=== PATIENT | female | born 1950 | race African-American/Black ===

== ENCOUNTER 2021-10-19 10:04 | Outpatient (CLI) | payer BC, SELFPAY | END 2021-10-19 10:05 | disposition home or self-care (01) | LOC: AMB 11-04 08:54 | PROVIDERS: Visit Provider Family Medicine | DX: S09.90XA Unspecified injury of head, initial encounter (principal); H53.8 Other visual disturbances; W06.XXXA Fall from bed, initial encounter; Y92.092 Bedroom in other non-institutional residence as the place of occurrence of the external cause | CPT/HCPCS: A0425; A0427 ==

== ENCOUNTER 2021-10-19 10:32 | Emergency (ER) | payer BC, SELFPAY ==
--- NOTE | 2021-10-19 | CRLHL7_ITS ---
For Patients: As a result of the Century Cures Act, medical imaging exams and procedure reports are released immediately into your electronic medical record. You may view this report before your referring provider. If you have questions, please contact your health care provider. INDICATION: FALL, HIT HEAD COMPARISON: none TECHNIQUE: A CT volumetric acquisition was performed of the brain without IV contrast. Please note that all CT scans at this facility use dose modulation, iterative reconstruction, and/or weight-based dosing when appropriate to reduce radiation dose to as low as reasonably achievable. FINDINGS: Scalp hematoma noted along the right posterior parietal skull. No underlying fracture. No intracranial hemorrhage. No hydrocephalus or midline shift. Mild patchy areas of decreased attenuation in the white matter, chronic. Vascular calcifications. Sinuses clear. Secretions in the posterior oropharynx. IMPRESSION: Right posterior scalp hematoma. No fracture or intracranial hemorrhage. Please note that all CT scans at this facility use dose modulation, iterative reconstruction, and/or weight-based dosing when appropriate to reduce radiation dose to as low as reasonably achievable. Dictated by Edward Sherwood MD @ 10/19/2021 11:17:13 AM (Electronically Signed)
--- NOTE | 2021-10-19 | CRLHL7_ITS ---
For Patients: As a result of the Century Cures Act, medical imaging exams and procedure reports are released immediately into your electronic medical record. You may view this report before your referring provider. If you have questions, please contact your health care provider. INDICATION: FALL, HIT Head TECHNIQUE: CT cervical spine without contrast. COMPARISON: None FINDINGS: There is no cervical vertebral body fracture. Multilevel degenerative disc disease and facet degeneration. Straightening of the normal lordosis. Normal C1-2 relationship. No cervical adenopathy or apical pneumothorax. IMPRESSION: No cervical spine fracture. Please note that all CT scans at this facility use dose modulation, iterative reconstruction, and/or weight-based dosing when appropriate to reduce radiation dose to as low as reasonably achievable. Dictated by Edward Sherwood MD @ 10/19/2021 11:25:33 AM (Electronically Signed)
[2021-10-19 10:50] VITALS: BP 182/108; PULSE 96; RESP 18; TEMP 36; O2SAT 96; BMI 36.9
[2021-10-19 10:55] VITALS: BP 142/96; PULSE 96; RESP 18; O2SAT 96
[2021-10-19 11:00] VITALS: BP 153/102; PULSE 92; RESP 18; O2SAT 96
[2021-10-19 11:15] VITALS: BP 156/105; PULSE 93; RESP 18; O2SAT 96
[2021-10-19 11:30] VITALS: BP 156/100; PULSE 86; RESP 18; O2SAT 96
[2021-10-19] MEDS: OxyCODONE/APAP 5-325 TABLET 2 TAB PO (11:52)
--- NOTE | 2021-10-19 11:56 | ED_ITS ---
HPI - Fall General Date Seen: 10/19/21 Chief Complaint: Fall/Minor Trauma Stated Complaint: Fall Time Seen by Provider: 10/19/21 10:46 Source: patient Mode of arrival: EMS Limitations: no limitations History of Present Illness HPI Narrative: Patient is a 71-year-old female from [place] fell or slipped out of her bed last night. At approximately 11:00 p.m.. Hitting right side of her head against a table. There is no loss of consciousness, and she did not want to be seen last night despite staff asking her to be seen. No loss of consciousness, but today there were worried about her pupils being unequal, and she has a little bit more tired than normal. She is brought in by EMS for an assessment. She denies that she is more tired than normal and actually just wants oxycodone here. For her pain in fact she told me she did get the oxycodone she was going to leave. She denies any numbness tingling weakness, there is no neck injury, complaint: fall Onset (ago): hour(s) Fall from: standing Fall witnessed: no Place fall occurred: [facility] Loss of consciousness: No Prolonged down time: no Symptoms prior to fall: none Context: tripped/slipped Location of injury: head Quality: stabbing Associated symptoms (after fall): denies Related Data Home Medications Medication Instructions Recorded Confirmed acetaminophen 500 mg tablet 500 mg PO Q8H 10/19/21 10/19/21 amlodipine 5 mg tablet 5 mg PO DAILY 10/19/21 10/19/21 aspirin 81 mg tablet,delayed 81 mg PO DAILY 10/19/21 10/19/21 release dorzolamide 22.3 mg-timolol 6.8 ophthalmic (eye) 10/19/21 mg/mL eye drops duloxetine 60 mg capsule,delayed mg PO 10/19/21 release famotidine 20 mg tablet mg 10/19/21 fluticasone propionate 50 intranasal 10/19/21 mcg/actuation nasal spray,suspension gabapentin 600 mg tablet mg 10/19/21 hydrochlorothiazide 25 mg tablet mg 10/19/21 insulin aspart U-100 100 unit/mL subcut 10/19/21 (3 mL) subcutaneous pen insulin glargine 100 unit/mL (3 unit subcut 08/02/22 mL) subcutaneous pen (Lantus Solostar U-100 Insulin) latanoprost 0.005 % eye drops drp ophthalmic (eye) 10/19/21 lorazepam 0.5 mg tablet mg 10/19/21 nicotine (polacrilex) 2 mg gum mg 10/19/21 oxybutynin chloride 5 mg mg PO 10/19/21 tablet,extended release 24 hr oxycodone 5 mg tablet mg 10/19/21 pantoprazole 40 mg tablet,delayed mg PO 10/19/21 release risperidone 2 mg tablet mg 10/19/21 Allergies Allergy/AdvReac Type Severity Reaction Status Date / Time aspirin Allergy Verified 10/19/21 10:44 bee venom protein (honey bee) Allergy Verified 10/19/21 10:44 ketorolac [From Toradol] Allergy Verified 10/19/21 10:44 losartan Allergy Verified 10/19/21 10:44 NSAIDS (Non-Steroidal Allergy Verified 10/19/21 10:44 Anti-Inflamma Penicillins Allergy Verified 10/19/21 10:44 tramadol Allergy Verified 10/19/21 10:44 varenicline Allergy Verified 10/19/21 10:44 Review of Systems Status of ROS: Reports: 10 or more systems reviewed and unremarkable except as noted in History and below [facility] Social History Smoking Status: Never smoker Do you use any of these nicotine containing products: None Second hand tobacco smoke exposure: No How often do you have a drink containing alcohol: never How often do you have six or more drinks on one occasion: Never AUDIT-C Alcohol total score: 0 Non-prescribed substance use: denies use service: No Exam Narrative: Exam Narrative: Patient is in no apparent distress lying in the room in stable 1. She is able to open her eyes and she clearly has had previous eye surgery/glaucoma surgery. Her left pupil is slightly bigger than her right, but both are reactive to light. Her TMs are normal, oropharynx is normal there is no midfacial tenderness. Her neck is supple full range of motion is listed in flexion extension with no tenderness she is however tender over her right septal region with hematoma noted. Within her Afro. Chest is clear heart sounds are normal she moves all extremities independently and well her thoracic and lumbar spine palpate normally but sitting her up causes her back pain which she has tells me is chronic. Abdomen is soft there is no guarding no past with no megaly she moves all extremities independently and well. Const: Vital Signs, click to edit/add: Vital Signs - 24 hr 10/19/21 10:50 10/19/21 11:00 10/19/21 11:15 Temperature 96.8 F L Pulse Rate [Left P ulse Oximeter] 96 92 93 Respiratory Rate 18 18 18 Blood Pressure [Le ft Upper Arm] 182/108 H 153/102 H 156/105 H Pulse Oximetry 96 96 96 Oxygen Delivery Me thod Room Air Room Air Room Air 10/19/21 11:30 10/19/21 10:55 Temperature Pulse Rate [Left P ulse Oximeter] 86 96 Respiratory Rate 18 18 Blood Pressure [Le ft Upper Arm] 156/100 H 142/96 H Pulse Oximetry 96 96 Oxygen Delivery Me thod Room Air Room Air Documenting provider has reviewed patient's vital signs: yes Course Vital Signs Vital signs: Initial Vital Signs Temperature 96.8 F L 10/19/21 10:50 Temperature Source Temporal Artery Scan 10/19/21 10:50 Pulse Rate 96 10/19/21 10:50 Pulse Rhythm 10/19/21 10:50 Pulse Strength 3+ Normal 10/19/21 10:50 Respiratory Rate 18 10/19/21 10:50 Blood Pressure 182/108 H 10/19/21 10:50 Blood Pressure Mean 132 10/19/21 10:50 Pulse Oximetry 96 10/19/21 10:50 Oxygen Delivery Method 10/19/21 10:50 Vital Signs Temperature 96.8 F L 10/19/21 10:50 Pulse Rate 96 10/19/21 10:50 Respiratory Rate 18 10/19/21 10:50 Blood Pressure 182/108 H 10/19/21 10:50 Pulse Oximetry 96 10/19/21 10:50 Oxygen Delivery Method 10/19/21 10:50 Temperature 96.8 F L 10/19/21 10:50 Pulse Rate 86 10/19/21 11:30 Respiratory Rate 18 10/19/21 11:30 Blood Pressure 156/100 H 10/19/21 11:30 Pulse Oximetry 96 10/19/21 11:30 Oxygen Delivery Method 10/19/21 11:30 MDM - Fall MDM Narrative Medical decision making narrative: Patient is seen for a head injury, injury now is at least 12 hours old. She is doing otherwise well. Her head CT look normal. I did consider other possibilit ies Life-threatening differential diagnosis is considered include: Subarachnoid hemorrhage, subdural hemorrhage, epidural hemorrhage. Other differential diagnosis considered include concussion, closed head injury, or neck fracture. These seem all stable at this present time we can discharge her back to her living facility, Medical Records Attestation: I reviewed the patient's medical records. Lab Data Attestation: I reviewed the patient's lab results. Imaging Data CT scan - head: My impression: No acute Radiologist's impression: Patient: EMILEE GALVEZ Facility:?[facility] Patient ID:?[id number] Site Patient ID:?[id number]. Site :?[id number] Study:?CT Spine Cervical W/O-10/19/2021 10:48:45 AM Ordering Physician:Gayla Thompson Final Report: INDICATION: FALL, HIT Head TECHNIQUE: CT cervical spine without contrast. COMPARISON: None FINDINGS: There is no cervical vertebral body fracture. Multilevel degenerative disc disease and facet degeneration. Straightening of the normal lordosis. Normal C1- 2 relationship. No cervical adenopathy or apical pneumothorax. IMPRESSION: No cervical spine fracture. Please note that all CT scans at this facility use dose modulation, iterative reconstruction, and/or weight-based dosing when appropriate to reduce radiation dose to as low as reasonably achievable. Dictated by Edward Sherwood MD @ 10/19/2021 11:25:33 AM (Electronic Signature) Patient: EMILEE GALVEZ Facility:?[facility] Patient ID:?[id number] Site Patient ID:?[id number]. Site :?[id number] Study:?CT Head W/O-10/19/2021 10:49:42 AM Ordering Physician:?Sonny Thompson Final Report: INDICATION: FALL, HIT HEAD COMPARISON: none TECHNIQUE: A CT volumetric acquisition was performed of the brain without IV contrast. Please note that all CT scans at this facility use dose modulation, iterative reconstruction, and/or weight-based dosing when appropriate to reduce radiation dose to as low as reasonably achievable. FINDINGS: Scalp hematoma noted along the right posterior parietal skull. No underlying fracture. No intracranial hemorrhage. No hydrocephalus or midline shift. Mild patchy areas of decreased attenuation in the white matter, chronic. Vascular calcifications. Sinuses clear. Secretions in the posterior oropharynx. IMPRESSION: Right posterior scalp hematoma. No fracture or intracranial hemorrhage. Please note that all CT scans at this facility use dose modulation, iterative reconstruction, and/or weight-based dosing when appropriate to reduce radiation dose to as low as reasonably achievable. Dictated by Edward Sherwood MD @ 10/19/2021 11:17:13 AM (Electronic Signature) Discharge Plan Discharge Clinical Impression: Hematoma Chronic back pain Qualifiers: Back pain location: low back pain Back pain laterality: unspecified Sciatica presence: unspecified whether sciatica present Qualified Code(s): M54.50 - Low back pain, unspecified Head injury Qualifiers: Encounter type: initial encounter Qualified Code(s): S09.90XA - Unspecified injury of head, initial encounter Patient Disposition: Home w/ Parent or Adult Condition: Stable Additional Instructions: Home rest discussed with patient CT scan was normal. Continue with normal activities, be careful, ice to head, Tylenol for discomfort, follow up as needed. Prescriptions: No Action acetaminophen 500 mg tablet 500 mg PO Q8H amlodipine 5 mg tablet 5 mg PO DAILY aspirin 81 mg tablet,delayed release (DR/EC) 81 mg PO DAILY latanoprost 0.005 % drops OPHTHALMIC (EYE) gabapentin 600 mg tablet nicotine (polacrilex) 2 mg gum risperidone 2 mg tablet famotidine 20 mg tablet lorazepam 0.5 mg tablet pantoprazole 40 mg tablet,delayed release (DR/EC) PO oxybutynin chloride 5 mg tablet extended release 24 hr PO dorzolamide-timolol 22.3-6.8 mg/mL drops OPHTHALMIC (EYE) hydrochlorothiazide 25 mg tablet fluticasone propionate 50 mcg/actuation spray,suspension INTRANASAL oxycodone 5 mg tablet insulin aspart U-100 100 unit/mL (3 mL) insulin pen SUBCUT duloxetine 60 mg capsule,delayed release(DR/EC) PO insulin glargine [Lantus Solostar U-100 Insulin] 100 unit/mL (3 mL) insulin pen SUBCUT Stand Alone Forms: [facility] Info Instructions
== END 2021-10-19 12:03 | disposition home or self-care (01) ==
LOC: ED 12:02
PROVIDERS: Emergency Provider Family Medicine
DX: S00.93XA Contusion of unspecified part of head, initial encounter (principal); M54.50 Low back pain, unspecified; W18.00XA Striking against unspecified object with subsequent fall, initial encounter
CPT/HCPCS: 70450; 72125; 99284; 99291; A9270; G0390

== ENCOUNTER 2021-12-09 19:14 | Outpatient (CLI) | payer BC, SELFPAY | END 2021-12-09 19:15 | disposition home or self-care (01) | LOC: AMB 01-07 10:26 | PROVIDERS: Visit Provider Family Medicine | DX: G89.29 Other chronic pain (principal); M54.9 Dorsalgia, unspecified | CPT/HCPCS: A0425; A0429 ==

== ENCOUNTER 2021-12-09 19:31 | Emergency (ER) | payer BC, SELFPAY ==
[2021-12-09 19:47] VITALS: BP 118/66; PULSE 94; RESP 20; O2SAT 99
[2021-12-09 20:47] VITALS: RESP 18; O2SAT 99
--- NOTE | 2021-12-09 21:06 | ED.BACK ---
HPI - Back Pain/Injury General Date Seen: 12/09/21 Chief Complaint: Unspecified Complaint, Adult Stated Complaint: Pain Time Seen by Provider: 12/09/21 19:56 Source: patient Mode of arrival: EMS Limitations: no limitations History of Present Illness HPI Narrative: Patient is the resident [facility] suffers from chronic pain, she has been out of her oxycodone now for 2 days, she presents here for help in regards to her pain. Her her doctor never called her prescription in. In checking the [facility] website she got 30 tablets of oxycodone last on 11/05/2021. She denies any nausea vomiting, there has been no abdominal pain, chest pain, fevers chills, no history of falls or injury, MD elicited complaint: back pain Pertinent past history: prior back pain Related Data Home Medications Medication Instructions Recorded Confirmed acetaminophen 500 mg tablet 500 mg PO Q8H 10/19/21 10/19/21 amlodipine 5 mg tablet 5 mg PO DAILY 10/19/21 10/19/21 aspirin 81 mg tablet,delayed 81 mg PO DAILY 10/19/21 10/19/21 release dorzolamide 22.3 mg-timolol 6.8 ophthalmic (eye) 10/19/21 mg/mL eye drops duloxetine 60 mg capsule,delayed mg PO 10/19/21 release famotidine 20 mg tablet mg 10/19/21 fluticasone propionate 50 intranasal 10/19/21 mcg/actuation nasal spray,suspension gabapentin 600 mg tablet mg 10/19/21 hydrochlorothiazide 25 mg tablet mg 10/19/21 insulin aspart U-100 100 unit/mL subcut 10/19/21 (3 mL) subcutaneous pen insulin glargine 100 unit/mL (3 unit subcut 10/19/21 mL) subcutaneous pen (Lantus Solostar U-100 Insulin) latanoprost 0.005 % eye drops drp ophthalmic (eye) 10/19/21 lorazepam 0.5 mg tablet mg 10/19/21 nicotine (polacrilex) 2 mg gum mg 10/19/21 oxybutynin chloride 5 mg mg PO 10/19/21 tablet,extended release 24 hr oxycodone 5 mg tablet mg 10/19/21 pantoprazole 40 mg tablet,delayed mg PO 10/19/21 release risperidone 2 mg tablet mg 10/19/21 Allergies Allergy/AdvReac Type Severity Reaction Status Date / Time aspirin Allergy Verified 12/09/21 19:50 bee venom protein (honey bee) Allergy Verified 12/09/21 19:50 ketorolac [From Toradol] Allergy Verified 12/09/21 19:50 losartan Allergy Verified 12/09/21 19:50 NSAIDS (Non-Steroidal Allergy Verified 12/09/21 19:50 Anti-Inflamma Penicillins Allergy Verified 12/09/21 19:50 tramadol Allergy Verified 12/09/21 19:50 varenicline Allergy Verified 12/09/21 19:50 Review of Systems Status of ROS: Reports: 6 or more systems reviewed and unremarkable except as noted in History and below [facility] Social History Smoking Status: Never smoker Do you use any of these nicotine containing products: None Second hand tobacco smoke exposure: No How often do you have a drink containing alcohol: never How often do you have six or more drinks on one occasion: Never AUDIT-C Alcohol total score: 0 Non-prescribed substance use: denies use service: No Exam Narrative: Exam Narrative: I find her laying in room 2 on her side, nontoxic, no apparent distress. her leg extensions normal, her back is nontender to palpation, she has a large abdomen but it is nontender. She moves lower legs normally, dorsiflexion plantar flexion of feet are normal, she has normal muscle bulk bilaterally in her sensation is normal. Had a long discussion with her that I could not prescribe her narcotic medication, but I would give her Tylenol, I do note in the chart that she is allergic to NSAIDs. She was grateful in took the Tylenol. Const: Vital Signs, click to edit/add: Vital Signs - 24 hr 12/09/21 19:47 12/09/21 21:08 12/09/21 20:47 Temperature 97.6 F Pulse Rate [Left] 94 Respiratory Rate 20 Respiratory Rate [ Back] 18 Blood Pressure [Le ft Upper Arm] 118/66 Pulse Oximetry 99 Oxygen Delivery Me thod Room Air 12/09/21 21:16 Temperature 97.6 F Pulse Rate [Left] 89 Respiratory Rate 20 Respiratory Rate [ Back] Blood Pressure [Le ft Upper Arm] 120/74 Pulse Oximetry 99 Oxygen Delivery Me thod Room Air Course Vital Signs Vital signs: Initial Vital Signs Pulse Rate 94 12/09/21 19:47 Pulse Rhythm 12/09/21 19:47 Respiratory Rate 20 12/09/21 19:47 Blood Pressure 118/66 12/09/21 19:47 Blood Pressure Mean 83 12/09/21 19:47 Blood Pressure Position Sitting 12/09/21 19:47 Pulse Oximetry 99 12/09/21 19:47 Oxygen Delivery Method 12/09/21 19:47 Vital Signs Pulse Rate 94 12/09/21 19:47 Respiratory Rate 20 12/09/21 19:47 Blood Pressure 118/66 12/09/21 19:47 Pulse Oximetry 99 12/09/21 19:47 Oxygen Delivery Method 12/09/21 19:47 Temperature 97.6 F 12/09/21 21:16 Pulse Rate 89 12/09/21 21:16 Respiratory Rate 12/09/21 21:16 Blood Pressure 120/74 12/09/21 21:16 Pulse Oximetry 99 12/09/21 21:16 Oxygen Delivery Method 12/09/21 21:16 MDM - Back Pain/Injury MDM Narrative Medical decision making narrative: Life-threatening differential diagnosis considered include: Cauda equina an epidural abscess, other differential diagnosis considered includes sprain, contusion, nerve root entrapment, radiculopathy, muscle spasm, urolithiasis, lumbar fracture, pyelonephritis, appendicitis, biliary colic, as well as other etiologies. The patient denies saddle anesthesia bowel or bladder incontinence or lower extremity weakness, recent weight loss, or history of malignancy. Medical Records Attestation: I reviewed the patient's medical records. Discharge Plan Discharge Clinical Impression: Chronic back pain Patient Disposition: Home w/ Parent or Adult Condition: Stable Instructions: Chronic Back Pain (DC) Additional Instructions: Home rest I recommend to contact her doctor tomorrow for your ongoing prescriptions, we cannot help you with those in the emergency room. Prescriptions: No Action acetaminophen 500 mg tablet 500 mg PO Q8H amlodipine 5 mg tablet 5 mg PO DAILY aspirin 81 mg tablet,delayed release (DR/EC) 81 mg PO DAILY latanoprost 0.005 % drops OPHTHALMIC (EYE) gabapentin 600 mg tablet nicotine (polacrilex) 2 mg gum risperidone 2 mg tablet famotidine 20 mg tablet lorazepam 0.5 mg tablet pantoprazole 40 mg tablet,delayed release (DR/EC) PO oxybutynin chloride 5 mg tablet extended release 24 hr PO dorzolamide-timolol 22.3-6.8 mg/mL drops OPHTHALMIC (EYE) hydrochlorothiazide 25 mg tablet fluticasone propionate 50 mcg/actuation spray,suspension INTRANASAL oxycodone 5 mg tablet insulin aspart U-100 100 unit/mL (3 mL) insulin pen SUBCUT duloxetine 60 mg capsule,delayed release(DR/EC) PO insulin glargine [Lantus Solostar U-100 Insulin] 100 unit/mL (3 mL) insulin pen SUBCUT Follow Up/Referrals: Provider,Not a Local [Primary Care Provider] - Stand Alone Forms: [facility] Info Instructions
[2021-12-09 21:08] VITALS: TEMP 36.4
[2021-12-09] MEDS: ACETAMINOPHEN 325 MG TABLET 650 MG PO (21:08)
[2021-12-09 21:16] VITALS: BP 120/74; PULSE 89; RESP 20; TEMP 36.4; O2SAT 99
--- OUTSIDE RECORDS SUMMARY | 2021-12-09 21:23 | XMS_ITS | Encounter Summary ---
:1950 Author Organization [facility] Address [address] [place] [address] Care Team Providers Name Role Phone Sebastian Griffiths MD Primary Care Provider Reason for Visit Reason Onset Date Comments Diabetic supplies 08/05/2021 Encounter Details Date Type Department Care Team Description 08/05/2021 Telephone [facility] Sebastian Griffiths MD Diabetic supplies [address] [facility] [address] [place] [id number] [place] [address] [phone] (Wo rk) Social History Tobacco Use Types Packs/Day Years Used Date Current Some Day Smoker Cigarettes 0.25 40 Quit : 04/20/2020 Smokeless Tobacco: Never Used Alcohol Use Standard Drinks/Week Comments Not Currently 0 (1 standard drink = 0.6 oz pure alcoho l) Alcohol Habits Answer Date Recorded How often do you have a drink containing alcohol? Never 06/23/2020 How many drinks containing alcohol do you have on a typical Not asked day when you are drinking? How often do you have six or more drinks on one occasion? Ne paul 06/23/2020 Comment: Not asked Social Isolation Answer Date Recorded In a typical week, how many times do you More than three ivette es a week 05/18/2020 talk on the phone with family, friends, or neighbors? How often do you get together with friends Twice a week 05/18/2020 or relatives? How often do you attend restoration or Never 2020 mandaen services? Do you belong to any clubs or No 05/18/2020 organizations such as restoration groups, unions, fraternal or athletic groups, or school groups? How often do you attend meetings of the Never 05/18/2020 clubs or organizations you belong to? Are you now , , , 05/18/2020 , never or living with a partner? Stress Answer Date Recorded Do you feel stress - tense, restless, nervous, or anxious, R ather much 05/18/2020 or unable to sleep at night because your mind is troubled all the time - these days? Financial Resource Strain Answer Date Recorded How hard is it for you to pay for the very basics like Not h johnathan at all 06/23/2020 food, housing, medical care, and heating? Intimate Partner Violence Answer Date Recorded Within the last year, have you been afraid of your partner o r No 05/18/2020 ex-partner? Within the last year, have you been humiliated or emotionall y No 05/18/2020 abused in other ways by your partner or ex-partner? Within the last year, have you been kicked, hit, slapped, or No 05/18/2020 otherwise physically hurt by your partner or ex-partner? Within the last year, have you been raped or forced to have any No 05/18/2020 kind of sexual activity by your partner or ex-partner? Food Insecurity Answer Date Recorded Within the past 12 months, you worried that your food would Never true 06/23/2020 run out before you got money to buy more. Within the past 12 months, the food you bought just didn't N ever true 06/23/2020 last and you didn't have money to get more. Transportation Needs Answer Date Recorded In the past 12 months, has lack of transportation kept you f rom No 06/23/2020 medical appointments or from getting medications? In the past 12 months, has lack of transportation kept you f rom No 06/23/2020 meetings, work, or getting things needed for daily living? Education Answer Date Recorded What is the highest level of school you have High school gra maura 05/18/2020 completed or the highest degree you have received? Sex Assigned at Date Recorded Not on file COVID-19 Exposure Response Date Recorded In the last month, have you been in contact with No / Unsure 07/14/2021 11:27 AM CDT someone who was confirmed or suspected to have Coronavirus / COVID-19? documented as of this encounter Miscellaneous Notes Telephone Encounter - Tae Livingston RN - 08/05/2021 8:14 AM CDT Received a fax from [facility] pharmacy requesting a switch to [employer] or [employer] preferred products for a $0 copay. RX's pended for provider review. documented in this encounter Plan of Treatment Upcoming Encounters Date Type Specialty Care Team Description 01/18/2022 Telemedicine Family Medicine Sebastian Griffiths MD [address] [place], [place] [address] (Wo rk) documented as of this encounter Visit Diagnoses Diagnosis Type II diabetes mellitus with periphera l circulatory disorder (HCC) Type II or unspecified type diabetes giuseppe litus with peripheral circulatory disorders, not stated as uncontrolled Uncontrolled type 2 diabetes mellitus wi th hyperglycemia (HCC) documented in this encounter Care Teams Stock Fitter Relationship Specialty Start Date End Date Sebastian Griffiths MD PCP - General 10/24/[address] [place] [id number] documented as of this encounter
--- OUTSIDE RECORDS SUMMARY | 2021-12-09 21:23 | XMS_ITS | Encounter Summary ---
:[address] [facility] Address [address] [place] [address] Care Team Providers Name Role Phone Sebastian Griffiths MD Primary Care Provider Reason for Visit Reason Comments Med Refill Encounter Details Date Type Department Care Team Description 07/14/2021 Refill SE Family Med Sebastian Griffiths MD Chronic pain syndrome [address] [facility] [address] [place] [address] [place] [address] [phone] (Wo rk) Social History Tobacco Use Types [...] or relatives? How often do you attend evangelical or Never 2020 sikhism services? Do you belong to any clubs or No 05/18/2020 organizations such as evangelical groups, unions, fraternal or athletic groups, or [...] this encounter Miscellaneous Notes Telephone Encounter - Guillermina Moran MA - 07/14/2021 1:52 PM CDT Requested Prescriptions Pending Prescriptions Disp Refills ??? oxyCODONE (ROXICODONE) 5 MG immediate release tablet [Pharmacy Med Name: oxyCODONE HCl 5 MG Tablet] 180 tablet 0 Sig: TAKE 2 TABLETS BY MOUTH EVERY 6 HOURS NEEDED FOR MODERATE PAIN NOT TO EXCEED 6 TABS PER DAY E-Prescribing Status oxyCODONE (ROXICODONE) 5 MG immediate release tablet Sig: Take 2 tablets (10 mg total) by mouth every 6 (six) hours if needed for moderate pain May take every 6 hours but still only 6 tabs total per day. Sent to pharmacy as: oxyCODONE HCl 5 MG Oral Tablet (ROXICODONE) Class: Normal Earliest Fill Date: 07/09/2021 Route: Oral E-Prescribing Status: Receipt confirmed by pharmacy (07/06/2021 10:46 AM CDT) documented in this encounter Plan of Treatment Upcoming Encounters Date Type Specialty Care Team Description 01/18/2022 Telemedicine Family Medicine Sebastian Griffiths MD [address] [place] [phone] (Wo rk) documented as of this encounter Visit Diagnoses Diagnosis Chronic pain syndrome documented in this encounter Care Teams Rattling Machine Tender Relationship Specialty Start Date End Date Sebastian Griffiths MD PCP - General 10/24/[address] [place] [phone] documented as of this encounter
--- OUTSIDE RECORDS SUMMARY | 2021-12-09 21:23 | XMS_ITS | Encounter Summary ---
:[address] [facility] Address [address] [place] [address] Care Team Providers Name Role Phone Sebastian Griffiths MD Primary Care Provider Encounter Details Date Type Department Care Team Description 10/18/2021 Orders Only SE Family Med Sebastian Griffiths MD [address] [facility] [address] [place] [address] [place], [place] [phone] (Wo rk) Social History Tobacco Use Types [...] or relatives? How often do you attend jainism or Never 2020 orthodoxy services? Do you belong to any clubs or No 05/18/2020 organizations such as jainism groups, unions, fraternal or athletic groups, or [...] of school you have High school gra duate 05/18/2020 completed or the highest degree you have received? 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
--- OUTSIDE RECORDS SUMMARY | 2021-12-09 21:23 | XMS_ITS | Encounter Summary ---
:1950 Author Organization [facility] Address [address] [place] [address] Care Team Providers Name Role Phone Sebastian Griffiths MD Primary Care Provider Reason for Visit Reason Onset Date Comments Med Refill 08/26/2021 Encounter Details Date Type Department Care Team Description 08/26/2021 Refill SE Family Med Sebastian Griffiths MD Dry eyes, bilateral [address] [facility] [address] [place] [address] [place] [address] [phone] (Wo rk) Social History Tobacco Use Types [...] or relatives? How often do you attend cheondoism or Never 2020 mosque services? Do you belong to any clubs or No 05/18/2020 organizations such as cheondoism groups, unions, fraternal or athletic groups, or [...] on file documented as of this encounter Miscellaneous Notes Telephone Encounter - Amanda Parkinson RN - 08/26/2021 3:20 PM CDT Last seen 07/06/21. Has follow up scheduled 10/19/21. Telephone Encounter - Marquita Misha - 08/26/2021 2:38 PM CDT Pt called and has very dry eyes and is wanting her PCP to send a script to the pharmacy for it. [facility] [place] documented in this encounter Plan of Treatment Upcoming Encounters Date Type Specialty Care Team Description 01/18/2022 Telemedicine Family Medicine Sebastian Griffiths MD [address] [place] [phone] (Wo rk) documented as of this encounter Visit Diagnoses Diagnosis Dry eyes, bilateral documented in this encounter Care Teams Brick Offbearer Relationship Specialty Start Date End Date Sebastian Griffiths MD PCP - General 10/24/[address] [place] [phone] documented as of this encounter
--- OUTSIDE RECORDS SUMMARY | 2021-12-09 21:23 | XMS_ITS | Encounter Summary ---
:1950 Author Organization [facility] Address [address] [place] [address] Care Team Providers Name Role Phone Sebastian Griffiths MD Primary Care Provider Reason for Visit Reason Onset Date Comments refill 12/09/2021 Encounter Details Date Type Department Care Team Description 12/09/2021 Telephone [facility] Sebastian Griffiths MD refill [address] [facility] [address] [place] [address] [place] [address] [phone] (Wo rk) Social History Tobacco Use Types [...] or relatives? How often do you attend nondenominational or Never 2020 orthodoxy services? Do you belong to any clubs or No 05/18/2020 organizations such as nondenominational groups, unions, fraternal or athletic groups, or [...] Telephone Encounter - Amanda Parkinson RN - 12/09/2021 4:50 PM CDT Duplicate request. Telephone Encounter - Tia Mery Liang - 12/09/2021 9:38 AM CDT Pt is needing refill. Please advise. oxyCODONE (ROXICODONE) 5 MG immediate release tablet documented in this encounter Plan of Treatment Upcoming Encounters Date Type Specialty Care Team Description 01/18/2022 Telemedicine Family Medicine Sebastian Griffiths MD [address] [place], [place] [phone] (Wo rk) documented as of this encounter Visit Diagnoses Not on filedocumented in this encounter Care Teams Sole Stapler Welt Relationship Specialty Start Date End Date Sebastian Griffiths MD PCP - General 10/24/[address] [place] [phone] documented as of this encounter
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
--- OUTSIDE RECORDS SUMMARY | 2021-12-09 21:23 | XMS_ITS | Encounter Summary ---
:[address] [facility] Address [address] [place] [address] Care Team Providers Name Role Phone Sebastian Griffiths MD Primary Care Provider Reason for Visit Reason Onset Date Comments fax 11/01/2021 Encounter Details Date Type Department Care Team Description 11/01/2021 Telephone [facility] Sebastian Griffiths MD fax [address] [facility] [address] [place] [address] [place] [address] [phone] (Wo rk) Social History Tobacco Use Types [...] or relatives? How often do you attend alevism or Never 2020 jehovah's witness services? Do you belong to any clubs or No 05/18/2020 organizations such as alevism groups, unions, fraternal or athletic groups, or [...] Telephone Encounter - Tae Livingston RN - 11/16/2021 9:50 AM CDT Apt for 11/16/2021 was cancelled due to provider being out of the office. Form initiated and placed in provider's office in basket to review to have ready for next appointment when rescheduled. Telephone Encounter - Suraj Chacon - 11/11/2021 8:52 AM CDT Michael Staples called trying to check the status of this form. Please call. Michael Staples back at [phone] option number 3 This needs to be done so the patient can be seen on 11/16/2021. Please advise Telephone Encounter - iTa Jasmine - 11/01/2021 12:51 PM CDT Michael Staples called stating pts insurance company faxed a form for Dr. Griffiths to fill out and fax back for approval for ride for appt on 11/16. Please advise. documented in this encounter Plan of Treatment Upcoming Encounters Date Type Specialty Care Team Description 01/18/2022 Telemedicine Family Medicine Sebastian Griffiths MD [address] [place], [place] [phone] (Wo rk) documented as of this encounter Visit Diagnoses Not on filedocumented in this encounter Care Teams Field Services Manager Relationship Specialty Start Date End Date Sebastian Griffiths MD PCP - General 10/24/17 [address] [place] [address] documented as of this encounter
--- OUTSIDE RECORDS SUMMARY | 2021-12-09 21:23 | XMS_ITS | Encounter Summary ---
:1950 Author Organization [facility] Address [address] [place] [address] Care Team Providers Name Role Phone Sebastian Griffiths MD Primary Care Provider Reason for Visit Reason Onset Date Comments Med Refill 09/23/2021 Encounter Details Date Type Department Care Team Description 09/23/2021 Refill [facility] Sebastian Griffiths MD Insomnia, unspecified [address] [facility] [address] [place] [address] [place] [address] [phone] (Wo rk) Social History Tobacco Use Types [...] or relatives? How often do you attend scientology or Never 2020 church services? Do you belong to any clubs or No 05/18/2020 organizations such as scientology groups, unions, fraternal or athletic groups, or [...] this encounter Miscellaneous Notes Telephone Encounter - Catherine Frank LPN - 09/23/2021 1:27 PM CDT Last visit in provider department: 07/06/2021 Last visit requested medication was discussed:07/06/21 Last Rx: 04/13/21 #30 with 5 refills Requested Prescriptions Pending Prescriptions Disp Refills ??? zolpidem (AMBIEN) 5 MG tablet 30 tablet 5 Sig: TAKE ONE TABLET BY MOUTH EVERY DAY AT BEDTIME Labs: Vitals: BP Readings from Last 2 Encounters: 07/14/21 127/67 06/01/21 126/74 Upcoming appointment with provider: 10/19/2021 documented in this encounter Plan of Treatment Upcoming Encounters Date Type Specialty Care Team Description 01/18/2022 Telemedicine Family Medicine Sebastian Griffiths MD [address] [place], [place] [phone] (Wo rk) documented as of this encounter Visit Diagnoses Diagnosis Insomnia, unspecified type documented in this encounter Care Teams College Administrator Relationship Specialty Start Date End Date Sebastian Griffiths MD PCP - General 10/24/[address] [place] [id number] documented as of this encounter
--- OUTSIDE RECORDS SUMMARY | 2021-12-09 21:23 | XMS_ITS | Encounter Summary ---
:1950 Author Organization [facility] Address [address] [place] [address] Care Team Providers Name Role Phone Sebastian Griffiths MD Primary Care Provider Reason for Visit Reason Comments Med Refill Encounter Details Date Type Department Care Team Description 12/07/2021 Refill SE Family Med Sebastian Griffiths MD Allergic rhinitis, [address] [facility] [address] unspecified seasonality, [place] [address] [place] [address] unspecified trigger [phone] (Wo rk) Social History Tobacco Use Types [...] or relatives? How often do you attend yazdanism or Never 2020 moravian services? Do you belong to any clubs or No 05/18/2020 organizations such as yazdanism groups, unions, fraternal or athletic groups, or [...] Telephone Encounter - Catherine Frank LPN - 12/08/2021 10:22 AM CDT Last visit in provider department: 07/06/21 Last visit requested medication was discussed:07/06/21 Last Rx: Cetirizine HCl 10 MG capsule 12/03/20 #30 with 2 refills Aspirin Low Dose 81 MG EC tablet 07/06/21 Historical Requested Prescriptions Pending Prescriptions Disp Refills ??? Aspirin Low Dose 81 MG EC tablet [Pharmacy Med Name: Aspirin Low Dose 81 MG Tablet delayed release] 28 tablet 12 Sig: TAKE 1 TABLET BY MOUTH DAILY ??? Cetirizine HCl 10 MG capsule 30 capsule 2 Sig: Take 10 mg by mouth 1 (one) time each day if needed (aLLERGIES) Labs: Component Latest Ref Rng & Units 06/01/2021 Fasting? No Sodium 135 - 145 mEq/L 139 Potassium 3.5 - 5.1 mEq/L 3.9 Chloride 98 - 107 mEq/L 99 CO2 22 - 29 mmol/L 31 (H) BUN 5 - 25 mg/dL 10 Creatinine 0.4 - 1.2 mg/dL 0.9 Glucose 70 - 100 mg/dL 151 (H) Calcium, Total,S 8.4 - 10.2 mg/dL 10.1 Vitals: BP Readings from Last 2 Encounters: 07/14/21 127/67 06/01/21 126/74 Upcoming appointment with provider: 01/18/2022 documented in this encounter Plan of Treatment Upcoming Encounters Date Type Specialty Care Team Description 01/18/2022 Telemedicine Family Medicine Sebastian Griffiths MD [address] [place] [phone] (Wo rk) documented as of this encounter Visit Diagnoses Diagnosis Allergic rhinitis, unspecified seasonali ty, unspecified trigger documented in this encounter Care Teams Solvent Station Attendant Relationship Specialty Start Date End Date Sebastian Griffiths MD PCP - General 10/24/[address] [place] [phone] documented as of this encounter
--- OUTSIDE RECORDS SUMMARY | 2021-12-09 21:23 | XMS_ITS | Encounter Summary ---
:[address] [facility] Address [address] [place] [address] Care Team Providers Name Role Phone Sebastian Griffiths MD Primary Care Provider Reason for Visit Reason Onset Date Comments Med Refill 11/05/2021 Encounter Details Date Type Department Care Team Description 11/05/2021 Refill SE Family Med Sebastian Griffiths MD Chronic pain syndrome [address] [facility] [address] [place] [address] [place] [address] [phone] (Wo rk) Social History Tobacco Use Types [...] or relatives? How often do you attend adventist or Never 2020 shinto services? Do you belong to any clubs or No 05/18/2020 organizations such as adventist groups, unions, fraternal or athletic groups, or [...] of school you have High school [employer] 05/18/2020 completed or the highest degree you have received? Sex Assigned at Date Recorded Not on file documented as of this encounter Miscellaneous Notes Telephone Encounter - Tamie Shore MA - 11/05/2021 7:14 AM CDT Last visit in provider department: 07/06/2021 Last visit requested medication was discussed: 07/06/2021 Last Rx: oxyCODONE (ROXICODONE) 5 MG immediate release tablet #180 with no refills 09/30/2021 Requested Prescriptions Pending Prescriptions Disp Refills ??? oxyCODONE (ROXICODONE) 5 MG immediate release tablet 180 tablet 0 Sig: Take 2 tablets (10 mg total) by mouth every 8 (eight) hours CSA was last signed on 01/25/2021 Labs: No RUDS found No pending lab found. Vitals: BP Readings from Last 2 Encounters: 07/14/21 127/67 06/01/21 126/74 Upcoming appointment with provider: 11/16/2021 documented in this encounter Plan of Treatment Upcoming Encounters Date Type Specialty Care Team Description 01/18/2022 Telemedicine Family Medicine Sebastian Griffiths MD [address] [place] [phone] (Wo rk) documented as of this encounter Visit Diagnoses Diagnosis Chronic pain syndrome documented in this encounter Care Teams Ice Cream Freezer Assistant Relationship Specialty Start Date End Date Sebastian Griffiths MD PCP - General 10/24/[address] [place] [address] [phone] documented as of this encounter
--- OUTSIDE RECORDS SUMMARY | 2021-12-09 21:23 | XMS_ITS | Encounter Summary ---
:1950 Author Organization [facility] Address [address] [place] [address] Care Team Providers Name Role Phone Sebastian Griffiths MD Primary Care Provider Reason for Visit Reason Comments Med Refill Encounter Details Date Type Department Care Team Description 12/09/2021 Refill SE Family Med Sebastian Girffiths MD Chronic pain syndrome [address] [facility] [address] [place] [address] [place] [address] [phone] (Wo rk) Social History Tobacco Use Types [...] or relatives? How often do you attend mandaen or Never 2020 christian services? Do you belong to any clubs or No 05/18/2020 organizations such as mandaen groups, unions, fraternal or athletic groups, or [...] Telephone Encounter - Tamie Shore MA - 12/09/2021 2:35 PM CDT Last visit in provider department: 07/06/2021 Last visit requested medication was discussed: 07/06/2021 Last Rx: oxyCODONE (ROXICODONE) 5 MG immediate release tablet #180 with no refills 11/05/2021 Requested Prescriptions Pending Prescriptions Disp Refills ??? oxyCODONE (ROXICODONE) 5 MG immediate release tablet [Pharmacy Med Name: oxyCODONE HCl 5 MG Tablet] 180 tablet 0 Sig: TAKE 2 TABLETS BY MOUTH EVERY 8 HOURS CSA was last signed on 01/25/2021 Labs: No RUDS found. No pending lab found. Vitals: BP Readings from Last 2 Encounters: 07/14/21 127/67 06/01/21 126/74 Upcoming appointment with provider: 12/09/2021 documented in this encounter Plan of Treatment Upcoming Encounters Date Type Specialty Care Team Description 01/18/2022 Telemedicine Family Medicine Sebastian Griffiths MD [address] [place] [phone] (Wo rk) documented as of this encounter Visit Diagnoses Diagnosis Chronic pain syndrome documented in this encounter Care Teams Adult Probation Officer Relationship Specialty Start Date End Date Sebastian Griffiths MD PCP - General 10/24/[address] [place] [address] [phone] documented as of this encounter
--- OUTSIDE RECORDS SUMMARY | 2021-12-09 21:23 | XMS_ITS | Encounter Summary ---
:1950 Author Organization [facility] Address [address] [place] [address] Care Team Providers Name Role Phone Sebastian Griffiths MD Primary Care Provider Reason for Visit Reason Onset Date Comments Med Refill 09/05/2021 Encounter Details Date Type Department Care Team Description 09/05/2021 Refill SE Family Med Sebastian Griffiths MD Allergic conjunctivitis, unspecified lat erality; [address] Uncontrolled type 2 diabetes mellitus wi th hyperglycemia (HCC) [place] [address] [place] [address] [phone] (Wo rk) Social History Tobacco Use Types [...] or relatives? How often do you attend mormonism or Never 2020 gnosticism services? Do you belong to any clubs or No 05/18/2020 organizations such as mormonism groups, unions, fraternal or athletic groups, or [...] this encounter Miscellaneous Notes Telephone Encounter - Mandi Kwon MA - 09/05/2021 10:28 AM CDT Duplicate request Renewal sent 08/25/2021 #300 +[address] Griffiths to requesting pharmacy Insulin Pen Needle (NovoFine Autocover Pen Needle) 30G X 8 MM misc Sig: USE THREE TIMES DAILY WITH INSULIN Sent to pharmacy as: NovoFine Autocover Pen Needle 30G X 8 MM (Insulin Pen Needle) Class: Normal Notes to Pharmacy: Patient on insulin: Yes ??A1C: HGBA1C (% A1C) ??06/01/2021 ??8.2 (H) ??Last FTF: ??07/06/2021. ??Brand: Novofine E-Prescribing Status: Receipt confirmed by pharmacy (08/25/2021 ??4:55 PM CDT) Pharmacy [facility] - [address] documented in this encounter Plan of Treatment Upcoming Encounters Date Type Specialty Care Team Description 01/18/2022 Telemedicine Family Medicine Sebastian Griffiths MD [address] [place], [place] [phone] (Wo rk) documented as of this encounter Visit Diagnoses Diagnosis Allergic conjunctivitis, unspecified lat erality Uncontrolled type 2 diabetes mellitus wi th hyperglycemia (HCC) documented in this encounter Care Teams Windows Application Packager Relationship Specialty Start Date End Date Sebastian Griffiths MD PCP - General 10/24/17 [address] [place], [place] [phone] documented as of this encounter
--- OUTSIDE RECORDS SUMMARY | 2021-12-09 21:23 | XMS_ITS | Encounter Summary ---
:1950 Author Organization [facility] Address [address] [place] [address] Care Team Providers Name Role Phone Sebastian Griffiths MD Primary Care Provider Encounter Details Date Type Department Care Team Description 07/14/2021 Travel Social History Tobacco Use Types Packs/Day Years [...] or relatives? How often do you attend protestant or Never 2020 yazdanism services? Do you belong to any clubs or No 05/18/2020 organizations such as protestant groups, unions, fraternal or athletic groups, or [...] / COVID-19? documented as of this encounter Plan of Treatment Upcoming Encounters Date Type Specialty Care Team Description 01/18/2022 Telemedicine Family Medicine Sebastian Griffiths MD [address] [place] [phone] (Wo rk) documented as of this encounter Visit Diagnoses Not on filedocumented in this encounter Care Teams Insert Cutter Relationship Specialty Start Date End Date Sebastian Griffiths MD PCP - General 10/24/[address] [place] [phone] documented as of this encounter
--- OUTSIDE RECORDS SUMMARY | 2021-12-09 21:23 | XMS_ITS | Encounter Summary ---
:1950 Author Organization [facility] Address [address] [place] [address] Care Team Providers Name Role Phone Sebastian Griffiths MD Primary Care Provider Reason for Visit Reason Onset Date Comments Med Refill 11/16/2021 Encounter Details Date Type Department Care Team Description 11/16/2021 Refill SE Family Med Sebastian Griffiths MD Vitamin D deficiency [address] [facility] [address] [facility] (Primary Dx) [place] [address] [place] [address] [phone] (Wo rk) Social History Tobacco Use Types [...] or relatives? How often do you attend jehovah's witness or Never 2020 yazdanism services? Do you belong to any clubs or No 05/18/2020 organizations such as jehovah's witness groups, unions, fraternal or athletic groups, or [...] Telephone Encounter - Catherine Frank LPN - 11/16/2021 10:38 AM CDT Last visit in provider department: 07/06/21 Last visit requested medication was discussed:07/06/21 Last Rx: 03/16/21 Historical Provider Requested Prescriptions Pending Prescriptions Disp Refills ??? cholecalciferol (VITAMIN D-3) 25 MCG (1000 UT) tablet 90 tablet 3 Sig: Take 1 tablet (1,000 Units total) by mouth 1 (one) time each day Labs:data??25-Hydroxyvitamin D2 and D3 Order: [id number] Component Ref Range & Units 11/19/20 0729 25-Hydroxy D2 ng/mL <4.0 25-Hydroxy D3 ng/mL 11 25-Hydroxy D Total ng/mL 11??Low?? Comment: Interpretation: 10-19 ng/mL (mild to moderate deficiency) ----REFERENCE VALUE---- 25-HYDROXY D TOTAL (D2+D3) Optimum levels in the healthy population are 20-50, patients with bone disease may benefit from higher levels within this range. ----ADDITIONAL INFORMATION---- This test was developed and its performance characteristics determined by [facility] in a manner consistent with CLIA requirements. This test has not been cleared or approved by the U.S. Food and Drug Administration. Resulting Agency [facility] Specimen Collected: 11/19/20 07:29 Last Resulted: 11/24/20 14:33 Received From: [facility] Vitals: BP Readings from Last 2 Encounters: 07/14/21 127/67 06/01/21 126/74 Upcoming appointment with provider: Visit date not found documented in this encounter Plan of Treatment Upcoming Encounters Date Type Specialty Care Team Description 01/18/2022 Telemedicine Family Medicine Sebastian Griffiths MD [address] [place] [phone] (Wo rk) documented as of this encounter Visit Diagnoses Diagnosis Vitamin D deficiency - Primary documented in this encounter Care Teams Electrician Apprentice Relationship Specialty Start Date End Date Sebastian Griffiths MD PCP - General 10/24/[address] [place] [phone] documented as of this encounter
--- OUTSIDE RECORDS SUMMARY | 2021-12-09 21:23 | XMS_ITS | Encounter Summary ---
:1950 Author Organization [facility] Address [address] [place] [address] Care Team Providers Name Role Phone Sebastian Griffiths MD Primary Care Provider Reason for Visit Reason Comments Med Refill Encounter Details Date Type Department Care Team Description 09/14/2021 Refill SE Family Med Sebastian Griffiths MD Allergic rhinitis, [address] [facility] [address] unspecified seasonality, [place] [address] [place] [address] unspecified trigger [phone] (Wo rk) Social History Tobacco Use Types [...] do you attend yazdanism or Never 2020 caodaism services? Do you belong to any clubs [...] Telephone Encounter - Guillermina Moran MA - 09/15/2021 8:56 AM CDT Last visit in provider department: 07/06/2021 Last visit requested medication was discussed: 12/03/2020 Iwona Rivera, DNP, WATER FILTER CLEANER Last Rx: 12/22/2020 # 16 g, 6 refill Requested Prescriptions Pending Prescriptions Disp Refills ??? fluticasone (FLONASE) 50 MCG/ACT nasal spray [Pharmacy Med Name: Fluticasone Propionate 50 MCG/ACT Suspension] 16 g 12 Sig: INHALE 2 SPRAYS IN EACH NOSTRIL DAILY Upcoming appointment with provider: 10/19/2021 documented in this encounter Plan of Treatment Upcoming Encounters Date Type Specialty Care Team Description 01/18/2022 Telemedicine Family Medicine Sebastian Griffiths MD [address] [place], [place] [phone] (Wo rk) documented as of this encounter Visit Diagnoses Diagnosis Allergic rhinitis, unspecified seasonali ty, unspecified trigger documented in this encounter Care Teams Traffic Technician Relationship Specialty Start Date End Date Sebastian Griffiths MD PCP - General 10/24/17 [address] [place] [address] documented as of this encounter
--- OUTSIDE RECORDS SUMMARY | 2021-12-09 21:23 | XMS_ITS | Encounter Summary ---
:1950 Author Organization [facility] Address [address] [place] [address] Care Team Providers Name Role Phone Rocío Griffiths MD Primary Care Provider Reason for Visit Auth/Cert Specialty Diagnoses / Procedures Referred By Contact Refer red To Contact Diagnoses Gastroesophageal reflux disease, unspecified whether esophagitis present Uncontrolled type 2 diabetes mellitus with hyperglycemia (HCC) Gastroesophageal reflux disease, unspecified whether esophagitis present [K21.9] Uncontrolled type 2 diabetes mellitus with hyper glycemia (HCC) [E11.65] Procedures ESOPHAGOGASTRODUODENOSCOPY Referral ID Status Reason Start Date Expiration Date Visits Requ ested Visits Authorized [id number] 1 1 Encounter Details Date Type Department Care Team Description 07/14/2021 Surgery [facility] Endosco py Jaye Hall, ESOPHAGOGASTRODUODENOSCOPY [address] [place] [address] [place] [address] [place] [address] Surgery Details Date/Time Status Location OR Service Patient Class Case Class Case Trauma Type Case? 07/14/21 10:50 Posted [facility] GI GI 2 General Outpatient AM Panel 1 Procedure LRB Anes Op Region Wound Class Commen ts ESOPHAGOGASTRODUODENOSCOPY N/A Moderate Class II/ Clean Sedation Contaminated Surgeon Surgeon Role Service Panel Jaye Hall MD Primary General 1 documented in this encounter Social History Tobacco Use Types Packs/Day Years [...] or relatives? How often do you attend gnosticism or Never 2020 rastafari services? Do you belong to any clubs or No 05/18/2020 organizations such as gnosticism groups, unions, fraternal or athletic groups, or [...] / COVID-19? documented as of this encounter Last Filed Vital Signs Vital Sign Reading Time Taken Comments Blood Pressure 156/90 07/14/2021 11:25 AM CDT Pulse 89 07/14/2021 11:25 AM CDT Temperature 36.2 ??C (97.2 ??F) 07/14/2021 11:25 AM CDT Respiratory Rate 16 07/14/2021 11:25 AM CDT Oxygen Saturation 96% 07/14/2021 11:25 AM CDT Inhaled Oxygen Concentration - - Weight - - Height - - Body Mass Index - - documented in this encounter Discharge Instructions Discharge InstructionsKimber Johnson RN - 07/14/2021 12:15 PM CDT Endoscopy-Gastroscopy Care After Please read the instructions outlined below and refer to this sheet in the next few weeks. These discharge instructions provide you with general information on caring for yourself after you leave the hospital. Your doctor may also give you specific instructions. While your treatment has been planned according to the most current medical practices available, unavoidable complications occasionally occur. If you have any problems or questions after discharge, call your doctor in the General Surgery Dept at [phone] between 8am-5pm Mon-Fri. If calling after hours or on the weekend,call [facility] ER Dept at [phone] You had ___3__ biopsies done during your procedure today Follow-up If a polyp or biopsy (tissue specimen) has been obtained, it is being sent to pathology for analysis. It will take approximately 5-7 days for the report to return to the healthcare provider. You will be notified by phone or letter of those results by your primary care pediatrician. It is important for you to follow up on all of your test results. If biopsies were done and you do not hear back from your primarycare doctor in 2 weeks please call them for the results. Activity ??? You may resume your regular activity but move at a slower pace for the next 24 hours. ??? Take frequent rest periods for the next 24 hours. ??? Walking will help get rid of the air and reduce the bloated feeling in your abdomen. ??? No driving or operating motorized equipment or vehicles for12 hours (because of the anesthesia (medicine) used during the test). ??? You may shower. ??? Do not sign any important legal documents or make financial decisions for 24 hours (because of the anesthesia used during the test). Nutrition ??? Drink plenty of fluids-Start with cool liquids until anesthetizing throat spray has worn off. ??? You may resume your normal diet once anesthetizing spray has worn off. ??? Begin with a light meal and progress to your normal diet. ??? Avoid alcoholic beverages on day of procedure. Medications You may resume your normal medications unless your caregiver tells you otherwise. What you can expect today ??? You may experience abdominal discomfort such as a feeling of fullness or gas pains; burping, belching, hiccups are not uncommon. ??? You may experience a sore throat for 2 to 3 days. This is normal. Gargling with salt water may help this. SEEK IMMEDIATE MEDICAL CARE IF: ??? You develop pain in the chest area not relieved by walking or rest. ??? You have SEVERE abdominal pain and distention (swelling), not relieved by walking or rest. ??? You have trouble swallowing. ??? You develop fever or chills within 24-48 hours. ??? You have rectal bleeding or vomiting of blood. IF QUESTIONS PLEASE CALL [phone] M-F 7, IF AFTER THESE HOURS PLEASE CALL [phone] documented in this encounter Medications at Time of Discharge Medication Sig Dispensed Refills Start Date End Date acetaminophen (TYLENOL) 500 Take 2 tablets 168 tablet 11 06/18 MG tabletIndications: (1,000 mg total) Chronic pain syndrome by mouth every 8 (eight) hours albuterol HFA (Ventolin HFA) INHALE 1 PUFF BY 18 g 5 0 06/01/2021 108 (90 Base) MCG/ACT MOUTH NEEDED inhalerIndications: Chronic obstructive pulmonary disease, unspecified COPD type ([facility]) amLODIPine (NORVASC) 5 MG TAKE 1 TABLET BY 28 tablet 12 10/2021 tabletIndications: MOUTH DAILY Hypertension, essential, benign aspirin (Aspirin Low Dose) CHEW ONE TABLET BY 100 tablet 4 1 81 MG chewable MOUTH DAILY tabletIndications: Controlled type 2 diabetes mellitus without complication, without long-term current use of insulin ([facility]) Blood Glucose Monitoring USE DIRECTED TO 1 kit 0 Suppl (Accu-Chek Guide) TEST BLOOD SUGARS w/Device kitIndications: FOUR TIMES DAILY Type II diabetes mellitus with peripheral circulatory disorder ([facility]) Continuous Blood Gluc Sensor 1 application 3 1 each (FreeStyle Kristie 14 Day (three) times a Sensor) miscIndications: day Uncontrolled type 2 diabetes mellitus with hyperglycemia ([facility]) docusate sodium (COLACE) 100 Take 100 mg by 0 MG capsule mouth 2 (two) times a day if needed dorzolamide-timolol (COSOPT) Administer 1 drop 10 mL 11 06/14/2018 22.3-6.8 MG/ML ophthalmic into both eyes 2 solutionIndications: Primary (two) times a day open angle glaucoma (POAG) of both eyes, severe stage DULoxetine (CYMBALTA) 60 MG TAKE 2 CAPSULES BY 56 capsule 12 05/25/2021 DR capsuleIndications: Major MOUTH DAILY depressive disorder, recurrent episode, moderate ([facility]) EPINEPHrine (EpiPen 2-Jack) Inject 0.3 mL (0.3 0.3 mL 2 0 12/01/2020 0.3 MG/0.3ML injection mg total) into the syringeIndications: Bee thigh if needed sting allergy for anaphylaxis. Call 911 after use. gabapentin (NEURONTIN) 600 TAKE 1 TABLET BY 84 tablet 12 11/2021 MG tabletIndications: MOUTH 3 TIMES Degenerative disc disease, DAILY lumbar, Uncontrolled type 2 diabetes mellitus with hyperglycemia (HCC) hydroCHLOROthiazide TAKE 1 TABLET BY 28 tablet 12 05/25/2021 (HYDRODIURIL) 25 MG MOUTH DAILY tabletIndications: Hypertension, essential, benign hydrOXYzine (ATARAX) 25 MG TAKE ONE TABLET BY 90 tablet 11 0 06/11/2021 tabletIndications: Anxiety, MOUTH EVERY 8 Pruritic condition HOURS NEEDED FOR ITCHING ketorolac (ACULAR) 0.5 % Administer 1 drop 0 0 07/2018 ophthalmic solution into affected eye(s) 4 times daily latanoprost (Xalatan) 0.005 Administer 1 drop 7.5 mL 3 1 % ophthalmic into both eyes solutionIndications: every night Allergic conjunctivitis, unspecified laterality Lubricating Plus Eye Drops 0 0.5 % solution Misc. Devices (RECONSTITUBE) glucometer strips 0 10/29/2015 [facility] See Instructions, testing strips-please fill brand covered by insurance., 100 each, 5 Refill(s) Misc. Devices (RECONSTITUBE) flex pen needles 0 0 10/08/2015 [facility] See Instructions, flex pen needles, 100 each, 5 Refill(s) Misc. Devices (RECONSTITUBE) lancet See 0 016 [facility] Instructions, lancets, 100 each, 5 Refill(s) Misc. Devices (RECONSTITUBE) glucometer See 0 [facility] Instructions, glucose monitor, 1 each, 0 Refill(s) naloxone (NARCAN) 0.4 MG/ML Inject 1 mL (0.4 1 mL 0 injectionIndications: S/P mg total) into the arthroscopy of right shoulder, thigh, shoulder or buttocks if needed for opioid reversal oxybutynin XL (Ditropan XL) Take 1 tablet (5 30 tablet 11 5 MG 24 hr mg total) by mouth tabletIndications: Urinary, 1 (one) time each incontinence, stress female day in the evening Do not crush, chew, or split. pantoprazole (PROTONIX) 40 TAKE 1 TABLET BY 28 tablet 12 10/2021 MG EC tabletIndications: MOUTH EVERY Gastroesophageal reflux MORNING BEFORE disease without esophagitis BREAKFAST prednisoLONE acetate (PRED Administer 1 drop 0 FORTE) 1 % ophthalmic into affected suspension eye(s) 4 times daily risperiDONE (RisperDAL) 2 MG TAKE 1 TABLET BY 56 tablet 12 0 05/25/2021 tabletIndications: Major MOUTH TWICE DAILY depressive disorder, recurrent episode, moderate (HCC) Safety Lancets Use to test blood 100 each 11 01/25/2021 miscIndications: sugars 3 times a Uncontrolled type 2 diabetes day mellitus with hyperglycemia ([facility]) senna (SENOKOT) 8.6 MG Take 2 tablets by 0 tablet mouth every night SEREVENT DISKUS 50 MCG/DOSE Inhale 1 puff 2 0 06/2019 diskus inhaler (two) times a day Sharps Container (GUARDIAN SHARPS 0 1 Sharps Thumb Sewer) misc SITagliptin (Januvia) 100 MG TAKE 1 TABLET BY 28 tablet 12 0 05/25/2021 tabletIndications: MOUTH DAILY Controlled type 2 diabetes mellitus without complication, without long-term current use of insulin ([facility]) sodium chloride (OCEAN) 0.65 Administer 2 0 % nasal spray sprays into each nostril 3 (three) times a day if needed for congestion Sofosbuvir-Velpatasvir Take 1 tablet by 0 (Epclusa) 400-100 MG tablet mouth 1 (one) time each day timolol (TIMOPTIC) 0.5 % Administer 1 drop 0 ophthalmic solution into affected eye(s) 2 times daily Aspirin Low Dose 81 MG EC 1 tablet (81 mg 0 07/06 tablet total) 1 (one) 2 time each day in the morning carboxymethylcellulose Administer 1 drop 30 mL 1 2021 (REFRESH PLUS) 0.5 % into both eyes 3 2 ophthalmic (three) times a solutionIndications: Dry day if needed for eyes, bilateral dry eyes Cetirizine HCl 10 MG Take 10 mg by 30 capsule 2 12/03/2020 0 capsuleIndications: Allergic mouth 1 (one) time 2 rhinitis, unspecified each day if needed seasonality, unspecified (aLLERGIES) trigger cholecalciferol (VITAMIN Take 1,000 Units 0 03/16 D-3) 25 MCG (1000 UT) tablet by mouth 1 (one) 2 time each day fluticasone (FLONASE) 50 USE 2 SPRAYS IN 16 g 6 2020 MCG/ACT nasal EACH NOSTRIL EVERY 2 sprayIndications: Allergic MORNING FOR DRY rhinitis, unspecified NOSE seasonality, unspecified trigger glucose blood test Use to test blood 300 each 3 01/25/2021 stripIndications: Type II sugar three times 2 diabetes mellitus with daily peripheral circulatory disorder (HCC), Uncontrolled type 2 diabetes mellitus with hyperglycemia (HCC) insulin glargine (LANTUS) Inject 40 units SQ 15 mL 3 100 UNIT/ML once in the 2 injectionIndications: Type evening. This is II diabetes mellitus with an increase from peripheral circulatory 35 units a day disorder (HCC), Uncontrolled prior to type 2 diabetes mellitus 03/02/2021. with hyperglycemia (HCC) insulin lispro (HumaLOG) 100 Inject 0-7 units 15 mL 2 0 06/14/2021 UNIT/ML subcutaneous twice 2 injectionIndications: a day before lunch Uncontrolled type 2 diabetes and dinner per mellitus with hyperglycemia sliding scale (HCC) LORazepam (ATIVAN) 0.5 MG TAKE 1 TABLET BY 90 tablet 0 06/18 tabletIndications: MOUTH MOUTH EVERY 2 Generalized anxiety disorder 8 HOURS nicotine (NICODERM CQ) 21 Place 1 patch on 30 patch 3 09/2021 MG/24HRIndications: the skin 1 (one) 2 Encounter for smoking time each day at cessation counseling the same time NovoFine Autocover Pen Use up to three 100 each 5 01/30/20 21 Needle 30G X 8 MM times daily with 2 miscIndications: insulin Uncontrolled type 2 diabetes mellitus with hyperglycemia (HCC) oxyCODONE (ROXICODONE) 5 MG Take 2 tablets (10 180 tablet 0 07/09/2021 immediate release mg total) by mouth 2 tabletIndications: Chronic every 6 (six) pain syndrome hours if needed for moderate pain May take every 6 hours but still only 6 tabs total per day. polyethylene glycol Take 17 g by mouth 578 g 2 04/23/19 22 (GLYCOLAX) 17 GM/SCOOP 1 (one) time each 2 powderIndications: Chronic day constipation zolpidem (AMBIEN) 5 MG TAKE ONE TABLET BY 30 tablet 5 04/13 tabletIndications: Insomnia, MOUTH EVERY DAY AT 2 unspecified type BEDTIME documented as of this encounter H&P Notes Jaye Hall MD - 07/14/2021 11:39 AM CDT H&P reviewed. The patient was evaluated and no changes in presentation from the date of prior H&P. Patient examined: Vitals stable, no changes in examination on cardiovascular system and respiratory status. Plan: Okay to proceed with the procedure under conscious sedation. documented in this encounter Procedure Notes Jaye Hall MD - 07/14/2021 10:50 AM CDT Endoscopic Gastroduodenoscopy Procedure Note Procedure: Procedures: * ESOPHAGOGASTRODUODENOSCOPY --diagnostic with biopsies using a cold biopsy forceps from the duodenum, antrum and distal esophagus. Pre-operative Diagnosis: *Gastroesophageal reflux disease, unspecified whether esophagitis present [K21.9] Uncontrolled type 2 diabetes mellitus with hyperglycemia (HCC) [E11.65], Post-op Diagnosis * Gastroesophageal reflux disease, unspecified whether esophagitis present [K21.9] * Uncontrolled type 2 diabetes mellitus with hyperglycemia (HCC) [E11.65] Post-operative Diagnosis: Normal exam Indications: Gastroesophageal reflux Procedure Details Informed consent was obtained for the procedure, including conscious sedation. Risks of pancreatitis, infection, perforation, hemorrhage, adverse drug reaction and aspiration were discussed. The patient was placed in the left lateral decubitus position. Based on the pre-procedure assessment, includingreview of the patient's medical history, medications, allergies, and review of systems, she had beendeemed to be an appropriate candidate for conscious sedation; she was therefore sedated with the medications listed below. She was monitored continuously with ECG tracing, pulse oximetry, blood pressure monitoring, and direct observation. The gastroscope was inserted into the mouth and advanced under direct vision to GE junction at 39 cm. The scope was then advanced into the stomach and the duodenum. A careful inspection was made as thegastroscope was withdrawn, including a retroflexed view of the proximal stomach; findings and interventions are described below. Appropriate photodocumentation was obtained. Findings: -normal esophagus, stomach, and duodenum Specimens: Order Name Source Comment Collection Info Order Time PATHOLOGY Small Intestine, Duodenum Collected By: Jaye Hall MD 07/14/2021 12:17 PM Collection Date 07/14/2021 Complications: None; patient tolerated the procedure well. Condition: stable Impression: -Normal upper endoscopy, with no endoscopic evidence of neoplasia or mucosal abnormality. Recommendations: -Await pathology., -Follow up with primary care physician documented in this encounter Miscellaneous Notes Result Encounter Note - Jaye Hall MD - 07/14/2021 1:13 PM CDT Related patient pathology from the endoscopy is benign confirm reactive gastropathy. Esophageal biopsies consistent with reflux. Recommend follow-up with primary physician for management and further recommendations documented in this encounter Plan of Treatment Upcoming Encounters Date Type Specialty Care Team Description 01/18/2022 Telemedicine Family Medicine Rocío Griffiths MD [address] [place] [address] [phone] (Wo rk) documented as of this encounter Procedures Procedure Name Priority Date/Time Associated Diagnosis Comme nts PATHOLOGY Routine 07/14/2021 Results for 12:12 PM CDT this procedure are in the results section. ESOPHAGOGASTRODUODENOSCOPY 07/14/2021 Gastroesophage al 11:50 AM CDT reflux disease, unspecified whether esophagitis pres ent Uncontrolled type 2 diabetes mellitus with hyperglycemia (HCC) POCT PRECISION GLUCOSE Routine 07/14/2021 Resul ts for 11:47 AM CDT this procedure are in the results section. documented in this encounter Results Pathology (07/14/2021 12:12 PM CDT) Specimen (Source) Anatomical Collection Method Collection Time Re ceived Time Location / / Volume Laterality Tissue (Small 07/14/2021 12:12 Intestine, PM CDT Duodenum) Tissue (Stomach) 07/14/2021 12:12 PM CDT Tissue 07/14/2021 12:12 (Esophagus) PM CDT Narrative [facility] - 06/19 7:11 PM CDT ? [facility] ? [address] ?[place] [address] ? Patient: ?EMILEE GALVEZ ?Procedure: ? 07/14/2021 12:12 /Age/Sex: ??1950, 71 Y, F ?Received: ?07/14/2021 13:36 ? Accession #: ?? [id number] Billing: ?[id number] ? Patient Location: OUT-PATIENT ? SERVICES Ordered by: ?? JAYE HALL MD. ?Attending: ? VIDHAN EMELINA, MD. ?S URGICAL PATHOLOGY FINAL REPORT COPY TO: ROCÍO GRIFFITHS MD; JAYE Springer MD. SPECIMEN: (A) DUODENUM BIOPSY (B) STOMACH ANTRUM, BIOPSY (C) ESOPHAGEAL BIOPSY, DISTAL CLINICAL INFORMATION: Gastroesophageal reflux disease, unspeci fied whether esophagitis is present. Uncontrolled type 2 diabetes mellitus wi th hyperglycemia. GROSS DESCRIPTION: 1) Designated for cassette A, received i n formalin labeled small intestine, duodenum are 2 cleary irregular soft tissue s measuring 0.4 x 0.3 x 0.2 and 0.4 x 0.4 x 0.2 cm. ??The specimens are completely s ubmitted into cassette A1. 2) Designated for cassette B, received i n formalin labeled stomach, antrum is a cleary irregular soft tissue measuring 0.5 x 0. 3 x 0.3 cm. ??The specimen is completely submitted into cassette B1. 3) Designated for cassette C, received i n formalin labeled distal esophagus are multiple pale cleary irregular soft tissues measuring from 0.1-0.3 cm in greatest dimension. ??The specimens are completel y submitted into cassette C1. HAYLEY Beyer ([facility]) CM Patient's identification labels match on requisition form and bottle(s). MICROSCOPIC DESCRIPTION: A-C. ??Microscopic examination is perfor med. DIAGNOSIS: A. ??Duodenum, biopsy: -Duodenal mucosa within normal limits. -No increased intraepithelial lymphocyte s or significant villous architectural changes identified. -No dysplasia or malignancy identified. -See comment. B. ??Stomach, antrum, biopsy: -Gastric mucosa with reactive gastropath y. -No Helicobacter organisms identified on routinely stained sections. -No intestinal metaplasia, dysplasia, or malignancy identified. -See comment. C. ??Esophagus, distal, biopsy: -Squamous esophageal mucosa with mild re flux changes. -No intestinal metaplasia, dysplasia, or malignancy identified. -See comment. COMMENT : Clinical and endoscopic correlation is r ecommended. <Sign Out Signature> SHAUN QUISPE MD (Electronically Signed) Reported: ??07/15/2021 ??19:11 ? Page 1 of 1 Jaye Hall MD LAB PATHOLOGY ORDERABLES Performing Organization Address City/[facility]/ZIP Code Phon e Number [facility] [address] [place] [address] (ABNORMAL) POCT Precision glucose (07/14/2021 11:47 AM CDT) athologist Signature Glucose Blood, 103 (H) 70 - 100 07/14/2021 [facility] mg/dL 11:47 AM CDT [facility] Comment: Meter ID: [id number] Capillary whole blood specimens should n ot be used in patients receiving intensive medical intervention /therapy because of the potential for pre-analytical collect ion error and specifically in patients with decreased peripheral bl ood flow, as it may not truly reflect the patient? s true physiological state. Examples include, but are not limited to , severe hypotension, shock, hyperosmolar-hyperglycemia (with or without ketosis), and severe dehydration. Specimen Anatomical Collection Method Collection Time Receive d Time (Source) Location / / Volume Laterality 07/14/2021 11:47 07/14/2021 AM CDT 11:48 AM CDT Jaye Hall MD LAB POINT OF CARE TEST DOCKE D DEVICE UNSOLICITED RESULTS Performing Organization Address [facility] Phon e Number [facility] [address] [place] [id number] documented in this encounter Visit Diagnoses Diagnosis Gastroesophageal reflux disease, unspeci fied whether esophagitis present Uncontrolled type 2 diabetes mellitus wi th hyperglycemia (HCC) documented in this encounter Administered Medications Inactive Administered Medications - up to 3 most recent administrations Medication Order MAR Action Action Date Dose Rate Site atropine injection 0.4 mg 0.4 mg, Intravenous, Once as needed, Bra dycardia, Starting on Mon07/14/21 at 1132, For 10 days, Preprocedure benzocaine (HURRICAINE) 20 % mouth spray 1 Given 07/14 12:04 PM CDT 2 sprays spray 1 spray, Mouth/Throat, mail caller, On Mon07/14/21 at 1230, For 1 dose, Preprocedure, As needed for Gastroscopy. fentaNYL (SUBLIMAZE) injection Given 07/14/2021 12:09 PM CDT 50 mcg As needed, Starting on Mon07/14/21 at 1209, Intraprocedure Glucagon HCl (rDNA) injection 1 mg 1 mg, Intravenous, As needed, low blood sugar, Decrease parastalsis, Starting on Mon07/14/21 at 1132, For 1 dose, Preproc edure, As needed to decrease parastalsis. lactated Ringer's infusion New Bag 07/14/2021 11:48 AM CDT 100 mL/hr 100 mL/hr 100 mL/hr, Intravenous, Continuous, Starting on Mon07/14/21 at 1230, For 5 days, Preprocedure lidocaine 1% (XYLOCAINE) 1 % injection 1 0 mg 10 mg (1 mL), Subcutaneous, Once as need ed, For IV start, Starting on Mon07/14/21 at 1132, For 5 days, Preprocedure midazolam (VERSED) injection Given 07/14/2021 12:12 PM CDT 1 mg As needed, Starting on Mon07/14/21 at 1203, Intraprocedure Given 07/14/2021 12:06 PM CDT 1 mg Given 07/14/2021 12:03 PM CDT 1 mg ondansetron (ZOFRAN) injection 4 mg 4 mg, Intravenous, Once as needed, nause a, Starting on Mon07/14/21 at 1132, For 1 dose, Preprocedure sodium chloride 0.9 % flush 2 mL 2 mL, Intravenous, Every 8 hours PRN, [facility], Starting on Mon07/14/21 at 1132, For 5 days, Preprocedure documented in this encounter Active and Recently Administered Medications Times are shown in CDT. Scheduled Medication Order 07/12/2021 07/13/2021 07/14/2021 benzocaine (HURRICAINE) 20 % mouth spray 1 spray (COMPLETED) 1204 (Given - Provider: Kimber Johnson, MARLENE)1230 (Due) 1 spray, Mouth/Throat, mail caller, On Mon at 1230, For 1 dose, Preprocedure, As needed for Gastroscopy. Continuous Medication Order 07/12/2021 07/13/2021 07/14/2021 lactated Ringer's infusion 1148 (New Bag - Provider: Yael Douglas, RN)1301 (Stopped - Provider: Rocío Mckee RN) 100 mL/hr, Intravenous, Continuous, Star ting on Mon07/14/21 at 1230, For 5 days, Preprocedure PRN Medication Order 07/12/2021 07/13/2021 07/14/2021 atropine injection 0.4 mg 0.4 mg, Intravenous, Once as needed, Bra dycardia, Starting on Mon07/14/21 at 1132, For 10 days, Preprocedure fentaNYL (SUBLIMAZE) injection (CANCELED) 1209 (Given - Provider: Kimber Johnson, MARLENE) As needed, Starting on Mon07/14/21 at 1209, Intraprocedure Glucagon HCl (rDNA) injection 1 mg 1 mg, Intravenous, As needed, low blood sugar, Decrease parastalsis, Starting on Mon07/14/21 at 1132, For 1 dose, Preprocedure, As needed to decrease parastalsis. lidocaine 1% (XYLOCAINE) 1 % injection 10 mg(Linked Group 1) 10 mg (1 mL), Subcutaneous, Once as need ed, For IV start, Starting on Mon07/14/21 at 1132, For 5 days, Preprocedure midazolam (VERSED) injection (CANCELED) 1203 (Given - Provider: Kimber Johnson RN)1206 (Given - Provider: Kimber Johnson, MARLENE)1212 (Given - Provider: Kimber Johnson, MARLENE) As needed, Starting on Mon07/14/21 at 1203, Intraprocedure ondansetron (ZOFRAN) injection 4 mg 4 mg, Intravenous, Once as needed, nause a, Starting on Mon07/14/21 at 1132, For 1 dose, Preprocedure sodium chloride 0.9 % flush 2 mL(Linked Group 1) 2 mL, Intravenous, Every 8 hours PRN, li me care, Starting on Mon07/14/21 at 1132, For 5 days, Preprocedure Linked Groups Order Group 1: Insert peripheral IV (CANCELED) Once, On Mon07/14/21 at 1133, For 1 occu rrence
Preprocedure And Maintain IV access (CANCELED) Until discontinued, Starting on 07/14 at 1133, Until Specified
Preprocedure And Saline lock IV (CANCELED) Once, On Mon07/14/21 at 1133, For 1 occu rrence
Preprocedure And sodium chloride 0.9 % flush 2 mLJump to med 2 mL, Intravenous, Every 8 hours PRN, [facility] care, Starting on Mon07/14/21 at 1132, For 5 days, Preprocedure And lidocaine 1% (XYLOCAINE) 1 % injection 10 mgJump to med 10 mg (1 mL), Subcutaneous, Once as need ed, For IV start, Starting on Mon07/14/21 at 1132, For 5 days, Preprocedure documented in this encounter Care Teams Weigher Production Relationship Specialty Start Date End Date Rocío Griffiths MD PCP - General 10/24/[address] [place] [id number] documented as of this encounter
--- OUTSIDE RECORDS SUMMARY | 2021-12-09 21:23 | XMS_ITS | Encounter Summary ---
:1950 Author Organization [facility] Address [address] [place] [address] Care Team Providers Name Role Phone Sebastian Griffiths MD Primary Care Provider Reason for Visit Reason Comments Med Refill Encounter Details Date Type Department Care Team Description 10/21/2021 Refill SE Family Med Sebastian Griffiths MD Generalized anxiety [address] [facility] [address] [place] [address] [place] [address] [phone] (Wo rk) Social History Tobacco Use Types [...] or relatives? How often do you attend worship or Never 2020 scientology services? Do you belong to any clubs or No 05/18/2020 organizations such as worship groups, unions, fraternal or athletic groups, or [...] Telephone Encounter - Catherine Frank LPN - 10/21/2021 3:42 PM CDT Last visit in provider department: 07/06/21 Last visit requested medication was discussed:07/06/21 Last Rx: Ativan 09/14/21 #90 Can not find last fill date for Incontinence supply they are not on pts med list Requested Prescriptions Pending Prescriptions Disp Refills ??? Incontinence Supply Disposable (FQ Protective Underwear) misc [Pharmacy Med Name: FQ Protective Underwear Miscellaneous] 56 each 12 Sig: USE DIRECTED ??? LORazepam (ATIVAN) 0.5 MG tablet 90 tablet 0 Sig: TAKE 1 TABLET BY MOUTH MOUTH EVERY 8 HOURS Labs: Vitals: BP Readings from Last 2 Encounters: 07/14/21 127/67 06/01/21 126/74 07/06/21 PHQ9- 6 GAD7- 9 Upcoming appointment with provider: 11/16/2021 Please put a sig on Incontinence Underwear cant use Use as directed documented in this encounter Plan of Treatment Upcoming Encounters Date Type Specialty Care Team Description 01/18/2022 Telemedicine Family Medicine Sebastian Griffiths MD [address] [place], [place] [phone] (Wo rk) documented as of this encounter Visit Diagnoses Diagnosis Generalized anxiety disorder documented in this encounter Care Teams Jackhammer Operator Relationship Specialty Start Date End Date Sebastian Griffiths MD PCP - General 10/24/17 [address] [place], [place] [phone] documented as of this encounter
--- OUTSIDE RECORDS SUMMARY | 2021-12-09 21:23 | XMS_ITS | Encounter Summary ---
:1950 Author Organization [facility] Address [address] [place] [address] Care Team Providers Name Role Phone Sebastian Griffiths MD Primary Care Provider Reason for Visit Reason Comments Med Refill Encounter Details Date Type Department Care Team Description 10/31/2021 Refill SE Family Med Sebastian Griffiths MD Type II diabetes mellitus with periphera l circulatory disorder (HCC); [address] Uncontrolled type 2 diabetes mellitus wi th hyperglycemia (HCC) [place] [address] [place] [address] [phone] (Wo rk) Social History Tobacco Use Types [...] or relatives? How often do you attend zoroastrian or Never 2020 church services? Do you belong to any clubs or No 05/18/2020 organizations such as zoroastrian groups, unions, fraternal or athletic groups, or [...] Telephone Encounter - Catherine Frank LPN - 11/01/2021 11:57 AM CDT Last visit in provider department: 07/06/21 Last visit requested medication was discussed:07/06/21 Last Rx: 03/02/21 #15ml with 3 refills Requested Prescriptions Pending Prescriptions Disp Refills ??? insulin glargine (Lantus SoloStar) 100 UNIT/ML injection [Pharmacy Med Name: Lantus SoloStar 100UNIT/ML Solution pen-injector] 15 mL 11 Sig: INJECT 40 UNITS SUBCUTANEOUSLY EVERY EVENING Labs: Component Latest Ref Rng & Units 06/01/2021 GFR >60 GFR >60 Component Latest Ref Rng & Units 06/01/2021 Hemoglobin A1C 4.0 - 5.6 % A1C 8.2 (H) Component Latest Ref Rng & Units 06/01/2021 Cholesterol 0 - 199 mg/dL 154 Triglycerides 0 - 149 mg/dL 216 (H) HDL 40 - 250 mg/dL 42 LDL Calculated 0 - 99 mg/dL 69 Component Latest Ref Rng & Units 06/01/2021 [...] 127/67 06/01/21 126/74 Upcoming appointment with provider: 11/16/21 documented in this encounter Plan of Treatment Upcoming Encounters Date Type Specialty Care Team Description 01/18/2022 Telemedicine Family Medicine Sebastian Griffiths MD [address] [place] [phone] (Wo rk) documented as of this encounter Visit Diagnoses Diagnosis Type II diabetes mellitus with periphera l circulatory disorder (HCC) Type II or unspecified type diabetes giuseppe litus with peripheral circulatory disorders, not stated as uncontrolled Uncontrolled type 2 diabetes mellitus wi th hyperglycemia (HCC) documented in this encounter Care Teams Property Insurance Agent Relationship Specialty Start Date End Date Sebastian Griffiths MD PCP - General 10/24/[address] [place] [id number] documented as of this encounter
--- OUTSIDE RECORDS SUMMARY | 2021-12-09 21:23 | XMS_ITS | Encounter Summary ---
:1950 Author Organization Address [address] [place] [address] Care Team Providers Name Role Phone Sebastian Griffiths MD Primary Care Provider Reason for Visit Reason Onset Date Comments Scooter Repair 12/09/2021 Encounter Details Date Type Department Care Team Description 12/09/2021 Telephone NW Family Medicine Sebastian Griffiths MD Scooter Repair [address] [facility] [address] [place] [address] [place] [address] (Wo rk) Social History Tobacco Use Types [...] or relatives? How often do you attend yarsani or Never 2020 congregational services? Do you belong to any clubs or No 05/18/2020 organizations such as yarsani groups, unions, fraternal or athletic groups, or [...] this encounter Miscellaneous Notes Telephone Encounter - IVELISSE Cottrell - 12/09/2021 12:58 PM CDT [facility] calls today and needs Need charts from the last year stating that the patient stillneeds the scooter with a diagnosis and providers written signature. They state they have faxed over multiple requests for this information. Patient last seen on 07/06/21 Fax number [phone] documented in this encounter Plan of Treatment Upcoming Encounters Date Type Specialty Care Team Description 01/18/2022 Telemedicine Family Medicine Sebastian Griffiths MD [address] [place], [place] [phone] (Wo rk) documented as of this encounter Visit Diagnoses Not on filedocumented in this encounter Care Teams Program Facilitator Relationship Specialty Start Date End Date Sebastian Griffiths MD PCP - General 10/24/17 [address] [place], [place] [phone] documented as of this encounter
--- OUTSIDE RECORDS SUMMARY | 2021-12-09 21:23 | XMS_ITS | Encounter Summary ---
:1950 Author Organization [facility] Address [address] [place] [address] Care Team Providers Name Role Phone Sebastian Griffiths MD Primary Care Provider Reason for Visit Reason Comments Med Refill Encounter Details Date Type Department Care Team Description 08/23/2021 Refill SE Family Med Sebastian Griffiths MD Uncontrolled type 2 [address] [facility] [address] [place] [address] [place] [address] hyperglycemia (HCC) [phone] (Wo rk) Social History Tobacco Use Types [...] or relatives? How often do you attend congregation or Never 2020 jain services? Do you belong to any clubs or No 05/18/2020 organizations such as congregation groups, unions, fraternal or athletic groups, or [...] this encounter Miscellaneous Notes Telephone Encounter - Candice Werner LPN - 08/25/2021 10:38 AM CDT Last visit in provider department: 07/06/2021 Last visit requested medication was discussed: 07/06/2021 Last Rx: #100, 5 refills 01/29/2021 Requested Prescriptions Pending Prescriptions Disp Refills ??? Insulin Pen Needle (NovoFine Autocover Pen Needle) 30G X 8 MM misc [Pharmacy Med Name: NovoFine Autocover Pen Needle 30G X 8 MM Miscellaneous] 100 each 12 Sig: USE THREE TIMES DAILY WITH INSULIN Labs: ALBUMIN Date Value Ref Range Status 10/21/2019 4.4 3.5 - 5.0 g/dL Final CREATININE Date Value Ref Range Status 06/01/2021 0.9 0.4 - 1.2 mg/dL Final CHOL Date Value Ref Range Status 06/01/2021 154 0 - 199 mg/dL Final Comment: Recommended by National Cholesterol Education Program (ATP III) -------- Cholesterol Ranges -------- <200 Desirable 200-239 Borderline high >=240 High LDLCALC Date Value Ref Range Status 06/01/2021 69 0 - 99 mg/dL Final Comment: -------- LDL Ranges -------- <100 Optimal 100-129 Near optimal/above optimal 130-159 Borderline high 160-189 High >=190 Very high HDL Date Value Ref Range Status 06/01/2021 42 40 - 250 mg/dL Final Comment: -------- HDL Ranges -------- <40 Low 40-59 Normal >=60 Optimal TRIG Date Value Ref Range Status 06/01/2021 216 (H) 0 - 149 mg/dL Final Comment: -------- TRIG Ranges -------- <150 Normal 150-199 Borderline high 200-499 High >=500 Very high HGBA1C Date Value Ref Range Status 06/01/2021 8.2 (H) 4.0 - 5.6 % A1C Final Comment: Reference Range 4.0-5.6% is for non- adults >=18 yrs <5.6% Non-Diabetic 5.7-6.4% Increased risk of Diabetes >=6.5% Indicative of Diabetes <7.0% ADA goal for glycemic control Methodology may not detect all hemoglobin variants which can affect A1c results. Method certified by National Glycohemoglobin Standardization Program. Vitals: BP Readings from Last 2 Encounters: 07/14/21 127/67 06/01/21 126/74 Upcoming appointment with provider: 10/19/2021 documented in this encounter Plan of Treatment Upcoming Encounters Date Type Specialty Care Team Description 01/18/2022 Telemedicine Family Medicine Sebastian Griffiths MD [address] [place], [place] [address] (Wo rk) documented as of this encounter Visit Diagnoses Diagnosis Uncontrolled type 2 diabetes mellitus wi th hyperglycemia (HCC) documented in this encounter Care Teams Telephone Station Installer Relationship Specialty Start Date End Date Sebastian Griffiths MD PCP - General 10/24/17 [address] [place], [place] [phone] documented as of this encounter
--- OUTSIDE RECORDS SUMMARY | 2021-12-09 21:23 | XMS_ITS | Encounter Summary ---
:1950 Author Organization [facility] Address [address] [place] [address] Care Team Providers Name Role Phone Sebastian Griffiths MD Primary Care Provider Encounter Details Date Type Department Care Team Description 07/16/2021 Orders Only SE Family Med Sebastian Griffiths MD [address] [facility] [address] [place] [address] [place], [place] [address] (Wo rk) Social History Tobacco Use Types [...] or relatives? How often do you attend tenriism or Never 2020 church services? Do you belong to any clubs or No 05/18/2020 organizations such as tenriism groups, unions, fraternal or athletic groups, or [...] 01/18/2022 Telemedicine Family Medicine Sebastian Griffiths MD [address] [place], [place] [phone] (Wo rk) documented as of this encounter Visit Diagnoses Not on filedocumented in this encounter Care Teams Benefit Specialist Relationship Specialty Start Date End Date Sebastian Griffiths MD PCP - General 10/24/17 [address] [place] [address] documented as of this encounter
--- OUTSIDE RECORDS SUMMARY | 2021-12-09 21:23 | XMS_ITS | Encounter Summary ---
:1950 Author Organization [facility] Address [address] [place] [address] Care Team Providers Name Role Phone Sebastian Griffiths MD Primary Care Provider Reason for Visit Reason Comments Med Refill Encounter Details Date Type Department Care Team Description 08/23/2021 [address]ill [place] Sebastian Griffiths MD Chronic pain syndrome [address] [place] [id number] [place] [phone] (Wo rk) Social History Tobacco Use Types [...] or relatives? How often do you attend christian or Never 2020 jain services? Do you belong to any clubs or No 05/18/2020 organizations such as christian groups, unions, fraternal or athletic groups, or [...] this encounter Miscellaneous Notes Telephone Encounter - Marcy Mckeon LPN - 08/25/2021 11:09 AM CDT Pt is living at [facility] in [place]. They called to request this medication proactively. Pt is not out of medication. Rx date changed to 09/08/[address] on file. Please advise Telephone Encounter - Candice Werner LPN - 08/25/2021 10:52 AM CDT Last visit in provider department: 07/06/2021 Last visit requested medication was discussed: 07/06/2021 Last Rx: #180, 0 refills 08/09/2021 - early request Requested Prescriptions Pending Prescriptions Disp Refills ??? oxyCODONE (ROXICODONE) 5 MG immediate release tablet [Pharmacy Med Name: oxyCODONE HCl 5 MG Tablet] 180 tablet 12 Sig: TAKE 2 TABLETS BY MOUTH EVERY 6 HOURS NEEDED *MAX OF 6 TABS PER DAY* Opioid Agreement - Electronic signature on 01/25/2021 3:34 PM - 1 of 2 e- signatures recorded Labs: Results > one year old. Latest Reference Range & Units 08/24/16 15:25 Methadone Not Detected NOT DETECTED Propoxyphene Not Detected NOT DETECTED Amphetamines Not Detected NOT DETECTED Barbiturates Not Detected NOT DETECTED Benzodiazepines Not Detected DETECTED ! [1] Methamphetamine Not Detected NOT DETECTED Opiates Not Detected NOT DETECTED Oxycodone Not Detected NOT DETECTED Phencyclidine, Mec Not Detected NOT DETECTED Tetrahydrocannabinol Not Detected NOT DETECTED Vitals: BP Readings from Last 2 Encounters: 07/14/21 127/67 06/01/21 126/74 Upcoming appointment with provider: 10/19/2021 documented in this encounter Plan of Treatment Upcoming Encounters Date Type Specialty Care Team Description 01/18/2022 Telemedicine Family Medicine Sebastian Griffiths MD [address] [place] [phone] (Wo rk) documented as of this encounter Visit Diagnoses Diagnosis Chronic pain syndrome documented in this encounter Care Teams Court Usher Relationship Specialty Start Date End Date Sebastian Griffiths MD PCP - General 10/24/17 [address] [place] [address] documented as of this encounter
--- OUTSIDE RECORDS SUMMARY | 2021-12-09 21:23 | XMS_ITS | Encounter Summary ---
:1950 Author Organization [facility] Address [address] [place] [address] Care Team Providers Name Role Phone Sebastian Griffiths MD Primary Care Provider Reason for Visit Reason Comments Med Refill Encounter Details Date Type Department Care Team Description 12/03/2021 Refill SE Family Med Sebastian Griffiths MD Generalized anxiety [address] [facility] [address] [place] [address] [place] [address] [phone] (Wo rk) Social History Tobacco Use Types [...] or relatives? How often do you attend uatsdin or Never 2020 voodoo services? Do you belong to any clubs or No 05/18/2020 organizations such as uatsdin groups, unions, fraternal or athletic groups, or [...] Telephone Encounter - Guillermina Moran MA - 12/07/2021 6:20 AM CDT Last visit in provider department: 07/06/2021 Last visit requested medication was discussed: 07/06/2021 Last Rx: 11/24/2021 # 90, no refill Requested Prescriptions Pending Prescriptions Disp Refills ??? LORazepam (ATIVAN) 0.5 MG tablet [Pharmacy Med Name: LORazepam 0.5 MG Tablet] 90 tablet 5 Sig: TAKE 1 TABLET BY MOUTH EVERY 8 HOURS 07/06/2021 PHQ9: 6 / GAD7: 9 Vitals: BP Readings from Last 2 Encounters: 07/14/21 127/67 06/01/21 126/74 Upcoming appointment with provider: 01/18/2022 documented in this encounter Plan of Treatment Upcoming Encounters Date Type Specialty Care Team Description 01/18/2022 Telemedicine Family Medicine Sebastian Griffiths MD [address] [place], [place] [address] (Wo rk) documented as of this encounter Visit Diagnoses Diagnosis Generalized anxiety disorder documented in this encounter Care Teams Metal Gauge Maker Relationship Specialty Start Date End Date Sebastian Griffiths MD PCP - General 10/24/[address] [place] [phone] documented as of this encounter
--- OUTSIDE RECORDS SUMMARY | 2021-12-09 21:23 | XMS_ITS | Encounter Summary ---
:1950 Author Organization [facility] Address [address] [place] [address] Care Team Providers Name Role Phone Sebastian Griffiths MD Primary Care Provider Encounter Details Date Type Department Care Team Description 07/16/2021 Orders Only SE Family Med Sebastian Griffiths, Gastro-esophageal [address] [facility] [place] [address] esophagitis (Primary [phone] Dx) [place] [address] Social History Tobacco Use Types Packs/Day Years [...] or relatives? How often do you attend spiritism or Never 2020 confucianist services? Do you belong to any clubs or No 05/18/2020 organizations such as spiritism groups, unions, fraternal or athletic groups, or [...] Telemedicine Family Medicine Sebastian Griffiths MD [address] [place], [place] [address] (Wo rk) documented as of this encounter Visit Diagnoses Diagnosis Gastro-esophageal reflux disease without esophagitis - Primary documented in this encounter Care Teams Critical Care Cns Relationship Specialty Start Date End Date Sebastian Griffiths MD PCP - General 10/24/17 [address] [place], [place] [phone] documented as of this encounter
--- OUTSIDE RECORDS SUMMARY | 2021-12-09 21:23 | XMS_ITS | Encounter Summary ---
:[address] [facility] Address [address] [place] [address] Care Team Providers Name Role Phone Sebastian Griffiths MD Primary Care Provider Reason for Visit Reason Onset Date Comments Med Refill 09/13/2021 Encounter Details Date Type Department Care Team Description 09/13/2021 Refill SE Family Med Sebastian Griffiths MD Generalized anxiety [address] [facility] [address] [place] [address] [place] [address] [phone] (Wo rk) Social History Tobacco Use Types [...] or relatives? How often do you attend zoroastrianism or Never 2020 anglican services? Do you belong to any clubs or No 05/18/2020 organizations such as zoroastrianism groups, unions, fraternal or athletic groups, or [...] this encounter Miscellaneous Notes Telephone Encounter - Ana Coles LPN - 09/13/2021 11:10 AM CDT Last visit in provider department: 07/06/2021 Last visit requested medication was discussed: 07/06/2021 Last Rx: #90 with 0 refills 08/14/2021 Requested Prescriptions Pending Prescriptions Disp Refills ??? LORazepam (ATIVAN) 0.5 MG tablet 90 tablet 0 Sig: TAKE 1 TABLET BY MOUTH MOUTH EVERY 8 HOURS Labs: N/A Last PHQ-9 score 6 Date 07/06/2021 Last SUMI-7 score 9 Date 07/06/2021 Vitals: BP Readings from Last 2 Encounters: 07/14/21 127/67 06/01/21 126/74 Upcoming appointment with provider: 10/19/2021 Please review and advise. documented in this encounter Plan of Treatment Upcoming Encounters Date Type Specialty Care Team Description 01/18/2022 Telemedicine Family Medicine Sebastian Griffiths MD [address] [place] [phone] (Wo rk) documented as of this encounter Visit Diagnoses Diagnosis Generalized anxiety disorder documented in this encounter Care Teams Rehabilitation Counselor Relationship Specialty Start Date End Date Sebastian Griffiths MD PCP - General 10/24/[address] [place] [address] documented as of this encounter
--- OUTSIDE RECORDS SUMMARY | 2021-12-09 21:23 | XMS_ITS | Encounter Summary ---
:1950 Author Organization [facility] Address [address] [place] [address] Care Team Providers Name Role Phone Sebastian Griffiths MD Primary Care Provider Reason for Visit Reason Onset Date Comments Med Refill 11/24/2021 Encounter Details Date Type Department Care Team Description 11/24/2021 Refill SE Family Med Sebastian Griffiths MD Generalized anxiety disorder; [address] Uncontrolled type 2 diabetes mellitus wi th hyperglycemia (HCC) [place] [address] [place] [address] [phone] (Wo rk) Social History Tobacco Use Types [...] or relatives? How often do you attend episcopal or Never 2020 confucianism services? Do you belong to any clubs or No 05/18/2020 organizations such as episcopal groups, unions, fraternal or athletic groups, or [...] Telephone Encounter - Catherine Frank LPN - 11/24/2021 6:34 AM CDT Last visit in provider department: 07/06/21 Last visit requested medication was discussed:07/06/21 Last Rx: insulin lispro (HumaLOG) 100 UNIT/ML injection 06/11/21 #15ml with 2 refills LORazepam (ATIVAN) 0.5 MG tablet 10/21/21 #90 no refills Requested Prescriptions Pending Prescriptions Disp Refills ??? LORazepam (ATIVAN) 0.5 MG tablet 90 tablet 0 Sig: TAKE 1 TABLET BY MOUTH MOUTH EVERY 8 HOURS ??? insulin lispro (HumaLOG) 100 UNIT/ML injection 15 mL 2 Sig: Inject 0-7 units subcutaneous twice a day before lunch and dinner per sliding scale Labs: Component Latest Ref Rng & Units [...] Calcium, Total,S 8.4 - 10.2 mg/dL 10.1 Component Latest Ref Rng & Units 06/01/2021 GFR >60 GFR >60 Component Latest Ref Rng & Units 06/01/2021 Cholesterol 0 - 199 mg/dL 154 Triglycerides 0 - 149 mg/dL 216 (H) HDL 40 - 250 mg/dL 42 LDL Calculated 0 - 99 mg/dL 69 Vitals: BP Readings from Last 2 Encounters: 07/14/21 127/67 06/01/21 126/74 07/06/21 PHQ9- 6 GAD7- 9 Upcoming appointment with provider: 01/18/2022 documented in this encounter Plan of Treatment Upcoming Encounters Date Type Specialty Care Team Description 01/18/2022 Telemedicine Family Medicine Sebastian Griffiths MD [address] [place] [address] (Wo rk) documented as of this encounter Visit Diagnoses Diagnosis Generalized anxiety disorder Uncontrolled type 2 diabetes mellitus wi th hyperglycemia (HCC) documented in this encounter Care Teams Production Line Solderer Relationship Specialty Start Date End Date Sebastian Griffiths MD PCP - General 10/24/17 [address] [place], [place] [phone] documented as of this encounter
--- OUTSIDE RECORDS SUMMARY | 2021-12-09 21:23 | XMS_ITS | Encounter Summary ---
:1950 Author Organization [facility] Address [address] [place] [address] Care Team Providers Name Role Phone Sebastian Griffiths MD Primary Care Provider Reason for Visit Reason Onset Date Comments Post-op Problem 07/19/2021 Encounter Details Date Type Department Care Team Description 07/19/2021 Telephone [facility] Sebastian Griffiths MD Post-op Problem [address] [facility] [address] [place] [address] [place] [address] (Wo rk) Social History Tobacco Use Types [...] or relatives? How often do you attend methodist or Never 2020 scientologist services? Do you belong to any clubs or No 05/18/2020 organizations such as methodist groups, unions, fraternal or athletic groups, or [...] this encounter Miscellaneous Notes Telephone Encounter - Sebastian Griffiths MD - 07/23/2021 4:33 PM CDT Ok, thanks. Telephone Encounter - Ailin George LPN - 07/19/2021 4:17 PM CDT Pt contacted and states she is having sharp pains in her stomach that come and go since her procedure 07/14/21 with eating or drinking. She states she is taking her Pantoprazole every am 30 prior to eating and her famotidine every evening. Pt denies vomiting and having any bloody or dark stools. Pt declined OV with general surgery and states she is fine to wait till next available with Dr Griffiths. Callsent to PSR to schedule. Telephone Encounter - Annabella Marroquin RN - 07/19/2021 3:56 PM CDT Patient calls and did not want to talk to me, the triage nurse. She states she is feels like there is glass in her stomach when she swallows. She is wanting a call from Dr. Griffiths when he has time or his nurse. Please call her [phone]. documented in this encounter Plan of Treatment Upcoming Encounters Date Type Specialty Care Team Description 01/18/2022 Telemedicine Family Medicine Sebastian Griffiths MD [address] [place], [place] [address] (Wo rk) documented as of this encounter Visit Diagnoses Not on filedocumented in this encounter Care Teams Actuarial Intern Relationship Specialty Start Date End Date Sebastian Griffiths MD PCP - General 10/24/17 [address] [place] [address] documented as of this encounter
--- OUTSIDE RECORDS SUMMARY | 2021-12-09 21:23 | XMS_ITS | Encounter Summary ---
:1950 Author Organization [facility] Address [address] [place] [address] Care Team Providers Name Role Phone Sebastian Griffiths MD Primary Care Provider Reason for Visit Reason Onset Date Comments Registry Management 11/09/2021 Encounter Details Date Type Department Care Team Description 11/09/2021 Telephone [facility] Sebastian Griffiths MD Registry Management [address] [facility] [address] [place] [address] [place] [address] [phone] (Wo rk) Social History Tobacco Use Types [...] or relatives? How often do you attend rastafari or Never 2020 sabianism services? Do you belong to any clubs or No 05/18/2020 organizations such as rastafari groups, unions, fraternal or athletic groups, or [...] this encounter Miscellaneous Notes Telephone Encounter - Liyah Barnett LPN - 11/09/2021 12:38 PM CDT Pt up to date per Diabetic Registry. No further actions required at this time. Next visit with PCP 11/16/21 Labs ordered Last A1C 8.2 on 06/01/21 documented in this encounter Plan of Treatment Upcoming Encounters Date Type Specialty Care Team Description 01/18/2022 Telemedicine Family Medicine Sebastian Griffiths MD [address] [place], [place] [address] (Wo rk) documented as of this encounter Visit Diagnoses Not on filedocumented in this encounter Care Teams Hotel Assistant General Manager Relationship Specialty Start Date End Date Sebastian Griffiths MD PCP - General 10/24/[address] [place] [phone] documented as of this encounter
--- OUTSIDE RECORDS SUMMARY | 2021-12-09 21:23 | XMS_ITS | Encounter Summary ---
:[address] [facility] Address [address] [place] [address] Care Team Providers Name Role Phone Sebastian Griffiths MD Primary Care Provider Reason for Visit Reason Onset Date Comments Med Refill 08/09/2021 Encounter Details Date Type Department Care Team Description 08/09/2021 Refill [facility] Family Med Sebastian Griffiths MD Chronic pain syndrome; [address] [place] [address] [place] [address] [phone] (Wo rk) Social History Tobacco Use Types [...] do you attend cheondoism or Never 2020 jain services? Do you [...] this encounter Miscellaneous Notes Telephone Encounter - Joanna White APRN, CNP - 08/09/2021 3:52 PM CDT Please advise prescriptions were sent to pharmacy Telephone Encounter - Annabella Marroquin RN - 08/09/2021 2:19 PM CDT Tia calling from [facility] calls and states patient is out of Oxycodone. Would like this refilled today if possible. Last refill 07/09/21 Telephone Encounter - Catherine Frank LPN - 08/09/2021 7:53 AM CDT Last visit in provider department: 07/06/21 Last visit requested medication was discussed:07/06/21 Last Rx: oxycodone 07/09/21 #180 no refills miralax 04/23/21 #578g with 2 refills Requested Prescriptions Pending Prescriptions Disp Refills ??? oxyCODONE (ROXICODONE) 5 MG immediate release tablet 180 tablet 0 Sig: Take 2 tablets (10 mg total) by mouth every 6 (six) hours if needed for moderate pain May takeevery 6 hours but still only 6 tabs total per day. ??? polyethylene glycol (GLYCOLAX) 17 GM/SCOOP powder 578 g 11 Sig: Take 17 g by mouth 1 (one) time each day Labs: Vitals: BP Readings from Last 2 Encounters: 07/14/21 127/67 06/01/21 126/74 Upcoming appointment with provider: Visit date not found 01/25/21 CSA documented in this encounter Plan of Treatment Upcoming Encounters Date Type Specialty Care Team Description 01/18/2022 Telemedicine Family Medicine Sebastian Griffiths MD [address] [place], [place] [address] (Wo rk) documented as of this encounter Visit Diagnoses Diagnosis Chronic pain syndrome Chronic constipation Unspecified constipation documented in this encounter Care Teams Hand Roller Relationship Specialty Start Date End Date Sebastian Griffiths MD PCP - General 10/24/17 [address] [place] [address] documented as of this encounter
--- OUTSIDE RECORDS SUMMARY | 2021-12-09 21:23 | XMS_ITS | Encounter Summary ---
:1950 Author Organization [facility] Address [address] [place] [address] Care Team Providers Name Role Phone Sebastian Griffiths MD Primary Care Provider Encounter Details Date Type Department Care Team Description 09/30/2021 Telephone [facility] Family Med Sebastian Griffiths MD [address] [facility] [address] [place] [address] [place] [address] [phone] (Wo rk) Social History Tobacco Use Types [...] or relatives? How often do you attend taoist or Never 2020 sabianism services? Do you belong to any clubs or No 05/18/2020 organizations such as taoist groups, unions, fraternal or athletic groups, or [...] this encounter Miscellaneous Notes Telephone Encounter - Ralph Nogueira RN - 10/01/2021 9:54 AM CDT Hesham, drafter tool design was notified oxycodone was refilled to an every 8 hour schedule. Telephone Encounter - Ralph Nogueira RN - 10/01/2021 8:33 AM CDT Left message to call back. Telephone Encounter - Sebastian Griffiths MD - 09/30/2021 6:03 PM CDT Dosing on this refill now changed to q 8 hours scheduled. Thanks. Telephone Encounter - Ev Rice RN - 09/30/2021 9:37 AM CDT The oxycodone was changed from a scheduled dose to PRN. The DON states since this change the patientis frequently asking for her PRN at all times of the day and night. She has called the police to report that the facility is with holding her medications. She is more zoned and running her cart into the jacobo. The DON feels it was safer when scheduled and then patient had an idea of when the next doseis scheduled, avoiding her demanding behavior. She is yelling in the background for her medication. She has faxed this request to the floor on Monday and resending today. Please review and consider ascheduled dose over PRN. documented in this encounter Plan of Treatment Upcoming Encounters Date Type Specialty Care Team Description 01/18/2022 Telemedicine Family Medicine Sebastian Griffiths MD [address] [place], [place] [address] (Wo rk) documented as of this encounter Visit Diagnoses Diagnosis Chronic pain syndrome documented in this encounter Care Teams Mines Inspector Relationship Specialty Start Date End Date Sebastian Griffiths MD PCP - General 10/24/17 [address] [place] [address] documented as of this encounter
--- OUTSIDE RECORDS SUMMARY | 2021-12-09 21:23 | XMS_ITS | Encounter Summary ---
:[address] [facility] Address [address] [place] [address] Care Team Providers Name Role Phone Sebastian Griffiths MD Primary Care Provider Reason for Visit Reason Onset Date Comments Med Refill 10/11/2021 Encounter Details Date Type Department Care Team Description 10/11/2021 Refill SE Family Med Sebastian Griffiths MD Encounter for smoking [address] [facility] [address] cessation [place] [address] [place] [address] [phone] (Wo rk) Social History Tobacco Use Types [...] or more drinks on one occasion? Ne pual 06/23/2020 Comment: Not asked Social Isolation Answer Date Recorded In a typical week, how many times do you More than three ivette es a week 05/18/2020 talk on the phone with family, friends, or neighbors? How often do you get together with friends Twice a week 05/18/2020 or relatives? How often do you attend rastafarian or Never 2020 sabianist services? Do you belong to any clubs or No 05/18/2020 organizations such as rastafarian groups, unions, fraternal or athletic groups, or [...] Telephone Encounter - Catherine Frank LPN - 10/11/2021 11:27 AM CDT Last visit in provider department: 07/06/21 Last visit requested medication was discussed:04/13/21 Last Rx: 05/24/21 #30 with 3 refills Requested Prescriptions Pending Prescriptions Disp Refills ??? nicotine (NICODERM CQ) 21 MG/24HR 30 patch 3 Sig: Place 1 patch on the skin 1 (one) time each day at the same time Labs: Vitals: BP Readings from Last 2 Encounters: 07/14/21 127/67 06/01/21 126/74 Upcoming appointment with provider: 11/16/2021 documented in this encounter Plan of Treatment Upcoming Encounters Date Type Specialty Care Team Description 01/18/2022 Telemedicine Family Medicine Sebastian Griffiths MD [address] [place], [place] [address] (Wo rk) documented as of this encounter Visit Diagnoses Diagnosis Encounter for smoking cessation counseli ng documented in this encounter Care Teams Cold Roll Catcher Relationship Specialty Start Date End Date Sebastian Griffiths MD PCP - General 10/24/[address] [place] [phone] documented as of this encounter
--- OUTSIDE RECORDS SUMMARY | 2021-12-09 21:23 | XMS_ITS | Encounter Summary ---
:1950 Author Organization [facility] Address [address] [place] [address] Care Team Providers Name Role Phone Sebastian Griffiths MD Primary Care Provider Reason for Visit Reason Onset Date Comments Med Refill 08/12/2021 Encounter Details Date Type Department Care Team Description 08/12/2021 Refill SE Family Med Sebastian Griffiths MD Generalized anxiety [address] [facility] [address] [place] [address] [place] [address] [phone] (Wo rk) Social History Tobacco Use Types [...] do you attend congregation or Never 2020 catholic services? Do you belong to any clubs [...] this encounter Miscellaneous Notes Telephone Encounter - Eilceo Villalta - 08/17/2021 10:29 AM CDT Scheduled. Telephone Encounter - Rehana Luong - 08/17/2021 10:28 AM CDT Scheduled Telephone Encounter - Becki Blanco MA - 08/17/2021 9:10 AM CDT Patient is due for recheck back pain appointment around 10/05/2021. PSR: Please contact patient to assist with scheduling. Telephone Encounter - Lindsay Ny LPN - 08/12/2021 3:40 PM CDT Last visit in provider department: 07/06/2021 Last visit requested medication was discussed: 07/06/2021 Return in 3 months (around 10/05/2021) for recheck back pain Last Rx: 07/06/2021 # 90, 0 refills Requested Prescriptions Pending Prescriptions Disp Refills ??? LORazepam (ATIVAN) 0.5 MG tablet 90 tablet 0 Sig: TAKE 1 TABLET BY MOUTH MOUTH EVERY 8 HOURS 07/06/2021 PHQ9: 6 / GAD7: 9 Vitals: BP Readings from Last 2 Encounters: 07/14/21 127/67 06/01/21 126/74 Upcoming appointment with provider: Visit date not found Patient is due for recheck back pain appointment around 10/05/2021. PSR/Nurse: Please contact patientto assist with scheduling. documented in this encounter Plan of Treatment Upcoming Encounters Date Type Specialty Care Team Description 01/18/2022 Telemedicine Family Medicine Sebastian Griffiths MD [address] [place], [place] [address] (Wo rk) documented as of this encounter Visit Diagnoses Diagnosis Generalized anxiety disorder documented in this encounter Care Teams Background Investigator Relationship Specialty Start Date End Date Sebastian Griffiths MD PCP - General 10/24/17 [address] [place], [place] [phone] documented as of this encounter
--- OUTSIDE RECORDS SUMMARY | 2021-12-09 21:24 | XMS_ITS | Encounter Summary ---
:[address] [facility] Address [address] [place] [address] Care Team Providers Name Role Phone Sebastian Griffiths MD Primary Care Provider Encounter Details Date Type Department Care Team Description 06/01/2021 Orders Only SE Family Med Sebastian Griffiths, Type II diabetes [address] [facility] [place] [address] peripheral circulatory [phone] SE disorder (HCC) [place], [place] (Primary Dx) [address] Social History Tobacco Use Types Packs/Day [...] or relatives? How often do you attend shinto or Never 2020 mandaeism services? Do you belong to any clubs or No 05/18/2020 organizations such as shinto groups, unions, fraternal or athletic groups, or [...] 01/18/2022 Telemedicine Family Medicine Sebastian Griffiths MD [address] [place] [address] (Wo rk) Scheduled Orders Name Type Priority Associated Diagnoses Order S chedule Hemoglobin A1c Lab Routine Type II diabetes mellitus with Expected: 11/16/2021, peripheral circulatory Expir es: 06/01/2022 disorder (HCC) documented as of this encounter Visit Diagnoses Diagnosis Type II diabetes mellitus with periphera l circulatory disorder (HCC) - Primary Type II or unspecified type diabetes giuseppe litus with peripheral circulatory disorders, not stated as uncontrolled documented in this encounter Care Teams Chainstitch Pants Outseamer Relationship Specialty Start Date End Date Sebastian Griffiths MD PCP - General 10/24/[address] [place], [place] [phone] documented as of this encounter
--- OUTSIDE RECORDS SUMMARY | 2021-12-09 21:24 | XMS_ITS | Encounter Summary ---
:1950 Author Organization [facility] Address [address] [place] [address] Care Team Providers Name Role Phone Sebastian Griffiths MD Primary Care Provider Reason for Visit Reason Onset Date Comments medication clarification 03/09/2021 Encounter Details Date Type Department Care Team Description 03/09/2021 [facility]phone [facility]s, medication clarification [address] [facility] [address] [place] [address] [place] [address] Social History Tobacco Use Types Packs/Day Years Used Date Former Smoker Cigarettes 0.25 40 Quit: 04/20/19 Smokeless Tobacco: Never Used Alcohol Use Standard [...] or relatives? How often do you attend holiness or Never 2020 gnosticism services? Do you belong to any clubs or No 05/18/2020 organizations such as holiness groups, unions, fraternal or athletic groups, or [...] Telephone Encounter - Sebastian Griffiths MD - 03/09/2021 3:58 PM CST Done. Thanks. ER MACHINE Telephone Encounter - Tae Livingston RN - 03/09/2021 3:52 PM CST Received a fax from [facility] pharmacy in [place] requesting a new RX for the acetaminophen 500 mg. Tablets to be scheduled as patient has been getting them 2 tablets three times per day. RX pendedfor provider review. ER MACHINE documented in this encounter Plan of Treatment Upcoming Encounters Date Type Specialty Care Team Description 01/18/2022 Telemedicine Family Medicine Sebastian Griffiths MD [address] [place] [phone] (Wo rk) documented as of this encounter Visit Diagnoses Diagnosis Chronic pain syndrome documented in this encounter Care Teams Supervisory Cbp Officer Relationship Specialty Start Date End Date Sebastian Griffiths MD PCP - General 10/24/[address] [place] [phone] documented as of this encounter
--- OUTSIDE RECORDS SUMMARY | 2021-12-09 21:24 | XMS_ITS | Encounter Summary ---
:1950 Author Organization [facility] Address [address] [place] [address] Care Team Providers Name Role Phone Sebastian Griffiths MD Primary Care Provider Reason for Visit Reason Onset Date Comments Continued stomach pains. 04/21/2021 Encounter Details Date Type Department Care Team Description 04/21/2021 Telephone [facility] Sebastian Griffiths, Continued stomach [address] [facility] [place] [address] [place] [address] Avenue [phone] [place], [place] [address] Social History Tobacco Use Types Packs/Day Years [...] or relatives? How often do you attend restorationism or Never 2020 amish services? Do you belong to any clubs or No 05/18/2020 organizations such as restorationism groups, unions, fraternal or athletic groups, or [...] Telephone Encounter - Sebastian Griffiths MD - 04/21/2021 5:25 PM CST Noted, thanks. R HAND Telephone Encounter - Vianca Camejo RN - 04/21/2021 12:40 PM CST Patient calls, patient states she is having upper abdominal pain, like she has had before, states 10out of 10, wants to be admitted to the hospital, able to talk in no acute distress, states vomited twice today, denies diarrhea or fever. Patient would like to speak to provider, informed not in officetoday, nurse unsure if provider would be calling her back today. Patient states she has transportation to [facility] if needed. R HAND documented in this encounter Plan of Treatment Upcoming Encounters Date Type Specialty Care Team Description 01/18/2022 Telemedicine Family Medicine Sebastian Griffiths MD [address] [place], [place] [address] (Wo rk) documented as of this encounter Visit Diagnoses Not on filedocumented in this encounter Care Teams Sales And Support Center Agent Relationship Specialty Start Date End Date Sebastian Griffiths MD PCP - General 10/24/17 [address] [place], [place] [phone] documented as of this encounter
--- OUTSIDE RECORDS SUMMARY | 2021-12-09 21:24 | XMS_ITS | Encounter Summary ---
:1950 Author Organization [facility] Address [address] [place] [address] Care Team Providers Name Role Phone Rocío [...] Expiration Date Visits Requ ested Visits Authorized [id number] 1 1 Encounter Details Date Type Department Care Team Description 07/14/2021 Hospital Encounter [facility] Endosco py Debi Hall MD [address] [place] [address] [place] [address] [place] [phone] (Wo rk) Social History Tobacco Use Types [...] or relatives? How often do you attend anabaptism or Never 2020 mormonism services? Do you belong to any clubs or No 05/18/2020 organizations such as anabaptism groups, unions, fraternal or athletic groups, or [...] level of school you have High school kathya maura 05/18/2020 completed or the highest degree [...] doctor in the General Surgery Dept at [phone] between 8am-5pm Mon-Fri. If calling after hours or on the weekend,call [facility] ER Dept at [phone] You had ___3__ biopsies done during your procedure today Follow-up If a polyp or biopsy (tissue specimen) has been obtained, it is being sent to pathology for analysis. It will take approximately 5-7 days for the report to return to the healthcare provider. You will be notified by phone or letter of those results by your political organizer. It is important for you to follow [...] vomiting of blood. IF QUESTIONS PLEASE CALL [phone] M-F 7-3, IF AFTER THESE HOURS PLEASE CALL [phone] documented in this encounter Medications at Time [...] Chronic obstructive pulmonary disease, unspecified COPD type ([facility]) amLODIPine (NORVASC) 5 MG TAKE 1 TABLET BY 28 tablet 12 10/2021 tabletIndications: MOUTH DAILY Hypertension, essential, benign aspirin (Aspirin Low Dose) CHEW ONE TABLET BY 100 tablet 4 1 81 MG chewable MOUTH DAILY tabletIndications: Controlled type 2 diabetes mellitus without complication, without long-term current use of insulin ([facility]) Blood Glucose Monitoring USE DIRECTED TO 1 kit 0 Suppl (Accu-Chek Guide) TEST BLOOD SUGARS w/Device kitIndications: FOUR TIMES DAILY Type II diabetes mellitus with peripheral circulatory disorder ([facility]) Continuous Blood Gluc Sensor 1 application 3 1 each 11 (FreeStyle Kristie 14 Day (three) times a Sensor) miscIndications: day Uncontrolled type 2 diabetes mellitus with hyperglycemia ([facility]) docusate sodium (COLACE) 100 Take 100 mg [...] MOUTH DAILY depressive disorder, recurrent episode, moderate ([facility]) EPINEPHrine (EpiPen 2-Jack) Inject 0.3 mL (0.3 0.3 mL 2 0 12/01/2020 0.3 MG/0.3ML injection mg total) into the syringeIndications: Bee thigh if needed sting allergy for anaphylaxis. Call 911 after use. gabapentin (NEURONTIN) 600 TAKE 1 TABLET BY 84 tablet 12 11/2021 MG tabletIndications: MOUTH 3 TIMES Degenerative disc disease, DAILY lumbar, Uncontrolled type 2 diabetes mellitus with hyperglycemia ([facility]) hydroCHLOROthiazide TAKE 1 TABLET BY 28 tablet 12 05/25/2021 (HYDRODIURIL) 25 MG MOUTH DAILY tabletIndications: Hypertension, essential, benign hydrOXYzine (ATARAX) 25 MG TAKE ONE TABLET BY 90 tablet 11 0 06/11/2021 tabletIndications: Anxiety, MOUTH EVERY 8 Pruritic condition HOURS NEEDED FOR ITCHING ketorolac (ACULAR) 0.5 % Administer 1 drop 0 07/2018 ophthalmic solution into affected eye(s) 4 times daily latanoprost (Xalatan) 0.005 Administer 1 drop 7.5 mL 3 1 % ophthalmic into both eyes solutionIndications: every night Allergic conjunctivitis, unspecified laterality Lubricating Plus Eye Drops 0 2 0.5 % solution Misc. Devices (RECONSTITUBE) glucometer strips 0 10/29/2015 misc See Instructions, testing strips-please fill brand covered by insurance., 100 each, 5 Refill(s) Misc. Devices (RECONSTITUBE) flex pen needles 0 0 10/08/2015 misc See Instructions, flex pen needles, 100 each, 5 Refill(s) Misc. Devices (RECONSTITUBE) lancet See 0 016 misc Instructions, lancets, 100 each, 5 Refill(s) Misc. Devices (RECONSTITUBE) glucometer See 0 misc Instructions, glucose monitor, 1 each, 0 Refill(s) [...] type 2 diabetes day mellitus with hyperglycemia ([facility]) senna (SENOKOT) 8.6 MG Take 2 tablets by 0 tablet mouth every night SEREVENT DISKUS 50 MCG/DOSE Inhale 1 puff 2 0 06/2019 diskus inhaler (two) times a day Sharps Container (GUARDIAN SHARPS 0 1 Sharps Design Technician) misc SITagliptin (Januvia) 100 MG TAKE 1 TABLET BY 28 tablet 12 0 05/25/2021 tabletIndications: MOUTH DAILY Controlled type 2 diabetes mellitus without complication, without long-term current use of insulin ([facility]) sodium chloride (OCEAN) 0.65 Administer 2 0 [...] documented as of this encounter H&P Notes Debi Hall MD - 07/14/2021 11:39 AM CDT H&P reviewed. The patient was evaluated and no changes in presentation from the date of prior H&P. Patient examined: Vitals stable, no changes in examination on cardiovascular system and respiratory status. Plan: Okay to proceed with the procedure under conscious sedation. documented in this encounter Procedure Notes Debi Hall MD - 07/14/2021 10:50 AM CDT [...] Time PATHOLOGY Small Intestine, Duodenum Collected By: Debi Hall MD 07/14/2021 12:17 PM Collection Date 07/14/2021 Complications: None; patient tolerated the procedure well. Condition: stable Impression: -Normal upper endoscopy, with no endoscopic evidence of neoplasia or mucosal abnormality. Recommendations: -Await pathology., -Follow up with primary care physician documented in this encounter Miscellaneous Notes Result Encounter Note - Debi Hall MD - 07/14/2021 1:13 PM CDT Related patient pathology from the endoscopy is benign confirm reactive gastropathy. Esophageal biopsies consistent with reflux. Recommend follow-up with primary physician for management and further recommendations documented in this encounter Plan of Treatment Upcoming Encounters Date Type Specialty Care Team Description 01/18/2022 Telemedicine Family Medicine Rocío Griffiths MD [address] [place] [address] (Wo rk) documented as of this [...] Tissue 07/14/2021 12:12 (Esophagus) PM CDT Narrative [facility] - 06/19 7:11 PM CDT ? [facility] ? [address] ?[place] [address] ? Patient: ?RENA GALVEZ ?Procedure: ? 07/14/2021 12:12 /Age/Sex: ??1950, 71 Y, F ?Received: ?07/14/2021 13:36 ? Accession #: ?? [id number] Billing: ?[id number] ? Patient Location: OUT-PATIENT ? SERVICES Ordered by: ?? DEBI HALL MD. ?Attending: ? DEBI HALL MD. ?S URGICAL PATHOLOGY FINAL REPORT COPY TO: ROCÍO GRIFFITHS MD; DEBI Springer MD. SPECIMEN: (A) DUODENUM BIOPSY (B) [...] completel y submitted into cassette C1. HAYLEY MISTRY ([facility]) CM Patient's identification labels match [...] ??07/15/2021 ??19:11 ? Page 1 of 1 Debi Hall MD LAB PATHOLOGY ORDERABLES Performing Organization Address City/State/ZIP Code Phon e Number [facility] [address] [place] [address] (ABNORMAL) POCT Precision glucose (07/14/2021 11:47 AM CDT) P athologist Signature Glucose Blood, 103 (H) 70 - 100 07/14/2021 [place] [facility] mg/dL 11:47 AM CDT [facility] Comment: Meter ID: [id number] Capillary whole blood specimens should n ot [...] 11:47 07/14/2021 AM CDT 11:48 AM CDT Debi Hall MD LAB POINT OF CARE TEST DOCKE D DEVICE UNSOLICITED RESULTS Performing Organization Address City/State/ZIP Code Phon e Number [facility] [address] [place] [address] documented in this encounter Visit Diagnoses Not on filedocumented in this encounter Administered Medications Inactive Administered Medications - up to 3 most recent administrations Medication Order MAR Action Action Date Dose Rate Site atropine injection 0.4 mg 0.4 mg, Intravenous, Once as needed, Bra dycardia, Starting on Mon07/14/21 at 1132, For 10 days, Preprocedure Glucagon HCl (rDNA) injection 1 mg 1 [...] Mon07/14/21 at 1132, For 5 days, Preprocedure ondansetron (ZOFRAN) injection 4 mg 4 mg, Intravenous, Once as needed, nause a, Starting on Mon07/14/21 at 1132, For 1 dose, Preprocedure sodium chloride 0.9 % flush 2 mL 2 mL, Intravenous, Every 8 hours PRN, [facility] care, Starting on Mon07/14/21 at 1132, For 5 days, Preprocedure documented in this encounter Active and Recently Administered Medications Times are shown in CDT. Scheduled Medication Order 07/12/2021 07/13/2021 07/14/2021 benzocaine (HURRICAINE) 20 % mouth spray 1 spray (COMPLETED) 1204 (Given - Provider: Kimber Johnson, RN)1230 (Due) 1 spray, Mouth/Throat, call specialist, On Mon at 1230, For 1 dose, Preprocedure, As needed for Gastroscopy. Continuous Medication Order 07/12/2021 07/13/2021 07/14/2021 lactated Ringer's infusion 1148 (New Bag - Provider: Yael Douglas, MARLENE)1301 (Stopped - Provider: Rocío Mckee RN) 100 mL/hr, Intravenous, Continuous, Star ting on Mon07/14/21 at 1230, For 5 days, Preprocedure PRN Medication Order 07/12/2021 07/13/2021 07/14/2021 atropine injection 0.4 mg 0.4 mg, Intravenous, Once as needed, Bra dycardia, Starting on Mon07/14/21 at 1132, For 10 days, Preprocedure fentaNYL (SUBLIMAZE) injection (CANCELED) 1209 (Given - Provider: Kimber Johnson, RN) As needed, Starting on Mon07/14/21 at 1209, [...] injection (CANCELED) 1203 (Given - Provider: Kimber Johnson, RN)1206 (Given - Provider: Kimber Johnson, RN)1212 (Given - Provider: Kimber Johnson RN) As needed, Starting on Mon07/14/21 at 1203, Intraprocedure ondansetron (ZOFRAN) injection 4 mg 4 mg, Intravenous, Once as needed, nause a, Starting on Mon07/14/21 at 1132, For 1 dose, Preprocedure sodium chloride 0.9 % flush 2 mL(Linked Group 1) 2 mL, Intravenous, Every 8 hours PRN, li ne care, Starting on Mon07/14/21 at 1132, For [...] mL, Intravenous, Every 8 hours PRN, li ne care, Starting on Mon07/14/21 at 1132, For 5 days, Preprocedure And lidocaine 1% (XYLOCAINE) 1 % injection 10 mgJump to med 10 mg (1 mL), Subcutaneous, Once as need ed, For IV start, Starting on Mon07/14/21 at 1132, For 5 days, Preprocedure documented in this encounter Care Teams Mine Surveyor Relationship Specialty Start Date End Date Rocío Griffiths MD PCP - General 10/24/[address] [place] [address] documented as of this encounter
--- OUTSIDE RECORDS SUMMARY | 2021-12-09 21:24 | XMS_ITS | Encounter Summary ---
:1950 Author Organization [facility] Address [address] [place] [address] Care Team Providers Name Role Phone Sebastian Griffiths MD Primary Care Provider Reason for Visit Reason Onset Date Comments Med Refill 04/08/2021 Encounter Details Date Type Department Care Team Description 04/08/2021 Refill SE Family Med Sebastian Griffiths MD Chronic pain syndrome [address] [facility] [address] [place] [address] [place] [address] [phone] (Wo rk) Social History Tobacco Use Types Packs/Day Years Used Date Former Smoker Cigarettes 0.25 40 Quit: 04/20/19 21 Smokeless Tobacco: Never Used Alcohol Use Standard [...] or relatives? How often do you attend taoism or Never 2020 sabianism services? Do you belong to any clubs or No 05/18/2020 organizations such as taoism groups, unions, fraternal or athletic groups, or [...] for the very basics like Not h johnahtan at all 06/23/2020 food, housing, medical care, [...] of school you have High school kathya lorenzo 05/18/2020 completed or the highest degree you have received? Sex Assigned at Date Recorded Not on file documented as of this encounter Miscellaneous Notes Telephone Encounter - Tamie Shore MA - 04/08/2021 7:24 AM CST Last visit in provider department: 03/02/2021 Last visit requested medication was discussed: 12/03/2020 Upcoming appointment with provider: 04/13/2021 Last Rx: oxyCODONE (ROXICODONE) 5 MG immediate release tablet, #30 with no refills 03/24/2021 Requested Prescriptions Pending Prescriptions Disp Refills ??? oxyCODONE (ROXICODONE) 5 MG immediate release tablet 30 tablet 0 Sig: Take 2 tablets (10 mg total) by mouth every 8 (eight) hours CSA was last signed on 01/25/2021 Labs: Drug Screen Urine Order: [id number] Component Ref Range & Units 04/23/20 1214 Ethanol, Screen U NEGATIVE Negative Amphetamines, U NEGATIVE Negative Barbiturates, Screen, U NEGATIVE Negative Benzodiazepines, Screen, U NEGATIVE Negative Cocaine, Screen, U NEGATIVE Negative Opiates, Screen, U NEGATIVE Negative Phencyclidine, Screen, U NEGATIVE Negative Tetrahydrocannabinol, U NEGATIVE Negative Resulting Agency DTL Specimen Collected: 04/23/20 12:14 Last Resulted: 04/23/20 14:00 Received From: [facility] Result Received: 05/18/20 12:56 No pending lab found. Vitals: BP Readings from Last 2 Encounters: 03/02/21 112/78 02/19/21 140/80 Please advise, thank you. LY ANALYST documented in this encounter Plan of Treatment Upcoming Encounters Date Type Specialty Care Team Description 01/18/2022 Telemedicine Family Medicine Sebastian Griffiths MD [address] [place] [phone] (Wo rk) documented as of this encounter Visit Diagnoses Diagnosis Chronic pain syndrome documented in this encounter Care Teams Mold Yard Worker Relationship Specialty Start Date End Date Sebastian Griffiths MD PCP - General 10/24/[address] [place] [address] documented as of this encounter
--- OUTSIDE RECORDS SUMMARY | 2021-12-09 21:24 | XMS_ITS | Encounter Summary ---
:1950 Author Organization [facility] Address [address] [place] [address] Care Team Providers Name Role Phone Sebastian Griffiths MD Primary Care Provider Reason for Visit Reason Onset Date Comments Med Refill 04/14/2021 Encounter Details Date Type Department Care Team Description 04/14/2021 Refill SE Family Med Sebastian Griffiths MD Chronic pain syndrome [address] [facility] [address] [place] [address] [place] [address] [phone] (Wo rk) Social History Tobacco Use Types [...] or relatives? How often do you attend anglican or Never 2020 hindu services? Do you belong to any clubs or No 05/18/2020 organizations such as anglican groups, unions, fraternal or athletic groups, or [...] Telephone Encounter - Catherine Frank LPN - 04/14/2021 9:28 AM BI TRI OPERATOR Last visit in provider department: 04/13/2021 Last visit requested medication was discussed:04/13/21 Upcoming appointment with provider: 06/01/2021 Last Rx: 04/08/21 #30 Requested Prescriptions Pending Prescriptions Disp Refills ??? oxyCODONE (ROXICODONE) 5 MG immediate release tablet 30 tablet 0 Sig: Take 2 tablets (10 mg total) by mouth every 8 (eight) hours Labs: Vitals: BP Readings from Last 2 Encounters: 04/13/21 120/68 03/02/21 112/78 01/25/21 Opioid Aggreement TRI OPERATOR documented in this encounter Plan of Treatment Upcoming Encounters Date Type Specialty Care Team Description 01/18/2022 Telemedicine Family Medicine Sebastian Griffiths MD [address] [place], [place] [phone] (Wo rk) documented as of this encounter Visit Diagnoses Diagnosis Chronic pain syndrome documented in this encounter Care Teams Ad Writer Relationship Specialty Start Date End Date Sebastian Griffiths MD PCP - General 10/24/[address] [place] [phone] documented as of this encounter
--- OUTSIDE RECORDS SUMMARY | 2021-12-09 21:24 | XMS_ITS | Encounter Summary ---
:1950 Author Organization [facility] Address [address] [place] [address] Care Team Providers Name Role Phone Sebastian Griffiths MD Primary Care Provider Encounter Details Date Type Department Care Team Description 06/01/2021 Lab SE Lab Chronic pain syndrome; [address] [facility] Uncontrolled type 2 diabetes mellitus with hyperglycemia (HCC) [place] [address] Social History Tobacco Use Types [...] or relatives? How often do you attend pentecostal or Never 2020 nondenominational services? Do you belong to any clubs or No 05/18/2020 organizations such as pentecostal groups, unions, fraternal or athletic groups, or [...] Telemedicine Family Medicine Sebastian Griffiths MD [address] [place] [address] (Wo rk) documented as of this encounter Procedures Procedure Name Priority Date/Time Associated Diagnosis Comme nts GLOMERULAR Routine 06/01/2021 12:09 Uncontrolled type 2 Resu lts for this FILTRATION RATE PM CDT diabetes mellitus with pr ocedure are in hyperglycemia (HCC) the resu lts section. HEMOGLOBIN A1C Routine 06/01/2021 12:09 Uncontrolled type 2 Re sults for this PM CDT diabetes mellitus with proce dure are in hyperglycemia (HCC) the resu lts section. LIPID PANEL Routine 06/01/2021 12:09 Uncontrolled type 2 Resu lts for this PM CDT diabetes mellitus with proce dure are in hyperglycemia (HCC) the resu lts section. BASIC METABOLIC Routine 06/01/2021 12:09 Uncontrolled type 2 R esults for this PANEL PM CDT diabetes mellitus with proce dure are in hyperglycemia (HCC) the resu lts section. MICROALBUMIN/CREATI Routine 06/01/2021 11:40 Uncontrolled type 2 Results for this NINE RATIO AM CDT diabetes mellitus with proce dure are in hyperglycemia (HCC) the resu lts section. documented in this encounter Results Glomerular filtration rate (GFR) (06/01/2021 12:09 PM CDT) athologist Signature GFR >60 06/01/2021 [facility] 3:07 PM CDT [facility] >60 06/01/2021 [facility] [place] GFR 3:07 PM CDT [facility] Comment: GFR calculated from serum creatinine v alue Chronic Kidney Disease less than 60 mL/m in/1.73 m2 Kidney Failure less than 15 mL/min/1.73 m2 Note: effective 08/02/06 IDMS-Traceable MDRD Study Equation used. Specimen Anatomical Collection Method Collection Time Receive d Time (Source) Location / / Volume Laterality 06/01/2021 12:09 06/01/2021 PM CDT 12:09 PM CDT Sebastian Griffiths MD LAB BLOOD ORDERABLES Performing Organization Address City/State/ZIP Code Phon e Number [facility] [address] [place] [address] (ABNORMAL) Hemoglobin A1c (06/01/2021 12:09 PM CDT) Analysis Performed At Patho logist Time Signature Hemoglobin A1C 8.2 (H) 4.0 - 5.6 06/01/2021 [place] % A1C 5:10 PM [facility] Comment: Reference Range 4.0-5.6% is for non-preg nant adults >=18 yrs <5.6% ? Non-Diabetic 5.7-6.4% ??Increased risk of Diabetes >=6.5% ?Indicative of Diabetes <7.0% ? ADA goal for glycemic contro l Methodology may not detect all hemoglobi n variants which can affect A1c results. Method certified by National Glycohemoglobin Standardization Program. Specimen Anatomical Collection Method Collection Time Receive d Time (Source) Location / / Volume Laterality Blood 06/01/2021 12:09 06/01/2021 2:10 PM CDT PM CDT Sebastian Griffiths MD LAB BLOOD ORDERABLES Performing Organization Address City/State/ZIP Code Phon e Number [facility] [address] [place] [address] (ABNORMAL) Lipid panel (06/01/2021 12:09 PM CDT) athologist Signature Cholesterol 154 0 - 199 06/01/2021 [facility] mg/dL 3:07 PM [facility] Comment: Recommended by National Cholesterol Education Program (ATP III) -------- Cholesterol Ranges -------- <200 ?Desirable 200-239 ? Borderline high >=240 ? High Triglycerides 216 (H) 0 - 149 mg/dL 06/01/2021 3:07 PM T [facility] Comment: -------- TRIG Ranges -------- <150 ?Normal 150-199 ? Borderline high 200-499 ? High >=500 ? Very high HDL 42 40 - 250 mg/dL 06/01/2021 3:07 PM T [facility] Comment: -------- HDL Ranges -------- <40 ?Low 40-59 ?Normal >=60 ? Optimal LDL Calculated 69 0 - 99 mg/dL 06/01/2021 3:07 PM T [facility] Comment: -------- LDL Ranges -------- <100 ? Optimal 100-129 ?Near optimal/above op timal 130-159 ?Borderline high 160-189 ?High >=190 ?Very high Specimen Anatomical Collection Method Collection Time Receive d Time (Source) Location / / Volume Laterality Blood 06/01/2021 12:09 06/01/2021 2:10 PM CDT PM CDT Sebastian Griffiths MD LAB BLOOD ORDERABLES Performing Organization Address City/State/ZIP Code Phon e Number [facility] [address] [place] [address] (ABNORMAL) Basic metabolic panel (06/01/2021 12:09 PM CDT) Analysis Performed At Patho logist Time Signature Sodium 139 135 - 145 06/01/2021 [place] mEq/L 3:07 PM [facility] Potassium 3.9 3.5 - 5.1 06/01/2021 [place] mEq/L 3:07 PM [facility] Chloride 99 98 - 107 06/01/2021 [place] mEq/L 3:07 PM [facility] CO2 31 (H) 22 - 29 06/01/2021 [place] mmol/L 3:07 PM [facility] Creatinine 0.9 0.4 - 1.2 06/01/2021 [place] mg/dL 3:07 PM [facility] BUN 10 5 - 25 06/01/2021 [place] mg/dL 3:07 PM [facility] Glucose 151 (H) 70 - 100 06/01/2021 [place] mg/dL 3:07 PM [facility] Calcium, 10.1 8.4 - 10.2 06/01/2021 [place] Total,S mg/dL 3:07 PM [facility] Fasting? No 06/01/2021 [place] 12:09 PM [facility] Specimen Anatomical Collection Method Collection Time Receive d Time (Source) Location / / Volume Laterality Blood 06/01/2021 12:09 06/01/2021 2:10 PM CDT PM CDT Sebastian Griffiths MD LAB BLOOD ORDERABLES Performing Organization Address [facility] Phon e Number [facility] [address] [place] [address] (ABNORMAL) Microalbumin/Creatinine Ratio (06/01/2021 11:40 AM CDT) [facility] Method Time Signature Microalbumin,m 135.7 (H) 0.0 - 16.6 06/01/2021 [place] g/day mg/L 3:08 PM [facility] Comment: . Creatinine, Urine 248 mg/dL 06/01/2021 3:07 PM [facility] Comment: No established reference range. Microalb/Creat Ratio 55 (H) 0 - 24 mg/g 06/01/2021 3:08 P M [facility] Specimen Anatomical Collection Method Collection Time Receive d Time (Source) Location / / Volume Laterality Urine 06/01/2021 11:40 06/01/2021 2:10 AM CDT PM CDT Sebastian Griffiths MD LAB URINE ORDERABLES Performing Organization Address [facility]/ZIP [facility] Phon e Number [facility] [address] [place] [address] documented in this encounter Visit Diagnoses Diagnosis Chronic pain syndrome Uncontrolled type 2 diabetes mellitus wi th hyperglycemia (HCC) documented in this encounter Care Teams Operator Coating Furnace Relationship Specialty Start Date End Date Sebastian Griffiths MD PCP - General 10/24/17 [address] [place] [address] documented as of this encounter
--- OUTSIDE RECORDS SUMMARY | 2021-12-09 21:24 | XMS_ITS | Encounter Summary ---
:1950 Author Organization [facility] Address [address] [place] [address] Care Team Providers Name Role Phone Sebastian Griffiths MD Primary Care Provider Reason for Visit Reason Comments Med Refill Encounter Details Date Type Department Care Team Description 04/26/2021 Refill SE Family Med Sebastian Griffiths MD Degenerative disc disease, lumbar; [address] Uncontrolled type 2 diabetes mellitus wi th hyperglycemia (HCC); [place] [address] [place] [address] Chronic pain syndrome [phone] (Wo rk) Social History Tobacco Use Types [...] or relatives? How often do you attend moravian or Never 2020 roman catholic services? Do you belong to any clubs or No 05/18/2020 organizations such as moravian groups, unions, fraternal or athletic groups, or [...] encounter Miscellaneous Notes Telephone Encounter - Tamie Kuhn MA - 04/28/2021 8:35 AM CST Last visit in provider department: 04/13/2021 Last visit requested medication was discussed: 04/13/2021 Upcoming appointment with provider: 05/04/2021 Last Rx: 03/09/2021- Acetaminophen Extra Strength 500 MG- 100 with 3 refills 12/14/2020- Gabapentin 600 MG- 270 with 1 refill Requested Prescriptions Pending Prescriptions Disp Refills ??? gabapentin (NEURONTIN) 600 MG tablet [Pharmacy Med Name: Gabapentin 600 MG Tablet] 84 tablet 12 Sig: TAKE 1 TABLET BY MOUTH 3 TIMES DAILY ??? Acetaminophen Extra Strength 500 MG tablet [Pharmacy Med Name: Acetaminophen Extra Strength 500 MG Tablet] 168 tablet 12 Sig: TAKE 2 TABLETS BY MOUTH 3 TIMES DAILY Vitals: BP Readings from Last 2 Encounters: 04/13/21 120/68 03/02/21 112/78 RAMMING ENGINEER documented in this encounter Plan of Treatment Upcoming Encounters Date Type Specialty Care Team Description 01/18/2022 Telemedicine Family Medicine Sebastian Griffiths MD [address] [place], [place] [address] (Wo rk) documented as of this encounter Visit Diagnoses Diagnosis Degenerative disc disease, lumbar Uncontrolled type 2 diabetes mellitus wi th hyperglycemia (HCC) Chronic pain syndrome documented in this encounter Care Teams Ambulance Driver Paramedic Relationship Specialty Start Date End Date Sebastian Griffiths MD PCP - General 10/24/[address] [place] [id number] documented as of this encounter
--- OUTSIDE RECORDS SUMMARY | 2021-12-09 21:24 | XMS_ITS | Encounter Summary ---
:1950 Author Organization [facility] Address [address] [place] [address] Care Team Providers Name Role Phone Sebastian Griffiths MD Primary Care Provider Reason for Visit Reason Comments Follow-up 3 moth follow up. Encounter Details Date Type Department Care Team Description 06/01/2021 Office Visit [facility] Sebastian Griffiths, Gastroesophageal reflux dise ase, unspecified whether esophagitis present (Primary Dx); [address] [facility] Chronic obstructive pulmonary disease, u nspecified COPD type (HCC); [place] [address] Uncontrolled type 2 diabetes mellitus with hyperglycemia ([facility]); [phone] Chronic pain syndrome [place], [place] [address] Social History Tobacco Use Types Packs/Day Years [...] or relatives? How often do you attend jewish or Never 2020 gnosticist services? Do you belong to any clubs or No 05/18/2020 organizations such as jewish groups, unions, fraternal or athletic groups, or [...] on file documented as of this encounter Last Filed Vital Signs Vital Sign Reading Time Taken Comments Blood Pressure 126/74 06/01/2021 10:39 AM CDT Pulse 90 06/01/2021 10:39 AM CDT Temperature 36.1 ??C (97 ??F) 06/01/2021 10:39 AM CDT Respiratory Rate 18 06/01/2021 10:39 AM CDT Oxygen Saturation 96% 06/01/2021 10:39 AM CDT Inhaled Oxygen Concentration - - Weight 107 kg (235 lb 12.8 oz) 06/01/2021 10:39 AM CDT Height - - Body Mass Index 40.41 10/29/2020 1:25 PM CDT documented in this encounter Patient Instructions Patient InstructionsSebastian Griffiths MD - 06/01/2021 11:00 AM CDT Images from the original note were not included. Patient Education Upper Endoscopy, Adult Upper endoscopy is a procedure to look inside the upper GI (gastrointestinal) tract. The upper GI tract is made up of: ?? The part of the body that moves food from your mouth to your stomach (esophagus). ?? The stomach. ?? The first part of your small intestine (duodenum). This procedure is also called esophagogastroduodenoscopy (EGD) or gastroscopy. In this procedure, your health care provider passes a thin, flexible tube (endoscope) through your mouth and down your esophagus into your stomach. A small camera is attached to the end of the tube. Images from the camera appear on a monitor in the exam room. During this procedure, your health care provider may also removea small piece of tissue to be sent to a lab and examined under a microscope (biopsy). Your health care provider may do an upper endoscopy to diagnose cancers of the upper GI tract. You may also have this procedure to find the cause of other conditions, such as: ?? Stomach pain. ?? Heartburn. ?? Pain or problems when swallowing. ?? Nausea and vomiting. ?? Stomach bleeding. ?? Stomach ulcers. Tell a health care provider about: ?? Any allergies you have. ?? All medicines you are taking, including vitamins, herbs, eye drops, creams, and ollg-dno-mjrsqbe medicines. ?? Any problems you or family members have had with anesthetic medicines. ?? Any blood disorders you have. ?? Any surgeries you have had. ?? Any medical conditions you have. ?? Whether you are or may be . What are the risks? Generally, this is a safe procedure. However, problems may occur, including: ?? Infection. ?? Bleeding. ?? Allergic reactions to medicines. ?? A tear or hole (perforation) in the esophagus, stomach, or duodenum. What happens before the procedure? Staying hydrated Follow instructions from your health care provider about hydration, which may include: ?? Up to 2 hours before the procedure - you may continue to drink clear liquids, such as water, clear fruit juice, black coffee, and plain tea. Eating and drinking restrictions Follow instructions from your health care provider about eating and drinking, which may include: ?? 8 hours before the procedure - stop eating heavy meals or foods, such as meat, fried foods, or fatty foods. ?? 6 hours before the procedure - stop eating light meals or foods, such as toast or cereal. ?? 6 hours before the procedure - stop drinking milk or drinks that contain milk. ?? 2 hours before the procedure - stop drinking clear liquids. Medicines Ask your health care provider about: ?? Changing or stopping your regular medicines. This is especially important if you are taking diabetes medicines or blood thinners. ?? Taking medicines such as aspirin and ibuprofen. These medicines can thin your blood. Do not take these medicines unless your health care provider tells you to take them. ?? Taking gfnr-nep-qzucnnv medicines, vitamins, herbs, and supplements. General instructions ?? Plan to have someone take you home from the hospital or clinic. ?? If you will be going home right after the procedure, plan to have someone with you for 24 hours. ?? Ask your health care provider what steps will be taken to help prevent infection. What happens during the procedure? ?? An IV will be inserted into one of your veins. ?? You may be given one or more of the following: ? A medicine to help you relax (sedative). ? A medicine to numb the throat (local anesthetic). ?? You will lie on your left side on an exam table. ?? Your health care provider will pass the endoscope through your mouth and down your esophagus. ?? Your health care provider will use the scope to check the inside of your esophagus, stomach, and duodenum. Biopsies may be taken. ?? The endoscope will be removed. The procedure may vary among health care providers and hospitals. What happens after the procedure? ?? Your blood pressure, heart rate, breathing rate, and blood oxygen level will be monitored until you leave the hospital or clinic. ?? Do not drive for 24 hours if you were given a sedative during your procedure. ?? When your throat is no longer numb, you may be given some fluids to drink. ?? It is up to you to get the results of your procedure. Ask your health care provider, or the department that is doing the procedure, when your results will be ready. Summary ?? Upper endoscopy is a procedure to look inside the upper GI tract. ?? During the procedure, an IV will be inserted into one of your veins. You may be given a medicine to help you relax. ?? A medicine will be used to numb your throat. ?? The endoscope will be passed through your mouth and down your esophagus. This information is not intended to replace advice given to you by your health care provider. Make sure you discuss any questions you have with your health care provider. Document Revised: 08/29/2018 Document Reviewed: 08/06/2018 [facility] Patient Education ?? 2020 [employer]. documented in this encounter Progress Notes Sebastian Griffiths MD - 06/01/2021 11:00 AM CDT Estab Patient Visit Subjective Patient ID: Rena Fan is a 71 y.o. female. Chief Complaint Patient presents with ??? Follow-up 3 moth follow up. HPI Patient presents for her diabetic check in her chronic pain check. She does not feel her pain medicine is working as well anymore. We had a discussion regarding that again. She states her blood sugars been running in the 120s to 140s. Her last A1c was up. Patient states that she has had a history of stomach ulcers and she has had persisting constant abdominal pain since mid March of this year. She states she has some regurgitation. Sometimes she cannot eat more than 6 potato chips or half a can ofpop and then will regurgitate. Her bowel movements have been the same. Her colonoscopy is up-to-date. Looking back 1 year her weight is actually up 2 pounds from then. She has not noticed any dark or bloody stools. She is currently on a 40 mg dose of Protonix. The following portions of the patient's chart were reviewed in this encounter and updated as appropriate: Tobacco Allergies Meds Problems OB Status Review of Systems As per HPI. Objective @AWV@ Vitals taken from Annual Wellness nurse visit: BP Readings from Last 1 Encounters: 06/01/21 126/74 Pulse Readings from Last 1 Encounters: 06/01/21 90 Resp Readings from Last 1 Encounters: 06/01/21 18 SpO2 Readings from Last 1 Encounters: 06/01/21 96% Wt Readings from Last 1 Encounters: 06/01/21 107 kg (235 lb 12.8 oz) Ht Readings from Last 1 Encounters: 10/29/20 1.627 m (5' 4.06) BMI Readings from Last 1 Encounters: 06/01/21 40.41 kg/m?? Physical Exam General: Female in no acute distress. Answers questions appropriately. Oropharynx: Is clear. Neck: Without adenopathy thyromegaly or bruits. Heart: Regular rate and rhythm out murmur Extremities: No edema. No visits with results within 2 Week(s) from this visit. Latest known visit with results is: Lab on 03/02/2021 Component Date Value ??? Antinuclear Antibodies (* 03/02/2021 0.2 ? ? Cyclic Citrullin Peptide* 03/02/2021 <15.6 ??? Interpretation 03/02/2021 - Assessment/Plan Diagnoses and all orders for this visit: Gastroesophageal reflux disease, unspecified whether esophagitis present - Case Request GI (Referring): ESOPHAGOGASTRODUODENOSCOPY Chronic obstructive pulmonary disease, unspecified COPD type ([facility]) - albuterol HFA (Ventolin HFA) 108 (90 Base) MCG/ACT inhaler; INHALE 1 PUFF BY MOUTH NEEDED Uncontrolled type 2 diabetes mellitus with hyperglycemia ([facility]) - Case Request GI (Referring): ESOPHAGOGASTRODUODENOSCOPY - Lipid panel; Future - Microalbumin/Creatinine Ratio; Future - Basic metabolic panel; Future Chronic pain syndrome - Controlled Substance Monitoring Panel, Urine; Future Since she is on appropriate medication but having persisting pain will go ahead and schedule an endoscopy. I refilled her albuterol inhaler and ordered her diabetic labs to be done today even though she had a couple strips of richardson early in the morning. It is hard to get here for her. Controlled substance monitoring panel ordered. Opioid agreement is up-to-date. PDMP check was normal. I will send herthe results and she will make a recheck appointment with me in 3 months. Other medications will remain the same. documented in this encounter Plan of Treatment Upcoming Encounters Date Type Specialty Care Team Description 01/18/2022 Telemedicine Family Medicine Sebastian Griffiths MD [address] [place] [address] (Wo rk) documented as of this encounter Results (ABNORMAL) Basic metabolic panel (06/01/2021 12:09 PM CDT) Analysis Performed At Patho logist Time Signature Sodium 139 135 - 145 06/01/2021 [facility] mEq/L 3:07 PM [facility] Potassium 3.9 3.5 - 5.1 06/01/2021 [facility] mEq/L 3:07 PM [facility] Chloride 99 98 - 107 06/01/2021 [facility] mEq/L 3:07 PM [facility] CO2 31 (H) 22 - 29 06/01/2021 [facility] mmol/L 3:07 PM [facility] Creatinine 0.9 0.4 - 1.2 06/01/2021 [facility] mg/dL 3:07 PM [facility] BUN 10 5 - 25 06/01/2021 [facility] mg/dL 3:07 PM [facility] Glucose 151 (H) 70 - 100 06/01/2021 [facility] mg/dL 3:07 PM [facility] Calcium, 10.1 8.4 - 10.2 06/01/2021 [facility] Total,S mg/dL 3:07 PM [facility] Fasting? No 06/01/2021 [facility] 12:09 PM [facility] Specimen Anatomical Collection Method Collection Time Receive d Time (Source) Location / / Volume Laterality Blood 06/01/2021 12:09 06/01/2021 2:10 PM CDT PM CDT Sebastian Griffiths MD LAB BLOOD ORDERABLES Performing Organization Address City/State/ZIP Code Phon e Number [facility] [address] [place] [address] (ABNORMAL) Lipid panel (06/01/2021 12:09 PM CDT) P athologist Signature Cholesterol 154 0 - 199 06/01/2021 [facility] mg/dL 3:07 PM CDT [facility] Comment: Recommended by National Cholesterol Education Program (ATP III) -------- Cholesterol Ranges -------- <200 ?Desirable 200-239 ? Borderline high >=240 ? High Triglycerides 216 (H) 0 - 149 mg/dL 06/01/2021 3:07 PM CDT [facility] Comment: -------- TRIG Ranges -------- <150 ?Normal 150-199 ? Borderline high 200-499 ? High >=500 ? Very high HDL 42 40 - 250 mg/dL 06/01/2021 3:07 PM CDT [facility] Comment: -------- HDL Ranges -------- <40 ?Low 40-59 ?Normal >=60 ? Optimal LDL Calculated 69 0 - 99 mg/dL 06/01/2021 3:07 PM CDT [facility] Comment: -------- LDL Ranges -------- <100 ? Optimal 100-129 ?Near optimal/above op timal 130-159 ?Borderline high 160-189 ?High >=190 ?Very high Specimen Anatomical Collection Method Collection Time Receive d Time (Source) Location / / Volume Laterality Blood 06/01/2021 12:09 06/01/2021 2:10 PM CDT PM CDT Sebastian Griffiths MD LAB BLOOD ORDERABLES Performing Organization Address [facility]/ZIP Code Phon e Number [facility] [address] [place] [phone] (ABNORMAL) Microalbumin/Creatinine Ratio (06/01/2021 11:40 AM CDT) [facility] Method Time Signature Microalbumin,m 135.7 (H) 0.0 - 16.6 06/01/2021 [facility] g/day mg/L 3:08 PM [facility] Comment: . Creatinine, Urine 248 mg/dL 06/01/2021 3:07 PM T [facility] Comment: No established reference range. Microalb/Creat Ratio 55 (H) 0 - 24 mg/g 06/01/2021 3:08 P M [facility] Specimen Anatomical Collection Method Collection Time Receive d Time (Source) Location / / Volume Laterality Urine 06/01/2021 11:40 06/01/2021 2:10 AM CDT PM CDT Sebastian Griffiths MD LAB URINE ORDERABLES Performing Organization Address [facility]/ZIP Code Phon e Number [facility] [address] [place] [phone] documented in this encounter Visit Diagnoses Diagnosis Gastroesophageal reflux disease, unspeci fied whether esophagitis present - Primary Chronic obstructive pulmonary disease, u nspecified COPD type (HCC) Uncontrolled type 2 diabetes mellitus wi th hyperglycemia (HCC) Chronic pain syndrome documented in this encounter Care Teams Petroleum Production Engineer Relationship Specialty Start Date End Date Sebastian Griffiths MD PCP - General 10/24/[address] [place] [phone] documented as of this encounter
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
--- OUTSIDE RECORDS SUMMARY | 2021-12-09 21:24 | XMS_ITS | Encounter Summary ---
:1950 Author Organization [facility] Address [address] [place] [address] Care Team Providers Name Role Phone Sebastian Griffiths MD Primary Care Provider Reason for Visit Reason Onset Date Comments Med Refill 03/03/2021 Encounter Details Date Type Department Care Team Description 03/03/2021 Refill SE Family Med Sebastian Griffiths MD Type II diabetes mellitus with periphera l circulatory disorder (HCC); [address] Uncontrolled type 2 diabetes mellitus wi th hyperglycemia (HCC) [place] [address] [place] [address] [phone] (Wo rk) Social History Tobacco Use Types [...] or relatives? How often do you attend faith or Never 2020 taoism services? Do you belong to any clubs or No 05/18/2020 organizations such as faith groups, unions, fraternal or athletic groups, or [...] Telephone Encounter - Tamie Kuhn MA - 03/03/2021 7:59 AM CST DM supplies are requested to go to [facility]. Thank you! Last visit in provider department: 03/02/2021 Last visit requested medication was discussed: 03/02/2021 Upcoming appointment with provider: 06/01/2021 Last Rx: 03/02/2021 Requested Prescriptions Pending Prescriptions Disp Refills ??? Blood Glucose Monitoring Suppl (Accu-Chek Guide) w/Device kit 1 kit 0 Sig: USE DIRECTED TO TEST BLOOD SUGARS FOUR TIMES DAILY Vitals: BP Readings from Last 2 Encounters: 03/02/21 112/78 02/19/21 140/80 SEAT FITTER documented in this encounter Plan of Treatment [...] (HCC) documented in this encounter Care Teams Assurance Engineer Relationship Specialty Start Date End Date Sebastian Griffiths MD PCP - General 10/24/17 [address] [place], [place] [phone] documented as of this encounter
--- OUTSIDE RECORDS SUMMARY | 2021-12-09 21:24 | XMS_ITS | Encounter Summary ---
:1950 Author Organization [facility] Address [address] [place] [address] Care Team Providers Name Role Phone Sebastian Griffiths MD Primary Care Provider Reason for Visit Reason Comments Med Refill Encounter Details Date Type Department Care Team Description 07/06/2021 Office Visit [facility] Sebastian Griffiths, Chronic pain syndrome; [address] Generalized anxiety disorder; [place] [address] Controlled type 2 diabetes dayo barreto without complication, without long-term current use of insulin ([facility]) [phone] [place] [address] Social History Tobacco Use Types [...] many times do you More than three ivetet es a week 05/18/2020 talk on the phone with family, friends, or neighbors? How often do you get together with friends Twice a week 05/18/2020 or relatives? How often do you attend zoroastrianism or Never 2020 sikh services? Do you belong to any clubs [...] Sign Reading Time Taken Comments Blood Pressure - - Pulse 92 07/06/2021 10:21 AM CDT Temperature 36.4 ??C (97.5 ??F) 07/06/2021 10:21 AM CDT Respiratory Rate 18 07/06/2021 10:21 AM CDT Oxygen Saturation 93% 07/06/2021 10:21 AM CDT Inhaled Oxygen Concentration - - Weight 105 kg (232 lb 4.8 oz) 07/06/2021 10:21 AM CDT Height - - Body Mass Index 39.81 10/29/2020 1:25 PM CDT documented in this encounter Patient Instructions Patient InstructionsSebastian Griffiths MD - 07/06/2021 10:00 AM CDT Make sure you arrange your ride for the scope exam on the morning of July 14. You will get a call from us the day before for the exact scheduled time. documented in this encounter Progress Notes Sebastian Griffiths MD - 07/06/2021 10:00 AM CDT Estab Patient Visit Subjective Patient ID: Rena Fan is a 71 y.o. female. Chief Complaint Patient presents with ??? Med Refill HPI Patient is here for 3-month recheck for chronic pain. She also has a upcoming upper endoscopy for her chronic dysphagia and regurgitation. She states that has not improved since last time I saw her. She wants more pain medicine. States she aches all over. She is currently on oxycodone 5 mg 3 times a day. The following portions of the patient's chart were reviewed in this encounter and updated as appropriate: Tobacco Allergies Meds Problems OB Status Review of Systems Denies any constipation or diarrhea. Objective @AWV@ Vitals taken from Annual Wellness nurse visit: BP Readings from Last 1 Encounters: 06/01/21 126/74 Pulse Readings from Last 1 Encounters: 07/06/21 92 Resp Readings from Last 1 Encounters: 07/06/21 18 SpO2 Readings from Last 1 Encounters: 07/06/21 93% Wt Readings from Last 1 Encounters: 07/06/21 105 kg (232 lb 4.8 oz) Ht Readings from Last 1 Encounters: 10/29/20 1.627 m (5' 4.06) BMI Readings from Last 1 Encounters: 07/06/21 39.81 kg/m?? Physical Exam General: Female in no acute distress. Answers questions appropriately. Is able to walk unaided. No visits with results within 2 Week(s) from this visit. Latest known visit with results is: Lab on 06/01/2021 Component Date Value ??? Sodium 06/01/2021 139 ??? Potassium 06/01/2021 3.9 ??? Chloride 06/01/2021 99 ??? CO2 06/01/2021 31 (A) ??? Creatinine 06/01/2021 0.9 ??? BUN 06/01/2021 10 ??? Glucose 06/01/2021 151 (A) ??? Calcium, Total,S 06/01/2021 10.1 ??? Fasting? 06/01/2021 No ??? Cholesterol 06/01/2021 154 ??? Triglycerides 06/01/2021 216 (A) ??? HDL 06/01/2021 42 ??? LDL Calculated 06/01/2021 69 ??? Hemoglobin A1C 06/01/2021 8.2 (A) ??? Microalbumin,mg/day 06/01/2021 135.7 (A) ??? Creatinine, Urine 06/01/2021 248 ??? Microalb/Creat Ratio 06/01/2021 55 (A) ? ? GFR 06/01/2021 >60 ? ? GFR 06/01/2021 >60 Assessment/Plan Diagnoses and all orders for this visit: Chronic pain syndrome - oxyCODONE (ROXICODONE) 5 MG immediate release tablet; Take 2 tablets (10 mg total) by mouth every 6 (six) hours if needed for moderate pain May take every 6 hours but still only 6 tabs total per day. - acetaminophen (TYLENOL) 500 MG tablet; Take 2 tablets (1,000 mg total) by mouth every 8 (eight) hours - Controlled Substance Monitoring Panel, Urine; Future Generalized anxiety disorder - LORazepam (ATIVAN) 0.5 MG tablet; TAKE 1 TABLET BY MOUTH MOUTH EVERY 8 HOURS Controlled type 2 diabetes mellitus without complication, without long-term current use of insulin (HCC) Other orders - Aspirin Low Dose 81 MG EC tablet; 1 tablet (81 mg total) 1 (one) time each day in the morning Should continue on the same oxycodone prescription but she can take the daytime doses 6 hours apart if she wishes. He 10 mg 3 times daily quantity for the month states the same. She was not able to do her urine drug screen last time so will be ordered for today. She is to continue with the once a day aspirin and I did change her Tylenol to be regularly scheduled instead of as needed. She should expect a call today for or scheduling her time next week for her upper endoscopy. Recheck in 3 months but I will follow-up sooner with her regarding the upper GI results. documented in this encounter Plan of Treatment Upcoming Encounters Date Type Specialty Care Team Description 01/18/2022 Telemedicine Family Medicine Sebastian Griffiths MD [address] [place] [phone] (Wo rk) documented as of this encounter Visit Diagnoses Diagnosis Chronic pain syndrome Generalized anxiety disorder Controlled type 2 diabetes mellitus with out complication, without long-term current use of insulin (HCC) documented in this encounter Care Teams Facility Sales And Admin Relationship Specialty Start Date End Date Sebastian Griffiths MD PCP - General 10/24/[address] [place] [phone] documented as of this encounter
--- OUTSIDE RECORDS SUMMARY | 2021-12-09 21:24 | XMS_ITS | Encounter Summary ---
:1950 Author Organization [facility] Address [address] [place] [address] Care Team Providers Name Role Phone Sebastian Griffiths MD Primary Care Provider Reason for Visit Reason Onset Date Comments Med Refill 03/03/2021 Encounter Details Date Type Department Care Team Description 03/03/2021 Refill SE Family Med Sebastian Griffiths MD Insomnia, unspecified [address] [facility] [address] [place] [address] [place] [address] [phone] (Wo rk) Social History Tobacco Use Types [...] or relatives? How often do you attend voodoo or Never 2020 pentecostal services? Do you belong to any clubs or No 05/18/2020 organizations such as voodoo groups, unions, fraternal or athletic groups, or [...] Telephone Encounter - Catherine Frank LPN - 03/03/2021 11:33 AM CASTING AGENT Pharmacy requesting Zolpidem rx be resent to them they say they did not receive it and have no record of it zolpidem (AMBIEN) 5 MG tablet Sig: TAKE ONE TABLET BY MOUTH EVERY DAY AT BEDTIME NEEDED FOR SLEEP #30 with 5 refills 02/04/21 Please resend ING AGENT documented in this encounter Plan of Treatment Upcoming Encounters Date Type Specialty Care Team Description 01/18/2022 Telemedicine Family Medicine Sebastian Griffiths MD [address] [place], [place] [address] (Wo rk) documented as of this encounter Visit Diagnoses Diagnosis Insomnia, unspecified type documented in this encounter Care Teams Correctional Officer Relationship Specialty Start Date End Date Sebastian Griffiths MD PCP - General 10/24/17 [address] [place], [place] [address] documented as of this encounter
--- OUTSIDE RECORDS SUMMARY | 2021-12-09 21:24 | XMS_ITS | Encounter Summary ---
:1950 Author Organization [facility] Address [address] [place] [address] Care Team Providers Name Role Phone Sebastian Griffiths MD Primary Care Provider Encounter Details Date Type Department Care Team Description 03/02/2021 Lab SE Lab Chronic pain of both wrists [address] [place] [address] Social History Tobacco Use Types Packs/Day Years [...] do you attend tenriism or Never 2020 pentecostalism services? Do you belong to any clubs [...] 01/18/2022 Telemedicine Family Medicine Sebastian Griffiths MD [address] [place] [phone] (Wo rk) documented as of this encounter Procedures Procedure Name Priority Date/Time Associated Comments Diagnosis CONNECTIVE TISSUE Routine 03/02/2021 12:53 PM Chronic pain of Results for this CASCADE SLOT ROUTER both wrists procedure are i n the results section. documented in this encounter Results Connective tissue cascade (03/02/2021 12:53 PM SLOT ROUTER) [facility] Method Time Signature Antinuclear 0.2 <=1.0 03/04/2021 [facility] Antibodies (ACACIA) (Negative) 12:18 PM SLOT ROUTER LABORATOR IES U Comment: ADDITIONAL INFORMATIO N Method: Enzyme-linked immunoassay using HEp-2 nuclear extract supplemented with purified antig ens. Cyclic Citrullin <15.6 <20.0 (Negative) 03/04/2021 12:18 [facility] Peptide Ab U PM SLOT ROU[facility]IES Interpretation - 03/04/2021 12:18 [facility] ICAL PM SLOT ROUTER LABORATORIES Comment: Tests for antibodies to dsDNA and KONSTANTIN an tigens are not performed automatically unless the ACACIA r esult is > or = 3.0 U. ??Studies performed at [facility] indicate that positive ACACIA results <3.0 U are rarely a ccompanied by positive second order tests. Test Performed by: [facility] [address] [address] Legal Document Assistant: Sami Crenshaw M.D. Ph. D.; CLIA# [id number] Specimen Anatomical Collection Method Collection Time Receive d Time (Source) Location / / Volume Laterality Blood 03/02/2021 12:53 03/02/2021 4:45 PM SLOT ROUTER PM SLOT ROUTER Sebastian Griffiths MD LAB BLOOD ORDERABLES Performing Organization Address City/State/ZIP Code Phon e Number [facility] Pact Apparel [facility] see result attachment for specific address documented in this encounter Visit Diagnoses Diagnosis Chronic pain of both wrists documented in this encounter Care Teams Interactive Media Project Manager Relationship Specialty Start Date End Date Sebastian Griffiths MD PCP - General 10/24/[address] [place] [phone] documented as of this encounter
--- OUTSIDE RECORDS SUMMARY | 2021-12-09 21:24 | XMS_ITS | Encounter Summary ---
:1950 Author Organization [facility] Address [address] [place] [address] Care Team Providers Name Role Phone Sebastian Griffiths MD Primary Care Provider Reason for Visit Reason Onset Date Comments Med Refill 06/11/2021 Encounter Details Date Type Department Care Team Description 06/11/2021 Refill SE Family Med Sebastian Griffiths MD Anxiety; [address] [facility] [address] [place] [address] [place] [address] [phone] (Wo rk) Social History Tobacco Use Types [...] or relatives? How often do you attend denominational or Never 2020 yarsanism services? Do you belong to any clubs or No 05/18/2020 organizations such as denominational groups, unions, fraternal or athletic groups, or [...] Telephone Encounter - Catherine Frank LPN - 06/11/2021 11:16 AM CDT Last visit in provider department: 06/01/2021 Last visit requested medication was discussed:06/01/21 Upcoming appointment with provider: Visit date not found Last Rx: 05/18/20 #90 11 refills Requested Prescriptions Pending Prescriptions Disp Refills ??? hydrOXYzine (ATARAX) 25 MG tablet 90 tablet 11 Sig: TAKE ONE TABLET BY MOUTH EVERY 8 HOURS NEEDED FOR ITCHING Labs: Vitals: BP Readings from Last 2 Encounters: 06/01/21 126/74 04/13/21 120/68 documented in this encounter Plan of Treatment Upcoming Encounters Date Type Specialty Care Team Description 01/18/2022 Telemedicine Family Medicine Sebastian Griffiths MD [address] [place], [place] [address] (Wo rk) documented as of this encounter Visit Diagnoses Diagnosis Anxiety Anxiety state, unspecified Pruritic condition Unspecified pruritic disorder documented in this encounter Care Teams Mammalogy Teacher Relationship Specialty Start Date End Date Sebastian Griffiths MD PCP - General 10/24/17 [address] [place], [place] [phone] documented as of this encounter
--- OUTSIDE RECORDS SUMMARY | 2021-12-09 21:24 | XMS_ITS | Encounter Summary ---
:[address] [facility] Address [address] [place] [address] Care Team Providers Name Role Phone Sebastian Griffiths MD Primary Care Provider Reason for Visit Reason Onset Date Comments Med Refill 05/24/2021 Encounter Details Date Type Department Care Team Description 05/24/2021 Refill SE Family Med Sebastian Griffiths MD Encounter for smoking cessation counseli ng; [address] [facility] [address] [place] [address] [place] [address] [phone] (Wo rk) Social History Tobacco Use Types [...] or relatives? How often do you attend oriental orthodox or Never 2020 orthodoxy services? Do you belong to any clubs or No 05/18/2020 organizations such as oriental orthodox groups, unions, fraternal or athletic groups, or [...] Telephone Encounter - Catherine Frank LPN - 05/24/2021 6:38 AM BOTTLE INSPECTOR Last visit in provider department: 04/13/21 Last visit requested medication was discussed:04/13/21 Upcoming appointment with provider: 06/01/2021 Last Rx: nicotine (NICODERM CQ) 21 MG/24HR 01/25/21 #30 with 3 refills LORazepam (ATIVAN) 0.5 MG tablet 03/24/21 #90 1 refill Requested Prescriptions Pending Prescriptions Disp Refills ??? nicotine (NICODERM CQ) 21 MG/24HR 30 patch 3 Sig: Place 1 patch on the skin 1 (one) time each day at the same time ??? LORazepam (ATIVAN) 0.5 MG tablet 90 tablet 1 Sig: TAKE 1 TABLET BY MOUTH MOUTH EVERY 8 HOURS Labs: Vitals: BP Readings from Last 2 Encounters: 04/13/21 120/68 03/02/21 112/78 PHQ9- 0 GAD7- 0 LE INSPECTOR documented in this encounter Plan of Treatment Upcoming Encounters Date Type Specialty Care Team Description 01/18/2022 Telemedicine Family Medicine Sebastian Griffiths MD [address] [place] [phone] (Wo rk) documented as of this encounter Visit Diagnoses Diagnosis Encounter for smoking cessation counseli ng Generalized anxiety disorder documented in this encounter Care Teams Software Build Engineer Relationship Specialty Start Date End Date Sebastian Griffiths MD PCP - General 10/24/[address] [place] [phone] documented as of this encounter
--- OUTSIDE RECORDS SUMMARY | 2021-12-09 21:24 | XMS_ITS | Encounter Summary ---
:1950 Author Organization [facility] Address [address] [place] [address] Care Team Providers Name Role Phone Sebastian Griffiths MD Primary Care Provider Reason for Visit Reason Comments Med Refill Encounter Details Date Type Department Care Team Description 05/24/2021 Refill SE Family Med Sebastian Griffiths, Major depressive disorder, r ecurrent episode, moderate (HCC); [address] [facility] Hypertension, essential, benign; [place] [address] Controlled type 2 diabetes m ellitus without complication, without long-term current use of insulin ([facility]); [phone] Gastroesophageal reflux disease without esophagitis [place], [place] [address] Social History Tobacco Use Types Packs/Day Years [...] do you attend zoroastrian or Never 2020 rastafarian services? Do you belong to any clubs [...] encounter Miscellaneous Notes Telephone Encounter - Catherine Frank, AGRICULTURAL SERVICE WORKER - 05/25/2021 1:25 PM DIRECTOR INTELLIGENCE ANALYSIS PROGRAMS Last visit in provider department: 04/13/21 Last visit requested medication was discussed:04/13/21 Upcoming appointment with provider: 06/01/2021 Last Rx: DULoxetine (CYMBALTA) [address] capsule 12/14/20 #180 1 refill hydroCHLOROthiazide (HYDRODIURIL) 25 MG tablet 12/14/20 #90 1 refill SITagliptin (Januvia) 100 MG tablet 12/14/20 #90 1 refill pantoprazole (PROTONIX) 40 MG EC tablet 12/14/20 #90 1 refill risperiDONE (RisperDAL) 2 MG tablet 12/14/20 #180 1 refill amLODIPine (NORVASC) 5 MG tablet 12/14/20 #90 1 refill Requested Prescriptions Pending Prescriptions Disp Refills ??? DULoxetine (CYMBALTA) [address] capsule [Pharmacy Med Name: DULoxetine HCl 60 MG Capsule delayed release particles] 56 capsule 12 Sig: TAKE 2 CAPSULES BY MOUTH DAILY ??? hydroCHLOROthiazide (HYDRODIURIL) 25 MG tablet [Pharmacy Med Name: hydroCHLOROthiazide 25 MG Tablet] 28 tablet 12 Sig: TAKE 1 TABLET BY MOUTH DAILY ??? SITagliptin (Januvia) 100 MG tablet [Pharmacy Med Name: Januvia 100 MG Tablet] 28 tablet 12 Sig: TAKE 1 TABLET BY MOUTH DAILY ??? pantoprazole (PROTONIX) 40 MG EC tablet [Pharmacy Med Name: Pantoprazole Sodium 40 MG Tablet delayed release] 28 tablet 12 Sig: TAKE 1 TABLET BY MOUTH EVERY MORNING BEFORE BREAKFAST ??? risperiDONE (RisperDAL) 2 MG tablet [Pharmacy Med Name: risperiDONE 2 MG Tablet] 56 tablet 12 Sig: TAKE 1 TABLET BY MOUTH TWICE DAILY ??? amLODIPine (NORVASC) 5 MG tablet [Pharmacy Med Name: amLODIPine Besylate 5 MG Tablet] 28 tablet 12 Sig: TAKE 1 TABLET BY MOUTH DAILY Labs: Component Latest Ref Rng & Units 01/25/2021 Hemoglobin A1C 4.0 - 5.6 % A1C 9.0 (H) Component Latest Ref Rng & Units 01/25/2021 Microalbumin,mg/day 0.0 - 16.6 mg/L 22.3 (H) Creatinine, Urine mg/dL 23 Microalb/Creat Ratio 0 - 24 mg/g 97 (H) Renal Function Panel Order: [id number] Component Ref Range & Units 11/19/20 0734 Potassium, S 3.6 - 5.2 mmol/L 4 Sodium, S 135 - 145 mmol/L 140 Chloride, S 98 - 107 mmol/L 100 Bicarbonate, S 22 - 29 mmol/L 29 Anion Gap 7 - 15 11 BUN (Blood Urea Nitrogen), S 6 - 21 mg/dL 14 Creatinine, S 0.59 - 1.04 mg/dL 0.68 eGFR-Non Black/ >=60 mL/min/BSA >90 Comment: ----ADDITIONAL INFORMATION---- Estimated GFR calculated using the 2009 CKD_EPI creatinine equation. eGFR-Black/ >=60 mL/min/BSA >90 Comment: ----ADDITIONAL INFORMATION---- Estimated GFR calculated using the 2009 CKD_EPI creatinine equation. Calcium, Total, S 8.8 - 10.2 mg/dL 10.2 Glucose, S 70 - 140 mg/dL 145??High?? Albumin, S 3.5 - 5.0 g/dL 3.8 Phosphorus (Inorganic), S 2.5 - 4.5 mg/dL 4.1 Resulting Agency DTL Specimen Collected: 11/19/20 07:34 Last Resulted: 11/19/20 09:07 Received From: [facility] Vitals: BP Readings from Last 2 Encounters: 04/13/21 120/68 03/02/21 112/78 CTOR INTELLIGENCE ANALYSIS PROGRAMS documented in this encounter Plan of Treatment Upcoming Encounters Date Type Specialty Care Team Description 01/18/2022 Telemedicine Family Medicine Sebastian Griffiths MD [address] [place] [address] (Wo rk) documented as of this encounter Visit Diagnoses Diagnosis Major depressive disorder, recurrent epi sode, moderate (HCC) Major depressive disorder, recurrent epi sode, moderate Hypertension, essential, benign Essential hypertension, benign Controlled type 2 diabetes mellitus with out complication, without long-term current use of insulin (HCC) Gastroesophageal reflux disease without esophagitis Esophageal reflux documented in this encounter Care Teams Cell Cleaner Relationship Specialty Start Date End Date Sebastian Griffiths MD PCP - General 10/24/[address] [place] [phone] documented as of this encounter
--- OUTSIDE RECORDS SUMMARY | 2021-12-09 21:24 | XMS_ITS | Encounter Summary ---
:1950 Author Organization [facility] Address [address] [place] [address] Care Team Providers Name Role Phone Sebastian Griffiths MD Primary Care Provider Reason for Visit Reason Onset Date Comments Med Refill 06/01/2021 Encounter Details Date Type Department Care Team Description 06/01/2021 Refill SE Family Med Sebastian Griffiths MD Chronic pain syndrome; [address] [place] [address] [place] [address] [phone] (Wo rk) Social History Tobacco Use Types [...] do you attend faith or Never 2020 buddhism services? Do you belong to any clubs [...] Telephone Encounter - Tae Livingston RN - 06/01/2021 4:53 PM CDT Request for refill of oxycodone, lorazepam received from [facility]. Most recent RX was written on 05/14/2021 (oxycodone). RX on 05/24/2021 (for Lorazepam) Patient was seen in office by PCP on 06/01/2021. Rx's pended for provider review. documented in this encounter Plan of Treatment Upcoming Encounters Date Type Specialty Care Team Description 01/18/2022 Telemedicine Family Medicine Sebastian Griffiths MD [address] [place] [phone] (Wo rk) documented as of this encounter Visit Diagnoses Diagnosis Chronic pain syndrome Generalized anxiety disorder documented in this encounter Care Teams Recordings Librarian Relationship Specialty Start Date End Date Sebastian Griffiths MD PCP - General 10/24/[address] [place] [address] documented as of this encounter
--- OUTSIDE RECORDS SUMMARY | 2021-12-09 21:24 | XMS_ITS | Encounter Summary ---
:1950 Author Organization [facility] Address [address] [place] [address] Care Team Providers Name Role Phone Sebastian Griffiths MD Primary Care Provider Reason for Visit Reason Comments Med Refill Encounter Details Date Type Department Care Team Description 03/01/2021 Refill SE Family Med Sebastian Griffiths MD Chronic pain syndrome [address] [facility] [address] [place] [address] [place] [address] [phone] (Wo rk) Social History Tobacco Use Types [...] do you attend faith or Never 2020 bahai services? Do you belong to any clubs [...] Telephone Encounter - Catherine Frank LPN - 03/02/2021 8:48 AM RESISTOR WINDER Rx was done on 01/25/21 #100 with 11 refills Pharmacy contacted and was sent in Error STOR WINDER documented in this encounter Plan of Treatment Upcoming Encounters Date Type Specialty Care Team Description 01/18/2022 Telemedicine Family Medicine Sebastian Griffiths MD [address] [place] [phone] (Wo rk) documented as of this encounter Visit Diagnoses Diagnosis Chronic pain syndrome documented in this encounter Care Teams Milk Route Supervisor Relationship Specialty Start Date End Date Sebastian Griffiths MD PCP - General 10/24/[address] [place] [address] documented as of this encounter
--- OUTSIDE RECORDS SUMMARY | 2021-12-09 21:24 | XMS_ITS | Encounter Summary ---
:1950 Author Organization [facility] Address [address] [place] [address] Care Team Providers Name Role Phone Sebastian Griffiths MD Primary Care Provider Encounter Details Date Type Department Care Team Description 05/04/2021 Office Visit SE [facility] Sebastian Griffiths MD Canceled (No Show) [address] [facility] [address] [place] [address] [place] [address] [phone] (Wo rk) Social History Tobacco Use Types [...] do you attend anglican or Never 2020 congregational services? Do you [...] 01/18/2022 Telemedicine Family Medicine Sebastian Griffiths MD [address] [place] [phone] (Wo rk) documented as of this encounter Visit Diagnoses Not on filedocumented in this encounter Care Teams Fretted Instrument Maker Hand Relationship Specialty Start Date End Date Sebastian Griffiths MD PCP - General 10/24/[address] [place] [phone] documented as of this encounter
--- OUTSIDE RECORDS SUMMARY | 2021-12-09 21:24 | XMS_ITS | Encounter Summary ---
:[address] [facility] Address [address] [place] [address] Care Team Providers Name Role Phone Sebastian Griffiths MD Primary Care Provider Reason for Visit Reason Onset Date Comments medication prior auth 06/14/2021 hydrOXYzine HCl 25 MG tablets Encounter Details Date Type Department Care Team Description 06/14/2021 Telephone [facility] Sebastian Griffiths, medication prior auth [address] [facility] (hydrOXYzine HCl 25[place] [address] tablets) [phone] [place], [place] [address] Social History Tobacco Use Types Packs/Day Years [...] do you attend yarsani or Never 2020 mu-ism services? Do you belong to any clubs [...] this encounter Miscellaneous Notes Telephone Encounter - Cat Adair MA - 06/14/2021 7:27 AM CDT PA approved from 03/20/2021 - 06/14/2022. Pharmacy notified. ANNALEE # [id number]. Telephone Encounter - Tamie Shore MA - 06/14/2021 6:14 AM CDT hydrOXYzine HCl 25MG tablets BIN: [id number] PCN: [id number] GROUP: [id number] PLAN: [place] - Medicare PHONE: ID: [id number] PA has been completed via CM sent to plan. Scott: [id number] documented in this encounter Plan of Treatment Upcoming Encounters Date Type Specialty Care Team Description 01/18/2022 Telemedicine Family Medicine Sebastina Griffiths MD [address] [place], [place] [phone] (Wo rk) documented as of this encounter Visit Diagnoses Not on filedocumented in this encounter Care Teams Supervisor Malted Milk Relationship Specialty Start Date End Date Sebastian Griffiths MD PCP - General 10/24/[address] [place] [address] [phone] documented as of this encounter
--- OUTSIDE RECORDS SUMMARY | 2021-12-09 21:24 | XMS_ITS | Encounter Summary ---
:1950 Author Organization [facility] Address [address] [place] [address] Care Team Providers Name Role Phone Sebastian Griffiths MD Primary Care Provider Reason for Visit Reason Onset Date Comments Med Refill 04/23/2021 Encounter Details Date Type Department Care Team Description 04/23/2021 Refill SE Family Med Sebastian Griffiths MD Chronic constipation [address] [facility] [address] [place] [address] [place] [address] [phone] (Wo rk) Social History Tobacco Use Types [...] do you attend restoration or Never 2020 mu-ism services? Do you [...] this encounter Miscellaneous Notes Telephone Encounter - Lindsay Ny LPN - 04/23/2021 1:32 PM CST Last visit in provider department: 04/13/2021 Last visit requested medication was discussed: med not discussed in the last year Upcoming appointment with provider: 06/01/2021 Last Rx: 01/09/2021 # 578 g, 2 refills Requested Prescriptions Pending Prescriptions Disp Refills ??? polyethylene glycol (GLYCOLAX) 17 GM/SCOOP powder 578 g 2 Sig: Take 17 g by mouth 1 (one) time each day Vitals: BP Readings from Last 2 Encounters: 04/13/21 120/68 03/02/21 112/78 RONMENTAL HEALTH AND SAFETY MANAGER documented in this encounter Plan of Treatment Upcoming Encounters Date Type Specialty Care Team Description 01/18/2022 Telemedicine Family Medicine Sebastian Griffiths MD [address] [place], [place] [address] (Wo rk) documented as of this encounter Visit Diagnoses Diagnosis Chronic constipation Unspecified constipation documented in this encounter Care Teams Geographic Information Systems Engineer Relationship Specialty Start Date End Date Sebastian Griffiths MD PCP - General 10/24/[address] [place] [phone] documented as of this encounter
--- OUTSIDE RECORDS SUMMARY | 2021-12-09 21:24 | XMS_ITS | Encounter Summary ---
:1950 Author Organization [facility] Address [address] [place] [address] Care Team Providers Name Role Phone Sebastian Griffiths MD Primary Care Provider Reason for Visit Reason Onset Date Comments Covid Triage 07/08/2021 Encounter Details Date Type Department Care Team Description 07/08/2021 Telephone [facility] Nita Ashley, Covid Triage [address] [facility] [address] [place] [address] [address] [place], [place] [address] (Wo rk) Social History Tobacco Use Types [...] do you attend voodoo or Never 2020 congregational services? Do you [...] on file documented as of this encounter Progress Notes Laney Vizcaino RN - 07/08/2021 2:31 PM CDT 07/08/21 1400 COVID Algorithm Patient has the following symptoms: None Patient belongs to a high risk group: None Patient has the following special indications Scheduled for sugery, aerosolizing procedure or labor induction Patient has close contact with confirmed COVID case: No Any positive indication in any question? Yes Is Patient Symptomatic? No Has the patient tested positive for COVID-19 in past 90 days? No - send for COVID SOFTWARE WRITER swab documented in this encounter Plan of Treatment Upcoming Encounters Date Type Specialty Care Team Description 01/18/2022 Telemedicine Family Medicine Sebastian Griffiths MD [address] [place] [phone] (Wo rk) Scheduled Orders Name Type Priority Associated Diagnoses Order S chedule SARS Coronavirus 2 RNA Lab Routine Encounter for Expe cted: 07/09/2021, detection, v preprocedure screening Expir es: 07/08/2022 laboratory testing for COVID-19 documented as of this encounter Visit Diagnoses Diagnosis Encounter for preprocedure screening lab oratory testing for COVID-19 - Primary documented in this encounter Care Teams Scaler Relationship Specialty Start Date End Date Sebastian Griffiths MD PCP - General 10/24/[address] [place] [address] [phone] documented as of this encounter
--- OUTSIDE RECORDS SUMMARY | 2021-12-09 21:24 | XMS_ITS | Encounter Summary ---
:1950 Author Organization [facility] Address [address] [place] [address] Care Team Providers Name Role Phone Sebastian Griffiths MD Primary Care Provider Reason for Visit Reason Onset Date Comments Med Refill 06/11/2021 Med Refill 06/14/2021 Encounter Details Date Type Department Care Team Description 06/11/2021 Refill SE Family Med Sebastian Griffiths MD Uncontrolled type 2 [address] [facility] [address] diabetes [place] [address] [place] [address] hyperglycemia (HCC) [phone] (Wo rk) (Primary Dx) Social History Tobacco Use Types Packs/Day Years [...] do you attend rastafari or Never 2020 sabianist services? Do you [...] this encounter Miscellaneous Notes Addendum Note - Fiona Pena RN - 06/14/2021 2:56 PM CDT Addended by: FIONA PENA on: 06/14/2021 02:56 PM Modules accepted: Orders Telephone Encounter - Fiona Pena RN - 06/14/2021 2:35 PM CDT Patient's care facility calls and asks for clarification on patient insulin order as pt used to takethis prescription before lunch and dinner. Verbals given by this policy writer as order only changes due toinsurance change. New script will be sent with correct orders with their MAR for next refill. Telephone Encounter - Fiona Pena RN - 06/11/2021 10:31 AM CDT Pharmacy calls and states that Novolog is no longer covered by insurance and Humalog is. Asking for new prescription for this. Last visit in provider department: 06/01/2021 Upcoming appointment with provider: Visit date not found Last Rx: n/a Requested Prescriptions Pending Prescriptions Disp Refills ??? insulin lispro (HumaLOG) 100 UNIT/ML injection 15 mL 2 Sig: Inject 0-7 units subcutaneous twice a day before breakfast and dinner per sliding scale, Normal Labs: Lab Results Component Value Date HGBA1C 8.2 (H) 06/01/2021 Vitals: BP Readings from Last 2 Encounters: 06/01/21 126/74 04/13/21 120/68 documented in this encounter Plan of Treatment Upcoming Encounters Date Type Specialty Care Team Description 01/18/2022 Telemedicine Family Medicine Sebastian Griffiths MD [address] [place] [address] (Wo rk) documented as of this encounter Visit Diagnoses Diagnosis Uncontrolled type 2 diabetes mellitus wi th hyperglycemia (HCC) - Primary documented in this encounter Care Teams Environmental Field Team Member Relationship Specialty Start Date End Date Sebastian Griffiths MD PCP - General 10/24/[address] [place] [phone] documented as of this encounter
--- OUTSIDE RECORDS SUMMARY | 2021-12-09 21:24 | XMS_ITS | Encounter Summary ---
:1950 Author Organization [facility] Address [address] [place] [address] Care Team Providers Name Role Phone Sebastian Griffiths MD Primary Care Provider Reason for Visit Reason Comments UTI rue out uti Encounter Details Date Type Department Care Team Description 04/13/2021 Office Visit SE [facility] Sebastian Griffiths, Chronic, continuous use of o pioids (Primary Dx); [address] [facility] Viral gastroenteritis; [place] [address] Encounter for smoking cessat ion counseling; [phone] Insomnia, unspecified type; [place], [place] Urinary, incon tinence, stress female; [phone] Nicotine dependence with nicotine-induce d disorder, unspecified nicotine product type; [phone] Degenerative di sc disease, lumbar; (Work) Primary osteoarthritis of both knees Social History Tobacco Use Types Packs/Day Years [...] do you attend gnosticism or Never 2020 orthodox services? Do you belong to any clubs [...] Sign Reading Time Taken Comments Blood Pressure 120/68 04/13/2021 9:13 AM PHOTOGRAPHIC AIDE Pulse 114 04/13/2021 8:27 AM PHOTOGRAPHIC AIDE Temperature 35.8 ??C (96.4 ??F) 04/13/2021 8:27 AM PHOTOGRAPHIC AIDE Respiratory Rate 20 04/13/2021 8:27 AM PHOTOGRAPHIC AIDE Oxygen Saturation 91% 04/13/2021 8:27 AM PHOTOGRAPHIC AIDE Inhaled Oxygen Concentration - - Weight 108 kg (237 lb) 04/13/2021 8:27 AM PHOTOGRAPHIC AIDE Height - - Body Mass Index 40.61 10/29/2020 1:25 PM CDT documented in this encounter Progress Notes Sebastian Griffiths MD - 04/13/2021 8:40 AM CST Estab Patient Visit Subjective Patient ID: Rena Fan is a 71 y.o. female. Chief Complaint Patient presents with ??? UTI rue out uti HPI Patient is here for her diabetic checkup and chronic pain checkup. She continues to reside up in [facility]. 3 days ago she was at the emergency room up there with abdominal pain. She states they did blood work, urine checks, and a CT scan of the abdomen and did not find anything serious. She states that the central and lower mid abdominal pain continues but is not as bad. She has had some urinary incontinence for a long time and that is unchanged. She denies any dysuria. Her caretakers would like her zolpidem to be not as needed that she uses it every night. The patient states that she like to have an increased dose of her chronic pain medication because relief seems to run out before the next dose occurs. The following portions of the patient's chart were reviewed in this encounter and updated as appropriate: Tobacco Allergies Meds Problems Med Hx Surg Hx OB Status Fam Hx Soc Hx Review of Systems as per HPI. Objective @AWV@ Vitals taken from Annual Wellness nurse visit: BP Readings from Last 1 Encounters: 04/13/21 120/68 Pulse Readings from Last 1 Encounters: 04/13/21 (!) 114 Resp Readings from Last 1 Encounters: 04/13/21 20 SpO2 Readings from Last 1 Encounters: 04/13/21 91% Wt Readings from Last 1 Encounters: 04/13/21 108 kg (237 lb) Ht Readings from Last 1 Encounters: 10/29/20 1.627 m (5' 4.06) BMI Readings from Last 1 Encounters: 04/13/21 40.61 kg/m?? Physical Exam General: Female in no acute distress. More alert today. Walks with the assistance of a cane. I could not find any emergency room notes to refer to. Abdomen: Patient does not have any rebound or guarding. No edema. No visits with results within 2 Week(s) from this visit. Latest known visit with results is: Lab on 03/02/2021 Component Date Value ??? Antinuclear Antibodies (* 03/02/2021 0.2 ? ? Cyclic Citrullin Peptide* 03/02/2021 <15.6 ??? Interpretation 03/02/2021 - Assessment/Plan Diagnoses and all orders for this visit: Chronic, continuous use of opioids Viral gastroenteritis Encounter for smoking cessation counseling - nicotine polacrilex (Nicorette) 2 MG gum; Chew 1 each (2 mg total) if needed for smoking cessationUse up to 3 pieces of gum a day while also on the patch Insomnia, unspecified type - zolpidem (AMBIEN) 5 MG tablet; TAKE ONE TABLET BY MOUTH EVERY DAY AT BEDTIME Urinary, incontinence, stress female - oxybutynin XL (Ditropan XL) 5 MG 24 hr tablet; Take 1 tablet (5 mg total) by mouth 1 (one) time each day in the evening Do not crush, chew, or split. Nicotine dependence with nicotine-induced disorder, unspecified nicotine product type Degenerative disc disease, lumbar Primary osteoarthritis of both knees Other orders - Flu Vaccine High Dose 65yrs and Older IM I do not think anything more needs to be done with the abdominal pain as I anticipated will continueto improve and should be clear in the next 3 to 5 days. She did request more nicotine gum to try to quit smoking. For her urinary incontinence which she describes as stress incontinence we will try an a ntispasmodic Ditropan 5 mg. Can cause dry mouth. No change in her pain medication. I did offer her 5mg 4 times a day rather than 10 mg 3 times a day but she declined. I do not want to go up on her dose since she is on benzodiazepines also. PDMP checked and was normal. Opioid agreement intact. Recheckin 3 months. OGRAPHIC AIDE documented in this encounter Plan of Treatment Upcoming Encounters Date Type Specialty Care Team Description 01/18/2022 Telemedicine Family Medicine Sebastian Griffiths MD [address] [place], [place] [address] (Wo rk) documented as of this encounter Visit Diagnoses Diagnosis Chronic, continuous use of opioids - Noreen nieto Viral gastroenteritis Intestinal infection due to other organi sm, NEC Encounter for smoking cessation counseli ng Insomnia, unspecified type Urinary, incontinence, stress female Female stress incontinence Nicotine dependence with nicotine-induce d disorder, unspecified nicotine product type Degenerative disc disease, lumbar Primary osteoarthritis of both knees documented in this encounter Care Teams Microwave Engineer Relationship Specialty Start Date End Date Sebastian Griffiths MD PCP - General 10/24/17 [address] [place] [address] documented as of this encounter
--- OUTSIDE RECORDS SUMMARY | 2021-12-09 21:24 | XMS_ITS | Encounter Summary ---
:1950 Author Organization [facility] Address [address] [place] [address] Care Team Providers Name Role Phone Sebastian Griffiths MD Primary Care Provider Reason for Visit Reason Onset Date Comments Med Refill 07/06/2021 Encounter Details Date Type Department Care Team Description 07/06/2021 Refill SE Family Med Sebastian Griffiths MD Dry eyes, bilateral (Primary Dx); [address] [facility] [address] [facility] Generalized anxiety disorder; [place] [address] [place] [address] Chronic pain syndrome [phone] (Wo rk) Social History Tobacco Use Types [...] or relatives? How often do you attend amish or Never 2020 moravian services? Do you belong to any clubs or No 05/18/2020 organizations such as amish groups, unions, fraternal or athletic groups, or [...] Notes Telephone Encounter - IVELISSE Cottrell - 07/06/2021 3:28 PM CDT Patient called and is requesting eye drops for dry eyes. She stated she has not tried anything over the counter due to glaucoma. Please advise. Telephone Encounter - Tamie Shore MA - 07/06/2021 5:28 AM CDT Last visit in provider department: 06/01/2021 Last visit requested medication was discussed: 06/01/2021 Last Rx: LORazepam (ATIVAN) 0.5 MG tablet, #90 with no refills 05/24/2021 oxyCODONE (ROXICODONE) 5 MG immediate release tablet, #180 with no refills 06/11/2021 Requested Prescriptions Pending Prescriptions Disp Refills ??? LORazepam (ATIVAN) 0.5 MG tablet 90 tablet 0 Sig: TAKE 1 TABLET BY MOUTH MOUTH EVERY 8 HOURS CSA was last signed on 01/25/2021 Labs: No RUDS found. No pending lab found. Vitals: BP Readings from Last 2 Encounters: 06/01/21 126/74 04/13/21 120/68 Upcoming appointment with provider: 07/06/2021 at 10am documented in this encounter Plan of Treatment Upcoming Encounters Date Type Specialty Care Team Description 01/18/2022 Telemedicine Family Medicine Sebastian Griffiths MD [address] [place] [phone] (Wo rk) documented as of this encounter Visit Diagnoses Diagnosis Dry eyes, bilateral - Primary Generalized anxiety disorder Chronic pain syndrome documented in this encounter Care Teams Logging Crew Foreman Relationship Specialty Start Date End Date Sebastian Griffiths MD PCP - General 10/24/[address] [place] [address] [phone] documented as of this encounter
--- OUTSIDE RECORDS SUMMARY | 2021-12-09 21:24 | XMS_ITS | Encounter Summary ---
:1950 Author Organization [facility] Address [address] [place] [address] Care Team Providers Name Role Phone Sebastian Griffiths MD Primary Care Provider Reason for Visit Reason Comments hands Swelling Back Pain Encounter Details Date Type Department Care Team Description 03/02/2021 Office Visit SE Family Med Sebastian Griffiths, Immunization due (Primary Dx ); [address] Type II diabetes mellitus with periphera l circulatory disorder (HCC); [place] [address] Uncontrolled type 2 diabetes mellitus with hyperglycemia ([facility]); [phone] Chronic [place] [address] Social History Tobacco Use Types [...] do you attend jainism or Never 2020 amish services? Do you [...] Sign Reading Time Taken Comments Blood Pressure 112/78 03/02/2021 12:24 PM CUSTOMER ENGAGEMENT SPECIALIST Pulse 100 03/02/2021 11:55 AM CUSTOMER ENGAGEMENT SPECIALIST Temperature 35.6 ??C (96 ??F) 03/02/2021 11:55 AM CUSTOMER ENGAGEMENT SPECIALIST Respiratory Rate 20 03/02/2021 11:55 AM CUSTOMER ENGAGEMENT SPECIALIST Oxygen Saturation 94% 03/02/2021 11:55 AM CUSTOMER ENGAGEMENT SPECIALIST Inhaled Oxygen Concentration - - Weight 108 kg (238 lb 14.4 oz) 03/02/2021 11:55 AM CUSTOMER ENGAGEMENT SPECIALIST Height - - Body Mass Index 40.94 10/29/2020 1:25 PM CDT documented in this encounter Progress Notes Sebastian Griffiths MD - 03/02/2021 11:40 AM CST Estab Patient Visit Subjective Patient ID: Rena Fan is a 71 y.o. female. Chief Complaint Patient presents with ??? hands Swelling ??? Back Pain HPI Patient comes in for recheck of her diabetes. She states her blood sugars been running in the 200s and 300s. Her main concern today is that she has bilateral hand pain, left side more so than right. She states she had no trauma falls or activities which would have caused the pain. Pain radiates up thearms and it seems to also radiate into the thumb and index finger. She has no numbness. She has no open sores. The following portions of the patient's chart were reviewed in this encounter and updated as appropriate: Allergies Meds Problems Med Hx Surg Hx Fam Hx Review of Systems She has a note along with her that states that her house staff is noticed that she is more sleepy lately. Patient denies this. She states she sleeps at night well. She continues to complain of her overall pain in her back and in her legs. Desires increased dose of both her anxiety medication and her pain medication. Objective @AWV@ Vitals taken from Annual Wellness nurse visit: BP Readings from Last 1 Encounters: 03/02/21 112/78 Pulse Readings from Last 1 Encounters: 03/02/21 100 Resp Readings from Last 1 Encounters: 03/02/21 20 SpO2 Readings from Last 1 Encounters: 03/02/21 94% Wt Readings from Last 1 Encounters: 03/02/21 108 kg (238 lb 14.4 oz) Ht Readings from Last 1 Encounters: 10/29/20 1.627 m (5' 4.06) BMI Readings from Last 1 Encounters: 03/02/21 40.94 kg/m?? Physical Exam General: Female in no acute distress. Answers questions appropriately. At times looks tired. Examination of the hands does show diffuse swelling particularly in the left hand around the thenar eminence and the dorsum of the hand. No bruising. Color is good. No visits with results within 2 Week(s) from this visit. Latest known visit with results is: Lab on 01/25/2021 Component Date Value ??? Hemoglobin A1C 01/25/2021 9.0* ??? Microalbumin,mg/day 01/25/2021 22.3* ??? Creatinine, Urine 01/25/2021 23 ??? Microalb/Creat Ratio 01/25/2021 97* Assessment/Plan Diagnoses and all orders for this visit: Immunization due - Flu Vaccine High Dose 65yrs and Older IM Type II diabetes mellitus with peripheral circulatory disorder (HCC) - insulin glargine (LANTUS) 100 UNIT/ML injection; Inject 40 units SQ once in the evening. This is an increase from 35 units a day prior to 03/02/2021. - Blood Glucose Monitoring Suppl (Accu-Chek Guide) w/Device kit; USE DIRECTED TO TEST BLOOD SUGARS FOUR TIMES DAILY Uncontrolled type 2 diabetes mellitus with hyperglycemia (HCC) - insulin glargine (LANTUS) 100 UNIT/ML injection; Inject 40 units SQ once in the evening. This is an increase from 35 units a day prior to 03/02/2021. - Hemoglobin A1c; Future Chronic pain of both wrists - Connective tissue cascade; Future I will contact her or her caregivers with results of the blood test. No x-rays today. She did get a flu shot today high increase her insulin doses from 35 to 40 units of Lantus. For the swollen hands test for rheumatoid arthritis. She will be due for a hemoglobin A1c when I see her backin 3 months. OMER ENGAGEMENT SPECIALIST documented in this encounter Plan of Treatment Upcoming Encounters Date Type Specialty Care Team Description 01/18/2022 Telemedicine Family Medicine Sebastian Griffiths MD [address] [place] [phone] (Wo rk) documented as of this encounter Results (ABNORMAL) Hemoglobin A1c (06/01/2021 12:09 PM CDT) Analysis Performed At [facility] logist Time Signature Hemoglobin A1C 8.2 (H) 4.0 - 5.6 06/01/2021 WALKER % A1C 5:10 PM CDT [facility] Comment: Reference Range 4.0-5.6% is for [...] [facility] [address] [place] [address] Connective tissue cascade (03/02/2021 12:53 PM CUSTOMER ENGAGEMENT SPECIALIST) [facility] gist Method Time Signature Antinuclear 0.2 <=1.0 03/04/2021 [facility] Antibodies (ACACIA) (Negative) 12:18 PM CUSTOMER ENGAGEMENT SPECIALIST LABORATOR IES U Comment: ADDITIONAL INFORMATIO N Method: Enzyme-linked immunoassay using HEp-2 nuclear extract supplemented with purified antig ens. Cyclic Citrullin <15.6 <20.0 (Negative) 03/04/2021 12:18 [facility] Peptide Ab U PM CUSTOMER ENGAGEMENT SPECIALIST LABORATORIES Interpretation - 03/04/2021 12:18 [facility] ICAL PM CUSTOMER ENGAGEMENT SPECIALIST LABORATORIES Comment: Tests for antibodies to dsDNA and KONSTANTIN an tigens are not performed automatically unless the ACACIA r esult is > or = 3.0 U. ??Studies performed at [facility] indicate that positive ACACIA results <3.0 U are rarely a ccompanied by positive second order tests. Test Performed by: [facility] [address] [id number] Claims Adjudicator: Sami Crenshaw M.D. Ph. D.; CLIA# [id number] Specimen Anatomical Collection Method Collection Time Receive d Time (Source) Location / / Volume Laterality Blood 03/02/2021 12:53 03/02/2021 4:45 PM CUSTOMER ENGAGEMENT SPECIALIST PM CUSTOMER ENGAGEMENT SPECIALIST Sebastian Griffiths MD LAB BLOOD ORDERABLES Performing Organization Address City/State/ZIP Code Phon e Number [facility] see result attachment for specific address documented in this encounter Visit Diagnoses Diagnosis Immunization due - Primary Type II diabetes mellitus with periphera l circulatory disorder (HCC) Type II or unspecified type diabetes giuseppe litus with peripheral circulatory disorders, not stated as uncontrolled Uncontrolled type 2 diabetes mellitus wi th hyperglycemia (HCC) Chronic pain of both wrists documented in this encounter Care Teams Stone Sawyer Relationship Specialty Start Date End Date Sebastian Griffiths MD PCP - General 10/24/[address] [place] [phone] documented as of this encounter
--- OUTSIDE RECORDS SUMMARY | 2021-12-09 21:24 | XMS_ITS | Encounter Summary ---
:1950 Author Organization [facility] Address [address] [place] [address] Care Team Providers Name Role Phone Sebastian Griffiths MD Primary Care Provider Reason for Visit Reason Onset Date Comments triage throat pain 06/22/2021 Encounter Details Date Type Department Care Team Description 06/22/2021 Telephone [facility] Sebastian Griffiths MD triage throat pain [address] [facility] [address] [place] [address] [place] [address] [phone] (Wo rk) Social History Tobacco Use Types [...] or relatives? How often do you attend episcopalian or Never 2020 quaker services? Do you belong to any clubs or No 05/18/2020 organizations such as episcopalian groups, unions, fraternal or athletic groups, or [...] this encounter Miscellaneous Notes Telephone Encounter - Sun Gloria RN - 06/24/2021 3:58 PM CDT Talked to patient. She is wanting an increase in her pain med dose. Advised she would need to schedule appt with provider to discuss. Patient is scheduled for EGD this month. Telephone Encounter - Ev Rice RN - 06/23/2021 4:18 PM CDT Dispatcher Ship Pilot tried to call patient but her voice mail box is not set up and there was no answer. Telephone Encounter - Juliana Engle - 06/22/2021 12:46 PM CDT Patient called stating that she has pain in her throat when she eats and it hurts all the time. Patient stated that it is swollen. Dispatcher Ship Pilot tried to transfer to a triage nurse, patient hung up after waiting 8 minutes on hold. Please advise. documented in this encounter Plan of Treatment Upcoming Encounters Date Type Specialty Care Team Description 01/18/2022 Telemedicine Family Medicine Sebastian Griffiths MD [address] [place] [phone] (Wo rk) documented as of this encounter Visit Diagnoses Not on filedocumented in this encounter Care Teams Manager Radio Relationship Specialty Start Date End Date Sebastian Griffiths MD PCP - General 10/24/[address] [place] [address] [phone] documented as of this encounter
--- OUTSIDE RECORDS SUMMARY | 2021-12-09 21:24 | XMS_ITS | Encounter Summary ---
:1950 Author Organization [facility] Address [address] [place] [address] Care Team Providers Name Role Phone Sebastian Griffiths MD Primary Care Provider Reason for Visit Reason Onset Date Comments Med Refill 05/12/2021 Encounter Details Date Type Department Care Team Description 05/12/2021 Refill SE Family Med Sebastian Griffiths MD Chronic pain syndrome [address] [facility] [address] [place] [address] [place] [address] [phone] (Wo rk) Social History Tobacco Use Types [...] do you attend nondenominational or Never 2020 sabianism services? Do you [...] Telephone Encounter - Catherine Frank LPN - 05/12/2021 3:18 PM COPIER TECHNICIAN Last visit in provider department: 04/13/21 Last visit requested medication was discussed:04/13/21 Upcoming appointment with provider: 05/18/2021 Last Rx: 04/16/21 #180 Requested Prescriptions Pending Prescriptions Disp Refills ??? oxyCODONE (ROXICODONE) 5 MG immediate release tablet 180 tablet 0 Sig: Take 2 tablets (10 mg total) by mouth every 8 (eight) hours Labs: Vitals: BP Readings from Last 2 Encounters: 04/13/21 120/68 03/02/21 112/78 01/25/21 CSA ER TECHNICIAN documented in this encounter Plan of Treatment Upcoming Encounters Date Type Specialty Care Team Description 01/18/2022 Telemedicine Family Medicine Sebastian Griffiths MD [address] [place], [place] [phone] (Wo rk) documented as of this encounter Visit Diagnoses Diagnosis Chronic pain syndrome documented in this encounter Care Teams Clothing Presser Relationship Specialty Start Date End Date Sebastian Griffiths MD PCP - General 10/24/[address] [place] [address] [phone] documented as of this encounter
--- OUTSIDE RECORDS SUMMARY | 2021-12-09 21:25 | XMS_ITS | Encounter Summary ---
:1950 Author Organization [facility] Address [address] [place] [id number] Care Team Providers Name Role Phone Sebastian Griffiths MD Primary Care Provider Encounter Details Date Type Department Care Team Description 01/25/2021 Travel Social History Tobacco Use Types Packs/Day [...] or relatives? How often do you attend religion or Never 2020 orthodoxy services? Do you belong to any clubs or No 05/18/2020 organizations such as religion groups, unions, fraternal or athletic groups, or [...] been in contact with No / Unsure 01/25/2021 2:38 PM GRILL ASSOCIATE someone who was confirmed or suspected to have Coronavirus / COVID-19? documented as of this encounter Plan of Treatment Upcoming Encounters Date Type Specialty Care Team Description 01/18/2022 Telemedicine Family Medicine Sebastian Griffiths MD [address] [place] [address] (Wo rk) documented as of this encounter Visit Diagnoses Not on filedocumented in this encounter Care Teams Sales Merchandise Associate Relationship Specialty Start Date End Date Sebastian Griffiths MD PCP - General 10/24/[address] [place] [phone] documented as of this encounter
--- OUTSIDE RECORDS SUMMARY | 2021-12-09 21:25 | XMS_ITS | Encounter Summary ---
:1950 Author Organization [facility] Address [address] [place] [address] Care Team Providers Name Role Phone Sebastian Griffiths MD Primary Care Provider Reason for Visit Reason Onset Date Comments Med Refill 12/31/2020 Encounter Details Date Type Department Care Team Description 12/31/2020 Refill SE Ophthalmology Thang Aguilar, OD Primary open angle [address] ROGER glaucoma ([place]) [place] [address] [place] [address] eyes, severe stage [phone] (Wo rk) Social History Tobacco Use Types [...] do you attend voodoo or Never 2020 nondenominational services? Do you [...] this encounter Miscellaneous Notes Telephone Encounter - Thang Aguilar OD - 12/31/2020 10:27 AM CDT Pt should follow up with [facility] or schedule a glaucoma eval with Dr. Nguyen. Thanks Telephone Encounter - Chataprice Garyes - 12/31/2020 9:44 AM CDT Patient is seen at [facility] for her POAG. Telephone Encounter - Tamie Kuhn MA - 12/31/2020 9:37 AM CDT Last visit in provider department: 12/26/2018- [facility] Last visit requested medication was discussed: 12/26/2018- [facility] Upcoming appointment with provider: None Last Rx: 06/14/2018- 10mL with 11 refills Requested Prescriptions Pending Prescriptions Disp Refills ??? dorzolamide-timolol (Cosopt) 22.3-6.8 MG/ML ophthalmic solution 10 mL 11 Sig: Administer 1 drop into both eyes 2 (two) times a day Vitals: BP Readings from Last 2 Encounters: 12/03/20 (!) 138/92 10/29/20 140/80 Patient is due for an appointment. PSR/Nurse: Please contact patient to assist with scheduling. documented in this encounter Plan of Treatment Upcoming Encounters Date Type Specialty Care Team Description 01/18/2022 Telemedicine Family Medicine Sebastian Griffiths MD [address] [place], [place] [phone] (Wo rk) documented as of this encounter Visit Diagnoses Diagnosis Primary open angle glaucoma (POAG) of amelia th eyes, severe stage documented in this encounter Care Teams Cotton Jammer Relationship Specialty Start Date End Date Sebastian Griffiths MD PCP - General 10/24/[address] [place] [phone] documented as of this encounter
--- OUTSIDE RECORDS SUMMARY | 2021-12-09 21:25 | XMS_ITS | Encounter Summary ---
:[address] [facility] Address [address] [place] [address] Care Team Providers Name Role Phone Sebastian Griffiths MD Primary Care Provider Reason for Visit Reason Onset Date Comments Med Refill 11/30/2020 Encounter Details Date Type Department Care Team Description 11/30/2020 Refill SE Family Med Sebastian Griffiths MD Generalized anxiety [address] [facility] [address] [place] [address] [place] [address] [phone] (Wo rk) Social History Tobacco Use Types [...] or relatives? How often do you attend confucianism or Never 2020 samaritan services? Do you belong to any clubs or No 05/18/2020 organizations such as confucianism groups, unions, fraternal or athletic groups, or [...] this encounter Miscellaneous Notes Addendum Note - Syl Cheng LPN - 12/01/2020 11:05 AM CDT Addended by: SYL CHENG on: 12/01/2020 11:05 AM Modules accepted: Orders Telephone Encounter - Tamie Stewart - 12/01/2020 10:10 AM CDT Ativan needs to go to [facility] please change Telephone Encounter - Sebastian Griffiths MD - 11/30/2020 11:03 PM CDT She should keep both prescriptions at 3 times a day Telephone Encounter - Fiona Pena RN - 11/30/2020 12:33 PM CDT Last visit in Provider Department: 11/04/2020 Upcoming appointment with Provider: Visit date not found Last Rx: 11/10/20 Requested Prescriptions Pending Prescriptions Disp Refills ??? LORazepam (ATIVAN) 0.5 MG tablet 90 tablet 0 Sig: TAKE 1 TABLET BY MOUTH MOUTH EVERY 8 HOURS IF NEEDED FOR ANXIETY CSA: 10/21/19 Telephone Encounter - Tamie Stewart - 11/30/2020 7:52 AM CDT LORazepam (ATIVAN) 0.5 MG tablet [facility] Pt needs refills Pt is also requesting more OXY and she needs them for every 6 hours 8 does not work for her documented in this encounter Plan of Treatment Upcoming Encounters Date Type Specialty Care Team Description 01/18/2022 Telemedicine Family Medicine Sebastian Griffiths MD [address] [place] [address] (Wo rk) documented as of this encounter Visit Diagnoses Diagnosis Generalized anxiety disorder documented in this encounter Care Teams Editor Continuity And Script Relationship Specialty Start Date End Date Sebastian Griffiths MD PCP - General 10/24/[address] [place] [phone] documented as of this encounter
--- OUTSIDE RECORDS SUMMARY | 2021-12-09 21:25 | XMS_ITS | Encounter Summary ---
:1950 Author Organization [facility] Address [address] [place] [address] Care Team Providers Name Role Phone Sebastian Griffiths MD Primary Care Provider Reason for Visit Reason Onset Date Comments Med Refill 11/27/2020 Encounter Details Date Type Department Care Team Description 11/27/2020 Refill SE Family Med Sebastian Griffiths MD Chronic pain syndrome [address] [facility] [address] [place] [address] [place] [address] [phone] (Wo rk) Social History Tobacco Use Types [...] do you attend christian or Never 2020 zoroastrianism services? Do you belong to any clubs [...] encounter Miscellaneous Notes Telephone Encounter - Cat Farrell MD - 11/27/2020 4:56 PM CDT Sent #20 tabs to get her through the weekend, further refills from PCP Telephone Encounter - Yanna Cheng LPN - 11/27/2020 2:58 PM CDT MARLENE Austin, with [facility] calls on behalf of patient. She is a new admit to their facility from hospital discharge after a fall and injury to her back. She was supplied oxycodone 10 mg IR tablets, take 10 mg by mouth every 6 hours for 3 days, #12 and no refills. She will be out this weekend. Nurse reports patient is complaining of lots of pain still and wondering if PCP would be willing to refill the Oxycodone rx for her? If so, it can be sent to [facility] in [place]. documented in this encounter Plan of Treatment Upcoming Encounters Date Type Specialty Care Team Description 01/18/2022 Telemedicine Family Medicine Sebastian Griffiths MD [address] [place] [phone] (Wo rk) documented as of this encounter Visit Diagnoses Diagnosis Chronic pain syndrome documented in this encounter Care Teams Director State Pharmacy Relationship Specialty Start Date End Date Sebastian Griffiths MD PCP - General 10/24/[address] [place] [address] [phone] documented as of this encounter
--- OUTSIDE RECORDS SUMMARY | 2021-12-09 21:25 | XMS_ITS | Encounter Summary ---
:1950 Author Organization [facility] Address [address] [place] [address] Care Team Providers Name Role Phone Sebastian Griffiths MD Primary Care Provider Encounter Details Date Type Department Care Team Description 02/22/2021 Refill SE Family Med Sebastian Griffiths MD Generalized anxiety [address] [facility] [address] [place] [address] [place] [address] [phone] (Wo rk) Social History Tobacco Use Types [...] or relatives? How often do you attend latter day or Never 2020 anglican services? Do you belong to any clubs or No 05/18/2020 organizations such as latter day groups, unions, fraternal or athletic groups, or [...] with No / Unsure 01/25/2021 2:38 PM MULTIMEDIA COORDINATOR someone who was confirmed or suspected to have Coronavirus / COVID-19? documented as of this encounter Miscellaneous Notes Telephone Encounter - Ailin George LPN - 02/22/2021 3:49 PM CST Pharmacy called, facility requests lorazepam to be scheduled every 8 hours. This is noted in 01/26/21telephone call. Please reorder as scheduled if agree. IMEDIA COORDINATOR documented in this encounter Plan of Treatment Upcoming Encounters Date Type Specialty Care Team Description 01/18/2022 Telemedicine Family Medicine Sebastian Griffiths MD [address] [place], [place] [phone] (Wo rk) documented as of this encounter Visit Diagnoses Diagnosis Generalized anxiety disorder documented in this encounter Care Teams Control Officer Relationship Specialty Start Date End Date Sebastian Griffiths MD PCP - General 10/24/[address] [place] [address] [phone] documented as of this encounter
--- OUTSIDE RECORDS SUMMARY | 2021-12-09 21:25 | XMS_ITS | Encounter Summary ---
:1950 Author Organization [facility] Address [address] [place] [address] Care Team Providers Name Role Phone Sebastian Griffiths MD Primary Care Provider Reason for Visit Reason Onset Date Comments Med Refill 01/14/2021 Encounter Details Date Type Department Care Team Description 01/14/2021 Refill SE Family Med Sebastian Griffiths MD Controlled type 2 [address] [facility] [address] [place] [address] [place] [address] without complication, (Wo rk) without long-term current u se of insulin (HCC) Social History Tobacco Use Types Packs/Day Years [...] do you attend taoism or Never 2020 mu-ism services? Do you [...] Miscellaneous Notes Telephone Encounter - Catherine Frank, ADRIAN - 01/14/2021 12:33 PM CDT Last visit in provider department: 12/03/20 Last visit requested medication was discussed:06/23/20 Upcoming appointment with provider: 01/25/2021 Last Rx: 12/24/19 #100 with 4 refills Requested Prescriptions Pending Prescriptions Disp Refills ??? aspirin (Aspirin Low Dose) 81 MG chewable tablet 100 tablet 4 Sig: CHEW ONE TABLET BY MOUTH DAILY Labs: Vitals: BP Readings from Last 2 Encounters: 12/03/20 (!) 138/92 10/29/20 140/80 documented in this encounter Plan of Treatment Upcoming Encounters Date Type Specialty Care Team Description 01/18/2022 Telemedicine Family Medicine Sebastian Griffiths MD [address] [place] [phone] (Wo rk) documented as of this encounter Visit Diagnoses Diagnosis Controlled type 2 diabetes mellitus with out complication, without long-term current use of insulin (HCC) documented in this encounter Care Teams Metalworker Relationship Specialty Start Date End Date Sebastian Griffiths MD PCP - General 10/24/[address] [place] [phone] documented as of this encounter
--- OUTSIDE RECORDS SUMMARY | 2021-12-09 21:25 | XMS_ITS | Encounter Summary ---
:1950 Author Organization [facility] Address [address] [place] [address] Care Team Providers Name Role Phone Sebastian Griffiths MD Primary Care Provider Reason for Visit Reason Onset Date Comments Med Refill 01/29/2021 Encounter Details Date Type Department Care Team Description 01/29/2021 Refill SE Family Med Sebastian Griffiths MD Uncontrolled type 2 [address] [facility] [address] [place] [address] [place] [address] hyperglycemia (HCC) [phone] (Wo rk) (Primary Dx) Social History Tobacco [...] do you attend religion or Never 2020 bahai services? Do you [...] with No / Unsure 01/25/2021 2:38 PM COAL CARRIER someone who was confirmed or suspected to have Coronavirus / COVID-19? documented as of this encounter Miscellaneous Notes Telephone Encounter - Tamie Shore MA - 01/29/2021 6:25 AM CST Last visit in provider department: 01/25/2021 Last visit requested medication was discussed: 01/25/2021 Upcoming appointment with provider: None Last Rx: NovoFine Autocover Pen Needle 30G X 8 MM misc, historical provider Requested Prescriptions Pending Prescriptions Disp Refills ??? NovoFine Autocover Pen Needle 30G X 8 MM misc 100 each 0 Sig: Use up to three times daily with insulin Labs: Component Latest Ref Rng & Units 01/25/2021 Hemoglobin A1C 4.0 - 5.6 % A1C 9.0 (H) No pending lab found. Vitals: BP Readings from Last 2 Encounters: 01/25/21 138/80 12/03/20 (!) 138/92 Please advise, thank you. CARRIER documented in this encounter Plan of Treatment Upcoming Encounters Date Type Specialty Care Team Description 01/18/2022 Telemedicine Family Medicine Sebastian Griffiths MD [address] [place] [phone] (Wo rk) documented as of this encounter Visit Diagnoses Diagnosis Uncontrolled type 2 diabetes mellitus wi th hyperglycemia (HCC) - Primary documented in this encounter Care Teams Boatswain Mate Relationship Specialty Start Date End Date Sebastian Griffiths MD PCP - General 10/24/[address] [place] [address] [phone] documented as of this encounter
--- OUTSIDE RECORDS SUMMARY | 2021-12-09 21:25 | XMS_ITS | Encounter Summary ---
:1950 Author Organization [facility] Address [address] [place] [address] Care Team Providers Name Role Phone Sebastian Griffiths MD Primary Care Provider Reason for Visit Reason Onset Date Comments Med Refill 01/20/2021 Encounter Details Date Type Department Care Team Description 01/20/2021 Refill SE Family Med Sebastian Griffiths MD Chronic pain syndrome [address] [facility] [address] [place] [address] [place] [address] [phone] (Wo rk) Social History Tobacco Use Types [...] do you attend congregation or Never 2020 latter-day services? Do you belong to any clubs [...] Telephone Encounter - Mandi Kwon MA - 01/20/2021 10:09 AM CDT Last visit in provider department: 12/03/2020 Iwona Rivera, ROMAN, MAILING MACHINE ASSISTANT, BUTTON BUTTONHOLE MARKER Last visit requested medication was discussed: 10/02/2020 Upcoming appointment with provider: 01/25/2021 Last Rx: #180 no refills Written 12/22/2020 to fill 12/31/2020 Requested Prescriptions Pending Prescriptions Disp Refills ??? oxyCODONE (ROXICODONE) 5 MG immediate release tablet 180 tablet 0 Sig: Take 2 tablets (10 mg total) by mouth every 8 (eight) hours if needed for moderate pain Opioid Agreement - Electronic signature on 10/21/2019 ??2:41 PM - 1 of 2 e- signatures recorded Vitals: BP Readings from Last 2 Encounters: 12/03/20 (!) 138/92 10/29/20 140/80 documented in this encounter Plan of Treatment Upcoming Encounters Date Type Specialty Care Team Description 01/18/2022 Telemedicine Family Medicine Sebastian Griffiths MD [address] [place], [place] [phone] (Wo rk) documented as of this encounter Visit Diagnoses Diagnosis Chronic pain syndrome documented in this encounter Care Teams Finish Saw Operator Relationship Specialty Start Date End Date Sebastian Griffiths MD PCP - General 10/24/17 [address] [place], [place] [phone] documented as of this encounter
--- OUTSIDE RECORDS SUMMARY | 2021-12-09 21:25 | XMS_ITS | Encounter Summary ---
:1950 Author Organization [facility] Address [address] [place] [address] Care Team Providers Name Role Phone Sebastian Griffiths MD Primary Care Provider Reason for Visit Reason Comments Throat Problem FB sensation in throat times 3 months,voice changes,Dysphagia Consultation (Routine) - Authorized Specialty Diagnoses / Procedures Referred By Contact Refer red To Contact Otolaryngology Diagnoses Throat fullness Sebastian Griffiths MD Ear Nose Throat [address] [facility] [address] [place] [address] [place] [address] Fax: Referral ID Status Reason Start Expiration Visits Visits Date Date Requested Authorized [id number] Authorized Specialty 01/25/2021 01/25/2022 1 1 Services Required Encounter Details Date Type Department Care Team Description 02/19/2021 Procedure visit Ear Nose Throat Christopher, Carson Laryngopharyngeal reflux (LP R) (Primary Dx); [address] [facility] MD López Dysphagia, unspecified type; [place], [place] Sore throat [address] Social History Tobacco Use Types Packs/Day Years [...] or relatives? How often do you attend sabianism or Never 2020 mosque services? Do you belong to any clubs or No 05/18/2020 organizations such as sabianism groups, unions, fraternal or athletic groups, or [...] of school you have High school gra leobardouriel 05/18/2020 completed or the highest degree you have received? Sex Assigned at Date Recorded Not on file COVID-19 Exposure Response Date Recorded In the last month, have you been in contact with No / Unsure 01/25/2021 2:38 PM MANUFACTURING INTERN someone who was confirmed or suspected to have Coronavirus / COVID-19? documented as of this encounter Last Filed Vital Signs Vital Sign Reading Time Taken Comments Blood Pressure 140/80 02/19/2021 1:43 PM MANUFACTURING INTERN Pulse 117 02/19/2021 1:43 PM MANUFACTURING INTERN Temperature 35.8 ??C (96.5 ??F) 02/19/2021 1:43 PM MANUFACTURING INTERN Respiratory Rate - - Oxygen Saturation 92% 02/19/2021 1:43 PM MANUFACTURING INTERN Inhaled Oxygen Concentration - - Weight 108 kg (238 lb 11.2 oz) 02/19/2021 1:43 PM MANUFACTURING INTERN Height - - Body Mass Index 40.9 10/29/2020 1:25 PM CDT documented in this encounter Patient Instructions Patient InstructionsCarson White MD - 02/19/2021 1:45 PM CST Appears to have some inflammation of the throat but no signs of any mass or lesion or growth. I willsee her back as needed. She will return to Dr. Griffiths for further GI work-up if needed FACTURING INTERN documented in this encounter Progress Notes Carson White MD - 02/19/2021 1:45 PM CST New Patient Visit Subjective Patient ID: Rena Fan is a 71 y.o. female. Chief Complaint Patient presents with ??? Throat Problem FB sensation in throat times 3 months,voice changes,Dysphagia HPI 71-year-old female with a history of multiple throat complaints. 1 is soreness. She states this is worse with swallowing. She also complains of fullness in the throat and a cough as well as an occasional change in her voice. She takes many medications. She states that she takes meds for reflux as well. 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 The flexible fiberoptic laryngoscope was then passed to the right nostril. Base of tongue and vallecula appeared normal.Epiglottis appeared normal. True vocal cords moved well bilaterally. Throat shows some inflammation diffusely and redness. I see no masses or lesions. Findings: Mild irritation of the throat, no masses or lesions Complications: none Assessment/Plan Diagnoses and all orders for this visit: Laryngopharyngeal reflux (LPR) Dysphagia, unspecified type Sore throat I feel that she is does have problems continuing with reflux. She also has some regurgitation problems, and I will defer to Dr. Griffiths to have her follow-up with gastroenterology if he feels Fahad needed FACTURING INTERN Sebastian Griffiths MD - 02/19/2021 1:45 PM CST Reviewed FACTURING INTERN documented in this encounter Plan of Treatment Upcoming Encounters Date Type Specialty Care Team Description 01/18/2022 Telemedicine Family Medicine Sebastian Griffiths MD [address] [place] [address] 14 (Wo rk) documented as of this encounter Visit Diagnoses Diagnosis Laryngopharyngeal reflux (LPR) - Primary Dysphagia, unspecified type Sore throat Acute pharyngitis documented in this encounter Care Teams Equity Manager Relationship Specialty Start Date End Date Sebastian Griffiths MD PCP - General 10/24/17 [address] [place] [address] documented as of this encounter
--- OUTSIDE RECORDS SUMMARY | 2021-12-09 21:25 | XMS_ITS | Encounter Summary ---
:1950 Author Organization [facility] Address [address] [place] [address] Care Team Providers Name Role Phone Sebastian Griffiths MD Primary Care Provider Encounter Details Date Type Department Care Team Description 01/12/2021 Telephone SE Family Med Sebastian Griffiths MD [address] [facility] [address] [place] [address] [place] [address] [phone] (Wo rk) Social History Tobacco Use Types [...] do you attend restoration or Never 2020 druze services? Do you belong to any clubs [...] Telephone Encounter - Cat Adair MA - 01/19/2021 10:03 AM CDT PA approved until 03/19/2022. Pharmacy notified. Telephone Encounter - Magdalena Meadows LPN - 01/12/2021 9:57 AM CDT EMILEE GALVEZ?-?LIMITED INCOME NET ([facility]) Covered: Retail Not covered: Mail Order Unknown: Specialty, Long-Term Care 1950 - Group ID: [id number] [place], [place] [id number] Unable to find correct insurance. Comes up [employer] but the ID doesn't start with an H. Sc[place] in [place] from 2020 [place], that doesn't come up either. Faxed back to pharmacy to review. documented in this encounter Plan of Treatment Upcoming Encounters Date Type Specialty Care Team Description 01/18/2022 Telemedicine Family Medicine Sebastian Griffiths MD [address] [place], [place] [address] (Wo rk) documented as of this encounter Visit Diagnoses Not on filedocumented in this encounter Care Teams Blow Up Operator Relationship Specialty Start Date End Date Sebastian Griffiths MD PCP - General 10/24/17 [address] [place], [place] [phone] documented as of this encounter
--- OUTSIDE RECORDS SUMMARY | 2021-12-09 21:25 | XMS_ITS | Encounter Summary ---
:1950 Author Organization [facility] Address [address] [place] [address] Care Team Providers Name Role Phone Sebastian Griffiths MD Primary Care Provider Reason for Visit Reason Onset Date Comments Med Refill 12/29/2020 Encounter Details Date Type Department Care Team Description 12/29/2020 Refill SE Family Med Sebastian Griffiths MD Type II diabetes mellitus with periphera l circulatory disorder (HCC); [address] Uncontrolled type 2 diabetes mellitus wi th hyperglycemia (HCC) [place] [address] [place] [address] [phone] (Wo rk) Social History Tobacco Use Types [...] do you attend congregation or Never 2020 sikh services? Do you [...] Telephone Encounter - Mandi Kwon MA - 12/29/2020 2:48 PM CDT Last visit in provider department: 12/03/2020 Iwona Rivera DNP, APRN, CNP Last visit requested medication was discussed: 09/17/2020 Upcoming appointment with provider: 01/25/2021 Last Rx: Test Strips #300 +3 refills 07/08/2020 For Insurance needs new prescription after 6 months Requested Prescriptions Pending Prescriptions Disp Refills ??? glucose blood test strip 300 each 3 Sig: Use to test blood sugar three times daily Labs: Component Ref Range & Units 11/15/20 0803 Hemoglobin A1c, B 4.0 - 5.6 % 9.3High Vitals: BP Readings from Last 2 Encounters: 12/03/20 (!) 138/92 10/29/20 140/80 documented in this encounter Plan of Treatment Upcoming Encounters Date Type Specialty Care Team Description 01/18/2022 Telemedicine Family Medicine Sebastian Griffiths MD [address] [place], [place] [phone] (Wo rk) documented as of this encounter Visit Diagnoses Diagnosis Type II diabetes mellitus with periphera l circulatory disorder (HCC) Type II or unspecified type diabetes giuseppe litus with peripheral circulatory disorders, not stated as uncontrolled Uncontrolled type 2 diabetes mellitus wi th hyperglycemia (HCC) documented in this encounter Care Teams Data Examination Clerk Relationship Specialty Start Date End Date Sebastian Griffiths MD PCP - General 10/24/[address] [place] [id number] documented as of this encounter
--- OUTSIDE RECORDS SUMMARY | 2021-12-09 21:25 | XMS_ITS | Encounter Summary ---
:1950 Author Organization [facility] Address [address] [place] [address] Care Team Providers Name Role Phone Sebastian Griffiths MD Primary Care Provider Reason for Visit Reason Onset Date Comments pain medication increase request 11/04/2020 Encounter Details Date Type Department Care Team Description 11/04/2020 Telephone [facility] Sebastian Griffiths, pain medication [address] [facility] [place] [address] [place] [address] [place], [place] [address] Social History Tobacco Use Types Packs/Day Years [...] or relatives? How often do you attend gnosticist or Never 2020 advent services? Do you belong to any clubs or No 05/18/2020 organizations such as gnosticist groups, unions, fraternal or athletic groups, or [...] this encounter Miscellaneous Notes Telephone Encounter - Fiona Pena RN - 11/06/2020 3:13 PM CDT Informed RN of message from PCP. No questions at this time. Verbally agrees to understanding. Telephone Encounter - Fiona Pena RN - 11/06/2020 11:06 AM CDT Left message for patient to call back. Telephone Encounter - Sebastian Griffiths MD - 11/05/2020 5:02 PM CDT Updated prescription for 2 of the 5 mg tablets 3 times a day, sent in to [facility] Telephone Encounter - Liyah Frias - 11/05/2020 3:14 PM CDT Abigail from the group home called checking on the status as they haven't received anything yet. She mentioned pt is very anxious and demanding about getting this medication. Telephone Encounter - Amanda Parkinson RN - 11/05/2020 11:39 AM CDT Informed nursing staff of updated dosing instructions on oxycodone. They are aware she is to use thesupply she was prescribed on 10/30, but will need Dr. Griffiths to send prescription with updated instructions on it to [facility] pharmacy before then can increase her medication. Please advise. Telephone Encounter - Amanda Parkinson RN - 11/05/2020 10:49 AM CDT Patient was informed she can take 2 of her 5mg oxycodone tablets TID, should call us with an update before she runs out of her current medication supply. Called nursing at [facility] [phone]. [facility] for Abigail Sawyer RN clinical director. Telephone Encounter - Sebastian Griffiths MD - 11/04/2020 5:25 PM CDT She picked up her prescription for the 5 mg tablets on the . Tell her and her group home nursethat she can now take 10 mg 3 times a day. Before she runs out of her current quantity of 90, let meknow so I can adjust the dose and quantity. Thanks. Telephone Encounter - Amanda Parkinson RN - 11/04/2020 10:51 AM CDT Patient was seen yesterday in [facility] ER at [facility] due to acute back pain, imaging done- patient had compression fracture of T5. She calls asking for increase in pain medication. Rx for oxycodone 5 mg TID written 10/30/20. Please advise. Has follow up appointment scheduled on 11/16/20 documented in this encounter Plan of Treatment Upcoming Encounters Date Type Specialty Care Team Description 01/18/2022 Telemedicine Family Medicine Sebastian Griffiths MD [address] [place] [phone] (Wo rk) documented as of this encounter Visit Diagnoses Diagnosis Chronic pain syndrome documented in this encounter Care Teams Printing Shop Supervisor Relationship Specialty Start Date End Date Sebastian Griffiths MD PCP - General 10/24/[address] [place] [phone] documented as of this encounter
--- OUTSIDE RECORDS SUMMARY | 2021-12-09 21:25 | XMS_ITS | Encounter Summary ---
:1950 Author Organization [facility] Address [address] [place] [address] Care Team Providers Name Role Phone Sebastian Griffiths MD Primary Care Provider Reason for Visit Reason Comments Med Refill Encounter Details Date Type Department Care Team Description 02/03/2021 Refill SE Family Med Sebastian Griffiths, Gastroesophageal reflux [address] [facility] disease [place] [address] [address] [facility] [phone] [place], [place] [address] Social History Tobacco Use Types Packs/Day Years [...] you attend latter day or Never 2020 hinduism services? Do you belong to any clubs [...] with No / Unsure 01/25/2021 2:38 PM CAR MECHANIC HELPER someone who was confirmed or suspected to have Coronavirus / COVID-19? documented as of this encounter Miscellaneous Notes Telephone Encounter - Jayshree Rodriguez MA - 02/05/2021 9:08 AM CAR MECHANIC HELPER Rx completed on 12/14/20, #90, 1 refill Requested Prescriptions Pending Prescriptions Disp Refills ??? pantoprazole (PROTONIX) 40 MG EC tablet [Pharmacy Med Name: Pantoprazole Sodium 40 MG Tablet delayed release] 28 tablet 12 Sig: TAKE 1 TABLET BY MOUTH EVERY MORNING BEFORE BREAKFAST E-Prescribing Status: Receipt confirmed by pharmacy (12/14/2020 11:59 AM CDT) MECHANIC HELPER documented in this encounter Plan of Treatment Upcoming Encounters Date Type Specialty Care Team Description 01/18/2022 Telemedicine Family Medicine Sebastian Griffiths MD [address] [place] [phone] (Wo rk) documented as of this encounter Visit Diagnoses Diagnosis Gastroesophageal reflux disease without esophagitis Esophageal reflux documented in this encounter Care Teams Camera Prototyping Engineer Relationship Specialty Start Date End Date Sebastian Griffiths MD PCP - General 10/24/[address] [place] [phone] documented as of this encounter
--- OUTSIDE RECORDS SUMMARY | 2021-12-09 21:25 | XMS_ITS | Encounter Summary ---
:1950 Author Organization [facility] Address [address] [place] [address] Care Team Providers Name Role Phone Sebastian Griffiths MD Primary Care Provider Reason for Visit Reason Onset Date Comments Med Refill 01/22/2021 Encounter Details Date Type Department Care Team Description 01/22/2021 Refill SE Family Med Sebastian Griffiths MD Encounter for smoking [address] [facility] [address] [place] [address] [place] [address] [phone] (Wo rk) Social History Tobacco Use Types [...] or relatives? How often do you attend catholic or Never 2020 jewish services? Do you belong to any clubs or No 05/18/2020 organizations such as catholic groups, unions, fraternal or athletic groups, or [...] Telephone Encounter - Tamie Shore MA - 01/22/2021 2:13 PM CDT Last visit in provider department: 12/03/2020 with Iwona Rivera, ROMAN, STRIKER OUT, CLAM GROWER Last visit requested medication was discussed: 10/05/2020 Upcoming appointment with provider: 01/25/2021 Last Rx: nicotine (NICODERM CQ) 21 MG/24HR, # Requested Prescriptions Pending Prescriptions Disp Refills ??? nicotine (NICODERM CQ) 21 MG/24HR 30 patch 0 Sig: Place 1 patch on the skin 1 (one) time each day at the same time Vitals: BP Readings from Last 2 Encounters: 12/03/20 (!) 138/92 10/29/20 140/80 Please advise, thank you. documented in this encounter Plan of Treatment Upcoming Encounters Date Type Specialty Care Team Description 01/18/2022 Telemedicine Family Medicine Sebastian Griffiths MD [address] [place] [phone] (Wo rk) documented as of this encounter Visit Diagnoses Diagnosis Encounter for smoking cessation counseli erick documented in this encounter Care Teams Dispatcher Motor Vehicle Relationship Specialty Start Date End Date Sebastian Griffiths MD PCP - General 10/24/[address] [place] [phone] documented as of this encounter
--- OUTSIDE RECORDS SUMMARY | 2021-12-09 21:25 | XMS_ITS | Encounter Summary ---
:1950 Author Organization [facility] Address [address] [place] [address] Care Team Providers Name Role Phone Sebastian Griffiths MD Primary Care Provider Reason for Visit Reason Comments Med Refill Encounter Details Date Type Department Care Team Description 12/18/2020 Refill SE Family Med Sebastian Griffiths MD Chronic pain syndrome [address] [facility] [address] [place] [address] [place] [address] [phone] (Wo rk) Social History Tobacco Use Types [...] or relatives? How often do you attend scientologist or Never 2020 sabianist services? Do you belong to any clubs or No 05/18/2020 organizations such as scientologist groups, unions, fraternal or athletic groups, or [...] Telephone Encounter - Ana Coles LPN - 12/18/2020 10:43 AM CDT Pharmacy should have current prescription on file from: 12/14/2020 #100 with 12 refills documented in this encounter Plan of Treatment Upcoming Encounters Date Type Specialty Care Team Description 01/18/2022 Telemedicine Family Medicine Sebastian Griffiths MD [address] [place], [place] [address] (Wo rk) documented as of this encounter Visit Diagnoses Diagnosis Chronic pain syndrome documented in this encounter Care Teams Security Incident Response Engineer Relationship Specialty Start Date End Date Sebastian Griffiths MD PCP - General 10/24/17 [address] [place], [place] [phone] documented as of this encounter
--- OUTSIDE RECORDS SUMMARY | 2021-12-09 21:25 | XMS_ITS | Encounter Summary ---
:1950 Author Organization [facility] Address [address] [place] [address] Care Team Providers Name Role Phone Sebastian Griffiths MD Primary Care Provider Reason for Visit Reason Comments Med Refill Encounter Details Date Type Department Care Team Description 11/05/2020 Refill SE Family Med Sebastian Griffiths MD Generalized anxiety [address] [facility] [address] [place] [address] [place] [address] [phone] (Wo rk) Social History Tobacco Use Types [...] or relatives? How often do you attend temple or Never 2020 christianity services? Do you belong to any clubs or No 05/18/2020 organizations such as temple groups, unions, fraternal or athletic groups, or [...] Telephone Encounter - Jayshree Rodriguez MA - 11/10/2020 10:21 AM CDT Last visit in provider department: 10/05/20 Last visit requested medication was discussed: 05/18/20 Upcoming appointment with provider: 11/16/2020 Last Rx: 09/22/20, #90, 0 refills Requested Prescriptions Pending Prescriptions Disp Refills ??? LORazepam (ATIVAN) 0.5 MG tablet [Pharmacy Med Name: LORAZEPAM 0.5MG TABLET] 90 tablet Sig: TAKE 1 TABLET BY MOUTH MOUTH EVERY 8 HOURS IF NEEDED FOR ANXIETY 03/20/20PHQ-9: 10 / SUMI-7: 7 Vitals: BP Readings from Last 2 Encounters: 10/29/20 140/80 10/05/20 136/84 documented in this encounter Plan of Treatment Upcoming Encounters Date Type Specialty Care Team Description 01/18/2022 Telemedicine Family Medicine Sebastian Griffiths MD [address] [place] [phone] (Wo rk) documented as of this encounter Visit Diagnoses Diagnosis Generalized anxiety disorder documented in this encounter Care Teams Continuous Mining Machine Company Miner Relationship Specialty Start Date End Date Sebastian Griffiths MD PCP - General 10/24/[address] [place] [phone] documented as of this encounter
--- OUTSIDE RECORDS SUMMARY | 2021-12-09 21:25 | XMS_ITS | Encounter Summary ---
:1950 Author Organization [facility] Address [address] [place] [address] Care Team Providers Name Role Phone Sebastian Griffiths MD Primary Care Provider Encounter Details Date Type Department Care Team Description 01/26/2021 Telephone NW Family Medicine Sebastian Griffiths MD [address] [facility] [address] [place] [address] [place] [address] [phone] (Wo rk) Social History Tobacco Use Types [...] do you attend episcopalian or Never 2020 latter-day services? Do you [...] with No / Unsure 01/25/2021 2:38 PM RADIATION ONCOLOGY NURSE someone who was confirmed or suspected to have Coronavirus / COVID-19? documented as of this encounter Miscellaneous Notes Telephone Encounter - Sebastian Griffiths MD - 01/27/2021 4:50 PM CST Noted, thanks. ATION ONCOLOGY NURSE Telephone Encounter - Sun Gloria RN - 01/27/2021 11:40 AM CST Patient called back and was given provider's message about keeping the Oxycodone at TID instead of QID. She verbalized understanding. She then asked about the testing for going down her throat. Advised PCP did referral to ENT so tried transferring patient to them for scheduling (they have tried calling her) but she hung up before call was connected. ATION ONCOLOGY NURSE Telephone Encounter - Sun Gloria RN - 01/27/2021 11:14 AM CST Tried calling patient. No answer on her phone and unable to LM as VM box is not set up. ATION ONCOLOGY NURSE Telephone Encounter - Tamie Stewart - 01/27/2021 10:01 AM CST Melissa calling from [facility] gave her info below from Ron however please have an RNcall pt as well form here. Geovanna also states pt takes Oxy, Lorazepam, and Zopidem as often as she can does PCP want to keep it that way or should they try to get her on a time schedule. ATION ONCOLOGY NURSE Telephone Encounter - Sebastian Griffiths MD - 01/26/2021 5:03 PM CST Yes we did discuss it at her appointment and I decided that I cannot increase her oxycodone to 4 times a day. I would like her to continue at 3 times a day. ATION ONCOLOGY NURSE Telephone Encounter - Annabella Marroquin RN - 01/26/2021 3:39 PM CST Patient calls and wants her Oxycodone increased to every six hours. She states she discussed this at her appointment yesterday with her provider. Please advise. Thank you. ATION ONCOLOGY NURSE documented in this encounter Plan of Treatment Upcoming Encounters Date Type Specialty Care Team Description 01/18/2022 Telemedicine Family Medicine Sebastian Griffiths MD [address] [place], [place] [address] (Wo rk) documented as of this encounter Visit Diagnoses Not on filedocumented in this encounter Care Teams Mall Plant Caretaker Relationship Specialty Start Date End Date Sebastian Griffiths MD PCP - General 10/24/[address] [place] [phone] documented as of this encounter
--- OUTSIDE RECORDS SUMMARY | 2021-12-09 21:25 | XMS_ITS | Encounter Summary ---
:1950 Author Organization [facility] Address [address] [place] [address] Care Team Providers Name Role Phone Sebastian Griffiths MD Primary Care Provider Reason for Visit Reason Onset Date Comments Med Refill 12/11/2020 Encounter Details Date Type Department Care Team Description 12/11/2020 Refill SE Family Med Sebastian Griffiths MD Type II diabetes mellitus with periphera l circulatory disorder (HCC); [address] Uncontrolled type 2 diabetes mellitus wi th hyperglycemia (HCC) [place] [address] [place] [address] [phone] (Wo rk) Social History Tobacco Use Types [...] do you attend mandaen or Never 2020 druze services? Do you [...] this encounter Miscellaneous Notes Telephone Encounter - Vicenta Miranda - 12/14/2020 12:50 PM CDT Scheduled. Telephone Encounter - Vicenta Mery Miranda - 12/11/2020 2:08 PM CDT No vm, no mychart. Will try again later. Telephone Encounter - Yanna Cheng LPN - 12/11/2020 1:58 PM CDT Patient will be due for follow up 01/02/21. Please call and assist in scheduling. Telephone Encounter - Tamie Shore MA - 12/11/2020 11:59 AM CDT Last visit in provider department: 12/03/2020 with Iwona Rivera, ROMAN, EDUCATIONAL INSTITUTION PRESIDENT, APPRENTICE PHOTOGRAPHER Last visit requested medication was discussed: 10/05/2020 Upcoming appointment with provider: None Last Rx: insulin glargine (LANTUS) 100 UNIT/ML injection, #15 mL x 5 refills 07/08/2020 Requested Prescriptions Pending Prescriptions Disp Refills ??? insulin glargine (LANTUS) 100 UNIT/ML injection 15 mL 5 Sig: Inject 30 units SQ once in the evening Labs: Component Latest Ref Rng & Units 06/23/2020 Hemoglobin A1C 4.0 - 5.6 % A1C 9.1 (H) No pending lab found. Vitals: BP Readings from Last 2 Encounters: 12/03/20 (!) 138/92 10/29/20 140/80 Patient is due for an appointment. PSR/Nurse: Please contact patient to assist with scheduling. documented in this encounter Plan of Treatment Upcoming Encounters Date Type Specialty Care Team Description 01/18/2022 Telemedicine Family Medicine Sebastian Griffiths MD [address] [place] [address] [phone] (Wo rk) documented as of this encounter Visit Diagnoses Diagnosis Type II diabetes mellitus with periphera l circulatory disorder (HCC) Type II or unspecified type diabetes giuseppe litus with peripheral circulatory disorders, not stated as uncontrolled Uncontrolled type 2 diabetes mellitus wi th hyperglycemia (HCC) documented in this encounter Care Teams Traffic Signal Technician Relationship Specialty Start Date End Date Sebastian Griffiths MD PCP - General 10/24/17 [address] [place], [place] [address] documented as of this encounter
--- OUTSIDE RECORDS SUMMARY | 2021-12-09 21:25 | XMS_ITS | Encounter Summary ---
:1950 Author Organization [facility] Address [address] [place] [address] Care Team Providers Name Role Phone Sebastian Griffiths MD Primary Care Provider Reason for Visit Reason Onset Date Comments Med Refill 12/11/2020 Encounter Details Date Type Department Care Team Description 12/11/2020 Telephone SE Family Med Sebastian Griffiths MD Med Refill [address] [facility] [address] [place] [address] [place] [address] [phone] (Wo rk) Social History Tobacco Use Types [...] or relatives? How often do you attend yazidism or Never 2020 mosque services? Do you belong to any clubs or No 05/18/2020 organizations such as yazidism groups, unions, fraternal or athletic groups, or [...] this encounter Miscellaneous Notes Telephone Encounter - Rosio Castañeda - 12/21/2020 4:32 PM CDT DME for depends was faxed to [facility] in [place] to fax # [phone]. Order# [id number] Geovanna at [facility] was notified. Telephone Encounter - Sebastian Griffiths MD - 12/15/2020 5:16 PM CDT There was a form for these that I filled out and placed on my desk yesterday. Thanks. Telephone Encounter - Annabella Marroquin RN - 12/15/2020 11:29 AM CDT Geovanna from [facility] in [place] calls and states patient is needing depends order filled to [facility] on [place]. Would like a call back when this is completed. Thank you. Call back # Telephone Encounter - Mili Rivera MA - 12/11/2020 1:38 PM CDT Please check on previous note, to make sure fax was received, no previous orders for Depends, unableto pend Telephone Encounter - Cole Vaughan - 12/11/2020 12:21 PM CDT Nurse from [facility] [place] called. She said she faxed a request earlier this week and had not heard back yet. Patient is needing an order for Depends sent to [facility] in [place]. documented in this encounter Plan of Treatment Upcoming Encounters Date Type Specialty Care Team Description 01/18/2022 Telemedicine Family Medicine Sebastian Girffiths MD [address] [place] [address] 90 (Wo rk) documented as of this encounter Visit Diagnoses Diagnosis Irritable bowel syndrome with diarrhea - Primary Irritable bowel syndrome documented in this encounter Care Teams Supervisor Pit And Auxiliaries Relationship Specialty Start Date End Date Sebastian Griffiths MD PCP - General 10/24/[address] [place] [phone] documented as of this encounter
--- OUTSIDE RECORDS SUMMARY | 2021-12-09 21:25 | XMS_ITS | Encounter Summary ---
:1950 Author Organization [facility] Address [address] [place] [address] Care Team Providers Name Role Phone Sebastian Griffiths MD Primary Care Provider Encounter Details Date Type Department Care Team Description 12/01/2020 Orders Only SE Family Med Sebastian Griffiths, Bee sting allergy [address] [facility] (Primary Dx) [place] [address] [address] [phone] [place] [address] Social History Tobacco Use Types [...] do you attend nondenominational or Never 2020 mandaeism services? Do you [...] 01/18/2022 Telemedicine Family Medicine Sebastian Griffiths MD [address] [place] [phone] (Wo rk) documented as of this encounter Visit Diagnoses Diagnosis Bee sting allergy - Primary documented in this encounter Care Teams Environmental Advisor Relationship Specialty Start Date End Date Sebastian Griffiths MD PCP - General 10/24/[address] [place] [phone] documented as of this encounter
--- OUTSIDE RECORDS SUMMARY | 2021-12-09 21:25 | XMS_ITS | Encounter Summary ---
:[address] [facility] Address [address] [place] [address] Care Team Providers Name Role Phone Sebastian Griffiths MD Primary Care Provider Reason for Visit Reason Onset Date Comments Med Refill 12/14/2020 Encounter Details Date Type Department Care Team Description 12/14/2020 Refill SE Family Med Sebastian Griffiths, Encounter for smoking cessat ion counseling; [address] [facility] Major depressive disorder, recurrent epi sode, moderate (HCC); [place] [address] Controlled type 2 diabetes m ellitus without complication, without long-term current use of insulin ([facility]); [phone] SE Chronic pain syndrome; [place], [place] Hypertension, essential, benign; [address] Degenerative disc disease, lumbar; [phone] Uncontrolled ty pe 2 diabetes mellitus with hyperglycemia ([facility]); (Work) Gastroesophageal reflux disease without esophagitis Social History Tobacco Use Types Packs/Day Years [...] do you attend uatsdin or Never 2020 anabaptism services? Do you belong to any clubs [...] encounter Miscellaneous Notes Telephone Encounter - Catherine HillsBeePerico, BALL MILL MIXER - 12/14/2020 11:19 AM CDT Images from the original note were not included. Change in Pharmacy to [facility] in [place] last rxs went to [facility] in [place] . [facility] is requesting all meds have new rxs on file for them added 8 meds to this request Labs Basic Metabolic Panel Order: [id number] (suggestion) Information displayed in this report will not trend and will not trigger automated decision support. Component Ref Range & Units 11/24/20 0609 Potassium, S 3.6 - 5.2 mmol/L 4 Sodium, S 135 - 145 mmol/L 140 Chloride, S 98 - 107 mmol/L 98 Bicarbonate, S 22 - 29 mmol/L 31High Anion Gap 7 - 15 11 BUN (Blood Urea Nitrogen), S 6 - 21 mg/dL 13 Creatinine, S 0.59 - 1.04 mg/dL 0.64 eGFR-Non Black/ >=60 mL/min/BSA >90 Comment: ----ADDITIONAL INFORMATION---- Estimated GFR calculated using the 2009 CKD_EPI creatinine equation. eGFR-Black/ >=60 mL/min/BSA >90 Comment: ----ADDITIONAL INFORMATION---- Estimated GFR calculated using the 2009 CKD_EPI creatinine equation. Calcium, Total, S 8.8 - 10.2 mg/dL 9.8 Glucose, S 70 - 140 mg/dL 174High Resulting Agency DTL Specimen Collected: 11/24/20 06:09 Last Resulted: 11/24/20 09:40 Received From: [facility] Hemoglobin A1c Order: [id number] (suggestion) Information displayed in this report will not trend and will not trigger automated decision support. Component Ref Range & Units 11/15/20 0803 Hemoglobin A1c, B 4.0 - 5.6 % 9.3High Comment: Hemoglobin A1c values greater than or equal to 6.5 percent are diagnostic for diabetes mellitus. ??Diagnosis should be confirmed by repeat testing. ??In diabetic patients, HbA1c goals should be discussed with healthcare provider. Resulting Agency DTL Specimen Collected: 11/15/20 08:03 Last Resulted: 11/15/20 09:03 Received From: [facility] Renal Function Panel Order: [id number] (suggestion) Information displayed in this report will not trend and will not trigger automated decision support. Component Ref Range & Units 11/19/20 0734 [...] 10.2 Glucose, S 70 - 140 mg/dL 145High Albumin, S 3.5 - 5.0 g/dL 3.8 Phosphorus (Inorganic), S 2.5 - 4.5 mg/dL 4.1 Resulting Agency DTL Specimen Collected: 11/19/20 07:34 Last Resulted: 11/19/20 09:07 Received From: [facility] Telephone Encounter - Tamie Shore MA - 12/14/2020 11:01 AM CDT Last visit in provider department: 12/03/2020 with Iwona Rivera, ROMAN, NUCLEAR CONTROL OPERATOR, PHOTORESIST CONTACT PRINTER Last visit requested medication was discussed: 10/05/2020 Upcoming appointment with provider: None Last Rx: nicotine (NICODERM CQ) 21 MG/24HR, #30 patches x 1 refill 10/05/2020 Requested Prescriptions Pending Prescriptions Disp Refills ??? nicotine (NICODERM CQ) 21 MG/24HR 30 patch 1 Sig: Place 1 patch on the skin [...] Telemedicine Family Medicine Sebastian Griffiths MD [address] [place] [phone] (Wo rk) documented as of this encounter Visit Diagnoses Diagnosis Encounter for smoking cessation counseli ng Major depressive disorder, recurrent epi sode, moderate (HCC) Major depressive disorder, recurrent epi sode, moderate Controlled type 2 diabetes mellitus with out complication, without long-term current use of insulin (HCC) Chronic pain syndrome Hypertension, essential, benign Essential hypertension, benign Degenerative disc disease, lumbar Uncontrolled type 2 diabetes mellitus wi th hyperglycemia (HCC) Gastroesophageal reflux disease without esophagitis Esophageal reflux documented in this encounter Care Teams College Director Relationship Specialty Start Date End Date Sebastian Griffiths MD PCP - General 10/24/[address] [place] [address] [phone] documented as of this encounter
--- OUTSIDE RECORDS SUMMARY | 2021-12-09 21:25 | XMS_ITS | Encounter Summary ---
:1950 Author Organization [facility] Address [address] [place] [address] Care Team Providers Name Role Phone Rocío Ralph MD Primary Care Provider Reason for Visit Reason Onset Date Comments Med Refill 01/08/2021 Med Refill 01/18/2021 Encounter Details Date Type Department Care Team Description 01/08/2021 Telephone Family Med Rocío Ralph, Med Refill; Med Refill [address] [facility] [place] [address] [address] [facility] [phone] [place], [place] [address] Social History Tobacco Use Types Packs/Day Years [...] do you attend confucianism or Never 2020 scientologist services? Do you [...] Addendum Note - Rocío Ralph MD - 01/18/2021 11:01 PM CDT Addended by: ROCÍO RALPH on: 01/18/2021 11:01 PM Modules accepted: Orders Telephone Encounter - Elie Coley - 01/18/2021 12:39 PM CDT Pt is all out of this medication for about 1 week now. Would like refill saeid. Please advise. Telephone Encounter - Catherine Frank LPN - 01/08/2021 11:33 AM CDT Last visit in provider department: 12/03/2020 Last visit requested medication was discussed:06/23/20 Upcoming appointment with provider: 01/25/2021 Last Rx: Ativan 12/01/20 #90 no refills Glycolax 11/25/20 #510 received from [facility] Requested Prescriptions Pending Prescriptions Disp Refills ??? LORazepam (ATIVAN) 0.5 MG tablet 90 tablet 0 Sig: TAKE 1 TABLET BY MOUTH MOUTH EVERY 8 HOURS IF NEEDED FOR ANXIETY ??? polyethylene glycol (GLYCOLAX) 17 GM/SCOOP powder 578 g 11 Sig: Take 17 g by mouth 1 (one) time each day 10/05/20 PHQ9-0 No GAD7 documented Vitals: BP Readings from Last 2 Encounters: 12/03/20 (!) 138/92 10/29/20 140/80 documented in this encounter Plan of Treatment Upcoming Encounters Date Type Specialty Care Team Description 01/18/2022 Telemedicine Family Medicine Rocío Ralph MD [address] [place] [phone] (Wo rk) documented as of this encounter Visit Diagnoses Diagnosis Chronic constipation - Primary Unspecified constipation Generalized anxiety disorder documented in this encounter Care Teams Athletic Scout Relationship Specialty Start Date End Date Rocío Ralph MD PCP - General 10/24/[address] [place] [phone] documented as of this encounter
--- OUTSIDE RECORDS SUMMARY | 2021-12-09 21:25 | XMS_ITS | Encounter Summary ---
:1950 Author Organization [facility] Address [address] [place] [address] Care Team Providers Name Role Phone Sebastian Griffiths MD Primary Care Provider Reason for Visit Reason Onset Date Comments Med Refill 02/22/2021 Encounter Details Date Type Department Care Team Description 02/22/2021 Refill SE Family Med Sebastian Griffiths MD Generalized anxiety disorder; [address] [facility] [address] [place] [address] [place] [address] [phone] (Wo rk) Social History Tobacco Use Types [...] do you attend anglican or Never 2020 church services? Do you [...] with No / Unsure 01/25/2021 2:38 PM MAINTENANCE PARTS TECHNICIAN someone who was confirmed or suspected to have Coronavirus / COVID-19? documented as of this encounter Miscellaneous Notes Telephone Encounter - Catherine Frank LPN - 02/22/2021 7:39 AM MAINTENANCE PARTS TECHNICIAN Last visit in provider department: 01/25/2021 Last visit requested medication was discussed:01/25/21 Upcoming appointment with provider: 03/02/2021 Last Rx: LORazepam (ATIVAN) 0.5 MG tablet 01/18/21 #90 no refills oxyCODONE (ROXICODONE) 5 MG immediate release tablet 01/21/21 #180 Requested Prescriptions Pending Prescriptions Disp Refills ??? LORazepam (ATIVAN) 0.5 MG tablet 90 tablet 0 Sig: TAKE 1 TABLET BY MOUTH MOUTH EVERY 8 HOURS IF NEEDED FOR ANXIETY ??? oxyCODONE (ROXICODONE) 5 MG immediate release tablet 180 tablet 0 Sig: Take 2 tablets (10 mg total) by mouth every 8 (eight) hours if needed for moderate pain 10/05/20 PHQ9-0 No SUMI documented 01/25/21 CSA Vitals: BP Readings from Last 2 Encounters: 02/19/21 140/80 01/25/21 138/80 TENANCE PARTS TECHNICIAN documented in this encounter Plan of Treatment Upcoming Encounters Date Type Specialty Care Team Description 01/18/2022 Telemedicine Family Medicine Sebastian Griffiths MD [address] [place] [phone] (Wo rk) documented as of this encounter Visit Diagnoses Diagnosis Generalized anxiety disorder Chronic pain syndrome documented in this encounter Care Teams Catering Barista Relationship Specialty Start Date End Date Sebastian Griffiths MD PCP - General 10/24/[address] [place] [address] [phone] documented as of this encounter
--- OUTSIDE RECORDS SUMMARY | 2021-12-09 21:25 | XMS_ITS | Encounter Summary ---
:1950 Author Organization [facility] Address [address] [place] [address] Care Team Providers Name Role Phone Sebastian Griffiths MD Primary Care Provider Encounter Details Date Type Department Care Team Description 01/25/2021 Lab SE Lab Uncontrolled type 2 diabetes [address] [facility] mellitus [place] [address] ([facility]) [phone] Social History Tobacco Use Types Packs/Day Years [...] do you attend episcopalian or Never 2020 caodaism services? Do you [...] with No / Unsure 01/25/2021 2:38 PM QUILL FIXER someone who was confirmed or suspected to have Coronavirus / COVID-19? documented as of this encounter Plan of Treatment Upcoming Encounters Date Type Specialty Care Team Description 01/18/2022 Telemedicine Family Medicine Sebastian Griffiths MD [address] [place] [address] [phone] (Wo rk) documented as of this encounter Procedures Procedure Name Priority Date/Time Associated Diagnosis Comme nts HEMOGLOBIN A1C Routine 01/25/2021 3:51 PM Uncontrolled type 2 Results for this QUILL FIXER diabetes mellitus with proce dure are in hyperglycemia (HCC) the resu lts section. MICROALBUMIN/CREATI Routine 01/25/2021 3:50 PM Uncontrolled ty pe 2 Results for this NINE RATIO QUILL FIXER diabetes mellitus with proce dure are in hyperglycemia (HCC) the resu lts section. documented in this encounter Results (ABNORMAL) Hemoglobin A1c (01/25/2021 3:51 PM QUILL FIXER) Analysis Performed At [facility] Signature Hemoglobin A1C 9.0 (H) 4.0 - 5.6 01/25/2021 [place] % A1C 7:11 PM [facility] Comment: Reference Range 4.0-5.6% is [...] (Source) Location / / Volume Laterality Blood 01/25/2021 3:51 PM 4:45 QUILL FIXER PM QUILL FIXER Sebastian Griffiths MD LAB BLOOD ORDERABLES Performing Organization Address City/State/ZIP Code Phon e Number [facility] [address] [place] [address] (ABNORMAL) Microalbumin/Creatinine Ratio (01/25/2021 3:50 PM QUILL FIXER) Analysis Performed At [facility] Signature Microalbumin,m 22.3 (H) 0.0 - 16.6 01/25/2021 [place] g/day mg/L 7:07 PM [facility] Comment: . Creatinine, Urine 23 mg/dL 01/25/2021 7:07 PM [facility] Comment: No established reference range. Microalb/Creat Ratio 97 (H) 0 - 24 mg/g 01/25/2021 7:07 P [facility] Specimen Anatomical Collection Method Collection Time Receive d Time (Source) Location / / Volume Laterality Urine 01/25/2021 3:50 PM 4:45 QUILL FIXER PM QUILL FIXER Sebastian Griffiths MD LAB URINE ORDERABLES Performing Organization Address City/State/ZIP Code Phon e Number [facility] [address] [place] [address] documented in this encounter Visit Diagnoses Diagnosis Uncontrolled type 2 diabetes mellitus wi th hyperglycemia (HCC) documented in this encounter Care Teams Top Coater Relationship Specialty Start Date End Date Sebastian Griffiths MD PCP - General 10/24/[address] [place] [address] documented as of this encounter
--- OUTSIDE RECORDS SUMMARY | 2021-12-09 21:25 | XMS_ITS | Encounter Summary ---
:1950 Author Organization [facility] Address [address] [place] [address] Care Team Providers Name Role Phone Sebastian Griffiths MD Primary Care Provider Reason for Visit Reason Onset Date Comments Med Refill 12/29/2020 Encounter Details Date Type Department Care Team Description 12/29/2020 Refill SE Family Med Sebastian Griffiths MD Uncontrolled type 2 [address] [facility] [address] [place] [address] [place] [address] hyperglycemia (HCC) [phone] (Wo rk) Social History Tobacco Use Types [...] or relatives? How often do you attend jew or Never 2020 shinto services? Do you belong to any clubs or No 05/18/2020 organizations such as jew groups, unions, fraternal or athletic groups, or [...] Encounter - Mandi Kwon MA - 12/29/2020 2:27 PM CDT Last visit in provider department: 12/03/2020 Iwona Rivera DNP, APRN ROB Last visit requested medication was discussed: 09/17/2020 Upcoming appointment with provider: 01/25/2021 Last Rx: Novofine 30G AutoCV Pen Needle #30 +11 refills 07/08/2020 For Insurance needs new prescription after 6 months Requested Prescriptions Pending Prescriptions Disp Refills ??? Insulin Pen Needle (DropSafe Safety Pen [place]) 31G X 8 MM misc 30 each 11 Sig: Use for taking insulin SQ once daily Labs: Component Ref Range & Units 11/15/20 0803 Hemoglobin A1c, B 4.0 - 5.6 % 9.3High Vitals: BP Readings from Last 2 Encounters: 12/03/20 (!) 138/92 10/29/20 140/80 documented in this encounter Plan of Treatment Upcoming Encounters Date Type Specialty Care Team Description 01/18/2022 Telemedicine Family Medicine Sebastian Griffiths MD [address] [place], [place] [phone] (Wo rk) documented as of this encounter Visit Diagnoses Diagnosis Uncontrolled type 2 diabetes mellitus wi th hyperglycemia (HCC) documented in this encounter Care Teams Supervisor Policy Change Clerks Relationship Specialty Start Date End Date Sebastian Griffiths MD PCP - General 10/24/17 [address] [place], [place] [phone] documented as of this encounter
--- OUTSIDE RECORDS SUMMARY | 2021-12-09 21:25 | XMS_ITS | Encounter Summary ---
:1950 Author Organization [facility] Address [address] [place] [address] Care Team Providers Name Role Phone Sebastian Griffiths MD Primary Care Provider Encounter Details Date Type Department Care Team Description 02/26/2021 Orders Only [facility] Sebastian Griffiths, Chronic pain syndrome; [address] [facility] [place] [address] [address] [phone] [place] [address] Social History Tobacco Use Types [...] or relatives? How often do you attend advent or Never 2020 orthodox services? Do you belong to any clubs or No 05/18/2020 organizations such as advent groups, unions, fraternal or athletic groups, or [...] 01/18/2022 Telemedicine Family Medicine Sebastian Griffiths MD [address] [place] [phone] (Wo rk) documented as of this encounter Visit Diagnoses Diagnosis Chronic pain syndrome Generalized anxiety disorder documented in this encounter Care Teams Network Applications Specialist Relationship Specialty Start Date End Date Sebastian Griffiths MD PCP - General 10/24/[address] [place] [phone] documented as of this encounter
--- OUTSIDE RECORDS SUMMARY | 2021-12-09 21:25 | XMS_ITS | Encounter Summary ---
:[address] [facility] Address [address] [place] [address] Care Team Providers Name Role Phone Sebastian Griffiths MD Primary Care Provider Reason for Visit Reason Onset Date Comments med refill 10/30/2020 Encounter Details Date Type Department Care Team Description 10/30/2020 Telephone SE Family Med Sebastian Griffiths MD med refill [address] [facility] [address] [place] [address] [place] [address] [phone] (Wo rk) Social History Tobacco Use Types [...] do you attend sabianism or Never 2020 yazidism services? Do you belong to any clubs [...] Telephone Encounter - Sebastian Griffiths MD - 10/30/2020 3:25 PM CDT Prescription sent in Telephone Encounter - Cole Vaughan - 10/30/2020 3:16 PM CDT Patient called to request the refill now. Telephone Encounter - Cole Vaughan - 10/30/2020 3:02 PM CDT Patient's staff called again. They said that they had been giving patient oxy every 6 hours, but they failed to notice the max of 3/day, so patient has been getting 4 daily. That is why she is out early. They are requesting this refill be sent to the pharmacy so that a customer greeter can deliver it to them in time. Telephone Encounter - Yanna Cheng LPN - 10/30/2020 2:05 PM CDT Patient staff call again, stating that patient is in need of this today. They are requesting to have the 11/05/20 rx filled early. Please advise as POD Telephone Encounter - Tamie Stewart - 10/30/2020 1:37 PM CDT Pt calling stating she is out of Oxy and needs filled today documented in this encounter Plan of Treatment Upcoming Encounters Date Type Specialty Care Team Description 01/18/2022 Telemedicine Family Medicine Sebastian Griffiths MD [address] [place], [place] [address] (Wo rk) documented as of this encounter Visit Diagnoses Diagnosis Chronic pain syndrome documented in this encounter Care Teams Lighting Director Relationship Specialty Start Date End Date Sebastian Griffiths MD PCP - General 10/24/17 [address] [place] [address] documented as of this encounter
--- OUTSIDE RECORDS SUMMARY | 2021-12-09 21:25 | XMS_ITS | Encounter Summary ---
:1950 Author Organization [facility] Address [address] [place] [address] Care Team Providers Name Role Phone Sebastian Griffiths MD Primary Care Provider Encounter Details Date Type Department Care Team Description 01/26/2021 Telephone SE Ear Nose Throat Tyrone Lovett, INSULATION BLANKET MAKER, [address] [place] [address] 210 [facility] [phone] [place], [place] [phone] (Wo rk) Social History Tobacco Use Types [...] do you attend restoration or Never 2020 adventist services? Do you belong to any clubs [...] with No / Unsure 01/25/2021 2:38 PM HARDWOOD FLOOR INSTALLATION HELPER someone who was confirmed or suspected to have Coronavirus / COVID-19? documented as of this encounter Miscellaneous Notes Telephone Encounter - Sherrell Farooq - 01/26/2021 8:40 AM CST Could not leave a message. WOOD FLOOR INSTALLATION HELPER documented in this encounter Plan of Treatment Upcoming Encounters Date Type Specialty Care Team Description 01/18/2022 Telemedicine Family Medicine Sebastian Griffiths MD [address] [place], [place] [address] (Wo rk) documented as of this encounter Visit Diagnoses Not on filedocumented in this encounter Care Teams Wire Rope Sling Maker Relationship Specialty Start Date End Date Sebastian Griffiths MD PCP - General 10/24/[address] [place] [phone] documented as of this encounter
--- OUTSIDE RECORDS SUMMARY | 2021-12-09 21:25 | XMS_ITS | Encounter Summary ---
:1950 Author Organization [facility] Address [address] [place] [address] Care Team Providers Name Role Phone Sebastian Griffiths MD Primary Care Provider Reason for Visit Reason Comments Follow-up ED 11/06 Encounter Details Date Type Department Care Team Description 12/03/2020 Office Visit [facility] Iwona Rivera, Vitamin D deficiency (Primar y Dx); [address] [facility] DNP, PIG FARM MANAGER, SHIPPING ORDER CLERK Allergic rhinitis, unspecifi ed seasonality, [place] [address] Social History Tobacco Use Types Packs/Day Years [...] do you attend evangelical or Never 2020 mormonism services? Do you [...] Sign Reading Time Taken Comments Blood Pressure 138/92 12/03/2020 9:05 AM CDT Pulse 102 12/03/2020 9:05 AM CDT Temperature 36.6 ??C (97.8 ??F) 12/03/2020 9:05 AM CDT Respiratory Rate 18 12/03/2020 9:05 AM CDT Oxygen Saturation 95% 12/03/2020 9:05 AM CDT Inhaled Oxygen Concentration - - Weight 107 kg (236 lb 3.2 oz) 12/03/2020 9:05 AM CDT Height - - Body Mass Index 40.47 10/29/2020 1:25 PM CDT documented in this encounter Progress Notes Iwona Rivera, DNP, PIG FARM MANAGER, SHIPPING ORDER CLERK - 12/03/2020 9:00 AM CDT Estab Patient Visit Subjective Patient ID: Rena Fan is a 70 y.o. female. Chief Complaint Patient presents with ??? Follow-up ED 11/06 The patient is a 70-year-old female who presents for ED follow-up. She presented to the ED on 11/06 for acute on chronic back pain and chest pain. ECG was obtained and noted sinus tachycardia (HR 100) with PVCs along with non specific T wave abnormalities. Troponins were flat at 6 and BNP was <20. She had a Ct of her back 3 days prior which showed degenerative disc disease at L4, mild compression deformity of the T5 vertebral body felt to be acute, and degenerative thoracolumbar spondylosis. For her back pain she was given her chronic dosing of oxycodone in the ED and admitted to the Medicine 6 service as she was not able to return to her previous assisted living center. She was discharged on [facility] on 11/26/20. She states she continues to have back and hip pain. Her oxycodone wasrefilled by her PCP on 11/30/20. She reports that she is sleeping and eating well and denies headaches, chest pain, or shortness of breath. She is working on smoking cessation and is currently down to 4cigarettes per day. She is scheduled to see her PCP in 1 month. Denies any other concerns at this time. The following portions of the patient's chart were reviewed in this encounter and updated as appropriate: Tobacco Allergies Meds Problems Med Hx Surg Hx Fam Hx Review of Systems Constitutional: Negative. Eyes: Negative. Respiratory: Negative. Cardiovascular: Negative. Gastrointestinal: Negative. Genitourinary: Negative. Negative for dysuria. Musculoskeletal: Positive for arthralgias, back pain and gait problem. Neurological: Negative for headaches. All other systems reviewed and are negative. Objective Vitals: 12/03/20 0905 BP: (!) 138/92 Pulse: 102 Resp: 18 Temp: 36.6 ??C (97.8 ??F) SpO2: 95% Physical Exam Vitals (Pt smoked right before appt.) and nursing note reviewed. Constitutional: Appearance: She is obese. HENT: Head: Normocephalic. Eyes: Extraocular Movements: Extraocular movements intact. Conjunctiva/sclera: Conjunctivae normal. Cardiovascular: Rate and Rhythm: Regular rhythm. Tachycardia present. Heart sounds: Normal heart sounds. Pulmonary: Effort: Pulmonary effort is normal. Breath sounds: Normal breath sounds. Skin: General: Skin is warm and dry. Neurological: Mental Status: She is alert. Mental status is at baseline. Psychiatric: Attention and Perception: Attention and perception normal. Mood and Affect: Affect is blunt and flat. Speech: Speech normal. Behavior: Behavior is slowed. Thought Content: Thought content normal. Assessment/Plan Diagnoses and all orders for this visit: Vitamin D deficiency - cholecalciferol (VITAMIN D-3) 25 MCG (1000 UT) tablet; Take 1 tablet (1,000 Units total) by mouth 1 (one) time each day Allergic rhinitis, unspecified seasonality, unspecified trigger - Cetirizine HCl 10 MG capsule; Take 10 mg by mouth 1 (one) time each day if needed (aLLERGIES) Follow up with PCP in 1 month documented in this encounter Plan of Treatment Upcoming Encounters Date Type Specialty Care Team Description 01/18/2022 Telemedicine Family Medicine Sebastian Griffiths MD [address] [place] [phone] (Wo rk) documented as of this encounter Visit Diagnoses Diagnosis Vitamin D deficiency - Primary Allergic rhinitis, unspecified seasonali ty, unspecified trigger documented in this encounter Care Teams Newswriter Relationship Specialty Start Date End Date Sebastian Griffiths MD PCP - General 10/24/[address] [place] [phone] documented as of this encounter
--- OUTSIDE RECORDS SUMMARY | 2021-12-09 21:25 | XMS_ITS | Encounter Summary ---
:1950 Author Organization [facility] Address [address] [place] [address] Care Team Providers Name Role Phone Sebastian Griffiths MD Primary Care Provider Reason for Visit Reason Onset Date Comments Med Refill 12/22/2020 Encounter Details Date Type Department Care Team Description 12/22/2020 Refill SE Family Med Sebastian Griffiths MD Allergic conjunctivitis, unspecified lat erality (Primary Dx); [address] [facility] [address] Chronic pain syndrome; [place] [address] [place] [address] Allergic rhinitis, unspecified seasonali ty, unspecified trigger [phone] (Wo rk) Social History Tobacco Use Types [...] do you attend zoroastrian or Never 2020 restorationist services? Do you belong to any clubs [...] Telephone Encounter - Catherine Frank LPN - 12/22/2020 12:56 PM CDT fluticasone (FLONASE) 50 MCG/ACT nasal spray 07/22/20 #16g with 6 refills Latanoprost solution 0.005% instill 1 drop in both eyes at bedtime last filled by outsider provider on 11/25/20 2.5ml no refills Telephone Encounter - Tamie Shore MA - 12/22/2020 5:45 AM CDT Last visit in provider department: 12/03/2020 with Iwona Rivera, DNP, DISPLAY SCREEN FABRICATOR, [employer] [place] Last visit requested medication was discussed: 12/03/2020 Upcoming appointment with provider: 01/25/2021 Last Rx: oxyCODONE (ROXICODONE) 5 MG immediate release tablet, #180 with no refills 11/30/2020 Requested Prescriptions Pending Prescriptions Disp Refills ??? oxyCODONE (ROXICODONE) 5 MG immediate release tablet 180 tablet 0 Sig: Take 2 tablets (10 mg total) by mouth every 8 (eight) hours if needed for moderate pain No CSA found. Labs: No RUDS found. No pending lab found. Vitals: BP Readings from Last 2 Encounters: 12/03/20 (!) 138/92 10/29/20 140/80 Please advise, thank you. documented in this encounter Plan of Treatment Upcoming Encounters Date Type Specialty Care Team Description 01/18/2022 Telemedicine Family Medicine Sebastian Griffiths MD [address] [place] [address] (Wo rk) documented as of this encounter Visit Diagnoses Diagnosis Allergic conjunctivitis, unspecified lat erality - Primary Chronic pain syndrome Allergic rhinitis, unspecified seasonali ty, unspecified trigger documented in this encounter Care Teams Stand Up Comedian Relationship Specialty Start Date End Date Sebastian Griffiths MD PCP - General 10/24/17 [address] [place] [address] documented as of this encounter
--- OUTSIDE RECORDS SUMMARY | 2021-12-09 21:25 | XMS_ITS | Encounter Summary ---
:1950 Author Organization [facility] Address [address] [place] [address] Care Team Providers Name Role Phone Sebastian Griffiths MD Primary Care Provider Reason for Visit Reason Onset Date Comments Med Refill 12/17/2020 Encounter Details Date Type Department Care Team Description 12/17/2020 Refill SE Family Med Sebastian Griffiths MD Uncontrolled type 2 [address] [facility] [address] [place] [address] [place] [address] hyperglycemia (HCC) [phone] (Wo rk) (Primary Dx) Social History Tobacco [...] do you attend taoist or Never 2020 cheondoism services? Do you belong to any clubs [...] Telephone Encounter - Catherine Frank LPN - 12/17/2020 3:02 PM CDT Images from the original note were not included. Last visit in provider department: 12/03/20 Last visit requested medication was discussed:06/23/20 DM this med not discussed Upcoming appointment with provider: 01/25/2021 Last Rx: med not filled at [facility] was last filled by a Dr Lenard Astudillo on 11/25/20 for 15ml inject 0-7 unitssubcutaneous twice a day before breakfast and dinner Requested Prescriptions Pending Prescriptions Disp Refills ??? insulin aspart (NovoLOG) 100 UNIT/ML injection 10 mL Sig: Sliding scale as needed. Labs:Contains abnormal data Glucose, POCT Order: [id number] (suggestion) Information displayed in this report will not trend and will not trigger automated decision support. Component Ref Range & Units 11/26/20 0621 Glucose, POCT, B 70 - 140 mg/dL 212High Site ?? Capillary Last Intake ?? 1-2 hours Resulting Agency PCLX Specimen Collected: 11/26/20 06:21 Last Resulted: 11/26/20 06:29 Received From: [facility] Hemoglobin A1c Order: [id number] (suggestion) Information displayed in this report will [...] 08:03 Last Resulted: 11/15/20 09:03 Received From: [facility] Result Received: 12/03/20 08:20 Renal Function Panel Order: [id number] (suggestion) Information displayed in this report will not trend and will not trigger automated decision support. Component Ref Range & Units 11/15/20 0803 Potassium, S 3.6 - 5.2 mmol/L 4.6 Sodium, S 135 - 145 mmol/L 137 Chloride, S 98 - 107 mmol/L 98 Bicarbonate, S 22 - 29 mmol/L 27 Anion Gap 7 - 15 12 BUN (Blood Urea Nitrogen), S 6 - 21 mg/dL 14 Creatinine, S 0.59 - 1.04 mg/dL 0.7 eGFR-Non Black/ >=60 mL/min/BSA 89 Comment: ----ADDITIONAL INFORMATION---- Estimated GFR calculated using the 2009 CKD_EPI creatinine equation. eGFR-Black/ >=60 mL/min/BSA >90 Comment: ----ADDITIONAL INFORMATION---- Estimated GFR calculated using the 2009 CKD_EPI creatinine equation. Calcium, Total, S 8.8 - 10.2 mg/dL 10.1 Glucose, S 70 - 140 mg/dL 162High Albumin, S 3.5 - 5.0 g/dL 4 Phosphorus (Inorganic), S 2.5 - 4.5 mg/dL 4.3 Resulting Agency DTL Specimen Collected: 11/15/20 08:03 Last Resulted: 11/15/20 09:04 Received From: [facility] Vitals: BP Readings from Last 2 Encounters: 12/03/20 (!) 138/92 10/29/20 140/80 documented in this encounter Plan of Treatment Upcoming Encounters Date Type Specialty Care Team Description 01/18/2022 Telemedicine Family Medicine Sebastian Griffiths MD [address] [place], [place] [address] (Wo rk) documented as of this encounter Visit Diagnoses Diagnosis Uncontrolled type 2 diabetes mellitus wi th hyperglycemia (HCC) - Primary documented in this encounter Care Teams Industrial/Organizational Psychologist Relationship Specialty Start Date End Date Sebastian Griffiths MD PCP - General 10/24/[address] [place] [phone] documented as of this encounter
--- OUTSIDE RECORDS SUMMARY | 2021-12-09 21:25 | XMS_ITS | Encounter Summary ---
:1950 Author Organization [facility] Address [address] [place] [address] Care Team Providers Name Role Phone Rocío Griffiths MD Primary Care Provider Reason for Referral Consultation (Routine) - Authorized Specialty Diagnoses / Procedures Referred By Contact Refer red To Contact Otolaryngology Diagnoses Throat fullness Rocío Griffiths MD Ear Nose Throat [address] [place] [address] [place] [address] Fax: Referral ID Status Reason Start Expiration Visits Visits Date Date Requested Authorized [id number] Authorized Specialty 01/25/2021 01/25/2022 1 1 Services Required Scheduling Instructions Please call the ENT Source Inspector desk at [phone]. [phone] to schedule an appointment. S CLERK Reason for Visit Reason Comments 3 month recheck Encounter Details Date Type Department Care Team Description 01/25/2021 Office Visit SE Family [facility] Rocío Griffiths, Throat fullness (Primary Dx) ; [address] [facility] Encounter for smoking cessation counseli ng; [place] [address] Insomnia, unspecified type; [phone] Chronic pain syndrome; [place], [place] Type II diabet es mellitus with peripheral circulatory disorder (HCC); [id number] Uncontrolled type 2 diabetes mellitus wi th hyperglycemia (HCC) Social History Tobacco Use Types Packs/Day [...] do you attend rastafari or Never 2020 denominational services? Do you belong to any clubs [...] with No / Unsure 01/25/2021 2:38 PM PARTS CLERK someone who was confirmed or suspected to have Coronavirus / COVID-19? documented as of this encounter Last Filed Vital Signs Vital Sign Reading Time Taken Comments Blood Pressure 138/80 01/25/2021 3:25 PM PARTS CLERK Pulse 101 01/25/2021 2:33 PM PARTS CLERK Temperature 36.2 ??C (97.2 ??F) 01/25/2021 2:33 PM PARTS CLERK Respiratory Rate 20 01/25/2021 2:33 PM PARTS CLERK Oxygen Saturation 97% 01/25/2021 2:33 PM PARTS CLERK Inhaled Oxygen Concentration - - Weight 108 kg (238 lb) 01/25/2021 2:33 PM PARTS CLERK Height - - Body Mass Index 40.78 10/29/2020 1:25 PM CDT documented in this encounter Progress Notes Rocío Griffiths MD - 01/25/2021 3:00 PM CST Estab Patient Visit Subjective Patient ID: Rena Fan is a 71 y.o. female. Chief Complaint Patient presents with ??? 3 month recheck HPI Patient presents for diabetic checkup and checkup of her chronic low back pain. She would like to have 1 more 5 mg pain pills per day. She states she awakens at night. She is currently residing up in [facility] in [place]. I got notes from the facility to send her prescriptions to her long-term care facility pharmacy except for her diabetic supplies which need to go to the local [facility]. Patient feels her pain is stable if not a little worse. Her knee pain is stable. These have been issues for a long time. Patient has moved around to several facilities and is now at [place] which she feels safe at. The following portions of the patient's chart were reviewed in this encounter and updated as appropriate: Tobacco Allergies Meds Problems Med Hx Surg Hx Fam Hx Soc Hx Review of Systems Denies any numbness or open skin sores. She needs refill of her nicotine patches, she states she is down to 1 cigarette a day. She also feels as though food gets stuck in her throat. This is been goingon for about 3 to 4 months now. Objective @AWV@ Vitals taken from Annual Wellness nurse visit: BP Readings from Last 1 Encounters: 01/25/21 138/80 Pulse Readings from Last 1 Encounters: 01/25/21 101 Resp Readings from Last 1 Encounters: 01/25/21 20 SpO2 Readings from Last 1 Encounters: 01/25/21 97% Wt Readings from Last 1 Encounters: 01/25/21 108 kg (238 lb) Ht Readings from Last 1 Encounters: 10/29/20 1.627 m (5' 4.06) BMI Readings from Last 1 Encounters: 01/25/21 40.78 kg/m?? Physical Exam Feet: Right foot: Protective Sensation: 3 sites tested. 3 sites sensed. Left foot: Protective Sensation: 3 sites tested. 3 sites sensed. No visits with results within 2 Week(s) from this visit. Latest known visit with results is: Lab on 06/23/2020 Component Date Value ??? Cholesterol 06/23/2020 146 ??? Triglycerides 06/23/2020 419* ??? HDL 06/23/2020 41 ??? LDL Calculated 06/23/2020 see below ??? Fasting? 06/23/2020 No ??? Hemoglobin A1C 06/23/2020 9.1* ??? Sodium 06/23/2020 130* ??? Potassium 06/23/2020 4.1 ??? Chloride 06/23/2020 95* ??? CO2 06/23/2020 24 ??? Creatinine 06/23/2020 0.7 ??? BUN 06/23/2020 15 ??? Glucose 06/23/2020 408* ??? Calcium, Total,S 06/23/2020 9.6 ??? Microalbumin,mg/day 06/23/2020 44.4* ??? Creatinine, Urine 06/23/2020 90 ??? Microalb/Creat Ratio 06/23/2020 49* ? ? GFR 06/23/2020 >60 ? ? GFR 06/23/2020 >60 Assessment/Plan Diagnoses and all orders for this visit: Throat fullness - Ambulatory referral to ENT Encounter for smoking cessation counseling - nicotine (NICODERM CQ) 21 MG/24HR; Place 1 patch on the skin 1 (one) time each day at the same time Insomnia, unspecified type - zolpidem (AMBIEN) 5 MG tablet; TAKE ONE TABLET BY MOUTH EVERY DAY AT BEDTIME NEEDED FOR SLEEP Chronic pain syndrome - acetaminophen (TYLENOL) 500 MG tablet; Take 2 tablets (1,000 mg total) by mouth every 8 (eight) hours if needed for mild pain Type II diabetes mellitus with peripheral circulatory disorder (HCC) - glucose blood test strip; Use to test blood sugar three times daily Uncontrolled type 2 diabetes mellitus with hyperglycemia (HCC) - glucose blood test strip; Use to test blood sugar three times daily - Safety Lancets misc; Use to test blood sugars 3 times a day S CLERK documented in this encounter Miscellaneous Notes Addendum Note - Rocío Griffiths MD - 01/25/2021 3:00 PM PARTS CLERK Addended by: ROCÍO GRIFFITHS on: 01/25/2021 06:07 PM Modules accepted: Orders S CLERK Addendum Note - Rocío Griffiths MD - 01/25/2021 3:00 PM PARTS CLERK Addended by: ROCÍO GRIFFITHS on: 01/26/2021 04:51 PM Modules accepted: Orders S CLERK documented in this encounter Plan of Treatment Upcoming Encounters Date Type Specialty Care Team Description 01/18/2022 Telemedicine Family Medicine Rocío Griffiths MD [address] [place], [place] [address] (Wo rk) Scheduled Referrals Name Type Priority Associated Order Schedule Diagnoses Ambulatory referral Outpatient Referral Routine Throat fullnes s Ordered: to ENT 01/25/2021 documented as of this encounter Results (ABNORMAL) Hemoglobin A1c (01/25/2021 3:51 PM PARTS CLERK) Analysis Performed At [facility] Signature Hemoglobin A1C 9.0 (H) 4.0 - 5.6 01/25/2021 [place] % A1C 7:11 PM [facility] Comment: Reference Range 4.0-5.6% is [...] Volume Laterality Blood 01/25/2021 3:51 PM 4:45 PARTS CLERK PM PARTS CLERK Rocío Griffiths MD LAB BLOOD ORDERABLES Performing Organization Address City/State/ZIP Code Phon e Number [facility] [address] [place] [address] (ABNORMAL) Microalbumin/Creatinine Ratio (01/25/2021 3:50 PM PARTS CLERK) Analysis Performed At [facility] Signature Microalbumin,m 22.3 (H) 0.0 - 16.6 01/25/2021 [place] g/day mg/L 7:07 PM [facility] Comment: . Creatinine, Urine 23 mg/dL 01/25/2021 7:07 PM [facility] Comment: No established reference range. Microalb/Creat Ratio 97 (H) 0 - 24 mg/g 01/25/2021 7:07 P [facility] Specimen Anatomical Collection Method Collection Time Receive d Time (Source) Location / / Volume Laterality Urine 01/25/2021 3:50 PM 4:45 PARTS CLERK PM PARTS CLERK Rocío Griffiths MD LAB URINE ORDERABLES Performing Organization Address City/State/ZIP Code Phon e Number [facility] [address] [place] [address] documented in this encounter Visit Diagnoses Diagnosis Throat fullness - Primary Encounter for smoking cessation counseli ng Insomnia, unspecified type Chronic pain syndrome Type II diabetes mellitus with periphera l circulatory disorder (HCC) Type II or unspecified type diabetes giuseppe litus with peripheral circulatory disorders, not stated as uncontrolled Uncontrolled type 2 diabetes mellitus wi th hyperglycemia (HCC) documented in this encounter Care Teams Secretarial Stenographer Relationship Specialty Start Date End Date Rocío Griffiths MD PCP - General 10/24/[address] [place] [phone] documented as of this encounter
--- OUTSIDE RECORDS SUMMARY | 2021-12-09 21:25 | XMS_ITS | Encounter Summary ---
:[address] [facility] Address [address] [place] [address] Care Team Providers Name Role Phone Sebastian Griffiths MD Primary Care Provider Reason for Visit Reason Onset Date Comments Med Refill 01/04/2021 Encounter Details Date Type Department Care Team Description 01/04/2021 Refill SE Family Med Sebastian Griffiths MD Insomnia, unspecified [address] [facility] [address] [place] [address] [place] [address] [phone] (Wo rk) Social History Tobacco Use Types [...] or relatives? How often do you attend sabianist or Never 2020 rastafari services? Do you belong to any clubs or No 05/18/2020 organizations such as sabianist groups, unions, fraternal or athletic groups, or [...] Telephone Encounter - Candice Werner LPN - 01/04/2021 2:22 PM CDT Last visit in provider department: 12/03/2020 Last visit requested medication was discussed: med/dx has not been reviewed in the last year Upcoming appointment with provider: 01/25/2021 Last Rx: #30, 2 refills 10/01/2020 Requested Prescriptions Pending Prescriptions Disp Refills ??? zolpidem (AMBIEN) 5 MG tablet 30 tablet 2 documented in this encounter Plan of Treatment Upcoming Encounters Date Type Specialty Care Team Description 01/18/2022 Telemedicine Family Medicine Sebastian Griffiths MD [address] [place], [place] [address] (Wo rk) documented as of this encounter Visit Diagnoses Diagnosis Insomnia, unspecified type documented in this encounter Care Teams Electrical Products Engineer Relationship Specialty Start Date End Date Sebastian Griffiths MD PCP - General 10/24/17 [address] [place], [place] [phone] documented as of this encounter
--- OUTSIDE RECORDS SUMMARY | 2021-12-09 21:26 | XMS_ITS | Encounter Summary ---
:1950 Author Organization [facility] Address [address] [place] [address] Care Team Providers Name Role Phone Sebastian Griffiths MD Primary Care Provider Reason for Visit Reason Onset Date Comments Blood Glucose Monitor 07/08/2020 Med Refill 07/08/2020 Encounter Details Date Type Department Care Team Description 07/08/2020 Refill SE Internal Medicine Sun Gloria RN Type II diabetes mellitus with periphera l circulatory disorder (HCC); [address] Uncontrolled type 2 diabetes mellitus with hyperglycemia (HCC) [place] [address] [place] [address] Social History Tobacco Use Types Packs/Day Years [...] do you attend pentecostal or Never 2020 anabaptism services? Do you [...] Telephone Encounter - Sun Gloria RN - 07/08/2020 3:35 PM CDT Pharmacy calling. They also need Rx for glucose monitor for patient. documented in this encounter Plan of Treatment Upcoming Encounters Date Type Specialty Care Team Description 01/18/2022 Telemedicine Family Medicine Sebastian Griffiths MD [address] [place] [phone] (Wo rk) documented as of this encounter Visit Diagnoses Diagnosis Type II diabetes mellitus with periphera l circulatory disorder (HCC) Type II or unspecified type diabetes giuseppe litus with peripheral circulatory disorders, not stated as uncontrolled Uncontrolled type 2 diabetes mellitus wi th hyperglycemia (HCC) documented in this encounter Care Teams Upscale Security Officer Relationship Specialty Start Date End Date Sebastian Griffiths MD PCP - General 10/24/[address] [place] [id number] documented as of this encounter
--- OUTSIDE RECORDS SUMMARY | 2021-12-09 21:26 | XMS_ITS | Encounter Summary ---
:1950 Author Organization [facility] Address [address] [place] [address] Care Team Providers Name Role Phone Sebastian Griffiths MD Primary Care Provider Reason for Visit Reason Comments Med Refill Encounter Details Date Type Department Care Team Description 09/14/2020 Refill SE Family Med Sebastian Griffiths, Osteoarthritis of both [address] [facility] knees, [place] [address] osteoarthritis type [phone] [place] [address] Social History Tobacco Use Types [...] do you attend episcopalian or Never 2020 protestant services? Do you belong to any clubs [...] Telephone Encounter - Mandi Kwon MA - 09/16/2020 9:30 AM CDT Last visit in provider department: 06/25/2020 Upcoming appointment with provider: 10/05/2020 Last Rx: #100 +3 refills 03/19/2020 Requested Prescriptions Pending Prescriptions Disp Refills ??? V-R NON-ASPIRIN 500 MG tablet [Pharmacy Med Name: PAIN RELIEVER ES 500MG TABLET] 180 tablet Sig: TAKE 2 TABS (1,000MG) BY MOUTH EVERY 8 HOURS NEEDED FOR PAIN/FEVER Vitals: BP Readings from Last 2 Encounters: 06/23/20 163/90 05/18/20 134/68 documented in this encounter Plan of Treatment Upcoming Encounters Date Type Specialty Care Team Description 01/18/2022 Telemedicine Family Medicine Sebastian Griffiths MD [address] [place], [place] [phone] (Wo rk) documented as of this encounter Visit Diagnoses Diagnosis Osteoarthritis of both knees, unspecifie d osteoarthritis type documented in this encounter Care Teams Healthcare Administration Intern Relationship Specialty Start Date End Date Sebastian Griffiths MD PCP - General 10/24/17 [address] [place] [address] documented as of this encounter
--- OUTSIDE RECORDS SUMMARY | 2021-12-09 21:26 | XMS_ITS | Encounter Summary ---
:1950 Author Organization [facility] Address [address] [place] [address] Care Team Providers Name Role Phone Sebastian Griffiths MD Primary Care Provider Reason for Visit Reason Comments Med Refill Encounter Details Date Type Department Care Team Description 09/22/2020 Refill SE Family Med Sebastian Griffiths MD Generalized anxiety [address] [facility] [address] [place] [address] [place] [address] [phone] (Wo rk) Social History Tobacco Use Types [...] do you attend anabaptism or Never 2020 confucianism services? Do you [...] Telephone Encounter - Lindsay Ny LPN - 09/22/2020 12:48 PM CDT Last visit in provider department: 06/23/2020 Last visit requested medication was discussed: 05/18/2020 Upcoming appointment with provider: 10/05/2020 Last Rx: 08/14/2020 # 90, 0 refills Requested Prescriptions Pending Prescriptions Disp Refills ??? LORazepam (ATIVAN) 0.5 MG tablet [Pharmacy Med Name: LORAZEPAM 0.5MG TABLET] 90 tablet Sig: TAKE 1 TABLET BY MOUTH MOUTH EVERY 8 HOURS IF NEEDED FOR ANXIETY 06/23/2020 PHQ9: 0 05/18/2020 GAD7: 7 Vitals: BP Readings from Last 2 Encounters: 06/23/20 163/90 05/18/20 134/68 documented in this encounter Plan of Treatment Upcoming Encounters Date Type Specialty Care Team Description 01/18/2022 Telemedicine Family Medicine Sebastian Griffiths MD [address] [place], [place] [address] (Wo rk) documented as of this encounter Visit Diagnoses Diagnosis Generalized anxiety disorder documented in this encounter Care Teams Tourist Home Keeper Relationship Specialty Start Date End Date Sebastian Griffiths MD PCP - General 10/24/[address] [place] [address] documented as of this encounter
--- OUTSIDE RECORDS SUMMARY | 2021-12-09 21:26 | XMS_ITS | Encounter Summary ---
:1950 Author Organization [facility] Address [address] [place] [address] Care Team Providers Name Role Phone Rocío Griffiths MD Primary Care Provider Reason for Visit Reason Comments Follow-up DM F/U,R leg pain x 4 months Encounter Details Date Type Department Care Team Description 10/05/2020 Office Visit [facility] Rocío Griffiths, Encounter for smoking cessat ion counseling (Primary Dx); [address] [facility] Chronic pain syndrome; [place] [address] Uncontrolled type 2 diabetes mellitus with hyperglycemia (HCC) [phone] [place] [address] Social History Tobacco Use Types [...] or relatives? How often do you attend pentecostalism or Never 2020 latter-day services? Do you belong to any clubs or No 05/18/2020 organizations such as pentecostalism groups, unions, fraternal or athletic groups, or [...] Sign Reading Time Taken Comments Blood Pressure 136/84 10/05/2020 3:16 PM CDT Pulse 116 10/05/2020 3:16 PM CDT Temperature 36.7 ??C (98 ??F) 10/05/2020 3:16 PM CDT Respiratory Rate 22 10/05/2020 3:16 PM CDT Oxygen Saturation 96% 10/05/2020 3:16 PM CDT Inhaled Oxygen Concentration - - Weight 106 kg (234 lb 9.6 oz) 10/05/2020 3:16 PM CDT Height - - Body Mass Index 40.2 06/23/2020 11:19 AM CDT documented in this encounter Patient Instructions Patient InstructionsRocío Griffiths MD - 10/05/2020 3:20 PM CDT May take the oxycodone 5mg tablets every 6 hours up to 3 a day max. May have tylenol 1-2 tablets of the 500 mg dose up to 3 times a day. No non-diet pop! documented in this encounter Progress Notes Rocío Griffiths MD - 10/05/2020 3:20 PM CDT Estab Patient Visit Subjective Patient ID: Rena Fan is a 70 y.o. female. Chief Complaint Patient presents with ??? Follow-up DM F/U,R leg pain x 4 months HPI Patient presents for recheck of her diabetes, and she had a recent fall in her scooter that resultedin some injuries. I have been slowly tapering her off her oxycodone but she is rather disappointed that I switched her 5 mg oxycodone dose from 4 times a day to 3 times a day. Particularly every 8 hours she finds quite ineffective. She states she is drinking lots of pop and her hemoglobin A1c has beenstalled out at a high level. The following portions of the patient's chart were reviewed in this encounter and updated as appropriate: Tobacco Allergies Meds Problems Med Hx Surg Hx Fam Hx Soc Hx Review of Systems She did state that she did get her scooter repaired and is back with her. [place] , who had multiple medical issues. Objective @AWV@ Vitals taken from Annual Wellness nurse visit: BP Readings from Last 1 Encounters: 10/05/20 136/84 Pulse Readings from Last 1 Encounters: 10/05/20 (!) 116 Resp Readings from Last 1 Encounters: 10/05/20 22 SpO2 Readings from Last 1 Encounters: 10/05/20 96% Wt Readings from Last 1 Encounters: 10/05/20 106 kg (234 lb 9.6 oz) Ht Readings from Last 1 Encounters: 06/23/20 1.627 m (5' 4.06) BMI Readings from Last 1 Encounters: 10/05/20 40.20 kg/m?? Physical Exam General: Pleasant female in no acute distress she did show me some bumpy areas on the right lateral calf that might be varicose veins. They are very tender to touch but showed no overlying skin changes. No visits with results within 2 Week(s) [...] Diagnoses and all orders for this visit: Encounter for smoking cessation counseling - nicotine (NICODERM CQ) 21 MG/24HR; Place 1 patch on the skin 1 (one) time each day at the same time - nicotine polacrilex (Nicorette) 2 MG gum; Chew 1 each (2 mg total) if needed for smoking cessationUse up to 3 pieces of gum a day while also on the patch Chronic pain syndrome - oxyCODONE (ROXICODONE) 5 MG immediate release tablet; Take 1 tablet (5 mg total) by mouth every 6 (six) hours if needed for moderate pain May separate oxycodone prescriptions by 6 hours with a maximum daily dose of 3 a day. - acetaminophen (TYLENOL) 500 MG tablet; Take 2 tablets (1,000 mg total) by mouth every 8 (eight) hours if needed for mild pain Uncontrolled type 2 diabetes mellitus with hyperglycemia (HCC) Patient is down to 2 cigarettes a day but she like to quit smoking so we will try the more nicotine substitution products. She states she only used 3 pieces of gum on top of her 21 mg patch. She statesshe was not getting her Tylenol so I really establish that prescription. We will continue with 3 oxycodone a day maximum but she can put them at 6-hour intervals. A prescription was released today for 30-day supply. Recheck in 3 months. In the meantime her job is to find a substitute for her soda pop which I think will be a major improvement in her diabetes management besides chasing things with medications. documented in this encounter Miscellaneous Notes Addendum Note - Rocío Griffiths MD - 10/05/2020 3:20 PM CDT Addended by: ROCÍO GRIFFITHS on: 10/06/2020 02:18 PM Modules accepted: Orders documented in this encounter Plan of Treatment Upcoming Encounters Date Type Specialty Care Team Description 01/18/2022 Telemedicine Family Medicine Rocío Griffiths MD [address] [place] [address] (Wo rk) documented as of this encounter Visit Diagnoses Diagnosis Encounter for smoking cessation counseli ng - Primary Chronic pain syndrome Uncontrolled type 2 diabetes mellitus wi th hyperglycemia (HCC) documented in this encounter Care Teams Geothermal Powerplant Supervisor Relationship Specialty Start Date End Date Rocío Griffiths MD PCP - General 10/24/17 [address] [place] [address] documented as of this encounter
--- OUTSIDE RECORDS SUMMARY | 2021-12-09 21:26 | XMS_ITS | Encounter Summary ---
:1950 Author Organization [facility] Address [address] [place] [address] Care Team Providers Name Role Phone Sebastian Griffiths MD Primary Care Provider Reason for Visit Reason Onset Date Comments safety pen needles 09/23/2020 Encounter Details Date Type Department Care Team Description 09/23/2020 Telephone [facility] Sebastian Griffiths MD safety pen needles [address] [facility] [address] [place] [address] [place] [address] [phone] (Wo rk) Social History Tobacco Use Types [...] do you attend restoration or Never 2020 yazidi services? Do you belong to any clubs [...] Telephone Encounter - Amanda Parkinson RN - 09/23/2020 10:15 AM CDT Pharmacy calls requesting safety pen needles for insulin pen. Rx for these were sent to [facility] on 07/08/20. Pharmacist looked and was able to find rx, nothing further needed from us. documented in this encounter Plan of Treatment Upcoming Encounters Date Type Specialty Care Team Description 01/18/2022 Telemedicine Family Medicine Sebastian Griffiths MD [address] [place] [phone] (Wo rk) documented as of this encounter Visit Diagnoses Not on filedocumented in this encounter Care Teams [employer] Wiring Technician Relationship Specialty Start Date End Date Sebastian Griffiths MD PCP - General 10/24/[address] [place] [phone] documented as of this encounter
--- OUTSIDE RECORDS SUMMARY | 2021-12-09 21:26 | XMS_ITS | Encounter Summary ---
:1950 Author Organization [facility] Address [address] [place] [address] Care Team Providers Name Role Phone Sebastian Griffiths MD Primary Care Provider Reason for Visit Reason Comments Med Refill Encounter Details Date Type Department Care Team Description 10/02/2020 Refill SE Family Med Sebastian Griffiths MD Chronic pain syndrome [address] [facility] [address] [place] [address] [place] [address] [phone] (Wo rk) Social History Tobacco Use Types [...] do you attend religion or Never 2020 spiritism services? Do you belong to any clubs [...] Telephone Encounter - Jayshree Rodriguez MA - 10/06/2020 9:08 AM CDT Rx completed on 10/05/20, #90, 0 refills Requested Prescriptions Pending Prescriptions Disp Refills ??? oxyCODONE (ROXICODONE) 5 MG immediate release tablet [Pharmacy Med Name: oxyCODONE HCl 5 MG OralTablet (ROXICODONE)] 21 tablet Sig: TAKE 1 TABLET (5 MG TOTAL) BY MOUTH EVERY 8 (EIGHT) HOURS IF NEEDEDFOR MODERATE PAIN Telephone Encounter - Re Lorenz - 10/05/2020 5:53 PM CDT Pharmacy called looking for this prescription, please call to confirm if this medication is to be ordered. documented in this encounter Plan of Treatment Upcoming Encounters Date Type Specialty Care Team Description 01/18/2022 Telemedicine Family Medicine Sebastian Griffiths MD [address] [place] [phone] (Wo rk) documented as of this encounter Visit Diagnoses Diagnosis Chronic pain syndrome documented in this encounter Care Teams Therapeutic Recreation Leader Relationship Specialty Start Date End Date Sebastian Griffiths MD PCP - General 10/24/[address] [place] [phone] documented as of this encounter
--- OUTSIDE RECORDS SUMMARY | 2021-12-09 21:26 | XMS_ITS | Encounter Summary ---
:1950 Author Organization [facility] Address [address] [place] [address] Care Team Providers Name Role Phone Sebastian Griffiths MD Primary Care Provider Reason for Visit Reason Comments Med Refill Encounter Details Date Type Department Care Team Description 08/10/2020 Refill SE Family Med Sebastian Griffiths MD Chronic pain syndrome; [address] [facility] [address] Generalized [place] [address] [place] [address] [phone] (Wo rk) Social History Tobacco Use Types [...] or relatives? How often do you attend baptism or Never 2020 jehovah's witness services? Do you belong to any clubs or No 05/18/2020 organizations such as baptism groups, unions, fraternal or athletic groups, or [...] encounter Miscellaneous Notes Telephone Encounter - Jayshree Goldsmith-MACIE Harley - 08/13/2020 6:32 AM CDT Last visit in provider department: 06/23/2020 Last visit requested medication was discussed: 05/18/20 Upcoming appointment with provider: 08/25/2020 Last Rx: oxyCODONE (ROXICODONE) 5 MG immediate release tablet 07/17/20, #180, 0 refills LORazepam (Ativan) 0.5 MG tablet 07/15/20, #90, 0 refills Requested Prescriptions Pending Prescriptions Disp Refills ??? oxyCODONE (ROXICODONE) 5 MG immediate release tablet [Pharmacy Med Name: oxyCODONE HCl 5 MG OralTablet (ROXICODONE)] 180 tablet Sig: TAKE 2 TABLETS (10 MG TOTAL) BY MOUTH EVERY 8 (EIGHT) HOURS IF NEEDED FOR MODERATE PAIN FILLDATE 07/17/20 ??? LORazepam (ATIVAN) 0.5 MG tablet [Pharmacy Med Name: LORAZEPAM 0.5MG TABLET] 90 tablet Sig: TAKE 1 TABLET BY MOUTH MOUTH EVERY 8 HOURS IF IF NEEDED FOR ANXIETY documented in this encounter Plan of Treatment Upcoming Encounters Date Type Specialty Care Team Description 01/18/2022 Telemedicine Family Medicine Sebastian Griffiths MD [address] [place] [phone] (Wo rk) documented as of this encounter Visit Diagnoses Diagnosis Chronic pain syndrome Generalized anxiety disorder documented in this encounter Care Teams Retail Merchandising Specialist Relationship Specialty Start Date End Date Sebastian Griffiths MD PCP - General 10/24/[address] [place] [phone] documented as of this encounter
--- OUTSIDE RECORDS SUMMARY | 2021-12-09 21:26 | XMS_ITS | Encounter Summary ---
:[address] [facility] Address [address] [place] [address] Care Team Providers Name Role Phone Sebastian Griffiths MD Primary Care Provider Reason for Visit Reason Comments Med Refill Encounter Details Date Type Department Care Team Description 08/28/2020 Refill SE Family Med Sebastian Griffiths MD Type II diabetes [address] [place] [facility] [address] [place] [address] [place] [address] circulatory disorder [phone] (Wo rk) ([facility]) Social History Tobacco Use Types Packs/Day Years [...] or relatives? How often do you attend presybeterian or Never 2020 yazidi services? Do you belong to any clubs or No 05/18/2020 organizations such as presybeterian groups, unions, fraternal or athletic groups, or [...] Telephone Encounter - Lindsay Ny LPN - 09/01/2020 10:36 AM CDT Last visit in provider department: 06/23/2020 Last visit requested medication was discussed: 06/23/2020 Upcoming appointment with provider: 09/08/2020 Last Rx: 07/08/2020 # 1 each, 0 refills Requested Prescriptions Pending Prescriptions Disp Refills ??? Blood Glucose Monitoring Suppl (Accu-Chek Guide) w/Device kit [Pharmacy Med Name: ACCU-CHEK GUIDE GLUCOSE KIT] 1 kit Sig: USE DIRECTED TO TEST BLOOD SUGARS THREE TIMES DAILY Vitals: BP Readings from Last 2 Encounters: 06/23/20 163/90 05/18/20 134/68 documented in this encounter Plan of Treatment Upcoming Encounters Date Type Specialty Care Team Description 01/18/2022 Telemedicine Family Medicine Sebastian Griffiths MD [address] [place], [place] [phone] (Wo rk) documented as of this encounter Visit Diagnoses Diagnosis Type II diabetes mellitus with periphera l circulatory disorder (HCC) Type II or unspecified type diabetes giuseppe litus with peripheral circulatory disorders, not stated as uncontrolled documented in this encounter Care Teams Manager Mall Relationship Specialty Start Date End Date Sebastian Griffiths MD PCP - General 10/24/[address] [place] [phone] documented as of this encounter
--- OUTSIDE RECORDS SUMMARY | 2021-12-09 21:26 | XMS_ITS | Encounter Summary ---
:1950 Author Organization [facility] Address [address] [place] [address] Care Team Providers Name Role Phone Sebastian Griffiths MD Primary Care Provider Reason for Visit Reason Comments Med Refill Encounter Details Date Type Department Care Team Description 09/10/2020 Refill SE Family Med Sebastian Griffiths MD Chronic pain syndrome [address] [facility] [address] [place] [address] [place] [address] [phone] (Wo rk) Social History Tobacco Use Types [...] do you attend yarsani or Never 2020 scientologist services? Do you [...] this encounter Miscellaneous Notes Telephone Encounter - Yanna Cheng LPN - 09/11/2020 2:45 PM CDT Last appointment 4/6/21. Next appointment 10/05/20. Rx last given 08/14/20 for #180 and no refills. Please advise on refill as POD in absence of PCP. Telephone Encounter - Héctor Sutherlandmason - 09/11/2020 2:32 PM CDT [facility] calls stating pt will run out of medication over the weekend and requests this to be filled today. Please advise. documented in this encounter Plan of Treatment Upcoming Encounters Date Type Specialty Care Team Description 01/18/2022 Telemedicine Family Medicine Sebastian Griffiths MD [address] [place], [place] [address] (Wo rk) documented as of this encounter Visit Diagnoses Diagnosis Chronic pain syndrome documented in this encounter Care Teams Critical Care Transport Nurse Relationship Specialty Start Date End Date Sebastian Griffiths MD PCP - General 10/24/[address] [place] [address] documented as of this encounter
--- OUTSIDE RECORDS SUMMARY | 2021-12-09 21:26 | XMS_ITS | Encounter Summary ---
:1950 Author Organization [facility] Address [address] [place] [address] Care Team Providers Name Role Phone Sebastian Griffiths MD Primary Care Provider Reason for Visit Reason Comments Med Refill Encounter Details Date Type Department Care Team Description 10/28/2020 Refill SE Family Med Seabstian Griffiths MD Encounter for smoking [address] [facility] [address] [place] [address] [place] [address] [phone] (Wo rk) Social History Tobacco Use Types [...] do you attend yazidism or Never 2020 temple services? Do you belong to any clubs [...] Telephone Encounter - Jayshree Rodriguez MA - 11/03/2020 6:23 AM CDT Rx completed on 10/05/20, #30, 1 refill Requested Prescriptions Pending Prescriptions Disp Refills ??? nicotine (NICODERM CQ) 21 MG/24HR [Pharmacy Med Name: NICOTINE 21MG/24HR PATCH] Sig: PLACE 1 PATCH ON THE SKIN 1 (ONE) TIME EACH DAY AT THE SAME TIME E-Prescribing Status: Receipt confirmed by pharmacy (10/05/2020 ??3:50 PM CDT) documented in this encounter Plan of Treatment Upcoming Encounters Date Type Specialty Care Team Description 01/18/2022 Telemedicine Family Medicine Sebastian Griffiths MD [address] [place] [phone] (Wo rk) documented as of this encounter Visit Diagnoses Diagnosis Encounter for smoking cessation counseli ng documented in this encounter Care Teams Pulp Plant Supervisor Relationship Specialty Start Date End Date Sebastian Griffiths MD PCP - General 10/24/[address] [place] [address] [phone] documented as of this encounter
--- OUTSIDE RECORDS SUMMARY | 2021-12-09 21:26 | XMS_ITS | Encounter Summary ---
:1950 Author Organization [facility] Address [address] [place] [address] Care Team Providers Name Role Phone Sebastian Griffiths MD Primary Care Provider Encounter Details Date Type Department Care Team Description 10/29/2020 Hospital Encounter [facility] [address] [place] [phone] Social History Tobacco Use Types Packs/Day Years [...] or relatives? How often do you attend congregational or Never 2020 uatsdin services? Do you belong to any clubs or No 05/18/2020 organizations such as congregational groups, unions, fraternal or athletic groups, or [...] on file documented as of this encounter Medications at Time of Discharge Medication Sig Dispensed Refills Start Date End Date Continuous Blood Gluc 1 application 3 1 each 1 Sensor (FreeStyle Kristie (three) times a day 14 Day Sensor) miscIndications: Uncontrolled type 2 diabetes mellitus with hyperglycemia (HCC) docusate sodium (COLACE) Take 100 mg by mouth 0 100 MG capsule 2 (two) times a day if needed dorzolamide-timolol Administer 1 drop 10 mL 11 9 (COSOPT) 22.3-6.8 MG/ML into both eyes 2 ophthalmic (two) times a day solutionIndications: Primary open angle glaucoma (POAG) of both eyes, severe stage ketorolac (ACULAR) 0.5 % Administer 1 drop 0 04/0 07/2018 ophthalmic solution into affected eye(s) 4 times daily Misc. Devices glucometer strips 0 10/29/2015 (RECONSTITUBE) misc See Instructions, testing strips-please fill brand covered by insurance., 100 each, 5 Refill(s) Misc. Devices flex pen needles See 0 10/08/2015 (RECONSTITUBE) misc Instructions, flex pen needles, 100 each, 5 Refill(s) Misc. Devices lancet See 0 10/08/2015 (RECONSTITUBE) misc Instructions, lancets, 100 each, 5 Refill(s) Misc. Devices glucometer See 0 10/08/2015 (RECONSTITUBE) misc Instructions, glucose monitor, 1 each, 0 Refill(s) naloxone (NARCAN) 0.4 Inject 1 mL (0.4 mg 1 mL 0 10/30 MG/ML total) into the injectionIndications: S/P shoulder, thigh, or arthroscopy of right buttocks if needed shoulder for opioid reversal prednisoLONE acetate Administer 1 drop 0 06/23/19 19 (PRED FORTE) 1 % into affected eye(s) ophthalmic suspension 4 times daily senna (SENOKOT) 8.6 MG Take 2 tablets by 0 tablet mouth every night SEREVENT DISKUS 50 Inhale 1 puff 2 0 05/22/2019 MCG/DOSE diskus inhaler (two) times a day [employer] SHARPS 0 08/04/2020 (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) misc sodium chloride (OCEAN) Administer 2 sprays 0 0.65 % nasal spray into each nostril 3 (three) times a day if needed for congestion Sofosbuvir-Velpatasvir Take 1 tablet by 0 (Epclusa) 400-100 MG mouth 1 (one) time tablet each day timolol (TIMOPTIC) 0.5 % Administer 1 drop 0 ophthalmic solution into affected eye(s) 2 times daily acetaminophen (TYLENOL) Take 2 tablets 100 tablet 3 10/06/19 21 12/14/2020 500 MG tabletIndications: (1,000 mg total) by Chronic pain syndrome mouth every 8 (eight) hours if needed for mild pain amLODIPine (NORVASC) 5 MG TAKE 1 TAB BY MOUTH 30 tablet 2 0 09/24/2020 12/14/2020 tabletIndications: EVERY MORNING FOR Hypertension, essential, HYPERTENSION benign aspirin (Aspirin Low CHEW ONE TABLET BY 100 tablet 4 020 01/14/2021 Dose) 81 MG chewable MOUTH DAILY tabletIndications: Controlled type 2 diabetes mellitus without complication, without long-term current use of insulin ([facility]) Blood Glucose Monitoring USE DIRECTED TO 1 kit 0 03/02/2021 Suppl (Accu-Chek Guide) TEST BLOOD SUGARS w/Device kitIndications: THREE TIMES DAILY Type II diabetes mellitus with peripheral circulatory disorder ([facility]) cefdinir (OMNICEF) 300 MG TAKE 1 CAPSULE BY 0 01/202012/03/2020 capsule MOUTH EVERY 12 HOURS FOR 10 DAYS Cetirizine HCl 10 MG Take 10 mg by mouth 0 12/03/2020 capsule 1 (one) time each day if needed Continuous Blood Gluc 1 application 3 1 Device 11 1 01/25/2021 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 ([employer] Kristie (three) times a day 14 Day [place]) deviceIndications: Uncontrolled type 2 diabetes mellitus with hyperglycemia ([facility]) diclofenac (VOLTAREN) 1 % Apply topically 2 100 g 1 10/201806/01/2021 topical gelIndications: (two) times a day To Acute pain of right affected shoulder shoulder pain DULoxetine (CYMBALTA) 60 TAKE 2 CAPS (120MG) 60 capsule 5 12/14/[address] capsuleIndications: BY MOUTH ONCE DAILY Major depressive FOR DEPRESSION disorder, recurrent episode, moderate ([facility]) enoxaparin (LOVENOX) 40 INJECT 40MG/0.4ML 0 05/2112/03/2020 MG/0.4ML solution SUBCUTANEOUSLY ONCE DAILY FOR 20 DAYS fluticasone (FLONASE) 50 USE 2 SPRAYS IN EACH 16 g 6 0 07/22/2020 12/22/2020 MCG/ACT nasal NOSTRIL EVERY sprayIndications: MORNING FOR DRY NOSE Allergic rhinitis, unspecified seasonality, unspecified trigger gabapentin (Neurontin) Take 1 tablet (600 90 tablet 5 07/0812/14/2020 600 MG tabletIndications: mg total) by mouth 3 Degenerative disc (three) times a day disease, lumbar, Uncontrolled type 2 diabetes mellitus with hyperglycemia (HCC) glucose blood test Use to test blood 300 each 3 07/08/2020 12/29/2020 stripIndications: Type II sugar three times diabetes mellitus with daily peripheral circulatory disorder (HCC), Uncontrolled type 2 diabetes mellitus with hyperglycemia (HCC) hydroCHLOROthiazide TAKE 1 TAB BY MOUTH 30 tablet 2 021 12/14/2020 (HYDRODIURIL) 25 MG ONCE DAILY FOR tabletIndications: HYPERTENSION Hypertension, essential, benign hydrOXYzine (ATARAX) 25 TAKE ONE TABLET BY 90 tablet 11 03/202006/11/2021 MG tabletIndications: MOUTH EVERY 8 HOURS Anxiety, Pruritic NEEDED FOR condition ITCHING insulin aspart (NovoLOG) Sliding scale as 0 06/2712/17/2020 100 UNIT/ML injection needed. insulin glargine (LANTUS) Inject 30 units SQ 15 mL 5 12/11/2020 100 UNIT/ML once in the evening injectionIndications: Type II diabetes mellitus with peripheral circulatory disorder (HCC), Uncontrolled type 2 diabetes mellitus with hyperglycemia ([facility]) Insulin Pen Needle Use for taking 30 each 11 07/08/2020 (DropSafe Safety Pen insulin SQ once [place]) 31G X 8 MM daily miscIndications: Uncontrolled type 2 diabetes mellitus with hyperglycemia ([facility]) Insulin Pen Needle 31G X 1 Pen needle 1 (one) 100 each 1 0 05/18/2020 01/18/2021 8 MM miscIndications: time each day Controlled type 2 diabetes mellitus without complication, without long-term current use of insulin ([facility]) Januvia 100 MG TAKE 1 TAB BY MOUTH 30 tablet 5 10/08/2020 0 12/14/2020 tabletIndications: ONCE DAILY Controlled type 2 diabetes mellitus without complication, without long-term current use of insulin ([facility]) latanoprost (XALATAN) Administer 1 drop 0 12/22/2020 0.005 % ophthalmic into affected eye(s) solution lidocaine (XYLOCAINE) 5 % Apply topically 0 03/0712/03/2020 ointment Apply small bead and rub in skin 2-4 times a day over painful back area. Wash off hands. LORazepam (ATIVAN) 0.5 MG TAKE 1 TABLET BY 90 tablet 0 07/08/202011/10/2020 tabletIndications: MOUTH MOUTH EVERY 8 Generalized anxiety HOURS IF NEEDED FOR disorder ANXIETY metFORMIN (GLUCOPHAGE) 0 05/18/2020 500 MG tablet moxifloxacin (VIGAMOX) Administer 1 drop 0 201812/03/2020 0.5 % ophthalmic solution into affected eye(s) 4 (four) times a day Right eye nicotine (NICODERM CQ) 21 Place 1 patch on the 30 patch 1 10/05/2020 12/14/2020 MG/24HRIndications: skin 1 (one) time Encounter for smoking each day at the same cessation counseling time nicotine polacrilex Chew 1 each (2 mg 100 each 2 04/13/2021 (Nicorette) 2 MG total) if needed for gumIndications: Encounter smoking cessation for smoking cessation Use up to 3 pieces counseling of gum a day while also on the patch oxyCODONE (ROXICODONE) 5 TAKE 1 TABLET (5 MG 90 tablet 0 10/30/2020 MG immediate release TOTAL) BY MOUTH tabletIndications: EVERY 6 (SIX) HOURS Chronic pain syndrome IF NEEDED FOR MODERATE PAIN MAX OF 3 TABS DAILY pantoprazole (PROTONIX) TAKE 1 TAB BY MOUTH 30 tablet 5 12/14/2020 40 MG EC ONCE DAILY FOR GERD tabletIndications: Gastroesophageal reflux disease without esophagitis risperiDONE (RisperDAL) 2 TAKE 1 TAB BY MOUTH 60 tablet 5 0 08/10/2020 12/14/2020 MG tabletIndications: TWICE A DAY Major depressive disorder, recurrent episode, moderate (HCC) Safety Lancets Use to test blood 100 each 11 07/14/202010/2020 miscIndications: sugars 3 times a day Uncontrolled type 2 diabetes mellitus with hyperglycemia (HCC) SM Stool TAKE 2 TABS (17.2MG) 180 tablet 0 10/08/202011/18 Softener/Laxative 8.6-50 BY MOUTH AT BEDTIME MG per tabletIndications: FOR CONSTIPATION Chronic constipation VENTOLIN HFA 108 (90 INHALE 1 PUFF BY 18 g 5 9 06/01/2021 Base) MCG/ACT MOUTH NEEDED inhalerIndications: Chronic obstructive pulmonary disease, unspecified COPD type (HCC) zolpidem (AMBIEN) 5 MG TAKE ONE TABLET BY 30 tablet 2 10/0101/04/2021 tabletIndications: MOUTH EVERY DAY AT Insomnia, unspecified BEDTIME NEEDED type FOR SLEEP documented as of this encounter Plan of Treatment Upcoming Encounters Date Type Specialty Care Team Description 01/18/2022 Telemedicine Family Medicine Sebastian Griffiths MD [address] [place] [address] 72 (Wo rk) documented as of this encounter Procedures Procedure Name Priority Date/Time Associated Diagnosis Comme nts XR HIP 1 VIEW RIGHT Today 10/29/2020 1:26 PM Right hip pain Results for this WITH PELVIS CDT procedure are i n the results section. documented in this encounter Results X-ray hip 1 view right with pelvis (10/29/2020 1:26 PM CDT) Anatomical Region Laterality Modality Radiographic Imaging Specimen (Source) Anatomical Collection Method Collection Time Re ceived Time Location / / Volume Laterality 10/29/2020 1:26 PM CDT Impressions 10/29/2020 1:36 PM CDT IMPRESSION: HIP 1 VIEW RIGHT WITH PELVIS Mild narrowing with spurring bilaterally at the hip joints is similar to the prior exam. ??No fracture, dislocati on or lytic or blastic lesion. Narrative 10/29/2020 1:36 PM CDT INDICATION: Right hip pain COMPARISON: AP pelvis with right hip radiograph Dece mber 2015 Procedure Note Shima Hsu MD - 10/29/2020 INDICATION: Right hip pain COMPARISON: AP pelvis with right hip radiograph Dece mber 2015 IMPRESSION: HIP 1 VIEW RIGHT WITH PELVIS Mild narrowing with spurring bilaterally at the hip joints is similar to the prior exam. No fracture, dislocation or lytic or blastic lesion. Regan Velásquez MD IMG XR PROCEDURES documented in this encounter Visit Diagnoses Not on filedocumented in this encounter Care Teams Handy Man Relationship Specialty Start Date End Date Sebastian Griffiths MD PCP - General 10/24/17 [address] [place] [address] documented as of this encounter
--- OUTSIDE RECORDS SUMMARY | 2021-12-09 21:26 | XMS_ITS | Encounter Summary ---
:1950 Author Organization [facility] Address [address] [place] [address] Care Team Providers Name Role Phone Sebastian Griffiths MD Primary Care Provider Reason for Visit Reason Comments Med Refill Encounter Details Date Type Department Care Team Description 07/09/2020 Refill SE Family Med Sebastian Griffiths MD Hypertension, essential, [address] [facility] [address] [place] [address] [place] [address] [phone] (Wo rk) Social History Tobacco Use Types [...] or relatives? How often do you attend anabaptist or Never 2020 mosque services? Do you belong to any clubs or No 05/18/2020 organizations such as anabaptist groups, unions, fraternal or athletic groups, or [...] Telephone Encounter - Mandi Kwon MA - 07/10/2020 8:41 AM CDT Last visit requested medication was discussed: 06/23/2020 Upcoming appointment with provider: 08/25/2020 Last Rx: Amlodipine 5mg #30 +11 refills 05/18/2020 HCTZ 25mg outside provider NEW PHARMACY REQUESTING NEW PRESCRIPTIONS Requested Prescriptions Pending Prescriptions Disp Refills ??? amLODIPine (NORVASC) 5 MG tablet [Pharmacy Med Name: AMLODIPINE 5MG TABLET] 30 tablet 11 Sig: TAKE 1 TAB BY MOUTH EVERY MORNING FOR HYPERTENSION ??? hydroCHLOROthiazide (HYDRODIURIL) 25 MG tablet [Pharmacy Med Name: HYDROCHLOROTHIAZIDE 25MG TAB]30 tablet Sig: TAKE 1 TAB BY MOUTH ONCE DAILY FOR HYPERTENSION Labs: C-8 Component Latest Ref Rng & Units 06/23/2020 Sodium 135 - 145 mEq/L 130 (L) Potassium 3.5 - 5.1 mEq/L 4.1 Chloride 98 - 107 mEq/L 95 (L) CO2 22 - 29 mmol/L 24 Creatinine 0.4 - 1.2 mg/dL 0.7 BUN 5 - 25 mg/dL 15 Glucose 70 - 100 mg/dL 408 (HH) Calcium, Total,S 8.4 - 10.2 mg/dL 9.6 Vitals: BP Readings from Last 2 Encounters: 06/23/20 163/90 05/18/20 134/68 documented in this encounter Plan of Treatment Upcoming Encounters Date Type Specialty Care Team Description 01/18/2022 Telemedicine Family Medicine Sebastian Griffiths MD [address] [place] [phone] (Wo rk) documented as of this encounter Visit Diagnoses Diagnosis Hypertension, essential, benign Essential hypertension, benign documented in this encounter Care Teams Director Instructional Material Relationship Specialty Start Date End Date Sebastian Griffiths MD PCP - General 10/24/[address] [place] [address] documented as of this encounter
--- OUTSIDE RECORDS SUMMARY | 2021-12-09 21:26 | XMS_ITS | Encounter Summary ---
:1950 Author Organization [facility] Address [address] [place] [address] Care Team Providers Name Role Phone Sebastian Griffiths MD Primary Care Provider Reason for Visit Reason Comments Med Refill Encounter Details Date Type Department Care Team Description 08/06/2020 Refill SE Family Med Sebastian Griffiths, Gastroesophageal reflux dise ase without esophagitis; [address] [facility] Major depressive disorder, recurrent epi sode, moderate ([facility] [place] [place] [address] [facility] [phone] [place], [place] [id number] Social History Tobacco Use Types Packs/Day Years [...] or relatives? How often do you attend adventism or Never 2020 baptist services? Do you belong to any clubs or No 05/18/2020 organizations such as adventism groups, unions, fraternal or athletic groups, or [...] Telephone Encounter - Mandi Kwon MA - 08/10/2020 8:29 AM CDT Last visit requested medication was discussed: 06/23/2020 PHQ-9 0 SUMI-7 7 Upcoming appointment with provider: 08/25/2020 Last Rx: Pantoprazole 40mg #30 +11 refills 05/18/2020 Risperidone 2md #60 +5 refills 11/22/2019 New pharmacy requesting new prescriptions Requested Prescriptions Pending Prescriptions Disp Refills ??? pantoprazole (PROTONIX) 40 MG EC tablet [Pharmacy Med Name: PANTOPRAZOLE 40MG DR TABLET] 30 tablet 11 Sig: TAKE 1 TAB BY MOUTH ONCE DAILY FOR GERD ??? risperiDONE (RisperDAL) 2 MG tablet [Pharmacy Med Name: RISPERIDONE 2MG TABLET] 60 tablet 5 Sig: TAKE 1 TAB BY MOUTH TWICE A DAY Vitals: BP Readings from Last 2 Encounters: 06/23/20 163/90 05/18/20 134/68 documented in this encounter Plan of Treatment Upcoming Encounters Date Type Specialty Care Team Description 01/18/2022 Telemedicine Family Medicine Sebastian Griffiths MD [address] [place], [place] [phone] (Wo rk) documented as of this encounter Visit Diagnoses Diagnosis Gastroesophageal reflux disease without esophagitis Esophageal reflux Major depressive disorder, recurrent epi sode, moderate (HCC) Major depressive disorder, recurrent epi sode, moderate documented in this encounter Care Teams First Press Operator Relationship Specialty Start Date End Date Sebastian Griffiths MD PCP - General 10/24/[address] [place] [phone] documented as of this encounter
--- OUTSIDE RECORDS SUMMARY | 2021-12-09 21:26 | XMS_ITS | Encounter Summary ---
:1950 Author Organization [facility] Address [address] [place] [address] Care Team Providers Name Role Phone Sebastian Griffiths MD Primary Care Provider Reason for Visit Reason Comments Med Refill Encounter Details Date Type Department Care Team Description 10/08/2020 Refill SE Family Med Sebastian Griffiths MD Controlled type 2 diabetes mellitus with out complication, without long-term current use of insulin (HCC); [address] [facility] [address] [place] [address] [place] [address] [phone] (Wo rk) Social History Tobacco Use Types [...] do you attend restoration or Never 2020 congregation services? Do you belong to any clubs [...] Telephone Encounter - Tamie Kuhn MA - 10/08/2020 3:03 PM CDT Last visit in provider department: 10/05/2020 Last visit requested medication was discussed: 10/05/2020 Upcoming appointment with provider: 01/05/2021 Last Rx: JANUVIA 100MG SM Stool Softener/Laxative 8.6-50 MG Requested Prescriptions Pending Prescriptions Disp Refills ??? Januvia 100 MG tablet [Pharmacy Med Name: JANUVIA 100MG TABLET] 30 tablet 2 Sig: TAKE 1 TAB BY MOUTH ONCE DAILY ??? SM Stool Softener/Laxative 8.6-50 MG per tablet [Pharmacy Med Name: SM STOOL SFTNR STIM LAX TB100] 60 tablet 2 Sig: TAKE 2 TABS (17.2MG) BY MOUTH AT BEDTIME FOR CONSTIPATION Labs: Component Latest Ref Rng & Units 06/23/2020 Sodium 135 - 145 mEq/L 130 (L) Potassium 3.5 - 5.1 mEq/L 4.1 Chloride 98 - 107 mEq/L 95 (L) CO2 22 - 29 mmol/L 24 Creatinine 0.4 - 1.2 mg/dL 0.7 BUN 5 - 25 mg/dL 15 Glucose 70 - 100 mg/dL 408 (HH) Calcium, Total,S 8.4 - 10.2 mg/dL 9.6 Cholesterol 0 - 199 mg/dL 146 Triglycerides 0 - 149 mg/dL 419 (H) HDL 40 - 250 mg/dL 41 LDL Calculated 0 - 99 mg/dL see below Fasting? No Microalbumin,mg/day 0.0 - 16.6 mg/L 44.4 (H) Creatinine, Urine mg/dL 90 Microalb/Creat Ratio 0 - 24 mg/g 49 (H) Hemoglobin A1C 4.0 - 5.6 % A1C 9.1 (H) Vitals: BP Readings from Last 2 Encounters: 10/05/20 136/84 06/23/20 163/90 documented in this encounter Plan of Treatment Upcoming Encounters Date Type Specialty Care Team Description 01/18/2022 Telemedicine Family Medicine Sebastian Griffiths MD [address] [place] [phone] (Wo rk) documented as of this encounter Visit Diagnoses Diagnosis Controlled type 2 diabetes mellitus with out complication, without long-term current use of insulin (HCC) Chronic constipation Unspecified constipation documented in this encounter Care Teams Childcare Worker Relationship Specialty Start Date End Date Sebastian Griffiths MD PCP - General 10/24/[address] [place] [phone] documented as of this encounter
--- OUTSIDE RECORDS SUMMARY | 2021-12-09 21:26 | XMS_ITS | Encounter Summary ---
:1950 Author Organization [facility] Address [address] [place] [address] Care Team Providers Name Role Phone Sebastian Griffiths MD Primary Care Provider Reason for Visit Reason Onset Date Comments painful lump 10/14/2020 Encounter Details Date Type Department Care Team Description 10/14/2020 Telephone [facility] Sebastian Griffiths MD painful lump [address] [facility] [address] [place] [address] [place] [address] [phone] (Wo rk) Social History Tobacco Use Types [...] do you attend rastafari or Never 2020 confucianist services? Do you [...] Telephone Encounter - Sebastian Griffiths MD - 10/16/2020 11:34 AM CDT Noted, thanks. Telephone Encounter - Vianca Camejo RN - 10/15/2020 9:14 AM CDT Patient called back, states the lumps are a little bit bigger, asked patient to have the nurse at assisted living to look at her leg if there is concern she should call back and make an appointment, patient in agreement with plan. Telephone Encounter - Fiona Pena RN - 10/15/2020 9:01 AM CDT Unable to contact. Voicemail box not set up. Telephone Encounter - Sebastian Griffiths MD - 10/14/2020 6:21 PM CDT Try to get more info on anything that is changing on the right anterior morales lumps. I did not see orfeel much except a small 1-2 cm lump with no overlying skin changes at all. Perhaps her nurse can look at it also. Thanks. Telephone Encounter - Cole Vaughan - 10/14/2020 2:34 PM CDT Patient called and wanted a message sent to Dr. Griffiths. She said that the lump he found on her leg is causing a lot of pain. The oxycodone is not helping. Please advise. documented in this encounter Plan of Treatment Upcoming Encounters Date Type Specialty Care Team Description 01/18/2022 Telemedicine Family Medicine Sebastian Griffiths MD [address] [place] [address] (Wo rk) documented as of this encounter Visit Diagnoses Not on filedocumented in this encounter Care Teams Chief Meteorologist Relationship Specialty Start Date End Date Sebastian Griffiths MD PCP - General 10/24/[address] [place] [phone] documented as of this encounter
--- OUTSIDE RECORDS SUMMARY | 2021-12-09 21:26 | XMS_ITS | Encounter Summary ---
:1950 Author Organization [facility] Address [address] [place] [address] Care Team Providers Name Role Phone Sebastian Griffiths MD Primary Care Provider Reason for Visit Reason Onset Date Comments fax 10/29/2020 Encounter Details Date Type Department Care Team Description 10/29/2020 Telephone [facility] Sebastian Griffiths MD fax [address] [facility] [address] [place] [address] [place] [address] [phone] (Wo rk) Social History Tobacco Use Types [...] or relatives? How often do you attend roman catholic or Never 2020 catholic services? Do you belong to any clubs or No 05/18/2020 organizations such as roman catholic groups, unions, fraternal or athletic groups, [...] this encounter Miscellaneous Notes Telephone Encounter - Blanca Reyna RN - 11/05/2020 2:04 PM CDT Visit notes from 10/26/20 faxed to [facility] per request. Telephone Encounter - Tia Jasmine - 10/29/2020 1:02 PM CDT [facility] called stating Dr. Griffiths put a referral in on 10/26/20 for pt to see occupational therapy. [facility] is needing the visit note from that appt for the referral referral. Please fax to [phone]. documented in this encounter Plan of Treatment Upcoming Encounters Date Type Specialty Care Team Description 01/18/2022 Telemedicine Family Medicine Sebastian Griffiths MD [address] [place], [place] [address] (Wo rk) documented as of this encounter Visit Diagnoses Not on filedocumented in this encounter Care Teams Residential Property Consultant Relationship Specialty Start Date End Date Sebastian Griffiths MD PCP - General 10/24/[address] [place] [phone] documented as of this encounter
--- OUTSIDE RECORDS SUMMARY | 2021-12-09 21:26 | XMS_ITS | Encounter Summary ---
:1950 Author Organization [facility] Address [address] [place] [address] Care Team Providers Name Role Phone Sebastian Griffiths MD Primary Care Provider Encounter Details Date Type Department Care Team Description 10/26/2020 Orders Only [facility] Regan Velásquez, Right hip pain Orthopedics (Primary Dx) [address] [place] [address] [place] [address] [place] [address] Social History Tobacco Use Types [...] or relatives? How often do you attend mu-ism or Never 2020 baptist services? Do you belong to any clubs or No 05/18/2020 organizations such as mu-ism groups, unions, fraternal or athletic groups, or [...] 01/18/2022 Telemedicine Family Medicine Sebastian Griffiths MD [address] [place] [phone] (Wo rk) documented as of this encounter [...] AP pelvis with right hip radiograph Dece er 2015 Procedure Note Shima Hsu MD - [...] PROCEDURES documented in this encounter Visit Diagnoses Diagnosis Right hip pain - Primary Pain in joint, pelvic region and thigh documented in this encounter Care Teams Bundle Shaker Relationship Specialty Start Date End Date Sebastian Griffiths MD PCP - General 10/24/[address] [place] [phone] documented as of this encounter
--- OUTSIDE RECORDS SUMMARY | 2021-12-09 21:26 | XMS_ITS | Encounter Summary ---
:[address] [facility] Address [address] [place] [address] Care Team Providers Name Role Phone Sebastian Griffiths MD Primary Care Provider Reason for Visit Reason Onset Date Comments Med Refill 09/16/2020 Encounter Details Date Type Department Care Team Description 09/16/2020 Telephone SE Family Med Sebastian Griffiths MD Med Refill [address] [facility] [address] [place] [address] [place] [address] [phone] (Wo rk) Social History Tobacco Use Types [...] do you attend amish or Never 2020 baptist services? Do you [...] this encounter Miscellaneous Notes Telephone Encounter - Mili Rivera MA - 09/16/2020 1:24 PM CDT Duplicate request, see refill encounter dated 09/15/2020 Telephone Encounter - Marquita Cabral - 09/16/2020 12:11 PM CDT Pharmacy called and Pt is out. Pt is taking the max does per facility. oxyCODONE (ROXICODONE) 5 MG Thrsmita White [place] documented in this encounter Plan of Treatment Upcoming Encounters Date Type Specialty Care Team Description 01/18/2022 Telemedicine Family Medicine Sebastian Griffiths MD [address] [place], [place] [address] (Wo rk) documented as of this encounter Visit Diagnoses Not on filedocumented in this encounter Care Teams Tag Writer Relationship Specialty Start Date End Date Sebastian Griffiths MD PCP - General 10/24/[address] [place] [phone] documented as of this encounter
--- OUTSIDE RECORDS SUMMARY | 2021-12-09 21:26 | XMS_ITS | Encounter Summary ---
:1950 Author Organization [facility] Address [address] [place] [address] Care Team Providers Name Role Phone Sebastian Griffiths MD Primary Care Provider Reason for Visit Reason Comments Med Refill Encounter Details Date Type Department Care Team Description 09/24/2020 Refill SE Family Med Sebastian Griffiths MD Chronic pain syndrome; [address] [facility] [address] Hypertension, essential, [place] [address] [place] [address] [phone] (Wo rk) Social History Tobacco Use Types [...] or relatives? How often do you attend restorationist or Never 2020 mandaen services? Do you belong to any clubs or No 05/18/2020 organizations such as restorationist groups, unions, fraternal or athletic groups, or [...] Telephone Encounter - Lindsay Ny LPN - 09/24/2020 10:08 AM CDT Last visit in provider department: 06/23/2020 Last visit requested medication was discussed: 06/23/2020 Upcoming appointment with provider: 10/05/2020 Last Rx: Oxycodone 5 mg 09/16/2020 # 28 ,0 refills hydrochlorothiazide 25 mg 07/10/2020 # 30, 2 refills Amlodipine 5 mg 07/10/2020 # 30, 2 refills Requested Prescriptions Pending Prescriptions Disp Refills ??? oxyCODONE (ROXICODONE) 5 MG immediate release tablet [Pharmacy Med Name: oxyCODONE HCl 5 MG OralTablet (ROXICODONE)] 28 tablet Sig: TAKE 1 TABLET BY MOUTH EVERY 6 HOURS NEEDED FOR MODERATE TO SEVEREPAIN. BEGIN TO TAPER DOWN 1 WEEK PRESCRIPTION ??? hydroCHLOROthiazide (HYDRODIURIL) 25 MG tablet [Pharmacy Med Name: HYDROCHLOROTHIAZIDE 25MG TAB]30 tablet 2 Sig: TAKE 1 TAB BY MOUTH ONCE DAILY FOR HYPERTENSION ??? amLODIPine (NORVASC) 5 MG tablet [Pharmacy Med Name: AMLODIPINE 5MG TABLET] 30 tablet 2 Sig: TAKE 1 TAB BY MOUTH EVERY MORNING FOR HYPERTENSION 10/21/2019 Opioid agreement signed Labs: Component Latest Ref Rng & Units [...] 01/18/2022 Telemedicine Family Medicine Sebastian Griffiths MD [address] [place] [address] (Wo rk) documented as of this encounter Visit Diagnoses Diagnosis Chronic pain syndrome Hypertension, essential, benign Essential hypertension, benign documented in this encounter Care Teams Pulverizer Tender Relationship Specialty Start Date End Date Sebastian Griffiths MD PCP - General 10/24/[address] [place] [phone] documented as of this encounter
--- OUTSIDE RECORDS SUMMARY | 2021-12-09 21:26 | XMS_ITS | Encounter Summary ---
:1950 Author Organization [facility] Address [address] [place] [address] Care Team Providers Name Role Phone Sebastian Griffiths MD Primary Care Provider Reason for Visit Reason Comments Hip Pain Right Encounter Details Date Type Department Care Team Description 10/29/2020 Office Visit [facility] Regan Velásquez, Trochante keanu bursitis Orthopedics of right hip (Primary [address]) [place] [address] [place] [phone] Social History Tobacco Use Types Packs/Day Years [...] or relatives? How often do you attend yarsanism or Never 2020 alevism services? Do you belong to any clubs or No 05/18/2020 organizations such as yarsanism groups, unions, fraternal or athletic groups, or [...] Reading Time Taken Comments Blood Pressure 140/80 10/29/2020 1:25 PM CDT Pulse - - Temperature - - Respiratory Rate - - Oxygen Saturation - - Inhaled Oxygen Concentration - - Weight 106 kg (233 lb 11 oz) 10/29/2020 1:25 PM CDT Height 162.7 cm (5' 4.06) 10/29/2020 1:25 PM CDT Body Mass Index 40.04 10/29/2020 1:25 PM CDT documented in this encounter Progress Notes Regan Velásquez MD - 10/29/2020 1:30 PM CDT Established Patient Note Chief Complaint: Hip pain, right. History: 70 y.o. female presents for evaluation of right hip pain. The patient is established in orthopaedics. The pain started with no known precipitating injury or known cause, approximately 1 year ago. Hip pain is aching, sharp, episodic, and unexpected, associated with a sense of instability and fear of falling, causing night pain and sleep disruptions and with an intensity of 10/10. Pain is located primarily laterally. Previous treatments have included rest, self- limited activity and Oxycodone. Denies numbness/tingling in the leg. She has been using a wheeled walker. Objective: GENERAL: Mental status is oriented to time, place, and person and alert and coherent. Affect is appropriate. Appearance of medium build. Gait: antalgic and ambulates with assistive device. MUSCULOSKELETAL: Right Hip/leg: Skin with no overlying lesions or ulcers. Areas tender to palpation: over the lateral trochanter soft tissues moderately. ROM: IR 35 degrees, ER 50 degrees. Pain is not reproduced with hip rotation. Ligaments: pelvis is ligamentously stable to lateral compression. Strength: 4/5 with hip flexion. Sensation in the distal leg is normal to light touch. Vascular exam shows distal leg skin adequately perfused/warm with no significant edema. Diagnostic Studies: The pertinent right hip x-ray images and report, dated 10/29/2020, were independently interpreted, and also reviewed with the patient. Mild bilaterally symmetric hip joint space narrowing. Small lateral acetabular marginal osteophytes.No lytic lesions or acute injury patterns. Assessment: Encounter Diagnosis Name Primary? Trochanteric bursitis of right hip, new problem, exacerbation Yes Plan: I had a long discussion with the patient today regarding their primary problem. Simple relevant anatomy was discussed to better help the patient understand my diagnostic opinions and the spectrum of treatment alternatives. No evident surgical indications. In my opinion, her pain source is in the soft tissues around the hip, not the actual hip joint itself. I would not recommend narcotic pain medicines for this problem. I recommended a cortisone injection which she declined today. With her past experience with cortisone, she does not find them to be helpful. I recommended that she work with physicaltherapy, which she refused. I tried to instruct her on IT band/piriformis stretches in the clinic today, but she refused to try any stretches. Fall precautions discussed. She specifically is requestinga 'muscle relaxer.' With her medical comorbidities and with her medication list, I am not comfortable prescribing this type of medication for this diagnosis in this patient. I recommended that her request be reviewed by her primary medical provider who knows her better, to determine if that would be an appropriate treatment alternative. documented in this encounter Plan of Treatment Upcoming Encounters Date Type Specialty Care Team Description 01/18/2022 Telemedicine Family Medicine Sebastian Griffiths MD [address] [place] [phone] (Wo rk) documented as of this encounter Visit Diagnoses Diagnosis Trochanteric bursitis of right hip - Noreen nieto documented in this encounter Care Teams Diesel Fleet Mechanic Relationship Specialty Start Date End Date Sebastian Griffiths MD PCP - General 10/24/[address] [place] [phone] documented as of this encounter
--- OUTSIDE RECORDS SUMMARY | 2021-12-09 21:26 | XMS_ITS | Encounter Summary ---
:1950 Author Organization [facility] Address [address] [place] [address] Care Team Providers Name Role Phone Sebastian Griffiths MD Primary Care Provider Reason for Visit Reason Onset Date Comments DME PA 07/08/2020 FreeStyle Kristie 14 D ay Russell device DME PA 07/08/2020 Assure Kayden Lancets Encounter Details Date Type Department Care Team Description 07/08/2020 Refill SE Family Med Sebastian Griffiths MD Uncontrolled type [address] [place] [address] [place] [address] [place] [address] hyperglycemia (HCC) [phone] (Wo rk) Social History Tobacco Use Types [...] or relatives? How often do you attend druze or Never 2020 buddhist services? Do you belong to any clubs or No 05/18/2020 organizations such as druze groups, unions, fraternal or athletic groups, or [...] this encounter Miscellaneous Notes Telephone Encounter - Ying C Hien, BSN - 07/14/2020 10:10 AM CDT Insurance does not cover. Pended new medications per insurance. Please advise. Telephone Encounter - Magdalena Meadows LPN - 07/09/2020 7:43 AM CDT Celestina Parry Received fax that this requires a DME PA as well. Thanks. Telephone Encounter - Magdalena Meadows LPN - 07/08/2020 3:54 PM CDT Acupera 14 Day Russell device Received fax to complete DME PA for this DME. Please assist Patient with PA. Thanks. [facility] ID: [id number] documented in this encounter Plan of Treatment Upcoming Encounters Date Type Specialty Care Team Description 01/18/2022 Telemedicine Family Medicine Sebastian Griffiths MD [address] [place] [phone] (Wo rk) documented as of this encounter Visit Diagnoses Diagnosis Uncontrolled type 2 diabetes mellitus wi th hyperglycemia (HCC) documented in this encounter Care Teams Mental Health Advanced Practice Nurse Relationship Specialty Start Date End Date Sebastian Griffiths MD PCP - General 10/24/[address] [place] [phone] documented as of this encounter
--- OUTSIDE RECORDS SUMMARY | 2021-12-09 21:26 | XMS_ITS | Encounter Summary ---
:[address] [facility] Address [address] [place] [address] Care Team Providers Name Role Phone Sebastian Griffiths MD Primary Care Provider Encounter Details Date Type Department Care Team Description 08/06/2020 Immunization Family Medicine [address] [place] [address] Social History Tobacco Use Types Packs/Day Years [...] or relatives? How often do you attend mosque or Never 2020 islam services? Do you belong to any clubs or No 05/18/2020 organizations such as mosque groups, unions, fraternal or athletic groups, or [...] Telemedicine Family Medicine Sebastian Griffiths MD [address] [place] [address] (Wo rk) documented as of this encounter Visit Diagnoses Not on filedocumented in this encounter Care Teams External Auditor Relationship Specialty Start Date End Date Sebastian Griffiths MD PCP - General 10/24/17 [address] [place] [address] documented as of this encounter
--- OUTSIDE RECORDS SUMMARY | 2021-12-09 21:26 | XMS_ITS | Encounter Summary ---
:1950 Author Organization [facility] Address [address] [place] [address] Care Team Providers Name Role Phone Sebastian Griffiths MD Primary Care Provider Reason for Visit Reason Onset Date Comments painful lump on morales 10/20/2020 Encounter Details Date Type Department Care Team Description 10/20/2020 [facility] MD painful lump on morales [address] [place] [address] [place] [address] [phone] Social History Tobacco Use Types Packs/Day Years [...] do you attend zoroastrianism or Never 2020 spiritism services? Do you [...] this encounter Miscellaneous Notes Telephone Encounter - Annabella Marroquin RN - 10/20/2020 8:55 AM CDT Patient calls today requesting an appointment for a painful lump on her morales. She states her pain is10/10. Patient has been complaining about this lump for several days. I asked if the lump has changed and she stated she did not know. She states she can not see the lump. Assisted with scheduling this appointment. documented in this encounter Plan of Treatment Upcoming Encounters Date Type Specialty Care Team Description 01/18/2022 Telemedicine Family Medicine Sebastian Griffiths MD [address] [place], [place] [address] (Wo rk) documented as of this encounter Visit Diagnoses Not on filedocumented in this encounter Care Teams Head Baker Relationship Specialty Start Date End Date Sebastian Griffiths MD PCP - General 10/24/[address] [place] [phone] documented as of this encounter
--- OUTSIDE RECORDS SUMMARY | 2021-12-09 21:26 | XMS_ITS | Encounter Summary ---
:1950 Author Organization [facility] Address [address] [place] [address] Care Team Providers Name Role Phone Sebastian Griffiths MD Primary Care Provider Reason for Visit Reason Comments Med Refill Encounter Details Date Type Department Care Team Description 10/21/2020 Refill SE Family Med Sebastian Griffiths MD Chronic pain syndrome [address] [facility] [address] [place] [address] [place] [address] [phone] (Wo rk) Social History Tobacco Use Types [...] do you attend confucianism or Never 2020 methodist services? Do you belong to any clubs [...] Telephone Encounter - Jayshree Rodriguez MA - 10/23/2020 6:40 AM CDT Last visit in provider department: 10/05/2020 Last visit requested medication was discussed: 10/05/20 Upcoming appointment with provider: 01/05/2021 Last Rx: 10/06/20, #90, 0 refills Requested Prescriptions Pending Prescriptions Disp Refills ??? oxyCODONE (ROXICODONE) 5 MG immediate release tablet [Pharmacy Med Name: oxyCODONE HCl 5 MG OralTablet (ROXICODONE)] 90 tablet Sig: TAKE 1 TABLET (5 MG TOTAL) BY MOUTH EVERY 6 (SIX) HOURS IF NEEDED FOR MODERATE PAIN MAX OF 3 TABS DAILY documented in this encounter Plan of Treatment Upcoming Encounters Date Type Specialty Care Team Description 01/18/2022 Telemedicine Family Medicine Sebastian Griffiths MD [address] [place], [place] [address] (Wo rk) documented as of this encounter Visit Diagnoses Diagnosis Chronic pain syndrome documented in this encounter Care Teams Newsstand Vendor Relationship Specialty Start Date End Date Sebastian Griffiths MD PCP - General 10/24/17 [address] [place] [address] documented as of this encounter
--- OUTSIDE RECORDS SUMMARY | 2021-12-09 21:26 | XMS_ITS | Encounter Summary ---
:1950 Author Organization [facility] Address [address] [place] [address] Care Team Providers Name Role Phone Sebastian Griffiths MD Primary Care Provider Reason for Visit Reason Comments Med Refill Encounter Details Date Type Department Care Team Description 07/27/2020 Refill SE Family Med Sebastian Griffiths MD Controlled type 2 diabetes mellitus with out complication, without long-term current use of insulin ([facility]); [address] [facility] [address] Chronic constipation; [place] [address] [place] [address] Major depressive disorder, recurrent epi sode, moderate (HCC) [phone] (Wo rk) Social History Tobacco Use Types [...] do you attend confucianist or Never 2020 church services? Do you [...] Telephone Encounter - Jayshree Rodriguez MA - 07/29/2020 7:33 AM CDT Last visit in provider department: 06/23/20 Last visit requested medication was discussed: 06/23/20 Upcoming appointment with provider: 08/25/2020 Last Rx: SITagliptin (Januvia) 100 MG tablet 06/23/20, #90, 0 refills DULoxetine (CYMBALTA) [address] capsule 05/18/20, #60, 5 refills STOOL SOFTENER/LAXATIVE 50-8.6 MG per tablet 09/30/19, #180, 3 refills Patient using different pharmacy. Requested Prescriptions Pending Prescriptions Disp Refills ??? Januvia 100 MG tablet [Pharmacy Med Name: JANUVIA 100MG TABLET] 30 tablet Sig: TAKE 1 TAB BY MOUTH ONCE DAILY ??? SM Stool Softener/Laxative 8.6-50 MG per tablet [Pharmacy Med Name: SM STOOL SFTNR STIM LAX TB100] 60 tablet Sig: TAKE 2 TABS (17.2MG) BY MOUTH AT BEDTIME FOR CONSTIPATION ??? DULoxetine (CYMBALTA) [address] capsule [Pharmacy Med Name: DULOXETINE 60MG DR CAPSULE] 60 capsule 5 Sig: TAKE 2 CAPS (120MG) BY MOUTH ONCE DAILY FOR DEPRESSION Labs: Component Latest Ref Rng & Units 06/23/2020 Sodium 135 - 145 mEq/L 130 (L) Potassium 3.5 - 5.1 mEq/L 4.1 Chloride 98 - 107 mEq/L 95 (L) CO2 22 - 29 mmol/L 24 Creatinine 0.4 - 1.2 mg/dL 0.7 BUN 5 - 25 mg/dL 15 Glucose 70 - 100 mg/dL 408 (HH) Calcium, Total,S 8.4 - 10.2 mg/dL 9.6 Component Latest Ref Rng & Units 06/23/2020 Hemoglobin A1C 4.0 - 5.6 % A1C 9.1 (H) Component Latest Ref Rng & Units 06/23/2020 Cholesterol 0 - 199 mg/dL 146 Triglycerides 0 - 149 mg/dL 419 (H) HDL 40 - 250 mg/dL 41 LDL Calculated 0 - 99 mg/dL see below Fasting? No Component Latest Ref Rng & Units 06/23/2020 Microalbumin,mg/day 0.0 - 16.6 mg/L 44.4 (H) Creatinine, Urine mg/dL 90 Microalb/Creat Ratio 0 - 24 mg/g 49 (H) Vitals: BP Readings from Last 2 Encounters: 06/23/20 163/90 05/18/20 134/68 documented in this encounter Plan of Treatment Upcoming Encounters Date Type Specialty Care Team Description 01/18/2022 Telemedicine Family Medicine Sebastian Griffiths MD [address] [place], [place] [address] (Wo rk) documented as of this encounter Visit Diagnoses Diagnosis Controlled type 2 diabetes mellitus with out complication, without long-term current use of insulin (HCC) Chronic constipation Unspecified constipation Major depressive disorder, recurrent epi sode, moderate (HCC) Major depressive disorder, recurrent epi sode, moderate documented in this encounter Care Teams Preparation Center Coordinator Relationship Specialty Start Date End Date Sebastian Griffiths MD PCP - General 10/24/17 [address] [place], [place] [phone] documented as of this encounter
--- OUTSIDE RECORDS SUMMARY | 2021-12-09 21:26 | XMS_ITS | Encounter Summary ---
:1950 Author Organization [facility] Address [address] [place] [address] Care Team Providers Name Role Phone Sebastian Griffiths MD Primary Care Provider Encounter Details Date Type Department Care Team Description 08/24/2020 Telephone NW Family Medicine Sebastian Griffiths MD [address] [facility] [address] [place] [address] [place] [address] [phone] (Wo rk) Social History Tobacco Use Types [...] or relatives? How often do you attend christianity or Never 2020 sabianist services? Do you belong to any clubs or No 05/18/2020 organizations such as christianity groups, unions, fraternal or athletic groups, or [...] Telephone Encounter - Sebastian Griffiths MD - 08/24/2020 5:50 PM CDT Noted, thanks. Telephone Encounter - Annabella Marroquin RN - 08/24/2020 3:10 PM CDT Patient calls and states she doesn't want to stick herself when testing her blood sugars. She states she an appointment tomorrow with her provider and would like to discuss her options. documented in this encounter Plan of Treatment Upcoming Encounters Date Type Specialty Care Team Description 01/18/2022 Telemedicine Family Medicine Sebastian Griffiths MD [address] [place], [place] [address] (Wo rk) documented as of this encounter Visit Diagnoses Not on filedocumented in this encounter Care Teams Microsoft Bi Architect Relationship Specialty Start Date End Date Sebastian Griffiths MD PCP - General 10/24/17 [address] [place] [address] documented as of this encounter
--- OUTSIDE RECORDS SUMMARY | 2021-12-09 21:26 | XMS_ITS | Encounter Summary ---
:1950 Author Organization [facility] Address [address] [place] [address] Care Team Providers Name Role Phone Sebastian Griffiths MD Primary Care Provider Reason for Visit Reason Onset Date Comments Med Refill 10/06/2020 Encounter Details Date Type Department Care Team Description 10/06/2020 Refill SE Family Med Sebastian Griffiths MD Chronic pain syndrome [address] [facility] [address] [place] [address] [place] [address] [phone] (Wo rk) Social History Tobacco Use Types [...] do you attend gnosticist or Never 2020 rastafarian services? Do you [...] encounter Miscellaneous Notes Telephone Encounter - Tamie Stewart - 10/06/2020 2:11 PM CDT This has been addressed with PCP thank you Telephone Encounter - Mili Rivera MA - 10/06/2020 1:38 PM CDT Patient had office visit on 10/05/2020, script was done for oxycodone 5 mg, script was printed. Per pharmacy patient indicated she did not received printed script. Pending, please send to [facility] Telephone Encounter - Tamie Stewart - 10/06/2020 10:48 AM CDT Pt calling again Telephone Encounter - Elie Coley - 10/06/2020 9:33 AM CDT Pt was seen yesterday. Did not get her oxycodone. Please fax to pharmacy. documented in this encounter Plan of Treatment Upcoming Encounters Date Type Specialty Care Team Description 01/18/2022 Telemedicine Family Medicine Sebastian Griffiths MD [address] [place], [place] [address] (Wo rk) documented as of this encounter Visit Diagnoses Diagnosis Chronic pain syndrome documented in this encounter Care Teams Rigging Man Relationship Specialty Start Date End Date Sebastian Griffiths MD PCP - General 10/24/17 [address] [place], [place] [phone] documented as of this encounter
--- OUTSIDE RECORDS SUMMARY | 2021-12-09 21:26 | XMS_ITS | Encounter Summary ---
:1950 Author Organization [facility] Address [address] [place] [address] Care Team Providers Name Role Phone Sebastian Griffiths MD Primary Care Provider Reason for Visit Reason Comments Med Refill Encounter Details Date Type Department Care Team Description 09/15/2020 Refill SE Family Med Iwona Rivera, DNP, Chronic pain syndrome [address] [facility] HORTICULTURAL AGENT, [place] [address] Social History Tobacco Use Types Packs/Day Years [...] do you attend pentecostal or Never 2020 judaism services? Do you belong to any clubs [...] Encounter - Mili Rivera MA - 09/16/2020 1:51 PM CDT Oxycodone 5 mg, 30 tablet, 0 refill, done on 09/11/2020. Last visit with PCP on 06/23/2020, next schedule visit on 10/05/2020. Per note dated . Pharmacy called and Pt is out. Pt is taking the max does per facility. oxyCODONE (ROXICODONE) 5 MG documented in this encounter Plan of Treatment Upcoming Encounters Date Type Specialty Care Team Description 01/18/2022 Telemedicine Family Medicine Sebastian Griffiths MD [address] [place], [place] [address] (Wo rk) documented as of this encounter Visit Diagnoses Diagnosis Chronic pain syndrome documented in this encounter Care Teams Visual Stylist Relationship Specialty Start Date End Date Sebastian Griffiths MD PCP - General 10/24/[address] [place] [phone] documented as of this encounter
--- OUTSIDE RECORDS SUMMARY | 2021-12-09 21:26 | XMS_ITS | Encounter Summary ---
:1950 Author Organization [facility] Address [address] [place] [address] Care Team Providers Name Role Phone Sebastian Griffiths MD Primary Care Provider Reason for Visit Reason Comments Med Refill Encounter Details Date Type Department Care Team Description 09/30/2020 Refill SE Family Med Sebastian Griffiths MD Insomnia, unspecified [address] [facility] [address] [place] [address] [place] [address] [phone] (Wo rk) Social History Tobacco Use Types [...] do you attend advent or Never 2020 restorationist services? Do you [...] Telephone Encounter - Mandi Kwon MA - 10/01/2020 2:52 PM CDT Last visit requested medication was discussed: 06/23/2020 Upcoming appointment with provider: 10/05/2020 Last Rx: #30 +2 refills 07/09/2020 Requested Prescriptions Pending Prescriptions Disp Refills ??? zolpidem (AMBIEN) 5 MG tablet [Pharmacy Med Name: ZOLPIDEM 5MG TABLET] 30 tablet Sig: TAKE ONE TABLET BY MOUTH EVERY DAY AT BEDTIME NEEDED FOR SLEEP Vitals: BP Readings from Last 2 Encounters: 06/23/20 163/90 05/18/20 134/68 documented in this encounter Plan of Treatment Upcoming Encounters Date Type Specialty Care Team Description 01/18/2022 Telemedicine Family Medicine Sebastian Griffiths MD [address] [place], [place] [address] (Wo rk) documented as of this encounter Visit Diagnoses Diagnosis Insomnia, unspecified type documented in this encounter Care Teams Litigation Partner Relationship Specialty Start Date End Date Sebastian Griffiths MD PCP - General 10/24/17 [address] [place] [address] documented as of this encounter
--- OUTSIDE RECORDS SUMMARY | 2021-12-09 21:26 | XMS_ITS | Encounter Summary ---
:1950 Author Organization [facility] Address [address] [place] [address] Care Team Providers Name Role Phone Sebastian Griffiths MD Primary Care Provider Reason for Visit Reason Onset Date Comments Med Refill 07/15/2020 Encounter Details Date Type Department Care Team Description 07/15/2020 Refill SE Family Med Sebastian Griffiths MD Generalized anxiety [address] disorder (Primary Dx) [place] [address] [place] [address] [phone] (Wo rk) Social History Tobacco Use Types [...] do you attend druze or Never 2020 taoism services? Do you [...] Telephone Encounter - Mili Rivera MA - 07/22/2020 12:28 PM CDT Providers note informed to staff. Telephone Encounter - Yanna Cheng LPN - 07/22/2020 11:16 AM CDT Left message for staff to call back. Telephone Encounter - Yanna Cheng LPN - 07/22/2020 11:13 AM CDT Patient is in assisted living at [facility]. Phone number is [phone]. Will need to advise staff, since patient is not reachable at number listed in chart. Telephone Encounter - Yanna Cheng LPN - 07/21/2020 9:31 AM CDT 3rd attempt. No answer. Voicemail not set up. Telephone Encounter - Yanna Cheng LPN - 07/20/2020 11:02 AM CDT Attempted to contact patient. No answer. Voicemail not set up. Telephone Encounter - Yanna Cheng LPN - 07/16/2020 9:40 AM CDT Attempted to contact patient. No answer. Voicemail not set up. Telephone Encounter - Sebastian Griffiths MD - 07/15/2020 4:55 PM CDT Instead of two 0.5mg tablets three times a day, I decreased her dose to ONE 0.5 mg tab three times aday. Let her [facility] staff know that this is because she is also on chronic opioid medication. Thanks. Telephone Encounter - Vianca Camejo RN - 07/15/2020 10:31 AM CDT Patient calls, patient would like refill of her Ativan, this was the dosage she asked for. This medication was not found on list but did pend medication per patient's request. documented in this encounter Plan of Treatment Upcoming Encounters Date Type Specialty Care Team Description 01/18/2022 Telemedicine Family Medicine Sebastian Griffiths MD [address] [place], [place] [address] (Wo rk) documented as of this encounter Visit Diagnoses Diagnosis Generalized anxiety disorder - Primary documented in this encounter Care Teams Junior Account Manager Relationship Specialty Start Date End Date Sebastian Griffiths MD PCP - General 10/24/17 [address] [place] [address] documented as of this encounter
--- OUTSIDE RECORDS SUMMARY | 2021-12-09 21:26 | XMS_ITS | Encounter Summary ---
:1950 Author Organization [facility] Address [address] [place] [address] Care Team Providers Name Role Phone Sebastian Griffiths MD Primary Care Provider Reason for Visit Reason Comments Med Refill Encounter Details Date Type Department Care Team Description 07/21/2020 Refill SE Family Med Sebastian Griffiths MD Allergic rhinitis, unspecified seasonali ty, unspecified trigger; [address] Primary open angle glaucoma (POAG) of amelia th eyes, [place] [address] [place] [address] [phone] (Wo rk) Social History Tobacco Use Types [...] do you attend scientology or Never 2020 rastafari services? Do you [...] Telephone Encounter - Tamie Kuhn MA - 07/21/2020 1:06 PM CDT Last visit in provider department: 06/23/2020 Last visit requested medication was discussed: 06/23/2020 Upcoming appointment with provider: 08/25/2020 Last Rx: FLUTICASONE 50MCG- 05/18/2020- 16g with 6 refills Requested Prescriptions Pending Prescriptions Disp Refills ??? latanoprost (XALATAN) 0.005 % ophthalmic solution [Pharmacy Med Name: LATANOPROST 0.005% OPHTH SOLN] 2.5 mL Sig: INSTILL 1 DROP IN BOTH EYES AT BEDTIME FOR GLAUCOMA ??? fluticasone (FLONASE) 50 MCG/ACT nasal spray [Pharmacy Med Name: FLUTICASONE 50MCG/ACT SPRAY] 16g 6 Sig: USE 2 SPRAYS IN EACH NOSTRIL EVERY MORNING FOR DRY NOSE ??? dorzolamide-timolol (COSOPT) 22.3-6.8 MG/ML ophthalmic solution [Pharmacy Med Name: DORZOLAMIDE/TIMOLOL OPHTH SOLN] 10 mL 11 Sig: INSTILL 1 DROP IN BOTH EYES TWICE A DAY FOR GLAUCOMA documented in this encounter Plan of Treatment Upcoming Encounters Date Type Specialty Care Team Description 01/18/2022 Telemedicine Family Medicine Sebastian Griffiths MD [address] [place], [place] [address] (Wo rk) documented as of this encounter Visit Diagnoses Diagnosis Allergic rhinitis, unspecified seasonali ty, unspecified trigger Primary open angle glaucoma (POAG) of amelia th eyes, severe stage documented in this encounter Care Teams Horticultural Agent Relationship Specialty Start Date End Date Sebastian Griffiths MD PCP - General 10/24/[address] [place] [phone] documented as of this encounter
--- OUTSIDE RECORDS SUMMARY | 2021-12-09 21:26 | XMS_ITS | Encounter Summary ---
:1950 Author Organization [facility] Address [address] [place] [address] Care Team Providers Name Role Phone Sebastian Griffiths MD Primary Care Provider Encounter Details Date Type Department Care Team Description 07/16/2020 Immunization Family Medicine [address] [place] [address] Social History Tobacco Use Types Packs/Day Years [...] do you attend adventist or Never 2020 hoahaoism services? Do you belong to any clubs [...] Telemedicine Family Medicine Sebastian Griffiths MD [address] [place] [address] (Wo rk) documented as of this encounter Visit Diagnoses Not on filedocumented in this encounter Care Teams Brickmason Helper Relationship Specialty Start Date End Date Sebastian Griffiths MD PCP - General 10/24/17 [address] [place] [address] documented as of this encounter
--- OUTSIDE RECORDS SUMMARY | 2021-12-09 21:26 | XMS_ITS | Encounter Summary ---
:1950 Author Organization [facility] Address [address] [place] [address] Care Team Providers Name Role Phone Sebastian Griffiths MD Primary Care Provider Encounter Details Date Type Department Care Team Description 08/25/2020 Office Visit [facility] Sebastian Griffiths, Canceled (Patient: [address] [place] [address] Transportation) [phone] [place] [address] Social History Tobacco Use Types [...] do you attend nondenominational or Never 2020 muslim services? Do you belong to any clubs [...] 01/18/2022 Telemedicine Family Medicine Sebastian Griffiths MD [address] [place] [address] (Wo rk) documented as of this encounter Visit Diagnoses Not on filedocumented in this encounter Care Teams Cushion Gum Applicator Relationship Specialty Start Date End Date Sebastian Griffiths MD PCP - General 10/24/[address] [place] [id number] documented as of this encounter
--- OUTSIDE RECORDS SUMMARY | 2021-12-09 21:26 | XMS_ITS | Encounter Summary ---
:1950 Author Organization [facility] Address [address] [place] [address] Care Team Providers Name Role Phone Sebastian Griffiths MD Primary Care Provider Encounter Details Date Type Department Care Team Description 09/15/2020 Telephone NW Family Medicine Sebastian Griffiths MD [address] [facility] [address] [place] [address] [place] [address] [phone] (Wo rk) Social History Tobacco Use Types [...] do you attend druze or Never 2020 muslim services? Do you [...] Telephone Encounter - Sebastian Griffiths MD - 09/18/2020 12:00 PM CDT Discussed patient with Rochelle. Patient has made several recent trips to the [place] area since her recently . She did return with some missing doses of Ambien and oxycodone that she cannot account for. My plan is to continue with short refills through her taper, which she will not like. She does have a history of having injuries near the time of complete taper so will both be awareof that if it happens again. We will keep me informed of any other developments that she is seeing so we could continue appropriate care for patient. Telephone Encounter - Annabella Marroquin RN - 09/15/2020 10:32 AM CDT Rochelle chowdhury RN at [facility] in [place] would like a call back from provider regarding hermedications. She has several concerns she would like to discuss. She can be reached at [phone] 8 am to 4:30 PM . Thanks documented in this encounter Plan of Treatment Upcoming Encounters Date Type Specialty Care Team Description 01/18/2022 Telemedicine Family Medicine Sebastian Griffiths MD [address] [place], [place] [address] (Wo rk) documented as of this encounter Visit Diagnoses Not on filedocumented in this encounter Care Teams Captain Fishing Vessel Relationship Specialty Start Date End Date Sebastian Griffiths MD PCP - General 10/24/17 [address] [place], [place] [phone] documented as of this encounter
--- OUTSIDE RECORDS SUMMARY | 2021-12-09 21:27 | XMS_ITS | Encounter Summary ---
:1950 Author Organization [facility] Address [address] [place] [address] Care Team Providers Name Role Phone Sebastian Griffiths MD Primary Care Provider Reason for Visit Reason Onset Date Comments Med PA 04/15/2020 hydrOXYzine HCl 25MG tablets Encounter Details Date Type Department Care Team Description 04/15/2020 Telephone [facility] Med Sebastina Griffiths, Med PA (hydrOXYzine HCl [address] 25MG tablets) [place] [address] [place] [address] [place], [place] [address] Social History Tobacco Use Types Packs/Day Years Used Date Current Every Day Smoker Cigarettes 0.25 40 Smokeless Tobacco: Never Used Alcohol Use Standard [...] or relatives? How often do you attend hindu or Never 2020 hinduism services? Do you belong to any clubs or No 05/18/2020 organizations such as hindu groups, unions, fraternal or athletic groups, or [...] or getting things needed for daily living? Sex Assigned at Date Recorded Not on file documented as of this encounter Miscellaneous Notes Telephone Encounter - Cat Adair MA - 04/15/2020 1:18 PM CST PA approved until 03/19/2021. Pharmacy notified. ANALYST Telephone Encounter - Magdalena Meadows LPN - 04/15/2020 7:34 AM CST hydrOXYzine HCl 25MG tablets PA completed per CMM, sent to insurance plan Scott: [id number] [facility] Medicaid BIN: [id number] PCN: [id number] ID: [id number] ANALYST documented in this encounter Plan of Treatment Upcoming Encounters Date Type Specialty Care Team Description 01/18/2022 Telemedicine Family Medicine Sebastian Griffiths MD [address] [place], [place] [address] (Wo rk) documented as of this encounter Visit Diagnoses Not on filedocumented in this encounter Care Teams Planing Machine Operator Relationship Specialty Start Date End Date Sebastian Griffiths MD PCP - General 10/24/[address] [place] [address] documented as of this encounter
--- OUTSIDE RECORDS SUMMARY | 2021-12-09 21:27 | XMS_ITS | Encounter Summary ---
:[address] [facility] Address [address] [place] [address] Care Team Providers Name Role Phone Sebastian rGiffiths MD Primary Care Provider Encounter Details Date Type Department Care Team Description 03/18/2020 Telephone [facility] Brandy Olmedo APRN, [address] [facility] [address] [place] [address] Social History Tobacco Use Types Packs/Day Years [...] or relatives? How often do you attend baptist or Never 2020 sikhism services? Do you belong to any clubs or No 05/18/2020 organizations such as baptist groups, unions, fraternal or athletic groups, or [...] this encounter Miscellaneous Notes Telephone Encounter - Kenzie Nogueira RN - 03/18/2020 7:41 AM CST Patient called asking when she would be receiving the COVID vaccination. She was given an explanation on how the vaccine is given out per [place]. She was educated that the news will have updates on the current status of the vaccination. She verbalized understanding and had no further questions. ING PLANT SUPERINTENDENT documented in this encounter Plan of Treatment Upcoming Encounters Date Type Specialty Care Team Description 01/18/2022 Telemedicine Family Medicine Sebastian Griffiths MD [address] [place], [place] [address] (Wo rk) documented as of this encounter Visit Diagnoses Not on filedocumented in this encounter Care Teams Clinical Resource Nurse Relationship Specialty Start Date End Date Sebastian Griffiths MD PCP - General 10/24/17 [address] [place] [address] documented as of this encounter
--- OUTSIDE RECORDS SUMMARY | 2021-12-09 21:27 | XMS_ITS | Encounter Summary ---
:1950 Author Organization [facility] Address [address] [place] [address] Care Team Providers Name Role Phone Sebastian Griffiths MD Primary Care Provider Reason for Visit Reason Onset Date Comments updated medication list 07/08/2020 Encounter Details Date Type Department Care Team Description 07/08/2020 Telephone NW Family Medicine Sebastian Griffiths, updated medication list [address] [place] [address] [address] [facility] [phone] [place], [place] [phone] Social History Tobacco Use Types Packs/Day Years [...] do you attend rastafarian or Never 2020 jew services? Do you belong to any clubs [...] Telephone Encounter - Sebastian Griffiths MD - 07/08/2020 12:00 PM CDT I discussed patient with the nurse at her new facility. I will confirm the order of 30 units of insulin daily although the discharge insulin dose was 70. She seems to be drinking a lot more pop now so she'll need to decrease that and I will be sent weekly blood sugar readings to be sure that is under control. They can take care of a freestyle michelle glucose check but they'll need a backup Accu- Chek monitor with strips. She still is smoking occasionally and so a low-dose NicoDerm patch will be prescribed. She will need safety lancets and pen tip needles prescribed. Her gabapentin will be 600 mg 3 times daily. I will send these prescriptions to [facility] and will take a which will be her new pharm jessica. We also discussed some of her past history and medication use including the oxycodone. Telephone Encounter - Annabella Marroquin RN - 07/08/2020 9:50 AM CDT Adriana from [facility] in [place] calls and states this patient arrived yesterday from [facility] in [place]. She is new to them and will need updated medication list faxed to them and well as diabetic medications and other meds Provider wants her on. Att. Adriana Pharmacy [facility] in [place] Phone # at [facility] [phone] documented in this encounter Plan of Treatment Upcoming Encounters Date Type Specialty Care Team Description 01/18/2022 Telemedicine Family Medicine Sebastian Griffiths MD [address] [place] [address] (Wo rk) documented as of this encounter Visit Diagnoses Diagnosis Uncontrolled type 2 diabetes mellitus wi th hyperglycemia (HCC) - Primary Controlled type 2 diabetes mellitus with out complication, without long-term current use of insulin (HCC) Type II diabetes mellitus with periphera l circulatory disorder (HCC) Type II or unspecified type diabetes giuseppe litus with peripheral circulatory disorders, not stated as uncontrolled Degenerative disc disease, lumbar documented in this encounter Care Teams Pressure Tank Operator Relationship Specialty Start Date End Date Sebastian Griffiths MD PCP - General 10/24/[address] [place] [address] documented as of this encounter
--- OUTSIDE RECORDS SUMMARY | 2021-12-09 21:27 | XMS_ITS | Encounter Summary ---
:1950 Author Organization [facility] Address [address] [place] [address] Care Team Providers Name Role Phone Sebastian Griffiths MD Primary Care Provider Encounter Details Date Type Department Care Team Description 05/18/2020 Telephone SE Internal Medicine Sun Gloria RN [address] [facility] [address] [place] [address] [place] [address] Social History Tobacco Use Types Packs/Day Years [...] do you attend zoroastrian or Never 2020 advent services? Do you [...] Telephone Encounter - Sebastian Griffiths MD - 05/18/2020 10:32 PM CST Noted, thanks. RT KEEPER Telephone Encounter - Sun Gloria RN - 05/18/2020 4:52 PM CST Per patient's visit today, provider had the following questions for the fdc: 1. How much amlodipine does she have available. 2. How much duloxetine is she taking 2x60mg a day? 3. Patient not taking taking insulin or metformin. Is that true? 4. Let me know what pharmacy to update her prescription to, including her oxycodone, amlodipine, duloxetine, inhalers, lorazepam, gabapentin, eye drops, risperidone, hydroxyzine, nicotine patch, and zolpidem Answers: 1. 16 doses 2. 120 mg morning ((60 mgX2) 3. No insulin but taking Metformin 500 mg BID 4. Pharmacy: [facility] (added under pharmacy list but not as primary) RT KEEPER documented in this encounter Plan of Treatment Upcoming Encounters Date Type Specialty Care Team Description 01/18/2022 Telemedicine Family Medicine Sebastian Griffiths MD [address] [place] [address] (Wo rk) documented as of this encounter Visit Diagnoses Not on filedocumented in this encounter Care Teams Line Clearance Foreman Relationship Specialty Start Date End Date Sebastian Griffiths MD PCP - General 10/24/[address] [place] [phone] documented as of this encounter
--- OUTSIDE RECORDS SUMMARY | 2021-12-09 21:27 | XMS_ITS | Encounter Summary ---
:1950 Author Organization [facility] Address [address] [place] [address] Care Team Providers Name Role Phone Sebastian Griffiths MD Primary Care Provider Reason for Visit Reason Onset Date Comments Unable to fill rx 04/17/2020 Encounter Details Date Type Department Care Team Description 04/17/2020 Telephone [facility] Sebastian Griffiths MD Unable to fill rx [address] [facility] [address] [place] [address] [place] [address] [phone] (Wo rk) Social History Tobacco Use Types [...] do you attend taoist or Never 2020 pentecostalism services? Do you [...] this encounter Miscellaneous Notes Telephone Encounter - Angélica Estevez MD - 04/17/2020 5:38 PM WINDLASSER See message, but it looks like Dr. Griffiths is in the chart addressing. LASSER Telephone Encounter - Cole Vaughan - 04/17/2020 4:11 PM CST Patient called again to check on her prescription. Again informed that nurses had already messaged Dr. Griffiths. Patient wanted public relations writer to let Dr. Griffiths know she hopes it gets sent to her pharmacy. LASSER Telephone Encounter - Vicenta Miranda - 04/17/2020 1:51 PM CST Pt just called PSR desk again requesting oxy prescription be sent to [facility]. Cifuentes. Thanks. LASSER Telephone Encounter - Cole Vaughan - 04/17/2020 10:30 AM CST Patient called to check to make sure this would be going to [facility]. Informed her that is what the nurse got ready for Dr. Griffiths to review/approve. LASSER Telephone Encounter - Yanna Cheng LPN - 04/17/2020 10:00 AM WINDLASSER [facility] stating they are unable to fill patient's oxycodone rx today due to not having it in stock. They will cancel rx sent to them. Please resend rx to [facility]. Order pended for approval. LASSER documented in this encounter Plan of Treatment Upcoming Encounters Date Type Specialty Care Team Description 01/18/2022 Telemedicine Family Medicine Sebastian Griffiths MD [address] [place] [address] (Wo rk) documented as of this encounter Visit Diagnoses Diagnosis Chronic pain syndrome documented in this encounter Care Teams Energy Efficiency Engineer Relationship Specialty Start Date End Date Sebastian Griffiths MD PCP - General 10/24/17 [address] [place] [address] documented as of this encounter
--- OUTSIDE RECORDS SUMMARY | 2021-12-09 21:27 | XMS_ITS | Encounter Summary ---
:1950 Author Organization [facility] Address [address] [place] [address] Care Team Providers Name Role Phone Sebastian Griffiths MD Primary Care Provider Reason for Visit Reason Onset Date Comments Med Refill 02/19/2020 Encounter Details Date Type Department Care Team Description 02/19/2020 Refill SE Family Med Sebastian Griffiths MD Generalized anxiety disorder (Primary Dx ); [address] [facility] [address] [place] [address] [place] [address] [phone] (Wo rk) Social History Tobacco Use Types [...] do you attend sabianist or Never 2020 christian services? Do you [...] Telephone Encounter - Fiona Pena RN - 02/19/2020 2:10 PM CST Patient requests lorazepam to be sent to [facility]. Pended in this encounter. Medication canceled at previous pharmacy. RY DRILL OPERATOR Telephone Encounter - Sun Gloria RN - 02/19/2020 10:54 AM CST Confirmed with Zee Wade that they have not and are unable to fill Rx for Oxycodone so they have cancelled the script sent 02/17/20. RY DRILL OPERATOR Telephone Encounter - Marquita Cabral - 02/19/2020 10:29 AM CST Pharmacy called and is not able to fill due to a move and is not able to order at this time. Pt would like a new script sent to another pharmacy for now. oxyCODONE (ROXICODONE) 5 MG Pharmacy [facility] RY DRILL OPERATOR documented in this encounter Plan of Treatment Upcoming Encounters Date Type Specialty Care Team Description 01/18/2022 Telemedicine Family Medicine Sebastian Griffiths MD [address] [place] [address] (Wo rk) documented as of this encounter Visit Diagnoses Diagnosis Generalized anxiety disorder - Primary Chronic pain syndrome documented in this encounter Care Teams Client Services Assistant Relationship Specialty Start Date End Date Sebastian Griffiths MD PCP - General 10/24/[address] [place] [phone] documented as of this encounter
--- OUTSIDE RECORDS SUMMARY | 2021-12-09 21:27 | XMS_ITS | Encounter Summary ---
:1950 Author Organization [facility] Address [address] [place] [address] Care Team Providers Name Role Phone Sebastian Griffiths MD Primary Care Provider Encounter Details Date Type Department Care Team Description 01/13/2020 Telephone NW Acute Care Sebastian Griffiths MD [address] [facility] [address] [place] [address] [place] [address] [phone] (Wo rk) Social History Tobacco Use Types [...] do you attend jainism or Never 2020 jain services? Do you [...] Telemedicine Family Medicine Sebastian Griffiths MD [address] [place] [phone] (Wo rk) documented as of this encounter Visit Diagnoses Not on filedocumented in this encounter Care Teams Nutrition Representative Relationship Specialty Start Date End Date Sebastian Griffiths MD PCP - General 8/7/18 7 [place] [address] documented as of this encounter
--- OUTSIDE RECORDS SUMMARY | 2021-12-09 21:27 | XMS_ITS | Encounter Summary ---
:1950 Author Organization [facility] Address [address] [place] [address] Care Team Providers Name Role Phone Sebastian Griffiths MD Primary Care Provider Reason for Visit Reason Onset Date Comments Med Refill 07/07/2020 Encounter Details Date Type Department Care Team Description 07/07/2020 Refill SE Family Med Sebastian Griffiths MD Chronic pain syndrome; [address] Ins[place], [place] [address] [place] [address] [phone] (Wo rk) Social History Tobacco Use Types [...] do you attend confucianist or Never 2020 shinto services? Do you [...] Telephone Encounter - Mili Rivera MA - 07/07/2020 8:57 AM CDT Patient will be moving from a long term acute care registered nurse care facility to an assisted living facility, and they are requesting new prescriptions for patient for oxycodone 5 mg and Ambien 5 mg Pending for review. Zolpidem (ambien) 5 mg, 30 tablet, 5 refills, done on 2020. Oxycodone 5 mg, 180 tablet, 0 refill, done on 06/01/2020. documented in this encounter Plan of Treatment Upcoming Encounters Date Type Specialty Care Team Description 01/18/2022 Telemedicine Family Medicine Sebastian Griffiths MD [address] [place] [phone] (Wo rk) documented as of this encounter Visit Diagnoses Diagnosis Chronic pain syndrome Insomnia, unspecified type documented in this encounter Care Teams Machine Molder Relationship Specialty Start Date End Date Sebastian Griffiths MD PCP - General 10/24/[address] [place] [phone] documented as of this encounter
--- OUTSIDE RECORDS SUMMARY | 2021-12-09 21:27 | XMS_ITS | Encounter Summary ---
:1950 Author Organization [facility] Address [address] [place] [address] Care Team Providers Name Role Phone Sebastian Griffiths MD Primary Care Provider Reason for Visit Reason Comments Med Refill Encounter Details Date Type Department Care Team Description 03/16/2020 Refill SE [facility] Sebastian Griffiths, Osteoarthritis of both knees , unspecified osteoarthritis type; [address] [facility] [place] [address] [place] [address] [place], [place] [id number] Social History Tobacco Use Types Packs/Day Years [...] do you attend mandaen or Never 2020 worship services? Do you belong to any clubs [...] this encounter Miscellaneous Notes Telephone Encounter - Elie Coley - 03/19/2020 8:44 AM CST Pt calls to follow up on rx today. 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 Med was dc'd by provider. Please review and advise pharmacy on refill request. Requested Prescriptions Pending Prescriptions Disp Refills ??? Acetaminophen Extra Strength 500 MG tablet [Pharmacy Med Name: ACETAMINOPHEN 500MG TABS] 100 tablet 11 Sig: TAKE TWO TABLETS BY MOUTH THREE TIMES A DAY NEEDED FOR PAIN ??? oxyCODONE (ROXICODONE) 5 MG immediate release tablet [Pharmacy Med Name: OXYCODONE HCL 5MG TABS]120 tablet 0 Sig: TAKE TWO TABLETS BY MOUTH TWICE A DAY LLER OPERATOR documented in this encounter Plan of Treatment Upcoming Encounters Date Type Specialty Care Team Description 01/18/2022 Telemedicine Family Medicine Sebastian Griffiths MD [address] [place], [place] [address] (Wo rk) documented as of this encounter Visit Diagnoses Diagnosis Osteoarthritis of both knees, unspecifie d osteoarthritis type Chronic pain syndrome documented in this encounter Care Teams Inpatient Care Manager Rn Relationship Specialty Start Date End Date Sebastian Griffiths MD PCP - General 10/24/17 [address] [place], [place] [phone] documented as of this encounter
--- OUTSIDE RECORDS SUMMARY | 2021-12-09 21:27 | XMS_ITS | Encounter Summary ---
:1950 Author Organization [facility] Address [address] [place] [address] Care Team Providers Name Role Phone Sebastian Griffiths MD Primary Care Provider Reason for Visit Reason Comments Med Refill Encounter Details Date Type Department Care Team Description 04/08/2020 Refill SE Family Med Sebastian Griffiths MD Anxiety; [address] [facility] [address] [place] [address] [place] [address] [phone] (Wo rk) Social History Tobacco Use Types [...] or relatives? How often do you attend synagogue or Never 2020 taoism services? Do you belong to any clubs or No 05/18/2020 organizations such as synagogue groups, unions, fraternal or athletic groups, or [...] Telephone Encounter - Candice Werner LPN - 04/09/2020 12:20 PM SEAM TAPER MACHINE Last visit in provider department: 02/17/2020 Last visit requested medication was discussed: 02/17/2020 Upcoming appointment with provider: 05/18/2020 Last Rx: #90, 11 refills 03/29/2019 Requested Prescriptions Pending Prescriptions Disp Refills ??? hydrOXYzine (ATARAX) 25 MG tablet [Pharmacy Med Name: HYDROXYZINE HCL 25MG TABS] 90 tablet 11 Sig: TAKE ONE TABLET BY MOUTH EVERY 8 HOURS NEEDED FOR ITCHING TAPER MACHINE documented in this encounter Plan of Treatment Upcoming Encounters Date Type Specialty Care Team Description 01/18/2022 Telemedicine Family Medicine Sebastian Griffiths MD [address] [place], [place] [address] (Wo rk) documented as of this encounter Visit Diagnoses Diagnosis Anxiety Anxiety state, unspecified Pruritic condition Unspecified pruritic disorder documented in this encounter Care Teams Environmental Compliance Manager Relationship Specialty Start Date End Date Sebastian Griffiths MD PCP - General 10/24/[address] [place] [phone] documented as of this encounter
--- OUTSIDE RECORDS SUMMARY | 2021-12-09 21:27 | XMS_ITS | Encounter Summary ---
:1950 Author Organization [facility] Address [address] [place] [address] Care Team Providers Name Role Phone Sebastian Griffiths MD Primary Care Provider Reason for Visit Reason Onset Date Comments Med Refill Med Refill 01/13/2020 Encounter Details Date Type Department Care Team Description 01/08/2020 Refill SE Family Med Sebsatian Griffiths MD Insomnia, unspecified [address] [facility] [address] [place] [address] [place] [address] [phone] (Wo rk) Social History Tobacco Use Types [...] do you attend rastafari or Never 2020 latter day services? Do you belong to any clubs [...] Telephone Encounter - Jayshree Rodriguez MA - 01/10/2020 11:14 AM CDT Rx completed on 2020, #30, 5 refills E-Prescribing Status: Receipt confirmed by pharmacy (2020 ??8:25 PM CDT) documented in this encounter Plan of Treatment Upcoming Encounters Date Type Specialty Care Team Description 01/18/2022 Telemedicine Family Medicine Sebastian Griffiths MD [address] [place], [place] [phone] (Wo rk) documented as of this encounter Visit Diagnoses Diagnosis Insomnia, unspecified type documented in this encounter Care Teams Organizational Effectiveness Consultant Relationship Specialty Start Date End Date Sebastian Griffiths MD PCP - General 10/24/17 [address] [place] [address] documented as of this encounter
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
--- OUTSIDE RECORDS SUMMARY | 2021-12-09 21:27 | XMS_ITS | Encounter Summary ---
:1950 Author Organization [facility] Address [address] [place] [address] Care Team Providers Name Role Phone Sebastian Griffiths MD Primary Care Provider Reason for Visit Reason Onset Date Comments Med Refill 04/13/2020 Encounter Details Date Type Department Care Team Description 04/13/2020 Refill SE Family Med Sebastian Griffiths MD Chronic pain syndrome [address] [facility] [address] [place] [address] [place] [address] [phone] (Wo rk) Social History Tobacco Use Types [...] do you attend samaritan or Never 2020 islam services? Do you [...] Telephone Encounter - Annabella Marroquin RN - 04/13/2020 12:10 PM CST Patient requests refill of her Oxycodone. 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 Please advise. ING MACHINE OPERATOR [employer] documented in this encounter Plan of Treatment Upcoming Encounters Date Type Specialty Care Team Description 01/18/2022 Telemedicine Family Medicine Sebastian Griffiths MD [address] [place], [place] [address] (Wo rk) documented as of this encounter Visit Diagnoses Diagnosis Chronic pain syndrome documented in this encounter Care Teams Diploma Maker Relationship Specialty Start Date End Date Sebastian Griffiths MD PCP - General 10/24/[address] [place] [address] [phone] documented as of this encounter
--- OUTSIDE RECORDS SUMMARY | 2021-12-09 21:27 | XMS_ITS | Encounter Summary ---
:1950 Author Organization [facility] Address [address] [place] [address] Care Team Providers Name Role Phone Sebastian Griffiths MD Primary Care Provider Encounter Details Date Type Department Care Team Description 07/08/2020 Orders Only SE Family Med Sebastian Griffiths MD [address] [facility] [address] [place] [address] [place], [place] [phone] (Wo rk) Social History Tobacco Use Types [...] do you attend anglican or Never 2020 sabianism services? Do you [...] 01/18/2022 Telemedicine Family Medicine Sebastian Griffiths MD [address] [place] [address] 90 (Wo rk) documented as of this encounter Visit Diagnoses Not on filedocumented in this encounter Care Teams Home Teaching Grades 7 And 8 Teacher Relationship Specialty Start Date End Date Sebastian Griffiths MD PCP - General 10/24/[address] [place] [phone] documented as of this encounter
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
--- OUTSIDE RECORDS SUMMARY | 2021-12-09 21:27 | XMS_ITS | Encounter Summary ---
:1950 Author Organization [facility] Address [address] [place] [address] Care Team Providers Name Role Phone Sebastian Griffiths MD Primary Care Provider Reason for Visit Reason Comments Med Refill Encounter Details Date Type Department Care Team Description 04/13/2020 Refill SE Family Med Sebastian Griffiths MD Chronic pain syndrome [address] [facility] [address] [place] [address] [place] [address] [phone] (Wo rk) Social History Tobacco Use Types [...] do you attend jew or Never 2020 nondenominational services? Do you [...] 01/18/2022 Telemedicine Family Medicine Sebastian Griffiths MD [address] [place] [address] 904 (Wo rk) documented as of this encounter Visit Diagnoses Diagnosis Chronic pain syndrome documented in this encounter Care Teams Personal Injury Attorney Relationship Specialty Start Date End Date Sebastian Griffiths MD PCP - General 10/24/[address] [place] [phone] documented as of this encounter
--- OUTSIDE RECORDS SUMMARY | 2021-12-09 21:27 | XMS_ITS | Encounter Summary ---
:1950 Author Organization [facility] Address [address] [place] [address] Care Team Providers Name Role Phone Sebastian Griffiths MD Primary Care Provider Reason for Visit Reason Onset Date Comments Back Pain 01/13/2020 Encounter Details Date Type Department Care Team Description 01/13/2020 Telephone [facility] Acute Care Sebastian Griffiths MD Back Pain [address] [facility] [address] [place] [address] [place] [address] (Wo rk) Social History Tobacco Use Types [...] do you attend christian or Never 2020 mosque services? Do you [...] Telephone Encounter - Annabella Marroquin RN - 01/13/2020 12:57 PM CDT Patient calls with back pain (low) for three days. Pain is Becoming worse. No injury. Ibuprofen is not helping the pain. Advised she make an appointment to be seen. Assisted with the transfer. documented in this encounter Plan of Treatment Upcoming Encounters Date Type Specialty Care Team Description 01/18/2022 Telemedicine Family Medicine Sebastian Griffiths MD [address] [place], [place] [address] (Wo rk) documented as of this encounter Visit Diagnoses Not on filedocumented in this encounter Care Teams Psychologist Research Assistant Relationship Specialty Start Date End Date Sebastian Griffiths MD PCP - General 10/24/[address] [place] [phone] documented as of this encounter
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
--- OUTSIDE RECORDS SUMMARY | 2021-12-09 21:27 | XMS_ITS | Encounter Summary ---
:1950 Author Organization [facility] Address [address] [place] [address] Care Team Providers Name Role Phone Sebastian Griffiths MD Primary Care Provider Encounter Details Date Type Department Care Team Description 04/17/2020 Orders Only SE Family Med Angélica Estevez, [address] [place] [address] Social History Tobacco Use Types Packs/Day Years [...] do you attend yarsanism or Never 2020 jewish services? Do you [...] 01/18/2022 Telemedicine Family Medicine Sebastian Griffiths MD [address] [place], [place] [address] (Wo rk) documented as of this encounter Visit Diagnoses Not on filedocumented in this encounter Care Teams Personal Injury Litigation Paralegal Relationship Specialty Start Date End Date Sebastian Griffiths MD PCP - General 10/24/[address] [place] [address] documented as of this encounter
--- OUTSIDE RECORDS SUMMARY | 2021-12-09 21:27 | XMS_ITS | Encounter Summary ---
:1950 Author Organization [facility] Address [address] [place] [address] Care Team Providers Name Role Phone Sebastian Griffiths MD Primary Care Provider Reason for Visit Reason Onset Date Comments follow up 06/23/2020 Encounter Details Date Type Department Care Team Description 06/23/2020 Telephone [facility] Sebastian Griffiths MD follow up [address] [facility] [address] [place] [address] [place] [address] [phone] (Wo rk) Social History Tobacco Use Types [...] do you attend voodoo or Never 2020 congregation services? Do you [...] Telephone Encounter - Amanda Parkinson RN - 06/23/2020 4:43 PM CDT Patient calls requesting RN read letter Dr. Griffiths sent out today to her and her home nurse. Letter reviewed, they will contact us in a few weeks with blood sugar readings. documented in this encounter Plan of Treatment Upcoming Encounters Date Type Specialty Care Team Description 01/18/2022 Telemedicine Family Medicine Sebastian Griffiths MD [address] [place] [phone] (Wo rk) documented as of this encounter Visit Diagnoses Not on filedocumented in this encounter Care Teams Oil Well Driller Relationship Specialty Start Date End Date Sebastian Griffiths MD PCP - General 10/24/[address] [place] [phone] documented as of this encounter
--- OUTSIDE RECORDS SUMMARY | 2021-12-09 21:27 | XMS_ITS | Encounter Summary ---
:1950 Author Organization [facility] Address [address] [place] [address] Care Team Providers Name Role Phone Sebastian Griffiths MD Primary Care Provider Reason for Visit Reason Onset Date Comments glucose testing kit 03/18/2020 Encounter Details Date Type Department Care Team Description 03/18/2020 Telephone [facility] Sebastian Griffiths MD glucose testing kit [address] [facility] [address] [place] [address] [place] [address] [phone] (Wo rk) Social History Tobacco Use Types [...] do you attend christian or Never 2020 voodoo services? Do you [...] Telephone Encounter - Amanda Parkinson RN - 03/19/2020 2:40 PM CST Last seen for diabetes 02/17/20. Needs rx for new glucose meter and testing supplies. [employer] Telephone Encounter - Tamie Stewart - 03/18/2020 12:46 PM CST Pt needs new blood glucose kit with lancets and strips Must include testing times per day Andreina Koch [employer] documented in this encounter Plan of Treatment Upcoming Encounters Date Type Specialty Care Team Description 01/18/2022 Telemedicine Family Medicine Sebastian Griffiths MD [address] [place], [place] [address] (Wo rk) documented as of this encounter Visit Diagnoses Diagnosis Type II diabetes mellitus with periphera l circulatory disorder (HCC) - Primary Type II or unspecified type diabetes giuseppe litus with peripheral circulatory disorders, not stated as uncontrolled documented in this encounter Care Teams Blackener Relationship Specialty Start Date End Date Sebastian Griffiths MD PCP - General 10/24/17 [address] [place], [place] [phone] documented as of this encounter
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
--- OUTSIDE RECORDS SUMMARY | 2021-12-09 21:27 | XMS_ITS | Encounter Summary ---
:1950 Author Organization [facility] Address [address] [place] [address] Care Team Providers Name Role Phone Sebastian Griffiths MD Primary Care Provider Reason for Visit Reason Comments Med Refill Encounter Details Date Type Department Care Team Description 01/01/2020 Refill SE Family Med Sebastian Griffiths MD Insomnia, unspecified [address] [facility] [address] [place] [address] [place] [address] [phone] (Wo rk) Social History Tobacco Use Types [...] do you attend scientologist or Never 2020 zoroastrian services? Do you [...] Telephone Encounter - Jayshree Goldsmith-MACIE Harley - 2020 7:34 AM CDT Last visit in provider department: 12/24/2019 Last visit requested medication was discussed:medication has not been reviewed in the last year Upcoming appointment with provider: 03/31/2020 Last Rx: 11/16/2019, #30, 1 refill Requested Prescriptions Pending Prescriptions Disp Refills ??? zolpidem (AMBIEN) 5 MG tablet [Pharmacy Med Name: ZOLPIDEM TARTRATE 5MG TABS] 30 tablet 1 Sig: TAKE ONE TABLET BY MOUTH EVERY DAY AT BEDTIME NEEDED FOR SLEEP documented in this encounter Plan of Treatment Upcoming Encounters Date Type Specialty Care Team Description 01/18/2022 Telemedicine Family Medicine Sebastian Griffiths MD [address] [place], [place] [address] (Wo rk) documented as of this encounter Visit Diagnoses Diagnosis Insomnia, unspecified type documented in this encounter Care Teams Collar Setter Relationship Specialty Start Date End Date Sebastian Griffiths MD PCP - General 10/24/17 [address] [place] [address] documented as of this encounter
--- OUTSIDE RECORDS SUMMARY | 2021-12-09 21:27 | XMS_ITS | Encounter Summary ---
:1950 Author Organization [facility] Address [address] [place] [address] Care Team Providers Name Role Phone Sebastian Griffiths MD Primary Care Provider Reason for Visit Reason Comments Med Refill Encounter Details Date Type Department Care Team Description 01/22/2020 Refill SE Family Med Sebastian Griffiths MD Generalized anxiety disorder; [address] [facility] [address] Chronic pain syndrome; [place] [address] [place] [address] Controlled type 2 diabetes mellitus with out complication, without long-term current use of insulin ([facility]) [phone] (Wo rk) Social History Tobacco Use Types [...] or relatives? How often do you attend mormon or Never 2020 restorationist services? Do you belong to any clubs or No 05/18/2020 organizations such as mormon groups, unions, fraternal or athletic groups, or [...] Telephone Encounter - Jayshree Rodriguez MA - 01/23/2020 8:25 AM CANDLE POURER Last visit in provider department: 12/24/2019 Last visit requested medication was discussed: 12/24/2019, Telemedicine Upcoming appointment with provider: 02/17/2020 Last Rx: LORazepam (ATIVAN) 1 MG tablet 12/24/2019, #90, 0 refills oxyCODONE (ROXICODONE) 5 MG immediate release tablet 12/30/2019, #60, 0 refills JANUVIA 100 MG tablet 03/11/19, #90, 3 refills Requested Prescriptions Pending Prescriptions Disp Refills ??? LORazepam (ATIVAN) 1 MG tablet [Pharmacy Med Name: LORAZEPAM 1MG TABS] 90 tablet 0 Sig: TAKE ONE TABLET BY MOUTH THREE TIMES A DAY ??? oxyCODONE (ROXICODONE) 5 MG immediate release tablet [Pharmacy Med Name: OXYCODONE HCL 5MG TABS]60 tablet 0 Sig: TAKE ONE TABLET BY MOUTH TWO TIMES A DAY NEEDED FOR SEVERE PAIN FOR 15 DAYS, CONTINUE TAPERFROM 3 TO 2 A DAY ??? Januvia 100 MG tablet [Pharmacy Med Name: JANUVIA 100MG TABS] 90 tablet 3 Sig: TAKE ONE TABLET BY MOUTH EVERY MORNING Opioid Agreement: 10/21/2019 Labs: Component Latest Ref Rng & Units 10/21/2019 Microalbumin,mg/day 0.0 - 16.6 mg/L 54.0 (H) Creatinine, Urine mg/dL 297 Microalb/Creat Ratio 0 - 24 mg/g 18 Component Latest Ref Rng & Units 10/21/2019 Sodium 135 - 145 mEq/L 136 Potassium 3.5 - 5.1 mEq/L 3.6 Chloride 98 - 107 mEq/L 100 CO2 22 - 29 mmol/L 28 Creatinine 0.4 - 1.2 mg/dL 0.7 BUN 5 - 25 mg/dL 15 Glucose 70 - 100 mg/dL 130 (H) Calcium, Total,S 8.4 - 10.2 mg/dL 9.9 Component Latest Ref Rng & Units 10/21/2019 Cholesterol 0 - 199 mg/dL 198 Triglycerides 0 - 149 mg/dL 233 (H) HDL 40 - 250 mg/dL 63 LDL Calculated 0 - 99 mg/dL 88 Fasting? Yes Component Latest Ref Rng & Units 10/21/2019 Hemoglobin A1C 4.0 - 5.6 % A1C 6.3 (H) Vitals: BP Readings from Last 2 Encounters: 10/31/19 (!) 172/98 10/21/19 136/86 LE POURER documented in this encounter Plan of Treatment Upcoming Encounters Date Type Specialty Care Team Description 01/18/2022 Telemedicine Family Medicine Sebastian Griffiths MD [address] [place], [place] [address] (Wo rk) documented as of this encounter Visit Diagnoses Diagnosis Generalized anxiety disorder Chronic pain syndrome Controlled type 2 diabetes mellitus with out complication, without long-term current use of insulin (HCC) documented in this encounter Care Teams Bonsai Culturist Relationship Specialty Start Date End Date Sebastian Griffiths MD PCP - General 10/24/[address] [place] [phone] documented as of this encounter
--- OUTSIDE RECORDS SUMMARY | 2021-12-09 21:27 | XMS_ITS | Encounter Summary ---
:1950 Author Organization [facility] Address [address] [place] [address] Care Team Providers Name Role Phone Sebastian Griffiths MD Primary Care Provider Encounter Details Date Type Department Care Team Description 06/23/2020 Orders Only SE Family Med Marcial Inman MD [address] [facility] [address] [place] [address] [place], [place] [phone] (Wo rk) Social History Tobacco Use Types [...] or relatives? How often do you attend bahai or Never 2020 christian services? Do you belong to any clubs or No 05/18/2020 organizations such as bahai groups, unions, fraternal or athletic groups, or [...] Telemedicine Family Medicine Sebastian Griffiths MD [address] [place] [address] (Wo rk) documented as of this encounter Visit Diagnoses Not on filedocumented in this encounter Care Teams Manager Transportation Relationship Specialty Start Date End Date Sebastian Griffiths MD PCP - General 10/24/[address] [place] [phone] documented as of this encounter
--- OUTSIDE RECORDS SUMMARY | 2021-12-09 21:27 | XMS_ITS | Encounter Summary ---
:1950 Author Organization [facility] Address [address] [place] [address] Care Team Providers Name Role Phone Sebastian Griffiths MD Primary Care Provider Encounter Details Date Type Department Care Team Description 06/23/2020 Lab SE Lab Controlled type 2 diabetes [address] [facility] mellitus without complicatio n, [place] [address] without long-term current e [phone] of insulin (HCC ) Social History Tobacco Use Types Packs/Day Years [...] or relatives? How often do you attend hinduism or Never 2020 yazidism services? Do you belong to any clubs or No 05/18/2020 organizations such as hinduism groups, unions, fraternal or athletic groups, or [...] 01/18/2022 Telemedicine Family Medicine Sebastian Griffiths MD [address] [place] [phone] (Wo rk) documented as of this encounter Procedures Procedure Name Priority Date/Time Associated Comments Diagnosis GLOMERULAR Routine 06/23/2020 12:25 PM Controlled type 2 Res ults for this FILTRATION RATE CDT diabetes mellitus procedu re are in without the results complication, section. without long-term current use of insulin ([facility]) HEMOGLOBIN A1C Routine 06/23/2020 12:25 PM Controlled type 2 R esults for this CDT diabetes mellitus procedure are in without the results complication, section. without long-term current use of insulin ([facility]) LIPID PANEL Routine 06/23/2020 12:25 PM Controlled type 2 Res ults for this CDT diabetes mellitus procedure are in without the results complication, section. without long-term current use of insulin ([facility]) BASIC METABOLIC Routine 06/23/2020 12:25 PM Controlled type 2 Results for this PANEL CDT diabetes mellitus procedure are in without the results complication, section. without long-term current use of insulin ([facility]) MICROALBUMIN/CREATIN Routine 06/23/2020 12:17 PM Controlled ty pe 2 Results for this INE RATIO CDT diabetes mellitus procedure are in without the results complication, section. without long-term current use of insulin ([facility]) documented in this encounter Results Glomerular filtration rate (GFR) (06/23/2020 12:25 PM CDT) athologist Signature GFR >60 06/23/2020 [facility] 3:51 PM CDT [facility] >60 06/23/2020 [facility] Malaysian GFR 3:51 PM T [facility] Comment: GFR calculated from serum creatinine v alue Chronic Kidney Disease less than 60 mL/m in/1.73 m2 Kidney Failure less than 15 mL/min/1.73 m2 Note: effective 08/02/06 IDMS-Traceable MDRD Study Equation used. Specimen Anatomical Collection Method Collection Time Receive d Time (Source) Location / / Volume Laterality 06/23/2020 12:25 06/23/2020 PM CDT 12:25 PM CDT Sebastian Griffiths MD LAB BLOOD ORDERABLES Performing Organization Address City/State/ZIP Code Phon e Number [facility] [address] [place] [address] (ABNORMAL) Basic metabolic panel (06/23/2020 12:25 PM CDT) Patholo gist Method Time Signature Sodium 130 (L) 135 - 145 06/23/2020 [facility] mEq/L 3:51 PM [facility] Potassium 4.1 3.5 - 5.1 06/23/2020 [facility] mEq/L 3:51 PM [facility] Chloride 95 (L) 98 - 107 06/23/2020 [facility] mEq/L 3:51 PM [facility] CO2 24 22 - 29 06/23/2020 [facility] mmol/L 3:51 PM [facility] Creatinine 0.7 0.4 - 1.2 06/23/2020 [facility] mg/dL 3:51 PM [facility] BUN 15 5 - 25 06/23/2020 [facility] mg/dL 3:51 PM [facility] Glucose 408 (HH) 70 - 100 06/23/2020 [facility] mg/dL 3:51 PM [facility] Calcium, 9.6 8.4 - 10.2 06/23/2020 [facility] Total,S mg/dL 3:51 PM [facility] Specimen Anatomical Collection Method Collection Time Receive d Time (Source) Location / / Volume Laterality Blood 06/23/2020 12:25 06/23/2020 1:51 PM CDT PM CDT Narrative [facility] - 04/0 08/2020 3:51 PM CDT Called to MARLENE Nogueira, GLUC 408, RBA. , [phone], 15:51 06/23/2020 TPH Repeated and verified glucose. Sebastian Griffiths MD LAB BLOOD ORDERABLES Performing Organization Address City/State/ZIP Code Phon e Number [facility] [address] [place] [address] (ABNORMAL) Hemoglobin A1c (06/23/2020 12:25 PM CDT) Analysis Performed At [facility] logist Time Signature Hemoglobin A1C 9.1 (H) 4.0 - 5.6 06/23/2020 [facility] % A1C 4:21 PM [facility] Comment: Reference Range 4.0-5.6% is [...] (Source) Location / / Volume Laterality Blood 06/23/2020 12:25 06/23/2020 1:51 PM CDT PM CDT Sebastian Griffiths MD LAB BLOOD ORDERABLES Performing Organization Address City/State/ZIP Code Phon e Number [facility] [address] [place] [address] (ABNORMAL) Lipid panel (06/23/2020 12:25 PM CDT) athologist Signature Cholesterol 146 0 - 199 06/23/2020 [facility] mg/dL 3:51 PM T [facility] Comment: Recommended by National Cholesterol Education Program (ATP III) -------- Cholesterol Ranges -------- <200 ?Desirable 200-239 ? Borderline high >=240 ? High Triglycerides 419 (H) 0 - 149 mg/dL 06/23/2020 3:51 PM CDT [facility] Comment: -------- TRIG Ranges -------- <150 ?Normal 150-199 ? Borderline high 200-499 ? High >=500 ? Very high HDL 41 40 - 250 mg/dL 06/23/2020 3:51 PM CDT [facility] Comment: -------- HDL Ranges -------- <40 ?Low 40-59 ?Normal >=60 ? Optimal LDL Calculated see below 0 - 99 mg/dL 06/23/2020 3:51 PM CDT [facility] Comment: Trig >400, calculated LDL invalid. -------- LDL Ranges -------- <100 ? Optimal 100-129 ?Near optimal/above op timal 130-159 ?Borderline high 160-189 ?High >=190 ?Very high Fasting? No 06/23/2020 12:25 PM CDT [facility] Specimen Anatomical Collection Method Collection Time Receive d Time (Source) Location / / Volume Laterality Blood 06/23/2020 12:25 06/23/2020 1:51 PM CDT PM CDT Narrative [facility] - 08/2020 3:51 PM CDT Called to MARLENE Nogueira, GLUC 408, RBA. , [phone], 15:51 06/23/2020 TPH Repeated and verified glucose. Sebastian Griffiths MD LAB BLOOD ORDERABLES Performing Organization Address [facility] Phon e Number [facility] [address] [place] [phone] (ABNORMAL) Microalbumin/Creatinine Ratio (06/23/2020 12:17 PM CDT) Analysis Performed At [facility] Time Signature Microalbumin,m 44.4 (H) 0.0 - 16.6 06/23/2020 [facility] g/day mg/L 3:40 PM [facility] Comment: . Creatinine, Urine 90 mg/dL 06/23/2020 3:40 PM T [facility] Comment: No established reference range. Microalb/Creat Ratio 49 (H) 0 - 24 mg/g 06/23/2020 3:40 P M [facility] Specimen Anatomical Collection Method Collection Time Receive d Time (Source) Location / / Volume Laterality Urine 06/23/2020 12:17 06/23/2020 1:54 PM CDT PM CDT Sebastian Griffiths MD LAB URINE ORDERABLES Performing Organization Address [facility]/ZIP [facility] Phon e Number [facility] [address] [place] [phone] documented in this encounter Visit Diagnoses Diagnosis Controlled type 2 diabetes mellitus with out complication, without long-term current use of insulin (HCC) documented in this encounter Care Teams Tape Stringer Relationship Specialty Start Date End Date Sebastian Griffiths MD PCP - General 10/24/[address] [place] [phone] documented as of this encounter
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
--- OUTSIDE RECORDS SUMMARY | 2021-12-09 21:27 | XMS_ITS | Encounter Summary ---
:1950 Author Organization [facility] Address [address] [place] [address] Care Team Providers Name Role Phone Sebastian Griffiths MD Primary Care Provider Reason for Visit Reason Onset Date Comments Med Refill 03/16/2020 Encounter Details Date Type Department Care Team Description 03/16/2020 Refill SE Family Med Sebastian Griffiths MD Chronic pain syndrome [address] [facility] [address] [place] [address] [place] [address] [phone] (Wo rk) Social History Tobacco Use Types [...] or relatives? How often do you attend latter-day or Never 2020 gnosticist services? Do you belong to any clubs or No 05/18/2020 organizations such as latter-day groups, unions, fraternal or athletic groups, or [...] this encounter Miscellaneous Notes Telephone Encounter - Ev Rice RN - 03/17/2020 11:50 AM CST Last visit 02/17/2020 ER visit 02/19/2020 for Altered mental status Next visit 05/18/2020 Last Rx 02/19/2020 Last CSA Need to be updated Rx pended for provider to review. UMER LOAN MANAGER Telephone Encounter - Josiasnora Yanezsophia - 03/16/2020 9:55 AM CST Pt call requesting refill for Oxycodone. Please advise. UMER LOAN MANAGER documented in this encounter Plan of Treatment Upcoming Encounters Date Type Specialty Care Team Description 01/18/2022 Telemedicine Family Medicine Sebastian Griffiths MD [address] [place], [place] [phone] (Wo rk) documented as of this encounter Visit Diagnoses Diagnosis Chronic pain syndrome documented in this encounter Care Teams Safety Director Relationship Specialty Start Date End Date Sebastian Griffiths MD PCP - General 10/24/[address] [place] [address] documented as of this encounter
--- OUTSIDE RECORDS SUMMARY | 2021-12-09 21:27 | XMS_ITS | Encounter Summary ---
:1950 Author Organization [facility] Address [address] [place] [address] Care Team Providers Name Role Phone Sebastian Griffiths MD Primary Care Provider Encounter Details Date Type Department Care Team Description 06/08/2020 Telephone SE Family Med Sebastian Griffiths MD [address] [facility] [address] [place] [address] [place] [address] [phone] (Wo rk) Social History Tobacco Use Types [...] do you attend zoroastrian or Never 2020 amish services? Do you [...] Telephone Encounter - Fiona Pena RN - 06/08/2020 3:43 PM CDT Informed RN at [facility]. She states Rebeca is not in and she wrote down this message. She was advised if she calls back any RN/MA can help with this message. Telephone Encounter - Sebastian Griffiths MD - 06/08/2020 3:18 PM CDT No, the dose cannot be increased. Thanks. Telephone Encounter - Yanna Cheng LPN - 06/08/2020 1:36 PM CDT Rebeca, Nurse Graphics Intern at [facility] in [place], calls on behalf of patient. Patient currently takes Oxycodone 5 mg, 2 tablets three times daily. Patient reports this is not controlling her pain any longer and wonders if her dose could be increased. Please advise. Call back # for Rebeca: [phone] documented in this encounter Plan of Treatment Upcoming Encounters Date Type Specialty Care Team Description 01/18/2022 Telemedicine Family Medicine Sebastian Griffiths MD [address] [place], [place] [phone] (Wo rk) documented as of this encounter Visit Diagnoses Not on filedocumented in this encounter Care Teams Research Laboratory Manager Relationship Specialty Start Date End Date Sebastian Griffiths MD PCP - General 10/24/[address] [place] [id number] documented as of this encounter
--- OUTSIDE RECORDS SUMMARY | 2021-12-09 21:27 | XMS_ITS | Encounter Summary ---
:[address] [facility] Address [address] [place] [address] Care Team Providers Name Role Phone Sebastian Griffiths MD Primary Care Provider Reason for Visit Reason Comments Pain lower back pain Encounter Details Date Type Department Care Team Description 02/17/2020 Office Visit SE Family Med Sebastian Griffiths, Controlled type 2 diabetes m ellitus without complication, without long-term current use of insulin (HCC) (Primary Dx); [address] Chronic pain syndrome; [place] [address] Generalized anxiety disorder ; [phone] Hand trauma, right, initial encounter; [place], [place] Preventive holly sure; [id number] Flu vaccine need Social History Tobacco Use Types Packs/Day Years [...] do you attend jainism or Never 2020 pentecostalism services? Do you [...] Sign Reading Time Taken Comments Blood Pressure 135/78 02/17/2020 1:58 PM CORRECTIONAL PROGRAM OFFICER Pulse 114 02/17/2020 1:58 PM CORRECTIONAL PROGRAM OFFICER Temperature 36.6 ??C (97.9 ??F) 02/17/2020 1:58 PM CORRECTIONAL PROGRAM OFFICER Respiratory Rate 20 02/17/2020 1:58 PM CORRECTIONAL PROGRAM OFFICER Oxygen Saturation 92% 02/17/2020 1:58 PM CORRECTIONAL PROGRAM OFFICER Inhaled Oxygen Concentration - - Weight - - Height - - Body Mass Index - - documented in this encounter Patient Instructions Patient InstructionsSebastian Griffiths MD - 02/17/2020 2:20 PM CST Next time I will decrease your oxycodone to 3 tabs a day. Next lab work in April is urine and non-fasting blood. ECTIONAL PROGRAM OFFICER documented in this encounter Progress Notes Sebastian Griffiths MD - 02/17/2020 2:20 PM CST Estab Patient Visit Subjective Patient ID: Rena Fan is a 70 y.o. female. Chief Complaint Patient presents with ??? Pain lower back pain HPI Patient presents for her 3-month recheck. Her blood sugars are running normally. She had a fall in her scooter not too long ago and states her back has been acting up ever since then. She has been using two 5 mg oxycodone's twice daily and that seems to be helpful. She also, since that fall, has had noticed swelling over the dorsum of the left hand that is remained painful. The following portions of the patient's chart were reviewed in this encounter and updated as appropriate: Tobacco Allergies Meds Problems Med Hx Surg Hx OB Status Fam Hx Soc Hx Review of Systems Denies any hypoglycemic spells. States she still feels depressed. I reviewed her recent [facility] notes. Objective Visit Vitals BP 135/78 (BP Location: Right arm, Patient Position: Sitting) Pulse (!) 114 Temp 36.6 ??C (97.9 ??F) (Temporal) Resp 20 SpO2 92% OB Status Hysterectomy Smoking Status Current Every Day Smoker Physical Exam General: Female in no acute distress, examined in her scooter. Orthopedics: She does have swelling over the dorsum of the hand proximal to the base of the index and long fingers. Seems to move her fingers well without any angular deformity. Color is good. Assessment/Plan Diagnoses and all orders for this visit: Controlled type 2 diabetes mellitus without complication, without long-term current use of insulin (HCC) - Microalbumin/Creatinine Ratio; Future - Hemoglobin A1c; Future Chronic pain syndrome - oxyCODONE (ROXICODONE) 5 MG immediate release tablet; Take 2 tablets (10 mg total) by mouth 2 (two) times a day Generalized anxiety disorder - LORazepam (ATIVAN) 1 MG tablet; TAKE ONE TABLET BY MOUTH THREE TIMES A DAY Hand trauma, right, initial encounter - X-ray Hand 3+ Views Right; Future Preventive measure - Pneumococcal polysaccharide vaccine 23-valent greater than or equal to 2yo subcutaneous/IM Flu vaccine need - Flu Vaccine High Dose 65yrs and Older IM Recheck in 3 months. PDMP checked and was normal. Opioid contract intact. I will have her on her current for oxycodone a day for 1 month and then will drop it down to 3 a day after that. Patient agreed. I will call her with results of the hand x-ray. ECTIONAL PROGRAM OFFICER documented in this encounter Plan of Treatment Upcoming Encounters Date Type Specialty Care Team Description 01/18/2022 Telemedicine Family Medicine Sebastian Griffiths MD [address] [place] [phone] (Wo rk) Scheduled Orders Name Type Priority Associated Diagnoses Order S chedule X-ray Hand 3+ Views Imaging Routine Hand trauma, right, E xpected: 02/17/2020, Right initial encounter Expires: 1 04/18/2020 documented as of this encounter Visit Diagnoses Diagnosis Controlled type 2 diabetes mellitus with out complication, without long-term current use of insulin (HCC) - Primary Chronic pain syndrome Generalized anxiety disorder Hand trauma, right, initial encounter Preventive measure Need for unspecified prophylactic measur e Flu vaccine need documented in this encounter Care Teams Feather Renovator Relationship Specialty Start Date End Date Sebastian Griffiths MD PCP - General 10/24/[address] [place] [phone] documented as of this encounter
--- OUTSIDE RECORDS SUMMARY | 2021-12-09 21:27 | XMS_ITS | Encounter Summary ---
:1950 Author Organization [facility] Address [address] [place] [address] Care Team Providers Name Role Phone Sebastian Griffiths MD Primary Care Provider Reason for Visit Reason Comments Med Refill Encounter Details Date Type Department Care Team Description 04/15/2020 Refill SE Family Med Sebastian Griffiths MD Anxiety; [address] [facility] [address] Pruritic condition; [place] [address] [place] [address] Controlled type 2 diabetes mellitus with out complication, without long-term current use of insulin ([facility]) [phone] (Wo rk) Social History Tobacco Use Types [...] do you attend holiness or Never 2020 cheondoism services? Do you [...] Encounter - Yanna Cheng LPN - 04/17/2020 10:53 AM CADET DECK Last appointment 02/17/20. Next appointment scheduled for 05/18/20. Rx Januvia last given 01/23/20 for #90 and refill x 3. Rx Hydroxyzine last given 04/09/20 for #90 and no refills. T DECK Telephone Encounter - Yanna Cheng LPN - 04/17/2020 10:28 AM CADET DECK Request to send [place] [facility] [place] only [place]. This was addressed in separate telephone encounter. T DECK Telephone Encounter - Héctor Madrigal - 04/17/2020 8:26 AM CST Pt calls requesting the prescriptions be sent to [facility], as the [facility] does not have this available. Please advise. T DECK documented in this encounter Plan of Treatment Upcoming Encounters Date Type Specialty Care Team Description 01/18/2022 Telemedicine Family Medicine Sebastian Griffiths MD [address] [place], [place] [address] (Wo rk) documented as of this encounter Visit Diagnoses Diagnosis Anxiety Anxiety state, unspecified Pruritic condition Unspecified pruritic disorder Controlled type 2 diabetes mellitus with out complication, without long-term current use of insulin (HCC) documented in this encounter Care Teams Aircraft Engineer Relationship Specialty Start Date End Date Sebastian Griffiths MD PCP - General 10/24/[address] [place] [phone] documented as of this encounter
--- OUTSIDE RECORDS SUMMARY | 2021-12-09 21:27 | XMS_ITS | Encounter Summary ---
:1950 Author Organization [facility] Address [address] [place] [address] Care Team Providers Name Role Phone Sebastian Griffiths MD Primary Care Provider Reason for Visit Reason Onset Date Comments medication question 2020 Encounter Details Date Type Department Care Team Description 2020 Telephone [facility] Sebastian Griffiths MD medication question [address] [facility] [address] [place] [address] [place] [address] [phone] (Wo rk) Social History Tobacco Use Types [...] do you attend presybeterian or Never 2020 restoration services? Do you belong to any clubs [...] Telephone Encounter - Sebastian Griffiths MD - 01/26/2020 8:19 AM CST Patient has chronic pain and statins have been held. Will update at upcoming appointment this month. SETTER OVERLOCK Telephone Encounter - Mili Rivera MA - 2020 12:58 PM CDT Patient's health insurance calling stating that patient medicare sends them a note asking why patient is not taking any statin medication since she has diabetes and per medicare any patient with diabetes should be on a statin. Last lipid panel on 10/21/2019, 198 triglycerides 233 HDL 63 LDL 88 documented in this encounter Plan of Treatment Upcoming Encounters Date Type Specialty Care Team Description 01/18/2022 Telemedicine Family Medicine Sebastian Griffiths MD [address] [place], [place] [address] (Wo rk) documented as of this encounter Visit Diagnoses Not on filedocumented in this encounter Care Teams Drill Rig Operator Helper Relationship Specialty Start Date End Date Sebastian Griffiths MD PCP - General 10/24/17 [address] [place], [place] [phone] documented as of this encounter
--- OUTSIDE RECORDS SUMMARY | 2021-12-09 21:28 | XMS_ITS | Encounter Summary ---
:1950 Author Organization [facility] Address [address] [place] [address] Care Team Providers Name Role Phone Sebastian Griffiths MD Primary Care Provider Reason for Visit Reason Comments Post-op Encounter Details Date Type Department Care Team Description 11/12/2019 Office Visit [facility] Regan Kelly S/P arthros copy of Orthopedics S, BUNDLE PACKER, CRUCIBLE FURNACE TENDER right shoulder [address] [facility] [address] [facility] (Primary Dx) [place] [address] [place] [phone] Social History Tobacco Use Types Packs/Day Years [...] or relatives? How often do you attend sikhism or Never 2020 yazdanism services? Do you belong to any clubs or No 05/18/2020 organizations such as sikhism groups, unions, fraternal or athletic groups, or [...] been in contact with No / Unsure 10/30/2019 9:42 AM CDT someone who was confirmed or suspected to have Coronavirus / COVID-19? documented as of this encounter Progress Notes Regan Kelly, JANICE, CRUCIBLE FURNACE TENDER - 11/12/2019 10:15 AM CDT Post-Operative Eval Reason For Consult Chief Complaint Patient presents with ??? Post-op History Of Present Illness Rena Fan is a 69 y.o. female presenting to orthopedic clinic eval staus post 1. Arthroscopic right shoulder (revision) subacromial decompression and acromioplasty. 2. Arthroscopic right distal clavicle excision. 3. Arthroscopic right shoulder proximal biceps tenotomy.` Date of surgery 10/30/2019. Patient arrives to clinic states she is in pain. 8 out of 10. She took 2 oxycodone's approximately 2 hours ago. She continues to take it every 4-6 hours per patient. Patient has been on chronic pain meds which are being handled by Dr. Griffiths. She states otherwise the shoulder seems okay. She does not do a lot with it. She does work with physical therapy as that just be an this last week. She has been performing simple range of motion exercises however is very guarded with it today. She denies any new trauma. No fever or chills. No reported numbness or tingling. No significant health changes or concerns. Past Medical History She has a past medical history of Acid reflux, Borderline personality disorder ([facility]), Chronic pain syndrome, Cocaine substance abuse ([facility]), COPD (chronic obstructive pulmonary disease) ([facility]), Coronary artery disease, Generalized anxiety disorder, Glaucoma, Hepatitis C, History of pancreatitis, Hyperlip idemia, unspecified, Hypertension, essential, benign, Insomnia (03/03/2016), Irritable bowel syndrome, Major depressive disorder, recurrent episode, moderate ([facility]), Migraine, and Type 2 diabetes mellitus, controlled ([facility]). Surgical History She has a past surgical history that includes Septoplasty (1999); Appendectomy; Cholecystectomy; Colonoscopy (2014); Esophagogastroduodenoscopy (2014); Breast biopsy (Left); Total abdominal hysterectomy w/ bilateral salpingoophorectomy; Knee Arthroplasty (Right, 2006); Knee Arthroplasty (Right, 09/05/2017); Rotator cuff repair w/ distal clavicle excision (2006); ORIF wrist fracture (2008); and Shoulder arthroscopy w/ rotator cuff repair (Right, 10/30/2019). Social History She reports that she has been smoking cigarettes. She has a 10.00 pack-year smoking history. She hasnever used smokeless tobacco. She reports previous alcohol use. She reports previous drug use. Allergies Bee venom; Losartan; Tramadol; Varenicline; Aspirin; Nsaids; and Penicillins Medications (Not in a hospital admission) Review of Systems Review of Systems Last Recorded Vitals There were no vitals taken for this visit. Physical Exam General: Alert and oriented x3. No acute distress. Extremity: Right upper extremity no reported numbness or tingling to palpation throughout extremity.Right digit coordination and strength appropriate compared to nonoperative side. Right elbow flexiondoes report some added discomfort in bicep however range of motion full. Right shoulder range of motion very guarded today. Mild discomfort to palpation over arm vicinity of portal sites for arthroscopy surgery. Incision site is clean dry intact with no erythema or ecchymosis. No open sores or lesions. Patient will allow passive range of motion abduction to approximately 80 degrees with forward elevation to approximately 75 degrees. No external role range of motion tested today. No strength testing p erformed today. Assessment/Plan Diagnosis Plan 1. S/P arthroscopy of right shoulder Very pleased with the progress that the patient has and continues to make. At this time dressing changes performed without any complications. Sutures removed. Patient may shower however asked not to soak or scrub for another 2 weeks. Continue working with physical therapy per protocol-shoulder decompression. Patient can wean from sling as felt she is ready. Gentle range of motion exercises should befirst concern and then working on strengthening with physical therapy protocol. Pain medications maybe utilized as needed-Dr. Griffiths will be taking primary control of all narcotic pain medications. Ice may help with swelling. All questions and concerns addressed at this time. Patient okay with this plan. documented in this encounter Plan of Treatment Upcoming Encounters Date Type Specialty Care Team Description 01/18/2022 Telemedicine Family Medicine Sebastian Griffiths MD [address] [place] [phone] (Wo rk) documented as of this encounter Visit Diagnoses Diagnosis S/P arthroscopy of right shoulder - Prim sudhakar documented in this encounter Care Teams Apprentice Painter Neckties Relationship Specialty Start Date End Date Sebastian Griffiths MD PCP - General 10/24/17 [address] [place] [address] documented as of this encounter
--- OUTSIDE RECORDS SUMMARY | 2021-12-09 21:28 | XMS_ITS | Encounter Summary ---
:1950 Author Organization [facility] Address [address] [place] [address] Care Team Providers Name Role Phone Sebastian Griffiths MD Primary Care Provider Reason for Visit Reason Onset Date Comments med refill 11/18/2019 Encounter Details Date Type Department Care Team Description 11/18/2019 Telephone [facility] Med Sebastian Griffiths MD med refill [address] [facility] [address] [place] [address] [place] [address] [phone] (Wo rk) Social History Tobacco Use Types [...] or relatives? How often do you attend orthodox or Never 2020 pentecostalism services? Do you belong to any clubs or No 05/18/2020 organizations such as orthodox groups, unions, fraternal or athletic groups, [...] Telephone Encounter - Sebastian Griffiths MD - 11/18/2019 11:30 AM CDT Done. Decrease dose from 4 tablets a day to 3 tablets a day. For 2 weeks. May continue on 3 tablets a day for the following 2 weeks when that refill is due. Telephone Encounter - Amanda Parkinson RN - 11/18/2019 10:18 AM CDT Patient was last seen 11/12/19 by ortho for post-op right shoulder surgery. Rx for oxycodone 5mg #56 tabletes last written 11/08/19. Has f/u with Dr. Griffiths 12/24/19. Telephone Encounter - Tamie Stewart - 11/18/2019 7:59 AM CDT oxyCODONE (ROXICODONE) 5 MG immediate release tablet Needs refill documented in this encounter Plan of Treatment Upcoming Encounters Date Type Specialty Care Team Description 01/18/2022 Telemedicine Family Medicine Sebastian Griffiths MD [address] [place] [phone] (Wo rk) documented as of this encounter Visit Diagnoses Diagnosis Chronic pain syndrome documented in this encounter Care Teams Microfilm Mounter Relationship Specialty Start Date End Date Sebastian Griffiths MD PCP - General 10/24/[address] [place] [phone] documented as of this encounter
--- OUTSIDE RECORDS SUMMARY | 2021-12-09 21:28 | XMS_ITS | Encounter Summary ---
:1950 Author Organization [facility] Address [address] [place] [address] Care Team Providers Name Role Phone Sebastian Griffiths MD Primary Care Provider Encounter Details Date Type Department Care Team Description 11/06/2019 Telephone [facility] Lily Woody BSN Medical/Surgical [address] [facility] [address] [place] [id number] [place] [address] [phone] Social History Tobacco Use Types Packs/Day Years [...] do you attend restorationist or Never 2020 rastafari services? Do you [...] 01/18/2022 Telemedicine Family Medicine Sebastian Griffiths MD [address] [place] [address] (Wo rk) documented as of this encounter Visit Diagnoses Not on filedocumented in this encounter Care Teams Order Analyst Relationship Specialty Start Date End Date Sebastian Griffiths MD PCP - General 10/24/[address] [place] [phone] documented as of this encounter
--- OUTSIDE RECORDS SUMMARY | 2021-12-09 21:28 | XMS_ITS | Encounter Summary ---
:1950 Author Organization [facility] Address [address] [place] [address] Care Team Providers Name Role Phone Sebastian Griffiths MD Primary Care Provider Reason for Visit Reason Comments Post-op right shoulder Encounter Details Date Type Department Care Team Description 12/17/[address] [facility] Regan Kelly S/P arthros copy of Orthopedics S, MD UROLOGIST, DESIGN/ANIMATION INSTRUCTOR right shoulder [address] [facility] [address] [place] [address] (Primary Dx) [place] [address] [place] [id number] Social History Tobacco Use Types Packs/Day Years [...] do you attend yazdanism or Never 2020 tenriism services? Do you belong to any clubs [...] this encounter Progress Notes Regan Kelly, JANICE, DESIGN/ANIMATION INSTRUCTOR - 12/17/2019 11:30 AM CDT Post-Operative Eval Reason For Consult Chief Complaint Patient presents with ??? Post-op right shoulder History Of Present Illness Rena Fan is a 69 y.o. female presenting to orthopedic clinic [facility] 1.?Arthroscopic right??shoulder (revision)??subacromial decompression and acromioplasty. 2.?Arthroscopic right??distal clavicle excision. 3.?Arthroscopic right??shoulder proximal biceps tenotomy.` Date of surgery 10/30/2019. Patient arrives to clinic today rating pain out of 10. She continues to take oxycodone as provided by Dr. Griffiths. She continues to complain of right shoulder pain however shows that in a generalized vicinity. She states that she has never had physical therapy and that she was never contacted. She has not been performing any significant activities with her right arm. She is not utilizing a sling. The only time she utilizes her right shoulder is for simple everyday activities of daily living such as getting dressed. She denies any fever or chills. No numbness or tingling reported. Past Medical History She has a past medical history of Acid reflux, Borderline personality disorder ([facility]), Chronic pain syndrome, Cocaine substance abuse ([facility]), COPD (chronic obstructive pulmonary disease) ([facility]), Coronary artery disease, Generalized anxiety disorder, Glaucoma, Hepatitis C, History of pancreatitis, Hyperlip idemia, unspecified, Hypertension, essential, benign, Insomnia (03/03/2016), Irritable bowel syndrome, Major depressive disorder, recurrent episode, moderate ([facility]), Migraine, and Type 2 diabetes mellitus, controlled ([facility]). Surgical History She has a past [...] She reports previous drug use. Allergies Bee venom, Losartan, Tramadol, Varenicline, Aspirin, Nsaids, and Penicillins Medications (Not in a hospital admission) Review of Systems Review of Systems Last Recorded Vitals There were no vitals taken for this visit. Physical Exam General: Alert and oriented x3. No acute distress. Patient is in a very flat groggy state. Right upper extremity: Right upper extremity no reported numbness or tingling to palpation throughout extremity. Right digit coordination and strength appropriate compared to nonoperative side. Right elbow flexion does produce some bicep discomfort. Continued discomfort iscomfort to palpation over armvicinity of portal sites for arthroscopy surgery. Incision site is clean dry intact with no erythemaor ecchymosis. No open sores or lesions. Patient will allow passive range of motion abduction to approximately 80 degrees with forward elevation to approximately 75 degrees. External rotation to approximately 30 degrees. Patient has obvious weakness with attempt to abduct and forward elevate actively. Assessment/Plan Diagnosis Plan 1. S/P arthroscopy of right shoulder Reviewed her physical status. I am concerned that the patient is not progressing well due to her notperforming at home exercises and/or attending physical therapy sessions. At this point I did encourage her that she needs to become more active to work through some of her stiffness and strengthening. A encouraged her to get in with physical therapy and follow-through otherwise she will continue to have deficiencies and pain in that shoulder. At this point the patient should be working on more activerange of motion and passive range of motion. Patient will follow-up in approximately 1 month. All her questions and concerns addressed at this time. documented in this encounter Plan of Treatment Upcoming Encounters Date Type Specialty Care Team Description 01/18/2022 Telemedicine Family Medicine Sebastian Griffiths MD [address] [place], [place] [phone] (Wo rk) documented as of this encounter Visit Diagnoses Diagnosis S/P arthroscopy of right shoulder - Prim sudhakar documented in this encounter Care Teams Digital Manager Relationship Specialty Start Date End Date Sebastian Griffiths MD PCP - General 10/24/[address] [place] [address] [phone] documented as of this encounter
--- OUTSIDE RECORDS SUMMARY | 2021-12-09 21:28 | XMS_ITS | Encounter Summary ---
:1950 Author Organization [facility] Address [address] [place] [address] Care Team Providers Name Role Phone Sebastian Griffiths MD Primary Care Provider Reason for Visit Reason Onset Date Comments Med Refill 12/16/2019 Encounter Details Date Type Department Care Team Description 12/16/2019 Telephone [facility] Med Sebastian Griffiths MD Med Refill [address] [facility] [address] [place] [address] [place] [address] [phone] (Wo rk) Social History Tobacco Use Types [...] or relatives? How often do you attend lutheran or Never 2020 caodaism services? Do you belong to any clubs or No 05/18/2020 organizations such as lutheran groups, unions, fraternal or athletic groups, or [...] Telephone Encounter - Yanna Cheng LPN - 12/16/2019 4:16 PM CDT Last appointment with provider was via telemedicine on 07/08/19. Next appointment scheduled for 12/24/19. Rx last given 9/17/20 for #42 and no refills. Telephone Encounter - Orlinsudhakar Vianca - 12/16/2019 10:47 AM CDT Pt call requesting refill for Oxycodone. Please advise and refill. documented in this encounter Plan of Treatment Upcoming Encounters Date Type Specialty Care Team Description 01/18/2022 Telemedicine Family Medicine Sebastian Griffiths MD [address] [place], [place] [phone] (Wo rk) documented as of this encounter Visit Diagnoses Diagnosis Chronic pain syndrome documented in this encounter Care Teams Crochet Beader Relationship Specialty Start Date End Date Sebastian Griffiths MD PCP - General 10/24/[address] [place] [address] [phone] documented as of this encounter
--- OUTSIDE RECORDS SUMMARY | 2021-12-09 21:28 | XMS_ITS | Encounter Summary ---
:1950 Author Organization [facility] Address [address] [place] [address] Care Team Providers Name Role Phone Sebastian Griffiths MD Primary Care Provider Encounter Details Date Type Department Care Team Description 11/19/2019 Telephone SE Family Med Sebastian Griffiths MD [address] [facility] [address] [place] [address] [place] [address] [phone] (Wo rk) Social History Tobacco Use Types [...] do you attend evangelical or Never 2020 yazdanism services? Do you [...] this encounter Miscellaneous Notes Telephone Encounter - Regan Gomez - 12/09/2019 9:22 AM CDT Order for Scooter CELESTE 3 Wheel Elite dated 12/01/19 faxed to [employer] [phone] (Same fax as original order). Telephone Encounter - Maddie Dubon LPN - 11/27/2019 2:47 PM CDT DME order pended per fax from [employer]. Please advise. Thank you. Telephone Encounter - Regan Gomez - 11/22/2019 3:25 PM CDT [employer] sent a Final Form detaited standard order for a Scooter Celeste 3 Wheel Elite to be reviewed and signed, then faxed back. Form placed in Dr. Griffiths's nurse's in basket with green tracking form. Telephone Encounter - Regan Gomez - 11/19/2019 9:01 AM CDT [employer] Standard Written Order for Powerscooter faxed to [employer] [phone]. Order will be sent to be scanned into patient's record. documented in this encounter Plan of Treatment Upcoming Encounters Date Type Specialty Care Team Description 01/18/2022 Telemedicine Family Medicine Sebastian Griffiths MD [address] [place] [phone] (Wo rk) documented as of this encounter Visit Diagnoses Diagnosis Degenerative disc disease, lumbar - Prim sudhakar documented in this encounter Care Teams Applique Cutter Relationship Specialty Start Date End Date Sebastian Griffiths MD PCP - General 10/24/[address] [place] [phone] documented as of this encounter
--- OUTSIDE RECORDS SUMMARY | 2021-12-09 21:28 | XMS_ITS | Encounter Summary ---
:1950 Author Organization [facility] Address [address] [place] [address] Care Team Providers Name Role Phone Sebastian Griffiths MD Primary Care Provider Reason for Visit Reason Comments Med Refill Encounter Details Date Type Department Care Team Description 11/13/2019 Refill SE Family Med Sebastian Griffiths MD Insomnia, unspecified [address] [facility] [address] type (Primary Dx) [place] [address] [place] [address] [phone] (Wo rk) Social History Tobacco Use Types [...] do you attend catholic or Never 2020 caodaism services? Do you [...] Telephone Encounter - Lindsay Ny LPN - 11/16/2019 9:41 AM CDT Last visit in provider department: 10/21/2019 Pre-op Last visit requested medication was discussed: Med / dx not reviewed in the last year Upcoming appointment with provider: 12/24/2019 Last Rx: 09/24/2019 received from external pharmacy Requested Prescriptions Pending Prescriptions Disp Refills ??? zolpidem (AMBIEN) 5 MG tablet [Pharmacy Med Name: ZOLPIDEM TARTRATE 5MG TABS] 30 tablet 5 Sig: TAKE ONE TABLET BY MOUTH EVERY DAY AT BEDTIME NEEDED FOR SLEEP Vitals: BP Readings from Last 2 Encounters: 10/31/19 (!) 172/98 10/21/19 136/86 Please advise pharmacy on refill request. Thank you documented in this encounter Plan of Treatment Upcoming Encounters Date Type Specialty Care Team Description 01/18/2022 Telemedicine Family Medicine Sebastian Griffiths MD [address] [place] [phone] (Wo rk) documented as of this encounter Visit Diagnoses Diagnosis Insomnia, unspecified type - Primary documented in this encounter Care Teams Yarn Preparation Supervisor Relationship Specialty Start Date End Date Sebastian Griffiths MD PCP - General 10/24/17 [address] [place], [place] [phone] documented as of this encounter
--- OUTSIDE RECORDS SUMMARY | 2021-12-09 21:28 | XMS_ITS | Encounter Summary ---
:1950 Author Organization [facility] Address [address] [place] [address] Care Team Providers Name Role Phone Sebastian Griffiths MD Primary Care Provider Reason for Visit Reason Comments Med Refill Encounter Details Date Type Department Care Team Description 12/11/2019 Refill SE Family Med Sebastian Griffiths MD Major depressive [address] [facility] [address] disorder, [place] [address] [place] [address] episode, moderate (HCC) [phone] (Wo rk) Social History Tobacco Use Types [...] do you attend restorationist or Never 2020 buddhist services? Do you [...] Telephone Encounter - Guillermina Moran MA - 12/13/2019 3:52 PM CDT Last visit in provider department: 10/21/2019 Pre-op Last visit requested medication was discussed: 05/14/2019 Upcoming appointment with provider: 12/24/2019 Last Rx: 05/02/2019 # 60, 5 refill Requested Prescriptions Pending Prescriptions Disp Refills ??? DULoxetine (CYMBALTA) [address] capsule [Pharmacy Med Name: DULOXETINE HCL 60MG CPEP] 60 capsule 5 Sig: TAKE TWO CAPSULES BY MOUTH EVERY DAY Labs: 10/21/2019 PHQ9: 0 documented in this encounter Plan of Treatment Upcoming Encounters Date Type Specialty Care Team Description 01/18/2022 Telemedicine Family Medicine Sebastian Griffiths MD [address] [place], [place] [address] (Wo rk) documented as of this encounter Visit Diagnoses Diagnosis Major depressive disorder, recurrent epi sode, moderate (HCC) Major depressive disorder, recurrent epi sode, moderate documented in this encounter Care Teams Health Care Legal Assistant Relationship Specialty Start Date End Date Sebastian Griffiths MD PCP - General 10/24/17 [address] [place] [address] documented as of this encounter
--- OUTSIDE RECORDS SUMMARY | 2021-12-09 21:28 | XMS_ITS | Encounter Summary ---
:1950 Author Organization [facility] Address [address] [place] [address] Care Team Providers Name Role Phone Sebastian Griffiths MD Primary Care Provider Reason for Visit Reason Comments Med Refill Encounter Details Date Type Department Care Team Description 11/20/2019 Refill SE Family Med Sebastian Griffiths MD Major depressive [address] [facility] [address] disorder, [place] [address] [place] [address] episode, moderate (HCC) [phone] (Wo rk) Social History Tobacco Use Types [...] do you attend temple or Never 2020 congregational services? Do you [...] Telephone Encounter - Tamie Kuhn MA - 11/22/2019 10:31 AM CDT Last visit in provider department: 10/21/2019- Pre-op Last visit requested medication was discussed: 06/04/2019 Upcoming appointment with provider: 12/24/2019 Last Rx: 04/25/2019- 60 with 5 refills Requested Prescriptions Pending Prescriptions Disp Refills ??? risperiDONE (RisperDAL) 2 MG tablet [Pharmacy Med Name: RISPERIDONE 2MG TABS] 60 tablet 5 Sig: TAKE ONE TABLET BY MOUTH TWICE A DAY documented in this encounter Plan of Treatment Upcoming Encounters Date Type Specialty Care Team Description 01/18/2022 Telemedicine Family Medicine Sebastian Griffiths MD [address] [place], [place] [address] (Wo rk) documented as of this encounter Visit Diagnoses Diagnosis Major depressive disorder, recurrent epi sode, moderate ([facility]) Major depressive disorder, recurrent epi sode, moderate documented in this encounter Care Teams Airconditioning Engineer Relationship Specialty Start Date End Date Sebastian Griffiths MD PCP - General 10/24/[address] [place] [phone] documented as of this encounter
--- OUTSIDE RECORDS SUMMARY | 2021-12-09 21:28 | XMS_ITS | Encounter Summary ---
:1950 Author Organization [facility] Address [address] [place] [address] Care Team Providers Name Role Phone Sebastian Griffiths MD Primary Care Provider Reason for Visit Reason Onset Date Comments Med Refill 11/29/2019 Med Refill 12/04/2019 Encounter Details Date Type Department Care Team Description 11/29/2019 Refill SE Family Med Sebastian Griffiths MD Type II diabetes mellitus with periphera l circulatory disorder (HCC) (Primary Dx); [address] [facility] [address] [place] [address] [place] [address] [phone] (Wo rk) Social History Tobacco Use Types [...] do you attend nondenominational or Never 2020 scientology services? Do you [...] this encounter Miscellaneous Notes Addendum Note - Rachel Gloria RN - 12/04/2019 3:53 PM CDT Addended by: RACHEL GLORIA on: 12/04/2019 03:53 PM Modules accepted: Orders Telephone Encounter - Rachel Gloria RN - 12/04/2019 3:49 PM CDT Patient called in to follow up on her Oxycodone prescription. She was told a message would be forwarded to provider for review. She is out of meds now. Telephone Encounter - Kaelyn Lawson RN - 12/02/2019 4:30 PM CDT Phone call to patient, who corrects me, she states that she is on 20 units of insulin daily. I see an order of insulin glargine (Lantus) 100/ml, inject 20 units SQ once in the evening. Will pend and forward to provider, but gave her the heads up that he is not seeing patients in the clinic this week, so may not get to it right away. Telephone Encounter - Amanda Parkinson RN - 11/29/2019 2:11 PM CDT Last seen 10/21/19, has follow up scheduled 12/24/19. Oxycodone rx last written 11/18/19 for #42 pills for 14 days. Left message for patient to call us back to discuss request for freestyle michelle. Insurance will likely not cover this as she is not on insulin. Telephone Encounter - Elie Coley - 11/29/2019 1:30 PM CDT Pt call requesting refill for Oxycodone and glucose machine for her diabetes. Pt want the one that you don't have to stick yourself with. Please advise. documented in this encounter Plan of Treatment Upcoming Encounters Date Type Specialty Care Team Description 01/18/2022 Telemedicine Family Medicine Sebastian Griffiths MD [address] [place], [place] [address] (Wo rk) documented as of this encounter Visit Diagnoses Diagnosis Type II diabetes mellitus with periphera l circulatory disorder (HCC) - Primary Type II or unspecified type diabetes giuseppe litus with peripheral circulatory disorders, not stated as uncontrolled Chronic pain syndrome documented in this encounter Care Teams Fabric Normalizer Relationship Specialty Start Date End Date Sebastian Griffiths MD PCP - General 10/24/17 [address] [place], [place] [phone] documented as of this encounter
--- OUTSIDE RECORDS SUMMARY | 2021-12-09 21:28 | XMS_ITS | Encounter Summary ---
:1950 Author Organization [facility] Address [address] [place] [address] Care Team Providers Name Role Phone Sebastian Griffiths MD Primary Care Provider Reason for Visit Reason Comments Follow-up 2 MONTH Encounter Details Date Type Department Care Team Description 12/24/2019 Telemedicine [facility] Sebastian Griffiths, Encounter for screening mamm ogram for malignant neoplasm of breast (Primary Dx); [address] [facility] Generalized anxiety disorder; [place] [address] Chronic pain syndrome; [phone] Controlled type 2 diabetes mellitus with out complication, without long-term current use of insulin (HCC); [place], [place] Encounter for screening for malignant neoplasm of breast, unspecified screening modality [id number] Social History Tobacco Use Types Packs/Day [...] or relatives? How often do you attend quaker or Never 2020 mormonism services? Do you belong to any clubs or No 05/18/2020 organizations such as quaker groups, unions, fraternal or athletic groups, or [...] on file documented as of this encounter Patient Instructions Patient InstructionsSebastian Griffiths MD - 12/24/2019 9:40 AM CDT Be sure to keep your physical therapy. documented in this encounter Progress Notes Sebastian Griffiths MD - 12/24/2019 9:40 AM CDT Telephone Visit Subjective Patient ID: Rena Fan is a 69 y.o. female patient of Sebastian Griffiths MD, who is called on the phone from [facility] to discuss Chief Complaint Patient presents with ??? Follow-up 2 MONTH Patient is on the phone today with patient. HPI Called patient to review her latest status. She states that she still is having some shoulder pain after surgery. Does have a physical therapy appointment coming up later this week. She also states that her back pain persists and wonders if I can increase rather than continue to decrease her pain medication. 10 days ago I decreased her oxycodone from 3 a day to 2 a day. She also is awaiting some supplies for her glucometer. Her prior one broke so she has been taking blood sugar readings in the past week. She like a refill of her lorazepam. The following portions of the patient's chart were reviewed in this encounter and updated as appropriate: Tobacco Allergies Meds Problems Med Hx Surg Hx Fam Hx Soc Hx Health Maintenance Due Topic Date Due ?[place] [facility] [facility] ??? Diabetic Foot Exam 03/27/2019 ??? Glaucoma Screening 67+ Yr 06/15/2019 ??? Ophthalmology Exam 08/16/2019 ??? Mammogram 11/08/2019 Review of Systems HEENT, Eyes, respiratory, cardio, GI, genitourinary, endocrine, musculoskeletal, neurologic and psychiatric history were reviewed and negative except as per HPI. Objective RESULTS REVIEWED TODAY: None. EXAM: Psych: Patient is conversant and pleasant over the phone. She endorses euthymic mood and is in no acute distress. Rest of exam unable to be completed due to phone interview. Assessment/Plan Problem List Items Addressed This Visit Chronic pain syndrome Overview Chronic pain syndrome related to degenerative arthritis and other nonspecific factors; probable left trochanteric bursitis; multiple orthopedic procedures; history of mass on spine 02/04/2015 acute minimally displaced fractures right 5th-7th ribs laterall. Chronic left sided rib fractures, right shoulder injury, left knee inury, cervical JUNIOR BOOKKEEPER reviewed 05/14/2019 Relevant Medications oxyCODONE (ROXICODONE) 5 MG immediate release tablet (Start on 12/30/2019) Generalized anxiety disorder Relevant Medications LORazepam (ATIVAN) 1 MG tablet Type 2 diabetes mellitus, controlled (HCC) Relevant Medications aspirin (Aspirin Low Dose) 81 MG chewable tablet Other Visit Diagnoses Encounter for screening mammogram for malignant neoplasm of breast - Primary Relevant Orders Mammogram breast screening bilateral Encounter for screening for malignant neoplasm of breast, unspecified screening modality Return in about 3 months (around 03/25/2020) for Recheck diabetes. To be back so we can do her diabetic foot check at her next 3-month check. I did continue with her oxycodone at 2 a day. I encouraged her to get to that physical therapy appointment for the shoulder. The patient has consented to be consulted over the telephone without the capability of a physical exam and understands that this does not replace the importance of a face to face visit if problems persist. This is being done during the phase of the CDC COVID crisis and feel that it is in the patient's best interest to be treated over the phone at this time, as the benefits outweigh the risks. Additionally, the patient was made aware that this visit will be billed by time spent. The patient indicatesunderstanding of these issues and agrees with the plan. Time spent during this phone call was 17 minutes. documented in this encounter Plan of Treatment Upcoming Encounters Date Type Specialty Care Team Description 01/18/2022 Telemedicine Family Medicine Sebastian Griffiths MD [address] [place] [phone] (Wo rk) documented as of this encounter Visit Diagnoses Diagnosis Generalized anxiety disorder Chronic pain syndrome Controlled type 2 diabetes mellitus with out complication, without long-term current use of insulin (HCC) Encounter for screening for malignant ne oplasm of breast, unspecified screening modality documented in this encounter Care Teams Honing Machine Try Out Setter Relationship Specialty Start Date End Date Sebastian Griffiths MD PCP - General 10/24/[address] [place] [phone] documented as of this encounter
--- OUTSIDE RECORDS SUMMARY | 2021-12-09 21:28 | XMS_ITS | Encounter Summary ---
:1950 Author Organization [facility] Address [address] [place] [address] Care Team Providers Name Role Phone Sebastian Griffiths MD Primary Care Provider Reason for Visit Reason Comments Med Refill Encounter Details Date Type Department Care Team Description 12/02/2019 Refill SE Family Med Sebastian Griffiths MD Generalized anxiety [address] [facility] [address] [place] [address] [place] [address] [phone] (Wo rk) Social History Tobacco Use Types [...] do you attend protestant or Never 2020 mu-ism services? Do you [...] Telephone Encounter - Tamie Shore MA - 12/05/2019 11:24 AM CDT Last visit in provider department: 10/21/2019 Pre-op Last visit requested medication was discussed: 10/21/2019 Upcoming appointment with provider: 12/24/2019 Last Rx: LORAZEPAM 1MG TABS, #90 x 1 refills 10/07/2019 Requested Prescriptions Pending Prescriptions Disp Refills ??? LORazepam (ATIVAN) 1 MG tablet [Pharmacy Med Name: LORAZEPAM 1MG TABS] 90 tablet 1 Sig: TAKE ONE TABLET BY MOUTH THREE TIMES A DAY Vitals: BP Readings from Last 2 Encounters: 10/31/19 (!) 172/98 10/21/19 136/86 Please advise, thank you. documented in this encounter Plan of Treatment Upcoming Encounters Date Type Specialty Care Team Description 01/18/2022 Telemedicine Family Medicine Sebastian Griffiths MD [address] [place] [phone] (Wo rk) documented as of this encounter Visit Diagnoses Diagnosis Generalized anxiety disorder documented in this encounter Care Teams Computer Application Developer Relationship Specialty Start Date End Date Sebastian Griffiths MD PCP - General 10/24/[address] [place] [address] documented as of this encounter
--- OUTSIDE RECORDS SUMMARY | 2021-12-09 21:28 | XMS_ITS | Encounter Summary ---
:1950 Author Organization [facility] Address [address] [place] [address] Care Team Providers Name Role Phone Sebastian Griffiths MD Primary Care Provider Reason for Visit Reason Comments Med Refill Encounter Details Date Type Department Care Team Description 12/16/2019 Refill SE Family Med Sebastian Griffiths MD Chronic pain syndrome [address] [facility] [address] [place] [address] [place] [address] [phone] (Wo rk) Social History Tobacco Use Types [...] do you attend episcopal or Never 2020 sabianist services? Do you [...] Telephone Encounter - Lindsay Ny LPN - 12/19/2019 9:41 AM CDT Last Rx: 12/16/2019 # 30, 0 refills Requested Prescriptions Pending Prescriptions Disp Refills ??? oxyCODONE (ROXICODONE) 5 MG immediate release tablet [Pharmacy Med Name: OXYCODONE HCL 5MG TABS]42 tablet 0 Sig: TAKE ONE TABLET BY MOUTH EVERY 8 HOURS NEEDED FOR SEVERE PAIN FOR 14 DAYS Sent to pharmacy as: oxyCODONE HCl 5 MG Oral Tablet (ROXICODONE) Class: Normal Earliest Fill Date: 12/16/2019 Notes to Pharmacy: Continue taper from 3 tabs a day to 2 a day. 12/15. E-Prescribing Status: Receipt confirmed by pharmacy (12/16/2019 ??5:55 PM CDT) documented in this encounter Plan of Treatment Upcoming Encounters Date Type Specialty Care Team Description 01/18/2022 Telemedicine Family Medicine Sebastian Griffiths MD [address] [place], [place] [address] (Wo rk) documented as of this encounter Visit Diagnoses Diagnosis Chronic pain syndrome documented in this encounter Care Teams Mechanic Senior Relationship Specialty Start Date End Date Sebastian Griffiths MD PCP - General 10/24/[address] [place] [address] documented as of this encounter
--- OUTSIDE RECORDS SUMMARY | 2021-12-09 21:28 | XMS_ITS | Encounter Summary ---
:1950 Author Organization [facility] Address [address] [place] [address] Care Team Providers Name Role Phone Sebastian Griffiths MD Primary Care Provider Reason for Visit Reason Onset Date Comments refill 11/07/2019 Encounter Details Date Type Department Care Team Description 11/07/2019 Telephone [facility] Sebastian Griffiths MD refill [address] [facility] [address] [place] [address] [place] [address] [phone] (Wo rk) Social History Tobacco Use Types [...] do you attend temple or Never 2020 nondenominational services? Do you [...] this encounter Miscellaneous Notes Telephone Encounter - Kaelyn Lawson RN - 11/07/2019 9:36 AM CDT See surescript request. Telephone Encounter - Tamie Stewart - 11/07/2019 8:58 AM CDT oxyCODONE (ROXICODONE) 5 MG immediate release tablet Requesting refill documented in this encounter Plan of Treatment Upcoming Encounters Date Type Specialty Care Team Description 01/18/2022 Telemedicine Family Medicine Sebastian Griffiths MD [address] [place], [place] [phone] (Wo rk) documented as of this encounter Visit Diagnoses Not on filedocumented in this encounter Care Teams Sweat Box Attendant Relationship Specialty Start Date End Date Sebastian Griffiths MD PCP - General 10/24/[address] [place] [address] documented as of this encounter
--- OUTSIDE RECORDS SUMMARY | 2021-12-09 21:28 | XMS_ITS | Encounter Summary ---
:1950 Author Organization [facility] Address [address] [place] [address] Care Team Providers Name Role Phone Sebastian Grififths MD Primary Care Provider Reason for Visit Reason Onset Date Comments FreeStyle Kristie Sensor/Hurley not covered 12/11/2019 Prior Authorization Encounter Details Date Type Department Care Team Description 12/11/2019 Telephone SE [facility] Sebastian Griffiths, FreeStyle Kristie [address] [facility] [place]ensor/[place] [address] covered (Prior [phone] Authorization) [place] [address] Social History Tobacco Use Types [...] do you attend sikhism or Never 2020 judaism services? Do you [...] Notes Telephone Encounter - Regan Gomez - 12/18/2019 10:47 AM CDT Notice of Denial of Medical Coverage for FreeZylie the Bearyle Kristie 14-Day sensors placed in provider's nurses in box. Telephone Encounter - Tamie Terry - 12/13/2019 1:37 PM CDT Pt's insurance company calling she has not received your fax yet please advise Libby [phone] Telephone Encounter - Maddie Dubon LPN - 12/11/2019 1:18 PM CDT Prior Authorization initiated for Grease[employer] Sensor System Scott: [id number]. Prior Authorization initiated for globa.lyStFireLayerse Hurley Device Scott: [id number]. documented in this encounter Plan of Treatment Upcoming Encounters Date Type Specialty Care Team Description 01/18/2022 Telemedicine Family Medicine Sebastian Griffiths MD [address] [place], [place] [address] (Wo rk) documented as of this encounter Visit Diagnoses Not on filedocumented in this encounter Care Teams Portable Router Operator Relationship Specialty Start Date End Date Sebastian Griffiths MD PCP - General 10/24/[address] [place] [phone] documented as of this encounter
--- OUTSIDE RECORDS SUMMARY | 2021-12-09 21:28 | XMS_ITS | Encounter Summary ---
:1950 Author Organization [facility] Address [address] [place] [address] Care Team Providers Name Role Phone Sebastian Griffiths MD Primary Care Provider Reason for Visit Reason Comments Med Refill Encounter Details Date Type Department Care Team Description 11/18/2019 Refill [facility] Orthope dics Sebastian Griffiths MD Chronic pain syndrome [address] [place] [address] [place] [address] [place] [address] [phone] (Wo rk) Social History Tobacco Use Types [...] do you attend alevism or Never 2020 taoist services? Do you belong to any clubs [...] Telephone Encounter - Jayshree Rodriguez MA - 11/20/2019 9:33 AM CDT Rx completed on 11/18/2019, #42, 0 refills, spoke with pharmacy, patient has medication. documented in this encounter Plan of Treatment Upcoming Encounters Date Type Specialty Care Team Description 01/18/2022 Telemedicine Family Medicine Sebastian Griffiths MD [address] [place] [phone] (Wo rk) documented as of this encounter Visit Diagnoses Diagnosis Chronic pain syndrome documented in this encounter Care Teams Paste Worker Relationship Specialty Start Date End Date Sebastian Griffiths MD PCP - General 10/24/[address] [place] [address] documented as of this encounter
--- OUTSIDE RECORDS SUMMARY | 2021-12-09 21:28 | XMS_ITS | Encounter Summary ---
:1950 Author Organization [facility] Address [address] [place] [address] Care Team Providers Name Role Phone Sebastian Griffiths MD Primary Care Provider Reason for Visit Reason Comments Med Refill Encounter Details Date Type Department Care Team Description 11/07/2019 Refill [facility] Orthope dics Sebastian Griffiths MD Chronic pain syndrome [address] [place] [address] [place] [address] [place] [address] [phone] (Wo rk) Social History Tobacco Use Types [...] do you attend restorationism or Never 2020 mandaeism services? Do you [...] this encounter Miscellaneous Notes Telephone Encounter - Becki Blanco MA - 11/12/2019 9:23 AM CDT I called and left detailed message that her medication was refilled on 11/08/2019 and sent to [facility]. Telephone Encounter - Sebastian Griffiths MD - 11/08/2019 3:33 PM CDT . Telephone Encounter - Stacy Kemp - 11/08/2019 2:32 PM CDT Patient called to check on the status of refill. Please advise. Telephone Encounter - Kaelyn Lawson RN - 11/07/2019 9:36 AM CDT Start date of last prescription: 11/01/2019 Last appointment: 10/21/2019 next appointment: 12/24/2019 Opioid agreement/CSA noted in the record: 10/21/2019 documented in this encounter Plan of Treatment Upcoming Encounters Date Type Specialty Care Team Description 01/18/2022 Telemedicine Family Medicine Sebastian Griffiths MD [address] [place], [place] [address] (Wo rk) documented as of this encounter Visit Diagnoses Diagnosis Chronic pain syndrome documented in this encounter Care Teams Hand Lacer Relationship Specialty Start Date End Date Sebastian Griffiths MD PCP - General 10/24/17 [address] [place] [address] documented as of this encounter
--- OUTSIDE RECORDS SUMMARY | 2021-12-09 21:29 | XMS_ITS | Encounter Summary ---
:1950 Author Organization [facility] Address [address] [place] [address] Care Team Providers Name Role Phone Sebastian Griffiths MD Primary Care Provider Encounter Details Date Type Department Care Team Description 10/22/2019 Orders Only SE Immunization LebronKatya castanedasa L, Encounter for [address] [facility] PAVING RAMMER, SHOVEL OPERATOR [place] [address] [address] [facility] COVID-19 virus [phone] (Primary Dx) [place] [address] Social History Tobacco Use Types Packs/Day Years [...] or relatives? How often do you attend islam or Never 2020 pentecostalism services? Do you belong to any clubs or No 05/18/2020 organizations such as islam groups, unions, fraternal or athletic groups, or [...] been in contact with No / Unsure 09/24/2019 10:22 AM CDT someone who was confirmed or suspected to have Coronavirus / COVID-19? documented as of this encounter Plan of Treatment Upcoming Encounters Date Type Specialty Care Team Description 01/18/2022 Telemedicine Family Medicine Sebastian Griffiths MD [address] [place], [place] [address] (Wo rk) documented as of this encounter Results SARS Coronavirus 2 RNA detection, v (10/27/2019 7:46 AM CDT) [facility] Method Time Signature SARS Covid Nasopharyngeal 10/27/2019 [facility] specimen 11:08 PM LABORATORIES source CDT SARS CoV2 Undetected Undetected 10/27/2019 [facility] RNA 11:08 PM LABORATORIES CDT Comment: SARS-CoV-2 RNA absent. This result does not rule out COVID-19 in the patient, as the sensitiv ity of the test depends on the timing of the specimen co llection and the quality of the specimen. Result should b e correlated with patient's history and clinical presentat ion. ADDITIONAL INFORMATIO N This test using the apolinar SARS-CoV-2 ass ay ([employer] performed on the apolinar 68 00 System has received Emergency Use Authorization (EU A) by the U.S. Food and Drug Administration, and is modified from the pacu nurse's instructions with a bridg ing study. Performance characteristics were verifie d by [facility] in a manner consistent with CLIA requiremen ts. Fact sheets for this Emergency Use Autho rization (EUA) assay can be found at the following link s: For Healthcare Providers: https://www.fda.gov/media/539317/downloa d For Patients: https://www.fda.gov/media/ 514836/download Test Performed by: [facility] [address] [place] [address] 64 405 Refresh Technician: Sami Crenshaw M.D. Ph. D.; CLIA# [id number] Specimen Anatomical Collection Method Collection Time Receive d Time (Source) Location / / Volume Laterality Swab 10/27/2019 7:46 AM 0 1:13 (Nasopharyngeal) CDT PM CDT Rehana Lebron APRN, SHOVEL OPERATOR LAB MO[facility] Performing Organization Address City/State/ZIP Code Phon e Number [facility] see result attachment for specific address documented in this encounter Visit Diagnoses Diagnosis Encounter for laboratory testing for COV ID-19 virus - Primary documented in this encounter Care Teams Drive Worker Relationship Specialty Start Date End Date Sebastian Griffiths MD PCP - General 10/24/[address] [place] [address] documented as of this encounter
--- OUTSIDE RECORDS SUMMARY | 2021-12-09 21:29 | XMS_ITS | Encounter Summary ---
:1950 Author Organization [facility] Address [address] [place] [address] Care Team Providers Name Role Phone Sebastian Griffiths MD Primary Care Provider Reason for Visit Auth/Cert Specialty Diagnoses / Procedures Referred By Contact Refer red To Contact Diagnoses Nontraumatic incomplete tear of right rotator cuff Rotator cuff impingement syndrome of right shoulder Arthritis of right acromioclavicular joint Tendinopathy of right biceps tendon Nontraumatic incomplete tear of right rotator cuff [M75.111] Rotator cuff impingement syndrome of right shoulder [M75.41] Arthritis of right acromioclavicular joint [M19.011] Tendinopathy of right biceps tendon [M67.921] Procedures ARTHROSCOPY SHOULDER WITH ROTATOR CUFF REPAIR, revision decompression, distal clavicle excision, and proximal biceps tenotomy (possible open biceps sheath debridement) Referral ID Status Reason Start Date Expiration Date Visits Requ ested Visits Authorized [id number] 1 1 Encounter Details Date Type Department Care Team Description 10/30/2019 Surgery [facility] Operating Regan Velásquez, ARTHROSCOPY SHOULDER Room WITH ROTATOR CUFF [address] REPAIR, [place] [address] SE decompression, distal [phone] [place], [place] clavicle excis [place], and [phone] proximal biceps [phone] (Wo rk) tenotomy (possible open biceps sh eath debridement) Surgery Details Date/Time Status Location OR Service Patient Class Case Case Trauma Class Type Case? 10/30/19 10:40 Posted [facility] OR OR Orthopedics [facility] Outpatient Surgery Panel 1 Procedure LRB Anes Op Region Wound Class Commen ts ARTHROSCOPY SHOULDER WITH ROTATOR Right General Shoulder Cl ass I/ Clean CUFF REPAIR, revision decompression, distal clavicle excision, and proximal biceps tenotomy (possible open biceps sheath debridement) Surgeon Surgeon Role Service Panel Regan Velásquez MD Primary Orthopedics 1 Regan Kelly, SUPPLY CHAIN TECHNICIAN, COMPLIANCE OFFICER Assisting Orthopedics 1 documented in this encounter Social History [...] do you attend mandaen or Never 2020 restorationist services? Do you [...] Sign Reading Time Taken Comments Blood Pressure 175/92 10/30/2019 9:42 AM CDT Pulse 100 10/30/2019 9:42 AM CDT Temperature 36.3 ??C (97.3 ??F) 10/30/2019 9:42 AM CDT Respiratory Rate 16 10/30/2019 9:42 AM CDT Oxygen Saturation 98% 10/30/2019 9:42 AM CDT Inhaled Oxygen Concentration - - Weight 102 kg (223 lb 15.8 oz) 10/30/2019 9:42 AM CDT Height 165.1 cm (5' 5) 10/30/2019 9:42 AM CDT Body Mass Index 37.27 10/30/2019 9:42 AM CDT documented in this encounter Discharge Summaries Regan Velásquez MD - 10/31/2019 12:21 PM CDT Inpatient Discharge Summary BRIEF OVERVIEW Admission Date: 10/30/2019 Discharge Date: 10/31/2019 Discharge Disposition: Stable Outpatient Follow-Up Future Appointments Date Time Provider Department Center 11/11/2019 10:00 AM Warren De La Torre DPT [facility] 11/12/2019 10:15 AM Regan Kelly APRN, [facility] 12/12/2019 10:00 AM Regan Kelly APRN, [facility] 12/24/2019 9:40 AM Sebastian Griffiths MD [facility] DETAILS OF HOSPITAL STAY Presenting Problem/History of Present Illness Post operative day 1 Procedure(s): ARTHROSCOPY SHOULDER WITH ROTATOR CUFF REPAIR, revision decompression, distal clavicle excision, andproximal biceps tenotomy (possible open biceps sheath debridement) Pain medications utilized as needed for comfort-chronic narcotic use for pain management Prophylactic IV antibiotics provided through 24 hours post-op. Dressing changed day after surgery and wound benign through hospitalization. On discharge date, pain controlled reasonable with medications, no subjective complaints. Discharge Diagnoses: Procedure(s): ARTHROSCOPY SHOULDER WITH ROTATOR CUFF REPAIR, revision decompression, distal clavicle excision, andproximal biceps tenotomy (possible open biceps sheath debridement) Your medication list CHANGE how you take these medications Instructions Last Dose Given Next Dose Due oxyCODONE 5 MG immediate release tablet Commonly known as: ROXICODONE What changed: Another medication with the same name was added. Make sure you understand how and whento take each. TAKE 1 TABLET BY MOUTH EVERY 8 HOURS NEEDED FOR SEVERE PAIN FOR 14 DAYS oxyCODONE 5 MG immediate release tablet Commonly known as: ROXICODONE What changed: You were already taking a medication with the same name, and this prescription was added. Make sure you understand how and when to take each. Take 2-3 tablets every 6 hours as needed for pain. Take 2 tablets for pain rating 1 through 5. Take3 tablets for pain rating 6 or greater. CONTINUE taking these medications Instructions Last Dose Given Next Dose Due Accu-Chek SmartView test strip Generic drug: glucose blood USE DIRECTED TESTING TWICE DAILY Acetaminophen Extra Strength 500 MG tablet Generic drug: acetaminophen TAKE TWO TABLETS BY MOUTH THREE TIMES A DAY NEEDED FOR PAIN amLODIPine 5 MG tablet Commonly known as: NORVASC TAKE 1 TABLET BY MOUTH DAILY Aspirin Low Dose 81 MG chewable tablet Generic drug: aspirin CHEW ONE TABLET BY MOUTH DAILY cefdinir 300 MG capsule Commonly known as: OMNICEF Cetirizine HCl 10 MG capsule Colace 100 MG capsule Generic drug: docusate sodium diclofenac 1 % topical gel Commonly known as: VOLTAREN Apply topically 2 (two) times a day To affected shoulder pain dorzolamide-timolol 22.3-6.8 MG/ML ophthalmic solution Commonly known as: Cosopt Administer 1 drop into both eyes 2 (two) times a day DULoxetine [address] capsule Commonly known as: CYMBALTA TAKE TWO CAPSULES BY MOUTH EVERY DAY enoxaparin 40 MG/0.4ML solution Commonly known as: LOVENOX Epclusa 400-100 MG tablet Generic drug: Sofosbuvir-Velpatasvir EPINEPHrine 0.3 MG/0.3ML injection syringe Commonly known as: EPIPEN INJECT NEEDED FOR A BEE STING fluticasone 50 MCG/ACT nasal spray Commonly known as: FLONASE USE (1) SPRAY TWICE DAILY IN EACH NOSTRIL gabapentin 300 MG capsule Commonly known as: NEURONTIN TAKE ONE CAPSULE BY MOUTH THREE TIMES A DAY gabapentin 600 MG tablet Commonly known as: NEURONTIN TAKE ONE TABLET BY MOUTH THREE TIMES A DAY --TAKE ALONG WITH 300MG CAPSULES hydroCHLOROthiazide 25 MG tablet Commonly known as: HYDRODIURIL hydrOXYzine 25 MG tablet Commonly known as: ATARAX Take 1 tablet (25 mg total) by mouth every 8 (eight) hours if needed for itching hydrOXYzine 25 MG tablet Commonly known as: ATARAX TAKE ONE TABLET EVERY 8 HOURS IF NEEDED FOR ITCHING insulin glargine 100 UNIT/ML injection Commonly known as: LANTUS Inject 20 units SQ once in the evening Insulin Pen Needle 31G X 8 MM misc 1 Pen needle 1 (one) time each day ipratropium-albuterol 0.5-2.5 mg/3 mL nebulizer solution Commonly known as: DUO-NEB USE ONE (1) VIAL VIA NEBULIZER UP TO EVERY 4 HOURS NEEDED WHEEZING. Januvia 100 MG tablet Generic drug: SITagliptin TAKE ONE TABLET BY MOUTH EVERY MORNING ketorolac 0.5 % ophthalmic solution Commonly known as: ACULAR lidocaine 5 % ointment Commonly known as: XYLOCAINE lisinopril-hydroCHLOROthiazide 10-12.5 MG per tablet Commonly known as: ZESTORETIC Take 1 tablet by mouth 1 (one) time each day LORazepam 0.5 MG tablet Commonly known as: ATIVAN Take 1 tablet (0.5 mg total) by mouth 2 (two) times a day if needed for anxiety for up to 10 days LORazepam 1 MG tablet Commonly known as: ATIVAN TAKE ONE TABLET BY MOUTH THREE TIMES A DAY methocarbamol 500 MG tablet Commonly known as: ROBAXIN TAKE 1 TABLET BY MOUTH TWICE DAILY NEEDED FOR MUSCLE SPASMS moxifloxacin 0.5 % ophthalmic solution Commonly known as: VIGAMOX nicotine 7 MG/24HR Commonly known as: Nicoderm CQ Place 1 patch on the skin 1 (one) time each day at the same time nicotine 14 MG/24HR Commonly known as: Nicoderm CQ Place 1 patch on the skin 1 (one) time each day at the same time nicotine 21 MG/24HR Commonly known as: NICODERM CQ pantoprazole 40 MG EC tablet Commonly known as: PROTONIX TAKE 1 TABLET BY MOUTH DAILY prednisoLONE acetate 1 % ophthalmic suspension Commonly known as: PRED FORTE Reconstitube misc Reconstitube misc Reconstitube misc Reconstitube misc risperiDONE 2 MG tablet Commonly known as: RisperDAL TAKE ONE TABLET BY MOUTH TWICE A DAY senna 8.6 MG tablet Commonly known as: SENOKOT Serevent Diskus 50 MCG/DOSE diskus inhaler Generic drug: salmeterol sodium chloride 0.65 % nasal spray Commonly known as: OCEAN Stool Softener/Laxative 8.6-50 MG per tablet Generic drug: senna-docusate TAKE 2 TABLETS BY MOUTH AT BEDTIME Tab-A-Gianluca tablet TAKE 1 TABLET BY MOUTH EVERY MORNING timolol 0.5 % ophthalmic solution Commonly known as: TIMOPTIC Ventolin HFA 108 (90 Base) MCG/ACT inhaler Generic drug: albuterol HFA INHALE 1 PUFF BY MOUTH NEEDED Xalatan 0.005 % ophthalmic solution Generic drug: latanoprost zolpidem 5 MG tablet Commonly known as: AMBIEN Where to Get Your Medications These medications were sent to [address] [id number] ?? oxyCODONE 5 MG immediate release tablet Physical Exam at Discharge Discharge Condition: fair Gen: Alert and oriented x3. No acute distress. Extremity: Surgical site dressing clean dry and intact. Discharge Plan Discharge Summary Plan Discharge instructions given: Patient and Care provider Discharge disposition: Meets home bound criteria Prescriptions: Medication reconciliation completed. New prescriptions provided. Education and Follow-up Counseled: regarding medications, Dressing Care, Follow up Appointment, Weight bearing status Patient to wear sling. Asked to avoid any push pull or lifting greater than 1 pound. Fall Precaution discussed. Discharge Planning: continue routine care pathway. 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 Dressing care reviewed with patient Follow-up in orthopedics in 2 weeks. Ice to incision PRN Perform exercises as advised including walking hourly Did have conversation with the patient about pain medication. At this time we will give her 90 tablets of oxycodone to utilize over the next week at most being 3 tablets every 6 hours. We again talked about use of this medication and concern of overdose. Prescription for Narcan provided. As the patient will likely utilize this medication she should call for refill if necessary to discuss options. Opioid Discussion Opioid pain medications are indicated as part of this patient's multimodal pain management plan. Dedicated time was spent today discussing the purpose, limited and responsible use, risks, benefits of, and alternatives for opioid pain medications. An opioid patient information sheet was provided outlining this conversation. documented in this encounter Discharge Instructions AttachmentsThe following attachments cannot be sent through Care Everywhere. Shoulder Arthroscopy Care After (Bulgarian)documented in this encounter Medications at Time of Discharge Medication Sig Dispensed Refills Start Date End Date docusate sodium (COLACE) Take 100 mg by mouth 0 100 MG capsule 2 (two) times a day if needed dorzolamide-timolol Administer 1 drop 10 mL 9 (COSOPT) 22.3-6.8 MG/ML into both eyes [...] MCG/DOSE diskus inhaler (two) times a day sodium chloride (OCEAN) Administer 2 sprays 0 0.65 % nasal spray into each nostril 3 (three) times a day if needed for congestion Sofosbuvir-Velpatasvir Take 1 tablet by 0 (Epclusa) 400-100 MG mouth 1 (one) time tablet each day timolol (TIMOPTIC) 0.5 % Administer 1 drop 0 ophthalmic solution into affected eye(s) 2 times daily ACCU-CHEK SMARTVIEW test USE DIRECTED 200 each 3 201807/08/2020 stripIndications: TESTING TWICE DAILY Controlled type 2 diabetes mellitus without complication, without long-term current use of insulin ([facility]) ACETAMINOPHEN EXTRA TAKE TWO TABLETS BY 100 tablet 11 020 03/18/2020 STRENGTH 500 MG MOUTH THREE TIMES A tabletIndications: DAY NEEDED FOR Osteoarthritis of both PAIN knees, unspecified osteoarthritis type amLODIPine (NORVASC) 5 MG TAKE 1 TABLET BY 90 tablet 3 03/2105/18/2020 tabletIndications: MOUTH DAILY Hypertension, essential, benign ASPIRIN LOW DOSE 81 MG CHEW ONE TABLET BY 100 tablet 4 09/1812/24/2019 chewable MOUTH DAILY tabletIndications: Controlled type 2 diabetes mellitus without complication, without long-term current use of insulin (HCC) cefdinir (OMNICEF) 300 MG TAKE 1 CAPSULE BY 0 01/202012/03/2020 capsule MOUTH EVERY 12 HOURS FOR 10 DAYS Cetirizine HCl 10 MG Take 10 mg by mouth 0 12/03/2020 capsule 1 (one) time each day if needed diclofenac (VOLTAREN) 1 % Apply topically 2 100 g 1 10/201806/01/2021 topical gelIndications: (two) times a day To Acute pain of right affected shoulder shoulder pain DULoxetine (CYMBALTA) 60 TAKE TWO CAPSULES BY 60 capsule 5 0 05/02/2019 12/13/[address] capsuleIndications: MOUTH EVERY DAY Major depressive disorder, recurrent episode, moderate ([facility]) enoxaparin (LOVENOX) 40 INJECT 40MG/0.4ML 0 05/2112/03/2020 MG/0.4ML solution SUBCUTANEOUSLY ONCE DAILY FOR 20 DAYS EPINEPHrine (EPIPEN) 0.3 INJECT NEEDED FOR 1 Syringe 1 0 04/06/2018 05/18/2020 MG/0.3ML injection A BEE STING syringeIndications: Bee sting allergy fluticasone (FLONASE) 50 USE (1) SPRAY TWICE 16 g 6 05/18/2020 MCG/ACT nasal DAILY IN EACH sprayIndications: NOSTRIL Allergic rhinitis, unspecified seasonality, unspecified trigger gabapentin (NEURONTIN) TAKE ONE CAPSULE BY 90 capsule 5 07/0 04/201812/04/2019 300 MG MOUTH THREE TIMES A capsuleIndications: DAY Chronic pain syndrome gabapentin (NEURONTIN) TAKE ONE TABLET BY 270 tablet 3 04/1505/18/2020 600 MG tabletIndications: MOUTH THREE TIMES A Controlled type 2 DAY --TAKE ALONG diabetes mellitus without WITH 300MG CAPSULES complication, without long-term current use of insulin ([facility]) hydroCHLOROthiazide Take 25 mg by mouth 0 019 02/20/2020 (HYDRODIURIL) 25 MG daily tablet hydrOXYzine (ATARAX) 25 Take 1 tablet (25 mg 90 tablet 3 12/04/2019 MG tabletIndications: total) by mouth Anxiety, Pruritic every 8 (eight) condition hours if needed for itching hydrOXYzine (ATARAX) 25 TAKE ONE TABLET 90 tablet 11 020 04/09/2020 MG tabletIndications: EVERY 8 HOURS IF Anxiety, Pruritic NEEDED FOR ITCHING condition insulin glargine (LANTUS) Inject 20 units SQ 15 mL 5 07/08/2020 100 UNIT/ML once in the evening injectionIndications: Type II diabetes mellitus with peripheral circulatory disorder ([facility]) Insulin Pen Needle 31G X 1 Pen needle 1 (one) 100 each 1 0 11/15/2018 05/18/2020 8 MM miscIndications: time each day Controlled type 2 diabetes mellitus without complication, without long-term current use of insulin ([facility]) ipratropium-albuterol USE ONE (1) VIAL VIA 180 mL 3 03/2010/05/2020 (DUO-NEB) 0.5-2.5 mg/3 mL NEBULIZER UP TO nebulizer EVERY 4 HOURS solutionIndications: NEEDED WHEEZING. Chronic obstructive pulmonary disease, unspecified COPD type ([facility]) JANUVIA 100 MG TAKE ONE TABLET BY 90 tablet 3 03/11/2019 tabletIndications: MOUTH EVERY MORNING Controlled type 2 diabetes mellitus without complication, without long-term current use of insulin ([facility]) latanoprost (XALATAN) Administer 1 drop 0 12/22/2020 0.005 % ophthalmic into affected eye(s) solution lidocaine (XYLOCAINE) 5 % Apply topically 0 03/0712/03/2020 ointment Apply small bead and rub in skin 2-4 times a day over painful back area. Wash off hands. lisinopril-hydroCHLOROthi Take 1 tablet by 30 tablet 09/201805/18/2020 azide mouth 1 (one) time (PRINZIDE,ZESTORETIC) each day 10-12.5 MG per tabletIndications: Hypertension, essential, benign LORazepam (ATIVAN) 0.5 MG Take 1 tablet (0.5 20 tablet 0 12/04/2019 tabletIndications: mg total) by mouth 2 Generalized anxiety (two) times a day if disorder needed for anxiety for up to 10 days LORazepam (ATIVAN) 1 MG TAKE ONE TABLET BY 90 tablet 1 09/1812/05/2019 tabletIndications: MOUTH THREE TIMES A Generalized anxiety DAY disorder methocarbamol (ROBAXIN) TAKE 1 TABLET BY 120 tablet 3 201805/18/2020 500 MG tabletIndications: MOUTH TWICE DAILY Acute pain of right NEEDED FOR MUSCLE shoulder SPASMS moxifloxacin (VIGAMOX) Administer 1 drop 0 201812/03/2020 0.5 % ophthalmic solution into affected eye(s) 4 (four) times a day Right eye Multiple Vitamin TAKE 1 TABLET BY 100 each 3 04/15/2019 (TAB-A-GIANLUCA) MOUTH EVERY MORNING tabletIndications: Preventative health care nicotine (NICODERM CQ) 14 Place 1 patch on the 30 patch 1 10/01/2018 05/18/2020 MG/24HRIndications: skin 1 (one) time Chronic obstructive each day at the same pulmonary disease, time unspecified COPD type ([facility]) nicotine (NICODERM CQ) 21 Place 1 patch on the 0 10/05/2020 MG/24HR skin 1 (one) time each day at the same time oxyCODONE (ROXICODONE) 5 TAKE 1 TABLET BY 42 tablet 0 10/2011/01/2019 MG immediate release MOUTH EVERY 8 HOURS tabletIndications: NEEDED FOR SEVERE Chronic pain syndrome PAIN FOR 14 DAYS oxyCODONE (ROXICODONE) 5 Take 2-3 tablets 90 tablet 0 10/3011/01/2019 MG immediate release every 6 hours as tabletIndications: S/P needed for pain. arthroscopy of right Take 2 tablets for shoulder pain rating 1 through 5. Take 3 tablets for pain rating 6 or greater. pantoprazole (PROTONIX) TAKE 1 TABLET BY 90 tablet 3 201905/18/2020 40 MG EC MOUTH DAILY tabletIndications: Gastroesophageal reflux disease without esophagitis risperiDONE (RisperDAL) 2 TAKE ONE TABLET BY 60 tablet 5 11/22/2019 MG tabletIndications: MOUTH TWICE A DAY Major depressive disorder, recurrent episode, moderate ([facility]) STOOL SOFTENER/LAXATIVE TAKE 2 TABLETS BY 180 tablet 3 09/2907/29/2020 50-8.6 MG per MOUTH AT BEDTIME tabletIndications: Chronic constipation VENTOLIN HFA 108 (90 INHALE 1 PUFF BY 18 g 5 9 06/01/2021 Base) MCG/ACT MOUTH NEEDED inhalerIndications: Chronic obstructive pulmonary disease, unspecified COPD type (HCC) zolpidem (AMBIEN) 5 MG Take 5 mg by mouth 0 09/2311/16/2019 tablet at night if needed documented as of this encounter Progress Notes Regan Kelly APRN, CNP - 10/31/2019 8:17 AM CDT Subjective 1 day status post right shoulder arthroscopy with subacromial decompression and acromioplasty, rightdistal clavicle excision, and right proximal biceps tenotomy. Overnight patient has had substantial pain with little relief. She does have a longstanding chronic use of oxycodone reported at 15 mg every 6 hours. Patient has been wearing her sling. She denies any attempt to move her shoulder. She denies any numbness or tingling in her right upper extremity. Physical Exam General: Alert and oriented x3. No acute distress. Flat affect with conversation. Right upper extremity dressing clean dry and intact. Patient able to make tight fist. No reported numbness or tingling to palpation. Any attempt at motion including her hand wrist elbow or shoulder is reported to significantly increased pain. Last Recorded Vitals Temp: [35.6 ??C (96.1 ??F)-36.6 ??C (97.9 ??F)] 35.9 ??C (96.6 ??F) Heart Rate: [77-102] 77 Resp: [9-18] 18 BP: (70-175)/(28-121) 158/93 Assessment/plan Postoperative pain-patient will be placed in observation for pain management. We will adjust medications to get her pain under further control. We will continue to assess situation throughout the day. Sling to you be continued to be worn. Patient should be up and walking or at least up to chair for repositioning. documented in this encounter OR Notes Op Note - Regan Velásquez MD - 10/30/2019 12:41 PM CDT Operative Note Date: 10/30/2019 Location: [facility] OR Name: Rena Fan, : 1950, Diagnosis Pre-op Diagnosis * Nontraumatic incomplete tear of right rotator cuff [M75.111] * Rotator cuff impingement syndrome of right shoulder [M75.41] * Arthritis of right acromioclavicular joint [M19.011] * Tendinopathy of right biceps tendon [M67.921] Post-op Diagnosis * Nontraumatic incomplete tear of right rotator cuff [M75.111] * Rotator cuff impingement syndrome of right shoulder [M75.41] * Arthritis of right acromioclavicular joint [M19.011] * Partial thickness tearing of right biceps tendon * Right grade 3 glenohumeral primary osteoarthritis Surgeon(s) and Role: * Regan Velásquez MD - Primary * Regan Kelly APRN, COMPLIANCE OFFICER - Assisting Procedure Summary Anesthesia: General ASA: III Estimated Blood Loss: Minimal Staff: Respiratory Care Instructor: Rhoda Galarza RN Scrub Person: Candice Murillo; Rebeca Lemon Indications: Rena Fan is an 69 y.o. female who is having surgery for Nontraumatic incomplete tear of right rotator cuff [M75.111] Rotator cuff impingement syndrome of right shoulder [M75.41] Arthritis of right acromioclavicular joint [M19.011] Tendinopathy of right biceps tendon [M67.921]. In Service Education Teacher Role: See note body. Intraoperative Findings: Reviewed in body of note. Implants PreOperative Note: The patient was seen in the preoperative area. The risks, benefits, complications, treatment options, non-operative alternatives, expected recovery and outcomes were reviewed again as previously discussed with the patient. Relavent clinic notes and the patient's consent were reviewed again. The site of surgery was properly noted/marked as necessary per policy. Opioid Discussion Opioid pain medications are indicated as part of this patient's multimodal pain management plan. Dedicated time was spent today discussing the purpose, limited and responsible use, risks, benefits of, and alternatives for opioid pain medications. An opioid patient information sheet was provided outlining this conversation. Procedure Details: PROCEDURE(S): 1. Arthroscopic right shoulder (revision) subacromial decompression and acromioplasty. 2. Arthroscopic right distal clavicle excision. 3. Arthroscopic right shoulder proximal biceps tenotomy. POSTOPERATIVE DIAGNOSES: Impingment syndrome, recurrent, right shoulder. Partial thickness, medium grade, articular sided rotator cuff tear, right shoulder. Acromioclavicular joint primary degenerative arthritis, right shoulder. Proximal biceps tendon partial thickness tearing, right shoulder. Moderate grade 3 right glenohumeral osteoarthritis. PREOPERATIVE MEDICATIONS: Ancef 2 gram IV. OPERATIVE DETAILS: After surgical site verification processes, the patient was brought to the operating room where they were given general anesthesia and preoperative medications. They were moved into the beach chair position and the shoulder had full range of motion under anesthesia. The shoulder andupper extremity were prepped and draped in the normal sterile orthopedic fashion. Marcaine was injected into the planned surgical incision sites. A posterior arthroscopic portal was established and thecamera was placed into the glenohumeral joint. A systematic arthroscopic inspection of the intraarticular structures was performed and photographs were saved documenting pertinent findings. No loose bodies were encountered, there was no significant synovitis and no significant effusion. The superior labrum and biceps anchor were intact. The biceps tendon was severely degenerative, with a split extending from the anchor distal to the biceps groove. The articular cartilage had a diffuse moderate grade3 chondrosis involving the humerus and glenoid. The remainder of the labrum appeared degenerative. The axillary pouch was free of abnormalities. There was an obvious partial thickness rotator cuff tearinvolving the articular side of the supraspinatus. This partial thickness tear appeared very chronic (probably residual from her previous repair), as there was no avulsion area of the medial tuberosity. The infraspinatus was intact. The subscapularis appeared intact but with mild partial thickness tearing involving the superior aspect. An anterior arthroscopic portal was established with needle localization and a soft tissue ablator was used to perform a proximal biceps tenotomy. The biceps tendon retracted out of the joint, into thebicipital groove. At this point, I made a 2 cm longitudinal incision in the anterior aspect of the axilla. Using blunt dissection in the subpectoral plane, the proximal biceps tendon sheath was opened and inspected. No loose body was evident within the sheath. The wound was thoroughly irrigated. A 2-0Vicryl was used to reapproximate skin edges and 4-0 Monocryl was used to close the skin in a subcuticular fashion. Mastisol and Steri-Strips were applied over the axillary incision. The camera was then moved through the posterior portal into the subacromial space. A lateral arthroscopic portal was established with needle localization and a shaver was used to perform a complete subacromial bursectomy. A soft tissue ablator was then used to remove the soft tissue from the undersurface of the anterior 1/3 of the acromion. I then used a bur to perform an acromioplasty, converting the acromion back towards a type 1 morphology. Bursal tissue was meticulously debrided from the bursal surface of the rotator cuff for optimal visualization of anatomy. The bursal surface of the cuff appeared intact. Using the anterior portal, a soft tissue ablator and shaver were used to expose the distal 8-10 mm of the distal clavicle. I then used a bur to excise the distal 8-10 mm of clavicle. Photographs were saved documenting bony changes. Photographs were saved documenting findings. This completed the procedure. Excess fluid was drained from the subacromial space and nylon sutures were used to close the arthroscopic portals. Sterile dressings were applied over the incisions and the arm was placed in a sling. The arm was found to be pink and vascularly intact at the completion of the procedure. The patient was awakened from anesthesia and delivered to recovery room in stable condition. Skilled assistance from a nurse practitioner was vital to the safety, efficiency, and quality of thesurgical care delivered; shoulder surgery is an involved, demanding, and complicated endeavor, extremely difficult to complete alone. The nurse practitioner specifically helped to safely position the pa tient, locate accurate arthroscopic portal placement locations, and helped in coordination of immediate surgical equipment availability. During surgery, our coordination of his skilled control of the arm/shoulder movement with my manipulation of surgical instruments helps to avoid iatrogenic injury. He also sutured all wounds, and applied dressings, and fit a sling. Recommended therapy protocol: decompression. Complications: None; patient tolerated the procedure well. Disposition: PACU - hemodynamically stable. Condition: stable Regan Velásquez MD documented in this encounter Miscellaneous Notes Preprocedure Instructions - Laney Vizcaino RN - 10/22/2019 9:31 AM CDT Patient has had surgery before and denies reaction with anesthesia. Denies family history of anesthesia reactions. Verified surgery is with Dr. Velásquez for right shoulder. Surgery instructions reviewed including NPO guidelines and reminded to follow primary care provider instructions on what medications to take day of surgery. Has diabetes and advised to check blood sugar day of surgery and bring reading with her. See care everywhere and legacy chart for past cardiac records. Has COPD and advised to bring inhaler day of surgery. Is a smoker and advised to refrain 24 hours prior to surgery. Denied questions and pre-operative nursing card given and encouraged to call with questions. COVID screening completed and sent to [facility] to schedule testing. documented in this encounter Plan of Treatment Upcoming Encounters Date Type Specialty Care Team Description 01/18/2022 Telemedicine Family Medicine Sebastian Griffiths MD [address] [place] [address] [phone] (Wo rk) documented as of this encounter Procedures Procedure Name Priority Date/Time Associated Diagnosis Comme nts POCT PRECISION Routine 10/31/2019 10:59 Results f or this GLUCOSE AM CDT procedure are i n the results section. POCT PRECISION Routine 10/31/2019 7:31 Results fo r this GLUCOSE AM CDT procedure are i n the results section. POCT PRECISION Routine 10/30/2019 11:34 Results f or this GLUCOSE PM CDT procedure are i n the results section. POCT PRECISION Routine 10/30/2019 5:29 Results fo r this GLUCOSE PM CDT procedure are i n the results section. POCT PRECISION Routine 10/30/2019 2:31 Results fo r this GLUCOSE PM CDT procedure are i n the results section. 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 documented in this encounter Results POCT Precision glucose (10/31/2019 10:59 AM CDT) P athologist Signature Glucose Blood, 96 70 - 100 10/31/2019 [facility] mg/dL 11:00 AM [facility] Comment: Meter ID: [id number] Capillary whole blood specimens should n ot [...] Time (Source) Location / / Volume Laterality 10/31/2019 10:59 10/31/2019 AM CDT 11:00 AM CDT Regan Velásquez MD LAB POINT OF CARE TEST DOCKE D DEVICE UNSOLICITED RESULTS Performing Organization Address [facility] e Number [facility] [address] [place] [address] [phone] (ABNORMAL) POCT Precision glucose (10/31/2019 7:31 AM CDT) athologist Signature Glucose Blood, 152 (H) 70 - 100 10/31/2019 [facility] P[facility] mg/dL 7:34 AM [facility] Comment: Meter ID: [id number] Capillary whole blood specimens should n ot [...] Time (Source) Location / / Volume Laterality 10/31/2019 7:31 AM 0 7:34 CDT AM CDT Regan Velásquez MD LAB POINT OF CARE TEST DOCKE D DEVICE UNSOLICITED RESULTS Performing Organization Address [facility] Phon e Number [facility] [address] [place] [phone] (ABNORMAL) POCT Precision glucose (10/30/2019 11:34 PM CDT) P athologist Signature Glucose Blood, 212 (H) 70 - 100 10/30/2019 [facility] POC mg/dL 11:35 PM CDT [facility] Comment: Meter ID: [id number] Capillary whole blood specimens should n ot [...] Time (Source) Location / / Volume Laterality 10/30/2019 11:34 10/30/2019 PM CDT 11:36 PM CDT Regan Velásquez MD LAB POINT OF CARE TEST DOCKE D DEVICE UNSOLICITED RESULTS Performing Organization Address [facility] e [facility] [address] [place] [phone] (ABNORMAL) POCT Precision glucose (10/30/2019 5:29 PM CDT) P athologist Signature Glucose Blood, 146 (H) 70 - 100 10/30/2019 [facility] mg/dL 5:29 PM T [facility] Comment: Meter ID: [id number] Capillary whole blood specimens should n ot [...] Time (Source) Location / / Volume Laterality 10/30/2019 5:29 PM 0 5:29 CDT PM CDT Regan Velásquez MD LAB POINT OF CARE TEST DOCKE D DEVICE UNSOLICITED RESULTS Performing Organization Address [facility] e Number [facility] [address] [place] [phone] (ABNORMAL) POCT Precision glucose (10/30/2019 2:31 PM CDT) P athologist Signature Glucose Blood, 156 (H) 70 - 100 10/30/2019 [facility] mg/dL 2:32 PM CDT [facility] Comment: Meter ID: [id number] Capillary whole blood specimens should n ot [...] Time (Source) Location / / Volume Laterality 10/30/2019 2:31 PM 0 2:32 CDT PM CDT Regan Velásquez MD LAB POINT OF CARE TEST DOCKE D DEVICE UNSOLICITED RESULTS Performing Organization Address [facility] e Number [facility] [address] [place] [phone] POCT Precision glucose (10/30/2019 10:26 AM CDT) athologist Signature Glucose Blood, 98 70 - 100 10/30/2019 [facility] POC mg/dL 10:27 AM CDT [facility] Comment: Meter ID: [id number] Capillary whole blood specimens should n ot [...] Time (Source) Location / / Volume Laterality 10/30/2019 10:26 10/30/2019 AM CDT 10:28 AM CDT Regan Velásquez MD LAB POINT OF CARE TEST DOCKE D DEVICE UNSOLICITED RESULTS Performing Organization Address [facility] Phon e Number [facility] [address] [place] [phone] documented in this encounter Visit Diagnoses Diagnosis S/P arthroscopy of right shoulder - Prim sudhakar Nontraumatic incomplete tear of right ro tator cuff Rotator cuff impingement syndrome of rig ht shoulder Arthritis of right acromioclavicular terri nt Tendinopathy of right biceps tendon documented in this encounter Administered Medications Inactive Administered Medications - up to 3 most recent administrations Medication Order MAR Action Action Date Dose Rate Site acetaminophen (TYLENOL) suppository 650 mg 650 mg, Rectal, Every 6 hours scheduled, First dose on Mon10/30/19 at 1800, For 10 days, Phase II/On Unit, Give SC if unabl e to administer by mouth or feeding tube. acetaminophen (TYLENOL) suspension 640 m g 640 mg (rounded from 650 mg), Oral, Every 6 hours sche duled, First dose on Mon10/30/19 at 1800, For 10 days, Phase II/O n Unit, Give oral liquid if patient prefers or per feeding tube if present. acetaminophen (TYLENOL) tablet 650 mg Given 10/31/2019 12:35 PM CDT 650 mg 650 mg, Oral, Every 6 hours scheduled, First dose on Mon10/30/19 at 1800, For 10 days, Phase II/On Unit Given 10/31/2019 6:04 AM CDT 650 mg Given 10/30/2019 11:35 PM CDT 650 mg amLODIPine (NORVASC) tablet 5 mg Given 10/31/2019 8:28 AM CDT 5 mg 5 mg, Oral, Daily, First dose on Deepika 10/31/19 at 0900, For 10 days, Phase II/On Unit bupivacaine-EPINEPHrine (MARCAINE w/EPI) Given 10/30/2019 12:53 PM CDT 20 mL 0.25% [id number] injection As needed, Starting on Mon10/30/19 at 1253, Intraprocedure ceFAZolin (ANCEF) IVPB 2 g in 50 mL Given 10/30/2019 11:40 AM CDT 2 g 100 mL/hr 2 g, Intravenous, at 100 mL/hr, Administer over 30 Minutes, Once, On Mon10/30/19 at 1130, For 1 dose, Preprocedure, Administer within 60 minutes of incision., Indication: Surgical Site ceFAZolin (ANCEF) IVPB 2 g in 50 mL Given 10/31/2019 6:04 AM CDT 2 g 100 mL/hr 2 g, Intravenous, at 100 mL/hr, Administer over 30 Minutes, Every 6 hours, First dose on Mon10/30/19 at 1800, For 3 doses, Phase II/On Unit, If patient goes home today, give one dose of IV ancef before d/c., Indication: Surgical Site Given 10/30/2019 11:35 PM CDT 2 g 100 mL/hr Given 10/30/2019 6:13 PM CDT 2 g 100 mL/hr dextrose (GLUTOSE) oral gel 40% (1 Tube = net wt. 37.5 gm containing 15 gm dextrose) 1 Tube, Oral, As needed, low blood sugar, severe hypog lycemia, Starting on Mon10/30/19 at 1542, For 10 days, Phase II/O n Unit, If patient is conscious/alert (may be disoriented), give for blood glucose value less than 45 mg/dL. Alternative to juice. Do not give if patient has received juice. Repe at as ordered until blood glucose above 70 mg/dL. dextrose 50 % solution 25 mL 25 mL, Intravenous, As needed, low blood sugar, severe hypoglycemia, Starting on Mon10/30/19 at 1542, For 10 days, Phase II/On Unit, If patient NPO but conscious/alert (may be disoriented), give for blood g lucose value less than 45 mg/dL. Repeat as ordered until blood glucose above 70 mg/dL. dextrose 50 % solution 25 mL 25 mL, Intravenous, As needed, low blood sugar, severe hypoglycemia, Starting on Mon10/30/19 at 1542, For 5 days, Phase I I/On Unit, If patient UNCONSCIOUS or NOT ALERT, give for blood glucose value less than 70 mg/dL . Repeat as ordered until blood glucose above 70 mg/dL. dorzolamide-timolol (COSOPT) 22.3-6.8 MG/ML Given 10/31/2019 8:33 AM CDT 1 drop ophthalmic solution 1 drop 1 drop, Both Eyes, 2 times daily, First dose on Mon10/30/19 at 2100, Phase II/On Unit DULoxetine (CYMBALTA) DR capsule 120 mg Given 10/31/2019 8:30 AM CDT 120 mg 120 mg, Oral, Daily, First dose on Mon10/31/19 at 0900, For 10 days, Phase II/On Unit, Do not crush or chew. EPINEPHrine (ADRENALIN) injection Given 10/30/2019 12:52 PM CDT 2 mL As needed, Starting on Mon10/30/19 at 1252, Intraprocedure famotidine (PEPCID) injection 20 mg Given 10/30/2019 10:34 AM CDT 20 mg 20 mg, Intravenous, Administer over 2 Minutes, Once, On Mon10/30/19 at 1030, For 1 dose, Preprocedure, Dilute in 5 mL of NS and IV Push over 2 minutes fentaNYL (SUBLIMAZE) injection 50 mcg Given 10/30/2019 3:07 PM CDT 50 mcg 50 mcg, Intravenous, Every 5 min PRN, severe pain, Starting on Mon10/30/19 at 1333, For 5 doses, Recovery (only) fentaNYL (SUBLIMAZE) injection 50 mcg Given 10/30/2019 10:51 AM CDT 50 mcg 50 mcg, Intravenous, Once, On Mon10/30/19 at 1130, For 1 dose, Preprocedure gabapentin (NEURONTIN) capsule 900 mg Given 10/31/2019 12:36 PM CDT 900 mg 900 mg, Oral, 3 times daily, First dose on Mon10/30/19 at 2100, Phase II/On Unit Given 10/31/2019 8:30 AM CDT 900 mg Given 10/30/2019 9:26 PM CDT 900 mg Glucagon HCl (rDNA) injection 1 mg 1 mg, Intramuscular, Every 15 min PRN, low blood sugar , severe hypoglycemia, Starting on Mon10/30/19 at 1542, For 5 days, Phase II/ On Unit, If no IV access, give for blood glucose value less than 45 mg/dL if pat ient unconscious or not alert. Caution: glucagon can cause nause a and vomiting. Roll patient on their side when administering to prevent aspiration. hydroCHLOROthiazide (HYDRODIURIL) tablet 25 mg Given 10/31/2019 6:04 AM CDT 25 mg 25 mg, Oral, Every morning before breakfast, First dose on Deepika 10/31/19 at 0600, Phase II/On Unit insulin glargine (LANTUS) Given 10/30/2019 9:31 PM CDT 20 Units Left Lower Abdomen inj pen 20 Units 20 Units, Subcutaneous, Nightly, First dose on Mon10/30/19 at 2100, For 10 days, Phase II/On Unit, Target 0.1-0.5 units/kg based on patient's insulin sensitivity, long acting/total daily insulin ratio. insulin lispro (HumaLOG) Given 10/31/2019 8:51 AM CDT 1 Units Left Lower Abdomen injection 1-10 Units 1-10 Units, Subcutaneous, 3 times daily with meals, First dose on Mon10/30/19 at 1800, Phase II/On Unit, Glucose Level Humalog Dose (units) 140 -159 mg/dL 1 unit 160 -179 mg/dL 2 unit 180 -209 mg/dL 3 unit 210 -239 mg/dL 4 unit 240 -269 mg/dL 5 unit 270 -299 mg/dL 6 unit 300 -349 mg/dL 8 unit 350 - 399 mg/dL 9 unit Greater than 400 mg/dL 10 ask physician Given 10/30/2019 7:41 PM CDT 1 Units Left Lower Abdomen insulin lispro (HumaLOG) Given 10/31/2019 12:37 PM CDT 3 Units Left Lower Abdomen injection 1-8 Units 1-8 Units, Subcutaneous, 4 times daily with meals and nightly, First dose on Mon10/30/19 at 1800, For 10 days, Phase II/On Unit, Give 1 unit/15 g carbs Carbs Eaten (g) Humalog Dose (units) 8-22 1 23-37 2 38-52 3 53-67 4 68-82 5 83-97 6 98-112 7 113-127 8 Greater than 127 Ask MD Greater than 134 Ask MD Do not give if pre-prandial glucose is less than 70 mg/dL. Follow Hypoglycemic protocol. Contact clinician for new carb counting insulin orders. Given 10/31/2019 8:54 AM CDT 2 Units Left Lower Abdomen Given 10/30/2019 7:43 PM CDT 6 Units Left Lower Abdomen insulin lispro (HumaLOG) Given 10/30/2019 11:38 PM CDT 3 Units Left Lower Abdomen injection 1-8 Units 1-8 Units, Subcutaneous, Nightly, First dose on Mon10/30/19 at 2100, Phase II/On Unit, HS Correction Dosing Glucose Level Humalog Dose (units) 180-209 mg/dL 2 units 210-239 mg/dL 3 units 240-269 mg/dL 4 units 270-299 mg/dL 5 units 300-349 mg/dL 6 units 350-400 mg/dL 7 units Greater than 400 mg/dL 8 units and notify clinician lactated Ringer's infusion New Bag 10/30/2019 1:04 PM CDT 75 mL/hr, Intravenous, Continuous, Starting on Mon10/30/19 at 1000, For 5 days Continued from Pre 10/30/2019 11:46 AM CDT New Bag 10/30/2019 10:30 AM CDT 75 mL/hr 75 mL/hr lactated Ringer's infusion New Bag 10/30/2019 6:13 PM CDT 100 mL/hr 100 mL/hr 100 mL/hr, Intravenous, Continuous, Starting on Mon10/30/19 at 1630, For 5 days, Phase II/On Unit, Saline lock IV once patient tolerating PO well. naloxone (NARCAN) injection 0.4 mg 0.4 mg, Intravenous, Once as needed, res piratory depression, if apneic, Starting on Mon10/30/19 at 1333, For 3 doses, Recovery & On Unit, If RR is less than 8 ondansetron (ZOFRAN) injection 4 mg 4 mg, Intravenous, Every 6 hours PRN, na usea, vomiting, Starting on Mon10/30/19 at 1542, For 10 days, Phase II/On Unit, 1st Line. Give IV if patient is unable to take orally. If inadequate response within 60 minutes, proc eed to next-line agent or contact provider if no further options ordered. ondansetron ODT (ZOFRAN-ODT) dispersible tablet 4 mg 4 mg, Oral, Every 6 hours PRN, nausea, v omiting, Starting on Mon10/30/19 at 1542, For 10 days, Phase II/On Unit, 1st Line. If inadequate response within 60 minutes, proceed to next-line agent or contact provider if no f urther options ordered. Patient should allow tablet to dissolve on tongue. Do not remove from blister pack until just before administering. oxyCODONE (ROXICODONE) 5 MG/5ML solution 10 mg 10 mg, Oral, Every 4 hours PRN, For pain rating 6-10, Starting on Mon10/30/19 at 1542, For 10 days, Phase II/On Unit, Give oral liquid if patient prefers or per feeding tube if present. 2nd Line. If inadequate respo nse within 60 minutes, proceed to next-line agent for same PRN reason or contact provider if no further options ordered. oxyCODONE (ROXICODONE) 5 MG/5ML solution 7.5 mg 7.5 mg, Oral, Every 4 hours PRN, For vishal n rating 1-5, Starting on Mon10/30/19 at 1542, For 10 days, Phase II/On Unit, Give oral liquid if patient prefers or per feeding tube if present. 2nd Line. If inadequate respo nse within 60 minutes, proceed to next-line agent for same PRN reason or contact provider if no further options ordered. oxyCODONE (ROXICODONE) immediate release tablet 10 mg 10 mg, Oral, Every 4 hours PRN, For pain rating 1-5, S tarting on Mon10/30/19 at 1542, For 10 days, Phase II/On Unit, 2nd Line. If inad equate response within 60 minutes, proceed to next-line agent for same PRN reason or contact provider if no further options ordered. oxyCODONE (ROXICODONE) immediate release Given 10/31/2019 2:16 P M CDT 15 mg tablet 15 mg 15 mg, Oral, Every 4 hours PRN, For pain rating 6-10, Starting on Mon10/30/19 at 1542, For 10 days, Phase II/On Unit, 2nd Line. If inadequate response within 60 minutes, proceed to next-line agent for same PRN reason or contact provider if no further options ordered. Given 10/31/2019 9:49 AM CDT 15 mg Given 10/31/2019 6:12 AM CDT 15 mg oxyCODONE HCl ER (OxyCONTIN) 10 mg Given 10/30/2019 10:51 AM CDT 10 mg 10 mg, Oral, Once, On Mon10/30/19 at 1000, For 1 dose, Preprocedure, Do not crush, chew, or split. pantoprazole (PROTONIX) EC tablet 40 mg Given 10/31/2019 8:30 AM CDT 40 mg 40 mg, Oral, Daily, First dose on Mon10/31/19 at 0900, Phase II/On Unit, Do not crush, chew, or split. prednisoLONE acetate (PRED FORTE) 1 % Given 10/30/2019 6:12 PM C DT 1 drop ophthalmic suspension 1 drop 1 drop, Ophthalmic, Every 6 hours while awake, First dose on Mon10/30/19 at 1630, Phase II/On Unit risperiDONE (RisperDAL) tablet 2 mg Given 10/31/2019 8:29 AM CDT 2 mg 2 mg, Oral, 2 times daily, First dose on Mon10/30/19 at 2100, For 10 days, Phase II/On Unit, NIOSH Class 2: ? ? Unit dose tablet: wear single pair gloves (ASTM). ? ? Intrauterine device: wear double pair gloves (ASTM). ? ? Topical: wear double pair gloves (ASTM), chemo gown. If there is potential for inhalation, respiratory protection is recommended. ? ? Oral solution/feeding tube administration/potential for vomit or spit up: wear double gloves (ASTM), chemo gown, mask, eye protection. ? ? Injection solution: wear double gloves (ASTM), mask, eye protection. Wear chemo gown if liquid could splash. ? ? Avoid contact during /while nursing. Given 10/30/2019 9:26 PM CDT 2 mg senna (SENOKOT) tablet 17.2 mg Given 10/30/2019 9:26 PM CDT 17.2 mg 17.2 mg (2 tablet), Oral, Nightly, First dose on Mon10/30/19 at 2100, Phase II/On Unit documented in this encounter Active and Recently Administered Medications Times are shown in CDT. Scheduled Medication Order 10/29/2019 10/30/2019 10/31/2019 acetaminophen (TYLENOL) suppository 650 mg(Linked Group 1) 1720 (See Alternative - Provider: Rocio Herrera)2335 (See Alternative - Provider: IVELISSE Carey) 0604 (See Alternative - Provider: IVELISSE Vazquez)1235 (See Alternative - Provider: Aissatou Fontana RN) 650 mg, Rectal, Every 6 hours scheduled, First dose on Mon10/30/19 at 1800, For 10 days, Phase II/On Unit, Give SC if unable to administer by mouth or feeding tube. acetaminophen (TYLENOL) suspension 640 mg(Linked Group 1) 1720 (See Alternative - Provider: Rocio Herrera)2335 (See Alternative - Provider: IVELISSE Carey) 0604 (See Alternative - Provider: IVELISSE Vazquez)1235 (See Alternative - Provider: Aissatou Fontana, MARLENE) 640 mg (rounded from 650 mg), Oral, Ever y 6 hours scheduled, First dose on Mon10/30/19 at 1800, For 10 days, Phase II/On Unit, Give oral liquid if patient prefers or per feeding tube if present. acetaminophen (TYLENOL) tablet 650 mg(Linked Group 1) 1720 (Given - Provider: Rocio Herrera)2335 (Given - Provider: IVELISSE Carey) 0604 (Given - Provider: IVELISSE Carey)1235 (Given - Provider: Aissatou Fontana, MARLENE) 650 mg, Oral, Every 6 hours scheduled, F irst dose on Mon10/30/19 at 1800, For 10 days, Phase II/On Unit amLODIPine (NORVASC) tablet 5 mg 08 (Given - Provider: Aissatou Fontana, MARLENE) 5 mg, Oral, Daily, First dose on 10/18 at 0900, For 10 days, Phase II/On Unit ceFAZolin (ANCEF) IVPB 2 g in 50 mL (COMPLETED) 1140 (Given - Provider: Catherine Rincon, MARLENE) 2 g, Intravenous, at 100 mL/hr, Administ er over 30 Minutes, Once, Mon10/30/19 at 1130, For 1 dose, Preprocedure, Administer within 60 minutes of incision., Indication: Surgical Site ceFAZolin (ANCEF) IVPB 2 g in 50 mL (COMPLETED) 1812 (Given - Provider: Rocio Herrera)2335 (Given - Provider: IVELISSE Carey) 0604 (Given - Provider: IVELISSE Carey) 2 g, Intravenous, at 100 mL/hr, Administ er over 30 Minutes, Every 6 hours, First dose on Mon10/30/19 at 1800, For 3 doses, Phase II/On Unit, If patient goes home today, give one dose of IV ancef before d/c., Indication: Surgical Site dorzolamide-timolol (COSOPT) 22.3-6.8 MG/ML ophthalmic solut ion 1 drop 2127 (Not Given - Provider: IVELISSE Owen - Reason: Patient/family refused) 08 (Given - Provider: Aissatou mathur, RN) 1 drop, Both Eyes, 2 times daily, First dose on Mon10/30/19 at 2100, Phase II/On Unit DULoxetine (CYMBALTA) DR capsule 120 mg 08 (Given - Provider: Aissatou Fontana, RN) 120 mg, Oral, Daily, First dose on Mon at 0900, For 10 days, Phase II/On Unit, Do not crush or chew. famotidine (PEPCID) injection 20 mg (COMPLETED) 103 (Given - Provider: Hesham Chavarria, MARLENE) 20 mg, Intravenous, Administer over 2 Mi nutes, Once, Mon10/30/19 at 1030, For 1 dose, Preprocedure, Dilute in 5 mL of NS and IV Push over 2 minutes fentaNYL (SUBLIMAZE) injection 50 mcg (COMPLETED) 105 (Given - Provider: Hesham Chavarria, MARLENE) 50 mcg, Intravenous, Once, Mon10/30/19 at 1130, For 1 dose, Prep rocedure gabapentin (NEURONTIN) capsule 900 mg (Given - Provider: IVELISSE Owen) 0830 (Given - Provider: iAssatou mathur, MARLENE)1236 (Given - Provider: Aissatou Fontana, MARLENE) 900 mg, Oral, 3 times daily, First dose on Mon10/30/19 at 2100, Phase II/On Unit hydroCHLOROthiazide (HYDRODIURIL) tablet 25 mg 603 (Given - Provider: IVELISSE Carey) 25 mg, Oral, Every morning before breakf ast, First dose on Mon10/31/19 at 0600, Phase II/On Unit insulin glargine (LANTUS) inj pen 20 Units 2130 (Given - Provider: IVELISSE Owen) 20 Units, Subcutaneous, Nightly, First d ose on Mon10/30/19 at 2100, For 10 days, Phase II/On Unit, Target 0.1-0.5 units/kg based on patient's insulin sensitivity, long acting/total daily insulin ratio. insulin lispro (HumaLOG) injection 1-10 Units 1940 (Given - Provider: IVELISSE Owen - Comment: late supper) 0851 (Given - Provider: Aissatou Fontana, RN)1236 (Not Given - Provider: Aissatou Fontana, RN - Reason: Order parameters not met) 1-10 Units, Subcutaneous, 3 times daily with meals, First dose on Mon10/30/19 at 1800, Phase II/On Unit, Glucose Level Humalog Dose (units) 140 -159 mg/dL 1 unit 160 -179 mg/dL 2 unit 180 -209 mg/dL 3 u nit 210 -239 mg/dL 4 unit 240 -269 mg/dL 5 unit 270 -299 mg/dL 6 unit 300 -349 mg/dL 8 unit 350 - 399 mg/dL 9 unit Greater than 400 mg/dL 10 ask physician insulin lispro (HumaLOG) injection 1-8 Units 1942 (Given - Provider: IVELISSE Owen - Comment: Took patient a long time to finish her meal. Ate slowly.) 0044 (Not Given - Provider: IVELISSE Julio - Reason: Order parameters not met)0854 (Given - Provider: Aissatou Fontana, RN)1237 (Given - Provider: Aissatou Fontana, RN) 1-8 Units, Subcutaneous, 4 times daily w ith meals and nightly, First dose on Mon10/30/19 at 1800, For 10 days, Phase II/On Unit, Give 1 unit/15 g carbs Carbs Eaten (g) Humalog Dose (units) 8-22 1 23-37 2 38-52 3 53-67 4 68-82 5 83-97 6 98-112 7 113-127 8 Greater than 127 Ask MD Greater than 134 Ask MD Do not give if pre-prandial glucose is less than 70 mg/dL. Follow Hypoglycemic protocol. Contact clinician for new carb counting insulin orders. insulin lispro (HumaLOG) injection 1-8 Units 2337 (Given - Provider: IVELISSE Carey) 1-8 Units, Subcutaneous, Nightly, First dose on Mon10/30/19 at 2100, Phase II/On Unit, HS Correction Dosing Glucose Level Humalog Dose (units) 180-209 mg/dL 2 units 210-239 mg/dL 3 units 240-269 mg/dL 4 units 270-299 mg/dL 5 units 300-349 mg/ dL 6 units 350-400 mg/dL 7 units Greater than 400 mg/dL 8 units and notify clinician ketorolac (ACULAR) 0.5 % ophthalmic solution 1 drop 1816 (Canceled Entry - Provider: Libby Hussein, JassD)2133 (Not Given - Provider: IVELISSE Owen - Reason: Patient/family refused) 0833 (Not Given - Provider: Aissatou Fontana RN - Reason: Patient/family refused)1241 (Not Given - Provider: Aissatou Fontana RN - Reason: Patient/family refused) 1 drop, Ophthalmic, 4 times daily, First dose on Mon10/30/19 at 1700, Phase II/On Unit latanoprost (XALATAN) 0.005 % ophthalmic solution 1 drop 2125 (Not Given - Provider: IVELISSE Owen - Reason: Patient/family refused) 1 drop, Ophthalmic, Daily, First dose on Mon10/30/19 at 2100 , Phase II/On Unit moxifloxacin (VIGAMOX) 0.5 % ophthalmic solution 1 drop 2100 (Canceled Entry - Provider: Libby Hussein, Marv - Comment: med not available) 0845 (Not Given - Provider: Aissatou Fontana RN - Reason: Patient/family refused - Comment: i don not put no medicine in my eye)1242 (Not Given - Provider: Aissatou Fontana RN - Reason: Patient/family refused) 1 drop, Ophthalmic, 4 times daily, First dose on Mon10/30/19 at 2100, Phase II/On Unit oxyCODONE HCl ER (OxyCONTIN) 10 mg (COMPLETED) 1051 (Given - Provider: Hesham Chavarria, MARLENE) 10 mg, Oral, Once, Mon10/30/19 at 1000, For 1 dose, Preprocedure, Do not crush, chew, or split. pantoprazole (PROTONIX) EC tablet 40 mg 0830 (Given - Provider: Aissatou Fontana RN) 40 mg, Oral, Daily, First dose on Mon at 0900, Phase II/On Unit, Do not crush, chew, or split. prednisoLONE acetate (PRED FORTE) 1 % ophthalmic suspension 1 drop 1811 (Given - Provider: Rocio Herrera - Comment: Pharmacy needed to verify)2133 (Not Given - Provider: IVELISSE Owen - Reason: Patient/family refused) 0833 (Not Given - Provider: Aissatou Fontana RN - Reason: Patient/family refused - Comment: states she doesn't normally take.)1500 (Canceled Entry - Provider: Automatic Discharge Provider - Comment: Automatically canceled at di 1 drop, Ophthalmic, Every 6 hours while awake, First dose on Mon10/30/19 at 1630, Phase II/On Unit scontinue of medi cation order) risperiDONE (RisperDAL) tablet 2 mg 2125 (Given - Provider: IVELISSE Owen) 0829 (Given - Provider: Aissatou mathur RN) 2 mg, Oral, 2 times daily, First dose on Mon10/30/19 at 2100, For 10 days, Phase II/On Unit, NIOSH Class 2: ? ? Unit dose tablet: wear single pair gloves (ASTM). ? ? Intrauterine device: wear double vishal r gloves (ASTM). ? ? Topical: wear double pair gloves (ASTM), chemo gown. If there is potential for inhalation, respiratory protection is recommended. ? ? Oral solution/feeding tube administration/poten tial for vomit or spit up: wear double g loves (ASTM), chemo gown, mask, eye protection. ? ? Injection solution: wear double gloves (ASTM), mask, eye protection. Wear chemo gown if liquid could splash. ? ? Avoid contact during /while nursing. senna (SENOKOT) tablet 17.2 mg 2125 (Giv en - Provider: IVELISSE Owen) 17.2 mg (2 tablet), Oral, Nightly, First dose on Mon10/30/19 at 2100, Phase II/On Unit Continuous Medication Order 10/29/2019 10/30/2019 10/31/2019 lactated Ringer's infusion 1030 (New Bag - Provider: Lucrecia Cuellar RN)1146 (Continued from Pre - Provider: Dana Booth CRNA)1304 (New Bag - Provider: Dana Booth CRNA)1424 (Anesthesia Volume Adjustment - Provider: Dana Booth CRNA) 75 mL/hr, Intravenous, at 75 mL/hr, Cont inuous, Starting Mon10/30/19 at 1000, For 5 days lactated Ringer's infusion 1813 (New Bag - Provider: Rocio Herrera)2159 (Stopped - Provider: Rocio Herrera) 100 mL/hr, Intravenous, at 100 mL/hr, Co ntinuous, Starting Mon10/30/19 at 1630, For 5 days, Phase II/On Unit, Saline lock IV once patient tolerating PO well. PRN Medication Order 10/29/2019 10/30/2019 10/31/2019 albuterol HFA (PROVENTIL HFA;VENTOLIN HFA) 108 (90 Bas e) MCG/ACT inhaler 2 puff 2 puff, Inhalation, Every 4 hours PRN, w heezing, Starting Mon10/30/19 at 1542, Phase II/On Unit bupivacaine-EPINEPHrine (MARCAINE w/EPI) 0.25% -1: inj ection (CANCELED) 1253 (Given - Provider: Regan Velásquez MD) As needed, Starting Mon10/30/19 at 1253, Intraprocedure dextrose (GLUTOSE) oral gel 40% (1 Tube = net wt. 37.5 gm containing 15 gm dextrose)(Linked Group 2) 1 Tube, Oral, As needed, low blood sugar , severe hypoglycemia, Starting Mon10/30/19 at 1542, For 10 days, Phase II/On Unit, If patient is conscious/alert (may be disoriented), give for blood glucose jas ue less than 45 mg/dL. Alternative to ju ice. Do not give if patient has received juice. Repeat as ordered until blood glucose above 70 mg/dL. dextrose (GLUTOSE) oral gel 40% (1 Tube = net wt. 37.5 gm containing 15 gm dextrose) 1 Tube, Oral, As needed, low blood sugar , mild hypoglycemia, Starting Mon10/30/19 at 1542, For 10 days, Phase II/On Unit, If patient is alert and symptomatic, give for blood glucose 60-70 mg/dL. Alterna tive to juice, do not give it patient blank s received juice. Repeat as ordered until blood glucose above 70 mg/dL. dextrose 50 % solution 25 mL(Linked Group 2) 25 mL, Intravenous, As needed, low blood sugar, severe hypoglycemia, Starting Mon10/30/19 at 1542, For 10 days, Phase II/On Unit, If patient NPO but conscious/alert (may be disoriented), give for blood glucose value less than 45 mg/dL. Repeat as ordered until blood glucose above 70 mg/dL. dextrose 50 % solution 25 mL(Linked Group 3) 25 mL, Intravenous, As needed, low blood sugar, severe hypoglycemia, Starting Mon10/30/19 at 1542, For 5 days, Phase II/On Unit, If patient UNCONSCIOUS or NOT ALERT, give for blood glucose value less th an 70 mg/dL. Repeat as ordered until blood glucose above 70 mg/d L. EPINEPHrine (ADRENALIN) injection (CANCELED) 1252 (Given - Provider: Regan Velásquez MD - Comment: 1 mL placed in 5 L of Normal Saline for irrigation) As needed, Starting Mon10/30/19 at 1252, Intraprocedure EPINEPHrine (EPIPEN) 0.3 MG/0.3ML injection syringe 0.3 mg 0.3 mg, Subcutaneous, As needed, anaphyl axis, Starting Mon10/30/19 at 1542, For 5 doses, Phase II/On Unit fentaNYL (SUBLIMAZE) injection 50 mcg (CANCELED) 1507 (Given - Provider: Emily Turner RN) 50 mcg, Intravenous, Every 5 min PRN, se lloyd pain, Starting Mon10/30/19 at 1333, For 5 doses, Recovery (only) Glucagon HCl (rDNA) injection 1 mg(Linked Group 3) 1 mg, Intramuscular, Every 15 min PRN, l ow blood sugar, severe hypoglycemia, Starting Mon10/30/19 at 1542, For 5 days, Phase II/On Unit, If no IV access, give for blood glucose value less than 45 mg/dL if patient unconscious or not alert. Cau tion: glucagon can cause nausea and vomiting. Roll patient on their side when administering to prevent aspiration. hydrOXYzine (VISTARIL) capsule 25 mg 25 mg, Oral, Every 6 hours PRN, itching, Starting 8/12/20 at 1542, Phase II/On Unit ipratropium-albuterol (DUO-NEB) 0.5-2.5 mg/3 mL nebulizer soluti on 3 mL 3 mL, Nebulization, Every 6 hours PRN, w heezing, shortness of breath, Starting Mon10/30/19 at 1728, Phase II/On Unit ketorolac (TORADOL) injection 15 mg 15 mg, Intravenous, Every 6 hours PRN, m oderate pain, Starting Mon10/30/19 at 1542, Phase II/On Unit, Separate from pre-op Celecoxib (Celebrex) by 6 hours morphine PF injection 10 mg 10 mg, Intravenous, Every 2 hour PRN, Fo r pain rating 6-10, Starting Mon10/30/19 at 1542, Phase II/On Unit, 3rd Line. If inadequate response within 60 minutes, proceed to next-line agent for same PRN re ason or contact provider if no further options ordered. morphine Sulfate (PF) solution 5 mg 5 mg, Intravenous, Every 2 hour PRN, For pain rating 1-5, Starting Mon10/30/19 at 1542, Phase II/On Unit, 3rd Line. If inadequate response within 60 minutes, proceed to next-line agent for same PRN reas on or contact provider if no further options ordered. naloxone (NARCAN) injection 0.4 mg 1520 (MAY Hold - Provider: Automatic Transfer Provider - Reason: Patient not available) 1642 (MAY Unhold - Provider: Automatic Discharge Provider) 0.4 mg, Intravenous, Once as needed, res piratory depression, if apneic, Starting Mon10/30/19 at 1333, For 3 doses, Recovery & On Unit, If RR is less than 8 ondansetron (ZOFRAN) injection 4 mg(Linked Group 4) 4 mg, Intravenous, Every 6 hours PRN, na usea, vomiting, Starting Mon10/30/19 at 1542, For 10 days, Phase II/On Unit, 1st Line. Give IV if patient is unable to take orally. If inadequate response within 60 minutes, proceed to next-line agent o r contact provider if no further options ordered. ondansetron ODT (ZOFRAN-ODT) dispersible tablet 4 mg(Linked Grou p 4) 4 mg, Oral, Every 6 hours PRN, nausea, v omiting, Starting 10/30/19 at 1542, For 10 days, Phase II/On Unit, 1st Line. If inadequate response within 60 minutes, proceed to next-line agent or contact pr ovider if no further options ordered. Pa amtt should allow tablet to dissolve on tongue. Do not remove from blister pack until just before administering. oxyCODONE (ROXICODONE) 5 MG/5ML solution 10 mg(Linked Group 5) 1720 (See Alternative - Provider: Rocio Herrera)2141 (See Alternative - Provider: ENRIQUE OwenN)2149 (See Alternative - Provider: Rocio Herrera) 0612 (See Alternative - Provider: IVELISSE Carey)0949 (See Alternative - Provider: Aissatou Fontana, RN)1416 (See Alternative - Provider: Aissatou Fontana, RN) 10 mg, Oral, Every 4 hours PRN, For pain rating 6-10, Starting 10/30/19 at 1542, For 10 days, Phase II/On Unit, Give oral liquid if patient prefers or per feeding tube if present. 2nd Line. If inadeq uate response within 60 minutes, proceed to next-line agent for same PRN reason or contact provider if no further options ordered. oxyCODONE (ROXICODONE) 5 MG/5ML solution 7.5 mg(Linked Group 6) 7.5 mg, Oral, Every 4 hours PRN, For vishal n rating 1-5, Starting 10/30/19 at 1542, For 10 days, Phase II/On Unit, Give oral liquid if patient prefers or per feeding tube if present. 2nd Line. If inadeq uate response within 60 minutes, proceed to next-line agent for same PRN reason or contact provider if no further options ordered. oxyCODONE (ROXICODONE) immediate release tablet 10 mg(Linked Kal up 6) 10 mg, Oral, Every 4 hours PRN, For pain rating 1-5, Starting 10/30/19 at 1542, For 10 days, Phase II/On Unit, 2nd Line. If inadequate response within 60 minutes, proceed to next-line agent for same PRN reason or contact provider if no further options ordered. oxyCODONE (ROXICODONE) immediate release tablet 15 mg(Linked Group 5) 1720 (Given - Provider: Rocio Herrera)2140 (Not Given - Provider: IVELISSE Owen - Reason: Other)2148 (Given - Provider: Rocio Herrera) 0612 (Given - Provider: IVELISSE Carey)0949 (Given - Provider: Aissatou Fontana, RN)1416 (Given - Provider: Aissatou Fontana, RN) 15 mg, Oral, Every 4 hours PRN, For pain rating 6-10, Starting Mon10/30/19 at 1542, For 10 days, Phase II/On Unit, 2nd Line. If inadequate response within 60 minutes, proceed to next-line agent for same PRN reason or contact provider if no further options ordered. Linked Groups Order Group 1: acetaminophen (TYLENOL) tablet 650 mgJump to med 650 mg, Oral, Every 6 hours scheduled, F irst dose on Mon10/30/19 at 1800, For 10 days, Phase II/On Unit Or acetaminophen (TYLENOL) suspension 640 mgJump to med 640 mg (rounded from 650 mg), Oral, Ever y 6 hours scheduled, First dose on Mon10/30/19 at 1800, For 10 days, Phase II/On Unit
Give oral liquid if patient prefers or per feeding tube if present.
Or acetaminophen (TYLENOL) suppository 650 mgJump to med 650 mg, Rectal, Every 6 hours scheduled, First dose on Mon10/30/19 at 1800, For 10 days, Phase II/On Unit
Give SC if unable to administer by mouth or feeding tube.
Group 2: dextrose (GLUTOSE) oral gel 40% (1 Tube = net wt. 37.5 gm containing 15 gm dextrose)Jump to med 1 Tube, Oral, As needed, low blood sugar , severe hypoglycemia, Starting Mon10/30/19 at 1542, For 10 days, Phase II/On Unit
If patient is conscious/alert (may be disoriented), give for blood glu cose value less than 45 mg/dL. Alternati ve to juice. Do not give if patient has received juice. Repeat as ordered until blood glucose above 70 mg/dL.
Or dextrose 50 % solution 25 mLJump to med 25 mL, Intravenous, As needed, low blood sugar, severe hypoglycemia, Starting Mon10/30/19 at 1542, For 10 days, Phase II/On Unit
If patient NPO but conscious/alert (may be disoriented), give fo r blood glucose value less than 45 mg/dL . Repeat as ordered until blood glucose above 70 mg/dL.
Group 3: dextrose 50 % solution 25 mLJump to med 25 mL, Intravenous, As needed, low blood sugar, severe hypoglycemia, Starting Mon10/30/19 at 1542, For 5 days, Phase II/On Unit
If patient UNCONSCIOUS or NOT ALERT, give for blood glucose value less than 70 mg/dL. Repeat as ordered until blood glucose above 70 mg/dL.
Or Glucagon HCl (rDNA) injection 1 mgJump to med 1 mg, Intramuscular, Every 15 min PRN, l ow blood sugar, severe hypoglycemia, Starting Mon10/30/19 at 1542, For 5 days, Phase II/On Unit
If no IV access, give for blood glucose value less than 4 5 mg/dL if patient unconscious or not al ert. Caution: glucagon can cause nausea and vomiting. Roll patient on their side when administering to prevent aspiration.
Group 4: ondansetron ODT (ZOFRAN-ODT) dispersible tablet 4 mgJump to med 4 mg, Oral, Every 6 hours PRN, nausea, v omiting, Starting Mon10/30/19 at 1542, For 10 days, Phase II/On Unit
1st Line. If inadequate response within 60 minutes, proceed to next-line agent or co ntact provider if no further options ord ered. Patient should allow tablet to dissolve on tongue. Do not remove from blister pack until just before administering.
Or ondansetron (ZOFRAN) injection 4 mgJump to med 4 mg, Intravenous, Every 6 hours PRN, na usea, vomiting, Starting Mon10/30/19 at 1542, For 10 days, Phase II/On Unit
1st Line. Give IV if patient is unable to take orally. If inadequate response within 60 minutes, proceed to next-line agent or contact provider if no further options ordered.
Group 5: oxyCODONE (ROXICODONE) immediate release tablet 15 mgJump to med 15 mg, Oral, Every 4 hours PRN, For pain rating 6-10, Starting Mon10/30/19 at 1542, For 10 days, Phase II/On Unit
2nd Line. If inadequate response within 60 minutes, proceed to next-line agent for same PRN reason or contact provider if no further options ordered.
Or oxyCODONE (ROXICODONE) 5 MG/5ML solution 10 mgJump to med 10 mg, Oral, Every 4 hours PRN, For pain rating 6-10, Starting Mon10/30/19 at 1542, For 10 days, Phase II/On Unit
Give oral liquid if patient prefers or per feeding tube if present. 2nd Line. I f inadequate response within 60 minutes, proceed to next-line agent for same PRN reason or contact provider if no further options ordered.
Group 6: oxyCODONE (ROXICODONE) immediate release tablet 10 mgJump to med 10 mg, Oral, Every 4 hours PRN, For pain rating 1-5, Starting Mon10/30/19 at 1542, For 10 days, Phase II/On Unit
2nd Line. If inadequate response within 60 minutes, proceed to next-line agent f or same PRN reason or contact provider i f no further options ordered.
Or oxyCODONE (ROXICODONE) 5 MG/5ML solution 7.5 mgJump to med 7.5 mg, Oral, Every 4 hours PRN, For vishal n rating 1-5, Starting Mon10/30/19 at 1542, For 10 days, Phase II/On Unit
Give oral liquid if patient prefers or per feeding tube if present. 2nd Line. I f inadequate response within 60 minutes, proceed to next-line agent for same PRN reason or contact provider if no further options ordered.
documented in this encounter Care Teams Customer Resource Specialist Relationship Specialty Start Date End Date Sebastian Griffiths MD PCP - General 10/24/[address] [place] [phone] documented as of this encounter
--- OUTSIDE RECORDS SUMMARY | 2021-12-09 21:29 | XMS_ITS | Encounter Summary ---
:1950 Author Organization [facility] Address [address] [place] [address] Care Team Providers Name Role Phone Sebastian Griffiths MD Primary Care Provider Encounter Details Date Type Department Care Team Description 10/27/2019 Lab SE Immunization Encounter for laboratory 210 [address] [facility] testing for COVID-[place] [address] Social History Tobacco Use Types Packs/Day Years [...] do you attend uatsdin or Never 2020 hoahaoism services? Do you [...] 01/18/2022 Telemedicine Family Medicine Sebastian Griffiths MD [address] [place] [address] [phone] (Wo rk) documented as of this encounter Procedures Procedure Name Priority Date/Time Associated Comments Diagnosis SARS CORONAVIRUS 2 Routine 10/27/2019 7:46 AM Encounter for Re suljoelle for this RNA DETECTION, V CDT laboratory testing proce les are in for COVID-19 virus the resul ts section. documented in this encounter Results SARS Coronavirus 2 RNA detection, v (10/27/2019 7:46 AM CDT) [facility] Method Time Signature SARS Covid Nasopharyngeal 10/27/2019 [facility] specimen 11:08 PM LABORATORIES source CDT SARS CoV2 Undetected Undetected 10/27/2019 [facility] RNA 11:08 PM LABORATORIES CDT Comment: [...] test using the apolinar SARS-CoV-2 ass ay ([employer] performed on the apolinar 68 00 System has received Emergency Use Authorization (EU A) by the U.S. Food and Drug Administration, and is modified from the electric well logging operator's instructions with a bridg ing study. Performance characteristics were verifie d by [facility] in a manner consistent with CLIA requiremen ts. Fact sheets for this Emergency Use Autho rization (EUA) assay can be found at the following link s: For Healthcare Providers: https://www.fda.gov/media/096496/downloa d For Patients: https://www.fda.gov/media/ 718968/download Test Performed by: [place] [id number] Film Reproducer: Sami Crenshaw M.D. Ph. D.; CLIA# [id number] Specimen Anatomical Collection Method Collection Time Receive d Time (Source) Location / / Volume Laterality Swab 10/27/2019 7:46 AM 0 1:13 (Nasopharyngeal) CDT PM CDT Rehana Lebron APRN, WHIRLEY OPERATOR LAB MOLECULAR DIAGNOSTICS O RDERABLES Performing Organization Address City/State/ZIP Code Phon e Number [facility] see result attachment for specific address documented in this encounter Visit Diagnoses Diagnosis Encounter for laboratory testing for COV ID-19 virus documented in this encounter Additional Health Concerns Infection Onset Date Last Indicated Resolved Time COVID-19 Rule Out 10/27/2019 10/27/2019 10/27/2019 11: 08 PM CDT documented as of this encounter Care Teams Police Officer Booking Relationship Specialty Start Date End Date Sebastian Griffiths MD PCP - General 10/24/[address] [place] [phone] documented as of this encounter
--- OUTSIDE RECORDS SUMMARY | 2021-12-09 21:29 | XMS_ITS | Encounter Summary ---
:1950 Author Organization [facility] Address [address] [place] [address] Care Team Providers Name Role Phone [place] Griffiths MD Primary Care Provider Reason for Referral Consultation (Routine) - Closed Specialty Diagnoses / Referred By Contact Referred To Contact Procedures Physical Therapy / Diagnoses S/P rotator cuff repair Regan Velásquez, Karina WEST [address] [place] [address] Referral ID Status Reason Start Date Expiration Date Visits V isits Requested Authorized [id number] Closed Specialty 10/08/2019 03/19/2020 99 99 Services Required Scheduling Instructions Please schedule for physical therapy to start: DOS: 10/30/2019 Procedure: RT rotator cuff repair, tia ion decompression, biceps tenotomy Surgeon: Didier Location: [place] Rotator cuff/distal clav excision/biceps tenodesis: 8-10 days after surgery Reason for Visit Reason Comments Shoulder Pain right Encounter Details Date Type Department Care Team Description 10/08/2019 Office Visit [facility] Regan Velásquez Nontraumatic incomplete tear of right rotator cuff (Primary Dx); Orthopedics MD Jorge Alberto Rotator cuff impingement syndrome of rig ht shoulder; [address] Arthritis of right acromiocl avicular joint; [place] [address] [address] Tendinopathy of right biceps tendon; [phone] [place], [place] Pre[place] examinat [place]; [id number] S/P rotator cuff repair Social History Tobacco Use Types Packs/Day Years [...] do you attend bahai or Never 2020 congregation services? Do you [...] Taken Comments Blood Pressure - - Pulse - - Temperature 36.3 ??C (97.3 ??F) 10/08/2019 1:18 PM CDT Respiratory Rate - - Oxygen Saturation - - Inhaled Oxygen Concentration - - Weight - - Height - - Body Mass Index - - documented in this encounter Patient Instructions Patient InstructionsTania Bender MA - 10/08/2019 1:15 PM CDT Please schedule patient for following post ops: DOS: 10/30/2019 Procedure: RT rotator cuff repair, revision decompression, biceps tenotomy 2 week with Tanmay 6 week with Tanmay documented in this encounter Progress Notes Regan Velásquez MD - 10/08/2019 1:15 PM CDT Established Patient Note Chief Complaint: Shoulder pain, right. History: 69 y.o. female presents for evaluation of right shoulder pain. The pain started with no known precipitating injury or known cause, 6+ months ago. Shoulder pain is worse with lifting/reaching/pushing/pulling, better with resting the elbow at the side, 5-10/10 intensity and causing night pain and sleep disruption. Denies numbness/tingling in the arm. She is suspicious that she has had surgery on her right shoulder in the past, although an extensive [facility] record search shows no definite operative report for the right shoulder. She had a diagnostic cortisone injection into her right proximal biceps tendon sheath that she thinks may have helped somewhat temporarily. She has been using narcotic pain medications to help with severe pain, although admits that she does not need them everyday. Her shoulder hurts enough where she cannot use her right arm for most activities. Her pain is showing no signs of getting better over time. Allergies: Bee venom; Losartan; Aspirin; Nsaids; Penicillins; Tramadol; and Varenicline Social History: Social History Occupational History ??? Occupation: Retired Tobacco Use ??? Smoking status: Current Every Day Smoker Packs/day: 0.25 Years: 40.00 Pack years: 10.00 Types: Cigarettes ??? Smokeless tobacco: Never Used Substance and Sexual Activity ??? Alcohol use: Not Currently Frequency: Never Binge frequency: Never ??? Drug use: Not Currently ??? Sexual activity: Defer Objective: General: Mental status is oriented to time, place, and person; alert and coherent. Affect is appropriate. Appearance of medium build. Right shoulder: No skin lesions overlying the shoulder. No obvious scapular muscle atrophy. Tender to palpation overthe subacromial space, AC joint and proximal biceps tendon area. No biceps contour asymmetry. Shoulder ROM: active FE 5 degrees . She also will not allow me to internally or externally rotate her arm. The shoulder is ligamentously stable. I am unable to test rotator cuff strength. Ditch Inspector strength 4-/5. 2+ brachioradialis deep tendon reflexes symmetric bilaterally. Distally the arm has a globally normalsensory exam to light touch. No significant vascular edema. 2+ radial pulse. No palpable supraclavicular lymphadenopathy. Diagnostic Studies: The pertinent right shoulder x-ray images and report, dated 03/27/2018, were independently visualized and reviewed with the patient. No acute fracture dislocation. Minimal degenerative changes of the right acromioclavicular and glenohumeral joints. No abnormal periarticular soft tissue calcifications. MRI right shoulder noncontrast dated 09/10/2019, study reviewed with patient: IMPRESSION: 1. Severe tendinosis of the supraspinatus tendon with articular surface tendon tearing. At least a portion of the supraspinatus tear is likely high-grade. No full-thickness rotator cuff tear. No rotator cuff muscle atrophy. 2. Mild tendinosis of the infraspinatus and subscapularis tendons. 3. Mild osteoarthritis of the glenohumeral joint. 1.5 cm long probable joint body, less likely focus of synovitis in the biceps tendon sheath. 4. Labral tearing. 5. Distal clavicle resection and acromioplasty. Assessment: Encounter Diagnosis Name Primary? Tendinopathy of right biceps tendon Yes * Loose body, right proximal biceps tendon sheath * Right shoulder impingement syndrome, recurrent * Right shoulder partial-thickness rotator cuff tearing * Right acromioclavicular joint arthrosis Plan: I had a long discussion with the patient today centered around her severe shoulder pain and its associated disability. Normal shoulder anatomy was discussed at length using anatomic diagrams to aid understanding of their diagnostic imaging, my diagnostic opinions, and the spectrum of non-surgical and surgical treatment alternatives. After our discussion, I felt the patient's understanding adequate togive an informed consent. The patient would like to proceed with an arthroscopic right shoulder revision subacromial decompression/acromioplasty, distal clavicle excision, rotator cuff repair (as indicated based on intraoperative findings) and biceps tenotomy, with a possible open proximal biceps tendon sheath debridement. We discussed the risks of surgery including infection, anesthesia reactions, persisting pain, stiffness, loss of function, neurovascular injury, re-tear, need for revision surgery, injury to normal structures, and medical problems including blood clots/pulmonary emboli. The planned or potential indication for a biceps tenodeisis versus tenotomy was discussed, and risks of both were discussed. The patient understands this is not an all-inclusive list of potential complications, but is a good sarina effort to educate the patient to obtain an informed consent. An estimated timeline for reasonable and expected post- operative recovery was discussed, with no guarantees provided or implied. A preoperative history and physical and routine clearance tests as indicated will be ordered.Patient was provided information handouts and sent to scheduling. I specifically recommended that she reduce her narcotic intake as much as possible before surgery, and we discussed the likely significant difficulty we will have been controlling her postoperative pain. documented in this encounter Plan of Treatment Upcoming Encounters Date Type Specialty Care Team Description 01/18/2022 Telemedicine Family Medicine [place]s MD [address] [place], [place] [address] (Wo rk) Scheduled Referrals Name Type Priority Associated Order Schedule Diagnoses Ambulatory referral Outpatient Referral Routine S/P rotator cu ff Ordered: to Physical Therapy repair 10/08/19 documented as of this encounter Results (ABNORMAL) Liver panel (10/21/2019 1:24 PM CDT) Analysis Performed At [facility] Time Signature Total Protein 7.9 6.3 - 8.2 10/21/2019 [place] g/dL 4:40 PM [facility] Albumin, Serum 4.4 3.5 - 5.0 10/21/2019 [place] g/dL 4:40 PM [facility] Total Bilirubin 1.0 0.1 - 1.0 10/21/2019 [place] mg/dL 4:40 PM [facility] Bilirubin, <0.1 0.0 - 0.3 10/21/2019 [place] Direct mg/dL 4:40 PM [facility] AST 53 (H) 8 - 43 U/L 10/21/2019 [place] 4:40 PM [facility] Alkaline 84 38 - 128 10/21/2019 [place] Phosphatase U/L 4:40 PM [facility] ALT (SGPT) 45 (H) 0 - 34 U/L 10/21/2019 [place] 4:40 PM [facility] Specimen Anatomical Collection Method Collection Time Receive d Time (Source) Location / / Volume Laterality Blood (Blood, 10/21/2019 1:24 PM 10/21/19 4:19 Venous) CDT PM CDT Regan Velásquez MD LAB BLOOD ORDERABLES Performing Organization Address City/State/ZIP Code Phon e Number [facility] [address] [place] [address] (ABNORMAL) Hemoglobin A1c (10/21/2019 1:24 PM CDT) Analysis Performed At [facility] Time Signature Hemoglobin A1C 6.3 (H) 4.0 - 5.6 10/21/2019 [place] % A1C 4:48 PM CDT [facility] Comment: Reference Range 4.0-5.6% is [...] (Source) Location / / Volume Laterality Blood (Blood, 10/21/2019 1:24 PM 10/21/19 20 4:18 Venous) CDT PM CDT Regan Velásquez MD LAB BLOOD ORDERABLES Performing Organization Address City/State/ZIP Code Phon e Number [facility] [address] [place] [address] documented in this encounter Visit Diagnoses Diagnosis Nontraumatic incomplete tear of right ro tator cuff - Primary Rotator cuff impingement syndrome of rig ht shoulder Arthritis of right acromioclavicular terri nt Tendinopathy of right biceps tendon Preop examination Unspecified pre-operative examination S/P rotator cuff repair documented in this encounter Care Teams Supervisor Cutting And Boning Relationship Specialty Start Date End Date [place] Griffiths MD PCP - General 10/24/[address] [place] [phone] documented as of this encounter
--- OUTSIDE RECORDS SUMMARY | 2021-12-09 21:29 | XMS_ITS | Encounter Summary ---
:1950 Author Organization [facility] Address [address] [place] [address] Care Team Providers Name Role Phone [place] Griffiths MD Primary Care Provider Reason for Visit Reason Onset Date Comments Med Refill 11/01/2019 Encounter Details Date Type Department Care Team Description 11/01/2019 Telephone [facility] Med [place]s MD Med Refill [address] [facility] [address] [place] [address] [place] [address] [phone] (Wo rk) Social History Tobacco Use Types [...] do you attend adventist or Never 2020 alevism services? Do you [...] this encounter Miscellaneous Notes Telephone Encounter - Magdalena Meadows LPN - 11/01/2019 2:54 PM CDT Network Security Officer received call from Patient again to check on status of her medication for Oxycodone, I'm in a lot of pain, I need my meds today or something for this pain. Please update Patient. Telephone Encounter - Mili Rivera MA - 11/01/2019 1:54 PM CDT Script done for oxycodone 5 mg, 90 tablet, 0 refill, done on 10/31/19. By López Kelly APRN. Called pharmacy, they are waiting to hear back from patient's insurance for prior auth approval. See other message from today 11/01/19 Telephone Encounter - Cole Vaughan - 11/01/2019 12:11 PM CDT Patient called in and said that Dr. Velásquez's nurse could not get in touch with him so she is callingto see if Dr. Griffiths will prescribe her Oxycodone, 3 pills 4 times a day. Patient would like that sent to the [employer] Please advise. documented in this encounter Plan of Treatment Upcoming Encounters Date Type Specialty Care Team Description 01/18/2022 Telemedicine Family Medicine [place] Griffiths MD [address] [place] [phone] (Wo rk) documented as of this encounter Visit Diagnoses Not on filedocumented in this encounter Care Teams Behavioral Geneticist Relationship Specialty Start Date End Date [place] Griffiths MD PCP - General 10/24/[address] [place] [phone] documented as of this encounter
--- OUTSIDE RECORDS SUMMARY | 2021-12-09 21:29 | XMS_ITS | Encounter Summary ---
:1950 Author Organization [facility] Address [address] [place] [address] Care Team Providers Name Role Phone [place] Griffiths MD Primary Care Provider Reason for Visit Reason Onset Date Comments Med Refill 11/01/2019 Encounter Details Date Type Department Care Team Description 11/01/2019 Telephone [facility] Regan Barahona MD Med Refill [address] [place] [address] [address] [place] [address] [place] [address] (Wo rk) Social History Tobacco Use Types [...] do you attend gnosticism or Never 2020 voodoo services? Do you [...] this encounter Miscellaneous Notes Telephone Encounter - Jorge Alberto Winston MA - 11/01/2019 4:01 PM CDT Received a phone call from patients pharmacy stating that they did receive a new script from Dr Griffiths and they will be putting a refill through shortly for her and they will be calling her to let her know this. No further follow up needed at this time. documented in this encounter Plan of Treatment Upcoming Encounters Date Type Specialty Care Team Description 01/18/2022 Telemedicine Family Medicine [place]s MD [address] [place], [place] [phone] (Wo rk) documented as of this encounter Visit Diagnoses Not on filedocumented in this encounter Care Teams Vice President Payment Relationship Specialty Start Date End Date [place] Griffiths MD PCP - General 10/24/[address] [place] [phone] documented as of this encounter
--- OUTSIDE RECORDS SUMMARY | 2021-12-09 21:29 | XMS_ITS | Encounter Summary ---
:[address] [facility] Address [address] [place] [address] Care Team Providers Name Role Phone [place] Griffiths MD Primary Care Provider Reason for Visit Reason Onset Date Comments other 11/06/2019 Encounter Details Date Type Department Care Team Description 11/06/2019 Telephone [facility] Regan Barahona MD other [address] [place] [address] [address] [place] [address] [place] [phone] (Wo rk) Social History Tobacco Use Types [...] do you attend christian or Never 2020 roman catholic services? Do [...] Encounter - [place] Griffiths MD - 11/08/2019 3:30 PM CDT Discussed with patient. She was using 2 tablets every 4-6 hours initially after surgery but now is down to 4 a day. We will continue with the 4 tablets of 5 mg oxycodone's for the next 2 weeks and planon tapering further at that time. 56 tablets faxed into her [facility] pharmacy. Telephone Encounter - [place] Griffiths MD - 11/07/2019 10:59 PM CDT According to CERTIFIED MEDICAL AIDE, she did not fill your rx. I will call her tomorrow. You will not need to fill any further pain meds. Thanks for the update. Telephone Encounter - Regan Kelly APRN, ROB - 11/07/2019 6:49 AM CDT Per the patient prior to surgery she states that she was taking 2 tablets every 6 hours. This is even with Dr. Griffiths's prescription stating 1 tablet every 6 hours. I did write a prescription for postoperative pain to be 2 to 3 tablets every 6 hours however looking back in the record it shows that there were issues with her refilling this. I think she was able to get in contact with Dr. Griffiths's office who provided a prescription as she has been on oxycodone chronically. I would be happy to refill this. Dr. Griffiths-just looking for your opinion on how best to work with Ms. Fan? Telephone Encounter - Anshul Velasquez RN - 11/06/2019 11:57 AM CDT Patient was called, she stated she is taking tylenol every six hours and 2 oxycodone every 6 hour. Per the prescription from Dr Griffiths it states only 1 tablet of oxycodone every 6 hours which she should have enough medications until 11/11/2019. Patient stated that per her bottle it says two tablets every 6 hours and she will be running out soon. She also stated who in their right mind can only take one pill every 6 hours for this surgery Patient was asked what else is doing for the pain, she stated nothing. It was recommended that she continue to ice her shoulder 20 minutes on and 20 minutes off. She is unable to take any NSAIDS. Telephone Encounter - Anshul Velasquez RN - 11/06/2019 11:46 AM CDT Tanmay please advise, per prescription from Dr Griffiths patient should have enough medication until 11/11/2019 Telephone Encounter - Albert Frias - 11/06/2019 10:29 AM CDT Patient is calling in regards to getting a prescription for oxycodone she had surgery on 10/30/2019 she states that she never received any prescriptions for after surgery so had to write onefor her but only gave her a small amount. She was looking to get more refilled. Please advise[facility] documented in this encounter Plan of Treatment Upcoming Encounters Date Type Specialty Care Team Description 01/18/2022 Telemedicine Family Medicine [place]s MD [address] [place] [phone] (Wo rk) documented as of this encounter Visit Diagnoses Diagnosis Chronic pain syndrome documented in this encounter Care Teams Electrical Controls Technician Relationship Specialty Start Date End Date [place] Griffiths MD PCP - General 10/24/[address] [place] [phone] documented as of this encounter
--- OUTSIDE RECORDS SUMMARY | 2021-12-09 21:29 | XMS_ITS | Encounter Summary ---
:1950 Author Organization [facility] Address [address] [place] [address] Care Team Providers Name Role Phone Sebastian Griffiths MD Primary Care Provider Reason for Visit Reason Comments Pre-op Exam Encounter Details Date Type Department Care Team Description 10/21/2019 Consult [facility] Sebastian Griffiths MD Pre-op evaluation (Primary Dx); [address] Controlled type 2 diabetes mellitus with out complication, without long-term current use of insulin (HCC); [place] [address] [place] [address] Chronic hepatitis C without hepatic coma (HCC); [phone] (Wo rk) Chronic obstructive pulmonary disease, u nspecified COPD type (HCC); Gastro-es ophageal reflux disease without esophagitis; Generalized anx iety disorder; Antisocial pers onality disorder (HCC); Body mass index (BMI) 40.0-44.9, adult (HCC); Borderline pers onality disorder (HCC); Chronic pain sy ndrome; Hypertension, e ssential, benign; Degenerative di sc disease, lumbar Social History Tobacco Use Types Packs/Day Years [...] do you attend zoroastrian or Never 2020 jew services? Do you [...] Sign Reading Time Taken Comments Blood Pressure 136/86 10/21/2019 1:44 PM CDT Pulse 108 10/21/2019 1:44 PM CDT Temperature 36.6 ??C (97.8 ??F) 10/21/2019 1:44 PM CDT Respiratory Rate 18 10/21/2019 1:44 PM CDT Oxygen Saturation 96% 10/21/2019 1:44 PM CDT Inhaled Oxygen Concentration - - Weight 104 kg (230 lb) 10/21/2019 1:44 PM CDT Height 165.1 cm (5' 5) 10/21/2019 1:44 PM CDT Body Mass Index 38.27 10/21/2019 1:44 PM CDT documented in this encounter Patient Instructions Patient InstructionsSebastian Griffiths MD - 10/21/2019 2:00 PM CDT Stop aspirin and vitamins now. On the morning of surgery: Do NOT take: Hydrochlorothiazide. Januvia Zyrtec Gabapentin Oxycodone Ativan (lorazepam) Lisinopril/HCTZ Take all other meds as you usually do. Follow the Diabetc/Surgery instuction book Decrease your evening dose of insulin by 1/2. documented in this encounter Progress Notes Sebastian Griffiths MD - 10/21/2019 2:00 PM CDT Subjective Patient ID: Rena Fan is a 69 y.o. female. No chief complaint on file. HPI The following portions of the patient's chart were reviewed in this encounter and updated as appropriate: Review of Systems Objective Physical Exam Assessment/Plan There are no diagnoses linked to this encounter. documented in this encounter H&P Notes Sebastian Griffiths MD - 10/21/2019 2:00 PM CDT Estab - Pre-Op History and Physical Assessment/Plan Rena Fan is an 69 y.o. female. Here for a preoperative evaluation for arthroscopic right shoulder revision subacromial decompression/acromioplasty, distal clavicle excision, rotator cuff repair (as indicated based on intraoperative findings) and biceps tenotomy, with a possible open proximal biceps tendon sheath debridement. This surgery is scheduled to be performed by surgeon Dr. Bangura on 10/30/2019. The preoperative risk assessment has determined the following: No contraindications to planned surgery Rena was seen today for pre-op exam. Diagnoses and all orders for this visit: Pre-op evaluation (Primary) - X-ray Chest 2 Views; Future - X-ray Chest 2 Views Controlled type 2 diabetes mellitus without complication, without long-term current use of insulin (HCC) Chronic hepatitis C without hepatic coma (HCC) Chronic obstructive pulmonary disease, unspecified COPD type (HCC) Gastro-esophageal reflux disease without esophagitis Generalized anxiety disorder Antisocial personality disorder (HCC) Body mass index (BMI) 40.0-44.9, adult (HCC) Borderline personality disorder (HCC) Chronic pain syndrome Hypertension, essential, benign Degenerative disc disease, lumbar Other orders - Cancel: Sofosbuvir-Velpatasvir (Epclusa) 400-100 MG tablet; Take by mouth 1 (one) time each day Patient currently treated for hepatitis C with Epclusa from her [facility] provider. HPI: Current Outpatient Medications: ??? ACCU-CHEK SMARTVIEW test strip, USE DIRECTED TESTING TWICE DAILY, Disp: 200 each, Rfl: 3 ??? ACETAMINOPHEN EXTRA STRENGTH 500 MG tablet, TAKE TWO TABLETS BY MOUTH THREE TIMES A DAY NEEDED FOR PAIN, Disp: 100 tablet, Rfl: 11 ??? amLODIPine (NORVASC) 5 MG tablet, TAKE 1 TABLET BY MOUTH DAILY, Disp: 90 tablet, Rfl: 3 ??? Cetirizine HCl 10 MG capsule, Take 10 mg by mouth 1 (one) time each day if needed , Disp: , Rfl: ??? diclofenac (VOLTAREN) 1 % topical gel, Apply topically 2 (two) times a day To affected shoulder pain, Disp: 100 g, Rfl: 1 ??? docusate sodium (COLACE) 100 MG capsule, Take 100 mg by mouth 2 (two) times a day if needed , Disp: , Rfl: ??? dorzolamide-timolol (COSOPT) 22.3-6.8 MG/ML ophthalmic solution, Administer 1 drop into both eyes 2 (two) times a day, Disp: 10 mL, Rfl: 11 ??? DULoxetine (CYMBALTA) [address] capsule, TAKE TWO CAPSULES BY MOUTH EVERY DAY, Disp: 60 capsule, Rfl: 5 ??? enoxaparin (LOVENOX) 40 MG/0.4ML solution, INJECT 40MG/0.4ML SUBCUTANEOUSLY ONCE DAILY FOR 20 DAYS, Disp: , Rfl: ??? EPINEPHrine (EPIPEN) 0.3 MG/0.3ML injection syringe, INJECT NEEDED FOR A BEE STING, Disp: 1 Syringe, Rfl: 1 ??? fluticasone (FLONASE) 50 MCG/ACT nasal spray, USE (1) SPRAY TWICE DAILY IN EACH NOSTRIL, Disp: 16 g, Rfl: 6 ??? gabapentin (NEURONTIN) 300 MG capsule, TAKE ONE CAPSULE BY MOUTH THREE TIMES A DAY, Disp: 90 capsule, Rfl: 5 ??? gabapentin (NEURONTIN) 600 MG tablet, TAKE ONE TABLET BY MOUTH THREE TIMES A DAY --TAKE ALONG WITH 300MG CAPSULES, Disp: 270 tablet, Rfl: 3 ??? hydroCHLOROthiazide (HYDRODIURIL) 25 MG tablet, Take 25 mg by mouth daily, Disp: , Rfl: ??? hydrOXYzine (ATARAX) 25 MG tablet, Take 1 tablet (25 mg total) by mouth every 8 (eight) hours ifneeded for itching, Disp: 90 tablet, Rfl: 3 ??? hydrOXYzine (ATARAX) 25 MG tablet, TAKE ONE TABLET EVERY 8 HOURS IF NEEDED FOR ITCHING, Disp: 90tablet, Rfl: 11 ??? insulin glargine (LANTUS) 100 UNIT/ML injection, Inject 20 units SQ once in the evening, Disp: 15 mL, Rfl: 5 ??? Insulin Pen Needle 31G X 8 MM misc, 1 Pen needle 1 (one) time each day, Disp: 100 each, Rfl: 1 ??? ipratropium-albuterol (DUO-NEB) 0.5-2.5 mg/3 mL nebulizer solution, USE ONE (1) VIAL VIA NEBULIZER UP TO EVERY 4 HOURS NEEDED WHEEZING., Disp: 180 mL, Rfl: 3 ??? JANUVIA 100 MG tablet, TAKE ONE TABLET BY MOUTH EVERY MORNING, Disp: 90 tablet, Rfl: 3 ??? ketorolac (ACULAR) 0.5 % ophthalmic solution, Administer 1 drop into affected eye(s) 4 times daily, Disp: , Rfl: ??? latanoprost (XALATAN) 0.005 % ophthalmic solution, Administer 1 drop into affected eye(s), Disp:, Rfl: ??? lidocaine (XYLOCAINE) 5 % ointment, Apply topically Apply small bead and rub in skin 2-4 times aday over painful back area. Wash off hands., Disp: , Rfl: ??? LORazepam (ATIVAN) 1 MG tablet, TAKE ONE TABLET BY MOUTH THREE TIMES A DAY, Disp: 90 tablet, Rfl: 1 ??? methocarbamol (ROBAXIN) 500 MG tablet, TAKE 1 TABLET BY MOUTH TWICE DAILY NEEDED FOR MUSCLE SPASMS, Disp: 120 tablet, Rfl: 3 ??? Misc. Devices (RECONSTITUBE) misc, glucometer strips See Instructions, testing strips-please fill brand covered by insurance., 100 each, 5 Refill(s), Disp: , Rfl: ??? Misc. Devices (RECONSTITUBE) misc, flex pen needles See Instructions, flex pen needles, 100 each, 5 Refill(s), Disp: , Rfl: ??? Misc. Devices (RECONSTITUBE) misc, lancet See Instructions, lancets, 100 each, 5 Refill(s), Disp: , Rfl: ??? Misc. Devices (RECONSTITUBE) misc, glucometer See Instructions, glucose monitor, 1 each, 0 Refill(s), Disp: , Rfl: ??? moxifloxacin (VIGAMOX) 0.5 % ophthalmic solution, Administer 1 drop into affected eye(s) 4 (four) times a day Right eye, Disp: , Rfl: ??? Multiple Vitamin (TAB-A-CORY) tablet, TAKE 1 TABLET BY MOUTH EVERY MORNING, Disp: 100 each, Rfl:3 ??? oxyCODONE (ROXICODONE) 5 MG immediate release tablet, TAKE 1 TABLET BY MOUTH EVERY 8 HOURS NEEDED FOR SEVERE PAIN FOR 14 DAYS, Disp: 42 tablet, Rfl: 0 ??? Oxymetazoline HCl (NASAL SPRAY NA), , Disp: , Rfl: ??? pantoprazole (PROTONIX) 40 MG EC tablet, TAKE 1 TABLET BY MOUTH DAILY, Disp: 90 tablet, Rfl: 3 ??? prednisoLONE acetate (PRED FORTE) 1 % ophthalmic suspension, Administer 1 drop into affected eye(s) 4 times daily, Disp: , Rfl: ??? risperiDONE (RisperDAL) 2 MG tablet, TAKE ONE TABLET BY MOUTH TWICE A DAY, Disp: 60 tablet, Rfl:5 ??? senna (SENOKOT) 8.6 MG tablet, Take 2 tablets by mouth every night, Disp: , Rfl: ??? SEREVENT DISKUS 50 MCG/DOSE diskus inhaler, Inhale 1 puff 2 (two) times a day, Disp: , Rfl: ??? sodium chloride (OCEAN) 0.65 % nasal spray, Administer 2 sprays into each nostril 3 (three) times a day if needed for congestion, Disp: , Rfl: ??? STOOL SOFTENER/LAXATIVE 50-8.6 MG per tablet, TAKE 2 TABLETS BY MOUTH AT BEDTIME, Disp: 180 tablet, Rfl: 3 ??? timolol (TIMOPTIC) 0.5 % ophthalmic solution, Administer 1 drop into affected eye(s) 2 times daily, Disp: , Rfl: ??? VENTOLIN HFA 108 (90 Base) MCG/ACT inhaler, INHALE 1 PUFF BY MOUTH NEEDED, Disp: 18 g, Rfl: 5 ??? zolpidem (AMBIEN) 5 MG tablet, Take 5 mg by mouth at night if needed , Disp: , Rfl: ??? ASPIRIN LOW DOSE 81 MG chewable tablet, CHEW ONE TABLET BY MOUTH DAILY (Patient not taking: Reported on 06/04/2019), Disp: 100 tablet, Rfl: 4 ??? cefdinir (OMNICEF) 300 MG capsule, TAKE 1 CAPSULE BY MOUTH EVERY 12 HOURS FOR 10 DAYS, Disp: , Rfl: ??? lisinopril-hydroCHLOROthiazide (PRINZIDE,ZESTORETIC) 10-12.5 MG per tablet, Take 1 tablet by mouth 1 (one) time each day (Patient not taking: Reported on 03/12/2019), Disp: 30 tablet, Rfl: 11 ??? LORazepam (ATIVAN) 0.5 MG tablet, Take 1 tablet (0.5 mg total) by mouth 2 (two) times a day if needed for anxiety for up to 10 days, Disp: 20 tablet, Rfl: 0 ??? nicotine (NICODERM CQ) 14 MG/24HR, Place 1 patch on the skin 1 (one) time each day at the same time (Patient not taking: Reported on 06/04/2019), Disp: 30 patch, Rfl: 1 ??? nicotine (NICODERM CQ) 21 MG/24HR, Place 1 patch on the skin 1 (one) time each day at the same time, Disp: , Rfl: ??? nicotine (NICODERM CQ) 7 MG/24HR, Place 1 patch on the skin 1 (one) time each day at the same time (Patient not taking: Reported on 10/10/2018), Disp: 30 patch, Rfl: 2 ??? Sofosbuvir-Velpatasvir (Epclusa) 400-100 MG tablet, Take by mouth 1 (one) time each day , Disp: , Rfl: Allergies: Bee venom; Losartan; Tramadol; Varenicline; Aspirin; Nsaids; and Penicillins Past Surgical History: Procedure Laterality Date ??? APPENDECTOMY ??? BREAST BIOPSY Left ??? CHOLECYSTECTOMY ??? COLONOSCOPY 2014 ??? ESOPHAGOGASTRODUODENOSCOPY 2014 ??? KNEE ARTHROPLASTY Right 2006 ??? KNEE ARTHROPLASTY Right 09/05/2017 ??? ORIF WRIST FRACTURE 2008 ??? ROTATOR CUFF REPAIR W/ DISTAL CLAVICLE EXCISION 2006 ??? SEPTOPLASTY 1999 ??? TOTAL ABDOMINAL HYSTERECTOMY W/ BILATERAL SALPINGOOPHORECTOMY Past Medical History: Diagnosis Date ??? Acid reflux ??? Borderline personality disorder (HCC) ??? Chronic pain syndrome Chronic pain syndrome related to degenerative arthritis and other nonspecific factors; probable left trochanteric bursitis; multiple orthopedic procedures; history of mass on spine 02/04/2015 acute minimally displaced fractures right 5th-7th ribs laterall. Chronic left sided rib fractures, right shoulder injury, left knee inury, cervical ??? Cocaine substance abuse (HCC) ??? COPD (chronic obstructive pulmonary disease) (HCC) ??? Coronary artery disease ??? Generalized anxiety disorder ??? Glaucoma poag uncontrolled per note ??? Hepatitis C ??? History of pancreatitis ??? Hyperlipidemia, unspecified ??? Hypertension, essential, benign ??? Insomnia 03/03/2016 ??? Irritable bowel syndrome ??? Major depressive disorder, recurrent episode, moderate (HCC) ??? Migraine ??? Type 2 diabetes mellitus, controlled (HCC) Family History Problem Relation Age of Onset ??? Glaucoma Mother ??? Stomach cancer Father 39 ??? Colon cancer Maternal Grandfather ??? Glaucoma Brother ??? Blindness Brother ??? Glaucoma Maternal Grandmother Social History Socioeconomic History ??? Marital status: Spouse name: Johnnie ??? Number of children: 2 ??? Years of education: None ??? Highest education level: None Occupational History ??? Occupation: Retired Social Needs ??? Financial resource strain: Not hard at all ??? Food insecurity: Worry: Never true Inability: Never true ??? Transportation needs: Medical: No Non-medical: No Tobacco Use ??? Smoking status: Current Every Day Smoker Packs/day: 0.25 Years: 40.00 Pack years: 10.00 Types: Cigarettes ??? Smokeless tobacco: Never Used Substance and Sexual Activity ??? Alcohol use: Not Currently Frequency: Never Binge frequency: Never ??? Drug use: Not Currently ??? Sexual activity: Defer Lifestyle ??? Physical activity: Days per week: Patient refused Minutes per session: Patient refused ??? Stress: Only a little Relationships ??? Social connections: Talks on phone: None Gets together: None Attends jew service: None Active member of club or organization: None Attends meetings of clubs or organizations: None Relationship status: None ??? Intimate partner violence: Fear of current or ex partner: None Emotionally abused: None Physically abused: None Forced sexual activity: None Other Topics Concern ??? None Social History Narrative Lives in [facility], lives in house in [place]. Review of Systems Denies any chest pain, shortness of breath or palpitations. Was recently seen in [place] ER when she bumped her knee that was repaired due to a fracture a year and a half ago. X-rays were normal andno therapies were indicated. She states her blood sugars been running very well. Denies any shortness of breath or changes in bowel movements or bladder habits. No open skin sores. Due to her chronic back issues and chronic arthritic issues of her knees, patient would benefit fromthe use of a scooter at home and away from home. Objective Cardiovascular Risk Able to walk briskly > two blocks on level ground w/o stop: No Climb one flight of stairs or up hill w/o stop?: No High Risk Surgery (orthopedic, intraperitoneal, major vascular, intrathoracic)?: No Ischemic Heart Disease: No Cerebral Vascular Disease: No Chronic Kidney Disease >/= Stage 3 (defined by GFR < 60): No Diabetes Mellitus: Yes Most recent Glucose over 100: Yes Congestive Heart Failure: No Coronary Artery Disease: Yes History of Arrythmias: Yes Valvular Disease: No Pulmonary Risk History of Asthma: Yes SpO2: 96 % History of COPD: No History of Obstructive Sleep Apnea: No STOP-Bang Questionnaire Do you snore loudly?: No Do you often feel tired or fatigued after your sleep?: No Has anyone ever observed you stop breathing in your sleep?: No Do you have or are you being treated for high blood pressure?: Yes Recent BMI (Calculated): 38.3 Is BMI greater than 35 kg/m2?: 1=Yes Age older than 50 years old?: 1=Yes Gender - Male: 0=No Appliances or Implants Pacemaker: No Other Risks Chronic Liver Disease: Yes Muscular Dystrophy: No Mytonic Dystrophy: No Myasthenia Gravis: No Malignant Hyperthermia: No : No Rheumatoid Arthritis: No Tracheostomy: No Seizure Disorder: No Visit Vitals BP 136/86 (BP Location: Left arm, Patient Position: Sitting) Pulse 108 Temp 36.6 ??C (97.8 ??F) (Temporal) Resp 18 Ht 1.651 m (5' 5) Wt 104 kg (230 lb) SpO2 96% BMI 38.27 kg/m?? OB Status Hysterectomy Smoking Status Current Every Day Smoker BSA 2.18 m?? Physical Exam GENERAL: In no apparent distress. Walks with the help of her walker. Is able to transfer to the examtable and get up and down on her own. HEAD: Normocephalic. EYES: Pupils are equal. Extraocular motions intact. No icterus. EARS: Tympanic membrances and canals are clear. MOUTH: Oropharynx is normal. Teeth: She has upper and lower dentures. NECK: No adenopathy, thyromegaly, or bruits. CHEST: Chest with clear breath sounds bilaterally. No wheezes, rales, or rhonchi. CARDIAC: Regular rate and rhythm. S1 and S2, without murmurs, gallops, or rubs. VASCULAR: No Edema. Peripheral pulses normal and equal in all extremities. ABDOMEN: Soft, without organomegaly, masses, tenderness, guarding or bruits. NEUROLOGIC EXAM: Alert and oriented x 3. No focal sensory or strength deficits. Speech normal. Patient's gait is very measured due to her back pain and knee pain. PSYCHIATRIC: Mood normal. SKIN: No rash, lesions, or open skin sores. Radiology Tests to be Ordered: Chest x-ray from today: Shows normal heart size and some mild patchy densities improving in the bases of lungs. No active cardiopulmonary disease noted. EKG done at [facility] on 08/08/2019 showed normal sinus rhythm and no ischemic changes or arrhythmias. No significant change found when compared to the April 09, 2019 EKG done at [facility] also. Additional Tests to be Ordered: Lab on 10/21/2019 Component Date Value ??? Total Protein 10/21/2019 7.9 ??? Albumin, Serum 10/21/2019 4.4 ??? Total Bilirubin 10/21/2019 1.0 ? ? Bilirubin, Direct 10/21/2019 <0.1 ??? AST 10/21/2019 53* ??? Alkaline Phosphatase 10/21/2019 84 ??? ALT (SGPT) 10/21/2019 45* ??? Hemoglobin A1C 10/21/2019 6.3* ??? Cholesterol 10/21/2019 198 ??? Triglycerides 10/21/2019 233* ??? HDL 10/21/2019 63 ??? LDL Calculated 10/21/2019 88 ??? Fasting? 10/21/2019 Yes ??? Sodium 10/21/2019 136 ??? Potassium 10/21/2019 3.6 ??? Chloride 10/21/2019 100 ??? CO2 10/21/2019 28 ??? Creatinine 10/21/2019 0.7 ??? BUN 10/21/2019 15 ??? Glucose 10/21/2019 130* ??? Calcium, Total,S 10/21/2019 9.9 ??? Microalbumin,mg/day 10/21/2019 54.0* ??? Creatinine, Urine 10/21/2019 297 ??? Microalb/Creat Ratio 10/21/2019 18 ? ? GFR 10/21/2019 >60 ? ? GFR 10/21/2019 >60 Immunizations: Tetanus: 07/19/2016 Influenza: N/A Comments: You should not drive for at least 24 hours after your surgery, or as instructed by your surgeon. Do NOT take ibuprofen, Aleve and aspirin 7 days prior to surgery. Do NOT take all supplements 7 days prior to surgery. Take all other medications as prescribed with a small sip of water unless instructed otherwise. Instructed patient to quit tobacco use. Medication Instructions: amLODIPine (NORVASC) 5 MG tablet [[id number]] KEEP taking medication through morning of surgery with a small sip of water. DULoxetine (CYMBALTA) [address] capsule [[id number]] KEEP taking medication through morning of surgery with a small sip of water. pantoprazole (PROTONIX) 40 MG EC tablet [[id number]] KEEP taking medication through morning of surgery with a small sip of water. SEREVENT DISKUS 50 MCG/DOSE diskus inhaler [[id number]] KEEP taking medication through morning of surgery with a small sip of water. Patient Instructions Stop aspirin and vitamins now. On the morning of surgery: Do NOT take: Hydrochlorothiazide. Januvia Zyrtec Gabapentin Oxycodone Ativan (lorazepam) Lisinopril/HCTZ Take all other meds as you usually do. Follow the Diabetc/Surgery instuction book Decrease your evening dose of insulin by 1/2. Will send note to her DME provider for the scooter request for improvement of her mobility at home and outside the home. documented in this encounter Plan of Treatment Upcoming Encounters Date Type Specialty Care Team Description 01/18/2022 Telemedicine Family Medicine Sebastian Griffiths MD [address] [place] [address] [phone] (Wo rk) documented as of this encounter Procedures Procedure Name Priority Date/Time Associated Diagnosis Comme nts XR CHEST 2 VIEWS Routine 10/21/2019 3:00 PM Pre-op evaluation Results for this CDT procedure are i n the results section. documented in this encounter Results X-ray Chest 2 Views (10/21/2019 3:00 PM CDT) Anatomical Region Laterality Modality Body Radiographic Imaging Specimen (Source) Anatomical Collection Method Collection Time Re ceived Time Location / / Volume Laterality 10/21/2019 3:00 PM CDT Impressions 10/21/2019 4:07 PM CDT IMPRESSION: There has been interval development of m ild patchy densities medially in the right lower lung, which may represen t atelectasis or pneumonia. Narrative 10/21/2019 4:07 PM CDT INDICATION: Asthma, acute, uncomplicated COMPARISON: Chest x-ray May 24, 2018 FINDINGS: CHEST 2 VIEWS No pulmonary vascular cephalization. Hea rt size is within normal limits. Calcification and mild descending tortuo sity are again seen in the aorta. There mild interstitial coarsening in th e left lower lung is similar to the prior exam, consistent with scarring . ??There has been interval development of mild patchy densities med ially in the right lower lung. ??No pneumothorax or pleural effusion. Verteb roplasty cement is again seen at approximately L1. Old left posterior sam roximately 5th rib fracture is re-demonstrated. No acute fracture. Procedure Note Shima Hsu MD - 10/21/2019 INDICATION: Asthma, acute, uncomplicated COMPARISON: Chest x-ray May 24, 2018 FINDINGS: CHEST 2 VIEWS No pulmonary vascular cephalization. Hea rt size is within normal limits. Calcification and mild descending tortuo sity are again seen in the aorta. There mild interstitial coarsening in th e left lower lung is similar to the prior exam, consistent with scarring . There has been interval development of mild patchy densities med ially in the right lower lung. No pneumothorax or pleural effusion. Verteb roplasty cement is again seen at approximately L1. Old left posterior sam roximately 5th rib fracture is re-demonstrated. No acute fracture. IMPRESSION: There has been interval development of m ild patchy densities medially in the right lower lung, which may represen t atelectasis or pneumonia. Sebastian Griffiths MD IMG XR PROCEDURES documented in this encounter Visit Diagnoses Diagnosis Pre-op evaluation - Primary Controlled type 2 diabetes mellitus with out complication, without long-term current use of insulin (HCC) Chronic hepatitis C without hepatic coma (HCC) Chronic obstructive pulmonary disease, u nspecified COPD type (HCC) Gastro-esophageal reflux disease without esophagitis Generalized anxiety disorder Antisocial personality disorder (HCC) Antisocial personality disorder Body mass index (BMI) 40.0-44.9, adult Borderline personality disorder (HCC) Borderline personality disorder Chronic pain syndrome Hypertension, essential, benign Essential hypertension, benign Degenerative disc disease, lumbar documented in this encounter Care Teams English Adjunct Faculty Relationship Specialty Start Date End Date Sebastian Griffiths MD PCP - General 10/24/[address] [place] [id number] documented as of this encounter
--- OUTSIDE RECORDS SUMMARY | 2021-12-09 21:29 | XMS_ITS | Encounter Summary ---
:1950 Author Organization [facility] Address [address] [place] [id number] Care Team Providers Name Role Phone Sebastian [...] Expiration Date Visits Requ ested Visits Authorized [id number] 1 1 Encounter Details Date Type Department Care Team Description 10/30/2019 Anesthesia Event [facility] , Room Mary Wagner MD [address] [facility] [address] [place] [address] [place], [place] [phone] (Wo rk) Anesthesia Record Procedure Summary Procedure Name Responsible Anesthesia Start Anesthesia Stop Anesthesiologist Time Time ARTHROSCOPY SHOULDER Mary Deras, 10/30/19 1145 10/30/19 1427 WITH ROTATOR CUFF MD REPAIR, revision decompression, distal clavicle excision, and proximal biceps tenotomy (possible open biceps sheath debridement) (Right Shoulder) Events Date Time Event Comment 10/30/2019 1049 1145 An Start 1145 An Start Data 1146 In Room 1157 Anes Handoff I, Dana Booth CRNA, attest that I have reviewed all the signific ant information with the next attending gracie suarez care of this patient. 1200 An Induction The patient was reevaluated immediately before moderate or deep sedation use and before anesthesia induction. 1202 An Intubation 1207 Anesthesia Ready 1241 Proc Start 1332 Proc Fin 1359 Out of Room 1408 An Extubation 1415 an stop data 1424 Handoff to RN I completed my h andoff to the receiving nurse during which we: 1. Tommy ntified the patient 2. Identified the responsible provider 3. Reviewed the pertinent medical history 4. Discussed the surgical course 5. Reviewed intra-o p anesthesia management and issues during anesthesi a 6. Set expectations for post-procedure p eriod 7. Allowed opportunity for questions and ac knowledgement of understanding. 1427 An Stop Name Total midazolam 1 mg/mL 2 mg fentaNYL (SUBLIMAZE) injection 250 mcg propofol (DIPRIVAN) injection 10 mg/mL 200 mg rocuronium 40 mg succinylcholine (ANECTINE) 200 mg/10mL injection 160 m g ondansetron 2 mg/mL 4 mg dexamethasone (DECADRON) injection 4 mg/mL 8 mg ePHEDrine injection 35 mg phenylephrine (HERBERT-SYNEPHRINE) 100 mcg/mL syringe 10 m L 1,000 mcg phenylephrine (HERBERT-SYNEPHRINE) 100 mcg/mL syringe 10 m L 0.94 mg lidocaine injection 2% (5 ml) 100 mg cloNIDine injection 100 mcg/mL 150 mcg sugammadex (BRIDION) injection 350 mg HYDROmorphone (DILAUDID) injection 1 mg/mL 0.5 mg ketorolac (TORADOL) injection 30 mg 30 mg Flumazenil (ROMAZICON) injection 0.5 mg/5 mL 0.2 mg lactated Ringer's infusion 1,100 mL Agents Name N2O % Minute Volume Sevoflurane FiO2 Inspired Sevoflurane Blood No blood administrations on file. Lines, Drains, and Airways Type Details Placement Removal Incision/Surgical Site 10/30/19; 1254; N; 10/30/19 1254 by Shoulder; Right Rhoda Galarza RN Peripheral IV Placement Date: 10/30/19 1029 by 10/31/19 1400 b y 10/30/19; Placement Lucrecia Cuellar, MARLENE larry, Time: 1029; Catheter RN Size: 20 G; Orientation: Left; Location: Arm; Site Prep: Chlorhexidine ; Local Anesth: Injectable; Insertion Attempts: 3; Patient Tolerance: Tolerated well; Removal Date: 10/31/19; Removal Time: 1400 ETT Placement Date: 10/30/19 1202 by 10/30/19 1408 b y 10/30/19; Placement Dana Booth APRN, Dana franklin APRN, Time: 1202 (created via MUSIC HISTORIAN MUSIC HISTORIAN procedure documentation); Mask Ventilation: 2; Technique: Direct laryngoscopy; Type: ETT - single; Single Lumen Tube Size: 7 mm; Cuffed: Yes; Laryngoscope: Edwin; Blade Size: 3; Location: Oral; Grade View: Grade IIb; Insertion Attempts: 1; Placement Verification: Auscultation, Capnometry; Removal Date: 10/30/19; Removal Time: 1408 documented in this encounter Social History Tobacco [...] or relatives? How often do you attend muslim or Never 2020 gnosticism services? Do you belong to any clubs or No 05/18/2020 organizations such as muslim groups, unions, fraternal or athletic groups, or [...] / COVID-19? documented as of this encounter OR Notes Anesthesia Postprocedure Evaluation - Mary Deras MD - 10/30/2019 3:18 PM CDT Patient: Rena Galvez Procedure Summary Date: 10/30/19 [place] / [place] [facility] [place] [address] [place] [address] Operating Room Anesthesia Start: 1145 Anesthesia Stop: 1427 Procedure: ARTHROSCOPY SHOULDER WITH ROTATOR CUFF REPAIR, revision decompression, distal clavicle excision, and proximal biceps tenotomy (possible open biceps sheath debridement) (Right Shoulder) Diagnosis: Nontraumatic incomplete tear of right rotator cuff Rotator cuff impingement syndrome of right shoulder Arthritis of right acromioclavicular joint Tendinopathy of right biceps tendon (Nontraumatic incomplete tear of right rotator cuff [M75.111]) (Rotator cuff impingement syndrome of right shoulder [M75.41]) (Arthritis of right acromioclavicular joint [M19.011]) (Tendinopathy of right biceps tendon [M67.921]) Surgeon: Regan Velásquez MD Responsible Provider: Mary Deras MD Anesthesia Type: general ASA Status: 3 Anesthesia Type: general Last vitals Vitals Value Taken Time BP 104/50 10/30/2019 3:17 PM Temp 36.6 ??C (97.9 ??F) 10/30/2019 2:40 PM Pulse 95 10/30/2019 3:17 PM Resp 12 10/30/2019 3:15 PM SpO2 96 % 10/30/2019 3:17 PM Vitals shown include unvalidated device data. Anesthesia Post Evaluation Patient location during evaluation: PACU Patient participation: complete - patient participated Level of consciousness: sleepy but conscious and responsive to verbal stimuli Pain score: 2 Pain management: adequate Airway patency: patent Anesthetic complications: no Cardiovascular status: stable Respiratory status: nonlabored ventilation and spontaneous ventilation Hydration status: stable Nausea and vomiting control satisfactory transfer to floor on oxygen (2l/min) 19:00 visited on floor - appears sleepy, is eating dinner, doing well Anesthesia Procedure Notes - Dana Booth CRNA - 10/30/2019 12:06 PM CDT Associated Order(s): Airway Airway Date/Time: 10/30/2019 12:02 PM Urgency: elective General Information and Staff Patient location during procedure: OR Resident/MUSIC HISTORIAN: BRIE London,PRENATAL NURSE,MUSIC HISTORIAN Indications and Patient Condition Indications for airway management: anesthesia Spontaneous Ventilation: absent Sedation level: deep Preoxygenated: yes Patient position: sniffing Mask difficulty assessment: 2 - vent by mask + OA or adjuvant +/- NMBA Final Airway Details Final airway type: endotracheal airway Successful airway: ETT Cuffed: yes Successful intubation technique: direct laryngoscopy Facilitating devices/methods: cricoid pressure and intubating stylet Endotracheal tube insertion site: oral Blade: Edwin Blade size: #3 ETT size (mm): 7.0 Cormack-Lehane Classification: grade IIb - view of arytenoids or posterior of glottis only Placement verified by: chest auscultation and capnometry Measured from: teeth ETT to teeth (cm): 20 Number of attempts at approach: 1 Anesthesia Preprocedure Evaluation - Mary Deras MD - 10/30/2019 10:47 AM CDT Anesthesia Adult ROS/MED Evaluation No FH of anesthesia problems No problems with anesthesia in past NPO, in normal health, no acute illness Took meds in am heartburn Clinical information reviewed: Tobacco Allergies Meds Med Hx Surg Hx Fam Hx Soc Hx Results for RENA GALVEZ ( ) as of 10/30/2019 10:48 Ref. Range 10/21/2019 13:24 10/21/2019 13:33 10/21/2019 15:00 10/27/2019 07:46 Cholesterol Latest Ref Range: 0 - 199 mg/dL 198 Triglycerides Latest Ref Range: 0 - 149 mg/dL 233 (H) HDL Latest Ref Range: 40 - 250 mg/dL 63 LDL Calculated Latest Ref Range: 0 - 99 mg/dL 88 Sodium Latest Ref Range: 135 - 145 mEq/L 136 Potassium Latest Ref Range: 3.5 - 5.1 mEq/L 3.6 Chloride Latest Ref Range: 98 - 107 mEq/L 100 CO2 Latest Ref Range: 22 - 29 mmol/L 28 BUN Latest Ref Range: 5 - 25 mg/dL 15 Creatinine Latest Ref Range: 0.4 - 1.2 mg/dL 0.7 GFR Unknown >60 Glucose Latest Ref Range: 70 - 100 mg/dL 130 (H) Calcium, Total,S Latest Ref Range: 8.4 - 10.2 mg/dL 9.9 Alkaline Phosphatase Latest Ref Range: 38 - 128 U/L 84 Albumin, Serum Latest Ref Range: 3.5 - 5.0 g/dL 4.4 Total Protein Latest Ref Range: 6.3 - 8.2 g/dL 7.9 AST Latest Ref Range: 8 - 43 U/L 53 (H) ALT (SGPT) Latest Ref Range: 0 - 34 U/L 45 (H) Bilirubin, Direct Latest Ref Range: 0.0 - 0.3 mg/dL <0.1 Total Bilirubin Latest Ref Range: 0.1 - 1.0 mg/dL 1.0 GFR Unknown >60 Hemoglobin A1C Latest Ref Range: 4.0 - 5.6 % A1C 6.3 (H) Microalb/Creat Ratio Latest Ref Range: 0 - 24 mg/g 18 Microalbumin,mg/day Latest Ref Range: 0.0 - 16.6 mg/L 54.0 (H) Creatinine, Urine Latest Units: mg/dL 297 SARS Covid specimen source Unknown Nasopharyngeal SARS CoV2 RNA Latest Ref Range: Undetected Undetected Physical Exam Airway Mallampati: III TM distance: <3 FB Neck ROM: limited Cardiovascular - normal exam Dental (+) upper dentures, lower dentures Pulmonary - normal exam Abdominal Anesthesia Plan ASA 3 general ET intravenous induction Anesthetic plan and risks discussed with patient. Plan discussed with MUSIC HISTORIAN. Initial evaluation reviewed, no significant interval change. Re-evaluation prior to induction complete. Discussed the procedure and possible risks of PONV, soreness of throat, dental and/or lip damage, serious complications, possible postoperative muscle soreness documented in this encounter Miscellaneous Notes Addendum Note - Mary Deras MD - 10/30/2019 7:07 PM CDT Addendum created 10/30/191906 by Mary Deras MD Clinical Note Signed documented in this encounter Plan of Treatment Upcoming Encounters Date Type Specialty Care Team Description 01/18/2022 Telemedicine Family Medicine Sebastian Griffiths MD [address] [place] [address] [phone] (Wo rk) documented as of this encounter Procedures Procedure Name Priority Date/Time Associated Comments Diagnosis MI AN ELECTIVE Routine 10/30/2019 12:06 Results f or this ENDOTRACHEAL AIRWAY PM CDT procedur e are in the results section. documented in this encounter Results MI AN ELECTIVE ENDOTRACHEAL AIRWAY (10/30/2019 12:06 PM CDT) Narrative Dana Booth CRNA - 10/30/2019 12:06 PM CDT Dana Booth CRNA ? 10/30/2019 12:06 PM Airway Date/Time: 10/30/2019 12:02 PM Urgency: elective General Information and Staff Patient location during procedure: OR Resident/MUSIC HISTORIAN: BRIE London AP RN,MUSIC HISTORIAN Indications and Patient Condition Indications for airway management: anest hesia Spontaneous Ventilation: absent Sedation level: deep Preoxygenated: yes Patient position: sniffing Mask difficulty assessment: 2 - vent by mask + OA or adjuvant +/- NMBA Final Airway Details Final airway type: endotracheal airway Successful airway: ETT Cuffed: yes Successful intubation technique: direct laryngoscopy Facilitating devices/methods: cricoid pr essure and intubating stylet Endotracheal tube insertion site: oral Blade: Edwin Blade size: #3 ETT size (mm): 7.0 Cormack-Lehane Classification: grade IIb - view of arytenoids or posterior of glottis only Placement verified by: chest auscultatio n and capnometry Measured from: teeth ETT to teeth (cm): 20 Number of attempts at approach: 1 Mary Deras MD ANESTHESIA ORDERABLES documented in this encounter Visit Diagnoses Not on filedocumented in this encounter Administered Medications Inactive Administered Medications - up to 3 most recent administrations Medication Order MAR Action Action Date Dose Rate Site cloNIDine (DURACLON) injection Given 10/30/2019 12:59 PM CDT 50 mcg As needed, Starting on Mon10/30/19 at 1254, Anesthesia Intraprocedure Given 10/30/2019 12:55 PM CDT 50 mcg Given 10/30/2019 12:54 PM CDT 50 mcg dexamethasone (DECADRON) injection Given 10/30/2019 12:04 PM CDT 8 mg Intravenous, As needed, Starting on Mon10/30/19 at 1204, Anesthesia Intraprocedure EPHEDRINE SULFATE-NACL 25-0.9 MG/5ML-% IV Given 10/30/2019 12:27 PM CDT 10 mg SOSY Intravenous, As needed, Starting on Mon10/30/19 at 1220, Anesthesia Intraprocedure Given 10/30/2019 12:24 PM CDT 10 mg Given 10/30/2019 12:23 PM CDT 10 mg fentaNYL (SUBLIMAZE) injection Given 10/30/2019 1:09 PM CDT 50 mcg Intravenous, As needed, Starting on Mon10/30/19 at 1206, Anesthesia Intraprocedure Given 10/30/2019 12:43 PM CDT 50 mcg Given 10/30/2019 12:06 PM CDT 150 mcg flumazenil (ROMAZICON) injection Given 10/30/2019 1:54 PM CDT 0.1 mg As needed, Starting on Mon10/30/19 at 1346, Anesthesia Intraprocedure Given 10/30/2019 1:46 PM CDT 0.1 mg HYDROmorphone (DILAUDID) injection Given 10/30/2019 11:58 AM CDT 0.5 mg As needed, Starting on Mon10/30/19 at 1158, Anesthesia Intraprocedure ketorolac (TORADOL) injection Given 10/30/2019 1:24 PM CDT 30 mg Intravenous, As needed, Starting on Mon10/30/19 at 1324, Anesthesia Intraprocedure lactated Ringer's infusion New Bag 10/30/2019 1:04 PM CDT 75 mL/hr, Intravenous, Continuous, Starting on Mon10/30/19 at 1000, For 5 days Continued from Pre 10/30/2019 11:46 AM CDT New Bag 10/30/2019 10:30 AM CDT 75 mL/hr 75 mL/hr Lidocaine HCl (Cardiac) PF injection Given 10/30/2019 12:00 PM CDT 100 mg Intravenous, As needed, Starting on Mon10/30/19 at 1200, Anesthesia Intraprocedure midazolam (VERSED) injection Given 10/30/2019 11:50 AM CDT 2 mg Intravenous, As needed, Starting on Mon10/30/19 at 1150, Anesthesia Intraprocedure ondansetron (ZOFRAN) injection Given 10/30/2019 12:55 PM CDT 4 mg Intravenous, As needed, Starting on Mon10/30/19 at 1255, Anesthesia Intraprocedure phenylephrine 1 mg/10 mL in sodium chloride Given 10/18 12:26 PM CDT 200 mcg 0.9% syringe Intravenous, As needed, Starting on Mon10/30/19 at 1217, Anesthesia Intraprocedure Given 10/30/2019 12:23 PM CDT 200 mcg Given 10/30/2019 12:22 PM CDT 200 mcg phenylephrine 1 mg/10 mL in Rate/Dose 10/30/2019 12:50 0.2 mcg/kg/mi n 12.19 sodium chloride 0.9% Change PM CDT mL/hr syringe Intravenous, Continuous PRN, Starting on Mon10/30/19 at 1228, Anesthesia Intraprocedure Rate/Dose Change 10/30/2019 12:45 PM CDT 0.3 mcg/kg/min 18.29 mL/hr New Bag 10/30/2019 12:28 PM CDT 0.4 mcg/kg/min 24.4 mL/hr propofol (DIPRIVAN) injection Given 10/30/2019 11:59 AM CDT 200 mg Intravenous, As needed, Starting on Mon10/30/19 at 1159, Anesthesia Intraprocedure rocuronium (ZEMURON) injection Given 10/30/2019 12:04 PM CDT 40 mg Intravenous, As needed, Starting on Mon10/30/19 at 1204, Anesthesia Intraprocedure succinylcholine chloride (ANECTINE) 200 Given 10/30/2019 11:59 A M CDT 160 mg MG/10ML injection Intravenous, As needed, Starting on Mon10/30/19 at 1159, Anesthesia Intraprocedure sugammadex (BRIDION) 500 MG/5ML injectio n Given 10/30/2019 1:35 PM CDT 350 mg As needed, Starting on Mon10/30/19 at 1335, Anesthesia Intraprocedure documented in this encounter Care Teams Public Health Service Officer Relationship Specialty Start Date End Date Sebastian Griffiths MD PCP - General 10/24/[address] [place] [address] [phone] documented as of this encounter
--- OUTSIDE RECORDS SUMMARY | 2021-12-09 21:29 | XMS_ITS | Encounter Summary ---
:[address] [facility] Address [address] [place] [address] Care Team Providers Name Role Phone Rocío Griffiths MD Primary Care Provider Reason for Visit Reason Onset Date Comments RE: Pain meds 11/01/2019 Encounter Details Date Type Department Care Team Description 11/01/2019 Telephone [facility] Orthope Regan Barahona MD RE: Pain meds [address] [facility] [address] [place] [address] [place], [place] [phone] (Wo rk) Social History Tobacco Use Types [...] do you attend religion or Never 2020 jewish services? Do you [...] this encounter Miscellaneous Notes Telephone Encounter - Anshul Velasquez RN - 11/04/2019 12:44 PM CDT haley Donato an FYI Telephone Encounter - Mili Rivera MA - 11/04/2019 10:16 AM CDT Patient informed Telephone Encounter - Yanna Cheng LPN - 11/01/2019 4:37 PM CDT Left message to call back. Addendum Note - Rocío Griffiths MD - 11/01/2019 3:51 PM CDT Addended by: ROCÍO GRIFFITHS on: 11/01/2019 03:51 PM Modules accepted: Orders Telephone Encounter - Rocío Griffiths MD - 11/01/2019 3:50 PM CDT I refilled a smaller quantity prescription with new instructions that more likely will go through. Idiscontinued the other prescription prescribed by Ortho. Have her check again with pharmacy. Telephone Encounter - Yanna Cheng LPN - 11/01/2019 3:28 PM CDT Patient was advised. She states that she is unable to pick this up, as pharmacy told her it needs a prior authorization. She wonders what she can do while waiting for this, as she is in a lot of pain. Please advise. Telephone Encounter - Rocío Griffiths MD - 11/01/2019 3:15 PM CDT It looks like Tanmay Kelly prescribed 90 tablets of oxycodone yesterday to Susu Koch Telephone Encounter - Magdalena Meadows LPN - 11/01/2019 2:36 PM CDT Senior Product Development Manager does not see an Rx for Oxycodone done by Dr. Griffiths. Patient called sql report writer to check on statusbut no PA has been started as nothing is in chart for Oxycodone. Telephone Encounter - Jorge Alberto Winston MA - 11/01/2019 11:35 AM CDT Patient calling again wondering if Dr Velásquez can prescribe her something she is in a lot of pain. Please advise saeid. Telephone Encounter - Jorge Alberto Winston MA - 11/01/2019 9:50 AM CDT Patient calling stating that her pharmacy is needing a prior Auth for her Oxycodone, is there anything else that you can fill for her? She doesn't know of anything else that will work for her. But she is in pain and has no pain medications. Right shoulder scope done 10/30/2019 Please advise. Prior Auth: Can you check into this patient pain meds to see if this is something that can be approved for her. Thanks documented in this encounter Plan of Treatment Upcoming Encounters Date Type Specialty Care Team Description 01/18/2022 Telemedicine Family Medicine Rocío Griffiths MD [address] [place] [phone] (Wo rk) documented as of this encounter Visit Diagnoses Diagnosis Chronic pain syndrome documented in this encounter Care Teams Public Relations Consultant Relationship Specialty Start Date End Date Rocío Griffiths MD PCP - General 10/24/[address] [place] [phone] documented as of this encounter
--- OUTSIDE RECORDS SUMMARY | 2021-12-09 21:29 | XMS_ITS | Encounter Summary ---
:1950 Author Organization [facility] Address [address] [place] [address] Care Team Providers Name Role Phone Sebastian [...] Expiration Date Visits Requ ested Visits Authorized [id number] 1 1 Encounter Details Date Type Department Care Team Description 10/30/2019 - Hospital Encounter [facility] Regan Velásquez S/P ar throscopy of 10/31/2019 Medical/Surgical MD Jorge Alberto right shoulder [address] (Primary Dx) [address] [phone] [place] [address] Social History Tobacco Use Types [...] do you attend shinto or Never 2020 zoroastrian services? Do you [...] Sign Reading Time Taken Comments Blood Pressure 172/98 10/31/2019 12:10 PM CDT Pulse 88 10/31/2019 12:10 PM CDT Temperature 36.2 ??C (97.2 ??F) 10/31/2019 12:10 PM CDT Respiratory Rate 18 10/31/2019 12:10 PM CDT Oxygen Saturation 95% 10/31/2019 12:10 PM CDT Inhaled Oxygen Concentration - - [...] 10:00 AM Warren De La Torre DPT [facility] 11/12/2019 10:15 AM Regan Kelly APRN, POWER TRANSFORMER INSPECTOR [facility] 12/12/2019 10:00 AM Regan Kelly APRN, POWER TRANSFORMER INSPECTOR [facility] 12/24/2019 9:40 AM Sebastian Griffiths MD [facility] DETAILS OF HOSPITAL STAY Presenting Problem/History of [...] Your Medications These medications were sent to [address] [address] ?? oxyCODONE 5 MG immediate release tablet [...] routine care pathway. 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 Dressing care reviewed with [...] through Care Everywhere. Shoulder Arthroscopy Care After (Barbadian)documented in this encounter Medications at Time of [...] (ACULAR) 0.5 % Administer 1 drop 0 /0 07/2018 ophthalmic solution into affected eye(s) 4 [...] into affected eye(s) 2 times daily ACCU-CHEK SMARTGlySure test USE DIRECTED 200 each 3 201807/08/2020 stripIndications: TESTING TWICE DAILY Controlled type 2 diabetes mellitus without complication, without long-term current use of insulin ([facility]) ACETAMINOPHEN EXTRA TAKE TWO TABLETS [...] without long-term current use of insulin ([facility]) cefdinir (OMNICEF) 300 MG TAKE 1 CAPSULE [...] Major depressive disorder, recurrent episode, moderate (HCC) enoxaparin (LOVENOX) 40 INJECT 40MG/0.4ML 0 05/2112/03/2020 [...] TAKE ONE CAPSULE BY 90 capsule 5 04/201812/04/2019 300 MG MOUTH THREE TIMES A capsuleIndications: DAY Chronic pain syndrome gabapentin (NEURONTIN) TAKE ONE TABLET BY 270 tablet 3 04/1505/18/2020 600 MG tabletIndications: MOUTH THREE TIMES A Controlled type 2 DAY --TAKE ALONG diabetes mellitus without WITH 300MG CAPSULES complication, without long-term current use of insulin ([facility]) hydroCHLOROthiazide Take 25 mg by [...] diabetes mellitus with peripheral circulatory disorder ([facility]) Insulin Pen Needle 31G X 1 Pen needle 1 (one) 100 each 1 0 11/15/2018 05/18/2020 8 MM miscIndications: time each day Controlled type 2 diabetes mellitus without complication, without long-term current use of insulin ([facility]) ipratropium-albuterol USE ONE (1) VIAL VIA 180 mL 3 03/2010/05/2020 (DUO-NEB) 0.5-2.5 mg/3 mL NEBULIZER UP TO nebulizer EVERY 4 HOURS solutionIndications: NEEDED WHEEZING. Chronic obstructive pulmonary disease, unspecified COPD type ([facility]) JANUVIA 100 MG TAKE ONE TABLET BY 90 tablet 3 03/11/2019 tabletIndications: MOUTH EVERY MORNING Controlled type 2 diabetes mellitus without complication, without long-term current use of insulin ([facility]) latanoprost (XALATAN) Administer 1 drop 0 12/22/2020 0.005 % ophthalmic into affected eye(s) solution lidocaine (XYLOCAINE) 5 % Apply topically 0 03/0712/03/2020 ointment Apply small bead and rub in skin 2-4 times a day over painful back area. Wash off hands. lisinopril-hydroCHLOROthi Take 1 tablet by 30 tablet 11 09/201805/18/2020 azide mouth 1 (one) time (PRINZIDE,ZESTORETIC) [...] same pulmonary disease, time unspecified COPD type (HCC) nicotine (NICODERM CQ) 21 Place 1 patch [...] Major depressive disorder, recurrent episode, moderate (HCC) STOOL SOFTENER/LAXATIVE TAKE 2 TABLETS BY 180 [...] this encounter Progress Notes Regan Kelly, JANICE, POWER TRANSFORMER INSPECTOR - 10/31/2019 8:17 AM CDT Subjective 1 [...] PM CDT Operative Note Date: 10/30/2019 Location: [facility] OR Name: Renayvonne Fan, : 1950, Diagnosis Pre-op Diagnosis * [...] MD - Primary * Regan Kelly APRN, POWER TRANSFORMER INSPECTOR - Assisting Procedure Summary Anesthesia: General ASA: III Estimated Blood Loss: Minimal Staff: Export Freight Manager: Rhoda Galarza RN Scrub Person: Candice Murillo; Rebeca Lemon Indications: Rena Fan is an 69 y.o. female who is having surgery for Nontraumatic incomplete tear of right rotator cuff [M75.111] Rotator cuff impingement syndrome of right shoulder [M75.41] Arthritis of right acromioclavicular joint [M19.011] Tendinopathy of right biceps tendon [M67.921]. Cutting Inspector Role: See note body. Intraoperative Findings: Reviewed [...] 01/18/2022 Telemedicine Family Medicine Sebastian Griffiths MD [address] [place] [address] 90 (Wo rk) documented as of this [...] Glucose Blood, 96 70 - 100 10/31/2019 SANDRASocialDiabetesA L POC mg/dL 11:00 AM CDT [facility] Comment: Meter ID: [id number] Capillary whole blood specimens should n ot [...] D DEVICE UNSOLICITED RESULTS Performing Organization Address [facility] Phon e Number [facility] [address] [place] [phone] (ABNORMAL) POCT Precision glucose (10/31/2019 7:31 AM CDT) P athologist Signature Glucose Blood, 152 (H) 70 - 100 10/31/2019 SANDRA POC mg/dL 7:34 AM CDT [facility] Comment: Meter ID: [id number] Capillary whole blood specimens should n ot [...] D DEVICE UNSOLICITED RESULTS Performing Organization Address [facility] e Number [facility] [address] [place] [phone] (ABNORMAL) POCT Precision glucose (10/30/2019 11:34 PM CDT) P athologist Signature Glucose Blood, 212 (H) 70 - 100 10/30/2019 SANDRA POC mg/dL 11:35 PM CDT [facility] Comment: Meter ID: [id number] Capillary whole blood specimens should n ot [...] D DEVICE UNSOLICITED RESULTS Performing Organization Address [facility] Phon e Number [facility] [address] [place] [phone] (ABNORMAL) POCT Precision glucose (10/30/2019 5:29 PM CDT) P athologist Signature Glucose Blood, 146 (H) 70 - 100 10/30/2019 SANDRA POC mg/dL 5:29 PM CDT [facility] Comment: Meter ID: [id number] Capillary whole blood specimens should n ot [...] D DEVICE UNSOLICITED RESULTS Performing Organization Address [facility] e Number [facility] [address] [place] [phone] (ABNORMAL) POCT Precision glucose (10/30/2019 2:31 PM CDT) P athologist Signature Glucose Blood, 156 (H) 70 - 100 10/30/2019 SANDRA POC mg/dL 2:32 PM CDT [facility] Comment: Meter ID: [id number] Capillary whole blood specimens should n ot [...] D DEVICE UNSOLICITED RESULTS Performing Organization Address City/[facility]/ZIP [facility] Phon e Number [facility] [address] [place] [phone] POCT Precision glucose (10/30/2019 10:26 AM CDT) athologist Signature Glucose Blood, 98 70 - 100 10/30/2019 [facility] L POC mg/dL 10:27 AM CDT [facility] Comment: Meter ID: [id number] Capillary whole blood specimens should n ot [...] D DEVICE UNSOLICITED RESULTS Performing Organization Address City/[facility] Phon e Number [facility] [address] [place] [phone] documented in this encounter Visit Diagnoses Diagnosis S/P arthroscopy of right shoulder - Prim sudhakar documented in this encounter Administered Medications Inactive Administered Medications - up to 3 most recent administrations Medication Order MAR Action Action Date Dose Rate Site acetaminophen (TYLENOL) suppository 650 mg 650 mg, Rectal, Every 6 hours scheduled, First dose on Mon10/30/19 at 1800, For 10 days, Phase II/On Unit, Give WY if unabl e to administer by mouth [...] or chew. famotidine (PEPCID) injection 20 mg Given 10/30/2019 [...] Every morning before breakfast, First dose on Mon10/31/19 at 0600, Phase [...] Vazquez)1235 (See Alternative - Provider: Aissatou Fontana, RN) 650 mg, Rectal, Every 6 hours scheduled, First dose on Mon10/30/19 at 1800, For 10 days, Phase II/On Unit, Give WY if unable to administer by mouth or feeding tube. acetaminophen (TYLENOL) suspension 640 mg(Linked Group 1) 1720 (See Alternative - Provider: Rocio Herrera)2335 (See Alternative - Provider: IVELISSE Carey) 0604 (See Alternative - Provider: IVELISSE Vazquez)1235 (See Alternative - Provider: Aissatou Fontana, RN) 640 mg (rounded from 650 mg), Oral, [...] IVELISSE Carey)1235 (Given - Provider: Aissatou Fontana, RN) 650 mg, Oral, Every 6 hours scheduled, F irst dose on Mon10/30/19 at 1800, For 10 days, Phase II/On Unit amLODIPine (NORVASC) tablet 5 mg 827 (Given - Provider: Aissatou Fontana, RN) 5 mg, Oral, Daily, First dose on 10/18 at 0900, For 10 days, Phase II/On Unit ceFAZolin (ANCEF) IVPB 2 g in 50 mL (COMPLETED) 1140 (Given - Provider: Catherine Rincon, RN) 2 g, Intravenous, at 100 mL/hr, Administ er over 30 Minutes, Once, Mon10/30/19 at 1130, For 1 dose, Preprocedure, Administer within 60 minutes of incision., Indication: Surgical Site ceFAZolin (ANCEF) IVPB 2 g in 50 mL (COMPLETED) 181 (Given - Provider: Rocio Herrera)2335 (Given - [...] IVELISSE Owen - Reason: Patient/family refused) 0833 (Given - Provider: Aissatou mathur, MARLENE) 1 drop, Both Eyes, 2 times daily, First dose on Mon10/30/19 at 2100, Phase II/On Unit DULoxetine (CYMBALTA) DR capsule 120 mg 0830 (Given - Provider: Aissatou Fontana, MARLENE) 120 mg, Oral, Daily, First dose on Mon at 0900, For 10 days, Phase II/On Unit, Do not crush or chew. famotidine (PEPCID) injection 20 mg (COMPLETED) 1034 (Given - Provider: Hesham Chavarria, MARLENE) 20 mg, Intravenous, Administer over 2 Mi nutes, Once, Mon10/30/19 at 1030, For 1 dose, Preprocedure, Dilute in 5 mL of NS and IV Push over 2 minutes fentaNYL (SUBLIMAZE) injection 50 mcg (COMPLETED) 1051 (Given - Provider: Hesham Chavarria, RN) 50 mcg, Intravenous, Once, Mon10/30/19 at 1130, For 1 dose, Prep rocedure gabapentin (NEURONTIN) capsule 900 mg 21 26 (Given - Provider: IVELISSE Owen) 0830 (Given - Provider: Aissatou mathur, RN)1236 (Given - Provider: Aissatou Fontana, RN) 900 mg, Oral, 3 times daily, First [...] 1816 (Canceled Entry - Provider: Libby Hussein, PharmD)2132 (Not Given - Provider: IVELISSE Owen - Reason: Patient/family refused) 0833 (Not Given - Provider: Aissatou Fontana, MARLENE - Reason: Patient/family refused)1241 (Not Given - [...] (VIGAMOX) 0.5 % ophthalmic solution 1 drop 2099 (Canceled Entry - Provider: Libby Hussein, PharmD - Comment: med not available) 0845 (Not Given - Provider: Aissatou Fontana RN - Reason: Patient/family refused - Comment: i don not put no medicine in my eye)1242 (Not Given - Provider: Aissatou Fontana RN - Reason: Patient/family refused) 1 drop, Ophthalmic, 4 times daily, First dose on Mon10/30/19 at 2100, Phase II/On Unit oxyCODONE HCl ER (OxyCONTIN) 10 mg (COMPLETED) 105 (Given - Provider: Hesham Chavarria, RN) 10 mg, Oral, Once, Mon10/30/19 at 1000, For 1 dose, Preprocedure, Do not crush, chew, or split. pantoprazole (PROTONIX) EC tablet 40 mg 0830 (Given - Provider: Aissatou Fontana, MARLENE) 40 mg, Oral, Daily, First dose on Mon at 0900, Phase II/On Unit, Do not crush, chew, or split. prednisoLONE acetate (PRED FORTE) 1 % ophthalmic suspension 1 drop 181 (Given - Provider: Rocio Herrera - Comment: Pharmacy needed to verify)213 (Not Given - Provider: IVELISSE Owen - [...] IVELISSE Owen) 0829 (Given - Provider: Aissatou mathur, MARLENE) 2 mg, Oral, 2 times daily, First dose on Mon10/30/19 at 2100, For 10 days, Phase II/On Unit, [facility] Class 2: ? ? Unit dose tablet: [...] 17.2 mg 2125 (Giv en - Provider: ENRIQUE OwenN) 17.2 mg (2 tablet), Oral, Nightly, First [...] Oral, Every 6 hours PRN, itching, Starting Mon10/30/19 at 1542, Phase II/On Unit ipratropium-albuterol (DUO-NEB) [...] ovider if no further options ordered. Pa tient should allow tablet to dissolve on tongue. Do not remove from blister pack until just before administering. oxyCODONE (ROXICODONE) 5 MG/5ML solution 10 mg(Linked Group 5) 1720 (See Alternative - Provider: Rocio Herrera)2141 (See Alternative - Provider: IVELISSE Owen)2149 (See Alternative - Provider: Rocio Herrera) 0612 [...] Group 5) 1720 (Given - Provider: Rocio Herrera)2141 (Not Given - Provider: IVELISSE Owen - Reason: Other)2149 (Given - Provider: Rocio Herrera) 0612 (Given - Provider: Warren So, ENRIQUEN)0949 (Given - Provider: Aissatou Fontana, RN)1416 (Given [...] For 10 days, Phase II/On Unit
Give WY if unable to administer by mouth or [...] ordered.
documented in this encounter Care Teams Shift Coordinator Relationship Specialty Start Date End Date Sebastian Griffiths MD PCP - General 10/24/[address] [place] [phone] documented as of this encounter
--- OUTSIDE RECORDS SUMMARY | 2021-12-09 21:29 | XMS_ITS | Encounter Summary ---
:1950 Author Organization [facility] Address [address] [place] [address] Care Team Providers Name Role Phone Sebastian Griffiths MD Primary Care Provider Reason for Visit Reason Onset Date Comments Med Refill Med Refill 10/28/2019 Med Refill 11/01/2019 Encounter Details Date Type Department Care Team Description 10/21/2019 Refill Family Med Sebastian Griffiths, Osteoarthritis of both [address] [facility] knees, [place] [address] osteoarthritis type [phone] [place], [place] [phone] Social History Tobacco Use Types Packs/Day Years [...] or relatives? How often do you attend caodaism or Never 2020 sikh services? Do you belong to any clubs or No 05/18/2020 organizations such as caodaism groups, unions, fraternal or athletic groups, or [...] 01/18/2022 Telemedicine Family Medicine Sebastian Griffiths MD [address] [place], [place] [address] (Wo rk) documented as of this encounter Visit Diagnoses Diagnosis Osteoarthritis of both knees, unspecifie d osteoarthritis type documented in this encounter Additional Health Concerns Infection Onset Date Last Indicated Resolved Time COVID-19 Rule Out 10/27/2019 10/27/2019 10/27/2019 11: 08 PM CDT documented as of this encounter Care Teams Continuous Washer Operator Relationship Specialty Start Date End Date Sebastian Griffiths MD PCP - General 10/24/17 [address] [place], [place] [phone] documented as of this encounter
--- OUTSIDE RECORDS SUMMARY | 2021-12-09 21:29 | XMS_ITS | Encounter Summary ---
:[address] [facility] Address [address] [place] [address] Care Team Providers Name Role Phone Sebastian Griffiths MD Primary Care Provider Reason for Visit Reason Onset Date Comments med refill 10/15/2019 Encounter Details Date Type Department Care Team Description 10/15/2019 Telephone [facility] Med Sebastian Griffiths MD med refill [address] [facility] [address] [place] [address] [place] [address] [phone] (Wo rk) Social History Tobacco Use Types [...] do you attend yazidism or Never 2020 mandaen services? Do you [...] Telephone Encounter - Mili Rivera MA - 10/15/2019 9:50 AM CDT Duplicate request Telephone Encounter - Tamie Stewart - 10/15/2019 9:32 AM CDT oxyCODONE (ROXICODONE) 5 MG immediate release tablet Pt calling for refill for next week documented in this encounter Plan of Treatment Upcoming Encounters Date Type Specialty Care Team Description 01/18/2022 Telemedicine Family Medicine Sebastian Griffiths MD [address] [place], [place] [address] (Wo rk) documented as of this encounter Visit Diagnoses Not on filedocumented in this encounter Additional Health Concerns Infection Onset Date Last Indicated Resolved Time COVID-19 Rule Out 10/27/2019 10/27/2019 10/27/2019 11: 08 PM CDT documented as of this encounter Care Teams Grades 1 Through 5 Teacher Relationship Specialty Start Date End Date Sebastian Griffiths MD PCP - General 10/24/[address] [place] [address] [phone] documented as of this encounter
--- OUTSIDE RECORDS SUMMARY | 2021-12-09 21:29 | XMS_ITS | Encounter Summary ---
:1950 Author Organization [facility] Address [address] [place] [address] Care Team Providers Name Role Phone Sebastian Griffiths MD Primary Care Provider Reason for Visit Reason Comments Med Refill Encounter Details Date Type Department Care Team Description 10/15/2019 Refill SE Family Med Sebastian Griffiths MD Chronic pain syndrome [address] [facility] [address] [place] [address] [place] [address] [phone] (Wo rk) Social History Tobacco Use Types [...] or relatives? How often do you attend hoahaoism or Never 2020 christian services? Do you belong to any clubs or No 05/18/2020 organizations such as hoahaoism groups, unions, fraternal or athletic groups, or [...] Encounter - Mili Rivera MA - 10/15/2019 9:53 AM CDT Oxycodone 5 mg, 42 tablet, 0 refill done on 10/07/19 for a 14 day supply. Pending script with fill date 10/21/19 Last telemedicine visit on 07/08/19 documented in this encounter Plan of Treatment Upcoming Encounters Date Type Specialty Care Team Description 01/18/2022 Telemedicine Family Medicine Sebastian Griffiths MD [address] [place], [place] [address] (Wo rk) documented as of this encounter Visit Diagnoses Diagnosis Chronic pain syndrome documented in this encounter Care Teams Ply Splicer Relationship Specialty Start Date End Date Sebastian Griffiths MD PCP - General 10/24/[address] [place] [address] [phone] documented as of this encounter
--- OUTSIDE RECORDS SUMMARY | 2021-12-09 21:29 | XMS_ITS | Encounter Summary ---
:1950 Author Organization [facility] Address [address] [place] [address] Care Team Providers Name Role Phone Sebastian Griffiths MD Primary Care Provider Encounter Details Date Type Department Care Team Description 10/21/2019 Lab SE Lab Preop examination; 210 9 [facility] Controlled type 2 diabetes m ellitus without complication, without long-term current use of insulin ([facility]) [place], [place] [id number] Social History Tobacco Use Types Packs/Day Years [...] do you attend congregational or Never 2020 congregation services? Do you [...] 01/18/2022 Telemedicine Family Medicine Sebastian Griffiths MD [address] [place] [address]04 (Wo rk) documented as of this encounter Procedures Procedure Name Priority Date/Time Associated Diagnosis Comme nts MICROALBUMIN/CREATIN Routine 10/21/2019 1:33 PM Controlled typ e 2 Results for this INE RATIO CDT diabetes mellitus procedure are in without the results complication, section. without long-term current use of insulin (HCC) GLOMERULAR Routine 10/21/2019 1:24 PM Controlled type 2 Resu lts for this FILTRATION RATE CDT diabetes mellitus procedu re are in without the results complication, section. without long-term current use of insulin ([facility]) HEMOGLOBIN A1C Routine 10/21/2019 1:24 PM Preop examination Re sults for this CDT procedure are i n the results section. HEPATIC FUNCTION Routine 10/21/2019 1:24 PM Preop examination Results for this PANEL CDT procedure are i n the results section. LIPID PANEL Routine 10/21/2019 1:24 PM Controlled type 2 Resu lts for this CDT diabetes mellitus procedure are in without the results complication, section. without long-term current use of insulin ([facility]) BASIC METABOLIC Routine 10/21/2019 1:24 PM Controlled type 2 R esults for this PANEL CDT diabetes mellitus procedure are in without the results complication, section. without long-term current use of insulin ([facility]) documented in this encounter Results (ABNORMAL) Microalbumin/Creatinine Ratio (10/21/2019 1:33 PM CDT) Analysis Performed At Patho logist Time Signature Microalbumin,m 54.0 (H) 0.0 - 16.6 10/21/2019 [place] g/day mg/L 4:48 PM [facility] Comment: . Creatinine, Urine 297 mg/dL 10/21/2019 4:[address] [facility] Comment: No established reference range. Microalb/Creat Ratio 18 0 - 24 mg/g 10/21/2019 4:[address] [facility] Specimen Anatomical Collection Method Collection Time Receive d Time (Source) Location / / Volume Laterality Urine 10/21/2019 1:33 PM 0 4:18 CDT PM CDT Sebastian Griffiths MD LAB URINE ORDERABLES Performing Organization Address City/State/ZIP Code Phon e Number [facility] [address] [place] [phone] Glomerular filtration rate (GFR) (10/21/2019 1:24 PM CDT) P athologist Signature GFR >60 10/21/2019 [facility] 4:40 PM T [facility] >60 10/21/2019 [facility] [place] GFR 4:40 PM [facility] Comment: GFR calculated from serum creatinine v alue Chronic Kidney Disease less than 60 mL/m in/1.73 m2 Kidney Failure less than 15 mL/min/1.73 m2 Note: effective 08/02/06 IDMS-Traceable MDRD Study Equation used. Specimen Anatomical Collection Method Collection Time Receive d Time (Source) Location / / Volume Laterality 10/21/2019 1:24 PM 0 1:24 CDT PM CDT Sebastian Griffiths MD LAB BLOOD ORDERABLES Performing Organization Address City/State/ZIP Code Phon e Number [facility] [address] [place] [address] (ABNORMAL) Basic metabolic panel (10/21/2019 1:24 PM CDT) Analysis Performed At Patho logist Time Signature Sodium 136 135 - 145 10/21/2019 [place] mEq/L 4:[address] [facility] Potassium 3.6 3.5 - 5.1 10/21/2019 [place] mEq/L 4:40 PM [facility] Chloride 100 98 - 107 10/21/2019 [place] mEq/L 4:40 PM [facility] CO2 28 22 - 29 10/21/2019 [place] mmol/L 4:40 PM [facility] Creatinine 0.7 0.4 - 1.2 10/21/2019 [place] mg/dL 4:40 PM [facility] BUN 15 5 - 25 10/21/2019 [place] mg/dL 4:40 PM [facility] Glucose 130 (H) 70 - 100 10/21/2019 [place] mg/dL 4:40 PM [facility] Calcium, 9.9 8.4 - 10.2 10/21/2019 [place] Total,S mg/dL 4:40 PM [facility] Specimen Anatomical Collection Method Collection Time Receive d Time (Source) Location / / Volume Laterality Blood 10/21/2019 1:24 PM 08/03/202 0 4:19 CDT PM CDT Sebastian Griffiths MD LAB BLOOD ORDERABLES Performing Organization Address City/State/ZIP Code Phon e Number [facility] [address] [place] [address] (ABNORMAL) Lipid panel (10/21/2019 1:24 PM CDT) athologist Signature Cholesterol 198 0 - 199 10/21/2019 [facility] mg/dL 4:40 PM CDT [facility] Comment: Recommended by National Cholesterol Education Program (ATP III) -------- Cholesterol Ranges -------- <200 ?Desirable 200-239 ? Borderline high >=240 ? High Triglycerides 233 (H) 0 - 149 mg/dL 10/21/2019 4:[address] [facility] Comment: -------- TRIG Ranges -------- <150 ?Normal 150-199 ? Borderline high 200-499 ? High >=500 ? Very high HDL 63 40 - 250 mg/dL 10/21/2019 4:40 PM CDT [facility] Comment: -------- HDL Ranges -------- <40 ?Low 40-59 ?Normal >=60 ? Optimal LDL Calculated 88 0 - 99 mg/dL 10/21/2019 4:[address] [facility] Comment: -------- LDL Ranges -------- <100 ? Optimal 100-129 ?Near optimal/above op timal 130-159 ?Borderline high 160-189 ?High >=190 ?Very high Fasting? Yes 10/21/2019 1:[address] [facility] Specimen Anatomical Collection Method Collection Time Receive d Time (Source) Location / / Volume Laterality Blood 10/21/2019 1:24 PM 0 4:19 CDT PM CDT Sebastian Griffiths MD LAB BLOOD ORDERABLES Performing Organization Address [facility] Code Phon e Number [facility] [address] [place] [phone] (ABNORMAL) Hemoglobin A1c (10/21/2019 1:24 PM CDT) Analysis Performed At [facility] Signature Hemoglobin A1C 6.3 (H) 4.0 - 5.6 10/21/2019 [place] % A1C 4:48 PM T [facility] Comment: Reference Range 4.0-5.6% [...] MD LAB BLOOD ORDERABLES Performing Organization Address City/[facility] Code Phon e Number [facility] [address] [place] [address] (ABNORMAL) Liver panel (10/21/2019 1:24 PM CDT) Analysis Performed At [facility] Signature Total Protein 7.9 6.3 - 8.2 10/21/2019 [place] g/dL 4:40 PM CDT [facility] Albumin, Serum 4.4 3.5 - 5.0 10/21/2019 [place] g/dL 4:40 PM CDT [facility] Total Bilirubin 1.0 0.1 - 1.0 10/21/2019 [place] mg/dL 4:40 PM CDT [facility] Bilirubin, <0.1 0.0 - 0.3 10/21/2019 [place] Direct mg/dL 4:40 PM [facility] AST 53 (H) 8 - 43 U/L 10/21/2019 [place] 4:40 PM [facility] Alkaline 84 38 - 128 10/21/2019 [place] Phosphatase U/L 4:40 PM [facility] ALT (SGPT) 45 (H) 0 - 34 U/L 10/21/2019 [place] 4:40 PM [facility] Specimen Anatomical Collection Method Collection Time Receive d Time (Source) Location / / Volume Laterality Blood (Blood, 10/21/2019 1:24 PM 10/21/19 20 4:19 Venous) CDT PM CDT Regan Velásquez MD LAB BLOOD ORDERABLES Performing Organization Address City/State/ZIP Code Phon e Number [facility] [address] [place] [address] documented in this encounter Visit Diagnoses Diagnosis Preop examination Unspecified pre-operative examination Controlled type 2 diabetes mellitus with out complication, without long-term current use of insulin (HCC) documented in this encounter Care Teams Bass String Winder Relationship Specialty Start Date End Date Sebastian Griffiths MD PCP - General 10/24/[address] [place], [place] [phone] documented as of this encounter
--- OUTSIDE RECORDS SUMMARY | 2021-12-09 21:29 | XMS_ITS | Encounter Summary ---
:1950 Author Organization [facility] Address [address] [place] [address] Care Team Providers Name Role Phone Sebastian Griffiths MD Primary Care Provider Reason for Visit Reason Comments Med Refill Encounter Details Date Type Department Care Team Description 10/02/2019 Refill SE Family Med Sebastian Griffiths MD Generalized anxiety [address] [facility] [address] [place] [address] [place] [address] [phone] (Wo rk) Social History Tobacco Use Types [...] do you attend taoist or Never 2020 church services? Do you [...] Telephone Encounter - Candice Werner LPN - 10/07/2019 9:20 AM CDT Last visit in provider department: 07/08/2019 Last visit requested medication was discussed: 06/18/2019 Upcoming appointment with provider: 10/21/2019 Last Rx: #90, 1 refill 08/14/2019 Requested Prescriptions Pending Prescriptions Disp Refills ??? LORazepam (ATIVAN) 1 MG tablet [Pharmacy Med Name: LORAZEPAM 1MG TABS] 90 tablet 1 Sig: TAKE ONE TABLET BY MOUTH THREE TIMES A DAY Most Recent Value 04/11/2019 - 10/08/2019 SUMI-7 Total Score 19 05/14/2019 documented in this encounter Plan of Treatment Upcoming Encounters Date Type Specialty Care Team Description 01/18/2022 Telemedicine Family Medicine Sebastian Griffiths MD [address] [place], [place] [address] (Wo rk) documented as of this encounter Visit Diagnoses Diagnosis Generalized anxiety disorder documented in this encounter Care Teams Jammer Operator Relationship Specialty Start Date End Date Sebastian Griffiths MD PCP - General 10/24/17 [address] [place] [address] documented as of this encounter
--- OUTSIDE RECORDS SUMMARY | 2021-12-09 21:29 | XMS_ITS | Encounter Summary ---
:1950 Author Organization [facility] Address [address] [place] [address] Care Team Providers Name Role Phone Sebastian Griffiths MD Primary Care Provider Reason for Visit Reason Onset Date Comments Med Refill Med Refill 10/15/2019 Med Refill 10/28/2019 Encounter Details Date Type Department Care Team Description 10/07/2019 Refill Family Med Sebastian Griffiths, Osteoarthritis of both [address] [facility] knees, [place] [address] osteoarthritis type [phone] [place], [place] [id number] Social History Tobacco Use Types Packs/Day Years [...] or relatives? How often do you attend buddhism or Never 2020 catholic services? Do you belong to any clubs or No 05/18/2020 organizations such as buddhism groups, unions, fraternal or athletic groups, or [...] Telephone Encounter - Guillermina Moran MA - 10/10/2019 8:20 AM CDT Requested Prescriptions Pending Prescriptions Disp Refills ??? ACETAMINOPHEN EXTRA STRENGTH 500 MG tablet [Pharmacy Med Name: ACETAMINOPHEN 500MG TABS] 100 tablet 11 Sig: TAKE TWO TABLETS BY MOUTH THREE TIMES A DAY NEEDED FOR PAIN Class: Normal E-Prescribing Status: Receipt confirmed by pharmacy (09/09/2019 12:58 PM CDT) documented in this encounter Plan of Treatment Upcoming Encounters Date Type Specialty Care Team Description 01/18/2022 Telemedicine Family Medicine Sebastian Griffiths MD [address] [place], [place] [address] (Wo rk) documented as of this encounter Visit Diagnoses Diagnosis Osteoarthritis of both knees, unspecifie d osteoarthritis type documented in this encounter Additional Health Concerns Infection Onset Date Last Indicated Resolved Time COVID-19 Rule Out 10/27/2019 10/27/2019 10/27/2019 11: 08 PM CDT documented as of this encounter Care Teams Fire Officer Relationship Specialty Start Date End Date Sebastian Griffiths MD PCP - General 10/24/17 [address] [place], [place] [phone] documented as of this encounter
--- OUTSIDE RECORDS SUMMARY | 2021-12-09 21:29 | XMS_ITS | Encounter Summary ---
:1950 Author Organization [facility] Address [address] [place] [address] Care Team Providers Name Role Phone Sebastian Griffiths MD Primary Care Provider Encounter Details Date Type Department Care Team Description 10/30/2019 Travel Social History Tobacco Use Types Packs/Day [...] do you attend zoroastrian or Never 2020 mandaeism services? Do you [...] 01/18/2022 Telemedicine Family Medicine Sebastian Griffiths MD [address] [place], [place] [address] (Wo rk) documented as of this encounter Visit Diagnoses Not on filedocumented in this encounter Care Teams Medical Authorization Specialist Relationship Specialty Start Date End Date Sebastian Griffiths MD PCP - General 10/24/17 [address] [place] [address] documented as of this encounter
--- OUTSIDE RECORDS SUMMARY | 2021-12-09 21:30 | XMS_ITS | Encounter Summary ---
:1950 Author Organization [facility] Address [address] [place] [address] Care Team Providers Name Role Phone Sebastian Griffiths MD Primary Care Provider Reason for Visit Reason Comments Med Refill Encounter Details Date Type Department Care Team Description 08/20/2019 Refill SE Family Med Sebastian Griffiths MD Chronic pain syndrome [address] [facility] [address] [place] [address] [place] [address] [phone] (Wo rk) Social History Tobacco Use Types [...] or relatives? How often do you attend religious or Never 2020 buddhist services? Do you belong to any clubs or No 05/18/2020 organizations such as religious groups, unions, fraternal or athletic groups, or [...] Telephone Encounter - Yanna Cheng LPN - 08/20/2019 8:56 AM CDT Last appointment was telemedicine on 07/08/19. Next appointment scheduled for 10/21/19. Rx last given on 08/12/19 for #42 and no refills. Telephone Encounter - Orlinsudhakar Vianca - 08/20/2019 8:54 AM CDT Patient call to follow up on this medication. Please advise. documented in this encounter Plan of Treatment Upcoming Encounters Date Type Specialty Care Team Description 01/18/2022 Telemedicine Family Medicine Sebastian Griffiths MD [address] [place], [place] [address] (Wo rk) documented as of this encounter Visit Diagnoses Diagnosis Chronic pain syndrome documented in this encounter Care Teams Solution Lead Relationship Specialty Start Date End Date Sebastian Griffiths MD PCP - General 10/24/[address] [place] [id number] documented as of this encounter
--- OUTSIDE RECORDS SUMMARY | 2021-12-09 21:30 | XMS_ITS | Encounter Summary ---
:1950 Author Organization [facility] Address [address] [place] [address] Care Team Providers Name Role Phone Sebastian Griffitsh MD Primary Care Provider Reason for Visit Reason Comments Shoulder Pain Right - 12/27 Encounter Details Date Type Department Care Team Description 08/27/2019 Telemedicine [facility] Regan Velásquez, History o f total bilateral knee replacement (Primary Dx); Orthopedics Rotator cuff impingement syndrome of rig ht shoulder [address] [place] [address] [place] [phone] Social History Tobacco Use Types Packs/Day Years [...] do you attend presybeterian or Never 2020 worship services? Do you [...] Pressure - - Pulse - - Temperature - - Respiratory Rate - - Oxygen Saturation - - Inhaled Oxygen Concentration - - Weight 104 kg (229 lb 4.5 oz) 08/27/2019 11:05 AM CDT Height 165.1 cm (5' 5) 08/27/2019 11:05 AM CDT Body Mass Index 38.15 08/27/2019 11:05 AM CDT documented in this encounter Progress Notes Regan Velásquez MD - 08/27/2019 11:00 AM CDT Telephone Visit Patient has consented to this orthopedic consult held by telephone. The patient is on the phone today with only themselves. Chief complaint Right shoulder pain Subjective 69-year-old female calls in today with several months of severe shoulder pain. She calls in for an orthopedic office telephone appointment. She has a history of a right rotator cuff tear repair in her past. No known precipitating injury or cause for her current pain flare. Her shoulder hurts enough where she cannot lift her arm. She denies fevers or chills. She had injured 1 of her knees, but this has improved itself. She does not feel that her knee needs any further evaluation. Objective Exam: Psych: Patient is conversant and pleasant over the phone. She endorses euthymic mood and is in no acute distress. Rest of exam unable to be completed due to phone interview. RESULTS REVIEWED TODAY: X-rays dated 03/27/2018 right shoulder images and report reviewed. Reasonably maintained glenohumeral and acromiohumeral spaces. No lytic lesions or acute injury patterns. Assessment: Encounter Diagnoses Name Primary? History of total bilateral knee replacement Yes ??? Rotator cuff impingement syndrome of right shoulder Plan Based on her most recent x-rays, and based on the description of her symptoms by telephone, I cannotdefinitively give her an answer as to why her shoulder is so severely painful. From the telephone office visit, her complaints are most consistent with a rotator cuff pain source. She is worried that she has re-torn her rotator cuff repair from her remote past. We discussed different alternatives suchas PT and cortisone injections to help with pain; she refused these options, as they have been triedin the past without any success. After our discussion, she wants to proceed with an MRI scan. I think this is warranted, based upon her severe pain and history, to evaluate her shoulder anatomically for potential surgical indications. She will be called within the next 1-2 days to set up the MRI order. Follow up: After the MRI. The patient has consented to be consulted [...] Time spent during this phone call was 11 minutes. documented in this encounter Plan of Treatment Upcoming Encounters Date Type Specialty Care Team Description 01/18/2022 Telemedicine Family Medicine Sebastian Griffiths MD [address] [place], [place] [address] (Wo rk) documented as of this encounter Visit Diagnoses Diagnosis History of total bilateral knee replacem ent - Primary Rotator cuff impingement syndrome of rig ht shoulder documented in this encounter Care Teams Investment Accounting Clerk Relationship Specialty Start Date End Date Sebastian Griffiths MD PCP - General 10/24/[address] [place] [id number] documented as of this encounter
--- OUTSIDE RECORDS SUMMARY | 2021-12-09 21:30 | XMS_ITS | Encounter Summary ---
:1950 Author Organization [facility] Address [address] [place] [address] Care Team Providers Name Role Phone Sebastian Griffiths MD Primary Care Provider Reason for Visit Reason Comments Med Refill Encounter Details Date Type Department Care Team Description 08/05/2019 Refill SE Internal Medicine Sebastian Griffiths MD Chronic pain syndrome [address] [facility] [address] [place] [address] [place] [address] [phone] (Wo rk) Social History Tobacco Use Types [...] do you attend synagogue or Never 2020 worship services? Do you [...] Telephone Encounter - Mili Rivera MA - 08/05/2019 11:45 AM CDT Duplicate request documented in this encounter Plan of Treatment Upcoming Encounters Date Type Specialty Care Team Description 01/18/2022 Telemedicine Family Medicine Sebastian Griffiths MD [address] [place], [place] [address] (Wo rk) documented as of this encounter Visit Diagnoses Diagnosis Chronic pain syndrome documented in this encounter Additional Health Concerns Infection Onset Date Last Indicated Resolved Time COVID-19 Rule Out 10/27/2019 10/27/2019 10/27/2019 11: 08 PM CDT documented as of this encounter Care Teams Size Worker Relationship Specialty Start Date End Date Sebastian Griffiths MD PCP - General 10/24/17 [address] [place] [address] documented as of this encounter
--- OUTSIDE RECORDS SUMMARY | 2021-12-09 21:30 | XMS_ITS | Encounter Summary ---
:1950 Author Organization [facility] Address [address] [place] [phone] Care Team Providers Name Role Phone Sebastian Griffiths MD Primary Care Provider Reason for Visit Consultation (Routine) - Closed Specialty Diagnoses / Procedures Referred By Referred To Contact Contact Physical Therapy / Diagnoses Primary osteoarthritis of both knees Sebastian Griffiths, Rehabilitation [address] [place] [phone] Referral ID Status Reason Start Date Expiration Date Visits V isits Requested Authorized [id number] Closed Specialty 04/18/2019 03/19/2020 99 99 Services Required Encounter Details Date Type Department Care Team Description 07/10/2019 Evaluation [facility] Sebastian Griffiths MD [address] [place] [address] [phone] Difficulty in walking (Primary Dx); Services Emily Pereira, DPT [address] [facility] [place] [address] Chronic obstructive pulmonary disease, u nspecified COPD type (HCC) [address] [place] [address] Social History Tobacco Use Types [...] do you attend sikhism or Never 2020 sikhism services? Do you [...] as of this encounter Patient Instructions Patient InstructionsEmily Pereira DPT - 07/10/2019 1:30 PM CDT Dionicio hayes [employer] will be giving you a call to set up a home visit and trial of a scooter. Dionicio Mcclure, ATP, OUTBOUND TELEMARKETER Assistive Exhibit Display Representative Direct: [phone] Your [facility] appointment is on July 31, 2019-please call [facility] to confirm time and locationof this appointment. documented in this encounter Progress Notes Emily Pereira DPT - 07/10/2019 1:30 PM CDT PHYSICAL THERAPY WHEELCHAIR/MOBILITY EVALUATION 07/10/2019 REFERRING CLINICIAN: Dr. Griffiths REFERRING DIAGNOSIS: Encounter Diagnoses Name Primary? Difficulty in walking Yes ??? Chronic obstructive pulmonary disease, unspecified COPD type (HCC) TREATING DIAGNOSIS: Encounter Diagnoses Name Primary? Difficulty in walking Yes ??? Chronic obstructive pulmonary disease, unspecified COPD type (HCC) INSURANCE TYPE: [place] ONSET DATE: Chronic NUMBER OF VISITS APPROVED: N/A VENDOR: [facility] Medical CERTIFICATION PERIOD: 07/10/2019-09/23/2019 SUBJECTIVE: REASON FOR REFERRAL: The patient presents to physical therapy today with referral for mobility evaluation for potential acquisition of power operated scooter in light of hospital comorbidities limitingoverall endurance and ability to ambulate any distance without significant increased pain or difficulty with breathing. HISTORY: Patient presents to physical therapy today for scooter evaluation. She does have history significant for COPD, multiple orthopedic issues including chronic left-sided rib fractures, old right shoulder injury, left knee injury, history of periprosthetic fracture around internal prosthetic right knee joint, type 2 diabetes. Her periprosthetic fracture occurred 05/15/2019 and was hospitalized and treated at the [facility] for this issue from 05/15/2019 through 05/22/2019, discharged to half-way and finally home following this incident. Has had about 4 falls within the past year within her home where her leg gave out on her, one recently outside slipping on the ice. CURRENT EQUIPMENT: The patient currently owns and utilizes a 4 wheeled walker and single point cane,notes falling with the 4 wheeled walker. CURRENT FUNCTIONAL LIMITATIONS: Significant difficulty with gait HOME ENVIRONMENT: Patient does live alone, single story accessible building, does have assist from her son for grocery shopping and driving. Is responsible for cooking, cleaning her own home. LEVEL OF ASSISTANCE: Patient does receive home health services for home health aide which involves medication assist. PERTINENT PAST MEDICAL HISTORY: Past Medical History: Diagnosis Date ??? Acid [...] ??? Major depressive disorder, recurrent episode, moderate ([facility]) ??? Migraine ??? Type 2 diabetes mellitus, controlled ([facility]) MEDICATIONS: These were reviewed in IC chart, please see IC chart for further details ALLERGIES: Patient denies allergies to metals, plastics, adhesives, latex OBJECTIVE: OBSERVATION2: Vitals: Restin% O2, 88-91 BPM With activity: up to 107 BPM and down to 92% with timed up and go, stabilized to baseline RANGE OF MOTION: UPPER EXTREMITIES: .within functional limits except shoulder flexion, limited to 90 degrees anti-gravity LOWER EXTREMITIES: Within functional limits but pain with right knee range of motion due to periprosthetic fracture STRENGTH: UPPER EXTREMITIES: 5- to 5 out of 5 with all upper extremity movements except for bilateral shoulderflexion which is limited due to limited range of motion. However at 90 degrees shoulder flexion patient does demonstrate adequate strength bilaterally without pain. LOWER EXTREMITIES: Left lower extremity is 5- out of 5 with hip flexion and extension, 4+ out of 5 with knee extension and flexion. Right lower extremity is at least 3 out of 5 for hip flexion and extension and knee flexion and extension however significantly limited and not tested formally today due to periprosthetic fracture on right knee which is being addressed in the future with orthopedic appointments. GAIT AND BALANCE: OUTCOME TOOLS: Timed Up and Go: Timed Up and Go: 38.25(with 4 wheeled walker) Timed Up and Go - Manual: 45.47(with single point cane) Patient's vitals changed as listed above, with approximately 20 bpm increased heart rate with the simple test today requiring greater than 2 minutes to return to baseline. Scores 13.5 seconds or higher indicate increased risk for falls in community dwelling adults. -For patients with Parkinson???s disease 11.5 seconds or higher indicate increased risk for falls and Minimal Detectable Change is 4 seconds. -For patients with Vestibular disorders 11.1 seconds or higher indicate increased risk for falls. Push test: Not performed today due to periprosthetic fracture and risk of further injury and discomfort for the patient as well as notable vital change with minimal activity is seen in the timed up andgo test today. TREATMENT: Wheelchair management and training: Patient was educated on normal expectations for timeframe for equipment acquisition, potential home visit from vendor, potential for denial of request, and recommended follow-up if necessary after acquisition of new equipment if further education was warranted. Total time: 5 minutes ASSESSMENT: The patient presents to physical therapy today for evaluation to determine appropriate assistive device for increasing independence with functional activities including ADLs and IADLs, transfers, mobilization around their home. They have history significant for COPD, multiple significant or thopedic issues including chronic rib fractures, shoulder pain, left knee pain, right knee pain withperiprosthetic fracture, type 2 diabetes, history significant for falls. Patient would not be appropriate for utilization of a walker, single-point cane, crutches due to history significant for multiple falls within the past year with the above listed devices as well as significant limitations in terms of shoulder pain, right knee periprosthetic fracture, chronic pain syndrome, COPD with significant increase in vitals with simple activity such as timed up and go test. Shows from timed up and go test scores that she is at a very high risk for falls due to testing time. Patient would not be appropriate for utilization of manual wheelchair due to presence of past medical history as listed above with periprosthetic fracture being most predominant issue but also chronic rib fractures that would limit patient's ability to perform trunk flexion and extension appropriatelyand safely without pain. Patient would not be able to effectively and safely propel manual wheelchair without significant increase in vitals, and/or significant increase in pain and potential orthopedic trauma. Patient would be appropriate for utilization of 3 wheeled scooter within her home for safer performance of ADLs and IADLs such as cooking and cleaning. Patient is fallen several times within her own home when using walker and a cane and would be able to sit and utilize her scooter for cooking and cleaning activities and hence have a more safe position for performance of these activities. She would also be able to conserve her energy and decreased risk of significant vital change with simple activities that involve standing or sit to stand transfer. Today patient does demonstrate very slow but safe technique with sit to stand transfer however significant vital change with these and very short distance or limited gait even with assistive devices. She demonstrates appropriate arm strength to be ableto operate the tiller for navigating the scooter around her home. Would benefit orthopedically, cardiovascularly, and with fall prevention with utilization of scooter for in-home activities. SHORT TERM GOALS: To be accomplished in 30 days. 1. Patient will be able to undergo home evaluation for appropriate analyzation of home space in light of recommended equipment. 2. Patient will be able to verbalize their current need for mobility devices and safety and demonstrate understanding of the ways the recommended equipment will assist in increasing independence. LONG-TERM GOALS: To be accomplished within 90 days. 1. Patient will be able to demonstrate appropriate utilization of recommended mobility equipment. 2. Patient will demonstrate increased independence with ADLs and IADLs with utilization of newly acquired equipment. PLAN: Patient will follow-up as needed and physical therapy for further training regarding recommended equipment. Patient will also follow-up with vendor Regarding home visit and trial of recommended equipment. MODALITIES AND TREATMENTS: Wheelchair management and training, functional training FREQUENCY AND DURATION: The patient will return as needed for further education on utilization of recommended equipment. If not heard from in 60 days will consider the patient discharged from skilled physical therapy services. IMPAIRMENTS: Chronic pain syndrome, multiple orthopedic issues with history of chronic left rib fractures, right knee periprosthetic fracture, decreased balance, COPD FUNCTIONAL LIMITATIONS: Difficulty with gait, difficulty with transfers, difficulty with stairs DISABILITY: Inability to fully perform ADLs and IADLs without increasing presence of significant pain, risking falls, or becoming out of breath BARRIERS TO REHABILITATION: Significant past medical history, please see above REHABILITATION POTENTIAL: Poor to fair due to barriers TREATMENT TIME: Initial evaluation, high complexity: 45 minutes Wheelchair management and trainin minutes TOTAL TIME: 50 minutes This note is signed by Emily Pereira DPT. By co-signing this document, the provider concurs with the therapist???s assessment and agrees with the equipment recommendations below. The co-sign date of this document may be considered the completion of the [id number] evaluation.?? documented in this encounter Plan of Treatment Upcoming Encounters Date Type Specialty Care Team Description 01/18/2022 Telemedicine Family Medicine Sebastian Griffiths MD [address] [place] [address] [phone] (Wo rk) Scheduled Referrals Name Type Priority Associated Diagnoses Order S chedule Ambulatory referral Outpatient Referral Routine Primary osteoa rthritis Ordered: to Physical Therapy of both knees 020 documented as of this encounter Visit Diagnoses Diagnosis Difficulty in walking - Primary Chronic obstructive pulmonary disease, u nspecified COPD type (HCC) documented in this encounter Care Teams Sterile Tech Relationship Specialty Start Date End Date Sebastian Griffiths MD PCP - General 10/24/[address] [place] [phone] documented as of this encounter
--- OUTSIDE RECORDS SUMMARY | 2021-12-09 21:30 | XMS_ITS | Encounter Summary ---
:[address] [facility] Address [address] [place] [address] Care Team Providers Name Role Phone Sebastian Griffiths MD Primary Care Provider Reason for Visit Reason Onset Date Comments Med PA 08/27/2019 insulin glargine (Ba saglar KwikPen) 100 UNIT/ML injection Encounter Details Date Type Department Care Team Description 08/27/2019 Telephone SE Family Med Sebastian Griffiths, Med PA (insulin [address] glargine (Basaglar [place], [place] [id number] [place] [address] Avenue KwikPen) 100 UNIT/ML [phone] SE injection) [place], [place] [id number] Social History Tobacco Use Types Packs/Day Years [...] do you attend mosque or Never 2020 restorationism services? Do you belong to any clubs [...] Telephone Encounter - Amanda Parkinson RN - 08/29/2019 8:29 AM CDT Patient was informed of change in insulin due to insurance preference. Telephone Encounter - Sebastian Griffiths MD - 08/27/2019 7:13 PM CDT Done. Telephone Encounter - Magdalena Meadows LPN - 08/27/2019 2:47 PM CDT Per Insurance fax, this has been denied as preferred drugs have not been met. You must try two otheralternatives before requested drug such as, Toujeo Max and Toujeo Solostar, Lantus Solostar, Levemir, Levemir flextouch Appeals information: [facility] Appeals and Grievances Department [address], [address] [place] [address] Fax: Telephone Encounter - Magdalena Meadows LPN - 08/27/2019 11:22 AM CDT insulin glargine (Basaglar KwikPen) 100 UNIT/ML injection PA completed per CMM, sent to insurance plan Scott: [id number] [facility] BIN: [id number] PCN: [id number] ID: [id number] documented in this encounter Plan of Treatment Upcoming Encounters Date Type Specialty Care Team Description 01/18/2022 Telemedicine Family Medicine Sebastian Griffiths MD [address] [place] [address] [phone] (Wo rk) documented as of this encounter Visit Diagnoses Diagnosis Type II diabetes mellitus with periphera l circulatory disorder (HCC) - Primary Type II or unspecified type diabetes giuseppe litus with peripheral circulatory disorders, not stated as uncontrolled documented in this encounter Care Teams Gear Repair Supervisor Relationship Specialty Start Date End Date Sebastian Griffiths MD PCP - General 10/24/[address] [place] [phone] documented as of this encounter
--- OUTSIDE RECORDS SUMMARY | 2021-12-09 21:30 | XMS_ITS | Encounter Summary ---
:1950 Author Organization [facility] Address [address] [place] [address] Care Team Providers Name Role Phone Sebastian Griffiths MD Primary Care Provider Reason for Visit Reason Comments Right Knee Encounter Details Date Type Department Care Team Description 07/08/2019 Telemedicine [facility] Sebastian Griffiths, Periprosthetic fracture arou nd internal prosthetic right knee joint, sequela (Primary Dx); [address] [facility] Controlled type 2 diabetes mellitus with out complication, without long-term current use of insulin (HCC); [place] [address] Chronic pain syndrome [phone] [place] [address] Social History Tobacco Use Types [...] do you attend denominational or Never 2020 cheondoism services? Do you [...] as of this encounter Patient Instructions Patient InstructionsMaddie Dubon LPN - 07/08/2019 4:20 PM CDT We understand your concern regarding COVID-19 (Coronavirus). The recommendation is to wash your hands often with soap and water for at least 20 seconds, if soap and water are unavailable, please use alcohol-based hand pattern mechanic. Cover your coughs and sneezes with a [...] a mask, if you have one available. documented in this encounter Progress Notes Sebastian Griffiths MD - 07/08/2019 4:20 PM CDT Telephone Visit Subjective Patient ID: Rena Fan is a 69 y.o. female patient of Sebastian Griffiths MD, who is called on the phone from [facility] to discuss Patient is on the phone today with patient. HPI The knee is not getting better. She states it is hurting down the outside. No more swelling or redness. She also feels that her oxycodone 5 mg still make it 8 hours unless she takes 2 more Tylenols. She is using her topical Voltaren and gabapentin. Her blood sugars have been averaging 147. She is due for diabetic labs to be done. Her highest bloodsugar was 300. The following portions of the patient's chart were reviewed in this encounter and updated as appropriate: Tobacco Allergies Meds Problems Med Hx Surg Hx Fam Hx Soc Hx Health Maintenance Due Topic Date Due ??? [facility] Annual Wellness 01/01/1970 ??? Diabetic Foot Exam 03/27/2019 ??? Glaucoma Screening 67+ Yr 06/15/2019 ??? Urine Protein Screening 06/27/2019 Review of Systems HEENT, Eyes, respiratory, cardio, GI, genitourinary, endocrine, musculoskeletal, neurologic and psychiatric history were reviewed and negative except as per HPI. No fevers or chills. Denies any numbness or tingling. Denies any open skin sores. Objective RESULTS REVIEWED TODAY: None. EXAM: Psych: [...] right shoulder injury, left knee inury, cervical HAMMER ADJUSTER reviewed 05/14/2019 Relevant Medications oxyCODONE (ROXICODONE) 5 MG immediate release tablet (Start on 07/18/2019) Periprosthetic fracture around internal prosthetic right knee joint - Primary Type 2 diabetes mellitus, controlled (HCC) Relevant Orders Basic metabolic panel Hemoglobin A1c Lipid panel Microalbumin/Creatinine Ratio I would not change her overall oxycodone dose except that I will extend it to 14 days instead of 10.I postdated prescription to begin on July 17. Lab orders are made and she will try to come in to get those done. It has been 1 year. Recheck appointment with me in 3 months. I encouraged her to call her [facility] clinician following the knee to see if anything needs to be done before the scheduled May recheck x-ray. Return in about 3 months (around 10/07/2019) for Recheck back pain. The patient has consented to be consulted [...] Time spent during this phone call was 13 minutes. documented in this encounter Plan of Treatment Upcoming Encounters Date Type Specialty Care Team Description 01/18/2022 Telemedicine Family Medicine Sebastian Griffiths MD [address] [place] [address] 90 (Wo rk) documented as of this encounter Results (ABNORMAL) Microalbumin/Creatinine Ratio (10/21/2019 1:33 PM CDT) Analysis Performed At Patho logist Time Signature Microalbumin,m 54.0 (H) 0.0 - 16.6 10/21/2019 [facility] g/day mg/L 4:48 PM [facility] Comment: . Creatinine, Urine 297 mg/dL 10/21/2019 4:48 PM CDT [facility] Comment: No established reference range. Microalb/Creat Ratio 18 0 - 24 mg/g 10/21/2019 4:4 8 PM CDT [facility] Specimen Anatomical Collection Method Collection Time Receive d Time (Source) Location / / Volume Laterality Urine 10/21/2019 1:33 PM 0 4:18 CDT PM CDT Sebastian Griffiths MD LAB URINE ORDERABLES Performing Organization Address City/State/ZIP Code Phon e Number [facility] [address] [place] [address] (ABNORMAL) Lipid panel (10/21/2019 1:24 PM CDT) P athologist Signature Cholesterol 198 0 - 199 10/21/2019 [facility] mg/dL 4:[address] [facility] Comment: Recommended by National Cholesterol Education Program (ATP III) -------- Cholesterol Ranges -------- <200 ?Desirable 200-239 ? Borderline high >=240 ? High Triglycerides 233 (H) 0 - 149 mg/dL 10/21/2019 4:40 PM CDT [facility] Comment: -------- TRIG Ranges -------- <150 ?Normal 150-199 ? Borderline high 200-499 ? High >=500 ? Very high HDL 63 40 - 250 mg/dL 10/21/2019 4:40 PM CDT [facility] Comment: -------- HDL Ranges -------- <40 ?Low 40-59 ?Normal >=60 ? Optimal LDL Calculated 88 0 - 99 mg/dL 10/21/2019 4:40 PM T [facility] Comment: -------- LDL Ranges -------- <100 ? Optimal 100-129 ?Near optimal/above op timal 130-159 ?Borderline high 160-189 ?High >=190 ?Very high Fasting? Yes 10/21/2019 1:24 PM T [facility] Specimen Anatomical Collection Method Collection Time Receive d Time (Source) Location / / Volume Laterality Blood 10/21/2019 1:24 PM 0 4:19 CDT PM CDT Sebastian Griffiths MD LAB BLOOD ORDERABLES Performing Organization Address City/State/ZIP Code Phon e Number [facility] [address] [place] [address] (ABNORMAL) Basic metabolic panel (10/21/2019 1:24 PM CDT) Analysis Performed At Patho logist Time Signature Sodium 136 135 - 145 10/21/2019 [facility] mEq/L 4:40 PM [facility] Potassium 3.6 3.5 - 5.1 10/21/2019 [facility] mEq/L 4:40 PM [facility] Chloride 100 98 - 107 10/21/2019 [facility] mEq/L 4:40 PM [facility] CO2 28 22 - 29 10/21/2019 [facility] mmol/L 4:40 PM [facility] Creatinine 0.7 0.4 - 1.2 10/21/2019 [facility] mg/dL 4:40 PM [facility] BUN 15 5 - 25 10/21/2019 [facility] mg/dL 4:40 PM [facility] Glucose 130 (H) 70 - 100 10/21/2019 [facility] mg/dL 4:40 PM [facility] Calcium, 9.9 8.4 - 10.2 10/21/2019 [facility] Total,S mg/dL 4:40 PM T [facility] Specimen Anatomical Collection Method Collection Time Receive d Time (Source) Location / / Volume Laterality Blood 10/21/2019 1:24 PM 0 4:19 CDT PM CDT Sebastian Griffiths MD LAB BLOOD ORDERABLES Performing Organization Address City/State/ZIP Code Phon e Number [facility] [address] [place] [address] documented in this encounter Visit Diagnoses Diagnosis Periprosthetic fracture around internal prosthetic right knee joint, sequela - Primary Controlled type 2 diabetes mellitus with out complication, without long-term current use of insulin (HCC) Chronic pain syndrome documented in this encounter Care Teams Engine Research Engineer Relationship Specialty Start Date End Date Sebastian Griffiths MD PCP - General 10/24/[address] [place] [phone] documented as of this encounter
--- OUTSIDE RECORDS SUMMARY | 2021-12-09 21:30 | XMS_ITS | Encounter Summary ---
:1950 Author Organization [facility] Address [address] [place] [address] Care Team Providers Name Role Phone Sebastian Griffiths MD Primary Care Provider Reason for Visit Reason Onset Date Comments Order MRI 08/28/2019 Encounter Details Date Type Department Care Team Description 08/28/2019 Telephone [facility] Orthope Regan Barahona MD Order MRI [address] [place] [address] 16[address] [place] [address] [place] [phone] (Wo rk) Social History Tobacco Use Types [...] do you attend episcopalian or Never 2020 sabianist services? Do you [...] Encounter - Jorge Alberto Winston MA - 09/05/2019 1:37 PM CDT Patient called back and left a message, I tried calling her again and she did not answer. A detailedmessage was left outlining what she needs to do prior to her MRI. Patient instructed to call us backagain with how she wants to proceed. Telephone Encounter - Vianca Nina - 09/05/2019 11:40 AM CDT LMTCB - patient needs to either get disc of shoulder x-rays from [facility] or have x- rays done prior to her MRI here at [facility] on 09/10/19 Telephone Encounter - Vianca Nina - 08/28/2019 12:30 PM CDT Called patient to order MRI for right shoulder. Once questions were asked I transferred patient to radiology. I have also sent a staff message to cristi regarding medication for the MRI. I have also senta message to Dr. Griffiths's nurse as the patient says they have the latest shoulder x-rays that were done at [facility]. PSR's can we call patient and have a follow up after MRI scheduled. Mri is scheduled for 09/10/19. documented in this encounter Plan of Treatment Upcoming Encounters Date Type Specialty Care Team Description 01/18/2022 Telemedicine Family Medicine Sebastian Griffiths MD [address] [place], [place] [phone] (Wo rk) documented as of this encounter Visit Diagnoses Not on filedocumented in this encounter Care Teams Craft Recruiter Relationship Specialty Start Date End Date Sebastian Griffiths MD PCP - General 10/24/[address] [place] [phone] documented as of this encounter
--- OUTSIDE RECORDS SUMMARY | 2021-12-09 21:30 | XMS_ITS | Encounter Summary ---
:1950 Author Organization [facility] Address [address] [place] [address] Care Team Providers Name Role Phone Sebastian Griffiths MD Primary Care Provider Reason for Visit Reason Comments Med Refill Encounter Details Date Type Department Care Team Description 08/12/2019 Refill SE Family Med Sebastian Griffiths MD Generalized anxiety [address] [facility] [address] [place] [address] [place] [address] [phone] (Wo rk) Social History Tobacco Use Types [...] do you attend muslim or Never 2020 yazidism services? Do you [...] Telephone Encounter - Candice Werner LPN - 08/14/2019 1:59 PM CDT Last visit in provider department: 07/08/2019 Last visit requested medication was discussed: 06/04/2019 Upcoming appointment with provider: 10/21/2019 Last Rx: #90, 1 refill 06/18/2019 Requested Prescriptions Pending Prescriptions Disp Refills ??? LORazepam (ATIVAN) 1 MG tablet [Pharmacy Med Name: LORAZEPAM 1MG TABS] 90 tablet 1 Sig: TAKE ONE TABLET BY MOUTH THREE TIMES A DAY Most Recent Value 02/16/2019 - 08/15/2019 SUMI-7 Total Score 19 05/14/2019 documented in this encounter Plan of Treatment Upcoming Encounters Date Type Specialty Care Team Description 01/18/2022 Telemedicine Family Medicine Sebastian Griffiths MD [address] [place], [place] [phone] (Wo rk) documented as of this encounter Visit Diagnoses Diagnosis Generalized anxiety disorder documented in this encounter Care Teams Humanities Coordinator Relationship Specialty Start Date End Date Sebastian Griffiths MD PCP - General 10/24/17 [address] [place] [address] documented as of this encounter
--- OUTSIDE RECORDS SUMMARY | 2021-12-09 21:30 | XMS_ITS | Encounter Summary ---
:1950 Author Organization [facility] Address [address] [place] [address] Care Team Providers Name Role Phone Sebastian Griffiths MD Primary Care Provider Reason for Visit Reason Comments Med Refill Encounter Details Date Type Department Care Team Description 09/04/2019 Refill SE Family Med Sebastian Griffiths MD Chronic pain syndrome [address] [facility] [address] [place] [address] [place] [address] [phone] (Wo rk) Social History Tobacco Use Types [...] do you attend mu-ism or Never 2020 quaker services? Do you [...] Telephone Encounter - Mili Rivera MA - 09/04/2019 12:43 PM CDT Last telemedicine visit on 07/08/19. Requesting refill Oxycodone 5 mg, 42 tablet, 0 refill, last done on 08/26/19. documented in this encounter Plan of Treatment Upcoming Encounters Date Type Specialty Care Team Description 01/18/2022 Telemedicine Family Medicine Sebastian Griffiths MD 7 [place], [place] [phone] (Wo rk) documented as of this encounter Visit Diagnoses Diagnosis Chronic pain syndrome documented in this encounter Care Teams Returned Telephone Equipment Appraiser Relationship Specialty Start Date End Date Sebastian Griffiths MD PCP - General 10/24/[address] [place] [phone] documented as of this encounter
--- OUTSIDE RECORDS SUMMARY | 2021-12-09 21:30 | XMS_ITS | Encounter Summary ---
:1950 Author Organization [facility] Address [address] [place] [address] Care Team Providers Name Role Phone Sebastian Griffiths MD Primary Care Provider Reason for Visit Reason Onset Date Comments phone call 08/05/2019 Med Refill 08/05/2019 Encounter Details Date Type Department Care Team Description 08/05/2019 Refill SE Family Med Sebastian Griffiths MD Chronic pain syndrome [address] [facility] [address] [place] [address] [place] [address] [phone] (Wo rk) Social History Tobacco Use Types [...] do you attend yazidism or Never 2020 uatsdin services? Do you [...] Encounter - Mili Rivera MA - 08/05/2019 11:29 AM CDT Last visit on 07/08/19, telemedicine visit. Next office visit on 10/21/19, requesting refill. Oxycodone 5 mg, 42 tablet, 0 refill, done on 07/29/19. Called patient to ask reason for requesting refill now, she is not due for another week. Per patient she is not out of medication, she has about 6 days left, just calling ahead of time to request refill. Pending script with fill date of 08/12/19. Telephone Encounter - Héctor Madrigal - 08/05/2019 9:17 AM CDT Pt calls to request a medication refill of oxyCODONE (ROXICODONE) 5 MG immediate release tablet. Please advise. documented in this encounter Plan of Treatment Upcoming Encounters Date Type Specialty Care Team Description 01/18/2022 Telemedicine Family Medicine Sebastian Griffiths MD [address] [place] [phone] (Wo rk) documented as of this encounter Visit Diagnoses Diagnosis Chronic pain syndrome documented in this encounter Care Teams Computer Networking Instructor Relationship Specialty Start Date End Date Sebastian Griffiths MD PCP - General 10/24/[address] [place] [phone] documented as of this encounter
--- OUTSIDE RECORDS SUMMARY | 2021-12-09 21:30 | XMS_ITS | Encounter Summary ---
:1950 Author Organization [facility] Address [address] [place] [address] Care Team Providers Name Role Phone Sebastian Griffiths MD Primary Care Provider Reason for Visit Reason Onset Date Comments Med Refill 09/04/2019 Encounter Details Date Type Department Care Team Description 09/04/2019 Telephone SE [facility] Med Sebastian Griffiths MD Med Refill [address] [facility] [address] [place] [address] [place] [address] [phone] (Wo rk) Social History Tobacco Use Types [...] or relatives? How often do you attend yazidi or Never 2020 islam services? Do you belong to any clubs or No 05/18/2020 organizations such as yazidi groups, unions, fraternal or athletic groups, or [...] Encounter - Mili Rivera MA - 09/04/2019 12:41 PM CDT Duplicate request Telephone Encounter - Marquita Cabral - 09/04/2019 11:58 AM CDT Pt is needing a refill on oxyCODONE (ROXICODONE) 5 MG immediate release Pharmacy [facility]. documented in this encounter Plan of Treatment Upcoming Encounters Date Type Specialty Care Team Description 01/18/2022 Telemedicine Family Medicine Sebastian Griffiths MD 7 [place], [place] [phone] (Wo rk) documented as of this encounter Visit Diagnoses Not on filedocumented in this encounter Care Teams Shovel Mechanic Relationship Specialty Start Date End Date Sebastian Griffiths MD PCP - General 10/24/[address] [place] [address] documented as of this encounter
--- OUTSIDE RECORDS SUMMARY | 2021-12-09 21:30 | XMS_ITS | Encounter Summary ---
:1950 Author Organization [facility] Address [address] [place] [address] Care Team Providers Name Role Phone Sebastian Griffiths MD Primary Care Provider Reason for Visit Reason Onset Date Comments Med Refill 07/22/2019 Encounter Details Date Type Department Care Team Description 07/22/2019 Refill SE Family Med Sebastian Griffiths MD Controlled type 2 [address] [facility] [address] [place] [address] [place] [address] without complication, (Wo rk) without long-term current [...] do you attend worship or Never 2020 hoahaoism services? Do you [...] Telephone Encounter - Catherine Frank LPN - 07/22/2019 8:35 AM CDT Last visit in provider department: 07/08/19 Telemedicine Last visit requested medication was discussed: 07/08/19 Upcoming appointment with provider: 10/21/2019 Last Rx: 04/06/18 #15ml with 5 refills Requested Prescriptions Pending Prescriptions Disp Refills ??? insulin glargine (Basaglar KwikPen) 100 UNIT/ML injection 15 mL 5 Sig: Inject 20 Units under the skin At 5pm Labs: Component Latest Ref Rng & Units 09/28/2018 Fasting? Unknown Sodium 135 - 145 mEq/L 139 Potassium 3.5 - 5.1 mEq/L 3.9 Chloride 98 - 107 mEq/L 101 CO2 22 - 29 mmol/L 31 (H) BUN 5 - 25 mg/dL 13 Creatinine 0.4 - 1.2 mg/dL 0.6 Glucose 70 - 100 mg/dL 119 (H) Alkaline Phosphatase 38 - 128 U/L 96 AST 8 - 43 U/L 43 Total Protein 6.3 - 8.2 g/dL 7.6 Albumin, Serum 3.5 - 5.0 g/dL 4.2 Calcium, Total,S 8.4 - 10.2 mg/dL 10.0 ALT (SGPT) 0 - 34 U/L 32 Total Bilirubin 0.1 - 1.0 mg/dL 1.2 (H) Pt has Active Labs for DM dated 07/08/19 Last HMGA1C 06/26/18 documented in this encounter Plan of Treatment Upcoming Encounters Date Type Specialty Care Team Description 01/18/2022 Telemedicine Family Medicine Sebastian Griffiths MD [address] [place] [phone] (Wo rk) documented as of this encounter Visit Diagnoses Diagnosis Controlled type 2 diabetes mellitus with out complication, without long-term current use of insulin (HCC) documented in this encounter Care Teams Supervisor Long Goods Relationship Specialty Start Date End Date Sebastian Griffiths MD PCP - General 10/24/[address] [place] [address] documented as of this encounter
--- OUTSIDE RECORDS SUMMARY | 2021-12-09 21:30 | XMS_ITS | Encounter Summary ---
:1950 Author Organization [facility] Address [address] [place] [address] Care Team Providers Name Role Phone Sebastian Griffiths MD Primary Care Provider Reason for Visit Imaging (Routine) - Closed Specialty Diagnoses / Procedures Referred By Contact Refer red To Contact Radiology Diagnoses Chronic right shoulder pain Regan Velásquez MD Procedures MRI Shoulder Right wo IV Contrast [address] [place] [address] Referral ID Status Reason Start Date Expiration Date Visits Requ ested Visits Authorized [id number] Closed 08/28/2019 02/24/2020 1 1 Encounter Details Date Type Department Care Team Description 09/10/2019 Hospital Encounter [facility] MRI Regan Velásquez, [address] [place] [address] [place] [address] [place] [address] [place] [address] (Wo rk) Social History Tobacco Use Types [...] do you attend jainism or Never 2020 temple services? Do you [...] for the very basics like Not h ojhnathan at all 06/23/2020 food, housing, medical care, [...] Misc. Devices lancet See 0 10/08/2015 (RECONSTITUBE) mis Instructions, lancets, 100 each, 5 Refill(s) Misc. Devices glucometer See 0 10/08/2015 (RECONSTITUBE) misc Instructions, glucose monitor, 1 each, 0 Refill(s) prednisoLONE acetate Administer 1 drop 0 06/23/19 [...] complication, without long-term current use of insulin ([facility]) ACETAMINOPHEN EXTRA TAKE TWO TABLETS BY 100 [...] complication, without long-term current use of insulin ([facility]) azithromycin (ZITHROMAX) TAKE 1 TABLET BY 0 03/3010/21/2019 250 MG tablet MOUTH DAILY FOR 4 DAYS cefdinir (OMNICEF) 300 MG TAKE 1 CAPSULE [...] DAY Major depressive disorder, recurrent episode, moderate ([facility]) enoxaparin (LOVENOX) 40 INJECT 40MG/0.4ML [...] complication, without long-term current use of insulin ([facility]) hydroCHLOROthiazide Take 25 mg by mouth 0 [...] II diabetes mellitus with peripheral circulatory disorder ([facility]) Insulin Pen Needle 31G X 1 Pen needle 1 (one) 100 each 1 0 11/15/2018 05/18/2020 8 MM miscIndications: time each day Controlled type 2 diabetes mellitus without complication, without long-term current use of insulin ([facility]) ipratropium-albuterol USE ONE (1) VIAL VIA 180 mL 3 03/2010/05/2020 (DUO-NEB) 0.5-2.5 mg/3 mL NEBULIZER UP TO nebulizer EVERY 4 HOURS solutionIndications: NEEDED WHEEZING. Chronic obstructive pulmonary disease, unspecified COPD type ([facility]) JANUVIA 100 MG TAKE ONE TABLET BY 90 tablet 3 03/11/2019 tabletIndications: MOUTH EVERY MORNING Controlled type 2 diabetes mellitus without complication, without long-term current use of insulin ([facility]) latanoprost (XALATAN) Administer 1 drop [...] TAKE ONE TABLET BY 90 tablet 1 07/1910/07/2019 tabletIndications: MOUTH THREE TIMES A Generalized anxiety [...] 1 TABLET BY 100 each 3 04/15/2019 (TAB-A-CORY) MOUTH EVERY MORNING tabletIndications: Preventative health care [...] TAKE 1 TABLET BY 42 tablet 0 09/0809/19/2019 MG immediate release MOUTH EVERY 8 HOURS tabletIndications: NEEDED FOR SEVERE Chronic pain syndrome PAIN FOR UP TO 14 DAYS Oxymetazoline HCl (NASAL 0 06/13/2017 10/22/2019 SPRAY NA) pantoprazole (PROTONIX) TAKE 1 TABLET BY 90 tablet 3 201905/18/2020 40 MG EC MOUTH DAILY tabletIndications: Gastroesophageal reflux disease without esophagitis risperiDONE (RisperDAL) 2 TAKE ONE TABLET BY 60 tablet 5 11/22/2019 MG tabletIndications: MOUTH TWICE A DAY Major depressive disorder, recurrent episode, moderate (HCC) STOOL SOFTENER/LAXATIVE TAKE TWO TABLETS BY 180 tablet 3 10/201809/30/2019 50-8.6 MG per MOUTH AT BEDTIME tabletIndications: Chronic constipation VENTOLIN HFA 108 (90 INHALE 1 PUFF BY 18 g 5 9 06/01/2021 Base) MCG/ACT MOUTH NEEDED inhalerIndications: Chronic obstructive pulmonary disease, unspecified COPD type (HCC) zolpidem (AMBIEN) 10 MG Take 1 tablet (10 mg 30 tablet 2 10/08/2019 tabletIndications: total) by mouth Insomnia, unspecified every night Per type 05/31/19 order report patient is taking 5 mg at bed time documented as of this encounter Plan of Treatment Upcoming Encounters Date Type Specialty Care Team Description 01/18/2022 Telemedicine Family Medicine Sebastian Griffiths MD [address] [place] [address] (Wo rk) documented as of this encounter Procedures Procedure Name Priority Date/Time Associated Diagnosis Comme nts MR SHOULDER RIGHT Routine 09/10/2019 4:59 PM Chronic right Res ults for this WO IV CONTRAST CDT shoulder pain procedure ar e in the results section. documented in this encounter Results MRI Shoulder Right wo IV Contrast (09/10/2019 4:59 PM CDT) Anatomical Region Laterality Modality Upper Extremities, Shoulder Right Magnetic Res onance Specimen (Source) Anatomical Collection Method Collection Time Re ceived Time Location / / Volume Laterality 09/10/2019 4:59 PM CDT Impressions 09/11/2019 11:20 AM CDT IMPRESSION: 1. Severe tendinosis of the supraspinatu s tendon with articular surface tendon tearing. At least a portion of th e supraspinatus tear is likely high-grade. No full-thickness rotator cu ff tear. No rotator cuff muscle atrophy. 2. Mild tendinosis of the infraspinatus and subscapularis tendons. 3. Mild osteoarthritis of the glenohumer al joint. 1.5 cm long probable joint body, less likely focus of synovit is in the biceps tendon sheath. 4. Labral tearing. 5. Distal clavicle resection and acromio plasty. Dictated by Alexandre Barreto MD @ Sep 10 2 020 11:13AM Signed by Dr. Alexandre Barreto @ Sep 10 11:20AM Narrative 09/11/2019 11:20 AM CDT HISTORY: Shoulder pain. TECHNIQUE: MRI right shoulder without contrast. COMPARISON: None. FINDINGS: Rotator cuff: Severe tendinosis of the d istal supraspinatus tendon with intermediate and hyperintense tendon sig nal. Abnormal signal extends to the articular tendon surface over area m easuring 13 mm AP dimension by 14 mm medial to lateral dimension. No fluid -filled ligament defect. Mild tendinosis of the infraspinatus and subs capularis tendons. Teres minor tendon is intact. No rotator cuff muscle atrophy. Minimal edema in the subscapularis muscle. Acromioclavicular joint and coracoacromi al arch: Foci of postoperative susceptibility artifact around the AC chandler int and acromion. Distal clavicle is attenuated. Acromioplasty. AC joint s pace is widened. Acromioclavicular alignment is maintained. Coracoclavicula r ligament is intact. No os acromiale. No subacromial enthesophyte. Acromiohumeral interval measures 9 mm. Coracohumeral interval is patent. Biceps-labral complex: Long head biceps tendon is intact. No biceps tendon subluxation. Approximately 1.5 cm long i ntermediate signal filling defect with fairly well-defined margin in the b iceps tendon sheath. Tearing of the posterior-superior and inferior labr um. Glenohumeral joint: Moderate grade gleno id and humeral head cartilage loss. Small effusion. Bones and soft tissues: No fracture. No marrow replacing process. Trace fluid in the subacromial-subdeltoid burs a. No deltoid muscle edema. Procedure Note Alexandre Barreto MD - 09/11/2019Format ting of this note might be different from the original. HISTORY: Shoulder pain. TECHNIQUE: MRI right shoulder without contrast. COMPARISON: None. FINDINGS: Rotator cuff: Severe tendinosis of the d istal supraspinatus tendon with intermediate and hyperintense tendon sig nal. Abnormal signal extends to the articular tendon surface over area m easuring 13 mm AP dimension by 14 mm medial to lateral dimension. No fluid -filled ligament defect. Mild tendinosis of the infraspinatus and subs capularis tendons. Teres minor tendon is intact. No rotator cuff muscle atrophy. Minimal edema in the subscapularis muscle. Acromioclavicular joint and coracoacromi al arch: Foci of postoperative susceptibility artifact around the AC chandler int and acromion. Distal clavicle is attenuated. Acromioplasty. AC joint s pace is widened. Acromioclavicular alignment is maintained. Coracoclavicula r ligament is intact. No os acromiale. No subacromial enthesophyte. Acromiohumeral interval measures 9 mm. Coracohumeral interval is patent. Biceps-labral complex: Long head biceps tendon is intact. No biceps tendon subluxation. Approximately 1.5 cm long i ntermediate signal filling defect with fairly well-defined margin in the b iceps tendon sheath. Tearing of the posterior-superior and inferior labr um. Glenohumeral joint: Moderate grade gleno id and humeral head cartilage loss. Small effusion. Bones and soft tissues: No fracture. No marrow replacing process. Trace fluid in the subacromial-subdeltoid burs a. No deltoid muscle edema. IMPRESSION: 1. Severe tendinosis of the supraspinatu s tendon with articular surface tendon tearing. At least a portion of th e supraspinatus tear is likely high-grade. No full-thickness rotator cu ff tear. No rotator cuff muscle atrophy. 2. Mild tendinosis of the infraspinatus and subscapularis tendons. 3. Mild osteoarthritis of the glenohumer al joint. 1.5 cm long probable joint body, less likely focus of synovit is in the biceps tendon sheath. 4. Labral tearing. 5. Distal clavicle resection and acromio plasty. Dictated by Alexandre Barreto MD @ Sep 10 2 020 11:13AM Signed by Dr. Alexandre Barreto @ Sep 10 11:20AM Regan Velásquez MD IMG MRI PROCEDURES documented in this encounter Visit Diagnoses Not on filedocumented in this encounter Care Teams Digital Media Strategist Relationship Specialty Start Date End Date Sebastian Griffiths MD PCP - General 10/24/17 [address] [place] [address] documented as of this encounter
--- OUTSIDE RECORDS SUMMARY | 2021-12-09 21:30 | XMS_ITS | Encounter Summary ---
:1950 Author Organization [facility] Address [address] [place] [address] Care Team Providers Name Role Phone Sebastian Griffiths MD Primary Care Provider Reason for Referral Imaging (Routine) - Closed Specialty Diagnoses / Procedures Referred By Contact Refer red To Contact Radiology Diagnoses Chronic right shoulder pain Regan Velásquez MD Procedures MRI Shoulder Right wo IV Contrast [address] [place] [address] Referral ID Status Reason Start Date Expiration Date Visits Requ ested Visits Authorized [id number] Closed 08/28/2019 02/24/2020 1 1 Encounter Details Date Type Department Care Team Description 08/28/2019 Orders Only [facility] Regan Velásquez, Sima r ight shoulder Orthopedics pain [address] [facility] [address] [place] [address] [place] [address] Social History Tobacco Use Types [...] do you attend anabaptism or Never 2020 restoration services? Do you [...] Telemedicine Family Medicine Sebastian Griffiths MD [address] [place] [phone] (Wo rk) documented as of [...] by Dr. Alexandre Barreto @ Sep 10 20 11:20AM Regan Velásquez MD IMG MRI PROCEDURES documented in this encounter Visit Diagnoses Diagnosis Chronic right shoulder pain Pain in joint, shoulder region documented in this encounter Care Teams Laboratory Phlebotomist Relationship Specialty Start Date End Date Sebastian Griffiths MD PCP - General 10/24/[address] [place] [address] documented as of this encounter
--- OUTSIDE RECORDS SUMMARY | 2021-12-09 21:30 | XMS_ITS | Encounter Summary ---
:1950 Author Organization [facility] Address [address] [place] [address] Care Team Providers Name Role Phone Sebastian Griffiths MD Primary Care Provider Reason for Visit Reason Onset Date Comments Med Refill 07/04/2019 Encounter Details Date Type Department Care Team Description 07/04/2019 Refill SE Family Med Sebastian Griffiths MD Chronic pain syndrome [address] [facility] [address] [place] [address] [place] [address] [phone] (Wo rk) Social History Tobacco Use Types [...] do you attend lutheran or Never 2020 yazdanism services? Do you [...] Telephone Encounter - Sebastian Griffiths MD - 07/05/2019 4:25 PM CDT . Telephone Encounter - Yanna Cheng LPN - 07/04/2019 8:58 AM CDT Last appointment 05/14/19. Next appointment 07/08/19. Rx last given on 06/28/19 for #30 and no refills. Telephone Encounter - Elie Coley - 07/04/2019 7:44 AM CDT Patient call requesting refill for Oxycodone. Pt would like it to be fax to [facility]. documented in this encounter Plan of Treatment Upcoming Encounters Date Type Specialty Care Team Description 01/18/2022 Telemedicine Family Medicine Sebastian Griffiths MD [address] [place] [phone] (Wo rk) documented as of this encounter Visit Diagnoses Diagnosis Chronic pain syndrome documented in this encounter Additional Health Concerns Infection Onset Date Last Indicated Resolved Time COVID-19 Rule Out 10/27/2019 10/27/2019 10/27/2019 11: 08 PM CDT documented as of this encounter Care Teams Signal Technician Relationship Specialty Start Date End Date Sebastian Griffiths MD PCP - General 10/24/[address] [place] [address] documented as of this encounter
--- OUTSIDE RECORDS SUMMARY | 2021-12-09 21:30 | XMS_ITS | Encounter Summary ---
:1950 Author Organization [facility] Address [address] [place] [address] Care Team Providers Name Role Phone Sebastian Griffiths MD Primary Care Provider Reason for Visit Reason Comments Med Refill Encounter Details Date Type Department Care Team Description 09/05/2019 Refill SE Family Med Sebastian Griffiths, Osteoarthritis of both [address] [facility] knees, [place] [address] osteoarthritis type [phone] [place] [address] Social History Tobacco Use Types [...] do you attend jew or Never 2020 jehovah's witness services? Do [...] Telephone Encounter - Mili Rivera MA - 09/09/2019 8:48 AM CDT Last telemedicine visit on 07/08/19, next schedule visit on 10/21/19. Requesting refill Acetaminophen extra strength 500 mg, 100 tablet, 11 refills, last done on 02/25/2019. Telephone Encounter - Tamie Stewart - 09/09/2019 8:32 AM CDT Pt calling wondering about his fill as well please advise. Thanks documented in this encounter Plan of Treatment Upcoming Encounters Date Type Specialty Care Team Description 01/18/2022 Telemedicine Family Medicine Sebastian Griffiths MD [address] [place], [place] [address] (Wo rk) documented as of this encounter Visit Diagnoses Diagnosis Osteoarthritis of both knees, unspecifie d osteoarthritis type documented in this encounter Care Teams Coffee Attendant Relationship Specialty Start Date End Date Sebastian Griffiths MD PCP - General 10/24/17 [address] [place], [place] [phone] documented as of this encounter
--- OUTSIDE RECORDS SUMMARY | 2021-12-09 21:30 | XMS_ITS | Encounter Summary ---
:1950 Author Organization [facility] Address [address] [place] [address] Care Team Providers Name Role Phone Sebastian Griffiths MD Primary Care Provider Encounter Details Date Type Department Care Team Description 08/29/2019 Orders Only [facility] Orthope dics Regan Kelly, [address] [facility] NUT PROCESSING SUPERVISOR, [place] [address] [address] [facility] [phone] [place] [address] (Wo rk) Social History Tobacco [...] do you attend yarsani or Never 2020 adventism services? Do you belong to any clubs [...] Progress Notes Regan Kelly APRN, CNP - 08/29/2019 9:46 AM CDT lo documented in this encounter Plan of Treatment Upcoming Encounters Date Type Specialty Care Team Description 01/18/2022 Telemedicine Family Medicine Sebastian Griffiths MD [address] [place], [place] [address] (Wo rk) documented as of this encounter Visit Diagnoses Not on filedocumented in this encounter Care Teams Linen Manager Relationship Specialty Start Date End Date Sebastian Griffiths MD PCP - General 10/24/17 [address] [place], [place] [id number] documented as of this encounter
--- OUTSIDE RECORDS SUMMARY | 2021-12-09 21:30 | XMS_ITS | Encounter Summary ---
:1950 Author Organization [facility] Address [address] [place] [address] Care Team Providers Name Role Phone Sebastian Griffiths MD Primary Care Provider Encounter Details Date Type Department Care Team Description 09/04/2019 Orders Only SE [facility] Med Sebastian Griffiths, Acute pain of right [address] shoulder (Primary Dx) [place] [address] [address] [phone] [place] [address] Social History Tobacco Use Types [...] do you attend tenriism or Never 2020 moravian services? Do you [...] Telemedicine Family Medicine Sebastian Griffiths MD [address] [place] [address] (Wo rk) Scheduled Orders Name Type Priority Associated Diagnoses Order S chedule X-ray Shoulder 2+ Imaging Routine Acute pain of right Exp ected: 09/04/2019, Views Right shoulder Expires: 2020 documented as of this encounter Visit Diagnoses Diagnosis Acute pain of right shoulder - Primary documented in this encounter Care Teams Bag Turner Relationship Specialty Start Date End Date Sebastian Griffiths MD PCP - General 10/24/[address] [place] [address] documented as of this encounter
--- OUTSIDE RECORDS SUMMARY | 2021-12-09 21:30 | XMS_ITS | Encounter Summary ---
:1950 Author Organization [facility] Address [address] [place] [address] Care Team Providers Name Role Phone Sebastian Griffiths MD Primary Care Provider Reason for Visit Reason Onset Date Comments shi/ross 09/16/2019 Encounter Details Date Type Department Care Team Description 09/16/2019 Telephone [facility] Sebastian Griffiths MD walker/ross [address] [facility] [address] [place] [address] [place] [address] [phone] (Wo rk) Social History Tobacco Use Types [...] do you attend christianity or Never 2020 sikh services? Do you [...] encounter Miscellaneous Notes Telephone Encounter - Regan Gaminojaredsheryl - 11/12/2019 12:51 PM CDT Faxed received from [employer] requesting a Standard Written Order for a powerscooter. Faxed placed in Dr. Griffiths's nurse's in box. Telephone Encounter - Sun Gloria RN - 09/19/2019 9:59 AM CDT Called patient and gave her Dr. Griffiths's message. She did not understand why a visit is needed. Explained that Medicare requires an office visit that documents the need for the walker/scooter. Patient did not want to call [place] to ask them. She was transferred to [facility] to make appt. Telephone Encounter - Sebastian Griffiths MD - 09/19/2019 9:21 AM CDT Let her know that I will need to see her for the order, but perhaps she could get it sooner from herorthopedic surgeon at [place] who saw and treated her for her knee fracture. Thanks. Telephone Encounter - Tamie Stewart - 09/16/2019 7:41 AM CDT Pt calling stating [facility] needs documentation as to why she needs a walker/scooter documented in this encounter Plan of Treatment Upcoming Encounters Date Type Specialty Care Team Description 01/18/2022 Telemedicine Family Medicine Sebastian Griffiths MD [address] [place] [address] (Wo rk) documented as of this encounter Visit Diagnoses Not on filedocumented in this encounter Additional Health Concerns Infection Onset Date Last Indicated Resolved Time COVID-19 Rule Out 10/27/2019 10/27/2019 10/27/2019 11: 08 PM CDT documented as of this encounter Care Teams Pressfitter Relationship Specialty Start Date End Date Sebastian Griffiths MD PCP - General 10/24/17 [address] [place] [address] documented as of this encounter
--- OUTSIDE RECORDS SUMMARY | 2021-12-09 21:30 | XMS_ITS | Encounter Summary ---
:1950 Author Organization [facility] Address [address] [place] [address] Care Team Providers Name Role Phone Sebastian Griffiths MD Primary Care Provider Reason for Visit Reason Onset Date Comments Med Refill 07/29/2019 Oxycodone Encounter Details Date Type Department Care Team Description 07/29/2019 Refill SE Internal Medicine Sun Gloria RN Chronic pain syndrome [address] [facility] [address] [place] [address] [place] [phone] Social History Tobacco Use Types Packs/Day Years [...] do you attend episcopal or Never 2020 pentecostalism services? Do you [...] Telephone Encounter - Sun Gloria RN - 07/29/2019 8:36 AM CDT Patient calling for refill: oxyCODONE (ROXICODONE) 5 MG immediate release tablet [[id number]] ?? Order Details Dose, Route, Frequency: As Directed Dispense Quantity: 42 tablet Refills: 0 Fills remaining: -- ?? Sig: TAKE ONE TABLET BY MOUTH EVERY 8 HOURS NEEDED FOR SEVERE PAIN FOR UP TO 14 DAYS ?? Written Date: 07/08/19 Expiration Date: 09/06/19 Last appt 07/08/19 Next appt 10/21/19 Need CSA updated documented in this encounter Plan of Treatment Upcoming Encounters Date Type Specialty Care Team Description 01/18/2022 Telemedicine Family Medicine Sebastian Griffiths MD [address] [place], [place] [address] (Wo rk) documented as of this encounter Visit Diagnoses Diagnosis Chronic pain syndrome documented in this encounter Care Teams Bridge Gang Worker Relationship Specialty Start Date End Date Sebastian Griffiths MD PCP - General 10/24/[address] [place] [address] documented as of this encounter
--- OUTSIDE RECORDS SUMMARY | 2021-12-09 21:30 | XMS_ITS | Encounter Summary ---
:1950 Author Organization [facility] Address [address] [place] [address] Care Team Providers Name Role Phone Sebastian Griffiths MD Primary Care Provider Reason for Visit Reason Comments Shoulder Pain right shoulder MRI results Encounter Details Date Type Department Care Team Description 09/17/2019 Office Visit [facility] Regan Velásquez, Tendinopa thy of right Orthopedics biceps tendon (Primary [address] Dx) [place] [address] [place] [phone] Social History Tobacco Use Types Packs/Day Years [...] do you attend mosque or Never 2020 methodist services? Do you [...] Pressure - - Pulse - - Temperature 36.6 ??C (97.9 ??F) 09/17/2019 8:42 AM CDT Respiratory Rate - - Oxygen Saturation - - Inhaled Oxygen Concentration - - Weight 104 kg (229 lb 4.5 oz) 09/17/2019 8:42 AM CDT Height 165.1 cm (5' 5) 09/17/2019 8:42 AM CDT Body Mass Index 38.15 09/17/2019 8:42 AM CDT documented in this encounter Progress Notes Regan Velásquez MD - 09/17/2019 9:00 AM CDT Established Patient Note Chief Complaint: Shoulder pain, right. History: 69 y.o. female presents for evaluation of right shoulder pain. The pain started with no known precipitating injury or known cause, approximately Several months ago. There is no history of a similar problem. Shoulder pain is worse with lifting/reaching/pushing/pulling, better with resting the elbow at the side, 10/10 intensity and causing night pain and sleep disruption. Denies numbness/tingling in the arm. Allergies: Bee venom; Losartan; Aspirin; Nsaids; Penicillins; [...] Not Currently ??? Sexual activity: Defer Objective: Visit Vitals Temp 36.6 ??C (97.9 ??F) (Temporal) Ht 1.651 m (5' 5) Wt 104 kg (229 lb 4.5 oz) BMI 38.15 kg/m?? OB Status Hysterectomy Smoking Status Current Every Day Smoker BSA 2.18 m?? General: Mental status is oriented to time, place, and person; alert and coherent. Affect is appropriate. Appearance of medium build; BMI 38.15 kg/m??. Right shoulder: No skin lesions overlying the shoulder. No obvious scapular muscle atrophy. Tender to palpation overthe subacromial space, AC joint and proximal biceps tendon area. No biceps contour asymmetry. Shoulder ROM: active FE 5 degrees . She also will not allow me to internally or externally rotate her arm. The shoulder is ligamentously stable. I am unable to test rotator cuff strength. Process Safety Engineering Technologist strength 4-/5. 2+ brachioradialis deep tendon reflexes [...] biceps tendon sheath * Right shoulder impingement syndrome * Right shoulder partial-thickness rotator cuff tearing Plan: I had a long discussion with the patient today regarding their primary problem. Simple relevant anatomy was discussed to better help the patient understand my diagnostic opinions and the spectrum of treatment alternatives. Fortunately, her rotator cuff appears intact without a full-thickness defect. In my opinion, the main finding on her MRI is the suspected loose body and her proximal biceps tendon sheath. I think it is possible that this may be the primary source of her pain. I cannot rule out a frozen shoulder, as pain keeps her from moving her shoulder at all. I would not offer a surgical alternative without some evidence that the proximal biceps tendon sheath is at least a major source of herpain. After our discussion, she agreed to pursue a lidocaine/cortisone injection into the proximal biceps tendon sheath for diagnostic and therapeutic purposes. If this injection helped significantly, this would add support to a potential surgical option. Apparently, she has been using oxycodone on a regular basis for her shoulder. I recommended that she continue to only get her narcotics through [facility]. She was sent to our registration desk to schedule a time for the ultrasound-guided procedure. Sebastian Griffiths MD - 09/17/2019 9:00 AM CDT Reviewed documented in this encounter Plan of Treatment Upcoming Encounters Date Type Specialty Care Team Description 01/18/2022 Telemedicine Family Medicine Sebastian Griffiths MD [address] [place], [place] [address] (Wo rk) documented as of this encounter Visit Diagnoses Diagnosis Tendinopathy of right biceps tendon - Pr imary documented in this encounter Care Teams Rn Testing Relationship Specialty Start Date End Date Sebastian Griffiths MD PCP - General 10/24/17 [address] [place], [place] [phone] documented as of this encounter
--- OUTSIDE RECORDS SUMMARY | 2021-12-09 21:30 | XMS_ITS | Encounter Summary ---
:1950 Author Organization [facility] Address [address] [place] [address] Care Team Providers Name Role Phone Sebastian Griffiths MD Primary Care Provider Reason for Visit Reason Onset Date Comments Outside Form Request 09/24/2019 Encounter Details Date Type Department Care Team Description 09/24/2019 Telephone SE [facility] Ying Stanford Outside Form Request [address], [place] [address] 210 [facility] [phone] [place] [address] Social History Tobacco Use Types [...] do you attend tenriism or Never 2020 methodist services? Do you [...] Notes Telephone Encounter - Regan Gaminojaredsheryl - 10/23/2019 10:46 AM CDT Faxed 10/21/19 note to [employer] [phone] on 10/23/19. Telephone Encounter - IVELISSE Murdock - 09/24/2019 2:16 PM CDT Received fax from [employer] requesting signed/dated medical records from treating physician. Patient has appt with provider 10/21/19. Will hold until appt. documented in this encounter Plan of Treatment Upcoming Encounters Date Type Specialty Care Team Description 01/18/2022 Telemedicine Family Medicine Sebastian Griffiths MD [address] [place], [place] [address] (Wo rk) documented as of this encounter Visit Diagnoses Not on filedocumented in this encounter Care Teams Special Equipment Technician Relationship Specialty Start Date End Date Sebastian Griffiths MD PCP - General 10/24/[address] [place] [address] documented as of this encounter
--- OUTSIDE RECORDS SUMMARY | 2021-12-09 21:30 | XMS_ITS | Encounter Summary ---
:1950 Author Organization [facility] Address [address] [place] [address] Care Team Providers Name Role Phone Sebastian Griffiths MD Primary Care Provider Reason for Visit Reason Comments Med Refill Encounter Details Date Type Department Care Team Description 07/29/2019 Refill SE Family Med Sebastian Griffiths MD Chronic pain syndrome [address] [facility] [address] [place] [address] [place] [address] [phone] (Wo rk) Social History Tobacco Use Types [...] do you attend adventism or Never 2020 baptism services? Do you belong to any clubs [...] Telephone Encounter - Jayshree Rodriguez MA - 07/31/2019 7:30 AM CDT Rx completed on 07/29/19, #42, 0 refills, Spoke with pharmacy, patient has medication documented in this encounter Plan of Treatment Upcoming Encounters Date Type Specialty Care Team Description 01/18/2022 Telemedicine Family Medicine Sebastian Griffiths MD [address] [place], [place] [address] (Wo rk) documented as of this encounter Visit Diagnoses Diagnosis Chronic pain syndrome documented in this encounter Additional Health Concerns Infection Onset Date Last Indicated Resolved Time COVID-19 Rule Out 10/27/2019 10/27/2019 10/27/2019 11: 08 PM CDT documented as of this encounter Care Teams Oven Press Tender Relationship Specialty Start Date End Date Sebastian Griffiths MD PCP - General 10/24/17 [address] [place], [place] [phone] documented as of this encounter
--- OUTSIDE RECORDS SUMMARY | 2021-12-09 21:30 | XMS_ITS | Encounter Summary ---
:1950 Author Organization [facility] Address [address] [place] [address] Care Team Providers Name Role Phone Sebastian Griffiths MD Primary Care Provider Reason for Visit Reason Comments Injections Right proximal biceps inject ion Encounter Details Date Type Department Care Team Description 09/24/2019 Procedure visit [facility] Regan Velásquez te ndinitis of Orthopedics MD Jorge Alberto right upper extremity [address] (Primary Dx) [address] [phone] [place] [phone] Social History Tobacco Use Types Packs/Day Years [...] do you attend yarsani or Never 2020 shinto services? Do you [...] Pressure - - Pulse - - Temperature 36.1 ??C (97 ??F) 09/24/2019 10:21 AM CDT Respiratory Rate - - Oxygen Saturation - - Inhaled Oxygen Concentration - - Weight - - Height - - Body Mass Index - - documented in this encounter Progress Notes Regan Velásquez MD - 09/24/2019 10:15 AM CDT DIAGNOSIS Biceps tendinitis of right upper extremity [M75.21] PROCEDURE NOTE Ultrasound-guided right shoulder proximal biceps tendon sheath injection : After our discussion and after a demonstrated understanding of the options, indications, and risks/benefits (risks including infection, local tissue damage, continued or worsening pain), the patient consented to a proximal biceps tendon injection performed under ultrasound guidance. After surgical site verification processes (including a 'time-out'), a local skin preparation of alcohol and iodine wasperformed. The right proximal biceps tendon was visualized in the bicipital groove with the transducer short axis to the tendon. The tendon was found located normally within the bicipital groove, with a large amount of fluid and other hypoechoic densities within the sheath. Using sterile technique incl uding use of sterile ultrasound gel, a 22-gauge needle was inserted from lateral to medial in-plane to the transducer, with the tip guided into the biceps tendon sheath. 1 cc of Kenalog (40mg) and 1 ccof plain 1% lidocaine was injected into the proximal biceps tendon sheath. The injection was tolerated well. The patient was discharged from clinic in stable condition. A single image was saved documenting the needle placement in the proximal biceps tendon sheath. Before leaving, she thought that the shoulder might feel a little better. If the injection does not help her shoulder pain to her satisfaction, then I think we would have a surgical option to discuss. She was invited to return anytime. documented in this encounter Plan of Treatment Upcoming Encounters Date Type Specialty Care Team Description 01/18/2022 Telemedicine Family Medicine Sebastian Griffiths MD [address] [place] [address] (Wo rk) documented as of this encounter Visit Diagnoses Diagnosis Biceps tendinitis of right upper extremi ty - Primary documented in this encounter Administered Medications Inactive Administered Medications - up to 3 most recent administrations Medication Order MAR Action Action Date Dose Rate Site triamcinolone acetonide Given by Other 09/24/2019 11:39 AM CDT 40 mg (KENALOG-40) 40 MG/ML injection 40 mg 40 mg, Intra-articular, Once, On Mon09/24/19 at 1130, For 1 dose documented in this encounter Care Teams Gymnasium Teacher Relationship Specialty Start Date End Date Sebastian Griffiths MD PCP - General 10/24/[address] [place] [address] documented as of this encounter
--- OUTSIDE RECORDS SUMMARY | 2021-12-09 21:30 | XMS_ITS | Encounter Summary ---
:1950 Author Organization [facility] Address [address] [place] [address] Care Team Providers Name Role Phone Sebastian Griffiths MD Primary Care Provider Reason for Visit Reason Comments Med Refill Encounter Details Date Type Department Care Team Description 09/17/2019 Refill SE Family Med Sebastian Griffiths MD Chronic pain syndrome [address] [facility] [address] [place] [address] [place] [address] [phone] (Wo rk) Social History Tobacco Use Types [...] do you attend alevism or Never 2020 christianity services? Do you [...] encounter Miscellaneous Notes Telephone Encounter - Amanda Lambert MA - 09/19/2019 3:37 PM CDT Last visit in provider department: 07/08/2019 telemedicine Last visit requested medication was discussed: 07/08/2019 Upcoming appointment with provider: 10/21/2019 Last Rx: 09/09/2019, #42, 0 RF Requested Prescriptions Pending Prescriptions Disp Refills ??? oxyCODONE (ROXICODONE) 5 MG immediate release tablet [Pharmacy Med Name: OXYCODONE HCL 5MG TABS]42 tablet 0 Sig: TAKE 1 TABLET BY MOUTH EVERY 8 HOURS NEEDED FOR SEVERE PAIN FOR UP TO 14 DAYS Please advise on patient's request for increase of medication. Telephone Encounter - Suraj Antoninodayo - 09/17/2019 12:07 PM CDT PT called stating she needs to have an increase of medication do to having surgery on her arm. documented in this encounter Plan of Treatment Upcoming Encounters Date Type Specialty Care Team Description 01/18/2022 Telemedicine Family Medicine Sebastian Griffiths MD [address] [place] [address] (Wo rk) documented as of this encounter Visit Diagnoses Diagnosis Chronic pain syndrome documented in this encounter Care Teams Logging Crew Foreman Relationship Specialty Start Date End Date Sebastian Griffiths MD PCP - General 10/24/[address] [place] [address] documented as of this encounter
--- OUTSIDE RECORDS SUMMARY | 2021-12-09 21:30 | XMS_ITS | Encounter Summary ---
:[address] [facility] Address [address] [place] [address] Care Team Providers Name Role Phone Sebastian Griffiths MD Primary Care Provider Reason for Visit Reason Onset Date Comments RE: follow up on injection 09/27/2019 Encounter Details Date Type Department Care Team Description 09/27/2019 Telephone [facility] Regan Velásquez, RE: dyan w up on Orthopedics injection [address] [place] [address] [place] [phone] (Wo rk) Social History Tobacco Use Types [...] do you attend taoism or Never 2020 buddhism services? Do you [...] Encounter - Jorge Alberto Winston MA - 10/01/2019 10:46 AM CDT Please call patient and help her schedule a appointment with Dr Velásquez if she would like to discuss surgery with him since injections are not working. This would be the next step for her per Didier. Thank you! Telephone Encounter - Regan Velásquez MD - 09/27/2019 11:53 AM CDT I don't know if surgery will help her, but I dont know what else to try. If she wants to schedule surgery, she would need to see me to get things scheduled. MK Telephone Encounter - Jorge Alberto Winston MA - 09/27/2019 9:52 AM CDT Patient states that her arm/ shoulder still hurts and that there is an knot in the arm. She states her pain is a 10/10 and that she has gotten no relief with the injection. She denies any numbness or tingling in the arm. Please advise. documented in this encounter Plan of Treatment Upcoming Encounters Date Type Specialty Care Team Description 01/18/2022 Telemedicine Family Medicine Sebastian Griffiths MD [address] [place], [place] [address] (Wo rk) documented as of this encounter Visit Diagnoses Not on filedocumented in this encounter Additional Health Concerns Infection Onset Date Last Indicated Resolved Time COVID-19 Rule Out 10/27/2019 10/27/2019 10/27/2019 11: 08 PM CDT documented as of this encounter Care Teams Window Cleaner Relationship Specialty Start Date End Date Sebastian Griffiths MD PCP - General 10/24/17 [address] [place], [place] [address] documented as of this encounter
--- OUTSIDE RECORDS SUMMARY | 2021-12-09 21:30 | XMS_ITS | Encounter Summary ---
:1950 Author Organization [facility] Address [address] [place] [address] Care Team Providers Name Role Phone Sebastian Griffiths MD Primary Care Provider Reason for Visit Reason Onset Date Comments Forms/questionnaires 08/02/2019 Encounter Details Date Type Department Care Team Description 08/02/2019 Telephone SE Immunization Hien, Ying Forms/questionnaires [address] [facility], [place] [address] 210 [facility] [phone] [place] [address] Social History Tobacco Use Types [...] do you attend denominational or Never 2020 buddhist services? Do you [...] this encounter Miscellaneous Notes Telephone Encounter - Shefali Vasquez MA - 08/07/2019 1:53 PM CDT Faxed various forms to [facility], eliud Jordan RN fax # [phone]. Paperwork sent to [facility]. Telephone Encounter - Sebastian Griffiths MD - 08/06/2019 1:38 PM CDT Done, on my desk. Thanks. Telephone Encounter - IVELISSE Murdock - 08/02/2019 1:25 PM CDT Received fax from [employer] to review, sign, and return forms to [phone]. Green tracking form attached. Placed in provider's inbox, Please advise. documented in this encounter Plan of Treatment Upcoming Encounters Date Type Specialty Care Team Description 01/18/2022 Telemedicine Family Medicine Sebastian Griffiths MD [address] [place], [place] [address] (Wo rk) documented as of this encounter Visit Diagnoses Not on filedocumented in this encounter Care Teams Hauling Contractor Relationship Specialty Start Date End Date Sebastian Griffiths MD PCP - General 10/24/17 [address] [place] [address] documented as of this encounter
--- OUTSIDE RECORDS SUMMARY | 2021-12-09 21:30 | XMS_ITS | Encounter Summary ---
:1950 Author Organization [facility] Address [address] [place] [address] Care Team Providers Name Role Phone Sebastian Griffiths MD Primary Care Provider Reason for Visit Reason Onset Date Comments med refill 10/01/2019 Encounter Details Date Type Department Care Team Description 10/01/2019 Telephone SE [facility] Med Sebastian Griffiths MD med refill [address] [facility] [address] [place] [address] [place] [address] [phone] (Wo rk) Social History Tobacco Use Types [...] do you attend samaritan or Never 2020 denominational services? Do you [...] Telephone Encounter - Amanda Parkinson RN - 10/01/2019 10:36 AM CDT Duplicate request. Telephone Encounter - Tamie Stewart - 10/01/2019 10:28 AM CDT oxyCODONE (ROXICODONE) 5 MG immediate release tablet Pt calling for refill states she is down to 10 pills [facility] pharmacy documented in this encounter Plan of Treatment Upcoming Encounters Date Type Specialty Care Team Description 01/18/2022 Telemedicine Family Medicine Sebastian Griffiths MD [address] [place], [place] [address] (Wo rk) documented as of this encounter Visit Diagnoses Not on filedocumented in this encounter Care Teams Manager Risk Management Relationship Specialty Start Date End Date Sebastian Griffiths MD PCP - General 10/24/[address] [place] [id number] documented as of this encounter
--- OUTSIDE RECORDS SUMMARY | 2021-12-09 21:30 | XMS_ITS | Encounter Summary ---
:1950 Author Organization [facility] Address [address] [place] [address] Care Team Providers Name Role Phone Sebastian Griffiths MD Primary Care Provider Reason for Visit Reason Onset Date Comments Med Refill Med Refill 10/03/2019 Encounter Details Date Type Department Care Team Description 10/01/2019 Telephone [facility] Med Sebastian Griffiths, Med Refill; Med Refill [address] [facility] [place] [address] [address] [phone] [place], [place] [address] Social History Tobacco Use Types Packs/Day Years [...] do you attend uatsdin or Never 2020 protestant services? Do you [...] for the very basics like Not h jhonathan at all 06/23/2020 food, housing, medical care, [...] Telephone Encounter - Sebastian Griffiths MD - 10/03/2019 5:17 PM CDT Already prescribed and is due to be picked up on Monday Telephone Encounter - Cole Vaughan - 10/03/2019 2:39 PM CDT Patient called and requested the oxycodone refill be sent to her pharmacy, [facility] Telephone Encounter - Amanda Parkinson RN - 10/01/2019 10:35 AM CDT Last seen 07/08/19, has follow up scheduled 10/21/19. Rx for oxycodone #42 tablets last written 09/23/19. documented in this encounter Plan of Treatment Upcoming Encounters Date Type Specialty Care Team Description 01/18/2022 Telemedicine Family Medicine Sebastian Griffiths MD [address] [place], [place] [address] (Wo rk) documented as of this encounter Visit Diagnoses Diagnosis Chronic pain syndrome documented in this encounter Care Teams New Grad Rn Relationship Specialty Start Date End Date Sebastian Griffiths MD PCP - General 10/24/17 [address] [place], [place] [phone] documented as of this encounter
--- OUTSIDE RECORDS SUMMARY | 2021-12-09 21:30 | XMS_ITS | Encounter Summary ---
:[address] [facility] Address [address] [place] [address] Care Team Providers Name Role Phone Sebastian Griffiths MD Primary Care Provider Encounter Details Date Type Department Care Team Description 09/24/2019 Travel Social History Tobacco Use Types Packs/Day [...] you attend jehovah's witness or Never 2020 buddhism services? Do you [...] 01/18/2022 Telemedicine Family Medicine Sebastian Griffiths MD [address] [place], [place] [address] (Wo rk) documented as of this encounter Visit Diagnoses Not on filedocumented in this encounter Care Teams Cardiology Associate Relationship Specialty Start Date End Date Sebastian Griffiths MD PCP - General 10/24/17 [address] [place] [address] documented as of this encounter
--- OUTSIDE RECORDS SUMMARY | 2021-12-09 21:30 | XMS_ITS | Encounter Summary ---
:1950 Author Organization [facility] Address [address] [place] [address] Care Team Providers Name Role Phone Sebastian Griffiths MD Primary Care Provider Reason for Visit Reason Comments Med Refill Encounter Details Date Type Department Care Team Description 09/25/2019 Refill SE Family Med Sebastian Griffiths MD Chronic constipation [address] [facility] [address] [place] [address] [place] [address] [phone] (Wo rk) Social History Tobacco Use Types [...] you attend jehovah's witness or Never 2020 zoroastrianism services? Do you [...] Telephone Encounter - Guillermina Moran MA - 09/30/2019 10:35 AM CDT Last visit in provider department: 07/08/2019 Last visit requested medication was discussed: med has not been reviewed in the last year. Upcoming appointment with provider: 10/21/2019 Last Rx: 07/25/2018 # 180, 3 refill Requested Prescriptions Pending Prescriptions Disp Refills ??? STOOL SOFTENER/LAXATIVE 50-8.6 MG per tablet [Pharmacy Med Name: STOOL SOFTENER/LAXATIVE 50-8.6 TABS] 180 tablet 3 Sig: TAKE 2 TABLETS BY MOUTH AT BEDTIME documented in this encounter Plan of Treatment Upcoming Encounters Date Type Specialty Care Team Description 01/18/2022 Telemedicine Family Medicine Sebastian Grfifiths MD [address] [place], [place] [address] (Wo rk) documented as of this encounter Visit Diagnoses Diagnosis Chronic constipation Unspecified constipation documented in this encounter Care Teams Functional Director Relationship Specialty Start Date End Date Sebastian Griffiths MD PCP - General 10/24/[address] [place] [phone] documented as of this encounter
--- OUTSIDE RECORDS SUMMARY | 2021-12-09 21:30 | XMS_ITS | Encounter Summary ---
:[address] [facility] Address [address] [place] [address] Care Team Providers Name Role Phone Sebastian Griffiths MD Primary Care Provider Reason for Visit Reason Comments Med Refill Encounter Details Date Type Department Care Team Description 07/04/2019 Refill SE Family Med Sebastian Griffiths MD Chronic pain syndrome [address] [facility] [address] [place] [address] [place] [address] [phone] (Wo rk) Social History Tobacco Use Types [...] do you attend methodist or Never 2020 confucianism services? Do you [...] Telephone Encounter - Amanda Parkinson RN - 07/05/2019 8:48 AM CDT Rx for oxycodone last written for #30 tabs on 06/28/19. Patient has f/u scheduled 07/08/19. Please advise on refill. Telephone Encounter - Elie Coley - 07/05/2019 8:41 AM CDT Patient call to follow up on status of this medication. Please advise. documented in this encounter Plan of Treatment Upcoming Encounters Date Type Specialty Care Team Description 01/18/2022 Telemedicine Family Medicine Sebastian Griffiths MD [address] [place], [place] [address] (Wo rk) documented as of this encounter Visit Diagnoses Diagnosis Chronic pain syndrome documented in this encounter Care Teams Inspector Hot Forgings Relationship Specialty Start Date End Date Sebastian Griffiths MD PCP - General 10/24/[address] [place] [phone] documented as of this encounter
--- OUTSIDE RECORDS SUMMARY | 2021-12-09 21:31 | XMS_ITS | Encounter Summary ---
:[address] [facility] Address [address] [place] [address] Care Team Providers Name Role Phone Sebastian Griffiths MD Primary Care Provider Reason for Visit Reason Onset Date Comments telephone follow up 06/27/2019 Encounter Details Date Type Department Care Team Description 06/27/2019 Telephone [facility] Sebastian Griffiths MD telephone follow up [address] [facility] [address] [place] [address] [place] [address] [phone] (Wo rk) Social History Tobacco Use Types [...] do you attend mormonism or Never 2020 jain services? Do you [...] Telephone Encounter - Sebastian Griffiths MD - 06/27/2019 6:22 PM CDT Pain medications refilled for 10 days. Telephone Encounter - Tamie Stewart - 06/27/2019 12:18 PM CDT Pt calling again she is out of pain meds Telephone Encounter - Amanda Parkinson RN - 06/27/2019 10:05 AM CDT Patient was seen via telemedicine on 06/18/19, per notes, was to call back 06/25 to set up phone call with Dr. Griffiths either 06/26 or 06/27. Patient is calling to speak with Dr. Griffiths. He did not mention seeing someone else, Dr. Griffiths is scheduled for admin time today and tomorrow. Please advise. Patient needs refill of pain meds and wants to talk with Dr. Griffiths. documented in this encounter Plan of Treatment Upcoming Encounters Date Type Specialty Care Team Description 01/18/2022 Telemedicine Family Medicine Sebastian Griffiths MD [address] [place], [place] [address] (Wo rk) documented as of this encounter Visit Diagnoses Not on filedocumented in this encounter Care Teams Flight/Transport Nurse Relationship Specialty Start Date End Date Sebastian Griffiths MD PCP - General 10/24/[address] [place] [phone] documented as of this encounter
--- OUTSIDE RECORDS SUMMARY | 2021-12-09 21:31 | XMS_ITS | Encounter Summary ---
:1950 Author Organization [facility] Address [address] [place] [address] Care Team Providers Name Role Phone Sebastian Griffiths MD Primary Care Provider Reason for Visit Reason Comments Med Refill Encounter Details Date Type Department Care Team Description 05/06/2019 Refill SE Family Med Sebastian Griffiths MD Generalized anxiety [address] [facility] [address] [place] [address] [place] [address] [phone] (Wo rk) Social History Tobacco Use Types Packs/Day Years Used Date Current Every Day Smoker Cigarettes 0.5 40 Smokeless Tobacco: Never Used Alcohol Use [...] do you attend mandaen or Never 2020 quaker services? Do you [...] Telephone Encounter - Lindsay Ny LPN - 05/07/2019 7:15 AM CST Last visit in Provider Department: 03/12/2019 Upcoming appointment with Provider: 05/14/2019 Last Rx: 01/30/2019 # 90, 1 refill Requested Prescriptions Pending Prescriptions Disp Refills ??? LORazepam (ATIVAN) 1 MG tablet [Pharmacy Med Name: LORAZEPAM 1MG TABS] 90 tablet 1 Sig: TAKE ONE TABLET BY MOUTH THREE TIMES A DAY 12/24/2018 PHQ9: 12 / GAD7: 18 ER AIRCRAFT documented in this encounter Plan of Treatment Upcoming Encounters Date Type Specialty Care Team Description 01/18/2022 Telemedicine Family Medicine Sebastian Griffiths MD [address] [place], [place] [address] (Wo rk) documented as of this encounter Visit Diagnoses Diagnosis Generalized anxiety disorder documented in this encounter Care Teams Senior Db2 Systems Programmer Relationship Specialty Start Date End Date Sebastian Griffiths MD PCP - General 10/24/[address] [place] [phone] documented as of this encounter
--- OUTSIDE RECORDS SUMMARY | 2021-12-09 21:31 | XMS_ITS | Encounter Summary ---
:1950 Author Organization [facility] Address [address] [place] [address] Care Team Providers Name Role Phone Sebastian Griffiths MD Primary Care Provider Reason for Visit Reason Comments Med Refill Encounter Details Date Type Department Care Team Description 04/12/2019 Refill SE Family Med Sebastian Griffiths, Controlled type 2 diabetes m ellitus without complication, without long-term current use of insulin (HCC); [address] [facility] Hypertension, essential, benign; [place] [address] Anxiety; [phone] Pruritic condition; [place], [place] Gastroesophage al reflux disease without esophagitis; [address] [facility] health care Social History Tobacco Use Types Packs/Day Years [...] do you attend taoism or Never 2020 jehovah's witness services? Do [...] Telephone Encounter - Candice Werner LPN - 04/15/2019 10:17 AM STERILIZER OPERATOR Last visit in Provider Department: 03/12/2019 Upcoming appointment with Provider: 05/14/2019 Last Rx: Gabapentin 600 mg #270, 0 refills 12/10/2018 Amlodipine #90, 3 refills 03/22/2018 Hydroxyzine #90, 11 refills 03/29/2019 e-prescribed to [facility] [place] - [address] [facility], E-Prescribing Status: Receipt confirmed by pharmacy (03/29/2019 ??2:17 PM STERILIZER OPERATOR) Erroneous request. Disregard. Pantoprazole #90, 3 refills 04/06/2018 Multiple vitamin #100, 3 refills 03/27/2018 Requested Prescriptions Pending Prescriptions Disp Refills ??? gabapentin (NEURONTIN) 600 MG tablet [Pharmacy Med Name: GABAPENTIN 600MG TABS] 270 tablet 0 Sig: TAKE ONE TABLET BY MOUTH THREE TIMES A DAY --TAKE ALONG WITH 300MG CAPSULES ??? amLODIPine (NORVASC) 5 MG tablet [Pharmacy Med Name: AMLODIPINE BESYLATE 5MG TABS] 90 tablet 3 Sig: TAKE 1 TABLET BY MOUTH DAILY ??? hydrOXYzine (ATARAX) 25 MG tablet [Pharmacy Med Name: HYDROXYZINE HCL 25MG TABS] 90 tablet 0 Sig: TAKE ONE TABLET EVERY 8 HOURS IF NEEDED FOR ITCHING ??? pantoprazole (PROTONIX) 40 MG EC tablet [Pharmacy Med Name: PANTOPRAZOLE SODIUM 40MG TBEC] 90 tablet 3 Sig: TAKE 1 TABLET BY MOUTH DAILY ??? Multiple Vitamin (TAB-A-CORY) tablet [Pharmacy Med Name: TAB-A-CORY TABS] 100 each 3 Sig: TAKE 1 TABLET BY MOUTH EVERY MORNING Labs: Lab Results Component Value Date CREATININE 0.6 09/28/2018 BUN 13 09/28/2018 NA 139 09/28/2018 K 3.9 09/28/2018 CL 101 09/28/2018 CO2 31 (H) 09/28/2018 Vitals: BP Readings from Last 2 Encounters: 03/12/19 126/84 02/16/19 139/58 ILIZER OPERATOR documented in this encounter Plan of Treatment Upcoming Encounters Date Type Specialty Care Team Description 01/18/2022 Telemedicine Family Medicine Sebastian Griffiths MD [address] [place] [address] [place] [address] (Wo rk) documented as of this encounter Visit Diagnoses Diagnosis Controlled type 2 diabetes mellitus with out complication, without long-term current use of insulin (HCC) Hypertension, essential, benign Essential hypertension, benign Anxiety Anxiety state, unspecified Pruritic condition Unspecified pruritic disorder Gastroesophageal reflux disease without esophagitis Esophageal reflux Preventative health care Routine general medical examination at a health care facility documented in this encounter Care Teams Institutional Research Director Relationship Specialty Start Date End Date Sebastian Griffiths MD PCP - General 10/24/17 [address] [place], [place] [address] documented as of this encounter
--- OUTSIDE RECORDS SUMMARY | 2021-12-09 21:31 | XMS_ITS | Encounter Summary ---
:1950 Author Organization [facility] Address [address] [place] [address] Care Team Providers Name Role Phone Sebastian Griffiths MD Primary Care Provider Encounter Details Date Type Department Care Team Description 06/04/2019 Telephone Jimenez Prakash MD [address] [place] [address] Social History Tobacco Use Types Packs/Day Years [...] do you attend scientologist or Never 2020 pentecostalism services? Do you [...] Telemedicine Family Medicine Sebastian Griffiths MD [address] [place] [address] (Wo rk) documented as of this encounter Visit Diagnoses Not on filedocumented in this encounter Additional Health Concerns Infection Onset Date Last Indicated Resolved Time COVID-19 Rule Out 10/27/2019 10/27/2019 10/27/2019 11: 08 PM CDT documented as of this encounter Care Teams Console Manager Relationship Specialty Start Date End Date Sebastian Griffiths MD PCP - General 10/24/[address] [place] [id number] documented as of this encounter
--- OUTSIDE RECORDS SUMMARY | 2021-12-09 21:31 | XMS_ITS | Encounter Summary ---
:1950 Author Organization [facility] Address [address] [place] [address] Care Team Providers Name Role Phone Sebastian Griffiths MD Primary Care Provider Reason for Visit Reason Onset Date Comments Discharge 06/17/2019 Encounter Details Date Type Department Care Team Description 06/17/2019 Telephone Jimenez Prakash MD Discharge [address] [place] [address] Social History Tobacco Use Types [...] do you attend holiness or Never 2020 roman catholic services? Do [...] encounter Miscellaneous Notes Telephone Encounter - Shefali Rojas MA - 06/17/2019 9:27 AM CDT Merry notified Telephone Encounter - Jimenez Mendez MD - 06/17/2019 9:24 AM CDT Notify [facility] she is OK to be discharged Telephone Encounter - Shefali Rojas MA - 06/17/2019 9:13 AM CDT Merry from the [facility] called and they need an order for patient to discharge from [facility]. If there is no order she will leave anyway and they would have do an AMA form. Please advise documented in this encounter Plan of Treatment Upcoming Encounters Date Type Specialty Care Team Description 01/18/2022 Telemedicine Family Medicine Sebastian Griffiths MD [address] [place], [place] [address] (Wo rk) documented as of this encounter Visit Diagnoses Not on filedocumented in this encounter Care Teams High School Social Science Teacher Relationship Specialty Start Date End Date Sebastian Griffiths MD PCP - General 10/24/17 [address] [place], [place] [phone] documented as of this encounter
--- OUTSIDE RECORDS SUMMARY | 2021-12-09 21:31 | XMS_ITS | Encounter Summary ---
:1950 Author Organization [facility] Address [address] [place] [address] Care Team Providers Name Role Phone Sebastian Griffiths MD Primary Care Provider Encounter Details Date Type Department Care Team Description 06/07/2019 Telephone Sebastian Hernandez MD [address] [place] [address] 76 [place] [address] [phone] (Wo rk) Social History Tobacco Use Types [...] do you attend evangelical or Never 2020 hinduism services? Do you [...] Telephone Encounter - Shefali Rojas MA - 06/07/2019 12:16 PM CDT Faxed instructions to [facility] Nurse Telephone Encounter - Jimenez Mendez MD - 06/07/2019 11:52 AM CDT She can take 1-2 oxycodone 5 mg every 6 hours as needed severe pain but no more than 6 tablets in 24hours for 1 week starting this last Monday through Monday. Then she would go down to 4 oxycodone in 24 hours for the next week. Telephone Encounter - Virgil García RN - 06/07/2019 11:27 AM CDT [facility] needs instructions/directions for the oxycodone. documented in this encounter Plan of Treatment Upcoming Encounters Date Type Specialty Care Team Description 01/18/2022 Telemedicine Family Medicine Sebastian Griffiths MD [address] [place], [place] [address] (Wo rk) documented as of this encounter Visit Diagnoses Not on filedocumented in this encounter Care Teams Career Advisor Relationship Specialty Start Date End Date Sebastian Griffiths MD PCP - General 10/24/[address] [place] [phone] documented as of this encounter
--- OUTSIDE RECORDS SUMMARY | 2021-12-09 21:31 | XMS_ITS | Encounter Summary ---
:1950 Author Organization [facility] Address [address] [place] [address] Care Team Providers Name Role Phone Sebastian Griffiths MD Primary Care Provider Reason for Visit Reason Comments Med Refill Encounter Details Date Type Department Care Team Description 06/18/2019 Refill SE Family Med Sebastian Griffiths MD Generalized anxiety [address] [facility] [address] [place] [address] [place] [address] [phone] (Wo rk) Social History Tobacco Use Types [...] Notes Telephone Encounter - Tamie Stewart - 06/18/2019 2:05 PM CDT Pt calling again Telephone Encounter - Héctor Foster LPN - 06/18/2019 2:02 PM CDT Please advise request. Telephone Encounter - Marquita Cabral - 06/18/2019 12:54 PM CDT Pt called back and is wondering when the oxycodone was going to be sent to the pharmacy as her son needs to go to work. Telephone Encounter - Cole Vaughan - 06/18/2019 11:28 AM CDT Patient called and said that Dr. Griffiths was going to prescribe her some oxycodone after her telehealth visit today. Patient requesting the prescription be sent to the [facility] in [place], [place]. documented in this encounter Plan of Treatment Upcoming Encounters Date Type Specialty Care Team Description 01/18/2022 Telemedicine Family Medicine Sebastian Griffiths MD [address] [place], [place] [address] (Wo rk) documented as of this encounter Visit Diagnoses Diagnosis Generalized anxiety disorder documented in this encounter Care Teams Staffing Executive Relationship Specialty Start Date End Date Sebastian Griffiths MD PCP - General 10/24/[address] [place] [phone] documented as of this encounter
--- OUTSIDE RECORDS SUMMARY | 2021-12-09 21:31 | XMS_ITS | Encounter Summary ---
:1950 Author Organization [facility] Address [address] [place] [address] Care Team Providers Name Role Phone Sebastian Griffiths MD Primary Care Provider Reason for Visit Reason Comments Med Refill Encounter Details Date Type Department Care Team Description 04/24/2019 Refill SE Family Med Sebastian Griffiths MD Major depressive [address] [facility] [address] disorder, [place] [address] [place] [address] episode, moderate (HCC) [phone] (Wo rk) Social History Tobacco Use Types [...] Telephone Encounter - Jayshree Rodriguez MA - 04/25/2019 3:03 PM MERCHANDISE FLOW MANAGER Last visit in Provider Department: 03/12/2019 Upcoming appointment with Provider: 05/14/2019 Last Rx: 10/17/2018, #60, 5 refills Requested Prescriptions Pending Prescriptions Disp Refills ??? risperiDONE (RisperDAL) 2 MG tablet [Pharmacy Med Name: RISPERIDONE 2MG TABS] 60 tablet 5 Sig: TAKE ONE TABLET BY MOUTH TWICE A DAY HANDISE FLOW MANAGER documented in this encounter Plan of Treatment Upcoming Encounters Date Type Specialty Care Team Description 01/18/2022 Telemedicine Family Medicine Sebastian Griffiths MD [address] [place], [place] [address] (Wo rk) documented as of this encounter Visit Diagnoses Diagnosis Major depressive disorder, recurrent epi sode, moderate (HCC) Major depressive disorder, recurrent epi sode, moderate documented in this encounter Care Teams Tire Buffer Relationship Specialty Start Date End Date Sebastian Griffiths MD PCP - General 10/24/17 [address] [place], [place] [phone] documented as of this encounter
--- OUTSIDE RECORDS SUMMARY | 2021-12-09 21:31 | XMS_ITS | Encounter Summary ---
:1950 Author Organization [facility] Address [address] [place] [address] Care Team Providers Name Role Phone Sebastian Griffiths MD Primary Care Provider Reason for Visit Reason Comments Follow-up 2 month Encounter Details Date Type Department Care Team Description 03/12/2019 Office Visit [facility] Sebastian Griffiths, Controlled type 2 diabetes m ellitus without complication, without long-term current use of insulin (HCC) (Primary Dx); [address] [facility] Advanced care planning/counseling discus domonique; [place] [address] Degenerative disc disease, l umbar [phone] [place] [address] Social History Tobacco Use Types [...] do you attend christianity or Never 2020 yarsanism services? Do you [...] Sign Reading Time Taken Comments Blood Pressure 126/84 03/12/2019 10:18 AM KITCHEN AND COUNTER WORKER Pulse 112 03/12/2019 10:18 AM KITCHEN AND COUNTER WORKER Temperature 36.4 ??C (97.6 ??F) 03/12/2019 10:18 AM KITCHEN AND COUNTER WORKER Respiratory Rate 20 03/12/2019 10:18 AM KITCHEN AND COUNTER WORKER Oxygen Saturation 96% 03/12/2019 10:18 AM KITCHEN AND COUNTER WORKER Inhaled Oxygen Concentration - - Weight 103 kg (227 lb 4.7 oz) 03/12/2019 10:18 AM KITCHEN AND COUNTER WORKER Height - - Body Mass Index 37.82 02/16/2019 3:00 PM KITCHEN AND COUNTER WORKER documented in this encounter Patient Instructions Patient InstructionsSebastian Griffiths MD - 03/12/2019 10:20 AM CST I will send in the order for the scooter. HEN AND COUNTER WORKER documented in this encounter Progress Notes Sebastian Griffiths MD - 03/12/2019 10:20 AM CST Estab Patient Visit Subjective Patient ID: Rena Fan is a 69 y.o. female. Chief Complaint Patient presents with ??? Follow-up 2 month HPI Patient presents for follow-up of her chronic low back pain and bilateral degenerative joint diseaseof knees. She is in chronic pain and although she had a history of opioid abuse we decided to go ahead with 2 oxycodone per day to alleviate some of the more severe pain. She has found this beneficial.She recently had a ER visit due to angioedema from her losartan. She is off that medication now but her blood pressure still seems to be okay. Denies any new symptoms. She would like to have a flu shot. We reviewed her recent ER visits both for the angioedema and 1 4 knee pain. We did discuss that she seemed to move better when she was not knowingly observed. The following portions of the patient's chart were reviewed in this encounter and updated as appropriate: Tobacco Allergies Meds Problems Med Hx Surg Hx OB Status Fam Hx Soc Hx Review of Systems Denies any constipation or urinary retention. Objective Visit Vitals BP 126/84 (BP Location: Right arm, Patient Position: Sitting) Pulse (!) 112 Temp 36.4 ??C (97.6 ??F) (Temporal) Resp 20 Wt 103 kg (227 lb 4.7 oz) SpO2 96% BMI 37.82 kg/m?? OB Status Hysterectomy Smoking Status Current Every Day Smoker BSA 2.17 m?? Physical Exam General: Pleasant female in no acute distress. Answers questions appropriately. Moves around the exam room and hallway slowly with the aid of her wheeled walker. Assessment/Plan Diagnoses and all orders for this visit: Controlled type 2 diabetes mellitus without complication, without long-term current use of insulin (HCC) - Hemoglobin A1c; Future Advanced care planning/counseling discussion Degenerative disc disease, lumbar - oxyCODONE (ROXICODONE) 5 MG immediate release tablet; Take 1 tablet (5 mg total) by mouth every 4 (four) hours if needed for severe pain May use up to 2 a day maximum dose. - Mobility Devices Recheck in 2 months. HEN AND COUNTER WORKER documented in this encounter Plan of Treatment Upcoming Encounters Date Type Specialty Care Team Description 01/18/2022 Telemedicine Family Medicine Sebastian Griffiths MD [address] [place] [address] [phone] (Wo rk) documented as of this encounter Visit Diagnoses Diagnosis Controlled type 2 diabetes mellitus with out complication, without long-term current use of insulin (HCC) - Primary Advanced care planning/counseling discus domonique Degenerative disc disease, lumbar documented in this encounter Care Teams Production Support Manager Relationship Specialty Start Date End Date Sebastian Griffiths MD PCP - General 10/24/[address] [place] [address] [phone] documented as of this encounter
--- OUTSIDE RECORDS SUMMARY | 2021-12-09 21:31 | XMS_ITS | Encounter Summary ---
:1950 Author Organization [facility] Address [address] [place] [address] Care Team Providers Name Role Phone Sebastian Griffiths MD Primary Care Provider Reason for Visit Reason Onset Date Comments Incident Disclosure 04/18/2019 Encounter Details Date Type Department Care Team Description 04/18/2019 Telephone [facility] Sebastian Griffiths MD Incident Disclosure [address] [facility] [address] [place] [address] [place] [address] [phone] (Wo rk) Social History Tobacco Use Types [...] do you attend amish or Never 2020 mandaen services? Do you [...] Telephone Encounter - Sebastian Griffiths MD - 04/19/2019 8:35 PM CST Noted, oxycodone will be taken off her med list. TS DIRECTOR Telephone Encounter - Cat Randle - 04/18/2019 11:34 AM CST Lucrecia from [facility] is calling today to relay to the provider that the patient took 60 tabs of oxycodone in the course of 6 days. Each tab is 5mg. Patient broke into a locked box and took them. Patient first relayed she took two every 4 hours but the story has changed several times. Lucrecia relayed that she will fax over the disclosure as well. Thank you. TS DIRECTOR documented in this encounter Plan of Treatment Upcoming Encounters Date Type Specialty Care Team Description 01/18/2022 Telemedicine Family Medicine Sebastian Griffiths MD [address] [place] [address] [phone] (Wo rk) documented as of this encounter Visit Diagnoses Not on filedocumented in this encounter Care Teams Social Worker Aide Relationship Specialty Start Date End Date Sebastian Griffiths MD PCP - General 10/24/[address] [place] [phone] documented as of this encounter
--- OUTSIDE RECORDS SUMMARY | 2021-12-09 21:31 | XMS_ITS | Encounter Summary ---
:1950 Author Organization [facility] Address [address] [place] [address] Care Team Providers Name Role Phone Sebastian Griffiths MD Primary Care Provider Encounter Details Date Type Department Care Team Description 06/19/2019 Orders Only SE Family Med Sebastian Griffiths, Insomnia, unspecified [address] [facility] [place] [address] [address] [phone] [place] [address] Social History Tobacco Use Types [...] do you attend mormonism or Never 2020 congregational services? Do you [...] Telemedicine Family Medicine Sebastian Griffiths MD [address] [place] [address] [phone] (Wo rk) documented as of this encounter Visit Diagnoses Diagnosis Insomnia, unspecified type documented in this encounter Care Teams Drill Operator Relationship Specialty Start Date End Date Sebastian Griffiths MD PCP - General 10/24/17 7 [place] [address] documented as of this encounter
--- OUTSIDE RECORDS SUMMARY | 2021-12-09 21:31 | XMS_ITS | Encounter Summary ---
:1950 Author Organization [facility] Address [address] [place] [address] Care Team Providers Name Role Phone Sebastian Griffiths MD Primary Care Provider Reason for Visit Reason Onset Date Comments Med PA 06/19/2019 Zolpidem [id number] mg tablet oral 1 QHS Encounter Details Date Type Department Care Team Description 06/19/2019 Telephone [facility] Med Sebastian Griffiths, Med PA (Zolpidem [address] [facility] Qnmpgwwm71 mg tablet [place], [place] [id number] [address] oral 1 QHS ) [phone] [place], [place] [address] Social History Tobacco Use Types Packs/Day Years [...] do you attend scientologist or Never 2020 anabaptism services? Do you [...] Telephone Encounter - Magdalena Meadows LPN - 06/20/2019 10:34 AM CDT ANNALEE approved for #[id number] until 03/19/2020. Approval faxed to pharmacy Telephone Encounter - Magdalena Meadows LPN - 06/20/2019 7:13 AM CDT Zolpidem Tartrate 5MG tablets PA completed per CMM, sent to insurance plan Scott: [id number] [facility] Medicare ID:[id number] Telephone Encounter - Sebastian Griffiths MD - 06/19/2019 5:11 PM CDT Med adjusted, thanks. Telephone Encounter - Magdalena Meadows LPN - 06/19/2019 11:03 AM CDT Zolpidem Hmifybew96 mg tablet oral 1 QHS - discontinued: 12/12/2017 Railways Assistant received a fax to complete a PA request but do not see this drug as 'active' if Patient is gabriel on this drug, plesae update Medication list so PA can be imitated. Thanks. CMM: Scott: [id number]) - [id number] documented in this encounter Plan of Treatment Upcoming Encounters Date Type Specialty Care Team Description 01/18/2022 Telemedicine Family Medicine Sebastian Griffiths MD [address] [place], [place] [address] (Wo rk) documented as of this encounter Visit Diagnoses Not on filedocumented in this encounter Care Teams Information Technology Coordinator Relationship Specialty Start Date End Date Sebastian Griffiths MD PCP - General 10/24/17 [address] [place], [place] [phone] documented as of this encounter
--- OUTSIDE RECORDS SUMMARY | 2021-12-09 21:31 | XMS_ITS | Encounter Summary ---
:1950 Author Organization [facility] Address [address] [place] [address] Care Team Providers Name Role Phone Sebastian Griffiths MD Primary Care Provider Reason for Visit Reason Comments Follow-up Encounter Details Date Type Department Care Team Description 05/14/2019 Office Visit SE [facility] Sebastian Griffiths, Chronic pain syndrome (Prima ry Dx); [address] [facility] Advanced care planning/counseling discus domonique; [place] [address] Degenerative disc disease, l umbar; [phone] Type II diabetes mellitus with periphera l circulatory disorder (HCC); [place], [place] Generalized an xiety disorder; [address] Dysuria Social History Tobacco Use Types Packs/Day Years [...] Sign Reading Time Taken Comments Blood Pressure 126/76 05/14/2019 10:15 AM KNOBBER Pulse 120 05/14/2019 10:15 AM KNOBBER Temperature 36.9 ??C (98.5 ??F) 05/14/2019 10:15 AM KNOBBER Respiratory Rate 20 05/14/2019 10:15 AM KNOBBER Oxygen Saturation 96% 05/14/2019 10:15 AM KNOBBER Inhaled Oxygen Concentration - - Weight 104 kg (228 lb 6.3 oz) 05/14/2019 10:15 AM KNOBBER Height 165.1 cm (5' 5) 05/14/2019 10:15 AM KNOBBER Body Mass Index 38.01 05/14/2019 10:15 AM KNOBBER documented in this encounter Patient Instructions Patient InstructionsSebastian Griffiths MD - 05/14/2019 10:20 AM CST Call the nurses here in Family Medicine with the name and phone number of your nurse. No oxycodone prescribed today. I will send your blood test result. (A1c). I will call you with results of the urine check today. BER documented in this encounter Progress Notes Sebastian Griffiths MD - 05/14/2019 10:20 AM CST Estab Patient Visit Subjective Patient ID: Rena Fan is a 69 y.o. female. Chief Complaint Patient presents with ??? Follow-up HPI Patient presents for recheck of her chronic pain syndrome. Unfortunately she had an episode where she took several pain pills on her own volition several weeks ago. She states that she was not getting her pills filled with her nursing staff at that time. Now, 2 weeks ago she did get assigned to new nurses. She states she was feeling well on her oxycodone but has been out of them for a few days now. She was hospitalized for pneumonia last March. She has fully recovered. The following portions of the patient's chart were reviewed in this encounter and updated as appropriate: Tobacco Allergies Meds Problems Med Hx Surg Hx OB Status Fam Hx Soc Hx Review of Systems Denies any constipation but has had some dysuria over the past couple days and would like to give a urine sample. Objective Visit Vitals BP 126/76 (BP Location: Right arm, Patient Position: Sitting) Pulse (!) 120 Temp 36.9 ??C (98.5 ??F) (Temporal) Resp 20 Ht 1.651 m (5' 5) Wt 104 kg (228 lb 6.3 oz) SpO2 96% BMI 38.01 kg/m?? OB Status Hysterectomy Smoking Status Current Every Day Smoker BSA 2.18 m?? Physical Exam Female in no acute distress. Quite upset that she is not getting a prescription for oxycodone today.Otherwise displays no unusual pain behaviors. She ambulates with the help of a walker. Assessment/Plan Diagnoses and all orders for this visit: Chronic pain syndrome Advanced care planning/counseling discussion Degenerative disc disease, lumbar Type II diabetes mellitus with peripheral circulatory disorder (HCC) Generalized anxiety disorder - LORazepam (ATIVAN) 1 MG tablet; Take 1 tablet (1 mg total) by mouth 3 (three) times a day Dysuria - Urinalysis with reflex microscopic (clean catch); Future Patient Instructions Call the nurses here in Family Medicine with the name and phone number of your nurse. No oxycodone prescribed today. I will send your blood test result. (A1c). I will call you with results of the urine check today. BER documented in this encounter Plan of Treatment Upcoming Encounters Date Type Specialty Care Team Description 01/18/2022 Telemedicine Family Medicine Sebastian Griffiths MD [address] [place] [phone] (Wo rk) documented as of this encounter Visit Diagnoses Diagnosis Chronic pain syndrome - Primary Advanced care planning/counseling discus domonique Degenerative disc disease, lumbar Type II diabetes mellitus with periphera l circulatory disorder (HCC) Type II or unspecified type diabetes giuseppe litus with peripheral circulatory disorders, not stated as uncontrolled Generalized anxiety disorder Dysuria documented in this encounter Care Teams Synthetic Gem Press Operator Relationship Specialty Start Date End Date Sebastian Griffiths MD PCP - General 10/24/[address] [place] [phone] documented as of this encounter
--- OUTSIDE RECORDS SUMMARY | 2021-12-09 21:31 | XMS_ITS | Encounter Summary ---
:1950 Author Organization [facility] Address [address] [place] [address] Care Team Providers Name Role Phone Sebastian Griffiths MD Primary Care Provider Reason for Visit Reason Comments Med Refill Encounter Details Date Type Department Care Team Description 03/06/2019 Refill SE Family Med Sebastian Griffiths MD Controlled type 2 [address] [facility] [address] [place] [address] [place] [address] without complication, (Wo rk) without long-term current u se of insulin (HCC) Social History Tobacco Use Types Packs/Day Years Used Date Current Every Day Smoker Cigarettes 1 40 Smokeless Tobacco: Never Used Alcohol Use [...] do you attend samaritan or Never 2020 judaism services? Do you [...] Telephone Encounter - Guillermina Moran MA - 03/11/2019 8:01 AM CST Last visit in Provider Department: 06/26/18 Upcoming appointment with Provider: 03/12/2019 Last Rx: 12/10/18 # 90, no refill Requested Prescriptions Pending Prescriptions Disp Refills ??? JANUVIA 100 MG tablet [Pharmacy Med Name: JANUVIA 100MG TABS] 90 tablet 0 Sig: TAKE ONE TABLET BY MOUTH EVERY MORNING Component Latest Ref Rng & Units 06/26/2018 Hemoglobin A1C 4.0 - 5.6 % A1C 5.9 (H) Component Latest Ref Rng & Units 06/26/2018 Microalbumin,mg/day 0.0 - 16.6 mg/L <7.0 Creatinine, Urine mg/dL 60 Microalb/Creat Ratio 0 - 24 mg/g see below Component Latest Ref Rng & Units 09/28/2018 Total Protein 6.3 - 8.2 g/dL 7.6 Albumin, Serum 3.5 - 5.0 g/dL 4.2 Total Bilirubin 0.1 - 1.0 mg/dL 1.2 (H) AST 8 - 43 U/L 43 Alkaline Phosphatase 38 - 128 U/L 96 ALT (SGPT) 0 - 34 U/L 32 Sodium 135 - 145 mEq/L 139 Potassium 3.5 - 5.1 mEq/L 3.9 Chloride 98 - 107 mEq/L 101 CO2 22 - 29 mmol/L 31 (H) BUN 5 - 25 mg/dL 13 Creatinine 0.4 - 1.2 mg/dL 0.6 Glucose 70 - 100 mg/dL 119 (H) Calcium, Total,S 8.4 - 10.2 mg/dL 10.0 Fasting? Unknown Component Latest Ref Rng & Units 06/26/2018 Cholesterol 0 - 199 mg/dL 159 Triglycerides 0 - 149 mg/dL 238 (A) HDL 40 - 60 mg/dL 53 LDL Calculated 0 - 99 mg/dL 58 Most Recent Value 09/13/2018 - 03/12/2019 BP 139/58 02/16/2019 CTOR EHS documented in this encounter Plan of Treatment Upcoming Encounters Date Type Specialty Care Team Description 01/18/2022 Telemedicine Family Medicine Sebastian Griffiths MD [address] [place] [phone] (Wo rk) documented as of this encounter Visit Diagnoses Diagnosis Controlled type 2 diabetes mellitus with out complication, without long-term current use of insulin (HCC) documented in this encounter Care Teams Cushion Gum Applicator Relationship Specialty Start Date End Date Sebastian Griffiths MD PCP - General 10/24/17 7 [place] [address] documented as of this encounter
--- OUTSIDE RECORDS SUMMARY | 2021-12-09 21:31 | XMS_ITS | Encounter Summary ---
:1950 Author Organization [facility] Address [address] [place] [address] Care Team Providers Name Role Phone Sebastian Griffiths MD Primary Care Provider Encounter Details Date Type Department Care Team Description 05/24/2019 Orders Only Jimenez Prakash Periprosthetic fracture [address] [facility] Jane Wagner MD around [facility] prosthetic right knee [place], [place] joint, subs equent [address] encounter (Primary Dx) [phone] Social History Tobacco Use Types Packs/Day Years [...] do you attend lutheran or Never 2020 episcopal services? Do you belong to any clubs [...] Telemedicine Family Medicine Sebastian Griffiths MD [address] [place] [address]04 (Wo rk) documented as of this encounter Visit Diagnoses Diagnosis Periprosthetic fracture around internal prosthetic right knee joint, subsequent encounter - Primary documented in this encounter Care Teams Vehicle Glass Technician Relationship Specialty Start Date End Date Sebastian Griffiths MD PCP - General 10/24/17 [address] [place] [address] documented as of this encounter
--- OUTSIDE RECORDS SUMMARY | 2021-12-09 21:31 | XMS_ITS | Encounter Summary ---
:1950 Author Organization [facility] Address [address] [place] [address] Care Team Providers Name Role Phone Sebastian Griffiths MD Primary Care Provider Reason for Visit Reason Onset Date Comments Client Services 06/19/2019 Resource/Referral Encounter Details Date Type Department Care Team Description 06/19/2019 Telephone [facility] [address] [facility] Services Services DYE WORKER (Resource/Referral) [address] [place] [address] [address] [place] [address] [place], [place] [phone] Social History Tobacco Use Types Packs/Day Years [...] do you attend adventist or Never 2020 gnosticism services? Do you [...] this encounter Miscellaneous Notes Telephone Encounter - CLIFF Streeter - 06/24/2019 2:52 PM CDT Phoned patient this afternoon, patient and grant writer discussed home health services. Patient stated shereceives weekly home health aide services. [facility] writer will forward request to scheduling team. No further [facility] or [facility] at this [facility]. Telephone Encounter - CLIFF Streeter - 06/19/2019 9:23 AM CDT Received referral regarding upcoming scooter assessment and home health services. Phoned patient on this date, left message with [facility] contact information. Will await return call or attempt to contactpatient again within the next few business days. documented in this encounter Plan of Treatment Upcoming Encounters Date Type Specialty Care Team Description 01/18/2022 Telemedicine Family Medicine Sebastian Griffiths MD [address] [place] [phone] (Wo rk) documented as of this encounter Visit Diagnoses Not on filedocumented in this encounter Care Teams Hand I Blocker Relationship Specialty Start Date End Date Sebastian Griffiths MD PCP - General 10/24/[address] [place] [phone] documented as of this encounter
--- OUTSIDE RECORDS SUMMARY | 2021-12-09 21:31 | XMS_ITS | Encounter Summary ---
:1950 Author Organization [facility] Address [address] [place] [address] Care Team Providers Name Role Phone Sebastian Griffiths MD Primary Care Provider Encounter Details Date Type Department Care Team Description 06/03/2019 Orders Only Jimenez Prakash Periprosthetic fracture [address] [facility] Jane Wagner MD around internal [place] prosthetic right knee [place], [place] joint, subs equent [id number] encounter [phone] Social History Tobacco Use Types Packs/Day Years [...] do you attend anabaptism or Never 2020 spiritism services? Do you [...] 01/18/2022 Telemedicine Family Medicine Sebastian Griffiths MD [address] [place] [phone] (Wo rk) documented as of this encounter Visit Diagnoses Diagnosis Periprosthetic fracture around internal prosthetic right knee joint, subsequent encounter documented in this encounter Care Teams Gear Tooth Lapping Machine Operator Relationship Specialty Start Date End Date Sebastian Griffiths MD PCP - General 10/24/17 [address] [place] [address] documented as of this encounter
--- OUTSIDE RECORDS SUMMARY | 2021-12-09 21:31 | XMS_ITS | Encounter Summary ---
:1950 Author Organization [facility] Address [address] [place] [address] Care Team Providers Name Role Phone Sebastian Griffiths MD Primary Care Provider Encounter Details Date Type Department Care Team Description 06/13/2019 Orders Only Jimenez rPakash Chronic pain syndrome [address] [facility] Jane Wagner MD [place], [place] [address] Social History Tobacco Use Types [...] do you attend amish or Never 2020 worship services? Do you [...] 01/18/2022 Telemedicine Family Medicine Sebastian Griffiths MD [address] [place], [place] [address] (Wo rk) documented as of this encounter Visit Diagnoses Diagnosis Chronic pain syndrome documented in this encounter Care Teams Yard Truck Driver Relationship Specialty Start Date End Date Sebastian Griffiths MD PCP - General 10/24/17 [address] [place] [address] documented as of this encounter
--- OUTSIDE RECORDS SUMMARY | 2021-12-09 21:31 | XMS_ITS | Encounter Summary ---
:1950 Author Organization [facility] Address [address] [place] [address] Care Team Providers Name Role Phone Sebastian Griffiths MD Primary Care Provider Reason for Referral Consultation (Routine) - Closed Specialty Diagnoses / Procedures Referred By Referred To Contact Contact Physical Therapy / Diagnoses Primary osteoarthritis of both knees Sebastian Griffiths, Rehabilitation [address] [place] [address] Referral ID Status Reason Start Date Expiration Date Visits V isits Requested Authorized [id number] Closed Specialty 04/18/2019 03/19/2020 99 99 Services Required ER TECHNICIAN Reason for Visit Reason Onset Date Comments Mobility equipment 04/18/2019 Encounter Details Date Type Department Care Team Description 04/18/2019 Telephone [facility] Ying Stanford Mobility equipment [address] [place] [address], [place] [address] 210 [facility] [phone] [place] [address] Social History Tobacco Use Types [...] do you attend uatsdin or Never 2020 synagogue services? Do you belong to any clubs [...] Miscellaneous Notes Telephone Encounter - Tae Livingston LPN - 04/24/2019 2:52 PM CST Patient is scheduled for a PT eval on 05/06/2019. ER TECHNICIAN Telephone Encounter - Sebastian Griffiths MD - 04/18/2019 6:15 PM CST Order signed. Thanks. ER TECHNICIAN Telephone Encounter - IVELISSE Murdock - 04/18/2019 9:36 AM BURNER TECHNICIAN Received fax from [employer] regarding DME for power scooter. Fax stated, The notes from office visit dated 03/12/19 do not discuss Medicare criteria for a scooter to be covered. [employer] faxed a list of items needed in order for insurance to cover power scooter. First,patient needs to have PT/OT evaluation for a power scooter. Patient has office visit with provider on 05/14/19. Referral pended. Fax placed in provider's inbox for review. Please advise. ER TECHNICIAN documented in this encounter Plan of Treatment Upcoming Encounters Date Type Specialty Care Team Description 01/18/2022 Telemedicine Family Medicine Sebastian Griffiths MD [address] [place] [address] 904 (Wo rk) Scheduled Referrals Name Type Priority Associated Diagnoses Order S chedule Ambulatory referral Outpatient Referral Routine Primary osteoa rthritis Ordered: to Physical Therapy of both knees 020 documented as of this encounter Visit Diagnoses Diagnosis Degenerative disc disease, lumbar - Prim sudhakar Primary osteoarthritis of both knees documented in this encounter Care Teams Cruise Director Relationship Specialty Start Date End Date Sebastian Griffiths MD PCP - General 10/24/17 [address] [place] [address] documented as of this encounter
--- OUTSIDE RECORDS SUMMARY | 2021-12-09 21:31 | XMS_ITS | Encounter Summary ---
:1950 Author Organization [facility] Address [address] [place] [address] Care Team Providers Name Role Phone Sebastian Griffiths MD Primary Care Provider Reason for Visit Reason Onset Date Comments Med Refill 06/18/2019 Encounter Details Date Type Department Care Team Description 06/18/2019 Telephone [facility] Med Sebastian Griffiths MD Med Refill [address] [facility] [address] [place] [address] [place] [address] [phone] (Wo rk) Social History Tobacco Use Types [...] do you attend episcopal or Never 2020 hoahaoism services? Do you [...] this encounter Miscellaneous Notes Telephone Encounter - Dana Tolentino LPN - 06/19/2019 8:35 AM CDT Spoke with patient. Let her know order for Oxy was sent yesterday for her. Telephone Encounter - Sebastian Griffiths MD - 06/18/2019 9:45 PM CDT Done. Telephone Encounter - Mili Rivera MA - 06/18/2019 4:23 PM CDT Duplicate message Telephone Encounter - Re Lorenz - 06/18/2019 3:39 PM CDT Patient called again with regards to the noted medication request. Telephone Encounter - Tamie Terry - 06/18/2019 2:05 PM CDT Duplicate note Telephone Encounter - Tamie Stewart - 06/18/2019 2:03 PM CDT Pt states that in appt today you were to give her 30 more days of Oxy please advise. 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
--- OUTSIDE RECORDS SUMMARY | 2021-12-09 21:31 | XMS_ITS | Encounter Summary ---
:[address] [facility] Address [address] [place] [address] Care Team Providers Name Role Phone Sebastian Griffiths MD Primary Care Provider Reason for Visit Reason Onset Date Comments Med Refill 06/13/2019 Encounter Details Date Type Department Care Team Description 06/13/2019 Refill [place], Generalized anxiety [address] [place] [address] [place], [place] [address] Social History Tobacco Use [...] do you attend alevism or Never 2020 sabianism services? Do you [...] this encounter Miscellaneous Notes Telephone Encounter - Tania Ascencio RN - 06/13/2019 3:55 PM CDT LORazepam (ATIVAN) 0.5 MG tablet - 1 tab BID PRN anxiety #20 tablets, no refills, last ordered 06/05/2019 Patient has been taking this medication 1-2 times a day. PSYCHIATRIC staff states her anxiety has been elevated as she has been decreasing her oxycodone. documented in this encounter Plan of Treatment Upcoming Encounters Date Type Specialty Care Team Description 01/18/2022 Telemedicine Family Medicine Sebastian Griffiths MD [address] [place], [place] [address] (Wo rk) documented as of this encounter Visit Diagnoses Diagnosis Generalized anxiety disorder documented in this encounter Care Teams Brush Sander Relationship Specialty Start Date End Date Sebastian Griffiths MD PCP - General 10/24/[address] [place] [id number] documented as of this encounter
--- OUTSIDE RECORDS SUMMARY | 2021-12-09 21:31 | XMS_ITS | Encounter Summary ---
:1950 Author Organization [facility] Address [address] [place] [address] Care Team Providers Name Role Phone Sebastian Griffiths MD Primary Care Provider Encounter Details Date Type Department Care Team Description 05/14/2019 Travel Social History Tobacco Use Types Packs/Day [...] do you attend faith or Never 2020 mu-ism services? Do you [...] on filedocumented in this encounter Care Teams Displayer Merchandise Relationship Specialty Start Date End Date Sebastian Griffiths MD PCP - General 10/24/17 [address] [place], [place] [phone] documented as of this encounter
--- OUTSIDE RECORDS SUMMARY | 2021-12-09 21:31 | XMS_ITS | Encounter Summary ---
:1950 Author Organization [facility] Address [address] [place] [address] Care Team Providers Name Role Phone Sebastian Griffiths MD Primary Care Provider Reason for Visit Reason Comments Med Refill Encounter Details Date Type Department Care Team Description 06/03/2019 Refill [place] Jimenez Mendez, Periprosthetic fracture [address] [facility] Jane WEST around internal prosthetic [place] right knee joint, [place], [place] [address] subsequent encounter [phone] Social History Tobacco Use Types Packs/Day Years [...] do you attend scientology or Never 2020 moravian services? Do you [...] this encounter Miscellaneous Notes Telephone Encounter - Catarina Guerrier LPN - 06/03/2019 3:56 PM CDT Called the shelter to clarify. She is still taking 2 tablets 4 times per day per [facility] orders. Last refill was written for 1 tablet every 6 hours. Please advise on refill as she is completely out andhas been very rude to the [facility] staff. documented in this encounter Plan of Treatment Upcoming Encounters Date Type Specialty Care Team Description 01/18/2022 Telemedicine Family Medicine Sebastian Griffiths MD [address] [place], [place] [address] (Wo rk) documented as of this encounter Visit Diagnoses Diagnosis Periprosthetic fracture around internal prosthetic right knee joint, subsequent encounter documented in this encounter Care Teams Guide Setter Relationship Specialty Start Date End Date Sebastian Griffiths MD PCP - General 10/24/17 [address] [place], [place] [address] documented as of this encounter
--- OUTSIDE RECORDS SUMMARY | 2021-12-09 21:31 | XMS_ITS | Encounter Summary ---
:1950 Author Organization [facility] Address [address] [place] [address] Care Team Providers Name Role Phone Sebastian Griffiths MD Primary Care Provider Reason for Visit Reason Onset Date Comments Med Refill Med Refill 07/01/2019 Encounter Details Date Type Department Care Team Description 06/27/2019 Refill [facility] Sebastian Griffiths MD Chronic pain syndrome [address] [facility] [address] [place] [address] [place] [address] [phone] (Wo rk) Social History Tobacco Use Types [...] do you attend catholic or Never 2020 gnosticist services? Do you [...] Telephone Encounter - Ev Rice RN - 06/27/2019 3:26 PM CDT Patient called and is requesting Dr Griffiths fill this prescription as soon as possible. Due to to Covid-19 it is his off week. Last visit on 06/18/2019 telehealth Next visit is not scheduled but per the visit plan: She will call me next June 25 to set up a phone call to evaluate how she is doing on either June 26 or . She does not need any other refills at this time. Dr. Griffiths, Please advise. She states she is having pain in new places she didn't know she had before. documented in this encounter Plan of Treatment Upcoming Encounters Date Type Specialty Care Team Description 01/18/2022 Telemedicine Family Medicine Sebastian Griffiths MD [address] [place], [place] [address] (Wo rk) documented as of this encounter Visit Diagnoses Diagnosis Chronic pain syndrome documented in this encounter Care Teams Manager Global Communications Relationship Specialty Start Date End Date Sebastian Griffiths MD PCP - General 10/24/[address] [place] [phone] documented as of this encounter
--- OUTSIDE RECORDS SUMMARY | 2021-12-09 21:31 | XMS_ITS | Encounter Summary ---
:1950 Author Organization [facility] Address [address] [place] [address] Care Team Providers Name Role Phone Sebastian Griffiths MD Primary Care Provider Reason for Visit Reason Comments Headache Encounter Details Date Type Department Care Team Description 06/18/2019 Telemedicine [facility] Sebastian Griffiths MD [address] [facility] [address] [place] [address] [place] [address] [phone] (Wo rk) Social History Tobacco Use Types [...] do you attend taoist or Never 2020 evangelical services? Do you belong to any clubs [...] documented as of this encounter Progress Notes Sebastian Griffiths MD - 06/18/2019 9:20 AM CDT Telephone Visit Subjective Patient ID: Rena Fan is a 69 y.o. female patient of Sebastian Griffiths MD, who is called [facility] from [facility] to discuss Chief Complaint Patient presents with ??? Headache Patient is on the phone today with patient and Dr. Griffiths HPI Patient endured a right knee prosthetic fracture on May 15. Was hospitalized and treated at [facility]. She was then discharged to the [facility] for convalescence. She had physical therapy and Occupational Therapy there. Now 2 days ago she just returned home. She has not been assigned her home health care nurse yet. Anticipates that that will be next week. She is currently on oxycodone 10 mg 4 times a day. She continues on Ativan at a reduced dose of half a milligram 3 times a day but she takes it only as needed for anxiety. Her gabapentin was decreased from 900 mg 3 times daily to 600 mg 3 times daily. The following portions of the patient's chart were reviewed in this encounter and updated as appropriate: Tobacco Allergies Meds Problems Med Hx Surg Hx OB Status Fam Hx Soc Hx Health Maintenance Due Topic Date Due ??? [facility] Annual Wellness 01/01/1970 ??? Diabetic Foot Exam 03/27/2019 ??? Glaucoma Screening 67+ Yr 06/15/2019 Review of Systems HEENT, Eyes, respiratory, cardio, GI, genitourinary, endocrine, musculoskeletal, neurologic and psychiatric history were reviewed and negative except as per HPI. Objective RESULTS REVIEWED TODAY: [facility] notes EXAM: Psych: Patient is conversant and pleasant over the phone. She endorses euthymic mood and is in pain from her healing right knee. Rest of exam unable to be completed due to phone interview. Assessment/Plan Problem List Items Addressed This Visit None I will refill 10 days of her oxycodone 10 mg per dose but at a reduced schedule from 4 times a day down to 3 times a day as her knee fracture heals. She can continue at this time with her Ativan half amilligram 3 times a day as needed. She will call me next June 25 to set up a phone call to evaluate how she is doing on either June 26 or . She does not need any other refills at this time. The patient has consented to be consulted [...] Time spent during this phone call was 15 minutes. documented in this encounter Plan of Treatment Upcoming Encounters Date Type Specialty Care Team Description 01/18/2022 Telemedicine Family Medicine Sebastian Griffiths MD [address] [place], [place] [address] (Wo rk) documented as of this encounter Visit Diagnoses Not on filedocumented in this encounter Care Teams Assistant Professor Of Biology Relationship Specialty Start Date End Date Sebastian Griffiths MD PCP - General 10/24/[address] [place] [phone] documented as of this encounter
--- OUTSIDE RECORDS SUMMARY | 2021-12-09 21:31 | XMS_ITS | Encounter Summary ---
:1950 Author Organization [facility] Address [address] [place] [address] Care Team Providers Name Role Phone Sebastian Griffiths MD Primary Care Provider Encounter Details Date Type Department Care Team Description 06/04/2019 Orders Only Jimenez Prakash Periprosthetic fracture [address] [facility] Jane Wagner MD around internal [place] prosthetic right knee [place], [place] joint, subs equent [address] encounter [phone] Social History Tobacco Use Types Packs/Day Years [...] or relatives? How often do you attend sikh or Never 2020 voodoo services? Do you belong to any clubs or No 05/18/2020 organizations such as sikh groups, unions, fraternal or athletic groups, or [...] 01/18/2022 Telemedicine Family Medicine Sebastian Griffiths MD [address] [place] [address] (Wo rk) documented as of this encounter Visit Diagnoses Diagnosis Periprosthetic fracture around internal prosthetic right knee joint, subsequent encounter documented in this encounter Care Teams Restaurant And Bar Manager Relationship Specialty Start Date End Date Sebastian Griffiths MD PCP - General 10/24/17 [address] [place] [address] documented as of this encounter
--- OUTSIDE RECORDS SUMMARY | 2021-12-09 21:31 | XMS_ITS | Encounter Summary ---
:1950 Author Organization [facility] Address [address] [place] [address] Care Team Providers Name Role Phone Sebastian Griffiths MD Primary Care Provider Encounter Details Date Type Department Care Team Description 06/04/2019 Office Visit Jimenez Prakash Periprosthetic fracture arou nd internal prosthetic left knee joint, subsequent encounter (Primary Dx); [address] [place] [address] Jane Wagner MD [facility] anxiety disorder; [place] Borderline personality disor marium ([facility]); [place], [place] Type II aaron betes mellitus with peripheral circulatory disorder ([facility]); [address] Chronic pain syndrome [phone] Social History Tobacco Use Types Packs/Day Years [...] do you attend sabianism or Never 2020 anglican services? Do you [...] documented as of this encounter Progress Notes Jimenez Mendez MD - 06/04/2019 8:40 AM CDT Rx written Jimenez Mendez MD - 06/04/2019 8:40 AM CDT Shelter Visit Subjective Patient ID: Rena Fan is a 69 y.o. female. HPI this is a 9-year-old female who is seen for nursing visit after admission to the [facility]. Patient was hospitalized 05/15- 05/22/2019. Patient did sustain a right knee periprosthetic fracture. Patient was advised that she would benefit from therapy and was sent to the [facility]. Patient does have history of chronic pain and does have a history of polysubstance abuse. The patient had been discharged on oxycodone. Patient also has been using as needed lorazepam. Patient has beentaking her oxycodone 5 mg 2 every 6 hours by the clock. It has been advised that the patient not be d ischarged on this particular medication. Patient otherwise does have a number of other medical problems which is receiving treatment. Patient is continue to take her long list of medicines as listed on the medicine flow sheet. Review of Systems patient ports she does have left knee pain. Patient ports it is worse after therapy. Patient otherwise reports no inappropriate shortness of breath or chest discomfort. Objective Physical Exam examination patient reveals a female who appears to be in no acute distress. Patient'stemperature 96.6, pulse 90, respirations 18, blood pressure 127/83 and her O2 sats are 97%. Her neck reveals no carotid bruits or thrills per lungs are sound clear and heart and abdomen otherwise felt be negative. Patient does have hypersensitivity upon palpating the left knee. She has no significant dependent edema. I did talk to patient both implications of her present oxycodone therapy. She was advised that she would not be [facility] on this particular medication. Patient was advised that we will go ahead and decrease the oxycodone 25 %/week. This week coming up she will be able to take 6 tablets/day and the following week for tablets etc. She will continue with therapy. Assessment/Plan Diagnoses and all orders for this visit: Periprosthetic fracture around internal prosthetic left knee joint, subsequent encounter Generalized anxiety disorder - LORazepam (ATIVAN) 0.5 MG tablet; Take 1 tablet (0.5 mg total) by mouth 2 (two) times a day if needed for anxiety for up to 10 days Borderline personality disorder (HCC) Type II diabetes mellitus with peripheral circulatory disorder (HCC) Chronic pain syndrome Plan: Patient otherwise advised to continue to take the same medicines and care plan was reviewed. Patient also will need to be weaned off her lorazepam if possible. Patient not a candidate for any lab testing on the basis of today's visit. She certainly let us know if anything else changes acutely during the interim. Cc: [facility] fax #[phone] documented in this encounter Plan of Treatment Upcoming Encounters Date Type Specialty Care Team Description 01/18/2022 Telemedicine Family Medicine Sebastian Griffiths MD [address] [place], [place] [address] (Wo rk) documented as of this encounter Visit Diagnoses Diagnosis Periprosthetic fracture around internal prosthetic left knee joint, subsequent encounter - Primary Generalized anxiety disorder Borderline personality disorder (HCC) Borderline personality disorder Type II diabetes mellitus with periphera l circulatory disorder (HCC) Type II or unspecified type diabetes giuseppe litus with peripheral circulatory disorders, not stated as uncontrolled Chronic pain syndrome documented in this encounter Care Teams Breakfast Bar Attendant Relationship Specialty Start Date End Date Sebastian Griffiths MD PCP - General 10/24/[address] [place] [address] documented as of this encounter
--- OUTSIDE RECORDS SUMMARY | 2021-12-09 21:31 | XMS_ITS | Encounter Summary ---
:1950 Author Organization [facility] Address [address] [place] [address] Care Team Providers Name Role Phone Sebastian Griffiths MD Primary Care Provider Encounter Details Date Type Department Care Team Description 06/12/2019 Refill Sebastian Hernandez MD Chronic pain syndrome [address] (Primary Dx) [place] [address] [place], [place] [address] [phone] Social History Tobacco Use Types Packs/Day Years [...] do you attend yarsanism or Never 2020 sabianism services? Do you [...] this encounter Miscellaneous Notes Addendum Note - Tania Teran RN - 06/12/2019 3:28 PM CDT Addended by: TANIA TERAN on: 06/12/2019 03:28 PM Modules accepted: Orders Telephone Encounter - Tania Teran RN - 06/12/2019 3:26 PM CDT Raul ROSARIO at [facility] states the pharmacy has not received the order for this medication. It was sent to [facility], but should have gone to [facility]. [facility] is called and prescription is cancelled. Please send order to [facility]. Telephone Encounter - Virgil García RN - 06/12/2019 11:27 AM CDT Verbal order given to [facility] nurse for the oxycodone taper. Telephone Encounter - Bouchra Willoughby PA-C - 06/12/2019 11:07 AM CDT Can you pls let snf know I sent a script with sig for taper dose -week one: 5 mg qid prn pain -week two: 5 mg tid prn pain -week three: 5 mg bid prn pain -final script pending OV Telephone Encounter - Virgil García RN - 06/12/2019 9:00 AM CDT Raul ROSARIO at [facility] states: Rena saw Dr. Mendez on 06/04/2019. He gave an order for her oxycodone 5mg 1- 2 tabs every 6 hoursPRN. Not to exceed 6 tablets in 24hours. He wants her oxycodone to decrease to taper her off them. We need a new order for oxycodone. In his notes it says to decrease the oxycodone 25%/week. documented in this encounter Plan of Treatment Upcoming Encounters Date Type Specialty Care Team Description 01/18/2022 Telemedicine Family Medicine Sebastian Griffiths MD [address] [place] [address] (Wo rk) documented as of this encounter Visit Diagnoses Diagnosis Chronic pain syndrome - Primary documented in this encounter Care Teams Educational Director Relationship Specialty Start Date End Date Sebastian Griffiths MD PCP - General 10/24/[address] [place] [address] documented as of this encounter
--- OUTSIDE RECORDS SUMMARY | 2021-12-09 21:31 | XMS_ITS | Encounter Summary ---
:1950 Author Organization [facility] Address [address] [place] [address] Care Team Providers Name Role Phone Sebastian Griffiths MD Primary Care Provider Reason for Visit Reason Comments Med Refill Encounter Details Date Type Department Care Team Description 05/29/2019 Refill [place] Jimenez Mendez, Periprosthetic fracture [address] [facility] Jane WEST around internal prosthetic [place] right knee joint, [place], [place] [address] subsequent encounter [phone] Social History Tobacco Use Types Packs/Day Years [...] do you attend yarsanism or Never 2020 evangelical services? Do you [...] Telephone Encounter - Catarina Guerrier LPN - 05/30/2019 11:04 AM CDT [facility] patient is in need of this as she is completely out. documented in this encounter Plan of Treatment Upcoming Encounters Date Type Specialty Care Team Description 01/18/2022 Telemedicine Family Medicine Sebastian Griffiths MD [address] [place], [place] [address] (Wo rk) documented as of this encounter Visit Diagnoses Diagnosis Periprosthetic fracture around internal prosthetic right knee joint, subsequent encounter documented in this encounter Care Teams Snowsport Instructor Relationship Specialty Start Date End Date Sebastian Griffiths MD PCP - General 10/24/17 [address] [place], [place] [phone] documented as of this encounter
--- OUTSIDE RECORDS SUMMARY | 2021-12-09 21:31 | XMS_ITS | Encounter Summary ---
:1950 Author Organization [facility] Address [address] [place] [address] Care Team Providers Name Role Phone Sebastian Griffiths MD Primary Care Provider Reason for Visit Reason Comments Med Refill Encounter Details Date Type Department Care Team Description 04/08/2019 Refill SE Family Med Sebastian Griffiths MD Degenerative disc [address] [facility] [address] [place], [place] [address] [place] [address] [phone] (Wo rk) Social History Tobacco Use Types [...] Telephone Encounter - Mili Rivera MA - 04/08/2019 4:26 PM CST Oxycodone 5 mg, 60 tablets, 0 refills, done on 03/12/19. ANOLOGIST Telephone Encounter - Cole Vaughan - 04/08/2019 12:54 PM CST Patient called to request a refill of her oxycodone. Patient uses [facility] in [place]. ANOLOGIST documented in this encounter Plan of Treatment Upcoming Encounters Date Type Specialty Care Team Description 01/18/2022 Telemedicine Family Medicine Sebastian Griffiths MD [address] [place] [phone] (Wo rk) documented as of this encounter Visit Diagnoses Diagnosis Degenerative disc disease, lumbar documented in this encounter Care Teams Drawbench Operator Relationship Specialty Start Date End Date Sebastian Griffiths MD PCP - General 10/24/[address] [place] [address] [phone] documented as of this encounter
--- OUTSIDE RECORDS SUMMARY | 2021-12-09 21:31 | XMS_ITS | Encounter Summary ---
:1950 Author Organization [facility] Address [address] [place] [address] Care Team Providers Name Role Phone Sebastian Griffiths MD Primary Care Provider Reason for Referral Consultation (Routine) - Closed Specialty Diagnoses / Procedures Referred By Contact Refer red To Contact Family Medicine Diagnoses Chronic obstructive pulmonary disease, unspecified COPD type (HCC) Sebastian Griffiths MD Care Coordination [address] [place] [address] [place] [address] Fax: Referral ID Status Reason Start Date Expiration Date Visits V isits Requested Authorized [id number] Closed Specialty 05/14/2019 03/19/2020 99 99 Services Required Scheduling Instructions Staff from this department will contact the patient to schedule an appointment. ONAL CLERK Encounter Details Date Type Department Care Team Description 05/14/2019 Orders Only Care Coordination Marcella Durham, Chronic obstructive [address] [facility] RN pulmonary disease, [place] [address] unspecified COPD type [phone] (HCC) (Primary Dx) [place] [address] Social History Tobacco Use Types [...] do you attend restoration or Never 2020 jain services? Do you [...] Telemedicine Family Medicine Sebastian Griffiths MD [address] [place], [place] [phone] (Wo rk) Scheduled Referrals Name Type Priority Associated Diagnoses Order [facility] Ambulatory referral Outpatient Referral Routine Chronic obstru ctive Ordered: to Care Coordination pulmonary disease, 0 05/14/2019 unspecified COPD type (HCC) documented as of this encounter Visit Diagnoses Diagnosis Chronic obstructive pulmonary disease, u nspecified COPD type (HCC) - Primary documented in this encounter Care Teams Corrugated Fastener Driver Relationship Specialty Start Date End Date Sebastian Griffiths MD PCP - General 10/24/17 [address] [place], [place] [phone] documented as of this encounter
--- OUTSIDE RECORDS SUMMARY | 2021-12-09 21:31 | XMS_ITS | Encounter Summary ---
:1950 Author Organization [facility] Address [address] [place] [address] Care Team Providers Name Role Phone Sebastian Griffiths MD Primary Care Provider Reason for Visit Reason Onset Date Comments Med Refill 03/04/2019 Encounter Details Date Type Department Care Team Description 03/04/2019 Refill SE Family Med Sebastian Griffiths MD Degenerative disc [address] [facility] [address] disease, [place] [address] [place] [address] [phone] (Wo rk) Social History Tobacco Use Types [...] or relatives? How often do you attend orthodoxy or Never 2020 restorationist services? Do you belong to any clubs or No 05/18/2020 organizations such as orthodoxy groups, unions, fraternal or athletic groups, or [...] Telephone Encounter - Mili Rivera MA - 03/05/2019 8:32 AM CST Patient called back, providers note informed. Per patient okay ER TYING MACHINE OPERATOR Telephone Encounter - Tae Livingston LPN - 03/05/2019 8:10 AM CST Left message for patient to call back. ER TYING MACHINE OPERATOR Telephone Encounter - Sebastian Griffiths MD - 03/04/2019 6:26 PM CST Upon review of recent visit at [place], I am not refilling her oxycodone until I see her next week. ER TYING MACHINE OPERATOR Telephone Encounter - Martha Salazar RN - 03/04/2019 4:22 PM CST Patient requesting oxycodone Last fill 02/11/19 for #60 tabs, 0 refills Last visit 12/24/18 CSA done 12/18/2012 ER TYING MACHINE OPERATOR Telephone Encounter - Cole Vaughan - 03/04/2019 3:43 PM CST Patient called and requested a refill of her oxyCODONE (ROXICODONE) 5 MG immediate release tablet. Patient also requested a call from Dr. Griffiths because she stated that she is in pain. ER TYING MACHINE OPERATOR documented in this encounter Plan of Treatment Upcoming Encounters Date Type Specialty Care Team Description 01/18/2022 Telemedicine Family Medicine Sebastian Griffiths MD [address] [place] [phone] (Wo rk) documented as of this encounter Visit Diagnoses Diagnosis Degenerative disc disease, lumbar documented in this encounter Additional Health Concerns Infection Onset Date Last Indicated Resolved Time COVID-19 Rule Out 10/27/2019 10/27/2019 10/27/2019 11: 08 PM CDT documented as of this encounter Care Teams Lean Manager Relationship Specialty Start Date End Date Sebastian Griffiths MD PCP - General 10/24/[address] [place] [address] [phone] (work) documented as of this encounter
--- OUTSIDE RECORDS SUMMARY | 2021-12-09 21:31 | XMS_ITS | Encounter Summary ---
:[address] [facility] Address [address] [place] [address] Care Team Providers Name Role Phone Sebastian Griffiths MD Primary Care Provider Reason for Visit Reason Onset Date Comments medication prior auth. 04/01/2019 hydrOXYzine HCl 2 5MG tablets Encounter Details Date Type Department Care Team Description 04/01/2019 Telephone [facility] Sebastian Griffiths, medication prior auth. [address] [facility] (hydrOXYzine HCl 25MG [place] [address] [address] tablets) [phone] [place], [place] [id number] Social History Tobacco Use Types Packs/Day Years [...] do you attend presybeterian or Never 2020 mormon services? Do you belong to any clubs [...] Telephone Encounter - Magdalena Meadows LPN - 04/02/2019 9:49 AM CST PA approved until 03/19/2020. Approval faxed to pharmacy COPTER TECHNICIAN Telephone Encounter - Magdalena Meadows LPN - 04/02/2019 8:09 AM CST Appeals letter has been faxed to insurance at: COPTER TECHNICIAN Telephone Encounter - Sebastian Griffiths MD - 04/01/2019 3:26 PM CST I dictated a letter, signed, on my desk that could be sent to her insurance carrier. COPTER TECHNICIAN Telephone Encounter - Tamie Shore MA - 04/01/2019 2:50 PM CST Received fax from plan asking for the reason for continued use of this drug. Plan needs an explanation of the specific benefit established from the drug and how that benefit outweighs the potential risk. Documentation attesting that the pt will be monitored for side effects often and that counseling has and will continue to take place outlining the risks and potential side effects of this drug will need to be provided. A formulary alternative was given which is: -Levocetirizine COPTER TECHNICIAN Telephone Encounter - Cat Adair MA - 04/01/2019 11:08 AM CST hydrOXYzine HCl 25MG tablets BIN: [id number] PCN: [id number] GROUP: PLAN: [facility]-Medicaid PHONE: ID: [id number] PA completed per [facility], sent to plan. Scott: [id number] COPTER TECHNICIAN documented in this encounter Plan of Treatment Upcoming Encounters Date Type Specialty Care Team Description 01/18/2022 Telemedicine Family Medicine Sebastian Griffiths MD [address] [place] [address] (Wo rk) documented as of this encounter Visit Diagnoses Not on filedocumented in this encounter Care Teams Dairy Cattle Farm Worker Relationship Specialty Start Date End Date Sebastian Griffiths MD PCP - General 10/24/[address] [place] [phone] documented as of this encounter
--- OUTSIDE RECORDS SUMMARY | 2021-12-09 21:31 | XMS_ITS | Encounter Summary ---
:1950 Author Organization [facility] Address [address] [place] [address] Care Team Providers Name Role Phone Sebastian Griffiths MD Primary Care Provider Reason for Visit Reason Comments Med Refill Encounter Details Date Type Department Care Team Description 05/01/2019 Refill SE Family Med Sebastian Griffiths MD Insomnia, unspecified type; [address] Major depressive disorder, recurrent epi sode, moderate (HCC) [place] [address] [place] [address] [phone] (Wo rk) Social History Tobacco Use Types [...] do you attend episcopalian or Never 2020 jehovah's witness services? Do [...] Telephone Encounter - Jayshree Rodriguez MA - 05/02/2019 10:35 AM MUSICAL INSTRUMENT MAKER Last visit in Provider Department: 08/14/18 Upcoming appointment with Provider: 05/14/2019 Last Rx: zolpidem (AMBIEN) 5 MG tablet 12/10/18, #30, 5 refills DULoxetine (CYMBALTA) [address] capsule 10/17/2018, #60, 5 refills Requested Prescriptions Pending Prescriptions Disp Refills ??? zolpidem (AMBIEN) 5 MG tablet [Pharmacy Med Name: ZOLPIDEM TARTRATE 5MG TABS] 30 tablet 5 Sig: TAKE ONE TABLET BY MOUTH AT BEDTIME NEEDED FOR SLEEP ??? DULoxetine (CYMBALTA) [address] capsule [Pharmacy Med Name: DULOXETINE HCL 60MG CPEP] 60 capsule 5 Sig: TAKE TWO CAPSULES BY MOUTH EVERY DAY CAL INSTRUMENT MAKER documented in this encounter Plan of Treatment Upcoming Encounters Date Type Specialty Care Team Description 01/18/2022 Telemedicine Family Medicine Sebastian Griffiths MD [address] [place], [place] [phone] (Wo rk) documented as of this encounter Visit Diagnoses Diagnosis Insomnia, unspecified type Major depressive disorder, recurrent epi sode, moderate (HCC) Major depressive disorder, recurrent epi sode, moderate documented in this encounter Care Teams Fruit Harvester Relationship Specialty Start Date End Date Sebastian Griffiths MD PCP - General 10/24/[address] [place] [address] [phone] documented as of this encounter
--- OUTSIDE RECORDS SUMMARY | 2021-12-09 21:31 | XMS_ITS | Encounter Summary ---
:[address] [facility] Address [address] [place] [address] Care Team Providers Name Role Phone Sebastian Griffiths MD Primary Care Provider Reason for Visit Reason Comments Med Refill Encounter Details Date Type Department Care Team Description 03/27/2019 Refill SE Family Med Sebastian Griffiths MD Anxiety; [address] [facility] [address] [place] [address] [place] [address] [phone] (Wo rk) Social History Tobacco Use Types [...] do you attend mormonism or Never 2020 mandaeism services? Do you [...] Telephone Encounter - Tamie Kuhn MA - 03/29/2019 10:27 AM CST Last visit in Provider Department: 03/12/2019 Upcoming appointment with Provider: 05/14/2019 Last Rx: 07/29/2018- 90 with 3 refills Requested Prescriptions Pending Prescriptions Disp Refills ??? hydrOXYzine (ATARAX) 25 MG tablet [Pharmacy Med Name: HYDROXYZINE HCL 25MG TABS] 90 tablet 0 Sig: TAKE ONE TABLET EVERY 8 HOURS IF NEEDED FOR ITCHING RATORY TECHNICIAN documented in this encounter Plan of Treatment Upcoming Encounters Date Type Specialty Care Team Description 01/18/2022 Telemedicine Family Medicine Sebastian Griffiths MD [address] [place], [place] [phone] (Wo rk) documented as of this encounter Visit Diagnoses Diagnosis Anxiety Anxiety state, unspecified Pruritic condition Unspecified pruritic disorder documented in this encounter Care Teams Trash Truck Driver Relationship Specialty Start Date End Date Sebastian Griffiths MD PCP - General 10/24/[address] [place] [address] [phone] documented as of this encounter
--- OUTSIDE RECORDS SUMMARY | 2021-12-09 21:31 | XMS_ITS | Encounter Summary ---
:1950 Author Organization [facility] Address [address] [place] [address] Care Team Providers Name Role Phone Sebastian Griffiths MD Primary Care Provider Encounter Details Date Type Department Care Team Description 05/24/2019 Telephone Sebastian Hernandez MD [address] [place] [address] 559 76 [place] [address] [phone] (Wo rk) Social History Tobacco Use Types [...] do you attend bahai or Never 2020 hoahaoism services? Do you [...] for the very basics like Not h johntahan at all 06/23/2020 food, housing, medical care, [...] this encounter Miscellaneous Notes Telephone Encounter - Virgil García RN - 05/24/2019 4:12 PM CST Prescription sent to [facility] AINER MAKER Telephone Encounter - Virgil García RN - 05/24/2019 3:48 PM CST Nita, a nurse at [facility], calls requesting a short term refill of Oxycodone 5mg tablets 2 tablets Q6hr PRN. Rena was admitted to [facility] on 05/22/2019. She will be having some PT for her right knee post surgery. Her surgeon prescribed 30 tablets of oxycodone and she has been getting her 2 tablets every 6hours, as well as tylenol 650mg Q6PRN, and ativan prn. Nita states that patient will run out of her oxy either Monday night or Monday morning. She is would like a refill to get her through until [facility] provider could assess her next week. Rena does have history of alcohol dependence and hasn't hada drink in a few days. Nurse also states that Rena has not been using cigarettes or nicotine patch. She is worried that Rena will have some sort of withdrawal over the weekend. Please advise if this is something you would be willing to do. AINER MAKER documented in this encounter Plan of Treatment Upcoming Encounters Date Type Specialty Care Team Description 01/18/2022 Telemedicine Family Medicine Sebastian Griffiths MD [address] [place], [place] [phone] (Wo rk) documented as of this encounter Visit Diagnoses Not on filedocumented in this encounter Care Teams Cabinetmaker Apprentice Relationship Specialty Start Date End Date Sebastian Griffiths MD PCP - General 10/24/[address] [place] [address] [phone] documented as of this encounter
--- OUTSIDE RECORDS SUMMARY | 2021-12-09 21:32 | XMS_ITS | Encounter Summary ---
:1950 Author Organization [facility] Address [address] [place] [id number] Care Team Providers Name Role Phone Sebastian Griffiths MD Primary Care Provider Reason for Visit Reason Comments Throat Problem Encounter Details Date Type Department Care Team Description 09/28/2018 Emergency [facility] Emergen [facility] Room Neck pain (Primary Dx) [address] [place] [phone] Social History Tobacco Use Types Packs/Day Years Used Date Current Every Day Smoker Cigarettes 1 Smokeless Tobacco: Never Used Alcohol Use Standard Drinks/Week Comments Yes 0 (1 standard drink = 0.6 oz [...] do you attend mandaen or Never 2020 [employer] services? Do you [...] Sign Reading Time Taken Comments Blood Pressure 127/74 09/28/2018 2:56 PM CDT Pulse 74 09/28/2018 2:56 PM CDT Temperature 36.2 ??C (97.2 ??F) 09/28/2018 11:19 AM CDT Respiratory Rate 20 09/28/2018 2:56 PM CDT Oxygen Saturation 99% 09/28/2018 2:56 PM CDT Inhaled Oxygen Concentration - - Weight 102 kg (224 lb 13.9 oz) 09/28/2018 11:19 AM CDT Height 165 cm (5' 4.96) 09/28/2018 11:19 AM CDT Body Mass Index 37.47 09/28/2018 11:19 AM CDT documented in this encounter Discharge Instructions Discharge InstructionsNoelle Vargas APRN, ROB - 09/28/2018 2:23 PM CDT Take tylenol for pain as needed. Drink plenty of fluids and follow up with your primary provider next week. AttachmentsThe following attachments cannot be sent through Care Everywhere.Pain Without a Known Cause ([place])documented in this encounter Medications at Time of Discharge Medication Sig Dispensed Refills Start Date End Date docusate sodium Take 100 mg by mouth 0 (COLACE) 100 MG capsule 2 (two) times a day if needed dorzolamide-timolol Administer 1 drop 10 mL 11 9 (COSOPT) 22.3-6.8 MG/ML into both eyes 2 ophthalmic (two) times a day solutionIndications: Primary open angle glaucoma (POAG) of both eyes, severe stage ketorolac (ACULAR) 0.5 Administer 1 drop 0 2018 % ophthalmic solution into affected eye(s) 4 times daily Misc. Devices glucometer strips See 0 10/29/2015 (RECONSTITUBE) misc Instructions, testing strips-please fill brand covered by insurance., 100 each, 5 Refill(s) Misc. Devices flex pen needles See 0 10/08/2015 (RECONSTITUBE) misc Instructions, flex pen needles, 100 each, 5 Refill(s) Misc. Devices lancet See 0 10/08/2015 (RECONSTITUBE) misc Instructions, lancets, 100 each, 5 Refill(s) Misc. Devices glucometer See 0 10/08/2015 (RECONSTITUBE) misc Instructions, glucose monitor, 1 each, 0 Refill(s) nicotine (NICODERM CQ) Place 1 patch on the 30 patch 2 04/2018 7 MG/24HRIndications: skin 1 (one) time Tobacco dependency each day at the same time prednisoLONE acetate Administer 1 drop 0 06/23/19 19 (PRED FORTE) 1 % into affected eye(s) ophthalmic suspension 4 times daily sodium chloride (OCEAN) Administer 2 sprays 0 0.65 % nasal spray into each nostril 3 (three) times a day if needed for congestion Sofosbuvir-Velpatasvir Take 1 tablet by 0 (Epclusa) 400-100 MG mouth 1 (one) time tablet each day timolol (TIMOPTIC) 0.5 Administer 1 drop 0 % ophthalmic solution into affected eye(s) 2 times daily Nebulizers (NEBULIZER 1 Units every 4 1 each 1 9 05/17/2019 COMPRESSOR) (four) hours if miscIndications: needed (dyspnea) Last Uncomplicated asthma, face to face unspecified asthma 05/17/2018 severity, unspecified whether persistent Respiratory Therapy 1 kit every 4 (four) 1 each 1 201805/17/2019 Supplies hours if needed (NEBULIZER/ADULT MASK) (dyspnea) Last face kitIndications: to face 05/17/2018 Uncomplicated asthma, unspecified asthma severity, unspecified whether persistent ACETAMINOPHEN EXTRA TAKE TWO CAPLETS BY 100 tablet 11 019 02/20/2019 STRENGTH 500 MG MOUTH THREE TIMES A tabletIndications: DAY NEEDED FOR Osteoarthritis of both PAIN knees, unspecified osteoarthritis type amLODIPine (NORVASC) 5 Take 1 tablet (5 mg 90 tablet 3 05/201804/15/2019 MG tabletIndications: total) by mouth 1 Hypertension, (one) time each day essential, benign ASPIRIN LOW DOSE 81 MG CHEW ONE TABLET BY 100 tablet 4 09/1812/24/2019 chewable MOUTH DAILY tabletIndications: Controlled type 2 diabetes mellitus without complication, without long-term current use of insulin ([facility]) BASAGLAR KWIKPEN 100 INJECT 20 UNITS 15 mL 5 04/06/2018 07/22/2019 UNIT/ML SUBCUTANEOUSLY AT 5PM injectionIndications: Controlled type 2 diabetes mellitus without complication, without long-term current use of insulin ([facility]) Cetirizine HCl 10 MG Take 10 mg by mouth 1 0 12/03/2020 capsule (one) time each day if needed diclofenac (VOLTAREN) 1 Apply topically 2 100 g 1 03/2706/01/2021 % topical (two) times a day To gelIndications: Acute affected shoulder pain of right shoulder pain DULoxetine (CYMBALTA) TAKE TWO CAPSULES 60 capsule 5 019 10/17/[address] DAILY capsuleIndications: Major depressive disorder, recurrent episode, moderate ([facility]) EPINEPHrine (EPIPEN) INJECT NEEDED FOR 1 Syringe 1 04/0605/18/2020 0.3 MG/0.3ML injection A BEE STING syringeIndications: Bee sting allergy fluticasone (FLONASE) Administer 1 spray 0 201712/07/2018 50 MCG/ACT nasal spray into each nostril 2 (two) times a day gabapentin (NEURONTIN) TAKE ONE CAPSULE BY 90 capsule 5 04/201812/04/2019 300 MG MOUTH THREE TIMES A capsuleIndications: DAY Chronic pain syndrome gabapentin (NEURONTIN) TAKE 1 TABLET BY 90 tablet 0 019 10/17/2018 600 MG MOUTH THREE TIMES A tabletIndications: DAY ALONG WITH 300MG Controlled type 2 DOSE diabetes mellitus without complication, without long-term current use of insulin ([facility]) hydrOXYzine (ATARAX) 25 Take 1 tablet (25 mg 90 tablet 3 12/04/2019 MG tabletIndications: total) by mouth every Anxiety, Pruritic 8 (eight) hours if condition needed for itching ipratropium-albuterol USE ONE (1) VIAL VIA 180 mL 3 03/2010/05/2020 (DUO-NEB) 0.5-2.5 mg/3 NEBULIZER UP TO EVERY mL nebulizer 4 HOURS NEEDED solutionIndications: WHEEZING. Chronic obstructive pulmonary disease, unspecified COPD type ([facility]) JANUVIA 100 MG TAKE 1 TABLET BY 90 tablet 0 08/31/201811/18 tabletIndications: MOUTH EVERY MORNING Controlled type 2 diabetes mellitus without complication, without long-term current use of insulin ([facility]) latanoprost (XALATAN) Administer 1 drop 0 12/22/2020 0.005 % ophthalmic into affected eye(s) solution lidocaine (XYLOCAINE) 5 Apply topically Apply 0 1 05/08/2016 12/03/2020 % ointment small bead and rub in skin 2-4 times a day over painful back area. Wash off hands. lisinopril-hydroCHLOROt Take 1 tablet by 30 tablet 11 201805/18/2020 hiazide mouth 1 (one) time (PRINZIDE,ZESTORETIC) each day 10-12.5 MG per tabletIndications: Hypertension, essential, benign LORazepam (ATIVAN) 1 MG TAKE 1 TABLET BY 90 tablet 2 201812/07/2018 tabletIndications: MOUTH THREE TIMES A Generalized anxiety DAY disorder losartan (COZAAR) 50 MG TAKE 1 TABLET BY 90 tablet 3 201810/10/2018 tabletIndications: MOUTH EVERY MORNING Hypertension, (FOR BLOOD PRESSURE) essential, benign methocarbamol (ROBAXIN) TAKE 1 TABLET BY 120 tablet 3 201803/04/2019 500 MG MOUTH TWICE DAILY tabletIndications: NEEDED FOR MUSCLE Acute pain of right SPASMS shoulder moxifloxacin (VIGAMOX) Administer 1 drop 0 201812/03/2020 0.5 % ophthalmic into affected eye(s) solution 4 (four) times a day Right eye Multiple Vitamin TAKE 1 TABLET BY 100 each 3 03/27/2018 (TAB-A-CORY) MOUTH EVERY MORNING tabletIndications: Preventative health care Oxymetazoline HCl 0 06/13/2017 020 (NASAL SPRAY NA) pantoprazole (PROTONIX) TAKE 1 TABLET BY 90 tablet 3 201804/15/2019 40 MG EC MOUTH DAILY tabletIndications: Gastroesophageal reflux disease without esophagitis risperiDONE (RisperDAL) TAKE 1 TABLET BY 60 tablet 3 201810/17/2018 2 MG tabletIndications: MOUTH TWICE DAILY Major depressive disorder, recurrent episode, moderate (HCC) STOOL SOFTENER/LAXATIVE TAKE TWO TABLETS BY 180 tablet 3 10/201809/30/2019 50-8.6 MG per MOUTH AT BEDTIME tabletIndications: Chronic constipation VENTOLIN HFA 108 (90 INHALE 1 PUFF BY 18 g 5 9 06/01/2021 Base) MCG/ACT MOUTH NEEDED inhalerIndications: Chronic obstructive pulmonary disease, unspecified COPD type (HCC) zolpidem (AMBIEN) 5 MG TAKE 1 TABLET BY 90 tablet 1 019 12/05/2018 tabletIndications: MOUTH AT NIGHT Insomnia, unspecified NEEDED FOR SLEEP type documented as of this encounter ED Notes Warren Garcia RN - 09/28/2018 3:13 PM CDT supervisor ship maintenance services called for assistance with patient's transportation home following discharge. Warren Garcia RN 09/28/18 1514 Warren Garcia RN - 09/28/2018 11:22 AM CDT Patient woke up this morning with throat pain and swelling. No complaints of SOB at time of arrival to ED. Noelle Vargas APRN, LUMBER CARRIER - 09/28/2018 11:06 AM CDT HPI Chief Complaint Patient presents with ??? Throat Problem Presents to the ED via ambulance with complaints of neck swelling and pain that started this morningat 3am. She denies fever, chills, no new medications, soaps, lotions, detergents etc. No SOB, wheezing or CP. Patient History Patient History Allergies Allergen Reactions ??? Bee Venom Anaphylaxis ??? Aspirin Rash ??? Nsaids ??? Penicillins Rash ??? Tramadol ??? Varenicline Past Medical History: Diagnosis Date ??? Acid [...] Migraine ??? Type 2 diabetes mellitus, controlled ([facility]) Past Surgical History: Procedure Laterality Date ??? APPENDECTOMY ??? BREAST BIOPSY Left ??? CHOLECYSTECTOMY ??? COLONOSCOPY 2014 ??? ESOPHAGOGASTRODUODENOSCOPY 2014 ??? KNEE ARTHROPLASTY Right 2007 ??? KNEE ARTHROPLASTY Right 09/05/2017 ??? ORIF WRIST FRACTURE 2008 ??? ROTATOR CUFF REPAIR W/ DISTAL CLAVICLE EXCISION 2006 ??? SEPTOPLASTY 1999 ??? TOTAL ABDOMINAL HYSTERECTOMY W/ BILATERAL SALPINGOOPHORECTOMY Family History Problem Relation Age of Onset ??? Glaucoma Mother ??? Stomach cancer Father 39 ??? Colon cancer Maternal Grandfather ??? Glaucoma Brother ??? Blindness Brother ??? Glaucoma Maternal Grandmother Social History Tobacco Use ??? Smoking status: Current Every Day Smoker Packs/day: 1.00 Types: Cigarettes ??? Smokeless tobacco: Never Used Substance Use Topics ??? Alcohol use: Yes Frequency: Never ??? Drug use: Not Currently Review of Systems Review of Systems Constitutional: Negative. HENT: Negative for congestion, rhinorrhea, sore throat, trouble swallowing and voice change. Eyes: Negative. Respiratory: Negative. Cardiovascular: Negative. Gastrointestinal: Negative. Physical Exam ED Triage Vitals [09/28/18 1119] Temp Heart Rate Resp BP 36.2 ??C (97.2 ??F) 91 20 117/80 SpO2 Temp Source Heart Rate Source Patient Position 93 % Temporal Monitor Lying BP Location FiO2 (%) Left arm -- Physical Exam Constitutional: She is oriented to person, place, and time. She appears well- developed and well-nourished. No distress. Appears sleepy during the exam, she denies sleepiness. HENT: Head: Normocephalic and atraumatic. Right Ear: Tympanic membrane, external ear and ear canal normal. Left Ear: Tympanic membrane, external ear and ear canal normal. Nose: Nose normal. Mouth/Throat: Oropharynx is clear and moist. Wears full dentures Eyes: Pupils are equal, round, and reactive to light. Conjunctivae are normal. Neck: Fullness and tenderness to palpation submandibular area, unsure if this is abnormal for her. She states its more swollen than normal. Cardiovascular: Normal rate, regular rhythm and normal heart sounds. Pulmonary/Chest: Effort normal and breath sounds normal. Abdominal: Soft. Bowel sounds are normal. Lymphadenopathy: She has no cervical adenopathy. Neurological: She is oriented to person, place, and time. Skin: Skin is warm and dry. [place] Coma Scale Score: 14 Procedures No results found. Labs Reviewed CBC WITH AUTO DIFFERENTIAL - Abnormal Result Value WBC 9.6 RBC 4.56 Hemoglobin 12.9 Hematocrit 40.9 Platelets 368 MCV 89.7 MCH 28.4 MCHC 31.6 (*) RDW 13.2 Neutrophils 59.3 Absolute Neutrophils 5.7 Lymphocytes % 29.7 Absolute Lymphocytes 2.9 Monocytes % 6.9 Monocytes Absolute 0.7 Eosinophils 3.3 Absolute Eosinophils 0.3 Basophils 0.8 Absolute Basophils 0.1 COMPREHENSIVE METABOLIC PANEL - Abnormal Total Protein 7.6 Albumin, Serum 4.2 Total Bilirubin 1.2 (*) AST 43 Alkaline Phosphatase 96 ALT (SGPT) 32 Sodium 139 Potassium 3.9 Chloride 101 CO2 31 (*) BUN 13 Creatinine 0.6 Glucose 119 (*) Calcium, Total,S 10.0 Fasting? Unknown GLOMERULAR FILTRATION RATE GFR >60 GFR >60 ED Course & MDM MDM Number of Diagnoses or Management Options Neck pain: Diagnosis management comments: Labs and CT of neck are negative. Patient was sleeping comfortably after her CT exam. Will discharge to home. Follow Up Sebastian Griffiths MD [address] [place] [phone] As needed Patient's Medications New Prescriptions No medications on file Previous Medications ACETAMINOPHEN EXTRA STRENGTH 500 MG TABLET TAKE TWO CAPLETS BY MOUTH THREE TIMES A DAY NEEDED FOR PAIN AMLODIPINE (NORVASC) 5 MG TABLET Take 1 tablet (5 mg total) by mouth 1 (one) time each day ASPIRIN LOW DOSE 81 MG CHEWABLE TABLET CHEW ONE TABLET BY MOUTH DAILY BASAGLAR KWIKPEN 100 UNIT/ML INJECTION INJECT 20 UNITS SUBCUTANEOUSLY AT 5PM CETIRIZINE HCL 10 MG CAPSULE Take 10 mg by mouth 1 (one) time each day if needed DICLOFENAC (VOLTAREN) 1 % TOPICAL GEL Apply topically 2 (two) times a day To affected shoulder pain DOCUSATE SODIUM (COLACE) 100 MG CAPSULE Take 100 mg by mouth 2 (two) times a day if needed DORZOLAMIDE-TIMOLOL (COSOPT) 22.3-6.8 MG/ML OPHTHALMIC SOLUTION Administer 1 drop into both eyes 2 (two) times a day DULOXETINE (CYMBALTA) [address] CAPSULE TAKE TWO CAPSULES DAILY EPINEPHRINE (EPIPEN) 0.3 MG/0.3ML INJECTION SYRINGE INJECT NEEDED FOR A BEE STING FLUTICASONE (FLONASE) 50 MCG/ACT NASAL SPRAY Administer 1 spray into each nostril 2 (two) times a day GABAPENTIN (NEURONTIN) 300 MG CAPSULE TAKE ONE CAPSULE BY MOUTH THREE TIMES A DAY GABAPENTIN (NEURONTIN) 600 MG TABLET TAKE 1 TABLET BY MOUTH THREE TIMES A DAY ALONG WITH 300MG DOSE HYDROXYZINE (ATARAX) 25 MG TABLET Take 1 tablet (25 mg total) by mouth every 8 (eight) hours if needed for itching IPRATROPIUM-ALBUTEROL (DUO-NEB) 0.5-2.5 MG/3 ML NEBULIZER SOLUTION USE ONE (1) VIAL VIA NEBULIZER UP TO EVERY 4 HOURS NEEDED WHEEZING. JANUVIA 100 MG TABLET TAKE 1 TABLET BY MOUTH EVERY MORNING KETOROLAC (ACULAR) 0.5 % OPHTHALMIC SOLUTION Administer 1 drop into affected eye(s) 4 times daily LATANOPROST (XALATAN) 0.005 % OPHTHALMIC SOLUTION Administer 1 drop into affected eye(s) LIDOCAINE (XYLOCAINE) 5 % OINTMENT Apply topically Apply small bead and rub in skin 2-4 times a dayover painful back area. Wash off hands. LISINOPRIL-HYDROCHLOROTHIAZIDE (PRINZIDE,ZESTORETIC) 10-12.5 MG PER TABLET Take 1 tablet by mouth 1(one) time each day LORAZEPAM (ATIVAN) 1 MG TABLET TAKE 1 TABLET BY MOUTH THREE TIMES A DAY LOSARTAN (COZAAR) 50 MG TABLET TAKE 1 TABLET BY MOUTH EVERY MORNING (FOR BLOOD PRESSURE) METHOCARBAMOL (ROBAXIN) 500 MG TABLET TAKE 1 TABLET BY MOUTH TWICE DAILY NEEDED FOR MUSCLE SPASMS MOXIFLOXACIN (VIGAMOX) 0.5 % OPHTHALMIC SOLUTION Administer 1 drop into affected eye(s) 4 (four) times a day Right eye MULTIPLE VITAMIN (TAB-A-CORY) TABLET TAKE 1 TABLET BY MOUTH EVERY MORNING NEBULIZERS (NEBULIZER COMPRESSOR) MISC 1 Units every 4 (four) hours if needed (dyspnea) Last face to face 05/17/2018 NICOTINE (NICODERM CQ) 7 MG/24HR Place 1 patch on the skin 1 (one) time each day at the same time OXYMETAZOLINE HCL (NASAL SPRAY NA) PANTOPRAZOLE (PROTONIX) 40 MG EC TABLET TAKE 1 TABLET BY MOUTH DAILY PREDNISOLONE ACETATE (PRED FORTE) 1 % OPHTHALMIC SUSPENSION Administer 1 drop into affected eye(s) 4 times daily RESPIRATORY THERAPY SUPPLIES (NEBULIZER/ADULT MASK) KIT 1 kit every 4 (four) hours if needed (dyspnea) Last face to face 05/17/2018 RISPERIDONE (RISPERDAL) 2 MG TABLET TAKE 1 TABLET BY MOUTH TWICE DAILY SODIUM CHLORIDE (OCEAN) 0.65 % NASAL SPRAY Administer 2 sprays into each nostril 3 (three) times a day if needed for congestion SOFOSBUVIR-VELPATASVIR (EPCLUSA) 400-100 MG TABLET Take by mouth 1 (one) time each day STOOL SOFTENER/LAXATIVE 50-8.6 MG PER TABLET TAKE TWO TABLETS BY MOUTH AT BEDTIME TIMOLOL (TIMOPTIC) 0.5 % OPHTHALMIC SOLUTION Administer 1 drop into affected eye(s) 2 times daily VENTOLIN HFA 108 (90 BASE) MCG/ACT INHALER INHALE 1 PUFF BY MOUTH NEEDED ZOLPIDEM (AMBIEN) 5 MG TABLET TAKE 1 TABLET BY MOUTH AT NIGHT NEEDED FOR SLEEP Modified Medications No medications on file Discontinued Medications No medications on file Discharge Instructions Attached Instructions PAIN WITHOUT A KNOWN CAUSE ([place]ELARUSIAN) [[id number]] Discharge Instructions Take tylenol for pain as needed. Drink plenty of fluids and follow up with your primary provider next week. ED COURSE and CLINICAL IMPRESSION Clinical Impressions as of Sep 29 1423 Neck pain Disposition: Discharge Noelle Vargas APRN, CNP 09/28/18 1424 documented in this encounter Plan of Treatment Upcoming Encounters Date Type Specialty Care Team Description 01/18/2022 Telemedicine Family Medicine Sebastian Griffiths MD [address] [place] [address] [phone] (Wo rk) documented as of this encounter Procedures Procedure Name Priority Date/Time Associated Comments Diagnosis CT SOFT TISSUE NECK W STAT 09/28/2018 1:26 PM Results for this CONTRAST CDT procedure are i n the results section. GLOMERULAR FILTRATION STAT 09/28/2018 12:00 Re sults for this RATE PM CDT procedure are i n the results section. CBC WITH AUTO STAT 09/28/2018 12:00 Results fo r this DIFFERENTIAL PM CDT procedure are i n the results section. COMPREHENSIVE STAT 09/28/2018 12:00 Results fo r this METABOLIC PANEL PM CDT procedure ar e in the results section. documented in this encounter Results CT neck w IV contrast (09/28/2018 1:26 PM CDT) Anatomical Region Laterality Modality Head and Neck Computed Tomography Specimen (Source) Anatomical Collection Method Collection Time Re ceived Time Location / / Volume Laterality 09/28/2018 1:26 PM CDT Impressions 09/28/2018 2:16 PM CDT IMPRESSION: Negative CT of the neck. Please note that all CT scans at this [facility] use dose modulation, iterative reconstruction, and/or weight- based dosing when appropriate to reduce radiation dose to as low as reaso nably achievable. Dictated by Cristian Obrien MD @ Sep 28 ??2:12PM Signed by Dr. Cristian Obrien @ Sep 28 2018 ??2:16PM Narrative 09/28/2018 2:16 PM CDT INDICATION: Solitary neck mass. Afebrile. Submandibu lar swelling and pain. TECHNIQUE: Volumetric helical scanning of the neck was performed with 80 cc of Omnipaque 350 contrast material IV. Giulia nal and sagittal reconstructions were obtained. COMPARISON: None. FINDINGS: No mass, lymphadenopathy or inflammatory process is identified. The airway is normal. The larynx is unre markable. The salivary and thyroid glands are within normal limits. No vasc ular abnormality is demonstrated. The visualized paranasal and mastoid sin uses are clear. The lung apices are essentially clear. No significant bony abnormality is demon strated. Procedure Note Cristian Obrien MD - 09/28/2018Formatti ng of this note might be different from the original. INDICATION: Solitary neck mass. Afebrile. Submandibu lar swelling and pain. TECHNIQUE: Volumetric helical scanning of the neck was performed with 80 cc of Omnipaque 350 contrast material IV. Giulia nal and sagittal reconstructions were obtained. COMPARISON: None. FINDINGS: No mass, lymphadenopathy or inflammatory process is identified. The airway is normal. The larynx is unre markable. The salivary and thyroid glands are within normal limits. No vasc ular abnormality is demonstrated. The visualized paranasal and mastoid sin uses are clear. The lung apices are essentially clear. No significant bony abnormality is demon strated. IMPRESSION: Negative CT of the neck. Please note that all CT scans at this [facility] use dose modulation, iterative reconstruction, and/or weight- based dosing when appropriate to reduce radiation dose to as low as reaso nably achievable. Dictated by Cristian Obrien MD @ Sep 28 201 9 2:12PM Signed by Dr. Cristian Obrien @ Sep 28 2018 2:16PM Noelle Vargas APRN, CNP IMG CT PROCEDURES Glomerular filtration rate (GFR) (09/28/2018 12:00 PM CDT) athologist Signature GFR >60 09/28/2018 [facility] 12:19 PM [facility] >60 09/28/2018 [facility] [place] GFR 12:19 PM [facility] Comment: GFR calculated from serum creatinine v alue Chronic Kidney Disease less than 60 mL/m in/1.73 m2 Kidney Failure less than 15 mL/min/1.73 m2 Note: effective 08/02/06 IDMS-Traceable MDRD Study Equation used. Specimen Anatomical Collection Method Collection Time Receive d Time (Source) Location / / Volume Laterality 09/28/2018 12:00 09/28/2018 PM CDT 12:00 PM CDT Noelle Vargas APRN, CNP LAB BLOOD ORDERABLES Performing Organization Address City/State/ZIP Code Phon e Number [facility] [address] [place] [phone] (ABNORMAL) Comprehensive metabolic panel (09/28/2018 12:00 PM CDT) Patholo gist Method Time Signature Total Protein 7.6 6.3 - 8.2 09/28/2018 [place] g/dL 12:19 PM [facility] Albumin, Serum 4.2 3.5 - 5.0 09/28/2018 [place] g/dL 12:19 PM [facility] Total Bilirubin 1.2 (H) 0.1 - 1.0 09/28/2018 [place] mg/dL 12:19 PM [facility] AST 43 8 - 43 U/L 09/28/2018 [place] 12:19 PM [facility] Alkaline 96 38 - 128 09/28/2018 [place] Phosphatase U/L 12:19 PM [facility] ALT (SGPT) 32 0 - 34 U/L 09/28/2018 [place] 12:19 PM [facility] Sodium 139 135 - 145 09/28/2018 [place] mEq/L 12:19 PM [facility] Potassium 3.9 3.5 - 5.1 09/28/2018 [place] mEq/L 12:19 PM [facility] Chloride 101 98 - 107 09/28/2018 [place] mEq/L 12:19 PM [facility] CO2 31 (H) 22 - 29 09/28/2018 [place] mmol/L 12:19 PM [facility] BUN 13 5 - 25 09/28/2018 [place] mg/dL 12:19 PM [facility] Creatinine 0.6 0.4 - 1.2 09/28/2018 [place] mg/dL 12:19 PM [facility] Glucose 119 (H) 70 - 100 09/28/2018 [place] mg/dL 12:19 PM [facility] Calcium, Total,S 10.0 8.4 - 10.2 09/28/2018 [place] mg/dL 12:19 PM [facility] Fasting? Unknown 09/28/2018 [place] 12:01 PM [facility] Specimen Anatomical Collection Method Collection Time Receive d Time (Source) Location / / Volume Laterality Blood (Blood, 09/28/2018 12:00 09/28/2018 Venous) PM CDT 12:01 PM CDT Noelle Vargas BIT SANDER, LUMBER CARRIER LAB BLOOD ORDERABLES Performing Organization Address City/State/ZIP Code Phon e Number [facility] [address] [place] [address] (ABNORMAL) CBC auto differential (09/28/2018 12:00 PM CDT) [facility] gist Method Time Signature WBC 9.6 3.5 - 09/28/2018 [place] 10.5 K/uL 12:17 PM [facility] RBC 4.56 3.90 - 09/28/2018 [place] 5.00 M/uL 12:17 PM [facility] Hemoglobin 12.9 12.0 - 09/28/2018 [place] 15.5 g/dL 12:17 PM [facility] Hematocrit 40.9 35.0 - 09/28/2018 [place] 44.0 % 12:17 PM [facility] Platelets 368 150 - 450 09/28/2018 [place] K/uL 12:17 PM [facility] MCV 89.7 81.6 - 09/28/2018 [place] 98.3 fL 12:17 PM [facility] MCH 28.4 26.0 - 09/28/2018 [place] 32.0 pg 12:17 PM [facility] MCHC 31.6 (L) 32.0 - 09/28/2018 [place] 36.0 g/dL 12:17 PM [facility] RDW 13.2 11.9 - 09/28/2018 [place] 15.5 % 12:17 PM [facility] Neutrophils 59.3 % 09/28/2018 [place] 12:17 PM [facility] Absolute 5.7 1.7 - 7.0 09/28/2018 [place] Neutrophils K/uL 12:17 PM [facility] LABORATORY Lymphocytes % 29.7 % 09/28/2018 SANDRA 12:17 PM [facility] Absolute 2.9 0.9 - 2.9 09/28/2018 SANDRA Lymphocytes K/uL 12:17 PM [facility] Monocytes % 6.9 % 09/28/2018 SANDRA 12:17 PM [facility] Monocytes 0.7 0.3 - 0.9 09/28/2018 SANDRA Absolute K/uL 12:17 PM [facility] Eosinophils 3.3 % 09/28/2018 SANDRA 12:17 PM [facility] Absolute 0.3 0.1 - 0.5 09/28/2018 SANDRA Eosinophils K/uL 12:17 [facility] Basophils 0.8 % 09/28/2018 SANDRA 12:17 PM [facility] Absolute 0.1 0.0 - 0.1 09/28/2018 YUMA Basophils K/uL 12:17 [facility] Specimen Anatomical Collection Method Collection Time Receive d Time (Source) Location / / Volume Laterality Blood (Blood, 09/28/2018 12:00 09/28/2018 Venous) PM CDT 12:01 PM CDT Noelle Vargas BIT SANDER, LUMBER CARRIER LAB BLOOD ORDERABLES Performing Organization Address City/State/ZIP Code Phon e Number [facility] [address] [place] [address] documented in this encounter Visit Diagnoses Diagnosis Neck pain - Primary Cervicalgia documented in this encounter Care Teams Community Service Patrol Officer Relationship Specialty Start Date End Date Sebastian Griffiths MD PCP - General 10/24/17 [address] [place] [address] documented as of this encounter
--- OUTSIDE RECORDS SUMMARY | 2021-12-09 21:32 | XMS_ITS | Encounter Summary ---
:1950 Author Organization [facility] Address [address] [place] [address] Care Team Providers Name Role Phone Sebastian Griffiths MD Primary Care Provider Reason for Visit Reason Onset Date Comments Med Refill 11/15/2018 Encounter Details Date Type Department Care Team Description 11/15/2018 Refill SE Family Med Sebastian Griffiths MD Controlled type 2 [address] [facility] [address] [place] [address] [place] [address] without complication, (Wo rk) without long-term current u se of insulin (HCC) (Primary Dx) Social History Tobacco Use Types [...] do you attend quaker or Never 2020 scientologist services? Do you [...] encounter Miscellaneous Notes Telephone Encounter - Rosio Casatñeda - 11/15/2018 1:49 PM CDT Rx for Pen needles [facility] fax # [phone]. Order # [id number] Telephone Encounter - Sosa Garcia LPN - 11/15/2018 10:31 AM CDT Pt is in need of pen needles for insulin injection documented in this encounter Plan of Treatment Upcoming Encounters Date Type Specialty Care Team Description 01/18/2022 Telemedicine Family Medicine Sebastian Griffiths MD [address] [place], [place] [address] (Wo rk) documented as of this encounter Visit Diagnoses Diagnosis Controlled type 2 diabetes mellitus with out complication, without long-term current use of insulin (HCC) - Primary documented in this encounter Care Teams [employer] Supervisor Relationship Specialty Start Date End Date Sebastian Griffiths MD PCP - General 10/24/[address] [place] [id number] documented as of this encounter
--- OUTSIDE RECORDS SUMMARY | 2021-12-09 21:32 | XMS_ITS | Encounter Summary ---
:1950 Author Organization [facility] Address [address] [place] [address] Care Team Providers Name Role Phone Sebastian Griffiths MD Primary Care Provider Reason for Visit Reason Comments DM Foot Care diabetic foot and nail care Foot Ulcer left great toe Encounter Details Date Type Department Care Team Description 12/24/2018 Office Visit SE Podiatry Pfizenmaier, Chronic obstructive pulmonar y disease, unspecified COPD type (HCC) (Primary Dx); [address] Yazmin L, DPM Type II diabetes mellitus with periphera l circulatory disorder (HCC); [place] [address] [address] [facility] Onychomycosis; [phone] SE Corns and callosities; [place], [place] Hav (hallux ab ducto valgus), right; [phone] Hav (hallux abducto valgus), left Social History Tobacco Use Types Packs/Day Years [...] do you attend episcopalian or Never 2020 rastafarian services? Do you [...] as of this encounter Patient Instructions Patient InstructionsVanessa L Pfizenmaier, JANETTEMery - 12/24/2018 11:15 AM CDT Images from the original note were not included. Patient Education Diabetes Mellitus and Foot Care Foot care is an important part of your health, especially when you have diabetes. Diabetes may causeyou to have problems because of poor blood flow (circulation) to your feet and legs, which can causeyour skin to: ?? Become thinner and stock drier tender. ?? Break more easily. ?? Heal more slowly. ?? Peel and crack. You may also have nerve damage (neuropathy) in your legs and feet, causing decreased feeling in them. This means that you may not notice minor injuries to your feet that could lead to more serious problems. Noticing and addressing any potential problems early is the best way to prevent future foot problems. How to care for your feet Foot hygiene ?? Wash your feet daily with warm water and mild soap. Do not use hot water. Then, pat your feet andthe areas between your toes until they are completely dry. Do not soak your feet as this can dry your skin. ?? Trim your toenails straight across. Do not dig under them or around the cuticle. File the edges of your nails with an emery board or nail file. ?? Apply a moisturizing lotion or petroleum jelly to the skin on your feet and to dry, brittle toenails. Use lotion that does not contain alcohol and is unscented. Do not apply lotion between your toes. Shoes and socks ?? Wear clean socks or stockings every day. Make sure they are not too tight. Do not wear knee-high stockings since they may decrease blood flow to your legs. ?? Wear shoes that fit properly and have enough cushioning. Always look in your shoes before you putthem on to be sure there are no objects inside. ?? To break in new shoes, wear them for just a few hours a day. This prevents injuries on your feet. Wounds, scrapes, corns, and calluses ?? Check your feet daily for blisters, cuts, bruises, sores, and redness. If you cannot see the bottom of your feet, use a mirror or ask someone for help. ?? Do not cut corns or calluses or try to remove them with medicine. ?? If you find a minor scrape, cut, or break in the skin on your feet, keep it and the skin around it clean and dry. You may clean these areas with mild soap and water. Do not clean the area with peroxide, alcohol, or iodine. ?? If you have a wound, scrape, corn, or callus on your foot, look at it several times a day to makesure it is healing and not infected. Check for: ? Redness, swelling, or pain. ? Fluid or blood. ? Warmth. ? Pus or a bad smell. General instructions ?? Do not cross your legs. This may decrease blood flow to your feet. ?? Do not use heating pads or hot water bottles on your feet. They may burn your skin. If you have lost feeling in your feet or legs, you may not know this is happening until it is too late. ?? Protect your feet from hot and cold by wearing shoes, such as at the beach or on hot pavement. ?? Schedule a complete foot exam at least once a year (annually) or more often if you have foot problems. If you have foot problems, report any cuts, sores, or bruises to your health care provider immediately. Contact a health care provider if: ?? You have a medical condition that increases your risk of infection and you have any cuts, sores, or bruises on your feet. ?? You have an injury that is not healing. ?? You have redness on your legs or feet. ?? You feel burning or tingling in your legs or feet. ?? You have pain or cramps in your legs and feet. ?? Your legs or feet are numb. ?? Your feet always feel cold. ?? You have pain around a toenail. Get help right away if: ?? You have a wound, scrape, corn, or callus on your foot and: ? You have pain, swelling, or redness that gets worse. ? You have fluid or blood coming from the wound, scrape, corn, or callus. ? Your wound, scrape, corn, or callus feels warm to the touch. ? You have pus or a bad smell coming from the wound, scrape, corn, or callus. ? You have a fever. ? You have a red line going up your leg. Summary ?? Check your feet every day for cuts, sores, red spots, swelling, and blisters. ?? Moisturize feet and legs daily. ?? Wear shoes that fit properly and have enough cushioning. ?? If you have foot problems, report any cuts, sores, or bruises to your health care provider immediately. ?? Schedule a complete foot exam at least once a year (annually) or more often if you have foot problems. This information is not intended to replace advice given to you by your health care provider. Make sure you discuss any questions you have with your health care provider. Document Released: 03/03/2001 Document Revised: 04/07/2017 Document Reviewed: 04/07/2017 [employer] Patient Education ?? 2019 [employer]. documented in this encounter Progress Notes Yazmin Do DPM - 12/24/2018 11:15 AM CDT Estab Patient Visit Subjective: Rena Fan is a 68 y.o. female presenting for Diabetic foot ulceration and Daibetic foot care HPI: This is a 70 year old female who presents to Podiatry relating that she has a Diabetic foot ulceration along the lateral aspect of her left hallux and medial aspect of the second digit left foot. Patient did have some blistering to the lateral aspect of the left hallux and also along the medial aspect of the left second digit. Patient wanted this evaluated today prior to her diabetic foot care. Today there is xerotic skin present but no ulceration. The areas of concern are healed today. Patient is Type II Diabetic diet controlled. She last saw her primary provider Dr. Griffiths on 06/26/2018. He last HbA1c on 06/26/2018 was 5.9. Objective: Cardiovascular: DP and PT pulses are absent bilaterally. Patient does not have any hair growth present. Edema of the lower extremities. Feet are cool to touch. Musculoskeletal: HAV deformity bilaterally. Patient states that she does have pain secondary to the HAV deformity. Patient also has hammertoe deformity of the digits bilaterally. Integumentary: Healed area where patient states she had a diabetic foot ulceration lateral aspect ofthe left hallux and medial aspect of the second digit left foot. Patient has elongated thickened onychomycotic nails 1 through 5 bilaterally. Hyperkeratotic tissue present medial aspect of the hallux bi laterally and also medial aspect of the second digits bilaterally. Neurologic: Patient does have history of diabetic neuropathy. Allergies Allergen Reactions ??? Bee Venom Anaphylaxis ??? Aspirin Rash ??? Nsaids ??? Penicillins Rash ??? Tramadol ??? Varenicline Current Outpatient Medications: ??? ACCU-CHEK SMARTVIEW test strip, USE DIRECTED TESTING TWICE DAILY, Disp: 200 each, Rfl: 3 ??? ACETAMINOPHEN EXTRA STRENGTH 500 MG tablet, TAKE TWO CAPLETS BY MOUTH THREE TIMES A DAY NEEDED FOR PAIN, Disp: 100 tablet, Rfl: 11 ??? amLODIPine (NORVASC) 5 MG tablet, Take 1 tablet (5 mg total) by mouth 1 (one) time each day, Disp: 90 tablet, Rfl: 3 ??? ASPIRIN LOW DOSE 81 MG chewable tablet, CHEW ONE TABLET BY MOUTH DAILY, Disp: 100 tablet, Rfl: 4 ??? BASAGLAR KWIKPEN 100 UNIT/ML injection, INJECT 20 UNITS SUBCUTANEOUSLY AT 5PM, Disp: 15 mL, Rfl:5 ??? Cetirizine HCl 10 MG capsule, Take [...] DR capsule, TAKE TWO CAPSULES BY MOUTH DAILY, Disp: 60 capsule, Rfl:5 ??? EPINEPHrine (EPIPEN) 0.3 MG/0.3ML injection syringe, [...] MOUTH THREE TIMES A DAY ALONG WITH 300 MG CAPSULE, Disp: 270 tablet, Rfl: 0 ??? hydrOXYzine (ATARAX) 25 MG tablet, Take 1 tablet (25 mg total) by mouth every 8 (eight) hours ifneeded for itching, Disp: 90 tablet, Rfl: 3 ??? Insulin Pen Needle 31G X 8 MM misc, 1 Pen needle 1 (one) time each day, Disp: 100 each, Rfl: 1 ??? ipratropium-albuterol (DUO-NEB) 0.5-2.5 mg/3 mL nebulizer solution, USE ONE (1) VIAL VIA NEBULIZER UP TO EVERY 4 HOURS NEEDED WHEEZING., Disp: 180 mL, Rfl: 3 ??? JANUVIA 100 MG tablet, TAKE ONE TABLET BY MOUTH EVERY DAY IN THE MORNING, Disp: 90 tablet, Rfl: 0 ??? ketorolac (ACULAR) 0.5 % ophthalmic solution, Administer 1 drop into affected eye(s) 4 times daily, Disp: , Rfl: ??? latanoprost (XALATAN) 0.005 % ophthalmic solution, Administer 1 drop into affected eye(s), Disp:, Rfl: ??? lidocaine (XYLOCAINE) 5 % ointment, Apply topically Apply small bead and rub in skin 2-4 times aday over painful back area. Wash off hands., Disp: , Rfl: ??? lisinopril-hydroCHLOROthiazide (PRINZIDE,ZESTORETIC) 10-12.5 MG per tablet, Take 1 tablet by mouth 1 (one) time each day, Disp: 30 tablet, Rfl: 11 ??? LORazepam (ATIVAN) 1 MG tablet, TAKE 1 TABLET BY MOUTH THREE TIMES A DAY, Disp: 90 tablet, Rfl: 2 ??? methocarbamol (ROBAXIN) 500 MG tablet, TAKE [...] EVERY MORNING, Disp: 100 each, Rfl:3 ??? Nebulizers (NEBULIZER COMPRESSOR) misc, 1 Units every 4 (four) hours if needed (dyspnea) Last face to face 05/17/2018, Disp: 1 each, Rfl: 1 ??? Oxymetazoline HCl (NASAL SPRAY NA), , Disp: , Rfl: ??? pantoprazole (PROTONIX) 40 MG EC tablet, TAKE 1 TABLET BY MOUTH DAILY, Disp: 90 tablet, Rfl: 3 ??? prednisoLONE acetate (PRED FORTE) 1 % ophthalmic suspension, Administer 1 drop into affected eye(s) 4 times daily, Disp: , Rfl: ??? Respiratory Therapy Supplies (NEBULIZER/ADULT MASK) kit, 1 kit every 4 (four) hours if needed (dyspnea) Last face to face 05/17/2018, Disp: 1 each, Rfl: 1 ??? risperiDONE (RisperDAL) 2 MG tablet, TAKE 1 TABLET BY MOUTH TWICE DAILY, Disp: 60 tablet, Rfl: 5 ??? sodium chloride (OCEAN) 0.65 % nasal spray, Administer 2 sprays into each nostril 3 (three) times a day if needed for congestion, Disp: , Rfl: ??? Sofosbuvir-Velpatasvir (EPCLUSA) 400-100 MG tablet, Take by mouth 1 (one) time each day, Disp: ,Rfl: ??? STOOL SOFTENER/LAXATIVE 50-8.6 MG per tablet, TAKE TWO TABLETS BY MOUTH AT BEDTIME, Disp: 180 tablet, Rfl: 3 ??? timolol (TIMOPTIC) 0.5 % ophthalmic solution, Administer 1 drop into affected eye(s) 2 times daily, Disp: , Rfl: ??? VENTOLIN HFA 108 (90 Base) MCG/ACT inhaler, INHALE 1 PUFF BY MOUTH NEEDED, Disp: 18 g, Rfl: 5 ??? zolpidem (AMBIEN) 5 MG tablet, TAKE ONE TABLET BY MOUTH AT BEDTIME NEEDED FOR SLEEP, Disp: 30tablet, Rfl: 5 ??? nicotine (NICODERM CQ) 14 MG/24HR, Place 1 patch on the skin 1 (one) time each day at the same time (Patient not taking: Reported on 10/10/2018), Disp: 30 patch, Rfl: 1 ??? nicotine (NICODERM CQ) 7 MG/24HR, Place 1 patch on the skin 1 (one) time each day at the same time (Patient not taking: Reported on 10/10/2018), Disp: 30 patch, Rfl: 2 Past Medical History: Diagnosis Date ??? Acid [...] ??? Type 2 diabetes mellitus, controlled (HCC) No problem-specific Assessment & Plan notes found for this encounter. Past Surgical History: Procedure Laterality Date ??? APPENDECTOMY ??? BREAST BIOPSY Left ??? CHOLECYSTECTOMY ??? COLONOSCOPY 2014 ??? ESOPHAGOGASTRODUODENOSCOPY 2014 ??? KNEE ARTHROPLASTY Right 2007 ??? KNEE ARTHROPLASTY Right 09/05/2017 ??? ORIF WRIST FRACTURE 2009 ??? ROTATOR CUFF REPAIR W/ DISTAL CLAVICLE EXCISION 2006 ??? SEPTOPLASTY 1999 ??? TOTAL ABDOMINAL HYSTERECTOMY W/ BILATERAL SALPINGOOPHORECTOMY Social History Socioeconomic History ??? Marital status: Spouse name: Deepika ??? Number of children: 2 ??? Years of education: Not on file ??? Highest education level: Not on file Occupational History ??? Occupation: Retired Social Needs ??? Financial resource strain: Not hard at all ??? Food insecurity: Worry: Never true Inability: Never true ??? Transportation needs: Medical: No Non-medical: No Tobacco Use ??? Smoking status: Current Every Day Smoker Packs/day: 1.00 Years: 40.00 Pack years: 40.00 Types: Cigarettes ??? Smokeless tobacco: Never Used Substance and Sexual Activity ??? Alcohol use: Not Currently Frequency: Never ??? Drug use: Not Currently ??? Sexual activity: Defer Lifestyle ??? Physical activity: Days per week: 0 days Minutes per session: 0 min ??? Stress: Only a little Relationships ??? Social connections: Talks on phone: Not on file Gets together: Not on file Attends rastafarian service: Not on file Active member of club or organization: Not on file Attends meetings of clubs or organizations: Not on file Relationship status: Not on file ??? Intimate partner violence: Fear of current or ex partner: Not on file Emotionally abused: Not on file Physically abused: Not on file Forced sexual activity: Not on file Other Topics Concern ??? Not on file Social History Narrative Lives in [facility], lives in house in [place]. Family History Problem Relation Age of Onset ??? Glaucoma Mother ??? Stomach cancer Father 39 ??? Colon cancer Maternal Grandfather ??? Glaucoma Brother ??? Blindness Brother ??? Glaucoma Maternal Grandmother Objective: Visit Vitals OB Status Postmenopausal Smoking Status Current Every Day Smoker Procedure: Debridement of the elongated thickened onychomycotic nails 1 through 5 bilaterally. Debridement of hyperkeratotic lesions x4 with a #10 blade Rena was seen today for dm foot care and foot ulcer. Diagnoses and all orders for this visit: Chronic obstructive pulmonary disease, unspecified COPD type (HCC) (Primary) Type II diabetes mellitus with peripheral circulatory disorder (HCC) Onychomycosis Corns and callosities Hav (hallux abducto valgus), right Hav (hallux abducto valgus), left Plan: 1. Patient to return to clinic in 3 months for diabetic foot care. 2. Tegaderm foam dressing was applied to the medial aspect of the left hallux to protect the area ofconcern. Patient to remove the dressing in 1 week. 3. Patient understood the plan and will call with any questions or concerns. Yazmin Do DPM documented in this encounter Plan of Treatment Upcoming Encounters Date Type Specialty Care Team Description 01/18/2022 Telemedicine Family Medicine Sebastian Griffiths MD [address] [place] [phone] (Wo rk) documented as of this encounter Visit Diagnoses Diagnosis Chronic obstructive pulmonary disease, u nspecified COPD type (HCC) - Primary Type II diabetes mellitus with periphera l circulatory disorder (HCC) Type II or unspecified type diabetes giuseppe litus with peripheral circulatory disorders, not stated as uncontrolled Onychomycosis Dermatophytosis of nail Corns and callosities Hav (hallux abducto valgus), right Hav (hallux abducto valgus), left documented in this encounter Care Teams Coil Inspector Relationship Specialty Start Date End Date Sebatsian Griffiths MD PCP - General 10/24/[address] [place] [phone] documented as of this encounter
--- OUTSIDE RECORDS SUMMARY | 2021-12-09 21:32 | XMS_ITS | Encounter Summary ---
:1950 Author Organization [facility] Address [address] [place] [address] Care Team Providers Name Role Phone Sebastian Griffiths MD Primary Care Provider Reason for Visit Reason Onset Date Comments Phone call 11/15/2018 Encounter Details Date Type Department Care Team Description 11/15/2018 Telephone SE Ophthalmology John Braun MD Phone call [phone] [place] [address] Social History Tobacco Use Types [...] do you attend sabianism or Never 2020 uatsdin services? Do you [...] this encounter Miscellaneous Notes Telephone Encounter - Mackenzie Medina - 11/15/2018 10:04 AM CDT Left detailed message for pt stating she would have to contact [facility] to get her most recent glasses RX. Telephone Encounter - John Braun MD - 11/15/2018 9:27 AM CDT No. She has had combined cataract/glaucoma surgery at [facility] since her appointment here, so the refraction here is no longer accurate. She will need to check with [facility] if a post op refraction has been done, yet. Telephone Encounter - Mackenzie Kelleyponcho - 11/15/2018 9:13 AM CDT . Can we dispense Manifest refraction from 06/14/2018? Telephone Encounter - Stacy Kemp - 11/15/2018 8:33 AM CDT Patient called requesting a copy of her eyeglass Rx be mailed to her home address. Please send. documented in this encounter Plan of Treatment Upcoming Encounters Date Type Specialty Care Team Description 01/18/2022 Telemedicine Family Medicine Sebastian Griffiths MD [address] [place], [place] [address] (Wo rk) documented as of this encounter Visit Diagnoses Not on filedocumented in this encounter Care Teams Counselor Education Professor Relationship Specialty Start Date End Date Sebastian Griffiths MD PCP - General 10/24/[address] [place] [phone] documented as of this encounter
--- OUTSIDE RECORDS SUMMARY | 2021-12-09 21:32 | XMS_ITS | Encounter Summary ---
:1950 Author Organization [facility] Address [address] [place] [address] Care Team Providers Name Role Phone Sebastian Griffiths MD Primary Care Provider Reason for Visit Reason Comments Med Refill Encounter Details Date Type Department Care Team Description 10/17/2018 Refill SE Family Med Sebastian Griffiths MD Major depressive disorder, recurrent epi sode, moderate ([facility]); [address] Controlled type 2 diabetes mellitus with out complication, without long-term current use of insulin ([facility]) [place] [address] [place] [address] (Wo rk) Social History Tobacco Use Types [...] do you attend cheondoism or Never 2020 mormonism services? Do you [...] encounter Miscellaneous Notes Telephone Encounter - Cat Randle - 10/17/2018 12:44 PM CDT Patient is calling back to know the status on this refill. Patient relays back is killing her and that she hasn't heard from the PCP. Please advise. documented in this encounter Plan of Treatment Upcoming Encounters Date Type Specialty Care Team Description 01/18/2022 Telemedicine Family Medicine Sebastian Griffiths MD [address] [place], [place] [phone] (Wo rk) documented as of this encounter Visit Diagnoses Diagnosis Major depressive disorder, recurrent epi sode, moderate (HCC) Major depressive disorder, recurrent epi sode, moderate Controlled type 2 diabetes mellitus with out complication, without long-term current use of insulin (HCC) documented in this encounter Care Teams Roll Tube Setter Relationship Specialty Start Date End Date Sebastian Griffiths MD PCP - General 10/24/17 [address] [place] [address] documented as of this encounter
--- OUTSIDE RECORDS SUMMARY | 2021-12-09 21:32 | XMS_ITS | Encounter Summary ---
:1950 Author Organization [facility] Address [address] [place] [address] Care Team Providers Name Role Phone Sebastian Delarosa MD Primary Care Provider Reason for Visit Reason Onset Date Comments other 10/23/2018 Please call pt she w ants some pain meds for her back and neck pain. Encounter Details Date Type Department Care Team Description 10/23/2018 Telephone SE Family Med Sebastian Delarosa, other (Please call pt [address] [facility] [place] [address] meds for her back and [phone] SE neck pain. ) [place] [address] Social History Tobacco Use Types [...] do you attend rastafari or Never 2020 jehovah's witness services? Do [...] Telephone Encounter - Mili Rivera MA - 10/31/2018 10:38 AM CDT Patient and her nurse Lucrecia called today, informed them previous message, they said nurse phone number [phone]. They requested to be transferred to set up an appointment. Telephone Encounter - Maribell Richards RN - 10/29/2018 10:36 AM CDT Called patient and patient states she called but no record. Patient is going to talk with her Nurse on mon. Did advise if she is having pain to come in and be seen Telephone Encounter - Maribell Richards RN - 10/23/2018 3:36 PM CDT Called patient to figure out if patient having increasing pain since she was seen on 10/12 by [place] for pain. Patient was yelling into phone and wants her nurse to call us. Did ask about nurse phone number and patient didn't have it. Patient states my nurse is coming out to see me tomorrow and will call you Did advised patient to talk with triage nurse due to symptoms. Patient was not rx any narcotics in September by dr delarosa Telephone Encounter - Tamie Stewart - 10/23/2018 8:02 AM CDT Please call pt she wants some pain meds for her back and neck pain. Pt states she has been waiting for over 3 weeks for a call from Dr Velasquez documented in this encounter Plan of Treatment Upcoming Encounters Date Type Specialty Care Team Description 01/18/2022 Telemedicine Family Medicine Sebastian Delarosa MD [address] [place] [phone] (Wo rk) documented as of this encounter Visit Diagnoses Not on filedocumented in this encounter Care Teams Die Hardener Relationship Specialty Start Date End Date Sebastian Delarosa MD PCP - General 10/24/[address] [place] [id number] documented as of this encounter
--- OUTSIDE RECORDS SUMMARY | 2021-12-09 21:32 | XMS_ITS | Encounter Summary ---
:1950 Author Organization [facility] Address [address] [place] [address] Care Team Providers Name Role Phone Sebastian Griffiths MD Primary Care Provider Reason for Visit Reason Comments Med Refill Encounter Details Date Type Department Care Team Description 09/27/2018 Refill SE Family Med Sebastian Griffiths MD Hypertension, essential, [address] benign (Primary Dx) [place] [address] [place] [address] [phone] (Wo rk) Social History Tobacco Use Types Packs/Day Years Used Date Current Every Day Smoker Cigarettes 1.5 Smokeless Tobacco: Never Used Alcohol Use Standard [...] do you attend muslim or Never 2020 yazdanism services? Do you [...] Telephone Encounter - Guillermina Moran MA - 09/28/2018 2:45 PM CDT Losartan (Cozaar) 50 mg tablet last rx, 10/16/17 # 90, 3 refills Last date med(s) reviewed: 07/26/18 Appt scheduled 10/10/18 Most Recent Value Last 6 Months BP 132/82 09/28/2018 Component Latest Ref Rng & Units 09/28/2018 [...] 8.4 - 10.2 mg/dL 10.0 Fasting? Unknown documented in this encounter Plan of Treatment Upcoming Encounters Date Type Specialty Care Team Description 01/18/2022 Telemedicine Family Medicine Sebastian Griffiths MD [address] [place], [place] [address] (Wo rk) documented as of this encounter Visit Diagnoses Diagnosis Hypertension, essential, benign - Primar y Essential hypertension, benign documented in this encounter Care Teams Speed Runner Relationship Specialty Start Date End Date Sebsatian Griffiths MD PCP - General 10/24/17 [address] [place], [place] [address] documented as of this encounter
--- OUTSIDE RECORDS SUMMARY | 2021-12-09 21:32 | XMS_ITS | Encounter Summary ---
:1950 Author Organization [facility] Address [address] [place] [address] Care Team Providers Name Role Phone Sebastian Griffiths MD Primary Care Provider Encounter Details Date Type Department Care Team Description 2019 Telephone SE [facility] Sebastian Griffiths MD [address] [facility] [address] [place] [address] [place] [address] [phone] (Wo rk) Social History Tobacco Use Types [...] do you attend confucianism or Never 2020 mu-ism services? Do you [...] Telephone Encounter - Shefali Vasquez MA - 01/11/2019 2:38 PM CDT Patient notified that Dr Griffiths discussed dosing instructions of patient oxycodone 2 a day for most severe pain with patient home health nurse. Patient notified that patient home health nurse will set up weekly doses. Telephone Encounter - Sebastian Griffiths MD - 01/11/2019 1:13 PM CDT Let patient know I discussed with nurse and she will set up weekly doses. Only 2 oxycodone a day formost severe pain. #60 dispensed. Telephone Encounter - Tamie Stewart - 01/11/2019 12:56 PM CDT Pt is calling agian Telephone Encounter - Tamie Stewart - 01/09/2019 9:04 AM CDT Pt calling again about pain meds Telephone Encounter - Mili Rivera MA - 01/07/2019 12:36 PM CDT Patient calling today asking for pain medication, per last visit note dated 12/24/18, I will call Lucrecia and your before your birthday with a decision on your meds. Per patient Dr. Griffiths has their phone number and patient doesn't know number. Telephone Encounter - Tamie Stewart - 2019 11:41 AM CDT Julian from [place] [facility] calling regarding pain med for pt as she is still complaining about her back please call documented in this encounter Plan of Treatment Upcoming Encounters Date Type Specialty Care Team Description 01/18/2022 Telemedicine Family Medicine Sebastian Griffiths MD [address] [place] [phone] (Wo rk) documented as of this encounter Visit Diagnoses Diagnosis Degenerative disc disease, lumbar - Prim sudhakar documented in this encounter Care Teams Kitchen Mechanic Relationship Specialty Start Date End Date Sebastian Griffiths MD PCP - General 10/24/[address] [place] [id number] documented as of this encounter
--- OUTSIDE RECORDS SUMMARY | 2021-12-09 21:32 | XMS_ITS | Encounter Summary ---
:1950 Author Organization [facility] Address [address] [place] [address] Care Team Providers Name Role Phone Sebastian Griffiths MD Primary Care Provider Encounter Details Date Type Department Care Team Description 09/28/2018 Travel Social History Tobacco Use Types Packs/Day [...] do you attend voodoo or Never 2020 gnosticism services? Do you [...] Telemedicine Family Medicine Sebastian Griffiths MD [address] [place], [place] [address] (Wo rk) documented as of this encounter Visit Diagnoses Not on filedocumented in this encounter Care Teams Transportation Solutions Manager Relationship Specialty Start Date End Date Sebastian Griffiths MD PCP - General 10/24/[address] [place] [phone] documented as of this encounter
--- OUTSIDE RECORDS SUMMARY | 2021-12-09 21:32 | XMS_ITS | Encounter Summary ---
:1950 Author Organization [facility] Address [address] [place] [address] Care Team Providers Name Role Phone Sebastian Griffiths MD Primary Care Provider Reason for Visit Reason Onset Date Comments Hypertension 09/11/2018 Encounter Details Date Type Department Care Team Description 09/11/2018 Nurse Triage [facility] Sebastian Griffiths MD [address] [facility] [address] [place] [address] [place] [address] [phone] (Wo rk) Social History Tobacco Use Types [...] do you attend mandaen or Never 2020 pentecostal services? Do you [...] this encounter Miscellaneous Notes Telephone Encounter - Jagdish Jasmine MA - 09/12/2018 10:51 AM CDT Spoke with MARLENE Schofield who said that she would send in blood pressure reading(s) again next week. Rehana added that she has to take this mechanically as the manual cuffs available to her do not fit patient's arms. Telephone Encounter - Sebastian Griffiths MD - 09/12/2018 10:08 AM CDT No change in meds yet. Have her nurse send a bp reading next week, thanks. Meds addressed in rx request note from today. Telephone Encounter - Kaelyn Lawson RN - 09/11/2018 9:02 AM CDT RN is calling to report elevated blood pressures per their protocol -the mechanical reading was 172/156 and the manual reading was 146/108 -denies symptoms other than increase in her chronic pain, medication requests already sent for gabapentin, wants to request more pain medications and nicotine patches in that existing request. -appointment made in office for October 10 for pain, will forward this to PCP because patient will not come in sooner to see anyone else Will message provider, call back with their response by nurse when able. Reason for Disposition ? ? Systolic BP >= 180 OR Diastolic >= 110 Protocols used: HIGH BLOOD [id number] documented in this encounter Plan of Treatment Upcoming Encounters Date Type Specialty Care Team Description 01/18/2022 Telemedicine Family Medicine Sebastian Griffiths MD [address] [place], [place] [address] (Wo rk) documented as of this encounter Visit Diagnoses Not on filedocumented in this encounter Care Teams Lead Business Analyst Relationship Specialty Start Date End Date Sebastian Griffiths MD PCP - General 10/24/17 [address] [place], [place] [phone] documented as of this encounter
--- OUTSIDE RECORDS SUMMARY | 2021-12-09 21:32 | XMS_ITS | Encounter Summary ---
:1950 Author Organization [facility] Address [address] [place] [address] Care Team Providers Name Role Phone Sebastian Griffiths MD Primary Care Provider Reason for Visit Reason Comments Med Refill Encounter Details Date Type Department Care Team Description 01/30/2019 Refill SE Family Med Sebastian Griffiths MD Generalized anxiety disorder; [address] [facility] [address] Degener[place], [place] [address] [place] [address] [phone] (Wo rk) Social History Tobacco Use Types [...] do you attend baptist or Never 2020 alevism services? Do you [...] Telephone Encounter - Mili Rivera MA - 01/30/2019 11:52 AM CST [facility] calling also requesting a refill of oxycodone 5 mg, patient is due for a refill on 02/11/19. Oxycodone 5 mg, 60 tablets, 0 refills, done on 01/11/19. EL CAP SETTER documented in this encounter Plan of Treatment Upcoming Encounters Date Type Specialty Care Team Description 01/18/2022 Telemedicine Family Medicine Sebastian Griffiths MD [address] [place], [place] [address] (Wo rk) documented as of this encounter Visit Diagnoses Diagnosis Generalized anxiety disorder Degenerative disc disease, lumbar documented in this encounter Care Teams Brake Reliner Relationship Specialty Start Date End Date Sebastian Griffiths MD PCP - General 10/24/17 [address] [place] [address] documented as of this encounter
--- OUTSIDE RECORDS SUMMARY | 2021-12-09 21:32 | XMS_ITS | Encounter Summary ---
:1950 Author Organization Address [address] [place] [address] Care Team Providers Name Role Phone Sebastian Griffiths MD Primary Care Provider Reason for Visit Reason Comments Med Refill Encounter Details Date Type Department Care Team Description 11/22/2018 Refill SE Family Med Sebastian Griffiths MD Controlled type 2 [address] [facility] [address] [place] [address] [place] [address] without complication, (Wo rk) without long-term current [...] do you attend jew or Never 2020 presybeterian services? Do you [...] Telephone Encounter - Lindsay Ny LPN - 11/26/2018 12:12 PM CDT Last visit in Provider Department: 06/26/2018 Upcoming appointment with Provider: 12/24/2018 Last Rx: 11/12/2017 # 200, 4 refills Requested Prescriptions Pending Prescriptions Disp Refills ??? ACCU-CHEK SMARTVIEW test strip [Pharmacy Med Name: ACCU-CHEK SMARTVIEW STRP] 4 Sig: USE DIRECTED TESTING TWICE DAILY Labs: Component Latest Ref Rng & Units 06/26/2018 Hemoglobin A1C 4.0 - 5.6 % A1C 5.9 (H) Vitals: BP Readings from Last 2 Encounters: 10/10/18 88/52 09/28/18 127/74 documented in this encounter Plan of Treatment Upcoming Encounters Date Type Specialty Care Team Description 01/18/2022 Telemedicine Family Medicine Sebastian Griffiths MD [address] [place], [place] [address] (Wo rk) documented as of this encounter Visit Diagnoses Diagnosis Controlled type 2 diabetes mellitus with out complication, without long-term current use of insulin (HCC) - Primary documented in this encounter Care Teams Grievance Coordinator Relationship Specialty Start Date End Date Sebastian Griffiths MD PCP - General 10/24/[address] [place] [address] documented as of this encounter
--- OUTSIDE RECORDS SUMMARY | 2021-12-09 21:32 | XMS_ITS | Encounter Summary ---
:1950 Author Organization [facility] Address [address] [place] [address] Care Team Providers Name Role Phone Sebastian Griffiths MD Primary Care Provider Reason for Visit Reason Onset Date Comments Transporation 09/28/2018 Encounter Details Date Type Department Care Team Description 09/28/2018 Telephone [facility], [facility] Transporation Services 210 [facility] [address] [place] [phone] Social History Tobacco Use Types Packs/Day Years [...] do you attend scientology or Never 2020 mu-ism services? Do you [...] encounter Miscellaneous Notes Telephone Encounter - CLIFF Brewer - 09/28/2018 3:49 PM CDT Transportation arranged home from ED. documented in this encounter Plan of Treatment Upcoming Encounters Date Type Specialty Care Team Description 01/18/2022 Telemedicine Family Medicine Sebastian Griffiths MD [address] [place], [place] [address] (Wo rk) documented as of this encounter Visit Diagnoses Not on filedocumented in this encounter Care Teams Automatic Line Set Up Mechanic Relationship Specialty Start Date End Date Sebastian Griffiths MD PCP - General 10/24/17 [address] [place], [place] [phone] documented as of this encounter
--- OUTSIDE RECORDS SUMMARY | 2021-12-09 21:32 | XMS_ITS | Encounter Summary ---
:1950 Author Organization [facility] Address [address] [place] [address] Care Team Providers Name Role Phone Sebastian Griffiths MD Primary Care Provider Reason for Visit Reason Comments Med Refill Encounter Details Date Type Department Care Team Description 02/27/2019 Refill SE Family Med Sebastian Griffiths MD Acute pain of right [address] [place] [address] [place] [address] [phone] (Wo rk) Social History Tobacco Use Types [...] do you attend druze or Never 2020 caodaism services? Do you [...] Telephone Encounter - Candice Werner LPN - 03/04/2019 1:05 PM CST Last visit in Provider Department: 12/24/2018 Upcoming appointment with Provider: 03/12/2019 Last Rx: #!20, 3 refills 06/18/18 Requested Prescriptions Pending Prescriptions Disp Refills ??? methocarbamol (ROBAXIN) 500 MG tablet [Pharmacy Med Name: METHOCARBAMOL 500MG TABS] 120 tablet 3 Sig: TAKE 1 TABLET BY MOUTH TWICE DAILY NEEDED FOR MUSCLE SPASMS ERY MATER documented in this encounter Plan of Treatment Upcoming Encounters Date Type Specialty Care Team Description 01/18/2022 Telemedicine Family Medicine Sebastian Griffiths MD [address] [place], [place] [address] (Wo rk) documented as of this encounter Visit Diagnoses Diagnosis Acute pain of right shoulder documented in this encounter Care Teams Truck Rental Manager Relationship Specialty Start Date End Date Sebastian Griffiths MD PCP - General 10/24/[address] [place] [phone] documented as of this encounter
--- OUTSIDE RECORDS SUMMARY | 2021-12-09 21:32 | XMS_ITS | Encounter Summary ---
:1950 Author Organization [facility] Address [address] [place] [address] Care Team Providers Name Role Phone Sebastian Griffiths MD Primary Care Provider Reason for Visit Reason Comments Med Refill Encounter Details Date Type Department Care Team Description 09/11/2018 Refill SE Family Med Sebastian Griffiths MD Tobacco dependency (Primary Dx); [address] Controlled type 2 diabetes mellitus with out complication, without long-term current use of insulin (HCC); [place] [address] [place] [address] Chronic pain syndrome [phone] (Wo rk) Social History Tobacco Use Types [...] do you attend presybeterian or Never 2020 hindu services? Do you [...] Telephone Encounter - Jagdish Jasmine MA - 09/19/2018 8:59 AM CDT Patient and MARLENE Schofield both informed of Rx refills. Telephone Encounter - Sebastian Griffiths MD - 09/18/2018 7:28 PM CDT Prescriptions filled. Telephone Encounter - Juliana Stone LPN - 09/18/2018 9:48 AM CDT Nurse states that the patient has said she smokes 3-4 cigarettes Telephone Encounter - Maribell Richards RN - 09/17/2018 9:30 AM CDT Nurse forgot and so will double check with patient and get back to us. Telephone Encounter - Jagdish Jasmine MA - 09/12/2018 10:54 AM CDT Spoke with MARLENE Schofield and informed her of provider's message. Kanwal will advise patient of provider's decision about the pain medication and will call back with how much patient is currently smoking. Telephone Encounter - Sebastian Griffiths MD - 09/12/2018 10:00 AM CDT Need to know how much she is currently smoking to do nicotine patch rx. Nothing more for pain. Can do other 2 rx's when question answered. Thanks. Telephone Encounter - Kaelyn Lawson RN - 09/11/2018 9:14 AM CDT Patient was last seen 08/04/2018, has an appointment scheduled for today and for November 13. -Patient is also requesting a prescription for a nicotine patch and for something more for pain -visit scheduled for 10/10/2018 is related to increased pain and high blood pressure as documented bymy triage note of today. -will forward this to PCP because patient will not come in sooner to see anyone else Will message provider, call back with their response by nurse when able. documented in this encounter Plan of Treatment Upcoming Encounters Date Type Specialty Care Team Description 01/18/2022 Telemedicine Family Medicine Sebastian Griffiths MD [address] [place], [place] [address] (Wo rk) documented as of this encounter Visit Diagnoses Diagnosis Tobacco dependency - Primary Tobacco use disorder Controlled type 2 diabetes mellitus with out complication, without long-term current use of insulin (HCC) Chronic pain syndrome documented in this encounter Care Teams Hvac Project Engineer Relationship Specialty Start Date End Date Sebastian Griffiths MD PCP - General 10/24/17 [address] [place], [place] [phone] documented as of this encounter
--- OUTSIDE RECORDS SUMMARY | 2021-12-09 21:32 | XMS_ITS | Encounter Summary ---
:1950 Author Organization [facility] Address [address] [place] [address] Care Team Providers Name Role Phone Sebastian Griffiths MD Primary Care Provider Reason for Visit Reason Comments Med Refill Encounter Details Date Type Department Care Team Description 2019 Refill SE Family Med Sebastian Griffiths MD [address] [facility] [address] [place] [address] [place] [address] [phone] (Wo rk) Social History Tobacco Use Types [...] do you attend sabianist or Never 2020 yazdanism services? Do you [...] Telephone Encounter - Tamie Kuhn MA - 01/07/2019 7:04 AM CDT Med discontinued on 10/10/2018. documented in this encounter Plan of Treatment Upcoming Encounters Date Type Specialty Care Team Description 01/18/2022 Telemedicine Family Medicine Sebastian Griffiths MD [address] [place], [place] [address] (Wo rk) documented as of this encounter Visit Diagnoses Not on filedocumented in this encounter Care Teams Bank Representative Relationship Specialty Start Date End Date Sebastian Griffiths MD PCP - General 10/24/17 [address] [place], [place] [phone] documented as of this encounter
--- OUTSIDE RECORDS SUMMARY | 2021-12-09 21:32 | XMS_ITS | Encounter Summary ---
:1950 Author Organization [facility] Address [address] [place] [address] Care Team Providers Name Role Phone Sebastian Griffiths MD Primary Care Provider Reason for Visit Reason Comments Pain pain in left leg, back and h ip Encounter Details Date Type Department Care Team Description 10/10/2018 Office Visit Family [facility] Sebastian Griffiths, Screening for breast cancer (Primary Dx); [address] [facility] Advanced care planning/counseling discus domonique; [place] [address] Degenerative disc disease, l umbar; [phone] Chronic pain syndrome; [place], [place] Hypotension du e to drugs [address] Social History Tobacco Use Types Packs/Day Years Used Date Current Every Day Smoker Cigarettes 1 40 Smokeless Tobacco: Never Used Tobacco Cessation: Ready [...] do you attend pentecostalism or Never 2020 congregational services? Do you [...] Sign Reading Time Taken Comments Blood Pressure 88/52 10/10/2018 1:56 PM CDT Pulse 117 10/10/2018 1:25 PM CDT Temperature 35.7 ??C (96.2 ??F) 10/10/2018 1:25 PM CDT Respiratory Rate 20 10/10/2018 1:25 PM CDT Oxygen Saturation 95% 10/10/2018 1:25 PM CDT Inhaled Oxygen Concentration - - Weight 98.7 kg (217 lb 9.5 oz) 10/10/2018 1:25 PM CDT Height 166.4 cm (5' 5.51) 10/10/2018 1:25 PM CDT Body Mass Index 35.65 10/10/2018 1:25 PM CDT documented in this encounter Patient Instructions Patient InstructionsSebastian Griffiths MD - 10/10/2018 1:40 PM CDT Send me Rehana's phone number. I will get back to you within a week. Stop the Losartan 50mg. Have Rehana send me next week's blood pressure reading. documented in this encounter Progress Notes Sebastian Griffiths MD - 10/10/2018 1:40 PM CDT Estab Patient Visit Subjective Patient ID: Rena Fan is a 68 y.o. female. Chief Complaint Patient presents with ??? Pain pain in left leg, back and hip HPI Patient presents for her chronic low back pain and chronic knee pain. Last time I saw her I did get an x-ray of her lumbar spine showing rather considerable disc degeneration, hypertrophic spurring, and her old upper lumbar compression fracture. She has use a walker for her ambulation around the housebut it very painful and usually she, even with a walker she will have to sit after couple minutes ofbeing up. No recent falls but she has had some near misses. She states she is using her gabapentin, diclofenac gel, extra strength acetaminophen without much help. Patient does have a nurse visit her once a week to set up her medications. She states her sons will visit her once a week. Patient has a history of substance abuse and has failed her opioid contract at least 3 times. The following portions of the patient's chart were reviewed in this encounter and updated as appropriate: Tobacco Allergies Meds Problems Med Hx Soc Hx Review of Systems No change in bowel movements or bladder habits. Objective Visit Vitals BP 88/52 (BP Location: Right arm, Patient Position: Sitting) Pulse (!) 117 Temp (!) 35.7 ??C (96.2 ??F) (Temporal) Resp 20 Ht 1.664 m (5' 5.51) Wt 98.7 kg (217 lb 9.5 oz) SpO2 95% BMI 35.65 kg/m?? OB Status Postmenopausal Smoking Status Current Every Day Smoker BSA 2.14 m?? Physical Exam Tired appearing female in no acute distress. Answers questions appropriately. Ambulates very slowly with a walker even when not knowingly observed. Heart: Regular rate and rhythm without murmur. Lungs: Clear. Extremities: No edema. Previous back x-rays were reviewed with the patient. Assessment/Plan Diagnoses and all orders for this visit: Screening for breast cancer - Mammogram breast screening bilateral; Future Advanced care planning/counseling discussion Degenerative disc disease, lumbar - Mobility Devices Chronic pain syndrome Hypotension due to drugs Patient Instructions Send me Rehana's phone number. I will get back to you within a week. Stop the Losartan 50mg. Have Rehana send me next week's blood pressure reading. For safety concerns, patient would benefit from a scooter for mobility in her home. documented in this encounter Plan of Treatment Upcoming Encounters Date Type Specialty Care Team Description 01/18/2022 Telemedicine Family Medicine Sebastian Griffiths MD [address] [place] [phone] (Wo rk) documented as of this encounter Procedures Procedure Name Priority Date/Time Associated Diagnosis Comme nts MAMMO BREAST Routine 11/07/2018 9:55 AM Screening for breast R esults for this SCREENING BILATERAL CDT cancer procedur e are in the results section. documented in this encounter Results Mammogram breast screening bilateral (11/07/2018 9:55 AM CDT) Anatomical Region Laterality Modality Breast Bilateral Mammography Specimen (Source) Anatomical Collection Method Collection Time Re ceived Time Location / / Volume Laterality 11/07/2018 9:55 AM CDT Impressions 11/07/2018 11:16 AM CDT IMPRESSION: BILATERAL BREASTS Negative, no evidence of malignancy. Nor mal interval follow-up is recommended in 12 months. ASSESSMENT: BI-RADS 1: Final Overall Assessment: Neg ative ResultCode BIRADS: 1 Side: B-Bilateral Breast composition: 1-The breasts are al most entirely fatty Recommendation: N-Normal interval follow up in 12 months CAD REVIEW: Computer aided detection equipment was u sed during the interpretation of this study.- Narrative 11/07/2018 11:16 AM CDT EXAM DESCRIPTION: MAMMOGRAM BILATERAL SCREENING DIGITAL INDICATION: screening RISK FACTOR: Personal: Post-menopausal patient Family : No family history of breast cancer PROCEDURES PERFORMED: Excisional biopsy, Left Breast, 03/20/1995 , Benign COMPARISON: Comparison is made to images from 2008 (Bilateral) FINDINGS: Bilateral Breast Findings: The breasts are almost entirely fatty. ? ?Postoperative changes of the left breast consistent with previous excision al biopsy. ??No significant masses, calcifications or other abnormalities ar e seen. Procedure Note Warren Dixon MD - 11/07/2018Form atting of this note might be different from the original. EXAM DESCRIPTION: MAMMOGRAM BILATERAL SCREENING DIGITAL INDICATION: screening RISK FACTOR: Personal: Post-menopausal patient Family : No family history of breast cancer PROCEDURES PERFORMED: Excisional biopsy, Left Breast, 03/20/1995 , Benign COMPARISON: Comparison is made to images from 2008 (Bilateral) FINDINGS: Bilateral Breast Findings: The breasts are almost entirely fatty. P ostoperative changes of the left breast consistent with previous excision al biopsy. No significant masses, calcifications or other abnormalities ar e seen. IMPRESSION: BILATERAL BREASTS Negative, no evidence of malignancy. Nor mal interval follow-up is recommended in 12 months. ASSESSMENT: BI-RADS 1: Final Overall Assessment: Neg ative ResultCode BIRADS: 1 Side: B-Bilateral Breast composition: 1-The breasts are al most entirely fatty Recommendation: N-Normal interval follow up in 12 months CAD REVIEW: Computer aided detection equipment was u sed during the interpretation of this study.- Sebastian Griffiths MD IMG BI PROCEDURES documented in this encounter Visit Diagnoses Diagnosis Advanced care planning/counseling discus domonique Degenerative disc disease, lumbar Chronic pain syndrome Hypotension due to drugs Other iatrogenic hypotension documented in this encounter Care Teams Post Tronic Machine Operator Relationship Specialty Start Date End Date Sebastian Griffiths MD PCP - General 10/24/[address] [place] [id number] documented as of this encounter
--- OUTSIDE RECORDS SUMMARY | 2021-12-09 21:32 | XMS_ITS | Encounter Summary ---
:[address] [facility] Address [address] [place] [address] Care Team Providers Name Role Phone Sebastian Griffiths MD Primary Care Provider Reason for Visit Reason Comments Med Refill Encounter Details Date Type Department Care Team Description 12/05/2018 Refill SE Family Med Sebastian Griffiths MD Insomnia, unspecified type; [address] Controlled type 2 diabetes mellitus with out complication, without long-term current use of insulin ([facility]) [place] [address] [place] [address] [phone] (Wo rk) Social History Tobacco Use Types [...] do you attend adventism or Never 2020 latter-day services? Do you [...] Telephone Encounter - Lindsay Ny LPN - 12/10/2018 8:38 AM CDT Last visit in Provider Department: 10/10/2018 Upcoming appointment with Provider: 12/24/2018 Last Rx: Zolpidem 5 mg 07/05/2018 # 90, 1 refill Januvia 100 mg 08/31/2018 # 90, 0 refills Gabapentin 600 mg 10/17/2018 # 90, 0 refills Requested Prescriptions Pending Prescriptions Disp Refills ??? zolpidem (AMBIEN) 5 MG tablet [Pharmacy Med Name: ZOLPIDEM TARTRATE 5MG TABS] 90 tablet 1 Sig: TAKE ONE TABLET BY MOUTH AT BEDTIME NEEDED FOR SLEEP ??? JANUVIA 100 MG tablet [Pharmacy Med Name: JANUVIA 100MG TABS] 90 tablet 0 Sig: TAKE ONE TABLET BY MOUTH EVERY DAY IN THE MORNING ??? gabapentin (NEURONTIN) 600 MG tablet [Pharmacy Med Name: GABAPENTIN 600MG TABS] 90 tablet 0 Sig: TAKE ONE TABLET BY MOUTH THREE TIMES A DAY ALONG WITH 300 MG CAPSULE Labs: Component Latest Ref Rng & Units [...] below Component Latest Ref Rng & Units 06/26/2018 Cholesterol 0 - 199 mg/dL 159 Triglycerides 0 - 149 mg/dL 238 (A) HDL 40 - 60 mg/dL 53 LDL Calculated 0 - 99 mg/dL 58 Component Latest Ref Rng & Units 06/26/2018 Hemoglobin A1C 4.0 - 5.6 % A1C 5.9 (H) PHQ9: / GAD7: refused at 08/14/2018 appointment documented in this encounter Plan of Treatment Upcoming Encounters Date Type Specialty Care Team Description 01/18/2022 Telemedicine Family Medicine Sebastian Griffiths MD [address] [place], [place] [address] (Wo rk) documented as of this encounter Visit Diagnoses Diagnosis Insomnia, unspecified type Controlled type 2 diabetes mellitus with out complication, without long-term current use of insulin (HCC) documented in this encounter Care Teams Clarity Specialists Relationship Specialty Start Date End Date Sebastian Griffiths MD PCP - General 10/24/[address] [place] [address] [phone] documented as of this encounter
--- OUTSIDE RECORDS SUMMARY | 2021-12-09 21:32 | XMS_ITS | Encounter Summary ---
:1950 Author Organization [facility] Address [address] [place] [address] Care Team Providers Name Role Phone Sebastian Griffiths MD Primary Care Provider Encounter Details Date Type Department Care Team Description 10/01/2018 Refill SE Family Med Sebastian Griffiths MD Chronic obstructive [address] [facility] [address] [facility] pulmonary disease, [place] [address] [place] [address] unspecified COPD type [phone] (Wo rk) ([facility]) (Primary Dx) Social History Tobacco Use Types [...] do you attend episcopalian or Never 2020 judaism services? Do you [...] this encounter Miscellaneous Notes Telephone Encounter - Kenia Flores MA - 10/01/2018 2:21 PM CDT [facility] Nurse Rehana states pt is smoking 1/2 pack of cigarettes per day instead of 3 - 4 cigarettes per day. Pt is requesting 14 mg patches. Last rx was 09/18/2018 nicotine (Nicoderm CQ) 7 mg / 24 hr Last appt 08/14 Next appt 10/10 and 11/13 documented in this encounter Plan of Treatment Upcoming Encounters Date Type Specialty Care Team Description 01/18/2022 Telemedicine Family Medicine Sebastian Griffiths MD [address] [place], [place] [address] (Wo rk) documented as of this encounter Visit Diagnoses Diagnosis Chronic obstructive pulmonary disease, u nspecified COPD type (HCC) - Primary documented in this encounter Care Teams Guest Relations Executive Relationship Specialty Start Date End Date Sebastian Griffiths MD PCP - General 10/24/[address] [place] [address] [phone] documented as of this encounter
--- OUTSIDE RECORDS SUMMARY | 2021-12-09 21:32 | XMS_ITS | Encounter Summary ---
:1950 Author Organization [facility] Address [address] [place] [address] Care Team Providers Name Role Phone Sebastian Griffiths MD Primary Care Provider Reason for Visit Reason Onset Date Comments Oral Swelling 02/18/2019 Encounter Details Date Type Department Care Team Description 02/18/2019 Nurse Triage [facility] Sebastian Griffiths MD [address] [facility] [address] [place] [address] [place] [address] [phone] (Wo rk) Social History Tobacco Use Types [...] do you attend catholic or Never 2020 religion services? Do you belong to any clubs [...] Telephone Encounter - Sebastian Griffiths MD - 02/18/2019 1:24 PM CST Noted. It appears the patient went to [place]. T HEMMER Telephone Encounter - Martha Salazar RN - 02/18/2019 10:18 AM CST Patient calling in with concerns of tongue swelling. She says that it started last week, but it wentdown so she didn't worry about it. She went to the ER over the weekend for a fall, and says that it wasn't looked at. She says that she has had occasional difficulty breathing. She has not started any new medications or supplements that she is aware of, and she hasn't eaten any new or unusual foods. She hasn't had any other exposures that she can think of that would explain her symptoms. On the phone, it is difficult to understand her. Advised emergency room care. Reason for Disposition ??? Nursing judgment Protocols used: NO PROTOCOL AVAILABLE - SICK ADULT-A-OH T HEMMER documented in this encounter Plan of Treatment Upcoming Encounters Date Type Specialty Care Team Description 01/18/2022 Telemedicine Family Medicine Sebastian Griffiths MD [address] [place] [phone] (Wo rk) documented as of this encounter Visit Diagnoses Not on filedocumented in this encounter Care Teams Pharmacy Laboratory Technician Relationship Specialty Start Date End Date Sebastian Griffiths MD PCP - General 10/24/[address] [place] [phone] documented as of this encounter
--- OUTSIDE RECORDS SUMMARY | 2021-12-09 21:32 | XMS_ITS | Encounter Summary ---
:1950 Author Organization [facility] Address [address] [place] [address] Care Team Providers Name Role Phone Sebastian Griffiths MD Primary Care Provider Reason for Visit Reason Comments Pain Med Refill Encounter Details Date Type Department Care Team Description 12/24/2018 Office Visit SE Family Med Sebastian Griffiths, Acute viral bronchitis (Prim sudhakar Dx); [address] [facility] Advance directive discussed with patient ; [place] [address] Primary osteoarthritis of le ft knee; [phone] Degenerative disc [place] [address] Social History Tobacco Use Types [...] do you attend scientology or Never 2020 pentecostal services? Do you [...] Sign Reading Time Taken Comments Blood Pressure 148/82 12/24/2018 1:59 PM CDT Pulse 99 12/24/2018 12:25 PM CDT Temperature 36.6 ??C (97.8 ??F) 12/24/2018 12:25 PM CDT Respiratory Rate 20 12/24/2018 12:25 PM CDT Oxygen Saturation 98% 12/24/2018 12:25 PM CDT Inhaled Oxygen Concentration - - Weight 105 kg (230 lb 9.6 oz) 12/24/2018 12:25 PM CDT Height 165.1 cm (5' 5) 12/24/2018 12:25 PM CDT Body Mass Index 38.37 12/24/2018 12:25 PM CDT documented in this encounter Patient Instructions Patient InstructionsSebastian Griffiths MD - 12/24/2018 1:40 PM CDT I will call Lucrecia and your before your birthday with a decision on your meds. Pneumonia shot today. Last one you will need. Series complete. Continue to try to quit smoking. Use your inhalers. documented in this encounter Progress Notes Sebastian Griffiths MD - 12/24/2018 1:40 PM CDT Estab Patient Visit Subjective Patient ID: Rena Fan is a 68 y.o. female. Chief Complaint Patient presents with ??? Pain ??? Med Refill HPI Patient presents for recheck of her chronic low back lumbar disc disease and chronic DJD of knees. Still is inquiring about pain med use. I was not able to get a hold of her nurse Lucrecia regarding her home situation. Apparently Lucrecia comes once a week to place her meds out. Otherwise her meds are locked up. Patient was not able to get a scooter either. She is not able to use her walker very well because of a chronic wrist condition due to a poorly healed right wrist fracture. Because of her back and her knees she does not ambulate well at all, certainly not safely. Her sons visit her once a week. They live locally. She has friends through scientology help her with groceries. She usually needs help to get dressed. The following portions of the patient's chart were reviewed in this encounter and updated as appropriate: Tobacco Allergies Meds Problems Med Hx Surg Hx OB Status Fam Hx Soc Hx Review of Systems Denies any urinary retention. She treats her chronic constipation with fiber. She also states that she is developed a little bit of a wheezy cough over the past few days. No fevers or chills. She is using her nebulizers at home. Objective Visit Vitals BP (!) 162/97 (BP Location: Right arm, Patient Position: Sitting) Pulse 99 Temp 36.6 ??C (97.8 ??F) (Temporal) Resp 20 Ht 1.651 m (5' 5) Wt 105 kg (230 lb 9.6 oz) SpO2 98% BMI 38.37 kg/m?? OB Status Postmenopausal Smoking Status Current Every Day Smoker BSA 2.19 m?? Physical Exam General: Female in no acute distress. Has a wheezy cough. Talks in complete sentences. Lungs: Bilateral rhonchi and wheezing. Heart: Regular rate and rhythm no murmur. Extremities: No edema. Patient is here with her walker. Assessment/Plan Diagnoses and all orders for this visit: Acute viral bronchitis Advance directive discussed with patient Primary osteoarthritis of left knee Degenerative disc disease, lumbar Other orders - Pneumococcal polysaccharide vaccine 23-valent greater than or equal to 2yo subcutaneous/IM Patient Instructions I will call Lucrecia and your before your birthday with a decision on your meds. Pneumonia shot today. Last one you will need. Series complete. Continue to try to quit smoking. Use your inhalers. documented in this encounter Plan of Treatment Upcoming Encounters Date Type Specialty Care Team Description 01/18/2022 Telemedicine Family Medicine Sebastian Griffiths MD [address] [place] [phone] (Wo rk) documented as of this encounter Visit Diagnoses Diagnosis Acute viral bronchitis - Primary Advance directive discussed with patient Primary osteoarthritis of left knee Degenerative disc disease, lumbar documented in this encounter Care Teams Service Delivery Management Consultant Relationship Specialty Start Date End Date Sebastian Griffiths MD PCP - General 10/24/[address] [place] [address] [phone] documented as of this encounter
--- OUTSIDE RECORDS SUMMARY | 2021-12-09 21:32 | XMS_ITS | Encounter Summary ---
:1950 Author Organization [facility] Address [address] [place] [address] Care Team Providers Name Role Phone Sebastian Griffiths MD Primary Care Provider Reason for Visit Reason Comments Med Refill Encounter Details Date Type Department Care Team Description 12/07/2018 Refill SE Family Med Sebastian Griffiths MD Allergic rhinitis, unspecified seasonali ty, unspecified trigger (Primary Dx); [address] [facility] [address] Generalized [place] [address] [place] [address] [phone] (Wo rk) Social History Tobacco Use Types [...] you attend latter day or Never 2020 zoroastrianism services? Do you [...] Telephone Encounter - Becki Blanco MA - 12/11/2018 11:21 AM CDT Last visit in Provider Department: 10.10.18 Upcoming appointment with Provider: 12/24/2018 Last Rx: 08.14.18 Requested Prescriptions Pending Prescriptions Disp Refills ??? fluticasone (FLONASE) 50 MCG/ACT nasal spray [Pharmacy Med Name: FLUTICASONE 50 MCG SPY 16 GM] 16 g 6 Sig: USE (1) SPRAY TWICE DAILY IN EACH NOSTRIL ??? LORazepam (ATIVAN) 1 MG tablet [Pharmacy Med Name: LORAZEPAM 1MG TABS] 90 tablet 2 Sig: TAKE 1 TABLET BY MOUTH THREE TIMES A DAY documented in this encounter Plan of Treatment Upcoming Encounters Date Type Specialty Care Team Description 01/18/2022 Telemedicine Family Medicine Sebastian Griffiths MD [address] [place], [place] [address] (Wo rk) documented as of this encounter Visit Diagnoses Diagnosis Allergic rhinitis, unspecified seasonali ty, unspecified trigger - Primary Generalized anxiety disorder documented in this encounter Care Teams Paperhanger Relationship Specialty Start Date End Date Sebastian Griffiths MD PCP - General 10/24/[address] [place] [address] [phone] documented as of this encounter
--- OUTSIDE RECORDS SUMMARY | 2021-12-09 21:32 | XMS_ITS | Encounter Summary ---
:1950 Author Organization [facility] Address [address] [place] [address] Care Team Providers Name Role Phone Sebastian Griffiths MD Primary Care Provider Encounter Details Date Type Department Care Team Description 03/01/2019 Refill SE Family Med Sebastian Griffiths MD Degenerative disc [address] disease, [place] [address] [place] [address] [phone] (Wo rk) Social History Tobacco Use Types [...] do you attend congregational or Never 2020 jehovah's witness services? Do [...] this encounter Miscellaneous Notes Telephone Encounter - Martha Salazar RN - 03/01/2019 10:21 AM CST Patient requesting oxycodone Last fill 02/11/19 for #60 tabs, 0 refills Last visit 12/24/18 [employer] Telephone Encounter - Tamie Stewart - 03/01/2019 10:18 AM CST oxyCODONE (ROXICODONE) 5 MG immediate release tablet Pt needing refill [employer] documented in this encounter Plan of Treatment Upcoming Encounters Date Type Specialty Care Team Description 01/18/2022 Telemedicine Family Medicine Sebastian Griffiths MD [address] [place], [place] [address] (Wo rk) documented as of this encounter Visit Diagnoses Diagnosis Degenerative disc disease, lumbar documented in this encounter Additional Health Concerns Infection Onset Date Last Indicated Resolved Time COVID-19 Rule Out 10/27/2019 10/27/2019 10/27/2019 11: 08 PM CDT documented as of this encounter Care Teams Front End Manager Relationship Specialty Start Date End Date Sebastian Griffiths MD PCP - General 10/24/17 [facility] [address] [place], [place] [address] documented as of this encounter
--- OUTSIDE RECORDS SUMMARY | 2021-12-09 21:32 | XMS_ITS | Encounter Summary ---
:1950 Author Organization [facility] Address [address] [place] [address] Care Team Providers Name Role Phone Sebastian Griffiths MD Primary Care Provider Reason for Visit Reason Comments Med Refill Encounter Details Date Type Department Care Team Description 02/13/2019 Refill SE Family Med Sebastian Griffiths MD Anxiety; [address] [facility] [address] [place] [address] [place] [address] [phone] (Wo rk) Social History Tobacco Use Types [...] do you attend hinduism or Never 2020 denominational services? Do you [...] Telephone Encounter - Mandi Kwon MA - 02/19/2019 9:24 AM CST Last visit in Provider Department: 12/24/2018 Upcoming appointment with Provider: 03/12/2019 Last Rx: #90 +3 REFILLS 07/29/2018 Refills have Requested Prescriptions Pending Prescriptions Disp Refills ??? hydrOXYzine (ATARAX) 25 MG tablet [Pharmacy Med Name: HYDROXYZINE HCL 25MG TABS] 90 tablet 3 Sig: TAKE 1 TABLET BY MOUTH EVERY 8 HOURS IF NEEDED FOR ITCHING Vitals: BP Readings from Last 2 Encounters: 02/16/19 139/58 12/24/18 148/82 PREPARER documented in this encounter Plan of Treatment Upcoming Encounters Date Type Specialty Care Team Description 01/18/2022 Telemedicine Family Medicine Sebastian Griffiths MD [address] [place], [place] [address] (Wo rk) documented as of this encounter Visit Diagnoses Diagnosis Anxiety Anxiety state, unspecified Pruritic condition Unspecified pruritic disorder documented in this encounter Care Teams Running Rigger Relationship Specialty Start Date End Date Sebastian Griffiths MD PCP - General 10/24/17 [address] [place], [place] [phone] documented as of this encounter
--- OUTSIDE RECORDS SUMMARY | 2021-12-09 21:32 | XMS_ITS | Encounter Summary ---
:1950 Author Organization Address [address] [place] [id number] Care Team Providers Name Role Phone Sebastian Griffiths MD Primary Care Provider Reason for Visit Reason Comments Knee Pain Encounter Details Date Type Department Care Team Description 02/16/2019 Emergency [facility] Emergency Anastacia Garvin C hronic pain of both Room knees (Primary Dx) [address] [place] [address] [place] [address] [place], [place] [phone] [id number] Social History Tobacco Use Types Packs/Day Years [...] do you attend baptist or Never 2020 voodoo services? Do you [...] Sign Reading Time Taken Comments Blood Pressure 139/58 02/16/2019 4:07 PM SURVEYOR Pulse 95 02/16/2019 4:07 PM SURVEYOR Temperature 36.4 ??C (97.5 ??F) 02/16/2019 3:00 PM SURVEYOR Respiratory Rate 16 02/16/2019 4:07 PM SURVEYOR Oxygen Saturation 94% 02/16/2019 4:07 PM SURVEYOR Inhaled Oxygen Concentration - - Weight 97.5 kg (214 lb 15.2 oz) 02/16/2019 3:00 PM SURVEYOR Height 165.1 cm (5' 5) 02/16/2019 3:00 PM SURVEYOR Body Mass Index 35.77 02/16/2019 3:00 PM SURVEYOR documented in this encounter Discharge Instructions Discharge InstructionsLizbeth Browne PA-C - 02/16/2019 4:33 PM CST Take your prescriptions as directed at home. Apply ice and elevate your knees as needed for comfort. Make an appointment with your primary care provider following this ER visit for further evaluation. If you develop any worsening symptoms, follow-up with your primary care provider or return to the ER. EYOR AttachmentsThe following attachments cannot be sent through Care Everywhere.Knee Pain Adult Gjpl-ph-Eyie (Estonian)documented in this encounter Medications at Time of [...] asthma, unspecified asthma severity, unspecified whether persistent ACCU-CHEK SMARTVIEW USE DIRECTED 200 each 3 11/26/2018 07/08/2020 test stripIndications: TESTING TWICE DAILY Controlled type 2 diabetes mellitus without complication, without long-term current use of insulin ([facility]) ACETAMINOPHEN EXTRA TAKE TWO CAPLETS BY 100 [...] long-term current use of insulin ([facility]) BASAGLAR KWIKPEN 100 INJECT 20 UNITS 15 mL 5 04/06/2018 07/22/2019 UNIT/ML SUBCUTANEOUSLY AT 5PM injectionIndications: Controlled type 2 diabetes mellitus without complication, without long-term current use of insulin ([facility]) Cetirizine HCl 10 MG Take 10 mg by mouth 1 0 12/03/2020 capsule (one) time each day if needed diclofenac (VOLTAREN) 1 Apply topically 2 100 g 1 03/2706/01/2021 % topical (two) times a day To gelIndications: Acute affected shoulder pain of right shoulder pain DULoxetine (CYMBALTA) TAKE TWO CAPSULES BY 60 capsule 5 09/1905/02/[address] MOUTH DAILY capsuleIndications: Major depressive disorder, recurrent episode, moderate (HCC) EPINEPHrine (EPIPEN) INJECT NEEDED FOR 1 Syringe 1 04/0605/18/2020 0.3 MG/0.3ML injection A BEE STING syringeIndications: Bee sting allergy fluticasone (FLONASE) USE (1) SPRAY TWICE 16 g 6 12/1105/18/2020 50 MCG/ACT nasal DAILY IN EACH NOSTRIL sprayIndications: Allergic rhinitis, unspecified seasonality, unspecified trigger gabapentin (NEURONTIN) TAKE ONE CAPSULE BY 90 capsule 5 04/201812/04/2019 300 MG MOUTH THREE TIMES A capsuleIndications: DAY Chronic pain syndrome gabapentin (NEURONTIN) TAKE ONE TABLET BY 270 tablet 0 12/1004/15/2019 600 MG MOUTH THREE TIMES A tabletIndications: DAY ALONG WITH 300 MG Controlled type 2 CAPSULE diabetes mellitus without complication, without long-term current use of insulin (HCC) hydrOXYzine (ATARAX) 25 Take 1 tablet (25 mg 90 tablet 3 12/04/2019 MG tabletIndications: total) by mouth every Anxiety, Pruritic 8 (eight) hours if condition needed for itching hydrOXYzine (ATARAX) 25 TAKE 1 TABLET BY 90 tablet 0 201803/29/2019 MG tabletIndications: MOUTH EVERY 8 HOURS Anxiety, Pruritic IF NEEDED FOR ITCHING condition Insulin Pen Needle 31G 1 Pen needle 1 (one) 100 each 1 05/18/2020 X 8 MM miscIndications: time each day Controlled type 2 diabetes mellitus without complication, without long-term current use of insulin (HCC) ipratropium-albuterol USE ONE (1) VIAL VIA 180 mL 3 03/2010/05/2020 (DUO-NEB) 0.5-2.5 mg/3 NEBULIZER UP TO EVERY mL nebulizer 4 HOURS NEEDED solutionIndications: WHEEZING. Chronic obstructive pulmonary disease, unspecified COPD type ([facility]) JANUVIA 100 MG TAKE ONE TABLET BY 90 tablet 0 12/10/2018 tabletIndications: MOUTH EVERY DAY IN Controlled type 2 THE MORNING diabetes mellitus without complication, without long-term current use of insulin ([facility]) latanoprost (XALATAN) Administer 1 drop [...] TAKE 1 TABLET BY 90 tablet 2 201805/14/2019 tabletIndications: MOUTH THREE TIMES A Generalized anxiety DAY disorder LORazepam (ATIVAN) 1 MG TAKE 1 TABLET BY 90 tablet 1 201805/07/2019 tabletIndications: MOUTH THREE TIMES A Generalized anxiety DAY disorder losartan (COZAAR) 50 MG TAKE 1 TABLET BY 90 tablet 3 201803/12/2019 tabletIndications: MOUTH EVERY MORNING Controlled type 2 (FOR BLOOD PRESSURE) diabetes mellitus without complication, without long-term current use of insulin ([facility]) methocarbamol (ROBAXIN) TAKE 1 TABLET BY 120 tablet 3 201803/04/2019 500 MG MOUTH TWICE DAILY tabletIndications: NEEDED FOR MUSCLE Acute pain of right SPASMS shoulder methocarbamol (ROBAXIN) TAKE 1 TABLET BY 3 201807/08/2019 500 MG tablet MOUTH TWICE DAILY NEEDED FOR MUSCLE SPASMS moxifloxacin (VIGAMOX) Administer 1 drop 0 201812/03/2020 0.5 % ophthalmic into affected eye(s) solution 4 (four) times a day Right eye Multiple Vitamin TAKE 1 TABLET BY 100 each 3 03/27/2018 (TAB-A-CORY) MOUTH EVERY MORNING tabletIndications: Preventative health care nicotine (NICODERM CQ) Place 1 patch on the 30 patch 1 05/18/2020 14 MG/24HRIndications: skin 1 (one) time Chronic obstructive each day at the same pulmonary disease, time unspecified COPD type (HCC) oxyCODONE (ROXICODONE) Take 1 tablet (5 mg 60 tablet 0 01/1903/12/2019 5 MG immediate release total) by mouth every tabletIndications: 4 (four) hours if Degenerative disc needed for severe disease, lumbar pain May use up to 2 a day maximum dose. Oxymetazoline HCl 0 06/13/2017 020 (NASAL SPRAY NA) pantoprazole (PROTONIX) TAKE 1 TABLET BY 90 tablet 3 201804/15/2019 40 MG EC MOUTH DAILY tabletIndications: Gastroesophageal reflux disease without esophagitis risperiDONE (RisperDAL) TAKE 1 TABLET BY 60 tablet 5 201804/25/2019 2 MG tabletIndications: MOUTH TWICE DAILY Major [...] TAKE ONE TABLET BY 30 tablet 5 12/1005/02/2019 tabletIndications: MOUTH AT BEDTIME Insomnia, unspecified NEEDED FOR SLEEP type documented as of this encounter Progress Notes Sebastian Griffiths MD - 02/16/2019 4:56 PM CST Reviewed note, thanks. EYOR documented in this encounter ED Notes Moriah Alejo RN - 02/16/2019 2:53 PM CST Pt was sleep walking yesterday and hit b/l knee on bathtub. Pt worsened today and she now has a headache. Given 50mcg of intranasal fentanyl for pain. Somewhat lethargic, no respiratory distress at this time. AOx3. EYOR Lizbeth Browne PA-C - 02/16/2019 2:30 PM CST HPI Chief Complaint Patient presents with ??? Knee Pain This is a 69-year-old female who comes into the emergency department via ambulance for bilateral knee pain. Patient stated that she was sleepwalking 2 days ago and walked in to her tub and hit both of her knees. Paramedics stated at home she walked with and without her walker with absolutely no discomfort. When she got to the emergency department, she acted like she could not even get off the cart. Paramedics did want me to be aware of this behavior. She states that the knee pain is causing a headache. She complained of neck pain to the paramedics, palpation revealed no cervical thoracic or lumbar tenderness. Paramedics know the patient well and stated that she had a flatter affect today and it seemed like she could be under the influence. She has prescription narcotics and benzodiazepines from her primary care provider for lumbar DJD and bilateral knee DJD. Paramedics also did account of her Ativan as most of her other drugs are locked up and according to their count, she is missing approximately 9 mg of lorazepam since her last fill. She is noted to actively seek out drugs when coming into the emergency department. This is been a long- standing history of the patient's. Denies any chest pain, fevers or shortness of breath. She is neurologically intact with the exception of her drowsiness sec ondary to the narcotic given. When performing patient's history, I told her that she was given 50 mcg of fentanyl and she stated that her knees hurt. I told her this is a very high dose of narcotic andshe would not be getting any further pain medication in the emergency department. She asked why and again I told I did not give fentanyl unless she were to have a fracture. Knee Pain Location: Knee Time since incident: 2 days Injury: yes Mechanism of injury comment: Bumped both of her knees on a tub while sleepwalking Knee location: L knee and R knee Pain details: Quality: Aching Radiates to: Does not radiate Severity: Severe Onset quality: Sudden Duration: 2 days Timing: Constant Progression: Unchanged Chronicity: New Prior injury to area: Yes Relieved by: Nothing Worsened by: Nothing Ineffective treatments: Narcotics at home, narcotics in the ambulance and benzodiazepines at home. Associated symptoms: neck pain (Patient is chronic neck pain) Associated symptoms: no back pain, no decreased ROM, no fatigue, no fever, no itching, no muscle weakness, no numbness, no stiffness, no swelling and no tingling Risk factors: obesity Risk factors: no concern for non-accidental trauma, no frequent fractures, no known bone disorder and no recent illness Patient History Patient History Allergies Allergen Reactions [...] ??? Type 2 diabetes mellitus, controlled (HCC) Past Surgical History: Procedure Laterality Date ??? [...] Used Substance Use Topics ??? Alcohol use: Not Currently Frequency: Never ??? Drug use: Not Currently Review of Systems Review of Systems Constitutional: Negative for chills, fatigue and fever. HENT: Negative. Eyes: Negative. Respiratory: Negative for chest tightness, shortness of breath and wheezing. Cardiovascular: Negative for chest pain and palpitations. Gastrointestinal: Negative for abdominal pain, diarrhea, nausea and vomiting. Endocrine: Negative. Genitourinary: Negative for dysuria, flank pain, frequency and urgency. Musculoskeletal: Positive for gait problem (Secondary to knee pain) and neck pain (Patient is chronic neck pain). Negative for back pain and stiffness. Skin: Negative for itching, pallor, rash and wound. Allergic/Immunologic: Negative. Neurological: Negative for dizziness, tremors, syncope and light-headedness. Hematological: Negative. Psychiatric/Behavioral: Patient is very sleepy and slurring her words secondary to narcotic medication Physical Exam ED Triage Vitals Temp Heart Rate Resp BP 02/16/19 1500 02/16/19 1432 02/16/19 1432 02/16/19 1500 36.4 ??C (97.5 ??F) 108 14 108/71 SpO2 Temp src Heart Rate Source Patient Position 02/16/19 1432 -- -- -- 95 % BP Location FiO2 (%) -- -- Physical Exam Vitals signs and nursing note reviewed. Constitutional: General: She is not in acute distress. Appearance: Normal appearance. She is obese. She is not ill-appearing or toxic-appearing. Cardiovascular: Rate and Rhythm: Normal rate and regular rhythm. Heart sounds: No murmur. Pulmonary: Effort: Pulmonary effort is normal. Breath sounds: Examination of the right-upper field reveals decreased breath sounds. Examination ofthe left-upper field reveals decreased breath sounds. Examination of the right-middle field reveals decreased breath sounds. Examination of the left-middle field reveals decreased breath sounds. Examina tion of the right-lower field reveals decreased breath sounds. Examination of the left-lower field reveals decreased breath sounds. Decreased breath sounds present. No wheezing, rhonchi or rales. Musculoskeletal: Right knee: She exhibits normal range of motion, no swelling, no effusion and no bony tenderness. Tenderness found. Medial joint line and lateral joint line tenderness noted. Left knee: She exhibits normal range of motion, no swelling, no laceration, no erythema and no bonytenderness. No tenderness found. Comments: Patient has bilateral well-healed surgical scars from bilateral knee replacements in the past. There is no swelling or signs of trauma noted. When touching bilateral medial and lateral joint lines she complains of pain. Skin: General: Skin is warm and dry. Capillary Refill: Capillary refill takes less than 2 seconds. Neurological: General: No focal deficit present. Mental Status: She is alert and oriented to person, place, and time. Motor: Weakness present. Psychiatric: Comments: Patient is clearly oversedated as she is very sleepy and her speech is garbled. Wanchese Coma Scale Score: 15 Procedures No results found. Labs Reviewed - No data to display ED Course & MDM MDM Follow Up Sebastian Griffiths MD [address] [place] [id number] Schedule an appointment as soon as possible for a visit in 2 days Current Discharge Medication List CONTINUE these medications which have NOT CHANGED Details ACCU-CHEK SMARTVIEW test strip USE DIRECTED TESTING TWICE DAILY Qty: 200 each, Refills: 3 Comments: Is testing done >1x/day for non-insulin treated OR >3x/day for insulin treated patients? No Last HA1c: Hemoglobin A1C (% A1C) Date 06/26/2018 Value 5.9 (H)----Last Kfyx-Bd-Obge: 10/10/2018 Associated Diagnoses: Controlled type 2 diabetes mellitus without complication, without long-term current use of insulin ([facility]) ACETAMINOPHEN EXTRA STRENGTH 500 MG tablet TAKE TWO CAPLETS BY MOUTH THREE TIMES A DAY NEEDED FORPAIN Qty: 100 tablet, Refills: 11 Associated Diagnoses: Osteoarthritis of both knees, unspecified osteoarthritis type amLODIPine (NORVASC) 5 MG tablet Take 1 tablet (5 mg total) by mouth 1 (one) time each day Qty: 90 tablet, Refills: 3 Associated Diagnoses: Hypertension, essential, benign ASPIRIN LOW DOSE 81 MG chewable tablet CHEW ONE TABLET BY MOUTH DAILY Qty: 100 tablet, Refills: 4 Associated Diagnoses: Controlled type 2 diabetes mellitus without complication, without long-term current use of insulin ([facility]) BASAGLAR KWIKPEN 100 UNIT/ML injection INJECT 20 UNITS SUBCUTANEOUSLY AT 5PM Qty: 15 mL, Refills: 5 Associated Diagnoses: Controlled type 2 diabetes mellitus without complication, without long-term current use of insulin ([facility]) Cetirizine HCl 10 MG capsule Take 10 mg by mouth 1 (one) time each day if needed diclofenac (VOLTAREN) 1 % topical gel Apply topically 2 (two) times a day To affected shoulder pain Qty: 100 g, Refills: 1 Associated Diagnoses: Acute pain of right shoulder docusate sodium (COLACE) 100 MG capsule Take 100 mg by mouth 2 (two) times a day if needed dorzolamide-timolol (COSOPT) 22.3-6.8 MG/ML ophthalmic solution Administer 1 drop into both eyes 2 (two) times a day Qty: 10 mL, Refills: 11 Associated Diagnoses: Primary open angle glaucoma (POAG) of both eyes, severe stage DULoxetine (CYMBALTA) [address] capsule TAKE TWO CAPSULES BY MOUTH DAILY Qty: 60 capsule, Refills: 5 Associated Diagnoses: Major depressive disorder, recurrent episode, moderate ([facility]) EPINEPHrine (EPIPEN) 0.3 MG/0.3ML injection syringe INJECT NEEDED FOR A BEE STING Qty: 1 Syringe, Refills: 1 Associated Diagnoses: Bee sting allergy fluticasone (FLONASE) 50 MCG/ACT nasal spray USE (1) SPRAY TWICE DAILY IN EACH NOSTRIL Qty: 16 g, Refills: 6 Associated Diagnoses: Allergic rhinitis, unspecified seasonality, unspecified trigger gabapentin (NEURONTIN) 300 MG capsule TAKE ONE CAPSULE BY MOUTH THREE TIMES A DAY Qty: 90 capsule, Refills: 5 Associated Diagnoses: Chronic pain syndrome gabapentin (NEURONTIN) 600 MG tablet TAKE ONE TABLET BY MOUTH THREE TIMES A DAY ALONG WITH 300 MG CAPSULE Qty: 270 tablet, Refills: 0 Associated Diagnoses: Controlled type 2 diabetes mellitus without complication, without long-term current use of insulin ([facility]) hydrOXYzine (ATARAX) 25 MG tablet Take 1 tablet (25 mg total) by mouth every 8 (eight) hours if needed for itching Qty: 90 tablet, Refills: 3 Associated Diagnoses: Anxiety; Pruritic condition Insulin Pen Needle 31G X 8 MM misc 1 Pen needle 1 (one) time each day Qty: 100 each, Refills: 1 Comments: Last face to face 10/10/2018 Last A1c 5.9 Associated Diagnoses: Controlled type 2 diabetes mellitus without complication, without long-term current use of insulin ([facility]) ipratropium-albuterol (DUO-NEB) 0.5-2.5 mg/3 mL nebulizer solution USE ONE (1) VIAL VIA NEBULIZER UPTO EVERY 4 HOURS NEEDED WHEEZING. Qty: 180 mL, Refills: 3 Associated Diagnoses: Chronic obstructive pulmonary disease, unspecified COPD type ([facility]) JANUVIA 100 MG tablet TAKE ONE TABLET BY MOUTH EVERY DAY IN THE MORNING Qty: 90 tablet, Refills: 0 Associated Diagnoses: Controlled type 2 diabetes mellitus without complication, without long-term current use of insulin ([facility]) ketorolac (ACULAR) 0.5 % ophthalmic solution Administer 1 drop into affected eye(s) 4 times daily latanoprost (XALATAN) 0.005 % ophthalmic solution Administer 1 drop into affected eye(s) lidocaine (XYLOCAINE) 5 % ointment Apply topically Apply small bead and rub in skin 2-4 times a day over painful back area. Wash off hands. lisinopril-hydroCHLOROthiazide (PRINZIDE,ZESTORETIC) 10-12.5 MG per tablet Take 1 tablet by mouth 1 (one) time each day Qty: 30 tablet, Refills: 11 Associated Diagnoses: Hypertension, essential, benign !! LORazepam (ATIVAN) 1 MG tablet TAKE 1 TABLET BY MOUTH THREE TIMES A DAY Qty: 90 tablet, Refills: 2 Associated Diagnoses: Generalized anxiety disorder !! LORazepam (ATIVAN) 1 MG tablet TAKE 1 TABLET BY MOUTH THREE TIMES A DAY Qty: 90 tablet, Refills: 1 Associated Diagnoses: Generalized anxiety disorder losartan (COZAAR) 50 MG tablet TAKE 1 TABLET BY MOUTH EVERY MORNING (FOR BLOOD PRESSURE) Qty: 90 tablet, Refills: 3 Associated Diagnoses: Controlled type 2 diabetes mellitus without complication, without long-term current use of insulin ([facility]) !! methocarbamol (ROBAXIN) 500 MG tablet TAKE 1 TABLET BY MOUTH TWICE DAILY NEEDED FOR MUSCLE SPASMS Qty: 120 tablet, Refills: 3 Associated Diagnoses: Acute pain of right shoulder !! methocarbamol (ROBAXIN) 500 MG tablet TAKE 1 TABLET BY MOUTH TWICE DAILY NEEDED FOR MUSCLE SPASMS Refills: 3 !! Misc. Devices (RECONSTITUBE) misc glucometer strips See Instructions, testing strips-please fill brand covered by insurance., 100 each, 5 Refill(s) !! Misc. Devices (RECONSTITUBE) misc flex pen needles See Instructions, flex pen needles, 100 each, 5 Refill(s) !! Misc. Devices (RECONSTITUBE) misc lancet See Instructions, lancets, 100 each, 5 Refill(s) !! Misc. Devices (RECONSTITUBE) misc glucometer See Instructions, glucose monitor, 1 each, 0 Refill(s) moxifloxacin (VIGAMOX) 0.5 % ophthalmic solution Administer 1 drop into affected eye(s) 4 (four) times a day Right eye Multiple Vitamin (TAB-A-CORY) tablet TAKE 1 TABLET BY MOUTH EVERY MORNING Qty: 100 each, Refills: 3 Associated Diagnoses: Preventative health care Nebulizers (NEBULIZER COMPRESSOR) misc 1 Units every 4 (four) hours if needed (dyspnea) Last face toface 05/17/2018 Qty: 1 each, Refills: 1 Associated Diagnoses: Uncomplicated asthma, unspecified asthma severity, unspecified whether persistent nicotine (NICODERM CQ) 14 MG/24HR Place 1 patch on the skin 1 (one) time each day at the same time Qty: 30 patch, Refills: 1 Associated Diagnoses: Chronic obstructive pulmonary disease, unspecified COPD type (HCC) nicotine (NICODERM CQ) 7 MG/24HR Place 1 patch on the skin 1 (one) time each day at the same time Qty: 30 patch, Refills: 2 Associated Diagnoses: Tobacco dependency oxyCODONE (ROXICODONE) 5 MG immediate release tablet Take 1 tablet (5 mg total) by mouth every 4 (four) hours if needed for severe pain May use up to 2 a day maximum dose. Qty: 60 tablet, Refills: 0 Associated Diagnoses: Degenerative disc disease, lumbar Oxymetazoline HCl (NASAL SPRAY NA) pantoprazole (PROTONIX) 40 MG EC tablet TAKE 1 TABLET BY MOUTH DAILY Qty: 90 tablet, Refills: 3 Associated Diagnoses: Gastroesophageal reflux disease without esophagitis prednisoLONE acetate (PRED FORTE) 1 % ophthalmic suspension Administer 1 drop into affected eye(s) 4times daily Respiratory Therapy Supplies (NEBULIZER/ADULT MASK) kit 1 kit every 4 (four) hours if needed (dyspnea) Last face to face 05/17/2018 Qty: 1 each, Refills: 1 Associated Diagnoses: Uncomplicated asthma, unspecified asthma severity, unspecified whether persistent risperiDONE (RisperDAL) 2 MG tablet TAKE 1 TABLET BY MOUTH TWICE DAILY Qty: 60 tablet, Refills: 5 Associated Diagnoses: Major depressive disorder, recurrent episode, moderate (HCC) sodium chloride (OCEAN) 0.65 % nasal spray Administer 2 sprays into each nostril 3 (three) times a day if needed for congestion Sofosbuvir-Velpatasvir (EPCLUSA) 400-100 MG tablet Take by mouth 1 (one) time each day STOOL SOFTENER/LAXATIVE 50-8.6 MG per tablet TAKE TWO TABLETS BY MOUTH AT BEDTIME Qty: 180 tablet, Refills: 3 Associated Diagnoses: Chronic constipation timolol (TIMOPTIC) 0.5 % ophthalmic solution Administer 1 drop into affected eye(s) 2 times daily VENTOLIN HFA 108 (90 Base) MCG/ACT inhaler INHALE 1 PUFF BY MOUTH NEEDED Qty: 18 g, Refills: 5 Associated Diagnoses: Chronic obstructive pulmonary disease, unspecified COPD type (HCC) zolpidem (AMBIEN) 5 MG tablet TAKE ONE TABLET BY MOUTH AT BEDTIME NEEDED FOR SLEEP Qty: 30 tablet, Refills: 5 Associated Diagnoses: Insomnia, unspecified type !! - Potential duplicate medications found. Please discuss with provider. Discharge Instructions Attached Instructions KNEE PAIN ADULT [id number] ([place]IAN) [[id number]] Discharge Instructions Take your prescriptions as directed at home. Apply ice and elevate your knees as needed for comfort. Make an appointment with your primary care provider following this ER visit for further evaluation. If you develop any worsening symptoms, follow-up with your primary care provider or return to the ER. ED COURSE and CLINICAL IMPRESSION ED Course as of Feb 16 163 Sat Feb 16, 2019 1507 Received report from the [place] general technician, patient was ambulating with her walker withoutdifficulty at home. As soon as she got to the emergency department she acted like she could barely get off the cart. Paramedics stated this was not a accurate assessment as she could walk without difficulty at home. 50 mcg of fentanyl was given intranasally. She is a very drowsy and is hard for her toarticulate her words secondary to being overmedicated. [CG] 1623 When I went into the room, patient was alert, and awake and answers questions appropriately. She does not appear as drowsy as she was initially upon at admission to the emergency department. [CG] 1624 X-ray appears negative to me. X-ray knee 3 views right [CG] 1625 X-ray appears negative to me. X-ray knee 1-2 views left [CG] 1627 Went into tell patient that the x-rays were negative. Told her that the final radiology read will be back this afternoon or tomorrow. I told the patient that I heard she has a ride home from her son at 8:00 tonight and she stated that he cannot come. She then asked me if I could get her ride homeand I told her that we do not do that anymore. I did tell the charge nurse about her conversation soshe can handle this. [CG] ED Course User Index [CG] Lizbeth Browne PA-C Clinical Impressions as of Feb 16 1634 Chronic pain of both knees Disposition: Discharge Lizbeth Browne PA-C 02/16/19 1634 EYOR documented in this encounter Plan of Treatment Upcoming Encounters Date Type Specialty Care Team Description 01/18/2022 Telemedicine Family Medicine Sebastian Griffiths MD [address] [place] [address] [phone] (Wo rk) documented as of this encounter Procedures Procedure Name Priority Date/Time Associated Diagnosis Comme nts XR KNEE 3 VIEWS STAT 02/16/2019 4:04 PM Result s for this RIGHT SURVEYOR procedure are i n the results section. XR KNEE 1-2 VIEWS STAT 02/16/2019 4:04 PM Resu lts for this LEFT SURVEYOR procedure are i n the results section. documented in this encounter Results X-ray knee 3 views right (02/16/2019 4:04 PM SURVEYOR) Anatomical Region Laterality Modality Lower Extremities, Knee Right Radiographic Tana ging Specimen (Source) Anatomical Collection Method Collection Time Re ceived Time Location / / Volume Laterality 02/16/2019 4:04 PM SURVEYOR Impressions 02/16/2019 11:50 PM SURVEYOR IMPRESSION: KNEE RIGHT (3 VIEWS) There is postoperative change of bilater al total knee arthroplasties. ??No lucency around the hardware to suggest l oosening. ??No dislocation or acute fracture. Narrative 02/16/2019 11:50 PM SURVEYOR INDICATION: Patient hit her knees on a bathtub havin g pain in bilateral knees. ??No signs of trauma noted. COMPARISON: Bilateral knee radiographs May 24, 2017 Procedure Note Shima Hsu MD - 02/16/2019 INDICATION: Patient hit her knees on a bathtub havin g pain in bilateral knees. No signs of trauma noted. COMPARISON: Bilateral knee radiographs May 24, 2017 IMPRESSION: KNEE RIGHT (3 VIEWS) There is postoperative change of bilater al total knee arthroplasties. No lucency around the hardware to suggest l oosening. No dislocation or acute fracture. Lizbeth Browne PA-C IMG XR PROCEDURES X-ray knee 1-2 views left (02/16/2019 4:04 PM SURVEYOR) Anatomical Region Laterality Modality Lower Extremities, Knee Left Radiographic Tana ging Specimen (Source) Anatomical Collection Method Collection Time Re ceived Time Location / / Volume Laterality 02/16/2019 4:04 PM SURVEYOR Impressions 02/16/2019 11:50 PM SURVEYOR IMPRESSION: KNEE LEFT (1-2 VIEWS) There is postoperative change of prior l eft total knee arthroplasty with no lucency around the hardware to sugges t loosening. ??No dislocation or acute fracture. Narrative 02/16/2019 11:50 PM SURVEYOR INDICATION: Patient hit her knees on a bathtub compl aining of knee pain. ??No signs of trauma noted. COMPARISON: Bilateral knee radiographs June 26, 2018 Procedure Note Shima Hsu MD - 02/16/2019 INDICATION: Patient hit her knees on a bathtub compl aining of knee pain. No signs of trauma noted. COMPARISON: Bilateral knee radiographs June 26, 2018 IMPRESSION: KNEE LEFT (1-2 VIEWS) There is postoperative change of prior l eft total knee arthroplasty with no lucency around the hardware to sugges t loosening. No dislocation or acute fracture. Lizbeth Browne PA-C IMG XR PROCEDURES documented in this encounter Visit Diagnoses Diagnosis Chronic pain of both knees - Primary documented in this encounter Care Teams Support Merchandiser Relationship Specialty Start Date End Date Sebastian Griffiths MD PCP - General 10/24/[address] [place] [phone] documented as of this encounter
--- OUTSIDE RECORDS SUMMARY | 2021-12-09 21:32 | XMS_ITS | Encounter Summary ---
:1950 Author Organization [facility] Address [address] [place] [id number] Care Team Providers Name Role Phone Sebastian Griffiths MD Primary Care Provider Encounter Details Date Type Department Care Team Description 02/16/2019 Travel Social History Tobacco Use Types Packs/Day [...] do you attend protestant or Never 2020 mormon services? Do you [...] Telemedicine Family Medicine Sebastian Griffiths MD [address] [place], [place] [address] (Wo rk) documented as of this encounter Visit Diagnoses Not on filedocumented in this encounter Care Teams Tax Agent Relationship Specialty Start Date End Date Sebastian Griffiths MD PCP - General 10/24/17 [address] [place] [address] documented as of this encounter
--- OUTSIDE RECORDS SUMMARY | 2021-12-09 21:32 | XMS_ITS | Encounter Summary ---
:1950 Author Organization [facility] Address [address] [place] [address] Care Team Providers Name Role Phone Sebastian Griffiths MD Primary Care Provider Reason for Visit Reason Comments Med Refill Encounter Details Date Type Department Care Team Description 02/20/2019 Refill SE Family Med Sebastian Griffiths, Osteoarthritis of both [address] [facility] knees, [place] [address] osteoarthritis type [phone] [place] [address] Social History Tobacco Use Types [...] do you attend sabianism or Never 2020 roman catholic services? Do [...] Telephone Encounter - Tamie Kuhn MA - 02/25/2019 1:08 PM CST Last visit in Provider Department: 2019 Upcoming appointment with Provider: 03/12/2019 Last Rx: 08/24/2018- 100 with 11 refills Requested Prescriptions Pending Prescriptions Disp Refills ??? ACETAMINOPHEN EXTRA STRENGTH 500 MG tablet [Pharmacy Med Name: ACETAMINOPHEN 500MG TABS] 100 tablet 11 Sig: TAKE TWO CAPLETS BY MOUTH THREE TIMES A DAY NEEDED FOR PAIN FUNDER documented in this encounter Plan of Treatment Upcoming Encounters Date Type Specialty Care Team Description 01/18/2022 Telemedicine Family Medicine Sebastian Griffiths MD [address] [place], [place] [address] (Wo rk) documented as of this encounter Visit Diagnoses Diagnosis Osteoarthritis of both knees, unspecifie d osteoarthritis type documented in this encounter Care Teams Registered Respiratory Therapist Relationship Specialty Start Date End Date Sebastian Griffiths MD PCP - General 10/24/17 [address] [place], [place] [phone] documented as of this encounter
--- OUTSIDE RECORDS SUMMARY | 2021-12-09 21:32 | XMS_ITS | Encounter Summary ---
:1950 Author Organization [facility] Address [address] [place] [address] Care Team Providers Name Role Phone Sebastian Griffiths MD Primary Care Provider Reason for Visit Reason Comments Med Refill Encounter Details Date Type Department Care Team Description 01/16/2019 Refill SE Family Med Sebastain Griffiths MD Controlled type [address] [facility] [address] [place] [address] [place] [address] without complication, (Wo rk) without long-term current [...] do you attend christianity or Never 2020 latter-day services? Do you [...] Telephone Encounter - Tamie Shore MA - 01/18/2019 3:33 PM CDT Last visit in Provider Department: 10/10/2018 Upcoming appointment with Provider: 03/12/2019 Last Rx: LOSARTAN POTASSIUM 50MG TABS, dc'd on 10/10/2018 due to therapy being completed Requested Prescriptions Pending Prescriptions Disp Refills ??? losartan (COZAAR) 50 MG tablet [Pharmacy Med Name: LOSARTAN POTASSIUM 50MG TABS] 90 tablet 3 Sig: TAKE 1 TABLET BY MOUTH EVERY MORNING (FOR BLOOD PRESSURE) Labs: Component Latest Ref Rng & Units 09/28/2018 Fasting? Unknown Sodium 135 - 145 mEq/L 139 Potassium 3.5 - 5.1 mEq/L 3.9 Chloride 98 - 107 mEq/L 101 CO2 22 - 29 mmol/L 31 (H) BUN 5 - 25 mg/dL 13 Creatinine 0.4 - 1.2 mg/dL 0.6 Glucose 70 - 100 mg/dL 119 (H) Calcium, Total,S 8.4 - 10.2 mg/dL 10.0 No pending lab found. Vitals: BP Readings from Last 2 Encounters: 12/24/18 148/82 10/10/18 88/52 Please advise, thank you. documented in this encounter Plan of Treatment Upcoming Encounters Date Type Specialty Care Team Description 01/18/2022 Telemedicine Family Medicine Sebastian Griffiths MD [address] [place] [phone] (Wo rk) documented as of this encounter Visit Diagnoses Diagnosis Controlled type 2 diabetes mellitus with out complication, without long-term current use of insulin (HCC) - Primary documented in this encounter Care Teams Electric Needle Specialist Relationship Specialty Start Date End Date Sebastian Griffiths MD PCP - General 10/24/[address] [place] [phone] documented as of this encounter
--- OUTSIDE RECORDS SUMMARY | 2021-12-09 21:33 | XMS_ITS | Encounter Summary ---
:1950 Author Organization [facility] Address [address] [place] [address] Care Team Providers Name Role Phone Sebastian Griffiths MD Primary Care Provider Reason for Visit Reason Comments 3 month follow up Encounter Details Date Type Department Care Team Description 06/26/2018 Office Visit SE Family [facility] Sebastian Griffiths, Acute pain of left knee (Noreen emilia Dx); [address] Acute low back pain without sciatica, un specified back pain laterality; [place] [address] Hepatitis C virus infection without hepatic coma, unspecified chronicity; [phone] Generalized anxiety disorder; [place], [place] Hypertension, essential, benign; [id number] Controlled type 2 diabetes mellitus with out complication, without long-term current use of insulin (HCC); [phone] Primary osteoar thritis of left knee (Work) Social History Tobacco Use Types Packs/Day Years [...] Sign Reading Time Taken Comments Blood Pressure 132/70 06/26/2018 10:08 AM CDT Pulse 80 06/26/2018 10:08 AM CDT Temperature 36.8 ??C (98.2 ??F) 06/26/2018 10:08 AM CDT Respiratory Rate 20 06/26/2018 10:08 AM CDT Oxygen Saturation 95% 06/26/2018 10:08 AM CDT Inhaled Oxygen Concentration - - Weight 104 kg (229 lb 0.9 oz) 06/26/2018 10:08 AM CDT Height 165 cm (5' 4.96) 06/26/2018 10:08 AM CDT Body Mass Index 38.16 06/26/2018 10:08 AM CDT documented in this encounter Patient Instructions Patient InstructionsSebastian Griffiths MD - 06/26/2018 9:40 AM CDT You can have Rehana call me about pain meds. I will send diabetes and liver test results to you along with the low back and left knee x-rays. documented in this encounter Progress Notes Seabstian Griffiths MD - 06/26/2018 9:40 AM CDT Estab Patient Visit Subjective Patient ID: Rena Fan is a 68 y.o. female. Chief Complaint Patient presents with ??? 3 month follow up HPI Patient presents for her 3-month checkup visit for her anxiety and chronic low back pain and chronicknee pain. States that she really needs to be on some type of chronic pain medication to tolerate her discomfort. Patient has had issues with noncompliance and overuse with past experiences with opioids. She states that she slipped on the ice and hit her left knee last month still has a little scab over it. She states that she has a system that fills her medications 1 week at a time so she knows thatshe would misuse her pain medications at this time. She checks her blood sugars and she generally runs in the low to mid 100s. She like to have a liver enzyme checks and she has a history of hepatitis C. On July 16, at [facility], she will be getting surgery for her right eye cataract and glaucoma. The following portions of the patient's chart were reviewed in this encounter and updated as appropriate: Tobacco Allergies Meds Problems Med Hx Soc Hx Review of Systems Denies any constipation or urinary retention. Denies any pain radiating down her legs. Objective Visit Vitals BP 132/70 (BP Location: Left arm, Patient Position: Sitting) Pulse 80 Temp 36.8 ??C (98.2 ??F) (Temporal) Resp 20 Ht 1.65 m (5' 4.96) Wt 104 kg (229 lb 0.9 oz) SpO2 95% BMI 38.16 kg/m?? OB Status Postmenopausal Smoking Status Current Every Day Smoker BSA 2.18 m?? Physical Exam General: Female in no acute distress. Ambulates with the help of a walker. Her focus is fixed on resuming her opioid medications as in the past. Assessment/Plan Diagnoses and all orders for this visit: Acute pain of left knee - X-ray Knee 3 Views Left; Future Acute low back pain without sciatica, unspecified back pain laterality - X-ray Lumbar Spine Complete 4+ Views; Future Hepatitis C virus infection without hepatic coma, unspecified chronicity Generalized anxiety disorder - LORazepam (ATIVAN) 1 MG tablet; TAKE 1 TABLET BY MOUTH THREE TIMES A DAY Hypertension, essential, benign Controlled type 2 diabetes mellitus without complication, without long-term current use of insulin Primary osteoarthritis of left knee I did refill her Lorazepam at this time with refills. Offered her x-rays of the lumbar spine and theleft knee since her pain has gone up in those areas. Her last lumbar spine film was done in 2017 showing severe L1 compression fracture and multilevel DDD. I will send her the results. Recheck in 1-2 months. She was going to have her attendant call me regarding her medication use in the meantime. documented in this encounter Plan of Treatment Upcoming Encounters Date Type Specialty Care Team Description 01/18/2022 Telemedicine Family Medicine Sebastian Griffiths MD [address] [place] [address] (Wo rk) documented as of this encounter Procedures Procedure Name Priority Date/Time Associated Diagnosis Comme nts XR KNEE 4+ VIEWS Routine 06/26/2018 12:15 PM Resu lts for this LEFT CDT procedure are i n the results section. XR LUMBAR SPINE Routine 06/26/2018 12:15 PM Acute low back vishal n Results for this COMPLETE 4+ VIEWS CDT without sciatica, proce dure are in unspecified back the results pain laterality section. documented in this encounter Results X-ray knee 4+ views left (06/26/2018 12:15 PM CDT) Anatomical Region Laterality Modality Lower Extremities, Knee Left Radiographic Tana ging Specimen (Source) Anatomical Collection Method Collection Time Re ceived Time Location / / Volume Laterality 06/26/2018 12:15 PM CDT Impressions 06/26/2018 12:48 PM CDT IMPRESSION: KNEE COMPLETE LEFT (MIN 4 VIEWS) There is evidence of prior bilateral tot al knee arthroplasties with no lucency around the hardware to suggest l oosening. No fracture or dislocation. Narrative 06/26/2018 12:48 PM CDT INDICATION: Knee pain, initial exam; Fell on ice 2 m onths ago on recent knee arthroplasty COMPARISON: Bilateral knee radiographs March 09, 2018 Procedure Note Shima Hsu MD - 06/26/2018 INDICATION: Knee pain, initial exam; Fell on ice 2 m onths ago on recent knee arthroplasty COMPARISON: Bilateral knee radiographs March 09, 2018 IMPRESSION: KNEE COMPLETE LEFT (MIN 4 VIEWS) There is evidence of prior bilateral tot al knee arthroplasties with no lucency around the hardware to suggest l oosening. No fracture or dislocation. Sebastian Griffiths MD IMG XR PROCEDURES X-ray Lumbar Spine Complete 4+ Views (06/26/2018 12:15 PM CDT) Anatomical Region Laterality Modality Spine, L-spine Radiographic Imaging Specimen (Source) Anatomical Collection Method Collection Time Re ceived Time Location / / Volume Laterality 06/26/2018 12:15 PM CDT Impressions 06/26/2018 12:26 PM CDT IMPRESSION: LUMBAR SPINE MIN 4 VIEWS No acute fracture. ??No malalignment. ?? A severe compression deformity at L1 with vertebroplasty cement is similar to the prior exam. ??There is stable mild diffuse vertebral body height loss at L5. ??Moderate to severe disc space narrowing with endplate spurring a t L4-5 has mildly increased. ?? There is stable mild to moderate disc sp antony narrowing with endplate spurring at L1-2, L2-3, L3-4 and L5-S1. ??Scattered aortic calcifications are again seen. ??Bone density is again diffusely decreased. ??Metallic clips are again seen in the right upper abdomen. Narrative 06/26/2018 12:26 PM CDT INDICATION: Back pain, > 6wks conservative tx, persi stent sx COMPARISON: Lumbar spine radiographs December 05 Procedure Note Shima Hsu MD - 06/26/2018 INDICATION: Back pain, > 6wks conservative tx, persi stent sx COMPARISON: Lumbar spine radiographs December 05 IMPRESSION: LUMBAR SPINE MIN 4 VIEWS No acute fracture. No malalignment. A se lloyd compression deformity at L1 with vertebroplasty cement is similar to the prior exam. There is stable mild diffuse vertebral body height loss at L5. Moderate to severe disc space narrowing with endplate spurring a t L4-5 has mildly increased. There is stable mild to moderate disc sp antony narrowing with endplate spurring at L1-2, L2-3, L3-4 and L5-S1. Scattered aortic calcifications are again seen. Bone density is again di ffusely decreased. Metallic clips are again seen in the right upper abdomen. Sebastian Griffiths MD IMG XR PROCEDURES documented in this encounter Visit Diagnoses Diagnosis Acute pain of left knee - Primary Acute low back pain without sciatica, un specified back pain laterality Hepatitis C virus infection without hepa tic coma, unspecified chronicity Generalized anxiety disorder Hypertension, essential, benign Essential hypertension, benign Controlled type 2 diabetes mellitus with out complication, without long-term current use of insulin (HCC) Primary osteoarthritis of left knee documented in this encounter Care Teams Custodial Supervisor Relationship Specialty Start Date End Date Sebastian Griffiths MD PCP - General 10/24/[address] [place] [phone] documented as of this encounter
--- OUTSIDE RECORDS SUMMARY | 2021-12-09 21:33 | XMS_ITS | Encounter Summary ---
:1950 Author Organization [facility] Address [address] [place] [address] Care Team Providers Name Role Phone Sebastian Griffiths MD Primary Care Provider Encounter Details Date Type Department Care Team Description 06/26/2018 Lab SE Lab Hepatitis C virus infection without hepatic coma, unspecified chronicity; [address] Controlled type 2 diabetes m ellitus without complication, without long-term current use of insulin (HCC) [place], [place] [id number] Social History Tobacco Use Types Packs/Day Years [...] do you attend congregation or Never 2020 orthodoxy services? Do you [...] Telemedicine Family Medicine Sebastian Griffiths MD [address] [place] [phone] (Wo rk) documented as of this encounter Procedures Procedure Name Priority Date/Time Associated Diagnosis Comme nts MICROALBUMIN/CREATIN Routine 06/26/2018 12:40 Controlled type 2 Results for this INE RATIO PM CDT diabetes mellitus procedure are in without the results complication, section. without long-term current use of insulin ([facility]) GLOMERULAR Routine 06/26/2018 12:28 Controlled type 2 Result s for this FILTRATION RATE PM CDT diabetes mellitus procedu re are in without the results complication, section. without long-term current use of insulin ([facility]) ALT Routine 06/26/2018 12:28 Hepatitis C virus Result s for this PM CDT infection without procedure are in hepatic coma, the results unspecified section. chronicity HEMOGLOBIN A1C Routine 06/26/2018 12:28 Controlled type 2 Resu lts for this PM CDT diabetes mellitus procedure are in without the results complication, section. without long-term current use of insulin ([facility]) LIPID PANEL Routine 06/26/2018 12:28 Controlled type 2 Result s for this PM CDT diabetes mellitus procedure are in without the results complication, section. without long-term current use of insulin ([facility]) BASIC METABOLIC Routine 06/26/2018 12:28 Controlled type 2 Res ults for this PANEL PM CDT diabetes mellitus procedure are in without the results complication, section. without long-term current use of insulin ([facility]) documented in this encounter Results Microalbumin/Creatinine Ratio (06/26/2018 12:40 PM CDT) athologist Signature Microalbumin,m <7.0 0.0 - 16.6 06/26/2018 [facility] g/day mg/L 2:59 PM T [facility] Comment: . Creatinine, Urine 60 mg/dL 06/26/2018 2:59 PM T [facility] Comment: No established reference range. Microalb/Creat Ratio see below 0 - 24 mg/g 06/26/2018 2:59 P M [facility] Comment: Microalbumin value outside of detectable range. Unable to report Microalbumin/Creatinine ratio. Co nsider 24-hour collection if clinically indicated. Specimen Anatomical Collection Method Collection Time Receive d Time (Source) Location / / Volume Laterality Urine 06/26/2018 12:40 06/26/2018 2:02 PM CDT PM CDT Sebastian Griffiths MD LAB URINE ORDERABLES Performing Organization Address City/State/ZIP Code Phon e Number [facility] [address] [place] [phone] Glomerular filtration rate (GFR) (06/26/2018 12:28 PM CDT) athologist Signature GFR >60 06/26/2018 [facility] 3:24 PM CDT [facility] >60 06/26/2018 [facility] Guine[place] GFR 3:24 PM CDT [facility] Comment: GFR calculated from serum creatinine v alue Chronic Kidney Disease less than 60 mL/m in/1.73 m2 Kidney Failure less than 15 mL/min/1.73 m2 Note: effective 08/02/06 IDMS-Traceable MDRD Study Equation used. Specimen Anatomical Collection Method Collection Time Receive d Time (Source) Location / / Volume Laterality 06/26/2018 12:28 06/26/2018 PM CDT 12:28 PM CDT Sebastian Griffiths MD LAB BLOOD ORDERABLES Performing Organization Address City/State/ZIP Code Phon e Number [facility] [address] [place] [address] (ABNORMAL) Lipid panel (06/26/2018 12:28 PM CDT) athologist Signature Cholesterol 159 0 - 199 06/26/2018 [facility] mg/dL 3:24 PM CDT [facility] Comment: Recommended by National Cholesterol Education Program (ATP III) -------- Cholesterol Ranges -------- <200 ? Desirable 200-239 ? Borderline high >=240 ? High Triglycerides 238 (A) 0 - 149 mg/dL 06/26/2018 3:24 PM CDT [facility] Comment: -------- TRIG Ranges -------- <150 ?Normal 150-199 ? Borderline high 200-499 ? High >=500 ? Very high HDL 53 40 - 60 mg/dL 06/26/2018 3:24 PM CDT [facility] Comment: -------- HDL Ranges -------- <40 ?Low 40-59 ?Normal >=60 ? Optimal LDL Calculated 58 0 - 99 mg/dL 06/26/2018 3:24 PM CDT [facility] Comment: -------- LDL Ranges -------- <100 ? Optimal 100-129 ?Near optimal/above op timal 130-159 ?Borderline high 160-189 ?High >=190 ?Very high Specimen Anatomical Collection Method Collection Time Receive d Time (Source) Location / / Volume Laterality Blood 06/26/2018 12:28 06/26/2018 2:02 PM CDT PM CDT Sebastian Griffiths MD LAB BLOOD ORDERABLES Performing Organization Address [facility] Phon e Number [facility] [address] [place] [address] (ABNORMAL) Hemoglobin A1c (06/26/2018 12:28 PM CDT) Analysis Performed At [facility] Time Signature Hemoglobin A1C 5.9 (H) 4.0 - 5.6 06/26/2018 [place] % A1C 3:27 PM CDT [facility] Comment: Reference Range 4.0-5.6% is for [...] (Source) Location / / Volume Laterality Blood 06/26/2018 12:28 06/26/2018 2:02 PM CDT PM CDT Sebastian Griffiths MD LAB BLOOD ORDERABLES Performing Organization Address [facility] Phon e Number [facility] [address] [place] [address] (ABNORMAL) Basic metabolic panel (06/26/2018 12:28 PM CDT) athologist Signature Sodium 140 135 - 145 06/26/2018 [facility] mEq/L 3:24 PM [facility] [place] Potassium 3.8 3.5 - 5.1 06/26/2018 [facility] mEq/L 3:24 PM [facility] Chloride 102 98 - 107 06/26/2018 [facility] mEq/L 3:24 PM [facility] CO2 32 (H) 22 - 29 06/26/2018 [facility] mmol/L 3:24 PM [facility] [place] Creatinine 0.7 0.4 - 1.2 06/26/2018 [facility] mg/dL 3:24 PM [facility] BUN 16 5 - 25 06/26/2018 [facility] mg/dL 3:24 PM [facility] Glucose 87 70 - 100 06/26/2018 [facility] mg/dL 3:24 PM [facility] Calcium, 9.5 8.4 - 10.2 06/26/2018 [facility] Total,S mg/dL 3:24 PM [facility] Fasting? Yes 06/26/2018 [facility] 12:28 PM [facility] [place] Specimen Anatomical Collection Method Collection Time Receive d Time (Source) Location / / Volume Laterality Blood 06/26/2018 12:28 06/26/2018 2:02 PM CDT PM CDT Sebastian Griffiths MD LAB BLOOD ORDERABLES Performing Organization Address City/[facility] Code Phon e Number [facility] [address] [place] [address] ALT (06/26/2018 12:28 PM CDT) athologist Signature ALT (SGPT) 30 0 - 34 U/L 06/26/2018 [facility] 3:24 PM [facility] Specimen Anatomical Collection Method Collection Time Receive d Time (Source) Location / / Volume Laterality Blood (Blood, 06/26/2018 12:28 06/26/2018 2:02 Venous) PM CDT PM CDT Sebastian Griffiths MD LAB BLOOD ORDERABLES Performing Organization Address [facility] Code Phon e Number [facility] [address] [place] [address] documented in this encounter Visit Diagnoses Diagnosis Hepatitis C virus infection without hepa tic coma, unspecified chronicity Controlled type 2 diabetes mellitus with out complication, without long-term current use of insulin (HCC) documented in this encounter Care Teams Marble Machine Operator Relationship Specialty Start Date End Date Sebastian Griffiths MD PCP - General 10/24/[address] [place] [address] documented as of this encounter
--- OUTSIDE RECORDS SUMMARY | 2021-12-09 21:33 | XMS_ITS | Encounter Summary ---
:1950 Author Organization [facility] Address [address] [place] [address] Care Team Providers Name Role Phone Sebastian Griffiths MD Primary Care Provider Reason for Visit Reason Comments Med Refill Encounter Details Date Type Department Care Team Description 05/17/2018 Refill SE Family Med Sebastian Griffiths MD Controlled type 2 [address] [facility] [address] [place] [address] [place] [address] without complication, (Wo rk) without long-term current u se of insulin (HCC) (Primary Dx) Social History Tobacco Use Types Packs/Day Years Used Date Current Every Day Smoker Cigarettes Smokeless Tobacco: Never Used Alcohol Use Standard Drinks/Week Comments No 0 (1 standard drink = 0.6 oz [...] do you attend samaritan or Never 2020 synagogue services? Do you [...] this encounter Miscellaneous Notes Telephone Encounter - Mary Rosenbaum MA - 05/18/2018 1:50 PM SUPERVISOR BEEHIVE KILN Januvia 100mg last rx 10/18/17 #30, 6 refills Last date med(s) reviewed: 03/27/18 Appt scheduled 06/26/18 05/17/18 BP 124/72 Component Latest Ref Rng & Units 09/07/2017 Fasting? Unknown Sodium 135 - 145 mEq/L 139 Potassium 3.5 - 5.1 mEq/L 4.6 Chloride 98 - 107 mEq/L 101 CO2 22 - 29 mmol/L 31 (H) BUN 5 - 25 mg/dL 15 Creatinine 0.4 - 1.2 mg/dL 0.7 Glucose 70 - 100 mg/dL 111 (H) Alkaline Phosphatase 38 - 128 U/L 76 AST 8 - 43 U/L 40 Total Protein 6.3 - 8.2 g/dL 6.4 Albumin, Serum 3.5 - 5.0 g/dL 3.4 (L) Calcium, Total,S 8.4 - 10.2 mg/dL 9.8 ALT (SGPT) 25 - 45 U/L 49 (H) Total Bilirubin 0.1 - 1.0 mg/dL 0.5 Component Latest Ref Rng & Units 06/28/2017 Microalbumin,mg/day 0.0 - 16.6 mg/L 23.1 (H) Creatinine, Urine mg/dL 176 Microalb/Creat Ratio 0 - 24 mg/g 13 Component Latest Ref Rng & Units 06/28/2017 Hemoglobin A1C 4.0 - 5.6 % A1C 6.1 (H) Component Latest Ref Rng & Units 06/28/2017 Cholesterol 0 - 199 mg/dL 163 Triglycerides 0 - 149 mg/dL 153 (A) HDL 40 - 60 mg/dL 58 LDL Calculated 0 - 99 mg/dL 74 Pending C8, A1c, Lipid, RMAG in chart RVISOR BEEHIVE KILN documented in this encounter Plan of Treatment Upcoming Encounters Date Type Specialty Care Team Description 01/18/2022 Telemedicine Family Medicine Sebastian Griffiths MD [address] [place] [phone] (Wo rk) documented as of this encounter Visit Diagnoses Diagnosis Controlled type 2 diabetes mellitus with out complication, without long-term current use of insulin (HCC) - Primary documented in this encounter Care Teams Farm Crew Member Relationship Specialty Start Date End Date Sebastian Griffiths MD PCP - General 10/24/17 [address] [place] [address] documented as of this encounter
--- OUTSIDE RECORDS SUMMARY | 2021-12-09 21:33 | XMS_ITS | Encounter Summary ---
:1950 Author Organization [facility] Address [address] [place] [address] Care Team Providers Name Role Phone Sebastian Griffiths MD Primary Care Provider Reason for Visit Reason Onset Date Comments Prior AUth Meds 08/24/2018 methocarbamol (ROBAX IN) 500 MG tablet Encounter Details Date Type Department Care Team Description 08/24/2018 Telephone SE Family Med Sebastian Griffiths, Prior AUth Meds [address] [facility] ([place] [address] 902 [facility] (ROBAXIN) 500 MG tablet [phone] ) [place] [address] Social History Tobacco Use Types [...] do you attend buddhism or Never 2020 caodaism services? Do you [...] Telephone Encounter - Cat Adair MA - 08/24/2018 10:18 AM CDT PA approved until 03/19/2019. Pharmacy is notified. Telephone Encounter - Magdalena Meadows LPN - 08/24/2018 8:54 AM CDT methocarbamol (ROBAXIN) 500 MG tablet PA completed per CMM, sent to insurance plan. Scott: [id number] [facility] Medicare BIN: [id number] PCN: [id number] ID: [id number] documented in this encounter Plan of Treatment Upcoming Encounters Date Type Specialty Care Team Description 01/18/2022 Telemedicine Family Medicine Sebastian Griffiths MD [address] [place], [place] [address] (Wo rk) documented as of this encounter Visit Diagnoses Not on filedocumented in this encounter Care Teams Safety And Security Manager Relationship Specialty Start Date End Date Sebastian Griffiths MD PCP - General 10/24/[address] [place] [address] documented as of this encounter
--- OUTSIDE RECORDS SUMMARY | 2021-12-09 21:33 | XMS_ITS | Encounter Summary ---
:1950 Author Organization [facility] Address [address] [place] [address] Care Team Providers Name Role Phone Sebastian Griffiths MD Primary Care Provider Reason for Visit Reason Onset Date Comments Medication prior auth- Zolpidem Tartrate 5MG tablets 019 Encounter Details Date Type Department Care Team Description 07/16/2018 Telephone [facility] Sebastian Griffiths, Medication prior auth- [address] [facility] Zolpidem Tartrate 5MG [place] [address] tablets [phone] [place], [place] [address] Social History Tobacco Use Types Packs/Day Years [...] Telephone Encounter - Mili Rivera MA - 07/17/2018 4:20 PM CDT Patient called back and was informed. Telephone Encounter - Cat Adair MA - 07/17/2018 9:48 AM CDT PA approved until 03/19/2019. Pharmacy is notified. Telephone Encounter - Sosa Garcia LPN - 07/17/2018 8:05 AM CDT Lmtcb Telephone Encounter - Sebastian Griffiths MD - 07/16/2018 7:12 PM CDT Let patient know that her insurance will not allow more than 90 days of zolpidem per year. She will either have to pay for it herself, or use it occasionally. Telephone Encounter - Tamie Kuhn MA - 07/16/2018 3:28 PM CDT Insurance is requesting a supporting statement as to why patient needs more than 90 tablets of Zolpidem Tartrate 5 mg in 365 days. Patient needing more than 90 in 365 days goes over the quanity exception. Please advise, thank you! Appeals information: Appeals and Grievances Department [facility] [address] [facility], [address] [place] [address] Fax: Telephone Encounter - Tamie Kuhn MA - 07/16/2018 1:32 PM CDT Zolpidem Tartrate 5MG tablets BIN: PCN: GROUP: PLAN: [facility] PHONE: ID: [id number] ?? PA completed per M, sent to plan. Scott: [id number] documented in this encounter Plan of Treatment Upcoming Encounters Date Type Specialty Care Team Description 01/18/2022 Telemedicine Family Medicine Sebastian Griffiths MD [address] [place], [place] [address] (Wo rk) documented as of this encounter Visit Diagnoses Not on filedocumented in this encounter Care Teams Appliance Assembler Relationship Specialty Start Date End Date Sebastian Griffiths MD PCP - General 10/24/[address] [place] [phone] documented as of this encounter
--- OUTSIDE RECORDS SUMMARY | 2021-12-09 21:33 | XMS_ITS | Encounter Summary ---
:1950 Author Organization [facility] Address [address] [place] [address] Care Team Providers Name Role Phone Sebastian Griffiths MD Primary Care Provider Reason for Visit Reason Onset Date Comments Medication PA 05/10/2018 hydrOXYzine Pamoate 25MG capsules Encounter Details Date Type Department Care Team Description 05/10/2018 Telephone [facility] Sebastian Griffiths, Medication PA [address] [facility] ([place] [address] 25MG capsules) [phone] [place], [place] [address] Social History Tobacco Use Types Packs/Day Years [...] do you attend restorationist or Never 2020 adventist services? Do you [...] Telephone Encounter - Cat Adair MA - 05/10/2018 1:30 PM CST PA approved from 05/10/2018 - 03/19/2019. Pharmacy is notified. PHONE SUPERVISOR Telephone Encounter - Magdalena Meadows LPN - 05/10/2018 12:10 PM CST hydrOXYzine Pamoate 25MG capsules [facility] B[place]: [id number] PCN: [id number] ID: [id number] phone fax PA completed per CMM, sent to plan. Scott: [id number] PHONE SUPERVISOR documented in this encounter Plan of Treatment Upcoming Encounters Date Type Specialty Care Team Description 01/18/2022 Telemedicine Family Medicine Sebastian Griffiths MD [address] [place], [place] [address] (Wo rk) documented as of this encounter Visit Diagnoses Not on filedocumented in this encounter Care Teams Liability Claims Representative Relationship Specialty Start Date End Date Sebastian Griffiths MD PCP - General 10/24/[address] [place] [address] documented as of this encounter
--- OUTSIDE RECORDS SUMMARY | 2021-12-09 21:33 | XMS_ITS | Encounter Summary ---
:1950 Author Organization [facility] Address [address] [place] [address] Care Team Providers Name Role Phone Sebastian Griffiths MD Primary Care Provider Reason for Visit Reason Comments Med Refill Encounter Details Date Type Department Care Team Description 06/15/2018 Refill SE Family Med Sebastian Griffiths MD Acute pain of right [address] [place] [address] [place] [address] [phone] (Wo rk) Social History Tobacco Use Types [...] Telephone Encounter - Candice Werner LPN - 06/18/2018 7:44 AM CDT Last Rx methocarbamol (ROBAXIN) 500 MG tablet [[id number]] ?? Order Details Dose: 500 mg Route: Oral Frequency: 2 times daily PRN for muscle spasms Dispense Quantity: 60 tablet Refills: 1 Fills remaining: -- ?? Sig: Take 1 tablet (500 mg total) by mouth 2 (two) times a day if needed for muscle spasms ?? Written Date: 03/27/18 Expiration Date: 03/27/19 Start Date: 03/27/18 End Date: -- ?? Ordering Provider: Sebastian Griffiths MD Med/dx last reviewed 03/27/2018 Upcoming appointment 06/26/2018 documented in this encounter Plan of Treatment Upcoming Encounters Date Type Specialty Care Team Description 01/18/2022 Telemedicine Family Medicine Sebastian Griffiths MD [address] [place], [place] [address] (Wo rk) documented as of this encounter Visit Diagnoses Diagnosis Acute pain of right shoulder documented in this encounter Care Teams Carton Forming Machine Tender Relationship Specialty Start Date End Date Sebastian Griffiths MD PCP - General 10/24/[address] [place] [phone] documented as of this encounter
--- OUTSIDE RECORDS SUMMARY | 2021-12-09 21:33 | XMS_ITS | Encounter Summary ---
:1950 Author Organization [facility] Address [address] [place] [address] Care Team Providers Name Role Phone Sebastian Griffiths MD Primary Care Provider Reason for Visit Reason Comments pneumonia followup Encounter Details Date Type Department Care Team Description 05/17/2018 Office Visit SE Family Med Marcial Inman Uncomplicated asthma, [address] [place] [address] severity, unspecified [phone] SE whether persistent [place], [place] (Primary Dx) [address] Social History Tobacco Use Types Packs/Day [...] do you attend restoration or Never 2020 judaism services? Do you [...] Sign Reading Time Taken Comments Blood Pressure 124/72 05/17/2018 11:16 AM POTATO PICKER Pulse 88 05/17/2018 11:16 AM POTATO PICKER Temperature 36.1 ??C (97 ??F) 05/17/2018 11:16 AM POTATO PICKER Respiratory Rate 22 05/17/2018 11:16 AM POTATO PICKER Oxygen Saturation 95% 05/17/2018 11:16 AM POTATO PICKER Inhaled Oxygen Concentration - - Weight 102 kg (224 lb 10.4 oz) 05/17/2018 11:16 AM POTATO PICKER Height 165 cm (5' 4.96) 05/17/2018 11:16 AM POTATO PICKER Body Mass Index 37.43 05/17/2018 11:16 AM POTATO PICKER documented in this encounter Progress Notes Sosa Garcia LPN - 05/17/2018 10:40 AM CST Nurse Procedure Note Nebulizer treatment with Albuterol 0.083% administered as ordered TO PICKER documented in this encounter Plan of Treatment Upcoming Encounters Date Type Specialty Care Team Description 01/18/2022 Telemedicine Family Medicine Sebastian Griffiths MD [address] [place], [place] [address] (Wo rk) documented as of this encounter Visit Diagnoses Diagnosis Uncomplicated asthma, unspecified asthma severity, unspecified whether persistent - Primary documented in this encounter Administered Medications Inactive Administered Medications - up to 3 most recent administrations Medication Order MAR Action Action Date Dose Rate Site albuterol (2.5 MG/3ML) 0.083% Given 05/17/2018 12:47 PM POTATO PICKER 2.5 mg nebulizer solution 2.5 mg 2.5 mg, Nebulization, Every 6 hours PRN, wheezing, Starting on Deepika 05/17/18 at 1130, For 10 days Given 05/17/2018 11:45 AM POTATO PICKER 2.5 mg documented in this encounter Care Teams Child Welfare Consultant Relationship Specialty Start Date End Date Sebastian Griffiths MD PCP - General 10/24/17 [address] [place] [address] documented as of this encounter
--- OUTSIDE RECORDS SUMMARY | 2021-12-09 21:33 | XMS_ITS | Encounter Summary ---
:[address] [facility] Address [address] [place] [address] Care Team Providers Name Role Phone Sebastian Griffiths MD Primary Care Provider Reason for Visit Reason Comments Med Refill Encounter Details Date Type Department Care Team Description 07/23/2018 Refill SE Family Med Sebastian Griffiths MD Chronic constipation [address] [facility] [address] [facility] (Primary Dx) [place] [address] [place] [address] [phone] (Wo rk) Social History Tobacco Use Types [...] do you attend denominational or Never 2020 advent services? Do you [...] Telephone Encounter - Mandi Kwon MA - 07/25/2018 3:14 PM CDT STOOL SOFTENER/LAXATIVE 50-8.6 MG per tablet #60, +12 refills Last office visit 06/26/2018 Future appt scheduled 08/14/2018 documented in this encounter Plan of Treatment Upcoming Encounters Date Type Specialty Care Team Description 01/18/2022 Telemedicine Family Medicine Sebastian Griffiths MD [address] [place], [place] [address] (Wo rk) documented as of this encounter Visit Diagnoses Diagnosis Chronic constipation - Primary Unspecified constipation documented in this encounter Care Teams Tailer Out Relationship Specialty Start Date End Date Sebastian Griffiths MD PCP - General 10/24/17 [address] [place], [place] [address] documented as of this encounter
--- OUTSIDE RECORDS SUMMARY | 2021-12-09 21:33 | XMS_ITS | Encounter Summary ---
:1950 Author Organization [facility] Address [address] [place] [address] Care Team Providers Name Role Phone Sebastian Griffiths MD Primary Care Provider Reason for Visit Reason Comments Med Refill Encounter Details Date Type Department Care Team Description 08/30/2018 Refill SE Family Med Sebastian Griffiths MD Controlled type 2 [address] [facility] [address] [place] [address] [place] [address] without complication, (Wo rk) without long-term current [...] do you attend taoist or Never 2020 mormon services? Do you [...] Telephone Encounter - Tamie Kuhn MA - 08/31/2018 3:17 PM CDT gabapentin (NEURONTIN) 600 MG tablet- Last refill: 07/24/2018 JANUVIA 100 MG tablet- Last refill: 08/04/2018 Patient's last appointment for medication requested was 08/14/2018- Pain, 06/26/2018- DM Follow up scheduled 11/13/2018 Albumin, Serum Date Value Ref Range Status 09/07/2017 3.4 (L) 3.5 - 5.0 g/dL Final Creatinine Date Value Ref Range Status 06/26/2018 0.7 0.4 - 1.2 mg/dL Final Cholesterol Date Value Ref Range Status 06/26/2018 159 0 - 199 mg/dL Final Comment: Recommended by National Cholesterol Education Program (ATP III) -------- Cholesterol Ranges -------- <200 Desirable 200-239 Borderline high >=240 High LDL Calculated Date Value Ref Range Status 06/26/2018 58 0 - 99 mg/dL Final Comment: -------- LDL Ranges -------- <100 Optimal 100-129 Near optimal/above optimal 130-159 Borderline high 160-189 High >=190 Very high HDL Date Value Ref Range Status 06/26/2018 53 40 - 60 mg/dL Final Comment: -------- HDL Ranges -------- <40 Low 40-59 Normal >=60 Optimal Triglycerides Date Value Ref Range Status 06/26/2018 238 (A) 0 - 149 mg/dL Final Comment: -------- TRIG Ranges -------- <150 Normal 150-199 Borderline high 200-499 High >=500 Very high Hemoglobin A1C Date Value Ref Range Status 06/26/2018 5.9 (H) 4.0 - 5.6 % A1C Final Comment: Reference Range 4.0-5.6% is for non- adults >=18 yrs <5.6% Non-Diabetic 5.7-6.4% Increased risk of Diabetes >=6.5% Indicative of Diabetes <7.0% ADA goal for glycemic control Methodology may not detect all hemoglobin variants which can affect A1c results. Method certified by National Glycohemoglobin Standardization Program. documented in this encounter Plan of Treatment Upcoming Encounters Date Type Specialty Care Team Description 01/18/2022 Telemedicine Family Medicine Sebastian Griffiths MD [address] [place] [address] (Wo rk) documented as of this encounter Visit Diagnoses Diagnosis Controlled type 2 diabetes mellitus with out complication, without long-term current use of insulin (HCC) documented in this encounter Care Teams Can Operator Relationship Specialty Start Date End Date Sebastian Griffiths MD PCP - General 10/24/17 [address] [place] [address] documented as of this encounter
--- OUTSIDE RECORDS SUMMARY | 2021-12-09 21:33 | XMS_ITS | Encounter Summary ---
:1950 Author Organization [facility] Address [address] [place] [address] Care Team Providers Name Role Phone Sebastian Griffiths MD Primary Care Provider Reason for Visit Reason Onset Date Comments update 08/30/2018 Encounter Details Date Type Department Care Team Description 08/30/2018 Telephone SE [facility] Sebastian Griffiths MD update 210 9 [facility] [address] [place] [address] [place] [address] [phone] (Wo rk) Social History Tobacco Use Types [...] do you attend confucianist or Never 2020 methodist services? Do you [...] this encounter Miscellaneous Notes Telephone Encounter - Maribell Richards RN - 09/06/2018 2:51 PM CDT This has been faxed. Telephone Encounter - Kaelyn Lawson RN - 09/05/2018 11:06 AM CDT In speaking to home care nurse, she wants to have a current medication list faxed to her at [address] [place] [address] that this medication can be given. Telephone Encounter - Maribell Richards RN - 09/05/2018 10:32 AM CDT lmtc Telephone Encounter - Maribell Richards RN - 08/30/2018 1:52 PM CDT lmtc Telephone Encounter - Sebastian Griffiths MD - 08/30/2018 1:32 PM CDT She uses the hydroxyzine as needed for itching. The Epclusa is prescribed by [facility] for hepatitis C. I do not think she is currently on that. Telephone Encounter - Martha Salazar RN - 08/30/2018 9:25 AM CDT Patient's home care nurse calling in with an update on the patient and to request clarification on medications. She says that her apartment is infested with gnats. She says that she attempted to call her [facility] social contact worker but nobody was available and she didn't leave a message to let them know she was communicating with them. She also said that her assigned county social contact worker Lucy is on vacation for two weeks. The office contact number is . She also says that the patient has been threatened with eviction due to mess and odor in apartment. The nurse said she doesn't have time to try and contact the [facility] social contact worker again. She would also like to clarify the patient's hydroxyzine and Epclusa. She doesn't have them as active medications on her list. An updated list can be faxed to . documented in this encounter Plan of Treatment Upcoming Encounters Date Type Specialty Care Team Description 01/18/2022 Telemedicine Family Medicine Sebastian Griffiths MD [address] [place], [place] [address] (Wo rk) documented as of this encounter Visit Diagnoses Not on filedocumented in this encounter Care Teams Commissioning Editor Relationship Specialty Start Date End Date Sebastian Griffiths MD PCP - General 10/24/17 [address] [place] [address] documented as of this encounter
--- OUTSIDE RECORDS SUMMARY | 2021-12-09 21:33 | XMS_ITS | Encounter Summary ---
:1950 Author Organization [facility] Address [address] [place] [address] Care Team Providers Name Role Phone Sebastian Griffiths MD Primary Care Provider Reason for Visit Reason Comments Med Refill Encounter Details Date Type Department Care Team Description 06/04/2018 Refill SE Family Med Sebastian Griffiths MD Generalized anxiety [address] [facility] [address] [place] [address] [place] [address] [phone] (Wo rk) Social History Tobacco Use Types [...] do you attend rastafari or Never 2020 anabaptist services? Do you belong to any clubs [...] Telephone Encounter - Cat Adair MA - 06/05/2018 3:22 PM CDT Lorazepam 1mg tablet Last RX: 04/06/2018 #90 Refills: 1 Last apt: 03/27/2017 GAD7 was refused on 03/27/2018. Pt. Has upcoming appt. 06/26/2018. documented in this encounter Plan of Treatment Upcoming Encounters Date Type Specialty Care Team Description 01/18/2022 Telemedicine Family Medicine Sebastian Griffiths MD [address] [place], [place] [address] (Wo rk) documented as of this encounter Visit Diagnoses Diagnosis Generalized anxiety disorder documented in this encounter Care Teams Patient Financial Counselor Relationship Specialty Start Date End Date Sebastian Griffiths MD PCP - General 10/24/[address] [place] [phone] documented as of this encounter
--- OUTSIDE RECORDS SUMMARY | 2021-12-09 21:33 | XMS_ITS | Encounter Summary ---
:1950 Author Organization [facility] Address [address] [place] [address] Care Team Providers Name Role Phone Sebastian Griffiths MD Primary Care Provider Reason for Visit Reason Comments Med Refill Encounter Details Date Type Department Care Team Description 08/02/2018 Refill SE Family Med Sebastian Griffiths MD Chronic obstructive [address] [facility] [address] [facility] pulmonary disease, [place] [address] [place] [address] unspecified COPD type [phone] (Wo rk) ([facility]) (Primary Dx) Social History Tobacco Use Types [...] many times do you More than three ievtte es a week 05/18/2020 talk on the phone with family, friends, or neighbors? How often do you get together with friends Twice a week 05/18/2020 or relatives? How often do you attend zoroastrianism or Never 2020 buddhism services? Do you [...] Telephone Encounter - Lindsay Ny LPN - 08/02/2018 2:58 PM CDT Ventolin HFA 108 (90 base) mcg/act inhaler Last Rx 03/07/2017 # 1, 5 refills Last date med(s) reviewed: 09/02/2017 surgical history and physical Appt. Scheduled 08/14/2018 documented in this encounter Plan of Treatment Upcoming Encounters Date Type Specialty Care Team Description 01/18/2022 Telemedicine Family Medicine Sebastian Griffiths MD [address] [place], [place] [address] (Wo rk) documented as of this encounter Visit Diagnoses Diagnosis Chronic obstructive pulmonary disease, u nspecified COPD type (HCC) - Primary documented in this encounter Care Teams Medical Dosimetrist Relationship Specialty Start Date End Date Sebastian Griffiths MD PCP - General 10/24/[address] [place] [phone] documented as of this encounter
--- OUTSIDE RECORDS SUMMARY | 2021-12-09 21:33 | XMS_ITS | Encounter Summary ---
:1950 Author Organization [facility] Address [address] [place] [address] Care Team Providers Name Role Phone Sebastian Griffiths MD Primary Care Provider Reason for Visit Reason Comments DM Foot Care Encounter Details Date Type Department Care Team Description 06/26/2018 Office Visit SE Podiatry Chata Rivera, Tinea unguium (Primary Dx); [address] DPM Corns and callosities; [place] [address] Toe pain, bilateral; [phone] Diabetic periph eral neuropathy (HCC); Hallux valgus w ith bunions of left foot; Hallux valgus w ith bunions, right; Acquired bilate ral hammer toes Social History Tobacco Use Types Packs/Day Years [...] do you attend rastafarian or Never 2020 mormon services? Do you [...] as of this encounter Patient Instructions Patient InstructionsChata Rivera DPM - 06/26/2018 11:15 AM CDT Toenails and callus debrided today Follow up in 3 months documented in this encounter Progress Notes Chata Rivera DPM - 06/26/2018 11:15 AM CDT Estab Patient Visit Subjective Patient ID: Rena Fan is a 68 y.o. female diabetic presenting today for painful toenails and callus. Patient presenting today for diabetic foot exam. Patient requesting their toenails to be cut. Patient states toenails are painful with shoes and with walking. Patient fears cutting their toenails due to diabetes and possible infection. She also states she has painful calluses to both feet. She is reque sting her calluses to be debrided today. She presents today using a walker. Date last seen by Sebastian Griffiths MD: 06/26/18 Last hemoglobin A1c: new lab work performed today AM blood sugar: 143 The following portions of the patient's chart were reviewed in this encounter and updated as appropriate: Tobacco Allergies Meds Problems Med Hx Surg Hx Fam Hx Review of Systems Skin: Painful callus, painful toenails All other systems reviewed and are negative. Objective Visit Vitals OB Status Postmenopausal Smoking Status Current Every Day Smoker General ??? Appearance: stated age and healthy ??? Orientation: AAOx3 ??? Affect: flat ??? Gait: unimpaired with no use of assistive device Lower Extremity Vascular ??? Pulses: DP pulses absent bilateral. PT pulses absent bilateral. ??? Capillary refill time: within normal limits bilateral to all pedal digits. ??? Pedal hair growth: absent bilateral lower extremities from the knee distally. ??? Edema: mild diffuse nonpitting edema to bilateral lower extremities ??? Skin Temperature: toes cool to touch bilateral lower extremities Lower Extremity Dermatology ??? Skin: skin atrophic thin and shiny bilateral lower extremities. ??? Callus bilateral IPJ of both great toes, distal aspect of the second toes bilateral. No skin color changes. No pain after debridement. No open wounds or drainage. ??? Wounds/Ulcer: No open wounds. No visible scars. ??? Toenails: toenails 1-5 bilateral thickened, discolored, painful, elongated with subungal debris.Perinail skin with erythema. Lower Extremity Neurology ??? Light touch sensation: decreased to the plantar aspect of the foot with positive numbness, burning and tingling to the toes ??? Tinel sign: negative bilateral lower extremities over the tibial nerve ??? [place] 10g Monofilament testing: reduced to bilateral plantar foot Lower Extremity Musculoskeletal ??? Right lower extremity - Inspection: hammertoe deformity 2-5, hallux valgus - Muscle strength and tone: 5/5 for all muscle groups of the lower leg anterior, posterior, deep posterior and lateral compartments. Pedal muscle group testing 5/5. Muscle tone within normal limites - Range of motion: ankle, rearfoot, midfoot and forefoot within normal limits and nonpainful - Stability of joints: no instability appreciated. ??? Left lower extremity - Inspection: hammertoe deformity 2-5, hallux valgus. - Muscle strength and tone: 5/5 for all muscle groups of the lower leg anterior, posterior, deep posterior and lateral compartments. Pedal muscle group testing 5/5. Muscle tone within normal limites - Range of motion: ankle, rearfoot, midfoot and forefoot within normal limites and nonpainful - Stability of joints: no instability appreciated. ??? Bilateral stance exam: Pedal foot structure pes planus in alignment Assessment/Plan Diagnoses and all orders for this visit: Tinea unguium - Toenail fungus reviewed with the patient in detail. I have discussed treatment options for the toenail fungus including soaking, medications and routine toenail debridements. - procedure performed: debridement of mycotic nails x10 - follow up 3 months Corns and callosities - callus debrided to bilateral great toes and bilateral 2nd toes today - procedure performed: callus debridement x4 Toe pain, bilateral Diabetic peripheral neuropathy - Discussed the importance of daily foot exams with the patient. Reviewed appropriate shoes for thepatient to be wearing to reduce the risk of diabetic pedal complications. Recommend patient check her blood sugar on a regular basis. Continue to keep scheduled follow up appointments with other physicians. Hallux valgus with bunions of left foot Hallux valgus with bunions, right Acquired bilateral hammer toes - Reviewed digital deformities with the patient as a cause to her callus formation. Recommend appropriate extra depth wide shoes to reduce risk of diabetic related pedal complications. Recommend and discussed diabetic shoes with patient today Procedure Toenail Debridement: Debridement of thickened, elongated nail plates 1 through 5 bilateral, performed by mechanically debriding the distal third of the nail plate of abnormal mycotic nail plate and debris. Pain relief noted with procedure. Patient tolerated procedure well. No complications associated with the procedure today. Callus Debridement x4: Debridement of thickened callused abnormal nonviable skin to the level of thedermis to the medial aspect the great toe bilateral and distal aspect of the 2nd toe bilateral. Painrelief noted with procedure. Patient tolerated procedure well. No complications associated with callus debridement x4 today. 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
--- OUTSIDE RECORDS SUMMARY | 2021-12-09 21:33 | XMS_ITS | Encounter Summary ---
:1950 Author Organization [facility] Address [address] [place] [address] Care Team Providers Name Role Phone Sebastian Griffiths MD Primary Care Provider Reason for Visit Reason Onset Date Comments medication question 07/24/2018 Encounter Details Date Type Department Care Team Description 07/24/2018 Telephone [facility] Sebastian Griffiths MD medication question [address] [facility] [address] [place] [address] [place] [address] [phone] (Wo rk) Social History Tobacco Use Types [...] do you attend holiness or Never 2020 mormonism services? Do you [...] this encounter Miscellaneous Notes Telephone Encounter - Marcial Inman MD - 07/29/2018 7:40 PM CDT FYI They are the same exact drug Addendum Note - Marcial Inman MD - 07/29/2018 7:40 PM CDT Addended by: MARCIAL INMAN on: 07/29/2018 07:40 PM Modules accepted: Orders Telephone Encounter - Sun Gloria RN - 07/25/2018 9:19 AM CDT Called pharmacy back. Vistaril is on a national backorder. They can fill Atarax but need a new Rx sent for this. Please advise on new Rx. Telephone Encounter - Sun Gloria RN - 07/24/2018 1:38 PM CDT Tried calling pharmacy back but the phone just rang and went to answering machine to leave message. Did not leave message. Will try again later. Telephone Encounter - Marcial Inman MD - 07/24/2018 11:58 AM CDT Fine Telephone Encounter - Mili Rivera MA - 07/24/2018 11:26 AM CDT Pharmacy calling for verbal okay to fill tablets instead of capsules for patient. Last script done on 04/18/18 Hydroxyzine 25 mg Call pharmacy back [phone] documented in this encounter Plan of Treatment Upcoming Encounters Date Type Specialty Care Team Description 01/18/2022 Telemedicine Family Medicine Sebastian Griffiths MD [address] [place] [phone] (Wo rk) documented as of this encounter Visit Diagnoses Diagnosis Anxiety - Primary Anxiety state, unspecified Pruritic condition Unspecified pruritic disorder documented in this encounter Care Teams Sleep Medicine Physician Relationship Specialty Start Date End Date Sebastian Griffiths MD PCP - General 10/24/17 7 [place] [address] documented as of this encounter
--- OUTSIDE RECORDS SUMMARY | 2021-12-09 21:33 | XMS_ITS | Encounter Summary ---
:1950 Author Organization [facility] Address [address] [place] [address] Care Team Providers Name Role Phone Sebastian Griffiths MD Primary Care Provider Reason for Visit Reason Onset Date Comments Med Refill 07/30/2018 Encounter Details Date Type Department Care Team Description 07/30/2018 Refill SE Family Med Sebastian Griffiths MD Generalized anxiety [address] [facility] [address] [place] [address] [place] [address] [phone] (Wo rk) Social History Tobacco Use Types [...] do you attend restoration or Never 2020 samaritan services? Do you [...] Telephone Encounter - Mandi Kwon MA - 07/30/2018 7:23 AM CDT Lorazepam 1mg #90 +1 refill, 06/26/2018 Prescription sent previously to [facility], do to controlled medication refill can not be transferred. Last office visit 06/26/2018 Declined PHQ-9 and SUMI-7 Future appt scheduled 08/14/2018 documented in this encounter Plan of Treatment Upcoming Encounters Date Type Specialty Care Team Description 01/18/2022 Telemedicine Family Medicine Sebastian Griffiths MD [address] [place] [phone] (Wo rk) documented as of this encounter Visit Diagnoses Diagnosis Generalized anxiety disorder documented in this encounter Care Teams Ware Dresser Relationship Specialty Start Date End Date Sebastian Griffiths MD PCP - General 10/24/[address] [place] [address] documented as of this encounter
--- OUTSIDE RECORDS SUMMARY | 2021-12-09 21:33 | XMS_ITS | Encounter Summary ---
:1950 Author Organization [facility] Address [address] [place] [address] Care Team Providers Name Role Phone Sebastian Griffiths MD Primary Care Provider Encounter Details Date Type Department Care Team Description 05/27/2018 Abstract SE Family Med Sebastian Griffiths MD [address] [facility] [address] [place] [address] [place] [address] [phone] (Wo rk) Social History Tobacco Use Types [...] do you attend scientology or Never 2020 protestant services? Do you [...] Telemedicine Family Medicine Sebastian Griffiths MD [address] [place] [phone] (Wo rk) documented as of this encounter Visit Diagnoses Not on filedocumented in this encounter Care Teams Director Of Software Development Relationship Specialty Start Date End Date Sebastian Griffiths MD PCP - General 10/24/17 7 [place] [address] documented as of this encounter
--- OUTSIDE RECORDS SUMMARY | 2021-12-09 21:33 | XMS_ITS | Encounter Summary ---
:1950 Author Organization [facility] Address [address] [place] [address] Care Team Providers Name Role Phone Sebastian Griffiths MD Primary Care Provider Reason for Visit Reason Comments Med Refill Encounter Details Date Type Department Care Team Description 07/05/2018 Refill SE Family Med Sebastian Griffiths MD Insomnia, unspecified [address] [facility] [address] [place] [address] [place] [address] [phone] (Wo rk) Social History Tobacco Use Types [...] do you attend lutheran or Never 2020 cheondoism services? Do you [...] Telephone Encounter - Tamie Shore MA - 07/05/2018 1:35 PM CDT ZOLPIDEM TARTRATE 5MG TABS, #30 x 3 refills 03/27/2018 Med was last reviewed on 03/27/2018. Pt has an upcoming appointment scheduled on 08/14/2018 Please advise, thank you. documented in this encounter Plan of Treatment Upcoming Encounters Date Type Specialty Care Team Description 01/18/2022 Telemedicine Family Medicine Sebastian Griffiths MD [address] [place], [place] [address] (Wo rk) documented as of this encounter Visit Diagnoses Diagnosis Insomnia, unspecified type documented in this encounter Care Teams Orthotics Prosthetics Assistant Relationship Specialty Start Date End Date Sebastian Griffiths MD PCP - General 10/24/[address] [place] [address] documented as of this encounter
--- OUTSIDE RECORDS SUMMARY | 2021-12-09 21:33 | XMS_ITS | Encounter Summary ---
:1950 Author Organization [facility] Address [address] [place] [address] Care Team Providers Name Role Phone Sebastian Griffiths MD Primary Care Provider Reason for Visit Reason Onset Date Comments for providers information. 06/15/2018 Encounter Details Date Type Department Care Team Description 06/15/2018 Telephone [facility] Sebastian Griffiths, for providers [address] [facility] [place] [address] 2 [facility] [phone] [place], [place] [id number] Social History Tobacco Use Types Packs/Day Years [...] do you attend rastafari or Never 2020 worship services? Do you [...] Telephone Encounter - Mili Rivera MA - 06/15/2018 9:04 AM CDT Home health nurse calling stating she went to patient's home yesterday 06/14/18 to set up patient's medication, but patient wasn't available. Nurse letting us know just for our information. documented in this encounter Plan of Treatment Upcoming Encounters Date Type Specialty Care Team Description 01/18/2022 Telemedicine Family Medicine Sebastian Griffiths MD [address] [place], [place] [address] (Wo rk) documented as of this encounter Visit Diagnoses Not on filedocumented in this encounter Care Teams Division Plant Engineer Relationship Specialty Start Date End Date Sebastian Griffiths MD PCP - General 10/24/[address] [place] [address] documented as of this encounter
--- OUTSIDE RECORDS SUMMARY | 2021-12-09 21:33 | XMS_ITS | Encounter Summary ---
:1950 Author Organization [facility] Address [address] [place] [address] Care Team Providers Name Role Phone Sebastian Griffiths MD Primary Care Provider Reason for Visit Reason Onset Date Comments patient update 06/28/2018 Knee Pain 06/28/2018 left knee Encounter Details Date Type Department Care Team Description 06/28/2018 Nurse Triage [facility] Sebastian Griffiths MD [address] [facility] [address] [place] [address] [place] [address] [phone] (Wo rk) Social History Tobacco Use Types [...] do you attend voodoo or Never 2020 latter day services? Do [...] this encounter Miscellaneous Notes Telephone Encounter - Sosa Garcia LPN - 07/05/2018 12:16 PM CDT Left detailed message on Rehana's voicemail that provider is not willing to prescribe any pain medsand pt needs to keep her Ortho appointment on the Telephone Encounter - Sebastian Griffiths MD - 07/05/2018 8:52 AM CDT No, patient wants opiates and I don't think that is good for her due to her multiple failures in thepast. Telephone Encounter - Kaelyn Lawson RN - 07/05/2018 8:39 AM CDT Caregiver is calling back because patient is complaining of increased left knee pain and wants more pain medication to get her through to her orthopedic appointment on 07/10/2018. -she is not taking her prednisone, as noted in previous call because she says it makes her face swell. -patient's ambulation is not worse than normal, but is slower than normal. -Will message provider, call back with their response by nurse when able. Reason for Disposition ? ? MODERATE pain (e.g., symptoms interfere with work or school, limping) and present > 3 days Caregiver reports patient told her that her pain level went up when she received a copy of last healthcare summary telling to to report on medication use. Additional Information ??? Negative: SEVERE pain (e.g., excruciating, unable to walk) Rating pain 10/10 in left knee, but was sleeping when health care provider arrived at her home. Protocols used: KNEE PAIN-A-OH Telephone Encounter - Mili Rivera MA - 06/28/2018 9:32 AM CDT Rehana is calling back to talk to Dr. Griffiths, per last visit notes dated 06/26/18 Have Rehana call me about pain meds Here is an update from Rehana: 1)Rena is refusing to take Prednisone 5 mg. 2)she wants to inform provider that all meds are kept lock, she does a week out at a time, plus 3 days, all bottles stay locked, Rehana has a santiago and so does the facility. 3)Today's vitals: Blood pressure today 146/104, second time 139/103. Third BP 129/98. Pulse 77, temp97.4, resp 22, oxygen 99, blood sugars 179 If provider has additional questions or concerns about patients medications please call Rehana backat [phone] documented in this encounter Plan of Treatment Upcoming Encounters Date Type Specialty Care Team Description 01/18/2022 Telemedicine Family Medicine Sebastian Griffiths MD [address] [place], [place] [phone] (Wo rk) documented as of this encounter Visit Diagnoses Not on filedocumented in this encounter Care Teams Mainframe Applications Developer Relationship Specialty Start Date End Date Sebastian Griffiths MD PCP - General 10/24/17 [address] [place] [address] documented as of this encounter
--- OUTSIDE RECORDS SUMMARY | 2021-12-09 21:33 | XMS_ITS | Encounter Summary ---
:1950 Author Organization [facility] Address [address] [place] [address] Care Team Providers Name Role Phone Sebastian Griffiths MD Primary Care Provider Reason for Visit Reason Onset Date Comments visit notes for DME order 08/21/2018 Encounter Details Date Type Department Care Team Description 08/21/2018 Telephone [facility] Sebastian Griffiths, visit notes for DME [address] [facility] [place] [address] [place] [address] [place], [place] [id number] Social History Tobacco Use Types Packs/Day Years [...] do you attend faith or Never 2020 mosque services? Do you [...] Telephone Encounter - Maribell Richards RN - 08/21/2018 12:43 PM CDT Has been faxed Telephone Encounter - Mili Rivera MA - 08/21/2018 11:04 AM CDT [facility] calling requesting office visit notes for visit on 08/14/18, for DME order for [employer] Veh[employer] (scooter) please fax visit notes to [phone]. documented in this encounter Plan of Treatment Upcoming Encounters Date Type Specialty Care Team Description 01/18/2022 Telemedicine Family Medicine Sebastian Griffiths MD [address] [place], [place] [phone] (Wo rk) documented as of this encounter Visit Diagnoses Not on filedocumented in this encounter Care Teams Cancer Registry Coordinator Relationship Specialty Start Date End Date Sebastian Griffiths MD PCP - General 10/24/[address] [place] [phone] documented as of this encounter
--- OUTSIDE RECORDS SUMMARY | 2021-12-09 21:33 | XMS_ITS | Encounter Summary ---
:1950 Author Organization [facility] Address [address] [place] [address] Care Team Providers Name Role Phone Sebastian Griffiths MD Primary Care Provider Reason for Visit Reason Onset Date Comments Asthma 08/02/2018 Encounter Details Date Type Department Care Team Description 08/02/2018 Nurse Triage [facility] Sebastian Griffiths MD [address] [facility] [address] [place] [address] [place] [address] [phone] (Wo rk) Social History Tobacco Use Types [...] do you attend methodist or Never 2020 cheondoism services? Do you [...] Telephone Encounter - Martha Salazar RN - 08/02/2018 8:30 AM CDT Patient's home care nurse calling in with concerns of mild wheezing. The patient has not complained of any shortness of breath, and has been breathing normally. The nurse does not appreciate any visible dyspnea. She says that she has had a mild cough with greyish sputum. She has continued having some high blood pressure readings at home, and this morning it was 148/96, however she was seen recently for this. Her other vitals include O2 94% on room air, respirations 18, temp 95.7, pulse 88. The nursesaid she heard wheezing in both lungs. She has a nebulizer machine and DuoNeb treatments available at home, but has not used these yet. Advised the home care nurse to give her a treatment and encourageher to do them regularly throughout the next few days. If she continues to have wheezing, or worsens, she should come in for evaluation. Reason for Disposition ??? MILD asthma attack (e.g., no SOB at rest, mild SOB with walking, speaks normally in sentences, mild wheezing) Protocols used: ASTHMA ATTACK-A-OH documented in this encounter Plan of Treatment Upcoming Encounters Date Type Specialty Care Team Description 01/18/2022 Telemedicine Family Medicine Sebastian Griffiths MD [address] [place] [phone] (Wo rk) documented as of this encounter Visit Diagnoses Not on filedocumented in this encounter Care Teams Formula Clerk Relationship Specialty Start Date End Date Sebastian Griffiths MD PCP - General 10/24/[address] [place] [phone] documented as of this encounter
--- OUTSIDE RECORDS SUMMARY | 2021-12-09 21:33 | XMS_ITS | Encounter Summary ---
:1950 Author Organization [facility] Address [address] [place] [address] Care Team Providers Name Role Phone Sebastian Griffiths MD Primary Care Provider Reason for Visit Reason Comments breathing not better Encounter Details Date Type Department Care Team Description 05/24/2018 Office Visit [facility] Marcial Inman Myalgia (Primary Dx); [address] [facility] MD Moriah Cough; [place] [address] [address] [facility] [address] Pneumonia of right lower lob e due to infectious organism (HCC) [phone] [place] [address] Social History Tobacco Use Types [...] do you attend mormonism or Never 2020 hindu services? Do you [...] Sign Reading Time Taken Comments Blood Pressure 132/74 05/24/2018 9:16 AM BLUEPRINT MAKER Pulse 100 05/24/2018 9:16 AM BLUEPRINT MAKER Temperature 36.6 ??C (97.9 ??F) 05/24/2018 9:16 AM BLUEPRINT MAKER Respiratory Rate 24 05/24/2018 9:16 AM BLUEPRINT MAKER Oxygen Saturation 96% 05/24/2018 9:16 AM BLUEPRINT MAKER Inhaled Oxygen Concentration - - Weight 104 kg (229 lb 11.5 oz) 05/24/2018 9:16 AM BLUEPRINT MAKER Height 165 cm (5' 4.96) 05/24/2018 9:16 AM BLUEPRINT MAKER Body Mass Index 38.27 05/24/2018 9:16 AM BLUEPRINT MAKER documented in this encounter Progress Notes Marcial Inman MD - 05/24/2018 9:20 AM CST Subjective Patient ID: Rena Fan is a 68 y.o. female. HPI Patient returns Saying she hurts all over She has a history of multiple substance abuse issues And will not be given any controlled substances today She is additionally concerned that her cough is worse She is coughing up clear sputum Review of Systems 100% positive Objective Physical Exam Lungs are very congested She wreaks of tobacco smoke She is ambulatory chest xray shows infiltrate right lower lobe Assessment/Plan Diagnoses and all orders for this visit: Myalgia - ESR-Sed rate; Future - C-reactive protein; Future Cough - X-ray Chest 2 Views; Future - CBC ([facility]); Future Pneumonia Will treat with zithromax 500 mg daily for 5 days She asked for pain medications mutiple times which we did not provide documented in this encounter Plan of Treatment Upcoming Encounters Date Type Specialty Care Team Description 01/18/2022 Telemedicine Family Medicine Sebastian Griffiths MD [address] [place] [phone] (Wo rk) documented as of this encounter Procedures Procedure Name Priority Date/Time Associated Diagnosis Comme nts XR CHEST 2 VIEWS Routine 05/24/2018 10:02 AM Cough Resu lts for this BLUEPRINT MAKER procedure are i n the results section. documented in this encounter Results X-ray Chest 2 Views (05/24/2018 10:02 AM BLUEPRINT MAKER) Anatomical Region Laterality Modality Body Radiographic Imaging Specimen (Source) Anatomical Collection Method Collection Time Re ceived Time Location / / Volume Laterality 05/24/2018 10:02 AM BLUEPRINT MAKER Impressions 05/24/2018 10:26 AM BLUEPRINT MAKER IMPRESSION: There has been interval development of m ild bilateral lower lung interstitial coarsening, which is nonspe cific and may be due to pneumonia or fibrotic scarring. ??Follow-up chest x-ray could be considered to assess resolution. Narrative 05/24/2018 10:26 AM BLUEPRINT MAKER INDICATION: Cough, persistent COMPARISON: Chest x-ray September 01, 2017 FINDINGS: CHEST 2 VIEWS No pulmonary vascular cephalization. Hea rt size is within normal limits. Calcification and mild descending tortuo sity are again seen in the aorta. ?? There has been interval development of m ild bilateral lower lung interstitial coarsening. ??No pneumothor ax or pleural effusion. Vertebroplasty cement is again seen at a pproximately L1. Old left posterior 5th rib fracture is re-demonst rated. No acute fracture. Procedure Note Shima Hsu MD - 05/24/2018 INDICATION: Cough, persistent COMPARISON: Chest x-ray September 01, 2017 FINDINGS: CHEST 2 VIEWS No pulmonary vascular cephalization. Hea rt size is within normal limits. Calcification and mild descending tortuo sity are again seen in the aorta. There has been interval development of m ild bilateral lower lung interstitial coarsening. No pneumothorax or pleural effusion. Vertebroplasty cement is again seen at a pproximately L1. Old left posterior 5th rib fracture is re-demonst rated. No acute fracture. IMPRESSION: There has been interval development of m ild bilateral lower lung interstitial coarsening, which is nonspe cific and may be due to pneumonia or fibrotic scarring. Follow-up chest x- ray could be considered to assess resolution. Marcial Inman MD IMG XR PROCEDURES (ABNORMAL) CBC ([facility]) (05/24/2018 9:41 AM BLUEPRINT MAKER) P athologist Signature WBC 11.9 (H) 3.5 - 10.5 05/24/2018 [facility] K/uL 10:38 AM [facility] RBC 3.88 (L) 3.90 - 05/24/2018 [facility] 5.00 M/uL 10:38 AM [facility] Hemoglobin 11.8 (L) 12.0 - 05/24/2018 [facility] 15.5 g/dL 10:38 AM [facility] Hematocrit 36.5 35.0 - 05/24/2018 [facility] 44.0 % 10:38 AM [facility] Platelets 323 150 - 450 05/24/2018 [facility] K/uL 10:38 AM [facility] MCV 94.0 81.6 - 05/24/2018 [facility] 98.3 fL 10:38 AM [facility] MCH 30.3 26.0 - 05/24/2018 [facility] 32.0 pg 10:38 AM [facility] MCHC 32.2 32.0 - 05/24/2018 [facility] 36.0 g/dL 10:38 AM [facility] RDW 12.4 11.9 - 05/24/2018 [facility] 15.5 % 10:38 AM [facility] Specimen Anatomical Collection Method Collection Time Receive d Time (Source) Location / / Volume Laterality Blood (Blood, 05/24/2018 9:41 AM 05/25/19 19 Venous) [facility] [employer]KER 10:19 AM BLUEPRINT MAKER Marcial Inman MD LAB BLOOD ORDERABLES Performing Organization Address City/[facility]/ZIP Code Phon e Number [facility] [address] [place] [phone] (ABNORMAL) C-reactive protein (05/24/2018 9:41 AM BLUEPRINT MAKER) athologist Signature CRP 11.9 (H) 0.0 - 9.9 05/24/2018 [facility] mg/L 12:07 PM [facility] Comment: . Specimen Anatomical Collection Method Collection Time Receive d Time (Source) Location / / Volume Laterality Blood (Blood, 05/24/2018 9:41 AM 05/25/19 19 Venous) [facility]KER 11:20 AM BLUEPRINT MAKER Marcial Inman MD LAB BLOOD ORDERABLES Performing Organization Address City/State/ZIP Code Phon e Number [facility] [address] [place] [phone] ESR-Sed rate (05/24/2018 9:41 AM BLUEPRINT MAKER) athologist Signature Sed Rate 29 0 - 29 05/24/2018 [facility] mm/hr 11:23 AM [facility] Specimen Anatomical Collection Method Collection Time Receive d Time (Source) Location / / Volume Laterality Blood (Blood, 05/24/2018 9:41 AM 05/25/19 19 Venous) BLUEPRINT [employer]KER 10:19 AM BLUEPRINT MAKER Marcial Inman MD LAB BLOOD ORDERABLES Performing Organization Address City/State/ZIP Code Phon e Number [facility] [address] [place] [address] documented in this encounter Visit Diagnoses Diagnosis Myalgia - Primary Unspecified myalgia and myositis Cough Pneumonia of right lower lobe due to inf ectious organism documented in this encounter Care Teams Television Newscast Director Relationship Specialty Start Date End Date Sebastian Griffiths MD PCP - General 10/24/[address] [place] [phone] documented as of this encounter
--- OUTSIDE RECORDS SUMMARY | 2021-12-09 21:33 | XMS_ITS | Encounter Summary ---
:1950 Author Organization [facility] Address [address] [place] [address] Care Team Providers Name Role Phone Sebastian Griffiths MD Primary Care Provider Reason for Visit Reason Comments Hypertension Encounter Details Date Type Department Care Team Description 07/26/2018 Office Visit [facility] Edward Castrejon MD Essential hypertension (Primary Dx); [address] [facility] [address] Chronic pain of both knees; [place], [place] [address] Chronic low back pain, unspecified back pain laterality, with sciatica presence unspecified [phone] [place] [address] Social History Tobacco Use Types [...] do you attend alevism or Never 2020 buddhist services? Do you [...] Sign Reading Time Taken Comments Blood Pressure 146/72 07/26/2018 11:33 AM CDT Pulse 99 07/26/2018 11:33 AM CDT Temperature 36.3 ??C (97.3 ??F) 07/26/2018 11:33 AM CDT Respiratory Rate 18 07/26/2018 11:33 AM CDT Oxygen Saturation 97% 07/26/2018 11:33 AM CDT Inhaled Oxygen Concentration - - Weight 104 kg (229 lb 4.5 oz) 07/26/2018 11:33 AM CDT Height 165 cm (5' 4.96) 07/26/2018 11:33 AM CDT Body Mass Index 38.2 07/26/2018 11:33 AM CDT documented in this encounter Progress Notes Edward Castrejon MD - 07/26/2018 10:50 AM CDT Estab Patient Visit Subjective Patient ID: Rena Fan is a 68 y.o. female. Chief Complaint Patient presents with ??? Hypertension History of Present Illness HPI The patient is a history of hypertension. I have reviewed her records. I see that she is taking amlodipine 5 mg daily. Cozaar 50 mg daily. And then a combination of lisinopril and hydrochlorothiazide. The patient says that her blood pressure was elevated earlier today. In fact I did review nursing triage notes. Patient has a home health nurse. Home health nurse calledbecause blood pressure was elevated. Per nurse triage notes blood pressure at home 140/109 and a repeat of 140/118. Now today of presentation blood pressure 146/72. Previous visits the last 2 visits it has been less than 140/90. It should be noted when these blood pressures were taken and it was not clear whether the patient had taken antihypertensive medications this morning. Patient says that the reason her blood pressure has been elevated is because she is in pain. The patient asked several times for pain medicine. I see that the patient has a chronic pain syndrome. History of alcohol dependency. History of cocaine dependency. The patient does have compression fracture L1 vertebrae. Osteoarthritis of her knees. I am not disputing as explained the patient that she is in pain. Unfortunately patient says she is allergic to NSAIDs. Patient says she is allergic to tramadol. The patient is on Cymbalta. Also gabapentin. Review of Systems Review of Systems Per the history of present illness. The patient denied any other active medical problems or concerns. Allergies Bee venom; Aspirin; Nsaids; Penicillins; Tramadol; and Varenicline Medications Current Outpatient Medications: ??? albuterol HFA (VENTOLIN HFA) 108 (90 Base) MCG/ACT inhaler, Inhale if needed , Disp: , Rfl: ??? amLODIPine (NORVASC) 5 MG tablet, Take 1 tablet (5 mg total) by mouth 1 (one) time each day, Disp: 90 tablet, Rfl: 3 ??? aspirin 81 MG chewable tablet, Chew 81 mg 1 (one) time each day , Disp: , Rfl: ??? BASAGLAR KWIKPEN 100 UNIT/ML injection, INJECT [...] [address] capsule, TAKE TWO CAPSULES DAILY (Patient taking differently: TAKE TWO CAPSULES BY MOUTH DAILY), Disp: 60 capsule, Rfl: 5 ??? EPINEPHrine (EPIPEN) 0.3 MG/0.3ML injection syringe, INJECT NEEDED FOR A BEE STING, Disp: 1 Syringe, Rfl: 1 ??? fluticasone (FLONASE) 50 MCG/ACT nasal spray, Administer 1 spray into each nostril 2 (two) timesa day , Disp: , Rfl: ??? gabapentin (NEURONTIN) 300 MG capsule, Take 900 mg by mouth 3 (three) times a day , Disp: , Rfl: ??? HM PAIN RELIEF EXTRA STRENGTH 500 MG tablet, TAKE TWO CAPLETS BY MOUTH THREE TIMES A DAY NEEDED FOR PAIN, Disp: 100 tablet, Rfl: 11 ??? hydrOXYzine (VISTARIL) 25 MG capsule, Take 1 capsule (25 mg total) by mouth 3 (three) times a day if needed for itching, Disp: 30 capsule, Rfl: 11 ??? ipratropium-albuterol (DUO-NEB) 0.5-2.5 mg/3 mL nebulizer solution, USE ONE (1) VIAL VIA NEBULIZER UP TO EVERY 4 HOURS NEEDED WHEEZING., Disp: 180 mL, Rfl: 3 ??? JANUVIA 100 MG tablet, TAKE 1 TABLET BY MOUTH EVERY MORNING (Patient taking differently: TAKE one 100 mg TABLET BY MOUTH EVERY MORNING), Disp: 30 tablet, Rfl: 3 ??? ketorolac (ACULAR) 0.5 % ophthalmic solution, Administer 1 drop into affected eye(s) 4 times daily, Disp: , Rfl: ??? latanoprost (XALATAN) 0.005 % ophthalmic solution, Administer 1 drop into both eyes every night,Disp: 2.5 mL, Rfl: 11 ??? lidocaine (XYLOCAINE) 5 % ointment, Apply [...] DAY, Disp: 90 tablet, Rfl: 1 ??? losartan (COZAAR) 50 MG tablet, TAKE 1 TABLET BY MOUTH EVERY MORNING (FOR BLOOD PRESSURE), Disp:, Rfl: 3 ??? methocarbamol (ROBAXIN) 500 MG tablet, TAKE 1 TABLET BY MOUTH TWICE DAILY NEEDED FOR MUSCLE SPASMS, Disp: 120 tablet, Rfl: 3 ??? moxifloxacin (VIGAMOX) 0.5 % ophthalmic solution, [...] MOUTH TWICE DAILY, Disp: 60 tablet, Rfl: 3 ??? sodium chloride (OCEAN) 0.65 % nasal [...] 2 times daily, Disp: , Rfl: ??? zolpidem (AMBIEN) 5 MG tablet, TAKE 1 TABLET BY MOUTH AT NIGHT NEEDED FOR SLEEP, Disp: 90 tablet, Rfl: 1 The following portions of the patient's chart were reviewed in this encounter and updated as appropriate: Tobacco Allergies Meds Problems Med Hx Surg Hx Fam Hx Objective Physical Exam Vital signs are as per the chart Physical examination in general patient pleasant no apparent distress Assessment/Plan Diagnoses and all orders for this visit: Essential hypertension Chronic pain of both knees Chronic low back pain, unspecified back pain laterality, with sciatica presence unspecified I explained the patient that currently her blood pressure does not look too bad. I am kind of reluctant based on her current medications to change or alter her antihypertensive medication regimen. Especially given the fact that there was some question about whether or not she even taken her medicines prior to her blood pressure being elevated this morning. Therefore for now I would like for her to continue on her current medical regimen. I tried to carefully explain to the patient that I am not disputing that she is having pain. HoweverI am not comfortable in meeting the patient for a one-time acute visit of prescribing pain medicines. Based on her allergies it seems like narcotics are about the only thing that the patient could potentially even take. I explained the patient that she is on Cymbalta. That she is on gabapentin. Both of those are helpful for pain. Patient does have extra strength acetaminophen to take as needed. I would recommend a follow-up with Dr. Griffiths if she continues to have concerns regarding her blood pressure and/or the pain. Total time with patient was 15 minutes greater than 50% of time was spent in counseling and coordination of care. Discussing with the patient the topics as outlined above. Sebastian Griffiths MD - 07/26/2018 10:50 AM CDT Reviewed documented in this encounter Plan of Treatment Upcoming Encounters Date Type Specialty Care Team Description 01/18/2022 Telemedicine Family Medicine Sebastian Griffiths MD [address] [place], [place] [phone] (Wo rk) documented as of this encounter Visit Diagnoses Diagnosis Essential hypertension - Primary Unspecified essential hypertension Chronic pain of both knees Chronic low back pain, unspecified back pain laterality, with sciatica presence unspecified documented in this encounter Care Teams Contact Lens Manufacturer Relationship Specialty Start Date End Date Sebastian Griffiths MD PCP - General 10/24/17 [address] [place], [place] [phone] documented as of this encounter
--- OUTSIDE RECORDS SUMMARY | 2021-12-09 21:33 | XMS_ITS | Encounter Summary ---
:[address] [facility] Address [address] [place] [address] Care Team Providers Name Role Phone Sebastian Griffiths MD Primary Care Provider Reason for Visit Reason Comments Med Refill Encounter Details Date Type Department Care Team Description 08/23/2018 Refill SE Family Med Sebastian Griffiths, Osteoarthritis of both [address] [facility] knees, [place] [address] osteoarthritis type [phone] [place] [address] Social History Tobacco Use Types [...] do you attend taoism or Never 2020 anabaptist services? Do you [...] this encounter Miscellaneous Notes Telephone Encounter - Coco Rice MA - 08/24/2018 4:31 PM CDT Acetaminophen extra strength 500 mg tablet Last Written: 01/16/18 Quantity: 100 Refills: 11 Last Appointment: 08/14/18 Next Appointment: 8/27/19 Previously sent to Gina Koch, now being requested by [facility] [place]. Please provide a new prescription. documented in this encounter Plan of Treatment Upcoming Encounters Date Type Specialty Care Team Description 01/18/2022 Telemedicine Family Medicine Sebastian Griffiths MD [address] [place] [phone] (Wo rk) documented as of this encounter Visit Diagnoses Diagnosis Osteoarthritis of both knees, unspecifie d osteoarthritis type documented in this encounter Care Teams Kier Boiler Relationship Specialty Start Date End Date Sebastian Griffiths MD PCP - General 10/24/[address] [place] [phone] documented as of this encounter
--- OUTSIDE RECORDS SUMMARY | 2021-12-09 21:33 | XMS_ITS | Encounter Summary ---
:1950 Author Organization [facility] Address [address] [place] [address] Care Team Providers Name Role Phone Sebastian Griffiths MD Primary Care Provider Reason for Visit Reason Onset Date Comments Hypertension 07/26/2018 Encounter Details Date Type Department Care Team Description 07/26/2018 Nurse Triage [facility] Sebastian Griffiths MD [address] [facility] [address] [place] [address] [place] [address] [phone] (Wo rk) Social History Tobacco Use Types [...] do you attend mosque or Never 2020 catholic services? Do you [...] Telephone Encounter - Kaelyn Lawson RN - 07/26/2018 8:33 AM CDT Nurse is calling with patient present, she has a blood pressure 140/109 and 140/118 with a heart rate of 90 and a respiratory rate of 18, O2 saturations 96% -when I asked if she took her blood pressure medications this morning, she states not likely but she does not clarify -given to cad to schedule. Reason for Disposition ? ? Systolic BP >= 180 OR Diastolic >= 110 Protocols used: HIGH BLOOD [id number] documented in this encounter Plan of Treatment Upcoming Encounters Date Type Specialty Care Team Description 01/18/2022 Telemedicine Family Medicine Sebastian Griffiths MD [address] [place], [place] [phone] (Wo rk) documented as of this encounter Visit Diagnoses Not on filedocumented in this encounter Care Teams Manager Production Relationship Specialty Start Date End Date Sebastian Griffiths MD PCP - General 10/24/[address] [place] [phone] documented as of this encounter
--- OUTSIDE RECORDS SUMMARY | 2021-12-09 21:33 | XMS_ITS | Encounter Summary ---
:1950 Author Organization [facility] Address [address] [place] [address] Care Team Providers Name Role Phone Sebastian Griffiths MD Primary Care Provider Reason for Visit Reason Comments Med Refill Encounter Details Date Type Department Care Team Description 07/12/2018 Refill SE Family Med Sebastian Griffiths MD Insomnia, unspecified [address] [facility] [address] [place] [address] [place] [address] [phone] (Wo rk) Social History Tobacco Use Types [...] do you attend denominational or Never 2020 amish services? Do you [...] Telephone Encounter - Lindsay Ny LPN - 07/12/2018 3:58 PM CDT Date/Time Signed: 07/05/2018 17:43 E-Prescribing Status: Receipt confirmed by pharmacy (07/05/2018 ??5:44 PM CDT) Patient has refills available confirmed with pharmacy documented in this encounter Plan of Treatment Upcoming Encounters Date Type Specialty Care Team Description 01/18/2022 Telemedicine Family Medicine Sebastian Griffiths MD [address] [place], [place] [phone] (Wo rk) documented as of this encounter Visit Diagnoses Diagnosis Insomnia, unspecified type documented in this encounter Additional Health Concerns Infection Onset Date Last Indicated Resolved Time COVID-19 Rule Out 10/27/2019 10/27/2019 10/27/2019 11: 08 PM CDT documented as of this encounter Care Teams Pharmaceutical Worker Relationship Specialty Start Date End Date Sebastian Griffiths MD PCP - General 10/24/[address] [place] [phone] documented as of this encounter
--- OUTSIDE RECORDS SUMMARY | 2021-12-09 21:33 | XMS_ITS | Encounter Summary ---
:1950 Author Organization [facility] Address [address] [place] [address] Care Team Providers Name Role Phone Sebastian Griffiths MD Primary Care Provider Encounter Details Date Type Department Care Team Description 07/19/2018 Telephone SE [facility] Sebastian Griffiths MD [address] [facility] [address] [place] [address] [place] [address] [phone] (Wo rk) Social History Tobacco Use Types [...] do you attend confucianism or Never 2020 gnosticist services? Do you [...] Telephone Encounter - Sebastian Griffiths MD - 07/19/2018 9:47 AM CDT Noted, thanks. Telephone Encounter - Kaelyn Lawson RN - 07/19/2018 8:37 AM CDT Home health staff is calling because since she had her eye surgery at [facility] [place], she has not been keepingher appointments for home health care, so they have not been able to set up her medications. -she is calling this as an FYI to PCP, to let him know that if she doesn't start answering the door,they will have to discontinue services -she is sounding frustrated because patient doesn't call them ahead of time to cancel -she says her platform material handling supervisor tried to do a weekend visit this past weekend. documented in this encounter Plan of Treatment Upcoming Encounters Date Type Specialty Care Team Description 01/18/2022 Telemedicine Family Medicine Sebastian Griffiths MD [address] [place], [place] [phone] (Wo rk) documented as of this encounter Visit Diagnoses Not on filedocumented in this encounter Care Teams Senior Compensation Consultant Relationship Specialty Start Date End Date Sebastian Griffiths MD PCP - General 10/24/[address] [place] [phone] documented as of this encounter
--- OUTSIDE RECORDS SUMMARY | 2021-12-09 21:33 | XMS_ITS | Encounter Summary ---
:[address] [facility] Address [address] [place] [address] Care Team Providers Name Role Phone Sebastian Griffiths MD Primary Care Provider Reason for Referral Consultation (Routine) - Closed Specialty Diagnoses / Procedures Referred By Contact Refer red To Contact Physical Therapy / Diagnoses Iliotibial band syndrome of left side History of arthroplasty of left knee [facility] MD [address] [place] [address] Referral ID Status Reason Start Date Expiration Date Visits V isits Requested Authorized [id number] Closed Specialty 07/10/2018 03/19/2019 99 99 Services Required Scheduling Instructions Rx at [facility] PT 10.5 months after left TKA. Persistent p ain, dianne lat knee. Eval consistent with IT band syndrome. Labs minimally elevated. Rx: try iontophoresis with dexamethasone 2x/week. After 4 sessions, if no change, may discontinue. If she is improving, may ad d additional 2-3 applications. Instruct pt in use of heat/ice for this as well and remind her of quad strengthening program (without wts) Reason for Visit Reason Comments Knee Pain Left knee recheck Encounter Details Date Type Department Care Team Description 07/10/2018 Office Visit [facility] John Stanley b and syndrome of left side (Primary Dx); Orthopedics MD Mayte History of arthroplasty of l eft knee; [address] [facility] Chronic knee pain after tota [place] [address] Social History Tobacco Use Types [...] do you attend yazidi or Never 2020 congregation services? Do you [...] documented as of this encounter Progress Notes John Stanley MD - 07/10/2018 1:20 PM CDT Estab Patient Visit Subjective Patient ID: Rena Fan is a 68 y.o. female. Chief Complaint Patient presents with ??? Knee Pain Left knee recheck History: The patient returns for evaluation of her left knee. She is approximately 10 months following her knee replacement there. I last saw her in November 2017. She still complains of discomfort inthe lateral aspect of the left knee. This is aggravated by weightbearing activity but is also constant. She states the pain on the left knee is different than the pain she had postoperatively on the right, and that it feels like there is something loose. X-rays were obtained by Dr. Griffiths, with a reading that may have indicated some evidence of loosening, and he apparently told her that. She uses a walker on a regular basis. She admits that she is not walking as much as she did before. She is fearful that she is having trouble with the knee. Her symptoms and history are very comparableto what she had when she recovered from her right knee. That recovery took almost a year. The following portions of the patient's chart were reviewed in this encounter and updated as appropriate: Allergies Meds Problems Ortho Exam. On examination the patient is still demonstrates lethargy in general. She does however answer questions very well. She gets out of her chair very slowly with her hands. Her gait with a walker is steady but slow. Her knee alignment looks fine. She has 0-115 degrees of flexion on the right compared to 0-100 degrees on the left. She has pain when she gets to 95 degrees and the pain is well localized to the lateral aspect of the condyle. There is no joint line tenderness. No tenderness over the proximal tibia. Most of her tenderness is directly over the lateral epicondyle which is more pronounced with range of motion. This does not occur when palpation is placed above or below this level. She has no tenderness over Gurdie's tubercle. The knee itself is stable. Xray review: X-rays taken by Dr. Griffiths the quite normal for total knee at this point. No evidence of any loosening or soft tissue calcification. Knee alignment looks normal. No change from previous x-rays. LABORATORY: Recent laboratory studies were done. In May 24, 2018 her sedimentation rate was 29, C-reactive protein was just about 11, and her white blood count was just 11,000 without a shift. The sedrate and C-reactive protein are not indicative of significant inflammation and certainly not any evidence of infection. ASSESSMENT: This patient has a history of osteoarthritis of the left knee. Left total knee arthroplasty done 10 months ago. She has a history of chronic pain concerns. The concerns that she demonstrates an comments about relative to her left knee or not much different than what she had on her right knee when that was replaced. I see no evidence of loosening of her left knee. Her main problem is iliotibial band syndrome. PLAN: I attempted to reassure her that the knee is stable and there is no evidence of loosening. Also no evidence of infection. Referral was made to physical therapy to try iontophoresis. This can be done twice a week. She is having no response after 2 weeks (4 sessions) then this can be discontinued and the use of heat and icemay be considered. Due to the underlying total knee, she is not a candidate for an injection. If sheis getting early response to the 4 sessions of iontophoresis, then another 2 or 3 can be added if indicated. We discussed the use of a scooter. As long as she does not use it indoors and can occasionally go with a walker outside, I think it is reasonable idea. More of her medical issues would warrant the use of a scooter then her knee would. I think Dr. Griffiths can certainly prescribe a scooter for her, as from an orthopedic standpoint I think she qualify. Certainly from her general condition, diabetes, and lethargy, a scooter would be warranted. She asked me if I could give her any pain medication. I informed her that she need to work throughDr. Griffiths who is in charge of her pain management. After denying her any medication, she thanked mefor my care and wished me good luck and my fpc, and then left the office. Referral to physical therapy will be made and she will be contacted regarding this. Follow-up in 6-8 weeks with either Mr. Kelly, or 1 of the other orthopedic surgeons relative to her response to the therapy on her leftknee. (This dictation is transcribed using voice recognition software. The numerical measurements noted inthe dictation are verified and corrected as needed during the dope pourer. There may be other sections of the documentation that still contain grammatical errors that went unnoticed.) FOLLOW-UP: Sebastian Griffiths MD - 07/10/2018 1:20 PM CDT Reviewed documented in this encounter Plan of Treatment Upcoming Encounters Date Type Specialty Care Team Description 01/18/2022 Telemedicine Family Medicine Sebastian Griffiths MD [address] [place], [place] [address] (Wo rk) Scheduled Referrals Name Type Priority [facility] Diagnoses [facility] Outpatient Referral Routine Iliotibial ban d Ordered: to Physical Therapy syndrome of left side 07/10/2018 History of arthroplasty of left knee documented as of this encounter Visit Diagnoses Diagnosis Iliotibial band syndrome of left side - Primary History of arthroplasty of left knee Chronic knee pain after total replacemen t of left knee joint documented in this encounter Care Teams Check Viewer Relationship Specialty Start Date End Date Sebastian Griffiths MD PCP - General 10/24/17 [address] [place], [place] [phone] documented as of this encounter
--- OUTSIDE RECORDS SUMMARY | 2021-12-09 21:33 | XMS_ITS | Encounter Summary ---
:1950 Author Organization [facility] Address [address] [place] [address] Care Team Providers Name Role Phone Sebastian Griffiths MD Primary Care Provider Reason for Referral Consultation (Routine) - Closed Specialty Diagnoses / Procedures Referred By Contact Refer red To Contact Diagnoses Primary open angle glaucoma (POAG) of both eyes, severe stage John Braun MD [place] - [facility] [address] [facility] [place] [address] [place] [address] [place] [address] Phone: Fax: Referral ID Status Reason Start Date Expiration Date Visits Requ ested Visits Authorized [id number] Closed 06/14/2018 06/15/2019 1 1 Reason for Visit Reason Comments Diabetic Eye Exam Encounter Details Date Type Department Care Team Description 06/14/2018 Office Visit Ophthalmology John Braun, Primary open angle glaucoma (POAG) of both eyes, severe stage (Primary Dx); [address] [facility] Presbyopia; [place] [address] Glaucoma, unspecified glauco ma type, unspecified laterality [phone] Social History Tobacco Use Types Packs/Day Years [...] do you attend presybeterian or Never 2020 mosque services? Do you [...] as of this encounter Patient Instructions Patient InstructionsJohn Braun MD - 06/14/2018 9:45 AM CDT Images from the original note were not included. Consultation will be arranged with the direct support specialist at [place] for further evaluation and treatment. Continue to use both drops as directed. The prescriptions were refilled as requested. Patient Education Glaucoma Glaucoma is a condition that is caused by high pressure inside the eye. The pressure in the eye is raised because fluid (aqueous humor) within the eye cannot get out through the normal drainage system.The increased pressure can cause damage to the nerves of the eye, and that can result in loss of vision. It is important to diagnose glaucoma early before damage occurs. Early treatment can often prevent vision loss. There are two main types of glaucoma: ?? Open-angle glaucoma. This is a chronic condition that causes the pressure inside the eye to rise slowly. This is the most common type of glaucoma, and it often causes no symptoms until later in the disease. ?? Acute angle-closure glaucoma. With this type, the pressure inside the eye rises suddenly to a very high level. This causes severe pain and requires treatment right away. What are the causes? In many cases, the cause of this condition is not known. Glaucoma can sometimes result from other diseases, such as infection, cataracts, or tumors. What increases the risk? This condition is more likely to develop in people who: ?? Are older than 40 years of age. ?? Are of -[place] descent. ?? Have high blood pressure or diabetes. ?? Have a family history of glaucoma. ?? Have a previous eye injury or eye surgery. ?? Are farsighted. ?? Use certain medicines that increase pressure in the eyes or cause the pupils to widen (dilate). What are the signs or symptoms? In many cases, open-angle glaucoma causes no symptoms early on. If it is not treated, the condition will get worse and may cause a loss of side vision (peripheral vision). This can advance to tunnel vision, which means that you are able to see straight ahead but you have a loss of peripheral vision inall directions. Eventually, total loss of vision can occur. Symptoms of acute angle-closure glaucoma develop suddenly and may include: ?? Clouded vision. ?? Severe pain in your affected eye. ?? Severe headache in the area around your eye. ?? Feeling nauseous. ?? Vomiting. How is this diagnosed? Glaucoma is diagnosed through an eye exam by an eye clinic manager (ordnance engineering technician). This specialist will perform a test to measure the pressure in your eye (tonometry). Eye tests to check your vision-- especially your peripheral vision--will be done. The ordnance engineering technician will also use various instrumentsto look inside your eye and check for damage to the nerves. Because glaucoma often does not cause symptoms until late in the disease, it is often found during aroutine eye exam. It is important to have your eyes checked regularly. How is this treated? Early treatment is important to prevent vision loss. Treatment will focus on lowering the pressure in your eyes. This usually involves using medicines in the form of eye drops. The type of medicine will depend on how bad the disease is and the degree of damage. Laser treatments or other types of surgery may be needed in some cases. Acute angle-closure glaucoma requires emergency treatment to help prevent vision loss. This treatment may involve eye drops and medicines that are given in pill form or through an IV tube. Surgery is usually done on both eyes right away. Follow these instructions at home: ?? Take medicines only as directed by your health care provider. Use your eye drops exactly as instructed.??It is likely that you will need to use this medicine for the rest of your life. ?? Get regular exercise, but talk with your health care provider about which types of exercise are safe for you. You may need to avoid yoga or other types of exercise that may involve standing on your head. ?? Keep all follow-up visits as directed by your health care provider. This is important. Contact a health care provider if: ?? You have new or worsening symptoms. Get help right away if: ?? You have severe pain in your affected eye. ?? You have problems with your vision. ?? You have a bad headache in the area around your eye. ?? You develop nausea and vomiting. ?? You have the same or similar symptoms in your other eye. This information is not intended to replace advice given to you by your health care provider. Make sure you discuss any questions you have with your health care provider. Document Released: 03/06/2006 Document Revised: 08/11/2016 Document Reviewed: 12/16/2014 [employer] Interactive Patient Education ?? 2018 [employer]. documented in this encounter Progress Notes John Braun MD - 06/14/2018 9:45 AM CDT Comprehensive Eye Exam New Patient SUBJECTIVE: New patient. She was last here in 2012. She says that her last eye examination was 3 years ago in [place]. Glasses were lost about 1 year ago. She denied visual problems to me but mention to the wind energy technician that she feels as if she is losing her vision. She does not have her drops with her. By her description, the medications are likely dorzolamide/timolol used in both eyes twice daily and latanoprostused in both eyes in the evening. The information that is in the record here seems to confirm this. She says that she is reliable with drops. Diabetes is reported as controlled. OBJECTIVE: Base Eye Exam Visual Acuity (Snellen - Linear) Right Left Dist sc 20/70 -1 20/30 -2 Dist ph sc 20/40 -2 Near sc J7 J5 Tonometry (Frnaz, 9:31 AM) Right Left Pressure 26 20 Tonometry #2 (Applanation, 10:23 AM) Right Left Pressure 37 28 Tonometry Comments Second reading by RG with pupils dilated. Pupils React Right Sluggish Left Sluggish Visual Borjas Left Right Restrictions Total superior temporal deficiency Total superior nasal, inferior nasal deficiencies; Partial outer superior temporal, inferior temporal deficiencies Extraocular Movement Right Left Full Full Cover and uncover: full Dilation Both eyes: 1.0% Mydriacyl, 2.5% Geoffrey Synephrine @ 9:31 AM Refraction Manifest Refraction Sphere Cylinder Lewis Dist VA Add Near VA Right -0.50 +1.25 180 20/40-2 +2.50 20/20- Left -0.50 +1.50 005 20/25-1 +2.50 20/20- External: Globes clear. Motility: Full. Slit Lamp: Cornea -clear. AC -moderate depth and quiet. Iris -normal. Lens -mild to moderate cortical haziness with minimal NS. Fundus: Discs -Right, total cup. Left cup 0.95. Vessels -arteriolar attenuation and AV crossing changes Macula -intact. Periphery -intact. Intraocular pressure: Right 37, left 28 at 10:23 AM, measured after dilating. ASSESSMENT: 1. Primary open-angle [id number] stage-uncontrolled. She claims reliability with drops but has been unreliable with follow-up. 2. No diabetic retinopathy-type II controlled. 3. Presbyopia-bilateral. PLAN: Findings reviewed in full with the patient. I discussed the likelihood of loss of vision without additional treatment, which could include glaucoma surgery. Consultation will be arranged with the direct support specialist at [facility] for further evaluation and treatment. [place] was contacted, and they will contact her concerning appointment details. documented in this encounter Plan of Treatment Upcoming Encounters Date Type Specialty Care Team Description 01/18/2022 Telemedicine Family Medicine Sebastian Griffiths MD [address] [place] [phone] (Wo rk) Scheduled Referrals Name Type Priority Associated Diagnoses Order S chedule AMB External Outpatient Referral Routine Primary open angle Or dered: Referral glaucoma (POAG) of 9 both eyes, severe stage documented as of this encounter Visit Diagnoses Diagnosis Primary open angle glaucoma (POAG) of amelia th eyes, severe stage - Primary Presbyopia Glaucoma, unspecified glaucoma type, uns pecified laterality documented in this encounter Care Teams Underwriter Relationship Specialty Start Date End Date Sebastian Griffiths MD PCP - General 10/24/[address] [place] [phone] documented as of this encounter
--- OUTSIDE RECORDS SUMMARY | 2021-12-09 21:33 | XMS_ITS | Encounter Summary ---
:1950 Author Organization [facility] Address [address] [place] [address] Care Team Providers Name Role Phone Sebastian Griffiths MD Primary Care Provider Reason for Visit Reason Comments Follow-up back pain, the pt sleeps whe n not stimulated. Encounter Details Date Type Department Care Team Description 08/14/2018 Office Visit [facility] Sebastian Griffiths, Chronic pain syndrome (Prima ry Dx); [address] [facility] Lumbar degenerative disc disease; [place] [address] Generalized anxiety disorder [phone] [place] [address] Social History Tobacco Use Types [...] Sign Reading Time Taken Comments Blood Pressure 112/66 08/14/2018 11:24 AM CDT Pulse 110 08/14/2018 11:24 AM CDT Temperature 36.5 ??C (97.7 ??F) 08/14/2018 11:24 AM CDT Respiratory Rate 12 08/14/2018 11:24 AM CDT Oxygen Saturation 95% 08/14/2018 11:24 AM CDT Inhaled Oxygen Concentration - - Weight 99.3 kg (218 lb 14.7 oz) 08/14/2018 11:24 AM CDT Height 165.1 cm (5' 5) 08/14/2018 11:24 AM CDT Body Mass Index 36.43 08/14/2018 11:24 AM CDT documented in this encounter Patient Instructions Patient InstructionsSebastian Griffiths MD - 08/14/2018 11:00 AM CDT You should hear from [employer] soon about the scooter. documented in this encounter Progress Notes Sebastian Griffiths MD - 08/14/2018 11:00 AM CDT Estab Patient Visit Subjective Patient ID: Rena Fan is a 68 y.o. female. Chief Complaint Patient presents with ??? Follow-up back pain, the pt sleeps when not stimulated. HPI Patient presents for chronic lumbar disc disease, and bilateral knee pain. She is status post the arthroplasties. She ambulates with the assistance of a walker. She did have a follow-up with her orthopedist who recommended that she inquire about a scooter. She states it would help her be more mobile. She ambulates quite slow due to pain. Patient inquires about opioid management but she has struggled with taking those appropriately in the past and I am not able to prescribe them to her at this time. She does not tolerate NSAIDs very well due to GI effects. She has tried Celebrex in the past also. The following portions of the patient's chart were reviewed in this encounter and updated as appropriate: Tobacco Allergies Meds Problems Review of Systems She does states she had a recent fall while doing laundry at home. This occurred yesterday and she states she fell on her left side. No head injury, no loss of consciousness. Denies any new discomforts. Objective Visit Vitals BP 112/66 Pulse 110 Temp 36.5 ??C (97.7 ??F) (Temporal) Resp 12 Ht 1.651 m (5' 5) Wt 99.3 kg (218 lb 14.7 oz) SpO2 95% BMI 36.43 kg/m?? OB Status Postmenopausal Smoking Status Current Every Day Smoker BSA 2.13 m?? Physical Exam General: Female in no acute distress examined in the exam chair. Answers questions appropriately butslow. Constantly inquires about opioid medication. Gait with the assistance of a walker she has a slow measured gait. Skin: Examined on the side she fell. No bruising, no swelling, or evidence of any other injury at this time. We did review the orthopedist note today in the recent x-rays of her lumbar spine and knees. There was some question about loosening of the prosthetic joint but the impression of the orthopedic physician was that it was normal. Assessment/Plan Diagnoses and all orders for this visit: Chronic pain syndrome Lumbar degenerative disc disease - Mobility Devices Generalized anxiety disorder - LORazepam (ATIVAN) 1 MG tablet; TAKE 1 TABLET BY MOUTH THREE TIMES A DAY DME order will be sent to [employer] for the scooter which I think would be helpful to her. No medication changes at this time. I did refill her lorazepam, same dose. Recheck in 3 months. Also noted that her recent diabetic labs were excellent. documented in this encounter Plan of Treatment Upcoming Encounters Date Type Specialty Care Team Description 01/18/2022 Telemedicine Family Medicine Sebastian Griffiths MD [address] [place] [phone] (Wo rk) documented as of this encounter Visit Diagnoses Diagnosis Chronic pain syndrome - Primary Lumbar degenerative disc disease Generalized anxiety disorder documented in this encounter Care Teams Captain/Check Airman Relationship Specialty Start Date End Date Sebastian Griffiths MD PCP - General 10/24/[address] [place] [phone] documented as of this encounter
--- OUTSIDE RECORDS SUMMARY | 2021-12-09 21:34 | XMS_ITS | Encounter Summary ---
:1950 Author Organization [facility] Address [address] [place] [address] Care Team Providers Name Role Phone Sebastian Griffiths MD Primary Care Provider Reason for Visit Reason Onset Date Comments Med Refill 04/25/2018 Encounter Details Date Type Department Care Team Description 04/25/2018 Refill SE Family Med Sebastian Griffiths MD [address] [facility] [address] [place] [address] [place] [address] [phone] (Wo rk) Social History Tobacco Use Types [...] or relatives? How often do you attend buddhist or Never 2020 temple services? Do you belong to any clubs or No 05/18/2020 organizations such as buddhist groups, unions, fraternal or athletic groups, or [...] this encounter Miscellaneous Notes Telephone Encounter - Mabel Shah LPN - 04/25/2018 9:33 AM CST error ICE NURSE documented in this encounter Plan of Treatment Upcoming Encounters Date Type Specialty Care Team Description 01/18/2022 Telemedicine Family Medicine Sebastian Griffiths MD [address] [place], [place] [address] (Wo rk) documented as of this encounter Visit Diagnoses Not on filedocumented in this encounter Care Teams Tipple Oiler Relationship Specialty Start Date End Date Sebastian Griffiths MD PCP - General 10/24/17 [address] [place], [place] [phone] documented as of this encounter
--- OUTSIDE RECORDS SUMMARY | 2021-12-09 21:34 | XMS_ITS | Encounter Summary ---
:1950 Author Organization [facility] Address [address] [place] [address] Care Team Providers Name Role Phone Sebastian Griffiths MD Primary Care Provider Reason for Visit Reason Comments Med Refill Encounter Details Date Type Department Care Team Description 01/16/2018 Refill SE Family Med Sebastian Griffiths, Osteoarthritis of both [address] [facility] knees, [place] [address] osteoarthritis type [phone] (Primary Dx) [place] [address] Social History Tobacco Use Types Packs/Day Years Used Date Never Assessed Alcohol Habits Answer Date Recorded How often [...] do you attend pentecostalism or Never 2020 presybeterian services? Do you [...] Telemedicine Family Medicine Sebastian Griffiths MD [address] [place] [address] (Wo rk) documented as of this encounter Visit Diagnoses Diagnosis Osteoarthritis of both knees, unspecifie d osteoarthritis type - Primary documented in this encounter Additional Health Concerns Infection Onset Date Last Indicated Resolved Time COVID-19 Rule Out 10/27/2019 10/27/201910/2610/27/2019 11: 08 PM CDT documented as of this encounter Care Teams Hand Coper Relationship Specialty Start Date End Date Sebastian Griffiths MD PCP - General 10/24/[address] [place] [id number] documented as of this encounter
--- OUTSIDE RECORDS SUMMARY | 2021-12-09 21:34 | XMS_ITS | Encounter Summary ---
:1950 Author Organization [facility] Address [address] [place] [address] Care Team Providers Name Role Phone Sebastian Griffiths MD Primary Care Provider Reason for Visit Reason Comments Med Refill Encounter Details Date Type Department Care Team Description 04/26/2018 Refill SE Family Med Sebastian Griffiths MD Major depressive [address] [facility] [address] disorder, [place] [address] [place] [address] episode, moderate (HCC) [phone] (Wo rk) (Primary Dx) Social History Tobacco [...] do you attend rastafari or Never 2020 shinto services? Do you [...] Telephone Encounter - Mabel Shah LPN - 04/27/2018 1:20 PM CST Cymbalta 60 mg # 60 + 5 refills 10/26/17 Last visit Med not reviewed in the last year Next visit 06/26/18 IC PATTERN GRADER documented in this encounter Plan of Treatment Upcoming Encounters Date Type Specialty Care Team Description 01/18/2022 Telemedicine Family Medicine Sebastian Griffiths MD [address] [place], [place] [address] (Wo rk) documented as of this encounter Visit Diagnoses Diagnosis Major depressive disorder, recurrent epi sode, moderate ([facility]) - Primary Major depressive disorder, recurrent epi sode, moderate documented in this encounter Care Teams Printing Sign Machine Operator Relationship Specialty Start Date End Date Sebastian Griffiths MD PCP - General 10/24/17 [address] [place], [place] [phone] documented as of this encounter
--- OUTSIDE RECORDS SUMMARY | 2021-12-09 21:34 | XMS_ITS | Encounter Summary ---
:1950 Author Organization [facility] Address [address] [place] [address] Care Team Providers Name Role Phone Sebastian Griffiths MD Primary Care Provider Encounter Details Date Type Department Care Team Description 03/09/2018 Orders Only [facility] John Stanley, Aftercare following Orthopedics left knee joint [address] [facility] [place] [address] (Primary Dx) [phone] Social History Tobacco Use Types Packs/Day Years [...] do you attend confucianism or Never 2020 catholic services? Do you [...] 01/18/2022 Telemedicine Family Medicine Sebastian Griffiths MD [address] [place] [address] (Wo rk) documented as of this encounter Procedures Procedure Name Priority Date/Time Associated Diagnosis Comme nts XR KNEE 3 VIEWS Today 03/09/2018 10:35 AM Aftercare followin g Results for this LEFT VP ANCILLARY left knee joint procedure ar e in replacement surgery the resu lts section. documented in this encounter Results X-ray Knee 3 Views Left (03/09/2018 10:35 AM VP ANCILLARY) Anatomical Region Laterality Modality Lower Extremities, Knee Left Radiographic Tana ging Specimen (Source) Anatomical Collection Method Collection Time Re ceived Time Location / / Volume Laterality 03/09/2018 10:35 AM VP ANCILLARY Impressions 03/09/2018 10:40 AM VP ANCILLARY IMPRESSION: KNEE LEFT (3 VIEWS) There is evidence of prior bilateral tot al knee arthroplasties with no lucency around the hardware to suggest l oosening. No fracture or dislocation. Narrative 03/09/2018 10:40 AM VP ANCILLARY INDICATION: Knee replaced, asymptomatic, follow up COMPARISON: Bilateral knee radiographs October 13, 2017 Procedure Note Shima Hsu MD - 03/09/2018 INDICATION: Knee replaced, asymptomatic, follow up COMPARISON: Bilateral knee radiographs October 13, 2017 IMPRESSION: KNEE LEFT (3 VIEWS) There is evidence of prior bilateral tot al knee arthroplasties with no lucency around the hardware to suggest l oosening. No fracture or dislocation. John Stanley MD IMG XR PROCEDURES documented in this encounter Visit Diagnoses Diagnosis Aftercare following left knee joint repl acement surgery - Primary documented in this encounter Care Teams Tour Operator Relationship Specialty Start Date End Date Sebastian Griffiths MD PCP - General 10/24/[address] [place] [phone] documented as of this encounter
--- OUTSIDE RECORDS SUMMARY | 2021-12-09 21:34 | XMS_ITS | Encounter Summary ---
:1950 Author Organization [facility] Address [address] [place] [address] Care Team Providers Name Role Phone Sebastian Griffiths MD Primary Care Provider Reason for Visit Reason Onset Date Comments Med Refill 04/25/2018 Encounter Details Date Type Department Care Team Description 04/25/2018 Telephone SE [facility] Med Sebastian Griffiths MD Med Refill [address] [facility] [address] [place] [address] [place] [address] [phone] (Wo rk) Social History Tobacco Use Types [...] do you attend gnosticism or Never 2020 sikhism services? Do you [...] this encounter Miscellaneous Notes Telephone Encounter - Ariane Larry LPN - 04/27/2018 11:57 AM CST Patient was notified. L EXPEDITER Telephone Encounter - Sebastian Griffiths MD - 04/26/2018 11:40 PM CST Rx for lisinopril/HCTZ 10/12.5 sent in. L EXPEDITER Telephone Encounter - Sosa Garcia LPN - 04/25/2018 10:33 AM CST Fax received from pharmacy noting that per home health nurse, pt should be on Lisinopril 10mg and HCTZ 25mg but am unable to find that dose and add to pt's med list other than as an inpatient dose and could not be renewed. Pt was recently seen and had no clue what meds she was really taking but is listed on her [place] discharge after her pneumonia as Lisinopril 10mg/HCTZ 25mg And looks like we have been prescribing 10-12.5mg most recently dispensed by pharmacy on 03/23/2018. Please advise L EXPEDITER documented in this encounter Plan of Treatment Upcoming Encounters Date Type Specialty Care Team Description 01/18/2022 Telemedicine Family Medicine Sebastian Griffiths MD [address] [place], [place] [address] (Wo rk) documented as of this encounter Visit Diagnoses Diagnosis Hypertension, essential, benign - Primar y Essential hypertension, benign documented in this encounter Care Teams Information Technology Professor Relationship Specialty Start Date End Date Sebastian Griffiths MD PCP - General 10/24/17 [address] [place], [place] [phone] documented as of this encounter
--- OUTSIDE RECORDS SUMMARY | 2021-12-09 21:34 | XMS_ITS | Encounter Summary ---
:1950 Author Organization [facility] Address [address] [place] [address] Care Team Providers Name Role Phone Sebastian Griffiths MD Primary Care Provider Reason for Visit Reason Onset Date Comments Medications 03/01/2018 Encounter Details Date Type Department Care Team Description 03/01/2018 Telephone SE [facility] Sebastian Griffiths MD Medications [address] [facility] [address] [place] [address] [place] [address] [phone] (Wo rk) Social History Tobacco Use Types [...] do you attend episcopal or Never 2020 tenriism services? Do you [...] encounter Miscellaneous Notes Telephone Encounter - Tania Carnes - 03/08/2018 8:53 AM CST Pt has been informed of message from provider, pt states she is using the losartan and not the lisinopril. UCE LABORER Telephone Encounter - Ariane Larry LPN - 03/06/2018 11:53 AM CST Left message for patient to call back to inform of the provider's message. UCE LABORER Telephone Encounter - Sebastian Griffiths MD - 03/03/2018 3:56 PM CST Noted, thanks. It appears that she should be on losartan and not lisinopril. She can resume the senna, that is fine. UCE LABORER Telephone Encounter - Jagdish Jasmine MA - 03/01/2018 10:17 AM CST Isa called to verify some of the patient's medications. Most questions were answered however she would like to verify that patient is still to be on Hydrochlorothiazide-Lisinopril (shows D/C on 01/25/18) as patient is still in need of a blood pressure medication and is unable to take Lasix. Isa also advised that she took it upon her self to re-start patient's Senna which patient was advised to stop on 02/01/18 and she is asking if it was ok to do this? UCE LABORER documented in this encounter Plan of Treatment Upcoming Encounters Date Type Specialty Care Team Description 01/18/2022 Telemedicine Family Medicine Sebastian Griffiths MD [address] [place], [place] [address] (Wo rk) documented as of this encounter Visit Diagnoses Not on filedocumented in this encounter Care Teams Lime Hide Inspector Relationship Specialty Start Date End Date Sebastian Griffiths MD PCP - General 10/24/17 [address] [place], [place] [phone] documented as of this encounter
--- OUTSIDE RECORDS SUMMARY | 2021-12-09 21:34 | XMS_ITS | Encounter Summary ---
:1950 Author Organization [facility] Address [address] [place] [address] Care Team Providers Name Role Phone Unavailable Primary Care Provider Unavailable Encounter Details Date Type Department Care Team Description 06/08/2017 Hospital Encounter [facility] Lizeth, John Bonilla y osteoarthritis of left knee; Radiology MD Mayte Other meniscus derangements, posterior horn of medial meniscus, left knee; [address] [facility] Chondromalacia patellae [place] [address] Social History Tobacco Use Types Packs/Day Years [...] do you attend spiritism or Never 2020 scientology services? Do you [...] Sig Dispensed Refills Start Date End Date Misc. Devices glucometer strips See 0 10/29/2015 (RECONSTITUBE) mis Instructions, testing strips-please fill brand covered by insurance., 100 each, 5 Refill(s) Misc. Devices flex pen needles See 0 10/08/2015 (RECONSTITUBE) misc Instructions, flex pen needles, 100 each, 5 Refill(s) Misc. Devices lancet See 0 10/08/2015 (RECONSTITUBE) misc Instructions, lancets, 100 each, 5 Refill(s) Misc. Devices glucometer See 0 10/08/2015 (RECONSTITUBE) misc Instructions, glucose monitor, 1 each, 0 Refill(s) albuterol HFA (VENTOLIN Inhale if needed 0 201608/02/2018 HFA) 108 (90 Base) MCG/ACT inhaler amLODIPine (NORVASC) 5 Take 5 mg by mouth 1 0 03/16/2018 MG tablet (one) time each day in the morning diclofenac (VOLTAREN) 1 0 05/15/2017 0 03/27/2018 % topical gel dorzolamide-timolol Administer 1 drop 0 7 06/14/2018 (COSOPT) 22.3-6.8 MG/ML into both eyes 2 ophthalmic solution (two) times a day fluticasone HFA (FLOVENT Inhale 2 puffs 2 0 07/1906/26/2018 HFA) 110 MCG/ACT inhaler (two) times a day furosemide (LASIX) 40 MG 0 03/03/2016 02/01/2018 tablet insulin glargine Inject 20 Units under 0 03/08/20 17 04/05/2018 (JOSE HALE) 100 the skin 1 (one) time UNIT/ML injection each day in the evening At 5pm ipratropium-albuterol 0 03/07/2017 (DUO-NEB) 0.5-2.5 mg/3 mL nebulizer solution latanoprost (XALATAN) 0 03/03/2016 0.005 % ophthalmic solution lidocaine (XYLOCAINE) 5 Apply topically Apply 0 1 05/08/2016 12/03/2020 % ointment small bead and rub in skin 2-4 times a day over painful back area. Wash off hands. methocarbamol (ROBAXIN) Take 500 mg by mouth 0 03/27/2018 500 MG tablet 2 (two) times a day multivitamin with Take 1 tablet by 0 03/07/2017 1 04/03/2017 minerals mouth 1 (one) time (CENTRUM/CERTAVIT) 9-200 each day mg-mcg tablet (HALF TABLET) pantoprazole (PROTONIX) Take 40 mg by mouth 1 0 1 05/08/2016 04/05/2018 40 MG EC tablet (one) time each day before breakfast risperiDONE (RisperDAL) Take 2 mg by mouth 2 0 05/10/2018 2 MG tablet (two) times a day documented as of this encounter Plan of Treatment Upcoming Encounters Date Type Specialty Care Team Description 01/18/2022 Telemedicine Family Medicine Sebastian Griffiths MD [address] [place] [phone] (Wo rk) documented as of this encounter Procedures Procedure Name Priority Date/Time Associated Diagnosis Comme nts MR KNEE LEFT WO IV Routine 06/08/2017 5:33 PM Res ults for this CONTRAST CDT procedure are i n the results section. documented in this encounter Results MRI knee left wo IV contrast (06/08/2017 5:33 PM CDT) Anatomical Region Laterality Modality Lower Extremities Magnetic Resonance Specimen (Source) Anatomical Collection Method Collection Time Re ceived Time Location / / Volume Laterality 06/08/2017 5:33 PM CDT Addenda Addendum by Shima Hsu on 06/12/2017 5:3 7 PM CDT Addendum Begins A secondary interpretation has been requ ested. ??Comparison is made to three-phase bone scan bilateral knees [facility] 2017. Findings: At the anterior superior aspect of the l ateral femoral condyle, there are multifocal areas of full-thickness c artilage loss with an associated moderate to large amount of h igh T2 signal subchondral marrow edema as well as multiple subchon dral cysts. ??These findings correspond to intense increased radiotra cer uptake in the left lateral femoral condyle on the compariso n bone scan. ??Multifocal areas of moderate partial-thickness cart ilage loss with moderate high T2 signal subchondral marrow edema and m ultiple subchondral cysts are also seen in the lateral patellar facet. ??Mild chondral thinning is seen posteriorly at the medial femoral c ondyle. The ACL, MCL, lateral collateral ligamen t complex, patellar retinacula, quadriceps tendon, and razo lar tendon are intact. ??There is mild diffuse thickening of the PCL wi th no distinct ligament defect. There is a small effusion. ??There is a 12 mm Guzman's cyst. ??There is subtle oblique linear intermediate T2 si gnal at the posterior horn of the medial meniscus, which extends to th e inferior surface, compatible with tear. ??No lateral menis geovanna tear. ??No displaced meniscal tissue. ??There is a 7 mm circu mscribed oval area of low T1 and high T2 signal laterally in the dist al metaphysis of the mid to anterior femur, compatible with enchondr chris. Addendum by Shima Hsu on 06/12/2017 5:3 7 PM CDT Addendum Begins A secondary interpretation has been requ ested. ??Comparison is made to three-phase bone scan bilateral knees [facility] [address]. Findings: At the anterior superior aspect of the l ateral femoral condyle, there are multifocal areas of full-thickness c artilage loss with an associated moderate to large amount of h igh T2 signal subchondral marrow edema as well as multiple subchon dral cysts. ??These findings correspond to intense increased radiotra cer uptake in the left lateral femoral condyle on the compariso n bone scan. ??Multifocal areas of moderate partial-thickness cart ilage loss with moderate high T2 signal subchondral marrow edema and m ultiple subchondral cysts are also seen in the lateral patellar facet. ??Mild chondral thinning is seen posteriorly at the medial femoral c ondyle. The ACL, MCL, lateral collateral ligamen t complex, patellar retinacula, quadriceps tendon, and razo lar tendon are intact. ??There is mild diffuse thickening of the PCL wi th no distinct ligament defect. There is a small effusion. ??There is a 12 mm Guzman's cyst. ??There is subtle oblique linear intermediate T2 si gnal at the posterior horn of the medial meniscus, which extends to th e inferior surface, compatible with tear. ??No lateral menis geovanna tear. ??No displaced meniscal tissue. ??There is a 7 mm circu mscribed oval area of low T1 and high T2 signal laterally in the dist al metaphysis of the mid to anterior femur, compatible with enchondr chris. Addendum by Shima Hsu on 06/12/2017 5:3 7 PM CDT Addendum Begins A secondary interpretation has been requ ested. ??Comparison is made to three-phase bone scan bilateral knees [facility] 2017. Findings: At the anterior superior aspect of the l ateral femoral condyle, there are multifocal areas of full-thickness c artilage loss with an associated moderate to large amount of h igh T2 signal subchondral marrow edema as well as multiple subchon dral cysts. ??These findings correspond to intense increased radiotra cer uptake in the left lateral femoral condyle on the compariso n bone scan. ??Multifocal areas of moderate partial-thickness cart ilage loss with moderate high T2 signal subchondral marrow edema and m ultiple subchondral cysts are also seen in the lateral patellar facet. ??Mild chondral thinning is seen posteriorly at the medial femoral c ondyle. The ACL, MCL, lateral collateral ligamen t complex, patellar retinacula, quadriceps tendon, and razo lar tendon are intact. ??There is mild diffuse thickening of the PCL wi th no distinct ligament defect. There is a small effusion. ??There is a 12 mm Guzman's cyst. ??There is subtle oblique linear intermediate T2 si gnal at the posterior horn of the medial meniscus, which extends to th e inferior surface, compatible with tear. ??No lateral menis geovanna tear. ??No displaced meniscal tissue. ??There is a 7 mm circu mscribed oval area of low T1 and high T2 signal laterally in the dist al metaphysis of the mid to anterior femur, compatible with enchondr chris. Impressions 06/12/2017 5:37 PM CDT Impression: 1. ??At the anterior superior aspect of the lateral femoral condyle, there are multifocal areas of full-thick ness cartilage loss with associated moderate to large amount of s ubchondral marrow edema and multiple subchondral cysts. ??This marro w edema is compatible with reactive change secondary to arthritis, however, the possibility of associated avascular necrosis cannot be excluded. ??There is associated moderate partial thickness ca rtilage loss at the lateral patellar facet. 2. ??There is an oblique inferior surfac e tear at the posterior horn of the medial meniscus. Addendum Ends IMPRESSION: 1. Severe chronic osteoarthritis lateral aspect patellofemoral compartment may be due to chronic latera l tracking. Abnormally enlarged trochlear groove to tibial tube rosity distance. 2. Mucoid degeneration and mild degenera tive marginal tearing posterior horn medial meniscus. 3. Low-grade degenerative chondromalacia medial compartment. Dictated by Cole Bazan MD @ Jun 09 201 8 11:12AM Signed by Dr. Cole Bazan @ Jun 09 2017 11:12AM Narrative 06/12/2017 5:37 PM CDT INDICATION: Acute onset of pain. Increased uptake on bone scan. COMPARISON: None provided. TECHNIQUE: Axial T2 fat sat and STIR, sagittal PD a nd STIR and coronal T1 and T2 fat-sat sequences. FINDINGS: Medial compartment: Meniscus: Mucoid degeneration and mild m arginal degenerative tearing posterior horn with indistinct margins. No internally displaced meniscal tissue. Body and anterior horn appear normal. Articular cartilage: Grade 2 irregular t hinning posterior weightbearing medial condyle and mid to outer tibial plateau. Small marginal osteophytes but no other second sudhakar degenerative findings. Medial collateral ligament: Intact. - Cruciate ligaments: ACL: Intact. PCL: Mildly enlarged low signal ligament . - Lateral compartment: Meniscus: Intact. Some mucoid degenerati on intermediate signal in the substance. Articular cartilage: No focal defect or appreciable irregularity. Small marginal osteophytes. Lateral collateral complex: Intact. - Patellofemoral compartment: Chronic appe aring full-thickness grade 4 articular cartilage loss lateral facet a nd lateral patella with prominent subchondral cysts and patchy e aashish. This extends to the central median ridge. - Extensor mechanism: Distal quadriceps te ndon and patellar tendon are intact. The tibial tuberosity to trochle ar groove distance is abnormal at nearly 3 cm. Trochlear depth appears normal. Upper normal fluid deep infrapatellar bursa. - Bones and soft tissues: Small joint effu domonique without loose body or synovitis. Tiny Guzman`s cyst. Small prob able enchondroma medial femoral metaphysis. This measures approx imately 7 mm. Procedure Note Shima Hsu - 12/10/2017Formatting of thi s note might be different from the original. INDICATION: Acute onset of pain. Increased uptake on bone scan. COMPARISON: None provided. TECHNIQUE: Axial T2 fat sat and STIR, sagittal PD a nd STIR and coronal T1 and T2 fat-sat sequences. FINDINGS: Medial compartment: Meniscus: Mucoid degeneration and mild m arginal degenerative tearing posterior horn with indistinct margins. No internally displaced meniscal tissue. Body and anterior horn appear normal. Articular cartilage: Grade 2 irregular t hinning posterior weightbearing medial condyle and mid to outer tibial plateau. Small marginal osteophytes but no other second sudhakar degenerative findings. Medial collateral ligament: Intact. - Cruciate ligaments: ACL: Intact. PCL: Mildly enlarged low signal ligament . - Lateral compartment: Meniscus: Intact. Some mucoid degenerati on intermediate signal in the substance. Articular cartilage: No focal defect or appreciable irregularity. Small marginal osteophytes. Lateral collateral complex: Intact. - Patellofemoral compartment: Chronic appe aring full-thickness grade 4 articular cartilage loss lateral facet a nd lateral patella with prominent subchondral cysts and patchy e aashish. This extends to the central median ridge. - Extensor mechanism: Distal quadriceps te ndon and patellar tendon are intact. The tibial tuberosity to trochle ar groove distance is abnormal at nearly 3 cm. Trochlear depth appears normal. Upper normal fluid deep infrapatellar bursa. - Bones and soft tissues: Small joint effu domonique without loose body or synovitis. Tiny Guzman`s cyst. Small prob able enchondroma medial femoral metaphysis. This measures approx imately 7 mm. Impression: 1. At the anterior superior aspect of th e lateral femoral condyle, there are multifocal areas of full-thick ness cartilage loss with associated moderate to large amount of s ubchondral marrow edema and multiple subchondral cysts. This marrow edema is compatible with reactive change secondary to arthritis, however, the possibility of associated avascular necrosis cannot be excluded. There is associated moderate partial thickness ca rtilage loss at the lateral patellar facet. 2. There is an oblique inferior surface tear at the posterior horn of the medial meniscus. Addendum Ends IMPRESSION: 1. Severe chronic osteoarthritis lateral aspect patellofemoral compartment may be due to chronic latera l tracking. Abnormally enlarged trochlear groove to tibial tube rosity distance. 2. Mucoid degeneration and mild degenera tive marginal tearing posterior horn medial meniscus. 3. Low-grade degenerative chondromalacia medial compartment. Dictated by Cole Bazan MD @ Jun 09 201 8 11:12AM Signed by Dr. Cole Bazan @ Jun 09 2017 11:12AM John Stanley MD IMG MRI PROCEDURES documented in this encounter Visit Diagnoses Diagnosis Primary osteoarthritis of left knee Other meniscus derangements, posterior h orn of medial meniscus, left knee Chondromalacia patellae of left knee documented in this encounter
--- OUTSIDE RECORDS SUMMARY | 2021-12-09 21:34 | XMS_ITS | Encounter Summary ---
:1950 Author Organization [facility] Address [address] [place] [address] Care Team Providers Name Role Phone Sebastian Griffiths MD Primary Care Provider Encounter Details Date Type Department Care Team Description 03/09/2018 Hospital Encounter [facility] Radiology [address] [place] [address] Social History Tobacco Use Types Packs/Day Years [...] do you attend mormon or Never 2020 pentecostalism services? Do you [...] 2 (two) times a day if needed Misc. Devices glucometer strips 0 10/29/2015 (RECONSTITUBE) [...] (one) time each day in the morning aspirin 81 MG chewable Chew 81 mg 1 (one) 0 06/2209/11/2018 tablet time each day Cetirizine HCl 10 MG Take 10 mg by mouth 0 12/03/2020 capsule 1 (one) time each day if needed diclofenac (VOLTAREN) 1 0 05/15/2017 0 03/27/2018 % topical gel dorzolamide-timolol Administer 1 drop 0 7 06/14/2018 (COSOPT) 22.3-6.8 MG/ML into both eyes 2 ophthalmic solution (two) times a day DULoxetine (CYMBALTA) 60 Take 120 mg by mouth 0 0 10/26/2017 04/26/[address] capsule 1 (one) time each day EPINEPHrine (EPIPEN 0 06/13/201704/05 2-ADDIS) 0.3 MG/0.3ML injection syringe fluticasone (FLONASE) 50 Administer 1 spray 0 11/201712/07/2018 MCG/ACT nasal spray into each nostril 2 (two) times a day fluticasone HFA (FLOVENT Inhale 2 puffs 2 0 07/1906/26/2018 HFA) 110 MCG/ACT inhaler (two) times a day gabapentin (NEURONTIN) Take 900 mg by mouth 0 09/11/2018 300 MG capsule 3 (three) times a day HM PAIN RELIEF EXTRA TAKE TWO CAPLETS BY 100 tablet 11 201708/23/2018 STRENGTH 500 MG MOUTH THREE TIMES A tabletIndications: DAY NEEDED FOR Osteoarthritis of both PAIN knees, unspecified osteoarthritis type hydrOXYzine (VISTARIL) Take 25 mg by mouth 0 05/05/201704/18/2018 25 MG capsule 3 (three) times a day if needed insulin glargine Inject 20 Units 0 03/08/2017 (BASAGLAR KWIKPEN) 100 under the skin 1 UNIT/ML injection (one) time each day in the evening At 5pm ipratropium-albuterol 0 03/07/2017 (DUO-NEB) 0.5-2.5 mg/3 mL nebulizer solution latanoprost (XALATAN) 0 03/03/2016 0.005 % ophthalmic solution lidocaine (XYLOCAINE) 5 Apply topically 0 017 12/03/2020 % ointment Apply small bead and rub in skin 2-4 times a day over painful back area. Wash off hands. LORazepam (ATIVAN) 1 MG Take 1 tablet (1 mg 90 tablet 1 09/201704/05/2018 tabletIndications: total) by mouth 3 Generalized anxiety (three) times a day disorder losartan (COZAAR) 50 MG Take 50 mg by mouth 0 06/26/2018 tablet 1 (one) time each day in the morning methocarbamol (ROBAXIN) Take 500 mg by mouth 0 03/27/2018 500 MG tablet 2 (two) times a day multivitamin (THERAGRAN) Take 1 tablet by 0 03/23/2018 tablet mouth 1 (one) time each day Oxymetazoline HCl (NASAL 0 06/13/2017 10/22/2019 SPRAY NA) pantoprazole (PROTONIX) Take 40 mg by mouth 0 04/05/2018 40 MG EC tablet 1 (one) time each day before breakfast risperiDONE (RisperDAL) Take 2 mg by mouth 2 0 05/10/2018 2 MG tablet (two) times a day SITagliptin (JANUVIA) Take 100 mg by mouth 0 05/17/2018 100 MG tablet 1 (one) time each day documented as of this encounter Plan of Treatment Upcoming Encounters Date Type Specialty Care Team Description 01/18/2022 Telemedicine Family Medicine Sebastian Griffiths MD [address] [place] [address] 904 (Wo rk) documented as of this encounter Procedures Procedure Name Priority Date/Time Associated Diagnosis Comme nts XR KNEE 3 VIEWS Today 03/09/2018 10:35 AM Aftercare followin g Results for this LEFT SAFETY COUNSELOR left knee joint procedure ar e in replacement surgery the resu lts section. documented in this encounter Results X-ray Knee 3 Views Left (03/09/2018 10:35 AM SAFETY COUNSELOR) Anatomical Region Laterality Modality Lower Extremities, Knee Left Radiographic Tana ging Specimen (Source) Anatomical Collection Method Collection Time Re ceived Time Location / / Volume Laterality 03/09/2018 10:35 AM SAFETY COUNSELOR Impressions 03/09/2018 10:40 AM SAFETY COUNSELOR IMPRESSION: KNEE LEFT (3 VIEWS) There is evidence of prior bilateral tot al knee arthroplasties with no lucency around the hardware to suggest l oosening. No fracture or dislocation. Narrative 03/09/2018 10:40 AM SAFETY COUNSELOR INDICATION: Knee replaced, asymptomatic, follow up COMPARISON: [...] on filedocumented in this encounter Care Teams Coal Sample Tester Relationship Specialty Start Date End Date Sebastian Griffiths MD PCP - General 10/24/[address] [place] [phone] documented as of this encounter
--- OUTSIDE RECORDS SUMMARY | 2021-12-09 21:34 | XMS_ITS | Encounter Summary ---
:1950 Author Organization [facility] Address [address] [place] [address] Care Team Providers Name Role Phone Sebastian Griffiths MD Primary Care Provider Reason for Visit Reason Onset Date Comments Med Refill 02/17/2018 Encounter Details Date Type Department Care Team Description 02/17/2018 Refill SE Family Med Sebastian Griffiths MD Generalized anxiety [address] [facility] [address] [place] [address] [place] [address] [phone] (Wo rk) Social History Tobacco Use Types [...] do you attend zoroastrianism or Never 2020 caodaism services? Do you [...] this encounter Miscellaneous Notes Telephone Encounter - Zahra Braga MA - 02/17/2018 12:08 PM CST Last seen 02/01/18 Next appointment 03/27/18 Last filled 01/24/18 HEL KEEPER documented in this encounter Plan of Treatment Upcoming Encounters Date Type Specialty Care Team Description 01/18/2022 Telemedicine Family Medicine Sebastian Griffiths MD [address] [place], [place] [address] (Wo rk) documented as of this encounter Visit Diagnoses Diagnosis Generalized anxiety disorder documented in this encounter Care Teams Top Steep Tender Relationship Specialty Start Date End Date Sebastian Griffiths MD PCP - General 10/24/17 [address] [place], [place] [phone] documented as of this encounter
--- OUTSIDE RECORDS SUMMARY | 2021-12-09 21:34 | XMS_ITS | Encounter Summary ---
:1950 Author Organization [facility] Address [address] [place] [id number] Care Team Providers Name Role Phone Sebastian Griffiths MD Primary Care Provider Reason for Referral Hospital - Outpatient (Routine) - Closed Specialty Diagnoses / Procedures Referred By Contact Refer red To Contact Radiology Diagnoses Chronic knee pain after total replacement of left knee joint John Stanley MD Procedures Nuclear medicine bone scan 3 phase [address] [place] [address] Referral ID Status Reason Start Date Expiration Date Visits Requ ested Visits Authorized [id number] Closed 03/09/2018 09/05/2018 4 4 RETE FINISHER Reason for Visit Reason Comments Knee Pain Left Encounter Details Date Type Department Care Team Description 03/09/2018 Office Visit [facility] John Stanley Chronic knee pain Orthopedics MD Mayte after total [address] [facility] [place] [address] knee joint (Primary [phone] Dx) Social History Tobacco Use Types Packs/Day [...] do you attend jewish or Never 2020 zoroastrianism services? Do you [...] encounter Progress Notes John Stanley MD - 03/09/2018 11:40 AM CST Estab Patient Visit Subjective Patient ID: Rena Fan is a 68 y.o. female. Chief Complaint Patient presents with ??? Knee Pain Left History: Patient returns for evaluation of her left knee. 6 months following total knee replacement.He is still complaining of pain in the knee and also stiffness. Still using a walker. She is also asking for pain medication as she usually does. She denies neurovascular change. She has not done much in the way of distance walking. Stays away from stairs. She can put her shoes and socks on. Ortho Exam on exam today she gets out of the chair with her hands. Her gait with a walker is a bit slow. In general she is a bit lethargic as usual. Her knee wound is well-healed. She has a scant effusion. With some effort she can go from 0-120 degrees of flexion. Most of her difficulty is in extension because her knee is weak. Knee is stable. Diffuse tenderness on both sides. No significant tenderness around the pes bursa. The knee is quite stable. Xray review: X-rays taken show no change in configuration or alignment compared to the one done a month after surgery. There are no calcifications or signs of loosening. ASSESSMENT: Primary osteoarthritis of the left knee. 6 months following total knee arthroplasty. Continued pain complaints that are out of proportion to her evaluation. PLAN: I looked up information regarding her right total knee that was done a number of years ago. Onher evaluation 8 months after the operation, she had similar complaints that she has right now and her examination was essentially the same. Advised the patient to discuss her pain medication with Dr. Griffiths. According to his notes, he is not interested in providing anything for pain for her. She asked me for some tramadol. Also indicates that the last time she took it it did not do anything. Dr. Griffiths's note she indicated that it made her nauseated and she had to throw up. I informed her that I would not provide her any pain medication and I have to leave that up to her primary provider. Because she is still having complaints however, I need to check a sed rate and C-reactive protein tomake sure there is no evidence of infection. I will also check a bone scan to be sure that the reaction around the joint is not out of proportion to her status. I will see her after these are completed. (This dictation was transcribed using voice recognition software. There may be other sections of thedocumentation that still contain grammatical errors that went unnoticed.) RETE FINISHER Sebastian Griffiths MD - 03/09/2018 11:40 AM CST Reviewed RETE FINISHER documented in this encounter Plan of Treatment Upcoming Encounters Date Type Specialty Care Team Description 01/18/2022 Telemedicine Family Medicine Sebastian Griffiths MD [address] [place], [place] [address] (Wo rk) documented as of this encounter Visit Diagnoses Diagnosis Chronic knee pain after total replacemen t of left knee joint - Primary documented in this encounter Care Teams Dock Manager Relationship Specialty Start Date End Date Sebastian Griffiths MD PCP - General 10/24/17 [address] [place] [address] documented as of this encounter
--- OUTSIDE RECORDS SUMMARY | 2021-12-09 21:34 | XMS_ITS | Encounter Summary ---
:1950 Author Organization [facility] Address [address] [place] [address] Care Team Providers Name Role Phone Sebastian Griffiths MD Primary Care Provider Encounter Details Date Type Department Care Team Description 05/10/2018 Telephone SE Family [facility] Sebastian Griffiths MD [address] [facility] [address] [place] [address] [place] [address] [phone] (Wo rk) Social History Tobacco Use Types [...] or relatives? How often do you attend jain or Never 2020 congregational services? Do you belong to any clubs or No 05/18/2020 organizations such as jain groups, unions, fraternal or athletic groups, or [...] Telephone Encounter - Kaelyn Lawson RN - 05/10/2018 8:29 AM CST Home health nurse is calling wanting to schedule an appointment for patient, but is not willing to let patient answer triage questions and doesn't want to answer them either, is sure patient just needsto be seen in the office today. -patient was hospitalized for pneumonia a month ago and has been treated with 2 antibiotics, and nowhome health nurse is questioning patients lung sounds, keeps saying she does not see an ED picture here, just wants someone else to listen to her lungs. -she reports a O2 saturation of 94% and a respiratory rate of 14, when I asked what her usual O2 saturations are, she admits that this value today is a little low -when I explained that I needed to ask triage questions before scheduling, she states the triage process is quite lengthy and can we just have the top 10 questions? -at this point, I explained that I would transfer her to make her requested appointment and will send documentation to the provider patient is scheduled with to make sure they are comfortable seeing her after patient is not triaged -I got a CAD on the line, in the meantime, home health nurse has hung up the line. OR SKIN BUFFER documented in this encounter Plan of Treatment Upcoming Encounters Date Type Specialty Care Team Description 01/18/2022 Telemedicine Family Medicine Sebastian Griffiths MD [address] [place] [phone] (Wo rk) documented as of this encounter Visit Diagnoses Not on filedocumented in this encounter Care Teams Auto Camp Attendant Relationship Specialty Start Date End Date Sebastian Griffiths MD PCP - General 10/24/[address] [place] [phone] documented as of this encounter
--- OUTSIDE RECORDS SUMMARY | 2021-12-09 21:34 | XMS_ITS | Encounter Summary ---
:1950 Author Organization [facility] Address [address] [place] [address] Care Team Providers Name Role Phone Sebastian Griffiths MD Primary Care Provider Encounter Details Date Type Department Care Team Description 03/23/2018 Abstract SE Family Med Sebastian Griffiths MD [address] [facility] [address] [place] [address] [place] [address] [phone] (Wo rk) Social History Tobacco Use Types [...] do you attend latter-day or Never 2020 worship services? Do you [...] Telemedicine Family Medicine Sebastian Griffiths MD [address] [place] [phone] (Wo rk) documented as of this encounter Visit Diagnoses Not on filedocumented in this encounter Care Teams Barrel Polisher Relationship Specialty Start Date End Date Sebastian Griffiths MD PCP - General 10/24/17 [address] [place] [address] documented as of this encounter
--- OUTSIDE RECORDS SUMMARY | 2021-12-09 21:34 | XMS_ITS | Encounter Summary ---
:1950 Author Organization [facility] Address [address] [place] [address] Care Team Providers Name Role Phone Sebastian Griffiths MD Primary Care Provider Reason for Visit Reason Comments pneumonia followup Encounter Details Date Type Department Care Team Description 04/18/2018 Office Visit [facility] Marcial Inman Pruritus (Primary Dx); [address] [facility] MD Moriah Cough; [place] [address] 210 [facility] Chest pain, unspecified type [phone] [place] [address] Social History Tobacco Use Types [...] do you attend buddhism or Never 2020 buddhism services? Do you [...] Sign Reading Time Taken Comments Blood Pressure 120/76 04/18/2018 2:19 PM SUPERVISOR LAST MODEL DEPARTMENT Pulse 80 04/18/2018 2:19 PM SUPERVISOR LAST MODEL DEPARTMENT Temperature 37.1 ??C (98.8 ??F) 04/18/2018 2:19 PM SUPERVISOR LAST MODEL DEPARTMENT Respiratory Rate 20 04/18/2018 2:19 PM SUPERVISOR LAST MODEL DEPARTMENT Oxygen Saturation 95% 04/18/2018 2:19 PM SUPERVISOR LAST MODEL DEPARTMENT Inhaled Oxygen Concentration - - Weight 103 kg (226 lb 10.1 oz) 04/18/2018 2:19 PM SUPERVISOR LAST MODEL DEPARTMENT Height 165 cm (5' 4.96) 04/18/2018 2:19 PM SUPERVISOR LAST MODEL DEPARTMENT Body Mass Index 37.76 04/18/2018 2:19 PM SUPERVISOR LAST MODEL DEPARTMENT documented in this encounter Progress Notes Marcial Inman MD - 04/18/2018 3:00 PM CST Estab Patient Visit Subjective Patient ID: Rena Fan is a 68 y.o. female. HPI Here for a follow up of pneumonia She was seen at [facility] And had a substantial workup Was given antibiotics for presumed pneumonia Based on exam and the xray actually looked better than her last one She connie given cefdinir and also zithromax Fever has resolved But she is still coughing up purulent sputum Has chest pain still Likely from the cough Not sleeping Review of Systems 100% positive Mainly form multiple aches and pains Objective Physical Exam resp rate slightly high She has bibasilar crackles that sound infectious o2 sat is well normal at 95% Assessment/Plan Diagnoses and all orders for this visit: Pruritus - hydrOXYzine (VISTARIL) 25 MG capsule; Take 1 capsule (25 mg total) by mouth 3 (three) times a day if needed for itching Cough - minocycline (MINOCIN,DYNACIN) 100 MG capsule; Take 1 capsule (100 mg total) by mouth 2 (two) timesa day for 14 days Chest pain, unspecified type - oxyCODONE-acetaminophen (PERCOCET) 5-325 MG per tablet; Take 1-2 tablets by mouth at bed time Do not exceed 8 tablets per day. Follow up if fever recurrs Dispensed 12 percocet tabs RVISOR LAST MODEL DEPARTMENT documented in this encounter Plan of Treatment Upcoming Encounters Date Type Specialty Care Team Description 01/18/2022 Telemedicine Family Medicine Sebastian Griffiths MD [address] [place] [address] (Wo rk) documented as of this encounter Visit Diagnoses Diagnosis Pruritus - Primary Unspecified pruritic disorder Cough Chest pain, unspecified type documented in this encounter Care Teams Rattling Machine Tender Relationship Specialty Start Date End Date Sebastian Griffiths MD PCP - General 10/24/17 [address] [place] [address] documented as of this encounter
--- OUTSIDE RECORDS SUMMARY | 2021-12-09 21:34 | XMS_ITS | Encounter Summary ---
:1950 Author Organization [facility] Address [address] [place] [address] Care Team Providers Name Role Phone Sebastian Griffiths MD Primary Care Provider Reason for Visit Reason Comments Med Refill Encounter Details Date Type Department Care Team Description 04/05/2018 Refill SE Family Med Sebastian Griffiths, Controlled type 2 diabetes m ellitus without complication, without long-term current use of insulin ([facility]) (Primary Dx); [address] [facility] Generalized anxiety disorder; [place] [address] Gastroesophageal reflux dise ase without esophagitis; [phone] Bee sting allergy; [place], [place] Glaucoma, unsp ecified glaucoma type, unspecified laterality; [id number] Chronic obstructive pulmonary disease, u nspecified COPD type ([facility]) Social History Tobacco Use Types Packs/Day [...] do you attend amish or Never 2020 quaker services? Do you [...] Telephone Encounter - Catherine Frank LPN - 04/06/2018 2:34 PM CORN CUTTER Pantoprazole 40mg take one daily last filled on 03/07/17 #30 with 12 refills Xalatan one gtt at bedtime into affected eye last filled on 03/03/16 #1 with 4 refills Basaglar Kwinpen last filled on 03/08/17 #15 with 5 refills Epi Pen 2 pack last filled on 06/13/17 #1 no refills Duo Neb use every 4 hours as needed for wheezing #1 box with 5 refills Lorazepam 1 mg take one TID last filled on 02/18/18 #90 with 1 refill Pt last seen on 03/27/17 Component Latest Ref Rng & Units 09/07/2017 [...] Total Bilirubin 0.1 - 1.0 mg/dL 0.5 Pt has an appt on 06/26/18 CUTTER documented in this encounter Plan of Treatment Upcoming Encounters Date Type Specialty Care Team Description 01/18/2022 Telemedicine Family Medicine Sebastian Griffiths MD [address] [place] [address] (Wo rk) documented as of this encounter Visit Diagnoses Diagnosis Controlled type 2 diabetes mellitus with out complication, without long-term current use of insulin (HCC) - Primary Generalized anxiety disorder Gastroesophageal reflux disease without esophagitis Esophageal reflux Bee sting allergy Glaucoma, unspecified glaucoma type, uns pecified laterality Chronic obstructive pulmonary disease, u nspecified COPD type (HCC) documented in this encounter Care Teams Smelting Engineer Relationship Specialty Start Date End Date Sebastian Griffiths MD PCP - General 10/24/[address] [place] [address] documented as of this encounter
--- OUTSIDE RECORDS SUMMARY | 2021-12-09 21:34 | XMS_ITS | Encounter Summary ---
:1950 Author Organization [facility] Address [address] [place] [address] Care Team Providers Name Role Phone Sebastian Griffiths MD Primary Care Provider Encounter Details Date Type Department Care Team Description 04/14/2018 Abstract SE Family Med Sebastian Griffiths MD [address] [facility] [address] [place] [address] [place] [address] [phone] (Wo rk) Social History Tobacco Use Types [...] do you attend methodist or Never 2020 caodaism services? Do you [...] Telemedicine Family Medicine Sebastian Griffiths MD [address] [place] [phone] (Wo rk) documented as of this encounter Visit Diagnoses Not on filedocumented in this encounter Care Teams Optics Engineer Relationship Specialty Start Date End Date Sebastian Griffiths MD PCP - General 10/24/17 [address] [place] [address] documented as of this encounter
--- OUTSIDE RECORDS SUMMARY | 2021-12-09 21:34 | XMS_ITS | Encounter Summary ---
:1950 Author Organization [facility] Address [address] [place] [address] Care Team Providers Name Role Phone Sebastian Griffiths MD Primary Care Provider Reason for Visit Reason Comments Med Refill Encounter Details Date Type Department Care Team Description 03/23/2018 Refill SE Family Med Sebastian Griffiths MD Preventative health care [address] [facility] [address] [facility] (Primary Dx) [place] [address] [place] [address] [phone] (Wo rk) Social History Tobacco Use Types [...] do you attend synagogue or Never 2020 confucianist services? Do you [...] Telephone Encounter - Candice Werner LPN - 03/27/2018 1:12 PM CST Last Rx Multivitamin (multivitamin) Multiple Vitamins tablet, oral, 1 tablet(s), QAM Last Prescribed: 03/07/2017 Prescriber: Sebastian Griffiths [facility]: [facility] Quantity: 100 Refills: 3 Notes: May substitute formulary generic vitamin. Chronic: Y Med/dx last reviewed 02/01/18 Upcoming appt scheduled 06/26/18 (appt today, 03/27/18) BP Readings from Last 2 Encounters: 03/27/18 112/70 02/01/18 112/74 [place] FINANCIAL ANALYST documented in this encounter Plan of Treatment Upcoming Encounters Date Type Specialty Care Team Description 01/18/2022 Telemedicine Family Medicine Sebastian Griffiths MD [address] [place], [place] [address] (Wo rk) documented as of this encounter Visit Diagnoses Diagnosis Preventative health care - Primary Routine general medical examination at a health care facility documented in this encounter Care Teams Electric Motor Assembler And Tester Relationship Specialty Start Date End Date Sebastian Griffiths MD PCP - General 10/24/17 [address] [place], [place] [address] documented as of this encounter
--- OUTSIDE RECORDS SUMMARY | 2021-12-09 21:34 | XMS_ITS | Encounter Summary ---
:1950 Author Organization [facility] Address [address] [place] [address] Care Team Providers Name Role Phone Sebastian Griffiths MD Primary Care Provider Reason for Visit Reason Comments Follow-up Encounter Details Date Type Department Care Team Description 02/01/2018 Office Visit SE Family Med Sebastian Griffiths, Chronic pain of right knee ( Primary Dx); [address] [facility] Controlled type 2 diabetes mellitus with out complication, without long-term current use of insulin (HCC); [place] [address] Primary insomnia; [phone] Hepatitis C virus infection without hepa tic coma, unspecified chronicity; [place], [place] Immunization d ue [id number] Social History Tobacco Use Types Packs/Day Years [...] do you attend advent or Never 2020 taoism services? Do you [...] Sign Reading Time Taken Comments Blood Pressure 112/74 02/01/2018 4:29 PM SECURITY SYSTEMS SALES REPRESENTATIVE Pulse 96 02/01/2018 4:29 PM SECURITY SYSTEMS SALES REPRESENTATIVE Temperature 36.3 ??C (97.4 ??F) 02/01/2018 4:29 PM SECURITY SYSTEMS SALES REPRESENTATIVE Respiratory Rate 16 02/01/2018 4:29 PM SECURITY SYSTEMS SALES REPRESENTATIVE Oxygen Saturation 97% 02/01/2018 4:29 PM SECURITY SYSTEMS SALES REPRESENTATIVE Inhaled Oxygen Concentration - - Weight 100 kg (221 lb 1.9 oz) 02/01/2018 4:29 PM SECURITY SYSTEMS SALES REPRESENTATIVE Height 165 cm (5' 4.96) 02/01/2018 4:29 PM SECURITY SYSTEMS SALES REPRESENTATIVE Body Mass Index 36.84 02/01/2018 4:29 PM SECURITY SYSTEMS SALES REPRESENTATIVE documented in this encounter Patient Instructions Patient InstructionsSebastian Griffiths MD - 02/01/2018 4:00 PM CST No change in medicine except decrease zolpidem to 5mg at bedtime. Prescription sent in. No narcotic medicines. Keep doing your home exercises. RITY SYSTEMS SALES REPRESENTATIVE documented in this encounter Progress Notes Sebastian Griffiths MD - 02/01/2018 4:00 PM CST Estab Patient Visit Subjective Patient ID: Rena Fan is a 68 y.o. female. Chief Complaint Patient presents with ??? Follow-up HPI This 68-year-old female comes in for recheck of her medications and her left knee pain. Last August she had a total left knee arthroplasty but states she still has the chronic pain she was trying to get rid of. She is wondering if she could have some Percocet. The patient and I have had a long relationship with dealing with her chronic pain syndrome. She understands that I am not able to prescribe narcotics for her. She was recently given tramadol but states it made her quite nauseated. She was told that she cannot take zolpidem for her insomnia at her age. She is on 10 mg at this time. She has had bad reaction with trazodone. She saw prescription commercial on TV for Latuda and 1 to know if that would be appropriate for her. The following portions of the patient's chart were reviewed in this encounter and updated as appropriate: Tobacco Allergies Meds Problems Med Hx Surg Hx Fam Hx Soc Hx Review of Systems Denies any chest pain, shortness of breath, fluid retention. Objective Visit Vitals BP 112/74 (BP Location: Left arm, Patient Position: Sitting) Pulse 96 Temp 36.3 ??C (97.4 ??F) (Temporal) Resp 16 Ht 1.65 m (5' 4.96) Wt 100 kg (221 lb 1.9 oz) SpO2 97% BMI 36.84 kg/m?? Smoking Status Current Every Day Smoker BSA 2.14 m?? Physical Exam GENERAL: In no apparent distress. HEAD: Normocephalic. EYES: Pupils are equal. Extraocular motions intact. No icterus. NECK: No adenopathy, thyromegaly, or bruits. CHEST: [...] focal sensory or strength deficits. Speech normal. Monofilament testing was normal. MUSCULOSKELETAL: She still has a little effusion around that left knee. She can straighten it all the way and she can flex at 115 degrees. She ambulates with the help of a wheeled walker. PSYCHIATRIC: Mood normal. SKIN: No rash, lesions, or open skin sores. Assessment/Plan Diagnoses and all orders for this visit: Chronic pain of right knee Controlled type 2 diabetes mellitus without complication, without long-term current use of insulin - Hemoglobin A1c; Future (today) In 6 months - Basic metabolic panel; Future - Hemoglobin A1c; Future - Lipid panel; Future - Microalbumin/Creatinine Ratio; Future Primary insomnia Hepatitis C virus infection without hepatic coma, unspecified chronicity - ALT; Future (today) Immunization due - Influenza High Dose >65yr Preservative Free IM Other orders - Influenza High Dose >65yr Preservative Free IM Patient Instructions No change in medicine except decrease zolpidem to 5mg at bedtime. Prescription sent in. No narcotic medicines. Keep doing your home exercises. I will send her the lab results. She states that she would like to consider having a scooter or power wheelchair next spring which we could consider. She will make a six-month appointment recheck with me. 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
--- OUTSIDE RECORDS SUMMARY | 2021-12-09 21:34 | XMS_ITS | Encounter Summary ---
:1950 Author Organization [facility] Address [address] [place] [address] Care Team Providers Name Role Phone Sebastian Griffiths MD Primary Care Provider Encounter Details Date Type Department Care Team Description 03/09/2018 Telephone [facility] Ariane Larry, PROFESSOR OF ANTHROPOLOGY [address] [place] [address] [address] [place], [place] [address] Social History Tobacco Use Types Packs/Day Years [...] do you attend religion or Never 2020 anglican services? Do you [...] this encounter Miscellaneous Notes Telephone Encounter - Benito Stubbs RN - 03/09/2018 4:17 PM CST [facility]. Pt has crackles LL lung base, no pneumonia symptoms. No fever, chills, Not encouraged to go to ED. Offered acute care if worsens. Pt in NAD per eleanor. RITY RISK ANALYST documented in this encounter Plan of Treatment Upcoming Encounters Date Type Specialty Care Team Description 01/18/2022 Telemedicine Family Medicine Sebastian Griffiths MD [address] [place], [place] [address] (Wo rk) documented as of this encounter Visit Diagnoses Not on filedocumented in this encounter Care Teams Special Needs Teacher Relationship Specialty Start Date End Date Sebastian Griffiths MD PCP - General 10/24/[address] [place] [phone] documented as of this encounter
--- OUTSIDE RECORDS SUMMARY | 2021-12-09 21:34 | XMS_ITS | Encounter Summary ---
:1950 Author Organization [facility] Address [address] [place] [address] Care Team Providers Name Role Phone Sebastian Griffiths MD Primary Care Provider Reason for Visit Reason Comments Med Refill Encounter Details Date Type Department Care Team Description 05/10/2018 Refill SE Family Med Sebastian Griffiths MD Major depressive [address] [facility] [address] disorder, [place] [address] [place] [address] episode, moderate (HCC) [phone] (Wo rk) (Primary Dx) Social History Tobacco [...] do you attend congregation or Never 2020 m[employer]on services? Do you [...] Telephone Encounter - Tamie Shore MA - 05/10/2018 4:00 PM CST RISPERIDONE 2MG TAB TABS, #60 x 11 refills 05/31/2017 Pt was last seen on 04/18/[address] Inman, but med was not discussed. There is no upcoming appointment scheduled for pt at this time. Please advise, thank you. RVISOR DRAWING documented in this encounter Plan of Treatment Upcoming Encounters Date Type Specialty Care Team Description 01/18/2022 Telemedicine Family Medicine Sebastian Griffiths MD [address], [place] [address] (Wo rk) documented as of this encounter Visit Diagnoses Diagnosis Major depressive disorder, recurrent epi sode, moderate (HCC) - Primary Major depressive disorder, recurrent epi sode, moderate documented in this encounter Care Teams Stations Superintendent Relationship Specialty Start Date End Date Sebastian Griffiths MD PCP - General 10/24/[address] [place] [address] [id number] documented as of this encounter
--- OUTSIDE RECORDS SUMMARY | 2021-12-09 21:34 | XMS_ITS | Encounter Summary ---
:1950 Author Organization [facility] Address [address] [place] [address] Care Team Providers Name Role Phone Unavailable Primary Care Provider Unavailable Encounter Details Date Type Department Care Team Description 09/05/2017 - Hospital [facility], Primary osteoar thritis of left knee; 09/07/2017 Encounter Medical/Surgical John Hu MD Type 2 diabetes mellitus wit hout complications (HCC); [address] Chronic obstructive pulmonar y disease ([facility]); [place], [place] Essential (marco emilia) hypertension; [id number] 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 Do you [...] Sig Dispensed Refills Start Date End Date [facility] glucometer strips See 0 10/29/2015 (RECONSTITUBE) [...] (one) 0 06/2209/11/2018 tablet time each day diclofenac (VOLTAREN) 1 0 05/15/2017 0 03/27/2018 % topical gel dorzolamide-timolol Administer 1 drop 0 7 06/14/2018 (COSOPT) 22.3-6.8 MG/ML into both eyes 2 ophthalmic solution (two) times a day EPINEPHrine (EPIPEN 0 06/13/201704/05 2-ADDIS) 0.3 MG/0.3ML injection syringe fluticasone HFA (FLOVENT Inhale 2 puffs 2 0 07/1906/26/2018 HFA) 110 MCG/ACT inhaler (two) times a day furosemide (LASIX) 40 MG 0 03/03/2016 02/01/2018 tablet hydrOXYzine (VISTARIL) Take 25 mg by mouth 3 0 04/18/2018 25 MG capsule (three) times a day if needed insulin glargine Inject 20 Units under 0 03/08/20 17 04/05/2018 (BASAGLAR KWIKPEN) 100 the skin 1 (one) time UNIT/ML injection each day in the evening At 5pm ipratropium-albuterol 0 03/07/2017 (DUO-NEB) 0.5-2.5 mg/3 mL nebulizer solution latanoprost (XALATAN) 0 03/03/2016 0.005 % ophthalmic solution lidocaine (XYLOCAINE) 5 Apply topically Apply 0 1 05/08/2016 12/03/2020 % ointment small bead and rub in skin 2-4 times a day over painful back area. Wash off hands. lisinopril-hydroCHLOROth Take 1 tablet by 0 06/2912/20/2017 iazide mouth 1 (one) time (PRINZIDE,ZESTORETIC) each day. 10-12.5 MG per tablet methocarbamol (ROBAXIN) Take 500 mg by mouth 0 03/27/2018 500 MG tablet 2 (two) times a day multivitamin with Take 1 tablet by 0 03/07/2017 1 04/03/2017 minerals mouth 1 (one) time (CENTRUM/CERTAVIT) 9-200 each day mg-mcg tablet (HALF TABLET) Oxymetazoline HCl (NASAL 0 06/13/2017 10/22/2019 SPRAY NA) pantoprazole (PROTONIX) Take 40 mg by mouth 1 0 1 05/08/2016 04/05/2018 40 MG EC tablet (one) time each day before breakfast risperiDONE (RisperDAL) Take 2 mg by mouth 2 0 05/10/2018 2 MG tablet (two) times a day senna-docusate Take 2 tablets by 0 06/24/2017 (PERICOLACE) 8.6-50 MG mouth per tablet documented as of this encounter Plan of Treatment Upcoming Encounters Date Type Specialty Care Team Description 01/18/2022 Telemedicine Family Medicine Sebastian Griffiths MD [address] [place] [address] [phone] (Wo rk) documented as of this encounter Procedures Procedure Name Priority Date/Time Associated Comments Diagnosis POCT PRECISION GLUCOSE Routine 09/07/2017 11:18 R esults for this AM CDT procedure are i n the results section. POCT PRECISION GLUCOSE Routine 09/07/2017 7:13 AM Results for this CDT procedure are i n the results section. GLOMERULAR FILTRATION Routine 09/07/2017 5:39 AM Results for this RATE CDT procedure are i n the results section. CBC Routine 09/07/2017 5:39 AM Results f or this CDT procedure are i n the results section. COMPREHENSIVE Routine 09/07/2017 5:39 AM Results for this METABOLIC PANEL CDT procedure ar e in the results section. POCT PRECISION GLUCOSE Routine 09/06/2017 10:57 R esults for this PM CDT procedure are i n the results section. POCT PRECISION GLUCOSE Routine 09/06/2017 5:48 PM Results for this CDT procedure are i n the results section. GLOMERULAR FILTRATION Routine 09/06/2017 12:40 Re sults for this RATE PM CDT procedure are i n the results section. TROPONIN I Routine 09/06/2017 12:40 Results for this PM CDT procedure are i n the results section. COMPREHENSIVE Routine 09/06/2017 12:40 Results fo r this METABOLIC PANEL PM CDT procedure ar e in the results section. POCT PRECISION GLUCOSE Routine 09/06/2017 11:46 R esults for this AM CDT procedure are i n the results section. POCT PRECISION GLUCOSE Routine 09/06/2017 7:18 AM Results for this CDT procedure are i n the results section. GLOMERULAR FILTRATION Routine 09/06/2017 5:35 AM Results for this RATE CDT procedure are i n the results section. CBC Routine 09/06/2017 5:35 AM Results f or this CDT procedure are i n the results section. BASIC METABOLIC PANEL Routine 09/06/2017 5:35 AM Results for this CDT procedure are i n the results section. POCT PRECISION GLUCOSE Routine 09/05/2017 11:23 R esults for this PM CDT procedure are i n the results section. POCT PRECISION GLUCOSE Routine 09/05/2017 5:01 PM Results for this CDT procedure are i n the results section. XR KNEE 1-2 VIEWS LEFT Routine 09/05/2017 11:18 R esults for this AM CDT procedure are i n the results section. POCT PRECISION GLUCOSE Routine 09/05/2017 11:00 R esults for this AM CDT procedure are i n the results section. POCT PRECISION GLUCOSE Routine 09/05/2017 9:24 AM Results for this CDT procedure are i n the results section. POCT PRECISION GLUCOSE Routine 09/05/2017 7:32 AM Results for this CDT procedure are i n the results section. TYPE, SCREEN, HOLD Routine 09/05/2017 6:45 AM Res ults for this UNITS CDT procedure are i n the results section. documented in this encounter Results (ABNORMAL) POCT Precision glucose (09/07/2017 11:18 AM CDT) athologist Signature Glucose Blood, 130 (H) 70 - 100 09/07/2017 [facility] mg/dL 11:18 AM CDT [facility] Comment: Meter ID: [id number] Specimen Anatomical Collection Method Collection Time Receive d Time (Source) Location / / Volume Laterality 09/07/2017 11:18 09/08/2017 2:02 AM CDT AM CDT John Stanley MD LAB POINT OF CARE TEST DOCKE D DEVICE UNSOLICITED RESULTS Performing Organization Address City/State/ZIP Code Phon e Number [facility] [address] [place] [phone] (ABNORMAL) POCT Precision glucose (09/07/2017 7:13 AM CDT) athologist [facility] Glucose Blood, 142 (H) 70 - 100 09/07/2017 [facility] mg/dL 7:13 AM CDT [facility] Comment: Meter ID: [id number] Specimen Anatomical Collection Method Collection Time Receive d Time (Source) Location / / Volume Laterality 09/07/2017 7:13 AM 8 2:02 CDT AM CDT John Stanley MD LAB POINT OF CARE TEST DOCKE D DEVICE UNSOLICITED RESULTS Performing Organization Address City/State/ZIP Code Phon e Number [facility] [address] [place] [phone] Glomerular filtration rate (GFR) (09/07/2017 5:39 AM CDT) athologist Signature GFR >60 09/07/2017 [facility] 6:15 AM CDT [facility] >60 09/07/2017 [facility] [place] GFR 6:15 AM CDT [facility] Comment: GFR calculated from serum creatinine v alue Chronic Kidney Disease less than 60 mL/m in/1.73 m2 Kidney Failure less than 15 mL/min/1.73 m2 Note: effective 08/02/06 IDMS-Traceable MDRD Study Equation used. Specimen Anatomical Collection Method Collection Time Receive d Time (Source) Location / / Volume Laterality 09/07/2017 5:39 AM 8 5:39 CDT AM T John Stanley MD LAB BLOOD ORDERABLES Performing Organization Address City/State/ZIP Code Phon e Number [facility] [address] [place] [address] (ABNORMAL) Comprehensive metabolic panel (09/07/2017 5:39 AM CDT) [facility] Method Time Signature Fasting? Unknown 09/07/2017 [facility] 6:09 AM [facility] Sodium 139 135 - 145 09/07/2017 [facility] mEq/L 6:13 AM [facility] Potassium 4.6 3.5 - 5.1 09/07/2017 [facility] mEq/L 6:13 AM [facility] Chloride 101 98 - 107 09/07/2017 [facility] mEq/L 6:12 AM [facility] CO2 31 (H) 22 - 29 09/07/2017 [facility] mmol/L 6:15 AM [facility] BUN 15 5 - 25 09/07/2017 [facility] mg/dL 6:16 AM [facility] Creatinine 0.7 0.4 - 1.2 09/07/2017 [facility] mg/dL 6:15 AM [facility] Glucose 111 (H) 70 - 100 09/07/2017 [facility] mg/dL 6:16 AM [facility] Alkaline 76 38 - 128 09/07/2017 [facility] Phosphatase U/L 6:16 AM [facility] AST 40 8 - 43 U/L 09/07/2017 [facility] 6:15 AM [facility] Total Protein 6.4 6.3 - 8.2 09/07/2017 [facility] g/dL 6:16 AM [facility] Albumin, Serum 3.4 (L) 3.5 - 5.0 09/07/2017 [facility] g/dL 6:12 AM [facility] Calcium, Total,S 9.8 8.4 - 10.2 09/07/2017 [facility] mg/dL 6:16 AM [facility] ALT (SGPT) 49 (H) 25 - 45 09/07/2017 [facility] U/L 6:16 AM T [facility] Comment: . Total Bilirubin 0.5 0.1 - 1.0 mg/dL 09/07/2017 6:15 AM CDT [facility] Specimen Anatomical Collection Method Collection Time Receive d Time (Source) Location / / Volume Laterality 09/07/2017 5:39 AM 8 6:09 CDT AM CDT John Stanley MD LAB BLOOD ORDERABLES Performing Organization Address City/[facility] Phon e Number [facility] [address] [place] [address] (ABNORMAL) CBC ([facility]) (09/07/2017 5:39 AM CDT) P athologist Signature WBC 9.9 3.5 - 10.5 09/07/2017 [facility] K/uL 6:08 AM CDT [facility] RBC 3.76 (L) 3.90 - 09/07/2017 [facility] 5.00 M/uL 6:08 AM CDT [facility] Hemoglobin 11.5 (L) 12.0 - 09/07/2017 [facility] 15.5 g/dL 6:08 AM CDT [facility] Hematocrit 35.1 35.0 - 09/07/2017 [facility] 44.0 % 6:08 AM CDT [facility] MCV 93.4 81.6 - 09/07/2017 [facility] 98.3 fL 6:08 AM CDT [facility] MCH 30.5 26.0 - 09/07/2017 [facility] 32.0 pg 6:08 AM CDT [facility] MCHC 32.6 32.0 - 09/07/2017 [facility] 36.0 g/dL 6:08 AM CDT [facility] RDW 13.2 11.9 - 09/07/2017 [facility] 15.5 % 6:08 AM CDT [facility] Platelets 260 150 - 450 09/07/2017 [facility] K/uL 6:08 AM T [facility] Specimen Anatomical Collection Method Collection Time Receive d Time (Source) Location / / Volume Laterality 09/07/2017 5:39 AM 8 6:09 CDT AM CDT John Stanley MD LAB BLOOD ORDERABLES Performing Organization Address City/State/ZIP Code Phon e Number [facility] [address] [place] [phone] (ABNORMAL) POCT Precision glucose (09/06/2017 10:57 PM CDT) athologist Signature Glucose Blood, 122 (H) 70 - 100 09/06/2017 [facility] mg/dL 10:57 PM CDT [facility] Comment: Meter ID: [id number] Specimen Anatomical Collection Method Collection Time Receive d Time (Source) Location / / Volume Laterality 09/06/2017 10:57 09/07/2017 PM CDT 12:27 AM CDT John Stanley MD LAB POINT OF CARE TEST DOCKE D DEVICE UNSOLICITED RESULTS Performing Organization Address City/State/ZIP Code Phon e Number [facility] [address] [place] [phone] (ABNORMAL) POCT Precision glucose (09/06/2017 5:48 PM CDT) athologist Signature Glucose Blood, 154 (H) 70 - 100 09/06/2017 [facility] mg/dL 5:48 PM CDT [facility] Comment: Meter ID: [id number] Specimen Anatomical Collection Method Collection Time Receive d Time (Source) Location / / Volume Laterality 09/06/2017 5:48 PM 8 CDT 12:27 AM CDT John Stanley MD LAB POINT OF CARE TEST DOCKE D DEVICE UNSOLICITED RESULTS Performing Organization Address City/State/ZIP Code Phon e Number [facility] [address] [place] [phone] Glomerular filtration rate (GFR) (09/06/2017 12:40 PM CDT) athologist Signature GFR >60 09/06/2017 [facility] 12:51 PM CDT [facility] >60 09/06/2017 [facility] [place] GFR 12:51 PM CDT [facility] Comment: GFR calculated from serum creatinine v alue Chronic Kidney Disease less than 60 mL/m in/1.73 m2 Kidney Failure less than 15 mL/min/1.73 m2 Note: effective 08/02/06 IDMS-Traceable MDRD Study Equation used. Specimen Anatomical Collection Method Collection Time Receive d Time (Source) Location / / Volume Laterality 09/06/2017 12:40 09/06/2017 PM CDT 12:40 PM CDT Katia Guadarrama MD LAB BLOOD ORDERABLES Performing Organization Address City/State/ZIP Code Phon e Number [facility] [address] [place] [address] Troponin I (09/06/2017 12:40 PM CDT) athologist Signature Troponin I <0.012 0.012 - 09/06/2017 [facility] 0.034 ng/mL 2:25 PM CDT [facility] Comment: Note Reference Value Range Change: <=0.034 ??Normal >0.034 ?? Abnormal >0.120 ?? Indicates a high likelihood of myocardial infarction ? in patients with symptoms o f ischemia Diagnosis of myocardial infarction can b e based on detection of a characteristic rise and/or fall of Troponin-I, with at least one value >0.034 ng/mL, together w ith evidence of myocardial ischemia with at least one of the following: ??* Symptoms of ischemia ??* ECG changes indicative of new ische ornda ??* Development of pathological Q Waves in the ECG ??* Imaging evidence of new loss of via ble myocardium or new ?regional wall motion abnormality. A single Troponin-I measurement of >0.12 0 ng/mL conveys a high likelihood of mycoardial infarction in patients with symptoms of ischemia; however, a charact eristic rise and/or fall of Troponin-I is still required for a definitive diagnosis of myocardial infarction. The results from this or any other diagn ostic test should be used and interpreted only in the context of the overall clinical picture. Biotin levels in serum remain elevated f or up to 24 hours after oral or intravenous biotin adminis tration and may interfere with this assay to produce unr eliable results. Heterophilic antibodies in serum or plas ma samples may cause interference in immunoassays. ??Exposure to animal antigens, either in the environment or as part of treatment or imaging procedures, may have circulating anti-an imal antibodies present. These antibodies may interfere with the assay reagents to produce unreliable results. ??Results which are inconsistent with clinical observations indicate the need for additional testing. Specimen Anatomical Collection Method Collection Time Receive d Time (Source) Location / / Volume Laterality 09/06/2017 12:40 09/06/2017 PM CDT 12:45 PM CDT Katia Guadarrama MD LAB BLOOD ORDERABLES Performing Organization Address City/State/ZIP Code Phon e Number [facility] [address] [place] [address] (ABNORMAL) Comprehensive metabolic panel (09/06/2017 12:40 PM CDT) athologist Signature Fasting? Unknown 09/06/2017 [facility] 12:45 PM T [facility] Comment: . Sodium 141 135 - 145 09/06/2017 12:49 PM [facility] mEq/L [facility] Potassium 5.2 (H) 3.5 - 5.1 09/06/2017 12:49 PM [facility] mEq/L [facility] Chloride 104 98 - 107 mEq/L 09/06/2017 12:49 PM [facility] CO2 28 22 - 29 mmol/L 09/06/2017 12:52 PM [facility] BUN 18 5 - 25 mg/dL 09/06/2017 12:52 PM [facility] Creatinine 0.7 0.4 - 1.2 09/06/2017 12:51 PM [facility] Glucose 99 70 - 100 mg/dL 09/06/2017 12:52 PM [facility] Alkaline Phosphatase 71 38 - 128 U/L 09/06/2017 12:52 PM [facility] AST 51 (H) 8 - 43 U/L 09/06/2017 12:52 PM [facility] Total Protein 7.0 6.3 - 8.2 g/dL 09/06/2017 12:52 PM [facility] Albumin, Serum 3.8 3.5 - 5.0 g/dL 09/06/2017 12:49 PM [facility] Calcium, Total,S 9.6 8.4 - 10.2 09/06/2017 12:53 PM [facility] mg/dL T [facility] ALT (SGPT) 53 (H) 25 - 45 U/L 09/06/2017 12:52 PM [facility] Comment: . Total Bilirubin 0.5 0.1 - 1.0 mg/dL 09/06/2017 12:5 1 PM CDT [facility] Specimen Anatomical Collection Method Collection Time Receive d Time (Source) Location / / Volume Laterality 09/06/2017 12:40 09/06/2017 PM CDT 12:45 PM CDT Katia Guadarrama MD LAB BLOOD ORDERABLES Performing Organization Address City/State/ZIP Code Phon e Number [facility] [address] [place] [phone] (ABNORMAL) POCT Precision glucose (09/06/2017 11:46 AM CDT) P athologist Signature Glucose Blood, 139 (H) 70 - 100 09/06/2017 [facility] mg/dL 11:46 AM [facility] Comment: Meter ID: [id number] Specimen Anatomical Collection Method Collection Time Receive d Time (Source) Location / / Volume Laterality 09/06/2017 11:46 09/07/2017 AM CDT 12:27 AM CDT John Stanley MD LAB POINT OF CARE TEST DOCKE D DEVICE UNSOLICITED RESULTS Performing Organization Address City/[facility]/ZIP Code Phon e Number [facility] [address] [place] [address] (ABNORMAL) POCT Precision glucose (09/06/2017 7:18 AM CDT) P athologist Signature Glucose Blood, 139 (H) 70 - 100 09/06/2017 [facility] mg/dL 7:18 AM [facility] Comment: Meter ID: [id number] Specimen Anatomical Collection Method Collection Time Receive d Time (Source) Location / / Volume Laterality 09/06/2017 7:18 AM 8 CDT 12:27 AM CDT John Stanley MD LAB POINT OF CARE TEST DOCKE D DEVICE UNSOLICITED RESULTS Performing Organization Address City/[facility]/ZIP Code Phon e Number [facility] [address] [place] [address] Glomerular filtration rate (GFR) (09/06/2017 5:35 AM CDT) P athologist Signature GFR >60 09/06/2017 [facility] 6:08 AM [facility] >60 09/06/2017 [facility] [place] GFR 6:08 AM [facility] Comment: GFR calculated from serum creatinine v alue Chronic Kidney Disease less than 60 mL/m in/1.73 m2 Kidney Failure less than 15 mL/min/1.73 m2 Note: effective 08/02/06 IDMS-Traceable MDRD Study Equation used. Specimen Anatomical Collection Method Collection Time Receive d Time (Source) Location / / Volume Laterality 09/06/2017 5:35 AM 8 5:35 CDT AM T John Stanley MD LAB BLOOD ORDERABLES Performing Organization Address City/State/ZIP Code Phon e Number [facility] [address] [place] [address] (ABNORMAL) Basic metabolic panel (09/06/2017 5:35 AM CDT) Analysis Performed At Patho logist Time Signature Fasting? Unknown 09/06/2017 [facility] 5:58 AM [facility] Sodium 142 135 - 145 09/06/2017 [facility] mEq/L 6:06 AM [facility] Potassium 5.8 (H) 3.5 - 5.1 09/06/2017 [facility] mEq/L 6:15 AM [facility] Chloride 106 98 - 107 09/06/2017 [facility] mEq/L 6:05 AM [facility] CO2 28 22 - 29 09/06/2017 [facility] mmol/L 6:09 AM [facility] BUN 18 5 - 25 09/06/2017 [facility] mg/dL 6:09 AM [facility] Creatinine 0.8 0.4 - 1.2 09/06/2017 [facility] mg/dL 6:08 AM [facility] Glucose 108 (H) 70 - 100 09/06/2017 [facility] mg/dL 6:09 AM [facility] Calcium, 8.8 8.4 - 10.2 09/06/2017 [facility] Total,S mg/dL 6:15 AM [facility] Specimen Anatomical Collection Method Collection Time Receive d Time (Source) Location / / Volume Laterality 09/06/2017 5:35 AM 8 5:58 CDT AM CDT John Stanley MD LAB BLOOD ORDERABLES Performing Organization Address City/State/ZIP Code Phon e Number [facility] [address] [place] [address] (ABNORMAL) CBC ([employer]) (09/06/2017 5:35 AM CDT) P athologist Signature WBC 11.1 (H) 3.5 - 10.5 09/06/2017 [facility] K/uL 6:10 AM CDT [facility] RBC 3.44 (L) 3.90 - 09/06/2017 [facility] 5.00 M/uL 6:10 AM CDT [facility] Hemoglobin 10.7 (L) 12.0 - 09/06/2017 [facility] 15.5 g/dL 6:12 AM CDT [facility] Hematocrit 32.5 (L) 35.0 - 09/06/2017 [facility] 44.0 % 6:10 AM CDT [facility] MCV 94.4 81.6 - 09/06/2017 [facility] 98.3 fL 6:10 AM CDT [facility] MCH 31.0 26.0 - 09/06/2017 [facility] 32.0 pg 6:10 AM CDT [facility] MCHC 32.9 32.0 - 09/06/2017 [facility] 36.0 g/dL 6:10 AM CDT [facility] RDW 12.9 11.9 - 09/06/2017 [facility] 15.5 % 6:10 AM CDT [facility] Platelets 235 150 - 450 09/06/2017 [facility] K/uL 6:10 AM CDT [facility] Specimen Anatomical Collection Method Collection Time Receive d Time (Source) Location / / Volume Laterality 09/06/2017 5:35 AM 8 5:58 CDT AM CDT John Stanley MD LAB BLOOD ORDERABLES Performing Organization Address City/[facility]/ZIP Code Phon e Number [facility] [address] [place] [address] (ABNORMAL) POCT Precision glucose (09/05/2017 11:23 PM CDT) P athologist Signature Glucose Blood, 156 (H) 70 - 100 09/05/2017 [facility] mg/dL 11:23 PM CDT [facility] Comment: Meter ID: [id number] Specimen Anatomical Collection Method Collection Time Receive d Time (Source) Location / / Volume Laterality 09/05/2017 11:23 09/05/2017 PM CDT 11:56 PM CDT John Stanley MD LAB POINT OF CARE TEST DOCKE D DEVICE UNSOLICITED RESULTS Performing Organization Address City/[facility]/ZIP Code Phon e Number [facility] [address] [place] [phone] (ABNORMAL) POCT Precision glucose (09/05/2017 5:01 PM CDT) P athologist Signature Glucose Blood, 211 (H) 70 - 100 09/05/2017 [facility] mg/dL 5:01 PM CDT [facility] Comment: Meter ID: [id number] Specimen Anatomical Collection Method Collection Time Receive d Time (Source) Location / / Volume Laterality 09/05/2017 5:01 PM 8 CDT 11:56 PM CDT John Stanley MD LAB POINT OF CARE TEST DOCKE D DEVICE UNSOLICITED RESULTS Performing Organization Address City/[facility] e Number [facility] [address] [place] [phone] X-ray knee 1-2 views left (09/05/2017 11:18 AM CDT) Anatomical Region Laterality Modality Lower Extremities, Knee Left Radiographic Tana ging Specimen (Source) Anatomical Collection Method Collection Time Re ceived Time Location / / Volume Laterality 09/05/2017 11:18 AM CDT Impressions 09/05/2017 11:22 AM CDT IMPRESSION: Status post left total knee arthroplasty . Narrative 09/05/2017 11:22 AM CDT INDICATION: post op knee in PACU COMPARISON: Left knee radiographs May 24, 2017 FINDINGS: AP AND LATERAL VIEWS LEFT KNEE Left total knee arthroplasty has been pe rformed in the interval with no lucency surrounding the hardware to s uggest loosening. No fracture or dislocation. Swelling, drain and air are seen in anterior knee soft tissues compatible with recent surg tosha. Procedure Note Shima Hsu MD - 12/10/2017 INDICATION: post op knee in PACU COMPARISON: Left knee radiographs May 24, 2017 FINDINGS: AP AND LATERAL VIEWS LEFT KNEE Left total knee arthroplasty has been pe rformed in the interval with no lucency surrounding the hardware to s uggest loosening. No fracture or dislocation. Swelling, drain and air are seen in anterior knee soft tissues compatible with recent surg tosha. IMPRESSION: Status post left total knee arthroplasty . John Stanley MD IMG XR PROCEDURES (ABNORMAL) POCT Precision glucose (09/05/2017 11:00 AM CDT) P athologist Signature Glucose Blood, 150 (H) 70 - 100 09/05/2017 [facility] POC mg/dL 11:00 AM CDT [facility] Comment: Meter ID: [id number] Specimen Anatomical Collection Method Collection Time Receive d Time (Source) Location / / Volume Laterality 09/05/2017 11:00 09/05/2017 4:50 AM CDT PM CDT John Stanley MD LAB POINT OF CARE TEST DOCKE D DEVICE UNSOLICITED RESULTS Performing Organization Address City/State/ZIP Code Phon e Number [facility] [address] [place] [phone] (ABNORMAL) POCT Precision glucose (09/05/2017 9:24 AM CDT) P athologist Signature Glucose Blood, 136 (H) 70 - 100 09/05/2017 [facility] POC mg/dL 9:24 AM CDT [facility] Comment: Meter ID: [id number] Specimen Anatomical Collection Method Collection Time Receive d Time (Source) Location / / Volume Laterality 09/05/2017 9:24 AM 8 4:50 CDT PM CDT John Stanley MD LAB POINT OF CARE TEST DOCKE D DEVICE UNSOLICITED RESULTS Performing Organization Address City/State/ZIP Code Phon e Number [facility] [address] [place] [phone] (ABNORMAL) POCT Precision glucose (09/05/2017 7:32 AM CDT) P athologist Signature Glucose Blood, 118 (H) 70 - 100 09/05/2017 [facility] P[facility] mg/dL 7:32 AM CDT [facility] Comment: Meter ID: [id number] Specimen Anatomical Collection Method Collection Time Receive d Time (Source) Location / / Volume Laterality 09/05/2017 7:32 AM 8 2:00 CDT PM CDT John Stanley MD LAB POINT OF CARE TEST DOCKE D DEVICE UNSOLICITED RESULTS Performing Organization Address City/State/ZIP Code Phon e Number [facility] [address] [place] [phone] Type, screen, hold units (09/05/2017 6:45 AM CDT) P athologist Signature ABO/Rh O POS 09/05/2017 [facility] 7:13 AM [facility] Antibody NEG 09/05/2017 [facility] Screen 7:28 AM [facility] Specimen Anatomical Collection Method Collection Time Receive d Time (Source) Location / / Volume Laterality 09/05/2017 6:45 AM 8 6:47 CDT AM CDT John Stanley MD LAB BLOOD BANK TEST ORDERABL ES Performing Organization Address City/State/ZIP Code Phon e Number [facility] [address] [place] [phone] documented in this encounter Visit Diagnoses Diagnosis Primary osteoarthritis of left knee Type 2 diabetes mellitus without complic ations (HCC) Chronic obstructive pulmonary disease (H CC) Essential (primary) hypertension Unspecified essential hypertension Atherosclerotic heart disease of cheesh-na coronary artery without angina pectoris Migraine without status migrainosus, not intractable Gastro-esophageal reflux disease without esophagitis Cigarette nicotine dependence, uncomplic ated Irritable bowel syndrome without diarrhe a Chronic pain syndrome Major depressive disorder, single episod e Major depressive disorder, single episod e, unspecified Chronic viral hepatitis C (HCC) Chronic hepatitis C without mention of h epatic coma intermediate current use of insulin (HCC) 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
--- OUTSIDE RECORDS SUMMARY | 2021-12-09 21:34 | XMS_ITS | Encounter Summary ---
:1950 Author Organization [facility] Address [address] [place] [address] Care Team Providers Name Role Phone Sebastian Griffiths MD Primary Care Provider Encounter Details Date Type Department Care Team Description 12/15/2017 Abstract SE Family Med Sebastian Griffiths MD [address] [facility] [address] [place] [address] [place] [address] [phone] (Wo rk) Social History Tobacco Use Types [...] do you attend jew or Never 2020 roman catholic services? Do [...] Telemedicine Family Medicine Sebastian Griffiths MD [address] [place], [place] [address] (Wo rk) documented as of this encounter Visit Diagnoses Not on filedocumented in this encounter Care Teams Anglesmith Relationship Specialty Start Date End Date Sebastian Griffiths MD PCP - General 10/24/17 [address] [place] [address] documented as of this encounter
--- OUTSIDE RECORDS SUMMARY | 2021-12-09 21:34 | XMS_ITS | Encounter Summary ---
:[address] [facility] Address [address] [place] [address] Care Team Providers Name Role Phone Sebastian Griffiths MD Primary Care Provider Encounter Details Date Type Department Care Team Description 03/16/2018 Telephone [facility] Benito Stubbs RN [address] [facility] [address] [place] [address] [place] [address] Social History Tobacco Use Types Packs/Day Years [...] Telephone Encounter - Benito Stubbs RN - 03/16/2018 9:13 AM CST Pts visiting nurse Rehana calls to inform pts bp 170 and h/a. Give tylenol evaluate afternoon. AED if necessary. ICAL CARE NURSE documented in this encounter Plan of Treatment Upcoming Encounters Date Type Specialty Care Team Description 01/18/2022 Telemedicine Family Medicine Sebastian Griffiths MD [address] [place], [place] [address] (Wo rk) documented as of this encounter Visit Diagnoses Not on filedocumented in this encounter Care Teams Lingo Cleaner Relationship Specialty Start Date End Date Sebastian Griffiths MD PCP - General 10/24/17 [address] [place] [address] documented as of this encounter
--- OUTSIDE RECORDS SUMMARY | 2021-12-09 21:34 | XMS_ITS | Encounter Summary ---
:1950 Author Organization [facility] Address [address] [place] [address] Care Team Providers Name Role Phone Sebastian Griffiths MD Primary Care Provider Reason for Visit Reason Onset Date Comments Med Refill 12/20/2017 Encounter Details Date Type Department Care Team Description 12/20/2017 Refill SE Family Med Sebastian Griffiths MD Essential hypertension [address] [facility] [address] [facility] (Primary Dx) [place] [address] [place] [address] [phone] (Wo rk) Social History Tobacco Use Types [...] do you attend latter-day or Never 2020 shinto services? Do you [...] Telephone Encounter - Cat Adair MA - 12/20/2017 1:06 PM CDT Last RX: 06/29/2017 # 30 Refills: 5 Patient has upcoming appointment: 02/01/2018. documented in this encounter Plan of Treatment Upcoming Encounters Date Type Specialty Care Team Description 01/18/2022 Telemedicine Family Medicine Sebastian Griffiths MD [address] [place], [place] [address] (Wo rk) documented as of this encounter Visit Diagnoses Diagnosis Essential hypertension - Primary Unspecified essential hypertension documented in this encounter Care Teams Presentation Manager Relationship Specialty Start Date End Date Sebastian Griffiths MD PCP - General 10/24/17 [address] [place], [place] [id number] documented as of this encounter
--- OUTSIDE RECORDS SUMMARY | 2021-12-09 21:34 | XMS_ITS | Encounter Summary ---
:1950 Author Organization [facility] Address [address] [place] [address] Care Team Providers Name Role Phone Sebastian Griffiths MD Primary Care Provider Encounter Details Date Type Department Care Team Description 01/25/2018 Abstract SE Family Med Sebastian Griffiths MD [address] [facility] [address] [place] [address] [place] [address] [phone] (Wo rk) Social History Tobacco Use Types [...] do you attend pentecostalism or Never 2020 yazidism services? Do you [...] Telemedicine Family Medicine Sebastian Griffiths MD [address] [place], [place] [address] (Wo rk) documented as of this encounter Visit Diagnoses Not on filedocumented in this encounter Care Teams Housekeeping/Laundry Supervisor Relationship Specialty Start Date End Date Sebastian Griffiths MD PCP - General 10/24/17 [address] [place] [address] documented as of this encounter
--- OUTSIDE RECORDS SUMMARY | 2021-12-09 21:34 | XMS_ITS | Encounter Summary ---
:1950 Author Organization Address [address] [place] [address] Care Team Providers Name Role Phone Sebastian Griffiths MD Primary Care Provider Reason for Visit Reason Comments Shoulder Pain Left, fell a week ago. Encounter Details Date Type Department Care Team Description 03/27/2018 Office Visit [facility] Sebastian Griffiths, Acute pain of right shoulder (Primary Dx); [address] [facility] Insomnia, unspecified type; [place] [address] Hepatitis C virus infection without hepatic coma, unspecified chronicity; [phone] SE Controlled type 2 diabetes mellitus with out complication, without long-term current use of insulin (HCC); [place], [place] Breast cancer screening [id number] Social History Tobacco Use Types Packs/Day [...] do you attend religious or Never 2020 pentecostalism services? Do you [...] Sign Reading Time Taken Comments Blood Pressure 112/70 03/27/2018 10:57 AM SPECIAL DELIVERY CLERK Pulse 121 03/27/2018 10:57 AM SPECIAL DELIVERY CLERK Temperature 36.2 ??C (97.1 ??F) 03/27/2018 10:57 AM SPECIAL DELIVERY CLERK Respiratory Rate 16 03/27/2018 10:57 AM SPECIAL DELIVERY CLERK Oxygen Saturation 96% 03/27/2018 10:57 AM SPECIAL DELIVERY CLERK Inhaled Oxygen Concentration - - Weight 101 kg (222 lb 0.1 oz) 03/27/2018 10:57 AM SPECIAL DELIVERY CLERK Height 165 cm (5' 4.96) 03/27/2018 10:57 AM SPECIAL DELIVERY CLERK Body Mass Index 36.99 03/27/2018 10:57 AM SPECIAL DELIVERY CLERK documented in this encounter Patient Instructions Patient InstructionsSebastian Griffiths MD - 03/27/2018 11:20 AM CST May use the topical gel or methocarbamol for the shoulder muscle pain. Zolpidem 5mg nightly for sleep. She was given a sling. She should wear that for the next 2 weeks. All labs were reordered and when she comes in for another appointment on the of this month she will come in fasting to get those done. Results to be sent. Feet: Monofilament testing negative. IAL DELIVERY CLERK documented in this encounter Progress Notes Benito Stubbs RN - 03/27/2018 11:20 AM CST The pt sits with eyes closed, denies other injury from fall of a week ago. IAL DELIVERY CLERK Sebastian Griffiths MD - 03/27/2018 11:20 AM CST Subjective Patient ID: Rena Fan is a 68 y.o. female. Chief Complaint Patient presents with ??? Shoulder Pain Left, fell a week ago. HPI Fell on ice one week ago, on left shoulder. Still has pain. Had surgery many years ago on that shoulder. Denies any numbness or tingling. She states that she like to have me start her on narcotic medications again for her pain. She does not think her recent knee surgery helped so much with her knee pain. She also believes her lorazepam is not doing its job controlling her anxiety. She is currently on 1 mg 3 times a day and would like to go to 2 mg 3 times a day. She states her blood sugars been running well. She states she never received her zolpidem prescription and would like that for sleep. The following portions of the patient's chart were reviewed in this encounter and updated as appropriate: Tobacco Allergies Meds Problems Med Hx Surg Hx Fam Hx Soc Hx Review of Systems Denies any numbness or tingling in her hands. She does have trouble sleeping because of this new pain. Objective Visit Vitals BP 112/70 Pulse (!) 121 Temp 36.2 ??C (97.1 ??F) (Temporal) Resp 16 Ht 1.65 m (5' 4.96) Wt 101 kg (222 lb 0.1 oz) SpO2 96% BMI 36.99 kg/m?? Smoking Status Current Every Day Smoker BSA 2.15 m?? Physical Exam Sleepy female in no acute distress. Is examined in her wheelchair. Examination of the right shoulder shows no bruising or swelling. Diffuse tenderness around the shoulder area and she points to the lateral aspect of the shoulder as the primary source of pain. No clavicular tenderness on that side. Casing Machine Operator strength is equal. Feet: Monofilament testing negative. Shoulder x-ray results: No acute injury Assessment/Plan Diagnoses and all orders for this visit: Acute pain of right shoulder - X-ray Shoulder 2+ Views Right; Future - diclofenac (VOLTAREN) 1 % topical gel; Apply topically 2 (two) times a day To affected shoulder pain - methocarbamol (ROBAXIN) 500 MG tablet; Take 1 tablet (500 mg total) by mouth 2 (two) times a day if needed for muscle spasms She will be provided with a sling to wear at least over the next 2 weeks.. Insomnia, unspecified type - zolpidem (AMBIEN) 5 MG tablet; Take 1 tablet (5 mg total) by mouth at night if needed for sleep Hepatitis C virus infection without hepatic coma, unspecified chronicity - ALT; Future Controlled type 2 diabetes mellitus without complication, without long-term current use of insulin - Lipid panel; Future - Microalbumin/Creatinine Ratio; Future - Hemoglobin A1c; Future - Basic metabolic panel; Future - Vitamin B12; Future - TSH; Future Breast cancer screening - Mammogram breast screening bilateral; Future IAL DELIVERY CLERK documented in this encounter Plan of Treatment Upcoming Encounters Date Type Specialty Care Team Description 01/18/2022 Telemedicine Family Medicine Sebastian Griffiths MD [address] [place], [place] [address] (Wo rk) documented as of this encounter Procedures Procedure Name Priority Date/Time Associated Diagnosis Comme nts XR SHOULDER 2+ STAT 03/27/2018 12:17 PM Acute pain of right Results for this VIEWS RIGHT SPECIAL DELIVERY CLERK shoulder procedure are i n the results section. documented in this encounter Results Microalbumin/Creatinine Ratio (06/26/2018 12:40 PM CDT) athologist Signature Microalbumin,m <7.0 0.0 - 16.6 06/26/2018 [facility] g/day mg/L 2:59 PM CDT [facility] Comment: . Creatinine, Urine 60 mg/dL 06/26/2018 2:59 PM T [facility] Comment: No established reference range. Microalb/Creat Ratio see below 0 - 24 mg/g 06/26/2018 2:59 P [facility] Comment: Microalbumin value outside of detectable range. Unable to report Microalbumin/Creatinine ratio. Co nsider 24-hour collection if clinically indicated. Specimen Anatomical Collection Method Collection Time Receive d Time (Source) Location / / Volume Laterality Urine 06/26/2018 12:40 06/26/2018 2:02 PM CDT PM CDT Sebastian Griffiths MD LAB URINE ORDERABLES Performing Organization Address City/[facility]/ZIP Code Phon e Number [facility] [address] [place] [address] ALT (06/26/2018 12:28 PM CDT) athologist Signature ALT (SGPT) 30 0 - 34 U/L 06/26/2018 [facility] 3:24 PM CDT [facility] Specimen Anatomical Collection Method Collection Time Receive d Time (Source) Location / / Volume Laterality Blood (Blood, 06/26/2018 12:28 06/26/2018 2:02 Venous) PM CDT PM CDT Sebastian Griffiths MD LAB BLOOD ORDERABLES Performing Organization Address City/[facility] Phon e Number [facility] [address] [place] [address] (ABNORMAL) Basic metabolic panel (06/26/2018 12:28 PM CDT) P athologist Signature Sodium 140 135 - 145 06/26/2018 [facility] mEq/L 3:[address] [facility] Potassium 3.8 3.5 - 5.1 06/26/2018 [facility] mEq/L 3:[address] [facility] Chloride 102 98 - 107 06/26/2018 [facility] mEq/L 3:24 PM [facility] CO2 32 (H) 22 - 29 06/26/2018 [facility] mmol/L 3:24 PM [facility] Creatinine 0.7 0.4 - 1.2 06/26/2018 [facility] mg/dL 3:24 PM [facility] BUN 16 5 - 25 06/26/2018 [facility] mg/dL 3:24 PM [facility] Glucose 87 70 - 100 06/26/2018 [facility] mg/dL 3:24 PM [facility] Calcium, 9.5 8.4 - 10.2 06/26/2018 [facility] Total,S mg/dL 3:24 PM [facility] Fasting? Yes 06/26/2018 [facility] 12:28 PM [facility] Specimen Anatomical Collection Method Collection Time Receive d Time (Source) Location / / Volume Laterality Blood 06/26/2018 12:28 06/26/2018 2:02 PM CDT PM CDT Sebastian Griffiths MD LAB BLOOD ORDERABLES Performing Organization Address City/State/ZIP Code Phon e Number [facility] [address] [place] [address] (ABNORMAL) Hemoglobin A1c (06/26/2018 12:28 PM CDT) Analysis Performed At Patho logist Time Signature Hemoglobin A1C 5.9 (H) 4.0 - 5.6 06/26/2018 [facility] % A1C 3:[address] [facility] Comment: Reference Range 4.0-5.6% is [...] Organization Address City/State/ZIP Code Phon e Number [facility] [address] [place] [address] (ABNORMAL) Lipid panel (06/26/2018 12:28 PM CDT) athologist Signature Cholesterol 159 0 - 199 06/26/2018 [facility] mg/dL 3:24 PM CDT [facility] Comment: Recommended by National Cholesterol Education Program (ATP III) -------- Cholesterol Ranges -------- <200 ? Desirable 200-239 ? Borderline high >=240 ? High Triglycerides 238 (A) 0 - 149 mg/dL 06/26/2018 3:24 PM CDT [facility] Comment: -------- TRIG Ranges -------- <150 ?Normal 150-199 ? Borderline high 200-499 ? High >=500 ? Very high HDL 53 40 - 60 mg/dL 06/26/2018 3:24 PM CDT [facility] Comment: -------- HDL Ranges -------- <40 ?Low 40-59 ?Normal >=60 ? Optimal LDL Calculated 58 0 - 99 mg/dL 06/26/2018 3:24 PM CDT [facility] Comment: -------- LDL Ranges -------- <100 ? Optimal 100-129 ?Near optimal/above op timal 130-159 ?Borderline high 160-189 ?High >=190 ?Very high Specimen Anatomical Collection Method Collection Time Receive d Time (Source) Location / / Volume Laterality Blood 06/26/2018 12:28 06/26/2018 2:02 PM CDT PM CDT Sebastian Griffiths MD LAB BLOOD ORDERABLES Performing Organization Address City/State/ZIP Code Phon e Number [facility] [address] [place] [address] X-ray Shoulder 2+ Views Right (03/27/2018 12:17 PM SPECIAL DELIVERY CLERK) Anatomical Region Laterality Modality Upper Extremities, Shoulder Right Radiographic Imaging Specimen (Source) Anatomical Collection Method Collection Time Re ceived Time Location / / Volume Laterality 03/27/2018 12:17 PM SPECIAL DELIVERY CLERK Impressions 03/27/2018 12:53 PM SPECIAL DELIVERY CLERK IMPRESSION: Minimal degenerative arthritis. Narrative 03/27/2018 12:53 PM SPECIAL DELIVERY CLERK INDICATION: Shoulder pain, initial exam COMPARISON: 08/10/2016 FINDINGS: 5 views. No acute fracture dislocation. ??Minimal degenerative changes of the right acromioclavicular and glenohumeral joint s. ??No abnormal periarticular soft tissue calcifications. Procedure Note Warren Dixon MD - 03/27/2018Form atting of this note might be different from the original. INDICATION: Shoulder pain, initial exam COMPARISON: 08/10/2016 FINDINGS: 5 views. No acute fracture dislocation. Minimal d egenerative changes of the right acromioclavicular and glenohumeral joint s. No abnormal periarticular soft tissue calcifications. IMPRESSION: Minimal degenerative arthritis. Sebastian Griffiths MD IMG XR PROCEDURES documented in this encounter Visit Diagnoses Diagnosis Acute pain of right shoulder - Primary Insomnia, unspecified type Hepatitis C virus infection without hepa tic coma, unspecified chronicity Controlled type 2 diabetes mellitus with out complication, without long-term current use of insulin (HCC) Breast cancer screening Breast screening, unspecified documented in this encounter Care Teams Financial Foundations Associate Relationship Specialty Start Date End Date Sebastian Griffiths MD PCP - General 10/24/[address] [place] [id number] documented as of this encounter
--- OUTSIDE RECORDS SUMMARY | 2021-12-09 21:34 | XMS_ITS | Encounter Summary ---
:1950 Author Organization [facility] Address [address] [place] [address] Care Team Providers Name Role Phone Sebastian Griffiths MD Primary Care Provider Reason for Visit Reason Comments Med Refill Encounter Details Date Type Department Care Team Description 03/16/2018 Refill SE Family Med Sebastian Griffiths MD Hypertension, essential, [address] benign (Primary Dx) [place] [address] [place] [address] [phone] (Wo rk) Social History Tobacco Use Types [...] do you attend scientologist or Never 2020 christianity services? Do you [...] this encounter Miscellaneous Notes Telephone Encounter - Vandana Lane LPN - 03/22/2018 9:01 AM CST Amlodipine 5 mg tablet Take 1 tablet by mouth daily. Last Written: 03/07/17 Quantity: 30 tablets Refills: 12 02/01/18 BP: 112/74, pulse 96 09/07/17 Comprehensive Metabolic Panel, CBC 06/28/17 Microalbumin/Creatinine Ratio Last appointment was on 02/01/18 with plan to follow up in 6 months. Next appointment is scheduled for 03/27/18. NIGHT STOCKER documented in this encounter Plan of Treatment Upcoming Encounters Date Type Specialty Care Team Description 01/18/2022 Telemedicine Family Medicine Sebastian Griffiths MD [address] [place], [place] [address] (Wo rk) documented as of this encounter Visit Diagnoses Diagnosis Hypertension, essential, benign - Primar y Essential hypertension, benign documented in this encounter Care Teams Title I Math Tutor Relationship Specialty Start Date End Date Sebastian Griffiths MD PCP - General 10/24/17 [address] [place], [place] [id number] documented as of this encounter
--- OUTSIDE RECORDS SUMMARY | 2021-12-09 21:34 | XMS_ITS | Encounter Summary ---
:1950 Author Organization [facility] Address [address] [place] [address] Care Team Providers Name Role Phone Sebastian Griffiths MD Primary Care Provider Reason for Visit Reason Onset Date Comments Med Refill 12/27/2017 Encounter Details Date Type Department Care Team Description 12/27/2017 Refill SE Family Med Sebastian Griffiths MD Generalized anxiety [address] [facility] [address] disorder (Primary Dx) [place] [address] [place] [address] [phone] (Wo rk) Social History Tobacco Use Types [...] do you attend jain or Never 2020 mandaeism services? Do you [...] Telephone Encounter - Tamie Shore MA - 12/27/2017 7:29 AM CDT Ativan (lorazepam) 1 mg tablet, oral, 1, TID Last Prescribed: 11/17/2017 Prescriber: Sebastian Griffiths [facility]: [facility] Quantity: 90 Refills: 0 Instructions: Keep doses at least 4 hours apart. May fill 11/24/17. For anxiety Chronic: Y Pt was last seen for SH&P on 08/21/2017. Pt has an upcoming appointment scheduled on 02/01/2018. Please advise, thank you. documented in this encounter Plan of Treatment Upcoming Encounters Date Type Specialty Care Team Description 01/18/2022 Telemedicine Family Medicine Sebastian Griffiths MD [address] [place], [place] [address] (Wo rk) documented as of this encounter Visit Diagnoses Diagnosis Generalized anxiety disorder - Primary documented in this encounter Additional Health Concerns Infection Onset Date Last Indicated Resolved Time COVID-19 Rule Out 10/27/2019 10/27/2019 10/27/2019 11: 08 PM CDT documented as of this encounter Care Teams Elementary Educator Relationship Specialty Start Date End Date Sebastian Griffiths MD PCP - General 10/24/17 [address] [place], [place] [address] documented as of this encounter
--- OUTSIDE RECORDS SUMMARY | 2021-12-09 21:34 | XMS_ITS | Encounter Summary ---
:1950 Author Organization Address [address] [place] [address] Care Team Providers Name Role Phone Sebastian Griffiths MD Primary Care Provider Encounter Details Date Type Department Care Team Description 03/29/2018 Telephone [facility] Sebastian Griffiths MD [address] [facility] [address] [place] [address] [place] [address] [phone] (Wo rk) Social History Tobacco Use Types [...] do you attend gnosticism or Never 2020 bahai services? Do you [...] Telephone Encounter - Tae Livingston LPN - 03/29/2018 9:10 AM CST Received a call from Rehana (RN, with [facility]) stating that patient had recently been seen by Dr. Griffiths regarding her arm pain and Rehana would like to know what Dr. Griffiths'splan was regarding the at home treatment of her arm pain. Rehana was notified that there is no verbal RADHA on file to disclose that information over the phone to her however there is a current release of information for medical records and that we could fax that information to her. Patient's visit summary from 03/27/2018 as well as a blank RADHA for verbal communication form was faxed to Rehana at fax number [phone]. [employer] documented in this encounter Plan of Treatment Upcoming Encounters Date Type Specialty Care Team Description 01/18/2022 Telemedicine Family Medicine Sebastian Griffiths MD [address] [place], [place] [address] (Wo rk) documented as of this encounter Visit Diagnoses Not on filedocumented in this encounter Care Teams Pricing Actuary Relationship Specialty Start Date End Date Sebastian Griffiths MD PCP - General 10/24/17 [address] [place], [place] [id number] documented as of this encounter
--- OUTSIDE RECORDS SUMMARY | 2021-12-09 21:35 | XMS_ITS | Encounter Summary ---
:1950 Author Organization [facility] Address [address] [place] [id number] Care Team Providers Name Role Phone Unavailable Primary Care Provider Unavailable Encounter Details Date Type Department Care Team Description 12/25/2012 Emergency [facility] Emergency Call, Nimo souza PA-C Low back pain; Room [address] [place] Overexertion from sudden str enuous movement; [address] [facility] Place of occurrence, [place] [address] [place] [phone] Social History Tobacco Use Types Packs/Day [...] do you attend yazidism or Never 2020 denominational services? Do you [...] Telemedicine Family Medicine Sebastian Griffiths MD [address] [place] [address] (Wo rk) documented as of this encounter Visit Diagnoses Diagnosis Low back pain Lumbago Overexertion from sudden strenuous movem ent Place of occurrence, street and highway documented in this encounter
--- OUTSIDE RECORDS SUMMARY | 2021-12-09 21:35 | XMS_ITS | Encounter Summary ---
:[address] [facility] Address [address] [place] [address] Care Team Providers Name Role Phone Unavailable Primary Care Provider Unavailable Encounter Details Date Type Department Care Team Description 07/11/[address] [facility] Emergency Bora Anton MD Othe r sprain of right shoulder joint, initial encounter; Room Contusion of right front wal l of thorax; [address] [place] [address] Social History Tobacco Use Types Packs/Day Years [...] do you attend latter-day or Never 2020 latter day services? Do [...] Sig Dispensed Refills Start Date End Date Mis. Devices glucometer strips See 0 10/29/2015 (RECONSTITUBE) [facility] Instructions, testing strips-please fill brand covered by insurance., 100 each, 5 Refill(s) Misc. Devices flex pen needles See 0 10/08/2015 (RECONSTITUBE) misc Instructions, flex pen needles, 100 each, 5 Refill(s) Misc. Devices lancet See 0 10/08/2015 (RECONSTITUBE) mis Instructions, lancets, 100 each, 5 Refill(s) Misc. Devices glucometer See 0 10/08/2015 (RECONSTITUBE) mis Instructions, glucose monitor, 1 each, 0 Refill(s) dorzolamide-timolol Administer 1 drop into 0 0409/201606/14/2018 (COSOPT) 22.3-6.8 MG/ML both eyes 2 (two) ophthalmic solution times a day furosemide (LASIX) 40 0 03/03/2016 MG tablet latanoprost (XALATAN) 0 03/03/2016 0.005 % ophthalmic solution documented as of this encounter Plan of Treatment Upcoming Encounters Date Type Specialty Care Team Description 01/18/2022 Telemedicine Family Medicine Sebastian Griffiths MD [address] [place] [address] (Wo rk) documented as of this encounter Procedures Procedure Name Priority Date/Time Associated Comments Diagnosis XR SHOULDER 2+ VIEWS STAT 07/11/2016 10:00 Res ults for this RIGHT PM CDT procedure are i n the results section. XR RIBS 2 VIEWS RIGHT STAT 07/11/2016 10:00 Re sults for this WITH CHEST PM CDT procedure are i n ANTEROPOSTERIOR the results section. documented in this encounter Results X-ray shoulder 2+ views right (07/11/2016 10:00 PM CDT) Anatomical Region Laterality Modality Upper Extremities, Shoulder Right Radiographic Imaging Specimen (Source) Anatomical Collection Method Collection Time Re ceived Time Location / / Volume Laterality 07/11/2016 10:00 PM CDT Narrative 07/12/2016 10:47 AM CDT Clinical History fall, right shoulder pain Comparison 01/07/2015. Findings No fracture or malalignment. ??Degenerat gm changes greater tuberosity. Impression No fracture. Procedure Note Edward Sherwood MD - 12/10/2017Formatt ing of this note might be different from the original. Clinical History fall, right shoulder pain Comparison 01/07/2015. Findings No fracture or malalignment. Degenerativ e changes greater tuberosity. Impression No fracture. Bora Anton MD IMG XR PROCEDURES X-ray ribs 2 views right with chest anteroposterior (07/11/2016 10:00 PM CDT) Anatomical Region Laterality Modality Body Right Radiographic Imaging Specimen (Source) Anatomical Collection Method Collection Time Re ceived Time Location / / Volume Laterality 07/11/2016 10:00 PM CDT Narrative 07/12/2016 10:46 AM CDT Clinical History right rib pain, fall Comparison 01/07/2015. Findings Vertebroplasty changes. ??Old right post erior rib fractures are present. ??No new fracture. ??No pneumot horax. ??Tortuosity aorta. Cardiac silhouette upper limits normal. ??Lungs clear. Impression No acute rib fracture. ??No acute cardio pulmonary disease. Procedure Note Edward Sherwood MD - 12/10/2017Formatt ing of this note might be different from the original. Clinical History right rib pain, fall Comparison 01/07/2015. Findings Vertebroplasty changes. Old right weight calculator ior rib fractures are present. No new fracture. No pneumothora x. Tortuosity aorta. Cardiac silhouette upper limits normal. Lungs clear. Impression No acute rib fracture. No acute cardiopu lmonary disease. Bora Anton MD IMG XR PROCEDURES documented in this encounter Visit Diagnoses Diagnosis Other sprain of right shoulder joint, in itial encounter Contusion of right front wall of thorax Fall Unspecified fall documented in this encounter
--- OUTSIDE RECORDS SUMMARY | 2021-12-09 21:35 | XMS_ITS | Encounter Summary ---
:[address] [facility] Address [address] [place] [address] Care Team Providers Name Role Phone Unavailable Primary Care Provider Unavailable Encounter Details Date Type Department Care Team Description 09/26/2014 Emergency [facility] Emergency Edward Mccoy, Contusion of chest wall; Room MD Fall; [address] [facility] Place of occurrence, [place], [place] [address] [phone] Social History Tobacco Use Types Packs/Day Years [...] do you attend scientologist or Never 2020 jain services? Do you [...] Telemedicine Family Medicine Sebastian Griffiths MD [address] [place] [phone] (Wo rk) documented as of this encounter Visit Diagnoses Diagnosis Contusion of chest wall Fall Unspecified fall Place of occurrence, home documented in this encounter
--- OUTSIDE RECORDS SUMMARY | 2021-12-09 21:35 | XMS_ITS | Encounter Summary ---
:1950 Author Organization [facility] Address [address] [place] [address] Care Team Providers Name Role Phone Unavailable Primary Care Provider Unavailable Encounter Details Date Type Department Care Team Description 02/07/2013 Emergency [facility] Emergency Bora Anton MD Neck sprain and strain; Room Backache; [address] Fall; [place] [address] Place of occurrence, home [phone] Social History Tobacco Use Types Packs/Day Years [...] do you attend islam or Never 2020 buddhism services? Do you [...] Telemedicine Family Medicine Sebastian Griffiths MD [address] [place] [address] (Wo rk) documented as of this encounter Procedures Procedure Name Priority Date/Time Associated Diagnosis Comme nts CT LUMBAR SPINE WO STAT 02/07/2013 10:07 AM Re sults for this CONTRAST DERMATOLOGY PHYSICIAN ASSISTANT procedure are i n the results section. CT CERVICAL SPINE STAT 02/07/2013 10:06 AM Res ults for this WO CONTRAST DERMATOLOGY PHYSICIAN ASSISTANT procedure are i n the results section. documented in this encounter Results CT lumbar spine wo IV contrast (02/07/2013 10:07 AM DERMATOLOGY PHYSICIAN ASSISTANT) Anatomical Region Laterality Modality Spine, L-spine Computed Tomography Specimen (Source) Anatomical Collection Method Collection Time Re ceived Time Location / / Volume Laterality 02/07/2013 10:07 AM DERMATOLOGY PHYSICIAN ASSISTANT Narrative 02/07/2013 10:21 AM DERMATOLOGY PHYSICIAN ASSISTANT Clinical History fall, lumbar back pain Comparison Plain radiographs of the lumbosacral [facility] dated 12/08/2012. Technique Contiguous helical images were obtained in the axial plane. ??Coronal and sagittal reformatted images were per formed. ??No contrast material was administered. Findings The overall bone density is decreased. M ild dextroscoliosis. Again noted is compression deformity of the L1 vertebral body with evidence of previous vertebroplasty procedure. ?? Grossly, this is without significant change. ??No acute fracture is identified. ?? Moderate-severe multilevel intervertebra l and bilateral facet degenerative changes are noted, most sig nificant at L4-L5 and L5-S1. ?? No spondylolysis or significant spondylo listhesis. ??No significant compromise of the central spinal canal. ??Surgical clips are present within the right upper abdomen consisten t with previous cholecystectomy. Atherosclerotic calcifi cation of the abdominal aorta. ?? Impression No acute abnormality identified. ??Chron ic compression fracture of the L1 vertebral body with evidence of previ ous vertebroplasty procedure. ?? Other chronic findings as above. Procedure Note Warren Dixon MD - 12/10/2017Form atting of this note might be different from the original. Clinical History fall, lumbar back pain Comparison Plain radiographs of the lumbosacral spi ut dated 12/08/2012. Technique Contiguous helical images were obtained in the axial plane. Coronal and sagittal reformatted images were per formed. No contrast material was administered. Findings The overall bone density is decreased. M ild dextroscoliosis. Again noted is compression deformity of the L1 vertebral body with evidence of previous vertebroplasty procedure. Gr ossly, this is without significant change. No acute fracture is identified. Moderate-severe multilevel intervertebra l and bilateral facet degenerative changes are noted, most sig nificant at L4-L5 and L5-S1. No spondylolysis or significant spondylo listhesis. No significant compromise of the central spinal canal. Surgical clips are present within the right upper abdomen consisten t with previous cholecystectomy. Atherosclerotic calcifi cation of the abdominal aorta. Impression No acute abnormality identified. Chronic compression fracture of the L1 vertebral body with evidence of previ ous vertebroplasty procedure. Other chronic findings as above. Bora Anton MD IMG CT PROCEDURES CT cervical spine wo IV contrast (02/07/2013 10:06 AM DERMATOLOGY PHYSICIAN ASSISTANT) Anatomical Region Laterality Modality Spine, C-spine Computed Tomography Specimen (Source) Anatomical Collection Method Collection Time Re ceived Time Location / / Volume Laterality 02/07/2013 10:06 AM DERMATOLOGY PHYSICIAN ASSISTANT Narrative 02/07/2013 10:11 AM DERMATOLOGY PHYSICIAN ASSISTANT Clinical History fall, neck pain Comparison None available. Technique Contiguous helical images were obtained in the axial plane. ??Coronal and sagittal reformatted images were per formed. Findings No acute fracture or spondylolisthesis. ??Mild-moderate multilevel intervertebral and bilateral facet degen erative changes, most significant at C3-4 through C6-7. ??The vertebral body heights are well maintained. ??The prevertebral soft tissue structures are within normal limits. ??No significant compromi se of the central spinal canal. ??The atlantoaxial relationship i s unremarkable. ??There is minimal dextroscoliosis. Impression ? 1. No acute fracture identified. ? 2. Mild-moderate multilevel inter vertebral and bilateral facet degenerative changes. ? 3. If clinical concern for spinal cord or nerve root injury persists, consider MRI for further evalu ation. Procedure Note Warren Dixon MD - 12/10/2017Form atting of this note might be different from the original. Clinical History fall, neck pain Comparison None available. Technique Contiguous helical images were obtained in the axial plane. Coronal and sagittal reformatted images were per formed. Findings No acute fracture or spondylolisthesis. Mild-moderate multilevel intervertebral and bilateral facet degen erative changes, most significant at C3-4 through C6-7. The ve rtebral body heights are well maintained. The prevertebral soft t issue structures are within normal limits. No significant compromise of the central spinal canal. The atlantoaxial relationship is unremarkable. There is minimal dextroscoliosis. Impression 1. No acute fracture identified. 2. Mild-moderate multilevel interverteb ral and bilateral facet degenerative changes. 3. If clinical concern for spinal cord or nerve root injury persists, consider MRI for further evalu ation. Bora Anton MD IMG CT PROCEDURES documented in this encounter Visit Diagnoses Diagnosis Neck sprain and strain Backache Unspecified backache Fall Unspecified fall Place of occurrence, home documented in this encounter
--- OUTSIDE RECORDS SUMMARY | 2021-12-09 21:35 | XMS_ITS | Encounter Summary ---
:1950 Author Organization [facility] Address [address] [place] [address] Care Team Providers Name Role Phone Unavailable Primary Care Provider Unavailable Encounter Details Date Type Department Care Team Description 01/07/2015 - Hospital Encounter [facility] Venkata Yeboah R, Multipl e closed fractures of ribs of right side; 01/09/2015 Medical/Surgical MD Concussion with loss of cons ciousness; [address] Fall on same level from slip ping, tripping and stumbling with subsequent striking against furniture, initial encounter; [place] [address] [facility]stitutional [facility] of occurrence of external cause; [phone] Activity involv ing walking, marching, or hiking; Other external cause status; Viral hepatitis C without hepatic coma; Other psychoact gm substance abuse, uncomplicated (HCC); Essential (prim sudhakar) hypertension; Uncomplicated a sthma; Strain of muscl e, fascia and tendon at neck level, initial encounter; Major depressiv e disorder, single episode; Anxiety disorde r; Glaucoma; Type 2 diabetes mellitus without complications (HCC); Cigarette nicot ine dependence, uncomplicated Social History Tobacco Use Types Packs/Day Years [...] do you attend shinto or Never 2020 jain services? Do you [...] Telemedicine Family Medicine Sebastian Griffiths MD [address] [phone] (Wo rk) documented as of this encounter Procedures Procedure Name Priority Date/Time Associated Comments Diagnosis OXYCODONE CONF Routine 01/09/2015 12:45 Results f or this AM CDT procedure are i n the results section. OPIATE CONFIRMATION Routine 01/09/2015 12:45 Resu lts for this ([facility]) AM CDT procedure are i n the results section. METHAMPHETAMINE CONF Routine 01/09/2015 12:45 Res ults for this AM CDT procedure are i n the results section. COCAINE CONFIRMATION Routine 01/09/2015 12:45 Res ults for this ([facility]) AM CDT procedure are i n the results section. BENZODIAZEPINE CONF Routine 01/09/2015 12:45 Resu lts for this AM CDT procedure are i n the results section. RAPID DRUG SCREEN, URINE Routine 01/09/2015 12:45 Results for this AM CDT procedure are i n the results section. THC (MARIJUANA), URINE, Routine 01/09/2015 12:45 Results for this CONFIRMATION AM CDT procedure are i n the results section. GLOMERULAR FILTRATION Routine 01/08/2015 6:00 Res ults for this RATE AM CDT procedure are i n the results section. CBC WITH AUTO Routine 01/08/2015 6:00 Results for this DIFFERENTIAL AM CDT procedure are i n the results section. COMPREHENSIVE METABOLIC Routine 01/08/2015 6:00 R esults for this PANEL AM CDT procedure are i n the results section. CT CERVICAL SPINE WO STAT 01/07/2015 2:42 Resu lts for this CONTRAST PM CDT procedure are i n the results section. CT HEAD WO CONTRAST STAT 01/07/2015 2:42 Resul ts for this PM CDT procedure are i n the results section. XR RIBS 2 VIEWS RIGHT STAT 01/07/2015 1:49 Res ults for this PM CDT procedure are i n the results section. XR WRIST 3+ VIEWS RIGHT STAT 01/07/2015 1:48 R esults for this PM CDT procedure are i n the results section. XR SHOULDER 2+ VIEWS STAT 01/07/2015 1:47 Resu lts for this RIGHT PM CDT procedure are i n the results section. documented in this encounter Results Oxycodone Conf (01/09/2015 12:45 AM CDT) P athologist Signature Oxycodone see below 01/09/2015 [facility] 1:33 AM [facility] Comment: See scanned [facility] Report. Specimen Anatomical Collection Method Collection Time Receive d Time (Source) Location / / Volume Laterality 01/09/2015 12:45 01/09/2015 1:15 AM CDT AM CDT Venkaat Yeboah MD LAB URINE ORDERABLES Performing Organization Address City/State/ZIP Code Phon e Number [place] [id number] [place] [id number] [facility] [address] [place] [address] Benzodiazepine Conf (01/09/2015 12:45 AM CDT) [facility] gist Method Time Signature Benzodiazepam Lvl see below 01/09/2015 [facility] 1:33 AM [facility] Comment: See scanned [facility] Report. Specimen Anatomical Collection Method Collection Time Receive d Time (Source) Location / / Volume Laterality 01/09/2015 12:45 01/09/2015 1:15 AM CDT AM CDT Venkata Yeboah MD LAB URINE ORDERABLES Performing Organization Address City/[facility]/ZIP Code Phon e Number [address] [id number] [facility] [address] [place] [address] Opiate Confirmation (01/09/2015 12:45 AM CDT) P athologist Signature Opiates see below 01/09/2015 [facility] 1:33 AM [facility] Comment: See scanned [facility] Report. Specimen Anatomical Collection Method Collection Time Receive d Time (Source) Location / / Volume Laterality 01/09/2015 12:45 01/09/2015 1:15 AM CDT AM CDT Venkata Yeboah MD LAB URINE ORDERABLES Performing Organization Address City/State/ZIP Code Phon e Number [facility] [address] [place] [address] [facility] [address] [place] [address] Methamphetamine Conf (01/09/2015 12:45 AM CDT) [facility] gist Method Time Signature Methamphetamine see below 01/09/2015 [facility] 1:33 AM [facility] Comment: See scanned [facility] Report. Specimen Anatomical Collection Method Collection Time Receive d Time (Source) Location / / Volume Laterality 01/09/2015 12:45 01/09/2015 1:15 AM CDT AM CDT Venkata eYboah MD LAB URINE ORDERABLES Performing Organization Address City/State/ZIP Code Phon e Number [address] [address] [facility] [address] [place] [address] Cocaine Confirmation (01/09/2015 12:45 AM CDT) athologist Signature Cocaine see below 01/09/2015 [facility] 1:33 AM [facility] Comment: See scanned [facility] Report. Specimen Anatomical Collection Method Collection Time Receive d Time (Source) Location / / Volume Laterality 01/09/2015 12:45 01/09/2015 1:15 AM CDT AM CDT Venkata Yeboah MD LAB URINE ORDERABLES Performing Organization Address City/[facility]/ZIP Code Phon e Number [address] [phone] [facility] [address] [place] [address] THC (marijuana), urine, confirmation (01/09/2015 12:45 AM CDT) Component Value Ref Test Analysis Performed At [facility] Range Method Time Signature Tetrahydrocannabinol see 01/09/2015 [facility] below 1:33 AM [facility] Comment: See scanned [facility] Report. Specimen Anatomical Collection Method Collection Time Receive d Time (Source) Location / / Volume Laterality 01/09/2015 12:45 01/09/2015 1:15 AM CDT AM CDT Venkata Yeboah MD LAB URINE ORDERABLES Performing Organization Address City/[facility]/ZIP Code Phon e Number [address] [phone] [facility] [address] [place] [address] (ABNORMAL) Rapid drug screen, urine (01/09/2015 12:45 AM CDT) P athologist Signature Rapid Urine ----- 01/07/2015 [facility] Drug Screen 8:40 PM [facility] Comment: This is a screening test. ??Positive res ults should be considered presumptive [facility]. This test is not for legal purposes - on medical. Tetrahydrocannabinol DETECTED (A) Not Detected 01/09/2015 1: 31 [facility] Comment: Sent to [facility] for GC/MS confir mation. Phencyclidine, Mec NOT DETECTED Not Detected 01/09/2015 1: [address] [facility] Cocaine DETECTED (A) Not Detected 01/09/2015 1:31 AM [facility] Comment: Sent to [facility] for GC/MS confir mation. Methamphetamine DETECTED (A) Not Detected 01/09/2015 1:[address] [facility] Comment: Sent to [facility] for GC/MS confir mation. Opiates DETECTED (A) Not Detected 01/09/2015 1:31 AM [facility] Comment: Sent to [facility] for GC/MS confir mation. Amphetamines NOT DETECTED Not Detected 01/09/2015 1:31 AM [facility] Benzodiazepines DETECTED (A) Not Detected 01/09/2015 1:[address] [facility] Comment: Sent to [facility] for GC/MS confir mation. TCA, Urine NOT DETECTED Not Detected 01/09/2015 1:31 AM [facility] Methadone NOT DETECTED Not Detected 01/09/2015 1:31 AM [facility] Barbiturates NOT DETECTED Not Detected 01/09/2015 1:31 AM [facility] Oxycodone DETECTED (A) Not Detected 01/09/2015 1:31 AM [facility] Comment: Sent to [facility] for GC/MS confir mation. Propoxyphene NOT DETECTED Not Detected 01/09/2015 1:31 AM [facility] Detectable Levels ----- 01/07/2015 8:40 PM [facility] Comment: Note new cutoff values effective 03/2012: Amphetamines ?500 ng/ mL Barbiturates ?200 ng/ mL Benzodiazepines ? 150 ng/mL Cocaine ? 150 n g/mL Methamphetamine ? 500 ng/mL Methadone ? 200 ng /mL Opiates ? 100 n g/mL Oxycodone ? 100 ng /mL Phencyclidine ? 25 ng/mL Propoxyphene ?300 ng/ mL Tetrahydrocannabinol ?50 ng/mL Tricyclic Antidepressant ??300 ng/mL Specimen Anatomical Collection Method Collection Time Receive d Time (Source) Location / / Volume Laterality 01/09/2015 12:45 01/09/2015 1:15 AM CDT AM CDT Venkata Yeboah MD LAB URINE ORDERABLES Performing Organization Address City/State/ZIP Code Phon e Number [facility] [address] [place] [address] Glomerular filtration rate (GFR) (01/08/2015 6:00 AM CDT) athologist Signature GFR >60 01/08/2015 [facility] 6:35 AM [facility]T [facility] >60 01/08/2015 [facility] [place] GFR 6:35 AM CDT [facility] Comment: GFR calculated from serum creatinine v alue Chronic Kidney Disease less than 60 mL/m in/1.73 m2 Kidney Failure less than 15 mL/min/1.73 m2 Note: effective 08/02/06 [facility]-Traceable MDRD Study Equation used. Specimen Anatomical Collection Method Collection Time Receive d Time (Source) Location / / Volume Laterality 01/08/2015 6:00 AM 5 6:00 CDT AM CDT Venkata Yeboah MD LAB BLOOD ORDERABLES Performing Organization Address City/State/ZIP Code Phon e Number [facility] [address] [place] [address] (ABNORMAL) CBC auto differential (01/08/2015 6:00 AM CDT) [facility] Method Time Signature WBC 6.8 3.5 - 01/08/2015 [facility] 10.5 K/uL 6:32 AM [facility] RBC 3.71 (L) 3.90 - 01/08/2015 [facility] 5.00 M/uL 6:32 AM [facility] Hemoglobin 11.7 (L) 12.0 - 01/08/2015 [facility] 15.5 g/dL 6:32 AM [facility] Hematocrit 35.9 35.0 - 01/08/2015 [facility] 44.0 % 6:32 AM [facility] MCV 96.6 81.6 - 01/08/2015 [facility] 98.3 fL 6:32 AM [facility] MCH 31.4 26.0 - 01/08/2015 [facility] 32.0 pg 6:32 AM [facility] MCHC 32.5 32.0 - 01/08/2015 [facility] 36.0 g/dL 6:32 AM [facility] RDW 12.0 11.9 - 01/08/2015 [facility] 15.5 % 6:32 AM [facility] Platelets 215 150 - 450 01/08/2015 [facility] K/uL 6:32 AM [facility] Neutrophils 38.2 % 01/08/2015 [facility] 6:32 AM [facility] Lymphocytes % 46.6 % 01/08/2015 [facility] 6:32 AM [facility] Monocytes % 9.2 % 01/08/2015 [facility] 6:32 AM [facility] Eosinophils 5.1 % 01/08/2015 [facility] 6:32 AM [facility] Basophils 0.9 % 01/08/2015 [facility] 6:32 AM [facility] Absolute 2.6 1.7 - 7.0 01/08/2015 [facility] Neutrophils K/uL 6:32 AM [facility] Absolute 3.2 (H) 0.9 - 2.9 01/08/2015 [facility] Lymphocytes K/uL 6:32 AM [facility] Monocytes 0.6 0.3 - 0.9 01/08/2015 [facility] Absolute K/uL 6:32 AM [facility] Absolute 0.3 0.1 - 0.5 01/08/2015 [facility] Eosinophils K/uL 6:32 AM [facility] Absolute 0.1 0.0 - 0.1 01/08/2015 [facility] Basophils K/uL 6:32 AM [facility] Specimen Anatomical Collection Method Collection Time Receive d Time (Source) Location / / Volume Laterality 01/08/2015 6:00 AM 5 6:23 CDT AM CDT Venkata Yeboah MD LAB BLOOD ORDERABLES Performing Organization Address City/State/ZIP Code Phon e Number [facility] [address] [place] [address] (ABNORMAL) Comprehensive metabolic panel (01/08/2015 6:00 AM CDT) [facility] Method Time Signature Fasting? Unknown 01/08/2015 [facility] 6:23 AM [facility] Sodium 140 135 - 145 01/08/2015 [facility] mEq/L 6:33 AM [facility] Potassium 3.8 3.5 - 5.1 01/08/2015 [facility] mEq/L 6:33 AM [facility] Chloride 102 98 - 107 01/08/2015 [facility] mEq/L 6:33 AM [facility] CO2 33 (H) 22 - 29 01/08/2015 [facility] mmol/L 6:36 AM [facility] BUN 15 5 - 25 01/08/2015 [facility] mg/dL 6:36 AM [facility] Creatinine 0.7 0.4 - 1.2 01/08/2015 [facility] mg/dL 6:35 AM [facility] Glucose 101 (H) 70 - 100 01/08/2015 [facility] mg/dL 6:36 AM [facility] Alkaline 75 38 - 128 01/08/2015 [facility] Phosphatase U/L 6:36 AM [facility] AST 38 8 - 43 U/L 01/08/2015 [facility] 6:36 AM [facility] Total Protein 6.4 6.3 - 8.2 01/08/2015 [facility] g/dL 6:36 AM [facility] Albumin, Serum 3.6 3.5 - 5.0 01/08/2015 [facility] g/dL 6:33 AM [facility] Calcium, Total,S 9.5 8.4 - 10.2 01/08/2015 [facility] mg/dL 6:37 AM [facility] ALT (SGPT) 47 (H) 25 - 45 01/08/2015 [facility] U/L 6:36 AM [facility] Comment: . Total Bilirubin 0.6 0.1 - 1.0 mg/dL 01/08/2015 6:36 AM T [facility] Specimen Anatomical Collection Method Collection Time Receive d Time (Source) Location / / Volume Laterality 01/08/2015 6:00 AM 5 6:23 CDT AM CDT Venkata Yeboah MD LAB BLOOD ORDERABLES Performing Organization Address City/State/ZIP Code Phon e Number [facility] [address] [place] [id number] cervical spine wo IV contrast (01/07/2015 2:42 PM CDT) Anatomical Region Laterality Modality Spine, C-spine Computed Tomography Specimen (Source) Anatomical Collection Method Collection Time Re ceived Time Location / / Volume Laterality 01/07/2015 2:42 PM CDT Narrative 01/07/2015 2:51 PM CDT Clinical History fell last noc - neck pain + LOC Comparison February 07, 2013. Technique Routine noncontrast CT cervical spine pe rformed. Findings No fracture or facet malalignment. ??Mul tilevel degenerative disc disease extending from C3-C7. ??No apica l pneumothorax. ??Asymmetry of the thyroid, unchanged. ??Vascular calci fications. Impression No fracture or facet malalignment. ??No change since the prior study. Procedure Note Edward Sherwood MD - 12/10/2017Formatt ing of this note might be different from the original. Clinical History fell last noc - neck pain + LOC Comparison February 07, 2013. Technique Routine noncontrast CT cervical spine pe rformed. Findings No fracture or facet malalignment. Multi level degenerative disc disease extending from C3-C7. No apical pneumothorax. Asymmetry of the thyroid, unchanged. Vascular calcifi cations. Impression No fracture or facet malalignment. No ch feliz since the prior study. J[facility] Hidal[place] [facility] [place] CT head wo IV contrast (01/07/2015 2:42 PM CDT) Anatomical Region Laterality Modality Head and Neck Computed Tomography Specimen (Source) Anatomical Collection Method Collection Time Re ceived Time Location / / Volume Laterality 01/07/2015 2:42 PM CDT Narrative 01/07/2015 2:48 PM CDT Clinical History fell last noc, +LOC Comparison None. Technique Routine noncontrast CT brain performed. Findings Prominence of the basilar tip. ??No hemo rrhage. No hydrocephalus. ??No extra-axial fluid. ??Visualized sinuses clear. ??No fracture. ??Normal faith-white differentiation. ??Vascular c alcifications. Impression ? 1. No intracranial hemorrhage or hydrocephalus. ? 2. Prominence of the basilar tip, cannot exclude small aneurysm. ?? MRA recommended. Procedure Note Edward Sherwood MD - 12/10/2017Formatt ing of this note might be different from the original. Clinical History fell last noc, +LOC Comparison None. Technique Routine noncontrast CT brain performed. Findings Prominence of the basilar tip. No hemorr triny. No hydrocephalus. No extra-axial fluid. Visualized sinuses cl ear. No fracture. Normal faith-white differentiation. Vascular geovanna cifications. Impression 1. No intracranial hemorrhage or hydroc ephalus. 2. Prominence of the basilar tip, canno t exclude small aneurysm. MRA recommended. Jori Hidal[place] [facility] [place]ED[place] X-ray ribs 2 views right (01/07/2015 1:49 PM CDT) Anatomical Region Laterality Modality Body Right Radiographic Imaging Specimen (Source) Anatomical Collection Method Collection Time Re ceived Time Location / / Volume Laterality 01/07/2015 1:49 PM CDT Narrative 01/07/2015 2:30 PM CDT Clinical History Fall right axillary pain Comparison None. Findings There is a displaced fracture of the rig ht lateral 7th rib. ?? Nondisplaced right lateral 6th rib fract ure. ??Minimally displaced right lateral 5th rib fracture. ??Lungs are clear. ??No pneumothorax or pleural effusion. ??Vascular calcificati ons. ??Postprocedure changes to the upper lumbar spine with methylmethac rylate in the L1 vertebral body. ??Surgical clips right upper quadr ant. Impression Fractures of the right 5th, 6th and 7th ribs. Procedure Note Edward Sherwood MD - 12/10/2017Formatt ing of this note might be different from the original. Clinical History Fall right axillary pain Comparison None. Findings There is a displaced fracture of the rig ht lateral 7th rib. Nondisplaced right lateral 6th rib fract ure. Minimally displaced right lateral 5th rib fracture. Lungs ar e clear. No pneumothorax or pleural effusion. Vascular calcification s. Postprocedure changes to the upper lumbar spine with methylmethac rylate in the L1 vertebral body. Surgical clips right upper quadran t. Impression Fractures of the right 5th, 6th and 7th ribs. Jori Hidalgo [facility] XR PROCEDURES X-ray wrist 3+ views right (01/07/2015 1:48 PM CDT) Anatomical Region Laterality Modality Upper Extremities, Wrist Right Radiographic Im aging Specimen (Source) Anatomical Collection Method Collection Time Re ceived Time Location / / Volume Laterality 01/07/2015 1:48 PM CDT Narrative 01/07/2015 2:28 PM CDT Clinical History Fall last night wrist pain with some swe lling Comparison November 21, 2013. 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 ?? No acute fracture. ??Widening of the sca pholunate interval may be present. ??Chronic changes to the dorsal carpus. ?? Impression No acute fracture. Procedure Note Edward Sherwood MD - 12/10/2017Formatt ing of this note might be different from the original. Clinical History Fall last night wrist pain with some swe lling Comparison November 21, 2013. 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 No acute fracture. Widening of the scaph olunate interval may be present. Chronic changes to the dorsal c arpus. Impression No acute fracture. Jori Hidalgo [facility] XR PROCEDURES X-ray shoulder 2+ views right (01/07/2015 1:47 PM CDT) Anatomical Region Laterality Modality Upper Extremities, Shoulder Right Radiographic Imaging Specimen (Source) Anatomical Collection Method Collection Time Re ceived Time Location / / Volume Laterality 01/07/2015 1:47 PM CDT Narrative 01/07/2015 2:30 PM CDT Clinical History Fall last night shoulder pain Comparison December 08, 2012. Findings No fracture or malalignment. ??Intact vi sualized ribs. ??Chronic changes to the acromioclavicular joint. Impression No fracture. Procedure Note Edward Sherwood MD - 12/10/2017Formatt ing of this note might be different from the original. Clinical History Fall last night shoulder pain Comparison December 08, 2012. Findings No fracture or malalignment. Intact visu alized ribs. Chronic changes to the acromioclavicular joint. Impression No fracture. Jori Hidalgo [facility] XR PROCEDURES documented in this encounter Visit Diagnoses Diagnosis Multiple closed fractures of ribs of rig ht side Concussion with loss of consciousness Fall on same level from slipping, trippi ng and stumbling with subsequent striking against furniture, initial encounter Non-institutional private residence as p lace of occurrence of external cause Activity involving walking, marching, or hiking Other external cause status Viral hepatitis C without hepatic coma Other psychoactive substance abuse, unco mplicated (HCC) Essential (primary) hypertension Unspecified essential hypertension Uncomplicated asthma Strain of muscle, fascia and tendon at n [place] level, initial encounter Major depressive disorder, single episod e Major depressive disorder, single episod e, unspecified Anxiety disorder Anxiety state, unspecified Glaucoma Unspecified glaucoma Type 2 diabetes mellitus without complic ations (HCC) Cigarette nicotine dependence, uncomplic ated documented in this encounter
--- OUTSIDE RECORDS SUMMARY | 2021-12-09 21:35 | XMS_ITS | Encounter Summary ---
:1950 Author Organization [facility] Address [address] [place] [address] Care Team Providers Name Role Phone Unavailable Primary Care Provider Unavailable Encounter Details Date Type Department Care Team Description 02/29/2016 Emergency [facility] Emergency Lizbeth Browne Acu te cystitis with hematuria; Room PA-C Epigastric pain; [address] 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 Do you [...] Devices glucometer strips See 0 10/29/2015 (RECONSTITUBE) [facility] Instructions, testing strips-please fill brand covered by insurance., 100 each, 5 Refill(s) Misc. Devices flex pen needles See 0 10/08/2015 (RECONSTITUBE) misc Instructions, flex pen needles, 100 each, 5 Refill(s) Misc. Devices lancet See 0 10/08/2015 (RECONSTITUBE) misc Instructions, lancets, 100 each, 5 Refill(s) Misc. Devices glucometer See 0 10/08/2015 (RECONSTITUBE) misc Instructions, glucose monitor, 1 each, 0 Refill(s) documented as of this encounter Plan of Treatment Upcoming Encounters Date Type Specialty Care Team Description 01/18/2022 Telemedicine Family Medicine Sebastian Griffiths MD [address] [place], [place] [address] (Wo rk) documented as of this encounter Procedures Procedure Name Priority Date/Time Associated Comments Diagnosis ADD-ON TEST REQUEST STAT 02/29/2016 12:39 Resu lts for this PM SCREW MACHINE SET UP OPERATOR procedure are i n the results section. ADD-ON TEST REQUEST STAT 02/29/2016 11:06 Resu lts for this AM SCREW MACHINE SET UP OPERATOR procedure are i n the results section. URINALYSIS-MICROSCOPIC STAT 02/29/2016 10:40 R esults for this EXAM (REFLEXED) AM SCREW MACHINE SET UP OPERATOR procedure ar e in the results section. URINALYSIS WITH REFLEX STAT 02/29/2016 10:40 R esults for this MICROSCOPIC AM SCREW MACHINE SET UP OPERATOR procedure are i n the results section. URINE CULTURE STAT 02/29/2016 10:40 Results fo r this AM SCREW MACHINE SET UP OPERATOR procedure are i n the results section. MORPHOLOGY STAT 02/29/2016 10:16 Results for this AM SCREW MACHINE SET UP OPERATOR procedure are i n the results section. GLOMERULAR FILTRATION STAT 02/29/2016 10:16 Re sults for this RATE AM SCREW MACHINE SET UP OPERATOR procedure are i n the results section. CBC WITH AUTO STAT 02/29/2016 10:16 Results fo r this DIFFERENTIAL AM SCREW MACHINE SET UP OPERATOR procedure are i n the results section. TROPONIN I STAT 02/29/2016 10:16 Results for this AM SCREW MACHINE SET UP OPERATOR procedure are i n the results section. MANUAL DIFFERENTIAL STAT 02/29/2016 10:16 Resu lts for this AM SCREW MACHINE SET UP OPERATOR procedure are i n the results section. LIPASE STAT 02/29/2016 10:16 Results for this AM SCREW MACHINE SET UP OPERATOR procedure are i n the results section. AMYLASE STAT 02/29/2016 10:16 Results for this AM SCREW MACHINE SET UP OPERATOR procedure are i n the results section. COMPREHENSIVE STAT 02/29/2016 10:16 Results fo r this METABOLIC PANEL AM SCREW MACHINE SET UP OPERATOR procedure ar e in the results section. documented in this encounter Results Add-On Test Request (02/29/2016 12:39 PM SCREW MACHINE SET UP OPERATOR) Patholo gist Method Time Signature Add-on Testing SEE BELOW 02/29/2016 [place] 1:09 PM [facility] Comment: Urine culture added Specimen Anatomical Collection Method Collection Time Receive d Time (Source) Location / / Volume Laterality 02/29/2016 12:39 02/29/2016 PM SCREW MACHINE SET UP OPERATOR 12:39 PM SCREW MACHINE SET UP OPERATOR Lizbeth Browne PA-C LAB BLOOD ORDERABLES Performing Organization Address [facility]/ZIP Code Phon e Number [facility] [address] [place] [id number] Add-On Test Request (02/29/2016 11:06 AM SCREW MACHINE SET UP OPERATOR) [facility] Signature Add-on Testing SEE BELOW 02/29/2016 [place] 11:31 AM [facility] Comment: Amylase and Lipase added Specimen Anatomical Collection Method Collection Time Receive d Time (Source) Location / / Volume Laterality 02/29/2016 11:06 02/29/2016 AM SCREW MACHINE SET UP OPERATOR 11:06 AM SCREW MACHINE SET UP OPERATOR Lizbeth MANTILLA-C LAB BLOOD ORDERABLES Performing Organization Address City/[facility]/ZIP Code Phon e Number [facility] [address] [place] [address] Urine culture (02/29/2016 10:40 AM SCREW MACHINE SET UP OPERATOR) [facility] Urine Culture No Growth 03/01/2016 [place] 8:09 AM [facility] Specimen Anatomical Collection Method Collection Time Receive d Time (Source) Location / / Volume Laterality Urine 02/29/2016 10:40 02/29/2016 AM SCREW MACHINE SET UP OPERATOR 10:48 AM SCREW MACHINE SET UP OPERATOR Lizbeth MANTILLA-C LAB MICROBIOLOGY - GENERAL O RDERABLES Performing Organization Address City/[facility]/ZIP Code Phon e Number [facility] [address] [place] [address] (ABNORMAL) Urinalysis-Microscopic Exam (02/29/2016 10:40 AM SCREW MACHINE SET UP OPERATOR) [facility] Significant NONE SEEN None Seen 02/29/2016 [place] casts, urine /lpf 11:06 AM [facility] Casts, urine NONE SEEN 0-2 Hyaline 02/29/2016 [place] /lpf 11:06 AM [facility] RBC, Urine NONE SEEN 0 - 3 /hpf 02/29/2016 [place] 11:06 AM [facility] WBC, Urine 0-3 /hpf 02/29/2016 [place] 11:06 AM [facility] Comment: Male Ref Range ? 0-3/hpf Female Ref Range ?? 0-10/hpf Squamous Epithelial, 1+ (A) Few /lpf 02/29/2016 11:06 AM [facility] Trans Epithelial, NONE SEEN 0 - 3 /hpf 02/29/2016 11:06 [facility] Renal Tubular Cells, NONE SEEN 0 - 1 /hpf 02/29/2016 11:06 A [facility] Bacteria, Urine FEW None Seen 02/29/2016 11:06 AM [facility] Specimen Anatomical Collection Method Collection Time Receive d Time (Source) Location / / Volume Laterality 02/29/2016 10:40 02/29/2016 AM SCREW MACHINE SET UP OPERATOR 10:48 AM SCREW MACHINE SET UP OPERATOR Lizbeth Browne PA-C LAB URINE ORDERABLES Performing Organization Address City/State/ZIP Code Phon e Number [facility] [address] [place] [address] (ABNORMAL) Urinalysis with reflex microscopic (02/29/2016 10:40 AM SCREW MACHINE SET UP OPERATOR) Patholo gist Method Time Signature Type Clean Catch [facility] Color, Urine CATRACHO YELLOW 02/29/2016 [place] 10:51 AM [facility] Clarity, CLEAR CLEAR 02/29/2016 [place] Urine 10:51 AM [facility] Glucose, 100 (A) NEGATIVE 02/29/2016 [place] Urine mg/dL 10:51 AM [facility] Bilirubin, MODERATE (A) NEGATIVE 02/29/2016 [place] Urine 10:51 AM [facility] Ketones, NEGATIVE NEGATIVE 02/29/2016 [place] Urine mg/dL 10:51 AM [facility] Specific >=1.030 1.000 02/29/2016 [place], ->=1.030 10:51 AM [facility] Blood, Urine NEGATIVE NEGATIVE 02/29/2016 [place] 10:51 AM [facility] pH, Urine 6.5 5.0 - 7.0 02/29/2016 [place] 10:51 AM [facility] Protein, 100 (A) NEGATIVE-TRA 02/29/2016 [place] Urine CE mg/dL 10:51 AM [facility] Urobilinogen, 4.0 (A) 0.2 - 1.0 02/29/2016 [place] Urine E.U./dL 10:51 AM [facility] Nitrite, POSITIVE (A) NEGATIVE 02/29/2016 [place] Urine 10:51 AM [facility] Leukocytes, NEGATIVE NEGATIVE 02/29/2016 [place] Urine 10:51 AM [facility] Specimen Anatomical Collection Method Collection Time Receive d Time (Source) Location / / Volume Laterality 02/29/2016 10:40 02/29/2016 AM SCREW MACHINE SET UP OPERATOR 10:48 AM SCREW MACHINE SET UP OPERATOR Lizbeth Browne PA-C LAB URINE ORDERABLES Performing Organization Address [facility]/ZIP Code Phon e Number [facility] [address] [place] [phone] Lipase (02/29/2016 10:16 AM SCREW MACHINE SET UP OPERATOR) P athologist Signature Lipase 68 23 - 300 02/29/2016 [facility] U/L 11:36 AM [facility] Specimen Anatomical Collection Method Collection Time Receive d Time (Source) Location / / Volume Laterality 02/29/2016 10:16 02/29/2016 AM SCREW MACHINE SET UP OPERATOR 10:16 AM SCREW MACHINE SET UP OPERATOR Lizbeth Browne PA-C LAB BLOOD ORDERABLES Performing Organization Address City/[facility]/ZIP [facility] Phon e Number [facility] [address] [place] [address] Amylase (02/29/2016 10:16 AM SCREW MACHINE SET UP OPERATOR) P athologist Signature Amylase 72 0 - 91 U/L 02/29/2016 [facility] 11:36 AM [facility] Specimen Anatomical Collection Method Collection Time Receive d Time (Source) Location / / Volume Laterality 02/29/2016 10:16 02/29/2016 AM SCREW MACHINE SET UP OPERATOR 10:16 AM SCREW MACHINE SET UP OPERATOR Lizbeth Browne PA-C LAB BLOOD ORDERABLES Performing Organization Address City/[facility] Phon e Number [facility] [address] [place] [address] Morphology (02/29/2016 10:16 AM SCREW MACHINE SET UP OPERATOR) Patholo gist Method Time Signature Slide Review PERFORMED 02/29/2016 [place] 10:53 AM [facility] PLT Morphology ADEQUATE 02/29/2016 [place] 10:56 AM [facility] RBC Morphology See below 02/29/2016 [place] 10:56 AM [facility] Anisocytosis 1+ 02/29/2016 [place] 10:56 AM [facility] Specimen Anatomical Collection Method Collection Time Receive d Time (Source) Location / / Volume Laterality 02/29/2016 10:16 02/29/2016 AM SCREW MACHINE SET UP OPERATOR 10:16 AM SCREW MACHINE SET UP OPERATOR Lizbeth Browne PA-C LAB BODY FLUIDS AND STOOLS O RDERABLES Performing Organization Address City/State/ZIP Code Phon e Number [facility] [address] [place] [address] Manual Differential (02/29/2016 10:16 AM SCREW MACHINE SET UP OPERATOR) Patholo gist Method Time Signature Manual PERFORMED 02/29/2016 [place] Differential 10:53 AM [facility] Bands 1.0 % 02/29/2016 [place] 10:56 AM [facility] Total Counted 100 02/29/2016 [place] 10:53 AM [facility] Specimen Anatomical Collection Method Collection Time Receive d Time (Source) Location / / Volume Laterality 02/29/2016 10:16 02/29/2016 AM SCREW MACHINE SET UP OPERATOR 10:16 AM SCREW MACHINE SET UP OPERATOR Lizbeth Browne PA-C LAB BLOOD ORDERABLES Performing Organization Address City/[facility]/ZIP Code Phon e Number [facility] [address] [place] [address] Glomerular filtration rate (GFR) (02/29/2016 10:16 AM SCREW MACHINE SET UP OPERATOR) P athologist Signature GFR >60 02/29/2016 [facility] 10:42 AM [facility] >60 02/29/2016 [facility] [place] GFR 10:42 AM [facility] Comment: GFR calculated from serum creatinine v alue Chronic Kidney Disease less than 60 mL/m in/1.73 m2 Kidney Failure less than 15 mL/min/1.73 m2 Note: effective 08/02/06 IDMS-Traceable MDRD Study Equation used. Specimen Anatomical Collection Method Collection Time Receive d Time (Source) Location / / Volume Laterality 02/29/2016 10:16 02/29/2016 AM SCREW MACHINE SET UP OPERATOR 10:16 AM SCREW MACHINE SET UP OPERATOR Lizbeth Browne PA-C LAB BLOOD ORDERABLES Performing Organization Address City/[facility]/ZIP Code Phon e Number [facility] [address] [place] [address] Troponin I (02/29/2016 10:16 AM SCREW MACHINE SET UP OPERATOR) P athologist Signature Troponin I <0.012 0.012 - 02/29/2016 [facility] 0.034 ng/mL 10:55 AM [facility] Comment: Note Reference Value Range [...] ??* ECG changes indicative of new ische ronda ??* Development of pathological Q Waves in [...] for a definitive diagnosis of myocardial infarction. Specimen Anatomical Collection Method Collection Time Receive d Time (Source) Location / / Volume Laterality 02/29/2016 10:16 02/29/2016 AM SCREW MACHINE SET UP OPERATOR 10:16 AM SCREW MACHINE SET UP OPERATOR Lizbeth Browne PA-C LAB BLOOD ORDERABLES Performing Organization Address City/State/ZIP Code Phon e Number [facility] [address] [place] [address] (ABNORMAL) Comprehensive metabolic panel (02/29/2016 10:16 AM SCREW MACHINE SET UP OPERATOR) Patholo gist Method Time Signature Fasting? Unknown 02/29/2016 [place] 10:16 AM [facility] Sodium 142 135 - 145 02/29/2016 [place] mEq/L 10:40 AM [facility] Potassium 3.9 3.5 - 5.1 02/29/2016 [place] mEq/L 10:40 AM [facility] Chloride 105 98 - 107 02/29/2016 [place] mEq/L 10:39 AM [facility] CO2 24 22 - 29 02/29/2016 [place] mmol/L 10:42 AM [facility] BUN 17 5 - 25 02/29/2016 [place] mg/dL 10:42 AM [facility] Creatinine 0.6 0.4 - 1.2 02/29/2016 [place] mg/dL 10:42 AM [facility] Glucose 118 (H) 70 - 100 02/29/2016 [place] mg/dL 10:43 AM [facility] Alkaline 97 38 - 128 02/29/2016 [place] Phosphatase U/L 10:42 AM [facility] AST 50 (H) 8 - 43 U/L 02/29/2016 [place] 10:42 AM [facility] Total Protein 7.2 6.3 - 8.2 02/29/2016 [place] g/dL 10:42 AM [facility] Albumin, Serum 3.9 3.5 - 5.0 02/29/2016 [place] g/dL 10:39 AM [facility] Calcium, Total,S 9.5 8.4 - 10.2 02/29/2016 [place] mg/dL 10:43 AM [facility] ALT (SGPT) 49 (H) 25 - 45 02/29/2016 [place] U/L 10:42 AM [facility] Comment: . Total Bilirubin 2.2 (H) 0.1 - 1.0 mg/dL 02/29/2016 10:42 A [facility] Specimen Anatomical Collection Method Collection Time Receive d Time (Source) Location / / Volume Laterality 02/29/2016 10:16 02/29/2016 AM SCREW MACHINE SET UP OPERATOR 10:16 AM [facility] Lizbeth Browne PA-C LAB BLOOD ORDERABLES Performing Organization Address City/State/ZIP Code Phon e Number [facility] [address] [place] [address] (ABNORMAL) CBC auto differential (02/29/2016 10:16 AM [facility]) [facility] Method Time Signature WBC 9.7 3.5 - 10.5 02/29/2016 [place] K/uL 10:37 AM [facility] RBC 4.21 3.90 - 02/29/2016 [place] 5.00 M/uL 10:37 AM [facility] Hemoglobin 13.4 12.0 - 02/29/2016 [place] 15.5 g/dL 10:37 AM [facility] Hematocrit 39.8 35.0 - 02/29/2016 [place] 44.0 % 10:37 AM [facility] MCV 94.5 81.6 - 02/29/2016 [place] 98.3 fL 10:37 AM [facility] MCH 31.9 26.0 - 02/29/2016 [place] 32.0 pg 10:37 AM [facility] MCHC 33.7 32.0 - 02/29/2016 [place] 36.0 g/dL 10:37 AM [facility] RDW 14.9 11.9 - 02/29/2016 [place] 15.5 % 10:37 AM [facility] Platelets 284 150 - 450 02/29/2016 [place] K/uL 10:37 AM [facility] Neutrophils 72.0 % 02/29/2016 [place] 10:56 AM [facility] Lymphocytes % 18.0 % 02/29/2016 [place] 10:56 AM [facility] Monocytes % 5.0 % 02/29/2016 [place] 10:56 AM [facility] Eosinophils 3.0 % 02/29/2016 [place] 10:56 AM [facility] Basophils 1.0 % 02/29/2016 [place] 10:56 AM [facility] Absolute 7.1 (H) 1.7 - 7.0 02/29/2016 [place] Neutrophils K/uL 10:56 AM [facility] Absolute 1.7 0.9 - 2.9 02/29/2016 [place] Lymphocytes K/uL 10:56 AM [facility] Monocytes 0.5 0.3 - 0.9 02/29/2016 [place] Absolute K/uL 10:56 AM [facility] Absolute 0.3 0.1 - 0.5 02/29/2016 [place] Eosinophils K/uL 10:56 AM [facility] Absolute 0.1 0.0 - 0.1 02/29/2016 [place] Basophils K/uL 10:56 AM [facility] Specimen Anatomical Collection Method Collection Time Receive d Time (Source) Location / / Volume Laterality 02/29/2016 10:16 02/29/2016 AM SCREW MACHINE SET UP OPERATOR 10:16 AM SCREW MACHINE SET UP OPERATOR Lizbeth Browne PA-C LAB BLOOD ORDERABLES Performing Organization Address City/State/ZIP Code Phon e Number [facility] [address] [place] [address] documented in this encounter Visit Diagnoses Diagnosis Acute cystitis with hematuria Epigastric pain Abdominal pain, epigastric Essential (primary) hypertension Unspecified essential hypertension Type 2 diabetes mellitus without complic ations (HCC) 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
--- OUTSIDE RECORDS SUMMARY | 2021-12-09 21:35 | XMS_ITS | Encounter Summary ---
:1950 Author Organization [facility] Address [address] [place] [address] Care Team Providers Name Role Phone Unavailable Primary Care Provider Unavailable Encounter Details Date Type Department Care Team Description 12/10/2012 Emergency [facility] Emergen cy Room Regis López MD Backache [address] [place] [address] [address] [place] [address] [place] [address] (Wo rk) Social History Tobacco Use Types [...] do you attend quaker or Never 2020 religion services? Do you [...] 01/18/2022 Telemedicine Family Medicine Sebastian Griffiths MD [address] [place] [address] (Wo rk) documented as of this encounter Visit Diagnoses Diagnosis Backache Unspecified backache documented in this encounter
--- OUTSIDE RECORDS SUMMARY | 2021-12-09 21:35 | XMS_ITS | Encounter Summary ---
:1950 Author Organization [facility] Address [address] [place] [address] Care Team Providers Name Role Phone Unavailable Primary Care Provider Unavailable Encounter Details Date Type Department Care Team Description 12/11/2013 - Hospital Encounter [facility] Regan Velásquez in joint, 02/05/2014 Kolby Azul MD forearm 102 [facility] [address] [place] [address] [place], [place] [phone] Social History Tobacco Use Types Packs/Day Years [...] do you attend orthodoxy or Never 2020 adventist services? Do you [...] Telemedicine Family Medicine Sebastian Griffiths MD [address] [place] [address] (Wo rk) documented as of this encounter Visit Diagnoses Diagnosis Pain in joint, forearm documented in this encounter
--- OUTSIDE RECORDS SUMMARY | 2021-12-09 21:35 | XMS_ITS | Encounter Summary ---
:1950 Author Organization [facility] Address [address] [place] [address] Care Team Providers Name Role Phone Unavailable Primary Care Provider Unavailable Encounter Details Date Type Department Care Team Description 07/20/2012 Emergency [facility] Emergency Karishma Chopra , Pain in joint, lower Room PA-C leg [address] [place] [address] Social History Tobacco Use Types Packs/Day Years [...] do you attend jain or Never 2020 restorationism services? Do you [...] Telemedicine Family Medicine Sebastian Griffiths MD [address] [place] [phone] (Wo rk) documented as of this encounter Visit Diagnoses Diagnosis Pain in joint, lower leg documented in this encounter
--- OUTSIDE RECORDS SUMMARY | 2021-12-09 21:35 | XMS_ITS | Encounter Summary ---
:1950 Author Organization [facility] Address [address] [place] [address] Care Team Providers Name Role Phone Unavailable Primary Care Provider Unavailable Encounter Details Date Type Department Care Team Description 03/30/2013 - Emergency [facility] Anagnostopolous, Closed frac ture of foot; 03/31/2013 Emergency Room Peter Injury, other and unspecifie d, other specified sites, including multiple; [address] [facility] Accidental fall on or from o ther stairs or steps; [place] [address] Place of occurrence, home [phone] Social History Tobacco Use Types Packs/Day Years [...] do you attend shinto or Never 2020 congregation services? Do you [...] 01/18/2022 Telemedicine Family Medicine Sebastian Griffiths MD [address] [place] [address] (Wo rk) documented as of this encounter Visit Diagnoses Diagnosis Closed fracture of foot Closed fracture of unspecified bone(s) o f foot (except toes) Injury, other and unspecified, other spe cified sites, including multiple Accidental fall on or from other stairs or steps Place of occurrence, home documented in this encounter
--- OUTSIDE RECORDS SUMMARY | 2021-12-09 21:35 | XMS_ITS | Encounter Summary ---
:1950 Author Organization [facility] Address [address] [place] [address] Care Team Providers Name Role Phone Unavailable Primary Care Provider Unavailable Encounter Details Date Type Department Care Team Description 06/04/2014 Hospital Encounter [facility] Rafael [facility] creening for malignant neoplasms, colon; Endoscopy MD Jaye Diverticulosis of colon; [address] [place] [address] [facility] [phone] [place] [address] Social History Tobacco Use Types [...] do you attend rastafari or Never 2020 catholic services? Do you [...] 01/18/2022 Telemedicine Family Medicine Sebastian Griffiths MD [address] [place] [address] (Wo rk) documented as of this encounter Visit Diagnoses Diagnosis Special screening for malignant neoplasm s, colon Diverticulosis of colon Diverticulosis of colon (without mention of hemorrhage) Dysphagia documented in this encounter
--- OUTSIDE RECORDS SUMMARY | 2021-12-09 21:35 | XMS_ITS | Encounter Summary ---
:1950 Author Organization [facility] Address [address] [place] [address] Care Team Providers Name Role Phone Unavailable Primary Care Provider Unavailable Encounter Details Date Type Department Care Team Description 03/05/2013 Emergency [facility] Emergency Bora Anton MD Symp sigrid associated with Room female genital organs [address] [place] [address] Social History Tobacco Use Types Packs/Day Years [...] do you attend spiritism or Never 2020 tenriism services? Do you [...] 01/18/2022 Telemedicine Family Medicine Sebastian Griffiths MD [address] [place] [phone] (Wo rk) documented as of this encounter Visit Diagnoses Diagnosis Symptom associated with female genital o rgans documented in this encounter
--- OUTSIDE RECORDS SUMMARY | 2021-12-09 21:35 | XMS_ITS | Encounter Summary ---
:1950 Author Organization [facility] Address [address] [place] [address] Care Team Providers Name Role Phone Unavailable Primary Care Provider Unavailable Encounter Details Date Type Department Care Team Description 05/21/2013 Emergency [facility] Emergency Khris Aguilar Contusion of knee; Melecio Azul MD Contusion of hip; [address] [facility] Acute bronchitis; [place] [address] Fall from other slipping, tr ipping, or stumbling [phone] Social History Tobacco Use Types Packs/Day Years [...] do you attend christian or Never 2020 sabianist services? Do you [...] Telemedicine Family Medicine Sebastian Griffiths MD [address] [place] [address] [phone] (Wo rk) documented as of this encounter Visit Diagnoses Diagnosis Contusion of knee Contusion of hip Acute bronchitis Fall from other slipping, tripping, or s tumbling documented in this encounter
--- OUTSIDE RECORDS SUMMARY | 2021-12-09 21:35 | XMS_ITS | Encounter Summary ---
:1950 Author Organization [facility] Address [address] [place] [address] Care Team Providers Name Role Phone Unavailable Primary Care Provider Unavailable Encounter Details Date Type Department Care Team Description 12/08/2012 Emergency [facility] Emergency Miguel A Dove M D Sprain and strain of knee and leg; Room Sprain and strain of shoulde r and upper arm; [address] Lumbar sprain; [place] [address] Fall; [phone] Place of occurr [facility] [place] Social History Tobacco Use Types Packs/Day Years [...] you attend latter day or Never 2020 adventism services? Do you [...] Telemedicine Family Medicine Sebastian Griffiths MD [address] [place] [address] 904 (Wo rk) documented as of this encounter Visit Diagnoses Diagnosis Sprain and strain of knee and leg Sprain and strain of shoulder and upper arm Lumbar sprain Lumbar sprain and strain Fall Unspecified fall Place of occurrence, home documented in this encounter
--- OUTSIDE RECORDS SUMMARY | 2021-12-09 21:37 | XMS_ITS | Clinical Summary ---
:1950 Author Organization [facility] [place] [address] Care Team Providers Name Role Phone Sebastian Griffiths MD Primary Care Provider Allergies Active Allergy Reactions Severity Noted Date Comments Aspirin *Unknown, Rash 05/31/2002 Bee Venom Protein (Honey Anaphylaxis High 09/19/2012 Bee) Honey *Unknown 09/08/2020 Ketorolac *Unknown, Seizures High 04/23/2020 Per patie nt report Losartan *Unknown High 03/12/2019 angioedema Nsaids (Non-Steroidal *Unknown, Rash Low 02/20/2002 Anti-Inflammatory Drug) Unlisted Allergen (Include *Unknown 09/08/2020 v arenciline Detail In Comments) Penicillins *Unknown, Rash 05/31/2002 Shrimp *Unknown 09/08/2020 Tramadol *Unknown 03/29/2019 Seizure Varenicline *Unknown 12/25/2008 Venom-Honey Bee *Unknown 09/08/2020 Medications Medication Sig Dispensed Refills Start Date End Date Status amLODIPine (NORVASC) 5 mg Take 5 mg by 0 Active tablet mouth once daily. dorzolamide-timoloL Place 1 Drop 0 Active (COSOPT) 2-0.5 % into both eyes ophthalmic solution 2 times daily. DULoxetine (CYMBALTA) 60 Take 120 mg by 0 Active mg Delayed-release capsule mouth once daily. fluticasone (50 mcg per Inhale 2 0 Active actuation) nasal solution Sprays to both (FLONASE) nostrils once daily. gabapentin (NEURONTIN) 600 Take 600 mg by 0 Active mg tablet mouth 3 times daily. hydroCHLOROthiazide (HCTZ) Take 25 mg by 0 Active 25 mg tablet mouth once daily. Lantus Solostar U-100 INJECT 30 0 09/22/2020 Active Insulin 100 unit/mL (3 mL) UNITS SUB-Q pen EVERY EVENING latanoprost (XALATAN) INSTILL 1 DROP 0 08/06/2020 Active 0.005 % ophthalmic INTO BOTH EYES solution EVERY EVENING. pantoprazole (PROTONIX) 40 TAKE 1 TAB BY 0 1 Active mg delayed-release tablet MOUTH ONCE DAILY FOR GERD risperiDONE (RISPERDAL) 2 TAKE 1 TAB BY 0 09/10/2020 Active mg tablet MOUTH TWICE A DAY Stool Softener-Laxative 0 09/24/2020 Active 8.6-50 mg tablet diazePAM (VALIUM) 5 mg Take 1 Tablet 15 Tablet 0 10/30/2020 Active tabletIndications: Acute (5 mg) by right hip pain mouth every 6 hours if needed for Muscle Spasm. acetaminophen (TYLENOL TAKE 2 TABLETS 0 10/26/2020 Active EXTRA STRGTH) 500 mg (1,000 MG tablet TOTAL) BY MOUTH EVERY 8 (EIGHT) HOURS IF NEEDED FOR MILD PAIN aspirin chewable 81 mg CHEW AND 0 03/26/2020 Active chewable tablet SWALLOW ONE TABLET BY MOUTH EVERY DAY insulin aspart U-100 0 06/27/2020 Active (NOVOLOG) 100 unit/mL injection hydrOXYzine HCL (ATARAX) TAKE 1 TAB BY 0 07/07/2020 Active 25 mg tablet MOUTH EVERY 8 HOURS NEEDED FOR ITCHING/ALLERG IES oxyCODONE (ROXICODONE) 5 TAKE 1 TABLET 0 10/30/2020 Active mg immediate release BY MOUTH EVERY tablet 6 HOURS NEEDED FOR MODERATE PAIN. MAX OF 3 TABS DAILY zolpidem (AMBIEN) 5 mg TAKE ONE 0 10/01/2020 Active tablet TABLET BY MOUTH EVERY DAY AT BEDTIME NEEDED FOR SLEEP Januvia 100 mg tablet Take 100 mg by 0 10/22/2020 Active mouth once daily. LORazepam (ATIVAN) 0.5 mg TAKE 1 TABLET 0 09/23/2020 Active tab BY MOUTH MOUTH EVERY 8 HOURS IF NEEDED FOR ANXIETY Active Problems No known active problems Immunizations Name Administration Dates Next Due DTaP 02/17/2007 Hepatitis B (Adult) 03/07/2017 Influenza Virus, Unspecified 04/18/2018 (Deferred: Patient R efused), 03/21/2016, 03/03/2016, 03/08/2015, 12/19/2013, 12/18/2013, 02/17/2009, 01/06/2009, 12/27/2007, 02/15/2007, 02/06/2006, 02/07/2005, 2004, 02/11/2002, 02/14/2001, 02/03/2000 Influenza, High-dose Inactivated 03/12/2019, 02/01/2018, , 03/21/2016 Influenza, IIV3 (Age 6-35 mos) 12/20/2012, 04/02/2012, 01/19, 02/17/2009 Influenza, IIV3 (Age >=3 years) 02/04/2015, 01/06/2009, 11/2007, 02/15/2007, 02/06/2006, 02/07/2005, 01/11/2005, 2004, 01/26/2003, 02/11/2002, 02/14/2001, 02/03/2000 Influenza, IIV4 03/03/2016, 03/08/2015, 12/19/2013 Pneumococcal Poly,23-Valent 02/17/2020, 12/24/2018, 10/17/19 14, (Pneumovax) 01/26/2003, 03/08/2002 Pneumococcal conj 13-Valent (Prevnar 03/07/2017 13) Pneumococcal, Unspecified 01/18/2014 Td, Preservative Free (age >= 7 07/19/2016 Years) Tdap 02/17/2007 Zoster, Unspecified Formulation 02/01/2018 (Deferred: Patien t Refused) Family History Medical History Relation Name Comments No Known Problems Brother 1 No Known Problems Brother 2 No Known Problems Brother 3 Bad blood. Heart Disease Brother 4 Pacemaker. at age 68. No Known Problems Brother 5 Thrown iut of a window. Cancer Father Stomach cancer. at age 39. Heart failure. No Known Problems Mother at age 84 . Respiratory illness. No Known Problems Sister 2 No Known Problems Son 1 [place], [place] No Known Problems Son 2 [place], [place] Relation Name Status Comments Brother 1 Alive Brother 2 Alive Brother 3 Brother 4 Brother 5 Father Mother Sister 1 Alive Sister 2 Alive Son 1 Alive Son 2 Alive Social History Tobacco Use Types Packs/Day Years Used Date Former Smoker Smokeless Tobacco: Never Used Comments: 3 cigarettes per day Alcohol Use Standard Drinks/Week Comments Never 0 (1 standard drink = 0.6 oz pure alcoho l) Alcohol Habits Answer Date Recorded How often do you have a drink containing alcohol? Never 09/24/2020 How many drinks containing alcohol do you have on a typical Not asked day when you are drinking? How often do you have six or more drinks on one occasion? No t asked Comment: Not asked Sex Assigned at Date Recorded Not on file Obstetrics History Last Filed Vital Signs Vital Sign Reading Time Taken Comments Blood Pressure 150/78 11/03/2020 7:17 PM CDT Pulse 97 11/03/2020 7:47 PM CDT Temperature 37 ??C (98.6 ??F) 11/03/2020 5:02 PM CDT Respiratory Rate 16 11/03/2020 7:17 PM CDT Oxygen Saturation 95% 11/03/2020 7:47 PM CDT Inhaled Oxygen Concentration - - Weight 106.1 kg (234 lb) 11/03/2020 5:02 PM CDT Height 165.1 cm (5' 5) 11/03/2020 5:02 PM CDT Body Mass Index 38.94 11/03/2020 5:02 PM CDT Plan of Treatment Health Maintenance Due Date Last Done Comments Depression screening for age 12+ 1964 BMI (ht and wt on same day) for 01/01/1970 age 18+ Hepatitis C screening for age 1001/01/1970 18-79 Colonoscopy through age 75 01/01/1997 Lipids for age 45-75 01/01/1997 Mammogram for age 45-75 01/01/1997 Zoster (shingles) series for age 1001/01/2002 50+ (1 of 2) DEXA/DXA scan for age 65+ 01/01/2017 COVID-19 vaccine series (4 - 03/16/2021 11/14/2020, 021, Booster for Pfizer series) 07/16/2020 Influenza for age 65+ 11/18/2021 03/12/2019, 02/01/2018, 03/07/2017, Additional history exists Tetanus booster 07/19/2026 07/19/2016, 02/17/2007 Tdap Completed 02/17/2007 Pneumococcal series for age 65+ Completed 02/17/2020, 09/2018, 03/07/2017, Additional history exists Results Not on filefrom Last 3 Months Insurance Payer Benefit Plan / Subscriber ID Effective Dates Phone Addre ss Type Group BLUE [employer]OSS BLUEPLUS [id number] 2021-Present MAILSTOP : [employer] [facility] [phone] [place] [address] Advance Directives Documents on File Type Date Recorded 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
--- OUTSIDE RECORDS SUMMARY | 2021-12-09 21:37 | XMS_ITS ---
:1950 Author Care Team Providers Name Role Phone Yudy Maldonado Primary Care Provider Unavailable Allergies None recorded. Medications Name Status Start Date Stop Date ? ? Accu-Chek Guide Glucose Meter Active ? No t available USE DIRECTED TO TEST BLOOD SUGARS THREE TIMES DAILY Accu-Chek Guide test strips Active ? Not available USE TO TEST BLOOD SUGAR THREE TIMES DAILY Accu-Chek Softclix Lancets Active ? Not a vailable USE TO TEST BLOOD SUGAR TWO TIMES A DAY acetaminophen 500 mg tablet Active ? Not available TAKE 2 TABLETS (1,000 MG TOTAL) BY MOUT H EVERY 8 (EIGHT) HOURS IF NEEDED FOR MILD PAIN amlodipine 5 mg tablet Active ? Not avail able aspirin 81 mg chewable tablet Active ? No t available CHEW AND SWALLOW ONE TABLET BY MOUTH EVERY DAY Assure Kayden 28 gauge Active ? Not availa ble USE TO TEST BLOOD SUGARS 3 TIMES A DAY BD AutoShield Duo Pen Needle 30 gauge x 3/16 Active ? Not available USE TO INJECT INSULIN ONCE DAILY. BD [employer]ps [employer] President Active ? Not availabl e SHARPS diazepam 5 mg tablet Active ? Not availab le TAKE 1 TABLET BY MOUTH EVERY 6 HOURS IF NEEDED FOR MUSCLE SPASM . dorzolamide 22.3 mg-timolol 6.8 mg/mL eye drops Active ? Not available INSTILL 1 DROP INTO BOTH EYES 2 TIMES A DAY duloxetine 60 mg capsule,delayed release Active ? Not available fluticasone propionate 50 mcg/actuation nasal Active ? Not available spray,suspension gabapentin 300 mg capsule Active ? Not av ailable TAKE TWO CAPSULES BY MOUTH THREE TIMES A DAY gabapentin 600 mg tablet Active ? Not arya ilable hydrochlorothiazide 25 mg tablet Active ? Not available hydroxyzine HCl 25 mg tablet Active ? Not available TAKE 1 TAB BY MOUTH EVERY 8 HOURS NEEDED FOR ITCHING/ALLERGI ES insulin aspart (U-100) 100 unit/mL (3 mL) subcutaneous pen Activ e ? Not available Januvia 100 mg tablet Active ? Not availa ble Lantus Solostar U-100 Insulin 100 unit/mL (3 mL) Active ? Not available subcutaneous pen latanoprost 0.005 % eye drops Active ? No t available lorazepam 0.5 mg tablet Active ? Not avai lable TAKE 1 TABLET BY MOUTH MOUTH EVERY 8 HOURS IF NEEDED FOR ANXIET Y lorazepam 1 mg tablet Active ? Not availa ble TAKE ONE TABLET BY MOUTH THREE TIMES A DAY NEEDED FOR ANXIET Y nicotine (polacrilex) 2 mg gum Active ? N ot available CHEW 1 EACH (2 MG TOTAL) IF NEEDED FOR SMOKING CESSATION USE UP TO 3 PIECES OF GUM A DAY WHILE ALSO ON THE PATCH nicotine 21 mg/24 hr daily transdermal patch Active ? Not available PLACE 1 PATCH ON THE SKIN 1 (ONE) TIME EACH DAY AT THE SAME ROBBIN E oxycodone 5 mg tablet Active ? Not availa ble pantoprazole 40 mg tablet,delayed release Active ? Not available risperidone 2 mg tablet Active ? Not avai lable Senna-S 8.6 mg-50 mg tablet Active ? Not available TAKE 2 TABS (17.2MG) BY MOUTH AT BEDTIME FOR CONSTIPATION Tab-A-Gianluca 400 mcg tablet Active ? Not av ailable TAKE ONE TABLET BY MOUTH EVERY MORNING zolpidem 5 mg tablet Active ? Not availab le Problems None recorded. Procedures None recorded. Results Lab Results Date Name Specimen Result Interpretation Description Value Range Status Address ? 01/01/2021 SARS CoV 2 RNA, Nose (nasal ? Result negative ? ? [facility] , X[facility]I+probe, passage) [facility] [place]: [address] , [place] Past Encounters 01/01/2021 Exposure to SARS-CoV-2 Yudy Maldonado PA-C: [address], [address], [place] [address], Ph. Social History None recorded. Vaccine List Vaccine Type COVID-19, mRNA, LNP-S, PF, 30 mcg/0.3 mL dose (Sarsys) 08/06/2020 11/14/2020 Hep B, adult 03/07/2017 influenza, high dose seasonal 03/21/2016 03/07/2017 02/01/2018 03/12/2019 influenza, injectable, quadrivalent, pre servative free 12/19/2013 03/08/2015 03/03/2016 influenza, seasonal, injectable 02/03/2000 02/14/2001 02/11/2002 01/26/2003 2004 01/11/2005 02/07/2005 02/06/2006 02/15/2007 12/27/2007 01/06/2009 02/04/2015 influenza, seasonal, injectable, preserv ative free 02/17/2009 01/19/2010 04/02/2012 12/20/2012 pneumococcal conjugate PCV 13 03/07/2017 pneumococcal polysaccharide PPV23 03/08/2002 01/26/2003 10/16/2013 12/24/2018 02/17/2020 pneumococcal, unspecified formulation 01/18/2014 Td (adult) preservative free 07/19/2016 Tdap 02/17/2007 Plan of Care Patient Instructions Discussed rapid covid results with adrian ent. No treatment indicated as patient is asymptomatic. Patient in agreement and understanding. All questions answered. Reminders Provider Appointments None recorded. ? ? Lab None recorded. ? ? Referral None recorded. ? ? Procedures None recorded. ? ? Surgeries None recorded. ? ? Imaging None recorded. ? ? Vitals Blood Pressure 138/96 mm[Hg]
--- OUTSIDE RECORDS SUMMARY | 2021-12-09 21:51 | XMS_ITS ---
[...] TO INJECT INSULIN ONCE DAILY. 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 Not availabl e SHARPS diazepam [...] [facility] , X[facility]I+probe, passage) Ur[facility] [place]: [address] , [place] Past Encounters 01/01/2021 Exposure to SARS-CoV-2 Yudy Maldonado PA-C: [address], [address], [place] [address], Ph. Social History None recorded. Vaccine List Vaccine Type COVID-19, mRNA, LNP-S, PF, 30 mcg/0.3 mL dose (TriNovus) 08/06/2020 11/14/2020 Hep B, adult 03/07/2017 influenza, [...]
== END 2021-12-09 21:20 | disposition home or self-care (01) ==
LOC: ED 21:20
PROVIDERS: Emergency Provider Family Medicine
DX: G89.29 Other chronic pain (principal); M54.9 Dorsalgia, unspecified
CPT/HCPCS: 99282; 99283; A9270

== ENCOUNTER 2022-03-12 21:26 | Outpatient (CLI) | payer BC, SELFPAY | END 2022-03-12 21:27 | disposition home or self-care (01) | LOC: AMB 03-15 09:32 | PROVIDERS: Visit Provider Emergency Medicine Emergency Medical Services | DX: R41.82 Altered mental status, unspecified (principal); R41.0 Disorientation, unspecified | CPT/HCPCS: A0425; A0427 ==

== ENCOUNTER 2022-03-12 21:49 | Inpatient (IN) | payer BC, SELFPAY ==
[2022-03-12 22:00] VITALS: BP 145/95; PULSE 112; RESP 20; TEMP 36.9; O2SAT 95; BMI 36.6
--- NOTE | 2022-03-12 22:11 | ED.NURSE ---
patient verbalizes date, situation but not location. pt sleeping and arouses for questions but falls back asleep, pt states knee pain bilaterally from fall but falls a sleep again when asking further questions. pt arrives urinary incontinent, changed/cleaned and brief applied.
--- NOTE | 2022-03-12 22:14 | CRLHL7_ITS ---
For Patients: As a result of the Century Cures Act, medical imaging exams and procedure reports are released immediately into your electronic medical record. You may view this report before your referring provider. If you have questions, please contact your health care provider. INDICATION: All fall, trauma. TECHNIQUE: CT abdomen and pelvis without contrast. COMPARISON: CT March 2021. FINDINGS: Lower chest: Motion in the lung bases degrades evaluation. Peribronchovascular tree-in-bud airspace opacities versus fibrotic change. ABDOMEN: Liver: Diffuse hepatic steatosis. Gallbladder and biliary: Cholecystectomy) normal caliber bile ducts. Spleen: Normal size and attenuation. Pancreas: The noncontrast pancreas is homogeneous in attenuation without peripancreatic inflammatory changes or ductal dilatation. Adrenal glands: Normal adrenal glands. Kidneys and ureters: 1 millimeter nonobstructing interpolar left renal stone. No hydroureteronephrosis. GI tract: The stomach is relatively decompressed. Normal caliber small and large bowel loops. Appendix not definitively visualized. Colonic diverticulosis without diverticulitis. Vascular structures: Normal caliber aorta with atherosclerotic calcifications. Lymph nodes: No lymphadenopathy in the abdomen or pelvis by size criteria. Peritoneum: No free air, free fluid, or focal drainable fluid collection. PELVIS: Genitourinary system: Normal urinary bladder. Hysterectomy. Small right vaginal cuff. Ovaries were not definitively visualized. SKELETAL STRUCTURES AND SOFT TISSUES: Asymmetric atrophy of the right rectus musculature relative to the left. Changes of vertebral augmentation. Multilevel lumbar spondylosis. IMPRESSION: 1. No acute abdominal pelvic process. No obstruction. No hydroureteronephrosis. 2. Nonobstructing punctate left-sided renal stone. 3. Motion in the lung bases degrades evaluation however there are peribronchovascular tree-in-bud airspace opacities versus peribronchovascular fibrotic change. 4. Diffuse hepatic steatosis. Please note that all CT scans at this facility use dose modulation, iterative reconstruction, and/or weight-based dosing when appropriate to reduce radiation dose to as low as reasonably achievable. Dictated by Edward Gaffney MD @ 03/13/2022 12:17:45 AM (Electronically Signed)
--- NOTE | 2022-03-12 22:14 | CRLHL7_ITS ---
For Patients: As a result of the Century Cures Act, medical imaging exams and procedure reports are released immediately into your electronic medical record. You may view this report before your referring provider. If you have questions, please contact your health care provider. Indication: Trauma Technique: Three views Comparison: Chest radiograph November 2020 Findings: Study degraded by decreased signal to noise ratio. Bones: Alignment is normal. No fractures or bone lesions. Old left 5th rib fracture. Joint spaces: Unremarkable. Joint spaces are preserved. No significant degenerative changes. Soft tissues: Unremarkable. Impression: : No acute displaced fracture or malalignment. Dictated by Edward Gaffney MD @ 03/13/2022 12:49:40 AM (Electronically Signed)
--- NOTE | 2022-03-12 22:19 | ED.FALL ---
HPI - Fall General Chief Complaint: Fall/Minor Trauma Stated Complaint: fall Time Seen by Provider: 03/12/22 21:49 History of Present Illness HPI Narrative: This patient is a 72-year-old female comes in by ambulance because of a report of falling 4 times today. She lives in [place] in in assisted living facility. She resides alone there and states that she has been doing well. She states that she fell today because her foot slipped or misstepped. She denies hitting her head or having loss of consciousness. She reports pain in her left side and left shoulder. She has chronic pain and takes oxycodone 2 tablets 3 times a day. She has a dry mouth. Related Data Home Medications Medication Instructions Recorded Confirmed acetaminophen 500 mg tablet 500 mg PO Q8H 10/19/21 03/12/22 amlodipine 5 mg tablet 5 mg PO DAILY 10/19/21 03/12/22 aspirin 81 mg tablet,delayed 81 mg PO DAILY 10/19/21 03/12/22 release dorzolamide 22.3 mg-timolol 6.8 ophthalmic (eye) 10/19/21 mg/mL eye drops duloxetine 60 mg capsule,delayed mg PO 10/19/21 release famotidine 20 mg tablet mg 10/19/21 fluticasone propionate 50 intranasal 10/19/21 mcg/actuation nasal spray,suspension gabapentin 600 mg tablet mg 10/19/21 hydrochlorothiazide 25 mg tablet mg 10/19/21 insulin aspart U-100 100 unit/mL subcut 10/19/21 (3 mL) subcutaneous pen insulin glargine 100 unit/mL (3 unit subcut 10/19/21 mL) subcutaneous pen (Lantus Solostar U-100 Insulin) latanoprost 0.005 % eye drops drp ophthalmic (eye) 10/19/21 lorazepam 0.5 mg tablet mg 10/19/21 nicotine (polacrilex) 2 mg gum mg 10/19/21 oxybutynin chloride 5 mg mg PO 10/19/21 tablet,extended release 24 hr oxycodone 5 mg tablet mg 10/19/21 pantoprazole 40 mg tablet,delayed mg PO 10/19/21 release risperidone 2 mg tablet mg 10/19/21 Allergies Allergy/AdvReac Type Severity Reaction Status Date / Time aspirin Allergy Verified 03/12/22 22:03 bee venom protein (honey bee) Allergy Verified 03/12/22 22:03 ketorolac [From Toradol] Allergy Verified 03/12/22 22:03 losartan Allergy Verified 03/12/22 22:03 NSAIDS (Non-Steroidal Allergy Verified 03/12/22 22:03 Anti-Inflamma Penicillins Allergy Verified 03/12/22 22:03 tramadol Allergy Verified 03/12/22 22:03 varenicline Allergy Verified 03/12/22 22:03 Review of Systems Status of ROS: Reports: 10 or more systems reviewed and unremarkable except as noted in History and below Narrative: Constitutional: No fevers, no weight gain or loss. Eyes: No discharge. No vision changes. HENT: No congestion, no sore throat, no ear pain. Cardiovascular: No chest pain, no palpitations. Respiratory: No shortness of breath, no wheezes, no cough. Gastrointestinal: No vomiting, no diarrhea. She reports abdominal pain in her left side. Genitourinary: No dysuria, no hematuria. Musculoskeletal: Diffuse pain in her left shoulder. Skin: No rashes, no pruritis. Neurological: No dizziness, weakness, sensory change, speech change. Endo/Heme/Allergies: No bruising or bleeding. No polydipsia. Pysch: no suicidality, no anxiety, no insomnia. All other systems reviewed and are negative. [facility] Medical History (Updated 03/13/22 @ 00:10 by Vince Prakash MD) Antisocial personality disorder Anxiety, generalized Asthma Back pain Borderline personality disorder Chronic pain syndrome COPD (chronic obstructive pulmonary disease) Degenerative disc disease, lumbar Diabetes mellitus type 2 in obese Hypertension, essential Nicotine dependence Obesity Osteoarthritis Social History Smoking Status: Never smoker Do you use any of these nicotine containing products: None Second hand tobacco smoke exposure: No How often do you have a drink containing alcohol: never How often do you have six or more drinks on one occasion: Never AUDIT-C Alcohol total score: 0 Non-prescribed substance use: denies use service: No Exam Narrative: Exam Narrative: Constitutional: Well-developed, well-nourished, no acute distress. HEENT: Normocephalic, atraumatic. Dry mouth. Neck: Normal range of motion. Nontender. Supple. Heart: Regular. No murmurs. Tachycardia. Intact distal pulses. Lungs: Clear to auscultation. No chest discomfort. No wheezes, rhonchi, or rales. Abdomen: Normal bowel sounds. Tenderness in the left abdomen. No rebound tenderness. Genitalia: Deferred. Back: No midline tenderness. Normal range of motion. Extremities: Normal range of motion. Diffuse pain is reported in the left shoulder region. There is no point tenderness when palpating along her left upper extremity. Skin: Intact. No rash. Warm. No erythema or pallor. Neurologic: No altered sensation. No weakness. Psychiatric: No suicidality. No anxiety or depression. No insomnia. Nursing notes and vitals signs are reviewed. Const: Vital Signs, click to edit/add: Vital Signs - 24 hr 03/12/22 22:00 Temperature 98.4 F Pulse Rate [Right Pulse Oximeter] 112 H Respiratory Rate 20 Blood Pressure [Ri ght Upper Arm] 145/95 H Pulse Oximetry 95 Oxygen Delivery Me thod Room Air Course Vital Signs Vital signs: Initial Vital Signs Temperature 98.4 F 03/12/22 22:00 Temperature Source Temporal Artery Scan 03/12/22 22:00 Pulse Rate 112 H 03/12/22 22:00 Respiratory Rate 20 03/12/22 22:00 Blood Pressure 145/95 H 03/12/22 22:00 Blood Pressure Mean 111 03/12/22 22:00 Blood Pressure Position Supine 03/12/22 22:00 Pulse Oximetry 95 03/12/22 22:00 Oxygen Delivery Method 03/12/22 22:00 Vital Signs Temperature 98.4 F 03/12/22 22:00 Pulse Rate 112 H 03/12/22 22:00 Respiratory Rate 20 03/12/22 22:00 Blood Pressure 145/95 H 03/12/22 22:00 Pulse Oximetry 95 03/12/22 22:00 Oxygen Delivery Method 03/12/22 22:00 Temperature 98.4 F 03/12/22 22:00 Pulse Rate 112 H 03/12/22 22:00 Respiratory Rate 20 03/12/22 22:00 Blood Pressure 145/95 H 03/12/22 22:00 Pulse Oximetry 95 03/12/22 22:00 Oxygen Delivery Method 03/12/22 22:00 MDM - Fall MDM Narrative Medical decision making narrative: This patient comes in for evaluation of several falls that occurred today. She has a rather dry mouth. She arrives with normal vital signs except for some increased heart rate. Her oximetry decreased after going to x-ray for imaging. Radiology results are yet pending but by my review her shoulder x-ray appears normal without any acute findings. A chest x-ray does show diffuse bilateral infiltrate. She does have leukocytosis and this is suspicious for community-acquired pneumonia. An IV is established and blood cultures are acquired. After blood cultures the patient received Rocephin and Zithromax intravenously. I spoke with Dr. Aguilar from [facility] who agrees to her admission into the hospital after radiology reports come back for the imaging. Lab Data Labs: Lab Results 03/12/22 03/12/22 03/12/22 Range/Units 22:45 22:45 23:40 WBC 15.89 H (4.50-11.00) K/uL RBC 4.32 (4.00-5.20) m/uL Hgb 13.0 (12.0-16.0) gm/dL Hct 39.3 (33.0-51.0) % MCV 91 (80-100) fL MCH 30 (26-34) pg MCHC 33 (32-36) gm/dL RDW Coeff of Rosa 12.4 (11.5-15.5) % Plt Count 227 (140-440) K/uL Neut % (Auto) 65.8 (42.0-72.0) % Lymph % (Auto) 21.8 (20-44) % [place] % (Auto) 10.3 (0.0-11.0) % Eos % (Auto) 1.2 (0.0-7.0) % Baso % (Auto) 0.1 (0.0-3.0) % Neut # (Auto) 10.50 H (1.7-7.0) K/uL Lymph # (Auto) 3.50 H (0.90-2.90) K/uL [place] # (Auto) 1.60 H (0.00-0.90) K/UL Eos # (Auto) 0.20 (0.00-0.50) K/uL Baso # (Auto) 0.00 (0.00-0.30) K/uL Sodium 135 (135-149) mmol/L Potassium 3.2 L (3.6-5.1) mmol/L Chloride 96 (96-114) mmol/L Carbon Dioxide 31 (20-32) mmol/L BUN 9 (7-30) mg/dL Creatinine 0.5 (0.5-1.5) mg/dL Estimated Creat Clear 47.10 Estimated GFR 101 ml/min Glucose 162 H (60-115) mg/dL Calcium 9.8 (8.4-10.6) mg/dL Urine Color Brown A (Yellow) Urine Appearance Clear (Clear) Urine pH 7.0 (5.0-8.5) Ur Specific [place] 1.015 (1.000-1.030) Urine Protein 1+ A (Negative) Urine Glucose (UA) Negative (Negative) Urine Ketones Negative (Negative) Urine Blood Negative (Negative) Urine Nitrite Negative (Negative) Urine Bilirubin 1+ A (Negative) Urine Urobilinogen 4.0 (0.2-1.0) Ur Leukocyte Esterase Negative (Negative) Urine RBC 0-2 (0-2) Urine WBC 0-2 (0-5) Ur Squamous Epith Cells Moderate A (None-Few) Urine Bacteria None (None) Discharge Plan Discharge Clinical Impression: Multiple falls, Pneumonia Patient Disposition: Admitted As Inpatient Condition: Unchanged Prescriptions: No Action acetaminophen 500 mg tablet 500 mg PO Q8H amlodipine 5 mg tablet 5 mg PO DAILY aspirin 81 mg tablet,delayed release (DR/EC) 81 mg PO DAILY latanoprost 0.005 % drops OPHTHALMIC (EYE) gabapentin 600 mg tablet nicotine (polacrilex) 2 mg gum risperidone 2 mg tablet famotidine 20 mg tablet lorazepam 0.5 mg tablet pantoprazole 40 mg tablet,delayed release (DR/EC) PO oxybutynin chloride 5 mg tablet extended release 24 hr PO dorzolamide-timolol 22.3-6.8 mg/mL drops OPHTHALMIC (EYE) hydrochlorothiazide 25 mg tablet fluticasone propionate 50 mcg/actuation spray,suspension INTRANASAL oxycodone 5 mg tablet insulin aspart U-100 100 unit/mL (3 mL) insulin pen SUBCUT duloxetine 60 mg capsule,delayed release(DR/EC) PO insulin glargine [Lantus Solostar U-100 Insulin] 100 unit/mL (3 mL) insulin pen SUBCUT Follow Up/Referrals: Provider,Not a Local [Primary Care Provider] -
[2022-03-12] MEDS: OXYCODONE 5 MG TABLET PO (22:45)
[2022-03-12 22:50] LABS: Basophils Percent Auto 0.1 % (0.0-3.0); Eosinophils Percent Auto 1.2 % (0.0-7.0); Hematocrit 39.3 % (33.0-51.0); Immature Granulocytes Pct Auto 0.8 %; Lymphocytes Percent Auto 21.8 % (20-44); Mean Corpuscular HGB Conc 33 gm/dL (32-36); Mean Corpuscular Hemoglobin 30 pg (26-34); Mean Corpuscular Volume 91 fL (80-100); Monocytes Percent Auto 10.3 % (0.0-11.0); Neutrophils Percent Auto 65.8 % (42.0-72.0); Platelet Count* 227 K/uL (140-440); RDW Coefficient of Variation % 12.4 % (11.5-15.5); Red Blood Count 4.32 m/uL (4.00-5.20); White Blood Count* 15.89 K/uL (4.50-11.00)
[2022-03-12 22:57] LABS: Slide Review Reflex No
[2022-03-12 23:02] LABS: Chloride* 96 mmol/L (96-114); Sodium* 135 mmol/L (135-149)
[2022-03-12 23:03] LABS: Potassium* 3.2 mmol/L (3.6-5.1)
[2022-03-12 23:05] LABS: Carbon Dioxide* 31 mmol/L (20-32); Creatinine* 0.5 mg/dL (0.5-1.5); Estimated Glomerular Filt Rate 101 ml/min
[2022-03-12 23:06] LABS: Blood Urea Nitrogen* 9 mg/dL (7-30); Calcium* 9.8 mg/dL (8.4-10.6); Glucose* 162 mg/dL (60-115)
[2022-03-12 23:30] VITALS: BP 145/72; PULSE 118; RESP 16; O2SAT 93
--- NOTE | 2022-03-12 23:44 | CRLHL7_ITS ---
For Patients: As a result of the Century Cures Act, medical imaging exams and procedure reports are released immediately into your electronic medical record. You may view this report before your referring provider. If you have questions, please contact your health care provider. INDICATION: Hypoxia. TECHNIQUE: Chest 1 view(s) COMPARISON: Chest radiograph dated 12/01/2020. FINDINGS: Heart size is within normal limits. Pulmonary vasculature is obscured. Diffuse central interstitial opacities. Superimposed airspace opacity in the left lower lung. No significant layering pleural effusion, no definite pneumothorax. No acute chest wall abnormality. IMPRESSION: 1. Diffuse central interstitial opacities, likely reflective of pulmonary edema. 2. Superimposed airspace opacity in the left lower lung is worrisome for pneumonia. Dictated by Ronda Cisneros MD @ 03/13/2022 1:24:14 AM (Electronically Signed)
[2022-03-12 23:48] LABS: Appearance Urine Clear (Clear); Bilirubin Urine 1+ (Negative); Blood Urine Negative (Negative); Color Urine Brown (Yellow); Glucose Urine Negative (Negative); Ketones Urine Negative (Negative); Leukocyte Esterase Urine Negative (Negative); Nitrite Urine Negative (Negative); Protein Urine 1+ (Negative); Specific Gravity Urine 1.015 (1.000-1.030)
[2022-03-12 23:52] LABS: RBC Urine 0-2 (0-2); Squamous Epithelial Cell Urine Moderate (None-Few); WBC Urine 0-2 (0-5)
[2022-03-13] VITALS (11 sets, daily range): BP systolic 128–147; BP diastolic 62–99; PULSE 80–116; RESP 14–22; TEMP 36–36.8; O2SAT 90–96; BMI 38.1
[2022-03-13 00:24] LABS: SARS PCR* Negative SARS-CoV-2 (Negative)
[2022-03-13] MEDS: 0.9 % SODIUM CHLORIDE 1000 ml 1,000 ML IV (00:55)
[2022-03-13] MEDS: AZITHROMYCIN 100 MG/ML inj 500 MG IVPB (00:56)
--- NOTE | 2022-03-13 01:13 | PC.NURSE ---
report to Melissa ROSARIO on med surg. pt transferred via cot
[2022-03-13] MEDS: OXYCODONE 5 MG TABLET PO ×4 (01:48→18:49)
--- NOTE | 2022-03-13 01:58 | P.CCN_ITS ---
Subjective Subjective Interval history: Kolby Hawkinsist ADMISSION SUPPORT NOTE eHospitalist was contacted by ED provider with request of admission support for Rena Fan Chief complaint: Falls HPI: Patient is a 72-year-old -[place] woman with hypertension, diabetes, and chronic back pain presented to the emergency department after she fell 4 times today at assisted living. She was complaining of pain in her abdomen and left shoulder, denying hitting her head with any of her 4 falls. She reported that she kept tripping over. In the ED, the patient was found to be hypoxic, chest x-ray suggestive of pneumonia. White count was elevated at 15,000, UA not suggestive of UTI. Heart rate elevated in the 100s. Left shoulder x-ray and CT abdomen pelvis did not show any acute abnormality. Patient diagnosed with sepsis secondary to community-acquired pneumonia, blood culture and lactic acid were collected, started on IV antibiotic and admitted to the hospital for further work-up and management. Assessment and Plan: Sepsis secondary to community-acquired pneumonia Acute hypoxic respiratory failure secondary to pneumonia Recurrent falls and unsteady gait secondary to acute illness Chronic back pain Diabetes mellitus IV ceftriaxone and azithromycin for community-acquired pneumonia Keep patient on oxygen with target sats around 92% As needed oxycodone for back pain PT/OT consult Insulin sliding scale Home medication list pending reconciliation Physical exam General: Sleepy [cooperative], in moderate distress due to her back pain HEENT: [ oral mucosa pink and moist without erythema] Lungs: [good] air entry bilaterally, [no] crackle, [no] wheezes CV: Tachycardic, [regular rhythm], [no loud murmur] Abd: [bowel sounds present], [denies tenderness and does not exhibit signs of pain with palpation done by bedside nurse] Ext: [no] pitting edema noted Skin: [no rashes, or bruises appreciated on gross visualization of exposed skin] Neuro: [alert,] oriented [x 3]. [ moves all extremities without any significant focal deficit appreciated by nurse] Araseli Aguilar MD [Chart review was performed] [as well as evaluation of the patient via video]. Thank you for including Kolby Armando in the patients care. This serv ice is available for further assistance as requested by your care team by calling [phone]. Objective Objective Data Details:
[2022-03-13] MEDS: cefTRIAXone 2 GM in 0.9 % SODIUM CHLORIDE Mini-bag 100 ML IVPB (02:21)
[2022-03-13 03:04] LABS: Lactate Sepsis w/Reflex* 0.8 mmol/L (0.5-1.9)
--- NOTE | 2022-03-13 05:09 | PC.NURSE ---
Pt arrived to floow approx 0130, c/o 10 back and hand pain, sleepy during admission and assessment/cares. Slept remainder of night after admission complete.
[2022-03-13] MEDS: FUROSEMIDE 10 MG/ML inj 20 MG IVP ×2 (08:45→16:10)
[2022-03-13] MEDS: POTASSIUM BICARB 25 MEQ EFFERVESCENT TAB 50 MEQ PO (08:46)
[2022-03-13] MEDS: SODIUM CHLORIDE 0.9 % (FLUSH) 10 ML SYRINGE 5 ML IVF ×3 (08:52→20:44)
[2022-03-13 09:28] LABS: Influenza Type A Negative (Negative); Influenza Type B Negative (Negative)
[2022-03-13 09:35] LABS: Basophils Percent Auto 0.2 % (0.0-3.0); Hematocrit 38.1 % (33.0-51.0); Hemoglobin* 12.7 gm/dL (12.0-16.0); Immature Granulocytes Pct Auto 0.5 %; Lymphocytes Percent Auto 17.8 % (20-44); Mean Corpuscular HGB Conc 33 gm/dL (32-36); Mean Corpuscular Hemoglobin 30 pg (26-34); Mean Corpuscular Volume 91 fL (80-100); Monocytes Percent Auto 10.7 % (0.0-11.0); Neutrophils Percent Auto 69.8 % (42.0-72.0); Platelet Count* 225 K/uL (140-440); RDW Coefficient of Variation % 12.4 % (11.5-15.5); Red Blood Count 4.18 m/uL (4.00-5.20); White Blood Count* 13.28 K/uL (4.50-11.00)
[2022-03-13 09:43] LABS: Slide Review Reflex No
[2022-03-13 09:48] LABS: Chloride* 97 mmol/L (96-114); Potassium* 3.6 mmol/L (3.6-5.1); Sodium* 137 mmol/L (135-149)
[2022-03-13 09:51] LABS: Creatinine* 0.5 mg/dL (0.5-1.5); Estimated Glomerular Filt Rate 101 ml/min
[2022-03-13 09:52] LABS: Blood Urea Nitrogen* 9 mg/dL (7-30); Calcium* 9.5 mg/dL (8.4-10.6); Carbon Dioxide* 31 mmol/L (20-32); Glucose* 169 mg/dL (60-115); Magnesium* 1.4 mg/dL (1.5-2.6)
[2022-03-13 09:55] LABS: C Reactive Protein* 6.6 mg/dL (0.5-1.0)
[2022-03-13 10:12] LABS: Troponin I* < 0.01 ng/mL (0.01-0.04)
[2022-03-13] MEDS: NICOTINE 7 MG PATCH 1 PATCH TRANSDERMA (10:31)
--- NOTE | 2022-03-13 10:56 | RESP.RT ---
Patient on room air lying on right side, breath sounds with inspiratory/expiratory crackles noted all whitehead with right upper lobe expiratory wheeze. Patient has Hx of asthma. Patient has fair non-productive cough, able to clear secretions when present.
[2022-03-13] MEDS: ACETAMINOPHEN 500 MG TABLET PO ×2 (13:50→20:39)
[2022-03-13] MEDS: GABAPENTIN 600 MG TABLET PO ×2 (13:50→20:37)
[2022-03-13] MEDS: AZITHROMYCIN 250 MG TABLET 500 MG PO (13:50)
[2022-03-13] MEDS: 0.9 % SODIUM CHLORIDE 250 ml IV (13:51)
[2022-03-13] MEDS: cefTRIAXone 1 GM in 0.9 % SODIUM CHLORIDE Mini-bag 100 ML IVPB (13:51)
[2022-03-13] MEDS: CARBOXYMETHYLCELLULOSE (REFRESH PLUS) TEARS 1 DROP EYE-BOTH ×2 (13:51→16:11)
--- NOTE | 2022-03-13 15:00 | PC.NURSE ---
End of Shift: Patient cooperative. Patient vitally stable, lungs with crackles, BS WNL, IV SL. Patient SBA with walker. Patient tele=NSR. Patient always rates pain in back 10/10, 5 mg of oxy given x2, and scheduled tylenol. Patient calls to uses toilet but is also incontinent with brief, patient had 1 large BM. Patient tolerating regular diet. Patient blood sugar for lunch was 240.
--- NOTE | 2022-03-13 15:27 | P.IMHP_ITS ---
Hospitalist- H&P: HPI History of Present Illness Date Seen: 03/13/22 Chief complaint: fall Narrative: Rena Fan is a 72 year old female admitted to the hospital after recurrent falls at her residence at [place]. She reportedly fell 4 times yesterday. Patient is unable to tell me what leads to the falls. She is normally nonambulatory but transfers chair to ill electric scooter which is her way of getting around. She does tell me she does transfers independently. She also has chronic back pain for which she is on chronic opioid therapy. In the emergency department evaluation showed findings consistent with heart failure and possibly pneumonia. She was started on antibiotics, ceftriaxone azithromycin for community-acquired pneumonia and furosemide now for her presumed heart failure. There was no serious identified injury, no serious other identified illness. Patient does acknowledge that she has had some chest pain, subjective fever, cough the last few days. No abdominal pain, nausea, vomiting. She has been eating normally. Nursing staff indicate that she has mostly been sleeping since admission but that when she does wake up she is asking for more pain medicine. She tells me that she wants to continue on her oxycodone 10 mg every 8 hours. Because her sedation and altered mental status and falling down I recommended oxycodone 4 mg every 4 hours p.r.n.. Patient also has been on lorazepam 0.5 mg t.i.d., Ambien 5 mg at bedtime and gabapentin 600 mg t.i.d.. Lorazepam will be held. Change Ambien to p.r.n. at bedtime and continue gabapentin for now. Review of Systems Narrative: Complete Review of systems is unremarkable except as noted above [facility] Medical History (Updated 03/13/22 @ 15:41 by Cristian Pena MD) Antisocial personality disorder Anxiety, generalized Asthma Back pain Borderline personality disorder Chronic pain syndrome Chronic, continuous use of opioids COPD (chronic obstructive pulmonary disease) Degenerative disc disease, lumbar Diabetes mellitus type 2 in obese Heart failure Hypertension, essential Nicotine dependence Obesity Osteoarthritis Physical deconditioning Polypharmacy Surgical History (Updated 03/13/22 @ 15:34 by Cristian Pena MD) History of cholecystectomy History of total knee arthroplasty Family History (Updated 03/13/22 @ 15:35 by Cristian Pena MD) Father Stomach cancer Brother Heart disease Social History (Updated 03/13/22 @ 15:36 by Cristian Pena MD) Narrative: Patient is a resident of [facility]. She tells me she has been smoking 2 or 3 cigarettes per day. She is attempting to quit. She does not drink alcohol. Her healthcare power of invoice checker would be her son Korey Miles, code status is full. Smoking Status: Former smoker What tobacco products do you use: cigarettes Smoking quit date/years: <= 15 years ago Do you use any of these nicotine containing products: None Nicotine containing products detail: quit today Second hand tobacco smoke exposure: No How often do you have a drink containing alcohol: never How often do you have six or more drinks on one occasion: Never AUDIT-C Alcohol total score: 0 Non-prescribed substance use: denies use Caffeine: Yes (coke) service: No Meds Home Medications and Allergies Home Medications Medication Instructions Recorded Confirmed Type acetaminophen 500 mg tablet 500 mg PO TID 10/19/21 03/13/22 History amlodipine 5 mg tablet 5 mg PO DAILY 10/19/21 03/12/22 History aspirin 81 mg tablet,delayed 81 mg PO DAILY 10/19/21 03/12/22 History release dorzolamide 22.3 mg-timolol 6.8 1 drp ophthalmic (eye) BID 10/19/21 03/13/22 History mg/mL eye drops duloxetine 60 mg capsule,delayed 120 mg PO DAILY 10/19/21 03/13/22 History release famotidine 20 mg tablet 20 mg PO HS 10/19/21 03/13/22 History fluticasone propionate 50 2 spray intranasal DAILY 10/19/21 03/13/22 History mcg/actuation nasal spray,suspension gabapentin 600 mg tablet 600 mg PO TID 10/19/21 03/13/22 History hydrochlorothiazide 25 mg tablet 25 mg PO DAILY 10/19/21 03/13/22 History insulin aspart U-100 100 unit/mL 1 sliding scale dose subcut 10/19/21 03/13/22 History (3 mL) subcutaneous pen BID@ insulin glargine 100 unit/mL (3 40 unit subcut HS 10/19/21 03/13/22 History mL) subcutaneous pen (Lantus Solostar U-100 Insulin) latanoprost 0.005 % eye drops 1 drp ophthalmic (eye) HS 10/19/21 03/13/22 History lorazepam 0.5 mg tablet 0.5 mg PO Q8H 10/19/21 03/13/22 History nicotine (polacrilex) 2 mg gum 2 mg buccal PRN 10/19/21 03/13/22 History oxybutynin chloride 5 mg 5 mg PO HS 10/19/21 03/13/22 History tablet,extended release 24 hr oxycodone 5 mg tablet 10 mg PO TID 10/19/21 03/13/22 History pantoprazole 40 mg tablet,delayed 40 mg PO DAILY 10/19/21 03/13/22 History release risperidone 2 mg tablet 2 mg PO BID 10/19/21 03/13/22 History albuterol sulfate 90 mcg/actuation 1 puff inhalation DAILY PRN 03/13/22 03/13/22 History aerosol inhaler (Ventolin HFA) atorvastatin 10 mg tablet 10 mg PO HS 03/13/22 03/13/22 History carboxymethylcellulose sodium 0.5 1 drp ophthalmic (eye) TID PRN 03/13/22 03/13/22 History % eye drops in a dropperette (Lubricating Plus) cetirizine 10 mg tablet 10 mg PO DAILY PRN 03/13/22 03/13/22 History cholecalciferol (vitamin D3) 25 1,000 unit PO DAILY 03/13/22 03/13/22 History mcg (1,000 unit) tablet diclofenac sodium 1 % topical gel 2 g topical QID PRN 03/13/22 03/13/22 History epinephrine 0.3 mg/0.3 mL 0.3 mg IM PRN PRN 03/13/22 03/13/22 History injection, auto-injector hydroxyzine HCl 25 mg tablet 25 mg PO TID PRN 03/13/22 03/13/22 History nicotine 21 mg/24 hr daily 1 patch topical DAILY 03/13/22 03/13/22 History transdermal patch ondansetron 4 mg disintegrating 4 mg PO Q6H PRN 03/13/22 03/13/22 History tablet peg 400-propylene glycol 0.4 %-0.3 1 drp ophthalmic (eye) QID 03/13/22 03/13/22 History % eye drops (Systane Ultra) polyethylene glycol 3350 17 17 g PO DAILY 03/13/22 03/13/22 History gram/dose oral powder (Gavilax) sitagliptin phosphate 100 mg 100 mg PO DAILY 03/13/22 03/13/22 History tablet (Januvia) zolpidem 5 mg tablet 5 mg PO HS 03/13/22 03/13/22 History Allergies Allergy/AdvReac Type Severity Reaction Status Date / Time aspirin Allergy Verified 03/12/22 22:03 bee venom protein (honey bee) Allergy Verified 03/12/22 22:03 ketorolac [From Toradol] Allergy Verified 03/12/22 22:03 losartan Allergy Verified 03/12/22 22:03 NSAIDS (Non-Steroidal Allergy Verified 03/12/22 22:03 Anti-Inflamma Penicillins Allergy Verified 03/12/22 22:03 tramadol Allergy Verified 03/12/22 22:03 varenicline Allergy Verified 03/12/22 22:03 Exam Narrative: Exam Narrative: She is alert and appears in no distress. Speech is normal. She is somewhat hard of hearing. Oropharynx with very small airway due to prominent tongue. Neck is supple without mass or adenopathy. No stridor. Respirations are clear to auscultation except a few basilar crackles. No wheezing. Cardiovascular: S1, S2, regular rate and rhythm. No murmur gallop or rub. Abdomen: Bowel sounds active. Abdomen is soft without tenderness or mass Const: Vital Signs, click to edit/add: Vital Signs - 24 hr 03/12/22 22:00 03/13/22 01:10 03/13/22 00:30 Temperature 98.4 F Pulse Rate Pulse Rate [Pulse Oximeter] Pulse Rate [Right Pulse Oximeter] 112 H 104 H Respiratory Rate 20 16 Blood Pressure [Le ft Arm] Blood Pressure [Ri ght Upper Arm] 145/95 H 133/71 Pulse Oximetry 95 96 95 Oxygen Delivery Me thod Room Air Nasal Cannula Nasal Cannula Oxygen Flow Rate 2 2 03/13/22 00:00 03/13/22 00:00 03/12/22 23:30 Temperature Pulse Rate Pulse Rate [Pulse Oximeter] Pulse Rate [Right Pulse Oximeter] 113 H 118 H Respiratory Rate 14 16 Blood Pressure [Le ft Arm] Blood Pressure [Ri ght Upper Arm] 137/77 145/72 H Pulse Oximetry 95 91 93 Oxygen Delivery Me thod Nasal Cannula Nasal Cannula Oxygen Flow Rate 2 2 03/13/22 01:56 03/13/22 01:56 03/13/22 01:56 Temperature 98.0 F 98.0 F Pulse Rate Pulse Rate [Pulse Oximeter] 109 H Pulse Rate [Right Pulse Oximeter] Respiratory Rate 20 20 Blood Pressure [Le ft Arm] 128/89 128/89 Blood Pressure [Ri ght Upper Arm] Pulse Oximetry 95 95 95 Oxygen Delivery Me thod Nasal Cannula Nasal Cannula Nasal Cannula Oxygen Flow Rate 1 1 1 03/13/22 07:00 03/13/22 07:00 03/13/22 10:52 Temperature 98.2 F Pulse Rate Pulse Rate [Pulse Oximeter] 116 H 116 H Pulse Rate [Right Pulse Oximeter] Respiratory Rate 20 20 22 Blood Pressure [Le ft Arm] 142/87 H Blood Pressure [Ri ght Upper Arm] Pulse Oximetry 92 92 Oxygen Delivery Me thod Room Air Room Air Oxygen Flow Rate 03/13/22 11:00 03/13/22 11:00 Temperature 97.7 F Pulse Rate 104 H Pulse Rate [Pulse Oximeter] 112 H Pulse Rate [Right Pulse Oximeter] Respiratory Rate 14 Blood Pressure [Le ft Arm] 147/99 H Blood Pressure [Ri ght Upper Arm] Pulse Oximetry 92 Oxygen Delivery Me thod Room Air Oxygen Flow Rate Documenting provider has reviewed patient's vital signs: yes Hospitalist - H&P: Result Labs Labs: Short CBC 03/12/22 03/13/22 Range/Units 22:45 09:27 WBC 15.89 H 13.28 H (4.50-11.00) K/uL Hgb 13.0 12.7 (12.0-16.0) gm/dL Hct 39.3 38.1 (33.0-51.0) % Plt Count 227 225 (140-440) K/uL BMP 03/12/22 03/13/22 22:45 09:27 Sodium 135 137 Potassium 3.2 L 3.6 Chloride 96 97 Carbon Dioxide 31 31 BUN 9 9 Creatinine 0.5 0.5 Glucose 162 H 169 H Calcium 9.8 9.5 Cardiac Enzymes 03/13/22 Range/Units 09:27 Troponin I < 0.01 L (0.01-0.04) ng/mL Urine 03/12/22 Range/Units 23:40 Urine Color Brown A (Yellow) Urine Appearance Clear (Clear) Urine pH 7.0 (5.0-8.5) Ur Specific [place] 1.015 (1.000-1.030) Urine Protein 1+ A (Negative) Urine Glucose (UA) Negative (Negative) Assessment and Plan Assessment and plan (1) Pneumonia: Problem comment: Community-acquired pneumonia. Ceftriaxone and azithromycin Status: Acute (2) Heart failure: Problem comment: New diagnosis of heart failure. Start diuretic. Obtain echocardiogram. Status: Acute (3) Polypharmacy: Problem comment: Chronically takes oxycodone 10 mg 3 times a day, lorazepam 0.5 mg 3 times a day, zolpidem 5 mg at bedtime, gabapentin 600 mg 3 times a day. Will change oxycodone to 5 mg every 4 hours as needed and discontinue lorazepam. Status: Acute (4) Chronic, continuous use of opioids: Problem comment: Consider switching to Suboxone as an outpatient Status: Acute (5) Nicotine dependence: Problem comment: Reduce nicotine patch to 7 mg. Patient reports smoking 2 or 3 cigarettes per day. Status: Acute (6) Multiple falls: Problem comment: Due to acute illness on top of chronic weakness and deconditioning. Patient quite weak today. Unable to even arouse for evaluation with Occupational therapy Status: Acute (7) Physical deconditioning: Problem comment: Patient uses a scooter to get around. Self transfers but minimal ambulation. Status: Acute Plan Continue in hospital for treatment of pneumonia and heart failure and evaluation of falls with therapy. This is to determine ability to return to [place]. Total time spent today is 75 minutes, 50 minutes in coordination of care discussing with patient other providers ongoing evaluation management of heart failure, pneumonia, weakness
[2022-03-13] MEDS: POTASSIUM CHLORIDE 10 MEQ CAPSULE ER PO (18:49)
[2022-03-13] MEDS: hydrOXYzine pamoate 25 MG CAPSULE PO (20:37)
[2022-03-13] MEDS: FAMOTIDINE 20 MG TABLET PO (20:39)
[2022-03-13] MEDS: ATORVASTATIN 10 MG TABLET PO (20:39)
[2022-03-13] MEDS: LATANOPROST 0.005% OPHTH 1 DROP EYE-BOTH (20:41)
[2022-03-13] MEDS: risperiDONE 1 MG TABLET 2 MG PO (20:43)
[2022-03-13] MEDS: DORZOLAMIDE/TIMOLOL 2-0.5% OPHTH 1 DROP EYE-BOTH (20:44)
[2022-03-14] VITALS (9 sets, daily range): BP systolic 133–155; BP diastolic 80–104; PULSE 72–97; RESP 16–20; TEMP 36.3–36.6; O2SAT 93–96
[2022-03-14] MEDS: OXYCODONE 5 MG TABLET PO ×5 (02:42→19:51)
--- NOTE | 2022-03-14 05:15 | PC.NURSE ---
Shift note:Pt complained of back pain of 10/10, Oxycodone PRN was given and was effective. Pt has been on 1L oxygen to maintain the O2 above 90%. Has been in bed throughout the shift. No SOB, cough and N/V noted. Hourly rounds done and bed alarm in place to prevent further falls.
[2022-03-14] MEDS: POTASSIUM CHLORIDE 10 MEQ CAPSULE ER PO ×2 (08:24→19:21)
[2022-03-14] MEDS: MAGNESIUM SULFATE 2 GM/50 ML PIGGYBACK IVPB (08:25)
[2022-03-14] MEDS: DULOXETINE 30 MG CAPSULE DR 120 MG PO (10:20)
[2022-03-14] MEDS: polyethylene glycoL 3350 17 GM PACK PO (10:20)
[2022-03-14] MEDS: FLUTICASONE PROPIONATE NASAL 2 SPRAY NOSTRIL-B (10:20)
[2022-03-14] MEDS: ACETAMINOPHEN 500 MG TABLET PO ×3 (10:22→19:49)
[2022-03-14] MEDS: risperiDONE 1 MG TABLET 2 MG PO ×2 (10:23→19:52)
[2022-03-14] MEDS: SITAGLIPTIN PHOSPHATE 50 MG TABLET 100 MG PO (10:24)
[2022-03-14] MEDS: OMEPRAZOLE 20 MG CAPSULE DR 40 MG PO (10:25)
[2022-03-14] MEDS: DORZOLAMIDE/TIMOLOL 2-0.5% OPHTH 1 DROP EYE-BOTH ×2 (10:26→19:48)
[2022-03-14] MEDS: ASPIRIN 81 MG TABLET EC PO (10:26)
[2022-03-14] MEDS: MAGNESIUM OXIDE 400 MG TABLET PO (10:28)
[2022-03-14] MEDS: AMLODIPINE 5 MG TABLET PO (10:29)
[2022-03-14] MEDS: GABAPENTIN 600 MG TABLET PO ×3 (10:29→19:49)
[2022-03-14] MEDS: NICOTINE 7 MG PATCH 1 PATCH TRANSDERMA (10:29)
[2022-03-14] MEDS: CARBOXYMETHYLCELLULOSE (REFRESH PLUS) TEARS 1 DROP EYE-BOTH ×3 (10:30→21:44)
[2022-03-14 11:11] LABS: Chloride* 98 mmol/L (96-114); Sodium* 136 mmol/L (135-149)
[2022-03-14 11:11] LABS: Basophils Absolute Auto 0.03 K/uL (0.00-0.30); Basophils Percent Auto 0.3 % (0.0-3.0); Eosinophils Absolute Auto 0.24 K/uL (0.00-0.50); Eosinophils Percent Auto 2.2 % (0.0-7.0); Hematocrit 39.4 % (33.0-51.0); Hemoglobin* 12.8 gm/dL (12.0-16.0); Immature Granulocytes Abs Auto 0.02 K/uL (0.00-0.30); Immature Granulocytes Pct Auto 0.2 %; Lymphocytes Percent Auto 17.7 % (20-44); Mean Corpuscular HGB Conc 33 gm/dL (32-36); Mean Corpuscular Hemoglobin 30 pg (26-34); Mean Corpuscular Volume 93 fL (80-100); Monocytes Percent Auto 7.3 % (0.0-11.0); Neutrophils Percent Auto 72.3 % (42.0-72.0); Platelet Count* 241 K/uL (140-440); RDW Coefficient of Variation % 12.5 % (11.5-15.5); Red Blood Count 4.23 m/uL (4.00-5.20); White Blood Count* 10.95 K/uL (4.50-11.00)
[2022-03-14 11:12] LABS: Potassium* 3.7 mmol/L (3.6-5.1)
[2022-03-14 11:14] LABS: Carbon Dioxide* 34 mmol/L (20-32); Creatinine* 0.5 mg/dL (0.5-1.5); Estimated Glomerular Filt Rate 101 ml/min
[2022-03-14 11:15] LABS: Blood Urea Nitrogen* 10 mg/dL (7-30); Calcium* 9.3 mg/dL (8.4-10.6); Glucose* 243 mg/dL (60-115)
[2022-03-14 11:20] LABS: Slide Review Reflex No
[2022-03-14] MEDS: SENNOSIDES 1 TAB TABLET PO ×2 (12:25→19:51)
[2022-03-14] MEDS: AZITHROMYCIN 250 MG TABLET 500 MG PO (13:36)
[2022-03-14] MEDS: cefTRIAXone 1 GM in 0.9 % SODIUM CHLORIDE Mini-bag 100 ML IVPB (13:37)
[2022-03-14] MEDS: TORSEMIDE 20 MG TABLET PO (13:37)
--- NOTE | 2022-03-14 13:55 | PC.SOCIAL ---
Social work: Called [facility] where resident lives and spoke with nurse, Moriah, to clarify assistance pt has available at their facility. Moriah states pt is independent with most things but receives assistance with medication management, bedding changes, shower set up (not supervision or assistance), Meals provided and call light in her main room and bathroom. Moriah states they are unable to do regular checks on residents, but if she calls light for assistance they could assist with more cares if needed at discharge.
--- NOTE | 2022-03-14 15:26 | P.IMPN_ITS ---
Progress Note: A&P Assessment and plan (1) Pneumonia: Problem details: Community-acquired pneumonia. Ceftriaxone and azithromycin . Appears better today Status: Acute (2) Heart failure: Problem details: appears better today. New diagnosis of heart failure. Obtain echocardiogram. start torsemide and monitor respiratory, fluid and electrolyte status. Status: Acute (3) Polypharmacy: Problem details: Chronically takes oxycodone 10 mg 3 times a day, lorazepam 0.5 mg 3 times a day, zolpidem 5 mg at bedtime, gabapentin 600 mg 3 times a day. Will change oxycodone to 5 mg every 4 hours as needed and discontinue lorazepam. Status: Acute (4) Chronic, continuous use of opioids: Problem details: Patient is at high risk for complications from opioids plus other sided active medicines including lorazepam and gabapentin. Would like to transition her to thinking of opioids as a medication to improve her activity rather than to make her comfortable so she can sleep all day. Consider switching to Suboxone as an outpatient. Status: Acute (5) Nicotine dependence: Problem details: Reduce nicotine patch to 7 mg. Patient reports smoking 2 or 3 cigarettes per day. Status: Acute (6) Multiple falls: Problem details: Due to acute illness on top of chronic weakness and deconditioning. Patient quite weak today. Unable to even arouse for evaluation with Occupational therapy Status: Acute (7) Physical deconditioning: Problem details: Patient uses a scooter to get around. Self transfers but minimal ambulation. would like her to participate with physical therapy to determine if she can return to her formal level of functioning. Currently resisting therapy. Encouraging her to think of oxycodone as medicine to help her be more active rather than help her sleep more. Status: Acute (8) Sleep apnea with hypersomnolence: Problem details: tentative clinical diagnosis. Check blood gas. Recommend outpatient sleep study. Caution with supplemental oxygen. Caution with sedating drugs Status: Acute Plan continue in hospital for management of heart failure and pneumonia. Encourage participation with therapy to improve function Ng with a goal of returning to [place]. Recommend increased physical activity while in the hospital as well as after discharge so she can maintain her independence. She is resistant to this at this time Time Spent With Patient Total time spent: total time spent today is 40 minutes, 30 minutes in coordination of care discussing with patient and other providers management of disability, heart failure and pneumonia Subjective Date Seen: 03/14/22 Interval history: 72-year-old female seen in followup of heart failure, pneumonia, chronic pain. Patient reports that she is feeling no better. Primarily concerned about her chronic back pain. She has been getting oxycodone 5 mg every 4 hours rather than 8 mg every 8 hours due to perceived excess sedation and problems with falling down. Patient is still sleeping most the time but easy to arouse. She is refusing to participate in therapy. She has now weaned off of oxygen. Exam Narrative: Exam Narrative: She is lying in bed and appears in no distress. Small airway. No jugular distension. Respirations are clear to auscultation except for rare basilar crackle. Cardiovascular: S1, S2, regular rate and rhythm. No murmur gallop or rub. Abdomen: Bowel sounds active. Abdomen is soft without tenderness or mass. Extremities without significant edema. Const: Vital Signs, click to edit/add: Vital Signs - 24 hr 03/13/22 20:39 03/13/22 19:00 03/13/22 23:00 Temperature 97.9 F 98 F Pulse Rate 86 Pulse Rate [Pulse Oximeter] 87 Respiratory Rate 16 Blood Pressure [Le ft Arm] Pulse Oximetry 90 Oxygen Delivery Me thod Room Air Oxygen Flow Rate 1 03/13/22 23:00 03/13/22 23:00 03/14/22 02:54 Temperature 96.8 F L 97.4 F L Pulse Rate Pulse Rate [Pulse Oximeter] 80 94 Respiratory Rate 16 16 16 Blood Pressure [Le ft Arm] 141/80 H 141/80 H Pulse Oximetry 95 93 Oxygen Delivery Me thod Room Air Room Air Oxygen Flow Rate 1 1 03/14/22 07:53 03/14/22 08:20 03/14/22 12:00 Temperature 97.9 F 97.6 F Pulse Rate 87 Pulse Rate [Pulse Oximeter] 97 72 Respiratory Rate 18 18 Blood Pressure [Le ft Arm] 155/81 H 133/82 Pulse Oximetry 94 96 Oxygen Delivery Me thod Room Air Room Air Oxygen Flow Rate Documenting provider has reviewed patient's vital signs: yes Labs Labs: Laboratory Results - last 24 hr 03/14/22 03/14/22 10:20 11:00 WBC 10.95 RBC 4.23 Hgb 12.8 Hct 39.4 MCV 93 MCH 30 MCHC 33 RDW Coeff of Rosa 12.5 Plt Count 241 Neut % (Auto) 72.3 H Lymph % (Auto) 17.7 L [place] % (Auto) 7.3 Eos % (Auto) 2.2 Baso % (Auto) 0.3 Neut # (Auto) 7.90 H Lymph # (Auto) 1.90 [place] # (Auto) 0.80 Eos # (Auto) 0.24 Baso # (Auto) 0.03 Sodium 136 Potassium 3.7 Chloride 98 Carbon Dioxide 34 H BUN 10 Creatinine 0.5 Estimated Creat Clear 47.10 Estimated GFR 101 Glucose 243 H Calcium 9.3
--- NOTE | 2022-03-14 16:06 | PC.NURSE ---
shift note: vss stable. pt up 1/walker. Pt has slow gait. pt rating lower back pain 10/27. pt medicated with prn oxycodone. pt had blood sugar 132,174. Pt has good appetite. Ls with crkls to LLL and mid Lt lobe posteriorly. Pt denies sob. No cough. sats 96% RA. IV patent to Rt hand
[2022-03-14] MEDS: hydrOXYzine pamoate 25 MG CAPSULE PO (16:14)
[2022-03-14] MEDS: FAMOTIDINE 20 MG TABLET PO (19:49)
[2022-03-14] MEDS: ATORVASTATIN 10 MG TABLET PO (19:51)
[2022-03-14] MEDS: LATANOPROST 0.005% OPHTH 1 DROP EYE-BOTH (19:53)
[2022-03-14] MEDS: SODIUM CHLORIDE 0.9 % (FLUSH) 10 ML SYRINGE 5 ML IVF (19:53)
[2022-03-14] MEDS: ZOLPIDEM 5 MG TABLET PO (21:46)
[2022-03-15] VITALS (9 sets, daily range): BP systolic 142–163; BP diastolic 83–95; PULSE 86–99; RESP 18–20; TEMP 36.3–36.8; O2SAT 90–94
[2022-03-15] MEDS: OXYCODONE 5 MG TABLET PO ×5 (00:18→22:11)
[2022-03-15] MEDS: hydrOXYzine pamoate 25 MG CAPSULE PO (00:18)
--- NOTE | 2022-03-15 01:39 | PC.NURSE ---
Shift Note [id number]: Pt cooperative with moving to chair for supper. She has been walking with assist x1 with GB and walker to the BR and back several times this evening. Pt is assisting in repositioning herself in bed. She continues to request pain meds multiple times prior to next available dose but has been easily redirected. 5mg Oxycodone given PRN Q4H and Vistaril given PRN. Ambien PRN at HS. Pt has declined extra pillows between her knees, ice, and/or Aqua-K pad at this time. VS otherwise WNL. Afebrile. BG= 141 & 199. Tele=NSR. Nicotine patch in place.
--- NOTE | 2022-03-15 06:03 | PC.NURSE ---
Patient was alert to drowsy and oriented x4. VSS. She requested oxycodone for back and side pain at 0415. She remains NSR on tele. She denies all other concerns at this time.
--- NOTE | 2022-03-15 08:12 | CRLHL7_ITS ---
For Patients: As a result of the Century Cures Act, medical imaging exams and procedure reports are released immediately into your electronic medical record. You may view this report before your referring provider. If you have questions, please contact your health care provider. Indication: Pneumonia, CHF. Technique: Chest 2 views. Comparison: 03/12/2022. Findings/Impression: Cardiovascular and mediastinum: Heart size and vasculature are normal in caliber and appearance. Lungs and pleural spaces: Bilateral lower lobe infiltrates persist but have improved. Pulmonary vascular congestion has improved. No effusions and no pneumothorax. Bones and soft tissues: No significant findings. Dictated by Edu Mackay MD @ 03/15/2022 10:15:04 AM (Electronically Signed)
[2022-03-15 09:30] LABS: HCO3 VBG 36 mmol/L (21-28); Ionized Calcium* 1.06 mmol/L (1.11-1.30); PCO2 VBG 46 mmHG (40-50); pH VBG 7.495 (7.32-7.43)
[2022-03-15 09:33] LABS: Hematocrit 38.6 % (33.0-51.0); Hemoglobin* 12.3 gm/dL (12.0-16.0); Mean Corpuscular HGB Conc 32 gm/dL (32-36); Mean Corpuscular Hemoglobin 30 pg (26-34); Mean Corpuscular Volume 94 fL (80-100); Platelet Count* 245 K/uL (140-440); Red Blood Count 4.11 m/uL (4.00-5.20)
[2022-03-15 09:42] LABS: Slide Review Reflex No
[2022-03-15 10:22] LABS: Blood Urea Nitrogen* 14 mg/dL (7-30); Carbon Dioxide* 34 mmol/L (20-32); Chloride* 100 mmol/L (96-114); Creatinine* 0.5 mg/dL (0.5-1.5); Estimated Glomerular Filt Rate 101 ml/min; Potassium* 3.4 mmol/L (3.6-5.1); Sodium* 139 mmol/L (135-149)
[2022-03-15 10:23] LABS: C Reactive Protein* 3.7 mg/dL (0.5-1.0); Glucose* 154 mg/dL (60-115); Magnesium* 1.6 mg/dL (1.5-2.6)
[2022-03-15 10:25] LABS: Procalcitonin* 0.12 ng/mL (<0.50)
[2022-03-15] MEDS: risperiDONE 1 MG TABLET 2 MG PO ×2 (10:28→21:15)
[2022-03-15] MEDS: SENNOSIDES 1 TAB TABLET PO ×2 (10:28→21:15)
[2022-03-15] MEDS: DULOXETINE 30 MG CAPSULE DR 120 MG PO (10:28)
[2022-03-15] MEDS: TORSEMIDE 20 MG TABLET PO (10:29)
[2022-03-15] MEDS: SITAGLIPTIN PHOSPHATE 50 MG TABLET 100 MG PO (10:29)
[2022-03-15] MEDS: ASPIRIN 81 MG TABLET EC PO (10:29)
[2022-03-15] MEDS: OMEPRAZOLE 20 MG CAPSULE DR 40 MG PO (10:29)
[2022-03-15] MEDS: POTASSIUM CHLORIDE 10 MEQ CAPSULE ER PO ×2 (10:30→18:05)
[2022-03-15] MEDS: AMLODIPINE 5 MG TABLET PO (10:30)
[2022-03-15] MEDS: GABAPENTIN 600 MG TABLET PO ×3 (10:30→21:15)
[2022-03-15] MEDS: levoFLOXacin 500 MG TABLET PO (10:30)
[2022-03-15] MEDS: polyethylene glycoL 3350 17 GM PACK PO (10:31)
[2022-03-15] MEDS: NICOTINE 7 MG PATCH 1 PATCH TRANSDERMA (10:31)
[2022-03-15] MEDS: MAGNESIUM OXIDE 400 MG TABLET PO (10:31)
[2022-03-15] MEDS: DORZOLAMIDE/TIMOLOL 2-0.5% OPHTH 1 DROP EYE-BOTH ×2 (10:32→21:16)
[2022-03-15] MEDS: FLUTICASONE PROPIONATE NASAL 2 SPRAY NOSTRIL-B (10:32)
[2022-03-15] MEDS: ACETAMINOPHEN 500 MG TABLET PO ×3 (10:40→21:15)
[2022-03-15 10:43] LABS: NT Pro B Type NatriureticPept* 75 pg/mL
--- NOTE | 2022-03-15 11:44 | P.IMPN_ITS ---
Progress Note: A&P Assessment and plan (1) Pneumonia: Problem details: CAP - transitioned from IV rocephin/Azithro to Levaquin 500. on RA. Status: Acute (2) Heart failure: Problem details: Improving slowly. Torsemide daily and monitor respiratory, fluid and electrolyte status. awaiting echo today. Status: Acute (3) Type 2 diabetes mellitus: Problem details: continue as needed sliding scale and oral Januvia. no levemir. BS seem to be improving since discharge. Status: Acute (4) Polypharmacy: Problem details: Chronically takes oxycodone 10 mg 3 times a day, lorazepam 0.5 mg 3 times a day, zolpidem 5 mg at bedtime, gabapentin 600 mg 3 times a day. Will change oxycodone to 5 mg every 4 hours as needed and discontinue lorazepam. Gapapentin continues at 600 TID. Status: Acute (5) Chronic, continuous use of opioids: Problem details: Patient is at high risk for complications from opioids plus other sided active medicines including lorazepam and gabapentin. Would like to transition her to thinking of opioids as a medication to improve her activity rather than to make her comfortable so she can sleep all day. Consider switching to Suboxone as an outpatient. Status: Acute (6) Nicotine dependence: Problem details: Reduce nicotine patch to 7 mg. Patient reports smoking 2 or 3 cigarettes per day. Status: Acute (7) Multiple falls: Problem details: Due to acute illness on top of chronic weakness and deconditioning. At this point some of this is behavioral and some of this is deconditioning/acute medical issues. PT/OT reported varying abilities depending on the time of day. May need SNF if she can't complete self cares. Status: Acute (8) Physical deconditioning: Problem details: Patient uses a scooter to get around. Self transfers but minimal ambulation. would like her to participate with physical therapy to determine if she can return to her formal level of functioning. Currently resisting therapy. Encouraging her to think of oxycodone as medicine to help her be more active rather than help her sleep more. Status: Acute (9) Sleep apnea with hypersomnolence: Problem details: tentative clinical diagnosis. Check blood gas. Recommend outpatient sleep study. Caution with supplemental oxygen. Caution with sedating drugs Status: Acute Plan CXR shows improvement in both infilitrates and pulmonary congestion. oral antibiotics, oral diuretics. echo today. PT/OT to continue. Subjective Date Seen: 03/15/22 Interval history: Daily Progress Note - Hospital Medicine #: 3 CC: heart failure, CAP, mobility/weakness OVERNIGHT UPDATES FROM STAFF & MED, LAB, IMAGING UPDATES keeps eyes closed; feels tired - on RA. answers questions with a grunt and 1-2 words and keeps eyes closed. I'm not going to no custodial was the most she would say to me. labs updated/CXR updated. Remains afebrile Blood pressure 153/86, 142/91 Pulse 90s Respiratory rate 18 O2 sats low 90 Weight 103.9 kilos CBC has now stabilized and is largely unremarkable. Leukocytosis has resolved. PH shows a mild alkalosis. No CO2 retention. Potassium has dropped a little to 3.4, magnesium is low normal, ionized calcium is only 1.06, CRP is 3.7 which is down from 6.6 Procal at admission was normal, BNP was normal at admission. TSH is pending. Blood sugars have ranged 132 up to 199. When she initially was admitted she was in the mid 200s Blood cultures remain negative Updated two view chest x-ray today: Bilateral lower lobe infiltrates persist but have improved since admission. Pulmonary vascular congestion has improved. Review of Systems: See subjective Cardiac: No new chest pain/pressure/palpitations. Respiratory: no new dyspnea. GI: No abdominal bloating Objective: Vitals: see above Lungs: Clear. Cardiac: S1S2. Disposition/Potential discharge - Likely to return to previous living situation. Total time is 35 minutes with greater than 50% spent in counseling and coordination of care. Exam Const: Vital Signs, click to edit/add: Vital Signs - 24 hr 03/14/22 12:00 03/14/22 15:00 03/14/22 16:00 Temperature 97.6 F 97.9 F Pulse Rate Pulse Rate [Pulse Oximeter] 72 90 90 Respiratory Rate 18 20 20 Blood Pressure [Le ft Arm] 133/82 138/104 H Pulse Oximetry 96 95 Oxygen Delivery Me thod Room Air Room Air 03/14/22 20:00 03/14/22 23:00 03/14/22 23:00 Temperature 97.7 F Pulse Rate 91 Pulse Rate [Pulse Oximeter] 86 91 Respiratory Rate 18 18 Blood Pressure [Le ft Arm] 147/82 H Pulse Oximetry 96 Oxygen Delivery Me thod Room Air 03/15/22 00:00 03/15/22 04:00 Temperature 97.7 F 97.3 F L Pulse Rate Pulse Rate [Pulse Oximeter] 91 99 Respiratory Rate 18 18 Blood Pressure [Le ft Arm] 142/91 H 153/86 H Pulse Oximetry 94 90 Oxygen Delivery Me thod Room Air Room Air Labs Labs: Laboratory Results - last 24 hr 03/12/22 03/15/22 03/15/22 22:45 09:20 09:20 WBC 9.70 RBC 4.11 Hgb 12.3 Hct 38.6 MCV 94 MCH 30 MCHC 32 Plt Count 245 VBG pH VBG pCO2 VBG pO2 VBG HCO3 Sodium 139 Potassium 3.4 L Chloride 100 Carbon Dioxide 34 H BUN 14 Creatinine 0.5 Estimated Creat Clear 47.10 Estimated GFR 101 Glucose 154 H Calcium 9.0 Ionized Calcium Paty Magnesium 1.6 C-Reactive Protein 3.7 H NT-Pro-B Natriuret Pep 75 Cancelled Procalcitonin 0.12 Cancelled 03/15/22 09:20 WBC RBC Hgb Hct MCV MCH MCHC Plt Count VBG pH 7.495 H VBG pCO2 46 VBG pO2 58.0 H VBG HCO3 36 H Sodium Potassium Chloride Carbon Dioxide BUN Creatinine Estimated Creat Clear Estimated GFR Glucose Calcium Ionized Calcium Paty 1.06 L Magnesium C-Reactive Protein NT-Pro-B Natriuret Pep Procalcitonin
[2022-03-15 12:25] LABS: Thyroid Stimulating Hormone* 0.649 uIU/mL (0.270-4.20)
[2022-03-15] MEDS: CARBOXYMETHYLCELLULOSE (REFRESH PLUS) TEARS 1 DROP EYE-BOTH ×2 (13:39→21:16)
--- NOTE | 2022-03-15 19:37 | PC.NURSE ---
Up in the [place] for a walk with PT. Up in the chair for meals. Moves with a SBA and walker. Appears to be sleeping for a majority of the day but arouses to voice upon entering the room. Demonstrates a productive cough. On room air. Oxycodone given PRN for pain every 4 hours as needed.
[2022-03-15] MEDS: ATORVASTATIN 10 MG TABLET PO (21:15)
[2022-03-15] MEDS: FAMOTIDINE 20 MG TABLET PO (21:15)
[2022-03-15] MEDS: LATANOPROST 0.005% OPHTH 1 DROP EYE-BOTH (21:16)
[2022-03-15] MEDS: SODIUM CHLORIDE 0.9 % (FLUSH) 10 ML SYRINGE 5 ML IVF (21:16)
[2022-03-16 03:29] VITALS: BP 155/84; PULSE 84; RESP 16; TEMP 36.4; O2SAT 88
--- NOTE | 2022-03-16 06:35 | PC.NURSE ---
End of shift status [id number] Pt remains sleepy but opens eyes with verbal stimuli. When woken up pt requests pain medication, then falls back to sleep. PRN oxy given x1 this shift. BP stable. O2 desats to low-mid 80's while sleeping, some apnea noted. Required 2L of supplemental oxygen overnight. Able to wean to room air towards morning. Telemetry monitoring, NSR. Nicotine patch falling off so it was removed from left shoulder at 0630. Pt had very large urine incontinence requiring bed change. HS glucose, 149. Up with stand by and walker to bathroom. Pt observed sleeping throughout night.
[2022-03-16] MEDS: OXYCODONE 5 MG TABLET PO ×2 (06:52→11:18)
[2022-03-16 07:36] VITALS: BP 128/77; PULSE 82; RESP 18; TEMP 36.4; O2SAT 91
[2022-03-16 07:44] VITALS: PULSE 84
[2022-03-16] MEDS: TORSEMIDE 20 MG TABLET PO (08:03)
[2022-03-16] MEDS: POTASSIUM CHLORIDE 10 MEQ CAPSULE ER PO (08:03)
--- NOTE | 2022-03-16 08:03 | P.IMPN_ITS ---
Progress Note: A&P Assessment and plan (1) Type 2 diabetes mellitus: Problem details: diet adherence is most important. continue previous home regimen. Status: Acute (2) Sleep apnea with hypersomnolence: Problem details: Recommend outpatient sleep study. Caution with supplemental oxygen. Caution with sedating drugs Status: Acute (3) Nicotine dependence: Problem details: Reduce nicotine patch to 7 mg. Patient reports smoking 2 or 3 cigarettes per day. Status: Acute (4) Borderline personality disorder: Status: Acute (5) Physical deconditioning: Problem details: Patient uses a scooter to get around. Self transfers but minimal ambulation. would like her to participate with physical therapy to determine if she can return to her formal level of functioning. Currently resisting therapy. Encouraging her to think of oxycodone as medicine to help her be more active rather than help her sleep more. Status: Acute (6) Polypharmacy: Problem details: Chronically takes oxycodone 10 mg 3 times a day, lorazepam 0.5 mg 3 times a day, zolpidem 5 mg at bedtime, gabapentin 600 mg 3 times a day. Will change oxycodone to 5 mg every 4 hours as needed and discontinue lorazepam. Gabapentin continues at 600 TID. Make zolpidem prn only. Status: Acute (7) Chronic, continuous use of opioids: Problem details: Patient is at high risk for complications from opioids plus other sided active medicines including lorazepam and gabapentin. Would like to transition her to thinking of opioids as a medication to improve her activity rather than to make her comfortable so she can sleep all day. Consider switching to Suboxone as an outpatient. Status: Acute (8) Pneumonia: Problem details: CAP - transitioned from IV rocephin/Azithro to Levaquin 500. on RA. improved throughout stay; CRP and Procalcitonin downtrended as did WBC complete levaquin therapy Status: Acute (9) Multiple falls: Problem details: Due to acute illness on top of chronic weakness and deconditioning. At this point some of this is behavioral and some of this is deconditioning/acute medical issues. PT/OT reported varying abilities depending on the time of day. Status: Acute (10) Heart failure: Problem details: Echo, while limited, was reassuring for LVEF and systolic function. discharged on torsemide and potassium Status: Acute Subjective Date Seen: 03/15/22 Interval history: Daily Progress Note - Hospital Medicine #: CC: falls OVERNIGHT UPDATES FROM STAFF & MED, LAB, IMAGING UPDATES pt is not very motivated and seems to have a varying ability to interact and re spond based n mood. objectively improved throughout he day. Final Impressions: Limited Echocardiogram performed 1. Technically limited exam. 2. Normal LV size, not well visualized wall thickness, normal global systolic function with an estimated EF of 55 - 60% on limited views. 3. Right ventricular cavity size is not well visualized, global systolic RV function is not well visualized. 4. No obvious functional valvular abnormality. 5. Would consider the use of echo contrast on subsequent studies. Review of Systems: See subjective Cardiac: No new chest pain/pressure/palpitations. Respiratory: no new dyspnea. GI: No abdominal bloating Objective: Vitals: see above Lungs: Clear. Cardiac: S1S2. Disposition/Potential discharge - Likely to return to previous living situation. Total time is 35 minutes with greater than 50% spent in counseling and coordination of care. Exam Const: Vital Signs, click to edit/add: Vital Signs - 24 hr 03/15/22 12:00 03/15/22 15:00 03/15/22 15:00 Temperature 97.9 F Pulse Rate 94 Pulse Rate [Pulse Oximeter] 96 96 Respiratory Rate 18 18 Blood Pressure [Le ft Arm] Pulse Oximetry 92 Oxygen Delivery Me thod Room Air 03/15/22 16:00 03/15/22 20:00 03/15/22 23:00 Temperature 98.3 F 97.8 F Pulse Rate Pulse Rate [Pulse Oximeter] 89 90 90 Respiratory Rate 18 20 Blood Pressure [Le ft Arm] 146/83 H 158/90 H Pulse Oximetry 92 93 Oxygen Delivery Me thod Room Air Room Air 03/15/22 23:00 03/16/22 03:29 03/16/22 07:36 Temperature 97.5 F L 97.5 F L Pulse Rate 86 Pulse Rate [Pulse Oximeter] 84 82 Respiratory Rate 16 18 Blood Pressure [Le ft Arm] 155/84 H 128/77 Pulse Oximetry 88 91 Oxygen Delivery Me thod Room Air Room Air 03/16/22 07:44 Temperature Pulse Rate 84 Pulse Rate [Pulse Oximeter] Respiratory Rate Blood Pressure [Le ft Arm] Pulse Oximetry Oxygen Delivery Me thod Labs Labs: Laboratory Results - last 24 hr 03/12/22 03/15/22 03/15/22 22:45 09:20 09:20 WBC 9.70 RBC 4.11 Hgb 12.3 Hct 38.6 MCV 94 MCH 30 MCHC 32 Plt Count 245 VBG pH VBG pCO2 VBG pO2 VBG HCO3 Sodium 139 Potassium 3.4 L Chloride 100 Carbon Dioxide 34 H BUN 14 Creatinine 0.5 Estimated Creat Clear 47.10 Estimated GFR 101 Glucose 154 H Calcium 9.0 Ionized Calcium Paty Magnesium 1.6 C-Reactive Protein 3.7 H NT-Pro-B Natriuret Pep 75 Cancelled Procalcitonin 0.12 Cancelled TSH 03/15/22 03/15/22 09:20 09:20 WBC RBC Hgb Hct MCV MCH MCHC Plt Count VBG pH 7.495 H VBG pCO2 46 VBG pO2 58.0 H VBG HCO3 36 H Sodium Potassium Chloride Carbon Dioxide BUN Creatinine Estimated Creat Clear Estimated GFR Glucose Calcium Ionized Calcium Paty 1.06 L Magnesium C-Reactive Protein NT-Pro-B Natriuret Pep Procalcitonin TSH 0.649
[2022-03-16] MEDS: OMEPRAZOLE 20 MG CAPSULE DR 40 MG PO (08:57)
[2022-03-16] MEDS: ASPIRIN 81 MG TABLET EC PO (08:58)
[2022-03-16] MEDS: DULOXETINE 30 MG CAPSULE DR 120 MG PO (08:59)
[2022-03-16] MEDS: ACETAMINOPHEN 500 MG TABLET PO (08:59)
[2022-03-16] MEDS: SENNOSIDES 1 TAB TABLET PO (08:59)
[2022-03-16] MEDS: GABAPENTIN 600 MG TABLET PO (08:59)
[2022-03-16] MEDS: AMLODIPINE 5 MG TABLET PO (08:59)
[2022-03-16] MEDS: DORZOLAMIDE/TIMOLOL 2-0.5% OPHTH 1 DROP EYE-BOTH (08:59)
[2022-03-16] MEDS: MAGNESIUM OXIDE 400 MG TABLET PO (08:59)
[2022-03-16] MEDS: risperiDONE 1 MG TABLET 2 MG PO (08:59)
[2022-03-16] MEDS: FLUTICASONE PROPIONATE NASAL 2 SPRAY NOSTRIL-B (08:59)
[2022-03-16] MEDS: NICOTINE 7 MG PATCH 1 PATCH TRANSDERMA (09:00)
[2022-03-16] MEDS: CARBOXYMETHYLCELLULOSE (REFRESH PLUS) TEARS 1 DROP EYE-BOTH (09:00)
[2022-03-16 09:46] LABS: HCO3 VBG 35 mmol/L (21-28); Ionized Calcium* 1.12 mmol/L (1.11-1.30); PCO2 VBG 53 mmHG (40-50); PO2 VBG 44.2 mmHG (25-47); pH VBG 7.426 (7.32-7.43)
[2022-03-16] MEDS: SITAGLIPTIN PHOSPHATE 50 MG TABLET 100 MG PO (09:53)
[2022-03-16] MEDS: SODIUM CHLORIDE 0.9 % (FLUSH) 10 ML SYRINGE 5 ML IVF (09:54)
[2022-03-16 10:07] LABS: Chloride* 98 mmol/L (96-114); Potassium* 3.7 mmol/L (3.6-5.1); Sodium* 140 mmol/L (135-149)
[2022-03-16 10:10] LABS: Blood Urea Nitrogen* 14 mg/dL (7-30); Carbon Dioxide* 33 mmol/L (20-32); Creatinine* 0.6 mg/dL (0.5-1.5); Estimated Glomerular Filt Rate 97 ml/min
[2022-03-16 10:11] LABS: Calcium* 9.2 mg/dL (8.4-10.6); Glucose* 255 mg/dL (60-115); Magnesium* 1.5 mg/dL (1.5-2.6)
[2022-03-16 10:13] LABS: C Reactive Protein* 2.3 mg/dL (0.5-1.0)
[2022-03-16 10:27] LABS: Procalcitonin* 0.08 ng/mL (<0.50)
[2022-03-16 10:35] LABS: NT Pro B Type NatriureticPept* < 20 pg/mL; Troponin I* < 0.01 ng/mL (0.01-0.04)
[2022-03-16] MEDS: levoFLOXacin 500 MG TABLET PO (11:18)
[2022-03-16 11:53] VITALS: BP 122/92; PULSE 94; RESP 18; TEMP 36.2; O2SAT 94
[2022-03-16 13:17] VITALS: PULSE 84; RESP 18; TEMP 36.2
--- NOTE | 2022-03-16 13:19 | PC.NURSE ---
Discharge: Patient pleasant and cooperative. Up independently, able to feed self independently. Vitals stable and WNL. IV removed with catheter intact. Nurse to nurse given to MARLENE Major at [facility]. Patient discharge @ 1310.
--- NOTE | 2022-03-16 17:54 | PM.DS1 ---
DS: Providers Provider Date Seen: 03/16/22 Date of admission: 03/13/22 09:04 Primary care physician: Not a Local Provider Admitting Clinician: Noreen Oscar MD Consults: 03/13/22 01:47 Consult to Occupational Therapy [CONS] Routine Comment: Reason(s) for OT Consult:: ADLs Prior to Discharge Any Restrictions?:: No Restrictions Consult to Physical Therapy [CONS] Routine Comment: Reason(s) for PT Consult:: Evaluate and Treat Any Restrictions?:: No Restrictions 03/13/22 02:15 Consult to Occupational Therapy [CONS] Routine Comment: Reason(s) for OT Consult:: Difficulty Managing ADLs Any Restrictions?:: No Restrictions Consult to Physical Therapy [CONS] Routine Comment: Reason(s) for PT Consult:: Recent Falls Any Restrictions?:: No Restrictions 03/13/22 09:03 Consult to Physical Therapy [CONS] Routine Comment: Reason(s) for PT Consult:: Evaluate and Treat Any Restrictions?:: No Restrictions Consult to [place] [CONS] Routine Comment: Reason for Consult:: Discharge Planning Needs 03/13/22 09:06 Consult to Occupational Therapy [CONS] Routine Comment: Reason(s) for OT Consult:: Evaluate and Treat Any Restrictions?:: No Restrictions Attending Physician on discharge: Noreen Oscar MD Date of Discharge: 03/16/22 DS: Diagnosis Discharge Diagnosis (1) Pneumonia: Status: Acute Problem details: CAP - transitioned from IV rocephin/Azithro to Levaquin 500. on RA. improved throughout stay; CRP and Procalcitonin downtrended as did WBC complete levaquin therapy (2) Heart failure: Status: Acute Problem details: Echo, while limited, was reassuring for LVEF and systolic function. discharged on torsemide and potassium (3) Type 2 diabetes mellitus: Status: Acute Problem details: diet adherence is most important. continue previous home regimen. (4) Polypharmacy: Status: Acute Problem details: Chronically takes oxycodone 10 mg 3 times a day, lorazepam 0.5 mg 3 times a day, zolpidem 5 mg at bedtime, gabapentin 600 mg 3 times a day. Will change oxycodone to 5 mg every 4 hours as needed and discontinue lorazepam. Gabapentin continues at 600 TID. Make zolpidem prn only. (5) Chronic, continuous use of opioids: Status: Acute Problem details: Patient is at high risk for complications from opioids plus other sided active medicines including lorazepam and gabapentin. Would like to transition her to thinking of opioids as a medication to improve her activity rather than to make her comfortable so she can sleep all day. Consider switching to Suboxone as an outpatient. (6) Nicotine dependence: Status: Acute Problem details: Reduce nicotine patch to 7 mg. Patient reports smoking 2 or 3 cigarettes per day. (7) Multiple falls: Status: Acute Problem details: Due to acute illness on top of chronic weakness and deconditioning. At this point some of this is behavioral and some of this is deconditioning/acute medical issues. PT/OT reported varying abilities depending on the time of day. (8) Sleep apnea with hypersomnolence: Status: Acute Problem details: Recommend outpatient sleep study. Caution with supplemental oxygen. Caution with sedating drugs DS: Summary Hospital Course Hospital Course: HOSPITALIST DISCHARGE SUMMARY ATTENDING PHYSICIAN: Noreen Oscar MD FINAL DIAGNOSIS: Pneumonia - dismissed on Levaquin CHF - mild. treated with oral diuretic Polypharmacy posing risk for falls Type 2 DM HOSPITAL FOLLOWUP ISSUES: 1. consider suboxone referral - pt was on large doses of oxycodone and presented with falls and oversedated. we cut back on these and held her ativan REFERRALS WHILE ADMITTED: pt/ot REFERRALS AFTER DISCHARGE: PCP - we helped establish care for outpatient f/u BRIEF HOSPITAL COURSE: Hospital medicine team felt Rena was sedated and falling from her multiple medications. She did have a mild pneumonia that likely caused a mild CHF - these were both corrected and treated. The main purpose of the hospitalization was to decrease her opioid use and polypharmacy. To that end, we reduced her oxycodone, we held her ativan and we made her ambien prn only. we kept he gabapentin at the same dose. We feel she would benefit from a suboxone clinic referral. SUBSTANTIVE NOTATIONS ON IMAGING, LAB, MICROBIOLOGY/PATHOLOGY STUDIES: Chest xray as below. She was on RA at dismissal. her WBC, procalcitonin, crp all downtrended or normalized. Lungs and pleural spaces:? Bilateral lower lobe infiltrates persist but have improved. Pulmonary vascular congestion has improved. No effusions and no pneumothorax. Her echo was limited by technique. However reassuring for normal systolic function. DISCHARGE MEDICATIONS: See Reconciled list - SIGNIFICANT CHANGES: No benzos Oxy changed to 5 mg q4 ambien prn gabapentin - no change oral diuretic REVIEW OF SYSTEMS No new chest pain or dyspnea Pain controlled No voiding difficulties Tolerating diet challenge PHYSICAL EXAM: CONSTITUTIONAL: cranky, mild agitation. much less sedated than when she presented. VITAL SIGNS: see record. HEENT: Normocephalic, atraumatic. PERRL, EOMI, conjunctivae pink, no scleral icterus. Ears and nose externally normal. Pharynx normal. NECK: No JVD. No carotid bruit, no thyromegaly, no adenopathy. CHEST: Clear to auscultation bilaterally. HEART: S1 and S2 normal. Edema 1+ ABDOMEN: Soft, nontender. Normal bowel sounds. MUSCULOSKELETAL: No gross joint deformity or swelling. NEURO: Cranial nerves intact. Grossly intact. No asymmetric findings. SKIN: No rashes, petechiae, concerning changes PSYCHIATRIC: Mood euthymic. DISPOSITION: Return to residential; [facility] Time spent on discharge 37 minutes. Time Spent with Patient Time attestation: Total time spent providing and/or coordinating discharge services: Exam Const: Vital Signs, click to edit/add: Vital Signs - 24 hr 03/15/22 20:00 03/15/22 23:00 03/15/22 23:00 Temperature 97.8 F Pulse Rate 86 Pulse Rate [Pulse Oximeter] 90 90 Respiratory Rate 20 Blood Pressure [Le ft Arm] 158/90 H Pulse Oximetry 93 Oxygen Delivery Me thod Room Air 03/16/22 03:29 03/16/22 07:36 03/16/22 07:44 Temperature 97.5 F L 97.5 F L Pulse Rate 84 Pulse Rate [Pulse Oximeter] 84 82 Respiratory Rate 16 18 Blood Pressure [Le ft Arm] 155/84 H 128/77 Pulse Oximetry 88 91 Oxygen Delivery Me thod Room Air Room Air 03/16/22 11:53 03/16/22 13:17 Temperature 97.1 F L 97.1 F L Pulse Rate 84 Pulse Rate [Pulse Oximeter] 94 Respiratory Rate 18 18 Blood Pressure [Le ft Arm] 122/92 H Pulse Oximetry 94 Oxygen Delivery Me thod Room Air DS: Data Data Completed and Pending Labs on day of discharge: Labs from last 24 hours 03/16/22 03/16/22 09:40 09:40 VBG pH 7.426 VBG pCO2 53 H VBG pO2 44.2 VBG HCO3 35 H Sodium 140 Potassium 3.7 Chloride 98 Carbon Dioxide 33 H BUN 14 Creatinine 0.6 Estimated Creat Clear 47.10 Estimated GFR 97 Glucose 255 H Calcium 9.2 Ionized Calcium Paty 1.12 Magnesium 1.5 Troponin I < 0.01 L C-Reactive Protein 2.3 H NT-Pro-B Natriuret Pep < 20 Procalcitonin 0.08 Preliminary micro results at discharge 03/13/22 00:48 Blood Culture - Preliminary Blood No growth. 03/13/22 01:00 Blood Culture - Preliminary Blood No growth. Discharge Plan Discharge Disposition: Xfer Other Date of Admission: 03/13/22 09:04 Attending Provider on Discharge: Noreen Oscar Primary Care Provider: Provider,Not a Local Condition: Improved Anticipated Discharge Date/Time: 03/16/22 11:06 Discharge Medications: New levofloxacin 500 mg Tablet 500 mg PO Q24H Qty: 7 0RF potassium chloride 10 mEq Capsule, Extended Release 10 meq PO BIDWM Qty: 60 0RF magnesium oxide 400 mg (241.3 mg magnesium) Tablet 400 mg PO BID Qty: 60 0RF torsemide 20 mg Tablet 20 mg PO DAILY@0800 Qty: 30 0RF Continued amlodipine 5 mg tablet 5 mg PO DAILY aspirin 81 mg tablet,delayed release (DR/EC) 81 mg PO DAILY latanoprost 0.005 % drops 1 drp OPHTHALMIC (EYE) HS Rx Instructions: BOTH EYES gabapentin 600 mg tablet 600 mg PO TID nicotine (polacrilex) 2 mg gum 2 mg buccal PRN risperidone 2 mg tablet 2 mg PO BID famotidine 20 mg tablet 20 mg PO HS pantoprazole 40 mg tablet,delayed release (DR/EC) 40 mg PO DAILY oxybutynin chloride 5 mg tablet extended release 24 hr 5 mg PO HS dorzolamide-timolol 22.3-6.8 mg/mL drops 1 drp OPHTHALMIC (EYE) BID Rx Instructions: BOTH EYES hydrochlorothiazide 25 mg tablet 25 mg PO DAILY fluticasone propionate 50 mcg/actuation spray,suspension 2 spray INTRANASAL DAILY insulin aspart U-100 100 unit/mL (3 mL) insulin pen 1 sliding scale dose SUBCUT BID@,18 Rx Instructions: 0-7 UNITS duloxetine 60 mg capsule,delayed release(DR/EC) 120 mg PO DAILY insulin glargine [Lantus Solostar U-100 Insulin] 100 unit/mL (3 mL) insulin pen 40 unit SUBCUT HS atorvastatin 10 mg tablet 10 mg PO HS cetirizine 10 mg tablet 10 mg PO DAILY PRN cholecalciferol (vitamin D3) 25 mcg (1,000 unit) tablet 1,000 unit PO DAILY nicotine 21 mg/24 hr patch 24 hour 1 patch topical DAILY Systane Ultra 0.4-0.3 % drops 1 drp ophthalmic (eye) QID Rx Instructions: BOTH EYES polyethylene glycol 3350 [Gavilax] 17 gram/dose powder 17 g PO DAILY Januvia 100 mg tablet 100 mg PO DAILY diclofenac sodium 1 % gel 2 g topical QID PRN epinephrine 0.3 mg/0.3 mL auto-injector 0.3 mg IM PRN PRN Rx Instructions: do not exceed 3 doses per episode hydroxyzine HCl 25 mg tablet 25 mg PO TID PRN carboxymethylcellulose sodium [Lubricating Plus] 0.5 % dropperette 1 drp ophthalmic (eye) TID PRN albuterol sulfate [Ventolin HFA] 90 mcg/actuation HFA aerosol inhaler 1 puff INHALATION DAILY PRN ondansetron 4 mg tablet,disintegrating 4 mg PO Q6H PRN Changed acetaminophen 500 mg tablet 1,000 mg PO TID Qty: 180 0RF zolpidem 5 mg tablet 5 mg PO PRN Qty: 30 0RF oxycodone 5 mg tablet 5 mg PO Q4H PRN (Reason: pain) Qty: 90 0RF Discontinued lorazepam 0.5 mg tablet 0.5 mg PO Q8H Discharge Orders: Discharge Order (Routine); Ordered 03/16/22 Ordered By: Noreen Oscar Additional Instructions: Reasons you are fallin. Too many sedating medicines. I've stopped the Ativan. I want your sleep pill to be only as needed. I made your oxycodone a smaller dose but more often. 2. You are not active enough - I'd like you to move more, participate in more activities 3. Pneumonia - finish 1 week of antibiotics 4. Mild CHF - new water pill and potassium supplement You must see your regular doc to check 1. Your weight and breathing 2. Your potassium and kidney labs Activity Level: Activity as Tolerated and Weight Bearing as Tolerated Discharge Diet: Heart Healthy (2 gm sodium, low fat) Follow Up Appointments: Test [Outside] (Your provider You must see your regular doc to check 1. Your weight and breathing 2. Your potassium and kidney lab ) Provider,Not a Local [Primary Care Provider] - 03/23/22 (ask if there is a doc she sees otherwise find a local PCP for her to see.) Forms: [employer] Info Instructions
== END 2022-03-16 13:10 | disposition other institution (70) | DRG 139 ==
LOC: ED 03-13 00:10 → MEDSURG 03-13 01:08
PROVIDERS: Family Medicine; Student in an Organized Health Care Education/Training Program; Admitting Provider Family Medicine; Emergency Provider Emergency Medicine Emergency Medical Services; Visit Provider Family Medicine
DX: J18.9 Pneumonia, unspecified organism (principal); I11.0 Hypertensive heart disease with heart failure; A41.9 Sepsis, unspecified organism; J96.01 Acute respiratory failure with hypoxia; Z51.81 Encounter for therapeutic drug level monitoring; I50.21 Acute systolic (congestive) heart failure; R29.6 Repeated falls; R26.81 Unsteadiness on feet; M54.9 Dorsalgia, unspecified; E11.9 Type 2 diabetes mellitus without complications; F11.90 Opioid use, unspecified, uncomplicated; Z79.899 Other long term (current) drug therapy; F17.200 Nicotine dependence, unspecified, uncomplicated; R53.81 Other malaise; G47.10 Hypersomnia, unspecified; G47.30 Sleep apnea, unspecified; F60.3 Borderline personality disorder; R53.1 Weakness; Z79.82 Long term (current) use of aspirin; Z79.4 Long term (current) use of insulin; D72.829 Elevated white blood cell count, unspecified; R00.0 Tachycardia, unspecified; R41.82 Altered mental status, unspecified; J44.9 Chronic obstructive pulmonary disease, unspecified; Z90.49 Acquired absence of other specified parts of digestive tract; F17.210 Nicotine dependence, cigarettes, uncomplicated; R91.8 Other nonspecific abnormal finding of lung field; F19.90 Other psychoactive substance use, unspecified, uncomplicated; F13.90 Sedative, hypnotic, or anxiolytic use, unspecified, uncomplicated
CPT/HCPCS: 36415; 71045; 71046; 73030; 74176; 80048; 81001; 82330; 82803; 82962; 83735; 83880; 84145; 84443; 84484; 85025; 85027; 86140; 87040; 87635; 87804; 93306; 94761; 97116; 97162; 97166; 97530; 97535; 99285; A9270; G0378; J0456; J0610; J0696; J1940; J3475; J7030; J7050; S4990

== ENCOUNTER 2022-06-09 18:19 | Outpatient (CLI) | payer BC, SELFPAY | END 2022-06-09 18:20 | disposition home or self-care (01) | LOC: AMB 21:34 | PROVIDERS: Visit Provider Family Medicine | DX: R10.9 Unspecified abdominal pain (principal) ==

== ENCOUNTER 2022-07-05 21:00 | Outpatient (CLI) | payer BC, SELFPAY | END 2022-07-05 21:01 | disposition home or self-care (01) | LOC: AMB 07-24 01:02 | PROVIDERS: Visit Provider Family Medicine | DX: R07.89 Other chest pain (principal) | CPT/HCPCS: A0425; A0427 ==

== ENCOUNTER 2022-07-05 21:28 | Emergency (ER) | payer BC, SELFPAY ==
[2022-07-05] VITALS (13 sets, daily range): BP systolic 112–151; BP diastolic 69–81; PULSE 87–104; RESP 16; TEMP 36.1; O2SAT 93–99
--- NOTE | 2022-07-05 21:51 | ED_ITS ---
HPI - Abdominal Pain General Time Seen by Provider: 21:51 Date Seen: 07/05/22 Chief Complaint: Abdominal Pain Stated Complaint: abdominal pain Time Seen by Provider: 07/05/22 21:51 Source: patient, EMS and RN notes reviewed Mode of arrival: EMS Limitations: no limitations History of Present Illness HPI narrative: Patient is a 72-year-old female brought in by EMS for upper abdominal pain that worsened today. She states her upper abdomen. No nausea vomiting but maybe diminished appetite. She thinks she might have a UTI she has had urinary frequency. Denies any diarrhea. Her gallbladder is out reportedly, she states her appendix is out. She believes she has had pancreatitis before and states it feels like that. She is not aware of any history of bowel obstruction, asks me what a bowel obstruction is. No fevers noted. She has maybe had some cough but no chest pain, no radiation of pain into her chest. EMS did give her 50 mcg of fentanyl EN route, she is feeling better now. Is sedated but easily arousable. I do see in her chart that she has chronic opioid use and polypharmacy listed as diagnoses. Patient brought in from [place] by EMS. Patient does note on review of systems that she has been doing some coughing but not short of breath, no chest pain. Patient is known to smoke. Related Data Hx Last Menstrual Period: NA Home Medications Medication Instructions Recorded Confirmed amlodipine 5 mg tablet 5 mg PO DAILY 10/19/21 03/12/22 aspirin 81 mg tablet,delayed 81 mg PO DAILY 10/19/21 03/12/22 release dorzolamide 22.3 mg-timolol 6.8 1 drp ophthalmic (eye) BID 10/19/21 03/13/22 mg/mL eye drops duloxetine 60 mg capsule,delayed 120 mg PO DAILY 10/19/21 03/13/22 release famotidine 20 mg tablet 20 mg PO HS 10/19/21 03/13/22 fluticasone propionate 50 2 spray intranasal DAILY 10/19/21 03/13/22 mcg/actuation nasal spray,suspension gabapentin 600 mg tablet 600 mg PO TID 10/19/21 03/13/22 hydrochlorothiazide 25 mg tablet 25 mg PO DAILY 10/19/21 03/13/22 insulin aspart U-100 100 unit/mL 1 sliding scale dose subcut 10/19/21 03/13/22 (3 mL) subcutaneous pen BID@12,18 insulin glargine 100 unit/mL (3 40 unit subcut HS 10/19/21 03/13/22 mL) subcutaneous pen (Lantus Solostar U-100 Insulin) latanoprost 0.005 % eye drops 1 drp ophthalmic (eye) HS 10/19/21 03/13/22 nicotine (polacrilex) 2 mg gum 2 mg buccal PRN 10/19/21 03/13/22 oxybutynin chloride 5 mg 5 mg PO HS 10/19/21 03/13/22 tablet,extended release 24 hr pantoprazole 40 mg tablet,delayed 40 mg PO DAILY 10/19/21 03/13/22 release risperidone 2 mg tablet 2 mg PO BID 10/19/21 03/13/22 albuterol sulfate 90 mcg/actuation 1 puff inhalation DAILY PRN 03/13/22 03/13/22 aerosol inhaler (Ventolin HFA) atorvastatin 10 mg tablet 10 mg PO HS 03/13/22 03/13/22 carboxymethylcellulose sodium 0.5 1 drp ophthalmic (eye) TID PRN 03/13/22 03/13/22 % eye drops in a dropperette (Lubricating Plus) cetirizine 10 mg tablet 10 mg PO DAILY PRN 03/13/22 03/13/22 cholecalciferol (vitamin D3) 25 1,000 unit PO DAILY 03/13/22 03/13/22 mcg (1,000 unit) tablet diclofenac sodium 1 % topical gel 2 g topical QID PRN 03/13/22 03/13/22 epinephrine 0.3 mg/0.3 mL 0.3 mg IM PRN PRN 03/13/22 03/13/22 injection, auto-injector hydroxyzine HCl 25 mg tablet 25 mg PO TID PRN 03/13/22 03/13/22 nicotine 21 mg/24 hr daily 1 patch topical DAILY 03/13/22 03/13/22 transdermal patch ondansetron 4 mg disintegrating 4 mg PO Q6H PRN 03/13/22 03/13/22 tablet peg 400-propylene glycol 0.4 %-0.3 1 drp ophthalmic (eye) QID 03/13/22 03/13/22 % eye drops (Systane Ultra) polyethylene glycol 3350 17 17 g PO DAILY 03/13/22 03/13/22 gram/dose oral powder (Gavilax) sitagliptin phosphate 100 mg 100 mg PO DAILY 03/13/22 03/13/22 tablet (Januvia) Previous Rx's Medication Instructions Recorded acetaminophen 500 mg tablet 1,000 mg PO TID #180 tabs 03/16/22 levofloxacin 500 mg tablet 500 mg PO Q24H #7 tabs 03/16/22 magnesium oxide 400 mg (241.3 mg 400 mg PO BID #60 tabs 03/16/22 magnesium) tablet oxycodone 5 mg tablet 5 mg PO Q4H PRN pain #90 tabs 03/16/22 potassium chloride 10 mEq 10 meq PO BIDWM #60 caps 03/16/22 capsule,extended release torsemide 20 mg tablet 20 mg PO DAILY@0800 #30 tabs 03/16/22 zolpidem 5 mg tablet 5 mg PO PRN #30 tabs 03/16/22 doxycycline monohydrate 100 mg 100 mg PO BID #19 caps 07/06/22 capsule Allergies Allergy/AdvReac Type Severity Reaction Status Date / Time aspirin Allergy Verified 07/05/22 23:54 bee venom protein (honey bee) Allergy Verified 07/05/22 23:54 ketorolac [From Toradol] Allergy Verified 07/05/22 23:54 losartan Allergy Verified 07/05/22 23:54 NSAIDS (Non-Steroidal Allergy Verified 07/05/22 23:54 Anti-Inflamma Penicillins Allergy Verified 07/05/22 23:54 tramadol Allergy Verified 07/05/22 23:54 varenicline Allergy Verified 07/05/22 23:54 Review of Systems Status of ROS Reports: 10 or more systems reviewed and unremarkable except as noted in History and below PFSH PFSH Medical History Antisocial personality disorder ?F60.2 - Antisocial personality disorder (ICD-10) Anxiety, generalized ?F41.1 - Generalized anxiety disorder (ICD-10) Asthma ?J45.909 - Unspecified asthma, uncomplicated (ICD-10) Back pain ?M54.9 - Dorsalgia, unspecified (ICD-10) Borderline personality disorder ?F60.3 - Borderline personality disorder (ICD-10) Chronic pain syndrome ?G89.4 - Chronic pain syndrome (ICD-10) Chronic, continuous use of opioids ?F11.90 - Opioid use, unspecified, uncomplicated (ICD-10) COPD (chronic obstructive pulmonary disease) ?J44.9 - Chronic obstructive pulmonary disease, unspecified (ICD-10) Degenerative disc disease, lumbar ?M51.36 - Other intervertebral disc degeneration, lumbar region (ICD-10) Diabetes mellitus type 2 in obese ?E11.69 - Type 2 diabetes mellitus with other specified complication (ICD-10) ?E66.9 - Obesity, unspecified (ICD-10) Heart failure ?I50.9 - Heart failure, unspecified (ICD-10) Hepatic steatosis ?K76.0 - Fatty (change of) liver, not elsewhere classified (ICD-10) Hypertension, essential ?I10 - Essential (primary) hypertension (ICD-10) Nicotine dependence ?F17.200 - Nicotine dependence, unspecified, uncomplicated (ICD-10) Obesity ?E66.9 - Obesity, unspecified (ICD-10) Osteoarthritis ?M19.90 - Unspecified osteoarthritis, unspecified site (ICD-10) Physical deconditioning ?R53.81 - Other malaise (ICD-10) Polypharmacy ?Z79.899 - Other skilled nursing (current) drug therapy (ICD-10) Sleep apnea with hypersomnolence ?G47.10 - Hypersomnia, unspecified (ICD-10) ?G47.30 - Sleep apnea, unspecified (ICD-10) Type 2 diabetes mellitus ?E11.9 - Type 2 diabetes mellitus without complications (ICD-10) Surgical History History of cholecystectomy ?Z90.49 - Acquired absence of other specified parts of digestive tract (ICD- 10) History of total knee arthroplasty ?Z96.659 - Presence of unspecified artificial knee joint (ICD-10) Family History Father Stomach cancer Brother Heart disease Social History Narrative: Patient is a resident of [facility]. She tells me she has been smoking 2 or 3 cigarettes per day. She is attempting to quit. She does not drink alcohol. Her healthcare power of chemical laboratory technician would be her son Korey Miles, code status is full. Smoking Status: Current every day smoker What tobacco products do you use: cigarettes Smoking quit date/years: <= 15 years ago Do you use any of these nicotine containing products: None Nicotine containing products detail: quit today Second hand tobacco smoke exposure: No How often do you have a drink containing alcohol: never How often do you have six or more drinks on one occasion: Never AUDIT-C Alcohol total score: 0 Non-prescribed substance use: denies use Caffeine: Yes (coke) service: No Exam Const: Vital Signs, click to edit/add: Vital Signs - 24 hr 07/05/22 21:34 07/05/22 21:51 07/05/22 21:54 Temperature 97.0 F L Pulse Rate 98 104 H Pulse Rate [Left P ulse Oximeter] 95 Respiratory Rate 16 Blood Pressure 112/69 Blood Pressure [Ri ght Upper Arm] 147/76 H Pulse Oximetry 97 93 98 Oxygen Delivery Me thod Room Air 07/05/22 22:22 07/05/22 21:55 07/05/22 22:00 Temperature Pulse Rate 100 96 Pulse Rate [Left P ulse Oximeter] Respiratory Rate Blood Pressure Blood Pressure [Ri ght Upper Arm] Pulse Oximetry 99 95 96 Oxygen Delivery Me thod 07/05/22 22:01 07/05/22 22:35 07/05/22 22:36 Temperature Pulse Rate 96 94 92 Pulse Rate [Left P ulse Oximeter] Respiratory Rate Blood Pressure 137/74 Blood Pressure [Ri ght Upper Arm] Pulse Oximetry 95 98 96 Oxygen Delivery Me thod 07/05/22 23:00 07/05/22 23:02 Temperature Pulse Rate 91 91 Pulse Rate [Left P ulse Oximeter] Respiratory Rate Blood Pressure 151/81 H Blood Pressure [Ri ght Upper Arm] Pulse Oximetry 97 96 Oxygen Delivery Me thod Documenting provider has reviewed patient's vital signs: yes Common normals: no apparent distress (Sleeping but arouses easily) General appearance: cooperative, comfortable, well developed and frail appearing Nutritional appearance: obese HENMT: Common normals: normocephalic, head/scalp atraumatic and hearing grossly normal bilaterally Head and scalp: normocephalic and atraumatic Eye: Common normals: PERRL, EOMs intact bilaterally, conjunctivae normal and no scleral icterus Conjunctiva: conjunctiva(e) normal Pupil: PERRL Neck & C-Spine: Common normals: full ROM, no lymphadenopathy, supple and no JVD Resp: Common normals: normal respiratory effort, no retractions, no use of accessory muscles and clear to auscultation bilaterally Effort & inspection: able to speak in complete sentences Auscultation: clear to auscultation bilaterally Cardio: Common normals: no JVD, regular rate, regular rhythm, S1 normal heart sound, S2 normal heart sound, no gallops, no clicks and no murmurs Rate: regular rate Rhythm: regular rhythm Heart sounds: S1 normal and S2 normal GI: Common normals: Normal to inspection, nondistended, normoactive bowel sounds present, soft to palpation, no hepatosplenomegaly and no masses Palpation: soft and no hepatosplenomegaly Other: Complains of generalized upper abdominal tenderness without rebound or guarding, do not feel any masses. Extremity: Other: No lower extremity edema. Course Course Hospital Course: Patient appears comfortable at this time. Did review with her that I do think we should proceed with a CT with IV contrast if possible. Will have her on pulse oximetry given that she has gotten narcotics. Will do a full complement of labs. Intra-abdominal pathology including pancreatitis possible gastritis peptic ulcer disease without any vomiting, other intra-abdominal pathology maybe considerations here. Will get a chest x-ray she states she has been doing some coughing. Will also obtain a urinalysis given she thinks she may have a UTI. Reevaluation(s) Reevaluation #1: Patient told nursing staff that her pain was 10/10 but nursing staff as well as myself find her sleeping. I do awaken her to tell her that she has some probable developing pneumonia on the right lung which is likely the reason for her cough. Also reviewed with her that we found no reason on imaging or labs for cause of abdominal pain. Thus, we are unable to give further pain medicines to her, particularly when she is falling asleep so easily. She seemed accepting of this. Time: 00:34 Vital Signs Vital signs: Initial Vital Signs Temperature 97.0 F L 07/05/22 21:34 Temperature Source Temporal Artery Scan 07/05/22 21:34 Pulse Rate 95 04/18/23 21:34 Pulse Rhythm Regular 07/05/22 21:34 Respiratory Rate 16 07/05/22 21:34 Blood Pressure 147/76 H 07/05/22 21:34 Blood Pressure Mean 99 07/05/22 21:34 Blood Pressure Position Semi-Fowlers 07/05/22 21:34 Pulse Oximetry 97 07/05/22 21:34 Oxygen Delivery Method Room Air 07/05/22 21:34 Vital Signs Temperature 97.0 F L 07/05/22 21:34 Pulse Rate 95 07/05/22 21:34 Respiratory Rate 16 07/05/22 21:34 Blood Pressure 147/76 H 07/05/22 21:34 Pulse Oximetry 97 07/05/22 21:34 Oxygen Delivery Method Room Air 07/05/22 21:34 Temperature 97.0 F L 07/05/22 21:34 Pulse Rate 91 07/05/22 23:02 Respiratory Rate 16 07/05/22 21:34 Blood Pressure 151/81 H 07/05/22 23:02 Pulse Oximetry 96 07/05/22 23:02 Oxygen Delivery Method Room Air 07/05/22 21:34 MDM - Abdominal Pain Lab Data Attestation: I reviewed the patient's lab results. Labs: Lab Results 07/05/22 07/05/22 07/05/22 Range/Units 21:59 22:20 22:45 WBC 9.55 (4.50-11.00) K/uL RBC 4.12 (4.00-5.20) m/uL Hgb 12.5 (12.0-16.0) gm/dL Hct 38.0 (33.0-51.0) % MCV 92 (80-100) fL MCH 30 (26-34) pg MCHC 33 (32-36) gm/dL RDW Coeff of Rosa 13.0 (11.5-15.5) % Plt Count 251 (140-440) K/uL Neut % (Auto) 61.0 (42.0-72.0) % Lymph % (Auto) 28.7 (20-44) % [place] % (Auto) 6.6 (0.0-11.0) % Eos % (Auto) 3.4 (0.0-7.0) % Baso % (Auto) 0.1 (0.0-3.0) % Neut # (Auto) 5.83 (1.7-7.0) K/uL Lymph # (Auto) 2.74 (0.90-2.90) K/uL [place] # (Auto) 0.60 (0.00-0.90) K/UL Eos # (Auto) 0.32 (0.00-0.50) K/uL Baso # (Auto) 0.01 (0.00-0.30) K/uL Sodium 137 (135-149) mmol/L Potassium 2.8 L* (3.6-5.1) mmol/L Chloride 99 (96-114) mmol/L Carbon Dioxide 30 (20-32) mmol/L BUN 16 (7-30) mg/dL Creatinine 0.7 (0.5-1.5) mg/dL Estimated GFR 93 ml/min Glucose 239 H (60-115) mg/dL Lactate 2.5 H (0.5-1.9) mmol/L Calcium 9.1 (8.4-10.6) mg/dL Total Bilirubin 0.7 (0.1-1.5) mg/dL Direct Bilirubin 0.5 (0.0-0.5) mg/dL AST 31 (12-35) U/L ALT 21 (4-35) U/L Alkaline Phosphatase 99 (40-150) U/L C-Reactive Protein 0.7 (0.5-1.0) mg/dL Total Protein 7.5 (6.0-8.3) g/dL Albumin 3.9 (3.3-5.0) g/dL Lipase 276 Cancelled (23-300) U/L Urine Color Yellow (Yellow) Urine Appearance Clear (Clear) Urine pH 6.5 (5.0-8.5) Ur Specific [place] 1.015 (1.000-1.030) Urine Protein Negative (Negative) Urine Glucose (UA) Negative (Negative) Urine Ketones Negative (Negative) Urine Blood Negative (Negative) Urine Nitrite Negative (Negative) Urine Bilirubin Negative (Negative) Urine Urobilinogen 1.0 (0.2-1.0) Ur Leukocyte Esterase Negative (Negative) Urine RBC 0-2 (0-2) Urine WBC 2-5 (0-5) Ur Squamous Epith Cells Few (None-Few) Urine Bacteria Few A (None) Urine Opiates Screen Negative (Negative) Ur Oxycodone Screen POSITIVE A* (Negative) Urine Methadone Screen Negative (Negative) Ur Propoxyphene Screen Negative (Negative) Ur Barbiturates Screen Negative (Negative) U Tricyclic Antidepress Negative (Negative) Ur Phencyclidine Scrn Negative (Negative) Ur Amphetamines Screen Negative (Negative) U Methamphetamines Scrn Negative (Negative) U Benzodiazepines Scrn Negative (Negative) Urine Cocaine Screen Negative (Negative) U Marijuana (THC) Screen Negative (Negative) Ur Drug Screen Comment See Note Ethyl Alcohol < 0.01 L Cancelled (0.01-0.03) % SARS-CoV-2 (PCR) Negative SARS-CoV-2 (Negative) Imaging Data Chest x-ray: Attestation: I have reviewed the pertinent imaging results. Radiologist's impression: Patient: EMILEE GALVEZ Facility:?[facility] Patient ID:?[id number] Site Patient ID:?[id number]. Site :?[id number] Study:?XRay Chest -07/05/2022 11:42:13 PM Ordering Physician:?Sarbjit Marroquin Final Report: Indication: Cough Technique: Chest 1 view Comparison: March 15, 2022 Findings/Impression: Cardiac size appears prominent likely due to portable technique. Normal pulmonary vasculature. Minimal linear atelectasis in the left mid lung. Questionable patchy opacity in the medial aspect of the right lower lung field could represent atelectasis or infection. No pneumothorax or effusion. Dictated by Ailin River MD @ 07/06/2022 12:16:28 AM (Electronic Signature) CT scan - abdomen: Attestation: I have reviewed the pertinent imaging results. Radiologist's impression: Patient: EMILEE KINCHELOE Facility:?[facility] Patient ID:?[id number] Site Patient ID:?[id number]. Site :?[id number] Study:?CT Abdomen/Pelvis -07/05/2022 11:43:21 PM Ordering Physician:Medhat Marroquin Final Report: INDICATION: Three day history of upper abdominal pain TECHNIQUE: CT abdomen and pelvis acquired with 122 cc Isovue 370 IV contrast. COMPARISON: March 12, 2022 FINDINGS: Images are degraded by patient motion artifact. Lower chest: Patchy opacity in the right lower lobe. Liver: Hepatic steatosis.. Spleen: Unremarkable. Pancreas: Unremarkable. Gallbladder and bile ducts: S/p cholecystectomy. Adrenal glands: Unremarkable. Kidneys: Unremarkable. GI tract: Colonic diverticulosis. Appendix is not seen. Vascular structures: Aortoiliac calcifications. Lymph nodes: Unremarkable. Miscellaneous: Unremarkable. No free air or significant free fluid. Pelvic Organs: Status post hysterectomy. Bones: Mild dextroscoliosis. Old L1 fracture contain vertebroplasty material. IMPRESSION: Patchy opacity in the right lower lobe may represent atelectasis or infection. No acute intra-abdominal process. Hepatic steatosis. Colonic diverticulosis. Status post cholecystectomy, hysterectomy, and L1 vertebroplasty. Please note that all CT scans at this facility use dose modulation, iterative reconstruction, and/or weight-based dosing when appropriate to reduce radiation dose to as low as reasonably achievable. Dictated by Ailin River MD @ 07/06/2022 12:23:42 AM (Electronic Signature) Discharge Plan Discharge Clinical Impression: Acute upper abdominal pain, Community acquired pneumonia of right lower lobe of lung, Hypokalemia Patient Disposition: Home, Self-Care Condition: Stable Instructions: Hypokalemia (ED), Community Acquired Pneumonia (ED), Abdominal Pain (ED) Additional Instructions: Start oral antibiotics and take as prescribed. First dose was given here in the ER tonight. Your potassium was low at 2.8, do recommend increasing your potassium to 20 mEq twice a day and having your potassium rechecked within the next week. There was no etiology or reason found for your abdominal pain, specifically CT showed no evidence of anything to explain your abdominal pain nor were there any labs explaining it either. This CT and chest x-ray did show a developing right lower lobe pneumonia which is the reason why you have been coughing some. Activity Level: Activity as Tolerated Prescriptions: New doxycycline monohydrate 100 mg capsule 100 mg PO BID Qty: 19 0RF No Action amlodipine 5 mg tablet 5 mg PO DAILY aspirin 81 mg tablet,delayed release (DR/EC) 81 mg PO DAILY latanoprost 0.005 % drops 1 drp OPHTHALMIC (EYE) HS Rx Instructions: BOTH EYES gabapentin 600 mg tablet 600 mg PO TID nicotine (polacrilex) 2 mg gum 2 mg buccal PRN risperidone 2 mg tablet 2 mg PO BID famotidine 20 mg tablet 20 mg PO HS pantoprazole 40 mg tablet,delayed release (DR/EC) 40 mg PO DAILY oxybutynin chloride 5 mg tablet extended release 24 hr 5 mg PO HS dorzolamide-timolol 22.3-6.8 mg/mL drops 1 drp OPHTHALMIC (EYE) BID Rx Instructions: BOTH EYES hydrochlorothiazide 25 mg tablet 25 mg PO DAILY fluticasone propionate 50 mcg/actuation spray,suspension 2 spray INTRANASAL DAILY insulin aspart U-100 100 unit/mL (3 mL) insulin pen 1 sliding scale dose SUBCUT BID@12,18 Rx Instructions: 0-7 UNITS duloxetine 60 mg capsule,delayed release(DR/EC) 120 mg PO DAILY insulin glargine [Lantus Solostar U-100 Insulin] 100 unit/mL (3 mL) insulin pen 40 unit SUBCUT HS atorvastatin 10 mg tablet 10 mg PO HS cetirizine 10 mg tablet 10 mg PO DAILY PRN cholecalciferol (vitamin D3) 25 mcg (1,000 unit) tablet 1,000 unit PO DAILY nicotine 21 mg/24 hr patch 24 hour 1 patch topical DAILY Systane Ultra 0.4-0.3 % drops 1 drp ophthalmic (eye) QID Rx Instructions: BOTH EYES polyethylene glycol 3350 [Gavilax] 17 gram/dose powder 17 g PO DAILY Januvia 100 mg tablet 100 mg PO DAILY diclofenac sodium 1 % gel 2 g topical QID PRN epinephrine 0.3 mg/0.3 mL auto-injector 0.3 mg IM PRN PRN Rx Instructions: do not exceed 3 doses per episode hydroxyzine HCl 25 mg tablet 25 mg PO TID PRN carboxymethylcellulose sodium [Lubricating Plus] 0.5 % dropperette 1 drp ophthalmic (eye) TID PRN albuterol sulfate [Ventolin HFA] 90 mcg/actuation HFA aerosol inhaler 1 puff INHALATION DAILY PRN ondansetron 4 mg tablet,disintegrating 4 mg PO Q6H PRN levofloxacin 500 mg Tablet 500 mg PO Q24H Qty: 7 0RF potassium chloride 10 mEq Capsule, Extended Release 10 meq PO BIDWM Qty: 60 0RF magnesium oxide 400 mg (241.3 mg magnesium) Tablet 400 mg PO BID Qty: 60 0RF torsemide 20 mg Tablet 20 mg PO DAILY@0800 Qty: 30 0RF acetaminophen 500 mg tablet 1,000 mg PO TID Qty: 180 0RF zolpidem 5 mg tablet 5 mg PO PRN Qty: 30 0RF oxycodone 5 mg tablet 5 mg PO Q4H PRN (Reason: pain) Qty: 90 0RF Follow Up/Referrals: Provider,Not a Local [Primary Care Provider] - Stand Alone Forms: [facility] Info Instructions
--- NOTE | 2022-07-05 21:59 | CRLHL7_ITS ---
For Patients: As a result of the Century Cures Act, medical imaging exams and procedure reports are released immediately into your electronic medical record. You may view this report before your referring provider. If you have questions, please contact your health care provider. INDICATION: Three day history of upper abdominal pain TECHNIQUE: CT abdomen and pelvis acquired with 122 cc Isovue 370 IV contrast. COMPARISON: March 12, 2022 FINDINGS: Images are degraded by patient motion artifact. Lower chest: Patchy opacity in the right lower lobe. Liver: Hepatic steatosis.. Spleen: Unremarkable. Pancreas: Unremarkable. Gallbladder and bile ducts: S/p cholecystectomy. Adrenal glands: Unremarkable. Kidneys: Unremarkable. GI tract: Colonic diverticulosis. Appendix is not seen. Vascular structures: Aortoiliac calcifications. Lymph nodes: Unremarkable. Miscellaneous: Unremarkable. No free air or significant free fluid. Pelvic Organs: Status post hysterectomy. Bones: Mild dextroscoliosis. Old L1 fracture contain vertebroplasty material. IMPRESSION: Patchy opacity in the right lower lobe may represent atelectasis or infection. No acute intra-abdominal process. Hepatic steatosis. Colonic diverticulosis. Status post cholecystectomy, hysterectomy, and L1 vertebroplasty. Please note that all CT scans at this facility use dose modulation, iterative reconstruction, and/or weight-based dosing when appropriate to reduce radiation dose to as low as reasonably achievable. Dictated by Ailin River MD @ 07/06/2022 12:23:42 AM (Electronically Signed)
--- NOTE | 2022-07-05 22:03 | CRLHL7_ITS ---
For Patients: As a result of the Century Cures Act, medical imaging exams and procedure reports are released immediately into your electronic medical record. You may view this report before your referring provider. If you have questions, please contact your health care provider. Indication: Cough Technique: Chest 1 view Comparison: March 15, 2022 Findings/Impression: Cardiac size appears prominent likely due to portable technique. Normal pulmonary vasculature. Minimal linear atelectasis in the left mid lung. Questionable patchy opacity in the medial aspect of the right lower lung field could represent atelectasis or infection. No pneumothorax or effusion. Dictated by Ailin River MD @ 07/06/2022 12:16:28 AM (Electronically Signed)
[2022-07-05 22:37] LABS: Lactate* 2.5 mmol/L (0.5-1.9)
[2022-07-05 22:43] LABS: Basophils Absolute Auto 0.01 K/uL (0.00-0.30); Basophils Percent Auto 0.1 % (0.0-3.0); Eosinophils Absolute Auto 0.32 K/uL (0.00-0.50); Eosinophils Percent Auto 3.4 % (0.0-7.0); Hemoglobin* 12.5 gm/dL (12.0-16.0); Immature Granulocytes Abs Auto 0.02 K/uL (0.00-0.30); Immature Granulocytes Pct Auto 0.2 %; Lymphocytes Absolute Auto 2.74 K/uL (0.90-2.90); Lymphocytes Percent Auto 28.7 % (20-44); Mean Corpuscular HGB Conc 33 gm/dL (32-36); Mean Corpuscular Hemoglobin 30 pg (26-34); Mean Corpuscular Volume 92 fL (80-100); Monocytes Percent Auto 6.6 % (0.0-11.0); Neutrophils Absolute Auto 5.83 K/uL (1.7-7.0); Platelet Count* 251 K/uL (140-440); Red Blood Count 4.12 m/uL (4.00-5.20); White Blood Count* 9.55 K/uL (4.50-11.00)
[2022-07-05 22:48] LABS: Appearance Urine Clear (Clear); Bilirubin Urine Negative (Negative); Blood Urine Negative (Negative); Color Urine Yellow (Yellow); Glucose Urine Negative (Negative); Ketones Urine Negative (Negative); Leukocyte Esterase Urine Negative (Negative); Nitrite Urine Negative (Negative); Protein Urine Negative (Negative); Specific Gravity Urine 1.015 (1.000-1.030); pH Urine 6.5 (5.0-8.5)
[2022-07-05 22:49] LABS: Slide Review Reflex No
[2022-07-05 22:55] LABS: Albumin* 3.9 g/dL (3.3-5.0); Chloride* 99 mmol/L (96-114)
[2022-07-05 22:56] LABS: Amphetamine Screen Urine Negative (Negative); Barbiturate Screen Urine Negative (Negative); Benzodiazepines Screen Urine Negative (Negative); Cannabinoid Screen Urine Negative (Negative); Cocaine Screen Urine Negative (Negative); Methadone Screen Urine Negative (Negative); Methamphetamines Screen Urine Negative (Negative); Opiate Screen Urine Negative (Negative); Phencyclidine Screen Urine Negative (Negative); Tricyclic Antidepressant Urine Negative (Negative)
[2022-07-05 22:56] LABS: Sodium* 137 mmol/L (135-149)
[2022-07-05 22:58] LABS: Aspartate Amino Transferase* 31 U/L (12-35); Bilirubin Direct* 0.5 mg/dL (0.0-0.5); Bilirubin Total* 0.7 mg/dL (0.1-1.5); Carbon Dioxide* 30 mmol/L (20-32); Creatinine* 0.7 mg/dL (0.5-1.5); Estimated Glomerular Filt Rate 93 ml/min; Total Protein* 7.5 g/dL (6.0-8.3)
[2022-07-05 22:58] LABS: Oxycodone Screen Urine POSITIVE (Negative)
[2022-07-05 22:59] LABS: Alanine Aminotransferase* 21 U/L (4-35); Alkaline Phosphatase* 99 U/L (40-150); Blood Urea Nitrogen* 16 mg/dL (7-30); Calcium* 9.1 mg/dL (8.4-10.6); Glucose* 239 mg/dL (60-115); Lipase* 276 U/L (23-300)
[2022-07-05 23:00] LABS: Ethanol* < 0.01 % (0.01-0.03)
[2022-07-05 23:01] LABS: C Reactive Protein* 0.7 mg/dL (0.5-1.0)
[2022-07-05 23:08] LABS: RBC Urine 0-2 (0-2)
[2022-07-05 23:09] LABS: Bacteria Urine Few; Squamous Epithelial Cell Urine Few (None-Few)
[2022-07-05 23:12] LABS: Potassium* 2.8 mmol/L (3.6-5.1)
--- NOTE | 2022-07-05 23:27 | PC.NURSE ---
patient to CT
[2022-07-05] MEDS: POTASSIUM BICARB 25 MEQ EFFERVESCENT TAB 50 MEQ PO (23:54)
[2022-07-06] VITALS: PULSE 83; O2SAT 96
[2022-07-06 00:02] VITALS: BP 138/70; PULSE 92; O2SAT 97
[2022-07-06 00:18] LABS: SARS PCR* Negative SARS-CoV-2 (Negative)
[2022-07-06 00:30] VITALS: PULSE 88; O2SAT 95
[2022-07-06 00:32] VITALS: BP 140/76; PULSE 87; O2SAT 94
[2022-07-06] MEDS: DOXYCYCLINE HYCLATE 100 MG CAPSULE PO (00:47)
[2022-07-06 00:48] VITALS: BP 124/64
--- NOTE | 2022-07-06 01:04 | PC.NURSE ---
patient DC via EMS transport back to [facility], patient stated understanding of DC instruction. instruction packet given to EMS to give to [facility] nurse. [facility], spoke to Jaysrhee and updated that patient is returning at this time via ambulance and that RX had been sent to [facility] pharmacy and DC instructions are sent with patient, asked if any questions and staff states no questions and nurse will review all ordres when she arrives in the morning.
== END 2022-07-06 01:00 | disposition home or self-care (01) ==
PROVIDERS: Emergency Provider Family Medicine
DX: J18.9 Pneumonia, unspecified organism (principal); E87.6 Hypokalemia
CPT/HCPCS: 36415; 71045; 74177; 80053; 80306; 81001; 82077; 82248; 83605; 83690; 85025; 86140; 87086; 87635; 94761; 99284; 99285; A9270; Q9967

== ENCOUNTER 2022-07-06 00:58 | Outpatient (CLI) | payer BC, SELFPAY | END 2022-07-06 00:59 | disposition home or self-care (01) | LOC: AMB 07-08 12:49 | PROVIDERS: Visit Provider Family Medicine | DX: R53.1 Weakness (principal) | CPT/HCPCS: A0425; A0428 ==

== ENCOUNTER 2022-07-21 01:48 | Inpatient (IN) | payer BC, SELFPAY ==
[2022-07-21] VITALS (12 sets, daily range): BP systolic 116–160; BP diastolic 71–100; PULSE 97–122; RESP 12–18; TEMP 36.1–37.7; O2SAT 85–97; BMI 37.3
--- NOTE | 2022-07-21 01:56 | PC.NURSE ---
Narcan 1 mg given IV
--- NOTE | 2022-07-21 01:59 | PC.NURSE ---
narcan 1mg given iv, pt began trying to talk prior to administration. states they give them to me re: meds
[2022-07-21] MEDS: NALOXONE 1 MG/ML SYRINGE 2 MG IV ×2 (02:05→02:55)
--- NOTE | 2022-07-21 02:05 | CRLHL7_ITS ---
For Patients: As a result of the Cures Act, medical imaging exams and procedure reports are released immediately into your electronic medical record. You may view this report before your referring provider. If you have questions, please contact your health care provider. INDICATION: Transient alteration of awareness, head injury from fall TECHNIQUE: CT Head without i.v. contrast. Coronal and sagittal reformats were obtained. COMPARISON: 10/19/2021 FINDINGS: CSF space: Unremarkable for age. Brain: No evidence of mass, acute infarction or hemorrhage is seen. No mass-effect or midline shift is seen. Mild diffuse cortical atrophy is noted. The brain parenchyma is otherwise normal in appearance with preservation of the faith-white matter junction. Calvarium: The visualized paranasal sinuses are well aerated. The mastoid air cells are clear. The visualized orbits are grossly unremarkable. The calvarium is unremarkable in appearance with no fractures identified. IMPRESSION: 1. No evidence of acute infarction, intracranial hemorrhage, or mass-effect seen. Please note that all CT scans at this facility use dose modulation, iterative reconstruction, and/or weight-based dosing when appropriate to reduce radiation dose to as low as reasonably achievable. Dictated by: Fabrice Cortez MD @ 07/21/2022 03:49:17 (Electronically Signed)
--- NOTE | 2022-07-21 02:05 | CRLHL7_ITS ---
For Patients: As a result of the Century Cures Act, medical imaging exams and procedure reports are released immediately into your electronic medical record. You may view this report before your referring provider. If you have questions, please contact your health care provider. INDICATION: Transient alteration of awareness, cervical spine injury from fall TECHNIQUE: CT cervical spine without i.v. contrast. Coronal and sagittal reformats were obtained. COMPARISON: 10/19/2021 FINDINGS: The sensitivity and specificity of the exam are severely limited by the patient`s body habitus and motion artifacts. Alignment: Mild stable kyphosis of the upper cervical spine is noted. Bone: No acute fractures or aggressive bone lesions are identified. Disc: Severe degenerative disc disease with anterior endplate osteophytes are noted from C3-4 through C6-7. Scattered facet osteoarthritis is noted bilaterally. Soft tissue: The prevertebral soft tissues are unremarkable in appearance. The visualized lung apices and mediastinum are unremarkable. Bilateral calcified carotid plaques are noted. IMPRESSION: 1. No acute osseous injuries are identified. Dictated by Fabrice Cortez MD @ 07/21/2022 3:54:22 AM Please note that all CT scans at this facility use dose modulation, iterative reconstruction, and/or weight-based dosing when appropriate to reduce radiation dose to as low as reasonably achievable. Dictated by: Fabrice Cortez MD @ 07/21/2022 03:54:30 (Electronically Signed)
--- NOTE | 2022-07-21 02:07 | ED_ITS ---
HPI - Altered Mental Status General Date Seen: 07/21/22 Chief Complaint: Altered Mental Status Stated Complaint: Low Heartrate Time Seen by Provider: 07/21/22 01:52 Source: patient and EMS Mode of arrival: EMS Limitations: no limitations History of Present Illness HPI narrative: Patient is a 72-year-old female who presents here for decreased level of consciousness [place] found beside her bed, kneeling almost in a position. EMS daughter, she is breathing appropriately with with vital signs that were normal, she was not responding to to them at this time. She is brought in here to [facility] for further assessment. Glucose was 270 per EMS. Last seen well was 9:30 p.m. yesterday by staff MD complaint: altered mental status and decreased responsiveness Severity: moderate Related Data Home Medications Medication Instructions Recorded Confirmed amlodipine 5 mg tablet 5 mg PO DAILY 10/19/21 03/12/22 aspirin 81 mg tablet,delayed 81 mg PO DAILY 10/19/21 03/12/22 release dorzolamide 22.3 mg-timolol 6.8 1 drp ophthalmic (eye) BID 10/19/21 03/13/22 mg/mL eye drops duloxetine 60 mg capsule,delayed 120 mg PO DAILY 10/19/21 03/13/22 release famotidine 20 mg tablet 20 mg PO HS 10/19/21 03/13/22 fluticasone propionate 50 2 spray intranasal DAILY 10/19/21 03/13/22 mcg/actuation nasal spray,suspension gabapentin 600 mg tablet 600 mg PO TID 10/19/21 03/13/22 hydrochlorothiazide 25 mg tablet 25 mg PO DAILY 10/19/21 03/13/22 insulin aspart U-100 100 unit/mL 1 sliding scale dose subcut 10/19/21 03/13/22 (3 mL) subcutaneous pen BID@12,18 insulin glargine 100 unit/mL (3 40 unit subcut HS 10/19/21 03/13/22 mL) subcutaneous pen (Lantus Solostar U-100 Insulin) latanoprost 0.005 % eye drops 1 drp ophthalmic (eye) HS 10/19/21 03/13/22 nicotine (polacrilex) 2 mg gum 2 mg buccal PRN 10/19/21 03/13/22 oxybutynin chloride 5 mg 5 mg PO HS 10/19/21 03/13/22 tablet,extended release 24 hr pantoprazole 40 mg tablet,delayed 40 mg PO DAILY 10/19/21 03/13/22 release risperidone 2 mg tablet 2 mg PO BID 10/19/21 03/13/22 albuterol sulfate 90 mcg/actuation 1 puff inhalation DAILY PRN 03/13/22 03/13/22 aerosol inhaler (Ventolin HFA) atorvastatin 10 mg tablet 10 mg PO HS 03/13/22 03/13/22 carboxymethylcellulose sodium 0.5 1 drp ophthalmic (eye) TID PRN 03/13/22 03/13/22 % eye drops in a dropperette (Lubricating Plus) cetirizine 10 mg tablet 10 mg PO DAILY PRN 03/13/22 03/13/22 cholecalciferol (vitamin D3) 25 1,000 unit PO DAILY 03/13/22 03/13/22 mcg (1,000 unit) tablet diclofenac sodium 1 % topical gel 2 g topical QID PRN 03/13/22 03/13/22 epinephrine 0.3 mg/0.3 mL 0.3 mg IM PRN PRN 03/13/22 03/13/22 injection, auto-injector hydroxyzine HCl 25 mg tablet 25 mg PO TID PRN 03/13/22 03/13/22 nicotine 21 mg/24 hr daily 1 patch topical DAILY 03/13/22 03/13/22 transdermal patch ondansetron 4 mg disintegrating 4 mg PO Q6H PRN 03/13/22 03/13/22 tablet peg 400-propylene glycol 0.4 %-0.3 1 drp ophthalmic (eye) QID 03/13/22 03/13/22 % eye drops (Systane Ultra) polyethylene glycol 3350 17 17 g PO DAILY 03/13/22 03/13/22 gram/dose oral powder (Gavilax) sitagliptin phosphate 100 mg 100 mg PO DAILY 03/13/22 03/13/22 tablet (Januvia) Previous Rx's Medication Instructions Recorded acetaminophen 500 mg tablet 1,000 mg (2 x 500 mg) PO TID #180 03/16/22 tabs levofloxacin 500 mg tablet 500 mg PO Q24H #7 tabs 03/16/22 magnesium oxide 400 mg (241.3 mg 400 mg PO BID #60 tabs 03/16/22 magnesium) tablet oxycodone 5 mg tablet 5 mg PO Q4H PRN pain #90 tabs 03/16/22 potassium chloride 10 mEq 10 meq PO BIDWM #60 caps 03/16/22 capsule,extended release torsemide 20 mg tablet 20 mg PO DAILY@0800 #30 tabs 03/16/22 zolpidem 5 mg tablet 5 mg PO PRN #30 tabs 03/16/22 doxycycline monohydrate 100 mg 100 mg PO BID #19 caps 07/06/22 capsule Allergies Allergy/AdvReac Type Severity Reaction Status Date / Time aspirin Allergy Verified 07/05/22 23:54 bee venom protein (honey bee) Allergy Verified 07/05/22 23:54 ketorolac [From Toradol] Allergy Verified 07/05/22 23:54 losartan Allergy Verified 07/05/22 23:54 NSAIDS (Non-Steroidal Allergy Verified 07/05/22 23:54 Anti-Inflamma Penicillins Allergy Verified 07/05/22 23:54 tramadol Allergy Verified 07/05/22 23:54 varenicline Allergy Verified 07/05/22 23:54 Review of Systems Status of ROS: Reports: unobtainable due to medical condition and unobtainable due to mental status PFSH PFSH Medical History Type 2 diabetes mellitus ?E11.9 - Type 2 diabetes mellitus without complications (ICD-10) Sleep apnea with hypersomnolence ?G47.10 - Hypersomnia, unspecified (ICD-10) ?G47.30 - Sleep apnea, unspecified (ICD-10) Hepatic steatosis ?K76.0 - Fatty (change of) liver, not elsewhere classified (ICD-10) Physical deconditioning ?R53.81 - Other malaise (ICD-10) Polypharmacy ?Z79.899 - 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 (ICD-10) Chronic, continuous use of opioids ?F11.90 - Opioid use, unspecified, uncomplicated (ICD-10) Heart failure ?I50.9 - Heart failure, unspecified (ICD-10) Osteoarthritis ?M19.90 - Unspecified osteoarthritis, unspecified site (ICD-10) Degenerative disc disease, lumbar ?M51.36 - Other intervertebral disc degeneration, lumbar region (ICD-10) Anxiety, generalized ?F41.1 - Generalized anxiety disorder (ICD-10) Antisocial personality disorder ?F60.2 - Antisocial personality disorder (ICD-10) Back pain ?M54.9 - Dorsalgia, unspecified (ICD-10) Chronic pain syndrome ?G89.4 - Chronic pain syndrome (ICD-10) Nicotine dependence ?F17.200 - Nicotine dependence, unspecified, uncomplicated (ICD-10) Borderline personality disorder ?F60.3 - Borderline personality disorder (ICD-10) Asthma ?J45.909 - Unspecified asthma, uncomplicated (ICD-10) COPD (chronic obstructive pulmonary disease) ?J44.9 - Chronic obstructive pulmonary disease, unspecified (ICD-10) Diabetes mellitus type 2 in obese ?E11.69 - Type 2 diabetes mellitus with other specified complication (ICD-10) ?E66.9 - Obesity, unspecified (ICD-10) Hypertension, essential ?I10 - Essential (primary) hypertension (ICD-10) Obesity ?E66.9 - Obesity, unspecified (ICD-10) Surgical History History of total knee arthroplasty ?Z96.659 - Presence of unspecified artificial knee joint (ICD-10) History of cholecystectomy ?Z90.49 - Acquired absence of other specified parts of digestive tract (ICD- 10) Family History Father Stomach cancer Brother Heart disease Social History Narrative: Patient is a resident of [facility]. She tells me she has been smoking 2 or 3 cigarettes per day. She is attempting to quit. She does not drink alcohol. Her healthcare power of pilot supervisor would be her son Korey Miles, code status is full. Smoking Status: Current every day smoker What tobacco products do you use: cigarettes Smoking quit date/years: <= 15 years ago Do you use any of these nicotine containing products: None Nicotine containing products detail: quit today Second hand tobacco smoke exposure: No How often do you have a drink containing alcohol: never How often do you have six or more drinks on one occasion: Never AUDIT-C Alcohol total score: 0 Non-prescribed substance use: denies use Caffeine: Yes (clara) service: No Exam Narrative: Exam Narrative: Patient is seen in room a, her saturations vary between 85% and 92%, on room air, pupils are pinpoint bilaterally, she is able open her eyes very slowly and she has sonorous respirations. IV is in the right hand, TMs are normal bilaterally there is no evidence of any trauma over head or neck region, her chest is good air entry bilaterally with no wheezing crackles noted, heart sounds no clicks murmurs or gallops, her abdomen is soft and obese there is no guarding, she does not move her lower or upper extremities, when I for pain, She is given 2 mg of Narcan, she is not coming around speaking to us per making some purposeful movements and following commands. GCS is now 12/15, she responds verbally, makes purposeful movements. Const: Vital Signs, click to edit/add: Vital Signs - 24 hr 07/21/22 02:32 07/21/22 03:44 07/21/22 04:30 Temperature 97.0 F L 97.8 F Pulse Rate [Pulse Oximeter] 113 H 105 H 106 H Respiratory Rate 14 16 14 Blood Pressure [Ri ght Upper Arm] 128/92 H 141/100 H 133/92 H Pulse Oximetry 88 96 97 Oxygen Delivery Me thod Nasal Cannula Room Air Nasal Cannula Oxygen Flow Rate 2 07/21/22 06:20 Temperature Pulse Rate [Pulse Oximeter] 108 H Respiratory Rate 14 Blood Pressure [Ri ght Upper Arm] 131/79 Pulse Oximetry 92 Oxygen Delivery Me thod Nasal Cannula Oxygen Flow Rate 2 Documenting provider has reviewed patient's vital signs: yes Course Course Hospital Course: Very tough time wrist have issue IV access but we were able to find 1 IV in her right hand. Reevaluation(s) Reevaluation #1: Gave her another 2 mg IV of Narcan, she woke up and started talking to us about not taking extra pain medication. She is moving all extremities, and purposeful, certainly seems like this is narcotic related at this point we will get a head CT. Time: 03:05 Reevaluation #2: Patient was able to get up onto the commode in the room. To give us a urine sample. He is still somewhat groggy, and undoubtedly has sleep apnea. I do believe she is overmedicated, my suggestion is to decrease the Buprenorphin to b.i.d. and stop the oxycodone if she is still over sedated and I would also consider decreasing the risperidone. We also got her up she is complaining of pain in her left knee, this is consistent with when the paramedics found her on all fours in her room. I wonder if she injured her left knee, and possibly fell, and given her state was unable to tell as she was in pain. We will do an x-ray of her knee. Given her likely sleep apnea I would recommend that the decrease in the narcotics, hopefully get her off of these. Would be highly suggested Time: 06:33 Reevaluation #3: When we got patient up to the go to the commode, she was unable to bear weight on her left leg, her right leg was very shaky, x-ray of her left knee do not show any acute abnormality of her arthroplasty. Radiological over-read pending, given this fact she cannot go back to her current living situation. I spoke to the inpatient hospitalist. We will admit her to the hospital, under observation status. Time: 07:17 Vital Signs Vital signs: Initial Vital Signs Temperature 97.0 F L 07/21/22 02:32 Temperature Source Temporal Artery Scan 07/21/22 02:32 Pulse Rate 113 H 07/21/22 02:32 Pulse Rhythm Regular 07/21/22 02:32 Respiratory Rate 14 07/21/22 02:32 Blood Pressure 128/92 H 07/21/22 02:32 Blood Pressure Mean 104 07/21/22 02:32 Blood Pressure Position Supine 07/21/22 02:32 Pulse Oximetry 88 07/21/22 02:32 Oxygen Delivery Method Nasal Cannula 07/21/22 02:32 Vital Signs Temperature 97.0 F L 07/21/22 02:32 Pulse Rate 113 H 07/21/22 02:32 Respiratory Rate 14 07/21/22 02:32 Blood Pressure 128/92 H 07/21/22 02:32 Pulse Oximetry 88 07/21/22 02:32 Oxygen Delivery Method Nasal Cannula 07/21/22 02:32 Temperature 97.8 F 07/21/22 03:44 Pulse Rate 108 H 07/21/22 06:20 Respiratory Rate 14 07/21/22 06:20 Blood Pressure 131/79 07/21/22 06:20 Pulse Oximetry 92 07/21/22 06:20 Oxygen Delivery Method Nasal Cannula 07/21/22 06:20 Oxygen Flow Rate 2 07/21/22 06:20 MDM - Altered Mental Status MDM Narrative Medical decision making narrative: Multiple differential diagnoses were considered for altered mental status. The life-threatening differential diagnosis considered include: Meningitis/encephalitis, bacteremia, subdural, cerebrovascular accident, SAH, and hypertensive encephalopathy. Other differential diagnosis included include medication effect, hypoxia, hypoglycemia, hypercalcemia, hypo or hypernatremia, hypothyroidism, hepatic encephalopathy, carbon monoxide poisoning, UTI, pneumonia, depression, seizure, as well as other etiologies. Differential Diagnosis Differential diagnosis: Likely alcoholic intoxication, altered mental status, delirium, dementia, hypoglycemia, hyponatremia, subarachnoid hemorrhage and sepsis Medical Records Attestation: I reviewed the patient's medical records. Lab Data Attestation: I reviewed the patient's lab results. Labs: Lab Results 07/21/22 07/21/22 07/21/22 Range/Units 02:06 02:12 02:20 WBC (4.50-11.00) K/uL RBC (4.00-5.20) m/uL Hgb (12.0-16.0) gm/dL Hct (33.0-51.0) % MCV (80-100) fL MCH (26-34) pg MCHC (32-36) gm/dL RDW Coeff of Rosa (11.5-15.5) % Plt Count (140-440) K/uL Neut % (Auto) (42.0-72.0) % Lymph % (Auto) (20-44) % [place] % (Auto) (0.0-11.0) % Eos % (Auto) (0.0-7.0) % Baso % (Auto) (0.0-3.0) % Neut # (Auto) (1.7-7.0) K/uL Lymph # (Auto) (0.90-2.90) K/uL [place] # (Auto) (0.00-0.90) K/UL Eos # (Auto) (0.00-0.50) K/uL Baso # (Auto) (0.00-0.30) K/uL ABG pH 7.30 L (7.35-7.45) ABG pCO2 60 H (35-45) mmHG ABG pO2 69.3 L (80-105) mmHG ABG HCO3 30 H (21-28) mmol/L ABG Total CO2 27 (21-30) mmol/l ABG O2 Saturation 93 (92-100) % ABG Base Excess 1.8 (-3.0-3.0) mmol/L Carboxyhemoglobin 2.7 (0.0-5.0) % Sodium (135-149) mmol/L Potassium (3.6-5.1) mmol/L Chloride (96-114) mmol/L Carbon Dioxide (20-32) mmol/L BUN (7-30) mg/dL Creatinine (0.5-1.5) mg/dL Estimated GFR ml/min Glucose (60-115) mg/dL Lactate (0.5-1.9) mmol/L Calcium (8.4-10.6) mg/dL Urine Opiates Screen Negative (Negative) Ur Oxycodone Screen Negative (Negative) Urine Methadone Screen Negative (Negative) Ur Propoxyphene Screen Negative (Negative) Ur Barbiturates Screen Negative (Negative) U Tricyclic Antidepress Negative (Negative) Ur Phencyclidine Scrn Negative (Negative) Ur Amphetamines Screen Negative (Negative) U Methamphetamines Scrn Negative (Negative) U Benzodiazepines Scrn Negative (Negative) Urine Cocaine Screen Negative (Negative) U Marijuana (THC) Screen Negative (Negative) Ur Drug Screen Comment See Note Ethyl Alcohol (0.01-0.03) % POC Troponin I 0.00 L (0.01-0.04) ng/ml 07/21/22 Range/Units 02:30 WBC 11.41 H (4.50-11.00) K/uL RBC 4.42 (4.00-5.20) m/uL Hgb 13.6 (12.0-16.0) gm/dL Hct 42.7 (33.0-51.0) % MCV 97 (80-100) fL MCH 31 (26-34) pg MCHC 32 (32-36) gm/dL RDW Coeff of Rosa 13.3 (11.5-15.5) % Plt Count 60 L (140-440) K/uL Neut % (Auto) 71.6 (42.0-72.0) % Lymph % (Auto) 21.4 (20-44) % [place] % (Auto) 5.4 (0.0-11.0) % Eos % (Auto) 1.1 (0.0-7.0) % Baso % (Auto) 0.1 (0.0-3.0) % Neut # (Auto) 8.20 H (1.7-7.0) K/uL Lymph # (Auto) 2.40 (0.90-2.90) K/uL [place] # (Auto) 0.60 (0.00-0.90) K/UL Eos # (Auto) 0.10 (0.00-0.50) K/uL Baso # (Auto) 0.00 (0.00-0.30) K/uL ABG pH (7.35-7.45) ABG pCO2 (35-45) mmHG ABG pO2 (80-105) mmHG ABG HCO3 (21-28) mmol/L ABG Total CO2 (21-30) mmol/l ABG O2 Saturation (92-100) % ABG Base Excess (-3.0-3.0) mmol/L Carboxyhemoglobin (0.0-5.0) % Sodium 140 (135-149) mmol/L Potassium 4.1 (3.6-5.1) mmol/L Chloride 100 (96-114) mmol/L Carbon Dioxide 28 (20-32) mmol/L BUN 18 (7-30) mg/dL Creatinine 0.9 (0.5-1.5) mg/dL Estimated GFR 69 ml/min Glucose 229 H (60-115) mg/dL Lactate 3.6 H (0.5-1.9) mmol/L Calcium 9.7 (8.4-10.6) mg/dL Urine Opiates Screen (Negative) Ur Oxycodone Screen (Negative) Urine Methadone Screen (Negative) Ur Propoxyphene Screen (Negative) Ur Barbiturates Screen (Negative) U Tricyclic Antidepress (Negative) Ur Phencyclidine Scrn (Negative) Ur Amphetamines Screen (Negative) U Methamphetamines Scrn (Negative) U Benzodiazepines Scrn (Negative) Urine Cocaine Screen (Negative) U Marijuana (THC) Screen (Negative) Ur Drug Screen Comment Ethyl Alcohol < 0.01 L (0.01-0.03) % POC Troponin I (0.01-0.04) ng/ml ABG Data ABG results: ABG done on room air shows elevated total CO2, in the setting of decreased oxygen, normal pH, bicarb level elevated, consistent with more of a chronic picture. Attestation: I have reviewed the pertinent ABG results. Interpretation: Hypercarbia with mild hypoxemia consistent with CO2 retention due to hypoventilation Imaging Data CT scan - head: Attestation: I have reviewed the pertinent imaging results. My impression: No acute changes of head, cervical spine, chest x-ray Radiologist's impression: Patient: EMILEE GALVEZ Facility:?[facility] Patient ID:?[id number] Site Patient ID:?[id number]. Site :?[id number] Study:?XRay Chest PORTABLE 1V-07/21/2022 3:45:42 AM Ordering Physician:Gayla Thompson Final Report: INDICATION: Transient alteration of awareness TECHNIQUE: Chest radiograph 1 view COMPARISON: 07/05/2022 FINDINGS: The sensitivity and specificity of the exam are severely limited by the patient`s body habitus. Mediastinum: The mediastinum is normal in appearance. The heart silhouette is normal in size and morphology. Lung: Very small lung volumes are present with perihilar atelectasis noted. No sign of pleural effusion seen. No pneumothorax is identified. Bone and Soft tissue: Unremarkable for age. IMPRESSION: 1. Very small lung volumes are present with perihilar atelectasis noted. Dictated by Fabrice Cortez MD @ 07/21/2022 3:54:59 AM Dictated by: Fabrice Cortez MD @ 07/21/2022 04:00:27 (Electronic Signature) Patient: EMILEE VERONA Facility:?[facility] Patient ID:?[id number] Site Patient ID:?[id number] Site :?[id number] Study:?CT Spine Cervical -07/21/2022 3:46:07 AM Ordering Physician:Gayla Thompson Final Report: INDICATION: Transient alteration of awareness, cervical spine injury from fall TECHNIQUE: CT cervical spine without i.v. contrast. Coronal and sagittal reformats were obtained. COMPARISON: 10/19/2021 FINDINGS: The sensitivity and specificity of the exam are severely limited by the patient`s body habitus and motion artifacts. Alignment: Mild stable kyphosis of the upper cervical spine is noted. Bone: No acute fractures or aggressive bone lesions are identified. Disc: Severe degenerative disc disease with anterior endplate osteophytes are noted from C3-4 through C6-7. Scattered facet osteoarthritis is noted bilaterally. Soft tissue: The prevertebral soft tissues are unremarkable in appearance. The visualized lung apices and mediastinum are unremarkable. Bilateral calcified carotid plaques are noted. IMPRESSION: 1. No acute osseous injuries are identified. Dictated by Fabrice Cortez MD @ 07/21/2022 3:54:22 AM Please note that all CT scans at this facility use dose modulation, iterative reconstruction, and/or weight-based dosing when appropriate to reduce radiation dose to as low as reasonably achievable. Dictated by: Fabrice Cortez MD @ 07/21/2022 03:54:30 (Electronic Signature) Patient: EMILEE GALVEZ Facility:?[facility] Patient ID:?[id number] Site Patient ID:?[id number]. Site :?1950 Study:?CT Head -07/21/2022 3:46:17 AM Ordering Physician:Gayla Thompson Final Report: INDICATION: Transient alteration of awareness, head injury from fall TECHNIQUE: CT Head without i.v. contrast. Coronal and sagittal reformats were obtained. COMPARISON: 10/19/2021 FINDINGS: CSF space: Unremarkable for age. Brain: No evidence of mass, acute infarction or hemorrhage is seen. No mass- effect or midline shift is seen. Mild diffuse cortical atrophy is noted. The brain parenchyma is otherwise normal in appearance with preservation of the faith-white matter junction. Calvarium: The visualized paranasal sinuses are well aerated. The mastoid air cells are clear. The visualized orbits are grossly unremarkable. The calvarium is unremarkable in appearance with no fractures identified. IMPRESSION: 1. No evidence of acute infarction, intracranial hemorrhage, or mass-effect seen. Please note that all CT scans at this facility use dose modulation, iterative reconstruction, and/or weight-based dosing when appropriate to reduce radiation dose to as low as reasonably achievable. Dictated by: Fabrice Cortez MD @ 07/21/2022 03:49:17 (Electronic Signature) ECG Data Attestation: I personally reviewed and interpreted this ECG as follows: ECG interpretation date: 07/21/22 Interpretation: No acute changes, mild tachycardia at 105 Critical Care Time Critical Care Time Critical Care Time: Yes Attestation: The patient required my highest level preparedness to intervene emergently and I personally spent this critical care time directly and personally managing the patient. This critical care time included: Obtaining a history; Examining the patient; Pulse oximetry; Ordering and reviewing of studies; Arranging urgent treatment with development of a management plan; Evaluation of patients response to treatment; Frequent reassessment discussions with other providers. This critical care time was performed to assess and manage the high probability of imminent life-threatening deterioration that could result in multiorgan failure. It was exclusive of separate billable procedures and treating other patients and teaching time. Total Critical Care Time in Minutes: 60 Discharge Plan Discharge Clinical Impression: Sleep apnea with hypersomnolence, Chronic, continuous use of opioids, Polypharmacy, Altered mental status, Unable to bear weight on left lower extremity, Contusion of knee, left Patient Disposition: Admitted As Inpatient Condition: Improved Instructions: Altered Mental Status (ED), Narcotic Use Disorder (ED), Opioid Use Disorder (ED) Additional Instructions: Decrease the Buprenorphine to twice daily, stop the oxycodone. If she still fine she is sedated then she will need to have a decreased dose of risperidone. Return as needed Prescriptions: No Action amlodipine 5 mg tablet 5 mg PO DAILY aspirin 81 mg tablet,delayed release (DR/EC) 81 mg PO DAILY latanoprost 0.005 % drops 1 drp OPHTHALMIC (EYE) HS Rx Instructions: BOTH EYES gabapentin 600 mg tablet 600 mg PO TID nicotine (polacrilex) 2 mg gum 2 mg buccal PRN risperidone 2 mg tablet 2 mg PO BID famotidine 20 mg tablet 20 mg PO HS pantoprazole 40 mg tablet,delayed release (DR/EC) 40 mg PO DAILY oxybutynin chloride 5 mg tablet extended release 24 hr 5 mg PO HS dorzolamide-timolol 22.3-6.8 mg/mL drops 1 drp OPHTHALMIC (EYE) BID Rx Instructions: BOTH EYES hydrochlorothiazide 25 mg tablet 25 mg PO DAILY fluticasone propionate 50 mcg/actuation spray,suspension 2 spray INTRANASAL DAILY insulin aspart U-100 100 unit/mL (3 mL) insulin pen 1 sliding scale dose SUBCUT BID@12,18 Rx Instructions: 0-7 UNITS duloxetine 60 mg capsule,delayed release(DR/EC) 120 mg PO DAILY insulin glargine [Lantus Solostar U-100 Insulin] 100 unit/mL (3 mL) insulin pen 40 unit SUBCUT HS atorvastatin 10 mg tablet 10 mg PO HS cetirizine 10 mg tablet 10 mg PO DAILY PRN cholecalciferol (vitamin D3) 25 mcg (1,000 unit) tablet 1,000 unit PO DAILY nicotine 21 mg/24 hr patch 24 hour 1 patch topical DAILY Systane Ultra 0.4-0.3 % drops 1 drp ophthalmic (eye) QID Rx Instructions: BOTH EYES polyethylene glycol 3350 [Gavilax] 17 gram/dose powder 17 g PO DAILY Januvia 100 mg tablet 100 mg PO DAILY diclofenac sodium 1 % gel 2 g topical QID PRN epinephrine 0.3 mg/0.3 mL auto-injector 0.3 mg IM PRN PRN Rx Instructions: do not exceed 3 doses per episode hydroxyzine HCl 25 mg tablet 25 mg PO TID PRN carboxymethylcellulose sodium [Lubricating Plus] 0.5 % dropperette 1 drp ophthalmic (eye) TID PRN albuterol sulfate [Ventolin HFA] 90 mcg/actuation HFA aerosol inhaler 1 puff INHALATION DAILY PRN ondansetron 4 mg tablet,disintegrating 4 mg PO Q6H PRN levofloxacin 500 mg Tablet 500 mg PO Q24H Qty: 7 0RF potassium chloride 10 mEq Capsule, Extended Release 10 meq PO BIDWM Qty: 60 0RF magnesium oxide 400 mg (241.3 mg magnesium) Tablet 400 mg PO BID Qty: 60 0RF torsemide 20 mg Tablet 20 mg PO DAILY@0800 Qty: 30 0RF acetaminophen 500 mg tablet 1,000 mg PO TID Qty: 180 0RF zolpidem 5 mg tablet 5 mg PO PRN Qty: 30 0RF oxycodone 5 mg tablet 5 mg PO Q4H PRN (Reason: pain) Qty: 90 0RF doxycycline monohydrate 100 mg capsule 100 mg PO BID Qty: 19 0RF Follow Up/Referrals: Provider,Not a Local [Primary Care Provider] - Stand Alone Forms: [facility] Info Instructions
--- NOTE | 2022-07-21 02:12 | CRLHL7_ITS ---
For Patients: As a result of the Cures Act, medical imaging exams and procedure reports are released immediately into your electronic medical record. You may view this report before your referring provider. If you have questions, please contact your health care provider. INDICATION: Transient alteration of awareness TECHNIQUE: Chest radiograph 1 view COMPARISON: 07/05/2022 FINDINGS: The sensitivity and specificity of the exam are severely limited by the patient`s body habitus. Mediastinum: The mediastinum is normal in appearance. The heart silhouette is normal in size and morphology. Lung: Very small lung volumes are present with perihilar atelectasis noted. No sign of pleural effusion seen. No pneumothorax is identified. Bone and Soft tissue: Unremarkable for age. IMPRESSION: 1. Very small lung volumes are present with perihilar atelectasis noted. Dictated by Fabrice Cortez MD @ 07/21/2022 3:54:59 AM Dictated by: Fabrice Cortez MD @ 07/21/2022 04:00:27 (Electronically Signed)
--- NOTE | 2022-07-21 02:19 | ED.NURSE ---
KENNY Anderson MD at bedside @ [id number]
[2022-07-21 02:26] LABS: ABG PCO2 60 mmHG (35-45); Base Excess ABG 1.8 mmol/L (-3.0-3.0); Carboxyhemoglobin* 2.7 % (0.0-5.0); HCO3 ABG 30 mmol/L (21-28); Oxygen Saturation ABG 93 % (92-100); PO2 ABG 69.3 mmHG (80-105); TCO2 ABG 27 mmol/l (21-30)
[2022-07-21] MEDS: 0.9 % SODIUM CHLORIDE 1000 ml 1,000 ML IV (02:35)
[2022-07-21 02:36] LABS: Lactate* 3.6 mmol/L (0.5-1.9)
[2022-07-21 02:37] LABS: Basophils Percent Auto 0.1 % (0.0-3.0); Eosinophils Percent Auto 1.1 % (0.0-7.0); Hematocrit 42.7 % (33.0-51.0); Hemoglobin* 13.6 gm/dL (12.0-16.0); Immature Granulocytes Pct Auto 0.4 %; Lymphocytes Percent Auto 21.4 % (20-44); Mean Corpuscular HGB Conc 32 gm/dL (32-36); Mean Corpuscular Hemoglobin 31 pg (26-34); Mean Corpuscular Volume 97 fL (80-100); Monocytes Percent Auto 5.4 % (0.0-11.0); Neutrophils Percent Auto 71.6 % (42.0-72.0); Platelet Count* 60 K/uL (140-440); RDW Coefficient of Variation % 13.3 % (11.5-15.5); Red Blood Count 4.42 m/uL (4.00-5.20); White Blood Count* 11.41 K/uL (4.50-11.00)
[2022-07-21 02:39] LABS: Slide Review Reflex No
[2022-07-21 02:56] LABS: Chloride* 100 mmol/L (96-114); Potassium* 4.1 mmol/L (3.6-5.1); Sodium* 140 mmol/L (135-149)
[2022-07-21 02:58] LABS: Creatinine* 0.9 mg/dL (0.5-1.5); Estimated Glomerular Filt Rate 69 ml/min
[2022-07-21 02:59] LABS: Blood Urea Nitrogen* 18 mg/dL (7-30); Calcium* 9.7 mg/dL (8.4-10.6); Carbon Dioxide* 28 mmol/L (20-32); Glucose* 229 mg/dL (60-115)
[2022-07-21 03:00] LABS: Ethanol* < 0.01 % (0.01-0.03)
--- NOTE | 2022-07-21 03:46 | PC.NURSE ---
pt returned from CT, unable to obtain 2nd IV access, physician also attempted with ultrasound. IV fluids running through EMS IV, continue fluids and monitor IV site (24g right thumb). Pt has received Narcan 4mg IV total, responding and waking to questions, able to follow commands. Falls back asleep quickly. VSS, oxygen at room air and sats 96-97%.
--- NOTE | 2022-07-21 06:22 | PC.NURSE ---
pt continues to sleep, intermittently wakes and looks around room when staff in, oriented to place. Denies discomfort, states I want my bed. Allowed to continue to sleep, vital signs stable, will continue to monitor. oxygen at 2L per NC as pt sats down to 85 on room air while asleep. Drugs of abuse urine still needed/ordered. Supplies at bedside for when pt wakes.
--- NOTE | 2022-07-21 06:49 | CRLHL7_ITS ---
For Patients: As a result of the Cures Act, medical imaging exams and procedure reports are released immediately into your electronic medical record. You may view this report before your referring provider. If you have questions, please contact your health care provider. Indication: Fall, inability to bear weight. Technique: Left knee 3 views. Comparison: None. Findings: Bones: Alignment is normal. No fractures or bone lesions. Joint spaces: Hardware from a total knee arthroplasty is in satisfactory position without evidence of loosening. No joint effusion. Soft tissues: Unremarkable. Impression: Unremarkable left knee. No signs of injury or other acute or significant finding. Dictated by Edu Mackay MD @ 07/21/2022 7:43:15 AM (Electronically Signed)
--- NOTE | 2022-07-21 06:55 | PC.NURSE ---
pt up to commode with gait belt and assist of two. pt unable to bear weight at all. left knee weak and pain with movement, right leg weak. pt states she was unable to move left leg when assisted to commode. pt states she can normally use a walker or a scooter and is independent with transfers and use of bathroom. Pt states she is not aware of any recent injury or fall, EMS stated when they arrived rubber chemist pt was on bilat knees leaning into bed with arms and head down on bed.
--- NOTE | 2022-07-21 06:57 | PC.NURSE ---
radiology here for portable xray of left knee. pt requests pain medication. states she did not take any pain pills or sleeping pills last night and that she didnt receive her 1900 meds.
[2022-07-21 07:03] LABS: Amphetamine Screen Urine Negative (Negative); Barbiturate Screen Urine Negative (Negative); Benzodiazepines Screen Urine Negative (Negative); Cannabinoid Screen Urine Negative (Negative); Cocaine Screen Urine Negative (Negative); Methadone Screen Urine Negative (Negative); Methamphetamines Screen Urine Negative (Negative); Opiate Screen Urine Negative (Negative); Oxycodone Screen Urine Negative (Negative); Phencyclidine Screen Urine Negative (Negative); Tricyclic Antidepressant Urine Negative (Negative)
[2022-07-21 08:39] LABS: HCO3 VBG 32 mmol/L (21-28); PO2 VBG 35.3 mmHG (25-47); pH VBG 7.304 (7.32-7.43)
[2022-07-21 08:43] LABS: PCO2 VBG 65 mmHG (40-50)
[2022-07-21 08:53] LABS: Hemoglobin A1C* 7.02 % (0-5.6)
[2022-07-21 09:00] LABS: Chloride* 101 mmol/L (96-114); Sodium* 139 mmol/L (135-149)
[2022-07-21 09:01] LABS: Potassium* 3.5 mmol/L (3.6-5.1)
[2022-07-21 09:03] LABS: Creatinine* 0.6 mg/dL (0.5-1.5); Estimated Glomerular Filt Rate 97 ml/min
[2022-07-21 09:04] LABS: Blood Urea Nitrogen* 15 mg/dL (7-30); Calcium* 9.1 mg/dL (8.4-10.6); Carbon Dioxide* 32 mmol/L (20-32); Glucose* 155 mg/dL (60-115); Lactate Dehydrogenase* 247 U/L (120-246)
--- NOTE | 2022-07-21 11:42 | P.IMHP_ITS ---
Hospitalist- H&P: HPI History of Present Illness Date Seen: 07/21/22 Chief complaint: Low Heartrate Narrative: Rena Fan is a 72 year old female who presented to the ED last night via EMS for a decreased level of consciousness. Patient is unable to provide much history. ER Course and findings: - patient given Narcan x2 - she did awaken enough to note that her L knee was hurting, XR did not reveal any acute abnormalities - no acute abnormalities noted on head CT, C-spine CT, chest x-ray, or left knee x-ray (previous L TKA noted) - given her persistent somnolence and inability to bear weight, she is admitted to the hospital Patient's past medical history is updated below after chart review. Patient is unable to provide much history; PCP is Sebastian Griffiths at [facility]. Per chart review, she was recently started on Suboxone (it is unclear if she is still taking her oxycodone). I am unable to ascertain her medication compliance. And that is able to wake up enough to tell me that she has intermittent stomach pain, her son would be medical decision maker if needed, and she requests full code status. Review of Systems Status of ROS: Reports: unobtainable due to mental status Narrative: Concerns for intermittent abdominal pain as noted above PFSH PFS Medical History Type 2 diabetes mellitus ?E11.9 - Type 2 diabetes mellitus without complications (ICD-10) Sleep apnea with hypersomnolence ?G47.10 - Hypersomnia, unspecified (ICD-10) ?G47.30 - Sleep apnea, unspecified (ICD-10) Hepatic steatosis ?K76.0 - Fatty (change of) liver, not elsewhere classified (ICD-10) Physical deconditioning ?R53.81 - Other malaise (ICD-10) Polypharmacy ?Z79.899 - Other nursing home (current) drug therapy (ICD-10) Chronic, continuous use of opioids ?F11.90 - Opioid use, unspecified, uncomplicated (ICD-10) Heart failure ?I50.9 - Heart failure, unspecified (ICD-10) Osteoarthritis ?M19.90 - Unspecified osteoarthritis, unspecified site (ICD-10) Degenerative disc disease, lumbar ?M51.36 - Other intervertebral disc degeneration, lumbar region (ICD-10) Anxiety, generalized ?F41.1 - Generalized anxiety disorder (ICD-10) Antisocial personality disorder ?F60.2 - Antisocial personality disorder (ICD-10) Back pain ?M54.9 - Dorsalgia, unspecified (ICD-10) Chronic pain syndrome ?G89.4 - Chronic pain syndrome (ICD-10) Nicotine dependence ?F17.200 - Nicotine dependence, unspecified, uncomplicated (ICD-10) Borderline personality disorder ?F60.3 - Borderline personality disorder (ICD-10) Asthma ?J45.909 - Unspecified asthma, uncomplicated (ICD-10) COPD (chronic obstructive pulmonary disease) ?J44.9 - Chronic obstructive pulmonary disease, unspecified (ICD-10) Diabetes mellitus type 2 in obese ?E11.69 - Type 2 diabetes mellitus with other specified complication (ICD-10) ?E66.9 - Obesity, unspecified (ICD-10) Hypertension, essential ?I10 - Essential (primary) hypertension (ICD-10) Obesity ?E66.9 - Obesity, unspecified (ICD-10) Surgical History History of total knee arthroplasty ?Z96.659 - Presence of unspecified artificial knee joint (ICD-10) History of cholecystectomy ?Z90.49 - Acquired absence of other specified parts of digestive tract (ICD- 10) Family History Father Stomach cancer Brother Heart disease Social History Narrative: Patient is a resident of [facility]. She tells me she has been smoking 2 or 3 cigarettes per day. She is attempting to quit. She does not drink alcohol. Her healthcare power of patient care provider would be her son Korey Miles, code status is full. Highest level of school completed/degree received: don't know Smoking Status: Current every day smoker What tobacco products do you use: cigarettes Smoking quit date/years: <= 15 years ago Do you use any of these nicotine containing products: None Nicotine containing products detail: quit today Second hand tobacco smoke exposure: No How often do you have a drink containing alcohol: never How often do you have six or more drinks on one occasion: Never AUDIT-C Alcohol total score: 0 Non-prescribed substance use: denies use Caffeine: Yes (coke) service: No Meds Home Medications and Allergies Home Medications Medication Instructions Recorded Confirmed Type amlodipine 5 mg tablet 5 mg PO DAILY 10/19/21 07/21/22 History aspirin 81 mg tablet,delayed 81 mg PO DAILY 10/19/21 07/21/22 History release dorzolamide 22.3 mg-timolol 6.8 1 drp ophthalmic (eye) BID 10/19/21 07/21/22 History mg/mL eye drops duloxetine 60 mg capsule,delayed 120 mg PO DAILY 10/19/21 07/21/22 History release famotidine 20 mg tablet 20 mg PO HS 10/19/21 07/21/22 History fluticasone propionate 50 2 spray intranasal DAILY 10/19/21 07/21/22 History mcg/actuation nasal spray,suspension gabapentin 600 mg tablet 600 mg PO TID 10/19/21 07/21/22 History hydrochlorothiazide 25 mg tablet 25 mg PO DAILY 10/19/21 07/21/22 History insulin aspart U-100 100 unit/mL 1 - 7 unit subcut BID@12,18 10/19/21 07/21/22 History (3 mL) subcutaneous pen insulin glargine 100 unit/mL (3 40 unit subcut HS 10/19/21 07/21/22 History mL) subcutaneous pen (Lantus Solostar U-100 Insulin) latanoprost 0.005 % eye drops 1 drp ophthalmic (eye) HS 10/19/21 07/21/22 History nicotine (polacrilex) 2 mg gum 2 mg buccal PRN 10/19/21 07/21/22 History pantoprazole 40 mg tablet,delayed 40 mg PO DAILY 10/19/21 07/21/22 History release risperidone 2 mg tablet 2 mg PO BID 10/19/21 07/21/22 History albuterol sulfate 90 mcg/actuation 1 puff inhalation DAILY PRN 03/13/22 07/21/22 History aerosol inhaler (Ventolin HFA) atorvastatin 10 mg tablet 10 mg PO HS 03/13/22 07/21/22 History carboxymethylcellulose sodium 0.5 1 drp ophthalmic (eye) TID PRN 03/13/22 07/21/22 History % eye drops in a dropperette (Lubricating Plus) cetirizine 10 mg tablet 10 mg PO DAILY PRN 03/13/22 07/21/22 History cholecalciferol (vitamin D3) 25 1,000 unit PO DAILY 03/13/22 07/21/22 History mcg (1,000 unit) tablet diclofenac sodium 1 % topical gel 2 g topical QID PRN 03/13/22 07/21/22 History epinephrine 0.3 mg/0.3 mL 0.3 mg IM PRN PRN 03/13/22 07/21/22 History injection, auto-injector hydroxyzine HCl 25 mg tablet 25 mg PO TID PRN 03/13/22 07/21/22 History nicotine 21 mg/24 hr daily 1 patch topical DAILY 03/13/22 07/21/22 History transdermal patch peg 400-propylene glycol 0.4 %-0.3 1 drp ophthalmic (eye) QID 03/13/22 07/21/22 History % eye drops (Systane Ultra) polyethylene glycol 3350 17 17 g PO DAILY 03/13/22 07/21/22 History gram/dose oral powder (Gavilax) sitagliptin phosphate 100 mg 100 mg PO DAILY 03/13/22 07/21/22 History tablet (Januvia) buprenorphine HCl 2 mg sublingual 2 mg sublingual TID 07/21/22 07/21/22 History tablet naloxone 4 mg/actuation nasal 1 spray intranasal ONCE PRN 07/21/22 07/21/22 History spray (Narcan) oxycodone 5 mg tablet 5 mg PO DAILY pain 07/21/22 07/21/22 History zolpidem 5 mg tablet 5 mg PO HS 07/21/22 07/21/22 History Allergies Allergy/AdvReac Type Severity Reaction Status Date / Time aspirin Allergy Verified 07/21/22 16:59 bee venom protein (honey bee) Allergy Verified 07/21/22 16:59 ketorolac [From Toradol] Allergy Verified 07/21/22 16:59 losartan Allergy Verified 07/21/22 16:59 NSAIDS (Non-Steroidal Allergy Verified 07/21/22 16:59 Anti-Inflamma Penicillins Allergy Verified 07/21/22 16:59 tramadol Allergy Verified 07/21/22 16:59 varenicline Allergy Verified 07/21/22 16:59 Exam Narrative: Exam Narrative: GEN: Patient is resting in bed and nontoxic in appearance, she is sleeping, does arouse intermittently to answer questions HEENT: EOMIs bilaterally, no scleral icterus CV: RRR, No concerning murmurs, rubs, or gallops R: Decreased bilateral bases, no acute wheezing Abdomen: Soft, no masses, no rebound or guarding. Patient does note discomfort with palpation in bilateral lower quadrants Ext: Abrasion over L knee, hemostatic Skin: No concerning skin lesions or rashes on exposed skin Neuro: No focal deficits on limited neurologic exam Const: Vital Signs, click to edit/add: Vital Signs - 24 hr 07/21/22 02:32 07/21/22 03:44 07/21/22 04:30 Temperature 97.0 F L 97.8 F Pulse Rate Pulse Rate [Pulse Oximeter] 113 H 105 H 106 H Respiratory Rate 14 16 14 Blood Pressure [Ri ght Upper Arm] 128/92 H 141/100 H 133/92 H Pulse Oximetry 88 96 97 Oxygen Delivery Me thod Nasal Cannula Room Air Nasal Cannula Oxygen Flow Rate 2 07/21/22 06:20 07/21/22 09:35 Temperature Pulse Rate 101 H Pulse Rate [Pulse Oximeter] 108 H Respiratory Rate 14 Blood Pressure [Ri ght Upper Arm] 131/79 Pulse Oximetry 92 Oxygen Delivery Me thod Nasal Cannula Oxygen Flow Rate 2 Hospitalist - H&P: Result Labs Labs: Short CBC 07/21/22 Range/Units 02:30 WBC 11.41 H (4.50-11.00) K/uL Hgb 13.6 (12.0-16.0) gm/dL Hct 42.7 (33.0-51.0) % Plt Count 60 L (140-440) K/uL BMP 07/21/22 07/21/22 02:30 08:31 Sodium 140 139 Potassium 4.1 3.5 L Chloride 100 101 Carbon Dioxide 28 32 BUN 18 15 Creatinine 0.9 0.6 Glucose 229 H 155 H Calcium 9.7 9.1 Assessment and Plan Assessment and plan (1) Altered mental status: Problem comment: - ddx: iatrogenic, hypercarbia, infectious process - reassuring head CT, VBG stable - follow VBGs, neuro checks Status: Acute (2) Abdominal pain: Problem comment: - given somnolence and pain, will obtain CT to evaluate - plan pending results Status: Acute (3) Sleep apnea with hypersomnolence: Problem comment: - risk for hypercarbia - RT following - supplemental oxygen as needed with goal O2 saturation of 88-90% Status: Acute (4) Nicotine dependence: Problem comment: - nicotine replacement prn Status: Acute (5) Unable to bear weight on left lower extremity: Problem comment: - therapies following - no acute findings on XR 5/ Status: Acute (6) Type 2 diabetes mellitus: Problem comment: - accuchecks, SSI when eating Status: Acute (7) Thrombocytopenia: Problem comment: - new finding - no evidence of acute bleeding, will follow Status: Acute Plan - per above - BIPAP if needed for hypercarbia - holding Lovenox given thrombocytopenia - son Korey updated by phone, questions answered
--- NOTE | 2022-07-21 13:41 | PC.NURSE ---
at the request of the hopitalist a blood sugar was done and it 145.
--- NOTE | 2022-07-21 13:45 | REH.OT ---
OT/PT evals attempted. Pt. not responsive to therapists. Will re-attempt tomorrow.
[2022-07-21 13:57] LABS: HCO3 VBG 32 mmol/L (21-28); PCO2 VBG 59 mmHG (40-50); PO2 VBG 40.1 mmHG (25-47); pH VBG 7.347 (7.32-7.43)
[2022-07-21 13:58] LABS: Lactate* 2.1 mmol/L (0.5-1.9)
[2022-07-21] MEDS: buprenorphine HCL 2 MG TAB.SUBL SL ×2 (14:49→22:04)
--- NOTE | 2022-07-21 15:49 | CRLHL7_ITS ---
For Patients: As a result of the Century Cures Act, medical imaging exams and procedure reports are released immediately into your electronic medical record. You may view this report before your referring provider. If you have questions, please contact your health care provider. INDICATION: Tachycardia, hypoxia, fever and abdominal pain. TECHNIQUE: CT chest, abdomen and pelvis acquired 99 cc of Isovue 370 IV contrast. COMPARISON: None. FINDINGS: CHEST: Cardiovascular structures: Heart size is normal. Thoracic aorta is normal in caliber. Main pulmonary artery is enlarged measuring up to 32 millimeters in diameter, which can be seen in setting of pulmonary hypertension. Mediastinum and carmen: No mass or adenopathy. Fluid distended esophagus is identified, an aspiration risk. Lungs and pleura: Reticular opacities are identified in the periphery of the right upper lobe, throughout the medial aspect of the lingula and in the bilateral lower lobes concerning for lung scarring. Chest wall and axilla: No mass or adenopathy. Bones: Old healed right lateral rib fractures. ABDOMEN AND PELVIS: Liver: Unremarkable. Gallbladder and bile ducts: Gallbladder is absent. Mild intra and extrahepatic biliary ductal dilatation. Pancreas: Unremarkable. Spleen: Unremarkable. Adrenal glands: Unremarkable. Kidneys: Unremarkable. GI tract: Scattered colonic diverticuli. No evidence of diverticulitis. Appendix is not visualized. No bowel obstruction. Vascular structures: No aortic aneurysm. Mild to moderate calcific atherosclerosis of the distal abdominal aorta and iliac vessels. Lymph nodes: Unremarkable. Miscellaneous: Unremarkable. No free air or significant free fluid. Pelvic Organs: Unremarkable. Bones: Vertebroplasty changes in the L1 vertebral body. Moderate to severe multilevel degenerative changes throughout the visualized spine. IMPRESSION: Bilateral reticular opacities likely related to lung scarring. When compared to prior radiographs this appears to be similar prior exams. No dense consolidations or significant ground-glass opacities identified. Enlarged main pulmonary artery measuring up to 32 millimeters in diameter which can be seen in setting of pulmonary hypertension. Status post cholecystectomy. Please note that all CT scans at this facility use dose modulation, iterative reconstruction, and/or weight-based dosing when appropriate to reduce radiation dose to as low as reasonably achievable. Dictated by Talib Jon MD @ 07/21/2022 6:38:12 PM (Electronically Signed)
[2022-07-21 17:17] LABS: Basophils Percent Auto 0.3 % (0.0-3.0); Eosinophils Percent Auto 0.9 % (0.0-7.0); Hematocrit 38.5 % (33.0-51.0); Hemoglobin* 12.4 gm/dL (12.0-16.0); Immature Granulocytes Pct Auto 0.9 %; Lymphocytes Percent Auto 22.4 % (20-44); Mean Corpuscular HGB Conc 32 gm/dL (32-36); Mean Corpuscular Hemoglobin 31 pg (26-34); Mean Corpuscular Volume 96 fL (80-100); Neutrophils Percent Auto 68.5 % (42.0-72.0); Platelet Count* 234 K/uL (140-440); RDW Coefficient of Variation % 13.3 % (11.5-15.5); Red Blood Count 4.03 m/uL (4.00-5.20); White Blood Count* 11.72 K/uL (4.50-11.00)
[2022-07-21 17:20] LABS: Slide Review Reflex No
[2022-07-21] MEDS: SODIUM CHLORIDE 0.9 % (FLUSH) 10 ML SYRINGE 5 ML IVF ×2 (19:31→22:04)
--- NOTE | 2022-07-21 19:33 | PC.NURSE ---
[facility], [place] Hours:[id number] Pt this shift arrived from ED on stretcher, obtunded state. Delayed responses to questions, at times would have no response. Arouses to name but quickly goes back to rest with no response. VSS on admission, 85% on room air, titrate supplemental O2 to get to 88-93% on 1-1.5L. Bilat upper lobe wheezes noted. End of shift, LS clear but diminished. Moist cough, non productive. Heavy two assist to BSC. One incontinent brief and one void in toilet with strong odor. C/o left knee pain, swollen area noted, tenderness to touch. Ice applied. During physical assessment, automobile and property underwriter found three 21mg Nicotine patches on upper back, one on L shoulder, two on R shoulder. All patches removed, skin intact, no issue. At 1500 vitals, increased tachy, HTN, and 100F oral temp. Noted irregular breathing pattern, 3 breaths then period of apnea repeated. RT notified. Taken to CT, see notes. Pt refusing meals, drank about 200cc water while on BSC. Attempt to give Ensure, pt took one sip and was not willing or able to open mouth for more.
[2022-07-22] VITALS (16 sets, daily range): BP systolic 65–152; BP diastolic 32–102; PULSE 86–117; RESP 11–35; TEMP 35.8–37.1; O2SAT 91–100
--- NOTE | 2022-07-22 06:54 | PC.NURSE ---
Shift note: turn and repo in bed throughout the night. Pt is incontinent, does not communicate with staff, except occasional yes/no response. Tachycardic, frequent periods of apnea.
[2022-07-22 07:11] LABS: HCO3 VBG 34 mmol/L (21-28); PO2 VBG 83.9 mmHG (25-47); pH VBG 7.325 (7.32-7.43)
[2022-07-22 07:21] LABS: PCO2 VBG 65 mmHG (40-50)
[2022-07-22 07:23] LABS: Basophils Absolute Auto 0.01 K/uL (0.00-0.30); Basophils Percent Auto 0.1 % (0.0-3.0); Eosinophils Absolute Auto 0.09 K/uL (0.00-0.50); Eosinophils Percent Auto 0.9 % (0.0-7.0); Hematocrit 37.7 % (33.0-51.0); Hemoglobin* 11.9 gm/dL (12.0-16.0); Immature Granulocytes Abs Auto 0.02 K/uL (0.00-0.30); Immature Granulocytes Pct Auto 0.2 %; Lymphocytes Absolute Auto 2.87 K/uL (0.90-2.90); Lymphocytes Percent Auto 28.5 % (20-44); Mean Corpuscular HGB Conc 32 gm/dL (32-36); Mean Corpuscular Hemoglobin 31 pg (26-34); Mean Corpuscular Volume 97 fL (80-100); Monocytes Percent Auto 9.9 % (0.0-11.0); Neutrophils Absolute Auto 6.07 K/uL (1.7-7.0); Neutrophils Percent Auto 60.4 % (42.0-72.0); RDW Coefficient of Variation % 13.8 % (11.5-15.5); Red Blood Count 3.87 m/uL (4.00-5.20); White Blood Count* 10.06 K/uL (4.50-11.00)
--- NOTE | 2022-07-22 07:25 | CRLHL7_ITS ---
For Patients: As a result of the Century Cures Act, medical imaging exams and procedure reports are released immediately into your electronic medical record. You may view this report before your referring provider. If you have questions, please contact your health care provider. INDICATION: Hypoxia COMPARISON: July 21, 2022 TECHNIQUE: Single-view study July 22, 2022 at 8:58 a.m. FINDINGS: TUBES AND LINES: None. HEART AND MEDIASTINUM: The heart size is normal. The mediastinal contour appears normal for patient age. LUNGS AND PLEURAL SPACES: Given low lung volumes, the lungs appear to be clear.The pleural spaces are unremarkable. OSSEOUS STRUCTURES: Age-appropriate appearance. No acute focal finding. IMPRESSION: Given low lung volumes, the lungs appear to be clear. No definite acute focal finding. Dictated by Tayo Dumont MD @ 07/22/2022 9:17:24 AM (Electronically Signed)
[2022-07-22 07:28] LABS: Albumin* 3.9 g/dL (3.3-5.0); Chloride* 102 mmol/L (96-114)
[2022-07-22 07:29] LABS: Potassium* 3.9 mmol/L (3.6-5.1); Sodium* 141 mmol/L (135-149)
--- NOTE | 2022-07-22 07:30 | CRLHL7_ITS ---
For Patients: As a result of the Century Cures Act, medical imaging exams and procedure reports are released immediately into your electronic medical record. You may view this report before your referring provider. If you have questions, please contact your health care provider. INDICATION: Altered mental status COMPARISON: July 21, 2022 TECHNIQUE: CT examination of the head was performed as axial sections without intravenous contrast. Images were obtained from the vertex of the skull through the skull base. Please note that all CT scans at this facility use dose modulation, iterative reconstruction, and/or weight-based dosing when appropriate to reduce radiation dose to as low as reasonably achievable. FINDINGS: The brain shows no sign of mass lesion, mass effect, hemorrhage, or edema. There are involutional changes. There is moderate cortical atrophy and there is moderate to severe white matter disease. There is no hydrocephalus. The visualized portions of the orbits are normal in appearance. The osseous structures are normal in appearance with no sign of abnormality in the skull base or calvarium. IMPRESSION: Involutional changes. No acute focal finding. No substantial change compared to July 21, 20[address] Please note that all [address] scans at this facility use dose modulation, iterative reconstruction, and/or weight-based dosing when appropriate to reduce radiation dose to as low as reasonably achievable. Dictated by Tayo Dumont MD @ 07/22/2022 9:11:08 AM (Electronically Signed)
[2022-07-22 07:31] LABS: Bilirubin Total* 1.5 mg/dL (0.1-1.5); Creatinine* 0.5 mg/dL (0.5-1.5); Estimated Glomerular Filt Rate 101 ml/min
[2022-07-22 07:32] LABS: Alanine Aminotransferase* 37 U/L (4-35); Aspartate Amino Transferase* 87 U/L (12-35); Blood Urea Nitrogen* 12 mg/dL (7-30); Calcium* 9.3 mg/dL (8.4-10.6); Carbon Dioxide* 35 mmol/L (20-32); Glucose* 158 mg/dL (60-115); Total Protein* 7.2 g/dL (6.0-8.3)
[2022-07-22 07:35] LABS: C Reactive Protein* 2.4 mg/dL (0.5-1.0)
[2022-07-22 07:41] LABS: Alkaline Phosphatase* 65 U/L (40-150)
[2022-07-22 07:44] LABS: Troponin I* 0.02 ng/mL (0.01-0.04)
[2022-07-22 08:12] LABS: Platelet Count* 230 K/uL (140-440)
[2022-07-22 08:13] LABS: Slide Review Reflex No
--- NOTE | 2022-07-22 09:00 | REH.OT ---
OT/PT: Per MD in rounds, OT/PT to hold today due to medical status.
[2022-07-22] MEDS: buprenorphine HCL 2 MG TAB.SUBL SL (09:22)
--- NOTE | 2022-07-22 10:09 | CRLHL7_ITS ---
For Patients: As a result of the Century Cures Act, medical imaging exams and procedure reports are released immediately into your electronic medical record. You may view this report before your referring provider. If you have questions, please contact your health care provider. INDICATION: Central line placement COMPARISON: Earlier July 22, 2022 at 8:58 a.m. TECHNIQUE: Single-view study July 22, 2022 at 10:26 a.m. FINDINGS: TUBES AND LINES: Right IJ catheter ending in the SVC HEART AND MEDIASTINUM: The heart size is normal. The mediastinal contour appears normal for patient age. LUNGS AND PLEURAL SPACES: Prominent lung markings bilaterally. This may be due to poor inspiratory effort though a developing interstitial process such as edema is possible. No pleural effusion or pneumothorax OSSEOUS STRUCTURES: Age-appropriate appearance. No acute focal finding. IMPRESSION: Right IJ catheter normally located. No pneumothorax. Prominent lung markings bilaterally. This may be due to poor inspiratory effort though a developing interstitial process such as edema is possible. Dictated by Tayo Dumont MD @ 07/22/2022 10:49:01 AM (Electronically Signed)
--- NOTE | 2022-07-22 10:15 | PM.GSPN ---
Subjective Subjective Date Seen: 07/22/22 Exam Const: Vital Signs, click to edit/add: Vital Signs - 24 hr 07/21/22 11:00 07/21/22 14:45 07/21/22 15:00 Temperature Pulse Rate Pulse Rate [Right Pulse Oximeter] 107 H 111 H Respiratory Rate 12 18 12 Blood Pressure [Le ft Radial Artery] 116/83 Pulse Oximetry 94 91 Oxygen Delivery Me thod Nasal Cannula Nasal Cannula Oxygen Flow Rate 1 3 Fraction of Inspir ed Oxygen 07/21/22 15:00 07/21/22 15:00 07/21/22 15:00 Temperature 100 F H Pulse Rate 113 H Pulse Rate [Right Pulse Oximeter] 122 H Respiratory Rate 12 12 Blood Pressure [Le ft Radial Artery] 160/92 H Pulse Oximetry 92 92 Oxygen Delivery Me thod Nasal Cannula Nasal Cannula Oxygen Flow Rate 1.5 1.5 Fraction of Inspir ed Oxygen 07/21/22 17:36 07/21/22 19:56 07/21/22 23:00 Temperature 97 F L Pulse Rate 104 H Pulse Rate [Right Pulse Oximeter] 115 H Respiratory Rate 12 Blood Pressure [Le ft Radial Artery] 154/71 H Pulse Oximetry 88 92 Oxygen Delivery Me thod Nasal Cannula Oxygen Flow Rate 1.5 Fraction of Inspir ed Oxygen 07/21/22 23:00 07/21/22 23:00 07/22/22 00:24 Temperature 96.5 F L Pulse Rate Pulse Rate [Right Pulse Oximeter] 109 H 109 H Respiratory Rate 12 12 12 Blood Pressure [Le ft Radial Artery] 140/68 H Pulse Oximetry 91 91 Oxygen Delivery Me thod Nasal Cannula Nasal Cannula Oxygen Flow Rate 1.5 1.5 Fraction of Inspir ed Oxygen 07/22/22 01:00 07/22/22 04:00 07/22/22 07:00 Temperature 97.8 F Pulse Rate 109 H Pulse Rate [Right Pulse Oximeter] 114 H Respiratory Rate 11 L Blood Pressure [Le ft Radial Artery] 137/102 H Pulse Oximetry 91 Oxygen Delivery Me thod Oxygen Flow Rate Fraction of Inspir ed Oxygen 07/22/22 07:47 07/22/22 07:52 07/22/22 07:52 Temperature 98.7 F Pulse Rate Pulse Rate [Right Pulse Oximeter] 117 H 117 H Respiratory Rate 12 12 12 Blood Pressure [Le ft Radial Artery] 145/85 H Pulse Oximetry 96 96 Oxygen Delivery Me thod BiPAP BiPAP Oxygen Flow Rate Fraction of Inspir ed Oxygen 30 07/22/22 08:19 07/22/22 08:43 Temperature Pulse Rate Pulse Rate [Right Pulse Oximeter] Respiratory Rate Blood Pressure [Le ft Radial Artery] Pulse Oximetry 94 Oxygen Delivery Me thod Oxygen Flow Rate Fraction of Inspir ed Oxygen 0.25 General Surgery Procedures Central Line Placement Right IJ: Time out performed: Yes Patient placed on monitor/pulse ox: Yes MD prep: mask, gown and gloves Central line prep: Chlorhexidine scrub Local anesthesia used: lidocaine 1% Amount of anesthesia used (ml): 4 Central line lumen inserted: triple Central line placement: non-tunnelled Image guidance used: US guidance Post procedure: sutured in place, good blood return, all ports aspirated, flushed, capped and sterile dressing applied Patient tolerated procedure: well Thoracentesis Patient Tolerated Procedure: well
[2022-07-22] MEDS: HEPARIN 500 UNIT/5 ML SYRINGE IVF ×2 (12:35→13:13)
[2022-07-22] MEDS: SODIUM CHLORIDE 0.9 % (FLUSH) 10 ML SYRINGE 5 ML IVF (12:36)
[2022-07-22] MEDS: METOPROLOL TARTRATE 1 MG/ML inj 5 MG IVP (13:20)
[2022-07-22 13:25] LABS: HCO3 VBG 31 mmol/L (21-28); PO2 VBG 42.4 mmHG (25-47); pH VBG 7.308 (7.32-7.43)
[2022-07-22 13:34] LABS: PCO2 VBG 63 mmHG (40-50)
[2022-07-22] MEDS: ERTAPENEM 1 GM in 0.9 % SODIUM CHLORIDE Mini-bag 100 ML IVPB (14:44)
[2022-07-22] MEDS: 0.9 % SODIUM CHLORIDE 500 ML 500 ML IV (14:44)
--- NOTE | 2022-07-22 15:34 | PM.IMPN1 ---
Progress Note: A&P Assessment and plan (1) Encephalopathy: Problem details: - Source unclear. Ddx: iatrogenic, hypercarbia, infectious process, withdrawal, seizure - No history of significant alcohol withdrawal per chart review, symptoms not consistent with this - reassuring head CT (x2), VBG reveals elevated CO2 with normal pH, normal CBC, normal ammonia, elevated lactate (2-->4) - per staff at [facility], no concern of overdose or inappropriate medication use prior to ER visit - IV fluids, empiric ertapenem - intubated 07/22 Status: Acute (2) Abdominal pain: Problem details: - no acute findings on CT 07/21 Status: Acute (3) Sleep apnea with hypersomnolence: Problem details: - BiPAP initiated 07/22 Status: Acute (4) Nicotine dependence: Problem details: - nicotine replacement prn Status: Acute (5) Unable to bear weight on left lower extremity: Problem details: - therapies following - no acute findings on XR 07/21 Status: Acute (6) Type 2 diabetes mellitus: Problem details: - accuchecks remained stable Status: Acute Plan - to [facility] for specialty care - son Korey updated ([phone]) Subjective Date Seen: 07/22/22 Interval history: Patient remains obtunded with minimal interaction. Elevated CO2 on VBG with poor respiratory drive, BiPAP initiated. Intermittently tachycardic, afebrile. Throughout the day, patient's respiratory status continued to decline with obtundation. Narcan administered this afternoon with agitation for approximately 20 minutes, then patient became obtunded again. Called [facility] to review with [facility] Facilitator and hospitalist; during these conversations patient continued to decline and did not respond to increased doses of Narcan. She was noted to have intermittent tremors that improved with administration of Versed. Given patient's continued worsening status, ER physician (Anderson) consulted for intubation - see nurse's notes for details. Exam Narrative: Exam Narrative: GEN: Laying in bed, mildly arousable with sternal rub HEENT: EOMIs bilaterally, no scleral icterus CV: RRR, No concerning murmurs, heart sounds distant R: No wheezing, decreased bilateral bases Ext: 2+ edema bilateral lower extremities Skin: Abrasion on left knee is stable without signs or symptoms of infection Const: Vital Signs, click to edit/add: Vital Signs - 24 hr 07/21/22 17:36 07/21/22 19:56 07/21/22 23:00 Temperature 97 F L Pulse Rate 104 H Pulse Rate [Right Pulse Oximeter] 115 H Respiratory Rate 12 Blood Pressure [Le ft Radial Artery] 154/71 H Pulse Oximetry 88 92 Oxygen Delivery Me thod Nasal Cannula Oxygen Flow Rate 1.5 Fraction of Inspir ed Oxygen 07/21/22 23:00 07/21/22 23:00 07/22/22 00:24 Temperature 96.5 F L Pulse Rate Pulse Rate [Right Pulse Oximeter] 109 H 109 H Respiratory Rate 12 12 12 Blood Pressure [Le ft Radial Artery] 140/68 H Pulse Oximetry 91 91 Oxygen Delivery Me thod Nasal Cannula Nasal Cannula Oxygen Flow Rate 1.5 1.5 Fraction of Inspir ed Oxygen 07/22/22 01:00 07/22/22 04:00 07/22/22 07:00 Temperature 97.8 F Pulse Rate 109 H Pulse Rate [Right Pulse Oximeter] 114 H Respiratory Rate 11 L Blood Pressure [Le ft Radial Artery] 137/102 H Pulse Oximetry 91 Oxygen Delivery Me thod Oxygen Flow Rate Fraction of Inspir ed Oxygen 07/22/22 07:47 07/22/22 07:52 07/22/22 07:52 Temperature 98.7 F Pulse Rate Pulse Rate [Right Pulse Oximeter] 117 H 117 H Respiratory Rate 12 12 12 Blood Pressure [Le ft Radial Artery] 145/85 H Pulse Oximetry 96 96 Oxygen Delivery Me thod BiPAP BiPAP Oxygen Flow Rate Fraction of Inspir ed Oxygen 30 07/22/22 08:19 07/22/22 08:43 07/22/22 11:00 Temperature 97.8 F Pulse Rate Pulse Rate [Right Pulse Oximeter] 111 H Respiratory Rate 13 Blood Pressure [Le ft Radial Artery] 152/90 H Pulse Oximetry 94 94 Oxygen Delivery Me thod BiPAP Oxygen Flow Rate Fraction of Inspir ed Oxygen 0.25 07/22/22 15:00 07/22/22 15:00 07/22/22 15:00 Temperature 97.5 F L Pulse Rate Pulse Rate [Right Pulse Oximeter] 112 H 112 H Respiratory Rate 14 Blood Pressure [Le ft Radial Artery] 150/97 H Pulse Oximetry 100 100 Oxygen Delivery Me thod BiPAP BiPAP Oxygen Flow Rate Fraction of Inspir ed Oxygen 21 Labs Labs: Laboratory Results - last 24 hr 07/21/22 07/22/22 07/22/22 08:31 06:00 06:50 WBC 11.72 H 10.06 RBC 4.03 3.87 L Hgb 12.4 11.9 L Hct 38.5 37.7 MCV 96 97 MCH 31 31 MCHC 32 32 RDW Coeff of Rosa 13.3 13.8 Plt Count 234 230 Neut % (Auto) 68.5 60.4 Lymph % (Auto) 22.4 28.5 [place] % (Auto) 7.0 9.9 Eos % (Auto) 0.9 0.9 Baso % (Auto) 0.3 0.1 Neut # (Auto) 8.00 H 6.07 Lymph # (Auto) 2.60 2.87 [place] # (Auto) 0.80 1.00 H Eos # (Auto) 0.10 0.09 Baso # (Auto) 0.00 0.01 VBG pH 7.325 VBG pCO2 65 H* VBG pO2 83.9 H VBG HCO3 34 H Sodium 141 Potassium 3.9 Chloride 102 Carbon Dioxide 35 H BUN 12 Creatinine 0.5 Estimated Creat Clear 47.10 Estimated GFR 101 Glucose 158 H Lactate 4.0 H Calcium 9.3 Total Bilirubin 1.5 AST 87 H ALT 37 H Alkaline Phosphatase 65 Ammonia Troponin I 0.02 C-Reactive Protein 2.4 H Total Protein 7.2 Albumin 3.9 07/22/22 07/22/22 10:36 13:15 WBC RBC Hgb Hct MCV MCH MCHC RDW Coeff of Rosa Plt Count Neut % (Auto) Lymph % (Auto) [place] % (Auto) Eos % (Auto) Baso % (Auto) Neut # (Auto) Lymph # (Auto) [place] # (Auto) Eos # (Auto) Baso # (Auto) VBG pH 7.308 L VBG pCO2 63 H* VBG pO2 42.4 VBG HCO3 31 H Sodium Potassium Chloride Carbon Dioxide BUN Creatinine Estimated Creat Clear Estimated GFR Glucose Lactate Calcium Total Bilirubin AST ALT Alkaline Phosphatase Ammonia 15.0 Troponin I C-Reactive Protein Total Protein Albumin
[2022-07-22] MEDS: LORazepam 2 MG/ML inj 1 MG IVP (16:02)
[2022-07-22] MEDS: MIDAZOLAM HCL 1 MG/ML inj 2 MG IVP (16:10)
[2022-07-22] MEDS: ETOMIDATE 2 MG/ML inj 30 MG IVP (16:16)
[2022-07-22] MEDS: SUCCINYLCHOLINE 20 MG/ML INJ 150 MG IVP (16:16)
[2022-07-22] MEDS: propofoL 1,000 MG/100 ML ML 30.53 MG IVPB (16:18)
--- NOTE | 2022-07-22 16:19 | CRLHL7_ITS ---
For Patients: As a result of the Century Cures Act, medical imaging exams and procedure reports are released immediately into your electronic medical record. You may view this report before your referring provider. If you have questions, please contact your health care provider. INDICATION: Post intubation. TECHNIQUE: Chest 1 view. COMPARISON: None. FINDINGS: Cardiovascular and mediastinum: Cardiomediastinal silhouette is within normal limits. Calcific atherosclerosis of the aorta. ET tube is identified. The initial image demonstrates right mainstem bronchus intubation. The post adjustment image demonstrates the ET tube terminating approximately 3 millimeters above the ralph and still slightly angulated toward the right. Right-sided central venous catheter with distal tip terminating at the proximal SVC. Lungs and pleural spaces: Possible retrocardiac consolidation may represent atelectasis, aspiration or infection. No evidence of pleural effusion. No pneumothorax identified. Bones and soft tissues: Unremarkable. IMPRESSION: Post adjustment ETT terminates approximately 3 centimeters above the ralph. Consider retraction by 3 centimeters for optimal positioning. Dictated by Talib Jon MD @ 07/22/2022 5:20:27 PM (Electronically Signed)
[2022-07-22] MEDS: fentaNYL 100 MCG/2 ML inj IVP ×4 (16:21→17:39)
[2022-07-22] MEDS: PROPOFOL 10 MG/ML INJ 70 MG IVP (16:31)
[2022-07-22] MEDS: 0.9 % SODIUM CHLORIDE 1000 ml 1,000 ML IV (16:43)
[2022-07-22 16:57] LABS: HCO3 VBG 31 mmol/L (21-28); Lactate* 1.7 mmol/L (0.5-1.9); PCO2 VBG 53 mmHG (40-50); PO2 VBG 52.8 mmHG (25-47); pH VBG 7.382 (7.32-7.43)
[2022-07-22 16:59] LABS: Basophils Absolute Auto 0.01 K/uL (0.00-0.30); Basophils Percent Auto 0.1 % (0.0-3.0); Eosinophils Absolute Auto 0.02 K/uL (0.00-0.50); Eosinophils Percent Auto 0.2 % (0.0-7.0); Hematocrit 32.9 % (33.0-51.0); Hemoglobin* 10.4 gm/dL (12.0-16.0); Immature Granulocytes Abs Auto 0.02 K/uL (0.00-0.30); Immature Granulocytes Pct Auto 0.2 %; Lymphocytes Absolute Auto 1.75 K/uL (0.90-2.90); Lymphocytes Percent Auto 20.1 % (20-44); Mean Corpuscular HGB Conc 32 gm/dL (32-36); Mean Corpuscular Hemoglobin 31 pg (26-34); Mean Corpuscular Volume 98 fL (80-100); Monocytes Percent Auto 8.6 % (0.0-11.0); Neutrophils Absolute Auto 6.14 K/uL (1.7-7.0); Neutrophils Percent Auto 70.8 % (42.0-72.0); Platelet Count* 225 K/uL (140-440); RDW Coefficient of Variation % 13.8 % (11.5-15.5); Red Blood Count 3.36 m/uL (4.00-5.20); White Blood Count* 8.69 K/uL (4.50-11.00)
--- NOTE | 2022-07-22 17:09 | RESP.RT ---
Patient on Bipap with decline. Patient with no spontaneous respirations, Bipap dependent. MD notified proceeded with intubation with assist. Intubation without incident, bilateral breath sounds post intubation with ETT tube placement at 24 cm at teeth, pulled back to 21cm at teeth. Patient placed on vent. See flowsheet for settings.
[2022-07-22 17:22] LABS: Albumin* 3.3 g/dL (3.3-5.0); Chloride* 106 mmol/L (96-114); Sodium* 142 mmol/L (135-149)
[2022-07-22 17:25] LABS: Alanine Aminotransferase* 32 U/L (4-35); Alkaline Phosphatase* 58 U/L (40-150); Aspartate Amino Transferase* 77 U/L (12-35); Bilirubin Direct* 0.7 mg/dL (0.0-0.5); Bilirubin Total* 1.5 mg/dL (0.1-1.5); Blood Urea Nitrogen* 13 mg/dL (7-30); Calcium* 8.6 mg/dL (8.4-10.6); Carbon Dioxide* 34 mmol/L (20-32); Creatinine* 0.7 mg/dL (0.5-1.5); Estimated Glomerular Filt Rate 93 ml/min; Glucose* 134 mg/dL (60-115); Total Protein* 6.4 g/dL (6.0-8.3)
[2022-07-22 18:14] LABS: ABG PCO2 50 mmHG (35-45); Base Excess ABG 4.1 mmol/L (-3.0-3.0); Carboxyhemoglobin* 1.5 % (0.0-5.0); HCO3 ABG 30 mmol/L (21-28); Oxygen Saturation ABG 77 % (92-100); PO2 ABG 40.9 mmHG (80-105); TCO2 ABG 28 mmol/l (21-30); pH ABG 7.38 (7.35-7.45)
[2022-07-22 18:26] LABS: Thyroid Stimulating Hormone* 0.321 uIU/mL (0.270-4.20)
--- NOTE | 2022-07-22 19:21 | PC.NURSE ---
Shift Summary: Patient able to answer yes/no at start of shift, Was initially placed on 2L/NC however labs showed increased pCO2 so patient was placed on BiPAP and tolerated well. New central line placed. Became more lethargic throughout morning, given Narcan x1 with some effect, patient seen trying to get out of bed shortly after. This afternoon around 1530 patient noted to be more lethargic again, noted BiPAP was breathing for her, RT in room and MD updated, ordered Narcan x2 with little effect, process to get patient intubated started. Patient intubated @1617. [place] placed @ 1702. Patient monitored throughout process, pharmacist in room to adjust drips as needed. Nurse to nurse report given to MARLENE Kaufman. Patient transferred to [place] via EMS @ 4230.
[2022-07-24 14:23] LABS: Slide Review Reflex No
== END 2022-07-22 18:55 | disposition short-term general hospital (02) | DRG 52 ==
LOC: ED 07:18 → MEDSURG 08:00
PROVIDERS: Hospitalist; Admitting Provider Family Medicine; Emergency Provider Family Medicine; Visit Provider Family Medicine
DX: G93.40 Encephalopathy, unspecified (principal); G47.10 Hypersomnia, unspecified; D69.6 Thrombocytopenia, unspecified; G47.30 Sleep apnea, unspecified; S80.02XA Contusion of left knee, initial encounter; R53.81 Other malaise; F60.3 Borderline personality disorder; F41.1 Generalized anxiety disorder; F60.2 Antisocial personality disorder; J44.9 Chronic obstructive pulmonary disease, unspecified; J45.909 Unspecified asthma, uncomplicated; I11.0 Hypertensive heart disease with heart failure; I50.9 Heart failure, unspecified; R10.9 Unspecified abdominal pain; F17.220 Nicotine dependence, chewing tobacco, uncomplicated; K76.0 Fatty (change of) liver, not elsewhere classified; E66.9 Obesity, unspecified; Z79.4 Long term (current) use of insulin; Z79.891 Long term (current) use of opiate analgesic; G89.4 Chronic pain syndrome; M51.36 Other intervertebral disc degeneration, lumbar region; M54.9 Dorsalgia, unspecified; F17.210 Nicotine dependence, cigarettes, uncomplicated; Z96.659 Presence of unspecified artificial knee joint; R25.1 Tremor, unspecified; Z68.37 Body mass index [BMI] 37.0-37.9, adult
CPT/HCPCS: 36415; 36556; 36600; 51702; 70450; 71045; 71260; 72125; 73562; 74177; 80048; 80053; 80076; 80306; 81003; 82077; 82140; 82803; 82962; 83036; 83605; 83615; 84443; 84484; 85025; 86140; 87040; 87081; 87086; 93005; 94660; 94761; 99285; 99291; J0571; J0330; J1335; J1642; J1953; J2060; J2250; J2310; J2704; J3010; J7030; J7120; Q9967

== ENCOUNTER 2022-07-21 15:15 | Outpatient (CLI) | payer BC, SELFPAY | END 2022-07-21 15:16 | disposition home or self-care (01) | LOC: AMB 15:18 | PROVIDERS: Visit Provider Family Medicine | DX: R41.82 Altered mental status, unspecified (principal) | CPT/HCPCS: A0425; A0427 ==

== ENCOUNTER 2022-07-22 18:25 | Outpatient (CLI) | payer BC, SELFPAY | END 2022-07-22 18:26 | disposition home or self-care (01) | LOC: AMB 07-26 15:59 | PROVIDERS: Visit Provider Family Medicine | DX: R41.82 Altered mental status, unspecified (principal) | CPT/HCPCS: A0425; A0434 ==

== ENCOUNTER 2022-09-24 09:02 | Emergency (ER) | payer BC, SELFPAY ==
[2022-09-24 09:09] VITALS: BP 132/88; PULSE 99; RESP 18; TEMP 36.6; O2SAT 99; BMI 38.3
--- NOTE | 2022-09-24 09:23 | ED_ITS ---
HPI - Extremity Injury (Upper) General Time Seen by Provider: 09:24 Date Seen: 09/24/22 Chief Complaint: Extremity Pain/Injury, Upper Stated Complaint: Fall, R wrist injury Time Seen by Provider: 09/24/22 09:23 Source: patient and RN notes reviewed Mode of arrival: ambulatory Limitations: no limitations History of Present Illness HPI narrative: Patient is a 72-year-old female coming in with complaint of right wrist pain after fall. She tripped walking with her walker. She denies pain elsewhere. She did not hit her head, no neck pain, no back pain, no chest pain or chest wall pain. She had a simple trip, states she did not hit her head, no neck or back pain. She has no chest pain, no difficulty breathing. Denies complaints in other extremities. Denies any numbness tingling anywhere. She has fractured her right wrist before per her report. MD complaint: injury to: right and wrist Related Data Home Medications Medication Instructions Recorded Confirmed amlodipine 5 mg tablet 5 mg PO DAILY 10/19/21 08/15/22 aspirin 81 mg tablet,delayed 81 mg PO DAILY 10/19/21 08/15/22 release dorzolamide 22.3 mg-timolol 6.8 1 drp ophthalmic (eye) BID 10/19/21 08/15/22 mg/mL eye drops duloxetine 60 mg capsule,delayed 120 mg PO DAILY 10/19/21 08/15/22 release famotidine 20 mg tablet 20 mg PO HS 10/19/21 08/15/22 fluticasone propionate 50 2 spray intranasal DAILY 10/19/21 08/15/22 mcg/actuation nasal spray,suspension gabapentin 600 mg tablet 600 mg PO TID 10/19/21 07/21/22 hydrochlorothiazide 25 mg tablet 25 mg PO DAILY 10/19/21 08/15/22 insulin aspart U-100 100 unit/mL 1 - 7 unit subcut BID@12,18 10/19/21 07/21/22 (3 mL) subcutaneous pen insulin glargine 100 unit/mL (3 40 unit subcut HS 10/19/21 08/15/22 mL) subcutaneous pen (Lantus Solostar U-100 Insulin) latanoprost 0.005 % eye drops 1 drp ophthalmic (eye) HS 10/19/21 08/15/22 nicotine (polacrilex) 2 mg gum 2 mg buccal PRN 10/19/21 07/21/22 pantoprazole 40 mg tablet,delayed 40 mg PO DAILY 10/19/21 08/15/22 release risperidone 2 mg tablet 2 mg PO BID 10/19/21 08/15/22 albuterol sulfate 90 mcg/actuation 1 puff inhalation DAILY PRN 03/13/22 07/21/22 aerosol inhaler (Ventolin HFA) atorvastatin 10 mg tablet 10 mg PO HS 03/13/22 08/15/22 carboxymethylcellulose sodium 0.5 1 drp ophthalmic (eye) TID PRN 03/13/22 07/21/22 % eye drops in a dropperette (Lubricating Plus) cetirizine 10 mg tablet 10 mg PO DAILY PRN 03/13/22 07/21/22 cholecalciferol (vitamin D3) 25 1,000 unit PO DAILY 03/13/22 07/21/22 mcg (1,000 unit) tablet diclofenac sodium 1 % topical gel 2 g topical QID PRN 03/13/22 08/15/22 epinephrine 0.3 mg/0.3 mL 0.3 mg IM PRN PRN 03/13/22 08/15/22 injection, auto-injector hydroxyzine HCl 25 mg tablet 25 mg PO TID PRN 03/13/22 07/21/22 nicotine 21 mg/24 hr daily 1 patch topical DAILY 03/13/22 07/21/22 transdermal patch peg 400-propylene glycol 0.4 %-0.3 1 drp ophthalmic (eye) QID 03/13/22 08/15/22 % eye drops (Systane Ultra) polyethylene glycol 3350 17 17 g PO DAILY 03/13/22 07/21/22 gram/dose oral powder (Gavilax) sitagliptin phosphate 100 mg 100 mg PO DAILY 03/13/22 08/15/22 tablet (Januvia) buprenorphine HCl 2 mg sublingual 2 mg sublingual TID 07/21/22 07/21/22 tablet naloxone 4 mg/actuation nasal 1 spray intranasal ONCE PRN 07/21/22 07/21/22 spray (Narcan) oxycodone 5 mg tablet 5 mg PO DAILY pain 07/21/22 07/21/22 zolpidem 5 mg tablet 5 mg PO HS 07/21/22 07/21/22 Previous Rx's Medication Instructions Recorded acetaminophen 500 mg tablet 1,000 mg (2 x 500 mg) PO TID #180 03/16/22 tabs magnesium oxide 400 mg (241.3 mg 400 mg PO BID #60 tabs 03/16/22 magnesium) tablet potassium chloride 10 mEq 10 meq PO BIDWM #60 caps 03/16/22 capsule,extended release torsemide 20 mg tablet 20 mg PO DAILY@0800 #30 tabs 03/16/22 Allergies Allergy/AdvReac Type Severity Reaction Status Date / Time aspirin Allergy Verified 07/21/22 16:59 bee venom protein (honey bee) Allergy Verified 07/21/22 16:59 ketorolac [From Toradol] Allergy Verified 07/21/22 16:59 losartan Allergy Verified 07/21/22 16:59 NSAIDS (Non-Steroidal Allergy Verified 07/21/22 16:59 Anti-Inflamma Penicillins Allergy Verified 07/21/22 16:59 tramadol Allergy Verified 07/21/22 16:59 varenicline Allergy Verified 07/21/22 16:59 Review of Systems Narrative: As per HPI [facility] Medical History Type 2 diabetes mellitus ?E11.9 - Type 2 diabetes mellitus without complications (ICD-10) Sleep apnea with hypersomnolence ?G47.10 - Hypersomnia, unspecified (ICD-10) ?G47.30 - Sleep apnea, unspecified (ICD-10) Hepatic steatosis ?K76.0 - Fatty (change of) liver, not elsewhere classified (ICD-10) Physical deconditioning ?R53.81 - Other malaise (ICD-10) Polypharmacy ?Z79.899 - Other log brander (current) drug therapy (ICD-10) Chronic, continuous use of opioids ?F11.90 - Opioid use, unspecified, uncomplicated (ICD-10) Heart failure ?I50.9 - Heart failure, unspecified (ICD-10) Osteoarthritis ?M19.90 - Unspecified osteoarthritis, unspecified site (ICD-10) Degenerative disc disease, lumbar ?M51.36 - Other intervertebral disc degeneration, lumbar region (ICD-10) Anxiety, generalized ?F41.1 - Generalized anxiety disorder (ICD-10) Antisocial personality disorder ?F60.2 - Antisocial personality disorder (ICD-10) Back pain ?M54.9 - Dorsalgia, unspecified (ICD-10) Chronic pain syndrome ?G89.4 - Chronic pain syndrome (ICD-10) Nicotine dependence ?F17.200 - Nicotine dependence, unspecified, uncomplicated (ICD-10) Borderline personality disorder ?F60.3 - Borderline personality disorder (ICD-10) Asthma ?J45.909 - Unspecified asthma, uncomplicated (ICD-10) COPD (chronic obstructive pulmonary disease) ?J44.9 - Chronic obstructive pulmonary disease, unspecified (ICD-10) Diabetes mellitus type 2 in obese ?E11.69 - Type 2 diabetes mellitus with other specified complication (ICD-10) ?E66.9 - Obesity, unspecified (ICD-10) Hypertension, essential ?I10 - Essential (primary) hypertension (ICD-10) Obesity ?E66.9 - Obesity, unspecified (ICD-10) Surgical History History of total knee arthroplasty ?Z96.659 - Presence of unspecified artificial knee joint (ICD-10) History of cholecystectomy ?Z90.49 - Acquired absence of other specified parts of digestive tract (ICD- 10) Family History Father Stomach cancer Brother Heart disease Social History Narrative: Patient is a resident of [facility]. She tells me she has been smoking 2 or 3 cigarettes per day. She is attempting to quit. She does not drink alcohol. Her healthcare power of manufacturing team leader would be her son Korey Miles, code status is full. Highest level of school completed/degree received: don't know Smoking Status: Former smoker What tobacco products do you use: cigarettes Smoking quit date/years: <= 15 years ago Do you use any of these nicotine containing products: None Nicotine containing products detail: quit today Second hand tobacco smoke exposure: No How often do you have a drink containing alcohol: never How often do you have six or more drinks on one occasion: Never AUDIT-C Alcohol total score: 0 Non-prescribed substance use: denies use Caffeine: Yes (coke) service: No Exam Const: Vital Signs, click to edit/add: Vital Signs - 24 hr 09/24/22 09:09 Temperature 97.9 F Pulse Rate [Right Pulse Oximeter] 99 Respiratory Rate 18 Blood Pressure [Ri ght Upper Arm] 132/88 Pulse Oximetry 99 Oxygen Delivery Me thod Room Air Patient is alert, sitting up on the edge of the bed. Lungs are clear, CV regular rate rhythm. Denies any chest pain on palpation, no pain on palpation of her left upper extremity. Has no pain over the right shoulder forearm elbow arm but in the wrist area she complains of pain distally along the radius. No snuffbox tenderness. The right wrist area is not edematous but seems thicker when I compared to the left. Has normal sensation distally, is able to move her fingers. No open wounds seen. Documenting provider has reviewed patient's vital signs: yes Course Course Hospital Course: Will obtain right wrist films to rule out fracture. Patient will let us know if she has any other complaints in the interim. Reevaluation(s) Time of Reevaluation #1: 11:01 Reevaluation #1: Is reviewed with patient she has a lot of chronic changes on her wrist, they do see a fracture line but think it is old, probably corresponds to her reported history of a fracture in this wrist before. She is feeling better with the wrist splint on. Will have her keep this on and follow up with Orthopedics in 7-10 days for re-evaluation to ensure she does not need longer immobilization. Vital Signs Vital signs: Initial Vital Signs Temperature 97.9 F 09/24/22 09:09 Temperature Source Temporal Artery Scan 09/24/22 09:09 Pulse Rate 99 09/24/22 09:09 Respiratory Rate 18 09/24/22 09:09 Blood Pressure 132/88 09/24/22 09:09 Blood Pressure Mean 102 09/24/22 09:09 Blood Pressure Position Sitting 09/24/22 09:09 Pulse Oximetry 99 09/24/22 09:09 Oxygen Delivery Method Room Air 09/24/22 09:09 Vital Signs Temperature 97.9 F 09/24/22 09:09 Pulse Rate 99 09/24/22 09:09 Respiratory Rate 18 09/24/22 09:09 Blood Pressure 132/88 09/24/22 09:09 Pulse Oximetry 99 09/24/22 09:09 Oxygen Delivery Method Room Air 09/24/22 09:09 Temperature 97.9 F 09/24/22 09:09 Pulse Rate 99 09/24/22 09:09 Respiratory Rate 18 09/24/22 09:09 Blood Pressure 132/88 09/24/22 09:09 Pulse Oximetry 99 09/24/22 09:09 Oxygen Delivery Method Room Air 09/24/22 09:09 MDM - Extremity Injury (Upper) Imaging Data Xray right wrist: Attestation: I have reviewed the pertinent imaging results. Radiologist's impression: Patient: EMILEE GALVEZ Facility:?[facility] Patient ID:?[id number] Site Patient ID:?[id number]. Site :?[id number] Study:?XRay Extremity Right WRIST-09/24/2022 9:58:44 AM Ordering Physician:Medhat Marroquin Final Report: Indication: Fall Technique: Three views of the right wrist were acquired Comparison: None Findings: Significant arthritic change involving the carpi especially on the ulnar side. 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 There is also pseudoarthrosis between the aberrant osseous structure and the distal radius at the presumptive distal radial ulnar joint. There is a longitudinally oriented fracture of the distal radius though it is probably chemistry specialist holland. Without prior imaging, is difficult to ascertain any acute finding. My impression is that this is all chronic. Follow-up imaging may be considered as indicated clinically. Impression: Abnormal study as above Dictated by Tayo Dumont MD @ 09/24/2022 10:13:15 AM (Electronic Signature) Critical Care Time Critical Care Time Critical Care Time: No Discharge Plan Discharge Clinical Impression: Acute pain of right wrist, Fall Patient Disposition: Home, Self-Care Condition: Stable Instructions: Wrist Injury (ED) Additional Instructions: Leave wrist splint on for immobilization, may take off to shower only. Can ice and elevate if there is pain or swelling but leave wrist splint on. Can use Tylenol as needed for pain control, follow bottle directions for dosing. Please call the orthopedic clinic Monday morning to get scheduled for follow-up in 7-10 days for re-evaluation and possible re-x-ray of this wrist. Phone number for the orthopedic clinic as [phone]. Activity Level: Activity as Tolerated Prescriptions: No Action amlodipine 5 mg tablet 5 mg PO DAILY aspirin 81 mg tablet,delayed release (DR/EC) 81 mg PO DAILY latanoprost 0.005 % drops 1 drp OPHTHALMIC (EYE) HS Rx Instructions: BOTH EYES gabapentin 600 mg tablet 600 mg PO TID nicotine (polacrilex) 2 mg gum 2 mg buccal PRN risperidone 2 mg tablet 2 mg PO BID famotidine 20 mg tablet 20 mg PO HS pantoprazole 40 mg tablet,delayed release (DR/EC) 40 mg PO DAILY dorzolamide-timolol 22.3-6.8 mg/mL drops 1 drp OPHTHALMIC (EYE) BID Rx Instructions: BOTH EYES hydrochlorothiazide 25 mg tablet 25 mg PO DAILY fluticasone propionate 50 mcg/actuation spray,suspension 2 spray INTRANASAL DAILY insulin aspart U-100 100 unit/mL (3 mL) insulin pen 1 - 7 unit SUBCUT BID@12,18 Rx Instructions: 0-7 UNITS PER SLIDING SCALE duloxetine 60 mg capsule,delayed release(DR/EC) 120 mg PO DAILY insulin glargine [Lantus Solostar U-100 Insulin] 100 unit/mL (3 mL) insulin pen 40 unit SUBCUT HS atorvastatin 10 mg tablet 10 mg PO HS cetirizine 10 mg tablet 10 mg PO DAILY PRN cholecalciferol (vitamin D3) 25 mcg (1,000 unit) tablet 1,000 unit PO DAILY nicotine 21 mg/24 hr patch 24 hour 1 patch topical DAILY Systane Ultra 0.4-0.3 % drops 1 drp ophthalmic (eye) QID Rx Instructions: BOTH EYES polyethylene glycol 3350 [Gavilax] 17 gram/dose powder 17 g PO DAILY Januvia 100 mg tablet 100 mg PO DAILY diclofenac sodium 1 % gel 2 g topical QID PRN epinephrine 0.3 mg/0.3 mL auto-injector 0.3 mg IM PRN PRN Rx Instructions: do not exceed 3 doses per episode hydroxyzine HCl 25 mg tablet 25 mg PO TID PRN carboxymethylcellulose sodium [Lubricating Plus] 0.5 % dropperette 1 drp ophthalmic (eye) TID PRN albuterol sulfate [Ventolin HFA] 90 mcg/actuation HFA aerosol inhaler 1 puff INHALATION DAILY PRN potassium chloride 10 mEq Capsule, Extended Release 10 meq PO BIDWM Qty: 60 0RF magnesium oxide 400 mg (241.3 mg magnesium) Tablet 400 mg PO BID Qty: 60 0RF torsemide 20 mg Tablet 20 mg PO DAILY@0800 Qty: 30 0RF acetaminophen 500 mg tablet 1,000 mg PO TID Qty: 180 0RF buprenorphine HCl 2 mg tablet, sublingual 2 mg sublingual TID zolpidem 5 mg tablet 5 mg PO HS oxycodone 5 mg tablet 5 mg PO DAILY Rx Instructions: X 7 DAYS THEN DC (07/16/22 - 07/22/22) naloxone [Narcan] 4 mg/actuation spray,non-aerosol 1 spray INTRANASAL ONCE PRN Follow Up/Referrals: Provider,Not a Local [Primary Care Provider] - Stand Alone Forms: [facility] Info Instructions
--- NOTE | 2022-09-24 09:36 | CRLHL7_ITS ---
For Patients: As a result of the Century Cures Act, medical imaging exams and procedure reports are released immediately into your electronic medical record. You may view this report before your referring provider. If you have questions, please contact your health care provider. Indication: Fall Technique: Three views of the right wrist were acquired Comparison: None Findings: Significant arthritic change involving the carpi especially on the ulnar side. 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 There is also pseudoarthrosis between the aberrant osseous structure and the distal radius at the presumptive distal radial ulnar joint. There is a longitudinally oriented fracture of the distal radius though it is probably chronic. Without prior imaging, is difficult to ascertain any acute finding. My impression is that this is all chronic. Follow-up imaging may be considered as indicated clinically. Impression: Abnormal study as above Dictated by Tayo Dumont MD @ 09/24/2022 10:13:15 AM (Electronically Signed)
--- NOTE | 2022-09-24 10:47 | ED.NURSE ---
Pt ambulatory to the restroom independently. Wrist brace applied to pt R wrist.
--- NOTE | 2022-09-24 11:25 | ED.NURSE ---
Report called to Michael Staples RN.
== END 2022-09-24 11:23 | disposition home or self-care (01) ==
PROVIDERS: Emergency Provider Family Medicine
DX: M25.531 Pain in right wrist (principal); W01.0XXA Fall on same level from slipping, tripping and stumbling without subsequent striking against object, initial encounter
CPT/HCPCS: 29125; 73110; 99283

== ENCOUNTER 2022-12-08 10:50 | Outpatient (CLI) | payer BC, SELFPAY ==
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
== END 2022-12-08 10:51 | disposition home or self-care (01) ==
LOC: AMB 12-15 16:23
PROVIDERS: Visit Provider Family Medicine
DX: R53.1 Weakness (principal); R41.82 Altered mental status, unspecified
CPT/HCPCS: A0425; A0427

== ENCOUNTER 2022-12-08 11:20 | Observation (INO) | payer BC, SELFPAY ==
[2022-12-08] VITALS (31 sets, daily range): BP systolic 114–172; BP diastolic 53–121; PULSE 61–97; RESP 18–20; TEMP 36.1–36.4; O2SAT 92–100
--- NOTE | 2022-12-08 11:36 | CRLHL7_ITS ---
For Patients: As a result of the Century Cures Act, medical imaging exams and procedure reports are released immediately into your electronic medical record. You may view this report before your referring provider. If you have questions, please contact your health care provider. Indication: Upper abdominal pain, lethargic, nonresponsive Technique: Volumetric multidetector CT images of the abdomen and pelvis were obtained after the administration of intravenous contrast. 100 cc Isovue 370 low osmolar intravenous contrast Comparison: CT abdomen and pelvis July 05, 2022 Findings: There is developing airspace opacity in the right greater than left lung base somewhat increased in conspicuity from comparison which may represent worsening of atypical infiltrates. The liver is normal in attenuation without intrahepatic biliary ductal dilatation. The portal vein is patent. There is prior cholecystectomy. There is reservoir dilatation of the intrahepatic and common bile ducts. The spleen is normal in enhancement and size. There is mild thickening of the gastric antrum. The pancreas is normal in enhancement without significant atrophy. The adrenal glands are unremarkable. The kidneys demonstrate preserved corticomedullary differentiation without evidence of obstructive uropathy. There is extensive colonic diverticulosis without evidence of diverticulitis. There is no focal inflammatory change. The appendix is not visualized. There is no significant mesenteric, retroperitoneal, or pelvic sidewall lymph nodes. The aorta is nonaneurysmal. There is no significant atherosclerotic disease appreciated. There is prior hysterectomy. There is no free fluid or free air. There is diastasis of the rectus musculature. There is kyphoplasty of the L1 vertebral body with severe degenerative disc disease changes similar to comparison. Impression: Questionable increased interstitial and airspace opacity in the right greater than left lung bases which may represent worsening infiltrates. Moderate stool seen throughout the colon with colonic diverticulosis without definite evidence of diverticulitis. Prior cholecystectomy and reservoir dilatation of the intrahepatic and common bile ducts. Please note that all CT scans at this facility use dose modulation, iterative reconstruction, and/or weight-based dosing when appropriate to reduce radiation dose to as low as reasonably achievable. Dictated by Yobani Conner MD @ 12/08/2022 2:57:43 PM (Electronically Signed)
--- NOTE | 2022-12-08 11:38 | ED.GENADULT ---
HPI - General Adult General Time Seen by Provider: 11:38 Date Seen: 12/08/22 Chief complaint: Altered Mental Status Stated complaint: Lethargic Time Seen by Provider: 12/08/22 11:32 History of Present Illness HPI narrative: Patient is a 9-year-old female with a history of diabetes heart failure or liver sore presenting to emergency department for altered mental status. She comes in [facility] and staff there states the patient separately up with all back by herself alert and orientated times 2-3 and makes, sedation without difficulty. They noted last night she seemed to be intermittently altered. This morning she would not wake up to come get her food which is very abnormal for her Na difficulty given the response of her. They states typically when they call you but then she gets very upset and argues with them not to come to the hospital at this time she had no reaction. Patient is intermittently able answer questions but with her altered mental status I cannot verify that her responses are true. She does min large parts of the ED evaluation staring straight ahead with minimal response. Related Data Home Medications Medication Instructions Recorded Confirmed amlodipine 5 mg tablet 5 mg PO DAILY 10/19/21 10/04/22 aspirin 81 mg tablet,delayed 81 mg PO DAILY 10/19/21 10/04/22 release dorzolamide 22.3 mg-timolol 6.8 1 drp ophthalmic (eye) BID 10/19/21 10/04/22 mg/mL eye drops duloxetine 60 mg capsule,delayed 120 mg PO DAILY 10/19/21 10/04/22 release famotidine 20 mg tablet 20 mg PO HS 10/19/21 10/04/22 fluticasone propionate 50 2 spray intranasal DAILY 10/19/21 10/04/22 mcg/actuation nasal spray,suspension gabapentin 600 mg tablet 600 mg PO TID 10/19/21 10/04/22 hydrochlorothiazide 25 mg tablet 25 mg PO DAILY 10/19/21 10/04/22 insulin aspart U-100 100 unit/mL 1 - 7 unit subcut BID@18 10/19/21 10/04/22 (3 mL) subcutaneous pen insulin glargine 100 unit/mL (3 40 unit subcut HS 10/19/21 10/04/22 mL) subcutaneous pen (Lantus Solostar U-100 Insulin) latanoprost 0.005 % eye drops 1 drp ophthalmic (eye) HS 10/19/21 10/04/22 nicotine (polacrilex) 2 mg gum 2 mg buccal PRN 10/19/21 10/04/22 pantoprazole 40 mg tablet,delayed 40 mg PO DAILY 10/19/21 10/04/22 release risperidone 2 mg tablet 2 mg PO BID 10/19/21 10/04/22 albuterol sulfate 90 mcg/actuation 1 puff inhalation DAILY PRN 03/13/22 10/04/22 aerosol inhaler (Ventolin HFA) atorvastatin 10 mg tablet 10 mg PO HS 03/13/22 10/04/22 carboxymethylcellulose sodium 0.5 1 drp ophthalmic (eye) TID PRN 03/13/22 10/04/22 % eye drops in a dropperette (Lubricating Plus) cetirizine 10 mg tablet 10 mg PO DAILY PRN 03/13/22 10/04/22 cholecalciferol (vitamin D3) 25 1,000 unit PO DAILY 03/13/22 10/04/22 mcg (1,000 unit) tablet diclofenac sodium 1 % topical gel 2 g topical QID PRN 03/13/22 10/04/22 epinephrine 0.3 mg/0.3 mL 0.3 mg IM PRN PRN 03/13/22 10/04/22 injection, auto-injector hydroxyzine HCl 25 mg tablet 25 mg PO TID PRN 03/13/22 10/04/22 nicotine 21 mg/24 hr daily 1 patch topical DAILY 03/13/22 10/04/22 transdermal patch peg 400-propylene glycol 0.4 %-0.3 1 drp ophthalmic (eye) QID 03/13/22 10/04/22 % eye drops (Systane Ultra) polyethylene glycol 3350 17 17 g PO DAILY 03/13/22 10/04/22 gram/dose oral powder (Gavilax) sitagliptin phosphate 100 mg 100 mg PO DAILY 03/13/22 10/04/22 tablet (Januvia) buprenorphine HCl 2 mg sublingual 2 mg sublingual TID 07/21/22 10/04/22 tablet naloxone 4 mg/actuation nasal 1 spray intranasal ONCE PRN 07/21/22 10/04/22 spray (Narcan) oxycodone 5 mg tablet 5 mg PO DAILY pain 07/21/22 10/04/22 zolpidem 5 mg tablet 5 mg PO HS 07/21/22 10/04/22 Previous Rx's Medication Instructions Recorded acetaminophen 500 mg tablet 1,000 mg (2 x 500 mg) PO TID #180 03/16/22 tabs magnesium oxide 400 mg (241.3 mg 400 mg PO BID #60 tabs 03/16/22 magnesium) tablet potassium chloride 10 mEq 10 meq PO BIDWM #60 caps 03/16/22 capsule,extended release torsemide 20 mg tablet 20 mg PO DAILY@0800 #30 tabs 03/16/22 Allergies Allergy/AdvReac Type Severity Reaction Status Date / Time aspirin Allergy Unknown Verified 10/04/22 15:08 losartan Allergy Unknown Verified 10/04/22 15:08 tramadol Allergy Unknown Verified 10/04/22 15:08 varenicline Allergy Unknown Verified 10/04/22 15:08 bee venom protein (honey bee) Allergy Verified 10/04/22 15:08 ketorolac [From Toradol] Allergy Verified 10/04/22 15:08 NSAIDS (Non-Steroidal Allergy Verified 10/04/22 15:08 Anti-Inflamma Penicillins Allergy Verified 10/04/22 15:08 Review of Systems Status of ROS: Reports: unobtainable due to mental status PFSH PFS Medical History Type 2 diabetes mellitus ?E11.9 - Type 2 diabetes mellitus without complications (ICD-10) Sleep apnea with hypersomnolence ?G47.10 - Hypersomnia, unspecified (ICD-10) ?G47.30 - Sleep apnea, unspecified (ICD-10) Hepatic steatosis ?K76.0 - Fatty (change of) liver, not elsewhere classified (ICD-10) Physical deconditioning ?R53.81 - Other malaise (ICD-10) Polypharmacy ?Z79.899 - Other buttermaker (current) drug therapy (ICD-10) Chronic, continuous use of opioids ?F11.90 - Opioid use, unspecified, uncomplicated (ICD-10) Heart failure ?I50.9 - Heart failure, unspecified (ICD-10) Osteoarthritis ?M19.90 - Unspecified osteoarthritis, unspecified site (ICD-10) Degenerative disc disease, lumbar ?M51.36 - Other intervertebral disc degeneration, lumbar region (ICD-10) Anxiety, generalized ?F41.1 - Generalized anxiety disorder (ICD-10) Antisocial personality disorder ?F60.2 - Antisocial personality disorder (ICD-10) Back pain ?M54.9 - Dorsalgia, unspecified (ICD-10) Chronic pain syndrome ?G89.4 - Chronic pain syndrome (ICD-10) Nicotine dependence ?F17.200 - Nicotine dependence, unspecified, uncomplicated (ICD-10) Borderline personality disorder ?F60.3 - Borderline personality disorder (ICD-10) Asthma ?J45.909 - Unspecified asthma, uncomplicated (ICD-10) COPD (chronic obstructive pulmonary disease) ?J44.9 - Chronic obstructive pulmonary disease, unspecified (ICD-10) Diabetes mellitus type 2 in obese ?E11.69 - Type 2 diabetes mellitus with other specified complication (ICD-10) ?E66.9 - Obesity, unspecified (ICD-10) Hypertension, essential ?I10 - Essential (primary) hypertension (ICD-10) Obesity ?E66.9 - Obesity, unspecified (ICD-10) Surgical History History of total knee arthroplasty ?Z96.659 - Presence of unspecified artificial knee joint (ICD-10) History of cholecystectomy ?Z90.49 - Acquired absence of other specified parts of digestive tract (ICD-10) Family History Father Stomach cancer Brother Heart disease Social History Narrative: Patient is a resident of [facility]. She tells me she has been smoking 2 or 3 cigarettes per day. She is attempting to quit. She does not drink alcohol. Her healthcare power of customer service attendant would be her son Korey Miles, code status is full. Highest level of school completed/degree received: don't know Smoking Status: Former smoker What tobacco products do you use: cigarettes Smoking quit date/years: <= 15 years ago Do you use any of these nicotine containing products: None Nicotine containing products detail: quit today Second hand tobacco smoke exposure: No How often do you have a drink containing alcohol: never How often do you have six or more drinks on one occasion: Never AUDIT-C Alcohol total score: 0 Non-prescribed substance use: denies use Caffeine: Yes (coke) service: No Exam Narrative: Exam Narrative: Const: Well-nourished, Well-developed, in mild distress Eyes: PERRL, no conjunctival injection, and symmetrical lids ENMT: Atraumatic external nose and ears. Dry mucous membranes. Neck: Symmetric, trachea midline, No thyromegaly. CVS: RRR, No murmurs or gallops. Peripheral pulses 2+ and equal in all extremities RESP: Unlabored respiratory effort. Clear to auscultation bilaterally. GI: Nontender/Nondistended, No rebound or guarding. MSK:Extremities w/o deformity, Normal Active ROM Skin: Warm, Dry. No rashes or lesions. Neuro: Normal Muscle tone, No focal neurological deficits but is difficult to fully determine due to her altered mental status Psych: Awake & Oriented to self but has slow response times. Const: Vital Signs, click to edit/add: Vital Signs - 24 hr 12/08/22 11:26 12/08/22 11:34 12/08/22 11:45 Temperature 97.3 F L Pulse Rate 93 90 Pulse Rate [Pulse Oximeter] 91 Respiratory Rate 20 Blood Pressure Blood Pressure [Le ft Upper Arm] 153/111 H Pulse Oximetry 95 96 96 Oxygen Delivery Wy thod Room Air 12/08/22 11:48 12/08/22 12:36 12/08/22 12:56 Temperature Pulse Rate 94 Pulse Rate [Pulse Oximeter] Respiratory Rate Blood Pressure 172/121 H 131/90 H Blood Pressure [Le ft Upper Arm] Pulse Oximetry 96 Oxygen Delivery Wy thod Room Air 12/08/22 13:00 12/08/22 13:02 12/08/22 13:15 Temperature Pulse Rate 94 94 97 Pulse Rate [Pulse Oximeter] Respiratory Rate Blood Pressure 140/82 H Blood Pressure [Le ft Upper Arm] Pulse Oximetry 95 96 96 Oxygen Delivery Wy thod Room Air Room Air Room Air 12/08/22 13:30 12/08/22 13:31 12/08/22 14:02 Temperature Pulse Rate 93 Pulse Rate [Pulse Oximeter] Respiratory Rate Blood Pressure 141/83 H 128/82 Blood Pressure [Le ft Upper Arm] Pulse Oximetry 98 Oxygen Delivery Wy thod Room Air Room Air 12/08/22 14:05 12/08/22 14:15 12/08/22 14:30 Temperature Pulse Rate 90 96 88 Pulse Rate [Pulse Oximeter] Respiratory Rate Blood Pressure Blood Pressure [Le ft Upper Arm] Pulse Oximetry 97 94 95 Oxygen Delivery Me thod 12/08/22 14:31 12/08/22 14:45 12/08/22 15:00 Temperature Pulse Rate 90 91 89 Pulse Rate [Pulse Oximeter] Respiratory Rate Blood Pressure 146/87 H Blood Pressure [Le ft Upper Arm] Pulse Oximetry 94 95 93 Oxygen Delivery Me thod 12/08/22 15:02 Temperature Pulse Rate 90 Pulse Rate [Pulse Oximeter] Respiratory Rate Blood Pressure 143/82 H Blood Pressure [Le ft Upper Arm] Pulse Oximetry 92 Oxygen Delivery Me thod Course Vital Signs Vital signs: Initial Vital Signs Temperature 97.3 F L 12/08/22 11:26 Temperature Source Temporal Artery Scan 12/08/22 11:26 Pulse Rate 91 12/08/22 11:26 Respiratory Rate 20 12/08/22 11:26 Blood Pressure 153/111 H 12/08/22 11:26 Blood Pressure Mean 125 H 12/08/22 11:26 Blood Pressure Position Semi-Fowlers 12/08/22 11:26 Pulse Oximetry 95 12/08/22 11:26 Oxygen Delivery Method Room Air 12/08/22 11:26 Vital Signs Temperature 97.3 F L 12/08/22 11:26 Pulse Rate 91 12/08/22 11:26 Respiratory Rate 20 12/08/22 11:26 Blood Pressure 153/111 H 12/08/22 11:26 Pulse Oximetry 95 12/08/22 11:26 Oxygen Delivery Method Room Air 12/08/22 11:26 Temperature 97.3 F L 12/08/22 11:26 Pulse Rate 90 12/08/22 15:02 Respiratory Rate 20 12/08/22 11:26 Blood Pressure 143/82 H 12/08/22 15:02 Pulse Oximetry 92 12/08/22 15:02 Oxygen Delivery Method Room Air 12/08/22 13:31 Medical Decision Making MDM Narrative Medical decision making narrative: Patient is 72-year-old female presents to emergency department for altered mental status. Based history nursing she is very altered compared to her baseline is typically able to walk issue. She is also looks very dehydrated very dry mucosal membranes. Symptoms began to start last night. Considering her symptoms we will order a broad workup including head CT, chest x-ray, CT abdomen pelvis. She did have some tenderness into her upper abdomen bilaterally. I will also do a septic workup on her including CBC, lactate, blood cultures, lipase, magnesium, urinalysis, CMP, COVID, flu, troponin. She was given a L of lactated Ringer's for her dehydration. Patient's lab work returns appears to be a urinary tract infection. It was a dirty sample but there still are some white blood cells, leukocyte esterases and nitrites are positive. She is altered so this is likely the cause of her altered mental status. We are unable to give her oral medicine due to her poor cognition at this time and I unable to give IV antibiotics because the line she quit working after her CT scan. She has been poked several times in even anesthesia placed on line and all the have quit working. She is pending a midline to be performed by the PICC nurse. Abdominal CT shows no acute concerning abnormalities. There is some possible infiltrates in lower lobes. Chest x-ray showed what appeared to be pulmonary edema but overall the patient looks more dry. Did do a BNP which was only 30. Head CT showed no concerning abnormalities. She has not appeared to be in septic shock at this time with stable vital signs. Troponin is within normal limits. EKG shows no concerning abnormalities other than a elongated QTC. This is unlikely to be the cause of her symptoms. COVID and flu negative. She will be admitted to the hospitalist service. Lab Data Labs: Lab Results 12/08/22 12/08/22 12/08/22 Range/Units 11:45 12:08 14:30 WBC 8.39 (4.50-11.00) K/uL RBC 4.60 (4.00-5.20) m/uL Hgb 13.8 (12.0-16.0) gm/dL Hct 41.6 (33.0-51.0) % MCV 90 (80-100) fL MCH 30 (26-34) pg MCHC 33 (32-36) gm/dL RDW Coeff of Rosa 12.3 (11.5-15.5) % Plt Count 247 (140-440) K/uL Neut % (Auto) 58.1 (42.0-72.0) % Lymph % (Auto) 27.1 (20-44) % [place] % (Auto) 12.8 H (0.0-11.0) % Eos % (Auto) 1.5 (0.0-7.0) % Baso % (Auto) 0.4 (0.0-3.0) % Neut # (Auto) 4.88 (1.7-7.0) K/uL Lymph # (Auto) 2.27 (0.90-2.90) K/uL [place] # (Auto) 1.10 H (0.00-0.90) K/UL Eos # (Auto) 0.13 (0.00-0.50) K/uL Baso # (Auto) 0.03 (0.00-0.30) K/uL Abs Immat Gran (auto) 0.01 (0.00-0.30) K/uL Imm/Tot Granulo (auto) 0.1 % Sodium 139 (135-149) mmol/L Potassium 3.2 L (3.6-5.1) mmol/L Chloride 95 L (96-114) mmol/L Carbon Dioxide 36 H (20-32) mmol/L Anion Gap 8 (7-15) mEq/L BUN 16 (7-30) mg/dL Creatinine 0.7 (0.5-1.5) mg/dL Estimated GFR 93 ml/min Glucose 146 H (60-115) mg/dL Lactate 1.8 (0.5-1.9) mmol/L Calcium 10.2 (8.4-10.6) mg/dL Magnesium 2.3 (1.5-2.6) mg/dL Total Bilirubin 2.0 H (0.1-1.5) mg/dL AST 95 H (12-35) U/L ALT 38 H (4-35) U/L Alkaline Phosphatase 102 (40-150) U/L Troponin I < 0.01 L (0.01-0.04) ng/mL NT-Pro-B Natriuret Pep 30 pg/mL Total Protein 8.2 (6.0-8.3) g/dL Albumin 4.3 (3.3-5.0) g/dL Lipase 113 (23-300) U/L Urine Color Dark yellow (Yellow) Urine Appearance Cloudy A (Clear) Urine pH 7.0 (5.0-8.5) Ur Specific Elsie 1.015 (1.000-1.030) Urine Protein Negative (Negative) Urine Glucose (UA) Negative (Negative) Urine Ketones Negative (Negative) Urine Blood Trace-intact A (Negative) Urine Nitrite Positive A (Negative) Urine Bilirubin Negative (Negative) Urine Urobilinogen 1.0 (0.2-1.0) Ur Leukocyte Esterase 3+ A (Negative) Urine RBC 2-5 A (0-2) Urine WBC 50-100 A (0-5) Ur Squamous Epith Cells Moderate A (None-Few) Urine Bacteria Many A (None) Coarse Granular Casts Moderate A (None) SARS-CoV-2 (PCR) Negative SARS-CoV-2 (Negative) Influenza Type A (PCR) Negative PCR FLU A (Negative) Influenza Type B (PCR) Negative PCR FLU B (Negative) Lab Acknowledgement 12/08/22 Range/Units 15:17 WBC (4.50-11.00) K/uL RBC (4.00-5.20) m/uL Hgb (12.0-16.0) gm/dL Hct (33.0-51.0) % MCV (80-100) fL MCH (26-34) pg MCHC (32-36) gm/dL RDW Coeff of Rosa (11.5-15.5) % Plt Count (140-440) K/uL Neut % (Auto) (42.0-72.0) % Lymph % (Auto) (20-44) % [place] % (Auto) (0.0-11.0) % Eos % (Auto) (0.0-7.0) % Baso % (Auto) (0.0-3.0) % Neut # (Auto) (1.7-7.0) K/uL Lymph # (Auto) (0.90-2.90) K/uL [place] # (Auto) (0.00-0.90) K/UL Eos # (Auto) (0.00-0.50) K/uL Baso # (Auto) (0.00-0.30) K/uL Abs Immat Gran (auto) (0.00-0.30) K/uL Imm/Tot Granulo (auto) % Sodium (135-149) mmol/L Potassium (3.6-5.1) mmol/L Chloride (96-114) mmol/L Carbon Dioxide (20-32) mmol/L Anion Gap (7-15) mEq/L BUN (7-30) mg/dL Creatinine (0.5-1.5) mg/dL Estimated GFR ml/min Glucose (60-115) mg/dL Lactate (0.5-1.9) mmol/L Calcium (8.4-10.6) mg/dL Magnesium (1.5-2.6) mg/dL Total Bilirubin (0.1-1.5) mg/dL AST (12-35) U/L ALT (4-35) U/L Alkaline Phosphatase (40-150) U/L Troponin I (0.01-0.04) ng/mL NT-Pro-B Natriuret Pep pg/mL Total Protein (6.0-8.3) g/dL Albumin (3.3-5.0) g/dL Lipase (23-300) U/L Urine Color (Yellow) Urine Appearance (Clear) Urine pH (5.0-8.5) Ur Specific Elsie (1.000-1.030) Urine Protein (Negative) Urine Glucose (UA) (Negative) Urine Ketones (Negative) Urine Blood (Negative) Urine Nitrite (Negative) Urine Bilirubin (Negative) Urine Urobilinogen (0.2-1.0) Ur Leukocyte Esterase (Negative) Urine RBC (0-2) Urine WBC (0-5) Ur Squamous Epith Cells (None-Few) Urine Bacteria (None) Coarse Granular Casts (None) SARS-CoV-2 (PCR) (Negative) Influenza Type A (PCR) (Negative) Influenza Type B (PCR) (Negative) Lab Acknowledgement Test Added Imaging Data CT scan - head: Radiologist's impression: INDICATION: Lethargic, nonresponsive TECHNIQUE: Noncontrast axial CT of the head. Coronal and sagittal reformats. Bone and soft tissue algorithms. COMPARISON: MRI brain report 07/23/2022 FINDINGS: There is motion artifact obscuring the cerebral vertex. The ventricles and cortical sulci are slightly prominent compatible with generalized cerebral volume loss. No midline shift, hydrocephalus, or herniation. No acute intracranial hemorrhage, or abnormal extra-axial fluid collection. Hough-white matter differentiation appears grossly preserved. White matter attenuation is unremarkable. There is scattered intracranial atherosclerotic calcific plaquing. The bony calvarium appears grossly intact. Visualized paranasal sinuses and mastoid air cells are clear. Right lens implant is noted. IMPRESSION: No CT evidence of acute intracranial abnormality given limitations from patient motion. Please note that all CT scans at this facility use dose modulation, iterative reconstruction, and/or weight-based dosing when appropriate to reduce radiation dose to as low as reasonably achievable. Dictated by Abigail De Jesus MD @ 12/08/2022 2:15:[address] scan abdomen/pelvis: Radiologist's impression: Indication: Upper abdominal pain, lethargic, nonresponsive Technique: Volumetric multidetector CT images of the abdomen and pelvis were obtained after the administration of intravenous contrast. 100 cc Isovue 370 low osmolar intravenous contrast Comparison: CT abdomen and pelvis July 05, 2022 Findings: There is developing airspace opacity in the right greater than left lung base somewhat increased in conspicuity from comparison which may represent worsening of atypical infiltrates. The liver is normal in attenuation without intrahepatic biliary ductal dilatation. The portal vein is patent. There is prior cholecystectomy. There is reservoir dilatation of the intrahepatic and common bile ducts. The spleen is normal in enhancement and size. There is mild thickening of the gastric antrum. The pancreas is normal in enhancement without significant atrophy. The adrenal glands are unremarkable. The kidneys demonstrate preserved corticomedullary differentiation without evidence of obstructive uropathy. There is extensive colonic diverticulosis without evidence of diverticulitis. There is no focal inflammatory change. The appendix is not visualized. There is no significant mesenteric, retroperitoneal, or pelvic sidewall lymph nodes. The aorta is nonaneurysmal. There is no significant atherosclerotic disease appreciated. There is prior hysterectomy. There is no free fluid or free air. There is diastasis of the rectus musculature. There is kyphoplasty of the L1 vertebral body with severe degenerative disc disease changes similar to comparison. Impression: Questionable increased interstitial and airspace opacity in the right greater than left lung bases which may represent worsening infiltrates. Moderate stool seen throughout the colon with colonic diverticulosis without definite evidence of diverticulitis. Prior cholecystectomy and reservoir dilatation of the intrahepatic and common bile ducts. Please note that all CT scans at this facility use dose modulation, iterative reconstruction, and/or weight-based dosing when appropriate to reduce radiation dose to as low as reasonably achievable. Dictated by Yobani Conner MD @ 12/08/2022 2:57:43 PM Chest x-ray: Radiologist's impression: Indication: Altered mental status Comparison: Single-view chest July 22, 2022 Technique: Single AP view chest Findings: There are diffusely increased interstitial markings likely representing mild pulmonary vascular congestion. There is minimal basilar atelectasis. There is no focal consolidation, effusion, or pneumothorax. Stable cardiac silhouette with a tortuous thoracic aorta. The bony thorax is grossly intact. Impression: Diffusely increased interstitial markings likely representing mild pulmonary edema. Dictated by Yobani Conner MD @ 12/08/2022 2:58:55 PM ECG Data Attestation: I personally reviewed and interpreted this ECG as follows: Prior ECG tracings: available for review (07/21/2022) Interpretation: Normal sinus rhythm with a rate of 92 beats per minute, normal intervals, normal MT interval, she does have prolonged QTC, no ST or T-wave abnormalities are seen on my review Discharge Plan Discharge Clinical Impression: Acute UTI Altered mental status Qualifiers: Altered mental status type: unspecified Qualified Code(s): R41.82 - Altered mental status, unspecified Patient Disposition: Admitted As Observation Discharge Location: [facility] Condition: Stable
[2022-12-08 12:13] LABS: Lactate* 1.8 mmol/L (0.5-1.9)
[2022-12-08 12:26] LABS: Basophils Absolute Auto 0.03 K/uL (0.00-0.30); Basophils Percent Auto 0.4 % (0.0-3.0); Eosinophils Absolute Auto 0.13 K/uL (0.00-0.50); Eosinophils Percent Auto 1.5 % (0.0-7.0); Hematocrit 41.6 % (33.0-51.0); Hemoglobin* 13.8 gm/dL (12.0-16.0); Immature Granulocytes Abs Auto 0.01 K/uL (0.00-0.30); Immature Granulocytes Pct Auto 0.1 %; Lymphocytes Absolute Auto 2.27 K/uL (0.90-2.90); Lymphocytes Percent Auto 27.1 % (20-44); Mean Corpuscular HGB Conc 33 gm/dL (32-36); Mean Corpuscular Hemoglobin 30 pg (26-34); Mean Corpuscular Volume 90 fL (80-100); Monocytes Percent Auto 12.8 % (0.0-11.0); Neutrophils Absolute Auto 4.88 K/uL (1.7-7.0); Neutrophils Percent Auto 58.1 % (42.0-72.0); Platelet Count* 247 K/uL (140-440); RDW Coefficient of Variation % 12.3 % (11.5-15.5); White Blood Count* 8.39 K/uL (4.50-11.00)
[2022-12-08 12:31] LABS: Slide Review Reflex No
[2022-12-08 12:43] LABS: PCR FLU A Negative PCR FLU A (Negative); PCR FLU B Negative PCR FLU B (Negative)
--- OUTSIDE RECORDS SUMMARY | 2022-12-08 12:44 | XMS_ITS | CCD ---
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 Role Phone Yesika Adams PA-C Primary Care Provider Unavailabl e Unavailable Chronic Care Management Unavaila ble Summary Purpose DataExchange Insurance Providers Payer name Policy type / Coverage type Covered alliance party ID Effective Begin Date Effective End Date [place] Blue [place]/Blue Shield [id number] 2022 Unknown [place] [id number] 2022 Unknown Family history Mother Diagnosis Age At Onset Glaucoma Unknown Brother Diagnosis Age At Onset Visual disturbance/blindness Unknown Glaucoma Unknown Father Diagnosis Age At Onset Stomach cancer Unknown Social History Social History Element Codes Description Effec tive Dates Tobacco history SNOMED CT: 43198767 Current every day smoker 07/01/[address]: 795424969 No Alcohol Consum ption 07/01/2022 Allergies, Adverse Reactions, Alerts Substance Reaction Codes Entered Date Inactivated Date Status Bee Sting Unknown 03/03/2022 No Inactive Date Ac tive NSAIDS Unknown 03/03/2022 No Inactive Date Ac tive PENICILLINS Unknown 03/03/2022 No Inactive Date Active losartan RxNorm: 450920 03/03/2022 No Inactive Da te Active aspirin Unknown 03/03/2022 No Inactive Date Ac tive tramadol RxNorm: 18907 03/03/2022 No Inactive Marek e Active Other: Unknown 03/03/2022 No Inactive Date Ac tive VARENICLINE Unknown 03/03/2022 No Inactive Date Active Problems Condition Codes Effective Dates Condition St atus Chronic pain ICD-10: G89.29 ICD-9: 338.29 08/31/2022 Active Hypertension ICD-10: I10 ICD-9: 401.9 08/31/2022 Active 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, with long-term current use of insulin ICD-10: E11.59 ICD-9: 250.70 08/31/2022 Active Stomach pain ICD-10: R10.9 ICD-9: 536.8 07/06/2022 Active Community acquired pneumonia ICD-10: J18 .9 ICD-9: 486 06/29/2022 Active Insomnia ICD-10: G47.00 ICD-9: 780.52 06/29/2022 Active Preventative health care ICD-10: Z00.00 ICD-9: V70.0 06/29/2022 Active Primary osteoarthritis invol ving multiple joints ICD-10: M15.9 ICD-9: 715.98 06/29/2022 Active Smoking ICD-10: F17.200 ICD-9: 305.1 06/29/2022 Active 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 0 ICD-9: 780.99 05/17/2022 Active Cough ICD-10: R05.9 ICD-9: 786.2 05/10/2022 Active Diabetes Unknown 03/03/2022 Active Diabetes mellitus Type 2 Unknown 03/03/2022 Act gm Headache ICD-10: R51.9 ICD-9: 784.0 03/03/2022 Active intermediate (current) use of insulin ICD-10: Z79.4 03/03 Active Medications Medication Codes Instructions Start Date Stop Date Status Fill Instructions Systane Ultra 0.4 %-0.3 % eye drops RxNorm: 216762 Instill 1 Drop(s) Both eyes QID 09/06/19 23 No Stop Date Active Lantus Solostar U-100 Insulin 100 unit/mL (3 mL) subcutaneous pen RxNorm: 196882 Inject 20 Unit(s) Subcutaneous QHS every night at bedtime 09/01/19 23 No Stop Date Active Pen Needle 30 gauge x 16 RxNorm: Use as directed to administer insulin up to 3x daily 09/01/19 23 No Stop Date Active diclofenac 1 % topical gel RxNorm: 297310 Apply 4 Gram(s) Topical QID (bilateral knees or area of pain per patient's request) 09/01/19 No Stop Date Active acetaminophen 325 mg tablet RxNorm: 467308 Take 1 Tablet(s) Oral Q4H every four hours as needed 09/01/19 No Stop Date Active Humalog JerzyPen (U-100) Insulin 100 unit/mL subcutaneous RxNorm: 9596393 Unit(s) Subcutaneous Inject per sliding scale BID before lunch and dinner 09/01/19 No Stop Date Active Aspercreme (lidocaine) 4 % topical patch RxNorm: 9425883 Apply 1 Patch Topical QD (on for 12 hours, off for 12 hours) 09/01/19 No Stop Date Active melatonin 3 mg tablet RxNorm: 703402 Take 2 Tablet(s) Oral QHS every night at bedtime as needed (may repeat once) 09/01/19 No Stop Date Active Januvia 100 mg tablet RxNorm: 820902 Take 1 Tablet(s) Oral QD 07/23/19 024 Active 2nd REQUEST FOR REFILLS 07-22-2022 NEED KIM PLEASE = THANK YOU duloxetine 60 mg capsule,delayed release RxNorm: 799077 Take 2 Capsule(s) Oral QD 07/23/19 23 024 Active 2nd REQUEST FOR REFILLS 07-22-2022 NEED KIM PLEASE = THANK YOU pantoprazole 40 mg tablet,delayed release RxNorm: 002487 TAKE 1 TABLET BY MOUTH EVERY MORNING BEFORE BREAKFAST 07/23/19 23 024 Active 2nd REQUEST FOR REFILLS 07-22-2022 NEED KIM PLEASE = THANK YOU magnesium oxide 400 mg (241.3 mg magnesium) tablet RxNorm: 641135 Take 1 Tablet(s) Oral BID 07/23/19 23 024 Active 2nd REQUEST FOR REFILLS 07-22-2022 NEED KIM PLEASE = THANK YOU acetaminophen 500 mg tablet RxNorm: 743635 Take 2 Tablet(s) Oral TID 07/23/19 23 024 Active 2nd REQUEST FOR REFILLS 07-22-2022 NEED KIM PLEASE = THANK YOU risperidone 2 mg tablet RxNorm: 586929 Take 1 Tablet(s) Oral BID 07/23/19 23 024 Active 2nd REQUEST FOR REFILLS 07-22-2022 NEED KIM PLEASE = THANK YOU hydrochlorothiazide 25 mg tablet RxNorm: 914988 Take 1 Tablet(s) Oral QD 07/23/19 23 024 Active 2nd REQUEST FOR REFILLS 07-22-2022 NEED KIM PLEASE = THANK YOU potassium chloride ER 10 mEq capsule,extended release RxNorm: 387465 TAKE 1 CAPSULE BY MOUTH TWICE DAILY WITH MEAL(S) 07/23/19 23 023 Inactive 2nd REQUEST FOR REFILLS 07-22-2022 NEED KIM PLEASE = THANK YOU buprenorphine HCl 2 mg sublingual tablet RxNorm: 075665 Take 1 Tablet(s) Sublingual TID 07/19/19 23 023 Inactive buprenorphine HCl 2 mg sublingual tablet RxNorm: 590376 Take 1 Tablet(s) Sublingual TID 07/19/19 23 023 Inactive oxycodone 5 mg tablet RxNorm: 3727010 Take 1 Tablet(s) Oral BID x7 days then decrease to 1 tab once daily x 7 days then d/c 07/09/19 23 023 Inactive latanoprost 0.005 % eye drops RxNorm: 575569 Take 1 Drop(s) Both eyes QHS every night at bedtime 07/07/19 23 024 Active buprenorphine 5 mcg/hour weekly transdermal patch RxNorm: 814629 Apply 1 Transdermal once every 7 days 07/06/19 23 023 Inactive zolpidem 5 mg tablet RxNorm: 709147 Take 1 Tablet(s) Oral QHS every night at bedtime 07/06/19 23 023 Inactive buprenorphine 5 mcg/hour weekly transdermal patch RxNorm: 422441 Apply 1 Transdermal once every 7 days 07/06/19 23 023 Inactive start after stops oxycodone. belbuca film not covered famotidine 20 mg tablet RxNorm: 264198 Give 1 Tablet(s) Oral QHS every night at bedtime 07/02/19 23 024 Active amlodipine 5 mg tablet RxNorm: 083412 Take 1 Tablet(s) Oral QD 07/02/19 23 024 Active nicotine 21 mg/24 hr daily transdermal patch RxNorm: 772530 Apply 1 Patch Transdermal QD Remove old patch prior to placing the new one 07/02/19 023 Inactive torsemide 20 mg tablet RxNorm: 489441 Take 1 Tablet(s) Oral QAM every morning 07/02/19 024 Active atorvastatin 10 mg tablet RxNorm: 968565 Take 1 Tablet(s) Oral QHS every night at bedtime 07/02/19 024 Active aspirin 81 mg tablet,delayed release RxNorm: 218749 Take 1 Tablet(s) Oral QD 07/02/19 024 Active dorzolamide 22.3 mg-timolol 6.8 mg/mL eye drops RxNorm: 5437348 Apply 1 Drop(s) Both eyes BID 07/02/19 024 Active Systane Ultra 0.4 %-0.3 % eye drops RxNorm: 263872 Apply 1 Drop(s) Both eyes QID 07/02/19 023 Inactive fluticasone propionate 50 mcg/actuation nasal spray,suspension RxNorm: 0944133 Crum Lynne 2 Crum Lynne Nasal QD - Daily both nostrils 07/02/19 024 Active cholecalciferol (vitamin D3) 25 mcg (1,000 unit) tablet RxNorm: 741100 Take 1 Tablet(s) Oral QAM every morning 07/02/19 023 Inactive acetaminophen 500 mg tablet RxNorm: 614578 Take 2 Tablet(s) Oral TID 07/02/19 023 Inactive gabapentin 600 mg tablet RxNorm: 629374 Take 1 Tablet(s) Oral TID 07/02/19 023 Inactive risperidone 2 mg tablet RxNorm: 475442 Take 1 Tablet(s) Oral BID 07/02/19 023 Inactive pantoprazole 40 mg intravenous solution RxNorm: 584984 Take 1 Tablet(s) Intravenous QAM every morning 07/02/19 023 Inactive Januvia 100 mg tablet RxNorm: 725022 Take 1 Tablet(s) Oral QD 07/02/19 023 Inactive potassium chloride ER 10 mEq tablet,extended release RxNorm: 797122 Take 1 Tablet(s) Oral BID 07/02/19 23 023 Inactive Belbuca 75 mcg buccal film RxNorm: 7877509 Take 1/2 film (37.5mcg) (cut diagonally) BID (start AFTER stopping oxycodone) 07/02/19 023 Inactive start belbuca in 7 days AFTER patient stops oxycodone latanoprost 0.005 % eye drops RxNorm: 545092 Take 1 Drop(s) Both eyes QHS every night at bedtime 07/02/19 023 Inactive Lantus Solostar U-100 Insulin 100 unit/mL (3 mL) subcutaneous pen RxNorm: 202698 Take 40 Unit(s) Subcutaneous QHS every night at bedtime 07/02/19 023 Inactive oxybutynin chloride 5 mg tablet RxNorm: 398466 Administer 1 Tablet(s) Oral QHS every night at bedtime 07/02/19 023 Inactive Miralax 17 gram oral powder packet RxNorm: 377688 Take 1 Packet Oral QD 07/02/19 023 Inactive hydrochlorothiazide 25 mg tablet RxNorm: 688203 Take 1 Tablet(s) Oral QD 07/02/19 023 Inactive oxycodone 5 mg tablet RxNorm: 7279551 Take 1 Tablet(s) Oral TID then discontinue and start belbuca (d/c 10mg TID) 07/02/19 023 Inactive stop after 7 days duloxetine 60 mg capsule,delayed release RxNorm: 883465 Take 2 Capsule(s) Oral QD 07/02/19 023 Inactive Narcan 4 mg/actuation nasal spray RxNorm: 7179681 Give 1 Crum Lynne Nasal UD as directed 1 spray contents of ONE device into nostril, call 911. May repeat once with 2nd device 07/02/19 23 023 Inactive magnesium oxide 400 mg (241.3 mg magnesium) tablet RxNorm: 456260 Give 1 Tablet(s) Oral BID 07/02/19 23 023 Inactive oxycodone 5 mg tablet RxNorm: 0924717 Take 2 Tablet(s) Oral TID PRN 06/04/19 23 023 Inactive azithromycin 250 mg tablet RxNorm: 581745 Take Tablet(s) Oral QD 2 Tablets PO QD x 1 Day - Then 1 Tablet PO QD x 4 Days 05/10/19 023 Inactive oxycodone 5 mg tablet RxNorm: 1630180 Take 2 Tablet(s) Oral TID /difficulty breathing 05/03/19 023 Inactive oxycodone 5 mg tablet RxNorm: 4961360 Take 2 Tablet(s) Oral TID /difficulty breathing 03/03/20 22 022 Inactive azithromycin 250 mg tablet RxNorm: 143266 Take Tablet(s) Oral QD 2 Tablets PO QD x 1 Day - Then 1 Tablet PO QD x 4 Days 05/10/19 023 Inactive zolpidem 5 mg tablet RxNorm: 724787 Take 1 Tablet(s) Oral QHS every night at bedtime as needed 03/28/19 023 Inactive Medication Administered No Medication Administered data Immunizations Vaccine Codes Dose Date Status Covid-19 (Adult) CVX: 229 1.0 12/28/2021 Influenza CVX: 197 1.0 12/28/2021 Covid-19 (Adult) CVX: 207 1.0 08/26/2021 Covid-19 (Adult) CVX: 208 1.0 11/14/2020 Covid-19 (Adult) CVX: 208 1.0 08/06/2020 Pneumococcal CVX: 33 1.0 02/17/2020 Influenza CVX: 135 1.0 03/12/2019 Pneumococcal CVX: 33 1.0 12/24/2018 Influenza CVX: 135 1.0 02/01/2018 Zoster CVX: 188 999 02/01/2018 Hepatitis B CVX: 43 1.0 03/07/2017 Influenza CVX: 135 1.0 03/07/2017 Pneumococcal CVX: 133 1.0 03/07/2017 Influenza CVX: 135 1.0 03/21/2016 Influenza CVX: 141 1.0 02/04/2015 Pneumococcal CVX: 33 1.0 10/16/2013 Influenza CVX: 140 1.0 12/20/2012 Influenza CVX: 140 1.0 04/02/2012 Influenza CVX: 140 1.0 01/19/2010 Influenza CVX: 140 1.0 02/17/2009 Influenza CVX: 141 1.0 01/06/2009 Influenza CVX: 141 1.0 12/27/2007 Tdap CVX: 115 1.0 02/17/2007 Tetanus, Diptheria, Pertussis CVX: 115 1.0 2006 Influenza CVX: 141 1.0 02/15/2007 Influenza CVX: 141 1.0 02/06/2006 Influenza CVX: 141 1.0 02/07/2005 Influenza CVX: 141 1.0 01/11/2005 Influenza CVX: 141 1.0 2004 Influenza CVX: 141 1.0 01/26/2003 Pneumococcal CVX: 33 1.0 01/26/2003 Pneumococcal CVX: 33 1.0 03/08/2002 Influenza CVX: 141 1.0 02/11/2002 Influenza CVX: 141 1.0 02/14/2001 Influenza CVX: 141 1.0 02/03/2000 Procedures Procedure Codes Date BEHAV CHNG SMOKING 3-[address]: 2 [id number] CPT-4: 26917 06/29/2022 Reason For Visit No Reason For Visit data Plan of Care Planned Activity Notes Codes Status Date Referral: [facility] WPtel: [id number] [place], [place] [id number] Referral Records Received 07/18/2022 Instructions Comment Date Rena is a resident a [facility] [place].?? Previously was seen by doctor in [place].?? First [facility] visit 03/10.?? Arthritis/pain complaints and anxiety are her biggest concerns.?? Johnnie just (in 2020). 2 sons - son Korey visits (From [place]).?? 08/23/2022
--- OUTSIDE RECORDS SUMMARY | 2022-12-08 12:44 | XMS_ITS | CCD ---
Author Name Yesika Adams PA-C Address [address] [place] [address] Phone Organization [facility] Phone Care Team Providers Care Sap Crm Developer Name Role Phone Yesika Adams PA-C Primary Care Provider Unavailabl e Unavailable Chronic Care Management Unavaila ble Summary Purpose DataExchange Insurance Providers Payer name Policy type / Coverage type Covered green party ID Effective Begin Date Effective End Date [place] Blue Cross/Blue Shield [id number] 2022 Unknown [place] [id number] 2022 Unknown Family history Mother Diagnosis Age At Onset Glaucoma Unknown Brother Diagnosis Age At Onset Visual disturbance/blindness Unknown Glaucoma Unknown Father Diagnosis Age At Onset Stomach cancer Unknown Social History Social History Element Codes Description Effec tive Dates Tobacco history SNOMED CT: 38016222 Current every day smoker 07/01/[address]: 354708442 No Alcohol Consum ption 07/01/2022 Allergies, Adverse Reactions, Alerts Substance Reaction Codes Entered Date Inactivated Date Status Bee Sting Unknown 03/03/2022 No Inactive Date Ac tive NSAIDS Unknown 03/03/2022 No Inactive Date Ac tive PENICILLINS Unknown 03/03/2022 No Inactive Date Active losartan RxNorm: 955387 03/03/2022 No Inactive Da te Active aspirin Unknown 03/03/2022 No Inactive Date Ac tive tramadol RxNorm: 35200 03/03/2022 No Inactive Marek e Active Other: Unknown 03/03/2022 No Inactive Date Ac tive VARENICLINE Unknown 03/03/2022 No Inactive Date Active Problems Condition Codes Effective Dates Condition St atus Hypertension ICD-10: I10 ICD-9: 401.9 09/28/2022 Active Injury due to fall, subseque nt encounter ICD-10: W19.XXXD ICD-9: V58.89 09/28/2022 Active 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, with long-term current use of insulin ICD-10: E11.59 ICD-9: 250.70 09/28/2022 Active Chronic pain ICD-10: G89.29 ICD-9: 338.29 08/31/2022 Active Stomach pain ICD-10: R10.9 ICD-9: [...] Headache ICD-10: R51.9 ICD-9: 784.0 03/03/2022 Active 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 ICD-10: Z79.4 03/03 Active Medications Medication Codes Instructions Start Date Stop Date Status Fill Instructions cholecalciferol (vitamin D3) 25 mcg (1,000 unit) tablet RxNorm: 150249 TAKE 1 TABLET BY MOUTH DAILY (1,000 UNITS) 09/14/19 23 024 Active 09/13/2022 PROACTIVE REFILL REQUEST FOR NEXT CYCLE PLEASE THANK YOU Systane Ultra 0.4 %-0.3 % eye drops RxNorm: 226810 Instill 1 Drop(s) Both eyes QID 09/06/19 No Stop Date Active Lantus Solostar U-100 Insulin 100 unit/mL (3 mL) subcutaneous pen RxNorm: 543266 Inject 20 Unit(s) Subcutaneous QHS every night at bedtime 09/01/19 No Stop Date Active Pen Needle 30 gauge x 5/16 RxNorm: Use as directed to administer insulin up to 3x daily 09/01/19 No Stop Date Active diclofenac 1 % topical gel RxNorm: 731069 Apply 4 Gram(s) Topical QID (bilateral knees or area of pain per patient's request) 09/01/19 No Stop Date Active acetaminophen 325 mg tablet RxNorm: 226816 Take 1 Tablet(s) Oral Q4H every four hours as needed 09/01/19 No Stop Date Active Humalog KwikPen (U-100) Insulin 100 unit/mL subcutaneous RxNorm: 4223961 Unit(s) Subcutaneous Inject per sliding scale BID before lunch and dinner 09/01/19 No Stop Date Active Aspercreme (lidocaine) 4 % topical patch RxNorm: 2923999 Apply 1 Patch Topical QD (on for 12 hours, off for 12 hours) 09/01/19 No Stop Date Active melatonin 3 mg tablet RxNorm: 799949 Take 2 Tablet(s) Oral QHS every night at bedtime as needed (may repeat once) 09/01/19 No Stop Date Active Januvia 100 mg tablet RxNorm: 541995 Take 1 Tablet(s) Oral QD 07/23/19 23 024 Active 2nd REQUEST FOR REFILLS 07-22-2022 NEED KIM PLEASE = THANK YOU duloxetine 60 mg capsule,delayed release RxNorm: 564686 Take 2 Capsule(s) Oral QD 07/23/19 23 024 Active 2nd REQUEST FOR REFILLS 07-22-2022 NEED KIM PLEASE = THANK YOU pantoprazole 40 mg tablet,delayed release RxNorm: 942518 TAKE 1 TABLET BY MOUTH EVERY MORNING BEFORE BREAKFAST 07/23/19 23 024 Active 2nd REQUEST FOR REFILLS 07-22-2022 NEED KIM PLEASE = THANK YOU magnesium oxide 400 mg (241.3 mg magnesium) tablet RxNorm: 961475 Take 1 Tablet(s) Oral BID 07/23/19 23 024 Active 2nd REQUEST FOR REFILLS 07-22-2022 NEED KIM PLEASE = THANK YOU acetaminophen 500 mg tablet RxNorm: 670729 Take 2 Tablet(s) Oral TID 07/23/19 23 024 Active 2nd REQUEST FOR REFILLS 07-22-2022 NEED KIM PLEASE = THANK YOU risperidone 2 mg tablet RxNorm: 186628 Take 1 Tablet(s) Oral BID 07/23/19 23 024 Active 2nd REQUEST FOR REFILLS 07-22-2022 NEED KIM PLEASE = THANK YOU hydrochlorothiazide 25 mg tablet RxNorm: 062664 Take 1 Tablet(s) Oral QD 07/23/19 23 024 Active 2nd REQUEST FOR REFILLS 07-22-2022 NEED KIM PLEASE = THANK YOU potassium chloride ER 10 mEq capsule,extended release RxNorm: 912950 TAKE 1 CAPSULE BY MOUTH TWICE DAILY WITH MEAL(S) 07/23/19 23 023 Inactive 2nd REQUEST FOR REFILLS 07-22-2022 NEED KIM PLEASE = THANK YOU buprenorphine HCl 2 mg sublingual tablet RxNorm: 382189 Take 1 Tablet(s) Sublingual TID 07/19/19 23 023 Inactive buprenorphine HCl 2 mg sublingual tablet RxNorm: 341033 Take 1 Tablet(s) Sublingual TID 07/19/19 23 023 Inactive oxycodone 5 mg tablet RxNorm: 6232767 Take 1 Tablet(s) Oral BID x7 days then decrease to 1 tab once daily x 7 days then d/c 07/09/19 23 023 Inactive latanoprost 0.005 % eye drops RxNorm: 434571 Take 1 Drop(s) Both eyes QHS every night at bedtime 07/07/19 23 024 Active buprenorphine 5 mcg/hour weekly transdermal patch RxNorm: 094056 Apply 1 Transdermal once every 7 days 07/06/19 23 023 Inactive zolpidem 5 mg tablet RxNorm: 712828 Take 1 Tablet(s) Oral QHS every night at bedtime 07/06/19 23 023 Inactive buprenorphine 5 mcg/hour weekly transdermal patch RxNorm: 655197 Apply 1 Transdermal once every 7 days 07/06/19 023 Inactive start after stops oxycodone. belbuca film not covered famotidine 20 mg tablet RxNorm: 981875 Give 1 Tablet(s) Oral QHS every night at bedtime 07/02/19 024 Active amlodipine 5 mg tablet RxNorm: 936272 Take 1 Tablet(s) Oral QD 07/02/19 024 Active torsemide 20 mg tablet RxNorm: 863549 Take 1 Tablet(s) Oral QAM every morning 07/02/19 024 Active atorvastatin 10 mg tablet RxNorm: 844634 Take 1 Tablet(s) Oral QHS every night at bedtime 07/02/19 024 Active aspirin 81 mg tablet,delayed release RxNorm: 223811 Take 1 Tablet(s) Oral QD 07/02/19 024 Active dorzolamide 22.3 mg-timolol 6.8 mg/mL eye drops RxNorm: 6805775 Apply 1 Drop(s) Both eyes BID 07/02/19 024 Active fluticasone propionate 50 mcg/actuation nasal spray,suspension RxNorm: 8644628 Lacrosse 2 Lacrosse Nasal QD - Daily both nostrils 07/02/19 024 Active acetaminophen 500 mg tablet RxNorm: 615984 Take 2 Tablet(s) Oral TID 07/02/19 023 Inactive nicotine 21 mg/24 hr daily transdermal patch RxNorm: 672258 Apply 1 Patch Transdermal QD Remove old patch prior to placing the new one 07/02/19 023 Inactive gabapentin 600 mg tablet RxNorm: 316242 Take 1 Tablet(s) Oral TID 07/02/19 023 Inactive risperidone 2 mg tablet RxNorm: 743556 Take 1 Tablet(s) Oral BID 07/02/19 023 Inactive pantoprazole 40 mg intravenous solution RxNorm: 489667 Take 1 Tablet(s) Intravenous QAM every morning 04 023 Inactive Januvia 100 mg tablet RxNorm: 744742 Take 1 Tablet(s) Oral QD 07/02/19 023 Inactive potassium chloride ER 10 mEq tablet,extended release RxNorm: 184261 Take 1 Tablet(s) Oral BID 07/02/19 023 Inactive Belbuca 75 mcg buccal film RxNorm: 5074859 Take 1/2 film (37.5mcg) (cut diagonally) BID (start AFTER stopping oxycodone) 07/02/19 023 Inactive start belbuca in 7 days AFTER patient stops oxycodone latanoprost 0.005 % eye drops RxNorm: 079822 Take 1 Drop(s) Both eyes QHS every night at bedtime 07/02/19 023 Inactive Systane Ultra 0.4 %-0.3 % eye drops RxNorm: 811248 Apply 1 Drop(s) Both eyes QID 07/02/19 023 Inactive Lantus Solostar U-100 Insulin 100 unit/mL (3 mL) subcutaneous pen RxNorm: 576519 Take 40 Unit(s) Subcutaneous QHS every night at bedtime 07/02/19 023 Inactive oxybutynin chloride 5 mg tablet RxNorm: 978530 Administer 1 Tablet(s) Oral QHS every night at bedtime 07/02/19 023 Inactive Miralax 17 gram oral powder packet RxNorm: 010508 Take 1 Packet Oral QD 07/02/19 023 Inactive hydrochlorothiazide 25 mg tablet RxNorm: 239747 Take 1 Tablet(s) Oral QD 07/02/19 023 Inactive oxycodone 5 mg tablet RxNorm: 6647459 Take 1 Tablet(s) Oral TID then discontinue and start belbuca (d/c 10mg TID) 07/02/19 23 023 Inactive stop after 7 days duloxetine 60 mg capsule,delayed release RxNorm: 059194 Take 2 Capsule(s) Oral QD 07/02/19 23 023 Inactive Narcan 4 mg/actuation nasal spray RxNorm: 9407928 Give 1 Lacrosse Nasal UD as directed 1 spray contents of ONE device into nostril, call 911. May repeat once with 2nd device 07/02/19 23 023 Inactive magnesium oxide 400 mg (241.3 mg magnesium) tablet RxNorm: 030683 Give 1 Tablet(s) Oral BID 07/02/19 23 023 Inactive cholecalciferol (vitamin D3) 25 mcg (1,000 unit) tablet RxNorm: 916606 Take 1 Tablet(s) Oral QAM every morning 07/02/19 23 023 Inactive oxycodone 5 mg tablet RxNorm: 4990370 Take 2 Tablet(s) Oral TID PRN 06/04/19 023 Inactive azithromycin 250 mg tablet RxNorm: 215357 Take Tablet(s) Oral QD 2 Tablets PO QD x 1 Day - Then 1 Tablet PO QD x 4 Days 05/10/19 023 Inactive oxycodone 5 mg tablet RxNorm: 0118621 Take 2 Tablet(s) Oral TID /difficulty breathing 05/03/19 23 023 Inactive oxycodone 5 mg tablet RxNorm: 5730919 Take 2 Tablet(s) Oral TID /difficulty breathing 03/03/20 22 022 Inactive azithromycin 250 mg tablet RxNorm: 781976 Take Tablet(s) Oral QD 2 Tablets PO QD x 1 Day - Then 1 Tablet PO QD x 4 Days 05/10/19 023 Inactive zolpidem 5 mg tablet RxNorm: 673377 Take 1 Tablet(s) Oral QHS every night [...] 1.0 02/14/2001 Influenza CVX: 141 1.0 02/03/2000 Results Observation Observation Code Item Item Code Result Date Service Location CBC without Differential / Platelets [facility]OD[facility] Hematocrit 4544-3 43.6 % 10/02/19 Unknown CBC without Differential / Platelets [facility] Hemoglobin 718-7 13.0 g/dL 10/02/19 Unknown CBC without Differential / Platelets [facility] RBC 4.15 x10^6/UL 10/02/19 Unknown CBC without Differential / Platelets [facility] MCH 31.3 pg 10/02/19 Unknown CBC without Differential / Platelets [facility] MCHC 29.8 g/dL 10/02/19 Unknown CBC without Differential / Platelets [facility] MCV 787-2 105.1 % 10/02/19 Unknown CBC without Differential / Platelets [facility] Platelets 777-3 206 x10E3/uL 10/02/19 Unknown CBC without Differential / Platelets [facility] RDW 13.5 %binding 10/02/19 Unknown CBC without Differential / Platelets [facility] WBC 6690-2 8.21 x10E3/uL 10/02/19 Unknown Hemoglobin A1c HEMOGLOBA Hemoglobin A1c 65246-4 7.4 %A1c 10/02/19 Unknown Basic Metabolic Panel (BMP) BMP Blood Urea Nitrogen (BUN) 10 mg/dL 10/02/19 Unknown Basic Metabolic Panel (BMP) BMP BUN/CREATININE RATIO 10.99 ratio 10/02/19 Unknown Basic Metabolic Panel (BMP) BMP Calcium (Ca) 27502-8 9.9 mg/dL 10/02/19 Unknown Basic Metabolic Panel (BMP) BMP Carbon Dioxide (ECO2) 27 mmol/L 10/02/19 Unknown Basic Metabolic Panel (BMP) BMP Chloride (Cl) 2075-0 100 mmol/L 10/02/19 Unknown Basic Metabolic Panel (BMP) BMP eGFR 67.87 mL/min/1.7 3m2 10/02/19 Unknown Basic Metabolic Panel (BMP) BMP Creatinine 2160-0 0.91 mg/dL 10/02/19 Unknown Basic Metabolic Panel (BMP) BMP Glucose 252 mg/dL 10/02/19 Unknown Basic Metabolic Panel (BMP) BMP Potassium (K) 2823-3 3.4 mmol/L 10/02/19 Unknown Basic Metabolic Panel (BMP) BMP Sodium (Na) 2951-2 139 mmol/L 10/02/19 Unknown PDFReport PDFReport PDFReport 10/01/19 23 Unknown PDFReport PDFReport PDFReport 10/01/19 23 Unknown Procedures Procedure Codes Date SYST BP >/= 140 MM HG CPT-4: 3077F 09/28/2022 DIAST BP <80 MM HG CPT-4: 3078F 09/28/2022 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 CPT-4: G0436 2022 BEHAV CHNG SMOKING 3-[address]: 2 82751147 CPT-4: 14893 06/29/2022 Vital Signs Date Vital 09/28/2022 Blood Pressure 1: 144/73 Code: 8 480-6 Heart Rate 1: 106 bpm Code: 8867-4 Reason For Visit No Reason For Visit data Encounters Encounter Performer Location Location Address Codes Date ([address]) Home or Residence Visit Est Pt - Moderate Level, 40 mins Diagnosis: Injury due to fall, subsequent encounter[ICD10: W19.XXXD] Diagnosis: Hypertension[ICD10: I10] Diagnosis: Type 2 diabetes mellitus with other circulatory complication, with long-term current use of insulin[ICD10: E11.59] Yesika Adams [facility] [address] [place] [address] CPT-4: 32169 09/28/2022 Plan of Care Planned Activity Notes Codes Status Date Patient Education: Patient M edication Summary Completed 09/28/2022 Patient Education: Influenza Vaccine Completed 09/28/2022 Patient Education: Smoking Cessation Completed 09/28/2022 Appointment: Yesika Adams WPtel: [address] [place] [address] 300 [id number] [place] Telehealth- Est Pt 08/11/2022 Referral: [facility] WPtel: [id number] [address] 100 [id number] [place] Referral Records Received 07/18/2022 Instructions Comment Date Rena is a resident a [facility].?? Previously was seen by doctor in [place].?? First BPS visit 03/10.?? Arthritis/pain complaints and anxiety are her biggest concerns.?? Johnnie just (in 2020). 2 sons - son Korey visits (From [place]).?? 08/23/2022 Injury due to fall, subseque nt encounter right wrist sprain per patient and facility nurse, has f/u with ortho - defer to them at this time Hypertension Continue torsemide 20mg QD, HCTZ 25mg QD, amlodipine 5mg QD, asa81 and statin. Monitor electrolytes at least 2x/year and kidney function due to being on torsemide. Due for labs today, ordering BMP Diabetes Due for a1c, ordering today. ??Continue lantus 20mg QHS and humalog SS, januvia 100mg QD. Goal a1c <8% due to age and risks of falls if hypoglycemia occurs.?? . 09/28/2022
--- OUTSIDE RECORDS SUMMARY | 2022-12-08 12:44 | XMS_ITS | CCD ---
Author Name Unknown Organization Unknown Care Team Providers Care Weight Recorder Name Role Phone Donn MICHAUD, Miguel A Primary Care Provider Unavaila ble Unavailable Chronic Care Management Unavaila ble Summary Purpose DataExchange Insurance Providers Payer name Policy type / Coverage type Covered constitution party ID Effective Begin Date Effective End Date [place] Blue Cross/Blue Shield [id number] 2022 Unknown [place] Blue [place]/Blue [place] [id number] 2022 Unknown Family history Mother Diagnosis Age At Onset Glaucoma Unknown Brother Diagnosis Age At Onset Visual disturbance/blindness Unknown Glaucoma Unknown Father Diagnosis Age At Onset Stomach cancer Unknown Social History Social History Element Codes Description Effec tive Dates Tobacco history SNOMED CT: 14965275 Current every day smoker 07/01/[address]: 510133179 No Alcohol Consum ption 07/01/2022 Allergies, Adverse Reactions, Alerts Substance Reaction Codes Entered Date Inactivated Date Status Bee Sting Unknown 03/03/2022 No Inactive Date Ac tive NSAIDS Unknown 03/03/2022 No Inactive Date Ac tive PENICILLINS Unknown 03/03/2022 No Inactive Date Active losartan RxNorm: 289532 03/03/2022 No Inactive Da te Active aspirin Unknown 03/03/2022 No Inactive Date Ac tive tramadol RxNorm: 41897 03/03/2022 No Inactive Marek e Active Other: [...] Headache ICD-10: R51.9 ICD-9: 784.0 03/03/2022 Active longterm (current) use of insulin ICD-10: Z79.4 03/03 Active Medications Medication Codes Instructions Start Date Stop Date Status Fill Instructions Pen Needle 30 gauge x 08/02 RxNorm: Use 1 Unit(s) TID Use as directed to administer insulin up to 3x daily 10/12/19 23 023 Inactive cholecalciferol (vitamin D3) 25 mcg (1,000 unit) tablet RxNorm: 857040 TAKE 1 TABLET BY MOUTH DAILY (1,000 UNITS) 09/14/19 23 024 Active 09/13/2022 PROACTIVE REFILL REQUEST FOR NEXT CYCLE PLEASE THANK YOU Systane Ultra 0.4 %-0.3 % eye drops RxNorm: 148044 Instill 1 Drop(s) Both eyes QID 09/06/19 No Stop Date Active Lantus Solostar U-100 Insulin 100 unit/mL (3 mL) subcutaneous pen RxNorm: 911188 Inject 20 Unit(s) Subcutaneous QHS every night at bedtime 09/01/19 No Stop Date Active Pen Needle 30 gauge x 5/16 RxNorm: Use as directed to administer insulin up to 3x daily 09/01/19 023 Inactive diclofenac 1 % topical gel RxNorm: 697829 Apply 4 Gram(s) Topical QID (bilateral knees or area of pain per patient's request) 09/01/19 No Stop Date Active acetaminophen 325 mg tablet RxNorm: 347261 Take 1 Tablet(s) Oral Q4H every four hours as needed 09/01/19 No Stop Date Active Humalog KwikPen (U-100) Insulin 100 unit/mL subcutaneous RxNorm: 0440010 Unit(s) Subcutaneous Inject per sliding scale BID before lunch and dinner 09/01/19 No Stop Date Active Aspercreme (lidocaine) 4 % topical patch RxNorm: 3551892 Apply 1 Patch Topical QD (on for 12 hours, off for 12 hours) 09/01/19 No Stop Date Active melatonin 3 mg tablet RxNorm: 928542 Take 2 Tablet(s) Oral QHS every night at bedtime as needed (may repeat once) 09/01/19 No Stop Date Active Januvia 100 mg tablet RxNorm: 578540 Take 1 Tablet(s) Oral QD 07/23/19 23 024 Active 2nd REQUEST FOR REFILLS 07-22-2022 NEED KIM PLEASE = THANK YOU duloxetine 60 mg capsule,delayed release RxNorm: 525523 Take 2 Capsule(s) Oral QD 07/23/19 23 024 Active 2nd REQUEST FOR REFILLS 07-22-2022 NEED KIM PLEASE = THANK YOU pantoprazole 40 mg tablet,delayed release RxNorm: 560100 TAKE 1 TABLET BY MOUTH EVERY MORNING BEFORE BREAKFAST 07/23/19 23 024 Active 2nd REQUEST FOR REFILLS 07-22-2022 NEED KIM PLEASE = THANK YOU magnesium oxide 400 mg (241.3 mg magnesium) tablet RxNorm: 007828 Take 1 Tablet(s) Oral BID 07/23/19 23 024 Active 2nd REQUEST FOR REFILLS 07-22-2022 NEED KIM PLEASE = THANK YOU acetaminophen 500 mg tablet RxNorm: 978054 Take 2 Tablet(s) Oral TID 07/23/19 23 024 Active 2nd REQUEST FOR REFILLS 07-22-2022 NEED KIM PLEASE = THANK YOU risperidone 2 mg tablet RxNorm: 667543 Take 1 Tablet(s) Oral BID 07/23/19 23 024 Active 2nd REQUEST FOR REFILLS 07-22-2022 NEED KIM PLEASE = THANK YOU hydrochlorothiazide 25 mg tablet RxNorm: 328527 Take 1 Tablet(s) Oral QD 07/23/19 024 Active 2nd REQUEST FOR REFILLS 07-22-2022 NEED KIM PLEASE = THANK YOU potassium chloride ER 10 mEq capsule,extended release RxNorm: 588611 TAKE 1 CAPSULE BY MOUTH TWICE DAILY WITH MEAL(S) 07/23/19 23 023 Inactive 2nd REQUEST FOR REFILLS 07-22-2022 NEED KIM PLEASE = THANK YOU buprenorphine HCl 2 mg sublingual tablet RxNorm: 005919 Take 1 Tablet(s) Sublingual TID 07/19/19 23 023 Inactive buprenorphine HCl 2 mg sublingual tablet RxNorm: 092187 Take 1 Tablet(s) Sublingual TID 07/19/19 23 023 Inactive oxycodone 5 mg tablet RxNorm: 9866381 Take 1 Tablet(s) Oral BID x7 days then decrease to 1 tab once daily x 7 days then d/c 07/09/19 23 023 Inactive latanoprost 0.005 % eye drops RxNorm: 967030 Take 1 Drop(s) Both eyes QHS every night at bedtime 07/07/19 23 024 Active buprenorphine 5 mcg/hour weekly transdermal patch RxNorm: 781959 Apply 1 Transdermal once every 7 days 07/06/19 23 023 Inactive zolpidem 5 mg tablet RxNorm: 443106 Take 1 Tablet(s) Oral QHS every night at bedtime 07/06/19 23 023 Inactive buprenorphine 5 mcg/hour weekly transdermal patch RxNorm: 401071 Apply 1 Transdermal once every 7 days 07/06/19 023 Inactive start after stops oxycodone. belbuca film not covered famotidine 20 mg tablet RxNorm: 364198 Give 1 Tablet(s) Oral QHS every night at bedtime 07/02/19 024 Active amlodipine 5 mg tablet RxNorm: 838865 Take 1 Tablet(s) Oral QD 07/02/19 023 Inactive torsemide 20 mg tablet RxNorm: 896004 Take 1 Tablet(s) Oral QAM every morning 07/02/19 024 Active atorvastatin 10 mg tablet RxNorm: 083845 Take 1 Tablet(s) Oral QHS every night at bedtime 07/02/19 024 Active aspirin 81 mg tablet,delayed release RxNorm: 315242 Take 1 Tablet(s) Oral QD 07/02/19 023 Inactive dorzolamide 22.3 mg-timolol 6.8 mg/mL eye drops RxNorm: 5868403 Apply 1 Drop(s) Both eyes BID 07/02/19 024 Active fluticasone propionate 50 mcg/actuation nasal spray,suspension RxNorm: 8645542 Orwell 2 Orwell Nasal QD - Daily both nostrils 07/02/19 024 Active acetaminophen 500 mg tablet RxNorm: 102847 Take 2 Tablet(s) Oral TID 07/02/19 023 Inactive nicotine 21 mg/24 hr daily transdermal patch RxNorm: 601326 Apply 1 Patch Transdermal QD Remove old patch prior to placing the new one 07/02/19 023 Inactive gabapentin 600 mg tablet RxNorm: 318764 Take 1 Tablet(s) Oral TID 07/02/19 023 Inactive risperidone 2 mg tablet RxNorm: 207521 Take 1 Tablet(s) Oral BID 07/02/19 023 Inactive pantoprazole 40 mg intravenous solution RxNorm: 813594 Take 1 Tablet(s) Intravenous QAM every morning 07/02/19 23 023 Inactive Januvia 100 mg tablet RxNorm: 767659 Take 1 Tablet(s) Oral QD 07/02/19 023 Inactive potassium chloride ER 10 mEq tablet,extended release RxNorm: 507142 Take 1 Tablet(s) Oral BID 07/02/19 023 Inactive Belbuca 75 mcg buccal film RxNorm: 8569854 Take 1/2 film (37.5mcg) (cut diagonally) BID (start AFTER stopping oxycodone) 07/02/19 023 Inactive start belbuca in 7 days AFTER patient stops oxycodone latanoprost 0.005 % eye drops RxNorm: 596425 Take 1 Drop(s) Both eyes QHS every night at bedtime 07/02/19 023 Inactive Systane Ultra 0.4 %-0.3 % eye drops RxNorm: 841270 Apply 1 Drop(s) Both eyes QID 07/02/19 023 Inactive Lantus Solostar U-100 Insulin 100 unit/mL (3 mL) subcutaneous pen RxNorm: 302763 Take 40 Unit(s) Subcutaneous QHS every night at bedtime 07/02/19 023 Inactive oxybutynin chloride 5 mg tablet RxNorm: 882211 Administer 1 Tablet(s) Oral QHS every night at bedtime 07/02/19 023 Inactive Miralax 17 gram oral powder packet RxNorm: 963004 Take 1 Packet Oral QD 07/02/19 023 Inactive hydrochlorothiazide 25 mg tablet RxNorm: 795211 Take 1 Tablet(s) Oral QD 07/02/19 023 Inactive oxycodone 5 mg tablet RxNorm: 2331075 Take 1 Tablet(s) Oral TID then discontinue and start belbuca (d/c 10mg TID) 07/02/19 23 023 Inactive stop after 7 days duloxetine 60 mg capsule,delayed release RxNorm: 575121 Take 2 Capsule(s) Oral QD 07/02/19 023 Inactive Narcan 4 mg/actuation nasal spray RxNorm: 9973388 Give 1 Orwell Nasal UD as directed 1 spray contents of ONE device into nostril, call 911. May repeat once with 2nd device 07/02/19 23 023 Inactive magnesium oxide 400 mg (241.3 mg magnesium) tablet RxNorm: 436809 Give 1 Tablet(s) Oral BID 07/02/19 23 023 Inactive cholecalciferol (vitamin D3) 25 mcg (1,000 unit) tablet RxNorm: 797335 Take 1 Tablet(s) Oral QAM every morning 07/02/19 23 023 Inactive oxycodone 5 mg tablet RxNorm: 8955986 Take 2 Tablet(s) Oral TID PRN 06/04/19 023 Inactive azithromycin 250 mg tablet RxNorm: 623065 Take Tablet(s) Oral QD 2 Tablets PO QD x 1 Day - Then 1 Tablet PO QD x 4 Days 05/10/19 023 Inactive oxycodone 5 mg tablet RxNorm: 5065444 Take 2 Tablet(s) Oral TID /difficulty breathing 05/03/19 023 Inactive oxycodone 5 mg tablet RxNorm: 4651716 Take 2 Tablet(s) Oral TID /difficulty breathing 03/03/20 22 022 Inactive azithromycin 250 mg tablet RxNorm: 880999 Take Tablet(s) Oral QD 2 Tablets PO QD x 1 Day - Then 1 Tablet PO QD x 4 Days 05/10/19 23 023 Inactive zolpidem 5 mg tablet RxNorm: 164432 Take 1 Tablet(s) Oral QHS every night [...] CHNG SMOKING 3-[address]: 2 12980729 CPT-4: 36375 06/29/2022 Reason For Visit No Reason For Visit data Plan of Care Planned Activity Notes Codes Status Date Referral: [facility] WPtel: [phone] [place], [place] [id number] [place] Referral Records Received 07/18/2022 Instructions Comment Date Rena is a resident a [facility].?? Previously was seen by doctor in [place].?? First BPS visit 03/10.?? Arthritis/pain complaints and anxiety are her biggest concerns.?? Johnnie just (in 2020). 2 sons - son Korey visits (From [place]).?? 10/27/2022
--- OUTSIDE RECORDS SUMMARY | 2022-12-08 12:45 | XMS_ITS | CCD ---
Author Name Unknown Organization Unknown Care Team Providers Care Tooth Clerk Name Role Phone Donn MICHAUD, Miguel A Primary Care Provider Unavaila ble Unavailable Chronic Care Management Unavaila ble Summary Purpose DataExchange Insurance Providers Payer name Policy type / Coverage type Covered democrat ID Effective Begin Date Effective End Date [place] Blue Cross/Blue Shield [id number] 2022 Unknown [place] [id number] 2022 Unknown Family history Mother Diagnosis Age At Onset Glaucoma Unknown Brother Diagnosis Age At Onset Visual disturbance/blindness Unknown Glaucoma Unknown Father Diagnosis Age At Onset Stomach cancer Unknown Social History Social History Element Codes Description Effec tive Dates Tobacco history SNOMED CT: 77911447 Current every day smoker 07/01/[address]: 070085975 No Alcohol Consum ption 07/01/2022 Allergies, Adverse Reactions, Alerts Substance Reaction Codes Entered Date Inactivated Date Status Bee Sting Unknown 03/03/2022 No Inactive Date Ac tive NSAIDS Unknown 03/03/2022 No Inactive Date Ac tive PENICILLINS Unknown 03/03/2022 No Inactive Date Active losartan RxNorm: 623632 03/03/2022 No Inactive Da te Active aspirin Unknown 03/03/2022 No Inactive Date Ac tive tramadol RxNorm: 75485 03/03/2022 No Inactive Marek e Active Other: [...] Headache ICD-10: R51.9 ICD-9: 784.0 03/03/2022 Active assisted (current) use of insulin ICD-10: Z79.4 03/03 Active Medications Medication Codes Instructions Start Date Stop Date Status Fill Instructions nicotine 21 mg/24 hr daily transdermal patch RxNorm: 779846 APPLY 1 PATCH ONCE DAILY 10/18/19 023 Inactive Pen Needle 30 gauge x 16 RxNorm: Use 1 Unit(s) TID Use as directed to administer insulin up to 3x daily 10/12/19 23 023 Inactive cholecalciferol (vitamin D3) 25 mcg (1,000 unit) tablet RxNorm: 671667 TAKE 1 TABLET BY MOUTH DAILY (1,000 UNITS) 09/14/1924/2 024 Active 09/13/2022 PROACTIVE REFILL REQUEST FOR NEXT CYCLE PLEASE THANK YOU Systane Ultra 0.4 %-0.3 % eye drops RxNorm: 457648 Instill 1 Drop(s) Both eyes QID 09/06/19 No Stop Date Active Lantus Solostar U-100 Insulin 100 unit/mL (3 mL) subcutaneous pen RxNorm: 344870 Inject 20 Unit(s) Subcutaneous QHS every night at bedtime 09/01/19 No Stop Date Active diclofenac 1 % topical gel RxNorm: 400912 Apply 4 Gram(s) Topical QID (bilateral knees or area of pain per patient's request) 09/01/19 No Stop Date Active acetaminophen 325 mg tablet RxNorm: 122313 Take 1 Tablet(s) Oral Q4H every four hours as needed 09/01/19 No Stop Date Active Humalog KwikPen (U-100) Insulin 100 unit/mL subcutaneous RxNorm: 5982291 Unit(s) Subcutaneous Inject per sliding scale BID before lunch and dinner 09/01/19 No Stop Date Active Aspercreme (lidocaine) 4 % topical patch RxNorm: 7190561 Apply 1 Patch Topical QD (on for 12 hours, off for 12 hours) 09/01/19 No Stop Date Active melatonin 3 mg tablet RxNorm: 277718 Take 2 Tablet(s) Oral QHS every night at bedtime as needed (may repeat once) 09/01/19 No Stop Date Active Pen Needle 30 gauge x 5/16 RxNorm: Use as directed to administer insulin up to 3x daily 09/01/19 23 023 Inactive Januvia 100 mg tablet RxNorm: 920147 Take 1 Tablet(s) Oral QD 07/23/19 23 024 Active 2nd REQUEST FOR REFILLS 07-22-2022 NEED KIM PLEASE = THANK YOU duloxetine 60 mg capsule,delayed release RxNorm: 989371 Take 2 Capsule(s) Oral QD 07/23/19 23 024 Active 2nd REQUEST FOR REFILLS 07-22-2022 NEED KIM PLEASE = THANK YOU pantoprazole 40 mg tablet,delayed release RxNorm: 385832 TAKE 1 TABLET BY MOUTH EVERY MORNING BEFORE BREAKFAST 07/23/19 23 024 Active 2nd REQUEST FOR REFILLS 07-22-2022 NEED KIM PLEASE = THANK YOU magnesium oxide 400 mg (241.3 mg magnesium) tablet RxNorm: 299615 Take 1 Tablet(s) Oral BID 07/23/19 23 024 Active 2nd REQUEST FOR REFILLS 07-22-2022 NEED KIM PLEASE = THANK YOU acetaminophen 500 mg tablet RxNorm: 964840 Take 2 Tablet(s) Oral TID 07/23/19 23 024 Active 2nd REQUEST FOR REFILLS 07-22-2022 NEED KIM PLEASE = THANK YOU risperidone 2 mg tablet RxNorm: 445435 Take 1 Tablet(s) Oral BID 07/23/19 23 024 Active 2nd REQUEST FOR REFILLS 07-22-2022 NEED KIM PLEASE = THANK YOU hydrochlorothiazide 25 mg tablet RxNorm: 054911 Take 1 Tablet(s) Oral QD 07/23/19 23 024 Active 2nd REQUEST FOR REFILLS 07-22-2022 NEED KIM PLEASE = THANK YOU potassium chloride ER 10 mEq capsule,extended release RxNorm: 488439 TAKE 1 CAPSULE BY MOUTH TWICE DAILY WITH MEAL(S) 07/23/19 23 023 Inactive 2nd REQUEST FOR REFILLS 07-22-2022 NEED KIM PLEASE = THANK YOU buprenorphine HCl 2 mg sublingual tablet RxNorm: 533294 Take 1 Tablet(s) Sublingual TID 07/19/19 23 023 Inactive buprenorphine HCl 2 mg sublingual tablet RxNorm: 140661 Take 1 Tablet(s) Sublingual TID 07/19/19 23 023 Inactive oxycodone 5 mg tablet RxNorm: 7892755 Take 1 Tablet(s) Oral BID x7 days then decrease to 1 tab once daily x 7 days then d/c 07/09/19 23 023 Inactive latanoprost 0.005 % eye drops RxNorm: 433417 Take 1 Drop(s) Both eyes QHS every night at bedtime 07/07/19 23 024 Active buprenorphine 5 mcg/hour weekly transdermal patch RxNorm: 894219 Apply 1 Transdermal once every 7 days 07/06/19 23 023 Inactive zolpidem 5 mg tablet RxNorm: 062374 Take 1 Tablet(s) Oral QHS every night at bedtime 07/06/19 023 Inactive buprenorphine 5 mcg/hour weekly transdermal patch RxNorm: 859277 Apply 1 Transdermal once every 7 days 07/06/19 023 Inactive start after stops oxycodone. belbuca film not covered famotidine 20 mg tablet RxNorm: 038031 Give 1 Tablet(s) Oral QHS every night at bedtime 07/02/19 024 Active amlodipine 5 mg tablet RxNorm: 569500 Take 1 Tablet(s) Oral QD 07/02/19 023 Inactive torsemide 20 mg tablet RxNorm: 417367 Take 1 Tablet(s) Oral QAM every morning 07/02/19 024 Active atorvastatin 10 mg tablet RxNorm: 264081 Take 1 Tablet(s) Oral QHS every night at bedtime 07/02/19 024 Active aspirin 81 mg tablet,delayed release RxNorm: 740513 Take 1 Tablet(s) Oral QD 07/02/19 023 Inactive dorzolamide 22.3 mg-timolol 6.8 mg/mL eye drops RxNorm: 0998355 Apply 1 Drop(s) Both eyes BID 07/02/19 024 Active fluticasone propionate 50 mcg/actuation nasal spray,suspension RxNorm: 6553156 [place] 2 [place] Nasal QD - Daily both nostrils 07/02/19 024 Active acetaminophen 500 mg tablet RxNorm: 597373 Take 2 Tablet(s) Oral TID 07/02/19 023 Inactive nicotine 21 mg/24 hr daily transdermal patch RxNorm: 362428 Apply 1 Patch Transdermal QD Remove old patch prior to placing the new one 07/02/19 023 Inactive gabapentin 600 mg tablet RxNorm: 207138 Take 1 Tablet(s) Oral TID 07/02/19 23 023 Inactive risperidone 2 mg tablet RxNorm: 210760 Take 1 Tablet(s) Oral BID 07/02/19 023 Inactive pantoprazole 40 mg intravenous solution RxNorm: 289981 Take 1 Tablet(s) Intravenous QAM every morning 07/02/19 023 Inactive Januvia 100 mg tablet RxNorm: 564836 Take 1 Tablet(s) Oral QD 07/02/19 023 Inactive potassium chloride ER 10 mEq tablet,extended release RxNorm: 525904 Take 1 Tablet(s) Oral BID 07/02/19 023 Inactive Belbuca 75 mcg buccal film RxNorm: 8057756 Take 1/2 film (37.5mcg) (cut diagonally) BID (start AFTER stopping oxycodone) 07/02/19 023 Inactive start belbuca in 7 days AFTER patient stops oxycodone latanoprost 0.005 % eye drops RxNorm: 643338 Take 1 Drop(s) Both eyes QHS every night at bedtime 07/02/19 023 Inactive Systane Ultra 0.4 %-0.3 % eye drops RxNorm: 236468 Apply 1 Drop(s) Both eyes QID 07/02/19 023 Inactive Lantus Solostar U-100 Insulin 100 unit/mL (3 mL) subcutaneous pen RxNorm: 909938 Take 40 Unit(s) Subcutaneous QHS every night at bedtime 07/02/19 023 Inactive oxybutynin chloride 5 mg tablet RxNorm: 107779 Administer 1 Tablet(s) Oral QHS every night at bedtime 07/02/19 023 Inactive Miralax 17 gram oral powder packet RxNorm: 949705 Take 1 Packet Oral QD 07/02/19 023 Inactive hydrochlorothiazide 25 mg tablet RxNorm: 225141 Take 1 Tablet(s) Oral QD 07/02/19 023 Inactive oxycodone 5 mg tablet RxNorm: 2320344 Take 1 Tablet(s) Oral TID then discontinue and start belbuca (d/c 10mg TID) 07/02/19 23 023 Inactive stop after 7 days duloxetine 60 mg capsule,delayed release RxNorm: 802384 Take 2 Capsule(s) Oral QD 07/02/19 23 023 Inactive Narcan 4 mg/actuation nasal spray RxNorm: 4562413 Give 1 [place] Nasal UD as directed 1 spray contents of ONE device into nostril, call 911. May repeat once with 2nd device 07/02/19 23 023 Inactive magnesium oxide 400 mg (241.3 mg magnesium) tablet RxNorm: 999204 Give 1 Tablet(s) Oral BID 07/02/19 023 Inactive cholecalciferol (vitamin D3) 25 mcg (1,000 unit) tablet RxNorm: 043978 Take 1 Tablet(s) Oral QAM every morning 07/02/19 023 Inactive oxycodone 5 mg tablet RxNorm: 9847107 Take 2 Tablet(s) Oral TID PRN 06/04/19 023 Inactive azithromycin 250 mg tablet RxNorm: 191071 Take Tablet(s) Oral QD 2 Tablets PO QD x 1 Day - Then 1 Tablet PO QD x 4 Days 05/10/19 23 023 Inactive oxycodone 5 mg tablet RxNorm: 9983579 Take 2 Tablet(s) Oral TID /difficulty breathing 05/03/19 023 Inactive oxycodone 5 mg tablet RxNorm: 8374353 Take 2 Tablet(s) Oral TID /difficulty breathing 03/03/20 22 022 Inactive azithromycin 250 mg tablet RxNorm: 067922 Take Tablet(s) Oral QD 2 Tablets PO QD x 1 Day - Then 1 Tablet PO QD x 4 Days 05/10/19 23 023 Inactive zolpidem 5 mg tablet RxNorm: 793187 Take 1 Tablet(s) Oral QHS every night [...] CHNG SMOKING 3-[address]: 2 89525245 CPT-4: 02970 06/29/2022 Reason For Visit No Reason For Visit data Plan of Care Planned Activity Notes Codes Status Date Referral: [facility] WPtel: [phone] [id number] Referral Records Received 07/18/2022 Instructions Comment Date Rena is a resident a [facility].?? Previously was seen by doctor in [place].?? First BPS visit 03/10.?? Arthritis/pain complaints and anxiety are her biggest concerns.?? Johnnie just (in 2020). 2 sons - son Korey visits (From [place]).?? 10/27/2022
--- OUTSIDE RECORDS SUMMARY | 2022-12-08 12:45 | XMS_ITS | CCD ---
Author Name Yesika Adams PA-C Address [address] [place] [address] Phone Organization [facility] Phone Care Team Providers Care Certified Adapted Physical Educator Name Role Phone Donn MICHAUD, Miguel A Primary Care Provider Unavaila ble Unavailable Chronic Care Management Unavaila ble Summary Purpose DataExchange Insurance Providers Payer name Policy type / Coverage type Covered republican ID Effective Begin Date Effective End Date [place] Blue Cross/Blue Shield [id number] 2022 Unknown [place] [id number] 2022 Unknown Family history Mother Diagnosis Age At Onset Glaucoma Unknown Brother Diagnosis Age At Onset Visual disturbance/blindness Unknown Glaucoma Unknown Father Diagnosis Age At Onset Stomach cancer Unknown Social History Social History Element Codes Description Effec tive Dates Tobacco history SNOMED CT: 74815120 Current every day smoker 07/01/[address]: 129386713 No Alcohol Consum ption 07/01/2022 Allergies, Adverse Reactions, Alerts Substance Reaction Codes Entered Date Inactivated Date Status Bee Sting Unknown 03/03/2022 No Inactive Date Ac tive NSAIDS Unknown 03/03/2022 No Inactive Date Ac tive PENICILLINS Unknown 03/03/2022 No Inactive Date Active losartan RxNorm: 942754 03/03/2022 No Inactive Da te Active aspirin Unknown 03/03/2022 No Inactive Date Ac tive tramadol RxNorm: 98276 03/03/2022 No Inactive Marek e Active Other: Unknown 03/03/2022 No Inactive Date Ac tive VARENICLINE Unknown 03/03/2022 No Inactive Date Active Problems Condition Codes Effective Dates Condition St atus Hypertension ICD-10: I10 ICD-9: 401.9 10/26/2022 Active 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, with long-term current use of insulin ICD-10: E11.59 ICD-9: 250.70 10/26/2022 Active Injury due to fall, subseque nt encounter ICD-10: W19.XXXD ICD-9: V58.89 09/28/2022 Active Chronic pain ICD-10: G89.29 ICD-9: [...] Headache ICD-10: R51.9 ICD-9: 784.0 03/03/2022 Active 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 ICD-10: Z79.4 03/03 Active Medications Medication Codes Instructions Start Date Stop Date Status Fill Instructions amlodipine 10 mg tablet RxNorm: 346629 Take 1 Tablet(s) Oral QD 10/20/19 23 024 Active nicotine 21 mg/24 hr daily transdermal patch RxNorm: 974208 APPLY 1 PATCH ONCE DAILY 10/18/19 23 023 Inactive Pen Needle 30 gauge x 5/16 RxNorm: Use 1 Unit(s) TID Use as directed to administer insulin up to 3x daily 10/12/19 23 023 Inactive cholecalciferol (vitamin D3) 25 mcg (1,000 unit) tablet RxNorm: 873673 TAKE 1 TABLET BY MOUTH DAILY (1,000 UNITS) 09/14/19 23 024 Active 09/13/2022 PROACTIVE REFILL REQUEST FOR NEXT CYCLE PLEASE THANK YOU Systane Ultra 0.4 %-0.3 % eye drops RxNorm: 790534 Instill 1 Drop(s) Both eyes QID 09/06/19 No Stop Date Active Lantus Solostar U-100 Insulin 100 unit/mL (3 mL) subcutaneous pen RxNorm: 562687 Inject 20 Unit(s) Subcutaneous QHS every night at bedtime 09/01/19 No Stop Date Active diclofenac 1 % topical gel RxNorm: 172063 Apply 4 Gram(s) Topical QID (bilateral knees or area of pain per patient's request) 09/01/19 No Stop Date Active acetaminophen 325 mg tablet RxNorm: 500054 Take 1 Tablet(s) Oral Q4H every four hours as needed 09/01/19 No Stop Date Active Humalog KwikPen (U-100) Insulin 100 unit/mL subcutaneous RxNorm: 0483488 Unit(s) Subcutaneous Inject per sliding scale BID before lunch and dinner 09/01/19 No Stop Date Active Aspercreme (lidocaine) 4 % topical patch RxNorm: 0293090 Apply 1 Patch Topical QD (on for 12 hours, off for 12 hours) 09/01/19 No Stop Date Active melatonin 3 mg tablet RxNorm: 652402 Take 2 Tablet(s) Oral QHS every night at bedtime as needed (may repeat once) 09/01/19 No Stop Date Active Pen Needle 30 gauge x 08/02 RxNorm: Use as directed to administer insulin up to 3x daily 09/01/19 23 023 Inactive Januvia 100 mg tablet RxNorm: 468866 Take 1 Tablet(s) Oral QD 07/23/19 23 024 Active 2nd REQUEST FOR REFILLS 07-22-2022 NEED KIM PLEASE = THANK YOU duloxetine 60 mg capsule,delayed release RxNorm: 164115 Take 2 Capsule(s) Oral QD 07/23/19 23 024 Active 2nd REQUEST FOR REFILLS 07-22-2022 NEED KIM PLEASE = THANK YOU pantoprazole 40 mg tablet,delayed release RxNorm: 313156 TAKE 1 TABLET BY MOUTH EVERY MORNING BEFORE BREAKFAST 07/23/19 23 024 Active 2nd REQUEST FOR REFILLS 07-22-2022 NEED KIM PLEASE = THANK YOU magnesium oxide 400 mg (241.3 mg magnesium) tablet RxNorm: 485086 Take 1 Tablet(s) Oral BID 07/23/19 23 024 Active 2nd REQUEST FOR REFILLS 07-22-2022 NEED KIM PLEASE = THANK YOU acetaminophen 500 mg tablet RxNorm: 184881 Take 2 Tablet(s) Oral TID 07/23/19 23 024 Active 2nd REQUEST FOR REFILLS 07-22-2022 NEED KIM PLEASE = THANK YOU risperidone 2 mg tablet RxNorm: 344952 Take 1 Tablet(s) Oral BID 07/23/19 23 024 Active 2nd REQUEST FOR REFILLS 07-22-2022 NEED KIM PLEASE = THANK YOU hydrochlorothiazide 25 mg tablet RxNorm: 452436 Take 1 Tablet(s) Oral QD 07/23/19 23 024 Active 2nd REQUEST FOR REFILLS 07-22-2022 NEED KIM PLEASE = THANK YOU potassium chloride ER 10 mEq capsule,extended release RxNorm: 793909 TAKE 1 CAPSULE BY MOUTH TWICE DAILY WITH MEAL(S) 07/23/19 23 023 Inactive 2nd REQUEST FOR REFILLS 07-22-2022 NEED KIM PLEASE = THANK YOU buprenorphine HCl 2 mg sublingual tablet RxNorm: 443798 Take 1 Tablet(s) Sublingual TID 07/19/19 23 023 Inactive buprenorphine HCl 2 mg sublingual tablet RxNorm: 450821 Take 1 Tablet(s) Sublingual TID 07/19/19 23 023 Inactive oxycodone 5 mg tablet RxNorm: 0831801 Take 1 Tablet(s) Oral BID x7 days then decrease to 1 tab once daily x 7 days then d/c 07/09/19 23 023 Inactive latanoprost 0.005 % eye drops RxNorm: 618955 Take 1 Drop(s) Both eyes QHS every night at bedtime 07/07/19 23 024 Active buprenorphine 5 mcg/hour weekly transdermal patch RxNorm: 749019 Apply 1 Transdermal once every 7 days 07/06/19 23 023 Inactive zolpidem 5 mg tablet RxNorm: 620680 Take 1 Tablet(s) Oral QHS every night at bedtime 07/06/19 23 023 Inactive buprenorphine 5 mcg/hour weekly transdermal patch RxNorm: 184148 Apply 1 Transdermal once every 7 days 07/06/19 23 023 Inactive start after stops oxycodone. belbuca film not covered famotidine 20 mg tablet RxNorm: 006864 Give 1 Tablet(s) Oral QHS every night at bedtime 07/02/19 23 024 Active torsemide 20 mg tablet RxNorm: 953360 Take 1 Tablet(s) Oral QAM every morning 07/02/19 024 Active atorvastatin 10 mg tablet RxNorm: 118186 Take 1 Tablet(s) Oral QHS every night at bedtime 07/02/19 23 024 Active aspirin 81 mg tablet,delayed release RxNorm: 065301 Take 1 Tablet(s) Oral QD 07/02/19 023 Inactive dorzolamide 22.3 mg-timolol 6.8 mg/mL eye drops RxNorm: 3395412 Apply 1 Drop(s) Both eyes BID 07/02/19 024 Active fluticasone propionate 50 mcg/actuation nasal spray,suspension RxNorm: 1193962 [place] 2 [place] Nasal QD - Daily both nostrils 07/02/19 23 024 Active acetaminophen 500 mg tablet RxNorm: 528212 Take 2 Tablet(s) Oral TID 07/02/19 23 023 Inactive amlodipine 5 mg tablet RxNorm: 006107 Take 1 Tablet(s) Oral QD 07/02/19 23 023 Inactive nicotine 21 mg/24 hr daily transdermal patch RxNorm: 852985 Apply 1 Patch Transdermal QD Remove old patch prior to placing the new one 07/02/19 023 Inactive gabapentin 600 mg tablet RxNorm: 046799 Take 1 Tablet(s) Oral TID 07/02/19 023 Inactive risperidone 2 mg tablet RxNorm: 178384 Take 1 Tablet(s) Oral BID 07/02/19 023 Inactive pantoprazole 40 mg intravenous solution RxNorm: 201909 Take 1 Tablet(s) Intravenous QAM every morning 07/02/19 023 Inactive Januvia 100 mg tablet RxNorm: 467998 Take 1 Tablet(s) Oral QD 07/02/19 023 Inactive potassium chloride ER 10 mEq tablet,extended release RxNorm: 275233 Take 1 Tablet(s) Oral BID 07/02/19 023 Inactive Belbuca 75 mcg buccal film RxNorm: 5333325 Take 1/2 film (37.5mcg) (cut diagonally) BID (start AFTER stopping oxycodone) 07/02/19 023 Inactive start belbuca in 7 days AFTER patient stops oxycodone latanoprost 0.005 % eye drops RxNorm: 557911 Take 1 Drop(s) Both eyes QHS every night at bedtime 07/02/19 023 Inactive Systane Ultra 0.4 %-0.3 % eye drops RxNorm: 766939 Apply 1 Drop(s) Both eyes QID 07/02/19 023 Inactive Lantus Solostar U-100 Insulin 100 unit/mL (3 mL) subcutaneous pen RxNorm: 225041 Take 40 Unit(s) Subcutaneous QHS every night at bedtime 07/02/19 023 Inactive oxybutynin chloride 5 mg tablet RxNorm: 671777 Administer 1 Tablet(s) Oral QHS every night at bedtime 07/02/19 023 Inactive Miralax 17 gram oral powder packet RxNorm: 137283 Take 1 Packet Oral QD 07/02/19 023 Inactive hydrochlorothiazide 25 mg tablet RxNorm: 794056 Take 1 Tablet(s) Oral QD 07/02/19 23 023 Inactive oxycodone 5 mg tablet RxNorm: 8747881 Take 1 Tablet(s) Oral TID then discontinue and start belbuca (d/c 10mg TID) 07/02/19 023 Inactive stop after 7 days duloxetine 60 mg capsule,delayed release RxNorm: 133119 Take 2 Capsule(s) Oral QD 07/02/19 23 023 Inactive Narcan 4 mg/actuation nasal spray RxNorm: 2048384 Give 1 [place] Nasal UD as directed 1 spray contents of ONE device into nostril, call 911. May repeat once with 2nd device 07/02/19 23 023 Inactive magnesium oxide 400 mg (241.3 mg magnesium) tablet RxNorm: 218418 Give 1 Tablet(s) Oral BID 07/02/19 23 023 Inactive cholecalciferol (vitamin D3) 25 mcg (1,000 unit) tablet RxNorm: 365841 Take 1 Tablet(s) Oral QAM every morning 07/02/19 023 Inactive oxycodone 5 mg tablet RxNorm: 6472149 Take 2 Tablet(s) Oral TID PRN 06/04/19 23 023 Inactive azithromycin 250 mg tablet RxNorm: 787649 Take Tablet(s) Oral QD 2 Tablets PO QD x 1 Day - Then 1 Tablet PO QD x 4 Days 05/10/19 023 Inactive oxycodone 5 mg tablet RxNorm: 5419424 Take 2 Tablet(s) Oral TID /difficulty breathing 05/03/19 23 023 Inactive oxycodone 5 mg tablet RxNorm: 8924379 Take 2 Tablet(s) Oral TID /difficulty breathing 03/03/20 22 022 Inactive azithromycin 250 mg tablet RxNorm: 291309 Take Tablet(s) Oral QD 2 Tablets PO QD x 1 Day - Then 1 Tablet PO QD x 4 Days 05/10/19 23 023 Inactive zolpidem 5 mg tablet RxNorm: 600155 Take 1 Tablet(s) Oral QHS every night [...] 141 1.0 02/03/2000 Procedures Procedure Codes Date TOBACCO BROKE MAN NO CHARGE CPT-4: G0436 2022 BEHAV CHNG SMOKING 3-[address]: 2 00528718 CPT-4: 79522 06/29/2022 Reason For Visit No Reason For Visit data Encounters Encounter Performer Location Location Address Codes Date ([address]) Home or Residence Visit Est Pt - Moderate Level, 40 mins Diagnosis: Hypertension[ICD10: I10] Diagnosis: Type 2 diabetes mellitus with other circulatory complication, with long-term current use of insulin[ICD10: E11.59] Yesika Adams [facility] [address] [place] [address] CPT-4: 83702 10/26/2022 Plan of Care Planned Activity Notes Codes Status Date Patient Education: Patient M edication Summary Completed 10/26/2022 Patient Education: Influenza Vaccine Completed 10/26/2022 Patient Education: Smoking Cessation Completed 10/26/2022 Appointment: Yesika Adams WPtel: [address] [place] [address] [id number] [place] Telehealth- Est Pt 08/11/2022 Referral: [facility] WPtel: [phone] [address] [id number] Referral Records Received 07/18/2022 Instructions Comment Date Rena is a resident a [facility].?? Previously was seen by doctor in [place].?? First BPS visit 03/10.?? Arthritis/pain complaints and anxiety are her biggest concerns.?? Johnnie just (in 2020). 2 sons - son Korey visits (From [place]).?? 10/27/2022 Diabetes 09/2022 a1c 7.4%, continue lantus 20mg QHS and humalog SS, januvia 100mg QD. Goal a1c <8% due to age and risks of falls if hypoglycemia occurs.?? Hypertension Continue torsemide 20mg QD, HCTZ 25mg QD, amlodipine 5mg QD, asa81 and statin. Monitor electrolytes at least 2x/year and kidney function due to being on torsemide. 09/2022 BMP reviewed and no concerns (K 3.4nl, Na 139nl) . 10/26/2022
--- OUTSIDE RECORDS SUMMARY | 2022-12-08 12:45 | XMS_ITS | CCD ---
Author Name Unknown Organization Unknown Care Team Providers Care [facility] Former Name Role Phone Donn MICHAUD, Miguel A Primary Care Provider Unavaila ble Unavailable Chronic Care Management Unavaila ble Summary Purpose DataExchange Insurance Providers Payer name Policy type / Coverage type Covered libertarian ID Effective Begin Date Effective End Date [place] Blue [place]Blue Shield [id number] 2022 [place] [id number] 2022 Unknown Family history Mother Diagnosis Age At Onset Glaucoma Unknown Brother Diagnosis Age At Onset Visual disturbance/blindness Unknown Glaucoma Unknown Father Diagnosis Age At Onset Stomach cancer Unknown Social History Social History Element Codes Description Effec tive Dates Tobacco history SNOMED CT: 54747086 Current every day smoker 07/01/[address]: 414962610 No Alcohol Consum ption 07/01/2022 Allergies, Adverse Reactions, Alerts Substance Reaction Codes Entered Date Inactivated Date Status Bee Sting Unknown 03/03/2022 No Inactive Date Ac tive NSAIDS Unknown 03/03/2022 No Inactive Date Ac tive PENICILLINS Unknown 03/03/2022 No Inactive Date Active losartan RxNorm: 173734 03/03/2022 No Inactive Da te Active aspirin Unknown 03/03/2022 No Inactive Date Ac tive tramadol RxNorm: 41294 03/03/2022 No Inactive Marek e Active Other: [...] Headache ICD-10: R51.9 ICD-9: 784.0 03/03/2022 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 03/03 Active Medications Medication Codes Instructions Start Date Stop Date Status Fill Instructions amlodipine 10 mg tablet RxNorm: 511432 Take 1 Tablet(s) Oral QD 10/20/19 024 Active nicotine 21 mg/24 hr daily transdermal patch RxNorm: 687045 APPLY 1 PATCH ONCE DAILY 10/18/19 023 Inactive Pen Needle 30 gauge x 5/16 RxNorm: Use 1 Unit(s) TID Use as directed to administer insulin up to 3x daily 10/12/19 023 Inactive cholecalciferol (vitamin D3) 25 mcg (1,000 unit) tablet RxNorm: 720692 TAKE 1 TABLET BY MOUTH DAILY (1,000 UNITS) 09/14/19 23 024 Active 09/13/2022 PROACTIVE REFILL REQUEST FOR NEXT CYCLE PLEASE THANK YOU Systane Ultra 0.4 %-0.3 % eye drops RxNorm: 570324 Instill 1 Drop(s) Both eyes QID 09/06/19 No Stop Date Active Lantus Solostar U-100 Insulin 100 unit/mL (3 mL) subcutaneous pen RxNorm: 491334 Inject 20 Unit(s) Subcutaneous QHS every night at bedtime 09/01/19 No Stop Date Active diclofenac 1 % topical gel RxNorm: 864304 Apply 4 Gram(s) Topical QID (bilateral knees or area of pain per patient's request) 09/01/19 No Stop Date Active acetaminophen 325 mg tablet RxNorm: 683420 Take 1 Tablet(s) Oral Q4H every four hours as needed 09/01/19 No Stop Date Active Humalog KwikPen (U-100) Insulin 100 unit/mL subcutaneous RxNorm: 1598594 Unit(s) Subcutaneous Inject per sliding scale BID before lunch and dinner 09/01/19 No Stop Date Active Aspercreme (lidocaine) 4 % topical patch RxNorm: 1947789 Apply 1 Patch Topical QD (on for 12 hours, off for 12 hours) 09/01/19 No Stop Date Active melatonin 3 mg tablet RxNorm: 712180 Take 2 Tablet(s) Oral QHS every night at bedtime as needed (may repeat once) 09/01/19 No Stop Date Active Pen Needle 30 gauge x 516 RxNorm: Use as directed to administer insulin up to 3x daily 09/01/19 23 023 Inactive Januvia 100 mg tablet RxNorm: 504949 Take 1 Tablet(s) Oral QD 07/23/19 23 024 Active 2nd REQUEST FOR REFILLS 07-22-2022 NEED KIM PLEASE = THANK YOU duloxetine 60 mg capsule,delayed release RxNorm: 241886 Take 2 Capsule(s) Oral QD 07/23/19 23 024 Active 2nd REQUEST FOR REFILLS 07-22-2022 NEED KIM PLEASE = THANK YOU pantoprazole 40 mg tablet,delayed release RxNorm: 624239 TAKE 1 TABLET BY MOUTH EVERY MORNING BEFORE BREAKFAST 07/23/19 23 024 Active 2nd REQUEST FOR REFILLS 07-22-2022 NEED KIM PLEASE = THANK YOU magnesium oxide 400 mg (241.3 mg magnesium) tablet RxNorm: 290403 Take 1 Tablet(s) Oral BID 07/23/19 23 024 Active 2nd REQUEST FOR REFILLS 07-22-2022 NEED KIM PLEASE = THANK YOU acetaminophen 500 mg tablet RxNorm: 161825 Take 2 Tablet(s) Oral TID 07/23/19 23 024 Active 2nd REQUEST FOR REFILLS 07-22-2022 NEED KIM PLEASE = THANK YOU risperidone 2 mg tablet RxNorm: 827640 Take 1 Tablet(s) Oral BID 07/23/19 23 024 Active 2nd REQUEST FOR REFILLS 07-22-2022 NEED KIM PLEASE = THANK YOU hydrochlorothiazide 25 mg tablet RxNorm: 989177 Take 1 Tablet(s) Oral QD 07/23/19 23 024 Active 2nd REQUEST FOR REFILLS 07-22-2022 NEED KIM PLEASE = THANK YOU potassium chloride ER 10 mEq capsule,extended release RxNorm: 374646 TAKE 1 CAPSULE BY MOUTH TWICE DAILY WITH MEAL(S) 07/23/19 23 023 Inactive 2nd REQUEST FOR REFILLS 07-22-2022 NEED KIM PLEASE = THANK YOU buprenorphine HCl 2 mg sublingual tablet RxNorm: 574676 Take 1 Tablet(s) Sublingual TID 07/19/19 23 023 Inactive buprenorphine HCl 2 mg sublingual tablet RxNorm: 295516 Take 1 Tablet(s) Sublingual TID 07/19/19 23 023 Inactive oxycodone 5 mg tablet RxNorm: 6271860 Take 1 Tablet(s) Oral BID x7 days then decrease to 1 tab once daily x 7 days then d/c 07/09/19 23 023 Inactive latanoprost 0.005 % eye drops RxNorm: 258120 Take 1 Drop(s) Both eyes QHS every night at bedtime 07/07/19 23 024 Active buprenorphine 5 mcg/hour weekly transdermal patch RxNorm: 101808 Apply 1 Transdermal once every 7 days 07/06/19 23 023 Inactive zolpidem 5 mg tablet RxNorm: 372412 Take 1 Tablet(s) Oral QHS every night at bedtime 07/06/19 23 023 Inactive buprenorphine 5 mcg/hour weekly transdermal patch RxNorm: 655524 Apply 1 Transdermal once every 7 days 07/06/19 023 Inactive start after stops oxycodone. belbuca film not covered famotidine 20 mg tablet RxNorm: 917951 Give 1 Tablet(s) Oral QHS every night at bedtime 07/02/19 23 024 Active amlodipine 5 mg tablet RxNorm: 432346 Take 1 Tablet(s) Oral QD 07/02/19 023 Inactive torsemide 20 mg tablet RxNorm: 394267 Take 1 Tablet(s) Oral QAM every morning 07/02/19 024 Active atorvastatin 10 mg tablet RxNorm: 251050 Take 1 Tablet(s) Oral QHS every night at bedtime 07/02/19 024 Active aspirin 81 mg tablet,delayed release RxNorm: 559260 Take 1 Tablet(s) Oral QD 07/02/19 023 Inactive dorzolamide 22.3 mg-timolol 6.8 mg/mL eye drops RxNorm: 2754975 Apply 1 Drop(s) Both eyes BID 07/02/19 024 Active fluticasone propionate 50 mcg/actuation nasal spray,suspension RxNorm: 6751755 [place] 2 [place] Nasal QD - Daily both nostrils 07/02/19 024 Active acetaminophen 500 mg tablet RxNorm: 636244 Take 2 Tablet(s) Oral TID 07/02/19 023 Inactive nicotine 21 mg/24 hr daily transdermal patch RxNorm: 802285 Apply 1 Patch Transdermal QD Remove old patch prior to placing the new one 07/02/19 23 023 Inactive gabapentin 600 mg tablet RxNorm: 396188 Take 1 Tablet(s) Oral TID 07/02/19 23 023 Inactive risperidone 2 mg tablet RxNorm: 045573 Take 1 Tablet(s) Oral BID 07/02/19 023 Inactive pantoprazole 40 mg intravenous solution RxNorm: 811679 Take 1 Tablet(s) Intravenous QAM every morning 07/02/19 23 023 Inactive Januvia 100 mg tablet RxNorm: 503281 Take 1 Tablet(s) Oral QD 07/02/19 023 Inactive potassium chloride ER 10 mEq tablet,extended release RxNorm: 529048 Take 1 Tablet(s) Oral BID 07/02/19 023 Inactive Belbuca 75 mcg buccal film RxNorm: 6846568 Take 1/2 film (37.5mcg) (cut diagonally) BID (start AFTER stopping oxycodone) 07/02/19 023 Inactive start belbuca in 7 days AFTER patient stops oxycodone latanoprost 0.005 % eye drops RxNorm: 279514 Take 1 Drop(s) Both eyes QHS every night at bedtime 07/02/19 023 Inactive Systane Ultra 0.4 %-0.3 % eye drops RxNorm: 240559 Apply 1 Drop(s) Both eyes QID 07/02/19 023 Inactive Lantus Solostar U-100 Insulin 100 unit/mL (3 mL) subcutaneous pen RxNorm: 472400 Take 40 Unit(s) Subcutaneous QHS every night at bedtime 07/02/19 023 Inactive oxybutynin chloride 5 mg tablet RxNorm: 695107 Administer 1 Tablet(s) Oral QHS every night at bedtime 07/02/19 023 Inactive Miralax 17 gram oral powder packet RxNorm: 095922 Take 1 Packet Oral QD 07/02/19 023 Inactive hydrochlorothiazide 25 mg tablet RxNorm: 799404 Take 1 Tablet(s) Oral QD 07/02/19 023 Inactive oxycodone 5 mg tablet RxNorm: 7719425 Take 1 Tablet(s) Oral TID then discontinue and start belbuca (d/c 10mg TID) 07/02/19 23 023 Inactive stop after 7 days duloxetine 60 mg capsule,delayed release RxNorm: 429112 Take 2 Capsule(s) Oral QD 07/02/19 23 023 Inactive Narcan 4 mg/actuation nasal spray RxNorm: 4841735 Give 1 [place] Nasal UD as directed 1 spray contents of ONE device into nostril, call 911. May repeat once with 2nd device 07/02/19 23 023 Inactive magnesium oxide 400 mg (241.3 mg magnesium) tablet RxNorm: 769366 Give 1 Tablet(s) Oral BID 07/02/19 23 023 Inactive cholecalciferol (vitamin D3) 25 mcg (1,000 unit) tablet RxNorm: 057356 Take 1 Tablet(s) Oral QAM every morning 07/02/19 023 Inactive oxycodone 5 mg tablet RxNorm: 7226933 Take 2 Tablet(s) Oral TID PRN 06/04/19 23 023 Inactive azithromycin 250 mg tablet RxNorm: 883401 Take Tablet(s) Oral QD 2 Tablets PO QD x 1 Day - Then 1 Tablet PO QD x 4 Days 05/10/19 23 023 Inactive oxycodone 5 mg tablet RxNorm: 7037154 Take 2 Tablet(s) Oral TID /difficulty breathing 05/03/19 023 Inactive oxycodone 5 mg tablet RxNorm: 7668987 Take 2 Tablet(s) Oral TID /difficulty breathing 03/03/20 22 022 Inactive azithromycin 250 mg tablet RxNorm: 095603 Take Tablet(s) Oral QD 2 Tablets PO QD x 1 Day - Then 1 Tablet PO QD x 4 Days 05/10/19 23 023 Inactive zolpidem 5 mg tablet RxNorm: 169679 Take 1 Tablet(s) Oral QHS every night [...] CHNG SMOKING 3-[address]: 2 50563513 CPT-4: 59781 06/29/2022 Reason For Visit No Reason For Visit data Plan of Care Planned Activity Notes Codes Status Date Referral: [facility] WPtel: [id number] [facility] [address] [place], [place] [id number] Referral Records Received 07/18/2022 Instructions Comment Date Rena is a resident a [facility].?? Previously was seen by doctor in [place].?? First BPS visit 03/10.?? Arthritis/pain complaints and anxiety are her biggest concerns.?? Johnnie just (in 2020). 2 sons - son Korey visits (From [facility]).?? 10/27/2022
--- OUTSIDE RECORDS SUMMARY | 2022-12-08 12:46 | XMS_ITS | CCD ---
Author Name Unknown Organization Unknown Care Team Providers Care [facility]coiler Name Role Phone Donn MICHAUD, Miguel A Primary Care Provider Unavaila ble Unavailable Chronic Care Management Unavaila ble Summary Purpose DataExchange Insurance Providers Payer name Policy type / Coverage type Covered alliance party ID Effective Begin Date Effective End Date [place] Blue [place]Blue Shield [id number] 2022 [place] [id number] 2022 Unknown Family history Mother Diagnosis Age At Onset Glaucoma Unknown Brother Diagnosis Age At Onset Visual disturbance/blindness Unknown Glaucoma Unknown Father Diagnosis Age At Onset Stomach cancer Unknown Social History Social History Element Codes Description Effec tive Dates Tobacco history SNOMED CT: 02884830 Current every day smoker 07/01/[address]: 087533425 No Alcohol Consum ption 07/01/2022 Allergies, Adverse Reactions, Alerts Substance Reaction Codes Entered Date Inactivated Date Status Bee Sting Unknown 03/03/2022 No Inactive Date Ac tive NSAIDS Unknown 03/03/2022 No Inactive Date Ac tive PENICILLINS Unknown 03/03/2022 No Inactive Date Active losartan RxNorm: 368777 03/03/2022 No Inactive Da te Active aspirin Unknown 03/03/2022 No Inactive Date Ac tive tramadol RxNorm: 34932 03/03/2022 No Inactive Marek e Active Other: [...] ICD-10: R51.9 ICD-9: 784.0 03/03/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 03/03 Active Medications Medication Codes Instructions Start Date Stop Date Status Fill Instructions aspirin 81 mg tablet,delayed release RxNorm: 494914 Take 1 Tablet(s) Oral QD 11/15/19 23 024 Active 2ND REQUEST 11/11/2022 NEED KIM PLEASE THANK YOU amlodipine 10 mg tablet RxNorm: 314528 Take 1 Tablet(s) Oral QD 10/20/19 23 024 Active nicotine 21 mg/24 hr daily transdermal patch RxNorm: 953472 APPLY 1 PATCH ONCE DAILY 10/18/19 23 023 Inactive Pen Needle 30 gauge x 08/02 RxNorm: Use 1 Unit(s) TID Use as directed to administer insulin up to 3x daily 10/12/19 23 023 Inactive cholecalciferol (vitamin D3) 25 mcg (1,000 unit) tablet RxNorm: 557458 TAKE 1 TABLET BY MOUTH DAILY (1,000 UNITS) 09/14/19 23 024 Active 09/13/2022 PROACTIVE REFILL REQUEST FOR NEXT CYCLE PLEASE THANK YOU Systane Ultra 0.4 %-0.3 % eye drops RxNorm: 077903 Instill 1 Drop(s) Both eyes QID 09/06/19 No Stop Date Active Lantus Solostar U-100 Insulin 100 unit/mL (3 mL) subcutaneous pen RxNorm: 416218 Inject 20 Unit(s) Subcutaneous QHS every night at bedtime 09/01/19 No Stop Date Active diclofenac 1 % topical gel RxNorm: 502797 Apply 4 Gram(s) Topical QID (bilateral knees or area of pain per patient's request) 09/01/19 No Stop Date Active acetaminophen 325 mg tablet RxNorm: 472973 Take 1 Tablet(s) Oral Q4H every four hours as needed 09/01/19 No Stop Date Active Humalog KwikPen (U-100) Insulin 100 unit/mL subcutaneous RxNorm: 0427251 Unit(s) Subcutaneous Inject per sliding scale BID before lunch and dinner 09/01/19 No Stop Date Active Aspercreme (lidocaine) 4 % topical patch RxNorm: 5713879 Apply 1 Patch Topical QD (on for 12 hours, off for 12 hours) 09/01/19 No Stop Date Active melatonin 3 mg tablet RxNorm: 382678 Take 2 Tablet(s) Oral QHS every night at bedtime as needed (may repeat once) 09/01/19 No Stop Date Active Pen Needle 30 gauge x 08/02 RxNorm: Use as directed to administer insulin up to 3x daily 09/01/19 23 023 Inactive Januvia 100 mg tablet RxNorm: 295104 Take 1 Tablet(s) Oral QD 07/23/19 23 024 Active 2nd REQUEST FOR REFILLS 07-22-2022 NEED KIM PLEASE = THANK YOU duloxetine 60 mg capsule,delayed release RxNorm: 637331 Take 2 Capsule(s) Oral QD 07/23/19 23 024 Active 2nd REQUEST FOR REFILLS 07-22-2022 NEED KIM PLEASE = THANK YOU pantoprazole 40 mg tablet,delayed release RxNorm: 914584 TAKE 1 TABLET BY MOUTH EVERY MORNING BEFORE BREAKFAST 07/23/19 23 024 Active 2nd REQUEST FOR REFILLS 07-22-2022 NEED KIM PLEASE = THANK YOU magnesium oxide 400 mg (241.3 mg magnesium) tablet RxNorm: 740801 Take 1 Tablet(s) Oral BID 07/23/19 23 024 Active 2nd REQUEST FOR REFILLS - NEED KIM PLEASE = THANK YOU acetaminophen 500 mg tablet RxNorm: 380460 Take 2 Tablet(s) Oral TID 07/23/19 23 024 Active 2nd REQUEST FOR REFILLS 07-22-2022 NEED KIM PLEASE = THANK YOU risperidone 2 mg tablet RxNorm: 331521 Take 1 Tablet(s) Oral BID 07/23/19 23 024 Active 2nd REQUEST FOR REFILLS - NEED KIM PLEASE = THANK YOU hydrochlorothiazide 25 mg tablet RxNorm: 518399 Take 1 Tablet(s) Oral QD 07/23/19 23 024 Active 2nd REQUEST FOR REFILLS - NEED KIM PLEASE = THANK YOU potassium chloride ER 10 mEq capsule,extended release RxNorm: 284165 TAKE 1 CAPSULE BY MOUTH TWICE DAILY WITH MEAL(S) 07/23/19 23 023 Inactive 2nd REQUEST FOR REFILLS 07-22-2022 NEED KIM PLEASE = THANK YOU buprenorphine HCl 2 mg sublingual tablet RxNorm: 313553 Take 1 Tablet(s) Sublingual TID 07/19/19 23 023 Inactive buprenorphine HCl 2 mg sublingual tablet RxNorm: 248534 Take 1 Tablet(s) Sublingual TID 07/19/19 23 023 Inactive oxycodone 5 mg tablet RxNorm: 8308903 Take 1 Tablet(s) Oral BID x7 days then decrease to 1 tab once daily x 7 days then d/c 07/09/19 23 023 Inactive latanoprost 0.005 % eye drops RxNorm: 901963 Take 1 Drop(s) Both eyes QHS every night at bedtime 07/07/19 23 024 Active buprenorphine 5 mcg/hour weekly transdermal patch RxNorm: 825549 Apply 1 Transdermal once every 7 days 07/06/19 23 023 Inactive zolpidem 5 mg tablet RxNorm: 883402 Take 1 Tablet(s) Oral QHS every night at bedtime 07/06/19 023 Inactive buprenorphine 5 mcg/hour weekly transdermal patch RxNorm: 633585 Apply 1 Transdermal once every 7 days 07/06/19 023 Inactive start after stops oxycodone. belbuca film not covered famotidine 20 mg tablet RxNorm: 984464 Give 1 Tablet(s) Oral QHS every night at bedtime 07/02/19 024 Active torsemide 20 mg tablet RxNorm: 531269 Take 1 Tablet(s) Oral QAM every morning 07/02/19 024 Active atorvastatin 10 mg tablet RxNorm: 050521 Take 1 Tablet(s) Oral QHS every night at bedtime 07/02/19 024 Active aspirin 81 mg tablet,delayed release RxNorm: 781032 Take 1 Tablet(s) Oral QD 07/02/19 023 Inactive dorzolamide 22.3 mg-timolol 6.8 mg/mL eye drops RxNorm: 2668175 Apply 1 Drop(s) Both eyes BID 07/02/19 024 Active fluticasone propionate 50 mcg/actuation nasal spray,suspension RxNorm: 9730794 [place] 2 [place] Nasal QD - Daily both nostrils 07/02/19 024 Active acetaminophen 500 mg tablet RxNorm: 220807 Take 2 Tablet(s) Oral TID 07/02/19 23 023 Inactive amlodipine 5 mg tablet RxNorm: 824825 Take 1 Tablet(s) Oral QD 07/02/19 023 Inactive nicotine 21 mg/24 hr daily transdermal patch RxNorm: 206427 Apply 1 Patch Transdermal QD Remove old patch prior to placing the new one 07/02/19 23 023 Inactive gabapentin 600 mg tablet RxNorm: 650263 Take 1 Tablet(s) Oral TID 07/02/19 23 023 Inactive risperidone 2 mg tablet RxNorm: 335566 Take 1 Tablet(s) Oral BID 07/02/19 023 Inactive pantoprazole 40 mg intravenous solution RxNorm: 714478 Take 1 Tablet(s) Intravenous QAM every morning 07/02/19 023 Inactive Januvia 100 mg tablet RxNorm: 969565 Take 1 Tablet(s) Oral QD 07/02/19 023 Inactive potassium chloride ER 10 mEq tablet,extended release RxNorm: 501853 Take 1 Tablet(s) Oral BID 07/02/19 023 Inactive Belbuca 75 mcg buccal film RxNorm: 3116868 Take 1/2 film (37.5mcg) (cut diagonally) BID (start AFTER stopping oxycodone) 07/02/19 023 Inactive start belbuca in 7 days AFTER patient stops oxycodone latanoprost 0.005 % eye drops RxNorm: 110271 Take 1 Drop(s) Both eyes QHS every night at bedtime 07/02/19 023 Inactive Systane Ultra 0.4 %-0.3 % eye drops RxNorm: 840820 Apply 1 Drop(s) Both eyes QID 07/02/19 023 Inactive Lantus Solostar U-100 Insulin 100 unit/mL (3 mL) subcutaneous pen RxNorm: 955031 Take 40 Unit(s) Subcutaneous QHS every night at bedtime 07/02/19 023 Inactive oxybutynin chloride 5 mg tablet RxNorm: 017224 Administer 1 Tablet(s) Oral QHS every night at bedtime 07/02/19 23 023 Inactive Miralax 17 gram oral powder packet RxNorm: 664089 Take 1 Packet Oral QD 07/02/19 023 Inactive hydrochlorothiazide 25 mg tablet RxNorm: 688881 Take 1 Tablet(s) Oral QD 07/02/19 023 Inactive oxycodone 5 mg tablet RxNorm: 7943395 Take 1 Tablet(s) Oral TID then discontinue and start belbuca (d/c 10mg TID) 07/02/19 23 023 Inactive stop after 7 days duloxetine 60 mg capsule,delayed release RxNorm: 894980 Take 2 Capsule(s) Oral QD 07/02/19 023 Inactive Narcan 4 mg/actuation nasal spray RxNorm: 4395311 Give 1 [place] Nasal UD as directed 1 spray contents of ONE device into nostril, call 911. May repeat once with 2nd device 07/02/19 23 023 Inactive magnesium oxide 400 mg (241.3 mg magnesium) tablet RxNorm: 722076 Give 1 Tablet(s) Oral BID 07/02/19 023 Inactive cholecalciferol (vitamin D3) 25 mcg (1,000 unit) tablet RxNorm: 646133 Take 1 Tablet(s) Oral QAM every morning 07/02/19 023 Inactive oxycodone 5 mg tablet RxNorm: 4779852 Take 2 Tablet(s) Oral TID PRN 06/04/19 23 023 Inactive azithromycin 250 mg tablet RxNorm: 551262 Take Tablet(s) Oral QD 2 Tablets PO QD x 1 Day - Then 1 Tablet PO QD x 4 Days 05/10/19 023 Inactive oxycodone 5 mg tablet RxNorm: 4807409 Take 2 Tablet(s) Oral TID /difficulty breathing 05/03/19 23 023 Inactive oxycodone 5 mg tablet RxNorm: 3118775 Take 2 Tablet(s) Oral TID /difficulty breathing 03/03/20 22 022 Inactive azithromycin 250 mg tablet RxNorm: 532733 Take Tablet(s) Oral QD 2 Tablets PO QD x 1 Day - Then 1 Tablet PO QD x 4 Days 05/10/19 23 023 Inactive zolpidem 5 mg tablet RxNorm: 715971 Take 1 Tablet(s) Oral QHS every night at bedtime as needed 01/09/20 23 04/18/2 023 Inactive Medication Administered No Medication Administered [...] CHNG SMOKING 3-[address]: 2 64724352 CPT-4: 92587 06/29/2022 Reason For Visit No Reason For Visit data Plan of Care Planned Activity Notes Codes Status Date [facility]: [facility] [id number] [address] [facility] [address] [place], [place] [id number] [place] Referral Records Received 07/18/2022 Instructions Comment Date Rena is a resident a [facility].?? Previously was seen by doctor in [place].?? First BPS visit 03/10.?? Arthritis/pain complaints and anxiety are her biggest concerns.?? Johnnie just (in 2020). 2 sons - son Korey visits (From [facility]).?? 10/27/2022
--- OUTSIDE RECORDS SUMMARY | 2022-12-08 12:46 | XMS_ITS | CCD ---
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 Phone Donn MICHAUD, Miguel A Primary Care Provider Unavaila ble Unavailable Chronic Care Management Unavaila ble Summary Purpose DataExchange Insurance Providers Payer name Policy type / Coverage type Covered green party ID Effective Begin Date Effective End Date [place] Blue Cross/Blue Shield [id number] 2022 [place] [id number] 2022 Unknown Family history Mother Diagnosis Age At Onset Glaucoma Unknown Brother Diagnosis Age At Onset Visual disturbance/blindness Unknown Glaucoma Unknown Father Diagnosis Age At Onset Stomach cancer Unknown Social History Social History Element Codes Description Effec tive Dates Tobacco history SNOMED CT: 86624729 Current every day smoker 07/01/[address]: 091550987 No Alcohol Consum ption 07/01/2022 Allergies, Adverse Reactions, Alerts Substance Reaction Codes Entered Date Inactivated Date Status Bee Sting Unknown 03/03/2022 No Inactive Date Ac tive NSAIDS Unknown 03/03/2022 No Inactive Date Ac tive PENICILLINS Unknown 03/03/2022 No Inactive Date Active losartan RxNorm: 907119 03/03/2022 No Inactive Da te Active aspirin Unknown 03/03/2022 No Inactive Date Ac tive tramadol RxNorm: 71326 03/03/2022 No Inactive Marek e Active Other: [...] Headache ICD-10: R51.9 ICD-9: 784.0 03/03/2022 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 03/03 Active Medications Medication Codes Instructions Start Date Stop Date Status Fill Instructions nicotine 21 mg/24 hr daily transdermal patch RxNorm: 619620 Apply 1 Transdermal QD 11/16/19 23 023 Inactive aspirin 81 mg tablet,delayed release RxNorm: 609926 Take 1 Tablet(s) Oral QD 11/15/19 024 Active 2ND REQUEST 11/11/2022 NEED KIM PLEASE THANK YOU nicotine 21 mg/24 hr daily transdermal patch RxNorm: 293107 Apply 1 Transdermal QD 11/02/19 023 Inactive amlodipine 10 mg tablet RxNorm: 814006 Take 1 Tablet(s) Oral QD 10/20/19 23 024 Active nicotine 21 mg/24 hr daily transdermal patch RxNorm: 199082 APPLY 1 PATCH ONCE DAILY 10/18/19 023 Inactive Pen Needle 30 gauge x 08/02 RxNorm: Use 1 Unit(s) TID Use as directed to administer insulin up to 3x daily 10/12/19 023 Inactive cholecalciferol (vitamin D3) 25 mcg (1,000 unit) tablet RxNorm: 953103 TAKE 1 TABLET BY MOUTH DAILY (1,000 UNITS) 09/14/19 024 Active 09/13/2022 PROACTIVE REFILL REQUEST FOR NEXT CYCLE PLEASE THANK YOU Systane Ultra 0.4 %-0.3 % eye drops RxNorm: 749816 Instill 1 Drop(s) Both eyes QID 09/06/19 No Stop Date Active Lantus Solostar U-100 Insulin 100 unit/mL (3 mL) subcutaneous pen RxNorm: 135525 Inject 20 Unit(s) Subcutaneous QHS every night at bedtime 09/01/19 No Stop Date Active diclofenac 1 % topical gel RxNorm: 746058 Apply 4 Gram(s) Topical QID (bilateral knees or area of pain per patient's request) 09/01/19 No Stop Date Active acetaminophen 325 mg tablet RxNorm: 105576 Take 1 Tablet(s) Oral Q4H every four hours as needed 09/01/19 No Stop Date Active Humalog KwikPen (U-100) Insulin 100 unit/mL subcutaneous RxNorm: 0849097 Unit(s) Subcutaneous Inject per sliding scale BID before lunch and dinner 09/01/19 No Stop Date Active Aspercreme (lidocaine) 4 % topical patch RxNorm: 1884100 Apply 1 Patch Topical QD (on for 12 hours, off for 12 hours) 09/01/19 No Stop Date Active melatonin 3 mg tablet RxNorm: 105689 Take 2 Tablet(s) Oral QHS every night at bedtime as needed (may repeat once) 09/01/19 No Stop Date Active Pen Needle 30 gauge x 08/02 RxNorm: Use as directed to administer insulin up to 3x daily 09/01/19 23 023 Inactive Januvia 100 mg tablet RxNorm: 876297 Take 1 Tablet(s) Oral QD 07/23/19 23 024 Active 2nd REQUEST FOR REFILLS 07-22-2022 NEED KIM PLEASE = THANK YOU duloxetine 60 mg capsule,delayed release RxNorm: 732472 Take 2 Capsule(s) Oral QD 07/23/19 23 024 Active 2nd REQUEST FOR REFILLS 07-22-2022 NEED KIM PLEASE = THANK YOU pantoprazole 40 mg tablet,delayed release RxNorm: 275977 TAKE 1 TABLET BY MOUTH EVERY MORNING BEFORE BREAKFAST 07/23/19 23 024 Active 2nd REQUEST FOR REFILLS 07-22-2022 NEED KIM PLEASE = THANK YOU magnesium oxide 400 mg (241.3 mg magnesium) tablet RxNorm: 813492 Take 1 Tablet(s) Oral BID 07/23/19 23 024 Active 2nd REQUEST FOR REFILLS 07-22-2022 NEED KIM PLEASE = THANK YOU acetaminophen 500 mg tablet RxNorm: 587442 Take 2 Tablet(s) Oral TID 07/23/19 23 024 Active 2nd REQUEST FOR REFILLS 07-22-2022 NEED KIM PLEASE = THANK YOU risperidone 2 mg tablet RxNorm: 315651 Take 1 Tablet(s) Oral BID 07/23/19 23 024 Active 2nd REQUEST FOR REFILLS 07-22-2022 NEED KIM PLEASE = THANK YOU hydrochlorothiazide 25 mg tablet RxNorm: 997473 Take 1 Tablet(s) Oral QD 07/23/19 23 024 Active 2nd REQUEST FOR REFILLS 07-22-2022 NEED KIM PLEASE = THANK YOU potassium chloride ER 10 mEq capsule,extended release RxNorm: 502429 TAKE 1 CAPSULE BY MOUTH TWICE DAILY WITH MEAL(S) 07/23/19 23 023 Inactive 2nd REQUEST FOR REFILLS 07-22-2022 NEED KIM PLEASE = THANK YOU buprenorphine HCl 2 mg sublingual tablet RxNorm: 853709 Take 1 Tablet(s) Sublingual TID 07/19/19 23 023 Inactive buprenorphine HCl 2 mg sublingual tablet RxNorm: 027496 Take 1 Tablet(s) Sublingual TID 07/19/19 23 023 Inactive oxycodone 5 mg tablet RxNorm: 7868495 Take 1 Tablet(s) Oral BID x7 days then decrease to 1 tab once daily x 7 days then d/c 07/09/19 23 023 Inactive latanoprost 0.005 % eye drops RxNorm: 053000 Take 1 Drop(s) Both eyes QHS every night at bedtime 07/07/19 23 024 Active buprenorphine 5 mcg/hour weekly transdermal patch RxNorm: 439922 Apply 1 Transdermal once every 7 days 07/06/19 23 023 Inactive zolpidem 5 mg tablet RxNorm: 779165 Take 1 Tablet(s) Oral QHS every night at bedtime 07/06/19 023 Inactive buprenorphine 5 mcg/hour weekly transdermal patch RxNorm: 118002 Apply 1 Transdermal once every 7 days 07/06/19 023 Inactive start after stops oxycodone. belbuca film not covered famotidine 20 mg tablet RxNorm: 788445 Give 1 Tablet(s) Oral QHS every night at bedtime 07/02/19 23 024 Active torsemide 20 mg tablet RxNorm: 799363 Take 1 Tablet(s) Oral QAM every morning 07/02/19 024 Active atorvastatin 10 mg tablet RxNorm: 702212 Take 1 Tablet(s) Oral QHS every night at bedtime 07/02/19 024 Active dorzolamide 22.3 mg-timolol 6.8 mg/mL eye drops RxNorm: 9106838 Apply 1 Drop(s) Both eyes BID 07/02/19 23 024 Active fluticasone propionate 50 mcg/actuation nasal spray,suspension RxNorm: 7218813 Edna 2 Edna Nasal QD - Daily both nostrils 07/02/19 23 024 Active acetaminophen 500 mg tablet RxNorm: 318696 Take 2 Tablet(s) Oral TID 07/02/19 23 023 Inactive amlodipine 5 mg tablet RxNorm: 473700 Take 1 Tablet(s) Oral QD 07/02/19 023 Inactive nicotine 21 mg/24 hr daily transdermal patch RxNorm: 208948 Apply 1 Patch Transdermal QD Remove old patch prior to placing the new one 07/02/19 023 Inactive gabapentin 600 mg tablet RxNorm: 360423 Take 1 Tablet(s) Oral TID 07/02/19 023 Inactive risperidone 2 mg tablet RxNorm: 079577 Take 1 Tablet(s) Oral BID 07/02/19 023 Inactive pantoprazole 40 mg intravenous solution RxNorm: 313549 Take 1 Tablet(s) Intravenous QAM every morning 07/02/19 023 Inactive Januvia 100 mg tablet RxNorm: 947489 Take 1 Tablet(s) Oral QD 07/02/19 023 Inactive potassium chloride ER 10 mEq tablet,extended release RxNorm: 778613 Take 1 Tablet(s) Oral BID 07/02/19 023 Inactive Belbuca 75 mcg buccal film RxNorm: 8705146 Take 1/2 film (37.5mcg) (cut diagonally) BID (start AFTER stopping oxycodone) 07/02/19 023 Inactive start belbuca in 7 days AFTER patient stops oxycodone aspirin 81 mg tablet,delayed release RxNorm: 582168 Take 1 Tablet(s) Oral QD 07/02/19 023 Inactive latanoprost 0.005 % eye drops RxNorm: 246911 Take 1 Drop(s) Both eyes QHS every night at bedtime 07/02/19 023 Inactive Systane Ultra 0.4 %-0.3 % eye drops RxNorm: 895387 Apply 1 Drop(s) Both eyes QID 07/02/19 023 Inactive Lantus Solostar U-100 Insulin 100 unit/mL (3 mL) subcutaneous pen RxNorm: 111393 Take 40 Unit(s) Subcutaneous QHS every night at bedtime 07/02/19 23 023 Inactive oxybutynin chloride 5 mg tablet RxNorm: 711079 Administer 1 Tablet(s) Oral QHS every night at bedtime 07/02/19 023 Inactive Miralax 17 gram oral powder packet RxNorm: 802319 Take 1 Packet Oral QD 07/02/19 023 Inactive hydrochlorothiazide 25 mg tablet RxNorm: 577938 Take 1 Tablet(s) Oral QD 07/02/19 023 Inactive oxycodone 5 mg tablet RxNorm: 0985318 Take 1 Tablet(s) Oral TID then discontinue and start belbuca (d/c 10mg TID) 07/02/19 023 Inactive stop after 7 days duloxetine 60 mg capsule,delayed release RxNorm: 909685 Take 2 Capsule(s) Oral QD 07/02/19 023 Inactive Narcan 4 mg/actuation nasal spray RxNorm: 2576547 Give 1 [place] Nasal UD as directed 1 spray contents of ONE device into nostril, call 911. May repeat once with 2nd device 07/02/19 023 Inactive magnesium oxide 400 mg (241.3 mg magnesium) tablet RxNorm: 218596 Give 1 Tablet(s) Oral BID 07/02/19 023 Inactive cholecalciferol (vitamin D3) 25 mcg (1,000 unit) tablet RxNorm: 880875 Take 1 Tablet(s) Oral QAM every morning 07/02/19 023 Inactive oxycodone 5 mg tablet RxNorm: 7033151 Take 2 Tablet(s) Oral TID PRN 06/04/19 023 Inactive azithromycin 250 mg tablet RxNorm: 798217 Take Tablet(s) Oral QD 2 Tablets PO QD x 1 Day - Then 1 Tablet PO QD x 4 Days 05/10/19 23 023 Inactive oxycodone 5 mg tablet RxNorm: 8749758 Take 2 Tablet(s) Oral TID /difficulty breathing 05/03/19 23 023 Inactive oxycodone 5 mg tablet RxNorm: 1823912 Take 2 Tablet(s) Oral TID /difficulty breathing 03/03/20 22 022 Inactive azithromycin 250 mg tablet RxNorm: 151092 Take Tablet(s) Oral QD 2 Tablets PO QD x 1 Day - Then 1 Tablet PO QD x 4 Days 05/10/19 023 Inactive zolpidem 5 mg tablet RxNorm: 815015 Take 1 Tablet(s) Oral QHS every night [...] CHNG SMOKING 3-[address]: 2 98674717 CPT-4: 18505 06/29/2022 Reason For Visit No Reason For Visit data Plan of Care Planned Activity Notes Codes Status Date Referral: [facility] WPtel: [id number] [place], [place] [id number] [place] Referral Records Received 07/18/2022 Instructions Comment Date Rena is a resident a [facility].?? Previously was seen by doctor in [place].?? First [facility] visit 03/10.?? Arthritis/pain complaints and anxiety are her biggest concerns.?? Johnnie just (in 2020). 2 sons - son Korey visits (From [place]).?? 10/27/2022
--- OUTSIDE RECORDS SUMMARY | 2022-12-08 12:47 | XMS_ITS | CCD ---
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 Role Phone Donn MICHAUD, Miguel A Primary Care Provider Unavaila ble Unavailable Chronic Care Management Unavaila ble Summary Purpose DataExchange Insurance Providers Payer name Policy type / Coverage type Covered republican ID Effective Begin Date Effective End Date [place] Blue Cross[place]Blue Shield [id number] 2022 [place] [id number] 2022 Unknown Family history Mother Diagnosis Age At Onset Glaucoma Unknown Brother Diagnosis Age At Onset Visual disturbance/blindness Unknown Glaucoma Unknown Father Diagnosis Age At Onset Stomach cancer Unknown Social History Social History Element Codes Description Effec tive Dates Tobacco history SNOMED CT: 98128231 Current every day smoker 07/01/[address]: 017992577 No Alcohol Consum ption 07/01/2022 Allergies, Adverse Reactions, Alerts Substance Reaction Codes Entered Date Inactivated Date Status Bee Sting Unknown 03/03/2022 No Inactive Date Ac tive NSAIDS Unknown 03/03/2022 No Inactive Date Ac tive PENICILLINS Unknown 03/03/2022 No Inactive Date Active losartan RxNorm: 386177 03/03/2022 No Inactive Da te Active aspirin Unknown 03/03/2022 No Inactive Date Ac tive tramadol RxNorm: 30943 03/03/2022 No Inactive Marek e Active Other: [...] Headache ICD-10: R51.9 ICD-9: 784.0 03/03/2022 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 03/03 Active Medications Medication Codes Instructions Start Date Stop Date Status Fill Instructions nicotine 21 mg/24 hr daily transdermal patch RxNorm: 164287 Apply 1 Transdermal QD 12/02/19 023 Active nicotine 21 mg/24 hr daily transdermal patch RxNorm: 513139 Apply 1 Transdermal QD 11/29/19 023 Inactive loratadine 10 mg tablet RxNorm: 097279 Take 1 Tablet(s) Oral QD as needed 11/23/19 024 Active loratadine 10 mg tablet RxNorm: 653340 Take 1 Tablet(s) Oral QD as needed 11/23/19 23 023 Inactive nicotine 21 mg/24 hr daily transdermal patch RxNorm: 660885 Apply 1 Transdermal QD 11/16/19 023 Inactive aspirin 81 mg tablet,delayed release RxNorm: 358939 Take 1 Tablet(s) Oral QD 11/15/19 024 Active 2ND REQUEST 11/11/2022 NEED KIM PLEASE THANK YOU nicotine 21 mg/24 hr daily transdermal patch RxNorm: 551013 Apply 1 Transdermal QD 11/02/19 023 Inactive amlodipine 10 mg tablet RxNorm: 305748 Take 1 Tablet(s) Oral QD 10/20/19 024 Active nicotine 21 mg/24 hr daily transdermal patch RxNorm: 989950 APPLY 1 PATCH ONCE DAILY 10/18/19 023 Inactive Pen Needle 30 gauge x 5/16 RxNorm: Use 1 Unit(s) TID Use as directed to administer insulin up to 3x daily 10/12/19 23 023 Inactive cholecalciferol (vitamin D3) 25 mcg (1,000 unit) tablet RxNorm: 915827 TAKE 1 TABLET BY MOUTH DAILY (1,000 UNITS) 09/14/19 024 Active 09/13/2022 PROACTIVE REFILL REQUEST FOR NEXT CYCLE PLEASE THANK YOU Systane Ultra 0.4 %-0.3 % eye drops RxNorm: 801607 Instill 1 Drop(s) Both eyes QID 09/06/19 No Stop Date Active Lantus Solostar U-100 Insulin 100 unit/mL (3 mL) subcutaneous pen RxNorm: 537730 Inject 20 Unit(s) Subcutaneous QHS every night at bedtime 09/01/19 No Stop Date Active diclofenac 1 % topical gel RxNorm: 664551 Apply 4 Gram(s) Topical QID (bilateral knees or area of pain per patient's request) 09/01/19 No Stop Date Active acetaminophen 325 mg tablet RxNorm: 200409 Take 1 Tablet(s) Oral Q4H every four hours as needed 09/01/19 No Stop Date Active Humalog KwikPen (U-100) Insulin 100 unit/mL subcutaneous RxNorm: 0824414 Unit(s) Subcutaneous Inject per sliding scale BID before lunch and dinner 09/01/19 No Stop Date Active Aspercreme (lidocaine) 4 % topical patch RxNorm: 9098229 Apply 1 Patch Topical QD (on for 12 hours, off for 12 hours) 09/01/19 No Stop Date Active melatonin 3 mg tablet RxNorm: 230576 Take 2 Tablet(s) Oral QHS every night at bedtime as needed (may repeat once) 09/01/19 No Stop Date Active Pen Needle 30 gauge x 08/02 RxNorm: Use as directed to administer insulin up to 3x daily 09/01/19 023 Inactive Januvia 100 mg tablet RxNorm: 243737 Take 1 Tablet(s) Oral QD 07/23/19 024 Active 2nd REQUEST FOR REFILLS 07-22-2022 NEED KIM PLEASE = THANK YOU duloxetine 60 mg capsule,delayed release RxNorm: 857257 Take 2 Capsule(s) Oral QD 07/23/19 024 Active 2nd REQUEST FOR REFILLS 07-22-2022 NEED KIM PLEASE = THANK YOU pantoprazole 40 mg tablet,delayed release RxNorm: 989305 TAKE 1 TABLET BY MOUTH EVERY MORNING BEFORE BREAKFAST 07/23/19 024 Active 2nd REQUEST FOR REFILLS 07-22-2022 NEED KIM PLEASE = THANK YOU magnesium oxide 400 mg (241.3 mg magnesium) tablet RxNorm: 393469 Take 1 Tablet(s) Oral BID 07/23/19 024 Active 2nd REQUEST FOR REFILLS 07-22-2022 NEED KIM PLEASE = THANK YOU acetaminophen 500 mg tablet RxNorm: 842044 Take 2 Tablet(s) Oral TID 07/23/19 23 024 Active 2nd REQUEST FOR REFILLS 07-22-2022 NEED KIM PLEASE = THANK YOU risperidone 2 mg tablet RxNorm: 332686 Take 1 Tablet(s) Oral BID 07/23/19 23 024 Active 2nd REQUEST FOR REFILLS 07-22-2022 NEED KIM PLEASE = THANK YOU hydrochlorothiazide 25 mg tablet RxNorm: 424625 Take 1 Tablet(s) Oral QD 07/23/19 23 024 Active 2nd REQUEST FOR REFILLS 07-22-2022 NEED KIM PLEASE = THANK YOU potassium chloride ER 10 mEq capsule,extended release RxNorm: 917723 TAKE 1 CAPSULE BY MOUTH TWICE DAILY WITH MEAL(S) 07/23/19 23 023 Inactive 2nd REQUEST FOR REFILLS 07-22-2022 NEED KIM PLEASE = THANK YOU buprenorphine HCl 2 mg sublingual tablet RxNorm: 118726 Take 1 Tablet(s) Sublingual TID 07/19/19 23 023 Inactive buprenorphine HCl 2 mg sublingual tablet RxNorm: 659075 Take 1 Tablet(s) Sublingual TID 07/19/19 23 023 Inactive oxycodone 5 mg tablet RxNorm: 9089324 Take 1 Tablet(s) Oral BID x7 days then decrease to 1 tab once daily x 7 days then d/c 07/09/19 23 023 Inactive latanoprost 0.005 % eye drops RxNorm: 039100 Take 1 Drop(s) Both eyes QHS every night at bedtime 07/07/19 23 024 Active buprenorphine 5 mcg/hour weekly transdermal patch RxNorm: 444187 Apply 1 Transdermal once every 7 days 07/06/19 23 023 Inactive zolpidem 5 mg tablet RxNorm: 538777 Take 1 Tablet(s) Oral QHS every night at bedtime 07/06/19 23 023 Inactive buprenorphine 5 mcg/hour weekly transdermal patch RxNorm: 814149 Apply 1 Transdermal once every 7 days 07/06/19 23 023 Inactive start after stops oxycodone. belbuca film not covered famotidine 20 mg tablet RxNorm: 959467 Give 1 Tablet(s) Oral QHS every night at bedtime 07/02/19 23 024 Active torsemide 20 mg tablet RxNorm: 610186 Take 1 Tablet(s) Oral QAM every morning 07/02/19 23 024 Active atorvastatin 10 mg tablet RxNorm: 862702 Take 1 Tablet(s) Oral QHS every night at bedtime 07/02/19 23 024 Active dorzolamide 22.3 mg-timolol 6.8 mg/mL eye drops RxNorm: 0673571 Apply 1 Drop(s) Both eyes BID 07/02/19 23 024 Active fluticasone propionate 50 mcg/actuation nasal spray,suspension RxNorm: 0196476 [place]view 2 [place] Nasal QD - Daily both nostrils 07/02/19 024 Active acetaminophen 500 mg tablet RxNorm: 192177 Take 2 Tablet(s) Oral TID 07/02/19 023 Inactive amlodipine 5 mg tablet RxNorm: 353245 Take 1 Tablet(s) Oral QD 07/02/19 023 Inactive nicotine 21 mg/24 hr daily transdermal patch RxNorm: 313443 Apply 1 Patch Transdermal QD Remove old patch prior to placing the new one 07/02/19 023 Inactive gabapentin 600 mg tablet RxNorm: 367028 Take 1 Tablet(s) Oral TID 07/02/19 023 Inactive risperidone 2 mg tablet RxNorm: 522869 Take 1 Tablet(s) Oral BID 07/02/19 023 Inactive pantoprazole 40 mg intravenous solution RxNorm: 050444 Take 1 Tablet(s) Intravenous QAM every morning 07/02/19 023 Inactive Januvia 100 mg tablet RxNorm: 797718 Take 1 Tablet(s) Oral QD 07/02/19 023 Inactive potassium chloride ER 10 mEq tablet,extended release RxNorm: 828992 Take 1 Tablet(s) Oral BID 07/02/19 023 Inactive Belbuca 75 mcg buccal film RxNorm: 2726902 Take 1/2 film (37.5mcg) (cut diagonally) BID (start AFTER stopping oxycodone) 07/02/19 023 Inactive start belbuca in 7 days AFTER patient stops oxycodone aspirin 81 mg tablet,delayed release RxNorm: 262457 Take 1 Tablet(s) Oral QD 07/02/19 023 Inactive latanoprost 0.005 % eye drops RxNorm: 970671 Take 1 Drop(s) Both eyes QHS every night at bedtime 07/02/19 023 Inactive Systane Ultra 0.4 %-0.3 % eye drops RxNorm: 367020 Apply 1 Drop(s) Both eyes QID 07/02/19 023 Inactive Lanramos Solostar U-100 Insulin 100 unit/mL (3 mL) subcutaneous pen RxNorm: 214580 Take 40 Unit(s) Subcutaneous QHS every night at bedtime 07/02/19 023 Inactive oxybutynin chloride 5 mg tablet RxNorm: 173958 Administer 1 Tablet(s) Oral QHS every night at bedtime 07/02/19 023 Inactive Miralax 17 gram oral powder packet RxNorm: 700582 Take 1 Packet Oral QD 07/02/19 023 Inactive hydrochlorothiazide 25 mg tablet RxNorm: 788227 Take 1 Tablet(s) Oral QD 07/02/19 023 Inactive oxycodone 5 mg tablet RxNorm: 4817162 Take 1 Tablet(s) Oral TID then discontinue and start belbuca (d/c 10mg TID) 07/02/19 023 Inactive stop after 7 days duloxetine 60 mg capsule,delayed release RxNorm: 696517 Take 2 Capsule(s) Oral QD 07/02/19 023 Inactive Narcan 4 mg/actuation nasal spray RxNorm: 6186379 Give 1 [place] Nasal UD as directed 1 spray contents of ONE device into nostril, call 911. May repeat once with 2nd device 07/02/19 023 Inactive magnesium oxide 400 mg (241.3 mg magnesium) tablet RxNorm: 739181 Give 1 Tablet(s) Oral BID 07/02/19 023 Inactive cholecalciferol (vitamin D3) 25 mcg (1,000 unit) tablet RxNorm: 213934 Take 1 Tablet(s) Oral QAM every morning 07/02/19 023 Inactive oxycodone 5 mg tablet RxNorm: 2780087 Take 2 Tablet(s) Oral TID PRN 06/04/19 23 023 Inactive azithromycin 250 mg tablet RxNorm: 471945 Take Tablet(s) Oral QD 2 Tablets PO QD x 1 Day - Then 1 Tablet PO QD x 4 Days 05/10/19 023 Inactive oxycodone 5 mg tablet RxNorm: 7895637 Take 2 Tablet(s) Oral TID /difficulty breathing 05/03/19 023 Inactive oxycodone 5 mg tablet RxNorm: 2433457 Take 2 Tablet(s) Oral TID /difficulty breathing 03/03/20 22 022 Inactive azithromycin 250 mg tablet RxNorm: 555136 Take Tablet(s) Oral QD 2 Tablets PO QD x 1 Day - Then 1 Tablet PO QD x 4 Days 05/10/19 023 Inactive zolpidem 5 mg tablet RxNorm: 110083 Take 1 Tablet(s) Oral QHS every night [...] CHNG SMOKING 3-[address]: 2 49209824 CPT-4: 97703 06/29/2022 Reason For Visit No Reason For Visit data Plan of Care Planned Activity Notes Codes Status Date Referral: [facility] WPtel: [phone] [place], [place] [id number] [place] Referral Records Received 07/18/2022 Instructions Comment Date Rena is a resident a [facility].?? Previously was seen by doctor in [place].?? First [facility] visit 03/10.?? Arthritis/pain complaints and anxiety are her biggest concerns.?? Johnnie just (in 2020). 2 sons - son Korey visits (From [place]).?? 10/27/2022
--- OUTSIDE RECORDS SUMMARY | 2022-12-08 12:47 | XMS_ITS | CCD ---
Author Name Unknown Organization Unknown Care Team Providers [facility] Recruiting Intern Name Role Phone Donn MICHAUD, Miguel A Primary Care Provider Unavaila ble Unavailable Chronic Care Management Unavaila ble Summary Purpose DataExchange Insurance Providers Payer name Policy type / Coverage type Covered constitution party ID Effective Begin Date Effective End Date [place] Blue [place]Blue [place] [id number] 2022 [place] [id number] 2022 Unknown Family history Mother Diagnosis Age At Onset Glaucoma Unknown Brother Diagnosis Age At Onset Visual disturbance/blindness Unknown Glaucoma Unknown Father Diagnosis Age At Onset Stomach cancer Unknown Social History Social History Element Codes Description Effec tive Dates Tobacco history SNOMED CT: 46163755 Current every day smoker 07/01/[address]: 018567075 No Alcohol Consum ption 07/01/2022 Allergies, Adverse Reactions, Alerts Substance Reaction Codes Entered Date Inactivated Date Status Bee Sting Unknown 03/03/2022 No Inactive Date Ac tive NSAIDS Unknown 03/03/2022 No Inactive Date Ac tive PENICILLINS Unknown 03/03/2022 No Inactive Date Active losartan RxNorm: 373431 03/03/2022 No Inactive Da te Active aspirin Unknown 03/03/2022 No Inactive Date Ac tive tramadol RxNorm: 27996 03/03/2022 No Inactive Marek e Active Other: [...] 21 mg/24 hr daily transdermal patch RxNorm: 164527 Apply 1 Transdermal QD 11/29/19 23 023 Inactive loratadine 10 mg tablet RxNorm: 965825 Take 1 Tablet(s) Oral QD as needed 11/23/19 23 024 Active loratadine 10 mg tablet RxNorm: 887332 Take 1 Tablet(s) Oral QD as needed 11/23/19 23 023 Inactive nicotine 21 mg/24 hr daily transdermal patch RxNorm: 199388 Apply 1 Transdermal QD 11/16/19 23 023 Inactive aspirin 81 mg tablet,delayed release RxNorm: 642107 Take 1 Tablet(s) Oral QD 11/15/19 024 Active 2ND REQUEST 11/11/2022 NEED KIM PLEASE THANK YOU nicotine 21 mg/24 hr daily transdermal patch RxNorm: 142877 Apply 1 Transdermal QD 11/02/19 023 Inactive amlodipine 10 mg tablet RxNorm: 465112 Take 1 Tablet(s) Oral QD 10/20/19 23 024 Active nicotine 21 mg/24 hr daily transdermal patch RxNorm: 990963 APPLY 1 PATCH ONCE DAILY 10/18/19 023 Inactive Pen Needle 30 gauge x 5/16 RxNorm: Use 1 Unit(s) TID Use as directed to administer insulin up to 3x daily 10/12/19 23 023 Inactive cholecalciferol (vitamin D3) 25 mcg (1,000 unit) tablet RxNorm: 382530 TAKE 1 TABLET BY MOUTH DAILY (1,000 UNITS) 09/14/19 024 Active 09/13/2022 PROACTIVE REFILL REQUEST FOR NEXT CYCLE PLEASE THANK YOU Systane Ultra 0.4 %-0.3 % eye drops RxNorm: 207078 Instill 1 Drop(s) Both eyes QID 09/06/19 No Stop Date Active Lantus Solostar U-100 Insulin 100 unit/mL (3 mL) subcutaneous pen RxNorm: 215390 Inject 20 Unit(s) Subcutaneous QHS every night at bedtime 09/01/19 No Stop Date Active diclofenac 1 % topical gel RxNorm: 477121 Apply 4 Gram(s) Topical QID (bilateral knees or area of pain per patient's request) 09/01/19 No Stop Date Active acetaminophen 325 mg tablet RxNorm: 778990 Take 1 Tablet(s) Oral Q4H every four hours as needed 09/01/19 No Stop Date Active Humalog KwikPen (U-100) Insulin 100 unit/mL subcutaneous RxNorm: 6042189 Unit(s) Subcutaneous Inject per sliding scale BID before lunch and dinner 09/01/19 No Stop Date Active Aspercreme (lidocaine) 4 % topical patch RxNorm: 0088053 Apply 1 Patch Topical QD (on for 12 hours, off for 12 hours) 09/01/19 No Stop Date Active melatonin 3 mg tablet RxNorm: 525706 Take 2 Tablet(s) Oral QHS every night at bedtime as needed (may repeat once) 09/01/19 No Stop Date Active Pen Needle 30 gauge x 516 RxNorm: Use as directed to administer insulin up to 3x daily 09/01/19 23 023 Inactive Januvia 100 mg tablet RxNorm: 761030 Take 1 Tablet(s) Oral QD 07/23/19 23 024 Active 2nd REQUEST FOR REFILLS 07-22-2022 NEED KIM PLEASE = THANK YOU duloxetine 60 mg capsule,delayed release RxNorm: 811752 Take 2 Capsule(s) Oral QD 07/23/19 23 024 Active 2nd REQUEST FOR REFILLS 07-22-2022 NEED KIM PLEASE = THANK YOU pantoprazole 40 mg tablet,delayed release RxNorm: 473700 TAKE 1 TABLET BY MOUTH EVERY MORNING BEFORE BREAKFAST 07/23/19 23 024 Active 2nd REQUEST FOR REFILLS 07-22-2022 NEED KIM PLEASE = THANK YOU magnesium oxide 400 mg (241.3 mg magnesium) tablet RxNorm: 272402 Take 1 Tablet(s) Oral BID 07/23/19 23 024 Active 2nd REQUEST FOR REFILLS 07-22-2022 NEED KIM PLEASE = THANK YOU acetaminophen 500 mg tablet RxNorm: 176939 Take 2 Tablet(s) Oral TID 07/23/19 23 024 Active 2nd REQUEST FOR REFILLS 07-22-2022 NEED KIM PLEASE = THANK YOU risperidone 2 mg tablet RxNorm: 481316 Take 1 Tablet(s) Oral BID 07/23/19 23 024 Active 2nd REQUEST FOR REFILLS 07-22-2022 NEED KIM PLEASE = THANK YOU hydrochlorothiazide 25 mg tablet RxNorm: 440054 Take 1 Tablet(s) Oral QD 07/23/19 23 024 Active 2nd REQUEST FOR REFILLS 07-22-2022 NEED KIM PLEASE = THANK YOU potassium chloride ER 10 mEq capsule,extended release RxNorm: 974387 TAKE 1 CAPSULE BY MOUTH TWICE DAILY WITH MEAL(S) 07/23/19 023 Inactive 2nd REQUEST FOR REFILLS 07-22-2022 NEED KIM PLEASE = THANK YOU buprenorphine HCl 2 mg sublingual tablet RxNorm: 491803 Take 1 Tablet(s) Sublingual TID 07/19/19 23 023 Inactive buprenorphine HCl 2 mg sublingual tablet RxNorm: 447106 Take 1 Tablet(s) Sublingual TID 07/19/19 023 Inactive oxycodone 5 mg tablet RxNorm: 2554976 Take 1 Tablet(s) Oral BID x7 days then decrease to 1 tab once daily x 7 days then d/c 07/09/19 23 023 Inactive latanoprost 0.005 % eye drops RxNorm: 725404 Take 1 Drop(s) Both eyes QHS every night at bedtime 07/07/19 024 Active buprenorphine 5 mcg/hour weekly transdermal patch RxNorm: 782030 Apply 1 Transdermal once every 7 days 07/06/19 23 023 Inactive zolpidem 5 mg tablet RxNorm: 045171 Take 1 Tablet(s) Oral QHS every night at bedtime 07/06/19 23 023 Inactive buprenorphine 5 mcg/hour weekly transdermal patch RxNorm: 620376 Apply 1 Transdermal once every 7 days 07/06/19 23 023 Inactive start after stops oxycodone. belbuca film not covered famotidine 20 mg tablet RxNorm: 582839 Give 1 Tablet(s) Oral QHS every night at bedtime 07/02/19 23 024 Active torsemide 20 mg tablet RxNorm: 834576 Take 1 Tablet(s) Oral QAM every morning 07/02/19 23 024 Active atorvastatin 10 mg tablet RxNorm: 877313 Take 1 Tablet(s) Oral QHS every night at bedtime 07/02/19 23 024 Active dorzolamide 22.3 mg-timolol 6.8 mg/mL eye drops RxNorm: 1157616 Apply 1 Drop(s) Both eyes BID 07/02/19 23 024 Active fluticasone propionate 50 mcg/actuation nasal spray,suspension RxNorm: 7845299 Alex 2 [place] Nasal QD - Daily both nostrils 07/02/19 23 024 Active acetaminophen 500 mg tablet RxNorm: 602830 Take 2 Tablet(s) Oral TID 07/02/19 023 Inactive amlodipine 5 mg tablet RxNorm: 003429 Take 1 Tablet(s) Oral QD 07/02/19 023 Inactive nicotine 21 mg/24 hr daily transdermal patch RxNorm: 182255 Apply 1 Patch Transdermal QD Remove old patch prior to placing the new one 07/02/19 023 Inactive gabapentin 600 mg tablet RxNorm: 215878 Take 1 Tablet(s) Oral TID 07/02/19 023 Inactive risperidone 2 mg tablet RxNorm: 540839 Take 1 Tablet(s) Oral BID 07/02/19 023 Inactive pantoprazole 40 mg intravenous solution RxNorm: 620556 Take 1 Tablet(s) Intravenous QAM every morning 07/02/19 023 Inactive Januvia 100 mg tablet RxNorm: 209624 Take 1 Tablet(s) Oral QD 07/02/19 023 Inactive potassium chloride ER 10 mEq tablet,extended release RxNorm: 710539 Take 1 Tablet(s) Oral BID 07/02/19 023 Inactive Belbuca 75 mcg buccal film RxNorm: 0827438 Take 1/2 film (37.5mcg) (cut diagonally) BID (start AFTER stopping oxycodone) 07/02/19 023 Inactive start belbuca in 7 days AFTER patient stops oxycodone aspirin 81 mg tablet,delayed release RxNorm: 645329 Take 1 Tablet(s) Oral QD 07/02/19 023 Inactive latanoprost 0.005 % eye drops RxNorm: 994965 Take 1 Drop(s) Both eyes QHS every night at bedtime 07/02/19 023 Inactive Systane Ultra 0.4 %-0.3 % eye drops RxNorm: 273066 Apply 1 Drop(s) Both eyes QID 07/02/19 023 Inactive Lantus Solostar U-100 Insulin 100 unit/mL (3 mL) subcutaneous pen RxNorm: 033699 Take 40 Unit(s) Subcutaneous QHS every night at bedtime 07/02/19 23 023 Inactive oxybutynin chloride 5 mg tablet RxNorm: 530741 Administer 1 Tablet(s) Oral QHS every night at bedtime 07/02/19 023 Inactive Miralax 17 gram oral powder packet RxNorm: 824159 Take 1 Packet Oral QD 07/02/19 023 Inactive hydrochlorothiazide 25 mg tablet RxNorm: 066582 Take 1 Tablet(s) Oral QD 07/02/19 023 Inactive oxycodone 5 mg tablet RxNorm: 1555399 Take 1 Tablet(s) Oral TID then discontinue and start belbuca (d/c 10mg TID) 07/02/19 023 Inactive stop after 7 days duloxetine 60 mg capsule,delayed release RxNorm: 305597 Take 2 Capsule(s) Oral QD 07/02/19 023 Inactive Narcan 4 mg/actuation nasal spray RxNorm: 5838742 Give 1 [place] Nasal UD as directed 1 spray contents of ONE device into nostril, call 911. May repeat once with 2nd device 07/02/19 023 Inactive magnesium oxide 400 mg (241.3 mg magnesium) tablet RxNorm: 452717 Give 1 Tablet(s) Oral BID 07/02/19 023 Inactive cholecalciferol (vitamin D3) 25 mcg (1,000 unit) tablet RxNorm: 419695 Take 1 Tablet(s) Oral QAM every morning 07/02/19 023 Inactive oxycodone 5 mg tablet RxNorm: 6894375 Take 2 Tablet(s) Oral TID PRN 06/04/19 23 023 Inactive azithromycin 250 mg tablet RxNorm: 208307 Take Tablet(s) Oral QD 2 Tablets PO QD x 1 Day - Then 1 Tablet PO QD x 4 Days 05/10/19 23 023 Inactive oxycodone 5 mg tablet RxNorm: 5506704 Take 2 Tablet(s) Oral TID /difficulty breathing 05/03/19 23 023 Inactive oxycodone 5 mg tablet RxNorm: 1197271 Take 2 Tablet(s) Oral TID /difficulty breathing 03/03/20 22 022 Inactive azithromycin 250 mg tablet RxNorm: 927540 Take Tablet(s) Oral QD 2 Tablets PO QD x 1 Day - Then 1 Tablet PO QD x 4 Days 05/10/19 023 Inactive zolpidem 5 mg tablet RxNorm: 004163 Take 1 Tablet(s) Oral QHS every night [...] CHNG SMOKING 3-[address]: 2 36012445 CPT-4: 56989 06/29/2022 Reason For Visit No Reason For Visit data Plan of Care Planned Activity Notes Codes Status Date Referral: [facility] WPtel: [id number] [place], [place] [id number] Referral Records Received 07/18/2022 Instructions Comment Date Rena is a resident a [facility].?? Previously was seen by doctor in [place].?? First [facility] visit 03/10.?? Arthritis/pain complaints and anxiety are her biggest concerns.?? Johnnie just (in 2020). 2 sons - son Korey visits (From [place]).?? 10/27/2022
--- OUTSIDE RECORDS SUMMARY | 2022-12-08 12:47 | XMS_ITS | CCD ---
Author Name Unknown Organization Unknown Care Team Providers Care Brand Ambassador Promotional Model Name Role Phone Donn MICHAUD, Miguel A Primary Care Provider Unavaila ble Unavailable Chronic Care Management Unavaila ble Summary Purpose DataExchange Insurance Providers Payer name Policy type / Coverage type Covered alliance party ID Effective Begin Date Effective End Date [place] Blue [place]Blue Shield [id number] 2022 [place] [id number] 2022 Unknown Family history Mother Diagnosis Age At Onset Glaucoma Unknown Brother Diagnosis Age At Onset Visual disturbance/blindness Unknown Glaucoma Unknown Father Diagnosis Age At Onset Stomach cancer Unknown Social History Social History Element Codes Description Effec tive Dates Tobacco history SNOMED CT: 79483673 Current every day smoker 07/01/[address]: 162135218 No Alcohol Consum ption 07/01/2022 Allergies, Adverse Reactions, Alerts Substance Reaction Codes Entered Date Inactivated Date Status Bee Sting Unknown 03/03/2022 No Inactive Date Ac tive NSAIDS Unknown 03/03/2022 No Inactive Date Ac tive PENICILLINS Unknown 03/03/2022 No Inactive Date Active losartan RxNorm: 975098 03/03/2022 No Inactive Da te Active aspirin Unknown 03/03/2022 No Inactive Date Ac tive tramadol RxNorm: 03375 03/03/2022 No Inactive Marek e Active Other: [...] Headache ICD-10: R51.9 ICD-9: 784.0 03/03/2022 Active long-term (current) use of insulin ICD-10: Z79.4 03/03 Active Medications Medication Codes Instructions Start Date Stop Date Status Fill Instructions loratadine 10 mg tablet RxNorm: 261093 Take 1 Tablet(s) Oral QD as needed 11/23/19 23 023 Inactive loratadine 10 mg tablet RxNorm: 385470 Take 1 Tablet(s) Oral QD as needed 11/23/19 23 024 Active nicotine 21 mg/24 hr daily transdermal patch RxNorm: 360391 Apply 1 Transdermal QD 11/16/19 23 023 Inactive aspirin 81 mg tablet,delayed release RxNorm: 500054 Take 1 Tablet(s) Oral QD 11/15/19 024 Active 2ND REQUEST 11/11/2022 NEED KIM PLEASE THANK YOU nicotine 21 mg/24 hr daily transdermal patch RxNorm: 847798 Apply 1 Transdermal QD 11/02/19 023 Inactive amlodipine 10 mg tablet RxNorm: 641465 Take 1 Tablet(s) Oral QD 10/20/19 024 Active nicotine 21 mg/24 hr daily transdermal patch RxNorm: 789602 APPLY 1 PATCH ONCE DAILY 10/18/19 023 Inactive Pen Needle 30 gauge x 5/16 RxNorm: Use 1 Unit(s) TID Use as directed to administer insulin up to 3x daily 10/12/19 Inactive cholecalciferol (vitamin D3) 25 mcg (1,000 unit) tablet RxNorm: 654025 TAKE 1 TABLET BY MOUTH DAILY (1,000 UNITS) 09/14/19 024 Active 09/13/2022 PROACTIVE REFILL REQUEST FOR NEXT CYCLE PLEASE THANK YOU Systane Ultra 0.4 %-0.3 % eye drops RxNorm: 214785 Instill 1 Drop(s) Both eyes QID 09/06/19 No Stop Date Active Lantus Solostar U-100 Insulin 100 unit/mL (3 mL) subcutaneous pen RxNorm: 927004 Inject 20 Unit(s) Subcutaneous QHS every night at bedtime 09/01/19 No Stop Date Active diclofenac 1 % topical gel RxNorm: 305616 Apply 4 Gram(s) Topical QID (bilateral knees or area of pain per patient's request) 09/01/19 No Stop Date Active acetaminophen 325 mg tablet RxNorm: 350753 Take 1 Tablet(s) Oral Q4H every four hours as needed 09/01/19 No Stop Date Active Humalog KwikPen (U-100) Insulin 100 unit/mL subcutaneous RxNorm: 3574281 Unit(s) Subcutaneous Inject per sliding scale BID before lunch and dinner 09/01/19 No Stop Date Active Aspercreme (lidocaine) 4 % topical patch RxNorm: 5130634 Apply 1 Patch Topical QD (on for 12 hours, off for 12 hours) 09/01/19 No Stop Date Active melatonin 3 mg tablet RxNorm: 026386 Take 2 Tablet(s) Oral QHS every night at bedtime as needed (may repeat once) 09/01/19 No Stop Date Active Pen Needle 30 gauge x 08/02 RxNorm: Use as directed to administer insulin up to 3x daily 09/01/19 023 Inactive Januvia 100 mg tablet RxNorm: 887435 Take 1 Tablet(s) Oral QD 07/23/19 23 024 Active 2nd REQUEST FOR REFILLS 07-22-2022 NEED KIM PLEASE = THANK YOU duloxetine 60 mg capsule,delayed release RxNorm: 183238 Take 2 Capsule(s) Oral QD 07/23/19 024 Active 2nd REQUEST FOR REFILLS 07-22-2022 NEED KIM PLEASE = THANK YOU pantoprazole 40 mg tablet,delayed release RxNorm: 477494 TAKE 1 TABLET BY MOUTH EVERY MORNING BEFORE BREAKFAST 07/23/19 024 Active 2nd REQUEST FOR REFILLS 07-22-2022 NEED KIM PLEASE = THANK YOU magnesium oxide 400 mg (241.3 mg magnesium) tablet RxNorm: 506213 Take 1 Tablet(s) Oral BID 07/23/19 024 Active 2nd REQUEST FOR REFILLS 07-22-2022 NEED KIM PLEASE = THANK YOU acetaminophen 500 mg tablet RxNorm: 882845 Take 2 Tablet(s) Oral TID 07/23/19 23 024 Active 2nd REQUEST FOR REFILLS 07-22-2022 NEED KIM PLEASE = THANK YOU risperidone 2 mg tablet RxNorm: 071900 Take 1 Tablet(s) Oral BID 07/23/19 23 024 Active 2nd REQUEST FOR REFILLS 07-22-2022 NEED KIM PLEASE = THANK YOU hydrochlorothiazide 25 mg tablet RxNorm: 001580 Take 1 Tablet(s) Oral QD 07/23/19 23 024 Active 2nd REQUEST FOR REFILLS 07-22-2022 NEED KIM PLEASE = THANK YOU potassium chloride ER 10 mEq capsule,extended release RxNorm: 608995 TAKE 1 CAPSULE BY MOUTH TWICE DAILY WITH MEAL(S) 07/23/19 23 023 Inactive 2nd REQUEST FOR REFILLS 07-22-2022 NEED KIM PLEASE = THANK YOU buprenorphine HCl 2 mg sublingual tablet RxNorm: 008066 Take 1 Tablet(s) Sublingual TID 07/19/19 23 023 Inactive buprenorphine HCl 2 mg sublingual tablet RxNorm: 947907 Take 1 Tablet(s) Sublingual TID 07/19/19 23 023 Inactive oxycodone 5 mg tablet RxNorm: 7086755 Take 1 Tablet(s) Oral BID x7 days then decrease to 1 tab once daily x 7 days then d/c 07/09/19 23 023 Inactive latanoprost 0.005 % eye drops RxNorm: 293624 Take 1 Drop(s) Both eyes QHS every night at bedtime 07/07/19 23 024 Active buprenorphine 5 mcg/hour weekly transdermal patch RxNorm: 684218 Apply 1 Transdermal once every 7 days 07/06/19 23 023 Inactive zolpidem 5 mg tablet RxNorm: 804450 Take 1 Tablet(s) Oral QHS every night at bedtime 07/06/19 23 023 Inactive buprenorphine 5 mcg/hour weekly transdermal patch RxNorm: 092495 Apply 1 Transdermal once every 7 days 07/06/19 23 023 Inactive start after stops oxycodone. belbuca film not covered famotidine 20 mg tablet RxNorm: 317553 Give 1 Tablet(s) Oral QHS every night at bedtime 07/02/19 23 024 Active torsemide 20 mg tablet RxNorm: 082763 Take 1 Tablet(s) Oral QAM every morning 07/02/19 23 024 Active atorvastatin 10 mg tablet RxNorm: 640221 Take 1 Tablet(s) Oral QHS every night at bedtime 07/02/19 23 024 Active dorzolamide 22.3 mg-timolol 6.8 mg/mL eye drops RxNorm: 7127076 Apply 1 Drop(s) Both eyes BID 07/02/19 23 024 Active fluticasone propionate 50 mcg/actuation nasal spray,suspension RxNorm: 9581866 [place] 2 [place] Nasal QD - Daily both nostrils 07/02/19 23 024 Active acetaminophen 500 mg tablet RxNorm: 049880 Take 2 Tablet(s) Oral TID 07/02/19 023 Inactive amlodipine 5 mg tablet RxNorm: 474202 Take 1 Tablet(s) Oral QD 07/02/19 023 Inactive nicotine 21 mg/24 hr daily transdermal patch RxNorm: 501979 Apply 1 Patch Transdermal QD Remove old patch prior to placing the new one 07/02/19 023 Inactive gabapentin 600 mg tablet RxNorm: 852713 Take 1 Tablet(s) Oral TID 07/02/19 023 Inactive risperidone 2 mg tablet RxNorm: 597757 Take 1 Tablet(s) Oral BID 07/02/19 023 Inactive pantoprazole 40 mg intravenous solution RxNorm: 980654 Take 1 Tablet(s) Intravenous QAM every morning 07/02/19 023 Inactive Januvia 100 mg tablet RxNorm: 875524 Take 1 Tablet(s) Oral QD 07/02/19 023 Inactive potassium chloride ER 10 mEq tablet,extended release RxNorm: 817771 Take 1 Tablet(s) Oral BID 07/02/19 023 Inactive Belbuca 75 mcg buccal film RxNorm: 9251703 Take 1/2 film (37.5mcg) (cut diagonally) BID (start AFTER stopping oxycodone) 07/02/19 023 Inactive start belbuca in 7 days AFTER patient stops oxycodone aspirin 81 mg tablet,delayed release RxNorm: 186153 Take 1 Tablet(s) Oral QD 07/02/19 023 Inactive latanoprost 0.005 % eye drops RxNorm: 124783 Take 1 Drop(s) Both eyes QHS every night at bedtime 07/02/19 023 Inactive Systane Ultra 0.4 %-0.3 % eye drops RxNorm: 097248 Apply 1 Drop(s) Both eyes QID 07/02/19 023 Inactive Lantus Solostar U-100 Insulin 100 unit/mL (3 mL) subcutaneous pen RxNorm: 488001 Take 40 Unit(s) Subcutaneous QHS every night at bedtime 07/02/19 23 023 Inactive oxybutynin chloride 5 mg tablet RxNorm: 993057 Administer 1 Tablet(s) Oral QHS every night at bedtime 07/02/19 023 Inactive Miralax 17 gram oral powder packet RxNorm: 631444 Take 1 Packet Oral QD 07/02/19 023 Inactive hydrochlorothiazide 25 mg tablet RxNorm: 058720 Take 1 Tablet(s) Oral QD 07/02/19 023 Inactive oxycodone 5 mg tablet RxNorm: 9013156 Take 1 Tablet(s) Oral TID then discontinue and start belbuca (d/c 10mg TID) 07/02/19 023 Inactive stop after 7 days duloxetine 60 mg capsule,delayed release RxNorm: 138585 Take 2 Capsule(s) Oral QD 07/02/19 023 Inactive Narcan 4 mg/actuation nasal spray RxNorm: 0359872 Give 1 [place] Nasal UD as directed 1 spray contents of ONE device into nostril, call 911. May repeat once with 2nd device 07/02/19 023 Inactive magnesium oxide 400 mg (241.3 mg magnesium) tablet RxNorm: 231974 Give 1 Tablet(s) Oral BID 07/02/19 023 Inactive cholecalciferol (vitamin D3) 25 mcg (1,000 unit) tablet RxNorm: 700984 Take 1 Tablet(s) Oral QAM every morning 07/02/19 023 Inactive oxycodone 5 mg tablet RxNorm: 5565288 Take 2 Tablet(s) Oral TID PRN 06/04/19 23 023 Inactive azithromycin 250 mg tablet RxNorm: 606815 Take Tablet(s) Oral QD 2 Tablets PO QD x 1 Day - Then 1 Tablet PO QD x 4 Days 05/10/19 23 023 Inactive oxycodone 5 mg tablet RxNorm: 1352976 Take 2 Tablet(s) Oral TID /difficulty breathing 05/03/19 023 Inactive oxycodone 5 mg tablet RxNorm: 1715451 Take 2 Tablet(s) Oral TID /difficulty breathing 03/03/20 22 022 Inactive azithromycin 250 mg tablet RxNorm: 904621 Take Tablet(s) Oral QD 2 Tablets PO QD x 1 Day - Then 1 Tablet PO QD x 4 Days 05/10/19 23 023 Inactive zolpidem 5 mg tablet RxNorm: 441313 Take 1 Tablet(s) Oral QHS every night [...] CHNG SMOKING 3-[address]: 2 24761899 CPT-4: 37235 06/29/2022 Reason For Visit No Reason For Visit data Plan of Care Planned Activity Notes Codes Status Date Referral: [facility] WPtel: [id number] [place], [place] [id number] [place] Referral Records Received 07/18/2022 Instructions Comment Date Rena is a resident a [facility].?? Previously was seen by doctor in [place].?? First [facility] visit 03/10.?? Arthritis/pain complaints and anxiety are her biggest concerns.?? Johnnie just (in 2020). 2 sons - son Korey visits (From [place]).?? 10/27/2022
[2022-12-08 12:55] LABS: Albumin* 4.3 g/dL (3.3-5.0); Chloride* 95 mmol/L (96-114); Sodium* 139 mmol/L (135-149)
[2022-12-08 12:56] LABS: Potassium* 3.2 mmol/L (3.6-5.1)
[2022-12-08 12:58] LABS: Alkaline Phosphatase* 102 U/L (40-150); Anion Gap 8 mEq/L (7-15); Aspartate Amino Transferase* 95 U/L (12-35); Blood Urea Nitrogen* 16 mg/dL (7-30); Carbon Dioxide* 36 mmol/L (20-32); Creatinine* 0.7 mg/dL (0.5-1.5); Estimated Glomerular Filt Rate 93 ml/min; Glucose* 146 mg/dL (60-115); Lipase* 113 U/L (23-300); Total Protein* 8.2 g/dL (6.0-8.3)
[2022-12-08 12:59] LABS: Alanine Aminotransferase* 38 U/L (4-35); Calcium* 10.2 mg/dL (8.4-10.6); Magnesium* 2.3 mg/dL (1.5-2.6)
--- NOTE | 2022-12-08 13:10 | CRLHL7_ITS ---
For Patients: As a result of the Century Cures Act, medical imaging exams and procedure reports are released immediately into your electronic medical record. You may view this report before your referring provider. If you have questions, please contact your health care provider. INDICATION: Lethargic, nonresponsive TECHNIQUE: Noncontrast axial CT of the head. Coronal and sagittal reformats. Bone and soft tissue algorithms. COMPARISON: MRI brain report 07/23/2022 FINDINGS: There is motion artifact obscuring the cerebral vertex. The ventricles and cortical sulci are slightly prominent compatible with generalized cerebral volume loss. No midline shift, hydrocephalus, or herniation. No acute intracranial hemorrhage, or abnormal extra-axial fluid collection. Hough-white matter differentiation appears grossly preserved. White matter attenuation is unremarkable. There is scattered intracranial atherosclerotic calcific plaquing. The bony calvarium appears grossly intact. Visualized paranasal sinuses and mastoid air cells are clear. Right lens implant is noted. IMPRESSION: No CT evidence of acute intracranial abnormality given limitations from patient motion. Please note that all CT scans at this facility use dose modulation, iterative reconstruction, and/or weight-based dosing when appropriate to reduce radiation dose to as low as reasonably achievable. Dictated by Abigail De Jesus MD @ 12/08/2022 2:15:41 PM (Electronically Signed)
[2022-12-08] MEDS: LACTATED RINGERS 1000 ML 1,000 ML IV (13:11)
[2022-12-08 13:17] LABS: Troponin I* < 0.01 ng/mL (0.01-0.04)
[2022-12-08 13:19] LABS: SARS PCR* Negative SARS-CoV-2 (Negative)
--- NOTE | 2022-12-08 13:34 | CRLHL7_ITS ---
For Patients: As a result of the Century Cures Act, medical imaging exams and procedure reports are released immediately into your electronic medical record. You may view this report before your referring provider. If you have questions, please contact your health care provider. Indication: Altered mental status Comparison: Single-view chest July 22, 2022 Technique: Single AP view chest Findings: There are diffusely increased interstitial markings likely representing mild pulmonary vascular congestion. There is minimal basilar atelectasis. There is no focal consolidation, effusion, or pneumothorax. Stable cardiac silhouette with a tortuous thoracic aorta. The bony thorax is grossly intact. Impression: Diffusely increased interstitial markings likely representing mild pulmonary edema. Dictated by Yobani Conner MD @ 12/08/2022 2:58:55 PM (Electronically Signed)
--- NOTE | 2022-12-08 13:36 | ED.NURSE ---
Lab was in to draw a second set of cultures, pt refused and said no. Explained the importance of the blood draw, pt still declined. Pt has been poked multiple times as she has been a hard stick for an IV.
--- NOTE | 2022-12-08 13:40 | ED.NURSE ---
When asked if pt was in pain, pt replied all over. Did not specify further.
--- NOTE | 2022-12-08 13:43 | ED.NURSE ---
Pt unresponsive to questions when she arrived. Pt is now responding to questions when prompted, with one worded responses. Pt knows where she is at at this time.
--- NOTE | 2022-12-08 14:14 | ED.NURSE ---
IV in pt right wrist was blown. Dr. Bland notified.
[2022-12-08 14:43] LABS: Appearance Urine Cloudy (Clear); Bilirubin Urine Negative (Negative); Blood Urine Trace-intact (Negative); Color Urine Dark yellow (Yellow); Glucose Urine Negative (Negative); Ketones Urine Negative (Negative); Leukocyte Esterase Urine 3+ (Negative); Nitrite Urine Positive (Negative); Protein Urine Negative (Negative); Specific Gravity Urine 1.015 (1.000-1.030)
[2022-12-08 14:55] LABS: Bacteria Urine Many; Squamous Epithelial Cell Urine Moderate (None-Few); WBC Urine 50-100 (0-5)
[2022-12-08 14:56] LABS: Coarse Granular Casts Urine Moderate
[2022-12-08 15:59] LABS: NT Pro B Type NatriureticPept* 30 pg/mL
--- NOTE | 2022-12-08 16:04 | ED.NURSE ---
pt has been resting bed, has been responsive to verbal stimuli.
--- NOTE | 2022-12-08 16:13 | ED.NURSE ---
Report given to alexandre RN, pt going to room CCU4.
--- NOTE | 2022-12-08 17:23 | P.IMHP_ITS ---
Hospitalist- H&P: HPI History of Present Illness Time Seen by Provider: 16:30 Date Seen: 12/08/22 Chief complaint: Lethargic, altered mental status Narrative: Rena Fan is a 72 year old woman who lives at [facility] and presents with a 24 hour history of increasing lethargy and altered mental status. Patient is not able to provide any meaningful history. When I assess her she hardly speaks. At time she answered yes no questions. She looks at me when I speak with her but does not engage in any conversation. Appears comfortable. Much of the information I obtained is from others we have observed her. Reportedly she was in her usual state of health throughout the day yesterday. Towards the evening she became much more weak requiring help with transfers and ambulation. By this morning she was not able to move or transfer without support. She slept in this morning which is unusual for her. Upon trying to awaken her she did not interact at all. She stared at individuals trying to awaken her. Would answer some yes no questions. EMS was summoned and brought her to the emergency department for further assessment. Vital signs were stable. No focal findings on physical exam. Patient obviously lethargic and weak. Extensive workup undertaken which was basically unremarkable save urine analysis suggesting the possibility of a urinary tract infection. Patient thus admitted for observation and initiation of treatment for possible urinary tract infection. Noteworthy is that patient has no IV access and thus we will be attempting to place a midline IV for IV access. Review of Systems Status of ROS: Reports: 10 or more systems reviewed and unremarkable except as noted in History and below Narrative: Unable to obtain a reliable review of systems from the patient. Patient indicates with yes no answers that she is having no problems. Generally slow to respond to questions. She does ask to drink Coke. Able to drink through a straw without any difficulties. Denies any chest heaviness, pressure, tightness, or pain. Denies cough, shortness of breath, dizziness, lightheadedness, palpitations. Denies nausea or vomiting. Denies abdominal discomfort. Denies heartburn. Indicates she thinks she has constipation. Denies blood loss of any sort. No recent trauma or injury. No recent falls. Tells me she still smokes. Denies myalgias or arthralgias. In reviewing her medical record she has a full resuscitation status. Recently hospitalized at [facility] in July 2022, developed respiratory failure, was intubated and placed on ventilator and then transferred to another facility. She has no recollection of this. [facility] Medical History (Updated 12/08/22 @ 18:34 by El Martinez MD) Type 2 diabetes mellitus ?E11.9 - Type 2 diabetes mellitus without complications (ICD-10) Sleep apnea with hypersomnolence ?G47.10 - Hypersomnia, unspecified (ICD-10) ?G47.30 - Sleep apnea, unspecified (ICD-10) Hepatic steatosis ?K76.0 - Fatty (change of) liver, not elsewhere classified (ICD-10) Physical deconditioning ?R53.81 - Other malaise (ICD-10) Polypharmacy ?Z79.899 - Other shelter (current) drug therapy (ICD-10) Chronic, continuous use of opioids ?F11.90 - Opioid use, unspecified, uncomplicated (ICD-10) Heart failure ?I50.9 - Heart failure, unspecified (ICD-10) Osteoarthritis ?M19.90 - Unspecified osteoarthritis, unspecified site (ICD-10) Degenerative disc disease, lumbar ?M51.36 - Other intervertebral disc degeneration, lumbar region (ICD-10) Anxiety, generalized ?F41.1 - Generalized anxiety disorder (ICD-10) Antisocial personality disorder ?F60.2 - Antisocial personality disorder (ICD-10) Back pain ?M54.9 - Dorsalgia, unspecified (ICD-10) Chronic pain syndrome ?G89.4 - Chronic pain syndrome (ICD-10) Nicotine dependence ?F17.200 - Nicotine dependence, unspecified, uncomplicated (ICD-10) Borderline personality disorder ?F60.3 - Borderline personality disorder (ICD-10) Asthma ?J45.909 - Unspecified asthma, uncomplicated (ICD-10) COPD (chronic obstructive pulmonary disease) ?J44.9 - Chronic obstructive pulmonary disease, unspecified (ICD-10) Diabetes mellitus type 2 in obese ?E11.69 - Type 2 diabetes mellitus with other specified complication (ICD-10) ?E66.9 - Obesity, unspecified (ICD-10) Hypertension, essential ?I10 - Essential (primary) hypertension (ICD-10) Obesity ?E66.9 - Obesity, unspecified (ICD-10) Surgical History History of total knee arthroplasty ?Z96.659 - Presence of unspecified artificial knee joint (ICD-10) History of cholecystectomy ?Z90.49 - Acquired absence of other specified parts of digestive tract (ICD- 10) Family History Father Stomach cancer Brother Heart disease Social History Narrative: Patient is a resident of [facility]. She tells me she has been smoking 2 or 3 cigarettes per day. She is attempting to quit. She does not drink alcohol. Her healthcare power of civil attorney would be her son Korey Miles, code status is full. Highest level of school completed/degree received: don't know Smoking Status: Former smoker What tobacco products do you use: cigarettes Smoking quit date/years: <= 15 years ago Do you use any of these nicotine containing products: None Nicotine containing products detail: quit today Second hand tobacco smoke exposure: No How often do you have a drink containing alcohol: never How often do you have six or more drinks on one occasion: Never AUDIT-C Alcohol total score: 0 Non-prescribed substance use: denies use Caffeine: Yes (coke) service: No Meds Home Medications and Allergies Home Medications Medication Instructions Recorded Confirmed Type aspirin 81 mg tablet,delayed 81 mg PO DAILY 10/19/21 12/08/22 History release dorzolamide 22.3 mg-timolol 6.8 1 drp ophthalmic (eye) BID 10/19/21 12/08/22 History mg/mL eye drops duloxetine 60 mg capsule,delayed 120 mg PO DAILY 10/19/21 12/08/22 History release famotidine 20 mg tablet 20 mg PO HS 10/19/21 12/08/22 History fluticasone propionate 50 2 spray intranasal DAILY 10/19/21 12/08/22 History mcg/actuation nasal spray,suspension hydrochlorothiazide 25 mg tablet 25 mg PO DAILY 10/19/21 12/08/22 History insulin aspart U-100 100 unit/mL 1 - 7 unit subcut BID@12,18 10/19/21 12/08/22 History (3 mL) subcutaneous pen insulin glargine 100 unit/mL (3 20 unit subcut HS 10/19/21 12/08/22 History mL) subcutaneous pen (Lantus Solostar U-100 Insulin) latanoprost 0.005 % eye drops 1 drp ophthalmic (eye) HS 10/19/21 12/08/22 History pantoprazole 40 mg tablet,delayed 40 mg PO DAILY 10/19/21 12/08/22 History release risperidone 2 mg tablet 2 mg PO BID 10/19/21 12/08/22 History atorvastatin 10 mg tablet 10 mg PO HS 03/13/22 12/08/22 History cholecalciferol (vitamin D3) 25 1,000 unit PO DAILY 03/13/22 12/08/22 History mcg (1,000 unit) tablet diclofenac sodium 1 % topical gel 4 g topical QID 03/13/22 12/08/22 History epinephrine 0.3 mg/0.3 mL 0.3 mg IM PRN PRN 03/13/22 10/04/22 History injection, auto-injector nicotine 21 mg/24 hr daily 1 patch topical DAILY 03/13/22 10/04/22 History transdermal patch peg 400-propylene glycol 0.4 %-0.3 1 drp ophthalmic (eye) QID 03/13/22 12/08/22 History % eye drops (Systane Ultra) polyethylene glycol 3350 17 17 g PO DAILY 03/13/22 10/04/22 History gram/dose oral powder (Gavilax) sitagliptin phosphate 100 mg 100 mg PO DAILY 03/13/22 12/08/22 History tablet (Januvia) acetaminophen 325 mg tablet 325 - 650 mg PO Q4H PRN 12/08/22 12/08/22 History aluminum-mag hydroxide-simethicone 5 - 10 ml PO ACHS PRN 12/08/22 12/08/22 History 400 mg-400 mg-40 mg/5 mL oral susp (Antacid Maximum Strength) amlodipine 10 mg tablet 10 mg PO DAILY 12/08/22 12/08/22 History calcium carbonate 200 mg calcium 400 - 800 mg PO QID PRN 12/08/22 12/08/22 History (500 mg) chewable tablet (Antacid (calcium carbonate)) dextromethorphan HBr 15 mg/5 mL 15 - 30 mg PO Q4H PRN 12/08/22 12/08/22 History oral liquid dextromethorphan-guaifenesin 10 5 - 10 ml PO Q4H PRN 12/08/22 12/08/22 History mg-100 mg/5 mL oral liquid (Diabetic Tussin DM) diphenhydramine HCl 25 mg capsule 25 - 50 mg PO Q8H PRN 12/08/22 12/08/22 History (Banophen) ibuprofen 200 mg tablet (Advil) 200 - 400 mg PO Q4H PRN 12/08/22 12/08/22 History lidocaine 4 % topical patch 1 patch topical DAILY PRN 12/08/22 12/08/22 History (AsperFlex (lidocaine)) loperamide 2 mg capsule 2 - 4 mg PO Q1-2H PRN 12/08/22 12/08/22 History loratadine 10 mg tablet 10 mg PO DAILY PRN 12/08/22 12/08/22 History magnesium hydroxide 400 mg/5 mL 15 - 30 ml PO DAILY PRN 12/08/22 12/08/22 History oral suspension (Milk of Magnesia) melatonin 3 mg tablet 6 mg PO HS 12/08/22 12/08/22 History Allergies Allergy/AdvReac Type Severity Reaction Status Date / Time aspirin Allergy Unknown Verified 10/04/22 15:08 losartan Allergy Unknown Verified 10/04/22 15:08 tramadol Allergy Unknown Verified 10/04/22 15:08 varenicline Allergy Unknown Verified 10/04/22 15:08 bee venom protein (honey bee) Allergy Verified 10/04/22 15:08 ketorolac [From Toradol] Allergy Verified 10/04/22 15:08 NSAIDS (Non-Steroidal Allergy Verified 10/04/22 15:08 Anti-Inflamma Penicillins Allergy Verified 10/04/22 15:08 Exam Narrative: Exam Narrative: Examined patient in her hospital room. She is laying still and appears comfortable in no acute distress. Vision and hearing seem adequate. She is slow to respond to questions. Does not answer every question. May answer 50% of the questions. For the most part she will answer yes or no to questions but is unable to carry out a normal meaningful conversation. Similarly when asking her to carry out certain functions she may or may not carry them out, only able to carry out simple 1 step commands. No obvious acute focal motor neurologic deficits. Tympanic membranes normal. Midline nasal septum. Dry and tacky buccal mucosa. Dentition in fair repair. Mallampati class 3 airway. Neck is supple. Midline trachea. No JVD or hepatojugular reflux. No head and neck lymphadenopathy. Lungs seemingly clear to auscultation. Chest wall excursions full with faster efforts. No CVA tenderness. Heart tones with regular rhythm, normal S1-S2, without obvious murmur, gallop, or rub. Abdomen with active bowel sounds, soft, nontender. No rebound or guarding. Extremities without edema. Capillary refill less than 3 seconds. Skin is intact without abnormalities. No rashes. Const: Vital Signs, click to edit/add: Vital Signs - 24 hr 12/08/22 11:26 12/08/22 11:34 12/08/22 11:45 Temperature 97.3 F L Pulse Rate 93 90 Pulse Rate [Pulse Oximeter] 91 Respiratory Rate 20 Blood Pressure Blood Pressure [Le ft Upper Arm] 153/111 H Pulse Oximetry 95 96 96 Oxygen Delivery Me thod Room Air 12/08/22 11:48 12/08/22 12:36 12/08/22 12:56 Temperature Pulse Rate 94 Pulse Rate [Pulse Oximeter] Respiratory Rate Blood Pressure 172/121 H 131/90 H Blood Pressure [Le ft Upper Arm] Pulse Oximetry 96 Oxygen Delivery Me thod Room Air 12/08/22 13:00 12/08/22 13:02 12/08/22 13:15 Temperature Pulse Rate 94 94 97 Pulse Rate [Pulse Oximeter] Respiratory Rate Blood Pressure 140/82 H Blood Pressure [Le ft Upper Arm] Pulse Oximetry 95 96 96 Oxygen Delivery Me thod Room Air Room Air Room Air 12/08/22 13:30 12/08/22 13:31 12/08/22 14:02 Temperature Pulse Rate 93 Pulse Rate [Pulse Oximeter] Respiratory Rate Blood Pressure 141/83 H 128/82 Blood Pressure [Le ft Upper Arm] Pulse Oximetry 98 Oxygen Delivery Me thod Room Air Room Air 12/08/22 14:05 12/08/22 14:15 12/08/22 14:30 Temperature Pulse Rate 90 96 88 Pulse Rate [Pulse Oximeter] Respiratory Rate Blood Pressure Blood Pressure [Le ft Upper Arm] Pulse Oximetry 97 94 95 Oxygen Delivery Me thod 12/08/22 14:31 12/08/22 14:45 12/08/22 15:00 Temperature Pulse Rate 90 91 89 Pulse Rate [Pulse Oximeter] Respiratory Rate Blood Pressure 146/87 H Blood Pressure [Le ft Upper Arm] Pulse Oximetry 94 95 93 Oxygen Delivery Me thod 12/08/22 15:02 12/08/22 15:03 12/08/22 15:15 Temperature Pulse Rate 90 92 86 Pulse Rate [Pulse Oximeter] Respiratory Rate Blood Pressure 143/82 H Blood Pressure [Le ft Upper Arm] Pulse Oximetry 92 93 92 Oxygen Delivery Me thod 12/08/22 15:30 12/08/22 15:31 12/08/22 15:45 Temperature Pulse Rate 89 93 93 Pulse Rate [Pulse Oximeter] Respiratory Rate Blood Pressure 147/89 H Blood Pressure [Le ft Upper Arm] Pulse Oximetry 93 95 94 Oxygen Delivery Oh thod 12/08/22 16:00 12/08/22 16:02 12/08/22 16:06 Temperature 97.6 F Pulse Rate 92 94 Pulse Rate [Pulse Oximeter] Respiratory Rate 18 Blood Pressure 152/80 H Blood Pressure [Le ft Upper Arm] Pulse Oximetry 93 94 [facility] 12/[facility]22 16:57 Temperature Pulse Rate Pulse Rate [Pulse Oximeter] Respiratory Rate 20 Blood Pressure Blood Pressure [Le ft Upper Arm] Pulse Oximetry 100 Oxygen Delivery Me thod Room Air Hospitalist - H&P: Result Labs Labs: Short CBC 12/08/22 Range/Units 12:08 WBC 8.39 (4.50-11.00) K/uL Hgb 13.8 (12.0-16.0) gm/dL Hct 41.6 (33.0-51.0) % Plt Count 247 (140-440) K/uL BMP 12/08/22 12:08 Sodium 139 Potassium 3.2 L Chloride 95 L Carbon Dioxide 36 H BUN 16 Creatinine 0.7 Glucose 146 H Calcium 10.2 Cardiac Enzymes 12/08/22 Range/Units 12:08 Troponin I < 0.01 L (0.01-0.04) ng/mL Liver Function 12/08/22 Range/Units 12:08 Total Bilirubin 2.0 H (0.1-1.5) mg/dL AST 95 H (12-35) U/L ALT 38 H (4-35) U/L Alkaline Phosphatase 102 (40-150) U/L Albumin 4.3 (3.3-5.0) g/dL Urine 12/08/22 Range/Units 14:30 Urine Color Dark yellow (Yellow) Urine Appearance Cloudy A (Clear) Urine pH 7.0 (5.0-8.5) Ur Specific [place] 1.015 (1.000-1.030) Urine Protein Negative (Negative) Urine Glucose (UA) Negative (Negative) Imaging CT scan - head: Attestation: I have reviewed the pertinent imaging results. Radiologist's impression: No acute intracranial abnormalities. CT scan of abdomen and pelvis: Attestation: I have reviewed the pertinent imaging results. Radiologist's impression: Impression: Questionable increased interstitial and airspace opacity in the right greater than left lung bases which may represent worsening infiltrates. Moderate stool seen throughout the colon with colonic diverticulosis without definite evidence of diverticulitis. Prior cholecystectomy and reservoir dilatation of the intrahepatic and common bile ducts. Chest x-ray: Attestation: I have reviewed the pertinent imaging results. Radiologist's impression: Mild increase in interstitial markings otherwise unremarkable. Assessment and Plan Assessment and plan (1) Acute alteration in mental status: Problem comment: Etiology not entirely determined. Possibly related to a urinary tract infection. Consider other etiologies, including neurologic, pulmonary, endocrine, metabolic, other infectious cause, polypharmacy, related to specific medication. Doubt gastrointestinal. Status: Acute (2) Acute UTI: Problem comment: Possible UTI. Urine culture and blood culture obtained. Will initiate IV ceftriaxone after IV access established. Status: Acute (3) Type 2 diabetes mellitus: Problem comment: - accuchecks and sliding scale insulin Status: Acute (4) Sleep apnea with hypersomnolence: Status: Acute (5) Nicotine dependence: Problem comment: - nicotine replacement prn Status: Acute (6) Chronic, continuous use of opioids: Problem comment: Patient is at high risk for complications from opioids plus other sided active medicines including lorazepam and gabapentin. Would like to transition her to thinking of opioids as a medication to improve her activity rather than to make her comfortable so she can sleep all day. Consider switching to Suboxone as an outpatient. Status: Acute (7) Polypharmacy: Problem comment: Chronically takes oxycodone 10 mg 3 times a day, lorazepam 0.5 mg 3 times a day, zolpidem 5 mg at bedtime, gabapentin 600 mg 3 times a day. Will change oxycodone to 5 mg every 4 hours as needed and discontinue lorazepam. Gabapentin continues at 600 TID. Make zolpidem prn only. Status: Acute (8) Borderline personality disorder: Status: Acute (9) Physical deconditioning: Problem comment: Patient uses a scooter to get around. Self transfers but minimal ambulation. would like her to participate with physical therapy to determine if she can return to her formal level of functioning. Currently resisting therapy. Encouraging her to think of oxycodone as medicine to help her be more active rather than help her sleep more. Status: Acute (10) Abnormal liver function tests: Problem comment: Will recheck after IV fluids. Status: Acute (11) Hypokalemia: Problem comment: Potassium supplementation and recheck. Will also check magnesium. Status: Inactive (12) Poor intravenous access: Problem comment: Unable to maintain a peripheral IV. Will attempt midline IV or PICC. Will administer IV fluids subsequently. Will initiate IV antibiotics subsequently. Status: Acute Plan 1. Reviewed impression with patient. 2. I called her son, her power of civil attorney for health, Korey Miles/Meng, . He was not even aware that his mom was ill, that she was brought to the hospital, and that she was admitted. I reviewed with him the circumstances surrounding her presentation to the hospital and how she is doing at this time. He expressed understanding. I answered his questions to satisfaction. He asked us to proceed. He informed me that her desire is still to have full resuscitation in the event of cardiopulmonary demise. 3. Establish IV access. Initiate IV fluids. Initiate IV ceftriaxone empirically while awaiting urine culture. 4. Physical therapy, occupational therapy, social media sr strategy manager to assist. 5. Continue with supportive efforts.
--- NOTE | 2022-12-08 18:01 | CRLHL7_ITS ---
For Patients: As a result of the Cures Act, medical imaging exams and procedure reports are released immediately into your electronic medical record. You may view this report before your referring provider. If you have questions, please contact your health care provider. Indication: HALFWAY MEDS Technique: Grayscale ultrasound images of brachial and internal jugular veins. IMPRESSION: Sonographic guidance utilized for PICC line placement within the left brachial vein. Dictated by Edward Sherwood MD @ 12/09/2022 11:09:59 AM (Electronically Signed)
--- NOTE | 2022-12-08 18:02 | CRLHL7_ITS ---
For Patients: As a result of the Century Cures Act, medical imaging exams and procedure reports are released immediately into your electronic medical record. You may view this report before your referring provider. If you have questions, please contact your health care provider. INDICATION: PICC line placement. TECHNIQUE: Chest 1 views. COMPARISON: 12/08/2022 at 1:40 p.m.. FINDINGS: Interval placement of a left PICC line, the tip of which is seen projecting over the mid superior cava. Heart and mediastinum: Stable. Lungs and pleural spaces: Left basilar opacity. Bones and soft tissues: No significant findings. IMPRESSION: Interval placement of a left PICC line, the tip of which is seen projecting over the mid superior cava. Left basilar infiltrate. Dictated by Mega Monte MD @ 12/08/2022 8:05:01 PM (Electronically Signed)
[2022-12-08 18:19] LABS: Bilirubin Direct* 0.8 mg/dL (0.0-0.5)
[2022-12-08 19:03] LABS: HCO3 VBG 33 mmol/L (21-28); PCO2 VBG 47 mmHG (40-50); PO2 VBG 32.9 mmHG (25-47)
[2022-12-08] MEDS: POTASSIUM BICARB 25 MEQ EFFERVESCENT TAB 50 MEQ PO (19:06)
[2022-12-08] MEDS: 0.9 % SODIUM CHLORIDE 500 ML 500 ML IV (19:14)
[2022-12-08] MEDS: 0.9 % SODIUM CHLORIDE 1000 ml 1,000 ML 125 ML IV (19:15)
--- NOTE | 2022-12-08 19:17 | PC.NURSE ---
End of shift - Patient arrived to Med/Surg from ED at approximately 1625. Patient arrived to ED via non-emergent EMS from assisted living with a reported change in cognition. Patient is alert and oriented to person. Patient does not verbally express pain or discomfort. Patient is a 2 person assist to ambulate. Patient is incontinent of bowel and bladder. Patient is not verbally responsive to staff but complies with requests. PICC line placed during shift and verified with imaging. Patient is resting at end of shift, no visual or verbal indications of pain or discomfort.
[2022-12-08] MEDS: cefTRIAXone 1 GM in 0.9 % SODIUM CHLORIDE Mini-bag 100 ML IVPB (22:24)
[2022-12-08] MEDS: ACETAMINOPHEN 500 MG TABLET 1000 MG PO (22:25)
[2022-12-08] MEDS: MELATONIN 3 MG TABLET 6 MG PO (22:25)
[2022-12-08] MEDS: MAGNESIUM OXIDE 400 MG TABLET PO (22:26)
[2022-12-08] MEDS: FAMOTIDINE 20 MG TABLET PO (22:26)
[2022-12-09] VITALS (9 sets, daily range): BP systolic 112–161; BP diastolic 61–86; PULSE 75–93; RESP 16–20; TEMP 36.1–36.6; O2SAT 94–100
--- NOTE | 2022-12-09 05:43 | PC.NURSE ---
Pt with stable VS. Minimal response to questions. Does not open eyes when talked to. T&R q2 hours plus she moves her self in bed. Inc of urine. No BM this shift.
[2022-12-09 06:39] LABS: HCO3 VBG 33 mmol/L (21-28); PCO2 VBG 52 mmHG (40-50); PO2 VBG 37.9 mmHG (25-47); pH VBG 7.411 (7.32-7.43)
[2022-12-09 06:43] LABS: Hematocrit 35.9 % (33.0-51.0); Hemoglobin* 11.9 gm/dL (12.0-16.0); Mean Corpuscular HGB Conc 33 gm/dL (32-36); Mean Corpuscular Hemoglobin 30 pg (26-34); Mean Corpuscular Volume 91 fL (80-100); Platelet Count* 266 K/uL (140-440); Red Blood Count 3.94 m/uL (4.00-5.20); White Blood Count* 7.44 K/uL (4.50-11.00)
[2022-12-09 07:04] LABS: Albumin* 3.4 g/dL (3.3-5.0); Chloride* 97 mmol/L (96-114); Sodium* 138 mmol/L (135-149)
[2022-12-09 07:06] LABS: Creatinine* 0.6 mg/dL (0.5-1.5); Estimated Glomerular Filt Rate 97 ml/min
[2022-12-09 07:07] LABS: Alanine Aminotransferase* 32 U/L (4-35); Anion Gap 8 mEq/L (7-15); Aspartate Amino Transferase* 73 U/L (12-35); Bilirubin Direct* 0.5 mg/dL (0.0-0.5); Bilirubin Total* 1.2 mg/dL (0.1-1.5); Blood Urea Nitrogen* 11 mg/dL (7-30); Calcium* 9.6 mg/dL (8.4-10.6); Carbon Dioxide* 33 mmol/L (20-32); Glucose* 133 mg/dL (60-115); Phosphorus* 3.3 mg/dL (2.5-4.5)
[2022-12-09 07:08] LABS: Magnesium* 2.1 mg/dL (1.5-2.6)
[2022-12-09 07:15] LABS: Slide Review Reflex No
[2022-12-09 07:19] LABS: Troponin I* 0.01 ng/mL (0.01-0.04)
[2022-12-09 07:24] LABS: Potassium* 2.6 mmol/L (3.6-5.1); Procalcitonin* 0.09 ng/mL (<0.50)
--- NOTE | 2022-12-09 08:10 | PM.IMPN1 ---
Progress Note: A&P Assessment and plan (1) Acute alteration in mental status: Problem details: -already improving and likely near baseline -continue current treatment sense support Status: Acute (2) Acute UTI: Problem details: -Gram-negative rods identified. Blood cultures negative to date. Continue ceftriaxone until we have sensitivities. Status: Acute (3) Type 2 diabetes mellitus: Problem details: - accuchecks and sliding scale insulin Status: Acute (4) Sleep apnea with hypersomnolence: Status: Acute (5) Nicotine dependence: Problem details: - nicotine replacement prn Status: Acute (6) Chronic, continuous use of opioids: Problem details: Patient is at high risk for complications from opioids plus other sided active medicines including lorazepam and gabapentin. Would like to transition her to thinking of opioids as a medication to improve her activity rather than to make her comfortable so she can sleep all day. Consider switching to Suboxone as an outpatient. Status: Acute (7) Polypharmacy: Problem details: Chronically takes oxycodone 10 mg 3 times a day, lorazepam 0.5 mg 3 times a day, zolpidem 5 mg at bedtime, gabapentin 600 mg 3 times a day. Will change oxycodone to 5 mg every 4 hours as needed and discontinue lorazepam. Gabapentin continues at 600 TID. Make zolpidem prn only. Status: Acute (8) Borderline personality disorder: Status: Acute (9) Physical deconditioning: Problem details: Patient uses a scooter to get around. Self transfers but minimal ambulation. would like her to participate with physical therapy to determine if she can return to her formal level of functioning. Currently resisting therapy. Encouraging her to think of oxycodone as medicine to help her be more active rather than help her sleep more. Status: Acute (10) Abnormal liver function tests: Problem details: -improving Status: Acute (11) Hypokalemia: Problem details: -IV replacement ordered for 12/09 -magnesium normal Status: Inactive (12) Poor intravenous access: Problem details: Unable to maintain a peripheral IV. Will attempt midline IV or PICC. Will administer IV fluids subsequently. Will initiate IV antibiotics subsequently. Status: Acute Subjective Date Seen: 12/09/22 Interval history: Daily Progress Note - Hospital #: 2 CC: AMS, UTI, HYPOKALEMIA (2.6) OVERNIGHT UPDATES FROM STAFF & MED, LAB, IMAGING UPDATES Patient is already showing improvement in her mental status. She is eating breakfast this morning. She was able to get from the bed to the chair with minimal assist. RN: Pt with stable VS. Minimal response to questions. Does not open eyes when talked to. T&R q2 hours plus she moves her self in bed. Inc of urine. No BM this shift CT A/P from ER Eval: Questionable increased interstitial and airspace opacity in the right greater than left lung bases which may represent worsening infiltrates. Moderate stool seen throughout the colon with colonic diverticulosis without definite evidence of diverticulitis. Prior cholecystectomy and reservoir dilatation of the intrahepatic and common bile ducts. Afebrile Blood pressure is mildly elevated 160/80, 147/73 Pulse rate 84-93 Respiratory rate 18 and unlabored Pulse ox 100% on room air. CBC is stable overnight. Likely some hemodilution of her hemoglobin but this still appears to be at her baseline. PH is normal Potassium is quite low at 2.6. Otherwise her electrolytes are normal. Her renal function is normal. Her blood sugars 133. Her lactate is normal. Her LFTs have improved. Urine drug screen is totally negative Gram-negative rods identified in the urine sample. Id and sensitivities are pending. Two blood cultures are drawn and negative to date. Objective: Lethargic but opens her eyes and answers my questions. She knows she is in the hospital. She tells me she is from [place], has family here in [place]. She is able to name her sons and that she has 6 grandchildren. Vitals: see above Lungs: Clear. Cardiac: S1S2. Disposition/Potential discharge - Likely to return to previous living situation. Exam Const: Vital Signs, click to edit/add: Vital Signs - 24 hr 12/08/22 11:26 12/08/22 11:34 12/08/22 11:45 Temperature 97.3 F L Pulse Rate 93 90 Pulse Rate [Pulse Oximeter] 91 Respiratory Rate 20 Blood Pressure Blood Pressure [Le ft Upper Arm] 153/111 H Blood Pressure [Ri ght Arm] Pulse Oximetry 95 96 96 Oxygen Delivery Me thod Room Air 12/08/22 11:48 12/08/22 12:36 12/08/22 12:56 Temperature Pulse Rate 94 Pulse Rate [Pulse Oximeter] Respiratory Rate Blood Pressure 172/121 H 131/90 H Blood Pressure [Le ft Upper Arm] Blood Pressure [Ri ght Arm] Pulse Oximetry 96 Oxygen Delivery Me thod Room Air 12/08/22 13:00 12/08/22 13:02 12/08/22 13:15 Temperature Pulse Rate 94 94 97 Pulse Rate [Pulse Oximeter] Respiratory Rate Blood Pressure 140/82 H Blood Pressure [Le ft Upper Arm] Blood Pressure [Ri ght Arm] Pulse Oximetry 95 96 96 Oxygen Delivery Me thod Room Air Room Air Room Air 12/08/22 13:30 12/08/22 13:31 12/08/22 14:02 Temperature Pulse Rate 93 Pulse Rate [Pulse Oximeter] Respiratory Rate Blood Pressure 141/83 H 128/82 Blood Pressure [Le ft Upper Arm] Blood Pressure [Ri ght Arm] Pulse Oximetry 98 Oxygen Delivery Me thod Room Air Room Air 12/08/22 14:05 12/08/22 14:15 12/08/22 14:30 Temperature Pulse Rate 90 96 88 Pulse Rate [Pulse Oximeter] Respiratory Rate Blood Pressure Blood Pressure [Le ft Upper Arm] Blood Pressure [Ri ght Arm] Pulse Oximetry 97 94 95 Oxygen Delivery Me thod 12/08/22 14:31 12/08/22 14:45 12/08/22 15:00 Temperature Pulse Rate 90 91 89 Pulse Rate [Pulse Oximeter] Respiratory Rate Blood Pressure 146/87 H Blood Pressure [Le ft Upper Arm] Blood Pressure [Ri ght Arm] Pulse Oximetry 94 95 93 Oxygen Delivery Me thod 12/08/22 15:02 12/08/22 15:03 12/08/22 15:15 Temperature Pulse Rate 90 92 86 Pulse Rate [Pulse Oximeter] Respiratory Rate Blood Pressure 143/82 H Blood Pressure [Le ft Upper Arm] Blood Pressure [Ri ght Arm] Pulse Oximetry 92 93 92 Oxygen Delivery Me thod 12/08/22 15:30 12/08/22 15:31 12/08/22 15:45 Temperature Pulse Rate 89 93 93 Pulse Rate [Pulse Oximeter] Respiratory Rate Blood Pressure 147/89 H Blood Pressure [Le ft Upper Arm] Blood Pressure [Ri ght Arm] Pulse Oximetry 93 95 94 Oxygen Delivery Me thod 12/08/22 16:00 12/08/22 16:02 12/08/22 16:06 Temperature 97.6 F Pulse Rate 92 94 Pulse Rate [Pulse Oximeter] Respiratory Rate 18 Blood Pressure 152/80 H Blood Pressure [Le ft Upper Arm] Blood Pressure [Ri ght Arm] Pulse Oximetry 93 94 Oxygen Delivery Me thod 12/08/22 16:57 12/08/22 16:57 12/08/22 17:11 Temperature 97.2 F L Pulse Rate 61 Pulse Rate [Pulse Oximeter] 92 Respiratory Rate 20 20 Blood Pressure Blood Pressure [Le ft Upper Arm] Blood Pressure [Ri ght Arm] 114/53 L Pulse Oximetry 100 100 Oxygen Delivery Me thod Room Air Room Air 12/08/22 19:00 12/08/22 23:00 12/08/22 23:00 Temperature 97 F L Pulse Rate 95 Pulse Rate [Pulse Oximeter] 93 Respiratory Rate 18 Blood Pressure Blood Pressure [Le ft Upper Arm] Blood Pressure [Ri ght Arm] 147/73 H Pulse Oximetry 93 95 Oxygen Delivery Nj thod Room Air Room Air 12/09/22 03:00 12/09/22 03:00 Temperature Pulse Rate 91 Pulse Rate [Pulse Oximeter] 84 Respiratory Rate 20 Blood Pressure Blood Pressure [Le ft Upper Arm] Blood Pressure [Ri ght Arm] Pulse Oximetry 94 Oxygen Delivery Nj thod Room Air Labs Labs: Laboratory Results - last 24 hr 12/08/22 12/08/22 12/08/22 11:45 12:08 14:30 WBC 8.39 RBC 4.60 Hgb 13.8 Hct 41.6 MCV 90 MCH 30 MCHC 33 RDW Coeff of Rosa 12.3 Plt Count 247 Neut % (Auto) 58.1 Lymph % (Auto) 27.1 [place] % (Auto) 12.8 H Eos % (Auto) 1.5 Baso % (Auto) 0.4 Neut # (Auto) 4.88 Lymph # (Auto) 2.27 [place] # (Auto) 1.10 H Eos # (Auto) 0.13 Baso # (Auto) 0.03 Abs Immat Gran (auto) 0.01 Imm/Tot Granulo (auto) 0.1 VBG pH VBG pCO2 VBG pO2 VBG HCO3 Sodium 139 Potassium 3.2 L Chloride 95 L Carbon Dioxide 36 H Anion Gap 8 BUN 16 Creatinine 0.7 Estimated GFR 93 Glucose 146 H Lactate 1.8 Calcium 10.2 Phosphorus Magnesium 2.3 Total Bilirubin 2.0 H Direct Bilirubin 0.8 H AST 95 H ALT 38 H Alkaline Phosphatase 102 Troponin I < 0.01 L C-Reactive Protein NT-Pro-B Natriuret Pep 30 Total Protein 8.2 Albumin 4.3 Lipase 113 Procalcitonin Urine Color Dark yellow Urine Appearance Cloudy A Urine pH 7.0 Ur Specific [place] 1.015 Urine Protein Negative Urine Glucose (UA) Negative Urine Ketones Negative Urine Blood Trace-intact A Urine Nitrite Positive A Urine Bilirubin Negative Urine Urobilinogen 1.0 Ur Leukocyte Esterase 3+ A Urine RBC 2-5 A Urine WBC 50-100 A Ur Squamous Epith Cells Moderate A Urine Bacteria Many A Coarse Granular Casts Moderate A SARS-CoV-2 (PCR) Negative SARS-CoV-2 Influenza Type A (PCR) Negative PCR FLU A Influenza Type B (PCR) Negative PCR FLU B Lab Acknowledgement 12/08/22 12/08/22 12/08/22 15:17 17:10 18:56 WBC RBC Hgb Hct MCV MCH MCHC RDW Coeff of [place] Plt Count Neut % (Auto) Lymph % (Auto) [place] % (Auto) Eos % (Auto) Baso % (Auto) Neut # (Auto) Lymph # (Auto) [place] # (Auto) Eos # (Auto) Baso # (Auto) Abs Immat Gran (auto) Imm/Tot Granulo (auto) VBG pH 7.460 H VBG pCO2 47 VBG pO2 32.9 VBG HCO3 33 H Sodium Potassium Chloride Carbon Dioxide Anion Gap BUN Creatinine Estimated GFR Glucose Lactate Calcium Phosphorus Magnesium Total Bilirubin Direct Bilirubin AST ALT Alkaline Phosphatase Troponin I C-Reactive Protein NT-Pro-B Natriuret Pep Total Protein Albumin Lipase Procalcitonin Urine Color Urine Appearance Urine pH Ur Specific [place] Urine Protein Urine Glucose (UA) Urine Ketones Urine Blood Urine Nitrite Urine Bilirubin Urine Urobilinogen Ur Leukocyte Esterase Urine RBC Urine WBC Ur Squamous Epith Cells Urine Bacteria Coarse Granular Casts SARS-CoV-2 (PCR) Influenza Type A (PCR) Influenza Type B (PCR) Lab Acknowledgement Test Added Test Added 12/09/22 Unknown WBC 7.44 RBC 3.94 L Hgb 11.9 L Hct 35.9 MCV 91 MCH 30 MCHC 33 RDW Coeff of Rosa Plt Count 266 Neut % (Auto) Lymph % (Auto) [place] % (Auto) Eos % (Auto) Baso % (Auto) Neut # (Auto) Lymph # (Auto) [place] # (Auto) Eos # (Auto) Baso # (Auto) Abs Immat Gran (auto) Imm/Tot Granulo (auto) VBG pH 7.411 VBG pCO2 52 H VBG pO2 37.9 VBG HCO3 33 H Sodium 138 Potassium 2.6 L* Chloride 97 Carbon Dioxide 33 H Anion Gap 8 BUN 11 Creatinine 0.6 Estimated GFR 97 Glucose 133 H Lactate 1.0 Calcium 9.6 Phosphorus 3.3 Magnesium 2.1 Total Bilirubin 1.2 Direct Bilirubin 0.5 AST 73 H ALT 32 Alkaline Phosphatase Troponin I 0.01 C-Reactive Protein 1.0 NT-Pro-B Natriuret Pep Total Protein Albumin 3.4 Lipase Procalcitonin 0.09 Urine Color Urine Appearance Urine pH Ur Specific [place] Urine Protein Urine Glucose (UA) Urine Ketones Urine Blood Urine Nitrite Urine Bilirubin Urine Urobilinogen Ur Leukocyte Esterase Urine RBC Urine WBC Ur Squamous Epith Cells Urine Bacteria Coarse Granular Casts SARS-CoV-2 (PCR) Influenza Type A (PCR) Influenza Type B (PCR) Lab Acknowledgement
[2022-12-09 09:00] LABS: Amphetamine Screen Urine Negative (Negative); Barbiturate Screen Urine Negative (Negative); Benzodiazepines Screen Urine Negative (Negative); Cannabinoid Screen Urine Negative (Negative); Cocaine Screen Urine Negative (Negative); Methadone Screen Urine Negative (Negative); Methamphetamines Screen Urine Negative (Negative); Opiate Screen Urine Negative (Negative); Oxycodone Screen Urine Negative (Negative); Phencyclidine Screen Urine Negative (Negative); Tricyclic Antidepressant Urine Negative (Negative)
[2022-12-09] MEDS: POTASSIUM CHLORIDE 10 MEQ CAPSULE ER PO (09:14)
[2022-12-09] MEDS: TORSEMIDE 20 MG TABLET PO (09:14)
[2022-12-09] MEDS: POTASSIUM CHLORIDE 10 MEQ/100 ML PIGGYBACK 100 MEQ IVPB ×4 (09:14→13:35)
[2022-12-09] MEDS: AZITHROMYCIN 500 MG in 0.9 % SODIUM CHLORIDE 250 ml 250 ML 255 MG IVPB (09:14)
[2022-12-09] MEDS: OMEPRAZOLE 20 MG CAPSULE DR 40 MG PO (09:18)
[2022-12-09] MEDS: risperiDONE 1 MG TABLET 2 MG PO ×2 (09:19→22:12)
[2022-12-09] MEDS: DULOXETINE 30 MG CAPSULE DR 120 MG PO (09:19)
[2022-12-09] MEDS: SITAGLIPTIN PHOSPHATE 50 MG TABLET 100 MG PO (09:20)
[2022-12-09] MEDS: ACETAMINOPHEN 500 MG TABLET 1000 MG PO ×3 (09:21→22:04)
[2022-12-09] MEDS: ASPIRIN 81 MG TABLET EC PO (09:21)
[2022-12-09] MEDS: DORZOLAMIDE/TIMOLOL 2-0.5% OPHTH 1 DROP EYE-BOTH ×2 (09:22→22:23)
[2022-12-09] MEDS: FLUTICASONE PROPIONATE NASAL 2 SPRAY NOSTRIL-B (09:22)
[2022-12-09] MEDS: SODIUM CHLORIDE 0.9 % (FLUSH) 10 ML SYRINGE 5 ML IVF ×2 (09:23→22:09)
[2022-12-09] MEDS: MAGNESIUM OXIDE 400 MG TABLET PO ×2 (09:24→22:07)
[2022-12-09] MEDS: cefTRIAXone 1 GM in 0.9 % SODIUM CHLORIDE Mini-bag 100 ML IVPB (10:37)
--- NOTE | 2022-12-09 13:05 | NUTR.NU ---
RDN with RN consult for skin risk. Pt nutrition risk factors reviewed. No hx of weight loss. Good intake for two meals (100% B this morning). No nutrition diagnosis or interventions needed at this time. Nutrition will follow per protocol.
[2022-12-09 14:30] LABS: Chloride* 100 mmol/L (96-114); Potassium* 3.6 mmol/L (3.6-5.1); Sodium* 138 mmol/L (135-149)
[2022-12-09 14:33] LABS: Anion Gap 7 mEq/L (7-15); Blood Urea Nitrogen* 12 mg/dL (7-30); Carbon Dioxide* 31 mmol/L (20-32); Creatinine* 0.7 mg/dL (0.5-1.5); Estimated Glomerular Filt Rate 93 ml/min
[2022-12-09 14:34] LABS: Calcium* 9.2 mg/dL (8.4-10.6); Glucose* 99 mg/dL (60-115)
[2022-12-09 16:35] LABS: Potassium* 3.3 mmol/L (3.6-5.1)
[2022-12-09 16:38] LABS: Magnesium* 1.8 mg/dL (1.5-2.6)
[2022-12-09] MEDS: OXYCODONE 5 MG TABLET PO (16:53)
[2022-12-09] MEDS: POTASSIUM CHLORIDE 10 MEQ CAPSULE ER 40 MEQ PO (17:52)
--- NOTE | 2022-12-09 18:13 | PC.NURSE ---
End of shift: A&Ox4, although is selective with what she answers to. VSS on RA. Incontinent of bladder and bowel at baseline. Ax1-2 w/ 4 wheel RW. Calls appropriately. 1 large loose BM this afternoon, bowel meds were held. On telemetry NSR. Received 4 doses of IV potassium today due to low level this AM. Also received PO 40 meq potassium this evening. Update was given to [facility] this afternoon regarding the patient. Appetite and PO intake is great. Call light within reach. Resting in bed.
[2022-12-09] MEDS: FAMOTIDINE 20 MG TABLET PO (22:06)
[2022-12-09] MEDS: MELATONIN 3 MG TABLET 6 MG PO (22:07)
[2022-12-09] MEDS: LATANOPROST 0.005% OPHTH 1 DROP EYE-BOTH (22:23)
[2022-12-10 03:00] VITALS: PULSE 74; RESP 16; O2SAT 100
[2022-12-10 05:25] VITALS: BP 122/74; TEMP 36.4
[2022-12-10 05:46] LABS: Hematocrit 32.8 % (33.0-51.0); Hemoglobin* 10.6 gm/dL (12.0-16.0); Mean Corpuscular HGB Conc 32 gm/dL (32-36); Mean Corpuscular Hemoglobin 30 pg (26-34); Mean Corpuscular Volume 94 fL (80-100); Platelet Count* 239 K/uL (140-440); Red Blood Count 3.49 m/uL (4.00-5.20); White Blood Count* 8.68 K/uL (4.50-11.00)
[2022-12-10 05:47] LABS: Slide Review Reflex No
[2022-12-10 05:50] LABS: HCO3 VBG 31 mmol/L (21-28); PCO2 VBG 55 mmHG (40-50)
[2022-12-10 06:08] LABS: Albumin* 3.1 g/dL (3.3-5.0); Chloride* 103 mmol/L (96-114)
[2022-12-10 06:09] LABS: Potassium* 3.3 mmol/L (3.6-5.1); Sodium* 139 mmol/L (135-149)
[2022-12-10 06:11] LABS: Creatinine* 0.7 mg/dL (0.5-1.5); Estimated Glomerular Filt Rate 93 ml/min
[2022-12-10 06:12] LABS: Alanine Aminotransferase* 29 U/L (4-35); Alkaline Phosphatase* 111 U/L (40-150); Anion Gap 4 mEq/L (7-15); Aspartate Amino Transferase* 59 U/L (12-35); Bilirubin Direct* 0.3 mg/dL (0.0-0.5); Bilirubin Total* 0.6 mg/dL (0.1-1.5); Blood Urea Nitrogen* 14 mg/dL (7-30); Calcium* 9.5 mg/dL (8.4-10.6); Carbon Dioxide* 32 mmol/L (20-32); Glucose* 111 mg/dL (60-115); Phosphorus* 3.3 mg/dL (2.5-4.5); Total Protein* 6.3 g/dL (6.0-8.3)
[2022-12-10 06:13] LABS: Magnesium* 1.7 mg/dL (1.5-2.6)
[2022-12-10 06:15] LABS: C Reactive Protein* 1.1 mg/dL (0.5-1.0)
--- NOTE | 2022-12-10 06:22 | PC.NURSE ---
End of shift nursing note, care provided from [id number]: Pt alert and oriented, at beginning of shift pt minimal responses to questions. More awake during shift for interaction during personal cares before resuming sleep, pt pleasant and cooperative. Pt Ax1-2 w/ 4wheel rolling walker, w/ gaitbelt. Amb to bathroom, but upon standing was incontinent of urine, brief changed, mai cares done PRN. Vitals stable, on RA. Tele NSR. Pt slept well throughout shift in between cares. Labs obtained this AM, from patent PICC to LUE. No BM. Took scheduled meds without issue, BS 146, no indication for SSI. Call light within reach and pt uses appropriately.
[2022-12-10 06:31] LABS: Procalcitonin* 0.16 ng/mL (<0.50)
[2022-12-10 07:00] VITALS: BP 140/75; PULSE 74; PULSE 79; PULSE 89; RESP 18; RESP 24; TEMP 36.3; O2SAT 100
[2022-12-10] MEDS: TORSEMIDE 20 MG TABLET PO (08:37)
[2022-12-10] MEDS: POTASSIUM BICARB 25 MEQ EFFERVESCENT TAB 50 MEQ PO (08:37)
[2022-12-10] MEDS: ACETAMINOPHEN 500 MG TABLET 1000 MG PO ×2 (08:38→13:59)
[2022-12-10] MEDS: ASPIRIN 81 MG TABLET EC PO (08:38)
[2022-12-10] MEDS: AZITHROMYCIN 500 MG in 0.9 % SODIUM CHLORIDE 250 ml 250 ML 255 MG IVPB (08:39)
[2022-12-10] MEDS: DORZOLAMIDE/TIMOLOL 2-0.5% OPHTH 1 DROP EYE-BOTH (08:40)
[2022-12-10] MEDS: FLUTICASONE PROPIONATE NASAL 2 SPRAY NOSTRIL-B (08:40)
[2022-12-10] MEDS: DULOXETINE 30 MG CAPSULE DR 120 MG PO (08:40)
[2022-12-10] MEDS: OMEPRAZOLE 20 MG CAPSULE DR 40 MG PO (08:41)
[2022-12-10] MEDS: MAGNESIUM OXIDE 400 MG TABLET PO (08:41)
[2022-12-10] MEDS: polyethylene glycoL 3350 17 GM PACK PO (08:41)
[2022-12-10] MEDS: risperiDONE 1 MG TABLET 2 MG PO (08:43)
[2022-12-10] MEDS: SITAGLIPTIN PHOSPHATE 50 MG TABLET 100 MG PO (08:43)
[2022-12-10] MEDS: SODIUM CHLORIDE 0.9 % (FLUSH) 10 ML SYRINGE 5 ML IVF (08:43)
[2022-12-10] MEDS: OXYCODONE 5 MG TABLET PO ×2 (08:59→14:00)
[2022-12-10] MEDS: HYDROmorphone 0.5 mg/0.5 ml inj IVP (10:41)
[2022-12-10] MEDS: cefTRIAXone 1 GM in 0.9 % SODIUM CHLORIDE Mini-bag 100 ML IVPB (10:58)
[2022-12-10 11:00] VITALS: BP 138/94; PULSE 74; RESP 18; O2SAT 99
[2022-12-10 15:00] VITALS: BP 129/87; PULSE 70; O2SAT 97
--- NOTE | 2022-12-10 15:25 | PC.NURSE ---
Nursing Care Hours: [id number] Pt this shift calm and cooperative, alert and oriented. Assist x1 with walker and gait belt. Struggles to stand from sitting d/t intense pain in R knee. Refused to change soiled briefs d/t having to stand up. Educated patient on importance of clean underwear and wiping front to back to avoid future UTI. Pain treated per eMAR. Left lung crackles and expiratory wheeze, no cough and spO2 stable on room air. PICC patent and removed, pt tolerated procedure well, pressure applied. Clear transparent dressing over a 2x2 [address] Instructed [facility] staff to remove after 24 hours.
--- NOTE | 2022-12-10 16:08 | P.DS_ITS ---
DS: Providers Provider Time Seen by Provider: 08:00 Date Seen: 12/10/22 Date of admission: 12/08/22 16:10 Primary care physician: Not a Local Provider Admitting Clinician: Vince Oscar MD Consults: 12/08/22 17:11 Consult to Physical Therapy [CONS] Routine Comment: Reason(s) for PT Consult:: Evaluate and Treat Any Restrictions?:: No Restrictions Consult to [facility] [CONS] Routine Comment: Reason for Consult:: Discharge Planning Needs 12/08/22 17:16 Consult to Occupational Therapy [CONS] Routine Comment: Reason(s) for OT Consult:: Evaluate and Treat Any Restrictions?:: No Restrictions Attending Physician on discharge: Vince Oscar MD Date of Discharge: 12/10/22 DS: Diagnosis Discharge Diagnosis (1) Acute alteration in mental status: Status: Acute Problem details: -already improving and likely near baseline -continue current treatment sense support (2) Acute UTI: Status: Acute Problem details: -Gram-negative rods identified. Blood cultures negative to date. Continue ceftriaxone until we have sensitivities. (3) Poor intravenous access: Status: Acute Problem details: Unable to maintain a peripheral IV. Will attempt midline IV or PICC. Will administer IV fluids subsequently. Will initiate IV antibiotics subsequently. (4) Abnormal liver function tests: Status: Acute Problem details: -improving (5) Sleep apnea with hypersomnolence: Status: Acute (6) Type 2 diabetes mellitus: Status: Acute Problem details: - accuchecks and sliding scale insulin DS: Summary Hospital Course Hospital Course: Rena Fan is a 72 year old woman who lives at [facility] and presents with a 24 hour history of increasing lethargy and altered mental status. Patient is not able to provide any meaningful history. When I assess her she hardly speaks. At time she answered yes/no questions. She looks at me when I speak with her but does not engage in any conversation. Appears comfortable. Much of the information I obtained is from others we have observed her. Reportedly she was in her usual state of health throughout the day yesterday. Towards the evening she became much more weak requiring help with transfers and ambulation. By this morning she was not able to move or transfer without support. She slept in this morning which is unusual for her. Upon trying to awaken her she did not interact at all. She stared at individuals trying to awaken her. Would answer some yes/no questions. EMS was summoned and brought her to the emergency department for further assessment. Vital signs were stable. No focal findings on physical exam. Patient obviously lethargic and weak. Extensive workup undertaken which was basically unremarkable save urine analysis suggesting the possibility of a urinary tract infection. Patient thus admitted for observation and initiation of treatment for possible urinary tract infection. Noteworthy is that patient has no IV access and thus we will be attempting to place a midline IV for IV access. PICC was placed at time of admission. Started on IV ceftriaxone 1 g Q 24 hours. Started on IV fluids. Over the course of the following 2 days her condition normalized. Urine culture grew out Proteus mirabilis, sensitive to most antibiotics it was tested against except for nitrofurantoin which was resistant to. We switched her to oral cephalexin will need to complete a 2 week course therapy of the same. I called and discussed the patient's condition with her son, Korey, at time of admission, and also at time of discharge. Korey was in agreement with the admission and with the discharge. Status at Discharge Cognitive/behavioral status at discharge: Back to baseline. Overall status at discharge: patient is back to baseline Time Spent with Patient Time attestation: Total time spent providing and/or coordinating discharge services: Time spent: Greater than 30 minutes Exam Narrative: Exam Narrative: No longer lethargic. Able to engage in conversation. She tells me she is well enough to leave the hospital. She tells me she is from [place], has family here in [place]. She is able to name her sons and that she has 6 grandchildren. Vitals: see above Lungs: Clear. Cardiac: S1S2. Const: Vital Signs, click to edit/add: Vital Signs - 24 hr 12/09/22 16:30 12/09/22 19:45 12/09/22 20:00 Temperature 97.3 F L Pulse Rate 81 Pulse Rate [Pulse Oximeter] 82 Respiratory Rate 16 Blood Pressure [Ri ght Arm] 131/71 Pulse Oximetry 100 100 Oxygen Delivery Me thod Room Air Room Air 12/09/22 23:45 12/09/22 23:45 12/09/22 23:45 Temperature 97.9 F Pulse Rate Pulse Rate [Pulse Oximeter] 75 75 Respiratory Rate 16 16 16 Blood Pressure [Ri ght Arm] 134/68 Pulse Oximetry 100 100 Oxygen Delivery Me thod Room Air Room Air 12/10/22 03:00 12/10/22 05:25 12/10/22 07:00 Temperature 97.6 F Pulse Rate 79 Pulse Rate [Pulse Oximeter] 74 Respiratory Rate 16 Blood Pressure [Ri ght Arm] 122/74 Pulse Oximetry 100 Oxygen Delivery Me thod Room Air 12/10/22 07:00 12/10/22 07:00 12/10/22 07:00 Temperature 97.3 F L Pulse Rate Pulse Rate [Pulse Oximeter] 89 74 Respiratory Rate 24 24 18 Blood Pressure [Ri ght Arm] 140/75 H Pulse Oximetry 100 100 Oxygen Delivery [place] thod Room Air Room Air 12/10/22 11:00 12/10/22 15:00 Temperature Pulse Rate Pulse Rate [Pulse Oximeter] 74 70 Respiratory Rate 18 Blood Pressure [Ri ght Arm] 138/94 H 129/87 Pulse Oximetry 99 97 Oxygen Delivery Ny thod Room Air Room Air DS: Data Data Completed and Pending Completed studies during hospitalization: Procedures Assistance with Respiratory Ventilation, Less than 24 Consecutive Hours, Continuous Positive Airway Pressure (07/21/22) Insertion of Infusion Device into Right Internal Jugular Vein, Percutaneous Approach (07/21/22) Introduction of Other Gas into Respiratory Tract, Via Natural or Artificial Opening (07/21/22) Ultrasonography of Right Jugular Veins, Guidance (07/21/22) Labs on day of discharge: Labs from last 24 hours 12/10/22 12/09/22 05:40 16:00 WBC 8.68 RBC 3.49 L Hgb 10.6 L Hct 32.8 L MCV 94 MCH 30 MCHC 32 Plt Count 239 VBG pH 7.360 VBG pCO2 55 H VBG pO2 48.0 H VBG HCO3 31 H Sodium 139 Potassium 3.3 L 3.3 L Chloride 103 Carbon Dioxide 32 Anion Gap 4 L BUN 14 Creatinine 0.7 Estimated GFR 93 Glucose 111 Calcium 9.5 Phosphorus 3.3 Magnesium 1.7 1.8 Total Bilirubin 0.6 Direct Bilirubin 0.3 AST 59 H ALT 29 Alkaline Phosphatase 111 C-Reactive Protein 1.1 H Total Protein 6.3 Albumin 3.1 L Procalcitonin 0.16 Preliminary micro results at discharge 12/08/22 12:08 Blood Culture - Preliminary Blood NO GROWTH AFTER 48 HOURS 12/08/22 12:08 Blood Culture - Preliminary Blood NO GROWTH AFTER 48 HOURS Imaging Chest x-ray: Attestation: I have reviewed the pertinent imaging results. Radiologist's impression: No acute intrathoracic cardiopulmonary process CT scan - head: Attestation: I have reviewed the pertinent imaging results. Radiologist's impression: No acute intracranial process CT scan - abdomen: Attestation: I have reviewed the pertinent imaging results. Radiologist's impression: No acute intra-abdominal process Discharge Plan Discharge Disposition: [facility] Date of Admission: 12/08/22 16:10 Attending Provider on Discharge: El Martinez Primary Care Provider: Provider,Not a Local Condition: Improved Anticipated Discharge Date/Time: 12/10/22 14:00 Discharge Medications: New potassium chloride 10 mEq Capsule, Extended Release 20 meq PO BIDWM 30 Days Qty: 60 1RF cephalexin 500 mg capsule 500 mg PO TID Qty: 30 0RF Continued aspirin 81 mg tablet,delayed release (DR/EC) 81 mg PO DAILY latanoprost 0.005 % drops 1 drp OPHTHALMIC (EYE) HS Rx Instructions: BOTH EYES risperidone 2 mg tablet 2 mg PO BID famotidine 20 mg tablet 20 mg PO HS pantoprazole 40 mg tablet,delayed release (DR/EC) 40 mg PO DAILY dorzolamide-timolol 22.3-6.8 mg/mL drops 1 drp OPHTHALMIC (EYE) BID Rx Instructions: BOTH EYES hydrochlorothiazide 25 mg tablet 25 mg PO DAILY fluticasone propionate 50 mcg/actuation spray,suspension 2 spray INTRANASAL DAILY insulin aspart U-100 100 unit/mL (3 mL) insulin pen 1 - 7 unit SUBCUT BID@12,18 Rx Instructions: 0-7 UNITS PER SLIDING SCALE duloxetine 60 mg capsule,delayed release(DR/EC) 120 mg PO DAILY insulin glargine [Lantus Solostar U-100 Insulin] 100 unit/mL (3 mL) insulin pen 20 unit SUBCUT HS atorvastatin 10 mg tablet 10 mg PO HS cholecalciferol (vitamin D3) 25 mcg (1,000 unit) tablet 1,000 unit PO DAILY nicotine 21 mg/24 hr patch 24 hour 1 patch topical DAILY Systane Ultra 0.4-0.3 % drops 1 drp ophthalmic (eye) QID Rx Instructions: BOTH EYES polyethylene glycol 3350 [Gavilax] 17 gram/dose powder 17 g PO DAILY Januvia 100 mg tablet 100 mg PO DAILY diclofenac sodium 1 % gel 4 g topical QID Rx Instructions: PER RESIDENT REQUEST epinephrine 0.3 mg/0.3 mL auto-injector 0.3 mg IM PRN PRN Rx Instructions: do not exceed 3 doses per episode magnesium oxide 400 mg (241.3 mg magnesium) Tablet 400 mg PO BID Qty: 60 0RF torsemide 20 mg Tablet 20 mg PO DAILY@0800 Qty: 30 0RF acetaminophen 500 mg tablet 1,000 mg PO TID Qty: 180 0RF amlodipine 10 mg tablet 10 mg PO DAILY melatonin 3 mg tablet 6 mg PO HS acetaminophen 325 mg tablet 325 - 650 mg PO Q4H PRN magnesium hydroxide [Milk of Magnesia] 400 mg/5 mL suspension 15 - 30 ml PO DAILY PRN loratadine 10 mg tablet 10 mg PO DAILY PRN diphenhydramine HCl [Banophen] 25 mg capsule 25 - 50 mg PO Q8H PRN loperamide 2 mg capsule 2 - 4 mg PO Q1-2H PRN Rx Instructions: 4 MG AFTER FIRST LOOSE FLORY, THEN 2 MG PRN; do not exceed 16 mg per 24 hrs alum-mag hydroxide-simeth [Antacid Maximum Strength] 400-400-40 mg/5 mL suspension 5 - 10 ml PO ACHS PRN calcium carbonate [Antacid (calcium carbonate)] 200 mg calcium (500 mg) tablet,chewable 400 - 800 mg PO QID PRN dextromethorphan HBr 15 mg/5 mL liquid 15 - 30 mg PO Q4H PRN dextromethorphan-guaifenesin [Diabetic Tussin DM] 10-100 mg/5 mL liquid 5 - 10 ml PO Q4H PRN ibuprofen [Advil] 200 mg tablet 200 - 400 mg PO Q4H PRN lidocaine [AsperFlex (lidocaine)] 4 % adhesive patch,medicated 1 patch topical DAILY PRN Rx Instructions: may leave on for up to 12 hrs Discontinued potassium chloride 10 mEq Capsule, Extended Release 10 meq PO BIDWM Qty: 60 0RF Discharge Orders: Discharge Order (Routine); Ordered 12/10/22 Ordered By: El Martinez Activity Level: Activity as Tolerated and Use Walker Discharge Diet: Diabetic Follow Up Appointments: [facility] [Outside] (Patient being discharged to [facility]. ) Provider,Not a Local [Primary Care Provider] - Admit to: Assisted Living Discharge Potential: Fair Length of Stay: >90 days Can use facility standing orders?: Yes Code Status: Full Code TEDs: N/A Rehab Potential: Fair Oxygen: No Urinary Catheter: No Glucose Checks: Resume previous glucose monitoring schedule Orders are good >30 days: Yes Signature: El Martinez
== END 2022-12-10 15:00 ==
LOC: ED 16:02 → MEDSURG 16:12
PROVIDERS: Family Medicine; Hospitalist; Internal Medicine; Admitting Provider Orthopaedic Surgery; Emergency Provider Student in an Organized Health Care Education/Training Program; Visit Provider Orthopaedic Surgery
DX: R41.82 Altered mental status, unspecified (principal); N39.0 Urinary tract infection, site not specified; R94.5 Abnormal results of liver function studies; E87.6 Hypokalemia; R79.89 Other specified abnormal findings of blood chemistry; E11.9 Type 2 diabetes mellitus without complications; J44.9 Chronic obstructive pulmonary disease, unspecified; G89.4 Chronic pain syndrome; G47.10 Hypersomnia, unspecified; G47.30 Sleep apnea, unspecified; F17.200 Nicotine dependence, unspecified, uncomplicated; F11.90 Opioid use, unspecified, uncomplicated; F60.3 Borderline personality disorder; R53.1 Weakness; R53.81 Other malaise; R53.83 Other fatigue; B96.4 Proteus (mirabilis) (morganii) as the cause of diseases classified elsewhere; Z16.39 Resistance to other specified antimicrobial drug; F17.210 Nicotine dependence, cigarettes, uncomplicated; Z78.9 Other specified health status; Z79.82 Long term (current) use of aspirin; Z79.4 Long term (current) use of insulin; Z79.899 Other long term (current) drug therapy; Z96.659 Presence of unspecified artificial knee joint; Z90.49 Acquired absence of other specified parts of digestive tract; E86.0 Dehydration; Z20.822 Contact with and (suspected) exposure to COVID-19
CPT/HCPCS: 36415; 36573; 70450; 71045; 74177; 80048; 80053; 80069; 80076; 80306; 81001; 82247; 82248; 82803; 82962; 83605; 83690; 83735; 83880; 84132; 84145; 84450; 84460; 84484; 85025; 85027; 86140; 87040; 87086; 87186; 87631; 93005; 96361; 96365; 96366; 96367; 96368; 96372; 96375; 97162; 97165; 99283; 99285; G0378; A9270; C1751; J0456; J0696; J1170; J3480; J7030; J7050; J7120; Q9967

== ENCOUNTER 2023-01-14 21:33 | Outpatient (CLI) | payer BC, SELFPAY ==
--- OUTSIDE RECORDS SUMMARY | 2023-01-21 13:37 | XMS_ITS | CCD ---
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 Phone Donn MICHAUD, Miguel A Primary Care Provider Unavaila ble Unavailable Chronic Care Management Unavaila ble Summary Purpose DataExchange Insurance Providers Payer name Policy type / Coverage type Covered republican ID Effective Begin Date Effective End Date [place] Blue [place]Blue Shield [id number] 2022 [place] [id number] 2022 Unknown Family history Mother Diagnosis Age At Onset Glaucoma Unknown Brother Diagnosis Age At Onset Visual disturbance/blindness Unknown Glaucoma Unknown Father Diagnosis Age At Onset Stomach cancer Unknown Social History Social History Element Codes Description Effec tive Dates Tobacco history SNOMED CT: 89197264 Current every day smoker 07/01/[address]: 441344275 No Alcohol Consum ption 07/01/2022 Allergies, Adverse Reactions, Alerts Substance Reaction Codes Entered Date Inactivated Date Status Bee Sting Unknown 03/03/2022 No Inactive Date Ac tive NSAIDS Unknown 03/03/2022 No Inactive Date Ac tive PENICILLINS Unknown 03/03/2022 No Inactive Date Active losartan RxNorm: 587923 03/03/2022 No Inactive Da te Active aspirin Unknown 03/03/2022 No Inactive Date Ac tive tramadol RxNorm: 76006 03/03/2022 No Inactive Marek e Active Other: [...] Headache ICD-10: R51.9 ICD-9: 784.0 03/03/2022 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 ICD-10: Z79.4 03/03 Active Medications Medication Codes Instructions Start Date Stop Date Status Fill Instructions fluticasone propionate 50 mcg/actuation nasal spray,suspension RxNorm: 2211701 [facility] Nasal QD - Daily both nostrils 12/20/19 No Stop Date Active nicotine 21 mg/24 hr daily transdermal patch RxNorm: 510641 Apply 1 Transdermal QD 12/02/19 023 Inactive nicotine 21 mg/24 hr daily transdermal patch RxNorm: 555988 Apply 1 Transdermal QD 11/29/19 023 Inactive loratadine 10 mg tablet RxNorm: 129272 Take 1 Tablet(s) Oral QD as needed 11/23/19 23 024 Active loratadine 10 mg tablet RxNorm: 108974 Take 1 Tablet(s) Oral QD as needed 11/23/19 23 023 Inactive nicotine 21 mg/24 hr daily transdermal patch RxNorm: 226216 Apply 1 Transdermal QD 11/16/19 023 Inactive aspirin 81 mg tablet,delayed release RxNorm: 989552 Take 1 Tablet(s) Oral QD 11/15/19 23 024 Active 2ND REQUEST 11/11/2022 NEED KIM PLEASE THANK YOU nicotine 21 mg/24 hr daily transdermal patch RxNorm: 950994 Apply 1 Transdermal QD 11/02/19 023 Inactive amlodipine 10 mg tablet RxNorm: 773640 Take 1 Tablet(s) Oral QD 10/20/19 024 Active nicotine 21 mg/24 hr daily transdermal patch RxNorm: 029101 APPLY 1 PATCH ONCE DAILY 10/18/19 023 Inactive Pen Needle 30 gauge x 5/16 RxNorm: Use 1 Unit(s) TID Use as directed to administer insulin up to 3x daily 10/12/19 023 Inactive cholecalciferol (vitamin D3) 25 mcg (1,000 unit) tablet RxNorm: 544656 TAKE 1 TABLET BY MOUTH DAILY (1,000 UNITS) 09/14/19 23 024 Active 09/13/2022 PROACTIVE REFILL REQUEST FOR NEXT CYCLE PLEASE THANK YOU Systane Ultra 0.4 %-0.3 % eye drops RxNorm: 699121 Instill 1 Drop(s) Both eyes QID 09/06/19 No Stop Date Active Lantus Solostar U-100 Insulin 100 unit/mL (3 mL) subcutaneous pen RxNorm: 401623 Inject 20 Unit(s) Subcutaneous QHS every night at bedtime 09/01/19 No Stop Date Active diclofenac 1 % topical gel RxNorm: 428738 Apply 4 Gram(s) Topical QID (bilateral knees or area of pain per patient's request) 09/01/19 No Stop Date Active acetaminophen 325 mg tablet RxNorm: 258970 Take 1 Tablet(s) Oral Q4H every four hours as needed 09/01/19 No Stop Date Active Humalog KwikPen (U-100) Insulin 100 unit/mL subcutaneous RxNorm: 5484529 Unit(s) Subcutaneous Inject per sliding scale BID before lunch and dinner 09/01/19 No Stop Date Active Aspercreme (lidocaine) 4 % topical patch RxNorm: 0894638 Apply 1 Patch Topical QD (on for 12 hours, off for 12 hours) 09/01/19 No Stop Date Active melatonin 3 mg tablet RxNorm: 340223 Take 2 Tablet(s) Oral QHS every night at bedtime as needed (may repeat once) 09/01/19 No Stop Date Active Pen Needle 30 gauge x 516 RxNorm: Use as directed to administer insulin up to 3x daily 09/01/19 023 Inactive Januvia 100 mg tablet RxNorm: 375714 Take 1 Tablet(s) Oral QD 07/23/19 024 Active 2nd REQUEST FOR REFILLS 07-22-2022 NEED KIM PLEASE = THANK YOU duloxetine 60 mg capsule,delayed release RxNorm: 946028 Take 2 Capsule(s) Oral QD 07/23/19 23 024 Active 2nd REQUEST FOR REFILLS 07-22-2022 NEED KIM PLEASE = THANK YOU pantoprazole 40 mg tablet,delayed release RxNorm: 979462 TAKE 1 TABLET BY MOUTH EVERY MORNING BEFORE BREAKFAST 07/23/19 23 024 Active 2nd REQUEST FOR REFILLS 07-22-2022 NEED KIM PLEASE = THANK YOU magnesium oxide 400 mg (241.3 mg magnesium) tablet RxNorm: 752062 Take 1 Tablet(s) Oral BID 07/23/19 23 024 Active 2nd REQUEST FOR REFILLS 07-22-2022 NEED KIM PLEASE = THANK YOU acetaminophen 500 mg tablet RxNorm: 058137 Take 2 Tablet(s) Oral TID 07/23/19 23 024 Active 2nd REQUEST FOR REFILLS 07-22-2022 NEED KIM PLEASE = THANK YOU risperidone 2 mg tablet RxNorm: 972618 Take 1 Tablet(s) Oral BID 07/23/19 23 024 Active 2nd REQUEST FOR REFILLS 07-22-2022 NEED KIM PLEASE = THANK YOU hydrochlorothiazide 25 mg tablet RxNorm: 851163 Take 1 Tablet(s) Oral QD 07/23/19 23 024 Active 2nd REQUEST FOR REFILLS 07-22-2022 NEED KIM PLEASE = THANK YOU potassium chloride ER 10 mEq capsule,extended release RxNorm: 383971 TAKE 1 CAPSULE BY MOUTH TWICE DAILY WITH MEAL(S) 07/23/19 23 023 Inactive 2nd REQUEST FOR REFILLS 07-22-2022 NEED KIM PLEASE = THANK YOU buprenorphine HCl 2 mg sublingual tablet RxNorm: 866071 Take 1 Tablet(s) Sublingual TID 07/19/19 23 023 Inactive buprenorphine HCl 2 mg sublingual tablet RxNorm: 102770 Take 1 Tablet(s) Sublingual TID 07/19/19 23 023 Inactive oxycodone 5 mg tablet RxNorm: 9780318 Take 1 Tablet(s) Oral BID x7 days then decrease to 1 tab once daily x 7 days then d/c 07/09/19 23 023 Inactive latanoprost 0.005 % eye drops RxNorm: 853441 Take 1 Drop(s) Both eyes QHS every night at bedtime 07/07/19 23 024 Active buprenorphine 5 mcg/hour weekly transdermal patch RxNorm: 021172 Apply 1 Transdermal once every 7 days 07/06/19 23 023 Inactive zolpidem 5 mg tablet RxNorm: 759483 Take 1 Tablet(s) Oral QHS every night at bedtime 07/06/19 23 023 Inactive buprenorphine 5 mcg/hour weekly transdermal patch RxNorm: 215519 Apply 1 Transdermal once every 7 days 07/06/19 23 023 Inactive start after stops oxycodone. belbuca film not covered famotidine 20 mg tablet RxNorm: 140538 Give 1 Tablet(s) Oral QHS every night at bedtime 07/02/19 23 024 Active torsemide 20 mg tablet RxNorm: 360805 Take 1 Tablet(s) Oral QAM every morning 07/02/19 23 024 Active atorvastatin 10 mg tablet RxNorm: 392963 Take 1 Tablet(s) Oral QHS every night at bedtime 07/02/19 023 Inactive dorzolamide 22.3 mg-timolol 6.8 mg/mL eye drops RxNorm: 1384616 Apply 1 Drop(s) Both eyes BID 07/02/19 024 Active fluticasone propionate 50 mcg/actuation nasal spray,suspension RxNorm: 3420196 [facility] 2 [facility] Nasal QD - Daily both nostrils 07/02/19 023 Inactive acetaminophen 500 mg tablet RxNorm: 870329 Take 2 Tablet(s) Oral TID 07/02/19 023 Inactive amlodipine 5 mg tablet RxNorm: 463906 Take 1 Tablet(s) Oral QD 07/02/19 023 Inactive nicotine 21 mg/24 hr daily transdermal patch RxNorm: 925703 Apply 1 Patch Transdermal QD Remove old patch prior to placing the new one 07/02/19 023 Inactive gabapentin 600 mg tablet RxNorm: 097820 Take 1 Tablet(s) Oral TID 07/02/19 023 Inactive risperidone 2 mg tablet RxNorm: 932961 Take 1 Tablet(s) Oral BID 07/02/19 023 Inactive pantoprazole 40 mg intravenous solution RxNorm: 615282 Take 1 Tablet(s) Intravenous QAM every morning 07/02/19 023 Inactive Januvia 100 mg tablet RxNorm: 763539 Take 1 Tablet(s) Oral QD 07/02/19 023 Inactive potassium chloride ER 10 mEq tablet,extended release RxNorm: 913395 Take 1 Tablet(s) Oral BID 07/02/19 023 Inactive Belbuca 75 mcg buccal film RxNorm: 7213744 Take 1/2 film (37.5mcg) (cut diagonally) BID (start AFTER stopping oxycodone) 07/02/19 023 Inactive start belbuca in 7 days AFTER patient stops oxycodone aspirin 81 mg tablet,delayed release RxNorm: 737279 Take 1 Tablet(s) Oral QD 07/02/19 023 Inactive latanoprost 0.005 % eye drops RxNorm: 016196 Take 1 Drop(s) Both eyes QHS every night at bedtime 07/02/19 023 Inactive Systane Ultra 0.4 %-0.3 % eye drops RxNorm: 740097 Apply 1 Drop(s) Both eyes QID 07/02/19 023 Inactive Lantus Solostar U-100 Insulin 100 unit/mL (3 mL) subcutaneous pen RxNorm: 974180 Take 40 Unit(s) Subcutaneous QHS every night at bedtime 07/02/19 023 Inactive oxybutynin chloride 5 mg tablet RxNorm: 449298 Administer 1 Tablet(s) Oral QHS every night at bedtime 07/02/19 023 Inactive Miralax 17 gram oral powder packet RxNorm: 179542 Take 1 Packet Oral QD 07/02/19 023 Inactive hydrochlorothiazide 25 mg tablet RxNorm: 683772 Take 1 Tablet(s) Oral QD 07/02/19 023 Inactive oxycodone 5 mg tablet RxNorm: 8008423 Take 1 Tablet(s) Oral TID then discontinue and start belbuca (d/c 10mg TID) 07/02/19 023 Inactive stop after 7 days duloxetine 60 mg capsule,delayed release RxNorm: 154287 Take 2 Capsule(s) Oral QD 07/02/19 023 Inactive Narcan 4 mg/actuation nasal spray RxNorm: 7186293 Give 1 [facility] Nasal UD as directed 1 spray contents of ONE device into nostril, call 911. May repeat once with 2nd device 07/02/19 23 023 Inactive magnesium oxide 400 mg (241.3 mg magnesium) tablet RxNorm: 855870 Give 1 Tablet(s) Oral BID 07/02/19 23 023 Inactive cholecalciferol (vitamin D3) 25 mcg (1,000 unit) tablet RxNorm: 159140 Take 1 Tablet(s) Oral QAM every morning 07/02/19 023 Inactive oxycodone 5 mg tablet RxNorm: 7406832 Take 2 Tablet(s) Oral TID PRN 06/04/19 023 Inactive azithromycin 250 mg tablet RxNorm: 962912 Take Tablet(s) Oral QD 2 Tablets PO QD x 1 Day - Then 1 Tablet PO QD x 4 Days 05/10/19 023 Inactive oxycodone 5 mg tablet RxNorm: 4150529 Take 2 Tablet(s) Oral TID /difficulty breathing 05/03/19 023 Inactive oxycodone 5 mg tablet RxNorm: 3671936 Take 2 Tablet(s) Oral TID /difficulty breathing 03/03/20 022 Inactive azithromycin 250 mg tablet RxNorm: 603839 Take Tablet(s) Oral QD 2 Tablets PO QD x 1 Day - Then 1 Tablet PO QD x 4 Days 05/10/19 023 Inactive zolpidem 5 mg tablet RxNorm: 857400 Take 1 Tablet(s) Oral QHS every night [...] CHNG SMOKING 3-[address]: 2 37515117 CPT-4: 23883 06/29/2022 Reason For Visit No Reason For Visit data Plan of Care Planned Activity Notes Codes Status Date Referral: [facility] WPtel: [phone] [place], [place] [id number] Referral Records Received 07/18/2022 Instructions Comment Date Rena is a resident a [facility].?? Previously was seen by doctor in [place].?? First [facility] visit 03/10.?? Arthritis/pain complaints and anxiety are her biggest concerns.?? Johnnie just (in 2020). 2 sons - son Korey visits (From [place]).?? 10/27/2022
== END 2023-01-14 21:34 | disposition home or self-care (01) ==
LOC: AMB 01-21 13:27
PROVIDERS: Visit Provider Family Medicine
DX: R41.82 Altered mental status, unspecified (principal); R53.1 Weakness
CPT/HCPCS: A0425; A0427

== ENCOUNTER 2023-01-14 21:57 | Emergency (ER) | payer BC, SELFPAY ==
[2023-01-14 22:03] VITALS: BP 125/103; PULSE 89; RESP 20; TEMP 36.3; O2SAT 95
--- NOTE | 2023-01-14 22:13 | ED.GENADULT ---
HPI - General Adult General Chief complaint: Unspecified Complaint, Adult Stated complaint: UTI Time Seen by Provider: 01/14/23 22:13 History of Present Illness HPI narrative: pt been feeling unwell all day . EMS blood sugar 172. Per staff on scene , last time pt felt like this, pt had a UTI. Per EMS, pt room had a foul odor, urine in room was dark in color. 73-year-old woman coming to the emergency department with concern of potential infection specifically urinary tract infection. Resides at local nursing facility [facility]. Reportedly feeling unwell today. No vomiting reported. No fevers reported. No rashes. Arrives via EMS in a do note that the room had a foul order and urine in the room was rather dark. Apparently when she has felt like this in the past it has been a urinary tract infection. EMS checked blood sugar 172. No noted recent falls. No cough or cold symptoms. Related Data Home Medications Medication Instructions Recorded Confirmed aspirin 81 mg tablet,delayed 81 mg PO DAILY 10/19/21 12/08/22 release dorzolamide 22.3 mg-timolol 6.8 1 drp ophthalmic (eye) BID 10/19/21 12/08/22 mg/mL eye drops duloxetine 60 mg capsule,delayed 120 mg PO DAILY 10/19/21 12/08/22 release famotidine 20 mg tablet 20 mg PO HS 10/19/21 12/08/22 fluticasone propionate 50 2 spray intranasal DAILY 10/19/21 12/08/22 mcg/actuation nasal spray,suspension hydrochlorothiazide 25 mg tablet 25 mg PO DAILY 10/19/21 12/08/22 insulin aspart U-100 100 unit/mL 1 - 7 unit subcut BID@,18 10/19/21 12/08/22 (3 mL) subcutaneous pen insulin glargine 100 unit/mL (3 20 unit subcut HS 10/19/21 12/08/22 mL) subcutaneous pen (Lantus Solostar U-100 Insulin) latanoprost 0.005 % eye drops 1 drp ophthalmic (eye) HS 10/19/21 12/08/22 pantoprazole 40 mg tablet,delayed 40 mg PO DAILY 10/19/21 12/08/22 release risperidone 2 mg tablet 2 mg PO BID 10/19/21 12/08/22 atorvastatin 10 mg tablet 10 mg PO HS 03/13/22 12/08/22 cholecalciferol (vitamin D3) 25 1,000 unit PO DAILY 03/13/22 12/08/22 mcg (1,000 unit) tablet diclofenac sodium 1 % topical gel 4 g topical QID 03/13/22 12/08/22 epinephrine 0.3 mg/0.3 mL 0.3 mg IM PRN PRN 03/13/22 10/04/22 injection, auto-injector nicotine 21 mg/24 hr daily 1 patch topical DAILY 03/13/22 10/04/22 transdermal patch peg 400-propylene glycol 0.4 %-0.3 1 drp ophthalmic (eye) QID 03/13/22 12/08/22 % eye drops (Systane Ultra) polyethylene glycol 3350 17 17 g PO DAILY 03/13/22 10/04/22 gram/dose oral powder (Gavilax) sitagliptin phosphate 100 mg 100 mg PO DAILY 03/13/22 12/08/22 tablet (Januvia) acetaminophen 325 mg tablet 325 - 650 mg PO Q4H PRN 12/08/22 12/08/22 aluminum-mag hydroxide-simethicone 5 - 10 ml PO ACHS PRN 12/08/22 12/08/22 400 mg-400 mg-40 mg/5 mL oral susp (Antacid Maximum Strength) amlodipine 10 mg tablet 10 mg PO DAILY 12/08/22 12/08/22 calcium carbonate 200 mg calcium 400 - 800 mg PO QID PRN 12/08/22 12/08/22 (500 mg) chewable tablet (Antacid (calcium carbonate)) dextromethorphan HBr 15 mg/5 mL 15 - 30 mg PO Q4H PRN 12/08/22 12/08/22 oral liquid dextromethorphan-guaifenesin 10 5 - 10 ml PO Q4H PRN 12/08/22 12/08/22 mg-100 mg/5 mL oral liquid (Diabetic Tussin DM) diphenhydramine HCl 25 mg capsule 25 - 50 mg PO Q8H PRN 12/08/22 12/08/22 (Banophen) ibuprofen 200 mg tablet (Advil) 200 - 400 mg PO Q4H PRN 12/08/22 12/08/22 lidocaine 4 % topical patch 1 patch topical DAILY PRN 12/08/22 12/08/22 (AsperFlex (lidocaine)) loperamide 2 mg capsule 2 - 4 mg PO Q1-2H PRN 12/08/22 12/08/22 loratadine 10 mg tablet 10 mg PO DAILY PRN 12/08/22 12/08/22 magnesium hydroxide 400 mg/5 mL 15 - 30 ml PO DAILY PRN 12/08/22 12/08/22 oral suspension (Milk of Magnesia) melatonin 3 mg tablet 6 mg PO HS 12/08/22 12/08/22 Previous Rx's Medication Instructions Recorded acetaminophen 500 mg tablet 1,000 mg (2 x 500 mg) PO TID #180 03/16/22 tabs magnesium oxide 400 mg (241.3 mg 400 mg PO BID #60 tabs 03/16/22 magnesium) tablet torsemide 20 mg tablet 20 mg PO DAILY@0800 #30 tabs 03/16/22 cephalexin 500 mg capsule 500 mg PO TID #30 caps 12/10/22 potassium chloride 10 mEq 20 meq (2 x 10 mEq) PO BIDWM 30 12/10/22 capsule,extended release days #60 caps Allergies Allergy/AdvReac Type Severity Reaction Status Date / Time aspirin Allergy Unknown Verified 10/04/22 15:08 losartan Allergy Unknown Verified 10/04/22 15:08 tramadol Allergy Unknown Verified 10/04/22 15:08 varenicline Allergy Unknown Verified 10/04/22 15:08 bee venom protein (honey bee) Allergy Verified 10/04/22 15:08 ketorolac [From Toradol] Allergy Verified 10/04/22 15:08 NSAIDS (Non-Steroidal Allergy Verified 10/04/22 15:08 Anti-Inflamma Penicillins Allergy Verified 10/04/22 15:08 Review of Systems Status of ROS: Reports: unobtainable due to mental status [facility] Medical History Altered mental status ?R41.82 - Altered mental status, unspecified (ICD-10) Type 2 diabetes mellitus ?E11.9 - Type 2 diabetes mellitus without complications (ICD-10) Sleep apnea with hypersomnolence ?G47.10 - Hypersomnia, unspecified (ICD-10) ?G47.30 - Sleep apnea, unspecified (ICD-10) Hepatic steatosis ?K76.0 - Fatty (change of) liver, not elsewhere classified (ICD-10) Physical deconditioning ?R53.81 - Other malaise (ICD-10) Polypharmacy ?Z79.899 - Other retirement (current) drug therapy (ICD-10) Chronic, continuous use of opioids ?F11.90 - Opioid use, unspecified, uncomplicated (ICD-10) Heart failure ?I50.9 - Heart failure, unspecified (ICD-10) Osteoarthritis ?M19.90 - Unspecified osteoarthritis, unspecified site (ICD-10) Degenerative disc disease, lumbar ?M51.36 - Other intervertebral disc degeneration, lumbar region (ICD-10) Anxiety, generalized ?F41.1 - Generalized anxiety disorder (ICD-10) Antisocial personality disorder ?F60.2 - Antisocial personality disorder (ICD-10) Back pain ?M54.9 - Dorsalgia, unspecified (ICD-10) Chronic pain syndrome ?G89.4 - Chronic pain syndrome (ICD-10) Nicotine dependence ?F17.200 - Nicotine dependence, unspecified, uncomplicated (ICD-10) Borderline personality disorder ?F60.3 - Borderline personality disorder (ICD-10) Asthma ?J45.909 - Unspecified asthma, uncomplicated (ICD-10) COPD (chronic obstructive pulmonary disease) ?J44.9 - Chronic obstructive pulmonary disease, unspecified (ICD-10) Diabetes mellitus type 2 in obese ?E11.69 - Type 2 diabetes mellitus with other specified complication (ICD-10) ?E66.9 - Obesity, unspecified (ICD-10) Hypertension, essential ?I10 - Essential (primary) hypertension (ICD-10) Obesity ?E66.9 - Obesity, unspecified (ICD-10) Surgical History History of total knee arthroplasty ?Z96.659 - Presence of unspecified artificial knee joint (ICD-10) History of cholecystectomy ?Z90.49 - Acquired absence of other specified parts of digestive tract (ICD-10) Family History Father Stomach cancer Brother Heart disease Social History Narrative: Patient is a resident of [facility]. She tells me she has been smoking 2 or 3 cigarettes per day. She is attempting to quit. She does not drink alcohol. Her healthcare power of apiculture teacher would be her son Korey Miles, code status is full. What is your current living situation?: I presently have a place to live Problems where you live: no known problems Problems where you live details: no known problems In the past 12 months, utilities in danger of being shut off: unable to answer In past 12 months, lack of transportation kept you from medical appts, meetings, work, or getting things needed for daily living: unable to answer In the past 12 mos, have been you worried that your food would run out before you had money to buy more?: unable to answer In the past 12 mos, the food you bought just didn't last and you didn't have money to buy more?: unable to answer Highest level of school completed/degree received: don't know Smoking Status: Current every day smoker What tobacco products do you use: cigarettes Smoking packs per day: 0.5 Smoking cigarettes per day: 10.0 Smoking quit date/years: <= 15 years ago Do you use any of these nicotine containing products: None Nicotine containing products detail: quit today Second hand tobacco smoke exposure: No How often do you have a drink containing alcohol: never How often do you have six or more drinks on one occasion: Never AUDIT-C Alcohol total score: 0 Non-prescribed substance use: denies use Caffeine: Yes How often does anyone, including family, friends and others, physically hurt you: unable to answer How often does anyone, including family, friends and others, insult or talk down to you: unable to answer How often does anyone, including family, friends and others, threaten you with harm: unable to answer How often does anyone, including family, friends and others, scream or curse at you: unable to answer service: No Exam Narrative: Exam Narrative: Does not appear to be in distress. Breathing easily. Little hard of hearing otherwise cranial nerves 2-12 look to be intact. Some cognitive difficulties I think as well. She seems to prefer to just sleep; I would estimate GCS of 14. Needs a bit of prompting to attend a conversation/open her eyes. Lungs are clear. Is a little dry and she is requesting water. I gave her some. Not erythematous. Heart in regular rate and rhythm. Abdomen is soft obese. Nontender. Trace lower extremity edema. No intertrigo. Const: Vital Signs, click to edit/add: Vital Signs - 24 hr 01/14/23 22:03 Temperature 97.3 F L Pulse Rate [Left P ulse Oximeter] 89 Respiratory Rate 20 Blood Pressure [Ri ght Upper Arm] 125/103 H Pulse Oximetry 95 Oxygen Delivery Me thod Room Air Documenting provider has reviewed patient's vital signs: yes Course Vital Signs Vital signs: Initial Vital Signs Temperature 97.3 F L 01/14/23 22:03 Temperature Source Temporal Artery Scan 01/14/23 22:03 Pulse Rate 89 01/14/23 22:03 Pulse Rhythm Regular 01/14/23 22:03 Respiratory Rate 20 01/14/23 22:03 Blood Pressure 125/103 H 01/14/23 22:03 Blood Pressure Mean 110 H 01/14/23 22:03 Blood Pressure Position Semi-Fowlers 01/14/23 22:03 Pulse Oximetry 95 01/14/23 22:03 Oxygen Delivery Method Room Air 01/14/23 22:03 Vital Signs Temperature 97.3 F L 01/14/23 22:03 Pulse Rate 89 01/14/23 22:03 Respiratory Rate 20 01/14/23 22:03 Blood Pressure 125/103 H 01/14/23 22:03 Pulse Oximetry 95 01/14/23 22:03 Oxygen Delivery Method Room Air 01/14/23 22:03 Temperature 97.3 F L 01/14/23 22:03 Pulse Rate 89 01/14/23 22:03 Respiratory Rate 20 01/14/23 22:03 Blood Pressure 125/103 H 01/14/23 22:03 Pulse Oximetry 95 01/14/23 22:03 Oxygen Delivery Method Room Air 01/14/23 22:03 Medical Decision Making MDM Narrative Medical decision making narrative: I think here will have to screen with labs. Patient has no complaints and does not appear to be bothered. She also offers essentially no information in response to questions. Objectively I see elevated diastolic blood pressure. Looks to have been diagnosed with hypersomnolence in the past. History of encephalopathy. Anemia would be in differential. Unspecified viral infection. Will need to screen for COVID among other. Labs essentially negative though with mildly elevated AST. This is not new. Due to busy emergency department was initially assessed in the [place]. Once in the room this aforementioned odor was noted. With dependency program director present did collect wet prep after permission obtained from patient. Whitish yellow copious fluid. No inflammatory changes in the perineal/labial area. Wet prep with negative. I think will need some watchful waiting for whatever is going on to declare itself or just to clear. Could be medication related? Mental health? Stable in the ER. See patient discharge plan Medical Records Medical records reviewed: Yes I reviewed the patient's medical records Lab Data Labs: Lab Results 01/14/23 01/14/23 01/14/23 Range/Units 00:10 22:21 23:11 WBC 7.56 (4.50-11.00) K/uL RBC 4.03 (4.00-5.20) m/uL Hgb 12.3 (12.0-16.0) gm/dL Hct 37.7 (33.0-51.0) % MCV 94 (80-100) fL MCH 31 (26-34) pg MCHC 33 (32-36) gm/dL RDW Coeff of Rosa 12.0 (11.5-15.5) % Plt Count 296 (140-440) K/uL Neut % (Auto) 48.3 (42.0-72.0) % Lymph % (Auto) 40.3 (20-44) % [place] % (Auto) 8.5 (0.0-11.0) % Eos % (Auto) 1.9 (0.0-7.0) % Baso % (Auto) 0.1 (0.0-3.0) % Neut # (Auto) 3.65 (1.7-7.0) K/uL Lymph # (Auto) 3.05 H (0.90-2.90) K/uL [place] # (Auto) 0.60 (0.00-0.90) K/UL Eos # (Auto) 0.14 (0.00-0.50) K/uL Baso # (Auto) 0.01 (0.00-0.30) K/uL Abs Immat Gran (auto) 0.07 (0.00-0.30) K/uL Imm/Tot Granulo (auto) 0.9 % Sodium 141 (135-149) mmol/L Potassium 3.4 L (3.6-5.1) mmol/L Chloride 102 (96-114) mmol/L Carbon Dioxide 33 H (20-32) mmol/L Anion Gap 6 L (7-15) mEq/L BUN 10 (7-30) mg/dL Creatinine 0.5 (0.5-1.5) mg/dL Estimated GFR 100 ml/min Glucose 113 (60-115) mg/dL Calcium 9.2 (8.4-10.6) mg/dL Magnesium 2.1 (1.5-2.6) mg/dL Total Bilirubin 0.6 (0.1-1.5) mg/dL Direct Bilirubin 0.2 (0.0-0.5) mg/dL AST 62 H (12-35) U/L ALT 30 (4-35) U/L Alkaline Phosphatase 113 (40-150) U/L C-Reactive Protein < 0.5 L (0.5-1.0) mg/dL Total Protein 7.1 (6.0-8.3) g/dL Albumin 3.6 (3.3-5.0) g/dL Urine Color Yellow (Yellow) Urine Appearance Clear (Clear) Urine pH 7.0 (5.0-8.5) Ur Specific [place] 1.015 (1.000-1.030) Urine Protein Negative (Negative) Urine Glucose (UA) Negative (Negative) Urine Ketones Trace A (Negative) Urine Blood Negative (Negative) Urine Nitrite Negative (Negative) Urine Bilirubin 1+ A (Negative) Urine Urobilinogen 2.0 A (0.2-1.0) Ur Leukocyte Esterase Negative (Negative) Urine RBC 0-2 (0-2) Urine WBC 0-2 (0-5) Ur Squamous Epith Cells Moderate A (None-Few) Urine Bacteria None (None) Vaginal Trichomonas (None Seen) Vaginal Yeast (None Seen) Vaginal Clue Cells (None Seen) Urine Opiates Screen (Negative) Ur Oxycodone Screen (Negative) Urine Methadone Screen (Negative) Ur Propoxyphene Screen (Negative) Ur Barbiturates Screen (Negative) U Tricyclic Antidepress (Negative) Ur Phencyclidine Scrn (Negative) Ur Amphetamines Screen (Negative) U Methamphetamines Scrn (Negative) U Benzodiazepines Scrn (Negative) Urine Cocaine Screen (Negative) U Marijuana (THC) Screen (Negative) Ur Drug Screen Comment SARS-CoV-2 (PCR) Negative SARS-CoV-2 (Negative) Influenza Type A (PCR) Negative PCR FLU A (Negative) Influenza Type B (PCR) Negative PCR FLU B (Negative) Lab Acknowledgement 01/15/23 01/15/23 01/15/23 Range/Units 00:23 01:05 01:49 WBC (4.50-11.00) K/uL RBC (4.00-5.20) m/uL Hgb (12.0-16.0) gm/dL Hct (33.0-51.0) % MCV (80-100) fL MCH (26-34) pg MCHC (32-36) gm/dL RDW Coeff of Rosa (11.5-15.5) % Plt Count (140-440) K/uL Neut % (Auto) (42.0-72.0) % Lymph % (Auto) (20-44) % [place] % (Auto) (0.0-11.0) % Eos % (Auto) (0.0-7.0) % Baso % (Auto) (0.0-3.0) % Neut # (Auto) (1.7-7.0) K/uL Lymph # (Auto) (0.90-2.90) K/uL [place] # (Auto) (0.00-0.90) K/UL Eos # (Auto) (0.00-0.50) K/uL Baso # (Auto) (0.00-0.30) K/uL Abs Immat Gran (auto) (0.00-0.30) K/uL Imm/Tot Granulo (auto) % Sodium (135-149) mmol/L Potassium (3.6-5.1) mmol/L Chloride (96-114) mmol/L Carbon Dioxide (20-32) mmol/L Anion Gap (7-15) mEq/L BUN (7-30) mg/dL Creatinine (0.5-1.5) mg/dL Estimated GFR ml/min Glucose (60-115) mg/dL Calcium (8.4-10.6) mg/dL Magnesium (1.5-2.6) mg/dL Total Bilirubin (0.1-1.5) mg/dL Direct Bilirubin (0.0-0.5) mg/dL AST (12-35) U/L ALT (4-35) U/L Alkaline Phosphatase (40-150) U/L C-Reactive Protein (0.5-1.0) mg/dL Total Protein (6.0-8.3) g/dL Albumin (3.3-5.0) g/dL Urine Color (Yellow) Urine Appearance (Clear) Urine pH (5.0-8.5) Ur Specific [place] (1.000-1.030) Urine Protein (Negative) Urine Glucose (UA) (Negative) Urine Ketones (Negative) Urine Blood (Negative) Urine Nitrite (Negative) Urine Bilirubin (Negative) Urine Urobilinogen (0.2-1.0) Ur Leukocyte Esterase (Negative) Urine RBC (0-2) Urine WBC (0-5) Ur Squamous Epith Cells (None-Few) Urine Bacteria (None) Vaginal Trichomonas No Trichomonas Seen (None Seen) Vaginal Yeast No Yeast Seen (None Seen) Vaginal Clue Cells No Clue Cells Seen (None Seen) Urine Opiates Screen Negative (Negative) Ur Oxycodone Screen Negative (Negative) Urine Methadone Screen Negative (Negative) Ur Propoxyphene Screen Negative (Negative) Ur Barbiturates Screen Negative (Negative) U Tricyclic Antidepress Negative (Negative) Ur Phencyclidine Scrn Negative (Negative) Ur Amphetamines Screen Negative (Negative) U Methamphetamines Scrn Negative (Negative) U Benzodiazepines Scrn Negative (Negative) Urine Cocaine Screen Negative (Negative) U Marijuana (THC) Screen Negative (Negative) Ur Drug Screen Comment See Note SARS-CoV-2 (PCR) (Negative) Influenza Type A (PCR) (Negative) Influenza Type B (PCR) (Negative) Lab Acknowledgement Test Added Discharge Plan Discharge Clinical Impression: Malaise Patient Disposition: Home w/ Parent or Adult Condition: Stable Additional Instructions: I am not sure what might be causing you to feel generally unwell at this point. Take copies of your labs today with you if needed for comparison. Follow-up in a week if not improved. Would also review medications at that time. Return for increasing shortness of breath, chest pain, uncontrolled fever. Prescriptions: No Action aspirin 81 mg tablet,delayed release (DR/EC) 81 mg PO DAILY latanoprost 0.005 % drops 1 drp OPHTHALMIC (EYE) HS Rx Instructions: BOTH EYES risperidone 2 mg tablet 2 mg PO BID famotidine 20 mg tablet 20 mg PO HS pantoprazole 40 mg tablet,delayed release (DR/EC) 40 mg PO DAILY dorzolamide-timolol 22.3-6.8 mg/mL drops 1 drp OPHTHALMIC (EYE) BID Rx Instructions: BOTH EYES hydrochlorothiazide 25 mg tablet 25 mg PO DAILY fluticasone propionate 50 mcg/actuation spray,suspension 2 spray INTRANASAL DAILY insulin aspart U-100 100 unit/mL (3 mL) insulin pen 1 - 7 unit SUBCUT BID@12,18 Rx Instructions: 0-7 UNITS PER SLIDING SCALE duloxetine 60 mg capsule,delayed release(DR/EC) 120 mg PO DAILY insulin glargine [Lantus Solostar U-100 Insulin] 100 unit/mL (3 mL) insulin pen 20 unit SUBCUT HS atorvastatin 10 mg tablet 10 mg PO HS cholecalciferol (vitamin D3) 25 mcg (1,000 unit) tablet 1,000 unit PO DAILY nicotine 21 mg/24 hr patch 24 hour 1 patch topical DAILY Systane Ultra 0.4-0.3 % drops 1 drp ophthalmic (eye) QID Rx Instructions: BOTH EYES polyethylene glycol 3350 [Gavilax] 17 gram/dose powder 17 g PO DAILY Januvia 100 mg tablet 100 mg PO DAILY diclofenac sodium 1 % gel 4 g topical QID Rx Instructions: PER RESIDENT REQUEST epinephrine 0.3 mg/0.3 mL auto-injector 0.3 mg IM PRN PRN Rx Instructions: do not exceed 3 doses per episode magnesium oxide 400 mg (241.3 mg magnesium) Tablet 400 mg PO BID Qty: 60 0RF torsemide 20 mg Tablet 20 mg PO DAILY@0800 Qty: 30 0RF acetaminophen 500 mg tablet 1,000 mg PO TID Qty: 180 0RF amlodipine 10 mg tablet 10 mg PO DAILY melatonin 3 mg tablet 6 mg PO HS acetaminophen 325 mg tablet 325 - 650 mg PO Q4H PRN magnesium hydroxide [Milk of Magnesia] 400 mg/5 mL suspension 15 - 30 ml PO DAILY PRN loratadine 10 mg tablet 10 mg PO DAILY PRN diphenhydramine HCl [Banophen] 25 mg capsule 25 - 50 mg PO Q8H PRN loperamide 2 mg capsule 2 - 4 mg PO Q1-2H PRN Rx Instructions: 4 MG AFTER FIRST LOOSE FLORY, THEN 2 MG PRN; do not exceed 16 mg per 24 hrs alum-mag hydroxide-simeth [Antacid Maximum Strength] 400-400-40 mg/5 mL suspension 5 - 10 ml PO ACHS PRN calcium carbonate [Antacid (calcium carbonate)] 200 mg calcium (500 mg) tablet,chewable 400 - 800 mg PO QID PRN dextromethorphan HBr 15 mg/5 mL liquid 15 - 30 mg PO Q4H PRN dextromethorphan-guaifenesin [Diabetic Tussin DM] 10-100 mg/5 mL liquid 5 - 10 ml PO Q4H PRN ibuprofen [Advil] 200 mg tablet 200 - 400 mg PO Q4H PRN lidocaine [AsperFlex (lidocaine)] 4 % adhesive patch,medicated 1 patch topical DAILY PRN Rx Instructions: may leave on for up to 12 hrs potassium chloride 10 mEq Capsule, Extended Release 20 meq PO BIDWM 30 Days Qty: 60 1RF cephalexin 500 mg capsule 500 mg PO TID Qty: 30 0RF Follow Up/Referrals: Provider,Not a Local [Primary Care Provider] - Stand Alone [facility]: [facility] Discharge Comment: [facility] staff arrived to transport patient back to the facility.
--- OUTSIDE RECORDS SUMMARY | 2023-01-14 22:43 | XMS_ITS | CCD ---
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 Phone Donn MICHAUD, Miguel A Primary Care Provider Unavaila ble Unavailable Chronic Care Management Unavaila ble Summary Purpose DataExchange Insurance Providers Payer name Policy type / Coverage type Covered republican ID Effective Begin Date Effective End Date [place] Blue [place]Blue Shield [id number] 2022 [place] [id number] 2022 Unknown Family history Mother Diagnosis Age At Onset Glaucoma Unknown Brother Diagnosis Age At Onset Visual disturbance/blindness Unknown Glaucoma Unknown Father Diagnosis Age At Onset Stomach cancer Unknown Social History Social History Element Codes Description Effec tive Dates Tobacco history SNOMED CT: 45644954 Current every day smoker 07/01/[address]: 778375444 No Alcohol Consum ption 07/01/2022 Allergies, Adverse Reactions, Alerts Substance Reaction Codes Entered Date Inactivated Date Status Bee Sting Unknown 03/03/2022 No Inactive Date Ac tive NSAIDS Unknown 03/03/2022 No Inactive Date Ac tive PENICILLINS Unknown 03/03/2022 No Inactive Date Active losartan RxNorm: 524366 03/03/2022 No Inactive Da te Active aspirin Unknown 03/03/2022 No Inactive Date Ac tive tramadol RxNorm: 82351 03/03/2022 No Inactive Marek e Active Other: [...] Headache ICD-10: R51.9 ICD-9: 784.0 03/03/2022 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 ICD-10: Z79.4 03/03 Active Medications Medication Codes Instructions Start Date Stop Date Status Fill Instructions atorvastatin 10 mg tablet RxNorm: 165212 Take 1 Tablet(s) Oral QD 01/06/20 024 Active 01/05/2023 PROACTIVE REFILL REQUEST FOR NEXT CYCLE PLEASE THANK YOU fluticasone propionate 50 mcg/actuation nasal spray,suspension RxNorm: 7307555 [place] 2 [place] Nasal QD - Daily both nostrils 12/20/19 No Stop Date Active nicotine 21 mg/24 hr daily transdermal patch RxNorm: 709529 Apply 1 Transdermal QD 12/02/192 023 Inactive nicotine 21 mg/24 hr daily transdermal patch RxNorm: 281367 Apply 1 Transdermal QD 11/29/19 023 Inactive loratadine 10 mg tablet RxNorm: 476846 Take 1 Tablet(s) Oral QD as needed 11/23/19 23 024 Active loratadine 10 mg tablet RxNorm: 967097 Take 1 Tablet(s) Oral QD as needed 11/23/19 23 023 Inactive nicotine 21 mg/24 hr daily transdermal patch RxNorm: 161316 Apply 1 Transdermal QD 11/16/19 023 Inactive aspirin 81 mg tablet,delayed release RxNorm: 074539 Take 1 Tablet(s) Oral QD 11/15/19 024 Active 2ND REQUEST 11/11/2022 NEED KIM PLEASE THANK YOU nicotine 21 mg/24 hr daily transdermal patch RxNorm: 608685 Apply 1 Transdermal QD 11/02/19 023 Inactive amlodipine 10 mg tablet RxNorm: 629934 Take 1 Tablet(s) Oral QD 10/20/19 024 Active nicotine 21 mg/24 hr daily transdermal patch RxNorm: 806923 APPLY 1 PATCH ONCE DAILY 10/18/19 023 Inactive Pen Needle 30 gauge x 5/16 RxNorm: Use 1 Unit(s) TID Use as directed to administer insulin up to 3x daily 10/12/19 23 023 Inactive cholecalciferol (vitamin D3) 25 mcg (1,000 unit) tablet RxNorm: 761052 TAKE 1 TABLET BY MOUTH DAILY (1,000 UNITS) 09/14/19 23 024 Active 09/13/2022 PROACTIVE REFILL REQUEST FOR NEXT CYCLE PLEASE THANK YOU Systane Ultra 0.4 %-0.3 % eye drops RxNorm: 062361 Instill 1 Drop(s) Both eyes QID 09/06/19 No Stop Date Active Lantus Solostar U-100 Insulin 100 unit/mL (3 mL) subcutaneous pen RxNorm: 343071 Inject 20 Unit(s) Subcutaneous QHS every night at bedtime 09/01/19 No Stop Date Active diclofenac 1 % topical gel RxNorm: 532022 Apply 4 Gram(s) Topical QID (bilateral knees or area of pain per patient's request) 09/01/19 No Stop Date Active acetaminophen 325 mg tablet RxNorm: 528157 Take 1 Tablet(s) Oral Q4H every four hours as needed 09/01/19 No Stop Date Active Humalog KwikPen (U-100) Insulin 100 unit/mL subcutaneous RxNorm: 9877745 Unit(s) Subcutaneous Inject per sliding scale BID before lunch and dinner 09/01/19 No Stop Date Active Aspercreme (lidocaine) 4 % topical patch RxNorm: 1446038 Apply 1 Patch Topical QD (on for 12 hours, off for 12 hours) 09/01/19 No Stop Date Active melatonin 3 mg tablet RxNorm: 176579 Take 2 Tablet(s) Oral QHS every night at bedtime as needed (may repeat once) 09/01/19 No Stop Date Active Pen Needle 30 gauge x 5/16 RxNorm: Use as directed to administer insulin up to 3x daily 09/01/19 023 Inactive Januvia 100 mg tablet RxNorm: 528261 Take 1 Tablet(s) Oral QD 07/23/19 23 024 Active 2nd REQUEST FOR REFILLS 07-22-2022 NEED KIM PLEASE = THANK YOU duloxetine 60 mg capsule,delayed release RxNorm: 694940 Take 2 Capsule(s) Oral QD 07/23/19 23 024 Active 2nd REQUEST FOR REFILLS 07-22-2022 NEED KIM PLEASE = THANK YOU pantoprazole 40 mg tablet,delayed release RxNorm: 344940 TAKE 1 TABLET BY MOUTH EVERY MORNING BEFORE BREAKFAST 07/23/19 23 024 Active 2nd REQUEST FOR REFILLS 07-22-2022 NEED KIM PLEASE = THANK YOU magnesium oxide 400 mg (241.3 mg magnesium) tablet RxNorm: 276653 Take 1 Tablet(s) Oral BID 07/23/19 23 024 Active 2nd REQUEST FOR REFILLS 07-22-2022 NEED KIM PLEASE = THANK YOU acetaminophen 500 mg tablet RxNorm: 745089 Take 2 Tablet(s) Oral TID 07/23/19 23 024 Active 2nd REQUEST FOR REFILLS 07-22-2022 NEED KIM PLEASE = THANK YOU risperidone 2 mg tablet RxNorm: 365590 Take 1 Tablet(s) Oral BID 07/23/19 23 024 Active 2nd REQUEST FOR REFILLS 07-22-2022 NEED KIM PLEASE = THANK YOU hydrochlorothiazide 25 mg tablet RxNorm: 391848 Take 1 Tablet(s) Oral QD 07/23/19 23 024 Active 2nd REQUEST FOR REFILLS 07-22-2022 NEED KIM PLEASE = THANK YOU potassium chloride ER 10 mEq capsule,extended release RxNorm: 282140 TAKE 1 CAPSULE BY MOUTH TWICE DAILY WITH MEAL(S) 07/23/19 23 023 Inactive 2nd REQUEST FOR REFILLS 07-22-2022 NEED KIM PLEASE = THANK YOU buprenorphine HCl 2 mg sublingual tablet RxNorm: 469736 Take 1 Tablet(s) Sublingual TID 07/19/19 23 023 Inactive buprenorphine HCl 2 mg sublingual tablet RxNorm: 649751 Take 1 Tablet(s) Sublingual TID 07/19/19 23 023 Inactive oxycodone 5 mg tablet RxNorm: 0423450 Take 1 Tablet(s) Oral BID x7 days then decrease to 1 tab once daily x 7 days then d/c 07/09/19 23 023 Inactive latanoprost 0.005 % eye drops RxNorm: 609365 Take 1 Drop(s) Both eyes QHS every night at bedtime 07/07/19 024 Active buprenorphine 5 mcg/hour weekly transdermal patch RxNorm: 996104 Apply 1 Transdermal once every 7 days 07/06/19 23 023 Inactive zolpidem 5 mg tablet RxNorm: 779878 Take 1 Tablet(s) Oral QHS every night at bedtime 07/06/19 23 023 Inactive buprenorphine 5 mcg/hour weekly transdermal patch RxNorm: 746886 Apply 1 Transdermal once every 7 days 07/06/19 23 023 Inactive start after stops oxycodone. belbuca film not covered famotidine 20 mg tablet RxNorm: 175272 Give 1 Tablet(s) Oral QHS every night at bedtime 07/02/19 23 024 Active torsemide 20 mg tablet RxNorm: 886585 Take 1 Tablet(s) Oral QAM every morning 07/02/19 024 Active atorvastatin 10 mg tablet RxNorm: 511488 Take 1 Tablet(s) Oral QHS every night at bedtime 07/02/19 023 Inactive dorzolamide 22.3 mg-timolol 6.8 mg/mL eye drops RxNorm: 3623034 Apply 1 Drop(s) Both eyes BID 07/02/19 024 Active acetaminophen 500 mg tablet RxNorm: 507037 Take 2 Tablet(s) Oral TID 07/02/19 023 Inactive amlodipine 5 mg tablet RxNorm: 298607 Take 1 Tablet(s) Oral QD 07/02/19 023 Inactive nicotine 21 mg/24 hr daily transdermal patch RxNorm: 662124 Apply 1 Patch Transdermal QD Remove old patch prior to placing the new one 07/02/19 023 Inactive gabapentin 600 mg tablet RxNorm: 641297 Take 1 Tablet(s) Oral TID 07/02/19 023 Inactive risperidone 2 mg tablet RxNorm: 637212 Take 1 Tablet(s) Oral BID 07/02/19 023 Inactive pantoprazole 40 mg intravenous solution RxNorm: 070722 Take 1 Tablet(s) Intravenous QAM every morning 07/02/19 023 Inactive Januvia 100 mg tablet RxNorm: 304040 Take 1 Tablet(s) Oral QD 07/02/19 023 Inactive potassium chloride ER 10 mEq tablet,extended release RxNorm: 258537 Take 1 Tablet(s) Oral BID 07/02/19 023 Inactive Belbuca 75 mcg buccal film RxNorm: 3509246 Take 1/2 film (37.5mcg) (cut diagonally) BID (start AFTER stopping oxycodone) 07/02/19 023 Inactive start belbuca in 7 days AFTER patient stops oxycodone aspirin 81 mg tablet,delayed release RxNorm: 426625 Take 1 Tablet(s) Oral QD 07/02/19 023 Inactive latanoprost 0.005 % eye drops RxNorm: 717221 Take 1 Drop(s) Both eyes QHS every night at bedtime 07/02/19 023 Inactive Systane Ultra 0.4 %-0.3 % eye drops RxNorm: 309576 Apply 1 Drop(s) Both eyes QID 07/02/19 023 Inactive Lantus Solostar U-100 Insulin 100 unit/mL (3 mL) subcutaneous pen RxNorm: 111421 Take 40 Unit(s) Subcutaneous QHS every night at bedtime 07/02/19 023 Inactive oxybutynin chloride 5 mg tablet RxNorm: 756337 Administer 1 Tablet(s) Oral QHS every night at bedtime 07/02/19 023 Inactive Miralax 17 gram oral powder packet RxNorm: 110540 Take 1 Packet Oral QD 07/02/19 023 Inactive hydrochlorothiazide 25 mg tablet RxNorm: 012753 Take 1 Tablet(s) Oral QD 07/02/19 023 Inactive oxycodone 5 mg tablet RxNorm: 0296416 Take 1 Tablet(s) Oral TID then discontinue and start belbuca (d/c 10mg TID) 07/02/19 023 Inactive stop after 7 days duloxetine 60 mg capsule,delayed release RxNorm: 545619 Take 2 Capsule(s) Oral QD 07/02/19 023 Inactive Narcan 4 mg/actuation nasal spray RxNorm: 3067627 Give 1 [place] Nasal UD as directed 1 spray contents of ONE device into nostril, call 911. May repeat once with 2nd device 07/02/19 23 023 Inactive fluticasone propionate 50 mcg/actuation nasal spray,suspension RxNorm: 1566723 [place] 2 [place] Nasal QD - Daily both nostrils 07/02/19 23 023 Inactive magnesium oxide 400 mg (241.3 mg magnesium) tablet RxNorm: 029407 Give 1 Tablet(s) Oral BID 07/02/19 23 023 Inactive cholecalciferol (vitamin D3) 25 mcg (1,000 unit) tablet RxNorm: 285225 Take 1 Tablet(s) Oral QAM every morning 07/02/19 23 023 Inactive oxycodone 5 mg tablet RxNorm: 6076441 Take 2 Tablet(s) Oral TID PRN 06/04/19 023 Inactive azithromycin 250 mg tablet RxNorm: 048414 Take Tablet(s) Oral QD 2 Tablets PO QD x 1 Day - Then 1 Tablet PO QD x 4 Days 05/10/19 023 Inactive oxycodone 5 mg tablet RxNorm: 9676936 Take 2 Tablet(s) Oral TID /difficulty breathing 05/03/19 023 Inactive oxycodone 5 mg tablet RxNorm: 2981973 Take 2 Tablet(s) Oral TID /difficulty breathing 03/03/20 22 022 Inactive azithromycin 250 mg tablet RxNorm: 213668 Take Tablet(s) Oral QD 2 Tablets PO QD x 1 Day - Then 1 Tablet PO QD x 4 Days 05/10/19 023 Inactive zolpidem 5 mg tablet RxNorm: 627138 Take 1 Tablet(s) Oral QHS every night [...] CHNG SMOKING 3-[address]: 2 29912953 CPT-4: 71247 06/29/2022 Reason For Visit No Reason For Visit data Plan of Care Planned Activity Notes Codes Status Date Referral: [facility] WPtel: [id number] [place], [place] [id number] [place] Referral Records Received 07/18/2022 Instructions Comment Date Rena is a resident a [facility].?? Previously was seen by doctor in [place].?? First [facility] visit 03/10.?? Arthritis/pain complaints and anxiety are her biggest concerns.?? Johnnie just (in 2020). 2 sons - son Korey visits (From [place]).?? 10/27/2022
[2023-01-14 22:58] LABS: Appearance Urine Clear (Clear); Bilirubin Urine 1+ (Negative); Blood Urine Negative (Negative); Color Urine Yellow (Yellow); Glucose Urine Negative (Negative); Ketones Urine Trace (Negative); Leukocyte Esterase Urine Negative (Negative); Nitrite Urine Negative (Negative); Protein Urine Negative (Negative); Specific Gravity Urine 1.015 (1.000-1.030)
[2023-01-14 23:12] LABS: RBC Urine 0-2 (0-2); Squamous Epithelial Cell Urine Moderate (None-Few); WBC Urine 0-2 (0-5)
[2023-01-15 00:36] LABS: Albumin* 3.6 g/dL (3.3-5.0); Chloride* 102 mmol/L (96-114); Sodium* 141 mmol/L (135-149)
[2023-01-15 00:37] LABS: Potassium* 3.4 mmol/L (3.6-5.1)
[2023-01-15 00:39] LABS: Creatinine* 0.5 mg/dL (0.5-1.5); Estimated Glomerular Filt Rate 100 ml/min
[2023-01-15 00:40] LABS: Alanine Aminotransferase* 30 U/L (4-35); Alkaline Phosphatase* 113 U/L (40-150); Anion Gap 6 mEq/L (7-15); Aspartate Amino Transferase* 62 U/L (12-35); Basophils Absolute Auto 0.01 K/uL (0.00-0.30); Basophils Percent Auto 0.1 % (0.0-3.0); Bilirubin Direct* 0.2 mg/dL (0.0-0.5); Bilirubin Total* 0.6 mg/dL (0.1-1.5); Blood Urea Nitrogen* 10 mg/dL (7-30); Calcium* 9.2 mg/dL (8.4-10.6); Carbon Dioxide* 33 mmol/L (20-32); Eosinophils Absolute Auto 0.14 K/uL (0.00-0.50); Eosinophils Percent Auto 1.9 % (0.0-7.0); Glucose* 113 mg/dL (60-115); Hematocrit 37.7 % (33.0-51.0); Hemoglobin* 12.3 gm/dL (12.0-16.0); Immature Granulocytes Abs Auto 0.07 K/uL (0.00-0.30); Immature Granulocytes Pct Auto 0.9 %; Lymphocytes Absolute Auto 3.05 K/uL (0.90-2.90); Lymphocytes Percent Auto 40.3 % (20-44); Mean Corpuscular HGB Conc 33 gm/dL (32-36); Mean Corpuscular Hemoglobin 31 pg (26-34); Mean Corpuscular Volume 94 fL (80-100); Monocytes Percent Auto 8.5 % (0.0-11.0); Neutrophils Absolute Auto 3.65 K/uL (1.7-7.0); Neutrophils Percent Auto 48.3 % (42.0-72.0); Platelet Count* 296 K/uL (140-440); Red Blood Count 4.03 m/uL (4.00-5.20); Total Protein* 7.1 g/dL (6.0-8.3); White Blood Count* 7.56 K/uL (4.50-11.00)
[2023-01-15 00:41] LABS: Magnesium* 2.1 mg/dL (1.5-2.6)
[2023-01-15 00:42] LABS: Slide Review Reflex No
[2023-01-15 00:43] LABS: C Reactive Protein* < 0.5 mg/dL (0.5-1.0)
[2023-01-15 01:01] LABS: PCR FLU A Negative PCR FLU A (Negative); PCR FLU B Negative PCR FLU B (Negative); SARS PCR* Negative SARS-CoV-2 (Negative)
[2023-01-15 01:19] LABS: Amphetamine Screen Urine Negative (Negative); Barbiturate Screen Urine Negative (Negative); Benzodiazepines Screen Urine Negative (Negative); Cannabinoid Screen Urine Negative (Negative); Cocaine Screen Urine Negative (Negative); Methadone Screen Urine Negative (Negative); Methamphetamines Screen Urine Negative (Negative); Opiate Screen Urine Negative (Negative); Oxycodone Screen Urine Negative (Negative); Phencyclidine Screen Urine Negative (Negative); Tricyclic Antidepressant Urine Negative (Negative)
[2023-01-15 02:04] LABS: Trichomonas No Trichomonas Seen (None Seen); Yeast No Yeast Seen (None Seen)
[2023-01-15 02:05] LABS: Clue Cells No Clue Cells Seen (None Seen)
--- NOTE | 2023-01-15 03:07 | ED.NURSE ---
Moriah ROSARIO at [facility] called and given report on patient. Staff will be here to berry picker patient.
== END 2023-01-15 03:28 | disposition home or self-care (01) ==
PROVIDERS: Emergency Provider Family Medicine
DX: R53.81 Other malaise (principal)
CPT/HCPCS: 36415; 80048; 80076; 80306; 81001; 83735; 85025; 86140; 87210; 87631; 99283; 99284

== ENCOUNTER 2023-02-06 09:26 | Outpatient (CLI) | payer BC, SELFPAY ==
--- OUTSIDE RECORDS SUMMARY | 2023-02-07 10:32 | XMS_ITS | Patient Health Record ---
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 Name Role Phone Renée Cho Unavailable [phone] ALLERGIES No Known Allergies ENCOUNTERS from 1950 to 2023-02-07 Encounter Location Date Provider Diagnosis [address] [place] [address] July, Renée Cho [address] [place] [address] July, Renée Cho [facility] [address] [id number] Jun, Renée Marquis Osteoarthritis M19.9 0 SOCIAL HISTORY Sex Assigned At : Social History Observation Description Sex Assigned At Unknown REASON FOR REFERRAL No Information VITAL SIGNS from 1950 to 2023-02-07 Temperature 97.5 degrees Fahrenheit Jun, Oximetry 98 [...] regarding the other medications. Nurse from [facility] will address with her primary PLAN OF [...] Coverage End Date Subscriber Number Group Number [id number] DO NOT USE THIS [address] [facility] [address] Rena Fan Self - patient is the insured [id number] [facility] [address] [address] [facility] [address] Rena Fan Self - patient is the insured [id number] [employer] [address] [facility] [id number] [phone] Rena Fan Self - patient is the insured [id number]
== END 2023-02-06 09:27 | disposition home or self-care (01) ==
LOC: AMB 02-07 10:23
PROVIDERS: Visit Provider Emergency Medicine Emergency Medical Services
DX: R10.9 Unspecified abdominal pain (principal)
CPT/HCPCS: A0425; A0427

== ENCOUNTER 2023-02-06 09:48 | Emergency (ER) | payer BC, SELFPAY ==
[2023-02-06] VITALS (25 sets, daily range): BP systolic 127–179; BP diastolic 69–103; PULSE 77–90; RESP 18; TEMP 36.6; O2SAT 88–100; BMI 38.1
[2023-02-06 11:01] LABS: Appearance Urine Clear (Clear); Bilirubin Urine Negative (Negative); Blood Urine Negative (Negative); Color Urine Yellow (Yellow); Glucose Urine Negative (Negative); Ketones Urine Negative (Negative); Leukocyte Esterase Urine Negative (Negative); Nitrite Urine Negative (Negative); Protein Urine Negative (Negative); Specific Gravity Urine 1.015 (1.000-1.030); Urobilinogen Urine 0.2 (0.2-1.0); pH Urine 7.5 (5.0-8.5)
[2023-02-06 11:08] LABS: RBC Urine 0-2 (0-2); Squamous Epithelial Cell Urine Few (None-Few); WBC Urine 0-2 (0-5)
--- NOTE | 2023-02-06 11:08 | ED.GENADULT ---
HPI - General Adult General Chief complaint: Abdominal Pain Stated complaint: Ill Time Seen by Provider: 02/06/23 11:14 History of Present Illness HPI narrative: Patient comes from [facility] for complaint of severe left flank pain. Patient reports history of pancreatitis and feels that is what she has . No nausea or vomiting. FSG per EMS 169. 73-year-old woman presenting to the emergency department with concern for pancreatitis. Reports a history of pancreatitis. She is not nauseated. Takes chronic opioids on review of record. Unclear whether not she is constipated. Does not sound as though there has been new shortness of breath or cough or cold symptoms or fever. Does have some dyspepsia/GERD/heartburn or least treated with pantoprazole and liquid antacid/anti-gas, Tums. History of hypokalemia with potassium replacement. Torsemide on med list. Interview is of limited benefit with very limited responses if any to questioning. Related Data Home Medications Medication Instructions Recorded Confirmed aspirin 81 mg tablet,delayed 81 mg PO DAILY 10/19/21 02/06/23 release dorzolamide 22.3 mg-timolol 6.8 1 drp ophthalmic (eye) BID 10/19/21 02/06/23 mg/mL eye drops duloxetine 60 mg capsule,delayed 120 mg PO DAILY 10/19/21 02/06/23 release famotidine 20 mg tablet 20 mg PO HS 10/19/21 02/06/23 fluticasone propionate 50 2 spray intranasal DAILY 10/19/21 12/08/22 mcg/actuation nasal spray,suspension hydrochlorothiazide 25 mg tablet 25 mg PO DAILY 10/19/21 02/06/23 insulin aspart U-100 100 unit/mL 1 - 7 unit subcut BID@12,18 10/19/21 12/08/22 (3 mL) subcutaneous pen insulin glargine 100 unit/mL (3 20 unit subcut HS 10/19/21 12/08/22 mL) subcutaneous pen (Lantus Solostar U-100 Insulin) latanoprost 0.005 % eye drops 1 drp ophthalmic (eye) HS 10/19/21 12/08/22 pantoprazole 40 mg tablet,delayed 40 mg PO DAILY 10/19/21 02/06/23 release risperidone 2 mg tablet 2 mg PO BID 10/19/21 02/06/23 atorvastatin 10 mg tablet 10 mg PO HS 03/13/22 02/06/23 cholecalciferol (vitamin D3) 25 1,000 unit PO DAILY 03/13/22 02/06/23 mcg (1,000 unit) tablet epinephrine 0.3 mg/0.3 mL 0.3 mg IM PRN PRN 03/13/22 02/06/23 injection, auto-injector nicotine 21 mg/24 hr daily 1 patch topical DAILY 03/13/22 02/06/23 transdermal patch peg 400-propylene glycol 0.4 %-0.3 1 drp ophthalmic (eye) QID 03/13/22 02/06/23 % eye drops (Systane Ultra) polyethylene glycol 3350 17 17 g PO DAILY 03/13/22 10/04/22 gram/dose oral powder (Gavilax) sitagliptin phosphate 100 mg 100 mg PO DAILY 03/13/22 02/06/23 tablet (Januvia) aluminum-mag hydroxide-simethicone 5 - 10 ml PO ACHS PRN 12/08/22 12/08/22 400 mg-400 mg-40 mg/5 mL oral susp (Antacid Maximum Strength) amlodipine 10 mg tablet 10 mg PO DAILY 12/08/22 02/06/23 calcium carbonate 200 mg calcium 400 - 800 mg PO QID PRN 12/08/22 12/08/22 (500 mg) chewable tablet (Antacid (calcium carbonate)) ibuprofen 200 mg tablet (Advil) 200 - 400 mg PO Q4H PRN 12/08/22 12/08/22 lidocaine 4 % topical patch 1 patch topical DAILY PRN 12/08/22 12/08/22 (AsperFlex (lidocaine)) loperamide 2 mg capsule 2 - 4 mg PO Q1-2H PRN 12/08/22 12/08/22 loratadine 10 mg tablet 10 mg PO DAILY PRN 12/08/22 12/08/22 magnesium hydroxide 400 mg/5 mL 15 - 30 ml PO DAILY PRN 12/08/22 12/08/22 oral suspension (Milk of Magnesia) melatonin 3 mg tablet 6 mg PO HS 12/08/22 12/08/22 zolpidem 5 mg tablet 5 mg PO QPM PRN 02/06/23 02/06/23 Previous Rx's Medication Instructions Recorded acetaminophen 500 mg tablet 1,000 mg (2 x 500 mg) PO TID #180 03/16/22 tabs magnesium oxide 400 mg (241.3 mg 400 mg PO BID #60 tabs 03/16/22 magnesium) tablet torsemide 20 mg tablet 20 mg PO DAILY@0800 #30 tabs 03/16/22 potassium chloride 10 mEq 20 meq (2 x 10 mEq) PO BIDWM 30 12/10/22 capsule,extended release days #60 caps Allergies Allergy/AdvReac Type Severity Reaction Status Date / Time aspirin Allergy Unknown Verified 10/04/22 15:08 losartan Allergy Unknown Verified 10/04/22 15:08 tramadol Allergy Unknown Verified 10/04/22 15:08 varenicline Allergy Unknown Verified 10/04/22 15:08 bee venom protein (honey bee) Allergy Verified 10/04/22 15:08 ketorolac [From Toradol] Allergy Verified 10/04/22 15:08 NSAIDS (Non-Steroidal Allergy Verified 10/04/22 15:08 Anti-Inflamma Penicillins Allergy Verified 10/04/22 15:08 Review of Systems Status of ROS: Reports: unobtainable due to mental status (History of encephalopathy) [facility] Medical History Altered mental status ?R41.82 - Altered mental status, unspecified (ICD-10) Type 2 diabetes mellitus ?E11.9 - Type 2 diabetes mellitus without complications (ICD-10) Sleep apnea with hypersomnolence ?G47.10 - Hypersomnia, unspecified (ICD-10) ?G47.30 - Sleep apnea, unspecified (ICD-10) Hepatic steatosis ?K76.0 - Fatty (change of) liver, not elsewhere classified (ICD-10) Physical deconditioning ?R53.81 - Other malaise (ICD-10) Polypharmacy ?Z79.899 - Other exterminator termite (current) drug therapy (ICD-10) Chronic, continuous use of opioids ?F11.90 - Opioid use, unspecified, uncomplicated (ICD-10) Heart failure ?I50.9 - Heart failure, unspecified (ICD-10) Osteoarthritis ?M19.90 - Unspecified osteoarthritis, unspecified site (ICD-10) Degenerative disc disease, lumbar ?M51.36 - Other intervertebral disc degeneration, lumbar region (ICD-10) Anxiety, generalized ?F41.1 - Generalized anxiety disorder (ICD-10) Antisocial personality disorder ?F60.2 - Antisocial personality disorder (ICD-10) Back pain ?M54.9 - Dorsalgia, unspecified (ICD-10) Chronic pain syndrome ?G89.4 - Chronic pain syndrome (ICD-10) Nicotine dependence ?F17.200 - Nicotine dependence, unspecified, uncomplicated (ICD-10) Borderline personality disorder ?F60.3 - Borderline personality disorder (ICD-10) Asthma ?J45.909 - Unspecified asthma, uncomplicated (ICD-10) COPD (chronic obstructive pulmonary disease) ?J44.9 - Chronic obstructive pulmonary disease, unspecified (ICD-10) Diabetes mellitus type 2 in obese ?E11.69 - Type 2 diabetes mellitus with other specified complication (ICD-10) ?E66.9 - Obesity, unspecified (ICD-10) Hypertension, essential ?I10 - Essential (primary) hypertension (ICD-10) Obesity ?E66.9 - Obesity, unspecified (ICD-10) Surgical History History of total knee arthroplasty ?Z96.659 - Presence of unspecified artificial knee joint (ICD-10) History of cholecystectomy ?Z90.49 - Acquired absence of other specified parts of digestive tract (ICD-10) Family History Father Stomach cancer Brother Heart disease Social History Narrative: Patient is a resident of [facility]. She tells me she has been smoking 2 or 3 cigarettes per day. She is attempting to quit. She does not drink alcohol. Her healthcare power of rehabilitation nurse would be her son Korey Miles, code status is full. What is your current living situation?: I presently have a place to live Problems where you live: no known problems Problems where you live details: no known problems In the past 12 months, utilities in danger of being shut off: unable to answer In past 12 months, lack of transportation kept you from medical appts, meetings, work, or getting things needed for daily living: unable to answer In the past 12 mos, have been you worried that your food would run out before you had money to buy more?: unable to answer In the past 12 mos, the food you bought just didn't last and you didn't have money to buy more?: unable to answer Highest level of school completed/degree received: don't know Smoking Status: Current every day smoker What tobacco products do you use: cigarettes Smoking packs per day: 0.5 Smoking cigarettes per day: 10.0 Smoking quit date/years: <= 15 years ago Do you use any of these nicotine containing products: None Nicotine containing products detail: quit today Second hand tobacco smoke exposure: No How often do you have a drink containing alcohol: never How often do you have six or more drinks on one occasion: Never AUDIT-C Alcohol total score: 0 Non-prescribed substance use: denies use Caffeine: Yes How often does anyone, including family, friends and others, physically hurt you: unable to answer How often does anyone, including family, friends and others, insult or talk down to you: unable to answer How often does anyone, including family, friends and others, threaten you with harm: unable to answer How often does anyone, including family, friends and others, scream or curse at you: unable to answer service: No Exam Narrative: Exam Narrative: Blunted affect. Does not appear to be in distress. Has been sleeping by the time I am able to assess. Trace basilar crepitus in the lungs but otherwise good air movement. Heart in regular rate rhythm. Distant. Abdomen with normal bowel sounds. Tenderness in the epigastrium only. This palpation seems to aggravate Ms. Fan. With repeated query, she denies flank pain. Lower extremities are without edema. Well-perfused. No sensory deficits appreciated. Able to move all extremities without difficulty at least as demonstrated in the bed Const: Vital Signs, click to edit/add: Vital Signs - 24 hr 02/06/23 12:30 02/06/23 12:54 02/06/23 13:00 Pulse Rate 81 82 82 Blood Pressure 153/93 H Pulse Oximetry 96 95 98 Oxygen Delivery Me thod Oxygen Flow Rate 02/06/23 13:02 02/06/23 13:30 02/06/23 13:32 Pulse Rate 80 82 84 Blood Pressure 161/93 H 179/103 H Pulse Oximetry 96 90 91 Oxygen Delivery Me thod Oxygen Flow Rate 02/06/23 13:33 02/06/23 13:51 02/06/23 14:00 Pulse Rate 83 80 Blood Pressure Pulse Oximetry 88 91 95 Oxygen Delivery Me thod Nasal Cannula Nasal Cannula Nasal Cannula Oxygen Flow Rate 3 3 3 02/06/23 14:02 02/06/23 14:03 02/06/23 14:32 Pulse Rate 84 82 Blood Pressure 179/101 H 163/94 H Pulse Oximetry 95 97 Oxygen Delivery Me thod Nasal Cannula Oxygen Flow Rate 3 02/06/23 15:01 02/06/23 16:00 02/06/23 16:02 Pulse Rate 77 77 Blood Pressure 162/97 H 127/83 Pulse Oximetry 100 100 Oxygen Delivery Me thod Oxygen Flow Rate 02/06/23 16:30 02/06/23 16:32 02/06/23 16:33 Pulse Rate 80 80 80 Blood Pressure 129/69 Pulse Oximetry 96 96 96 Oxygen Delivery Me thod Oxygen Flow Rate 02/06/23 17:00 02/06/23 17:02 Pulse Rate 78 78 Blood Pressure 136/71 Pulse Oximetry 95 95 Oxygen Delivery Me thod Oxygen Flow Rate Documenting provider has reviewed patient's vital signs: yes Course Vital Signs Vital signs: Initial Vital Signs Temperature 98 F 02/06/23 10:01 Temperature Source Temporal Artery Scan 02/06/23 10:01 Pulse Rate 87 02/06/23 10:01 Respiratory Rate 18 02/06/23 10:01 Blood Pressure 132/90 H 02/06/23 10:01 Blood Pressure Mean 104 02/06/23 10:01 Pulse Oximetry 99 02/06/23 10:01 Oxygen Delivery Method Room Air 02/06/23 10:01 Vital Signs Temperature 98 F 02/06/23 10:01 Pulse Rate 87 02/06/23 10:01 Respiratory Rate 18 02/06/23 10:01 Blood Pressure 132/90 H 02/06/23 10:01 Pulse Oximetry 99 02/06/23 10:01 Oxygen Delivery Method Room Air 02/06/23 10:01 Temperature 98 F 02/06/23 10:01 Pulse Rate 78 02/06/23 17:02 Respiratory Rate 18 02/06/23 10:01 Blood Pressure 136/71 02/06/23 17:02 Pulse Oximetry 95 02/06/23 17:02 Oxygen Delivery Method Nasal Cannula 02/06/23 14:02 Oxygen Flow Rate 3 02/06/23 14:02 Medications Administered Medications: Discontinued Medications Generic Name Dose Route Start Last Admin Trade Name Nalini PRN Reason Stop Dose Admin Sodium Chloride 1,000 mls @ 1,000 mls/hr 02/06/23 11:18 02/06/23 13:44 0.9 % Sodium Chloride 1000 Ml IV 02/06/23 12:17 Infused .Q1H ONE Infusion Potassium Chloride 10 meq in 100 mls @ 100 mls/hr 02/06/23 12:13 02/06/23 13:44 Potassium Chloride IVPB 02/06/23 13:12 Infused ONCE ONE Infusion Lidocaine HCl 7.5 ml 02/06/23 12:12 02/06/23 12:44 Lidocaine Hcl 4 % Top Soln 50 Ml Bottle PO 02/06/23 12:13 7.5 ml ONCE ONE Administration Lidocaine/Aluminum/Magnesium/Simeth 30 ml 02/06/23 12:12 02/06/23 12:44 Mag Hydrox/Aluminum Hyd/Simeth 30 Ml Oral.Susp PO 02/06/23 12:13 30 ml ONCE ONE Administration Morphine Sulfate 4 mg 02/06/23 11:45 02/06/23 12:06 Morphine 4 Mg/Ml Inj IVP 02/06/23 11:46 4 mg ONCE ONE Administration Medical Decision Making MDM Narrative Medical decision making narrative: Will need to begin investigation with labs and possible imaging. Differential includes low lying pneumonia, pneumo mediastinum or pneumothorax, constipation or bowel gas, indigestion/heartburn, exacerbation of chronic pain, ischemic cardiovascular event, vascular disruption. With normal labs other than low potassium tried a GI cocktail. Unclear whether not this was useful though on reexamination is tender in the epigastrium still. D-dimer pending assessing for any vascular disruption that might be present. Meanwhile abdominal x-ray looking for evidence of constipation in light of opiate use. Potassium is 2.9. Replace potassium with IV and oral. Tolerated oral intake. She is requesting pain medicine. Discussed options for pain management. Reviewing allergies settled on opiates which she already takes. Following 4 mg of IV morphine did require some nasal cannula oxygen support with oxygen saturations into the low 80s. Abdominal x-ray by my read shows right-sided and upper right moderate stool collection. Unremarkable gas pattern Examination still with epigastric pain to palpation. D-dimer collection was reportedly contaminated. Redo still returns extremely elevated. This in the setting of epigastric pain I do have concerns regarding vascular anomaly/disruption. Will scan with contrast chest abdomen pelvis. Blood pressures have remained elevated. Pulmonary embolus is still in differential. Pressures have softened but stable. CT angio of chest abdomen pelvis was without evidence of dissection. Radiology over-read as below. Lungs and pleura: Scattered atelectasis. Left greater than right basilar interstitial consolidation. No pleural effusions. No pneumothorax. Chest wall and axilla: No mass or adenopathy. Bones: Degenerative changes. ABDOMEN AND PELVIS: Liver: Unremarkable. Gallbladder and bile ducts: Cholecystectomy. Pancreas: Unremarkable. Spleen: Unremarkable. Adrenal glands: Unremarkable. Kidneys: Unremarkable. GI tract: Colonic diverticulosis. No bowel obstruction. Vascular structures: Mild aortoiliac arterial calcifications. Abdominal aorta is normal in caliber without evidence of dissection. Mesenteric arteries are patent. Lymph nodes: Unremarkable. Miscellaneous: Unremarkable. No free air or significant free fluid. Pelvic Organs: Hysterectomy. Bones: Degenerative changes. L1 vertebral augmentation. IMPRESSION: No acute intrathoracic or intra-abdominal/pelvic abnormality including aortic dissection as questioned. Left greater than right basilar interstitial consolidation possibly chronic interstitial lung disease, although superimposed pneumonia should be clinically excluded. Have not fully excluded pulmonary embolus, as above. However subsequently off oxygen and with mobilization oxygen saturations in the mid upper 90s while she is alert. Does not appear to be in any respiratory distress. This interstitial changes mentioned might be somewhat related along with sleep apnea. I think less likely pneumonia with normal white count no preceding cough or cold symptoms. Appears well otherwise for discharge See patient discharge plan. Lab Data Lab results reviewed: Yes I reviewed the patient's lab results Labs: Lab Results 02/06/23 02/06/23 02/06/23 Range/Units 10:52 11:10 13:37 WBC 9.46 (4.50-11.00) K/uL RBC 4.44 (4.00-5.20) m/uL Hgb 13.4 (12.0-16.0) gm/dL Hct 39.9 (33.0-51.0) % MCV 90 (80-100) fL MCH 30 (26-34) pg MCHC 34 (32-36) gm/dL RDW Coeff of Rosa 11.5 (11.5-15.5) % Plt Count 290 (140-440) K/uL Neut % (Auto) 57.7 (42.0-72.0) % Lymph % (Auto) 28.9 (20-44) % [place] % (Auto) 9.8 (0.0-11.0) % Eos % (Auto) 3.2 (0.0-7.0) % Baso % (Auto) 0.2 (0.0-3.0) % Neut # (Auto) 5.46 (1.7-7.0) K/uL Lymph # (Auto) 2.73 (0.90-2.90) K/uL [place] # (Auto) 0.90 (0.00-0.90) K/UL Eos # (Auto) 0.30 (0.00-0.50) K/uL Baso # (Auto) 0.02 (0.00-0.30) K/uL Abs Immat Gran (auto) 0.02 (0.00-0.30) K/uL Imm/Tot Granulo (auto) 0.2 % D-Dimer Quant (PE/DVT) > 20.00 H (0.00-0.50) ug/ml Sodium 138 (135-149) mmol/L Potassium 2.9 L* (3.6-5.1) mmol/L Chloride 93 L (96-114) mmol/L Carbon Dioxide 34 H (20-32) mmol/L Anion Gap 11 (7-15) mEq/L BUN 16 (7-30) mg/dL Creatinine 0.7 (0.5-1.5) mg/dL Estimated Creat Clear 46.43 Estimated GFR 92 ml/min Glucose 126 H (60-115) mg/dL Lactate 2.1 H (0.5-1.9) mmol/L Calcium 9.6 (8.4-10.6) mg/dL Magnesium 2.1 (1.5-2.6) mg/dL Total Bilirubin 1.4 (0.1-1.5) mg/dL Direct Bilirubin 0.5 (0.0-0.5) mg/dL AST 63 H (12-35) U/L ALT 32 (4-35) U/L Alkaline Phosphatase 111 (40-150) U/L Troponin I < 0.01 L (0.01-0.04) ng/mL C-Reactive Protein 0.8 (0.5-1.0) mg/dL Total Protein 8.3 (6.0-8.3) g/dL Albumin 4.5 (3.3-5.0) g/dL Lipase 154 (23-300) U/L Urine Color Yellow (Yellow) Urine Appearance Clear (Clear) Urine pH 7.5 (5.0-8.5) Ur Specific [place] 1.015 (1.000-1.030) Urine Protein Negative (Negative) Urine Glucose (UA) Negative (Negative) Urine Ketones Negative (Negative) Urine Blood Negative (Negative) Urine Nitrite Negative (Negative) Urine Bilirubin Negative (Negative) Urine Urobilinogen 0.2 (0.2-1.0) Ur Leukocyte Esterase Negative (Negative) Urine RBC 0-2 (0-2) Urine WBC 0-2 (0-5) Ur Squamous Epith Cells Few (None-Few) Urine Bacteria None (None) Ethyl Alcohol < 0.01 L (0.01-0.03) % Lab Acknowledgement Test Added ECG Data Attestation: I personally reviewed and interpreted this ECG as follows: (Normal sinus rhythm. Seems lower amplitude particularly the T-waves. Rate of 81) Discharge Plan Discharge Clinical Impression: Abdominal pain, Constipation, Hypokalemia, Elevated d-dimer Patient Disposition: Home w/ Parent or Adult Condition: Stable Additional Instructions: I wonder if some of your abdominal pain might be related to constipation. Possibly indigestion. You do have Maalox and pantoprazole for this. If having hard stools would place suppository overnight and repeat next night if no good result. Alternative to the suppository would be placement of an enema like Fleet and repeating that in a couple of hours if no good result. Could also drink a a half bottle or a whole bottle of magnesium citrate and repeating that next day if no good result. Generally though would treat with MiraLax equivalent dosing 2-3 times daily over the course of 1-2 weeks and adjusting to stool consistency. Be sure to stay well-hydrated. Return for marked increase in pain, fever, repeated vomiting. Please double your potassium to 40 mEq daily (this can be dosed at 20 mEq in the morning and 20 mEq in the evening) and recheck your potassium level in 1 week. Follow up with primary care recommendations. Prescriptions: No Action aspirin 81 mg tablet,delayed release (DR/EC) 81 mg PO DAILY latanoprost 0.005 % drops 1 drp OPHTHALMIC (EYE) HS Rx Instructions: BOTH EYES risperidone 2 mg tablet 2 mg PO BID famotidine 20 mg tablet 20 mg PO HS pantoprazole 40 mg tablet,delayed release (DR/EC) 40 mg PO DAILY dorzolamide-timolol 22.3-6.8 mg/mL drops 1 drp OPHTHALMIC (EYE) BID Rx Instructions: BOTH EYES hydrochlorothiazide 25 mg tablet 25 mg PO DAILY fluticasone propionate 50 mcg/actuation spray,suspension 2 spray INTRANASAL DAILY insulin aspart U-100 100 unit/mL (3 mL) insulin pen 1 - 7 unit SUBCUT BID@12,18 Rx Instructions: 0-7 UNITS PER SLIDING SCALE duloxetine 60 mg capsule,delayed release(DR/EC) 120 mg PO DAILY insulin glargine [Lantus Solostar U-100 Insulin] 100 unit/mL (3 mL) insulin pen 20 unit SUBCUT HS atorvastatin 10 mg tablet 10 mg PO HS cholecalciferol (vitamin D3) 25 mcg (1,000 unit) tablet 1,000 unit PO DAILY nicotine 21 mg/24 hr patch 24 hour 1 patch topical DAILY Systane Ultra 0.4-0.3 % drops 1 drp ophthalmic (eye) QID Rx Instructions: BOTH EYES polyethylene glycol 3350 [Gavilax] 17 gram/dose powder 17 g PO DAILY Januvia 100 mg tablet 100 mg PO DAILY epinephrine 0.3 mg/0.3 mL auto-injector 0.3 mg IM PRN PRN Rx Instructions: do not exceed 3 doses per episode magnesium oxide 400 mg (241.3 mg magnesium) Tablet 400 mg PO BID Qty: 60 0RF torsemide 20 mg Tablet 20 mg PO DAILY@0800 Qty: 30 0RF acetaminophen 500 mg tablet 1,000 mg PO TID Qty: 180 0RF amlodipine 10 mg tablet 10 mg PO DAILY melatonin 3 mg tablet 6 mg PO HS magnesium hydroxide [Milk of Magnesia] 400 mg/5 mL suspension 15 - 30 ml PO DAILY PRN loratadine 10 mg tablet 10 mg PO DAILY PRN loperamide 2 mg capsule 2 - 4 mg PO Q1-2H PRN Rx Instructions: 4 MG AFTER FIRST LOOSE FLORY, THEN 2 MG PRN; do not exceed 16 mg per 24 hrs alum-mag hydroxide-simeth [Antacid Maximum Strength] 400-400-40 mg/5 mL suspension 5 - 10 ml PO ACHS PRN calcium carbonate [Antacid (calcium carbonate)] 200 mg calcium (500 mg) tablet,chewable 400 - 800 mg PO QID PRN ibuprofen [Advil] 200 mg tablet 200 - 400 mg PO Q4H PRN lidocaine [AsperFlex (lidocaine)] 4 % adhesive patch,medicated 1 patch topical DAILY PRN Rx Instructions: may leave on for up to 12 hrs potassium chloride 10 mEq Capsule, Extended Release 20 meq PO BIDWM 30 Days Qty: 60 1RF zolpidem 5 mg tablet 5 mg PO QPM PRN Follow Up/Referrals: Provider,Not a Local [Primary Care Provider] - Stand Alone Forms: MyHealth Info Instructions
[2023-02-06] MEDS: 0.9 % SODIUM CHLORIDE 1000 ml 1,000 ML IV (11:28)
[2023-02-06 11:29] LABS: Lactate* 2.1 mmol/L (0.5-1.9)
[2023-02-06 11:38] LABS: Basophils Absolute Auto 0.02 K/uL (0.00-0.30); Basophils Percent Auto 0.2 % (0.0-3.0); Eosinophils Percent Auto 3.2 % (0.0-7.0); Hematocrit 39.9 % (33.0-51.0); Hemoglobin* 13.4 gm/dL (12.0-16.0); Immature Granulocytes Abs Auto 0.02 K/uL (0.00-0.30); Immature Granulocytes Pct Auto 0.2 %; Lymphocytes Absolute Auto 2.73 K/uL (0.90-2.90); Lymphocytes Percent Auto 28.9 % (20-44); Mean Corpuscular HGB Conc 34 gm/dL (32-36); Mean Corpuscular Hemoglobin 30 pg (26-34); Mean Corpuscular Volume 90 fL (80-100); Monocytes Percent Auto 9.8 % (0.0-11.0); Neutrophils Absolute Auto 5.46 K/uL (1.7-7.0); Neutrophils Percent Auto 57.7 % (42.0-72.0); RDW Coefficient of Variation % 11.5 % (11.5-15.5); Red Blood Count 4.44 m/uL (4.00-5.20); White Blood Count* 9.46 K/uL (4.50-11.00)
[2023-02-06 11:49] LABS: Albumin* 4.5 g/dL (3.3-5.0); Chloride* 93 mmol/L (96-114)
[2023-02-06 11:50] LABS: Sodium* 138 mmol/L (135-149)
[2023-02-06 11:52] LABS: Alkaline Phosphatase* 111 U/L (40-150); Anion Gap 11 mEq/L (7-15); Aspartate Amino Transferase* 63 U/L (12-35); Bilirubin Direct* 0.5 mg/dL (0.0-0.5); Bilirubin Total* 1.4 mg/dL (0.1-1.5); Carbon Dioxide* 34 mmol/L (20-32); Creatinine* 0.7 mg/dL (0.5-1.5); Est. Creatinine Clearance* 46.43; Estimated Glomerular Filt Rate 92 ml/min; Total Protein* 8.3 g/dL (6.0-8.3)
[2023-02-06 11:53] LABS: Alanine Aminotransferase* 32 U/L (4-35); Blood Urea Nitrogen* 16 mg/dL (7-30); Calcium* 9.6 mg/dL (8.4-10.6); Glucose* 126 mg/dL (60-115); Lipase* 154 U/L (23-300); Magnesium* 2.1 mg/dL (1.5-2.6)
[2023-02-06 11:55] LABS: C Reactive Protein* 0.8 mg/dL (0.5-1.0)
[2023-02-06] MEDS: MORPHINE 4 MG/ML INJ IVP (12:06)
[2023-02-06 12:07] LABS: Platelet Count* 290 K/uL (140-440); Slide Review Reflex No
[2023-02-06 12:10] LABS: Ethanol* < 0.01 % (0.01-0.03); Potassium* 2.9 mmol/L (3.6-5.1); Troponin I* < 0.01 ng/mL (0.01-0.04)
[2023-02-06] MEDS: POTASSIUM CHLORIDE 10 MEQ/100 ML PIGGYBACK 100 MEQ IVPB (12:44)
[2023-02-06] MEDS: lidocaine HCL 4 % TOP SOLN 50 ML BOTTLE 7.5 ML PO (12:44)
[2023-02-06] MEDS: MAG HYDROX/ALUMINUM HYD/SIMETH 30 ML ORAL.SUSP PO (12:44)
--- NOTE | 2023-02-06 13:52 | ED.NURSE ---
Patient very drowsy after morphine administration. Saturations dropped to 84%. Patient started on 3L via NC to bring oxygen sats to 91%. Dr. Gabriel notified.
--- NOTE | 2023-02-06 14:59 | CRLHL7_ITS ---
For Patients: As a result of the Century Cures Act, medical imaging exams and procedure reports are released immediately into your electronic medical record. You may view this report before your referring provider. If you have questions, please contact your health care provider. Indication: Constipation. Technique: Abdomen radiographs, 2 view. Comparison: CT abdomen pelvis 12/08/2022. Findings/Impression: Bowel: Bowel pattern is normal. Mild colonic stool burden, particularly within the sigmoid and ascending colon. Soft tissues: No sign of free air. No sign of soft tissue mass. No suspicious calcifications. Right upper quadrant surgical clips Bones: There is suggestion of kyphoplasty/vertebroplasty material within the L1 vertebral body. Unremarkable for age. Degenerative changes. Dictated by Mert Shultz MD @ 02/06/2023 4:08:33 PM (Electronically Signed)
[2023-02-06 15:45] LABS: D Dimer Quantitative* > 20.00 ug/ml (0.00-0.50)
--- NOTE | 2023-02-06 15:54 | CRLHL7_ITS ---
For Patients: As a result of the Century Cures Act, medical imaging exams and procedure reports are released immediately into your electronic medical record. You may view this report before your referring provider. If you have questions, please contact your health care provider. INDICATION: Epigastric pain. High D-dimer. TECHNIQUE: CT chest without contrast and CT chest, abdomen and pelvis acquired with 95 cc Isovue 370 IV contrast, dissection protocol. COMPARISON: December 08, 2022. FINDINGS: CHEST: Cardiovascular structures: The unenhanced images demonstrate no evidence of aortic intramural thrombus. Thoracic aorta is normal in caliber without evidence of dissection. Heart size is normal. No central pulmonary embolism. Mediastinum and carmen: No mass or adenopathy. Lungs and pleura: Scattered atelectasis. Left greater than right basilar interstitial consolidation. No pleural effusions. No pneumothorax. Chest wall and axilla: No mass or adenopathy. Bones: Degenerative changes. ABDOMEN AND PELVIS: Liver: Unremarkable. Gallbladder and bile ducts: Cholecystectomy. Pancreas: Unremarkable. Spleen: Unremarkable. Adrenal glands: Unremarkable. Kidneys: Unremarkable. GI tract: Colonic diverticulosis. No bowel obstruction. Vascular structures: Mild aortoiliac arterial calcifications. Abdominal aorta is normal in caliber without evidence of dissection. Mesenteric arteries are patent. Lymph nodes: Unremarkable. Miscellaneous: Unremarkable. No free air or significant free fluid. Pelvic Organs: Hysterectomy. Bones: Degenerative changes. L1 vertebral augmentation. IMPRESSION: No acute intrathoracic or intra-abdominal/pelvic abnormality including aortic dissection as questioned. Left greater than right basilar interstitial consolidation possibly chronic interstitial lung disease, although superimposed pneumonia should be clinically excluded. Please note that all CT scans at this facility use dose modulation, iterative reconstruction, and/or weight-based dosing when appropriate to reduce radiation dose to as low as reasonably achievable. Dictated by Twin Mina MD @ 02/06/2023 6:51:34 PM (Electronically Signed)
== END 2023-02-06 20:22 | disposition home or self-care (01) ==
PROVIDERS: Emergency Provider Family Medicine
DX: R10.9 Unspecified abdominal pain (principal); K59.00 Constipation, unspecified; E87.6 Hypokalemia
CPT/HCPCS: 36415; 74018; 74174; 80048; 80076; 81003; 81015; 82077; 83605; 83690; 83735; 84484; 85025; 85379; 86140; 87086; 93005; 96365; 96375; 99284; 99285; A9270; J2270; J3480; J7030; Q9967

== ENCOUNTER 2023-04-13 12:50 | Outpatient (CLI) | payer BC, SELFPAY ==
--- OUTSIDE RECORDS SUMMARY | 2023-04-14 18:09 | XMS_ITS | Clinical Summary ---
Author Name Unknown Organization [facility] Address [place], [place] [address] Care Team Providers Care Mainframe Architect Name Role Phone Sebastian Griffiths MD Primary Care Provider Unavailab [facility] [address], [place] Unavailable Allergies Active Allergy Reactions Criticality [...] right shoulder injury, left knee inury, cervical P[employer]M [employer]ER reviewed 05/14/2019 Alcohol abuse 10/16/2015 07/22/2022 Arteriosclerosis [...] No Known Problems Son 2 Dania alonzo [place] Relation Name Status Comments Brother 1 Alive [...] Documents on File Type Date Recorded 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
== END 2023-04-13 12:51 | disposition home or self-care (01) ==
LOC: AMB 04-14 18:02
PROVIDERS: Visit Provider Family Medicine
DX: R10.9 Unspecified abdominal pain (principal); R11.2 Nausea with vomiting, unspecified
CPT/HCPCS: A0425; A0427

== ENCOUNTER 2023-04-13 13:19 | Emergency (ER) | payer BC, SELFPAY ==
[2023-04-13 13:23] VITALS: BP 128/92; PULSE 100; RESP 16; TEMP 36.6; O2SAT 94; BMI 34.1
[2023-04-13 14:22] LABS: PCR FLU A Negative PCR FLU A (Negative); PCR FLU B Negative PCR FLU B (Negative); PCR RSV Negative PCR RSV (Negative); SARS PCR* Negative SARS-CoV-2 (Negative)
--- OUTSIDE RECORDS SUMMARY | 2023-04-13 14:23 | XMS_ITS | CCD ---
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 Name Role Phone Miguel A Pop NP Primary Care Provider Unavaila ble Unavailable Chronic Care Management Unavaila ble Summary Purpose DataExchange Insurance Providers Payer name Policy type / Coverage type Covered alliance party ID Effective Begin Date Effective End Date [place] Blue [place] Medicaid Blue Cross/Blue Shield [id number] 2022 Unknown Medicaid [place] Blue Cross/Blue Shield [id number] 2022 Unknown Family history Mother Diagnosis Age At Onset Glaucoma Unknown Brother Diagnosis Age At Onset Visual disturbance/blindness Unknown Glaucoma Unknown Father Diagnosis Age At Onset Stomach cancer Unknown Social History Social History Element Codes Description Effec tive Dates Tobacco history SNOMED CT: 77833196 Current every day smoker 07/01/[address]: 759882869 No Alcohol Consum ption 07/01/2022 Allergies, Adverse Reactions, Alerts Substance Reaction Codes Entered Date Inactivated Date Status Bee Sting Unknown 03/03/2022 No Inactive Date Ac tive NSAIDS Unknown 03/03/2022 No Inactive Date Ac tive PENICILLINS Unknown 03/03/2022 No Inactive Date Active losartan RxNorm: 365657 03/03/2022 No Inactive Da te Active aspirin Unknown 03/03/2022 No Inactive Date Ac tive tramadol RxNorm: 47080 03/03/2022 No Inactive Marek e Active Other: Unknown 03/03/2022 No Inactive Date Ac tive VARENICLINE Unknown 03/03/2022 No Inactive Date Active Problems Condition Codes Effective Dates Condition St atus Chronic pain ICD-10: G89.29 ICD-9: 338.29 03/01/2023 Active Insomnia ICD-10: G47.00 ICD-9: 780.52 03/01/2023 Active Hypertension ICD-10: I10 ICD-9: 401.9 10/26/2022 Active 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, with long-term current use of insulin ICD-10: E11.59 ICD-9: 250.70 10/26/2022 Active Injury due to fall, subseque nt encounter ICD-10: W19.XXXD ICD-9: V58.89 09/28/2022 Active Stomach pain ICD-10: R10.9 ICD-9: 536.8 07/06/2022 Active Community acquired pneumonia ICD-10: J18 .9 ICD-9: 486 06/29/2022 Active Preventative health care ICD-10: Z00.00 [...] Headache ICD-10: R51.9 ICD-9: 784.0 03/03/2022 Active [facility] (current) use of insulin ICD-10: Z79.4 03/03 Active Medications Medication Codes Instructions Start Date Stop Date Status Fill Instructions melatonin 3 mg tablet RxNorm: 664156 Take 1 Tablet(s) Oral QHS every night at bedtime 02/29/20 23 024 Active 02/28/2023 PROACTIVE REFILL REQUEST FOR NEXT CYCLE PLEASE THANK YOU potassium chloride ER 20 mEq tablet,extended release(part/cryst) RxNorm: 8471441 Take 2 Tablet(s) Oral QD 02/29/20 23 024 Active 02/28/2023 PROACTIVE REFILL REQUEST FOR NEXT CYCLE PLEASE THANK YOU atorvastatin 10 mg tablet RxNorm: 463510 Take 1 Tablet(s) Oral QD 01/06/20 23 024 Active 01/05/2023 PROACTIVE REFILL REQUEST FOR NEXT CYCLE PLEASE THANK YOU fluticasone propionate 50 mcg/actuation nasal spray,suspension RxNorm: 8102277 Live [place] 2 Live Oak Nasal QD - Daily both nostrils 12/20/19 No Stop Date Active nicotine 21 mg/24 hr daily transdermal patch RxNorm: Apply 1 Transdermal QD 12/02/19 023 Inactive nicotine 21 mg/24 hr daily transdermal patch RxNorm: Apply 1 Transdermal QD 11/29/19 23 023 Inactive loratadine 10 mg tablet RxNorm: 756335 Take 1 Tablet(s) Oral QD as needed 11/23/19 23 024 Active loratadine 10 mg tablet RxNorm: 910244 Take 1 Tablet(s) Oral QD as needed 11/23/19 23 023 Inactive nicotine 21 mg/24 hr daily transdermal patch RxNorm: Apply 1 Transdermal QD 11/16/19 23 023 Inactive aspirin 81 mg tablet,delayed release RxNorm: 150974 Take 1 Tablet(s) Oral QD 11/15/19 23 024 Active 2ND REQUEST 11/11/2022 NEED KIM PLEASE THANK YOU nicotine 21 mg/24 hr daily transdermal patch RxNorm: Apply 1 Transdermal QD 11/02/19 23 023 Inactive amlodipine 10 mg tablet RxNorm: 636816 Take 1 Tablet(s) Oral QD 10/20/19 23 024 Active nicotine 21 mg/24 hr daily transdermal patch RxNorm: APPLY 1 PATCH ONCE DAILY 10/18/19 23 023 Inactive Pen Needle 30 gauge x 5/16 RxNorm: Use 1 Unit(s) TID Use as directed to administer insulin up to 3x daily 10/12/19 23 023 Inactive cholecalciferol (vitamin D3) 25 mcg (1,000 unit) tablet RxNorm: 599768 TAKE 1 TABLET BY MOUTH DAILY (1,000 UNITS) 09/14/19 23 024 Active 09/13/2022 PROACTIVE REFILL REQUEST FOR NEXT CYCLE PLEASE THANK YOU Systane Ultra 0.4 %-0.3 % eye drops RxNorm: 331726 Instill 1 Drop(s) Both eyes QID 09/06/19 No Stop Date Active Lantus Solostar U-100 Insulin 100 unit/mL (3 mL) subcutaneous pen RxNorm: 492519 Inject 20 Unit(s) Subcutaneous QHS every night at bedtime 09/01/19 No Stop Date Active diclofenac 1 % topical gel RxNorm: 099299 Apply 4 Gram(s) Topical QID (bilateral knees or area of pain per patient's request) 09/01/19 No Stop Date Active acetaminophen 325 mg tablet RxNorm: 944658 Take 1 Tablet(s) Oral Q4H every four hours as needed 09/01/19 No Stop Date Active Humalog KwikPen (U-100) Insulin 100 unit/mL subcutaneous RxNorm: 7829983 Unit(s) Subcutaneous Inject per sliding scale BID before lunch and dinner 09/01/19 No Stop Date Active Aspercreme (lidocaine) 4 % topical patch RxNorm: 4300934 Apply 1 Patch Topical QD (on for 12 hours, off for 12 hours) 09/01/19 No Stop Date Active Pen Needle 30 gauge x 5/16 RxNorm: Use as directed to administer insulin up to 3x daily 09/01/19 23 023 Inactive melatonin 3 mg tablet RxNorm: 807469 Take 2 Tablet(s) Oral QHS every night at bedtime as needed (may repeat once) 09/01/19 23 023 Inactive Januvia 100 mg tablet RxNorm: 060684 Take 1 Tablet(s) Oral QD 07/23/19 23 024 Active 2nd REQUEST FOR REFILLS 07-22-2022 NEED KIM PLEASE = THANK YOU duloxetine 60 mg capsule,delayed release RxNorm: 030604 Take 2 Capsule(s) Oral QD 07/23/19 23 024 Active 2nd REQUEST FOR REFILLS 07-22-2022 NEED KIM PLEASE = THANK YOU pantoprazole 40 mg tablet,delayed release RxNorm: 010166 TAKE 1 TABLET BY MOUTH EVERY MORNING BEFORE BREAKFAST 07/23/19 23 024 Active 2nd REQUEST FOR REFILLS 07-22-2022 NEED KIM PLEASE = THANK YOU magnesium oxide 400 mg (241.3 mg magnesium) tablet RxNorm: 196381 Take 1 Tablet(s) Oral BID 07/23/19 23 024 Active 2nd REQUEST FOR REFILLS 07-22-2022 NEED KIM PLEASE = THANK YOU acetaminophen 500 mg tablet RxNorm: 958878 Take 2 Tablet(s) Oral TID 07/23/19 23 024 Active 2nd REQUEST FOR REFILLS 07-22-2022 NEED KIM PLEASE = THANK YOU risperidone 2 mg tablet RxNorm: 912803 Take 1 Tablet(s) Oral BID 07/23/19 23 024 Active 2nd REQUEST FOR REFILLS 07-22-2022 NEED KIM PLEASE = THANK YOU hydrochlorothiazide 25 mg tablet RxNorm: 255177 Take 1 Tablet(s) Oral QD 07/23/19 23 024 Active 2nd REQUEST FOR REFILLS 07-22-2022 NEED KIM PLEASE = THANK YOU potassium chloride ER 10 mEq capsule,extended release RxNorm: 341127 TAKE 1 CAPSULE BY MOUTH TWICE DAILY WITH MEAL(S) 07/23/19 23 023 Inactive 2nd REQUEST FOR REFILLS 07-22-2022 NEED KIM PLEASE = THANK YOU buprenorphine HCl 2 mg sublingual tablet RxNorm: 030938 Take 1 Tablet(s) Sublingual TID 07/19/19 23 023 Inactive buprenorphine HCl 2 mg sublingual tablet RxNorm: 600133 Take 1 Tablet(s) Sublingual TID 07/19/19 23 023 Inactive oxycodone 5 mg tablet RxNorm: 0603594 Take 1 Tablet(s) Oral BID x7 days then decrease to 1 tab once daily x 7 days then d/c 07/09/19 23 023 Inactive latanoprost 0.005 % eye drops RxNorm: 716923 Take 1 Drop(s) Both eyes QHS every night at bedtime 07/07/19 23 024 Active buprenorphine 5 mcg/hour weekly transdermal patch RxNorm: 422965 Apply 1 Transdermal once every 7 days 07/06/19 23 023 Inactive zolpidem 5 mg tablet RxNorm: 209457 Take 1 Tablet(s) Oral QHS every night at bedtime 07/06/19 23 023 Inactive buprenorphine 5 mcg/hour weekly transdermal patch RxNorm: 703507 Apply 1 Transdermal once every 7 days 07/06/19 023 Inactive start after stops oxycodone. belbuca film not covered famotidine 20 mg tablet RxNorm: 990057 Give 1 Tablet(s) Oral QHS every night at bedtime 07/02/19 23 024 Active torsemide 20 mg tablet RxNorm: 919118 Take 1 Tablet(s) Oral QAM every morning 07/02/19 024 Active dorzolamide 22.3 mg-timolol 6.8 mg/mL eye drops RxNorm: 0686712 Apply 1 Drop(s) Both eyes BID 07/02/19 024 Active acetaminophen 500 mg tablet RxNorm: 179526 Take 2 Tablet(s) Oral TID 07/02/19 023 Inactive amlodipine 5 mg tablet RxNorm: 800977 Take 1 Tablet(s) Oral QD 07/02/19 023 Inactive nicotine 21 mg/24 hr daily transdermal patch RxNorm: 715034 Apply 1 Patch Transdermal QD Remove old patch prior to placing the new one 07/02/19 023 Inactive gabapentin 600 mg tablet RxNorm: 304768 Take 1 Tablet(s) Oral TID 07/02/19 023 Inactive risperidone 2 mg tablet RxNorm: 852365 Take 1 Tablet(s) Oral BID 07/02/19 23 023 Inactive pantoprazole 40 mg intravenous solution RxNorm: 223663 Take 1 Tablet(s) Intravenous QAM every morning 07/02/19 23 023 Inactive Januvia 100 mg tablet RxNorm: 841686 Take 1 Tablet(s) Oral QD 07/02/19 023 Inactive atorvastatin 10 mg tablet RxNorm: 614200 Take 1 Tablet(s) Oral QHS every night at bedtime 07/02/19 023 Inactive potassium chloride ER 10 mEq tablet,extended release RxNorm: 455152 Take 1 Tablet(s) Oral BID 07/02/19 023 Inactive Belbuca 75 mcg buccal film RxNorm: 1052510 Take 1/2 film (37.5mcg) (cut diagonally) BID (start AFTER stopping oxycodone) 07/02/19 023 Inactive start belbuca in 7 days AFTER patient stops oxycodone aspirin 81 mg tablet,delayed release RxNorm: 416433 Take 1 Tablet(s) Oral QD 07/02/19 023 Inactive latanoprost 0.005 % eye drops RxNorm: 225854 Take 1 Drop(s) Both eyes QHS every night at bedtime 07/02/19 023 Inactive Systane Ultra 0.4 %-0.3 % eye drops RxNorm: 998273 Apply 1 Drop(s) Both eyes QID 07/02/19 023 Inactive Lantus Solostar U-100 Insulin 100 unit/mL (3 mL) subcutaneous pen RxNorm: 678104 Take 40 Unit(s) Subcutaneous QHS every night at bedtime 07/02/19 023 Inactive oxybutynin chloride 5 mg tablet RxNorm: 814405 Administer 1 Tablet(s) Oral QHS every night at bedtime 07/02/19 023 Inactive Miralax 17 gram oral powder packet RxNorm: 215344 Take 1 Packet Oral QD 07/02/19 023 Inactive hydrochlorothiazide 25 mg tablet RxNorm: 126887 Take 1 Tablet(s) Oral QD 07/02/19 023 Inactive oxycodone 5 mg tablet RxNorm: 6140136 Take 1 Tablet(s) Oral TID then discontinue and start belbuca (d/c 10mg TID) 07/02/19 23 023 Inactive stop after 7 days duloxetine 60 mg capsule,delayed release RxNorm: 757063 Take 2 Capsule(s) Oral QD 04/ 023 Inactive Narcan 4 mg/actuation nasal spray RxNorm: 9763369 Give 1 Live [place] Nasal UD as directed 1 spray contents of ONE device into nostril, call 911. May repeat once with 2nd device 07/02/19 23 023 Inactive fluticasone propionate 50 mcg/actuation nasal spray,suspension RxNorm: 5431401 [place] 2 Live [place] Nasal QD - Daily both nostrils 07/02/19 23 023 Inactive magnesium oxide 400 mg (241.3 mg magnesium) tablet RxNorm: 675443 Give 1 Tablet(s) Oral BID 07/02/19 23 023 Inactive cholecalciferol (vitamin D3) 25 mcg (1,000 unit) tablet RxNorm: 814607 Take 1 Tablet(s) Oral QAM every morning 07/02/19 023 Inactive oxycodone 5 mg tablet RxNorm: 6597414 Take 2 Tablet(s) Oral TID PRN 06/04/19 23 023 Inactive azithromycin 250 mg tablet RxNorm: 763151 Take Tablet(s) Oral QD 2 Tablets PO QD x 1 Day - Then 1 Tablet PO QD x 4 Days 05/10/19 023 Inactive oxycodone 5 mg tablet RxNorm: 5475064 Take 2 Tablet(s) Oral TID /difficulty breathing 05/03/19 23 023 Inactive oxycodone 5 mg tablet RxNorm: 2212202 Take 2 Tablet(s) Oral TID /difficulty breathing 03/03/20 22 022 Inactive azithromycin 250 mg tablet RxNorm: 173842 Take Tablet(s) Oral QD 2 Tablets PO QD x 1 Day - Then 1 Tablet PO QD x 4 Days 05/10/19 23 023 Inactive zolpidem 5 mg tablet RxNorm: 759872 Take 1 Tablet(s) Oral QHS every night at bedtime as needed 03/28/19 023 Inactive Medication Administered No Medication Administered data Procedures Procedure Codes Date 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 2022 BEHAV CHNG SMOKING 3-[address]: 2 03494605 CPT-4: 74093 06/29/2022 Reason For Visit No Reason For Visit data Encounters Encounter Performer Location Location Address Codes Date ([address]) Home or Residence Visit Est Pt - Moderate Level, 40 mins Diagnosis: Insomnia[ICD10: G47.00] Diagnosis: Chronic pain[ICD10: G89.29] Miguel A Pop [facility] [address] [place] [address] CPT-4: 92910 03/01/2023 Plan of Care Planned Activity Notes Codes Status Date Patient Education: Patient M edication Summary Completed 03/01/2023 Patient Education: Influenza Complet ed 03/01/2023 Patient Education: Smoking Cessation Completed 03/01/2023 Appointment: Yesika Adams WPtel: [address] [place] [address] 300 [id number] [place] Telehealth- Est Pt 08/11/2022 Referral: [facility] WPtel: [id number] [place] [address] [address] [id number] [place] Referral Records Received 07/18/2022 Instructions Comment Date [facility]?? Previously was seen by doctor in [place].?? First [facility] visit 03/10.?? Arthritis/pain complaints and anxiety are her biggest concerns.?? Johnnie just (in 2020). 2 sons - son Korey visits (From [place]).?? 10/27/2022
--- OUTSIDE RECORDS SUMMARY | 2023-04-13 14:23 | XMS_ITS | CCD ---
Author Name Unknown Organization Unknown Care Team Providers Care Advanced Registered Nurse Name Role Phone Donn MICHAUD, Miguel A Primary Care Provider Unavaila ble Unavailable Chronic Care Management Unavaila ble Summary Purpose DataExchange Insurance Providers Payer name Policy type / Coverage type Covered republican ID Effective Begin Date Effective End Date [place] Medicaid Blue Cross/Blue Shield [id number] 2022 Unknown [place] Blue [place]/Blue [place] [id number] 2022 Unknown Family history Mother Diagnosis Age At Onset Glaucoma Unknown Brother Diagnosis Age At Onset Visual disturbance/blindness Unknown Glaucoma Unknown Father Diagnosis Age At Onset Stomach cancer Unknown Social History Social History Element Codes Description Effec tive Dates Tobacco history SNOMED CT: 56621223 Current every day smoker 07/01/[address]: 699249046 No Alcohol Consum ption 07/01/2022 Allergies, Adverse Reactions, Alerts Substance Reaction Codes Entered Date Inactivated Date Status Bee Sting Unknown 03/03/2022 No Inactive Date Ac tive NSAIDS Unknown 03/03/2022 No Inactive Date Ac tive PENICILLINS Unknown 03/03/2022 No Inactive Date Active losartan RxNorm: 577943 03/03/2022 No Inactive Da te Active aspirin Unknown 03/03/2022 No Inactive Date Ac tive tramadol RxNorm: 44010 03/03/2022 No Inactive Marek e Active Other: [...] Headache ICD-10: R51.9 ICD-9: 784.0 03/03/2022 Active watermaster (current) use of insulin ICD-10: Z79.4 03/03 Active Medications Medication Codes Instructions Start Date Stop Date Status Fill Instructions melatonin 3 mg tablet RxNorm: 455121 Take 1 Tablet(s) Oral QHS every night at bedtime 02/29/20 024 Active 02/28/2023 PROACTIVE REFILL REQUEST FOR NEXT CYCLE PLEASE THANK YOU potassium chloride ER 20 mEq tablet,extended release(part/cryst) RxNorm: 9364750 Take 2 Tablet(s) Oral QD 02/29/20 024 Active 02/28/2023 PROACTIVE REFILL REQUEST FOR NEXT CYCLE PLEASE THANK YOU atorvastatin 10 mg tablet RxNorm: 246684 Take 1 Tablet(s) Oral QD 01/06/20 024 Active 01/05/2023 PROACTIVE REFILL REQUEST FOR NEXT CYCLE PLEASE THANK YOU fluticasone propionate 50 mcg/actuation nasal spray,suspension RxNorm: 7541991 [place] 2 [place] Nasal QD - Daily both nostrils 12/20/19 No Stop Date Active nicotine 21 mg/24 hr daily transdermal patch RxNorm: 434535 Apply 1 Transdermal QD 12/02/19 023 Inactive nicotine 21 mg/24 hr daily transdermal patch RxNorm: 466755 Apply 1 Transdermal QD 11/29/19 23 023 Inactive loratadine 10 mg tablet RxNorm: 896192 Take 1 Tablet(s) Oral QD as needed 11/23/19 23 024 Active loratadine 10 mg tablet RxNorm: 212098 Take 1 Tablet(s) Oral QD as needed 11/23/19 23 023 Inactive nicotine 21 mg/24 hr daily transdermal patch RxNorm: 565026 Apply 1 Transdermal QD 11/16/19 023 Inactive aspirin 81 mg tablet,delayed release RxNorm: 198435 Take 1 Tablet(s) Oral QD 11/15/19 23 024 Active 2ND REQUEST 11/11/2022 NEED KIM PLEASE THANK YOU nicotine 21 mg/24 hr daily transdermal patch RxNorm: 396528 Apply 1 Transdermal QD 11/02/19 23 023 Inactive amlodipine 10 mg tablet RxNorm: 084514 Take 1 Tablet(s) Oral QD 10/20/19 23 024 Active nicotine 21 mg/24 hr daily transdermal patch RxNorm: 537513 APPLY 1 PATCH ONCE DAILY 10/18/19 23 023 Inactive Pen Needle 30 gauge x 08/02 RxNorm: Use 1 Unit(s) TID Use as directed to administer insulin up to 3x daily 10/12/19 23 023 Inactive cholecalciferol (vitamin D3) 25 mcg (1,000 unit) tablet RxNorm: 290058 TAKE 1 TABLET BY MOUTH DAILY (1,000 UNITS) 09/14/19 23 024 Active 09/13/2022 PROACTIVE REFILL REQUEST FOR NEXT CYCLE PLEASE THANK YOU Systane Ultra 0.4 %-0.3 % eye drops RxNorm: 263820 Instill 1 Drop(s) Both eyes QID 09/06/19 No Stop Date Active Lantus Solostar U-100 Insulin 100 unit/mL (3 mL) subcutaneous pen RxNorm: 527226 Inject 20 Unit(s) Subcutaneous QHS every night at bedtime 09/01/19 No Stop Date Active diclofenac 1 % topical gel RxNorm: 713410 Apply 4 Gram(s) Topical QID (bilateral knees or area of pain per patient's request) 09/01/19 No Stop Date Active acetaminophen 325 mg tablet RxNorm: 769051 Take 1 Tablet(s) Oral Q4H every four hours as needed 09/01/19 No Stop Date Active Humalog KwikPen (U-100) Insulin 100 unit/mL subcutaneous RxNorm: 5001543 Unit(s) Subcutaneous Inject per sliding scale BID before lunch and dinner 09/01/19 No Stop Date Active Aspercreme (lidocaine) 4 % topical patch RxNorm: 2872017 Apply 1 Patch Topical QD (on for 12 hours, off for 12 hours) 09/01/19 No Stop Date Active melatonin 3 mg tablet RxNorm: 478885 Take 2 Tablet(s) Oral QHS every night at bedtime as needed (may repeat once) 09/01/19 23 023 Inactive Pen Needle 30 gauge x 5/16 RxNorm: Use as directed to administer insulin up to 3x daily 09/01/19 023 Inactive Januvia 100 mg tablet RxNorm: 635756 Take 1 Tablet(s) Oral QD 07/23/19 23 024 Active 2nd REQUEST FOR REFILLS 07-22-2022 NEED KIM PLEASE = THANK YOU duloxetine 60 mg capsule,delayed release RxNorm: 906832 Take 2 Capsule(s) Oral QD 07/23/19 23 024 Active 2nd REQUEST FOR REFILLS 07-22-2022 NEED KIM PLEASE = THANK YOU pantoprazole 40 mg tablet,delayed release RxNorm: 089210 TAKE 1 TABLET BY MOUTH EVERY MORNING BEFORE BREAKFAST 07/23/19 23 024 Active 2nd REQUEST FOR REFILLS 07-22-2022 NEED KIM PLEASE = THANK YOU magnesium oxide 400 mg (241.3 mg magnesium) tablet RxNorm: 936686 Take 1 Tablet(s) Oral BID 07/23/19 23 024 Active 2nd REQUEST FOR REFILLS 07-22-2022 NEED KIM PLEASE = THANK YOU acetaminophen 500 mg tablet RxNorm: 407845 Take 2 Tablet(s) Oral TID 07/23/19 23 024 Active 2nd REQUEST FOR REFILLS 07-22-2022 NEED KIM PLEASE = THANK YOU risperidone 2 mg tablet RxNorm: 204185 Take 1 Tablet(s) Oral BID 07/23/19 23 024 Active 2nd REQUEST FOR REFILLS 07-22-2022 NEED KIM PLEASE = THANK YOU hydrochlorothiazide 25 mg tablet RxNorm: 418609 Take 1 Tablet(s) Oral QD 07/23/19 23 024 Active 2nd REQUEST FOR REFILLS 07-22-2022 NEED KIM PLEASE = THANK YOU potassium chloride ER 10 mEq capsule,extended release RxNorm: 180021 TAKE 1 CAPSULE BY MOUTH TWICE DAILY WITH MEAL(S) 07/23/19 23 023 Inactive 2nd REQUEST FOR REFILLS 07-22-2022 NEED KIM PLEASE = THANK YOU buprenorphine HCl 2 mg sublingual tablet RxNorm: 749886 Take 1 Tablet(s) Sublingual TID 07/19/19 23 023 Inactive buprenorphine HCl 2 mg sublingual tablet RxNorm: 854921 Take 1 Tablet(s) Sublingual TID 07/19/19 23 023 Inactive oxycodone 5 mg tablet RxNorm: 5035524 Take 1 Tablet(s) Oral BID x7 days then decrease to 1 tab once daily x 7 days then d/c 07/09/19 23 023 Inactive latanoprost 0.005 % eye drops RxNorm: 581455 Take 1 Drop(s) Both eyes QHS every night at bedtime 07/07/19 23 024 Active buprenorphine 5 mcg/hour weekly transdermal patch RxNorm: 565063 Apply 1 Transdermal once every 7 days 07/06/19 23 023 Inactive zolpidem 5 mg tablet RxNorm: 175272 Take 1 Tablet(s) Oral QHS every night at bedtime 07/06/19 023 Inactive buprenorphine 5 mcg/hour weekly transdermal patch RxNorm: 712058 Apply 1 Transdermal once every 7 days 07/06/19 023 Inactive start after stops oxycodone. belbuca film not covered famotidine 20 mg tablet RxNorm: 836473 Give 1 Tablet(s) Oral QHS every night at bedtime 07/02/19 024 Active torsemide 20 mg tablet RxNorm: 583082 Take 1 Tablet(s) Oral QAM every morning 07/02/19 024 Active dorzolamide 22.3 mg-timolol 6.8 mg/mL eye drops RxNorm: 3117439 Apply 1 Drop(s) Both eyes BID 07/02/19 024 Active acetaminophen 500 mg tablet RxNorm: 553363 Take 2 Tablet(s) Oral TID 07/02/19 023 Inactive amlodipine 5 mg tablet RxNorm: 189020 Take 1 Tablet(s) Oral QD 07/02/19 023 Inactive nicotine 21 mg/24 hr daily transdermal patch RxNorm: 089935 Apply 1 Patch Transdermal QD Remove old patch prior to placing the new one 07/02/19 023 Inactive gabapentin 600 mg tablet RxNorm: 052114 Take 1 Tablet(s) Oral TID 07/02/19 023 Inactive risperidone 2 mg tablet RxNorm: 664643 Take 1 Tablet(s) Oral BID 07/02/19 023 Inactive pantoprazole 40 mg intravenous solution RxNorm: 974413 Take 1 Tablet(s) Intravenous QAM every morning 07/02/19 023 Inactive Januvia 100 mg tablet RxNorm: 447137 Take 1 Tablet(s) Oral QD 07/02/19 023 Inactive atorvastatin 10 mg tablet RxNorm: 822405 Take 1 Tablet(s) Oral QHS every night at bedtime 07/02/19 023 Inactive potassium chloride ER 10 mEq tablet,extended release RxNorm: 574970 Take 1 Tablet(s) Oral BID 07/02/19 023 Inactive Belbuca 75 mcg buccal film RxNorm: 3008435 Take 1/2 film (37.5mcg) (cut diagonally) BID (start AFTER stopping oxycodone) 07/02/19 023 Inactive start belbuca in 7 days AFTER patient stops oxycodone aspirin 81 mg tablet,delayed release RxNorm: 404524 Take 1 Tablet(s) Oral QD 07/02/19 023 Inactive latanoprost 0.005 % eye drops RxNorm: 596610 Take 1 Drop(s) Both eyes QHS every night at bedtime 07/02/19 023 Inactive Systane Ultra 0.4 %-0.3 % eye drops RxNorm: 796718 Apply 1 Drop(s) Both eyes QID 07/02/19 023 Inactive Lantus Solostar U-100 Insulin 100 unit/mL (3 mL) subcutaneous pen RxNorm: 850314 Take 40 Unit(s) Subcutaneous QHS every night at bedtime 07/02/19 023 Inactive oxybutynin chloride 5 mg tablet RxNorm: 701371 Administer 1 Tablet(s) Oral QHS every night at bedtime 07/02/19 023 Inactive Miralax 17 gram oral powder packet RxNorm: 930092 Take 1 Packet Oral QD 07/02/19 023 Inactive hydrochlorothiazide 25 mg tablet RxNorm: 535556 Take 1 Tablet(s) Oral QD 07/02/19 023 Inactive oxycodone 5 mg tablet RxNorm: 9315282 Take 1 Tablet(s) Oral TID then discontinue and start belbuca (d/c 10mg TID) 07/02/19 23 023 Inactive stop after 7 days duloxetine 60 mg capsule,delayed release RxNorm: 969450 Take 2 Capsule(s) Oral QD 07/02/19 023 Inactive Narcan 4 mg/actuation nasal spray RxNorm: 8374901 Give 1 [place] Nasal UD as directed 1 spray contents of ONE device into nostril, call 911. May repeat once with 2nd device 07/02/19 23 023 Inactive fluticasone propionate 50 mcg/actuation nasal spray,suspension RxNorm: 0237780 [place] 2 [place] Nasal QD - Daily both nostrils 07/02/19 23 023 Inactive magnesium oxide 400 mg (241.3 mg magnesium) tablet RxNorm: 036745 Give 1 Tablet(s) Oral BID 07/02/19 23 023 Inactive cholecalciferol (vitamin D3) 25 mcg (1,000 unit) tablet RxNorm: 355639 Take 1 Tablet(s) Oral QAM every morning 07/02/19 23 023 Inactive oxycodone 5 mg tablet RxNorm: 0769595 Take 2 Tablet(s) Oral TID PRN 06/04/19 23 023 Inactive azithromycin 250 mg tablet RxNorm: 770539 Take Tablet(s) Oral QD 2 Tablets PO QD x 1 Day - Then 1 Tablet PO QD x 4 Days 05/10/19 23 023 Inactive oxycodone 5 mg tablet RxNorm: 1196070 Take 2 Tablet(s) Oral TID /difficulty breathing 05/03/19 23 023 Inactive oxycodone 5 mg tablet RxNorm: 9696481 Take 2 Tablet(s) Oral TID /difficulty breathing 03/03/20 22 022 Inactive azithromycin 250 mg tablet RxNorm: 237375 Take Tablet(s) Oral QD 2 Tablets PO QD x 1 Day - Then 1 Tablet PO QD x 4 Days 05/10/19 23 023 Inactive zolpidem 5 mg tablet RxNorm: 448042 Take 1 Tablet(s) Oral QHS every night at bedtime as needed 03/28/19 23 023 Inactive Medication Administered No Medication Administered data Procedures Procedure Codes Date BEHAV CHNG SMOKING 3-[address]: 2 84768105 CPT-4: 36365 06/29/2022 Reason For Visit No Reason For Visit data Plan of Care Planned Activity Notes Codes Status Date Referral: [facility] WPtel: [address] [place], [place] [id number] Referral Records Received 07/18/2022 Instructions Comment Date [facility].?? Previously was seen by doctor in [place].?? First [facility] visit 03/10.?? Arthritis/pain complaints and anxiety are her biggest concerns.?? Johnnie just (in 2020). 2 sons - son Korey visits (From [place]).?? 10/27/2022
--- OUTSIDE RECORDS SUMMARY | 2023-04-13 14:24 | XMS_ITS | Clinical Summary ---
Author Name Unknown Organization [facility] Address [place], [place] [address] Care Team Providers Care Foundation Maker Name Role Phone Sebastian Griffiths MD Primary Care Provider Unavailab [facility] [place] Unavailable Allergies Active Allergy Reactions Criticality Noted Date Comments Aspirin *Unknown,Rash 05/31/2002 Bee Venom Protein (Honey Bee) Anaphylaxis High 09/19/2012 Honey *Unknown 09/08/2020 Ketorolac *Unknown,Seizures High 04/23/2020 Per patient report Losartan *Unknown High 03/12/2019 angioedema Nsaids (Non-Steroidal Anti-Inflammatory Drug) *Unknown,Rash Low 02/20/2002 Penicillins *Unknown,Rash 05/31/2002 Shrimp *Unknown 09/08/2020 Tramadol Seizures High 03/29/2019 Seizure Varenicline *Unknown 12/25/2008 Venom-Honey Bee *Unknown 09/08/2020 Medications Medication Sig Dispensed Refills Start Date End Date Status amLODIPine (NORVASC) 5 mg tablet Take 5 mg by mouth once daily. 0 Active dorzolamide-timoloL (COSOPT) 2-0.5 % ophthalmic solution Place 1 Drop into both eyes 2 times daily. 0 Active DULoxetine (CYMBALTA) 60 mg Delayed-release capsule Take 120 mg by mouth once daily. 0 Active fluticasone (50 mcg per actuation) nasal solution (FLONASE) Inhale 2 Sprays to both nostrils once daily. 0 Active hydroCHLOROthiazide (HCTZ) 25 mg tablet Take 25 mg by mouth once daily. 0 Active latanoprost (XALATAN) 0.005 % ophthalmic solution Place 1 Drop into both eyes at bedtime. 0 08/06/2020 Active pantoprazole (PROTONIX) 40 mg delayed-release tablet Take 40 mg by mouth once daily before a meal. 0 09/10/2020 Active risperiDONE (RISPERDAL) 2 mg tablet Take 2 mg by mouth two times daily. 0 09/10/2020 Active Januvia 100 mg tablet Take 100 mg by mouth once daily. 0 10/22/2020 Active aspirin (ECOTRIN) 81 mg enteric coated tablet Take 81 mg by mouth once daily with a meal. 0 Active atorvastatin (LIPITOR) 10 mg tablet Take 10 mg by mouth once daily. 0 Active famotidine (PEPCID) 20 mg tablet Take 20 mg by mouth at bedtime. 0 Active insulin lispro, U-100, (HumaLOG KwikPen Insulin) 100 unit/mL inpn pen Inject 0-7 units subcutaneous two times daily before meals. Product desired: HUMALOG KWIKPEN Take based on sliding scale before lunch and supper 0 Active magnesium oxide (MAG-OX 400) 400 mg tablet Take 400 mg by mouth two times daily. 0 Active nicotine 21 mg/24 hr (NICODERM; HABITROL) 21 mg/24 hr patch Apply 1 Patch on dry, clean, hairless skin once daily. 0 Active torsemide (DEMADEX) 20 mg tablet Take 20 mg by mouth once daily. 0 Active cholecalciferol (Vitamin D) 1,000 unit tablet Take 1,000 units by mouth once daily. 0 Active artificial tears, peg 400-propylene glycol, (Systane Ultra) 0.4-0.3 % drop ophthalmic Place 1 Drop into both eyes four times daily. 0 Active Lantus Solostar U-100 Insulin 100 unit/mL (3 mL) penIndications:Type 2 diabetes mellitus without complication, with long-term current use of insulin (HC) Inject 20 units subcutaneous before bedtime. 15 mL 0 08/09/2022 Active lidocaine 4 % topical patchIndications:Chr onic pain syndrome Apply 1 Patch on dry, clean, hairless, intact skin once daily to cover most painful area for 12hr, then remove for 12 hr. OK to cut in half if needed. Apply at least a few inches from open skin: rash, wound/incision or dressing. Do NOT apply heating pad over medication patches (it increases absorption). Do not apply to same area that you are applying Voltaren gel. 10 Patch 0 08/09/2022 Active diclofenac topical (VOLTAREN) 1 % gelIndications:Chron ic pain syndrome Apply 4 g topically to affected area(s) four times daily. Apply to bilateral knees or area per patient request. However, do not apply to same area where lidocaine patch is/has been in the last 24 hrs. 20 g 0 08/09/2022 Active melatonin 3 mg tabletIndications:Sl eep deficient Take 2 Tablets (6 mg) by mouth at bedtime if needed, may repeat once for Sleep. 60 Tablet 0 08/09/2022 Active acetaminophen (TYLENOL) 325 mg tabletIndications:Ch ronic pain syndrome,Acute encephalopathy Take1 tablet by mouth every 4 hours as needed for pain. Max acetaminophen dose: 4000mg in 24 hrs. 80 Tablet 0 08/09/2022 Active WalkerIndications:Ch ronic pain syndrome Walker with wheels,seat,hand brakes,and basket for home use. 1 Each 0 08/09/2022 Active Active Problems Problem Noted Date Diagnosed Date Chronic hepatitis C without hepatic coma 023 07/22/2022 Diabetes mellitus type 2, uncontrolled 3 07/22/2022 Acute encephalopathy 07/22/2022 Acute hypoxemic respiratory failure 07/22/2022 Chronic, continuous use of opioids 04/13/2021 07/22/2022 Obesity with body mass index 30 or greater 04/2407/22/2022 Toxic effect of carbon monox meagan from other source, undetermined, initial encounter 04/24/2020 07/22/2022 Periprosthetic fracture arou nd internal prosthetic right knee joint 05/15/2019 07/22/2022 Angioedema 02/18/2019 07/22/2022 Degeneration of intervertebral disc of lumbar re gion 10/10/2018 07/22/2022 Chronic obstructive pulmonary disease 04/10/2018 07/22/2022 Hyperlipidemia 04/10/2018 07/22/2022 Migraine headache 04/10/2018 07/22/2022 Chronic pain syndrome 12/20/2017 07/22/2022 Overview: Overview: Chronic pain syndrome related to degenerative arthritis and other nonspecific factors; probable left trochanteric bursitis; multiple orthopedic procedures; history of mass on spine 02/04/2015 acute minimally displaced fractures right 5th-7th ribs laterall. Chronic left sided rib fractures, right shoulder injury, left knee inury, cervical Chronic pain syndrome related to degenerative arthritis and other nonspecific factors; probable left trochanteric bursitis; multiple orthopedic procedures; history of mass on spine 02/04/2015 acute minimally displaced fractures right 5th-7th ribs laterall. 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, continuous abuse 10/1507/22/2022 Overview: Hx of opioid, alcohol, cocaine abuse Gastroesophageal reflux disease without esophagi tis 10/16/2015 07/22/2022 Generalized anxiety disorder 10/16/201507/2022 Borderline personality disorder 03/11/2015 07/22/2022 Lumbar radiculopathy 05/07/2012 07/22/2022 Pathological fracture due to osteoporosis 201207/22/2022 Overview: Hx vertebral compression fracture Major depressive disorder, recurrent, moderate 0 08/10/2010 07/22/2022 Chronic pancreatitis 12/09/2009 07/22/2022 Mild intermittent asthma 03/26/2009 023 Type 2 diabetes mellitus 03/26/2009 023 Hypertension, essential, benign 06/05/2003 07/22/2022 Immunizations Name Administration Dates Next Due DTaP 02/17/2007 Hepatitis B (Adult) 03/07/2017 Influenza Virus, Unspecified 04/18/2018( Deferred: Patient Refused),03/21/2016,03/03/2016,03/08/20 15,12/19/2013,12/18/2013,02/17/2009,,12/27/2007,02/15/2007, 6,02/07/2005,2004,02/11/2002,01/19,02/03/2000 Influenza, High-dose Inactivated 019,02/01/2018,03/07/2017,2016 Influenza, IIV3 (Age 6-35 mos) 3,04/02/2012,01/19/2010,2008 Influenza, IIV3 (Age >=3 years) 02/05/20 15,01/06/2009,12/27/2007,2006,02/06/2006,02/07/2005,01/11/2005,1 ,01/26/2003,02/11/2002, 001,02/03/2000 Influenza, IIV4 03/03/2016,03/08/2015,12/19/2013 Pneumococcal Poly,23-Valent (Pneumovax) 02/17/2020,12/24/2018,10/16/2013,2002,03/08/2002 Pneumococcal conj 13-Valent (Prevnar 13) 03/07/2017 Pneumococcal, Unspecified 01/18/2014 Td, Preservative Free (age > = 7 Years) 07/19/2016 Tdap 02/17/2007 Zoster, Unspecified Formulation 02/01/2018(Defer red: Patient Refused) Family History Medical History Relation Name Comments No Known Problems Brother 1 No Known Problems Brother 2 No Known Problems Brother 3 Bad blood . Heart Disease Brother 4 Pacemaker. d at age 68. No Known Problems Brother 5 Thrown iu t of a window. Cancer Father Stomach cancer. at age 39. Heart failure. No Known Problems Mother at ag e 84. Respiratory illness. No Known Problems Sister 2 No Known Problems Son 1 Rosanne mathur [place] No Known Problems Son 2 Dania alonzo [place] Relation Name Status Comments Brother 1 Alive Brother 2 Alive Brother 3 Brother 4 Brother 5 Father Mother Sister 1 Alive Sister 2 Alive Son 1 Alive Son 2 Alive Social History Tobacco Use Types Packs/Day Years Used Date Smoking Tobacco: Former Smokeless Tobacco: Never Comments:3 cigarettes per da y Alcohol Use Standard Drinks/Week Comments Never 0 (1 standard drink = 0.6 oz pur e alcohol) Social Connections Answer Date Recorded Frequency of Communication with Friends and Fami ly Not on file 07/22/2022 Sex and Gender Information Value Date Recorded Sex Assigned at Not on file Gender Identity Not on file Sexual Orientation Not on file Obstetrics History Last Filed Vital Signs Vital Sign Reading Time Taken Comments Blood Pressure 118/82 08/17/2022 2:56 PM CDT Pulse 96 08/17/2022 2:56 PM CDT Temperature 36.2 ??C (97.1 ??F) 08/17/2022 2:56 PM CD T Respiratory Rate 16 08/17/2022 2:56 PM CDT Oxygen Saturation 98% 08/17/2022 2:56 PM CDT Inhaled Oxygen Concentration - - Weight 100.1 kg (220 lb 10.9 oz) 07/25/2022 2:00 AM CDT Height 152.4 cm (5') 07/22/2022 8:00 PM CDT Body Mass Index 43.1 07/22/2022 8:00 PM CDT Plan of Treatment Health Maintenance Due Date Last Done Comments Depression screening for age 12+ 1964 BMI (ht and wt on same day) for age 18+ 01/01/1970 Hepatitis C screening for ag e 18-79 01/01/1970 Colonoscopy through age 75 01/01/1997 Lipids for age 45-75 01/01/1997 Mammogram for age 45-75 01/01/1997 Zoster (shingles) series for age 50+ (1 of 2) 01/01/2002 DEXA/DXA scan for age 65+ 01/01/2017 COVID-19 vaccine series ( season) 2022 11/14/2020, 08/06/2020, 07/16/2020 Influenza for age 65+ 11/18/2022 03/12/2019 , 02/01/2018, 03/07/2017, Additional history exists Tetanus booster 07/19/2026 07/19/2016, 02/17/2007 Tdap Completed 02/17/2007 Pneumococcal series for age 65+ Completed 02/17/2020, 12/24/2018, 03/07/2017, Additional history exists Advance Directives Documents on File Type Date Recorded Patient Alternative Medicine Practitioner Jc oliver POL 05/05/2020 Latest Code Status on File Code Status Date Activated Date Inactivated Comments Full Code 08/03/2022 12:45 PM 08/09/2022 6:38 PM Question Answer Comments Code Status Discussion: Reviewed Preferences Code Status History Code Status Date Activated Date Inactivated Comments Full Code 07/22/2022 8:11 PM 08/03/2022 12:45 PM Question Answer Comments Code Status Discussion: Unable to Assess Preferences, Provider to review later Care Teams Foundation Maker Relationship Specialty Start Date End Date Sebastian Griffiths MD PCP - General 09/08/20 [facility] [place] [address], [place] [address] 08/16/22
--- OUTSIDE RECORDS SUMMARY | 2023-04-13 14:24 | XMS_ITS | CCD ---
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 Name Role Phone Miguel A Pop NP Primary Care Provider Unavaila ble Unavailable Chronic Care Management Unavaila ble Summary Purpose DataExchange Insurance Providers Payer name Policy type / Coverage type Covered green party ID Effective Begin Date Effective End Date [place] Blue [place] Medicaid Blue Cross/Blue Shield [id number] 2022 Unknown Medicaid [place] Blue Cross/Blue Shield [id number] 2022 Unknown Family history Mother Diagnosis Age At Onset Glaucoma Unknown Brother Diagnosis Age At Onset Visual disturbance/blindness Unknown Glaucoma Unknown Father Diagnosis Age At Onset Stomach cancer Unknown Social History Social History Element Codes Description Effec tive Dates Tobacco history SNOMED CT: 25334435 Current every day smoker 07/01/[address]: 610097611 No Alcohol Consum ption 07/01/2022 Allergies, Adverse Reactions, Alerts Substance Reaction Codes Entered Date Inactivated Date Status Bee Sting Unknown 03/03/2022 No Inactive Date Ac tive NSAIDS Unknown 03/03/2022 No Inactive Date Ac tive PENICILLINS Unknown 03/03/2022 No Inactive Date Active losartan RxNorm: 310717 03/03/2022 No Inactive Da te Active aspirin Unknown 03/03/2022 No Inactive Date Ac tive tramadol RxNorm: 52468 03/03/2022 No Inactive Marek e Active Other: Unknown 03/03/2022 No Inactive Date Ac tive VARENICLINE Unknown 03/03/2022 No Inactive Date Active Problems Condition Codes Effective Dates Condition St atus Chronic pain ICD-10: G89.29 ICD-9: 338.29 03/29/2023 Active Smoking ICD-10: F17.200 ICD-9: 305.1 03/29/2023 Active Insomnia ICD-10: G47.00 ICD-9: 780.52 03/01/2023 [...] joints ICD-10: M15.9 ICD-9: 715.98 06/29/2022 Active Arthritis associated with diabetes ICD-1 [...] Fill Instructions melatonin 3 mg tablet RxNorm: 566450 Take 1 Tablet(s) Oral QHS every night at bedtime 02/29/20 23 024 Active 02/28/2023 PROACTIVE REFILL REQUEST FOR NEXT CYCLE PLEASE THANK YOU potassium chloride ER 20 mEq tablet,extended release(part/cryst) RxNorm: 0977195 Take 2 Tablet(s) Oral QD 02/29/20 23 024 Active 02/28/2023 PROACTIVE REFILL REQUEST FOR NEXT CYCLE PLEASE THANK YOU atorvastatin 10 mg tablet RxNorm: 034992 Take 1 Tablet(s) Oral QD 01/06/20 23 024 Active 01/05/2023 PROACTIVE REFILL REQUEST FOR NEXT CYCLE PLEASE THANK YOU fluticasone propionate 50 mcg/actuation nasal spray,suspension RxNorm: 7716906 [place] 2 [place] Nasal QD - Daily both nostrils 12/20/19 No Stop Date Active nicotine 21 mg/24 hr daily transdermal patch RxNorm: Apply 1 Transdermal QD 12/02/19 023 Inactive nicotine 21 mg/24 hr daily transdermal patch RxNorm: Apply 1 Transdermal QD 11/29/19 23 023 Inactive loratadine 10 mg tablet RxNorm: 431091 Take 1 Tablet(s) Oral QD as needed 11/23/19 23 024 Active loratadine 10 mg tablet RxNorm: 294494 Take 1 Tablet(s) Oral QD as needed 11/23/19 23 023 Inactive nicotine 21 mg/24 hr daily transdermal patch RxNorm: Apply 1 Transdermal QD 11/16/19 23 023 Inactive aspirin 81 mg tablet,delayed release RxNorm: 159777 Take 1 Tablet(s) Oral QD 11/15/19 23 024 Active 2ND REQUEST 11/11/2022 NEED KIM PLEASE THANK YOU nicotine 21 mg/24 hr daily transdermal patch RxNorm: Apply 1 Transdermal QD 11/02/19 23 023 Inactive amlodipine 10 mg tablet RxNorm: 057885 Take 1 Tablet(s) Oral QD 10/20/19 23 024 Active nicotine 21 mg/24 hr daily transdermal patch RxNorm: APPLY 1 PATCH ONCE DAILY 10/18/19 23 023 Inactive Pen Needle 30 gauge x 5/16 RxNorm: Use 1 Unit(s) TID Use as directed to administer insulin up to 3x daily 10/12/19 23 023 Inactive cholecalciferol (vitamin D3) 25 mcg (1,000 unit) tablet RxNorm: 665599 TAKE 1 TABLET BY MOUTH DAILY (1,000 UNITS) 09/14/19 23 024 Active 09/13/2022 PROACTIVE REFILL REQUEST FOR NEXT CYCLE PLEASE THANK YOU Systane Ultra 0.4 %-0.3 % eye drops RxNorm: 670589 Instill 1 Drop(s) Both eyes QID 09/06/19 No Stop Date Active Lantus Solostar U-100 Insulin 100 unit/mL (3 mL) subcutaneous pen RxNorm: 970924 Inject 20 Unit(s) Subcutaneous QHS every night at bedtime 09/01/19 No Stop Date Active diclofenac 1 % topical gel RxNorm: 237235 Apply 4 Gram(s) Topical QID (bilateral knees or area of pain per patient's request) 09/01/19 No Stop Date Active acetaminophen 325 mg tablet RxNorm: 394132 Take 1 Tablet(s) Oral Q4H every four hours as needed 09/01/19 No Stop Date Active Humalog KwikPen (U-100) Insulin 100 unit/mL subcutaneous RxNorm: 1035653 Unit(s) Subcutaneous Inject per sliding scale BID before lunch and dinner 09/01/19 No Stop Date Active Aspercreme (lidocaine) 4 % topical patch RxNorm: 2538794 Apply 1 Patch Topical QD (on for 12 hours, off for 12 hours) 09/01/19 No Stop Date Active Pen Needle 30 gauge x 5/16 RxNorm: Use as directed to administer insulin up to 3x daily 09/01/19 23 023 Inactive melatonin 3 mg tablet RxNorm: 575979 Take 2 Tablet(s) Oral QHS every night at bedtime as needed (may repeat once) 09/01/19 23 023 Inactive Januvia 100 mg tablet RxNorm: 200381 Take 1 Tablet(s) Oral QD 07/23/19 23 024 Active 2nd REQUEST FOR REFILLS 07-22-2022 NEED KIM PLEASE = THANK YOU duloxetine 60 mg capsule,delayed release RxNorm: 911993 Take 2 Capsule(s) Oral QD 07/23/19 23 024 Active 2nd REQUEST FOR REFILLS 07-22-2022 NEED KIM PLEASE = THANK YOU pantoprazole 40 mg tablet,delayed release RxNorm: 528371 TAKE 1 TABLET BY MOUTH EVERY MORNING BEFORE BREAKFAST 07/23/19 23 024 Active 2nd REQUEST FOR REFILLS 07-22-2022 NEED KIM PLEASE = THANK YOU magnesium oxide 400 mg (241.3 mg magnesium) tablet RxNorm: 637837 Take 1 Tablet(s) Oral BID 07/23/19 23 024 Active 2nd REQUEST FOR REFILLS 07-22-2022 NEED KIM PLEASE = THANK YOU acetaminophen 500 mg tablet RxNorm: 844505 Take 2 Tablet(s) Oral TID 07/23/19 23 024 Active 2nd REQUEST FOR REFILLS 07-22-2022 NEED KIM PLEASE = THANK YOU risperidone 2 mg tablet RxNorm: 751212 Take 1 Tablet(s) Oral BID 07/23/19 23 024 Active 2nd REQUEST FOR REFILLS 07-22-2022 NEED KIM PLEASE = THANK YOU hydrochlorothiazide 25 mg tablet RxNorm: 996336 Take 1 Tablet(s) Oral QD 07/23/19 23 024 Active 2nd REQUEST FOR REFILLS 07-22-2022 NEED KIM PLEASE = THANK YOU potassium chloride ER 10 mEq capsule,extended release RxNorm: 943213 TAKE 1 CAPSULE BY MOUTH TWICE DAILY WITH MEAL(S) 07/23/19 23 023 Inactive 2nd REQUEST FOR REFILLS 07-22-2022 NEED KIM PLEASE = THANK YOU buprenorphine HCl 2 mg sublingual tablet RxNorm: 569655 Take 1 Tablet(s) Sublingual TID 07/19/19 23 023 Inactive buprenorphine HCl 2 mg sublingual tablet RxNorm: 573956 Take 1 Tablet(s) Sublingual TID 07/19/19 23 023 Inactive oxycodone 5 mg tablet RxNorm: 6637640 Take 1 Tablet(s) Oral BID x7 days then decrease to 1 tab once daily x 7 days then d/c 07/09/19 23 023 Inactive latanoprost 0.005 % eye drops RxNorm: 028165 Take 1 Drop(s) Both eyes QHS every night at bedtime 07/07/19 23 024 Active buprenorphine 5 mcg/hour weekly transdermal patch RxNorm: 297231 Apply 1 Transdermal once every 7 days 07/06/19 23 023 Inactive zolpidem 5 mg tablet RxNorm: 073270 Take 1 Tablet(s) Oral QHS every night at bedtime 07/06/19 23 023 Inactive buprenorphine 5 mcg/hour weekly transdermal patch RxNorm: 706626 Apply 1 Transdermal once every 7 days 07/06/19 023 Inactive start after stops oxycodone. belbuca film not covered famotidine 20 mg tablet RxNorm: 630814 Give 1 Tablet(s) Oral QHS every night at bedtime 07/02/19 23 024 Active torsemide 20 mg tablet RxNorm: 938833 Take 1 Tablet(s) Oral QAM every morning 07/02/19 024 Active dorzolamide 22.3 mg-timolol 6.8 mg/mL eye drops RxNorm: 9678809 Apply 1 Drop(s) Both eyes BID 07/02/19 024 Active acetaminophen 500 mg tablet RxNorm: 031572 Take 2 Tablet(s) Oral TID 07/02/19 023 Inactive amlodipine 5 mg tablet RxNorm: 446067 Take 1 Tablet(s) Oral QD 07/02/19 023 Inactive nicotine 21 mg/24 hr daily transdermal patch RxNorm: 108431 Apply 1 Patch Transdermal QD Remove old patch prior to placing the new one 07/02/19 023 Inactive gabapentin 600 mg tablet RxNorm: 559492 Take 1 Tablet(s) Oral TID 07/02/19 023 Inactive risperidone 2 mg tablet RxNorm: 681654 Take 1 Tablet(s) Oral BID 07/02/19 23 023 Inactive pantoprazole 40 mg intravenous solution RxNorm: 171340 Take 1 Tablet(s) Intravenous QAM every morning 07/02/19 23 023 Inactive Januvia 100 mg tablet RxNorm: 818909 Take 1 Tablet(s) Oral QD 07/02/19 023 Inactive atorvastatin 10 mg tablet RxNorm: 800729 Take 1 Tablet(s) Oral QHS every night at bedtime 07/02/19 023 Inactive potassium chloride ER 10 mEq tablet,extended release RxNorm: 200089 Take 1 Tablet(s) Oral BID 07/02/19 023 Inactive Belbuca 75 mcg buccal film RxNorm: 3701305 Take 1/2 film (37.5mcg) (cut diagonally) BID (start AFTER stopping oxycodone) 07/02/19 023 Inactive start belbuca in 7 days AFTER patient stops oxycodone aspirin 81 mg tablet,delayed release RxNorm: 107018 Take 1 Tablet(s) Oral QD 07/02/19 023 Inactive latanoprost 0.005 % eye drops RxNorm: 562713 Take 1 Drop(s) Both eyes QHS every night at bedtime 07/02/19 023 Inactive Systane Ultra 0.4 %-0.3 % eye drops RxNorm: 382848 Apply 1 Drop(s) Both eyes QID 07/02/19 023 Inactive Lantus Solostar U-100 Insulin 100 unit/mL (3 mL) subcutaneous pen RxNorm: 163624 Take 40 Unit(s) Subcutaneous QHS every night at bedtime 07/02/19 023 Inactive oxybutynin chloride 5 mg tablet RxNorm: 446875 Administer 1 Tablet(s) Oral QHS every night at bedtime 07/02/19 023 Inactive Miralax 17 gram oral powder packet RxNorm: 053747 Take 1 Packet Oral QD 07/02/19 023 Inactive hydrochlorothiazide 25 mg tablet RxNorm: 606861 Take 1 Tablet(s) Oral QD 07/02/19 023 Inactive oxycodone 5 mg tablet RxNorm: 2184892 Take 1 Tablet(s) Oral TID then discontinue and start belbuca (d/c 10mg TID) 07/02/19 23 023 Inactive stop after 7 days duloxetine 60 mg capsule,delayed release RxNorm: 539619 Take 2 Capsule(s) Oral QD 07/02/19 23 023 Inactive Narcan 4 mg/actuation nasal spray RxNorm: 1014407 Give 1 [place] Nasal UD as directed 1 spray contents of ONE device into nostril, call 911. May repeat once with 2nd device 07/02/19 23 023 Inactive fluticasone propionate 50 mcg/actuation nasal spray,suspension RxNorm: 6753575 [place] 2 [place] Nasal QD - Daily both nostrils 07/02/19 23 023 Inactive magnesium oxide 400 mg (241.3 mg magnesium) tablet RxNorm: 628436 Give 1 Tablet(s) Oral BID 07/02/19 23 023 Inactive cholecalciferol (vitamin D3) 25 mcg (1,000 unit) tablet RxNorm: 130934 Take 1 Tablet(s) Oral QAM every morning 07/02/19 23 023 Inactive oxycodone 5 mg tablet RxNorm: 9075120 Take 2 Tablet(s) Oral TID PRN 06/04/19 23 023 Inactive azithromycin 250 mg tablet RxNorm: 655970 Take Tablet(s) Oral QD 2 Tablets PO QD x 1 Day - Then 1 Tablet PO QD x 4 Days 05/10/19 023 Inactive oxycodone 5 mg tablet RxNorm: 3083022 Take 2 Tablet(s) Oral TID /difficulty breathing 05/03/19 23 023 Inactive oxycodone 5 mg tablet RxNorm: 3252823 Take 2 Tablet(s) Oral TID /difficulty breathing 03/03/20 22 022 Inactive azithromycin 250 mg tablet RxNorm: 421845 Take Tablet(s) Oral QD 2 Tablets PO QD x 1 Day - Then 1 Tablet PO QD x 4 Days 05/10/19 23 023 Inactive zolpidem 5 mg tablet RxNorm: 359756 Take 1 Tablet(s) Oral QHS every night at bedtime as needed 03/28/19 023 Inactive Medication Administered No Medication Administered data Procedures Procedure Codes Date BEHAV CHNG SMOKING 3-[address]: 2 76436422 CPT-4: 52994 06/29/2022 Reason For Visit No Reason For Visit data Encounters Encounter Performer Location Location Address Codes Date ([address]) Home or Residence Visit Est Pt - Moderate Level, 40 mins Diagnosis: Smoking[ICD10: F17.200] Diagnosis: Chronic pain[ICD10: G89.29] Miguel A Pop [facility] [address] [place] [address] CPT-4: 51827 03/29/2023 Plan of Care Planned Activity Notes Codes Status Date Appointment: Yesika Adams WPtel: [address] [id number] Telehealth- Est Pt 08/11/2022 Referral: [facility] WPtel: [address] [id number] Referral Records Received 07/18/2022 Instructions Comment Date Rena is a resident a [facility].?? Previously was seen by doctor in [place].?? First [facility] visit 03/10.?? Arthritis/pain complaints and anxiety are her biggest concerns.?? Johnnie just (in 2020). 2 sons - son Korey visits (From [place]).?? 10/27/2022
[2023-04-13 14:29] LABS: Lactate* 1.2 mmol/L (0.5-1.9)
[2023-04-13] MEDS: 0.9 % SODIUM CHLORIDE 1000 ml 1,000 ML IV (14:37)
[2023-04-13 14:40] LABS: Basophils Absolute Auto 0.01 K/uL (0.00-0.30); Basophils Percent Auto 0.1 % (0.0-3.0); Eosinophils Absolute Auto 0.17 K/uL (0.00-0.50); Eosinophils Percent Auto 2.3 % (0.0-7.0); Hemoglobin* 12.7 gm/dL (12.0-16.0); Immature Granulocytes Abs Auto 0.03 K/uL (0.00-0.30); Immature Granulocytes Pct Auto 0.4 %; Lymphocytes Absolute Auto 1.59 K/uL (0.90-2.90); Lymphocytes Percent Auto 21.5 % (20-44); Mean Corpuscular HGB Conc 33 gm/dL (32-36); Mean Corpuscular Hemoglobin 30 pg (26-34); Mean Corpuscular Volume 91 fL (80-100); Monocytes Percent Auto 8.7 % (0.0-11.0); Neutrophils Absolute Auto 4.95 K/uL (1.7-7.0); Platelet Count* 277 K/uL (140-440); RDW Coefficient of Variation % 12.1 % (11.5-15.5); Red Blood Count 4.28 m/uL (4.00-5.20); White Blood Count* 7.39 K/uL (4.50-11.00)
[2023-04-13 14:41] LABS: Slide Review Reflex No
[2023-04-13 14:51] LABS: Appearance Urine Clear (Clear); Bilirubin Urine Negative (Negative); Blood Urine Negative (Negative); Color Urine Yellow (Yellow); Glucose Urine Negative (Negative); Ketones Urine Negative (Negative); Leukocyte Esterase Urine Trace (Negative); Nitrite Urine Negative (Negative); Protein Urine Negative (Negative); Urobilinogen Urine 0.2 (0.2-1.0); pH Urine 7.5 (5.0-8.5)
[2023-04-13 14:52] LABS: Bacteria Urine Few; RBC Urine 0-2 (0-2); Squamous Epithelial Cell Urine Few (None-Few)
--- NOTE | 2023-04-13 15:54 | ED.GENADULT ---
HPI - General Adult General Date Seen: 04/13/23 Chief complaint: Abdominal Pain Stated complaint: Flu like symptoms Time Seen by Provider: 04/13/23 13:53 Source: patient, RN notes reviewed and old records reviewed Limitations: no limitations History of Present Illness HPI narrative: And that is a 73-year-old female with history of abnormal liver function tests, type 2 diabetes, borderline personality disorder, polypharmacy and chronic use of opioids who comes to the emergency room for evaluation of abdominal pain, vomiting and diarrhea. Related Data Home Medications Medication Instructions Recorded Confirmed aspirin 81 mg tablet,delayed 81 mg PO DAILY 10/19/21 02/06/23 release dorzolamide 22.3 mg-timolol 6.8 1 drp ophthalmic (eye) BID 10/19/21 02/06/23 mg/mL eye drops duloxetine 60 mg capsule,delayed 120 mg PO DAILY 10/19/21 02/06/23 release famotidine 20 mg tablet 20 mg PO HS 10/19/21 02/06/23 fluticasone propionate 50 2 spray intranasal DAILY 10/19/21 12/08/22 mcg/actuation nasal spray,suspension hydrochlorothiazide 25 mg tablet 25 mg PO DAILY 10/19/21 02/06/23 insulin aspart U-100 100 unit/mL 1 - 7 unit subcut BID@,18 10/19/21 12/08/22 (3 mL) subcutaneous pen insulin glargine 100 unit/mL (3 20 unit subcut HS 10/19/21 12/08/22 mL) subcutaneous pen (Lantus Solostar U-100 Insulin) latanoprost 0.005 % eye drops 1 drp ophthalmic (eye) HS 10/19/21 12/08/22 pantoprazole 40 mg tablet,delayed 40 mg PO DAILY 10/19/21 02/06/23 release risperidone 2 mg tablet 2 mg PO BID 10/19/21 02/06/23 atorvastatin 10 mg tablet 10 mg PO HS 03/13/22 02/06/23 cholecalciferol (vitamin D3) 25 1,000 unit PO DAILY 03/13/22 02/06/23 mcg (1,000 unit) tablet epinephrine 0.3 mg/0.3 mL 0.3 mg IM PRN PRN 03/13/22 02/06/23 injection, auto-injector nicotine 21 mg/24 hr daily 1 patch topical DAILY 03/13/22 02/06/23 transdermal patch peg 400-propylene glycol 0.4 %-0.3 1 drp ophthalmic (eye) QID 03/13/22 02/06/23 % eye drops (Systane Ultra) polyethylene glycol 3350 17 17 g PO DAILY 03/13/22 10/04/22 gram/dose oral powder (Gavilax) sitagliptin phosphate 100 mg 100 mg PO DAILY 03/13/22 02/06/23 tablet (Januvia) aluminum-mag hydroxide-simethicone 5 - 10 ml PO ACHS PRN 12/08/22 12/08/22 400 mg-400 mg-40 mg/5 mL oral susp (Antacid Maximum Strength) amlodipine 10 mg tablet 10 mg PO DAILY 12/08/22 02/06/23 calcium carbonate 200 mg calcium 400 - 800 mg PO QID PRN 12/08/22 12/08/22 (500 mg) chewable tablet (Antacid (calcium carbonate)) ibuprofen 200 mg tablet (Advil) 200 - 400 mg PO Q4H PRN 12/08/22 12/08/22 lidocaine 4 % topical patch 1 patch topical DAILY PRN 12/08/22 12/08/22 (AsperFlex (lidocaine)) loperamide 2 mg capsule 2 - 4 mg PO Q1-2H PRN 12/08/22 12/08/22 loratadine 10 mg tablet 10 mg PO DAILY PRN 12/08/22 12/08/22 magnesium hydroxide 400 mg/5 mL 15 - 30 ml PO DAILY PRN 12/08/22 12/08/22 oral suspension (Milk of Magnesia) melatonin 3 mg tablet 6 mg PO HS 12/08/22 12/08/22 zolpidem 5 mg tablet 5 mg PO QPM PRN 02/06/23 02/06/23 Previous Rx's Medication Instructions Recorded acetaminophen 500 mg tablet 1,000 mg (2 x 500 mg) PO TID #180 03/16/22 tabs magnesium oxide 400 mg (241.3 mg 400 mg PO BID #60 tabs 03/16/22 magnesium) tablet torsemide 20 mg tablet 20 mg PO DAILY@0800 #30 tabs 03/16/22 potassium chloride 10 mEq 20 meq (2 x 10 mEq) PO BIDWM 30 12/10/22 capsule,extended release days #60 caps ondansetron 4 mg disintegrating 4 mg PO Q8-12H PRN nausea and 04/13/23 tablet vomiting #10 tabs Allergies Allergy/AdvReac Type Severity Reaction Status Date / Time aspirin Allergy Unknown Verified 04/13/23 13:30 losartan Allergy Unknown Verified 04/13/23 13:30 tramadol Allergy Unknown Verified 04/13/23 13:30 varenicline Allergy Unknown Verified 04/13/23 13:30 bee venom protein (honey bee) Allergy Verified 04/13/23 13:30 ketorolac [From Toradol] Allergy Verified 04/13/23 13:30 NSAIDS (Non-Steroidal Allergy Verified 04/13/23 13:30 Anti-Inflamma Penicillins Allergy Verified 04/13/23 13:30 PFSH [facility] Medical History Altered mental status ?R41.82 - Altered mental status, unspecified (ICD-10) Type 2 diabetes mellitus ?E11.9 - Type 2 diabetes mellitus without complications (ICD-10) Sleep apnea with hypersomnolence ?G47.10 - Hypersomnia, unspecified (ICD-10) ?G47.30 - Sleep apnea, unspecified (ICD-10) Hepatic steatosis ?K76.0 - Fatty (change of) liver, not elsewhere classified (ICD-10) Physical deconditioning ?R53.81 - Other malaise (ICD-10) Polypharmacy ?Z79.899 - Other manager long term care (current) drug therapy (ICD-10) Chronic, continuous use of opioids ?F11.90 - Opioid use, unspecified, uncomplicated (ICD-10) Heart failure ?I50.9 - Heart failure, unspecified (ICD-10) Osteoarthritis ?M19.90 - Unspecified osteoarthritis, unspecified site (ICD-10) Degenerative disc disease, lumbar ?M51.36 - Other intervertebral disc degeneration, lumbar region (ICD-10) Anxiety, generalized ?F41.1 - Generalized anxiety disorder (ICD-10) Antisocial personality disorder ?F60.2 - Antisocial personality disorder (ICD-10) Back pain ?M54.9 - Dorsalgia, unspecified (ICD-10) Chronic pain syndrome ?G89.4 - Chronic pain syndrome (ICD-10) Nicotine dependence ?F17.200 - Nicotine dependence, unspecified, uncomplicated (ICD-10) Borderline personality disorder ?F60.3 - Borderline personality disorder (ICD-10) Asthma ?J45.909 - Unspecified asthma, uncomplicated (ICD-10) COPD (chronic obstructive pulmonary disease) ?J44.9 - Chronic obstructive pulmonary disease, unspecified (ICD-10) Diabetes mellitus type 2 in obese ?E11.69 - Type 2 diabetes mellitus with other specified complication (ICD-10) ?E66.9 - Obesity, unspecified (ICD-10) Hypertension, essential ?I10 - Essential (primary) hypertension (ICD-10) Obesity ?E66.9 - Obesity, unspecified (ICD-10) Surgical History History of total knee arthroplasty ?Z96.659 - Presence of unspecified artificial knee joint (ICD-10) History of cholecystectomy ?Z90.49 - Acquired absence of other specified parts of digestive tract (ICD-10) Family History Father Stomach cancer Brother Heart disease Social History Narrative: Patient is a resident of [facility]. She tells me she has been smoking 2 or 3 cigarettes per day. She is attempting to quit. She does not drink alcohol. Her healthcare power of associate attorney would be her son Korey Miles, code status is full. What is your current living situation?: I presently have a place to live Problems where you live: no known problems Problems where you live details: no known problems In the past 12 months, utilities in danger of being shut off: unable to answer In past 12 months, lack of transportation kept you from medical appts, meetings, work, or getting things needed for daily living: unable to answer In the past 12 mos, have been you worried that your food would run out before you had money to buy more?: unable to answer In the past 12 mos, the food you bought just didn't last and you didn't have money to buy more?: unable to answer Highest level of school completed/degree received: don't know Smoking Status: Former smoker What tobacco products do you use: cigarettes Smoking quit date/years: <= 15 years ago Nicotine containing products detail: quit today Second hand tobacco smoke exposure: No How often do you have a drink containing alcohol: never How often do you have six or more drinks on one occasion: Never AUDIT-C Alcohol total score: 0 Non-prescribed substance use: denies use Caffeine: Yes How often does anyone, including family, friends and others, physically hurt you: unable to answer How often does anyone, including family, friends and others, insult or talk down to you: unable to answer How often does anyone, including family, friends and others, threaten you with harm: unable to answer How often does anyone, including family, friends and others, scream or curse at you: unable to answer service: No Exam Const: Vital Signs, click to edit/add: Vital Signs - 24 hr 04/13/23 13:23 Temperature 97.8 F Pulse Rate [Right Pulse Oximeter] 100 Respiratory Rate 16 Blood Pressure [Le ft Forearm] 128/92 H Pulse Oximetry 94 Oxygen Delivery Me thod Room Air Course Vital Signs Vital signs: Initial Vital Signs Temperature 97.8 F 04/13/23 13:23 Temperature Source Temporal Artery Scan 04/13/23 13:23 Pulse Rate 100 04/13/23 13:23 Respiratory Rate 16 04/13/23 13:23 Blood Pressure 128/92 H 04/13/23 13:23 Blood Pressure Mean 104 04/13/23 13:23 Blood Pressure Position Right Lateral 04/13/23 13:23 Pulse Oximetry 94 04/13/23 13:23 Oxygen Delivery Method Room Air 04/13/23 13:23 Vital Signs Temperature 97.8 F 04/13/23 13:23 Pulse Rate 100 04/13/23 13:23 Respiratory Rate 16 04/13/23 13:23 Blood Pressure 128/92 H 04/13/23 13:23 Pulse Oximetry 94 04/13/23 13:23 Oxygen Delivery Method Room Air 04/13/23 13:23 Temperature 97.8 F 04/13/23 13:23 Pulse Rate 100 04/13/23 13:23 Respiratory Rate 16 04/13/23 13:23 Blood Pressure 128/92 H 04/13/23 13:23 Pulse Oximetry 94 04/13/23 13:23 Oxygen Delivery Method Room Air 04/13/23 13:23 Medications Administered Medications: Discontinued Medications Generic Name Dose Route Start Last Admin Trade Name Freq PRN Reason Stop Dose Admin Acetaminophen 1,000 mg 04/13/23 15:58 04/13/23 16:03 Acetaminophen 500 Mg Tablet PO 04/13/23 15:59 1,000 mg ONCE ONE Administration Sodium Chloride 1,000 mls @ 1,000 mls/hr 04/13/23 14:03 04/13/23 14:37 0.9 % Sodium Chloride 1000 Ml IV 04/13/23 15:02 1,000 mls/hr .Q1H ERIC Administration Ondansetron HCl 4 mg 04/13/23 14:02 04/13/23 14:37 Ondansetron 2 Mg/Ml Inj IVP 04/13/23 14:03 Not Given ONCE ONE Medical Decision Making MDM Narrative Medical decision making narrative: 1. Abdominal pain nausea and vomiting and diarrhea-likely viral in nature. Patient noted to have receive 1 L of normal saline. Fortunately lab values include a normal bicarb, concentrated but not ketotic urine and normal white count. Further CRP is also normal. Patient has tested negative for COVID influenza and RSV. She has no fever here today. Re-examination after her Tylenol noted no significant pain med left lower quadrant. Very distractible during visit although continued complaints of discomfort. I do see that and that has had history of chronic narcotic use. I do not think that given the normal labs today as well as her exam that she requires narcotic pain medication for the abdominal discomfort. I suspect that her abdominal discomfort will improve as her diarrhea improves. Fortunately, Zofran given by both EMS and here in the ED has allowed her to eat and drink without difficulty. A prescription for this was sent to [facility] but I am told that they will not be able to pick it up tonight from [place]. Therefore will send 2 tablets home with and that tonight to use prior to Zofran pickup. I suspect that patient will know that she has improvement of over the vomiting over the next 8-12 hours. Diarrhea will probably continue over the next 2-3 days but should be gradually improving during that time. No recent antibiotic use to suggest that this is C diff and no elevation of white count or CRP to suggest that this is a bacterial infection such as diverticulitis or colitis. At this time will not pursue imaging as she appears to be much better. 2. Disposition-home at this time to [facility]. Recommend return for worsening symptoms. Unfortunately this patient is contagious since a good handwashing is a must to prevent the spread of this likely viral illness. If patient has worsening symptoms would have her return to the emergency room for further evaluation. Certainly consideration for CT may be warranted at that time. Again given repeat examination we did not feel that was necessary here tonight. Would avoid use of narcotics unless clearly indicated. Addendum: Patient will be transferred back to [facility]. Staff has let our nurses note that many residence of [facility] are currently dealing with similar type symptoms. This further gives wait to the viral aspect of this illness. Medical Records Medical records reviewed: Yes I reviewed the patient's medical records Lab Data Lab results reviewed: Yes I reviewed the patient's lab results Labs: Lab Results 04/13/23 04/13/23 04/13/23 Range/Units 13:33 14:20 14:28 WBC 7.39 (4.50-11.00) K/uL RBC 4.28 (4.00-5.20) m/uL Hgb 12.7 (12.0-16.0) gm/dL Hct 39.0 (33.0-51.0) % MCV 91 (80-100) fL MCH 30 (26-34) pg MCHC 33 (32-36) gm/dL RDW Coeff of Rosa 12.1 (11.5-15.5) % Plt Count 277 (140-440) K/uL Neut % (Auto) 67.0 (42.0-72.0) % Lymph % (Auto) 21.5 (20-44) % [place] % (Auto) 8.7 (0.0-11.0) % Eos % (Auto) 2.3 (0.0-7.0) % Baso % (Auto) 0.1 (0.0-3.0) % Neut # (Auto) 4.95 (1.7-7.0) K/uL Lymph # (Auto) 1.59 (0.90-2.90) K/uL [place] # (Auto) 0.60 (0.00-0.90) K/UL Eos # (Auto) 0.17 (0.00-0.50) K/uL Baso # (Auto) 0.01 (0.00-0.30) K/uL Abs Immat Gran (auto) 0.03 (0.00-0.30) K/uL Imm/Tot Granulo (auto) 0.4 % Sodium 138 (135-149) mmol/L Potassium 3.7 (3.6-5.1) mmol/L Chloride 100 (96-114) mmol/L Carbon Dioxide 27 (20-32) mmol/L Anion Gap 11 (7-15) mEq/L BUN 14 (7-30) mg/dL Creatinine 0.7 (0.5-1.5) mg/dL Estimated Creat Clear 46.43 Estimated GFR 92 ml/min Glucose 114 (60-115) mg/dL Lactate 1.2 (0.5-1.9) mmol/L Calcium 9.2 (8.4-10.6) mg/dL Total Bilirubin 0.9 (0.1-1.5) mg/dL AST 58 H (12-35) U/L ALT 31 (4-35) U/L Alkaline Phosphatase 87 (40-150) U/L Total Protein 7.5 (6.0-8.3) g/dL Albumin 4.1 (3.3-5.0) g/dL Lipase 60 (23-300) U/L Urine Color Yellow (Yellow) Urine Appearance Clear (Clear) Urine pH 7.5 (5.0-8.5) Ur Specific [place] 1.020 (1.000-1.030) Urine Protein Negative (Negative) Urine Glucose (UA) Negative (Negative) Urine Ketones Negative (Negative) Urine Blood Negative (Negative) Urine Nitrite Negative (Negative) Urine Bilirubin Negative (Negative) Urine Urobilinogen 0.2 (0.2-1.0) Ur Leukocyte Esterase Trace A (Negative) Urine RBC 0-2 (0-2) Urine WBC 5-10 A (0-5) Ur Squamous Epith Cells Few (None-Few) Urine Bacteria Few A (None) SARS-CoV-2 (PCR) Negative SARS-CoV-2 (Negative) Influenza Type A (PCR) Negative PCR FLU A (Negative) Influenza Type B (PCR) Negative PCR FLU B (Negative) RSV (PCR) Negative PCR RSV (Negative) Discharge Plan Discharge Clinical Impression: Abdominal pain, vomiting, and diarrhea Patient Disposition: Home, Self-Care Condition: Improved Additional Instructions: Zofran may be used for nausea. One tablet should last you 6-8 hours. You should notice that vomiting and nausea goes away over the next 8-12 hours. Unfortunately the diarrhea will probably continue for the next few days. I recommend Tylenol if you need something for pain. I recommend against the use of Imodium. Try to stay as hydrated with as possible. Drink fluids to include Gatorade or Powerade. Recommend returning to the emergency room for worsening symptoms. Prescriptions: New ondansetron 4 mg tablet,disintegrating 4 mg PO Q8-12H PRN (Reason: nausea and vomiting) Qty: 10 0RF No Action aspirin 81 mg tablet,delayed release (DR/EC) 81 mg PO DAILY latanoprost 0.005 % drops 1 drp OPHTHALMIC (EYE) HS Rx Instructions: BOTH EYES risperidone 2 mg tablet 2 mg PO BID famotidine 20 mg tablet 20 mg PO HS pantoprazole 40 mg tablet,delayed release (DR/EC) 40 mg PO DAILY dorzolamide-timolol 22.3-6.8 mg/mL drops 1 drp OPHTHALMIC (EYE) BID Rx Instructions: BOTH EYES hydrochlorothiazide 25 mg tablet 25 mg PO DAILY fluticasone propionate 50 mcg/actuation spray,suspension 2 spray INTRANASAL DAILY insulin aspart U-100 100 unit/mL (3 mL) insulin pen 1 - 7 unit SUBCUT BID@12,18 Rx Instructions: 0-7 UNITS PER SLIDING SCALE duloxetine 60 mg capsule,delayed release(DR/EC) 120 mg PO DAILY insulin glargine [Lantus Solostar U-100 Insulin] 100 unit/mL (3 mL) insulin pen 20 unit SUBCUT HS atorvastatin 10 mg tablet 10 mg PO HS cholecalciferol (vitamin D3) 25 mcg (1,000 unit) tablet 1,000 unit PO DAILY nicotine 21 mg/24 hr patch 24 hour 1 patch topical DAILY Systane Ultra 0.4-0.3 % drops 1 drp ophthalmic (eye) QID Rx Instructions: BOTH EYES polyethylene glycol 3350 [Gavilax] 17 gram/dose powder 17 g PO DAILY Januvia 100 mg tablet 100 mg PO DAILY epinephrine 0.3 mg/0.3 mL auto-injector 0.3 mg IM PRN PRN Rx Instructions: do not exceed 3 doses per episode magnesium oxide 400 mg (241.3 mg magnesium) Tablet 400 mg PO BID Qty: 60 0RF torsemide 20 mg Tablet 20 mg PO DAILY@0800 Qty: 30 0RF acetaminophen 500 mg tablet 1,000 mg PO TID Qty: 180 0RF amlodipine 10 mg tablet 10 mg PO DAILY melatonin 3 mg tablet 6 mg PO HS magnesium hydroxide [Milk of Magnesia] 400 mg/5 mL suspension 15 - 30 ml PO DAILY PRN loratadine 10 mg tablet 10 mg PO DAILY PRN loperamide 2 mg capsule 2 - 4 mg PO Q1-2H PRN Rx Instructions: 4 MG AFTER FIRST LOOSE FLORY, THEN 2 MG PRN; do not exceed 16 mg per 24 hrs alum-mag hydroxide-simeth [Antacid Maximum Strength] 400-400-40 mg/5 mL suspension 5 - 10 ml PO ACHS PRN calcium carbonate [Antacid (calcium carbonate)] 200 mg calcium (500 mg) tablet,chewable 400 - 800 mg PO QID PRN ibuprofen [Advil] 200 mg tablet 200 - 400 mg PO Q4H PRN lidocaine [AsperFlex (lidocaine)] 4 % adhesive patch,medicated 1 patch topical DAILY PRN Rx Instructions: may leave on for up to 12 hrs potassium chloride 10 mEq Capsule, Extended Release 20 meq PO BIDWM 30 Days Qty: 60 1RF zolpidem 5 mg tablet 5 mg PO QPM PRN Follow Up/Referrals: Provider,Not a Local [Primary Care Provider] - Stand Alone Forms: [email or web address] Info Instructions
[2023-04-13 16:02] LABS: Albumin* 4.1 g/dL (3.3-5.0); Chloride* 100 mmol/L (96-114); Potassium* 3.7 mmol/L (3.6-5.1); Sodium* 138 mmol/L (135-149)
[2023-04-13] MEDS: ACETAMINOPHEN 500 MG TABLET 1000 MG PO (16:03)
[2023-04-13 16:04] LABS: Bilirubin Total* 0.9 mg/dL (0.1-1.5); Creatinine* 0.7 mg/dL (0.5-1.5); Est. Creatinine Clearance* 46.43; Estimated Glomerular Filt Rate 92 ml/min
[2023-04-13 16:05] LABS: Alanine Aminotransferase* 31 U/L (4-35); Alkaline Phosphatase* 87 U/L (40-150); Anion Gap 11 mEq/L (7-15); Aspartate Amino Transferase* 58 U/L (12-35); Blood Urea Nitrogen* 14 mg/dL (7-30); Carbon Dioxide* 27 mmol/L (20-32); Glucose* 114 mg/dL (60-115); Lipase* 60 U/L (23-300); Total Protein* 7.5 g/dL (6.0-8.3)
[2023-04-13 16:06] LABS: Calcium* 9.2 mg/dL (8.4-10.6)
== END 2023-04-13 17:29 | disposition home or self-care (01) ==
PROVIDERS: Emergency Provider Family Medicine
DX: R10.9 Unspecified abdominal pain (principal); R19.7 Diarrhea, unspecified; R11.10 Vomiting, unspecified
CPT/HCPCS: 36415; 80053; 81001; 83605; 83690; 85025; 87086; 87186; 87631; 99284; A9270; J7030

== ENCOUNTER 2023-04-14 19:34 | Outpatient (CLI) | payer BC, SELFPAY ==
--- OUTSIDE RECORDS SUMMARY | 2023-04-15 13:54 | XMS_ITS | Clinical Summary ---
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
== END 2023-04-14 19:35 | disposition home or self-care (01) ==
LOC: AMB 04-15 13:49
PROVIDERS: Visit Provider Family Medicine
DX: R10.9 Unspecified abdominal pain (principal); R53.83 Other fatigue; R41.82 Altered mental status, unspecified
CPT/HCPCS: A0425; A0427

== ENCOUNTER 2023-04-14 19:56 | Emergency (ER) | payer BC, SELFPAY ==
[2023-04-14 20:07] VITALS: BP 132/86; PULSE 84; RESP 12; TEMP 36.4; O2SAT 97
--- NOTE | 2023-04-14 20:16 | ED_ITS ---
HPI - General Adult General Chief complaint: Weakness Stated complaint: Weakness Time Seen by Provider: 04/14/23 20:04 History of Present Illness HPI narrative: This 73-year-old female comes in from [place] because of weakness. She was seen yesterday because of vomiting and diarrhea. She had a workup done at that time and labs returned with reassuring results. Nasal pharyngeal swab was negative for viral infection also. She states that she has not had any vomiting and diarrhea today. The staff at [facility] note that she seems less responsive. She arrives here with normal vital signs. She is smelling of odorous urine. She denies any dysuria symptoms. Related Data Home Medications Medication Instructions Recorded Confirmed aspirin 81 mg tablet,delayed 81 mg PO DAILY 10/19/21 02/06/23 release dorzolamide 22.3 mg-timolol 6.8 1 drp ophthalmic (eye) BID 10/19/21 02/06/23 mg/mL eye drops duloxetine 60 mg capsule,delayed 120 mg PO DAILY 10/19/21 02/06/23 release famotidine 20 mg tablet 20 mg PO HS 10/19/21 02/06/23 fluticasone propionate 50 2 spray intranasal DAILY 10/19/21 12/08/22 mcg/actuation nasal spray,suspension hydrochlorothiazide 25 mg tablet 25 mg PO DAILY 10/19/21 02/06/23 insulin aspart U-100 100 unit/mL 1 - 7 unit subcut BID@12,18 10/19/21 12/08/22 (3 mL) subcutaneous pen insulin glargine 100 unit/mL (3 20 unit subcut HS 10/19/21 12/08/22 mL) subcutaneous pen (Lantus Solostar U-100 Insulin) latanoprost 0.005 % eye drops 1 drp ophthalmic (eye) HS 10/19/21 12/08/22 pantoprazole 40 mg tablet,delayed 40 mg PO DAILY 10/19/21 02/06/23 release risperidone 2 mg tablet 2 mg PO BID 10/19/21 02/06/23 atorvastatin 10 mg tablet 10 mg PO HS 03/13/22 02/06/23 cholecalciferol (vitamin D3) 25 1,000 unit PO DAILY 03/13/22 02/06/23 mcg (1,000 unit) tablet epinephrine 0.3 mg/0.3 mL 0.3 mg IM PRN PRN 03/13/22 02/06/23 injection, auto-injector nicotine 21 mg/24 hr daily 1 patch topical DAILY 03/13/22 02/06/23 transdermal patch peg 400-propylene glycol 0.4 %-0.3 1 drp ophthalmic (eye) QID 03/13/22 02/06/23 % eye drops (Systane Ultra) polyethylene glycol 3350 17 17 g PO DAILY 03/13/22 10/04/22 gram/dose oral powder (Gavilax) sitagliptin phosphate 100 mg 100 mg PO DAILY 03/13/22 02/06/23 tablet (Januvia) aluminum-mag hydroxide-simethicone 5 - 10 ml PO ACHS PRN 12/08/22 12/08/22 400 mg-400 mg-40 mg/5 mL oral susp (Antacid Maximum Strength) amlodipine 10 mg tablet 10 mg PO DAILY 12/08/22 02/06/23 calcium carbonate 200 mg calcium 400 - 800 mg PO QID PRN 12/08/22 12/08/22 (500 mg) chewable tablet (Antacid (calcium carbonate)) ibuprofen 200 mg tablet (Advil) 200 - 400 mg PO Q4H PRN 12/08/22 12/08/22 lidocaine 4 % topical patch 1 patch topical DAILY PRN 12/08/22 12/08/22 (AsperFlex (lidocaine)) loperamide 2 mg capsule 2 - 4 mg PO Q1-2H PRN 12/08/22 12/08/22 loratadine 10 mg tablet 10 mg PO DAILY PRN 12/08/22 12/08/22 magnesium hydroxide 400 mg/5 mL 15 - 30 ml PO DAILY PRN 12/08/22 12/08/22 oral suspension (Milk of Magnesia) melatonin 3 mg tablet 6 mg PO HS 12/08/22 12/08/22 zolpidem 5 mg tablet 5 mg PO QPM PRN 02/06/23 02/06/23 Previous Rx's Medication Instructions Recorded acetaminophen 500 mg tablet 1,000 mg (2 x 500 mg) PO TID #180 03/16/22 tabs magnesium oxide 400 mg (241.3 mg 400 mg PO BID #60 tabs 03/16/22 magnesium) tablet torsemide 20 mg tablet 20 mg PO DAILY@0800 #30 tabs 03/16/22 potassium chloride 10 mEq 20 meq (2 x 10 mEq) PO BIDWM 30 12/10/22 capsule,extended release days #60 caps ondansetron 4 mg disintegrating 4 mg PO Q8-12H PRN nausea and 04/13/23 tablet vomiting #10 tabs Allergies Allergy/AdvReac Type Severity Reaction Status Date / Time aspirin Allergy Unknown Verified 04/13/23 13:30 losartan Allergy Unknown Verified 04/13/23 13:30 tramadol Allergy Unknown Verified 04/13/23 13:30 varenicline Allergy Unknown Verified 04/13/23 13:30 bee venom protein (honey bee) Allergy Verified 04/13/23 13:30 ketorolac [From Toradol] Allergy Verified 04/13/23 13:30 NSAIDS (Non-Steroidal Allergy Verified 04/13/23 13:30 Anti-Inflamma Penicillins Allergy Verified 04/13/23 13:30 Review of Systems Status of ROS: Reports: 10 or more systems reviewed and unremarkable except as noted in History and below Narrative: Constitutional: No fevers, no weight gain or loss. Eyes: No discharge. No vision changes. HENT: No congestion, no sore throat, no ear pain. Cardiovascular: No chest pain, no palpitations. Respiratory: No shortness of breath, no wheezes, no cough. Gastrointestinal: No abdominal pain. Vomiting and diarrhea symptoms were present yesterday but have discontinued today. Genitourinary: No dysuria, no hematuria. Musculoskeletal: Normal range of motion. Skin: No rashes, no pruritis. Neurological: No dizziness, weakness, sensory change, speech change. Endo/Heme/Allergies: No bruising or bleeding. No polydipsia. Pysch: no suicidality, no anxiety, no insomnia. All other systems reviewed and are negative. [facility] Medical History Altered mental status ?R41.82 - Altered mental status, unspecified (ICD-10) Type 2 diabetes mellitus ?E11.9 - Type 2 diabetes mellitus without complications (ICD-10) Sleep apnea with hypersomnolence ?G47.10 - Hypersomnia, unspecified (ICD-10) ?G47.30 - Sleep apnea, unspecified (ICD-10) Hepatic steatosis ?K76.0 - Fatty (change of) liver, not elsewhere classified (ICD-10) Physical deconditioning ?R53.81 - Other malaise (ICD-10) Polypharmacy ?Z79.899 - Other terminal superintendent (current) drug therapy (ICD-10) Chronic, continuous use of opioids ?F11.90 - Opioid use, unspecified, uncomplicated (ICD-10) Heart failure ?I50.9 - Heart failure, unspecified (ICD-10) Osteoarthritis ?M19.90 - Unspecified osteoarthritis, unspecified site (ICD-10) Degenerative disc disease, lumbar ?M51.36 - Other intervertebral disc degeneration, lumbar region (ICD-10) Anxiety, generalized ?F41.1 - Generalized anxiety disorder (ICD-10) Antisocial personality disorder ?F60.2 - Antisocial personality disorder (ICD-10) Back pain ?M54.9 - Dorsalgia, unspecified (ICD-10) Chronic pain syndrome ?G89.4 - Chronic pain syndrome (ICD-10) Nicotine dependence ?F17.200 - Nicotine dependence, unspecified, uncomplicated (ICD-10) Borderline personality disorder ?F60.3 - Borderline personality disorder (ICD-10) Asthma ?J45.909 - Unspecified asthma, uncomplicated (ICD-10) COPD (chronic obstructive pulmonary disease) ?J44.9 - Chronic obstructive pulmonary disease, unspecified (ICD-10) Diabetes mellitus type 2 in obese ?E11.69 - Type 2 diabetes mellitus with other specified complication (ICD-10) ?E66.9 - Obesity, unspecified (ICD-10) Hypertension, essential ?I10 - Essential (primary) hypertension (ICD-10) Obesity ?E66.9 - Obesity, unspecified (ICD-10) Surgical History History of total knee arthroplasty ?Z96.659 - Presence of unspecified artificial knee joint (ICD-10) History of cholecystectomy ?Z90.49 - Acquired absence of other specified parts of digestive tract (ICD- 10) Family History Father Stomach cancer Brother Heart disease Social History Narrative: Patient is a resident of [facility]. She tells me she has been smoking 2 or 3 cigarettes per day. She is attempting to quit. She does not drink alcohol. Her healthcare power of car body inspector would be her son Korey Miles, code status is full. What is your current living situation?: I presently have a place to live Problems where you live: no known problems Problems where you live details: no known problems In the past 12 months, utilities in danger of being shut off: unable to answer In past 12 months, lack of transportation kept you from medical appts, meetings, work, or getting things needed for daily living: unable to answer In the past 12 mos, have been you worried that your food would run out before you had money to buy more?: unable to answer In the past 12 mos, the food you bought just didn't last and you didn't have money to buy more?: unable to answer Highest level of school completed/degree received: don't know Smoking Status: Former smoker What tobacco products do you use: cigarettes Smoking quit date/years: <= 15 years ago Nicotine containing products detail: quit today Second hand tobacco smoke exposure: No How often do you have a drink containing alcohol: never How often do you have six or more drinks on one occasion: Never AUDIT-C Alcohol total score: 0 Non-prescribed substance use: denies use Caffeine: Yes How often does anyone, including family, friends and others, physically hurt you : unable to answer How often does anyone, including family, friends and others, insult or talk down to you: unable to answer How often does anyone, including family, friends and others, threaten you with harm: unable to answer How often does anyone, including family, friends and others, scream or curse at you: unable to answer service: No Exam Narrative: Exam Narrative: Constitutional: Well-developed, well-nourished, no acute distress. HEENT: Normocephalic, atraumatic. Neck: Normal range of motion. Nontender. Supple. Heart: Regular. No murmurs. Normal rate. Intact distal pulses. Lungs: Clear to auscultation. No chest discomfort. No wheezes, rhonchi, or rales. Abdomen: Normal bowel sounds. Nontender. No rebound tenderness. Genitalia: Deferred. Extremities: Normal range of motion. No injury. Skin: Intact. No rash. Warm. No erythema or pallor. Neurologic: No altered sensation. No weakness. Alert and oriented. Psychiatric: No suicidality. No anxiety or depression. No insomnia. Nursing notes and vitals signs are reviewed. Const: Vital Signs, click to edit/add: Vital Signs - 24 hr 04/14/23 20:07 Temperature 97.6 F Pulse Rate [Pulse Oximeter] 84 Respiratory Rate 12 Blood Pressure [Le ft Upper Arm] 132/86 Pulse Oximetry 97 Oxygen Delivery Me thod Room Air Course Vital Signs Vital signs: Initial Vital Signs Temperature 97.6 F 04/14/23 20:07 Temperature Source Temporal Artery Scan 04/14/23 20:07 Pulse Rate 84 04/14/23 20:07 Respiratory Rate 12 04/14/23 20:07 Blood Pressure 132/86 04/14/23 20:07 Blood Pressure Mean 101 04/14/23 20:07 Blood Pressure Position Supine 04/14/23 20:07 Pulse Oximetry 97 04/14/23 20:07 Oxygen Delivery Method Room Air 04/14/23 20:07 Vital Signs Temperature 97.6 F 04/14/23 20:07 Pulse Rate 84 04/14/23 20:07 Respiratory Rate 12 04/14/23 20:07 Blood Pressure 132/86 04/14/23 20:07 Pulse Oximetry 97 04/14/23 20:07 Oxygen Delivery Method Room Air 04/14/23 20:07 Temperature 97.6 F 04/14/23 20:07 Pulse Rate 84 04/14/23 20:07 Respiratory Rate 12 04/14/23 20:07 Blood Pressure 132/86 04/14/23 20:07 Pulse Oximetry 97 04/14/23 20:07 Oxygen Delivery Method Room Air 04/14/23 20:07 Medical Decision Making [facility] Narrative Medical decision making narrative: This patient arrives with normal vital signs and a but his showing decreased activity today and report of generalized weakness. She did have vomiting and diarrhea yesterday but the symptoms have resolved. An IV was established where she received a L of normal saline. Labs are acquired to check complete blood count and basic metabolic panel and urinalysis. Results for these studies are pending at the end of my shift. Care for this patient is transferred to Dr. Mcknight. Discharge Plan Discharge Clinical Impression: Weakness Prescriptions: No Action aspirin 81 mg tablet,delayed release (DR/EC) 81 mg PO DAILY latanoprost 0.005 % drops 1 drp OPHTHALMIC (EYE) HS Rx Instructions: BOTH EYES risperidone 2 mg tablet 2 mg PO BID famotidine 20 mg tablet 20 mg PO HS pantoprazole 40 mg tablet,delayed release (DR/EC) 40 mg PO DAILY dorzolamide-timolol 22.3-6.8 mg/mL drops 1 drp OPHTHALMIC (EYE) BID Rx Instructions: BOTH EYES hydrochlorothiazide 25 mg tablet 25 mg PO DAILY fluticasone propionate 50 mcg/actuation spray,suspension 2 spray INTRANASAL DAILY insulin aspart U-100 100 unit/mL (3 mL) insulin pen 1 - 7 unit SUBCUT BID@12,18 Rx Instructions: 0-7 UNITS PER SLIDING SCALE duloxetine 60 mg capsule,delayed release(DR/EC) 120 mg PO DAILY insulin glargine [Lantus Solostar U-100 Insulin] 100 unit/mL (3 mL) insulin pen 20 unit SUBCUT HS atorvastatin 10 mg tablet 10 mg PO HS cholecalciferol (vitamin D3) 25 mcg (1,000 unit) tablet 1,000 unit PO DAILY nicotine 21 mg/24 hr patch 24 hour 1 patch topical DAILY Systane Ultra 0.4-0.3 % drops 1 drp ophthalmic (eye) QID Rx Instructions: BOTH EYES polyethylene glycol 3350 [Gavilax] 17 gram/dose powder 17 g PO DAILY Januvia 100 mg tablet 100 mg PO DAILY epinephrine 0.3 mg/0.3 mL auto-injector 0.3 mg IM PRN PRN Rx Instructions: do not exceed 3 doses per episode magnesium oxide 400 mg (241.3 mg magnesium) Tablet 400 mg PO BID Qty: 60 0RF torsemide 20 mg Tablet 20 mg PO DAILY@0800 Qty: 30 0RF acetaminophen 500 mg tablet 1,000 mg PO TID Qty: 180 0RF amlodipine 10 mg tablet 10 mg PO DAILY melatonin 3 mg tablet 6 mg PO HS magnesium hydroxide [Milk of Magnesia] 400 mg/5 mL suspension 15 - 30 ml PO DAILY PRN loratadine 10 mg tablet 10 mg PO DAILY PRN loperamide 2 mg capsule 2 - 4 mg PO Q1-2H PRN Rx Instructions: 4 MG AFTER FIRST LOOSE FLORY, THEN 2 MG PRN; do not exceed 16 mg per 24 hrs alum-mag hydroxide-simeth [Antacid Maximum Strength] 400-400-40 mg/5 mL suspension 5 - 10 ml PO ACHS PRN calcium carbonate [Antacid (calcium carbonate)] 200 mg calcium (500 mg) tablet,chewable 400 - 800 mg PO QID PRN ibuprofen [Advil] 200 mg tablet 200 - 400 mg PO Q4H PRN lidocaine [AsperFlex (lidocaine)] 4 % adhesive patch,medicated 1 patch topical DAILY PRN Rx Instructions: may leave on for up to 12 hrs potassium chloride 10 mEq Capsule, Extended Release 20 meq PO BIDWM 30 Days Qty: 60 1RF zolpidem 5 mg tablet 5 mg PO QPM PRN ondansetron 4 mg tablet,disintegrating 4 mg PO Q8-12H PRN (Reason: nausea and vomiting) Qty: 10 0RF Follow Up/Referrals: Provider,Not a Local [Primary Care Provider] -
[2023-04-14] MEDS: 0.9 % SODIUM CHLORIDE 1000 ml 1,000 ML IV (20:37)
[2023-04-14 20:41] LABS: Basophils Absolute Auto 0.01 K/uL (0.00-0.30); Basophils Percent Auto 0.1 % (0.0-3.0); Eosinophils Absolute Auto 0.25 K/uL (0.00-0.50); Eosinophils Percent Auto 3.4 % (0.0-7.0); Hematocrit 40.1 % (33.0-51.0); Hemoglobin* 12.8 gm/dL (12.0-16.0); Immature Granulocytes Abs Auto 0.02 K/uL (0.00-0.30); Immature Granulocytes Pct Auto 0.3 %; Lymphocytes Percent Auto 35.6 % (20-44); Mean Corpuscular HGB Conc 32 gm/dL (32-36); Mean Corpuscular Hemoglobin 30 pg (26-34); Mean Corpuscular Volume 93 fL (80-100); Monocytes Percent Auto 12.2 % (0.0-11.0); Neutrophils Absolute Auto 3.53 K/uL (1.7-7.0); Neutrophils Percent Auto 48.4 % (42.0-72.0); Platelet Count* 293 K/uL (140-440); RDW Coefficient of Variation % 12.2 % (11.5-15.5); Red Blood Count 4.33 m/uL (4.00-5.20)
[2023-04-14 20:46] LABS: Slide Review Reflex No
[2023-04-14 20:48] LABS: Chloride* 106 mmol/L (96-114); Potassium* 3.6 mmol/L (3.6-5.1); Sodium* 141 mmol/L (135-149)
[2023-04-14 20:51] LABS: Anion Gap 7 mEq/L (7-15); Blood Urea Nitrogen* 12 mg/dL (7-30); Carbon Dioxide* 28 mmol/L (20-32); Creatinine* 0.7 mg/dL (0.5-1.5); Estimated Glomerular Filt Rate 92 ml/min; Glucose* 108 mg/dL (60-115)
[2023-04-14 20:51] LABS: Appearance Urine Clear (Clear); Bilirubin Urine Negative (Negative); Blood Urine Negative (Negative); Color Urine Yellow (Yellow); Glucose Urine Negative (Negative); Ketones Urine Negative (Negative); Leukocyte Esterase Urine Negative (Negative); Nitrite Urine Negative (Negative); Protein Urine Negative (Negative); Specific Gravity Urine 1.015 (1.000-1.030); Urobilinogen Urine 0.2 (0.2-1.0)
[2023-04-14 20:52] LABS: Calcium* 8.8 mg/dL (8.4-10.6)
[2023-04-14 21:00] LABS: RBC Urine 0-2 (0-2); Squamous Epithelial Cell Urine Few (None-Few)
[2023-04-14 21:01] LABS: Coarse Granular Casts Urine Moderate
--- OUTSIDE RECORDS SUMMARY | 2023-04-14 21:22 | XMS_ITS | Clinical Summary ---
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 [place] [address], [place] [address] 08/16/22
== END 2023-04-14 21:30 | disposition home or self-care (01) ==
PROVIDERS: Emergency Provider Emergency Medicine Emergency Medical Services
DX: R53.1 Weakness (principal)
CPT/HCPCS: 36415; 80048; 81001; 85025; 96360; 99283; 99284; J7030

== ENCOUNTER 2023-04-14 21:36 | Outpatient (CLI) | payer BC, SELFPAY | END 2023-04-14 21:37 | disposition home or self-care (01) | LOC: AMB 04-15 14:09 | PROVIDERS: Visit Provider Internal Medicine | DX: R53.1 Weakness (principal) | CPT/HCPCS: A0425; A0428 ==

== ENCOUNTER 2023-04-18 21:36 | Outpatient (CLI) | payer BC, SELFPAY ==
--- OUTSIDE RECORDS SUMMARY | 2023-04-19 12:37 | XMS_ITS | Clinical Summary ---
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
== END 2023-04-18 21:37 | disposition home or self-care (01) ==
LOC: AMB 04-19 12:35
PROVIDERS: Visit Provider Family Medicine
DX: R41.82 Altered mental status, unspecified (principal)
CPT/HCPCS: A0425; A0427

== ENCOUNTER 2023-04-18 21:59 | Emergency (ER) | payer BC, SELFPAY ==
[2023-04-18] VITALS (18 sets, daily range): BP systolic 113–131; BP diastolic 67–82; PULSE 70–80; RESP 16; TEMP 36.1; O2SAT 90–100
--- NOTE | 2023-04-18 22:07 | ED.AMS ---
HPI - Altered Mental Status General Time Seen by Provider: 22:07 <Melissa Chambers MD - Last Filed: 04/20/23 13:41> Date Seen: 04/18/23 <Melissa Chambers MD - Last Filed: 04/20/23 13:41> Chief Complaint: Altered Mental Status <Melissa Chambers MD - Last Filed: 04/20/23 13:41> Stated Complaint: altered mental status <Melissa Chambers MD - Last Filed: 04/20/23 13:41> Time Seen by Provider: 04/18/23 22:07 <Melissa Chambers MD - Last Filed: 04/20/23 13:41> Source: patient, EMS, RN notes reviewed and old records reviewed <Melissa Chambers MD - Last Filed: 04/20/23 13:41> Mode of arrival: EMS <Melissa Chambers MD - Last Filed: 04/20/23 13:41> Limitations: altered mental status <Melissa Chambers MD - Last Filed: 04/20/23 13:41> History of Present Illness HPI narrative: Rena is a 73-year-old female with history of recent vomiting and diarrhea, UTI, history of encephalopathy borderline personality and type 2 diabetes who comes to the emergency room via EMS for altered mentation. According to [facility] staff where Rena resides she has had been unresponsive intermittently with episodes of incontinence and not getting out of bed since she was last seen on in our emergency room. Medical staff was consulted today and they were told to send her to the emergency room. She is supposed to be on potassium but has not been taking that. According to previous visits she has been on narcotics but this was not included on the [facility] med list this evening according to EMS. She is insulin dependent. No reports of continued vomiting or diarrhea. No reports of any trauma. EMS notes normal vital signs that are reassuring and patient has been unresponsive to them. We meet and that in the back all way and go immediately to CT. She is moving all 4 extremities when we touch the bottom of her feet and a gentle touch to the outside of her eyelid causes her to blink. <Melissa Chambers MD - Last Filed: 04/20/23 13:41> Related Data Home Medications: Home Medications Medication Instructions Recorded Confirmed aspirin 81 mg tablet,delayed 81 mg PO DAILY 10/19/21 04/19/23 release dorzolamide 22.3 mg-timolol 6.8 1 drp ophthalmic (eye) BID 10/19/21 04/19/23 mg/mL eye drops duloxetine 60 mg capsule,delayed 120 mg PO DAILY 10/19/21 04/19/23 release famotidine 20 mg tablet 20 mg PO HS 10/19/21 04/19/23 fluticasone propionate 50 2 spray intranasal DAILY 10/19/21 04/19/23 mcg/actuation nasal spray,suspension hydrochlorothiazide 25 mg tablet 25 mg PO DAILY 10/19/21 04/19/23 insulin aspart U-100 100 unit/mL 1 - 7 unit subcut BID@12,18 10/19/21 04/19/23 (3 mL) subcutaneous pen insulin glargine 100 unit/mL (3 20 unit subcut HS 10/19/21 04/19/23 mL) subcutaneous pen (Lantus Solostar U-100 Insulin) latanoprost 0.005 % eye drops 1 drp ophthalmic (eye) HS 10/19/21 04/19/23 pantoprazole 40 mg tablet,delayed 40 mg PO DAILY 10/19/21 04/19/23 release risperidone 2 mg tablet 2 mg PO BID 10/19/21 04/19/23 atorvastatin 10 mg tablet 10 mg PO HS 03/13/22 04/19/23 nicotine 21 mg/24 hr daily 1 patch topical DAILY 03/13/22 04/19/23 transdermal patch peg 400-propylene glycol 0.4 %-0.3 1 drp ophthalmic (eye) QID 03/13/22 04/19/23 % eye drops (Systane Ultra) polyethylene glycol 3350 17 17 g PO DAILY 03/13/22 04/19/23 gram/dose oral powder (Gavilax) sitagliptin phosphate 100 mg 100 mg PO DAILY 03/13/22 04/19/23 tablet (Januvia) amlodipine 10 mg tablet 10 mg PO DAILY 12/08/22 04/19/23 lidocaine 4 % topical patch 1 patch topical DAILY PRN 12/08/22 04/19/23 (AsperFlex (lidocaine)) melatonin 3 mg tablet 6 mg PO HS 12/08/22 04/19/23 cholecalciferol (vitamin D3) 25 25 mcg PO DAILY 04/19/23 04/19/23 mcg (1,000 unit) tablet potassium chloride 20 mEq 20 meq PO BID 04/19/23 04/19/23 tablet,extended release(part/cryst) Previous Rx's Medication Instructions Recorded acetaminophen 500 mg tablet 1,000 mg (2 x 500 mg) PO TID #180 03/16/22 tabs magnesium oxide 400 mg (241.3 mg 400 mg PO BID #60 tabs 03/16/22 magnesium) tablet torsemide 20 mg tablet 20 mg PO DAILY@0800 #30 tabs 03/16/22 ondansetron 4 mg disintegrating 4 mg PO Q8-12H PRN nausea and 04/13/23 tablet vomiting #10 tabs <Melissa Chambers MD - Last Filed: 04/20/23 13:41> Allergies/Adverse Reactions: Allergies Allergy/AdvReac Type Severity Reaction Status Date / Time aspirin Allergy Unknown Verified 04/13/23 13:30 losartan Allergy Unknown Verified 04/13/23 13:30 tramadol Allergy Unknown Verified 04/13/23 13:30 varenicline Allergy Unknown Verified 04/13/23 13:30 bee venom protein (honey bee) Allergy Verified 04/13/23 13:30 ketorolac [From Toradol] Allergy Verified 04/13/23 13:30 NSAIDS (Non-Steroidal Allergy Verified 04/13/23 13:30 Anti-Inflamma Penicillins Allergy Verified 04/13/23 13:30 <Melissa Chambers MD - Last Filed: 04/20/23 13:41> Review of Systems Status of ROS: Reports: unobtainable due to mental status <Melissa Chambers MD - Last Filed: 04/20/23 13:41> [facility] Medical History: Medical History Altered mental status ?R41.82 - Altered mental status, unspecified (ICD-10) Type 2 diabetes mellitus ?E11.9 - Type 2 diabetes mellitus without complications (ICD-10) Sleep apnea with hypersomnolence ?G47.10 - Hypersomnia, unspecified (ICD-10) ?G47.30 - Sleep apnea, unspecified (ICD-10) Hepatic steatosis ?K76.0 - Fatty (change of) liver, not elsewhere classified (ICD-10) Physical deconditioning ?R53.81 - Other malaise (ICD-10) Polypharmacy ?Z79.899 - Other senior living (current) drug therapy (ICD-10) Chronic, continuous use of opioids ?F11.90 - Opioid use, unspecified, uncomplicated (ICD-10) Heart failure ?I50.9 - Heart failure, unspecified (ICD-10) Osteoarthritis ?M19.90 - Unspecified osteoarthritis, unspecified site (ICD-10) Degenerative disc disease, lumbar ?M51.36 - Other intervertebral disc degeneration, lumbar region (ICD-10) Anxiety, generalized ?F41.1 - Generalized anxiety disorder (ICD-10) Antisocial personality disorder ?F60.2 - Antisocial personality disorder (ICD-10) Back pain ?M54.9 - Dorsalgia, unspecified (ICD-10) Chronic pain syndrome ?G89.4 - Chronic pain syndrome (ICD-10) Nicotine dependence ?F17.200 - Nicotine dependence, unspecified, uncomplicated (ICD-10) Borderline personality disorder ?F60.3 - Borderline personality disorder (ICD-10) Asthma ?J45.909 - Unspecified asthma, uncomplicated (ICD-10) COPD (chronic obstructive pulmonary disease) ?J44.9 - Chronic obstructive pulmonary disease, unspecified (ICD-10) Diabetes mellitus type 2 in obese ?E11.69 - Type 2 diabetes mellitus with other specified complication (ICD-10) ?E66.9 - Obesity, unspecified (ICD-10) Hypertension, essential ?I10 - Essential (primary) hypertension (ICD-10) Obesity ?E66.9 - Obesity, unspecified (ICD-10) <Melissa Chambers MD - Last Filed: 04/20/23 13:41> Surgical History: Surgical History History of total knee arthroplasty ?Z96.659 - Presence of unspecified artificial knee joint (ICD-10) History of cholecystectomy ?Z90.49 - Acquired absence of other specified parts of digestive tract (ICD-10) <Melissa Chambers MD - Last Filed: 04/20/23 13:41> Family History: Family History Father Stomach cancer Brother Heart disease <Melissa Chambers MD - Last Filed: 04/20/23 13:41> Social History: Social History Narrative: Patient is a resident of [facility]. She tells me she has been smoking 2 or 3 cigarettes per day. She is attempting to quit. She does not drink alcohol. Her healthcare power of consumer attorney would be her son Korey Miles, code status is full. What is your current living situation?: I presently have a place to live Problems where you live: no known problems Problems where you live details: no known problems In the past 12 months, utilities in danger of being shut off: unable to answer In past 12 months, lack of transportation kept you from medical appts, meetings, work, or getting things needed for daily living: unable to answer In the past 12 mos, have been you worried that your food would run out before you had money to buy more?: unable to answer In the past 12 mos, the food you bought just didn't last and you didn't have money to buy more?: unable to answer Highest level of school completed/degree received: don't know Smoking Status: Former smoker What tobacco products do you use: cigarettes Smoking quit date/years: <= 15 years ago Nicotine containing products detail: quit today Second hand tobacco smoke exposure: No How often do you have a drink containing alcohol: never How often do you have six or more drinks on one occasion: Never AUDIT-C Alcohol total score: 0 Non-prescribed substance use: denies use Caffeine: Yes How often does anyone, including family, friends and others, physically hurt you: unable to answer How often does anyone, including family, friends and others, insult or talk down to you: unable to answer How often does anyone, including family, friends and others, threaten you with harm: unable to answer How often does anyone, including family, friends and others, scream or curse at you: unable to answer service: No <Melissa Chambers MD - Last Filed: 04/20/23 13:41> Exam Narrative: Exam Narrative: Patient is noted to be with eyes closed not moving initially. Vital signs are very reassuring. Patient withdrawing to sternal rub. She is now out grabbing my hand and pushing it away. She was also moving her arm as they were placing the IV. Now she has pulled the blanket up over her head. Head is atraumatic normocephalic. She did open her eyes to my request and pupils are normal and reactive. Neck is supple. Heart with regular rate and rhythm. Lungs are with decreased breath sounds in the bases but lung sounds are present. Abdomen is soft. She does push my hand away when I am trying to of press on her abdomen. No masses are palpated. Lower extremities without edema. She pulls both feet away from me when I touch the bottom of her soles. <Melissa Chambers MD - Last Filed: 04/20/23 13:41> Const: Vital Signs, click to edit/add: Vital Signs - 24 hr 04/18/23 22:05 04/18/23 22:06 04/18/23 22:08 Temperature 97.0 F L Pulse Rate 79 74 Pulse Rate [Pulse Oximeter] 78 Respiratory Rate 16 Blood Pressure 131/82 Blood Pressure [Ri ght Upper Arm] 131/82 Pulse Oximetry 96 98 98 Oxygen Delivery Me thod Room Air 04/18/23 22:15 04/18/23 22:25 04/18/23 22:30 Temperature Pulse Rate 77 76 76 Pulse Rate [Pulse Oximeter] Respiratory Rate Blood Pressure 116/70 Blood Pressure [Ri ght Upper Arm] Pulse Oximetry 95 97 95 Oxygen Delivery Me thod 04/18/23 22:32 04/18/23 22:45 04/18/23 22:47 Temperature Pulse Rate 77 76 80 Pulse Rate [Pulse Oximeter] Respiratory Rate Blood Pressure 119/68 115/76 Blood Pressure [Ri ght Upper Arm] Pulse Oximetry 96 96 98 Oxygen Delivery Me thod 04/18/23 22:48 04/18/23 23:00 04/18/23 23:01 Temperature Pulse Rate 74 74 74 Pulse Rate [Pulse Oximeter] Respiratory Rate Blood Pressure 116/67 Blood Pressure [Ri ght Upper Arm] Pulse Oximetry 100 97 98 Oxygen Delivery Me thod 04/18/23 23:15 04/18/23 23:17 04/18/23 23:30 Temperature Pulse Rate 70 71 71 Pulse Rate [Pulse Oximeter] Respiratory Rate Blood Pressure 121/71 Blood Pressure [Ri ght Upper Arm] Pulse Oximetry 95 97 98 Oxygen Delivery Me thod 04/18/23 23:31 04/18/23 23:33 04/18/23 23:45 Temperature Pulse Rate 72 76 70 Pulse Rate [Pulse Oximeter] Respiratory Rate Blood Pressure 113/70 Blood Pressure [Ri ght Upper Arm] Pulse Oximetry 97 90 99 Oxygen Delivery Me thod 04/19/23 00:00 04/19/23 00:02 04/19/23 00:02 Temperature Pulse Rate 70 70 70 Pulse Rate [Pulse Oximeter] Respiratory Rate Blood Pressure 107/49 L 107/49 L Blood Pressure [Ri ght Upper Arm] Pulse Oximetry 97 98 98 Oxygen Delivery Me thod 04/19/23 00:02 04/19/23 00:02 04/19/23 00:19 Temperature Pulse Rate 70 70 71 Pulse Rate [Pulse Oximeter] Respiratory Rate Blood Pressure 107/49 L 107/49 L Blood Pressure [Ri ght Upper Arm] Pulse Oximetry 98 98 96 Oxygen Delivery Me thod 04/19/23 00:21 04/19/23 00:30 04/19/23 00:31 Temperature Pulse Rate 73 71 71 Pulse Rate [Pulse Oximeter] Respiratory Rate Blood Pressure 127/79 118/70 Blood Pressure [Ri ght Upper Arm] Pulse Oximetry 96 95 95 Oxygen Delivery Me thod 04/19/23 00:45 04/19/23 01:00 04/19/23 01:01 Temperature Pulse Rate 76 82 77 Pulse Rate [Pulse Oximeter] Respiratory Rate Blood Pressure 118/69 Blood Pressure [Ri ght Upper Arm] Pulse Oximetry 99 96 98 Oxygen Delivery Me thod 04/19/23 01:32 04/19/23 01:52 04/19/23 02:00 Temperature Pulse Rate 70 73 Pulse Rate [Pulse Oximeter] Respiratory Rate Blood Pressure 114/70 Blood Pressure [Ri ght Upper Arm] Pulse Oximetry 96 98 Oxygen Delivery Me thod 04/19/23 02:01 04/19/23 02:02 04/19/23 02:32 Temperature Pulse Rate 81 78 Pulse Rate [Pulse Oximeter] Respiratory Rate Blood Pressure 126/72 112/74 Blood Pressure [Ri ght Upper Arm] Pulse Oximetry 97 100 Oxygen Delivery Me thod 04/19/23 03:01 04/19/23 03:31 04/19/23 04:01 Temperature Pulse Rate Pulse Rate [Pulse Oximeter] Respiratory Rate Blood Pressure 131/86 127/72 130/70 Blood Pressure [Ri ght Upper Arm] Pulse Oximetry Oxygen Delivery Me od 04/19/23 05:01 04/19/23 05:02 04/19/23 05:15 Temperature Pulse Rate 80 88 77 Pulse Rate [Pulse Oximeter] Respiratory Rate Blood Pressure 115/71 Blood Pressure [Ri ght Upper Arm] Pulse Oximetry 96 97 [facility] 05:30 04/19/23 05:32 04/19/23 05:45 Temperature Pulse Rate 81 79 82 Pulse Rate [Pulse Oximeter] Respiratory Rate Blood Pressure 116/71 Blood Pressure [Ri ght Upper Arm] Pulse Oximetry 100 99 [facility] 04/[facility]/23 06:00 04/19/23 06:02 04/19/23 06:15 Temperature Pulse Rate 84 80 85 Pulse Rate [Pulse Oximeter] Respiratory Rate Blood Pressure 122/77 Blood Pressure [Ri ght Upper Arm] Pulse Oximetry 100 100 [facility] 04/[facility]/23 06:30 04/19/23 06:31 04/19/23 06:45 Temperature Pulse Rate 85 82 85 Pulse Rate [Pulse Oximeter] Respiratory Rate Blood Pressure 119/69 Blood Pressure [Ri ght Upper Arm] Pulse Oximetry 98 98 100 [facility] 04/[facility]/23 07:00 04/19/23 07:01 Temperature Pulse Rate 89 88 Pulse Rate [Pulse Oximeter] Respiratory Rate Blood Pressure 123/73 Blood Pressure [Ri ght Upper Arm] Pulse Oximetry 99 99 Oxygen Delivery Me od <Melissa Chambers MD - Last Filed: 04/20/23 13:41> Vital Signs, click to edit/add: Vital Signs - 24 hr 04/18/23 22:05 04/18/23 22:06 04/18/23 22:08 Temperature 97.0 F L Pulse Rate 79 74 Pulse Rate [Pulse Oximeter] 78 Respiratory Rate 16 Blood Pressure 131/82 Blood Pressure [Ri ght Upper Arm] 131/82 Pulse Oximetry 96 98 98 [facility] 04/18/23 22:15 04/18/23 22:25 04/18/23 22:30 Temperature Pulse Rate 77 76 76 Pulse Rate [Pulse Oximeter] Respiratory Rate Blood Pressure 116/70 Blood Pressure [Ri ght Upper Arm] Pulse Oximetry 95 97 95 Oxygen Delivery Me thod 04/18/23 22:32 04/18/23 22:45 04/18/23 22:47 Temperature Pulse Rate 77 76 80 Pulse Rate [Pulse Oximeter] Respiratory Rate Blood Pressure 119/68 115/76 Blood Pressure [Ri ght Upper Arm] Pulse Oximetry 96 96 98 Oxygen Delivery Me thod 04/18/23 22:48 04/18/23 23:00 04/18/23 23:01 Temperature Pulse Rate 74 74 74 Pulse Rate [Pulse Oximeter] Respiratory Rate Blood Pressure 116/67 Blood Pressure [Ri ght Upper Arm] Pulse Oximetry 100 97 98 Oxygen Delivery Me thod 04/18/23 23:15 04/18/23 23:17 04/18/23 23:30 Temperature Pulse Rate 70 71 71 Pulse Rate [Pulse Oximeter] Respiratory Rate Blood Pressure 121/71 Blood Pressure [Ri ght Upper Arm] Pulse Oximetry 95 97 98 Oxygen Delivery Me thod 04/18/23 23:31 04/18/23 23:33 04/18/23 23:45 Temperature Pulse Rate 72 76 70 Pulse Rate [Pulse Oximeter] Respiratory Rate Blood Pressure 113/70 Blood Pressure [Ri ght Upper Arm] Pulse Oximetry 97 90 99 Oxygen Delivery Me thod 04/19/23 00:00 04/19/23 00:02 04/19/23 00:02 Temperature Pulse Rate 70 70 70 Pulse Rate [Pulse Oximeter] Respiratory Rate Blood Pressure 107/49 L 107/49 L Blood Pressure [Ri ght Upper Arm] Pulse Oximetry 97 98 98 Oxygen Delivery Me thod 04/19/23 00:02 04/19/23 00:02 04/19/23 00:19 Temperature Pulse Rate 70 70 71 Pulse Rate [Pulse Oximeter] Respiratory Rate Blood Pressure 107/49 L 107/49 L Blood Pressure [Ri ght Upper Arm] Pulse Oximetry 98 98 96 Oxygen Delivery Me thod 04/19/23 00:21 04/19/23 00:30 04/19/23 00:31 Temperature Pulse Rate 73 71 71 Pulse Rate [Pulse Oximeter] Respiratory Rate Blood Pressure 127/79 118/70 Blood Pressure [Ri ght Upper Arm] Pulse Oximetry 96 95 95 Oxygen Delivery Me thod 04/19/23 00:45 04/19/23 01:00 04/19/23 01:01 Temperature Pulse Rate 76 82 77 Pulse Rate [Pulse Oximeter] Respiratory Rate Blood Pressure 118/69 Blood Pressure [Ri ght Upper Arm] Pulse Oximetry 99 96 98 [facility] 04[facility]/23 01:32 04/19/23 01:52 04/19/23 02:00 Temperature Pulse Rate 70 73 Pulse Rate [Pulse Oximeter] Respiratory Rate Blood Pressure 114/70 Blood Pressure [Ri ght Upper Arm] Pulse Oximetry 96 98 [facility] 04/[facility]/23 02:01 04/19/23 02:02 04/19/23 02:32 Temperature Pulse Rate 81 78 Pulse Rate [Pulse Oximeter] Respiratory Rate Blood Pressure 126/72 112/74 Blood Pressure [Ri ght Upper Arm] Pulse Oximetry 97 100 O[facility] Delivery [facility] 04/19/23 03:01 04/19/23 03:31 04/19/23 04:01 Temperature Pulse Rate Pulse Rate [Pulse Oximeter] Respiratory Rate Blood Pressure 131/86 127/72 130/70 Blood Pressure [Ri ght Upper Arm] Pulse Oximetry [facility] 04/[facility]/23 05:01 04/19/23 05:02 04/19/23 05:15 Temperature Pulse Rate 80 88 77 Pulse Rate [Pulse Oximeter] Respiratory Rate Blood Pressure 115/71 Blood Pressure [Ri ght Upper Arm] Pulse Oximetry 96 97 100 [facility] 04/19/23 05:30 04/19/23 05:32 04/19/23 05:45 Temperature Pulse Rate 81 79 82 Pulse Rate [Pulse Oximeter] Respiratory Rate Blood Pressure 116/71 Blood Pressure [Ri ght Upper Arm] Pulse Oximetry 100 99 100 [facility] 04/[facility]/23 06:00 04/19/23 06:02 04/19/23 06:15 Temperature Pulse Rate 84 80 85 Pulse Rate [Pulse Oximeter] Respiratory Rate Blood Pressure 122/77 Blood Pressure [Ri ght Upper Arm] Pulse Oximetry 100 100 100 [facility] 04/19/23 06:30 04/19/23 06:31 04/19/23 06:45 Temperature Pulse Rate 85 82 85 Pulse Rate [Pulse Oximeter] Respiratory Rate Blood Pressure 119/69 Blood Pressure [Ri ght Upper Arm] Pulse Oximetry 98 98 100 [facility] 04/19/23 07:00 04/19/23 07:01 Temperature Pulse Rate 89 88 Pulse Rate [Pulse Oximeter] Respiratory Rate Blood Pressure 123/73 Blood Pressure [Ri ght Upper Arm] Pulse Oximetry 99 99 Oxygen Delivery Me thod <Dru Bland - Last Filed: 04/19/23 07:57> Documenting provider has reviewed patient's vital signs: yes <Melissa Chambers MD - Last Filed: 04/20/23 13:41> Course Course ED Course: At this time differential diagnosis does include but is not limited to stroke, sepsis, UTI, behavioral disorder, hypokalemia, FL. will place IV, give 1 L of normal saline, labs to include lactate CBC comprehensive panel CRP troponin magnesium. At this time I do not think we are dealing with a sepsis given the very reassuring vital signs and lack of fever. She is protecting her airway and is calm at this time. Nursing staff notes a straight cath was done and she has stated ow my knee?. <Melissa Chambers MD - Last Filed: 04/20/23 13:41> Reevaluation(s) Reevaluation #1: Head CT is negative for any evidence of acute stroke. Further, patient is moving all 4 extremities. At this time she does obey commands in opened her eyes. She is preferring to sleep. I do not note evidence of a stroke. Her potassium has returned at 3.0. She does have a positive UA from a previous visit on 04/13. She has known ESBL then this is 1 of the organisms. There is a 2nd organism that had 30,000 colonies noted. Her urinalysis is positive tonight but she has no evidence of an elevated white count or fever. EKG is unchanged from previous in her troponin is negative. Her blood pressure and pulse have been normal since she has been here. Patient is acting sedated and does arouse to a loud voice and painful stimuli. I am thinking that this is most likely secondary to polypharmacy. We did ascertain that a net received her medications from staff at [facility]. She had previously been on morphine, Ativan and gabapentin. However I do not note that it tonight. We will try to find out med list from [facility]. Will start potassium riders 10 mEq x4. Will speak to her [facility] as patient will need to board here while we are waiting for bed availability on the floor. <Melissa Chambers MD - Last Filed: 04/20/23 13:41> Reevaluation #2: With nursing assistance we were able to remove close. Patient has no evidence of underlying trauma. Palpation down thoracic and lumbar spine without pain. She does have darkened areas in the of folds of the groin and I suspect yeast at this time. She herself was cooperative as we were changing her. She even was able to lift her hips off the bed and have in order to for us to get the brief on. She seems to be a little bit more awake but does prefer to sleep by rolling on her side as soon as we are done with changing her into a gown. Pupils continued to be approximately 3.5 mm and are reactive. Nicotine patch noted on her back and was left in place. <Melissa Chambers MD - Last Filed: 04/20/23 13:41> Reevaluation #3: We have been unable to obtain current medication list from [facility]. The list that we give us does not include the nicotine patch which she clearly has on her back. They are unsure if she is on narcotics. I am worried that and that is presenting here with he polypharmacy issues. She does not appear to have had a stroke given the fact that she is slowly improving, moving all extremities and has a reassuring head CT. She does not appear to be septic with no fever and normal white count. Her urine sample from 125 but did grow out E coli but under 100,000 colonies and she is known ESBL colonized. Had the pleasure of speaking to the [facility] physician as we are unable to admit at this time. He agrees that would not treat with that particular urine finding. Does suggest awaiting on the tox screen as well as the addition of the ABG even though bicarb is currently normal. Suggest BiPAP if hypercapnic. Otherwise, continued monitoring as she does appear to be slowly improving. <Melissa Chambers MD - Last Filed: 04/20/23 13:41> Vital Signs Vital signs: Initial Vital Signs Temperature 97.0 F L 04/18/23 22:05 Temperature Source Temporal Artery Scan 04/18/23 22:05 Pulse Rate 78 04/18/23 22:05 Respiratory Rate 16 04/18/23 22:05 Blood Pressure 131/82 04/18/23 22:05 Blood Pressure Mean 98 04/18/23 22:05 Blood Pressure Position Supine 04/18/23 22:05 Pulse Oximetry 96 04/18/23 22:05 Oxygen Delivery Method Room Air 04/18/23 22:05 Vital Signs Temperature 97.0 F L 04/18/23 22:05 Pulse Rate 78 04/18/23 22:05 Respiratory Rate 16 04/18/23 22:05 Blood Pressure 131/82 04/18/23 22:05 Pulse Oximetry 96 04/18/23 22:05 Oxygen Delivery Method Room Air 04/18/23 22:05 Temperature 97.0 F L 04/18/23 22:05 Pulse Rate 88 04/19/23 12:21 Respiratory Rate 18 04/19/23 12:21 Blood Pressure 110/67 04/19/23 12:21 Pulse Oximetry 96 04/19/23 12:21 Oxygen Delivery Method Room Air 04/19/23 12:21 <Melissa Chambers MD - Last Filed: 04/20/23 13:41> Initial Vital Signs Temperature 97.0 F L 04/18/23 22:05 Temperature Source Temporal Artery Scan 04/18/23 22:05 Pulse Rate 78 04/18/23 22:05 Respiratory Rate 16 04/18/23 22:05 Blood Pressure 131/82 04/18/23 22:05 Blood Pressure Mean 98 04/18/23 22:05 Blood Pressure Position Supine 04/18/23 22:05 Pulse Oximetry 96 04/18/23 22:05 Oxygen Delivery Method Room Air 04/18/23 22:05 Vital Signs Temperature 97.0 F L 04/18/23 22:05 Pulse Rate 78 04/18/23 22:05 Respiratory Rate 16 04/18/23 22:05 Blood Pressure 131/82 04/18/23 22:05 Pulse Oximetry 96 04/18/23 22:05 Oxygen Delivery Method Room Air 04/18/23 22:05 Temperature 97.0 F L 04/18/23 22:05 Pulse Rate 88 04/19/23 12:21 Respiratory Rate 18 04/19/23 12:21 Blood Pressure 110/67 04/19/23 12:21 Pulse Oximetry 96 04/19/23 12:21 Oxygen Delivery Method Room Air 04/19/23 12:21 <Dru Bland DO - Last Filed: 04/19/23 07:57> Medications Administered Medications: Discontinued Medications Generic Name Dose Route Start Last Admin Trade Name Freq PRN Reason Stop Dose Admin Amlodipine Besylate 10 mg 04/19/23 14:00 04/19/23 14:25 Amlodipine 10 Mg Tablet PO 10 mg DAILY ERIC Administration Artificial Tears 1 drop 04/19/23 14:15 04/19/23 14:33 Carboxymethylcellulose (Refresh Plus) Tears EYE-BOTH 1 drop QID PRN Administration Aspirin 81 mg 04/19/23 14:00 04/19/23 14:26 Aspirin 81 Mg Tablet Ec PO 81 mg DAILY ERIC Administration Duloxetine HCl 120 mg 04/19/23 14:00 04/19/23 14:24 Duloxetine [address] PO 120 mg DAILY ERIC Administration Hydrochlorothiazide 25 mg 04/19/23 14:00 04/19/23 14:26 Hydrochlorothiazide 25 Mg Tablet PO 25 mg DAILY ERIC Administration Sodium Chloride 1,000 mls @ 1,000 mls/hr 04/18/23 22:08 04/19/23 07:45 0.9 % Sodium Chloride 1000 Ml IV 04/18/23 23:07 Infused .Q1H ERIC Infusion Potassium Chloride 10 meq in 100 mls @ 100 mls/hr 04/19/23 00:15 04/19/23 07:45 Potassium Chloride IVPB 04/19/23 05:44 Infused Q90M ERIC Infusion Nicotine 1 patch 04/19/23 14:00 04/19/23 14:28 Nicotine 21 Mg Patch TRANSDERMA 1 patch DAILY ERIC Administration Risperidone 2 mg 04/19/23 14:00 04/19/23 14:29 Risperidone 1 Mg Tablet PO 2 mg BID ERIC Administration Sitagliptin Phosphate 100 mg 04/19/23 14:00 04/19/23 14:32 Sitagliptin Phosphate 50 Mg Tablet PO 100 mg DAILY ERIC Administration Vitamin D 25 mcg 04/19/23 14:00 04/19/23 14:27 Cholecalciferol (Vitamin D3) 25 Mcg Tablet (1000 Unit) PO 25 mcg DAILY ERIC Administration <Melissa Chambers MD - Last Filed: 04/20/23 13:41> Discontinued Medications Generic Name Dose Route Start Last Admin Trade Name Ktq PRN Reason Stop Dose Admin Amlodipine Besylate 10 mg 04/19/23 14:00 04/19/23 14:25 Amlodipine 10 Mg Tablet PO 10 mg DAILY ERIC Administration Artificial Tears 1 drop 04/19/23 14:15 04/19/23 14:33 Carboxymethylcellulose (Refresh Plus) Tears EYE-BOTH 1 drop QID PRN Administration Aspirin 81 mg 04/19/23 14:00 04/19/23 14:26 Aspirin 81 Mg Tablet Ec PO 81 mg DAILY ERIC Administration Duloxetine HCl 120 mg 04/19/23 14:00 04/19/23 14:24 Duloxetine [address] PO 120 mg DAILY ERIC Administration Hydrochlorothiazide 25 mg 04/19/23 14:00 04/19/23 14:26 Hydrochlorothiazide 25 Mg Tablet PO 25 mg DAILY ERIC Administration Sodium Chloride 1,000 mls @ 1,000 mls/hr 04/18/23 22:08 04/19/23 07:45 0.9 % Sodium Chloride 1000 Ml IV 04/18/23 23:07 Infused .Q1H ERIC Infusion Potassium Chloride 10 meq in 100 mls @ 100 mls/hr 04/19/23 00:15 04/19/23 07:45 Potassium Chloride IVPB 04/19/23 05:44 Infused Q90M ERIC Infusion Nicotine 1 patch 04/19/23 14:00 04/19/23 14:28 Nicotine 21 Mg Patch TRANSDERMA 1 patch DAILY ERIC Administration Risperidone 2 mg 04/19/23 14:00 04/19/23 14:29 Risperidone 1 Mg Tablet PO 2 mg BID ERIC Administration Sitagliptin Phosphate 100 mg 04/19/23 14:00 04/19/23 14:32 Sitagliptin Phosphate 50 Mg Tablet PO 100 mg DAILY ERIC Administration Vitamin D 25 mcg 04/19/23 14:00 04/19/23 14:27 Cholecalciferol (Vitamin D3) 25 Mcg Tablet (1000 Unit) PO 25 mcg DAILY ERIC Administration <Dru Bland, - Last Filed: 04/19/23 07:57> MDM - Altered Mental Status MDM Narrative Medical decision making narrative: 1. Altered mentation-at this time given reassuring lab findings, continued vital signs, normal CT I suspect that the altered mentation is secondary to medications. We have not had luck with finding out and that is correct medication list. Nursing did find a few medications but none that I would suspect would be causing this sort of altered mentation. Evidently this has been ongoing since according to EMS upon their arrival. There is also no evidence of ketoacidosis, underlying acute coronary syndrome or any evidence of trauma. We did briefly consider use of Narcan or flumazenil but at this time given the fact that the patient is protecting her airway, has reassuring vital signs do not feel that this would be in the best interest of the patient if she she has been on chronic sedating medications. Patient does have zolpidem, risperidone, melatonin on a med list here at the hospital. She was known to receive melatonin tonight. Again, this is a very challenging situation as we are unable to ascertain exactly what she is on and if she continues to use oxycodone and Ativan. I did a check of the [facility] and patient does not have any Ativan or oxycodone since the spring. 2. Type 2 diabetes with insulin use-blood sugars normal here in the emergency room. Given the fact that she has not had anything to drink or eat this evening will do acute 2 hour Accu-Cheks during the night. If she is able to eat will need to restart insulin. No evidence of ketoacidosis. 3. Hypokalemia-10 mEq bumps of potassium being given throughout the evening x4. Starting potassium 3.0 4. Abnormal urinalysis-urinalysis from 04/13 shows 2 separate organisms. One is ESBL which is noted to have been previously found. The other is in E coli but growing in colonies less than 100,000. I spoke with hospitalist on-call and this time suggests not treating with antibiotic as was the decision when the result route came back on April 14. Will continue to monitor. 5. Disposition-patient is currently boarding in the emergency room awaiting a bed on the floor. In the meantime she is resting comfortably in the ER. She received 1 L of normal saline. Will continue to monitor. If she continues to wake up in to eat she will need to be restarted on her insulin. Currently awaiting: ABG, tox screen. <Melissa Chambers MD - Last Filed: 04/20/23 13:41> Patient was signed out to me at the start of my shift by my colleague Dr. Chambers. Patient is pending admission for hold hurt mental status. We currently do not have any beds available. Initiated a thought her symptoms were secondary to polypharmacy and Ativan but her urine drug strain shows nothing and her system. The ABG was also ordered and it came back with a normal pH, pCO2 of 47, PO2 at 74. Patient is satting well at this time. Her pCO2 is only mildly elevated and is actually lower than previously when she has been in the emergency department. I do not believe this is the cause of her symptoms. At 07:00 I went to go speak to the patient again and she woke up and told me she does not know where she was but then started falling back asleep and would not answer any further questions. Patient was signed out to my colleague Dr. Thomas at the end of my shift pending admission <Dru Bland DO - Last Filed: 04/19/23 07:57> Medical Records Attestation: I reviewed the patient's medical records. <Melissa Chambers MD - Last Filed: 04/20/23 13:41> Lab Data Attestation: I reviewed the patient's lab results. <Melissa Chambers MD - Last Filed: 04/20/23 13:41> Labs: Lab Results 04/18/23 04/18/23 04/18/23 Range/Units 22:23 22:30 22:45 WBC 6.94 (4.50-11.00) K/uL RBC 4.07 (4.00-5.20) m/uL Hgb 12.2 (12.0-16.0) gm/dL Hct 36.9 (33.0-51.0) % MCV 91 (80-100) fL MCH 30 (26-34) pg MCHC 33 (32-36) gm/dL RDW Coeff of Rosa 12.0 (11.5-15.5) % Plt Count 262 (140-440) K/uL Neut % (Auto) 52.9 (42.0-72.0) % Lymph % (Auto) 35.2 (20-44) % [place] % (Auto) 7.8 (0.0-11.0) % Eos % (Auto) 2.9 (0.0-7.0) % Baso % (Auto) 0.3 (0.0-3.0) % Neut # (Auto) 3.68 (1.7-7.0) K/uL Lymph # (Auto) 2.44 (0.90-2.90) K/uL [place] # (Auto) 0.50 (0.00-0.90) K/UL Eos # (Auto) 0.20 (0.00-0.50) K/uL Baso # (Auto) 0.02 (0.00-0.30) K/uL Abs Immat Gran (auto) 0.06 (0.00-0.30) K/uL Imm/Tot Granulo (auto) 0.9 % ABG pH (7.35-7.45) ABG pCO2 (35-45) mmHG ABG pO2 (80-105) mmHG ABG HCO3 (21-28) mmol/L ABG Total CO2 (21-30) mmol/l ABG O2 Saturation (92-100) % ABG Base Excess (-3.0-3.0) mmol/L Carboxyhemoglobin (0.0-5.0) % Sodium 139 (135-149) mmol/L Potassium 3.0 L (3.6-5.1) mmol/L Chloride 102 (96-114) mmol/L Carbon Dioxide 28 (20-32) mmol/L Anion Gap 9 (7-15) mEq/L BUN 7 (7-30) mg/dL Creatinine 0.6 (0.5-1.5) mg/dL Estimated GFR 96 ml/min Glucose 90 (60-115) mg/dL Lactate 2.1 H (0.5-1.9) mmol/L Calcium 9.2 (8.4-10.6) mg/dL Magnesium 1.7 (1.5-2.6) mg/dL Total Bilirubin 0.7 (0.1-1.5) mg/dL AST 56 H (12-35) U/L ALT 28 (4-35) U/L Alkaline Phosphatase 65 (40-150) U/L Troponin I < 0.01 L (0.01-0.04) ng/mL C-Reactive Protein 0.5 (0.5-1.0) mg/dL Total Protein 6.8 (6.0-8.3) g/dL Albumin 3.7 (3.3-5.0) g/dL Urine Color Yellow (Yellow) Urine Appearance Slightly Cloudy A (Clear) Urine pH 7.0 (5.0-8.5) Ur Specific [place] 1.010 (1.000-1.030) Urine Protein Negative (Negative) Urine Glucose (UA) Negative (Negative) Urine Ketones Negative (Negative) Urine Blood 2+ A (Negative) Urine Nitrite Negative (Negative) Urine Bilirubin Negative (Negative) Urine Urobilinogen 0.2 (0.2-1.0) Ur Leukocyte Esterase 2+ A (Negative) Urine RBC 0-2 (0-2) Urine WBC 5-10 A (0-5) Ur Squamous Epith Cells Few (None-Few) Urine Bacteria Few A (None) Urine Opiates Screen Negative (Negative) Ur Oxycodone Screen Negative (Negative) Urine Methadone Screen Negative (Negative) Ur Barbiturates Screen Negative (Negative) U Tricyclic Antidepress Negative (Negative) Ur Phencyclidine Scrn Negative (Negative) Ur Amphetamines Screen Negative (Negative) U Methamphetamines Scrn Negative (Negative) U Benzodiazepines Scrn Negative (Negative) Urine Cocaine Screen Negative (Negative) U Marijuana (THC) Screen Negative (Negative) Ur Drug Screen Comment See Note Lab Acknowledgement POC Glucose 78 (60-115) mg/dl 04/18/23 04/19/23 04/19/23 Range/Units 22:47 01:03 01:45 WBC (4.50-11.00) K/uL RBC (4.00-5.20) m/uL Hgb (12.0-16.0) gm/dL Hct (33.0-51.0) % MCV (80-100) fL MCH (26-34) pg MCHC (32-36) gm/dL RDW Coeff of Rosa (11.5-15.5) % Plt Count (140-440) K/uL Neut % (Auto) (42.0-72.0) % Lymph % (Auto) (20-44) % [place] % (Auto) (0.0-11.0) % Eos % (Auto) (0.0-7.0) % Baso % (Auto) (0.0-3.0) % Neut # (Auto) (1.7-7.0) K/uL Lymph # (Auto) (0.90-2.90) K/uL [place] # (Auto) (0.00-0.90) K/UL Eos # (Auto) (0.00-0.50) K/uL Baso # (Auto) (0.00-0.30) K/uL Abs Immat Gran (auto) (0.00-0.30) K/uL Imm/Tot Granulo (auto) % ABG pH 7.41 (7.35-7.45) ABG pCO2 47 H (35-45) mmHG ABG pO2 74.1 L (80-105) mmHG ABG HCO3 29 H (21-28) mmol/L ABG Total CO2 27 (21-30) mmol/l ABG O2 Saturation 95 (92-100) % ABG Base Excess 3.8 H (-3.0-3.0) mmol/L Carboxyhemoglobin 1.5 (0.0-5.0) % Sodium (135-149) mmol/L Potassium (3.6-5.1) mmol/L Chloride (96-114) mmol/L Carbon Dioxide (20-32) mmol/L Anion Gap (7-15) mEq/L BUN (7-30) mg/dL Creatinine (0.5-1.5) mg/dL Estimated GFR ml/min Glucose (60-115) mg/dL Lactate (0.5-1.9) mmol/L Calcium (8.4-10.6) mg/dL Magnesium (1.5-2.6) mg/dL Total Bilirubin (0.1-1.5) mg/dL AST (12-35) U/L ALT (4-35) U/L Alkaline Phosphatase (40-150) U/L Troponin I (0.01-0.04) ng/mL C-Reactive Protein (0.5-1.0) mg/dL Total Protein (6.0-8.3) g/dL Albumin (3.3-5.0) g/dL Urine Color (Yellow) Urine Appearance (Clear) Urine pH (5.0-8.5) Ur Specific [place] (1.000-1.030) Urine Protein (Negative) Urine Glucose (UA) (Negative) Urine Ketones (Negative) Urine Blood (Negative) Urine Nitrite (Negative) Urine Bilirubin (Negative) Urine Urobilinogen (0.2-1.0) Ur Leukocyte Esterase (Negative) Urine RBC (0-2) Urine WBC (0-5) Ur Squamous Epith Cells (None-Few) Urine Bacteria (None) Urine Opiates Screen (Negative) Ur Oxycodone Screen (Negative) Urine Methadone Screen (Negative) Ur Barbiturates Screen (Negative) U Tricyclic Antidepress (Negative) Ur Phencyclidine Scrn (Negative) Ur Amphetamines Screen (Negative) U Methamphetamines Scrn (Negative) U Benzodiazepines Scrn (Negative) Urine Cocaine Screen (Negative) U Marijuana (THC) Screen (Negative) Ur Drug Screen Comment Lab Acknowledgement Test Added Test Added POC Glucose (60-115) mg/dl <Melissa Chambers MD - Last Filed: 04/20/23 13:41> Lab Results 04/18/23 04/18/23 04/18/23 Range/Units 22:23 22:30 22:45 WBC 6.94 (4.50-11.00) K/uL RBC 4.07 (4.00-5.20) m/uL Hgb 12.2 (12.0-16.0) gm/dL Hct 36.9 (33.0-51.0) % MCV 91 (80-100) fL MCH 30 (26-34) pg MCHC 33 (32-36) gm/dL RDW Coeff of Rosa 12.0 (11.5-15.5) % Plt Count 262 (140-440) K/uL Neut % (Auto) 52.9 (42.0-72.0) % Lymph % (Auto) 35.2 (20-44) % [place] % (Auto) 7.8 (0.0-11.0) % Eos % (Auto) 2.9 (0.0-7.0) % Baso % (Auto) 0.3 (0.0-3.0) % Neut # (Auto) 3.68 (1.7-7.0) K/uL Lymph # (Auto) 2.44 (0.90-2.90) K/uL [place] # (Auto) 0.50 (0.00-0.90) K/UL Eos # (Auto) 0.20 (0.00-0.50) K/uL Baso # (Auto) 0.02 (0.00-0.30) K/uL Abs Immat Gran (auto) 0.06 (0.00-0.30) K/uL Imm/Tot Granulo (auto) 0.9 % ABG pH (7.35-7.45) ABG pCO2 (35-45) mmHG ABG pO2 (80-105) mmHG ABG HCO3 (21-28) mmol/L ABG Total CO2 (21-30) mmol/l ABG O2 Saturation (92-100) % ABG Base Excess (-3.0-3.0) mmol/L Carboxyhemoglobin (0.0-5.0) % Sodium 139 (135-149) mmol/L Potassium 3.0 L (3.6-5.1) mmol/L Chloride 102 (96-114) mmol/L Carbon Dioxide 28 (20-32) mmol/L Anion Gap 9 (7-15) mEq/L BUN 7 (7-30) mg/dL Creatinine 0.6 (0.5-1.5) mg/dL Estimated GFR 96 ml/min Glucose 90 (60-115) mg/dL Lactate 2.1 H (0.5-1.9) mmol/L Calcium 9.2 (8.4-10.6) mg/dL Magnesium 1.7 (1.5-2.6) mg/dL Total Bilirubin 0.7 (0.1-1.5) mg/dL AST 56 H (12-35) U/L ALT 28 (4-35) U/L Alkaline Phosphatase 65 (40-150) U/L Troponin I < 0.01 L (0.01-0.04) ng/mL C-Reactive Protein 0.5 (0.5-1.0) mg/dL Total Protein 6.8 (6.0-8.3) g/dL Albumin 3.7 (3.3-5.0) g/dL Urine Color Yellow (Yellow) Urine Appearance Slightly Cloudy A (Clear) Urine pH 7.0 (5.0-8.5) Ur Specific [place] 1.010 (1.000-1.030) Urine Protein Negative (Negative) Urine Glucose (UA) Negative (Negative) Urine Ketones Negative (Negative) Urine Blood 2+ A (Negative) Urine Nitrite Negative (Negative) Urine Bilirubin Negative (Negative) Urine Urobilinogen 0.2 (0.2-1.0) Ur Leukocyte Esterase 2+ A (Negative) Urine RBC 0-2 (0-2) Urine WBC 5-10 A (0-5) Ur Squamous Epith Cells Few (None-Few) Urine Bacteria Few A (None) Urine Opiates Screen Negative (Negative) Ur Oxycodone Screen Negative (Negative) Urine Methadone Screen Negative (Negative) Ur Barbiturates Screen Negative (Negative) U Tricyclic Antidepress Negative (Negative) Ur Phencyclidine Scrn Negative (Negative) Ur Amphetamines Screen Negative (Negative) U Methamphetamines Scrn Negative (Negative) U Benzodiazepines Scrn Negative (Negative) Urine Cocaine Screen Negative (Negative) U Marijuana (THC) Screen Negative (Negative) Ur Drug Screen Comment See Note Lab Acknowledgement POC Glucose 78 (60-115) mg/dl 04/18/23 04/19/23 04/19/23 Range/Units 22:47 01:03 01:45 WBC (4.50-11.00) K/uL RBC (4.00-5.20) m/uL Hgb (12.0-16.0) gm/dL Hct (33.0-51.0) % MCV (80-100) fL MCH (26-34) pg MCHC (32-36) gm/dL RDW Coeff of Rosa (11.5-15.5) % Plt Count (140-440) K/uL Neut % (Auto) (42.0-72.0) % Lymph % (Auto) (20-44) % [place] % (Auto) (0.0-11.0) % Eos % (Auto) (0.0-7.0) % Baso % (Auto) (0.0-3.0) % Neut # (Auto) (1.7-7.0) K/uL Lymph # (Auto) (0.90-2.90) K/uL [place] # (Auto) (0.00-0.90) K/UL Eos # (Auto) (0.00-0.50) K/uL Baso # (Auto) (0.00-0.30) K/uL Abs Immat Gran (auto) (0.00-0.30) K/uL Imm/Tot Granulo (auto) % ABG pH 7.41 (7.35-7.45) ABG pCO2 47 H (35-45) mmHG ABG pO2 74.1 L (80-105) mmHG ABG HCO3 29 H (21-28) mmol/L ABG Total CO2 27 (21-30) mmol/l ABG O2 Saturation 95 (92-100) % ABG Base Excess 3.8 H (-3.0-3.0) mmol/L Carboxyhemoglobin 1.5 (0.0-5.0) % Sodium (135-149) mmol/L Potassium (3.6-5.1) mmol/L Chloride (96-114) mmol/L Carbon Dioxide (20-32) mmol/L Anion Gap (7-15) mEq/L BUN (7-30) mg/dL Creatinine (0.5-1.5) mg/dL Estimated GFR ml/min Glucose (60-115) mg/dL Lactate (0.5-1.9) mmol/L Calcium (8.4-10.6) mg/dL Magnesium (1.5-2.6) mg/dL Total Bilirubin (0.1-1.5) mg/dL AST (12-35) U/L ALT (4-35) U/L Alkaline Phosphatase (40-150) U/L Troponin I (0.01-0.04) ng/mL C-Reactive Protein (0.5-1.0) mg/dL Total Protein (6.0-8.3) g/dL Albumin (3.3-5.0) g/dL Urine Color (Yellow) Urine Appearance (Clear) Urine pH (5.0-8.5) Ur Specific [place] (1.000-1.030) Urine Protein (Negative) Urine Glucose (UA) (Negative) Urine Ketones (Negative) Urine Blood (Negative) Urine Nitrite (Negative) Urine Bilirubin (Negative) Urine Urobilinogen (0.2-1.0) Ur Leukocyte Esterase (Negative) Urine RBC (0-2) Urine WBC (0-5) Ur Squamous Epith Cells (None-Few) Urine Bacteria (None) Urine Opiates Screen (Negative) Ur Oxycodone Screen (Negative) Urine Methadone Screen (Negative) Ur Barbiturates Screen (Negative) U Tricyclic Antidepress (Negative) Ur Phencyclidine Scrn (Negative) Ur Amphetamines Screen (Negative) U Methamphetamines Scrn (Negative) U Benzodiazepines Scrn (Negative) Urine Cocaine Screen (Negative) U Marijuana (THC) Screen (Negative) Ur Drug Screen Comment Lab Acknowledgement Test Added Test Added POC Glucose (60-115) mg/dl <Dru Bland DO - Last Filed: 04/19/23 07:57> Imaging Data CT scan - head: Attestation: I have reviewed the pertinent imaging results. <Melissa Chambers MD - Last Filed: 04/20/23 13:41> My impression: By my read no evidence of intracranial bleed or stroke. <Melissa Chambers MD - Last Filed: 04/20/23 13:41> Radiologist's impression: Mild diffuse cerebral volume loss. The faith-white differentiation is maintained. No mass effect or midline shift. No acute intracranial hemorrhage or pathologic extra-axial fluid collection. Scattered hypoattenuation in the supratentorial white matter, suggestive of mild chronic microvascular ischemic changes. Dense intracranial atherosclerotic calcifications. Thinning of the right ocular lens. The calvarium is intact. The visualized paranasal sinuses and mastoid air cells are clear. IMPRESSION: No acute intracranial hemorrhage or mass effect. <Melissa Chambers MD - Last Filed: 04/20/23 13:41> ECG Data Attestation: I personally reviewed and interpreted this ECG as follows: <Melissa Chambers MD - Last Filed: 04/20/23 13:41> ECG interpretation date: 04/18/23 <Melissa Chambers MD - Last Filed: 04/20/23 13:41> Prior ECG tracings: available for review <Melissa Chambers MD - Last Filed: 04/20/23 13:41> Interpretation: By my read EKG shows sinus rhythm at a rate of 75. I do not note any acute ST or T-wave changes. This is largely unchanged from EKG from November of 2022 <Melissa Chambers MD - Last Filed: 04/20/23 13:41> Discharge Plan Discharge Clinical Impression: Hypokalemia Altered mental status Qualifiers: Altered mental status type: unspecified Qualified Code(s): R41.82 - Altered mental status, unspecified <Melissa Chambers MD - Last Filed: 04/20/23 13:41> Patient Disposition: Home, Self-Care <Melissa Chambers MD - Last Filed: 04/20/23 13:41> Condition: Improved <Melissa Chambers MD - Last Filed: 04/20/23 13:41> Instructions: Hypokalemia (ED), Altered Mental Status (ED) <Melissa Chambers MD - Last Filed: 04/20/23 13:41> Additional Instructions: Would recommend discontinuing the hydrochlorothiazide, keep her on 20 mEq twice a day of potassium. She should be seen by primary care and potassium rechecked sometime in the next week. Evaluation here was otherwise unremarkable, she returned to baseline mental status without specific intervention. <Melissa Chambers MD - Last Filed: 04/20/23 13:41> Prescriptions: No Action aspirin 81 mg tablet,delayed release (DR/EC) 81 mg PO DAILY latanoprost 0.005 % drops 1 drp OPHTHALMIC (EYE) HS Rx Instructions: BOTH EYES risperidone 2 mg tablet 2 mg PO BID famotidine 20 mg tablet 20 mg PO HS pantoprazole 40 mg tablet,delayed release (DR/EC) 40 mg PO DAILY dorzolamide-timolol 22.3-6.8 mg/mL drops 1 drp OPHTHALMIC (EYE) BID Rx Instructions: BOTH EYES hydrochlorothiazide 25 mg tablet 25 mg PO DAILY fluticasone propionate 50 mcg/actuation spray,suspension 2 spray INTRANASAL DAILY insulin aspart U-100 100 unit/mL (3 mL) insulin pen 1 - 7 unit SUBCUT BID@12,18 Rx Instructions: 0-7 UNITS PER SLIDING SCALE duloxetine 60 mg capsule,delayed release(DR/EC) 120 mg PO DAILY insulin glargine [Lantus Solostar U-100 Insulin] 100 unit/mL (3 mL) insulin pen 20 unit SUBCUT HS atorvastatin 10 mg tablet 10 mg PO HS nicotine 21 mg/24 hr patch 24 hour 1 patch topical DAILY Systane Ultra 0.4-0.3 % drops 1 drp ophthalmic (eye) QID Rx Instructions: BOTH EYES polyethylene glycol 3350 [Gavilax] 17 gram/dose powder 17 g PO DAILY Januvia 100 mg tablet 100 mg PO DAILY magnesium oxide 400 mg (241.3 mg magnesium) Tablet 400 mg PO BID Qty: 60 0RF torsemide 20 mg Tablet 20 mg PO DAILY@0800 Qty: 30 0RF acetaminophen 500 mg tablet 1,000 mg PO TID Qty: 180 0RF amlodipine 10 mg tablet 10 mg PO DAILY melatonin 3 mg tablet 6 mg PO HS lidocaine [AsperFlex (lidocaine)] 4 % adhesive patch,medicated 1 patch topical DAILY PRN Rx Instructions: may leave on for up to 12 hrs potassium chloride 20 mEq tablet,ER particles/crystals 20 meq PO BID cholecalciferol (vitamin D3) 25 mcg (1,000 unit) tablet 25 mcg PO DAILY ondansetron 4 mg tablet,disintegrating 4 mg PO Q8-12H PRN (Reason: nausea and vomiting) Qty: 10 0RF <Melsisa Chambers MD - Last Filed: 04/20/23 13:41> Follow Up/Referrals: Provider,Not a Local [Primary Care Provider] - <Melissa Chambers MD - Last Filed: 04/20/23 13:41> Stand Alone Forms: MyHealth Info Instructions <Melissa Chambers MD - Last Filed: 04/20/23 13:41>
--- NOTE | 2023-04-18 22:09 | CRLHL7_ITS ---
For Patients: As a result of the Century Cures Act, medical imaging exams and procedure reports are released immediately into your electronic medical record. You may view this report before your referring provider. If you have questions, please contact your health care provider. INDICATION: Altered mental status. TECHNIQUE: Noncontrast CT images of the brain. COMPARISON: CT brain 12/08/2022. FINDINGS: Mild diffuse cerebral volume loss. The faith-white differentiation is maintained. No mass effect or midline shift. No acute intracranial hemorrhage or pathologic extra-axial fluid collection. Scattered hypoattenuation in the supratentorial white matter, suggestive of mild chronic microvascular ischemic changes. Dense intracranial atherosclerotic calcifications. Thinning of the right ocular lens. The calvarium is intact. The visualized paranasal sinuses and mastoid air cells are clear. IMPRESSION: No acute intracranial hemorrhage or mass effect. Please note that all CT scans at this facility use dose modulation, iterative reconstruction, and/or weight-based dosing when appropriate to reduce radiation dose to as low as reasonably achievable. Dictated by Regan Vang MD @ 04/18/2023 10:33:26 PM (Electronically Signed)
[2023-04-18] MEDS: 0.9 % SODIUM CHLORIDE 1000 ml 1,000 ML IV (22:10)
--- OUTSIDE RECORDS SUMMARY | 2023-04-18 22:21 | XMS_ITS | Clinical Summary ---
Author Name Unknown Organization [employer] [facility] Address [place], [place] [address] Care Team Providers Care Coding Analyst Name Role Phone Sebastian Griffiths MD Primary Care Provider Unavailab [facility], [place] Unavailable Allergies Active Allergy Reactions Criticality Noted [...] right shoulder injury, left knee inury, cervical RIPENING ROOM HAND reviewed 05/14/2019 Alcohol abuse 10/16/2015 07/22/2022 Arteriosclerosis [...] No Known Problems Son 2 Dania alonzo [place] Relation Name Status Comments Brother 1 Alive [...] Documents on File Type Date Recorded 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
[2023-04-18 22:30] LABS: Lactate* 2.1 mmol/L (0.5-1.9)
[2023-04-18 22:34] LABS: Glucose, Point-of-Care* 78 mg/dl (60-115)
--- NOTE | 2023-04-18 22:36 | ED.NURSE ---
Pt offered juice, pt did drink some apple juice with a straw when directed to do so.
[2023-04-18 22:52] LABS: Chloride* 102 mmol/L (96-114)
[2023-04-18 22:53] LABS: Albumin* 3.7 g/dL (3.3-5.0)
[2023-04-18 22:55] LABS: Creatinine* 0.6 mg/dL (0.5-1.5); Estimated Glomerular Filt Rate 96 ml/min
[2023-04-18 22:56] LABS: Alkaline Phosphatase* 65 U/L (40-150); Aspartate Amino Transferase* 56 U/L (12-35); Bilirubin Total* 0.7 mg/dL (0.1-1.5); Blood Urea Nitrogen* 7 mg/dL (7-30); Glucose* 90 mg/dL (60-115); Total Protein* 6.8 g/dL (6.0-8.3)
[2023-04-18 22:57] LABS: Appearance Urine Slightly Cloudy (Clear); Bilirubin Urine Negative (Negative); Blood Urine 2+ (Negative); Color Urine Yellow (Yellow); Glucose Urine Negative (Negative); Ketones Urine Negative (Negative); Leukocyte Esterase Urine 2+ (Negative); Nitrite Urine Negative (Negative); Protein Urine Negative (Negative); Urobilinogen Urine 0.2 (0.2-1.0)
[2023-04-18 23:07] LABS: Bacteria Urine Few; RBC Urine 0-2 (0-2); Squamous Epithelial Cell Urine Few (None-Few)
[2023-04-18 23:13] LABS: Magnesium* 1.7 mg/dL (1.5-2.6)
[2023-04-18 23:17] LABS: Alanine Aminotransferase* 28 U/L (4-35); Anion Gap 9 mEq/L (7-15); C Reactive Protein* 0.5 mg/dL (0.5-1.0); Calcium* 9.2 mg/dL (8.4-10.6); Carbon Dioxide* 28 mmol/L (20-32); Sodium* 139 mmol/L (135-149)
[2023-04-18 23:36] LABS: Troponin I* < 0.01 ng/mL (0.01-0.04)
[2023-04-18 23:37] LABS: Basophils Absolute Auto 0.02 K/uL (0.00-0.30); Basophils Percent Auto 0.3 % (0.0-3.0); Eosinophils Percent Auto 2.9 % (0.0-7.0); Hematocrit 36.9 % (33.0-51.0); Hemoglobin* 12.2 gm/dL (12.0-16.0); Immature Granulocytes Abs Auto 0.06 K/uL (0.00-0.30); Immature Granulocytes Pct Auto 0.9 %; Lymphocytes Absolute Auto 2.44 K/uL (0.90-2.90); Lymphocytes Percent Auto 35.2 % (20-44); Mean Corpuscular HGB Conc 33 gm/dL (32-36); Mean Corpuscular Hemoglobin 30 pg (26-34); Mean Corpuscular Volume 91 fL (80-100); Monocytes Percent Auto 7.8 % (0.0-11.0); Neutrophils Absolute Auto 3.68 K/uL (1.7-7.0); Neutrophils Percent Auto 52.9 % (42.0-72.0); Platelet Count* 262 K/uL (140-440); Red Blood Count 4.07 m/uL (4.00-5.20); Slide Review Reflex No; White Blood Count* 6.94 K/uL (4.50-11.00)
[2023-04-19] VITALS (43 sets, daily range): BP systolic 107–131; BP diastolic 49–86; PULSE 70–93; RESP 18; O2SAT 95–100
[2023-04-19] MEDS: POTASSIUM CHLORIDE 10 MEQ/100 ML PIGGYBACK 100 MEQ IVPB ×4 (00:30→04:31)
[2023-04-19 01:45] LABS: Amphetamine Screen Urine Negative (Negative); Barbiturate Screen Urine Negative (Negative); Benzodiazepines Screen Urine Negative (Negative); Cannabinoid Screen Urine Negative (Negative); Cocaine Screen Urine Negative (Negative); Methadone Screen Urine Negative (Negative); Methamphetamines Screen Urine Negative (Negative); Opiate Screen Urine Negative (Negative); Oxycodone Screen Urine Negative (Negative); Phencyclidine Screen Urine Negative (Negative); Tricyclic Antidepressant Urine Negative (Negative)
[2023-04-19 01:58] LABS: ABG PCO2 47 mmHG (35-45); Base Excess ABG 3.8 mmol/L (-3.0-3.0); Carboxyhemoglobin* 1.5 % (0.0-5.0); HCO3 ABG 29 mmol/L (21-28); Oxygen Saturation ABG 95 % (92-100); PO2 ABG 74.1 mmHG (80-105); TCO2 ABG 27 mmol/l (21-30); pH ABG 7.41 (7.35-7.45)
--- NOTE | 2023-04-19 08:02 | ED.NURSE ---
Pt glucose taken through CGM. Glucose 67. Will give juice to pt. Pt A&O to self, time and year, but not to where she is.
--- NOTE | 2023-04-19 08:10 | ED.NURSE ---
Juice offered to pt, pt drank all of orange juice.
--- NOTE | 2023-04-19 08:37 | ED.NURSE ---
Pt is up in chair and eating breakfast
[2023-04-19] MEDS: DULOXETINE 30 MG CAPSULE DR 120 MG PO (14:24)
[2023-04-19] MEDS: AMLODIPINE 10 MG TABLET PO (14:25)
[2023-04-19] MEDS: hydroCHLOROthiazide 25 MG TABLET PO (14:26)
[2023-04-19] MEDS: ASPIRIN 81 MG TABLET EC PO (14:26)
[2023-04-19] MEDS: NICOTINE 21 MG PATCH 1 PATCH TRANSDERMA (14:28)
[2023-04-19] MEDS: risperiDONE 1 MG TABLET 2 MG PO (14:29)
[2023-04-19] MEDS: SITAGLIPTIN PHOSPHATE 50 MG TABLET 100 MG PO (14:32)
[2023-04-19] MEDS: CARBOXYMETHYLCELLULOSE (REFRESH PLUS) TEARS 1 DROP EYE-BOTH (14:33)
--- NOTE | 2023-04-19 15:19 | ED.NURSE ---
Pt report given to Moriah at [facility].
== END 2023-04-19 15:17 | disposition home or self-care (01) ==
PROVIDERS: Emergency Provider Family Medicine
DX: R41.82 Altered mental status, unspecified (principal); E87.6 Hypokalemia; E11.9 Type 2 diabetes mellitus without complications
CPT/HCPCS: 36415; 36600; 70450; 80053; 80306; 81001; 82803; 82947; 83605; 83735; 84484; 85025; 86140; 87086; 87186; 96365; 99285; 99291; A9270; J3480; J7030; S4990

== ENCOUNTER 2023-04-27 11:25 | Emergency (ER) | payer BC, SELFPAY ==
[2023-04-27] VITALS (12 sets, daily range): BP systolic 124–156; BP diastolic 70–113; PULSE 96–111; RESP 18; TEMP 36.3; O2SAT 94–98
--- OUTSIDE RECORDS SUMMARY | 2023-04-27 11:58 | XMS_ITS | CCD ---
Author Name Unknown Organization Unknown Care Team Providers Care Hvac Instructor Name Role Phone Donn MICHAUD, Miguel A Primary Care Provider Unavaila ble Unavailable Chronic Care Management Unavaila ble Summary Purpose DataExchange Insurance Providers Payer name Policy type / Coverage type Covered democrat ID Effective Begin Date Effective End Date [place] Medicaid Blue Cross/Blue Shield [id number] 2022 Unknown [place] Blue Cross/Blue [place] [id number] 2022 Unknown Family history Mother Diagnosis Age At Onset Glaucoma Unknown Brother Diagnosis Age At Onset Visual disturbance/blindness Unknown Glaucoma Unknown Father Diagnosis Age At Onset Stomach cancer Unknown Social History Social History Element Codes Description Effec tive Dates Tobacco history SNOMED CT: 31445119 Current every day smoker 07/01/[address]: 046069433 No Alcohol Consum ption 07/01/2022 Allergies, Adverse Reactions, Alerts Substance Reaction Codes Entered Date Inactivated Date Status Bee Sting Unknown 03/03/2022 No Inactive Date Ac tive NSAIDS Unknown 03/03/2022 No Inactive Date Ac tive PENICILLINS Unknown 03/03/2022 No Inactive Date Active losartan RxNorm: 060794 03/03/2022 No Inactive Da te Active aspirin Unknown 03/03/2022 No Inactive Date Ac tive tramadol RxNorm: 94933 03/03/2022 No Inactive Marek e Active Other: [...] Headache ICD-10: R51.9 ICD-9: 784.0 03/03/2022 Active terminal gauger (current) use of insulin ICD-10: Z79.4 03/03 Active Medications Medication Codes Instructions Start Date Stop Date Status Fill Instructions Humalog KwikPen (U-100) Insulin 100 unit/mL subcutaneous RxNorm: 1873625 Inject 0-7 Unit(s) Subcutaneous Inject per sliding scale BID before lunch and dinner 04/25/19 24 025 Active melatonin 3 mg tablet RxNorm: 565200 Take 1 Tablet(s) Oral QHS every night at bedtime 02/29/20 23 024 Active 02/28/2023 PROACTIVE REFILL REQUEST FOR NEXT CYCLE PLEASE THANK YOU potassium chloride ER 20 mEq tablet,extended release(part/cryst) RxNorm: 7933977 Take 2 Tablet(s) Oral QD 02/29/20 23 024 Active 02/28/2023 PROACTIVE REFILL REQUEST FOR NEXT CYCLE PLEASE THANK YOU atorvastatin 10 mg tablet RxNorm: 539961 Take 1 Tablet(s) Oral QD 01/06/20 23 024 Active 01/05/2023 PROACTIVE REFILL REQUEST FOR NEXT CYCLE PLEASE THANK YOU fluticasone propionate 50 mcg/actuation nasal spray,suspension RxNorm: 8937648 [place] 2 [place] Nasal QD - Daily both nostrils 12/20/19 No Stop Date Active nicotine 21 mg/24 hr daily transdermal patch RxNorm: Apply 1 Transdermal QD 12/02/19 023 Inactive nicotine 21 mg/24 hr daily transdermal patch RxNorm: Apply 1 Transdermal QD 11/29/19 23 023 Inactive loratadine 10 mg tablet RxNorm: 887948 Take 1 Tablet(s) Oral QD as needed 11/23/19 23 024 Active loratadine 10 mg tablet RxNorm: 685656 Take 1 Tablet(s) Oral QD as needed 11/23/19 23 023 Inactive nicotine 21 mg/24 hr daily transdermal patch RxNorm: Apply 1 Transdermal QD 11/16/19 23 023 Inactive aspirin 81 mg tablet,delayed release RxNorm: 505597 Take 1 Tablet(s) Oral QD 11/15/19 024 Active 2ND REQUEST 11/11/2022 NEED KIM PLEASE THANK YOU nicotine 21 mg/24 hr daily transdermal patch RxNorm: Apply 1 Transdermal QD 11/02/19 23 023 Inactive amlodipine 10 mg tablet RxNorm: 648120 Take 1 Tablet(s) Oral QD 10/20/19 23 024 Active nicotine 21 mg/24 hr daily transdermal patch RxNorm: APPLY 1 PATCH ONCE DAILY 10/18/19 23 023 Inactive Pen Needle 30 gauge x 5/16 RxNorm: Use 1 Unit(s) TID Use as directed to administer insulin up to 3x daily 10/12/19 23 023 Inactive cholecalciferol (vitamin D3) 25 mcg (1,000 unit) tablet RxNorm: 850558 TAKE 1 TABLET BY MOUTH DAILY (1,000 UNITS) 09/14/19 23 024 Active 09/13/2022 PROACTIVE REFILL REQUEST FOR NEXT CYCLE PLEASE THANK YOU Systane Ultra 0.4 %-0.3 % eye drops RxNorm: 430503 Instill 1 Drop(s) Both eyes QID 09/06/19 No Stop Date Active Lantus Solostar U-100 Insulin 100 unit/mL (3 mL) subcutaneous pen RxNorm: 990075 Inject 20 Unit(s) Subcutaneous QHS every night at bedtime 09/01/19 No Stop Date Active diclofenac 1 % topical gel RxNorm: 478042 Apply 4 Gram(s) Topical QID (bilateral knees or area of pain per patient's request) 09/01/19 No Stop Date Active acetaminophen 325 mg tablet RxNorm: 236484 Take 1 Tablet(s) Oral Q4H every four hours as needed 09/01/19 No Stop Date Active Humalog KwikPen (U-100) Insulin 100 unit/mL subcutaneous RxNorm: 9386571 Unit(s) Subcutaneous Inject per sliding scale BID before lunch and dinner 09/01/19 23 024 Inactive Aspercreme (lidocaine) 4 % topical patch RxNorm: 2371488 Apply 1 Patch Topical QD (on for 12 hours, off for 12 hours) 09/01/19 No Stop Date Active Pen Needle 30 gauge x 5/16 RxNorm: Use as directed to administer insulin up to 3x daily 09/01/19 23 023 Inactive melatonin 3 mg tablet RxNorm: 450610 Take 2 Tablet(s) Oral QHS every night at bedtime as needed (may repeat once) 09/01/19 23 023 Inactive Januvia 100 mg tablet RxNorm: 067935 Take 1 Tablet(s) Oral QD 07/23/19 23 024 Active 2nd REQUEST FOR REFILLS 07-22-2022 NEED KIM PLEASE = THANK YOU duloxetine 60 mg capsule,delayed release RxNorm: 887378 Take 2 Capsule(s) Oral QD 07/23/19 23 024 Active 2nd REQUEST FOR REFILLS 5-5-2023 NEED KIM PLEASE = THANK YOU pantoprazole 40 mg tablet,delayed release RxNorm: 510359 TAKE 1 TABLET BY MOUTH EVERY MORNING BEFORE BREAKFAST 07/23/19 23 024 Active 2nd REQUEST FOR REFILLS 07-22-2022 NEED KIM PLEASE = THANK YOU magnesium oxide 400 mg (241.3 mg magnesium) tablet RxNorm: 422839 Take 1 Tablet(s) Oral BID 07/23/19 23 024 Active 2nd REQUEST FOR REFILLS 07-22-2022 NEED KIM PLEASE = THANK YOU acetaminophen 500 mg tablet RxNorm: 434171 Take 2 Tablet(s) Oral TID 07/23/19 23 024 Active 2nd REQUEST FOR REFILLS 07-22-2022 NEED KIM PLEASE = THANK YOU risperidone 2 mg tablet RxNorm: 353167 Take 1 Tablet(s) Oral BID 07/23/19 23 024 Active 2nd REQUEST FOR REFILLS 07-22-2022 NEED KIM PLEASE = THANK YOU hydrochlorothiazide 25 mg tablet RxNorm: 049143 Take 1 Tablet(s) Oral QD 07/23/19 23 024 Active 2nd REQUEST FOR REFILLS 07-22-2022 NEED KIM PLEASE = THANK YOU potassium chloride ER 10 mEq capsule,extended release RxNorm: 765071 TAKE 1 CAPSULE BY MOUTH TWICE DAILY WITH MEAL(S) 07/23/19 23 023 Inactive 2nd REQUEST FOR REFILLS 07-22-2022 NEED KIM PLEASE = THANK YOU buprenorphine HCl 2 mg sublingual tablet RxNorm: 556906 Take 1 Tablet(s) Sublingual TID 07/19/19 23 023 Inactive buprenorphine HCl 2 mg sublingual tablet RxNorm: 769530 Take 1 Tablet(s) Sublingual TID 07/19/19 23 023 Inactive oxycodone 5 mg tablet RxNorm: 3755016 Take 1 Tablet(s) Oral BID x7 days then decrease to 1 tab once daily x 7 days then d/c 07/09/19 23 023 Inactive latanoprost 0.005 % eye drops RxNorm: 285413 Take 1 Drop(s) Both eyes QHS every night at bedtime 07/07/19 23 024 Active buprenorphine 5 mcg/hour weekly transdermal patch RxNorm: 618315 Apply 1 Transdermal once every 7 days 07/06/19 023 Inactive zolpidem 5 mg tablet RxNorm: 978778 Take 1 Tablet(s) Oral QHS every night at bedtime 07/06/19 023 Inactive buprenorphine 5 mcg/hour weekly transdermal patch RxNorm: 996484 Apply 1 Transdermal once every 7 days 07/06/19 023 Inactive start after stops oxycodone. belbuca film not covered famotidine 20 mg tablet RxNorm: 525546 Give 1 Tablet(s) Oral QHS every night at bedtime 07/02/19 024 Active torsemide 20 mg tablet RxNorm: 837009 Take 1 Tablet(s) Oral QAM every morning 07/02/19 024 Active dorzolamide 22.3 mg-timolol 6.8 mg/mL eye drops RxNorm: 8230417 Apply 1 Drop(s) Both eyes BID 07/02/19 024 Active acetaminophen 500 mg tablet RxNorm: 951855 Take 2 Tablet(s) Oral TID 07/02/19 023 Inactive amlodipine 5 mg tablet RxNorm: 447833 Take 1 Tablet(s) Oral QD 07/02/19 023 Inactive nicotine 21 mg/24 hr daily transdermal patch RxNorm: 573860 Apply 1 Patch Transdermal QD Remove old patch prior to placing the new one 07/02/19 023 Inactive gabapentin 600 mg tablet RxNorm: 733795 Take 1 Tablet(s) Oral TID 07/02/19 023 Inactive risperidone 2 mg tablet RxNorm: 182192 Take 1 Tablet(s) Oral BID 07/02/19 023 Inactive pantoprazole 40 mg intravenous solution RxNorm: 405511 Take 1 Tablet(s) Intravenous QAM every morning 07/02/19 023 Inactive Januvia 100 mg tablet RxNorm: 521504 Take 1 Tablet(s) Oral QD 07/02/19 23 023 Inactive atorvastatin 10 mg tablet RxNorm: 437832 Take 1 Tablet(s) Oral QHS every night at bedtime 07/02/19 23 023 Inactive potassium chloride ER 10 mEq tablet,extended release RxNorm: 509252 Take 1 Tablet(s) Oral BID 07/02/19 23 023 Inactive Belbuca 75 mcg buccal film RxNorm: 6358386 Take 1/2 film (37.5mcg) (cut diagonally) BID (start AFTER stopping oxycodone) 07/02/19 023 Inactive start belbuca in 7 days AFTER patient stops oxycodone aspirin 81 mg tablet,delayed release RxNorm: 092611 Take 1 Tablet(s) Oral QD 07/02/19 023 Inactive latanoprost 0.005 % eye drops RxNorm: 681847 Take 1 Drop(s) Both eyes QHS every night at bedtime 07/02/19 023 Inactive Systane Ultra 0.4 %-0.3 % eye drops RxNorm: 477838 Apply 1 Drop(s) Both eyes QID 07/02/19 023 Inactive Lantus Solostar U-100 Insulin 100 unit/mL (3 mL) subcutaneous pen RxNorm: 586908 Take 40 Unit(s) Subcutaneous QHS every night at bedtime 07/02/19 23 023 Inactive oxybutynin chloride 5 mg tablet RxNorm: 209035 Administer 1 Tablet(s) Oral QHS every night at bedtime 07/02/19 023 Inactive Miralax 17 gram oral powder packet RxNorm: 809320 Take 1 Packet Oral QD 07/02/19 023 Inactive hydrochlorothiazide 25 mg tablet RxNorm: 361564 Take 1 Tablet(s) Oral QD 07/02/19 23 023 Inactive oxycodone 5 mg tablet RxNorm: 3054137 Take 1 Tablet(s) Oral TID then discontinue and start belbuca (d/c 10mg TID) 07/02/19 23 023 Inactive stop after 7 days duloxetine 60 mg capsule,delayed release RxNorm: 305145 Take 2 Capsule(s) Oral QD 07/02/19 23 023 Inactive Narcan 4 mg/actuation nasal spray RxNorm: 5312790 Give 1 [place] Nasal UD as directed 1 spray contents of ONE device into nostril, call 911. May repeat once with 2nd device 07/02/19 23 023 Inactive fluticasone propionate 50 mcg/actuation nasal spray,suspension RxNorm: 7474614 [place] 2 [place] Nasal QD - Daily both nostrils 07/02/19 23 023 Inactive magnesium oxide 400 mg (241.3 mg magnesium) tablet RxNorm: 301552 Give 1 Tablet(s) Oral BID 07/02/19 23 023 Inactive cholecalciferol (vitamin D3) 25 mcg (1,000 unit) tablet RxNorm: 664261 Take 1 Tablet(s) Oral QAM every morning 07/02/19 23 023 Inactive oxycodone 5 mg tablet RxNorm: 8218944 Take 2 Tablet(s) Oral TID PRN 06/04/19 23 023 Inactive azithromycin 250 mg tablet RxNorm: 716128 Take Tablet(s) Oral QD 2 Tablets PO QD x 1 Day - Then 1 Tablet PO QD x 4 Days 05/10/19 023 Inactive oxycodone 5 mg tablet RxNorm: 2879547 Take 2 Tablet(s) Oral TID /difficulty breathing 05/03/19 23 023 Inactive oxycodone 5 mg tablet RxNorm: 8796160 Take 2 Tablet(s) Oral TID /difficulty breathing 03/03/20 22 022 Inactive azithromycin 250 mg tablet RxNorm: 691060 Take Tablet(s) Oral QD 2 Tablets PO QD x 1 Day - Then 1 Tablet PO QD x 4 Days 05/10/19 23 023 Inactive zolpidem 5 mg tablet RxNorm: 464742 Take 1 Tablet(s) Oral QHS every night at bedtime as needed 03/28/19 023 Inactive Medication Administered No Medication Administered data Procedures Procedure Codes Date BEHAV CHNG SMOKING 3-[address]: 2 32662648 CPT-4: 72460 06/29/2022 Reason For Visit No Reason For Visit data Plan of Care Planned Activity Notes Codes Status Date Referral: [facility] WPtel: [id number] [place], [place] [id number] Referral Records Received 07/18/2022 Instructions Comment Date Rena is a resident a [facility].?? Previously was seen by doctor in [place].?? First [facility] visit 03/10.?? Arthritis/pain complaints and anxiety are her biggest concerns.?? Johnnie just (in 2020). 2 sons - son Korey visits (From [facility]).?? 10/27/2022
--- OUTSIDE RECORDS SUMMARY | 2023-04-27 11:59 | XMS_ITS | Clinical Summary ---
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
[2023-04-27] MEDS: ACETAMINOPHEN 500 MG TABLET 1000 MG PO (12:25)
[2023-04-27 12:30] LABS: Lactate* 1.9 mmol/L (0.5-1.9)
[2023-04-27 12:36] LABS: Basophils Absolute Auto 0.02 K/uL (0.00-0.30); Basophils Percent Auto 0.3 % (0.0-3.0); Eosinophils Absolute Auto 0.09 K/uL (0.00-0.50); Eosinophils Percent Auto 1.5 % (0.0-7.0); Hemoglobin* 11.6 gm/dL (12.0-16.0); Immature Granulocytes Abs Auto 0.03 K/uL (0.00-0.30); Immature Granulocytes Pct Auto 0.5 %; Lymphocytes Percent Auto 14.4 % (20-44); Mean Corpuscular HGB Conc 32 gm/dL (32-36); Mean Corpuscular Hemoglobin 30 pg (26-34); Mean Corpuscular Volume 94 fL (80-100); Monocytes Percent Auto 15.1 % (0.0-11.0); Neutrophils Percent Auto 68.2 % (42.0-72.0); Platelet Count* 203 K/uL (140-440); RDW Coefficient of Variation % 12.5 % (11.5-15.5); Red Blood Count 3.85 m/uL (4.00-5.20); White Blood Count* 6.16 K/uL (4.50-11.00)
[2023-04-27 12:37] LABS: Slide Review Reflex No
--- NOTE | 2023-04-27 12:37 | ED_ITS ---
HPI - General Adult General Chief complaint: Dizziness/Vertigo Stated complaint: Dizzy, numbness in face Time Seen by Provider: 04/27/23 11:27 Source: patient History of Present Illness HPI narrative: Patient is a 73-year-old female with a complicated medical history, resident at [facility], presents today with sudden onset dizziness that occurred a couple of hours prior to presenting. She describes the room spinning around her. She is unsure how long it lasted. She states that now she feels better. She denies nausea or vomiting. She is very concerned because she has numbness on her face: Both sides of the mouth and just under both eyes. The areas are small, about the size of her finger tip. She states that she does not have a headache. She denies changes in her vision or hearing. She states that she recently did have gastroenteritis with vomiting and diarrhea, that has resolved. Asked the patient if she was having chest pain or abdominal pain she said no. And in the next sentence she asked me for pain medication for her belly pain. When asked her if she was indeed having belly pain she said it is not so bad, but she would still like some medication. She denies new abdominal pain, states that it is always there. Related Data Home Medications Medication Instructions Recorded Confirmed aspirin 81 mg tablet,delayed 81 mg PO DAILY 10/19/21 04/27/23 release dorzolamide 22.3 mg-timolol 6.8 1 drp ophthalmic (eye) BID 10/19/21 04/27/23 mg/mL eye drops duloxetine 60 mg capsule,delayed 120 mg PO DAILY 10/19/21 04/27/23 release famotidine 20 mg tablet 20 mg PO HS 10/19/21 04/27/23 fluticasone propionate 50 2 spray intranasal DAILY 10/19/21 04/27/23 mcg/actuation nasal spray,suspension hydrochlorothiazide 25 mg tablet 25 mg PO DAILY 10/19/21 04/27/23 insulin aspart U-100 100 unit/mL 1 - 7 unit subcut BID@12,18 10/19/21 04/27/23 (3 mL) subcutaneous pen insulin glargine 100 unit/mL (3 20 unit subcut HS 10/19/21 04/27/23 mL) subcutaneous pen (Lantus Solostar U-100 Insulin) latanoprost 0.005 % eye drops 1 drp ophthalmic (eye) HS 10/19/21 04/27/23 pantoprazole 40 mg tablet,delayed 40 mg PO DAILY 10/19/21 04/27/23 release risperidone 2 mg tablet 2 mg PO BID 10/19/21 04/27/23 atorvastatin 10 mg tablet 10 mg PO HS 03/13/22 04/27/23 nicotine 21 mg/24 hr daily 1 patch topical DAILY 03/13/22 04/27/23 transdermal patch peg 400-propylene glycol 0.4 %-0.3 1 drp ophthalmic (eye) QID 03/13/22 04/27/23 % eye drops (Systane Ultra) polyethylene glycol 3350 17 17 g PO DAILY 03/13/22 04/19/23 gram/dose oral powder (Gavilax) sitagliptin phosphate 100 mg 100 mg PO DAILY 03/13/22 04/27/23 tablet (Januvia) amlodipine 10 mg tablet 10 mg PO DAILY 12/08/22 04/27/23 lidocaine 4 % topical patch 1 patch topical DAILY PRN 12/08/22 04/27/23 (AsperFlex (lidocaine)) melatonin 3 mg tablet 6 mg PO HS 12/08/22 04/27/23 cholecalciferol (vitamin D3) 25 25 mcg PO DAILY 04/19/23 04/19/23 mcg (1,000 unit) tablet potassium chloride 20 mEq 20 meq PO BID 04/19/23 04/27/23 tablet,extended release(part/cryst) diclofenac sodium 1 % topical gel 4 g topical QID PRN 04/27/23 04/27/23 Previous Rx's Medication Instructions Recorded acetaminophen 500 mg tablet 1,000 mg (2 x 500 mg) PO TID #180 03/16/22 tabs magnesium oxide 400 mg (241.3 mg 400 mg PO BID #60 tabs 03/16/22 magnesium) tablet torsemide 20 mg tablet 20 mg PO DAILY@0800 #30 tabs 03/16/22 ondansetron 4 mg disintegrating 4 mg PO Q8-12H PRN nausea and 04/13/23 tablet vomiting #10 tabs Allergies Allergy/AdvReac Type Severity Reaction Status Date / Time aspirin Allergy Unknown Verified 04/27/23 11:39 losartan Allergy Unknown Verified 04/27/23 11:39 tramadol Allergy Unknown Verified 04/27/23 11:39 varenicline Allergy Unknown Verified 04/27/23 11:39 bee venom protein (honey bee) Allergy Verified 04/27/23 11:39 ketorolac [From Toradol] Allergy Verified 04/27/23 11:39 NSAIDS (Non-Steroidal Allergy Verified 04/27/23 11:39 Anti-Inflamma Penicillins Allergy Verified 04/27/23 11:39 Review of Systems Status of ROS: Reports: 10 or more systems reviewed and unremarkable except as noted in History and below [facility] Medical History Altered mental status ?R41.82 - Altered mental status, unspecified (ICD-10) Type 2 diabetes mellitus ?E11.9 - Type 2 diabetes mellitus without complications (ICD-10) Sleep apnea with hypersomnolence ?G47.10 - Hypersomnia, unspecified (ICD-10) ?G47.30 - Sleep apnea, unspecified (ICD-10) Hepatic steatosis ?K76.0 - Fatty (change of) liver, not elsewhere classified (ICD-10) Physical deconditioning ?R53.81 - Other malaise (ICD-10) Polypharmacy ?Z79.899 - Other nursing home (current) drug therapy (ICD-10) Chronic, continuous use of opioids ?F11.90 - Opioid use, unspecified, uncomplicated (ICD-10) Heart failure ?I50.9 - Heart failure, unspecified (ICD-10) Osteoarthritis ?M19.90 - Unspecified osteoarthritis, unspecified site (ICD-10) Degenerative disc disease, lumbar ?M51.36 - Other intervertebral disc degeneration, lumbar region (ICD-10) Anxiety, generalized ?F41.1 - Generalized anxiety disorder (ICD-10) Antisocial personality disorder ?F60.2 - Antisocial personality disorder (ICD-10) Back pain ?M54.9 - Dorsalgia, unspecified (ICD-10) Chronic pain syndrome ?G89.4 - Chronic pain syndrome (ICD-10) Nicotine dependence ?F17.200 - Nicotine dependence, unspecified, uncomplicated (ICD-10) Borderline personality disorder ?F60.3 - Borderline personality disorder (ICD-10) Asthma ?J45.909 - Unspecified asthma, uncomplicated (ICD-10) COPD (chronic obstructive pulmonary disease) ?J44.9 - Chronic obstructive pulmonary disease, unspecified (ICD-10) Diabetes mellitus type 2 in obese ?E11.69 - Type 2 diabetes mellitus with other specified complication (ICD-10) ?E66.9 - Obesity, unspecified (ICD-10) Hypertension, essential ?I10 - Essential (primary) hypertension (ICD-10) Obesity ?E66.9 - Obesity, unspecified (ICD-10) Surgical History History of total knee arthroplasty ?Z96.659 - Presence of unspecified artificial knee joint (ICD-10) History of cholecystectomy ?Z90.49 - Acquired absence of other specified parts of digestive tract (ICD- 10) Family History Father Stomach cancer Brother Heart disease Social History Narrative: Patient is a resident of [facility]. She tells me she has been smoking 2 or 3 cigarettes per day. She is attempting to quit. She does not drink alcohol. Her healthcare power of assistant attorney general would be her son Korey Miles, code status is full. What is your current living situation?: I presently have a place to live Problems where you live: no known problems Problems where you live details: no known problems In the past 12 months, utilities in danger of being shut off: unable to answer In past 12 months, lack of transportation kept you from medical appts, meetings, work, or getting things needed for daily living: unable to answer In the past 12 mos, have been you worried that your food would run out before you had money to buy more?: unable to answer In the past 12 mos, the food you bought just didn't last and you didn't have money to buy more?: unable to answer Highest level of school completed/degree received: don't know Smoking Status: Former smoker What tobacco products do you use: cigarettes Smoking quit date/years: <= 15 years ago Do you use any of these nicotine containing products: None Nicotine containing products detail: quit today Second hand tobacco smoke exposure: No How often do you have a drink containing alcohol: never How often do you have six or more drinks on one occasion: Never AUDIT-C Alcohol total score: 0 Non-prescribed substance use: denies use Caffeine: Yes How often does anyone, including family, friends and others, physically hurt you : unable to answer How often does anyone, including family, friends and others, insult or talk down to you: unable to answer How often does anyone, including family, friends and others, threaten you with harm: unable to answer How often does anyone, including family, friends and others, scream or curse at you: unable to answer service: No Exam Narrative: Exam Narrative: Patient is slightly tachycardic with a pulse of 111. Obese, well-developed patient in no acute distress. Alert and oriented. She is cooperative. Normal mood and affect. Patient speaks in full sentences without needing to catch their breath. HEENT: Normocephalic atraumatic. Pupils are equally round reactive to light. Extraocular muscles are intact. Conjunctivae are moist without any icterus noted. Drawn mucous membranes. Posterior pharynx is normal. Neck is soft without any lymphadenopathy or thyromegaly. No masses are appreciated. Cardiovascular: Heart is regular rate and rhythm S1 and S2 are present with a 1/6 systolic murmur. Lungs: Clear to auscultation bilaterally no wheezes rhonchi or rales are appreciated. Patient takes deep breaths without any discomfort. Abdomen: Soft and nontender nondistended with normal bowel sounds. No guarding or rebound. Extremities: Bilateral lower extremities are without edema. Normal DP and PT pulses. Skin: Well perfused without any obvious rashes. Const: Vital Signs, click to edit/add: Vital Signs - 24 hr 04/27/23 11:33 04/27/23 12:25 04/27/23 12:42 Temperature 97.4 F L Pulse Rate 100 Pulse Rate [Pulse Oximeter] 111 H Respiratory Rate 18 Blood Pressure Blood Pressure [Ri ght Upper Arm] 151/89 H Pulse Oximetry 94 98 97 Oxygen Delivery Me thod Room Air 04/27/23 12:45 04/27/23 13:00 04/27/23 13:15 Temperature Pulse Rate 100 100 98 Pulse Rate [Pulse Oximeter] Respiratory Rate Blood Pressure Blood Pressure [Ri ght Upper Arm] Pulse Oximetry 96 95 96 Oxygen Delivery Me thod 04/27/23 13:30 04/27/23 13:35 04/27/23 13:35 Temperature Pulse Rate 101 H 98 98 Pulse Rate [Pulse Oximeter] Respiratory Rate Blood Pressure Blood Pressure [Ri ght Upper Arm] Pulse Oximetry 97 96 96 Oxygen Delivery Dc thod 04/27/23 13:35 04/27/23 13:35 04/27/23 13:45 Temperature Pulse Rate 98 98 96 Pulse Rate [Pulse Oximeter] Respiratory Rate Blood Pressure Blood Pressure [Ri ght Upper Arm] Pulse Oximetry 96 96 97 Oxygen Delivery Dc thod 04/27/23 14:02 Temperature Pulse Rate Pulse Rate [Pulse Oximeter] Respiratory Rate Blood Pressure 150/113 H Blood Pressure [Ri ght Upper Arm] Pulse Oximetry Oxygen Delivery Dc thod Course Course ED Course: IV established and patient received a L of normal saline. She did pull out her IV at 1 point in time and that had to be reestablished. EKG, read by me, shows sinus tachycardia with a pulse of 108. CBC was unremarkable. Chemistries unremarkable. Normal LFTs and lipase. Normal troponin. UA showing trace leukocyte esterase and many bacteria. Patient was feeling better after fluids, she was eating while she was here without difficulty. Pulse did come down after fluid hydration. Vital Signs Vital signs: Initial Vital Signs Temperature 97.4 F L 04/27/23 11:33 Temperature Source Temporal Artery Scan 04/27/23 11:33 Pulse Rate 111 H 04/27/23 11:33 Respiratory Rate 18 04/27/23 11:33 Blood Pressure 151/89 H 04/27/23 11:33 Blood Pressure Mean 109 H 04/27/23 11:33 Blood Pressure Position Semi-Fowlers 04/27/23 11:33 Pulse Oximetry 94 04/27/23 11:33 Oxygen Delivery Method Room Air 04/27/23 11:33 Vital Signs Temperature 97.4 F L 04/27/23 11:33 Pulse Rate 111 H 04/27/23 11:33 Respiratory Rate 18 04/27/23 11:33 Blood Pressure 151/89 H 04/27/23 11:33 Pulse Oximetry 94 04/27/23 11:33 Oxygen Delivery Method Room Air 04/27/23 11:33 Temperature 97.4 F L 04/27/23 11:33 Pulse Rate 96 04/27/23 13:45 Respiratory Rate 18 04/27/23 11:33 Blood Pressure 150/113 H 04/27/23 14:02 Pulse Oximetry 97 04/27/23 13:45 Oxygen Delivery Method Room Air 04/27/23 11:33 Medications Administered Medications: Discontinued Medications Generic Name Dose Route Start Last Admin Trade Name Nalini PRN Reason Stop Dose Admin Acetaminophen 1,000 mg 04/27/23 11:45 04/27/23 12:25 Acetaminophen 500 Mg Tablet PO 04/27/23 11:46 1,000 mg ONCE ONE Administration Sodium Chloride 1,000 mls @ 1,000 mls/hr 04/27/23 11:45 04/27/23 13:22 0.9 % Sodium Chloride 1000 Ml IV 04/27/23 12:44 1,000 mls/hr .Q1H ERIC Administration Medical Decision Making MDM Narrative Medical decision making narrative: [age] year female with episode of dizziness now resolved, numb spots on her face of unclear etiology. Probable mild dehydration treated per above. Medical Records Medical records reviewed: Yes I reviewed the patient's medical records Lab Data Labs: Lab Results 04/27/23 04/27/23 Range/Units 12:17 12:38 WBC 6.16 (4.50-11.00) K/uL RBC 3.85 L (4.00-5.20) m/uL Hgb 11.6 L (12.0-16.0) gm/dL Hct 36.0 (33.0-51.0) % MCV 94 (80-100) fL MCH 30 (26-34) pg MCHC 32 (32-36) gm/dL RDW Coeff of Rosa 12.5 (11.5-15.5) % Plt Count 203 (140-440) K/uL Neut % (Auto) 68.2 (42.0-72.0) % Lymph % (Auto) 14.4 L (20-44) % [place] % (Auto) 15.1 H (0.0-11.0) % Eos % (Auto) 1.5 (0.0-7.0) % Baso % (Auto) 0.3 (0.0-3.0) % Neut # (Auto) 4.20 (1.7-7.0) K/uL Lymph # (Auto) 0.90 (0.90-2.90) K/uL [place] # (Auto) 0.90 (0.00-0.90) K/UL Eos # (Auto) 0.09 (0.00-0.50) K/uL Baso # (Auto) 0.02 (0.00-0.30) K/uL Abs Immat Gran (auto) 0.03 (0.00-0.30) K/uL Imm/Tot Granulo (auto) 0.5 % Sodium 135 (135-149) mmol/L Potassium 3.9 (3.6-5.1) mmol/L Chloride 106 (96-114) mmol/L Carbon Dioxide 21 (20-32) mmol/L Anion Gap 8 (7-15) mEq/L BUN 6 L (7-30) mg/dL Creatinine 0.6 (0.5-1.5) mg/dL Estimated GFR 96 ml/min Glucose 114 (60-115) mg/dL Lactate 1.9 (0.5-1.9) mmol/L Calcium 8.7 (8.4-10.6) mg/dL Total Bilirubin 0.7 (0.1-1.5) mg/dL Direct Bilirubin 0.4 (0.0-0.5) mg/dL AST 42 H (12-35) U/L ALT 30 (4-35) U/L Alkaline Phosphatase 104 (40-150) U/L Troponin I 0.01 (0.01-0.04) ng/mL Total Protein 7.1 (6.0-8.3) g/dL Albumin 3.8 (3.3-5.0) g/dL Lipase 141 (23-300) U/L Urine Color Yellow (Yellow) Urine Appearance Slightly Cloudy A (Clear) Urine pH 6.5 (5.0-8.5) Ur Specific [place] 1.015 (1.000-1.030) Urine Protein Negative (Negative) Urine Glucose (UA) Negative (Negative) Urine Ketones Negative (Negative) Urine Blood Negative (Negative) Urine Nitrite Negative (Negative) Urine Bilirubin Negative (Negative) Urine Urobilinogen 0.2 (0.2-1.0) Ur Leukocyte Esterase Trace A (Negative) Urine RBC 0-2 (0-2) Urine WBC 0-2 (0-5) Ur Squamous Epith Cells Few (None-Few) Urine Bacteria Many A (None) POC Troponin I 0.00 L (0.01-0.04) ng/ml Discharge Plan Discharge Clinical Impression: Dizziness, Dehydration, mild Patient Disposition: Home w/ Parent or Adult Condition: Improved Additional Instructions: Patient was found to be mildly dehydrated, treated with IV fluids. Feeling better after treatment. Prescriptions: No Action aspirin 81 mg tablet,delayed release (DR/EC) 81 mg PO DAILY latanoprost 0.005 % drops 1 drp OPHTHALMIC (EYE) HS Rx Instructions: BOTH EYES risperidone 2 mg tablet 2 mg PO BID famotidine 20 mg tablet 20 mg PO HS pantoprazole 40 mg tablet,delayed release (DR/EC) 40 mg PO DAILY dorzolamide-timolol 22.3-6.8 mg/mL drops 1 drp OPHTHALMIC (EYE) BID Rx Instructions: BOTH EYES hydrochlorothiazide 25 mg tablet 25 mg PO DAILY fluticasone propionate 50 mcg/actuation spray,suspension 2 spray INTRANASAL DAILY insulin aspart U-100 100 unit/mL (3 mL) insulin pen 1 - 7 unit SUBCUT BID@12,18 Rx Instructions: 0-7 UNITS PER SLIDING SCALE duloxetine 60 mg capsule,delayed release(DR/EC) 120 mg PO DAILY insulin glargine [Lantus Solostar U-100 Insulin] 100 unit/mL (3 mL) insulin pen 20 unit SUBCUT HS atorvastatin 10 mg tablet 10 mg PO HS nicotine 21 mg/24 hr patch 24 hour 1 patch topical DAILY Systane Ultra 0.4-0.3 % drops 1 drp ophthalmic (eye) QID Rx Instructions: BOTH EYES polyethylene glycol 3350 [Gavilax] 17 gram/dose powder 17 g PO DAILY Januvia 100 mg tablet 100 mg PO DAILY magnesium oxide 400 mg (241.3 mg magnesium) Tablet 400 mg PO BID Qty: 60 0RF torsemide 20 mg Tablet 20 mg PO DAILY@0800 Qty: 30 0RF acetaminophen 500 mg tablet 1,000 mg PO TID Qty: 180 0RF amlodipine 10 mg tablet 10 mg PO DAILY melatonin 3 mg tablet 6 mg PO HS lidocaine [AsperFlex (lidocaine)] 4 % adhesive patch,medicated 1 patch topical DAILY PRN Rx Instructions: may leave on for up to 12 hrs potassium chloride 20 mEq tablet,ER particles/crystals 20 meq PO BID cholecalciferol (vitamin D3) 25 mcg (1,000 unit) tablet 25 mcg PO DAILY ondansetron 4 mg tablet,disintegrating 4 mg PO Q8-12H PRN (Reason: nausea and vomiting) Qty: 10 0RF diclofenac sodium 1 % gel 4 g TOPICAL QID PRN Rx Instructions: knee pain Follow Up/Referrals: Provider,Not a Local [Primary Care Provider] - Stand Alone Forms: [employer] Info Instructions
--- NOTE | 2023-04-27 12:38 | ED.NURSE ---
Pt up to bedside commode, while she was up to commode she accidentally removed her IV. MD aware. Will attempt new IV placement.
[2023-04-27 12:47] LABS: Albumin* 3.8 g/dL (3.3-5.0)
[2023-04-27 12:49] LABS: Aspartate Amino Transferase* 42 U/L (12-35); Bilirubin Direct* 0.4 mg/dL (0.0-0.5); Bilirubin Total* 0.7 mg/dL (0.1-1.5); Total Protein* 7.1 g/dL (6.0-8.3)
[2023-04-27 12:50] LABS: Alanine Aminotransferase* 30 U/L (4-35); Alkaline Phosphatase* 104 U/L (40-150); Lipase* 141 U/L (23-300)
[2023-04-27 12:56] LABS: Appearance Urine Slightly Cloudy (Clear); Bilirubin Urine Negative (Negative); Blood Urine Negative (Negative); Color Urine Yellow (Yellow); Glucose Urine Negative (Negative); Ketones Urine Negative (Negative); Leukocyte Esterase Urine Trace (Negative); Nitrite Urine Negative (Negative); Protein Urine Negative (Negative); Specific Gravity Urine 1.015 (1.000-1.030); Urobilinogen Urine 0.2 (0.2-1.0); pH Urine 6.5 (5.0-8.5)
[2023-04-27 12:56] LABS: Anion Gap 8 mEq/L (7-15); Blood Urea Nitrogen* 6 mg/dL (7-30); Calcium* 8.7 mg/dL (8.4-10.6); Carbon Dioxide* 21 mmol/L (20-32); Chloride* 106 mmol/L (96-114); Creatinine* 0.6 mg/dL (0.5-1.5); Estimated Glomerular Filt Rate 96 ml/min; Glucose* 114 mg/dL (60-115); Potassium* 3.9 mmol/L (3.6-5.1); Sodium* 135 mmol/L (135-149)
[2023-04-27 13:02] LABS: Troponin I* 0.01 ng/mL (0.01-0.04)
[2023-04-27 13:14] LABS: RBC Urine 0-2 (0-2); Squamous Epithelial Cell Urine Few (None-Few); WBC Urine 0-2 (0-5)
[2023-04-27 13:15] LABS: Bacteria Urine Many
[2023-04-27] MEDS: 0.9 % SODIUM CHLORIDE 1000 ml 1,000 ML IV (13:22)
--- NOTE | 2023-04-27 14:31 | ED.NURSE ---
Call to [facility]. 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
== END 2023-04-27 14:53 | disposition home or self-care (01) ==
PROVIDERS: Emergency Provider Family Medicine
DX: R42 Dizziness and giddiness (principal); E86.0 Dehydration
CPT/HCPCS: 36415; 80048; 80076; 81001; 83605; 83690; 84484; 85025; 87086; 87186; 93005; 94761; 96360; 99284; A9270; J7030

== ENCOUNTER 2023-09-07 19:01 | Outpatient (CLI) | payer BC, SELFPAY ==
--- OUTSIDE RECORDS SUMMARY | 2023-09-09 06:43 | XMS_ITS | Clinical Summary ---
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 Active dorzolamide-timolo L (COSOPT) 2-0.5 % ophthalmic solution Place 1 Drop into both eyes 2 times daily. Active DULoxetine (CYMBALTA) 60 mg Delayed-release capsule Take 120 mg by mouth once daily. Active fluticasone (50 mcg per actuation) nasal solution (FLONASE) Inhale 2 Sprays to both nostrils once daily. Active latanoprost (XALATAN) 0.005 % ophthalmic solution Place 1 Drop into both eyes at bedtime. 1 Active pantoprazole (PROTONIX) 40 mg delayed-release tablet Take 40 mg by mouth once daily before a meal. 1 Active risperiDONE (RISPERDAL) 2 mg tablet Take 2 mg by mouth two times daily. 1 Active Januvia 100 mg tablet Take 100 mg by mouth once daily. 1 Active aspirin (ECOTRIN) 81 mg enteric coated tablet Take 81 mg by mouth once daily with a meal. Active atorvastatin (LIPITOR) 10 mg tablet Take 10 mg by mouth at bedtime. Active famotidine (PEPCID) 20 mg tablet Take 20 mg by mouth at bedtime. Active magnesium oxide (MAG-OX 400) 400 mg tablet Take 400 mg by mouth two times daily. Active nicotine 14 mg/24 hr (NICODERM; HABITROL) 14 mg/24 hr patch Apply 1 Patch on dry, clean, hairless skin once daily. 4 09/13/19 24 Active torsemide (DEMADEX) 20 mg tablet Take 20 mg by mouth once daily. Active cholecalciferol (Vitamin D) 1,000 unit tablet Take 1,000 units by mouth once daily. Active artificial tears, peg 400-propylene glycol, (Systane Ultra) 0.4-0.3 % drop ophthalmic Place 1 Drop into both eyes four times daily. Active lidocaine 4 % topical patchIndications:C hronic pain syndrome Apply 1 Patch on dry, [...] you are applying Voltaren gel. 10 Patch 3 Active diclofenac topical (VOLTAREN) 1 % gelIndications:Chr onic pain syndrome Apply 4 g topically to affected area(s) four times daily. Apply to bilateral knees or area per patient request. However, do not apply to same area where lidocaine patch is/has been in the last 24 hrs. 20 g 3 Active acetaminophen (TYLENOL) 325 mg tabletIndications: Chronic pain syndrome,Acute encephalopathy Take1 tablet by mouth every 4 hours as needed for pain. Max acetaminophen dose: 4000mg in 24 hrs. 80 Tablet 3 Active acetaminophen (TYLENOL EXTRA STRGTH) 500 mg tablet Take 1,000 mg by mouth three times daily. Max acetaminophen dose: 4000mg in 24 hrs. Active melatonin 3 mg tablet Take 3 mg by mouth at bedtime. Active nicotine 7 mg/24 hr (NICODERM; HABITROL) 7 mg/24 hr patch Apply 1 Patch on dry, clean, hairless skin once daily. 4 09/27/19 24 Active diphenhydrAMINE (BENADRYL) 25 mg capsule Take 25-50 mg by mouth every 8 hours if needed (allergy symptoms). Active gabapentin (NEURONTIN) 100 mg capsule Take 100 mg by mouth three times daily. Active potassium chloride (KLOR-CON M20) 20 mEq extended-release tablet (part/cryst) Take 40 mEq by mouth once daily with a meal. Active Cranberry Extract 200 mg cap Take 2 Capsules by mouth two times daily. Active Dextromethorphan HBr 15 mg/5 mL liqd Take 5-10 mL by mouth every 4 hours if needed (cough and congestion). Active dextromethorphan-g uaFENesin (Diabetic Tussin DM) (10-200 mg/5 mL) liquid Take 5-10 mL by mouth every 4 hours if needed (cough and congestion). Active ibuprofen (ADVIL; MOTRIN) 200 mg tablet Take 200-400 mg by mouth every 4 hours if needed. Max 8 tablets in 24 hours Active loratadine (CLARITIN) 10 mg tablet Take 10 mg by mouth once daily if needed for Allergy Symptoms. Active Milk of Magnesia 400 mg/5 mL suspension Take 15-30 mL by mouth once daily if needed. Active aluminum-magnesium hydroxide-simethic one (Antacid) 200-200-20 mg/5 mL suspension Take 5-10 mL by mouth as needed one time between meal and at bedtime Active loperamide (IMODIUM) 2 mg tablet Take 2-4 mg by mouth each time if needed for Diarrhea. Take 2 tablets (4mg) orally with 1st loose stool, then 1 tablet (2mg) with other loose stools. Max 8 tablets (16 mg) in 24 hrs. Active calcium carbonate (Tums) 200 mg calcium (500 mg) chewable tablet Take 2-4 tablets by mouth between meals and at bedtime as needed Active ondansetron (ZOFRAN ODT) [address] 4 mg on the tongue every 8 hours if needed for Nausea/Vomiting. Active hydroCHLOROthiazid e (HCTZ) 25 mg tablet Take 25 mg by mouth once daily. 09/08/19 24 Discontinued( Pharmacist change per medication history (E-cancel not sent)) insulin lispro, U-100, (HumaLOG KwikPen Insulin) 100 unit/mL inpn pen Inject 0-7 units subcutaneous two times daily before meals. 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 15 mL 3 09/08/19 24 Discontinued( Pharmacist change per medication history (E-cancel not sent)) melatonin 3 mg tabletIndications: Sleep deficient Take 2 Tablets (6 mg) by mouth at bedtime if needed, may repeat once for Sleep. 60 Tablet 3 09/08/19 24 Discontinued( Pharmacist change per medication history (E-cancel not sent)) WalkerIndications: Chronic pain syndrome Walker with wheels,seat,hand brakes,and basket for home use. 1 Each 3 09/08/19 24 Discontinued( Pharmacist change per medication history (E-cancel not sent)) Active Problems Problem Noted Date Diagnosed Date Septic shock 09/08/2023 Chronic hepatitis C without hepatic coma 023 [...] right shoulder injury, left knee inury, cervical [employer] reviewed 05/14/2019 Alcohol abuse 10/16/2015 07/22/2022 Arteriosclerosis [...] 03/26/2009 023 Hypertension, essential, benign 06/05/2003 07/22/2022 Encounters Date Type Department Care Team Description 09/08/2023 12:25 AM CDT - 09/08/2023 8:25 PM CDT Hospital Encounter [facility] [address] [place] [address] Casey Hi MD Jacoby, MD Jd Chao, Saray Restrepo, DO Residents, Icu Ureteral stone (Primary Dx); Altered mental status, unspecified altered mental status type; Urinary tract infection with hematuria, site unspecified Discharge Disposition: from Last 3 Months Immunizations Name Administration Dates Next Due DTaP [...] Sister 2 No Known Problems Son 1 PRIYANKA West No Known Problems Son 2 PRIYANKA Quinn [...] Friends and Fami ly Not on file 09/08/2023 Sex and Gender Information Value Date Recorded Sex Assigned at Not on file Gender Identity Not on file Sexual Orientation Not on file Obstetrics History Last Filed Vital Signs Vital Sign Reading Time Taken Comments Blood Pressure 100/68 09/08/2023 9:36 AM CDT Pulse 0 09/08/2023 6:00 PM CDT Temperature 36.4 ??C (97.5 ??F) 09/08/2023 4:00 PM CD T Respiratory Rate 22 09/08/2023 6:00 PM CDT Oxygen Saturation 87% 09/08/2023 4:01 PM CDT Inhaled Oxygen Concentration - - Weight 96.5 kg (212 lb 11.9 oz) 09/08/2023 5:23 AM CDT Height 167.6 cm (5' 5.98) 09/08/2023 5:23 AM CD T Body Mass Index 34.35 09/08/2023 5:23 AM CDT Plan of Treatment Not on file Procedures Procedure Name Priority Date/Time Associated Diagnosis Comments CONTINUOUS VIDEO EEG MONITORING Routine 09/08/2023 6:05 PM CDT POTASSIUM STAT 09/08/2023 5:08 PM CDT ARTERIAL BLOOD GAS STAT 09/08/2023 5: 08 PM CDT LACTATE ARTERIAL Timed 09/08/2023 5:08 PM CDT BEDSIDE US STUDY ARCHIVE Routine 09/08/2023 4:43 PM CDT ARTERIAL LINE Routine 09/08/2023 4:41 PM CDT LACTATE ARTERIAL Timed 09/08/2023 2:53 PM CDT ELECTROLYTE PANEL Timed 09/08/2023 2:5 3 PM CDT GLUCOSE METER Timed 09/08/2023 2:32 PM CDT ECHO TTE COMPLETE W CONTRAST Routine 09/08/2023 1:27 PM CDT EXTRA TUBE SEVILLA Today 09/08/2023 1:00 PM CDT PHOSPHORUS Timed 09/08/2023 1:00 PM CDT CALCIUM IONIZED HOSPITAL DRAW ONLY Timed 09/08/2023 1:00 PM CDT CALCIUM Timed 09/08/2023 1:00 PM CDT MAGNESIUM Timed 09/08/2023 1:00 PM CDT MRSA/SA PCR Today 09/08/2023 1:00 PM CDT HEMOGLOBIN Today 09/08/2023 1:00 PM CDT ARTERIAL BLOOD GAS Today 09/08/2023 1: 00 PM CDT CENTRAL LINE INSERTION Routine 09/08/2023 12:22 PM CDT XR CHEST 1 VIEW PORTABLE STAT 09/08/2023 10:45 AM CDT XR CHEST 1 VIEW PORTABLE STAT 09/08/2023 9:22 AM CDT GLUCOSE METER Timed 09/08/2023 9:16 AM CDT CALCIUM IONIZED HOSPITAL DRAW ONLY Timed 09/08/2023 9:04 AM CDT CBC W PLT NO DIFF Timed 09/08/2023 9:0 4 AM CDT LACTATE VENOUS Timed 09/08/2023 9:04 AM CDT ARTERIAL BLOOD GAS Timed 09/08/2023 9: 04 AM CDT BASIC METABOLIC PANEL Timed 09/08/2023 9:04 AM CDT CENTRAL LINE INSERTION Routine 09/08/2023 9:02 AM CDT ARTERIAL LINE Routine 09/08/2023 9:02 AM CDT INTUBATION Routine 09/08/2023 9:00 AM CDT GLUCOSE METER Timed 09/08/2023 6:09 AM CDT POTASSIUM Add On 09/08/2023 6:07 AM CDT CREATININE STAT 09/08/2023 6:07 AM CDT CK TOTAL Add On 09/08/2023 6:07 AM CDT MAGNESIUM Timed 09/08/2023 6:07 AM CDT BLOOD CULTURE STAT 09/08/2023 6:07 AM CDT HEPATIC FUNCTION PANEL STAT 09/08/2023 6:07 AM CDT EKG 12 LEAD STAT 09/08/2023 6:02 AM CDT RED CELL MORPHOLOGY STAT 09/08/2023 5 :58 AM CDT PLATELET ESTIMATE STAT 09/08/2023 5:5 8 AM CDT MANUAL DIFFERENTIAL STAT 09/08/2023 5 :58 AM CDT CBC WITH AUTO DIFFERENTIAL STAT 09/08/2023 5:58 AM CDT LACTATE VENOUS Today 09/08/2023 5:58 AM CDT BLOOD CULTURE STAT 09/08/2023 5:58 AM CDT PROTIME-INR STAT 09/08/2023 5:58 AM CDT CBC WITH AUTO DIFFERENTIAL STAT 09/08/2023 5:58 AM CDT XR CHEST 1 VIEW PORTABLE STAT 09/08/2023 5:27 AM CDT GLUCOSE METER Timed 09/08/2023 5:07 AM CDT IR PERCUTANEOUS TUBE PLACEMENT STAT 09/08/2023 4:[address] ABDOMEN PELVIS STONE PROTOCOL WO STAT 09/08/2023 2:38 AM CDT LACTATE VENOUS STAT 09/08/2023 2:17 AM CDT AMMONIA STAT 09/08/2023 2:17 AM CDT BLOOD GAS,VENOUS STAT 09/08/2023 2:[address] HEAD BRAIN WO STAT 09/08/2023 1:40 AM CDT LACTATE VENOUS STAT 09/08/2023 1:34 AM CDT LACTATE SCREEN VENOUS ISTAT W SEVILLA STAT 09/08/2023 1:34 AM CDT ISTAT EC8 STAT 09/08/2023 1:26 AM CDT RED CELL MORPHOLOGY STAT 09/08/2023 1 2:56 AM CDT PLATELET ESTIMATE STAT 09/08/2023 12: 56 AM CDT MANUAL DIFFERENTIAL STAT 09/08/2023 1 2:56 AM CDT CBC WITH AUTO DIFFERENTIAL STAT 09/08/2023 12:56 AM CDT EXTRA TUBE SEVILLA ON ICE STAT 09/08/2023 12:56 AM CDT CBC WITH AUTO DIFFERENTIAL STAT 09/08/2023 12:56 AM CDT ISTAT LACTATE SCREEN VENOUS STAT 09/08/2023 12:56 AM CDT from Last 3 Months Results * CONTINUOUS VIDEO EEG MONITORING (09/08/2023 6:05 PM CDT) Narrative Ariella Wheeler MD - 09/08/2023 6:05 PM CDT Ariella Wheeler MD ? 09/08/2023 ??6:16 PM [facility], [address] [place], [place] ??[address] Ph: ??[phone] SPECIAL NEURODIAGNOSTIC PROCEDURE - ELECTROENCEPHALOGRAM - EEG Video EEG Report ?? EEG #: [id number] VBA : 1950 STUDY DATE: 09/08/2023 RECORDING TIME: 08:33-17:58 (9 hours 25 min) ADMIT DATE: 09/08/2023 Clinical Note: Rena Galvez is a 73 y.o. female admitted to the ICU with acute encephalopathy and sepsis from obstructing urinary stone. EEG ordered to evaluate for seizures. Condition of Recording: This is a digital EEG with continuous video recording. ??It utilizes the 21-lead modified international 10/20 system for scalp recordings. ??It also uses video recording to clinically correlate epileptiform abnormalities and improve localization for target clinical events. ??Physician access to data was available throughout the recording period. A daily report, as below, was generated and updated at least once every 24 hour period. Activation Procedures: ??None Medications: cefepime, Precedex Results: ?? Background: ??Background activity is continuous, symmetric, and synchronous, comprised of moderate amplitude, polymorphic, diffuse theta > delta slowing. There is lower amplitude, intermittent diffuse beta activity maximal in the frontocentral regions. No posterior dominant rhythm is seen. There is brief burst suppression at 08:57, at the time of intubation. Theta starts to drop our at 17:00, and delta becomes more prominent. The background attenuates at 17:16 and continues to decrease in amplitude. Sleep: No sleep architecture is recognized. Activations: ??None EKG: ??A normal sinus rhythm is noted with an estimated heart rate of 130-140 bpm. EKG becomes increasingly slow and irregular around 17:00, and EKG is no longer seen after 17:58. Interictal Findings: ??None. Ictal Events: ??None. Impression: This continuous video EEG is abnormal due to the presence of: (1) Continuous slow, generalized (2) Background suppression, generalized, seen after ~17:42 Clinical Correlation: This EEG shows evidence for moderate to severe diffuse cerebral dysfunction (encephalopathy) which becomes profound near the end of recording. No epileptiform activity or EEG seizures were seen during this recording. Ariella Wheeler MD .................... ??09/08/2023 ?? 6:15 PM [facility] This continuous video EEG study was completed on 09/08/23, with a total recording duration of 9 hours and 25 minutes. Lydia Chatman MD NEUROLOGY O RD * (ABNORMAL) LACTATE ARTERIAL (09/08/2023 5:08 PM CDT) Only the most recent of2 resultswithin the time period is included. LACTATE,ARTERI AL 28.9(H) 0.5 - 1.6 mmol/L 09/08/2023 6:15 PM CDT [facility] Blood BLOOD SPECIMEN / Unknown Non-Lab Venipuncture / Unknown 09/08/2023 5:08 PM CDT 09/08/2023 5:18 PM CDT [facility] CHEMISTRY Performing Organization Address City/[facility]/ZIP Co de Phone Number [facility] [address] [place] [address], * (ABNORMAL) POTASSIUM (09/08/2023 5:08 PM CDT) Only the most recent of2 resultswithin the time period is included. [facility] POTASSIUM 7.0(HH) 3.5 - 5.1 mmol/L 09/08/2023 5:57 PM CDT [facility] Blood BLOOD SPECIMEN / Unknown Non-Lab Venipuncture / Unknown 09/08/2023 5:08 PM CDT 09/08/2023 5:18 PM CDT Saray Kaye [facility] CHEMISTRY Performing Organization Address City/[facility] Co de Phone Number [facility] [address] [place] [address], * (ABNORMAL) ARTERIAL BLOOD GAS (09/08/2023 5:08 PM CDT) Only the most recent of3 resultswithin the time period is included. PH, ARTERIAL 6.94(LL) 7.35 - 7.45 09/08/2023 5:24 PM CDT [facility] PCO2, ARTERIAL 24(L) 32 - 45 mmHg 09/08/2023 5:24 PM CDT [facility] PO2, ARTERIAL 86 83 - 108 mmHg 09/08/2023 5:24 PM CDT [facility] HCO3, ARTERIAL 5(LL) 21 - 28 mmol/L 09/08/2023 5:24 PM CDT [facility] BASE EXCESS, ARTERIAL -26.2(L) -2.0 - 3.0 09/08/2023 5:24 PM CDT [facility] O2 SATURATION, ARTERIAL 97 94 - 98 % 09/08/2023 5:24 PM CDT [facility] INSPIRED O2 100 09/08/2023 5:24 PM CDT [facility] Comment:Unit of Measure: Lit ers (L) if <=20; Percent (%) if >20 PATIENT TEMPERATURE 36.4 Degrees C 09/08/2023 5:24 PM CDT [facility] Blood ARTERIAL BLOOD SPECIMEN / Unknown Non-Lab Venipuncture / Unknown 09/08/2023 5:08 PM CDT 09/08/2023 5:18 PM CDT Saray Miles DO [facility] [address] [place] [address], * BEDSIDE US STUDY ARCHIVE (09/08/2023 4:43 PM CDT) Narrative Anshu Pollard MD - 09/08/2023 4:43 PM CDT Anshu Pollard MD ? 09/08/2023 ??4:44 PM BEDSIDE US STUDY ARCHIVE Performed by: Anshu Pollard MD Authorized by: Anshu Pollard MD ?? Date/Time: ??09/08/2023 4:43 PM Indication/Diagnosis: shock/hypotension ?? Left Ventricle: ??LV Function: severely reduced ?LV Size: normal ?LV Wall Thickness: normal ?Left ventricular outflow tract velocity time integral (cm): < 8. Right Ventricle: ??RV Function: severely reduced ?RV Size: mildly enlarged ?? Inferior Vena Cava: ??IVC Size: > 2.1 cm ??IVC Collapse: <50% collapse ?? Pericardial Effusion: ??Pericardial Effusion Size: none ?? Valves: ??Aortic Valve: normal ?Mitral Valve: mitral regurgitation ?Tricuspid Valve: tricuspid regurgitation Anshu Pollard MD PROCEDURE ORD * ARTERIAL LINE (09/08/2023 4:41 PM CDT) Only the most recent of2 resultswithin the time period is included. Narrative Anshu Pollard MD - 09/08/2023 4:41 PM CDT Anshu Pollard MD ? 09/08/2023 ??4:42 PM ARTERIAL LINE Date/Time: 09/08/2023 4:41 PM Performed by: Anshu Pollard MD Authorized by: Anshu Pollard MD ?? Consent: ??Consent obtained: ??Emergent situation [place] protocol: ??Patient identity confirmed: ??Hospital-assigned identification number Indications: ??Indications: hemodynamic monitoring ?? Pre-procedure details: ??Skin preparation: ??Chlorhexidine ??Preparation: Patient was prepped and draped in sterile fashion ?? Sedation: ??Sedation type: ??Deep Procedure details: ??Location: ??L femoral ??Needle gauge: ??20 G ??Placement technique: ??Seldinger and ultrasound guided ??Number of attempts: ??1 ??Transducer: waveform confirmed ?? Post-procedure details: ??Post-procedure: ??Biopatch applied, sterile dressing applied and sutured ??Procedure completion: ??Tolerated well, no immediate complications Anshu Pollard MD IV ORD * (ABNORMAL) Electrolyte Panel CRRT (09/08/2023 2:53 PM CDT) SODIUM 147(H) 136 - 145 mmol/L 09/08/2023 4:19 PM CDT [facility] POTASSIUM 4.2 3.5 - 5.1 mmol/L 09/08/2023 4:19 PM CDT [facility] CHLORIDE 102 98 - 107 mmol/L 09/08/2023 4:19 PM CDT [facility] CO2,TOTAL 12(L) 22 - 29 mmol/L 09/08/2023 4:19 PM CDT [facility] ANION GAP 33(H) 5 - 18 09/08/2023 4:19 PM CDT [facility] Blood BLOOD SPECIMEN / Unknown Non-Lab Venipuncture / Unknown 09/08/2023 2:53 PM CDT 09/08/2023 3:07 PM CDT Tayo Malloy MD CHEMISTRY Performing Organization Address [facility]/ZIP Co de Phone Number [facility] [address] [place] [address], * (ABNORMAL) GLUCOSE METER (09/08/2023 2:32 PM CDT) Only the most recent of4 resultswithin the time period is included. GLUCOSE METER 124(H) 65 - 100 mg/dL 09/08/2023 2:33 PM CDT [facility] Blood BLOOD SPECIMEN / Unknown 09/08/2023 2:32 PM CDT 09/08/2023 2:33 PM CDT Saray Miles DO CHEMISTRY Performing Organization Address [facility] Co de Phone Number [facility] [address] [place] [address], [place] * ECHO TTE COMPLETE W CONTRAST (09/08/2023 1:27 PM CDT) AORTIC VALVE MEAN PG 3 mmHg EJECTION FRACTION 27 % PEAK TR VELOCITY 2.7 m/s LVEDD 4.5 cm Anatomical Region Laterality Modality Ultrasound 09/08/2023 12:2 5 PM CDT Narrative 09/08/2023 4:32 PM CDT ECHOCARDIOGRAM RENA GALVEZ ?Accession#: ?? [id number] : ?1950 73 years Study Date: ?? 09/08/2023 12:25:14 PM Gender: F ? BP: ? 92/55 mmHg Height: 167.00 cm ? BSA: ?2.04 m? ? ? Weight: 96.00 kg ?Tech: ? BMN ?Referring MD: LYDIA CHATMAN Site: ? [facility] [place] Location: [facility] Patient Location: Inpatient. Procedure: 2D w/ Contrast, Color Doppler and Spectral Doppler. Indication for study: shock, tachycardia Cardiac Rhythm: Normal sinus.Study quality: Good. Final Impressions: 1. Normal left ventricular size, normal wall thickness, severely reduced global systolic function, calculated EF of 27 %. 2. Right ventricular cavity size is normal, global systolic RV function is moderately reduced. 3. Mildly enlarged left atrium. 4. The mitral valve is normal, mild mitral regurgitation. 5. Echo contrast was administered to enhance visualization of all left ventricular segments. 6. Compared to the prior study of 03/15/22, the left and right ventricular systolic dysfunction is new. Chamber Sizes and Function Normal left ventricular size, normal wall thickness, severely reduced global systolic function, calculated EF of 27 %. Left atrial size is mildly enlarged. Right ventricular cavity size is normal, global systolic RV function is moderately reduced. RV wall thickness is normal. The right atrium is normal. Right atrial volume index is 16 ml/m? ? ?. The pulmonary artery is of normal size and origin. The sinus of Valsalva is normal sized. The ascending aorta is not well visualized. Valves, RV Pressures and Diastolic Function The aortic valve is normal in structure and trileaflet, no stenosis and no regurgitation. The mitral valve is normal in structure, mild mitral regurgitation. Indeterminate pattern of LV diastolic filling. The tricuspid valve is normal in structure. Tricuspid regurgitation is mild regurgitation. The tricuspid regurgitant velocity is 2.7 m/s, the estimated right ventricular systolic pressure is 29 mmHg plus right atrial pressure. There is normal estimated pulmonary pressure by tricuspid regurgitation velocity and right atrial pressure. The pulmonic valve is normal. Trace pulmonary regurgitation. Masses, Effusion, Shunts There is no pericardial effusion. Patient vented, IVC not interpretable. No left to right shunting was detected by limited color flow Doppler interrogation of the interatrial septum. MEASUREMENTS AND CALCULATIONS 2-D Measurements and LV Function: LVID (d) 4.5 cm Planimetered EF 27 % LVID (s) 4.0 cm LV FS% (2D) ? 10 % IVS (d) ??1.0 cm LVOT diameter ?? 2.1 cm LVPW (d) 1.0 cm HR ?125 bpm Ao Sinus 3.3 cm LA Vol index ?27 ml/m2 ?RA Vol index ?16 ml/m2 ?RV Max 4C (d) ?? 3.3 cm Diastology: Mitral ? Tissue Doppler E Peak 1.1 m/s e', Septum ? 0.10 m/s ? e', Lateral ?0.12 m/s ? E/e' Average ?? 9.55 Aortic Valve: Vmax ? 1.1 m/s ??ANJANA (V) ?? 2.29 cm? ? ? VTI ?0.15 m ?? ANJANA (I) ?? 2.04 cm? ? ? LVOT V max 0.7 m/s ??Max PG ?4 mmHg LVOT VTI ?? 0.09 m ?? Mean PG ?? 3 mmHg SV ? 31 ml ?Dim Index 0.61 SV index ?? 15 ml/m? ? ? CO ?3.9 l/min ?CI ?1.9 l/min/m? ? ? Mitral Valve: MR TVI 1.02 m Tricuspid Valve and estimated PA pressures: TR Vmax 2.7 m/s TR maxG 29 mmHg Pulmonic Valve: PV Vmax 0.6 m/s Contrast documentation: 2 ml diluted Definity, lot #[id number], [facility]# [id number] was administered peripherally to enhance visualization of all left ventricular segments. . This study was interpreted by an [facility] accredited facility. ??Final ?? Procedure Note Edward Jiménez MD - 09/08/2023 ECHOCARDIOGRAM RENA GALVEZ : 1950 73 years Study Date: 09/08/2023 12:25:14 PM Gender: F BP: 92/55 mmHg Height: 167.00 cm BSA: 2.04 m? ? ? Weight: 96.00 kg Tech: N Referring MD: LYDIA CHATMAN Site: [facility] [place] Location: [facility] Patient Location: Inpatient. Procedure: 2D w/ Contrast, Color Doppler and Spectral Doppler. Indication for study: shock, tachycardia Cardiac Rhythm: Normal sinus.Study quality: Good. Final Impressions: 1. Normal left ventricular size, normal wall thickness, severely reducedglobal systolic function, calculated EF of 27 %. 2. Right ventricular cavity size is normal, global systolic RV functionis moderately reduced. 3. Mildly enlarged left atrium. 4. The mitral valve is normal, mild mitral regurgitation. 5. Echo contrast was administered to enhance visualization of all leftventricular segments. 6. Compared to the prior study of 03/15/22, the left and rightventricular systolic dysfunction is new. Chamber Sizes and Function Normal left ventricular size, normal wall thickness, severely reducedglobal systolic function, calculated EF of 27 %. Left atrial size ismildly enlarged. Right ventricular cavity size is normal, global systolicRV function is moderately reduced. RV wall thickness is normal. The rightatrium is normal. Right atrial volume index is 16 ml/m? ? ?. The pulmonaryartery is of normal size and origin. The sinus of Valsalva is normalsized. The ascending aorta is not well visualized. Valves, RV Pressures and Diastolic Function The aortic valve is normal in structure and trileaflet, no stenosis and noregurgitation. The mitral valve is normal in structure, mild mitralregurgitation. Indeterminate pattern of LV diastolic filling. Thetricuspid valve is normal in structure. Tricuspid regurgitation is mildregurgitation. The tricuspid regurgitant velocity is 2.7 m/s, theestimated right ventricular systolic pressure is 29 mmHg plus right atrialpressure. There is normal estimated pulmonary pressure by tricuspidregurgitation velocity and right atrial pressure. The pulmonic valve isnormal. Trace pulmonary regurgitation. Masses, Effusion, Shunts There is no pericardial effusion. Patient vented, IVC not interpretable.No left to right shunting was detected by limited color flow Dopplerinterrogation of the interatrial septum. MEASUREMENTS AND CALCULATIONS 2-D Measurements and LV Function: LVID (d) 4.5 cm Planimetered EF 27 % LVID (s) 4.0 cm LV FS% (2D) 10 % IVS (d) 1.0 cm LVOT diameter 2.1 cm LVPW (d) 1.0 cm HR 125 bpm Ao Sinus 3.3 cm LA Vol index 27 ml/m2 RA Vol index 16 ml/m2 RV Max 4C (d) 3.3 cm Diastology: Mitral Tissue Doppler E Peak 1.1 m/s e', Septum 0.10 m/s e', Lateral 0.12 m/s E/e' Average 9.55 Aortic Valve: Vmax 1.1 m/s ANJANA (V) 2.29 cm? ? ? VTI 0.15 m ANJANA (I) 2.04 cm? ? ? LVOT V max 0.7 m/s Max PG 4 mmHg LVOT VTI 0.09 m Mean PG 3 mmHg SV 31 ml Dim Index 0.61 SV index 15 ml/m? ? ? CO 3.9 l/min CI 1.9 l/min/m? ? ? Mitral Valve: MR TVI 1.02 m Tricuspid Valve and estimated PA pressures: TR Vmax 2.7 m/s TR maxG 29 mmHg Pulmonic Valve: PV Vmax 0.6 m/s Contrast documentation: 2 ml diluted Definity, lot #[id number], [facility]#[id number] was administered peripherally to enhance visualization of allleft ventricular segments. . This study was interpreted by an [employer] accredited facility. Final Lydia Chatman MD ECHO ORD * (ABNORMAL) MRSA/SA PCR (09/08/2023 1:00 PM CDT) MRSA DNA PCR Positive( A) Negative 09/08/2023 2:58 PM CDT [facility] STAPHYLOCOCCUS AUREUS PCR Positive( A) Negative 09/08/2023 2:58 PM CDT [facility] Other SPECIMEN FROM INTERNAL NOSE / Unknown Non-Blood / Unknown 09/08/2023 1:00 PM CDT 09/08/2023 1:11 PM CDT Narrative [facility] - 09/08/2023 2:58 PM CDT A positive test result does not necessarily indicate the presence of viable organisms. It is, however, presumptive for the presence of Methicillin Resistant Staphylococcus aureus (MRSA) or Staphylococcus aureus. Hope Ontiveros MD MICROBIOLOGY Performing Organization Address City/[facility]/ZIP Co de Phone Number [facility] [address] [place] [address], [place] * EXTRA TUBE SEV[place]A (09/08/2023 1:00 PM CDT) Blood BLOOD SPECIMEN / Unknown Extra Tube / Unknown 09/08/2023 1:00 PM CDT 09/08/2023 1:13 PM CDT [facility] [address] [place] [address], [place] * (ABNORMAL) HEMOGLOBIN (09/08/2023 1:00 PM CDT) HEMOGLOBIN 9.6(L) 12.0 - 16.0 g/dL 09/08/2023 1:27 PM CDT [facility] MCV 98 80 - 100 fL 09/08/2023 1:27 PM CDT [facility] Blood BLOOD SPECIMEN / Unknown Non-Lab Venipuncture / Unknown 09/08/2023 1:00 PM CDT 09/08/2023 1:11 PM CDT Hope Ontiveros MD HEMATOLOGY Performing Organization Address [facility] Co de Phone Number [facility] [address] [address], [place] * (ABNORMAL) Phosphorus CRRT (09/08/2023 1:00 PM CDT) PHOSPHORUS 4.9(H) 2.5 - 4.5 mg/dL 09/08/2023 1:56 PM CDT [facility] Blood BLOOD SPECIMEN / Unknown Non-Lab Venipuncture / Unknown 09/08/2023 1:00 PM CDT 09/08/2023 1:11 PM CDT Tayo Malloy MD CHEMISTRY Performing Organization Address [facility] de Phone Number [facility] [address] [address], [place] * Magnesium CRRT (09/08/2023 1:00 PM CDT) Only the most recent of2 resultswithin the time period is included. MAGNESIUM 2.2 1.6 - 2.4 mg/dL 09/08/2023 1:56 PM CDT [facility] Blood BLOOD SPECIMEN / Unknown Non-Lab Venipuncture / Unknown 09/08/2023 1:00 PM CDT 09/08/2023 1:11 PM CDT Tayo Malloy MD CHEMISTRY Performing Organization Address [facility] Co de Phone Number [facility] [address] [address], [place] * (ABNORMAL) Calcium Ionized Hospital Draw Only CRRT (09/08/2023 1:00 PM CDT) Only the most recent of2 resultswithin the time period is included. CALCIUM,IONIZE D 1.08(L) 1.15 - 1.27 mmol/L 09/08/2023 1:15 PM CDT [facility] Blood BLOOD SPECIMEN / Unknown Non-Lab Venipuncture / Unknown 09/08/2023 1:00 PM CDT 09/08/2023 1:10 PM CDT Tayo Malloy MD CHEMISTRY Performing Organization Address [facility] Co de Phone Number [facility] [address] [place] [address], * (ABNORMAL) Calcium CRRT (09/08/2023 1:00 PM CDT) [facility] CALCIUM 7.9(L) 8.8 - 10.2 mg/dL 09/08/2023 1:56 PM CDT [facility] Blood BLOOD SPECIMEN / Unknown Non-Lab Venipuncture / Unknown 09/08/2023 1:00 PM CDT 09/08/2023 1:11 PM CDT Tayo Malloy MD CHEMISTRY Performing Organization Address [facility] de Phone Number [facility] [address] [place] [address], * CENTRAL LINE (09/08/2023 12:22 PM CDT) Only the most recent of2 resultswithin the time period is included. Narrative Saray Miles DO - 09/08/2023 12:22 PM CDT Saray Miles DO ? 09/08/2023 12:25 PM CENTRAL LINE Date/Time: 09/08/2023 12:22 PM Performed by: Saray Miles DO Authorized by: Saray Miles DO ?? Consent: ??Consent obtained: ??Emergent situation and verbal ??Consent given by: Sister. ??Risks discussed: ??Arterial puncture, bleeding, infection and incorrect placement ??Alternatives discussed: ??No treatment, delayed treatment and alternative treatment [place] protocol: ??Patient identity confirmed: ??Arm band Pre-procedure details: ??Indication(s) comment: ??HD access ??Hand hygiene: Hand hygiene performed prior to insertion ?Sterile barrier technique: All elements of maximal sterile technique followed ?Skin preparation: ??Chlorhexidine ??Skin preparation agent: Skin preparation agent completely dried prior to procedure ?? Sedation: ??Sedation type: See MAR. Anesthesia: ??Anesthesia method: ??None Procedure details: ??Location: ??R femoral ??Patient position: ??Supine ??Procedural supplies: ??Double lumen ??Ultrasound guidance: yes ?Ultrasound guidance timing: real time ?Sterile ultrasound techniques: Sterile gel and sterile probe covers were used ?Number of attempts: ??1 ??Successful placement: yes ?? Post-procedure details: ??Post-procedure: ??Dressing applied and line sutured ??Assessment: ??Blood return through all ports and free fluid flow ??Procedure completion: ??Tolerated well, no immediate complications Saray Miles DO IV ORD * XR CHEST 1 VIEW PORTABLE (09/08/2023 10:45 AM CDT) Only the most recent of3 resultswithin the time period is included. Anatomical Region Laterality Modality HEART, THORAX, CHEST Digital Rad iography 09/08/2023 12:0 3 PM CDT Impressions 09/08/2023 12:03 PM CDT Endotracheal tube terminates 1.5 cm from the ralph, suboptimally positioned, advise retraction by approximately 2 to 3 cm for optimal positioning. Interval improvement in the previously noted left lung collapse. Dictated by Mert Shultz DO @ Sep 08 2023 12:03PM (Electronically Signed) [email or web address] Narrative 09/08/2023 12:03 PM CDT For Patients: ??As a result of the Century Cures Act, medical imaging exams and procedure reports are released immediately into your electronic medical record. ??You may view this report before your referring provider. ??If you have questions, please contact your health care provider. INDICATION: Endotracheal tube placement. TECHNIQUE: Chest radiograph, 1 view. COMPARISON: Chest radiograph 09/08/2023. FINDINGS: Lines/devices: Low riding endotracheal tube terminating 1.5 cm from ralph, suboptimally positioned. Right IJ central venous catheter with tip projecting over the right atrium. Enteric tube courses below the level of the left hemidiaphragm and terminates outside the field of view. Cardiovascular/Mediastinum: Magnified cardiac silhouette. Lungs: No focal consolidation. Interval improvement in the aeration of the left lung patchy ill-defined hazy opacification of the lungs bilaterally, likely atelectasis. Airways: Trachea remains midline. Pleura: Blunting of the left costophrenic angle may represent a small pleural effusion. Bones: No acute osseous abnormalities. Upper abdomen: Unremarkable. Procedure Note Mert Shultz DO - 09/08/2023 For Patients: As a result of the Cures Act, medical imagingexams and procedure reports are released immediately into your electronicmedical record. You may view this report before your referring provider.If you have questions, please contact your health care provider. INDICATION: Endotracheal tube placement. TECHNIQUE: Chest radiograph, 1 view. COMPARISON: Chest radiograph 09/08/2023. FINDINGS: Lines/devices: Low riding endotracheal tube terminating 1.5 cm fromcarina, suboptimally positioned. Right IJ central venous catheter with tipprojecting over the right atrium. Enteric tube courses below the level ofthe left hemidiaphragm and terminates outside the field of view. Cardiovascular/Mediastinum: Magnified cardiac silhouette. Lungs: No focal consolidation. Interval improvement in the aeration of theleft lung patchy ill-defined hazy opacification of the lungs bilaterally,likely atelectasis. Airways: Trachea remains midline. Pleura: Blunting of the left costophrenic angle may represent a smallpleural effusion. Bones: No acute osseous abnormalities. Upper abdomen: Unremarkable. IMPRESSION: Endotracheal tube terminates 1.5 cm from the ralph, suboptimallypositioned, advise retraction by approximately 2 to 3 cm for optimalpositioning. Interval improvement in the previously noted left lungcollapse. Dictated by Mert Shultz DO @ Sep 08 2023 12:03PM (Electronically Signed) [email or web address] Saray Miles DO GENERAL IMAGING * (ABNORMAL) LACTATE VENOUS (09/08/2023 9:04 AM CDT) Only the most recent of4 resultswithin the time period is included. LACTATE,VENOUS 12.0(H) 0.5 - 2.0 mmol/L 09/08/2023 10:37 AM CDT [facility] Blood BLOOD SPECIMEN / Unknown Non-Lab Venipuncture / Unknown 09/08/2023 9:04 AM CDT 09/08/2023 9:14 AM CDT Saray Miles DO CHEMISTRY [facility] [address] [place] [address], * (ABNORMAL) CBC W PLT NO DIFF (09/08/2023 9:04 AM CDT) WHITE BLOOD COUNT 8.4 4.5 - 11.0 thou/cu mm 09/08/2023 9:31 AM CDT [facility] RED BLOOD COUNT 3.20(L) 4.00 - 5.20 mil/cu mm 09/08/2023 9:31 AM CDT [facility] HEMOGLOBIN 9.3(L) 12.0 - 16.0 g/dL 09/08/2023 9:31 AM T [facility] HEMATOCRIT 30.9(L) 33.0 - 51.0 % 09/08/2023 9:31 AM CDT [facility] MCV 97 80 - 100 fL 09/08/2023 9:31 AM CDT [facility] MCH 29.1 26.0 - 34.0 pg 09/08/2023 9:31 AM CDT [facility] MCHC 30.1(L) 32.0 - 36.0 g/dL 09/08/2023 9:31 AM CDT [facility] RDW 12.6 11.5 - 15.5 % 09/08/2023 9:31 AM T [facility] PLATELET COUNT 126(L) 140 - 440 thou/cu mm 09/08/2023 9:31 AM CDT [facility] MPV 11.0 6.5 - 11.0 fL 09/08/2023 9:31 AM CDT [facility] NRBC 0.2 % 09/08/2023 9:31 AM CDT [facility] ABS NRBC 0.0 thou /cu mm 09/08/2023 9:31 AM CDT [facility] Blood BLOOD SPECIMEN / Unknown Non-Lab Venipuncture / Unknown 09/08/2023 9:04 AM CDT 09/08/2023 9:14 AM CDT Saray Miles DO HEMATOLOGY [facility] [address] [place] [address], * (ABNORMAL) BASIC METABOLIC PANEL (09/08/2023 9:04 AM CDT) SODIUM 141 136 - 145 mmol/L 09/08/2023 10:03 AM T [facility] POTASSIUM 3.6 3.5 - 5.1 mmol/L 09/08/2023 10:03 AM T [facility] CHLORIDE 106 98 - 107 mmol/L 09/08/2023 10:03 AM T [facility] CO2,TOTAL 13(L) 22 - 29 mmol/L 09/08/2023 10:03 AM CDT [facility] ANION GAP 22(H) 5 - 18 09/08/2023 10:03 AM T [facility] GLUCOSE 139(H) 70 - 99 mg/dL 09/08/2023 10:03 AM T [facility] CALCIUM 8.0(L) 8.8 - 10.2 mg/dL 09/08/2023 10:03 AM T [facility] BUN 27(H) 8 - 23 mg/dL 09/08/2023 10:03 AM CDT [facility] CREATININE 2.18(H) 0.50 - 0.90 mg/dL 09/08/2023 10:03 AM CDT [facility] BUN/CREAT RATIO 12 10 - 20 10:03 AM CDT [facility] eGFR 24(L) >90 mL/min/1.7 3m2 09/08/2023 10:03 AM CDT [facility] Comment:As of 2021, eG FR is calculated by the CKD-EPI creatinine equation without race adjustment. ??eGFR can be influenced by muscle mass, exercise, and diet. ??The reported eGFR is an estimation only and is only applicable if the renal function is stable. Blood BLOOD SPECIMEN / Unknown Non-Lab Venipuncture / Unknown 09/08/2023 9:04 AM CDT 09/08/2023 9:14 AM CDT Saray Miles DO [facility]MISTRY [facility] [address] [place] [address], * INTUBATION (09/08/2023 9:00 AM CDT) Narrative Saray Miles DO - 09/08/2023 9:00 AM CDT Saray Miles DO ? 09/08/2023 ??9:03 AM INTUBATION Date/Time: 09/08/2023 9:00 AM Performed by: Saray Miles DO Authorized by: Saray Miles DO ?? Indication/Diagnosis: ??Decreased LOC, airway protection and hypoxemic respiratory failure Pre-Procedure Assessment Mallampati Class: ??Unable to assess Mouth Opening: ??Full} Thyromental Distance: ??Normal Neck ROM: ??Limited Teeth: ??Missing Technique: ??Rapid sequence intubation Oxygenation Strategy: ??Other (comment) (oxy mask) Medications: Etomidate (mg) Etomidate Dose (mg): ??20 Neuromuscular Blockers: Rocuronium (mg) Rocuronium Dose (mg): ??100 Ventilation attempted between induction and intubation?: No ?? Mask Ventilation: ??Easy Laryngoscopy via: ??Glidescope Mac Blade Size: ??4 Cricoid Pressure: No ?? Laryngoscopy Attempts: ??1 Cormack-Lehane Grade View: ??1 ETT Type: ??Oral ETT with subglottic suction ETT Size: ??7.5 (Add'l sizes): ??7.5 Secured At (cm): ??24 Measured From: ??Lips Airway Adjuncts: ??None Post-Procedure Assessment Airway Confirmation via: CO2 detection, capnography and CXR ?? Pre-induction Sp02%: ??95 Silviano SpO2%: ??89 Procedure Noteable for: ??SBP<90 Placement Verification: end tidal CO2 and chest x-ray ?? Difficulty: ??0 (not difficult) Saray Miles DO RESPIRATORY CARE ORD * (ABNORMAL) CREATININE (09/08/2023 6:07 AM CDT) Pathologist [facility] eGFR 26(L) >90 mL/min/1.7 3m2 09/08/2023 7:10 AM CDT [facility] Comment:As of 2021, eG FR is calculated by the CKD-EPI creatinine equation without race adjustment. ??eGFR can be influenced by muscle mass, exercise, and diet. ??The reported eGFR is an estimation only and is only applicable if the renal function is stable. CREATININE 2.04(H) 0.50 - 0.90 mg/dL 09/08/2023 7:10 AM CDT [facility] Blood BLOOD SPECIMEN / Unknown Butterfly / Unknown 09/08/2023 6:07 AM CDT 09/08/2023 6:17 AM CDT Lydia Chatman MD CHEMISTRY [facility] [address] [place] [address], * (ABNORMAL) CK TOTAL (09/08/2023 6:07 AM CDT) Pathologist [facility] CK,TOTAL 1,202(H) 26 - 192 IU/L 09/08/2023 7:10 AM CDT [facility] Blood BLOOD SPECIMEN / Unknown Butterfly / Unknown 09/08/2023 6:07 AM CDT 09/08/2023 6:17 AM CDT Lydia Chatman MD CHEMISTRY [facility] [address] [place] [address], * (ABNORMAL) Hepatic Function Panel (09/08/2023 6:07 AM CDT) ALBUMIN 3.3(L) 4.0 - 4.9 g/dL 09/08/2023 7:12 AM CDT [facility] PROTEIN,TOTAL 6.5 6.0 - 8.0 g/dL 09/08/2023 7:12 AM CDT [facility] BILIRUBIN,TOTAL 2.6(H) 0.0 - 1.2 mg/dL 09/08/2023 7:12 AM CDT [facility] BILIRUBIN,DIRECT 2.2(H) 0.0 - 0.3 mg/dL 09/08/2023 7:12 AM CDT [facility] BILIRUBIN,INDIRE CT 0.4 0.2 - 0.8 mg/dL 09/08/2023 7:12 AM CDT [facility] ALK PHOSPHATASE 157(H) 35 - 104 IU/L 09/08/2023 7:12 AM CDT [facility] ALT (SGPT) 28 10 - 35 IU/L 09/08/2023 7:12 AM CDT [facility] AST (SGOT) 68(H) 10 - 35 IU/L 09/08/2023 7:12 AM CDT [facility] Blood BLOOD SPECIMEN / Unknown Butterfly / Unknown 09/08/2023 6:07 AM CDT 09/08/2023 6:17 AM CDT Lydia Chatman MD CHEMISTRY [facility] [address] [place] [address], * (ABNORMAL) CBC WITH AUTO DIFFERENTIAL (09/08/2023 5:58 AM CDT) Only the most recent of2 resultswithin the time period is included. WHITE BLOOD COUNT 3.4(L) 4.5 - 11.0 thou/cu mm 09/08/2023 8:01 AM CDT [facility] RED BLOOD COUNT 4.05 4.00 - 5.20 mil/cu mm 09/08/2023 8:01 AM CDT [facility] HEMOGLOBIN 11.8(L) 12.0 - 16.0 g/dL 09/08/2023 8:01 AM T [facility] HEMATOCRIT 38.7 33.0 - 51.0 % 09/08/2023 8:01 AM CDT [facility] MCV 96 80 - 100 fL 09/08/2023 8:01 AM CDT [facility] MCH 29.1 26.0 - 34.0 pg 09/08/2023 8:01 AM CDT [facility] MCHC 30.5(L) 32.0 - 36.0 g/dL 09/08/2023 8:01 AM T [facility] RDW 12.4 11.5 - 15.5 % 09/08/2023 8:01 AM T [facility] PLATELET COUNT 133(L) 140 - 440 thou/cu mm 09/08/2023 8:01 AM CDT [facility] MPV 11.4(H) 6.5 - 11.0 fL 09/08/2023 8:01 AM CDT [facility] NRBC 1.8 % 09/08/2023 8:01 AM T [facility] ABS NRBC 0.1 thou /cu mm 09/08/2023 8:01 AM CDT [facility] Blood BLOOD SPECIMEN / Unknown Butterfly / Unknown 09/08/2023 5:58 AM CDT 09/08/2023 6:18 AM CDT Lydia Chatman MD HEMATOLOGY Performing Organization Address [facility] Co de Phone Number [facility] [address] [place] [address], [place] * RED CELL MORPHOLOGY (09/08/2023 5:58 AM CDT) Only the most recent of2 resultswithin the time period is included. RBC COMMENT RBC morphology appears normal RBC morphology appears normal, RBC morphology within normal limits for newborns. 09/08/2023 8:01 AM CDT [facility] LARGE PLATELETS Present 8:01 AM CDT [facility] WBC VACUOLATED GRANULOCYTES Present 09/08/2023 8:01 AM CDT [facility] Blood BLOOD SPECIMEN / Unknown Butterfly / Unknown 09/08/2023 5:58 AM CDT 09/08/2023 6:18 AM CDT Lydia Chatman MD HEMATOLOGY Performing Organization Address [facility] Co de Phone Number [facility] [address] [place] [address], [place] * (ABNORMAL) PLATELET ESTIMATE (09/08/2023 5:58 AM CDT) Only the most recent of2 resultswithin the time period is included. PLATELET ESTIMATE Decreased (A) Adequate, No estimate 09/08/2023 8:01 AM CDT [facility] Blood BLOOD SPECIMEN / Unknown Butterfly / Unknown 09/08/2023 5:58 AM CDT 09/08/2023 6:18 AM CDT Lydia Chatman MD HEMATOLOGY [facility] [address] [place] [address], [place] * (ABNORMAL) MANUAL DIFFERENTIAL (09/08/2023 5:58 AM CDT) Only the most recent of2 resultswithin the time period is included. % NEUTROPHILS 70.0 % 09/08/2023 8:01 AM T [facility] % LYMPHOCYTES 24.0 % 09/08/2023 8:01 AM T [facility] % MONOCYTES 1.0 % 09/08/2023 8:01 AM T [facility] % EOSINOPHILS 0.0 % 09/08/2023 8:01 AM T [facility] % BASOPHILS 0.0 % 09/08/2023 8:01 AM T [facility] % METAMYELOCYTES 3.0(H) <0.1 % 09/08/19 8:01 AM T [facility] % MYELOCYTES 2.0(H) <0.1 % 09/08/2023 8:01 AM T [facility] NEUTROPHILS ABSOLUTE 2.4 1.7 - 7.0 thou/cu mm 09/08/2023 8:01 AM T [facility] LYMPHOCYTES ABSOLUTE 0.8(L) 0.9 - 2.9 thou/cu mm 09/08/2023 8:01 AM [facility] MONOCYTES ABSOLUTE 0.0 <0.9 thou/cu mm 09/08/2023 8:01 AM [facility] EOSINOPHILS ABSOLUTE 0.0 <0.5 thou/cu mm 09/08/2023 8:01 AM T [facility] BASOPHILS ABSOLUTE 0.0 <0.3 thou/cu mm 09/08/2023 8:01 AM [facility] ABSOLUTE METAMYELOCYTES 0.1(H) <=0.0 thou/cu mm 09/08/2023 8:01 AM CDT [facility] ABSOLUTE MYELOCYTES 0.1(H) <=0.0 thou/cu mm 09/08/2023 8:01 AM CDT [facility] Blood BLOOD SPECIMEN / Unknown Butterfly / Unknown 09/08/2023 5:58 AM CDT 09/08/2023 6:18 AM CDT Lydia Chatman MD HEMATOLOGY Performing Organization Address City/[facility] Co de Phone Number [facility] [address] [place] [address], [place] * (ABNORMAL) Protime - INR (09/08/2023 5:58 AM CDT) INR 1.2 <1.3 09/08/2023 6:45 AM CDT [facility] PROTIME 13.0(H) 10.3 - 12.3 sec 09/08/2023 6:45 AM CDT [facility] Blood BLOOD SPECIMEN / Unknown Butterfly / Unknown 09/08/2023 5:58 AM CDT 09/08/2023 6:18 AM CDT Narrative [facility] - 09/08/2023 6:45 AM CDT ?Therapeutic Range 2.0-3.0 for most anticoagulated patients 2.5-3.5 or 4.0 for high risk patients The INR is only used for patients on stable oral anticoagulant therapy. It makes no significant contribution to the diagnosis or treatment of patients whose Protime is prolonged for other reasons. INR results are increased when heparin levels exceed 1.0 U/mL, which corresponds to an aPTT >125 seconds if the patient is on UFH. Lydia Chatman MD HEMATOLOGY Performing Organization Address [facility] Co de Phone Number [facility] [address] [place] [id number], [place] * IR PERCUTANEOUS TUBE PLACEMENT (09/08/2023 4:46 AM CDT) Anatomical Region Laterality Modality X-Ray Angiograph y Narrative 09/08/2023 4:54 AM CDT Procedure: 1. Percutaneous right nephrostomy tube placement under sonographic and fluoroscopic guidance. 2. Antegrade nephrostogram. Indication: Urosepsis with an obstructing stone of the right ureter. Comparison: N/A Interventionalist: Pradeep Mcneil MD Fluoroscopy time: 3 minutes. Reference air kerma: 117 mGy. Contrast: 15 mL Estimated Blood Loss: <10 mL Medications: 1% lidocaine 15 mL subcutaneous. Sedation: Local anesthetic Conscious sedation: 20 minutes of intraservice time. The patient was supervised by myself and the patient's vital signs were actively monitored by an independent registered nurse. Complications: None immediate. Technique: The procedure, risks, and alternative therapies were discussed in detail, and written informed consent was obtained. A time out was performed to verify correct patient and procedure. ??Moderate sedation was administered as above. The patient's pulse oximetry, EKG, and blood pressure were monitored by the interventional radiology nurse at all times. The right flank was prepped and draped in the usual sterile fashion. All elements of maximum sterile barrier technique were used. Initial ultrasound scanning demonstrated a dilated right collecting system. ??Under ultrasound guidance, a posterior calyx was targeted and an 22 gauge trocar needle was advanced into the collecting system. An ultrasound image was saved and sent to PACS. ?? Appropriate position within the collecting system was confirmed with the reflux of urine. The access was dilated with an AccuStick set and an Amplatz wire was placed in the renal pelvis. The tract was dilated. 10 Taiwanese nephrostomy catheter was inserted over the wire and a loop was formed in the renal pelvis. Contrast injection demonstrates good placement of the pigtail loop within the renal pelvis. The pigtail loop was locked. It was secured to the skin with 2-0 Ethilon suture and a Jesu disc, covered with a sterile dressing, and connected to a drainage bag. The patient tolerated the procedure well without immediate post procedural complication. Findings: Initial ultrasound demonstrates a dilated ??right collecting system. 10 Taiwanese nephrostomy tube was placed uneventfully. Completion antegrade nephrostogram demonstrates. Impression: Successful placement of a right 10 Taiwanese nephrostomy tube using ultrasound and fluoroscopic guidance. Please contact me with any questions. Pradeep Mcneil MD Vascular & Interventional Radiology [facility] [phone] [email or web address] Casey Hi MD IR * CT ABDOMEN PELVIS STONE PROTOCOL WO (09/08/2023 2:38 AM CDT) Anatomical Region Laterality Modality Abdomen, Pelvis, AORTA, LIVER, SPLEEN Computed Tomography 09/08/2023 3:37 AM CDT Narrative 09/08/2023 3:37 AM CDT For Patients: ??As a result of the Cures Act, medical imaging exams and procedure reports are released immediately into your electronic medical record. ??You may view this report before your referring provider. ??If you have questions, please contact your health care provider. Indication: Flank pain, kidney stone suspected Technique: Noncontrast CT through the abdomen and pelvis with multiplanar reformats. Comparison: CT performed 5 hours prior Findings: Lower chest: Unchanged. Hepatobiliary: No significant parenchymal abnormality is appreciated. Spleen: Unremarkable. Pancreas: No acute abnormality appreciated. Adrenal glands: No acute abnormality appreciated. Kidneys: Contrast excretion into the kidneys. Again noted is moderate right hydronephrosis, striated appearance to the kidney suspicious for pyelonephritis, significant perinephric and periureteral stranding, and an 8 millimeter obstructing distal ureteral stone. Left kidney is again unremarkable. Bowel: No obstruction. No focal perienteric or pericolonic stranding is appreciated. Vascular: Unchanged. Lymph nodes: Unchanged. Peritoneum: Increasing stranding and small volume fluid. : Contrast in the bladder, which is partially decompressed by Moreno catheter. Soft tissues: Unchanged. Bones: Unchanged. Impression: Redemonstration of an obstructing 8 millimeter distal right ureteral stone with moderate hydronephrosis and findings concerning for infection/pyelonephritis. Please note that all CT scans at this facility use dose modulation, iterative reconstruction, and/or weight-based dosing when appropriate to reduce radiation dose to as low as reasonably achievable. Dictated by Сергей Lassiter MD @ 09/08/2023 3:37:31 AM (Electronically Signed) Procedure Note Сергей Lassiter MD - 09/08/2023 For Patients: As a result of the Century Cures Act, medical imagingexams and procedure reports are released immediately into your electronicmedical record. You may view this report before your referring provider.If you have questions, please contact your health care provider. Indication: Flank pain, kidney stone suspected Technique: Noncontrast CT through the abdomen and pelvis with multiplanar reformats. Comparison: CT performed 5 hours prior Findings: Lower chest: Unchanged. Hepatobiliary: No significant parenchymal abnormality is appreciated. Spleen: Unremarkable. Pancreas: No acute abnormality appreciated. Adrenal glands: No acute abnormality appreciated. Kidneys: Contrast excretion into the kidneys. Again noted is moderateright hydronephrosis, striated appearance to the kidney suspicious forpyelonephritis, significant perinephric and periureteral stranding, and an8 millimeter obstructing distal ureteral stone. Left kidney is againunremarkable. Bowel: No obstruction. No focal perienteric or pericolonic stranding isappreciated. Vascular: Unchanged. Lymph nodes: Unchanged. Peritoneum: Increasing stranding and small volume fluid. : Contrast in the bladder, which is partially decompressed by Foleycatheter. Soft tissues: Unchanged. Bones: Unchanged. Impression: Redemonstration of an obstructing 8 millimeter distal right ureteral stonewith moderate hydronephrosis and findings concerning forinfection/pyelonephritis. Please note that all CT scans at this facility use dose modulation,iterative reconstruction, and/or weight-based dosing when appropriate toreduce radiation dose to as low as reasonably achievable. Dictated by Сергей Lassiter MD @ 09/08/2023 3:37:31 AM (Electronically Signed) Casey Hi MD CT * (ABNORMAL) BLOOD GAS,VENOUS (09/08/2023 2:17 AM CDT) PH, VENOUS 7.38 7.32 - 7.43 09/08/2023 2:29 AM CDT [facility] PCO2, VENOUS 36(L) 41 - 51 mmHg 09/08/2023 2:29 AM CDT [facility] PO2, VENOUS 59(H) 35 - 40 mmHg 09/08/2023 2:29 AM CDT [facility] HCO3,VENOUS 21(L) 22 - 29 mmol/L 09/08/2023 2:29 AM CDT [facility] BASE EXCESS, VENOUS, POCT -3.3(L) -2.0 - 3.0 09/08/2023 2:29 AM CDT [facility] O2 SATURATION, VENOUS 91(H) 70 - 75 % 09/08/2023 2:29 AM CDT [facility] PATIENT TEMPERATURE 37.0 Degrees C 09/08/2023 2:29 AM CDT [facility] Blood VENOUS BLOOD SPECIMEN / Unknown Butterfly / Unknown 09/08/2023 2:17 AM CDT 09/08/2023 2:24 AM CDT Casey Hi MD CHEMISTRY Performing Organization Address City/[facility]/ZIP Co de Phone Number [facility] [address] [address], [place] * AMMONIA (09/08/2023 2:17 AM CDT) AMMONIA 39 16 - 60 umol/L 09/08/2023 2:55 AM CDT [facility] Blood BLOOD SPECIMEN / Unknown Butterfly / Unknown 09/08/2023 2:17 AM CDT 09/08/2023 2:24 AM CDT Narrative [facility] - 09/08/2023 2:55 AM CDT 1. ??Sulfasalazine and its metabolite Sulfapyridine at therapeutic concentrations may lead to falsely low results. 2. ??Temozolomide and its metabolite MTIC may lead to falsely elevated results, and its metabolite AIC may lead to falsely low results. Casey Hi MD CHEMISTRY Performing Organization Address City/[facility]/ZIP Co de Phone Number [facility] [address] [address], [place] * CT HEAD BRAIN WO (09/08/2023 1:40 AM CDT) Anatomical Region Laterality Modality HEAD, BRAIN Computed Tomogra phy 09/08/2023 2:01 AM CDT Narrative 09/08/2023 2:01 AM CDT For Patients: ??As a result of the Cures Act, medical imaging exams and procedure reports are released immediately into your electronic medical record. ??You may view this report before your referring provider. ??If you have questions, please contact your health care provider. Indication: Mental status change, unknown cause Technique: Noncontrast CT through the head with multiplanar reformats Comparison: MR head performed 07/23/2022 Findings: Brain: No acute hemorrhage. No acute infarct. No significant mass effect or midline shift. No gross evidence of a mass lesion or cerebral edema. Mild chronic microvascular ischemic disease. Moderate global parenchymal volume loss. Ventricles: No acute abnormality appreciated. Orbits, sinuses, mastoids: No acute abnormality appreciated. Calvarium and soft tissues: No acute abnormality appreciated. Impression: Moderate chronic senescent changes with no acute abnormality appreciated. Please note that all CT scans at this facility use dose modulation, iterative reconstruction, and/or weight-based dosing when appropriate to reduce radiation dose to as low as reasonably achievable. Dictated by Сергей Lassiter MD @ 09/08/2023 2:01:11 AM (Electronically Signed) Procedure Note Сергей Lassiter MD - 09/08/2023 For Patients: As a result of the Cures Act, medical imagingexams and procedure reports are released immediately into your electronicmedical record. You may view this report before your referring provider.If you have questions, please contact your health care provider. Indication: Mental status change, unknown cause Technique: Noncontrast CT through the head with multiplanar reformats Comparison: MR head performed 07/23/2022 Findings: Brain: No acute hemorrhage. No acute infarct. No significant mass effector midline shift. No gross evidence of a mass lesion or cerebral edema.Mild chronic microvascular ischemic disease. Moderate global parenchymalvolume loss. Ventricles: No acute abnormality appreciated. Orbits, sinuses, mastoids: No acute abnormality appreciated. Calvarium and soft tissues: No acute abnormality appreciated. Impression: Moderate chronic senescent changes with no acute abnormalityappreciated. Please note that all CT scans at this facility use dose modulation,iterative reconstruction, and/or weight-based dosing when appropriate toreduce radiation dose to as low as reasonably achievable. Dictated by Сергей Lassiter MD @ 09/08/2023 2:01:11 AM (Electronically Signed) Casey Hi MD CT * (ABNORMAL) LACTATE SCREEN VENOUS ISTAT W SE[place] (09/08/2023 1:34 AM CDT) [facility] LACTATE VENOUS SCREEN ISTAT Critical(A ) <=2.0 09/08/2023 1:38 AM CDT [facility] LACTATE SCREEN VENOUS POCT 4.0(H) <=2.0 09/08/2023 1:38 AM CDT [facility] Blood BLOOD SPECIMEN / Unknown 09/08/2023 1:34 AM CDT 09/08/2023 1:38 AM CDT Narrative [facility] - 09/08/2023 1:38 AM CDT Lactate screen results of 2.1-3.9 mmol/L are reported as Intermediate. Lactate screen results of 4.0 mmol/L or greater are reported as Critical. Elevated whole blood lactate screening results >2.0 are automatically referred for confirmatory plasma lactate quantitation. Casey Hi MD LABORATORY [facility] [address] [place] [address], * (ABNORMAL) ISTAT EC8 (09/08/2023 1:26 AM CDT) Pathologist [facility] GLUCOSE, POCT 252(H) 70 - 99 mg/dL 09/08/2023 1:32 AM CDT [facility] BUN, POCT 23 8 - 25 mg/dL 09/08/2023 1:32 AM CDT [facility] SODIUM, POCT 139 135 - 145 mmol/L 09/08/2023 1:32 AM CDT [facility] POTASSIUM, POCT 4.2 3.5 - 5.0 mmol/L 09/08/2023 1:32 AM CDT [facility] CHLORIDE, POCT 105 98 - 107 mmol/L 09/08/2023 1:32 AM CDT [facility] CO2,TOTAL, POCT 24 21 - 31 mmol/L 09/08/2023 1:32 AM CDT [facility] ANION GAP, POCT 15 5 - 18 09/08/2023 1:32 AM CDT [facility] PH, VENOUS, POCT 7.30(L) 7.32 - 7.42 09/08/2023 1:32 AM CDT [facility] PCO2, VENOUS, POCT 46 41 - 51 mmHg 09/08/2023 1:32 AM CDT [facility] HCO3, VENOUS, POCT 23 22 - 30 mmol/L 09/08/2023 1:32 AM CDT [facility] BASE EXCESS, VENOUS, POCT -4.0(L) -2.0 - 3.0 09/08/2023 1:32 AM CDT [facility] HEMATOCRIT, POCT 37.0 33.0 - 51.0 % 09/08/2023 1:32 AM CDT [facility] HEMOGLOBIN, POCT 12.6 12.0 - 16.0 g/dL 09/08/2023 1:32 AM CDT [facility] Blood BLOOD SPECIMEN / Unknown 09/08/2023 1:26 AM CDT 09/08/2023 1:32 AM CDT Casey Hi MD CHEMISTRY [facility] [address] [place] [address], * EXTRA TUBE SEVILLA ON ICE (09/08/2023 12:56 AM CDT) Blood BLOOD SPECIMEN / Unknown Venipuncture / Unknown 09/08/2023 12:56 AM CDT 09/08/2023 1:21 AM CDT Casey Hi MD LABORATORY [facility] 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 * Full Code (Latest Code Status on File) Date Activated Date Inactivated Comments 09/08/2023 5:12 AM 09/08/2023 10:35 PM Question Answer Comments Code Status Discussion: Reviewed Preferences * Full Code Date Activated Date Inactivated Comments 08/03/2022 12:45 PM 08/09/2022 6:38 PM Question Answer Comments Code Status Discussion: Reviewed Preferences * Full Code Date Activated Date Inactivated Comments 07/22/2022 8:11 PM 08/03/2022 12:45 PM Question Answer Comments Code Status Discussion: Unable to Assess Preferences, Provider to review later Care Teams Dry End Operator Relationship Specialty Start Date End Date Sebastian Griffiths MD PCP - General 09/08/20 [facility] [place] [address] [address] 08/16/22
== END 2023-09-07 19:02 | disposition home or self-care (01) ==
LOC: AMB 09-09 06:37
PROVIDERS: Visit Provider Emergency Medicine
DX: R41.82 Altered mental status, unspecified (principal)
CPT/HCPCS: A0425; A0427

== ENCOUNTER 2023-09-07 19:27 | Emergency (ER) | payer BC, SELFPAY ==
[2023-09-07] VITALS (12 sets, daily range): BP systolic 144–165; BP diastolic 74–104; PULSE 120–136; RESP 36; TEMP 36.7; O2SAT 94–100
--- NOTE | 2023-09-07 19:42 | ED.GENADULT ---
HPI - General Adult General Date Seen: 09/07/23 Chief complaint: Shortness of Breath/Dyspnea Stated complaint: Altered mental status Time Seen by Provider: 09/07/23 19:41 History of Present Illness HPI narrative: 73-year-old female with a past medical history of type 2 diabetes (insulin-dependent), sleep apnea, hepatic steatosis, polypharmacy, chronic use of opiates, heart failure, anxiety, antisocial personality disorder, chronic pain, nicotine binge, borderline personality disorder, asthma/COPD, hypertension, obesity. History is limited by patient altered mental status She is brought to the ER today by EMS from [facility] for evaluation of excessive drowsiness. Nurses apparently know her from previous ER visits and say that she has been sent in from fall her jail in the past for altered mental status. Use in review of her medical record she was seen in the ER on 04/18/2023 for altered mental status. History from paramedics is that she lives in a local jail. She has been drowsier than normal today. Apparently she did not get up today as per jail staff. As far as we know she has not had a fever. No report of vomiting. Additional history is limited because patient is not answering questions. She was found in bed. No reported history of fall or trauma. Related Data Home Medications ?Medication ?Instructions ?Recorded ?Confirmed aspirin 81 mg tablet,delayed 81 mg PO DAILY 10/19/21 04/27/23 release dorzolamide 22.3 mg-timolol 6.8 1 drp ophthalmic (eye) BID 10/19/21 04/27/23 mg/mL eye drops duloxetine 60 mg capsule,delayed 120 mg PO DAILY 10/19/21 04/27/23 release famotidine 20 mg tablet 20 mg PO HS 10/19/21 04/27/23 fluticasone propionate 50 2 spray intranasal DAILY 10/19/21 04/27/23 mcg/actuation nasal spray,suspension hydrochlorothiazide 25 mg tablet 25 mg PO DAILY 10/19/21 04/27/23 insulin aspart U-100 100 unit/mL 1 - 7 unit subcut BID@12,18 10/19/21 04/27/23 (3 mL) subcutaneous pen insulin glargine 100 unit/mL (3 20 unit subcut HS 10/19/21 04/27/23 mL) subcutaneous pen (Lantus Solostar U-100 Insulin) latanoprost 0.005 % eye drops 1 drp ophthalmic (eye) HS 10/19/21 04/27/23 pantoprazole 40 mg tablet,delayed 40 mg PO DAILY 10/19/21 04/27/23 release risperidone 2 mg tablet 2 mg PO BID 10/19/21 04/27/23 atorvastatin 10 mg tablet 10 mg PO HS 03/13/22 04/27/23 nicotine 21 mg/24 hr daily 1 patch topical DAILY 03/13/22 04/27/23 transdermal patch peg 400-propylene glycol 0.4 %-0.3 1 drp ophthalmic (eye) QID 03/13/22 04/27/23 % eye drops (Systane Ultra) polyethylene glycol 3350 17 17 g PO DAILY 03/13/22 04/19/23 gram/dose oral powder (Gavilax) sitagliptin phosphate 100 mg 100 mg PO DAILY 03/13/22 04/27/23 tablet (Januvia) amlodipine 10 mg tablet 10 mg PO DAILY 12/08/22 04/27/23 lidocaine 4 % topical patch 1 patch topical DAILY PRN 12/08/22 04/27/23 (AsperFlex (lidocaine)) melatonin 3 mg tablet 6 mg PO HS 12/08/22 04/27/23 cholecalciferol (vitamin D3) 25 25 mcg PO DAILY 04/19/23 04/19/23 mcg (1,000 unit) tablet potassium chloride 20 mEq 20 meq PO BID 04/19/23 04/27/23 tablet,extended release(part/cryst) diclofenac sodium 1 % topical gel 4 g topical QID PRN 04/27/23 04/27/23 Previous Rx's ?Medication ?Instructions ?Recorded acetaminophen 500 mg tablet 1,000 mg (2 x 500 mg) PO TID #180 03/16/22 tabs magnesium oxide 400 mg (241.3 mg 400 mg PO BID #60 tabs 03/16/22 magnesium) tablet torsemide 20 mg tablet 20 mg PO DAILY@0800 #30 tabs 03/16/22 ondansetron 4 mg disintegrating 4 mg PO Q8-12H PRN nausea and 04/13/23 tablet vomiting #10 tabs Allergies Allergy/AdvReac Type Severity Reaction Status Date / Time aspirin Allergy Unknown Verified 09/07/23 21:10 losartan Allergy Unknown Verified 09/07/23 21:10 tramadol Allergy Unknown Verified 09/07/23 21:10 varenicline Allergy Unknown Verified 09/07/23 21:10 bee venom protein (honey bee) Allergy Verified 09/07/23 21:10 ketorolac [From Toradol] Allergy Verified 09/07/23 21:10 NSAIDS (Non-Steroidal Allergy Verified 09/07/23 21:10 Anti-Inflamma Penicillins Allergy Verified 09/07/23 21:10 [facility] Medical History Altered mental status ?R41.82 - Altered mental status, unspecified (ICD-10) Type 2 diabetes mellitus ?E11.9 - Type 2 diabetes mellitus without complications (ICD-10) Sleep apnea with hypersomnolence ?G47.10 - Hypersomnia, unspecified (ICD-10) ?G47.30 - Sleep apnea, unspecified (ICD-10) Hepatic steatosis ?K76.0 - Fatty (change of) liver, not elsewhere classified (ICD-10) Physical deconditioning ?R53.81 - Other malaise (ICD-10) Polypharmacy ?Z79.899 - 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 therapy (ICD-10) Chronic, continuous use of opioids ?F11.90 - Opioid use, unspecified, uncomplicated (ICD-10) Heart failure ?I50.9 - Heart failure, unspecified (ICD-10) Osteoarthritis ?M19.90 - Unspecified osteoarthritis, unspecified site (ICD-10) Degenerative disc disease, lumbar ?M51.36 - Other intervertebral disc degeneration, lumbar region (ICD-10) Anxiety, generalized ?F41.1 - Generalized anxiety disorder (ICD-10) Antisocial personality disorder ?F60.2 - Antisocial personality disorder (ICD-10) Back pain ?M54.9 - Dorsalgia, unspecified (ICD-10) Chronic pain syndrome ?G89.4 - Chronic pain syndrome (ICD-10) Nicotine dependence ?F17.200 - Nicotine dependence, unspecified, uncomplicated (ICD-10) Borderline personality disorder ?F60.3 - Borderline personality disorder (ICD-10) Asthma ?J45.909 - Unspecified asthma, uncomplicated (ICD-10) COPD (chronic obstructive pulmonary disease) ?J44.9 - Chronic obstructive pulmonary disease, unspecified (ICD-10) Diabetes mellitus type 2 in obese ?E11.69 - Type 2 diabetes mellitus with other specified complication (ICD-10) ?E66.9 - Obesity, unspecified (ICD-10) Hypertension, essential ?I10 - Essential (primary) hypertension (ICD-10) Obesity ?E66.9 - Obesity, unspecified (ICD-10) Surgical History History of total knee arthroplasty ?Z96.659 - Presence of unspecified artificial knee joint (ICD-10) History of cholecystectomy ?Z90.49 - Acquired absence of other specified parts of digestive tract (ICD-10) Family History Father Stomach cancer Brother Heart disease Social History Narrative: Patient is a resident of [facility]. She tells me she has been smoking 2 or 3 cigarettes per day. She is attempting to quit. She does not drink alcohol. Her healthcare power of criminal attorney would be her son Korey Miles, code status is full. What is your current living situation?: I presently have a place to live Problems where you live: no known problems Problems where you live details: no known problems In the past 12 months, utilities in danger of being shut off: unable to answer In past 12 months, lack of transportation kept you from medical appts, meetings, work, or getting things needed for daily living: unable to answer In the past 12 mos, have been you worried that your food would run out before you had money to buy more?: unable to answer In the past 12 mos, the food you bought just didn't last and you didn't have money to buy more?: unable to answer Highest level of school completed/degree received: don't know Smoking Status: Former smoker What tobacco products do you use: cigarettes Smoking quit date/years: <= 15 years ago Do you use any of these nicotine containing products: None Nicotine containing products detail: quit today Second hand tobacco smoke exposure: No How often do you have a drink containing alcohol: never How often do you have six or more drinks on one occasion: Never AUDIT-C Alcohol total score: 0 Non-prescribed substance use: denies use Caffeine: Yes How often does anyone, including family, friends and others, physically hurt you: unable to answer How often does anyone, including family, friends and others, insult or talk down to you: unable to answer How often does anyone, including family, friends and others, threaten you with harm: unable to answer How often does anyone, including family, friends and others, scream or curse at you: unable to answer service: No Exam Narrative: Exam Narrative: Primary Survey: A- patent. Breathing easily. No stridor. However does have drowsiness and low GCS11 B- breathing easily. Tachypneic but suspect acidosis. Lung sounds clear and equal. Sats in the high 80s on room air. Low 90s on 1 L oxygen (face mask because she is mouth breathing) C- no active bleeding. Blood pressure stable. Symmetric pulses and cap refill in 4 extremities. D- drowsy and not speaking coherent words No focal deficits. Constitutional: Appears well-developed and well-nourished. Drowsy. Response to sternal rub and pushes my hand away. HENT: Head: Atraumatic. Nose: Nose normal. Mouth/Throat: Oral mucosa is clear but dry. Edentulous Eyes: Eyes closed. I open her lids for exam. Conjunctivae normal. Gaze is conjugate. No nystagmus. Not cooperating with EOM testing. Pupils equal, round, and reactive to light. No scleral icterus. Neck: Normal range of motion. Neck supple. No tracheal deviation present. Cardiovascular: Tachycardic, regular rhythm. No gallop. No friction rub. No murmur heard. Symmetric radial artery pulses Pulmonary/Chest: Respiratory rate 22 by my count. No stridor. No respiratory distress. No wheezes. No rales. No rhonchi . No tenderness. Abdominal: Soft. Bowel sounds normal. No distension. No mass. Difficult to interpret exam for tenderness. When I palpate her epigastrium and left upper quadrant she does seem to grimace on 1 exam. Subsequent examination reveals no signs of grimace or discomfort No rebound. No guarding. Musculoskeletal: RUE: Normal range of motion. No tenderness. No deformity LUE: Normal range of motion. No tenderness. No deformity RLE: Normal range of motion. No edema. No tenderness. No deformity LLE: Normal range of motion. No edema. No tenderness. No deformity No apparent thoracic or lumbar spine tenderness. Lymph: No cervical adenopathy. Neurological: Drowsy. No focal deficits. Skin: Skin is warm and dry. No rash noted. No pallor. Normal capillary refill. No sacral ulcers or decubitus ulcers. No signs of perineal infection Psychiatric: N not assessable due to drowsiness Const: Vital Signs, click to edit/add: Vital Signs - 24 hr 09/07/23 19:30 09/07/23 20:52 09/07/23 21:06 Temperature 98.1 F Pulse Rate 120 H Pulse Rate [Pulse Oximeter] 136 H Respiratory Rate 36 H Blood Pressure Blood Pressure [Ri ght Upper Arm] 144/78 H Pulse Oximetry 94 94 97 Oxygen Delivery Me thod OxyMask Oxygen Flow Rate 1 09/07/23 21:30 09/07/23 21:31 09/07/23 22:00 Temperature Pulse Rate 121 H 121 H 122 H Pulse Rate [Pulse Oximeter] Respiratory Rate Blood Pressure 152/74 H Blood Pressure [Ri ght Upper Arm] Pulse Oximetry 94 94 96 Oxygen Delivery Me thod Oxygen Flow Rate 09/07/23 22:01 09/07/23 22:30 09/07/23 22:31 Temperature Pulse Rate 122 H 127 H 127 H Pulse Rate [Pulse Oximeter] Respiratory Rate Blood Pressure 164/82 H 153/104 H Blood Pressure [Ri ght Upper Arm] Pulse Oximetry 96 100 100 Oxygen Delivery Me thod Oxygen Flow Rate 09/07/23 22:32 09/07/23 23:00 09/07/23 23:02 Temperature Pulse Rate 125 H 125 H 126 H Pulse Rate [Pulse Oximeter] Respiratory Rate Blood Pressure 165/95 H Blood Pressure [Ri ght Upper Arm] Pulse Oximetry 99 100 95 Oxygen Delivery Me thod Oxygen Flow Rate Course Course ED Course: 2001 suspect sepsis with delirium. Anticipate admission (or transfer if necessary) MD is concerned about mental status. Monitor GCS. We will intubate if seems to be declining Is tachycardic but not febrile. Suspect sepsis. I ordered 1 L of saline 1700mL LR (this would equal 30 mL/kilos bolus) I ordered empiric antibiotics for sepsis. Get blood cultures, catheter and urine culture 1st and then administer antibiotics. Needs expeditious CT imaging if creatinine allows. If creatinine is bad, let me know and I will change to noncontrast CTs). Recheck-heart rate down to 120. Blood pressure normal. Nurses report that she still drowsy but seems more alert now than she was when she arrived. Reevaluation(s) Reevaluation #1: Recheck-urinalysis abnormal showing signs of infection. I ordered antibiotics based on recent culture showing ESBL E coli and Proteus The urine culture 04/27/2023 E coli P mirabili BHARATI RX BHARATI RX --------- --- --------- --- Ampicillin >=32 R <=2 S Ampicillin/Sulbactam >=32 R <=2 S Cefazolin >=64 R 8 S Cefepime 2 R <=1 S Cefoxitin 8 S <=4 S Ceftazidime 16 R <=1 S Ceftriaxone >=64 R <=1 S Ciprofloxacin 1 R <=0.25 S Ertapenem <=0.5 S <=0.5 S Gentamicin <=1 S <=1 S Imipenem <=0.25 S 2 I Levofloxacin 1 S <=0.12 S Nitrofurantoin <=16 S 128 R Tobramycin <=1 S <=1 S Trimethoprim/Sulfamethoxazole >=320 R <=20 S Piperacillin/Tazobactam <=4 S <=4 S Reevaluation #2: Recheck-blood pressure stable. Still drowsy periods seem slightly more arousable than 1st evaluation. Protecting airway. Heart rate had come down to about 120. Now trending back up for 130. Still in process of completing her 30 mL/kilos bolus of crystalloid. Vital Signs Vital signs: Initial Vital Signs Temperature 98.1 F 09/07/23 19:30 Temperature Source Temporal Artery Scan 09/07/23 19:30 Pulse Rate 136 H 09/07/23 19:30 Pulse Rhythm Regular 09/07/23 19:30 Respiratory Rate 36 H 09/07/23 19:30 Blood Pressure 144/78 H 09/07/23 19:30 Blood Pressure Mean 100 09/07/23 19:30 Blood Pressure Position Semi-Fowlers 09/07/23 19:30 Pulse Oximetry 94 09/07/23 19:30 Oxygen Delivery Method OxyMask 09/07/23 19:30 Oxygen Flow Rate 1 09/07/23 19:30 Vital Signs Temperature 98.1 F 09/07/23 19:30 Pulse Rate 136 H 09/07/23 19:30 Respiratory Rate 36 H 09/07/23 19:30 Blood Pressure 144/78 H 09/07/23 19:30 Pulse Oximetry 94 09/07/23 19:30 Oxygen Delivery Method OxyMask 09/07/23 19:30 Oxygen Flow Rate 1 09/07/23 19:30 Temperature 98.1 F 09/07/23 19:30 Pulse Rate 126 H 09/07/23 23:02 Respiratory Rate 36 H 09/07/23 19:30 Blood Pressure 165/95 H 09/07/23 23:02 Pulse Oximetry 95 09/07/23 23:02 Oxygen Delivery Method OxyMask 09/07/23 19:30 Oxygen Flow Rate 1 09/07/23 19:30 Medications Administered Medications: Discontinued Medications Generic Name Dose Route Start Last Admin Trade Name Freq PRN Reason Stop Dose Admin Sodium Chloride 1,000 mls @ 1,000 mls/hr 09/07/23 20:00 09/07/23 22:58 0.9 % Sodium Chloride 1000 Ml IV 09/07/23 20:59 Infused .Q1H ERIC Infusion Imipenem/Cilastatin Sodium 1, 250 mls @ 250 mls/hr 09/07/23 22:00 09/07/23 22:25 000 mg/ Sodium Chloride IVPB Infused Q8H ERIC Infusion Vancomycin HCl 1,250 mg/ 512.5 mls @ 256.25 mls/hr 09/07/23 23:00 09/07/23 23:23 Sodium Chloride IVPB 09/08/23 00:59 Infused ONCE ONE Infusion Lactated Ringer's 1,700 ml 09/07/23 20:00 09/07/23 20:15 Lactated Ringers 1000 Ml IV 09/07/23 20:01 1,700 ml ONCE ONE Administration Medical Decision Making MDM Narrative Medical decision making narrative: 73-year-old female brought to the ER today by EMS from her jail for evaluation of altered mental status. 1. Neuro. Has altered mental status. GCS fluctuating between 11 and 12. No focal deficits. Nurses report that she has a history of drowsiness during previous presentations but was not quite as drowsy as this. Head CT is negative for intracranial bleed. I do not detect any focal deficits to suggest stroke. Blood sugar is 220. Sodium normal. Suspect altered mental status is due to delirium from urosepsis. She does have a leukocytosis. Consider meningitis very unlikely. At this point to hold her here in [place] for lumbar puncture is contraindicated. She needs transfer to higher level of care for urologic decompression and stenting. Already started on broad-spectrum antibiotics. 2. Cardiac. Has sinus tachycardia on her EKG. No sign of ischemia. Troponin normal 3. Pulmonary. Is hypoxic with sats in the high 80s on room air. Placed on 2 L by face mask with sats coming up into the mid 90s. No respiratory distress. Chest CT is negative for any obvious pneumonia or any obvious central PE (however is limited by motion artifact). No wheezing or bronchospasm. 4. Renal. Has acute kidney injury. Creatinine 1.6 up from baseline of 0.6. Fortunately potassium and other electrolytes normal. Receiving IV fluids. Suspect prerenal. She does have an 8 mm ureteral obstructing kidney stone with hydronephrosis could also be contributing to her acute kidney injury. Discussed with urology through the [facility] system, Dr. Blake. He reads that she does need expeditious stenting. She will be transferred to the ER at [facility] for urology consultation tonight. 5. Infectious disease. She is not febrile but does have leukocytosis and tachycardia. I am concerned she septic with associated altered mental status. Blood pressure is normal but she is tachycardic with sinus in the high 120s near 130. Fortunately venous lactic acid is normal. Suspect source for sepsis is urinary tract infection with markedly abnormal urinalysis. Previous cultures have grown extended so Bactrim beta lactamase resistant E coli and also Proteus. Started on imipenem and vancomycin here in the ER. 6. Mental health. Has altered mental status. No reported history of self-harm or suicide attempt. Salicylate and acetaminophen alcohol levels negative. 7. Disposition. Patient clearly requires hospitalization. Given her urinary tract infection with associated obstructing stone and associated altered mental status and sepsis she does require expeditious/urgent urologic evaluation. Not appropriate to mid here in [place] due to absence of urology. Discussed with the [facility] access center. Patient was initially accepted to the ICU by Dr. Jacqui rowell. However there will be an up to 8 hour delay in getting an ICU bed. We have concerns about that amount of delay since the patient has serious potential to decompensate. She is currently tachycardic but not hypotensive. Mildly hypoxic but not requiring intubation. If her continue to deteriorate she could become critically ill. Discussed with Urology. They agree that expeditious stenting is in the patient's best interest. Ultimately after discussions with the line access center, it was determined that the most appropriate care for the patient was to do an ED to ED transfer so she can get to [place] or Urology can evaluate and stent. Discussed with Dr. Chisholm, from the emergency department and [facility]. He accepted the patient in transfer. She is transferred by ground EMS. Lab Data Labs: Lab Results 09/07/23 09/07/23 Range/Units 20:06 20:17 WBC 22.55 H (4.50-11.00) K/uL RBC 4.26 (4.00-5.20) m/uL Hgb 12.4 (12.0-16.0) gm/dL Hct 38.3 (33.0-51.0) % MCV 90 (80-100) fL MCH 29 (26-34) pg MCHC 32 (32-36) gm/dL RDW Coeff of Rosa 12.1 (11.5-15.5) % Plt Count 231 (140-440) K/uL Neut % (Auto) 82.0 H (42.0-72.0) % Lymph % (Auto) 6.2 L (20-44) % [place] % (Auto) 11.2 H (0.0-11.0) % Eos % (Auto) 0.0 (0.0-7.0) % Baso % (Auto) 0.1 (0.0-3.0) % Neut # (Auto) 18.50 H (1.7-7.0) K/uL Lymph # (Auto) 1.40 (0.90-2.90) K/uL [place] # (Auto) 2.50 H (0.00-0.90) K/UL Eos # (Auto) 0.00 (0.00-0.50) K/uL Baso # (Auto) 0.00 (0.00-0.30) K/uL Abs Immat Gran (auto) 0.10 (0.00-0.30) K/uL Imm/Tot Granulo (auto) 0.5 % Diff Slide Review Acceptable Review (Acceptable) VBG pH 7.432 H (7.32-7.43) VBG pCO2 37 L (40-50) mmHG VBG pO2 61.7 H (25-47) mmHG VBG HCO3 24 (21-28) mmol/L Sodium 137 (135-149) mmol/L Potassium 4.0 (3.6-5.1) mmol/L Chloride 103 (96-114) mmol/L Carbon Dioxide 23 (20-32) mmol/L Anion Gap 11 (7-15) mEq/L BUN 28 (7-30) mg/dL Creatinine 1.6 H (0.5-1.5) mg/dL Estimated GFR 34 ml/min Glucose 237 H (60-115) mg/dL Lactate 1.9 (0.5-1.9) mmol/L Calcium 9.1 (8.4-10.6) mg/dL Total Bilirubin 3.1 H (0.1-1.5) mg/dL AST 46 H (12-35) U/L ALT 30 (4-35) U/L Alkaline Phosphatase 93 (40-150) U/L Troponin I 0.03 (0.01-0.04) ng/mL Total Protein 7.5 (6.0-8.3) g/dL Albumin 4.0 (3.3-5.0) g/dL Urine Color Dark yellow (Yellow) Urine Appearance Clear (Clear) Urine pH 8.5 (5.0-8.5) Ur Specific [place] 1.020 (1.000-1.030) Urine Protein 3+ A (Negative) Urine Glucose (UA) Negative (Negative) Urine Ketones Negative (Negative) Urine Blood 3+ A (Negative) Urine Nitrite Positive A (Negative) Urine Bilirubin 1+ A (Negative) Urine Urobilinogen 1.0 (0.2-1.0) Ur Leukocyte Esterase 1+ A (Negative) Urine RBC >100 A (0-2) Urine WBC >100 A (0-5) Ur Squamous Epith Cells Few (None-Few) Urine Bacteria Many A (None) Salicylates < 1.0 L (1.0-10) mg/dL Acetaminophen < 10.0 L (10.0-30.0) ug/mL Ethyl Alcohol < 0.01 L (0.01-0.03) % Imaging Data CT scan - chest: Attestation: I have reviewed the pertinent imaging results. Radiologist's impression: Impression: Respiratory motion degradation. No large or central pulmonary embolus or other acute abnormality is appreciated to account for patient`s reported symptoms. CT scan - abdomen: Attestation: I have reviewed the pertinent imaging results. Radiologist's impression: Impression: Obstructing distal right ureteral stone measuring 8 millimeters with moderate hydronephrosis. Striated appearance to the renal parenchyma with significant perinephric stranding and enhancement of the ureteral wall raises the concern for possible superimposed infection/pyelonephritis. ECG Data Attestation: I personally reviewed and interpreted this ECG as follows: Interpretation: Sinus tachycardia Rate: 136 [place]: 136 QRS axis: Normal axis. ST segment/T wave: No ST segment elevation or depression QTc: 454 Critical Care Time Critical Care Time Critical Care Time: Yes Attestation: The patient required my highest level preparedness to intervene emergently and I personally spent this critical care time directly and personally managing the patient. This critical care time included: Obtaining a history; Examining the patient; Pulse oximetry; Ordering and reviewing of studies; Arranging urgent treatment with development of a management plan; Evaluation of patients response to treatment; Frequent reassessment discussions with other providers. This critical care time was performed to assess and manage the high probability of imminent life-threatening deterioration that could result in multiorgan failure. It was exclusive of separate billable procedures and treating other patients and teaching time. Total Critical Care Time in Minutes: 40 Discharge Plan Discharge Clinical Impression: Urinary tract infection, Sepsis, Altered mental status, Kidney stone Patient Disposition: [facility] Prescriptions: No Action aspirin 81 mg tablet,delayed release (DR/EC) 81 mg PO DAILY latanoprost 0.005 % drops 1 drp OPHTHALMIC (EYE) HS Rx Instructions: BOTH EYES risperidone 2 mg tablet 2 mg PO BID famotidine 20 mg tablet 20 mg PO HS pantoprazole 40 mg tablet,delayed release (DR/EC) 40 mg PO DAILY dorzolamide-timolol 22.3-6.8 mg/mL drops 1 drp OPHTHALMIC (EYE) BID Rx Instructions: BOTH EYES hydrochlorothiazide 25 mg tablet 25 mg PO DAILY fluticasone propionate 50 mcg/actuation spray,suspension 2 spray INTRANASAL DAILY insulin aspart U-100 100 unit/mL (3 mL) insulin pen 1 - 7 unit SUBCUT BID@12,18 Rx Instructions: 0-7 UNITS PER SLIDING SCALE duloxetine 60 mg capsule,delayed release(DR/EC) 120 mg PO DAILY insulin glargine [Lantus Solostar U-100 Insulin] 100 unit/mL (3 mL) insulin pen 20 unit SUBCUT HS atorvastatin 10 mg tablet 10 mg PO HS nicotine 21 mg/24 hr patch 24 hour 1 patch topical DAILY Systane Ultra 0.4-0.3 % drops 1 drp ophthalmic (eye) QID Rx Instructions: BOTH EYES polyethylene glycol 3350 [Gavilax] 17 gram/dose powder 17 g PO DAILY Januvia 100 mg tablet 100 mg PO DAILY magnesium oxide 400 mg (241.3 mg magnesium) Tablet 400 mg PO BID Qty: 60 0RF torsemide 20 mg Tablet 20 mg PO DAILY@0800 Qty: 30 0RF acetaminophen 500 mg tablet 1,000 mg PO TID Qty: 180 0RF amlodipine 10 mg tablet 10 mg PO DAILY melatonin 3 mg tablet 6 mg PO HS lidocaine [AsperFlex (lidocaine)] 4 % adhesive patch,medicated 1 patch topical DAILY PRN Rx Instructions: may leave on for up to 12 hrs potassium chloride 20 mEq tablet,ER particles/crystals 20 meq PO BID cholecalciferol (vitamin D3) 25 mcg (1,000 unit) tablet 25 mcg PO DAILY ondansetron 4 mg tablet,disintegrating 4 mg PO Q8-12H PRN (Reason: nausea and vomiting) Qty: 10 0RF diclofenac sodium 1 % gel 4 g TOPICAL QID PRN Rx Instructions: knee pain Stand Alone Forms: MyHealth Info Instructions
--- NOTE | 2023-09-07 19:55 | CRLHL7_ITS ---
For Patients: As a result of the Century Cures Act, medical imaging exams and procedure reports are released immediately into your electronic medical record. You may view this report before your referring provider. If you have questions, please contact your health care provider. INDICATION: Altered mental status. TECHNIQUE: Noncontrast CT images of the brain. COMPARISON: None. FINDINGS: Mild diffuse cerebral volume loss. No mass effect or midline shift. The faith-white differentiation is maintained. No acute intracranial hemorrhage or pathologic extra-axial fluid collection. Suggested mild chronic microvascular ischemic changes. Dense intracranial atherosclerotic calcifications. Thinning of the right ocular lens. The calvarium is intact. The paranasal sinuses and mastoid air cells are clear. IMPRESSION: No acute intracranial hemorrhage or mass effect. Please note that all CT scans at this facility use dose modulation, iterative reconstruction, and/or weight-based dosing when appropriate to reduce radiation dose to as low as reasonably achievable. Dictated by Regan Vang MD @ 09/07/2023 9:24:08 PM (Electronically Signed)
--- NOTE | 2023-09-07 19:56 | CRLHL7_ITS ---
For Patients: As a result of the Century Cures Act, medical imaging exams and procedure reports are released immediately into your electronic medical record. You may view this report before your referring provider. If you have questions, please contact your health care provider. Indication: Abdominal pain Technique: CT through the abdomen and pelvis following 95 mL Isovue 370 IV contrast Comparison: None Findings: Lower chest: Better assessed on concurrent CTA of the chest. Hepatobiliary: No significant parenchymal abnormality is appreciated. Status post cholecystectomy. Spleen: Unremarkable. Pancreas: No acute abnormality appreciated. Adrenal glands: No acute abnormality appreciated. Kidneys: The left kidney is unremarkable. The right kidney demonstrates moderate hydronephrosis extending to a distal ureteral stone which measures 8 millimeters. There is significant enhancement of the ureteral wall and perinephric stranding with delayed nephrogram and striated hypodensities. Bowel: Diverticulosis. No obstruction. No focal perienteric or pericolonic stranding is appreciated. Vascular: No acute abnormality appreciated. Calcified atherosclerosis. Lymph nodes: Shotty nodes. Peritoneum: No free air. No free fluid. : No acute abnormality appreciated. Soft tissues: No acute abnormality appreciated. Bones: Chronic L1 fracture. Degenerative changes of the spine and pelvis. Impression: Obstructing distal right ureteral stone measuring 8 millimeters with moderate hydronephrosis. Striated appearance to the renal parenchyma with significant perinephric stranding and enhancement of the ureteral wall raises the concern for possible superimposed infection/pyelonephritis. Please note that all CT scans at this facility use dose modulation, iterative reconstruction, and/or weight-based dosing when appropriate to reduce radiation dose to as low as reasonably achievable. Dictated by Сергей Lassiter MD @ 09/07/2023 9:43:12 PM (Electronically Signed)
--- NOTE | 2023-09-07 19:56 | CRLHL7_ITS ---
For Patients: As a result of the Century Cures Act, medical imaging exams and procedure reports are released immediately into your electronic medical record. You may view this report before your referring provider. If you have questions, please contact your health care provider. Indication: Tachycardia Technique: CTA of the chest following 95 mL Isovue 370 IV contrast. Comparison: None Findings: Pulmonary arteries: Respiratory motion degradation. No large or central PE is present. Lungs: Scattered linear opacities, may represent atelectasis and/or scarring, with no organized consolidation, effusion, or pneumothorax appreciated. Mediastinum: No acute abnormality appreciated. Lymph nodes: No gross lymphadenopathy. Upper abdomen: Better assessed on dedicated CT of the abdomen and pelvis. Soft tissues: No acute abnormality appreciated. Bones: No acute abnormality appreciated. Impression: Respiratory motion degradation. No large or central pulmonary embolus or other acute abnormality is appreciated to account for patient`s reported symptoms. Please note that all CT scans at this facility use dose modulation, iterative reconstruction, and/or weight-based dosing when appropriate to reduce radiation dose to as low as reasonably achievable. Dictated by Сергей Lassiter MD @ 09/07/2023 9:41:06 PM (Electronically Signed)
--- OUTSIDE RECORDS SUMMARY | 2023-09-07 20:07 | XMS_ITS | CCD ---
Author Name Miguel A Pop NP Address [address] [place] [address] Phone Organization [facility] Phone Care Team Providers Care Deputy Commonwealth'S Attorney Name Role Phone Eleno ALLIE Justo Primary Care Provider Nirmala vailable Unavailable Chronic Care Management Unavaila ble Summary Purpose DataExchange Insurance Providers Payer name Policy type / Coverage type Covered alliance party ID Effective Begin Date Effective End Date [place] Blue [place] Medicaid Blue Cross/Blue Shield [id number] Unknown Medicaid [place] Blue Cross/Blue Shield [id number] Unknown Family history Mother Diagnosis Age At Onset Glaucoma Unknown Brother Diagnosis Age At Onset Visual disturbance/blindness Unknown Glaucoma Unknown Father Diagnosis Age At Onset Stomach cancer Unknown Social History Social History Element Codes Description Effec tive Dates Tobacco history SNOMED CT: 98171414 Current every day smoker 07/01/[address]: 639952723 No Alcohol Consum ption 07/01/2022 Allergies, Adverse Reactions, Alerts Substance Reaction Codes Entered Date Inactivated Date Status Bee Sting Unknown 03/03/2022 No Inactive Date Ac tive NSAIDS Unknown 03/03/2022 No Inactive Date Ac tive PENICILLINS Unknown 03/03/2022 No Inactive Date Active losartan RxNorm: 923351 03/03/2022 No Inactive Da te Active aspirin Unknown 03/03/2022 No Inactive Date Ac tive tramadol RxNorm: 58398 03/03/2022 No Inactive Marek e Active Other: Unknown 03/03/2022 No Inactive Date Ac tive VARENICLINE Unknown 03/03/2022 No Inactive Date Active Problems Condition Codes Effective Dates Condition St atus Hypokalemia ICD-10: E87.6 ICD-9: 276.8 04/27/2023 Active Chronic pain ICD-10: G89.29 ICD-9: 338.29 03/29/2023 [...] ICD-10: R51.9 ICD-9: 784.0 03/03/2022 Active 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 ICD-10: Z79.4 03/03 Active Medications Medication Codes Instructions Start Date Stop Date Status Fill Instructions Humalog KwikPen (U-100) Insulin 100 unit/mL subcutaneous RxNorm: 4163275 Inject 0-7 Unit(s) Subcutaneous Inject per sliding scale BID before lunch and dinner 04/25/19 24 024 Inactive melatonin 3 mg tablet RxNorm: 153291 Take 1 Tablet(s) Oral QHS every night at bedtime 02/29/20 23 024 Active 02/28/2023 PROACTIVE REFILL REQUEST FOR NEXT CYCLE PLEASE THANK YOU potassium chloride ER 20 mEq tablet,extended release(part/cryst) RxNorm: 9674410 Take 2 Tablet(s) Oral QD 02/29/20 23 024 Active 02/28/2023 PROACTIVE REFILL REQUEST FOR NEXT CYCLE PLEASE THANK YOU atorvastatin 10 mg tablet RxNorm: 224833 Take 1 Tablet(s) Oral QD 01/06/20 024 Active 01/05/2023 PROACTIVE REFILL REQUEST FOR NEXT CYCLE PLEASE THANK YOU fluticasone propionate 50 mcg/actuation nasal spray,suspension RxNorm: 7695485 [place] 2 [place] Nasal QD - Daily both nostrils 12/20/19 No Stop Date Active nicotine 21 mg/24 hr daily transdermal patch RxNorm: 036612 Apply 1 Transdermal QD 12/02/19 23 023 Inactive nicotine 21 mg/24 hr daily transdermal patch RxNorm: 641364 Apply 1 Transdermal QD 11/29/19 23 023 Inactive loratadine 10 mg tablet RxNorm: 496840 Take 1 Tablet(s) Oral QD as needed 11/23/19 23 024 Inactive loratadine 10 mg tablet RxNorm: 000001 Take 1 Tablet(s) Oral QD as needed 11/23/19 23 023 Inactive nicotine 21 mg/24 hr daily transdermal patch RxNorm: 033466 Apply 1 Transdermal QD 11/16/19 23 023 Inactive aspirin 81 mg tablet,delayed release RxNorm: 958909 Take 1 Tablet(s) Oral QD 11/15/19 23 024 Active 2ND REQUEST 11/11/2022 NEED KIM PLEASE THANK YOU nicotine 21 mg/24 hr daily transdermal patch RxNorm: 190670 Apply 1 Transdermal QD 11/02/19 23 023 Inactive amlodipine 10 mg tablet RxNorm: 965168 Take 1 Tablet(s) Oral QD 10/20/19 23 024 Active nicotine 21 mg/24 hr daily transdermal patch RxNorm: 987335 APPLY 1 PATCH ONCE DAILY 10/18/19 23 023 Inactive Pen Needle 30 gauge x 516 RxNorm: Use 1 Unit(s) TID Use as directed to administer insulin up to 3x daily 10/12/19 23 024 Inactive cholecalciferol (vitamin D3) 25 mcg (1,000 unit) tablet RxNorm: 719426 TAKE 1 TABLET BY MOUTH DAILY (1,000 UNITS) 09/14/19 024 Active 09/13/2022 PROACTIVE REFILL REQUEST FOR NEXT CYCLE PLEASE THANK YOU Systane Ultra 0.4 %-0.3 % eye drops RxNorm: 180755 Instill 1 Drop(s) Both eyes QID 09/06/19 No Stop Date Active diclofenac 1 % topical gel RxNorm: 574471 Apply 4 Gram(s) Topical QID (bilateral knees or area of pain per patient's request) 09/01/19 No Stop Date Active acetaminophen 325 mg tablet RxNorm: 858098 Take 1 Tablet(s) Oral Q4H every four hours as needed 09/01/19 No Stop Date Active Aspercreme (lidocaine) 4 % topical patch RxNorm: 9127882 Apply 1 Patch Topical QD (on for 12 hours, off for 12 hours) 09/01/19 024 Inactive Lantus Solostar U-100 Insulin 100 unit/mL (3 mL) subcutaneous pen RxNorm: 877624 Inject 20 Unit(s) Subcutaneous QHS every night at bedtime 09/01/19 23 024 Inactive Pen Needle 30 gauge x 16 RxNorm: Use as directed to administer insulin up to 3x daily 09/01/19 23 023 Inactive Humalog KwikPen (U-100) Insulin 100 unit/mL subcutaneous RxNorm: 2165294 Unit(s) Subcutaneous Inject per sliding scale BID before lunch and dinner 09/01/19 23 024 Inactive melatonin 3 mg tablet RxNorm: 005896 Take 2 Tablet(s) Oral QHS every night at bedtime as needed (may repeat once) 09/01/19 23 023 Inactive hydrochlorothiazide 25 mg tablet RxNorm: 408932 Take 1 Tablet(s) Oral QD 07/23/19 23 024 Inactive 2nd REQUEST FOR REFILLS 07-22-2022 NEED KIM PLEASE = THANK YOU Januvia 100 mg tablet RxNorm: 080738 Take 1 Tablet(s) Oral QD 07/23/19 23 023 Inactive 2nd REQUEST FOR REFILLS 07-22-2022 NEED KIM PLEASE = THANK YOU potassium chloride ER 10 mEq capsule,extended release RxNorm: 891510 TAKE 1 CAPSULE BY MOUTH TWICE DAILY WITH MEAL(S) 07/23/19 23 023 Inactive 2nd REQUEST FOR REFILLS 07-22-2022 NEED KIM PLEASE = THANK YOU duloxetine 60 mg capsule,delayed release RxNorm: 408492 Take 2 Capsule(s) Oral QD 07/23/19 23 023 Inactive 2nd REQUEST FOR REFILLS 07-22-2022 NEED KIM PLEASE = THANK YOU pantoprazole 40 mg tablet,delayed release RxNorm: 110330 TAKE 1 TABLET BY MOUTH EVERY MORNING BEFORE BREAKFAST 07/23/19 23 023 Inactive 2nd REQUEST FOR REFILLS 07-22-2022 NEED KIM PLEASE = THANK YOU magnesium oxide 400 mg (241.3 mg magnesium) tablet RxNorm: 505445 Take 1 Tablet(s) Oral BID 07/23/19 23 023 Inactive 2nd REQUEST FOR REFILLS 07-22-2022 NEED KIM PLEASE = THANK YOU acetaminophen 500 mg tablet RxNorm: 377105 Take 2 Tablet(s) Oral TID 07/23/19 23 023 Inactive 2nd REQUEST FOR REFILLS 07-22-2022 NEED KIM PLEASE = THANK YOU risperidone 2 mg tablet RxNorm: 286166 Take 1 Tablet(s) Oral BID 07/23/19 23 023 Inactive 2nd REQUEST FOR REFILLS 07-22-2022 NEED KIM PLEASE = THANK YOU buprenorphine HCl 2 mg sublingual tablet RxNorm: 582434 Take 1 Tablet(s) Sublingual TID 07/19/19 23 023 Inactive buprenorphine HCl 2 mg sublingual tablet RxNorm: 377479 Take 1 Tablet(s) Sublingual TID 07/19/19 23 023 Inactive oxycodone 5 mg tablet RxNorm: 2371689 Take 1 Tablet(s) Oral BID x7 days then decrease to 1 tab once daily x 7 days then d/c 07/09/19 23 023 Inactive latanoprost 0.005 % eye drops RxNorm: 953702 Take 1 Drop(s) Both eyes QHS every night at bedtime 07/07/19 23 023 Inactive buprenorphine 5 mcg/hour weekly transdermal patch RxNorm: 733697 Apply 1 Transdermal once every 7 days 07/06/19 23 023 Inactive zolpidem 5 mg tablet RxNorm: 371773 Take 1 Tablet(s) Oral QHS every night at bedtime 07/06/19 23 023 Inactive buprenorphine 5 mcg/hour weekly transdermal patch RxNorm: 434181 Apply 1 Transdermal once every 7 days 07/06/19 23 023 Inactive start after stops oxycodone. belbuca film not covered famotidine 20 mg tablet RxNorm: 047471 Give 1 Tablet(s) Oral QHS every night at bedtime 07/02/19 23 024 Inactive torsemide 20 mg tablet RxNorm: 424519 Take 1 Tablet(s) Oral QAM every morning 07/02/19 23 024 Inactive dorzolamide 22.3 mg-timolol 6.8 mg/mL eye drops RxNorm: 8589126 Apply 1 Drop(s) Both eyes BID 07/02/19 23 024 Inactive acetaminophen 500 mg tablet RxNorm: 441573 Take 2 Tablet(s) Oral TID 07/02/19 23 023 Inactive amlodipine 5 mg tablet RxNorm: 752026 Take 1 Tablet(s) Oral QD 07/02/19 23 023 Inactive nicotine 21 mg/24 hr daily transdermal patch RxNorm: 898482 Apply 1 Patch Transdermal QD Remove old patch prior to placing the new one 07/02/19 23 023 Inactive gabapentin 600 mg tablet RxNorm: 857558 Take 1 Tablet(s) Oral TID 07/02/19 23 023 Inactive risperidone 2 mg tablet RxNorm: 483895 Take 1 Tablet(s) Oral BID 04/14 023 Inactive pantoprazole 40 mg intravenous solution RxNorm: 770885 Take 1 Tablet(s) Intravenous QAM every morning 07/02/19 023 Inactive Januvia 100 mg tablet RxNorm: 548990 Take 1 Tablet(s) Oral QD 07/02/19 023 Inactive atorvastatin 10 mg tablet RxNorm: 420191 Take 1 Tablet(s) Oral QHS every night at bedtime 07/02/19 023 Inactive potassium chloride ER 10 mEq tablet,extended release RxNorm: 801832 Take 1 Tablet(s) Oral BID 07/02/19 023 Inactive Belbuca 75 mcg buccal film RxNorm: 2019145 Take 1/2 film (37.5mcg) (cut diagonally) BID (start AFTER stopping oxycodone) 07/02/19 023 Inactive start belbuca in 7 days AFTER patient stops oxycodone aspirin 81 mg tablet,delayed release RxNorm: 674482 Take 1 Tablet(s) Oral QD 07/02/19 023 Inactive latanoprost 0.005 % eye drops RxNorm: 494610 Take 1 Drop(s) Both eyes QHS every night at bedtime 07/02/19 023 Inactive Systane Ultra 0.4 %-0.3 % eye drops RxNorm: 243478 Apply 1 Drop(s) Both eyes QID 07/02/19 023 Inactive Lantus Solostar U-100 Insulin 100 unit/mL (3 mL) subcutaneous pen RxNorm: 775895 Take 40 Unit(s) Subcutaneous QHS every night at bedtime 07/02/19 023 Inactive oxybutynin chloride 5 mg tablet RxNorm: 054291 Administer 1 Tablet(s) Oral QHS every night at bedtime 07/02/19 023 Inactive Miralax 17 gram oral powder packet RxNorm: 732517 Take 1 Packet Oral QD 07/02/19 023 Inactive hydrochlorothiazide 25 mg tablet RxNorm: 406601 Take 1 Tablet(s) Oral QD 07/02/19 23 023 Inactive oxycodone 5 mg tablet RxNorm: 3553245 Take 1 Tablet(s) Oral TID then discontinue and start belbuca (d/c 10mg TID) 07/02/19 023 Inactive stop after 7 days duloxetine 60 mg capsule,delayed release RxNorm: 655298 Take 2 Capsule(s) Oral QD 07/02/19 23 023 Inactive Narcan 4 mg/actuation nasal spray RxNorm: 2852050 Give 1 [place] Nasal UD as directed 1 spray contents of ONE device into nostril, call 911. May repeat once with 2nd device 07/02/19 23 023 Inactive fluticasone propionate 50 mcg/actuation nasal spray,suspension RxNorm: 5221152 [place] 2 [place] Nasal QD - Daily both nostrils 07/02/19 23 023 Inactive magnesium oxide 400 mg (241.3 mg magnesium) tablet RxNorm: 274937 Give 1 Tablet(s) Oral BID 07/02/19 23 023 Inactive cholecalciferol (vitamin D3) 25 mcg (1,000 unit) tablet RxNorm: 924341 Take 1 Tablet(s) Oral QAM every morning 07/02/19 023 Inactive oxycodone 5 mg tablet RxNorm: 4385904 Take 2 Tablet(s) Oral TID PRN 06/04/19 23 023 Inactive azithromycin 250 mg tablet RxNorm: 589134 Take Tablet(s) Oral QD 2 Tablets PO QD x 1 Day - Then 1 Tablet PO QD x 4 Days 05/10/19 23 023 Inactive oxycodone 5 mg tablet RxNorm: 5580731 Take 2 Tablet(s) Oral TID /difficulty breathing 05/03/19 23 023 Inactive oxycodone 5 mg tablet RxNorm: 0552455 Take 2 Tablet(s) Oral TID /difficulty breathing 03/03/20 22 022 Inactive azithromycin 250 mg tablet RxNorm: 588063 Take Tablet(s) Oral QD 2 Tablets PO QD x 1 Day - Then 1 Tablet PO QD x 4 Days 05/10/19 23 02/22/2 023 Inactive zolpidem 5 mg tablet RxNorm: 295324 Take 1 Tablet(s) Oral QHS every night at bedtime as needed 03/28/19 23 023 Inactive Medication Administered No Medication Administered data Results Observation Observation Code Item Item Code Result Date S ervice Location Potassium (K) PARMINDER Potassium (K) 2823-3 Cancelled 4 Unknown PDFReport PDFReport PDFReport 4 Unknown Procedures Procedure Codes Date BEHAV CHNG SMOKING 3-[address]: 2 28386006 CPT-4: 32511 06/29/2022 Reason For Visit No Reason For Visit data Plan of Care Planned Activity Notes Codes Status Date Patient Education: Patient M edication Summary Completed 04/27/2023 Appointment: Yesika Adams WPtel: [phone] [facility] 300 [id number] Telehealth- Est Pt 08/11/2022 Referral: [facility] WPtel: [phone] [address] 100 [id number] Referral Records Received 07/18/2022 Instructions Comment Date Rena is a resident a [facility].?? Previously was seen by doctor in [place].?? First [facility] visit 03/10.?? Arthritis/pain complaints and anxiety are her biggest concerns. Johnnie (in 2020). 2 sons - son Korey visits (From??[place]).??AWV:Colonoscopy due 2024.??Labs:??- Yearly JULY (CMP, CBC with differential, A1c, Lipid panel, TSH, VitD, VitB12, urine microalbumin)- Q6mo JANUARY (BMP )- Q3mo JULY, OCT, JAN, FE, (A1c)*4.30.2023 (urine mircoalbumin creat ratio 14.94 WNL) 09/07/2023
--- OUTSIDE RECORDS SUMMARY | 2023-09-07 20:08 | XMS_ITS | CCD ---
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 Name Role Phone Eleno Justo KELLEY Primary Care Provider Nirmala vailable Unavailable Chronic Care Management Unavaila ble Summary Purpose DataExchange Insurance Providers Payer name Policy type / Coverage type Covered constitution party ID Effective Begin Date Effective End Date [place] Blue Cross/Blue Shield [id number] [place] [id number] Unknown Family history Mother Diagnosis Age At Onset Glaucoma Unknown Brother Diagnosis Age At Onset Visual disturbance/blindness Unknown Glaucoma Unknown Father Diagnosis Age At Onset Stomach cancer Unknown Social History Social History Element Codes Description Effec tive Dates Tobacco history SNOMED CT: 44355319 Current every day smoker 07/01/[address]: 524129003 No Alcohol Consum ption 07/01/2022 Allergies, Adverse Reactions, Alerts Substance Reaction Codes Entered Date Inactivated Date Status Bee Sting Unknown 03/03/2022 No Inactive Date Ac tive NSAIDS Unknown 03/03/2022 No Inactive Date Ac tive PENICILLINS Unknown 03/03/2022 No Inactive Date Active losartan RxNorm: 039523 03/03/2022 No Inactive Da te Active aspirin Unknown 03/03/2022 No Inactive Date Ac tive tramadol RxNorm: 56722 03/03/2022 No Inactive Marek e Active Other: [...] Headache ICD-10: R51.9 ICD-9: 784.0 03/03/2022 Active [facility] (current) use of insulin ICD-10: Z79.4 03/03 Active Medications Medication Codes Instructions Start Date Stop Date Status Fill Instructions Aspercreme (lidocaine) 4 % topical patch RxNorm: 6378409 Apply 1 Patch Topical QD (on for 12 hours, off for 12 hours) 05/15/19 24 025 Active dorzolamide 22.3 mg-timolol 6.8 mg/mL eye drops RxNorm: 4806429 Apply 1 Drop(s) Both eyes BID 04/27/19 24 025 Active Humalog JerzyPen (U-100) Insulin 100 unit/mL subcutaneous RxNorm: 7383392 Inject 0-7 Unit(s) Subcutaneous Inject per sliding scale BID before lunch and dinner 04/25/19 24 024 Inactive melatonin 3 mg tablet RxNorm: 769131 Take 1 Tablet(s) Oral QHS every night at bedtime 02/29/20 024 Active 02/28/2023 PROACTIVE REFILL REQUEST FOR NEXT CYCLE PLEASE THANK YOU potassium chloride ER 20 mEq tablet,extended release(part/cryst) RxNorm: 8405675 Take 2 Tablet(s) Oral QD 02/29/20 23 024 Active 02/28/2023 PROACTIVE REFILL REQUEST FOR NEXT CYCLE PLEASE THANK YOU atorvastatin 10 mg tablet RxNorm: 477811 Take 1 Tablet(s) Oral QD 01/06/20 024 Active 01/05/2023 PROACTIVE REFILL REQUEST FOR NEXT CYCLE PLEASE THANK YOU fluticasone propionate 50 mcg/actuation nasal spray,suspension RxNorm: 8179465 Chester 2 Chester Nasal QD - Daily both nostrils 12/20/19 No Stop Date Active nicotine 21 mg/24 hr daily transdermal patch RxNorm: Apply 1 Transdermal QD 12/02/19 23 023 Inactive nicotine 21 mg/24 hr daily transdermal patch RxNorm: Apply 1 Transdermal QD 11/29/19 23 023 Inactive loratadine 10 mg tablet RxNorm: 461141 Take 1 Tablet(s) Oral QD as needed 11/23/19 23 024 Inactive loratadine 10 mg tablet RxNorm: 418123 Take 1 Tablet(s) Oral QD as needed 11/23/19 23 023 Inactive nicotine 21 mg/24 hr daily transdermal patch RxNorm: Apply 1 Transdermal QD 11/16/19 23 023 Inactive aspirin 81 mg tablet,delayed release RxNorm: 771547 Take 1 Tablet(s) Oral QD 11/15/19 23 024 Active 2ND REQUEST 11/11/2022 NEED KIM PLEASE THANK YOU nicotine 21 mg/24 hr daily transdermal patch RxNorm: 760454 Apply 1 Transdermal QD 11/02/19 023 Inactive amlodipine 10 mg tablet RxNorm: 565705 Take 1 Tablet(s) Oral QD 10/20/19 024 Active nicotine 21 mg/24 hr daily transdermal patch RxNorm: 801130 APPLY 1 PATCH ONCE DAILY 10/18/19 023 Inactive Pen Needle 30 gauge x 516 RxNorm: Use 1 Unit(s) TID Use as directed to administer insulin up to 3x daily 10/12/19 024 Inactive cholecalciferol (vitamin D3) 25 mcg (1,000 unit) tablet RxNorm: 572585 TAKE 1 TABLET BY MOUTH DAILY (1,000 UNITS) 09/14/19 Active 09/13/2022 PROACTIVE REFILL REQUEST FOR NEXT CYCLE PLEASE THANK YOU Systane Ultra 0.4 %-0.3 % eye drops RxNorm: 237240 Instill 1 Drop(s) Both eyes QID 09/06/19 No Stop Date Active diclofenac 1 % topical gel RxNorm: 850446 Apply 4 Gram(s) Topical QID (bilateral knees or area of pain per patient's request) 09/01/19 No Stop Date Active acetaminophen 325 mg tablet RxNorm: 213716 Take 1 Tablet(s) Oral Q4H every four hours as needed 09/01/19 No Stop Date Active Aspercreme (lidocaine) 4 % topical patch RxNorm: 1652511 Apply 1 Patch Topical QD (on for 12 hours, off for 12 hours) 09/01/19 024 Inactive Lantus Solostar U-100 Insulin 100 unit/mL (3 mL) subcutaneous pen RxNorm: 452083 Inject 20 Unit(s) Subcutaneous QHS every night at bedtime 09/01/19 024 Inactive Pen Needle 30 gauge x 16 RxNorm: Use as directed to administer insulin up to 3x daily 09/01/19 023 Inactive Humalog KwikPen (U-100) Insulin 100 unit/mL subcutaneous RxNorm: 1169188 Unit(s) Subcutaneous Inject per sliding scale BID before lunch and dinner 09/01/19 024 Inactive melatonin 3 mg tablet RxNorm: 416065 Take 2 Tablet(s) Oral QHS every night at bedtime as needed (may repeat once) 09/01/19 23 023 Inactive hydrochlorothiazide 25 mg tablet RxNorm: 003134 Take 1 Tablet(s) Oral QD 07/23/19 23 024 Inactive 2nd REQUEST FOR REFILLS 07-22-2022 NEED KIM PLEASE = THANK YOU Januvia 100 mg tablet RxNorm: 071043 Take 1 Tablet(s) Oral QD 07/23/19 23 023 Inactive 2nd REQUEST FOR REFILLS 07-22-2022 NEED KIM PLEASE = THANK YOU potassium chloride ER 10 mEq capsule,extended release RxNorm: 980856 TAKE 1 CAPSULE BY MOUTH TWICE DAILY WITH MEAL(S) 07/23/19 23 023 Inactive 2nd REQUEST FOR REFILLS 07-22-2022 NEED KIM PLEASE = THANK YOU duloxetine 60 mg capsule,delayed release RxNorm: 795066 Take 2 Capsule(s) Oral QD 07/23/19 23 023 Inactive 2nd REQUEST FOR REFILLS 07-22-2022 NEED KIM PLEASE = THANK YOU pantoprazole 40 mg tablet,delayed release RxNorm: 445330 TAKE 1 TABLET BY MOUTH EVERY MORNING BEFORE BREAKFAST 07/23/19 23 023 Inactive 2nd REQUEST FOR REFILLS 07-22-2022 NEED KIM PLEASE = THANK YOU magnesium oxide 400 mg (241.3 mg magnesium) tablet RxNorm: 987444 Take 1 Tablet(s) Oral BID 07/23/19 23 023 Inactive 2nd REQUEST FOR REFILLS 07-22-2022 NEED KIM PLEASE = THANK YOU acetaminophen 500 mg tablet RxNorm: 949192 Take 2 Tablet(s) Oral TID 07/23/19 23 023 Inactive 2nd REQUEST FOR REFILLS 07-22-2022 NEED KIM PLEASE = THANK YOU risperidone 2 mg tablet RxNorm: 912808 Take 1 Tablet(s) Oral BID 07/23/19 23 023 Inactive 2nd REQUEST FOR REFILLS 07-22-2022 NEED KIM PLEASE = THANK YOU buprenorphine HCl 2 mg sublingual tablet RxNorm: 614307 Take 1 Tablet(s) Sublingual TID 07/19/19 23 023 Inactive buprenorphine HCl 2 mg sublingual tablet RxNorm: 069072 Take 1 Tablet(s) Sublingual TID 07/19/19 23 023 Inactive oxycodone 5 mg tablet RxNorm: 1383504 Take 1 Tablet(s) Oral BID x7 days then decrease to 1 tab once daily x 7 days then d/c 07/09/19 23 023 Inactive latanoprost 0.005 % eye drops RxNorm: 837577 Take 1 Drop(s) Both eyes QHS every night at bedtime 07/07/19 23 023 Inactive buprenorphine 5 mcg/hour weekly transdermal patch RxNorm: 184285 Apply 1 Transdermal once every 7 days 07/06/19 23 023 Inactive zolpidem 5 mg tablet RxNorm: 370178 Take 1 Tablet(s) Oral QHS every night at bedtime 07/06/19 23 023 Inactive buprenorphine 5 mcg/hour weekly transdermal patch RxNorm: 147094 Apply 1 Transdermal once every 7 days 07/06/19 23 023 Inactive start after stops oxycodone. belbuca film not covered famotidine 20 mg tablet RxNorm: 945011 Give 1 Tablet(s) Oral QHS every night at bedtime 07/02/19 23 024 Inactive torsemide 20 mg tablet RxNorm: 846522 Take 1 Tablet(s) Oral QAM every morning 07/02/19 23 024 Inactive acetaminophen 500 mg tablet RxNorm: 947617 Take 2 Tablet(s) Oral TID 07/02/19 23 023 Inactive amlodipine 5 mg tablet RxNorm: 374674 Take 1 Tablet(s) Oral QD 07/02/19 23 023 Inactive nicotine 21 mg/24 hr daily transdermal patch RxNorm: 925026 Apply 1 Patch Transdermal QD Remove old patch prior to placing the new one 07/02/19 23 023 Inactive gabapentin 600 mg tablet RxNorm: 245007 Take 1 Tablet(s) Oral TID 07/02/19 23 023 Inactive risperidone 2 mg tablet RxNorm: 912114 Take 1 Tablet(s) Oral BID 07/02/19 23 023 Inactive pantoprazole 40 mg intravenous solution RxNorm: 282949 Take 1 Tablet(s) Intravenous QAM every morning 07/02/19 023 Inactive Januvia 100 mg tablet RxNorm: 887559 Take 1 Tablet(s) Oral QD 07/02/19 023 Inactive atorvastatin 10 mg tablet RxNorm: 536672 Take 1 Tablet(s) Oral QHS every night at bedtime 07/02/19 023 Inactive potassium chloride ER 10 mEq tablet,extended release RxNorm: 499553 Take 1 Tablet(s) Oral BID 07/02/19 023 Inactive Belbuca 75 mcg buccal film RxNorm: 8201555 Take 1/2 film (37.5mcg) (cut diagonally) BID (start AFTER stopping oxycodone) 07/02/19 023 Inactive start belbuca in 7 days AFTER patient stops oxycodone aspirin 81 mg tablet,delayed release RxNorm: 534832 Take 1 Tablet(s) Oral QD 07/02/19 023 Inactive dorzolamide 22.3 mg-timolol 6.8 mg/mL eye drops RxNorm: 6089868 Apply 1 Drop(s) Both eyes BID 07/02/19 23 024 Inactive latanoprost 0.005 % eye drops RxNorm: 700080 Take 1 Drop(s) Both eyes QHS every night at bedtime 07/02/19 023 Inactive Systane Ultra 0.4 %-0.3 % eye drops RxNorm: 374858 Apply 1 Drop(s) Both eyes QID 07/02/19 023 Inactive Lantus Solostar U-100 Insulin 100 unit/mL (3 mL) subcutaneous pen RxNorm: 417555 Take 40 Unit(s) Subcutaneous QHS every night at bedtime 07/02/19 23 023 Inactive oxybutynin chloride 5 mg tablet RxNorm: 712598 Administer 1 Tablet(s) Oral QHS every night at bedtime 07/02/19 23 023 Inactive Miralax 17 gram oral powder packet RxNorm: 563601 Take 1 Packet Oral QD 07/02/19 023 Inactive hydrochlorothiazide 25 mg tablet RxNorm: 209109 Take 1 Tablet(s) Oral QD 07/02/19 023 Inactive oxycodone 5 mg tablet RxNorm: 1179631 Take 1 Tablet(s) Oral TID then discontinue and start belbuca (d/c 10mg TID) 07/02/19 023 Inactive stop after 7 days duloxetine 60 mg capsule,delayed release RxNorm: 210277 Take 2 Capsule(s) Oral QD 07/02/19 023 Inactive Narcan 4 mg/actuation nasal spray RxNorm: 7099561 Give 1 Chester Nasal UD as directed 1 spray contents of ONE device into nostril, call 911. May repeat once with 2nd device 07/02/19 023 Inactive fluticasone propionate 50 mcg/actuation nasal spray,suspension RxNorm: 7580921 Chester 2 Chester Nasal QD - Daily both nostrils 07/02/19 023 Inactive magnesium oxide 400 mg (241.3 mg magnesium) tablet RxNorm: 469586 Give 1 Tablet(s) Oral BID 07/02/19 023 Inactive cholecalciferol (vitamin D3) 25 mcg (1,000 unit) tablet RxNorm: 536032 Take 1 Tablet(s) Oral QAM every morning 07/02/19 023 Inactive oxycodone 5 mg tablet RxNorm: 3149776 Take 2 Tablet(s) Oral TID PRN 06/04/19 23 023 Inactive azithromycin 250 mg tablet RxNorm: 861326 Take Tablet(s) Oral QD 2 Tablets PO QD x 1 Day - Then 1 Tablet PO QD x 4 Days 05/10/19 23 023 Inactive oxycodone 5 mg tablet RxNorm: 8597317 Take 2 Tablet(s) Oral TID /difficulty breathing 05/03/19 23 023 Inactive oxycodone 5 mg tablet RxNorm: 3366903 Take 2 Tablet(s) Oral TID /difficulty breathing 03/03/20 22 022 Inactive azithromycin 250 mg tablet RxNorm: 042692 Take Tablet(s) Oral QD 2 Tablets PO QD x 1 Day - Then 1 Tablet PO QD x 4 Days 05/10/19 23 023 Inactive zolpidem 5 mg tablet RxNorm: 468456 Take 1 Tablet(s) Oral QHS every night at bedtime as needed 03/28/19 023 Inactive Medication Administered No Medication Administered data Procedures Procedure Codes Date BEHAV CHNG SMOKING 3-[address]: 2 [id number] CPT-4: 86224 06/29/2022 Reason For Visit No Reason For Visit data Plan of Care Planned Activity Notes Codes Status Date Referral: [facility] WPtel: [id number] [place], [place] [id number] Referral Records Received 07/18/2022 Instructions Comment Date Rena is a resident a [facility].?? Previously was seen by doctor in [place].?? First [facility] visit 03/10.?? Arthritis/pain complaints and anxiety are her biggest concerns. Johnnie (in 2020). 2 sons - son Korey visits (From[facility]).??AWV:Colonoscopy due 2024.??Labs:??- Yearly JULY (CMP, CBC with differential, A1c, Lipid panel, TSH, VitD, VitB12, urine microalbumin)- Q6mo JANUARY (BMP )- Q3mo JULY, OCT, JAN, APR, (A1c)*4.30.2023 (urine mircoalbumin creat ratio 14.94 WNL) 09/07/2023
--- OUTSIDE RECORDS SUMMARY | 2023-09-07 20:08 | XMS_ITS | CCD ---
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 Role Phone Eleno Justo KELLEY Primary Care Provider Nirmala vailable Unavailable Chronic Care Management Unavaila ble Summary Purpose DataExchange Insurance Providers Payer name Policy type / Coverage type Covered libertarian ID Effective Begin Date Effective End Date [place] Blue Cross/Blue Shield [id number] Unknown [place] [id number] Unknown Family history Mother Diagnosis Age At Onset Glaucoma Unknown Brother Diagnosis Age At Onset Visual disturbance/blindness Unknown Glaucoma Unknown Father Diagnosis Age At Onset Stomach cancer Unknown Social History Social History Element Codes Description Effec tive Dates Tobacco history SNOMED CT: 25855142 Current every day smoker 07/01/[address]: 691022272 No Alcohol Consum ption 07/01/2022 Allergies, Adverse Reactions, Alerts Substance Reaction Codes Entered Date Inactivated Date Status Bee Sting Unknown 03/03/2022 No Inactive Date Ac tive NSAIDS Unknown 03/03/2022 No Inactive Date Ac tive PENICILLINS Unknown 03/03/2022 No Inactive Date Active losartan RxNorm: 221570 03/03/2022 No Inactive Da te Active aspirin Unknown 03/03/2022 No Inactive Date Ac tive tramadol RxNorm: 79464 03/03/2022 No Inactive Marek e Active Other: [...] Headache ICD-10: R51.9 ICD-9: 784.0 03/03/2022 Active [facility] (current) use of insulin ICD-10: Z79.4 03/03 Active Medications Medication Codes Instructions Start Date Stop Date Status Fill Instructions torsemide 20 mg tablet RxNorm: 322105 Take 1 Tablet(s) Oral QAM every morning 05/22/19 24 025 Active 05/22/2023 PROACTIVE REFILL REQUEST FOR NEXT CYCLE PLEASE THANK YOU RX has/will before cycle date famotidine 20 mg tablet RxNorm: 549305 Take 1 Tablet(s) Oral QHS every night at bedtime 05/22/19 24 025 Active 05/22/2023 PROACTIVE REFILL REQUEST FOR NEXT CYCLE PLEASE THANK YOU Aspercreme (lidocaine) 4 % topical patch RxNorm: 7946648 Apply 1 Patch Topical QD (on for 12 hours, off for 12 hours) 05/15/19 24 025 Active dorzolamide 22.3 mg-timolol 6.8 mg/mL eye drops RxNorm: 6361665 Apply 1 Drop(s) Both eyes BID 04/27/19 24 025 Active Humalog KwikPen (U-100) Insulin 100 unit/mL subcutaneous RxNorm: 1534159 Inject 0-7 Unit(s) Subcutaneous Inject per sliding scale BID before lunch and dinner 04/25/19 24 024 Inactive melatonin 3 mg tablet RxNorm: 212603 Take 1 Tablet(s) Oral QHS every night at bedtime 02/29/20 23 024 Active 02/28/2023 PROACTIVE REFILL REQUEST FOR NEXT CYCLE PLEASE THANK YOU potassium chloride ER 20 mEq tablet,extended release(part/cryst) RxNorm: 5650538 Take 2 Tablet(s) Oral QD 02/29/20 23 024 Active 02/28/2023 PROACTIVE REFILL REQUEST FOR NEXT CYCLE PLEASE THANK YOU atorvastatin 10 mg tablet RxNorm: 439890 Take 1 Tablet(s) Oral QD 01/06/20 23 024 Active 01/05/2023 PROACTIVE REFILL REQUEST FOR NEXT CYCLE PLEASE THANK YOU fluticasone propionate 50 mcg/actuation nasal spray,suspension RxNorm: 4674253 [place] 2 [place] Nasal QD - Daily both nostrils 12/20/19 No Stop Date Active nicotine 21 mg/24 hr daily transdermal patch RxNorm: 561309 Apply 1 Transdermal QD 12/02/19 23 023 Inactive nicotine 21 mg/24 hr daily transdermal patch RxNorm: 708491 Apply 1 Transdermal QD 11/29/19 23 023 Inactive loratadine 10 mg tablet RxNorm: 067655 Take 1 Tablet(s) Oral QD as needed 11/23/19 23 024 Inactive loratadine 10 mg tablet RxNorm: 949305 Take 1 Tablet(s) Oral QD as needed 11/23/19 023 Inactive nicotine 21 mg/24 hr daily transdermal patch RxNorm: 885500 Apply 1 Transdermal QD 11/16/19 023 Inactive aspirin 81 mg tablet,delayed release RxNorm: 650735 Take 1 Tablet(s) Oral QD 11/15/19 024 Active 2ND REQUEST 11/11/2022 NEED KIM PLEASE THANK YOU nicotine 21 mg/24 hr daily transdermal patch RxNorm: 440155 Apply 1 Transdermal QD 11/02/19 023 Inactive amlodipine 10 mg tablet RxNorm: 325296 Take 1 Tablet(s) Oral QD 10/20/19 024 Active nicotine 21 mg/24 hr daily transdermal patch RxNorm: APPLY 1 PATCH ONCE DAILY 10/18/19 023 Inactive Pen Needle 30 gauge x 5/16 RxNorm: Use 1 Unit(s) TID Use as directed to administer insulin up to 3x daily 10/12/19 23 024 Inactive cholecalciferol (vitamin D3) 25 mcg (1,000 unit) tablet RxNorm: 922713 TAKE 1 TABLET BY MOUTH DAILY (1,000 UNITS) 09/14/19 024 Active 09/13/2022 PROACTIVE REFILL REQUEST FOR NEXT CYCLE PLEASE THANK YOU Systane Ultra 0.4 %-0.3 % eye drops RxNorm: 204281 Instill 1 Drop(s) Both eyes QID 09/06/19 No Stop Date Active diclofenac 1 % topical gel RxNorm: 754699 Apply 4 Gram(s) Topical QID (bilateral knees or area of pain per patient's request) 09/01/19 No Stop Date Active acetaminophen 325 mg tablet RxNorm: 301802 Take 1 Tablet(s) Oral Q4H every four hours as needed 09/01/19 No Stop Date Active Lantus Solostar U-100 Insulin 100 unit/mL (3 mL) subcutaneous pen RxNorm: 194284 Inject 20 Unit(s) Subcutaneous QHS every night at bedtime 09/01/19 23 024 Inactive Pen Needle 30 gauge x 5/16 RxNorm: Use as directed to administer insulin up to 3x daily 09/01/19 23 023 Inactive Humalog KwikPen (U-100) Insulin 100 unit/mL subcutaneous RxNorm: 4670394 Unit(s) Subcutaneous Inject per sliding scale BID before lunch and dinner 09/01/19 23 024 Inactive Aspercreme (lidocaine) 4 % topical patch RxNorm: 3822882 Apply 1 Patch Topical QD (on for 12 hours, off for 12 hours) 09/01/19 024 Inactive melatonin 3 mg tablet RxNorm: 956982 Take 2 Tablet(s) Oral QHS every night at bedtime as needed (may repeat once) 09/01/19 23 023 Inactive hydrochlorothiazide 25 mg tablet RxNorm: 946889 Take 1 Tablet(s) Oral QD 07/23/19 024 Inactive 2nd REQUEST FOR REFILLS 07-22-2022 NEED KIM PLEASE = THANK YOU Januvia 100 mg tablet RxNorm: 938721 Take 1 Tablet(s) Oral QD 07/23/19 23 023 Inactive 2nd REQUEST FOR REFILLS 07-22-2022 NEED KIM PLEASE = THANK YOU potassium chloride ER 10 mEq capsule,extended release RxNorm: 488141 TAKE 1 CAPSULE BY MOUTH TWICE DAILY WITH MEAL(S) 07/23/19 023 Inactive 2nd REQUEST FOR REFILLS 07-22-2022 NEED KIM PLEASE = THANK YOU duloxetine 60 mg capsule,delayed release RxNorm: 494169 Take 2 Capsule(s) Oral QD 07/23/19 23 023 Inactive 2nd REQUEST FOR REFILLS 07-22-2022 NEED KIM PLEASE = THANK YOU pantoprazole 40 mg tablet,delayed release RxNorm: 307432 TAKE 1 TABLET BY MOUTH EVERY MORNING BEFORE BREAKFAST 07/23/19 23 023 Inactive 2nd REQUEST FOR REFILLS 07-22-2022 NEED KIM PLEASE = THANK YOU magnesium oxide 400 mg (241.3 mg magnesium) tablet RxNorm: 564823 Take 1 Tablet(s) Oral BID 07/23/19 23 023 Inactive 2nd REQUEST FOR REFILLS 07-22-2022 NEED KIM PLEASE = THANK YOU acetaminophen 500 mg tablet RxNorm: 427328 Take 2 Tablet(s) Oral TID 07/23/19 23 023 Inactive 2nd REQUEST FOR REFILLS 07-22-2022 NEED KIM PLEASE = THANK YOU risperidone 2 mg tablet RxNorm: 620867 Take 1 Tablet(s) Oral BID 07/23/19 23 023 Inactive 2nd REQUEST FOR REFILLS 07-22-2022 NEED KIM PLEASE = THANK YOU buprenorphine HCl 2 mg sublingual tablet RxNorm: 532885 Take 1 Tablet(s) Sublingual TID 07/19/19 23 023 Inactive buprenorphine HCl 2 mg sublingual tablet RxNorm: 911338 Take 1 Tablet(s) Sublingual TID 07/19/19 23 023 Inactive oxycodone 5 mg tablet RxNorm: 4887191 Take 1 Tablet(s) Oral BID x7 days then decrease to 1 tab once daily x 7 days then d/c 07/09/19 23 023 Inactive latanoprost 0.005 % eye drops RxNorm: 282936 Take 1 Drop(s) Both eyes QHS every night at bedtime 07/07/19 23 023 Inactive buprenorphine 5 mcg/hour weekly transdermal patch RxNorm: 745995 Apply 1 Transdermal once every 7 days 07/06/19 23 023 Inactive zolpidem 5 mg tablet RxNorm: 708180 Take 1 Tablet(s) Oral QHS every night at bedtime 07/06/19 23 023 Inactive buprenorphine 5 mcg/hour weekly transdermal patch RxNorm: 115579 Apply 1 Transdermal once every 7 days 07/06/19 23 023 Inactive start after stops oxycodone. belbuca film not covered famotidine 20 mg tablet RxNorm: 948909 Give 1 Tablet(s) Oral QHS every night at bedtime 07/02/19 23 024 Inactive torsemide 20 mg tablet RxNorm: 579609 Take 1 Tablet(s) Oral QAM every morning 07/02/19 23 024 Inactive acetaminophen 500 mg tablet RxNorm: 970731 Take 2 Tablet(s) Oral TID 07/02/19 23 023 Inactive amlodipine 5 mg tablet RxNorm: 753779 Take 1 Tablet(s) Oral QD 07/02/19 023 Inactive nicotine 21 mg/24 hr daily transdermal patch RxNorm: 597881 Apply 1 Patch Transdermal QD Remove old patch prior to placing the new one 07/02/19 023 Inactive gabapentin 600 mg tablet RxNorm: 133804 Take 1 Tablet(s) Oral TID 07/02/19 023 Inactive risperidone 2 mg tablet RxNorm: 064564 Take 1 Tablet(s) Oral BID 07/02/19 023 Inactive pantoprazole 40 mg intravenous solution RxNorm: 192893 Take 1 Tablet(s) Intravenous QAM every morning 07/02/19 023 Inactive Januvia 100 mg tablet RxNorm: 395565 Take 1 Tablet(s) Oral QD 07/02/19 023 Inactive atorvastatin 10 mg tablet RxNorm: 633975 Take 1 Tablet(s) Oral QHS every night at bedtime 07/02/19 023 Inactive potassium chloride ER 10 mEq tablet,extended release RxNorm: 332360 Take 1 Tablet(s) Oral BID 07/02/19 023 Inactive Belbuca 75 mcg buccal film RxNorm: 1761159 Take 1/2 film (37.5mcg) (cut diagonally) BID (start AFTER stopping oxycodone) 07/02/19 023 Inactive start belbuca in 7 days AFTER patient stops oxycodone aspirin 81 mg tablet,delayed release RxNorm: 571894 Take 1 Tablet(s) Oral QD 07/02/19 023 Inactive dorzolamide 22.3 mg-timolol 6.8 mg/mL eye drops RxNorm: 8683208 Apply 1 Drop(s) Both eyes BID 07/02/19 024 Inactive latanoprost 0.005 % eye drops RxNorm: 948971 Take 1 Drop(s) Both eyes QHS every night at bedtime 07/02/19 023 Inactive Systane Ultra 0.4 %-0.3 % eye drops RxNorm: 381202 Apply 1 Drop(s) Both eyes QID 07/02/19 23 023 Inactive Lanramos Gallardoisakar U-100 Insulin 100 unit/mL (3 mL) subcutaneous pen RxNorm: 241118 Take 40 Unit(s) Subcutaneous QHS every night at bedtime 07/02/19 023 Inactive oxybutynin chloride 5 mg tablet RxNorm: 712870 Administer 1 Tablet(s) Oral QHS every night at bedtime 07/02/19 023 Inactive Miralax 17 gram oral powder packet RxNorm: 659287 Take 1 Packet Oral QD 07/02/19 023 Inactive hydrochlorothiazide 25 mg tablet RxNorm: 296309 Take 1 Tablet(s) Oral QD 07/02/19 023 Inactive oxycodone 5 mg tablet RxNorm: 0742921 Take 1 Tablet(s) Oral TID then discontinue and start belbuca (d/c 10mg TID) 07/02/19 023 Inactive stop after 7 days duloxetine 60 mg capsule,delayed release RxNorm: 753021 Take 2 Capsule(s) Oral QD 07/02/19 023 Inactive Narcan 4 mg/actuation nasal spray RxNorm: 5598844 Give 1 [place] Nasal UD as directed 1 spray contents of ONE device into nostril, call 911. May repeat once with 2nd device 07/02/19 23 023 Inactive fluticasone propionate 50 mcg/actuation nasal spray,suspension RxNorm: 1962296 [place] 2 [place] Nasal QD - Daily both nostrils 07/02/19 023 Inactive magnesium oxide 400 mg (241.3 mg magnesium) tablet RxNorm: 948810 Give 1 Tablet(s) Oral BID 07/02/19 23 023 Inactive cholecalciferol (vitamin D3) 25 mcg (1,000 unit) tablet RxNorm: 976718 Take 1 Tablet(s) Oral QAM every morning 07/02/19 023 Inactive oxycodone 5 mg tablet RxNorm: 1558242 Take 2 Tablet(s) Oral TID PRN 06/04/19 23 023 Inactive azithromycin 250 mg tablet RxNorm: 775247 Take Tablet(s) Oral QD 2 Tablets PO QD x 1 Day - Then 1 Tablet PO QD x 4 Days 05/10/19 23 023 Inactive oxycodone 5 mg tablet RxNorm: 5967131 Take 2 Tablet(s) Oral TID /difficulty breathing 05/03/19 023 Inactive oxycodone 5 mg tablet RxNorm: 3271467 Take 2 Tablet(s) Oral TID /difficulty breathing 03/03/20 22 022 Inactive azithromycin 250 mg tablet RxNorm: 121796 Take Tablet(s) Oral QD 2 Tablets PO QD x 1 Day - Then 1 Tablet PO QD x 4 Days 05/10/19 023 Inactive zolpidem 5 mg tablet RxNorm: 149928 Take 1 Tablet(s) Oral QHS every night at bedtime as needed 03/28/19 023 Inactive Medication Administered No Medication Administered data Procedures Procedure Codes Date BEHAV CHNG SMOKING 3-[address]: 2 34049821 CPT-4: 94279 06/29/2022 Reason For Visit No Reason For Visit data Plan of Care Planned Activity Notes Codes Status Date Referral: [facility]: [id number] [place], [place] [id number] Referral Records Received 07/18/2022 Instructions Comment Date Rena is a resident a [facility].?? Previously was seen by doctor in [place].?? First [facility] visit 03/10.?? Arthritis/pain complaints and anxiety are her biggest concerns. Johnnie (in 2020). 2 sons - son Korey visits (From[facility]).??AWV:Colonoscopy due 2024.??Labs:??- Yearly JULY (CMP, CBC with differential, A1c, Lipid panel, TSH, VitD, VitB12, urine microalbumin)- Q6mo JANUARY (BMP )- Q3mo JULY, OCT, JAN, APR, (A1c)*4.30.2023 (urine mircoalbumin creat ratio 14.94 WNL) 09/07/2023
--- OUTSIDE RECORDS SUMMARY | 2023-09-07 20:08 | XMS_ITS | CCD ---
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 Role Phone Eleno Justo KELLEY Primary Care Provider Nirmala vailable Unavailable Chronic Care Management Unavaila ble Summary Purpose DataExchange Insurance Providers Payer name Policy type / Coverage type Covered green party ID Effective Begin Date Effective End Date [place] Blue Cross/Blue Shield [id number] Unknown [place] [id number] Unknown Family history Mother Diagnosis Age At Onset Glaucoma Unknown Brother Diagnosis Age At Onset Visual disturbance/blindness Unknown Glaucoma Unknown Father Diagnosis Age At Onset Stomach cancer Unknown Social History Social History Element Codes Description Effec tive Dates Tobacco history SNOMED CT: 91416874 Current every day smoker 07/01/[address]: 562780801 No Alcohol Consum ption 07/01/2022 Allergies, Adverse Reactions, Alerts Substance Reaction Codes Entered Date Inactivated Date Status Bee Sting Unknown 03/03/2022 No Inactive Date Ac tive NSAIDS Unknown 03/03/2022 No Inactive Date Ac tive PENICILLINS Unknown 03/03/2022 No Inactive Date Active losartan RxNorm: 469149 03/03/2022 No Inactive Da te Active aspirin Unknown 03/03/2022 No Inactive Date Ac tive tramadol RxNorm: 06901 03/03/2022 No Inactive Marek e Active Other: [...] Headache ICD-10: R51.9 ICD-9: 784.0 03/03/2022 Active FDC (current) use of insulin ICD-10: Z79.4 03/03 Active Medications Medication Codes Instructions Start Date Stop Date Status Fill Instructions dorzolamide 22.3 mg-timolol 6.8 mg/mL eye drops RxNorm: 9801934 Apply 1 Drop(s) Both eyes BID 04/27/19 24 025 Active Humalog KwikPen (U-100) Insulin 100 unit/mL subcutaneous RxNorm: 0497170 Inject 0-7 Unit(s) Subcutaneous Inject per sliding scale BID before lunch and dinner 04/25/19 24 024 Inactive melatonin 3 mg tablet RxNorm: 370851 Take 1 Tablet(s) Oral QHS every night at bedtime 02/29/20 23 024 Active 02/28/2023 PROACTIVE REFILL REQUEST FOR NEXT CYCLE PLEASE THANK YOU potassium chloride ER 20 mEq tablet,extended release(part/cryst) RxNorm: 1821064 Take 2 Tablet(s) Oral QD 02/29/20 23 024 Active 02/28/2023 PROACTIVE REFILL REQUEST FOR NEXT CYCLE PLEASE THANK YOU atorvastatin 10 mg tablet RxNorm: 609431 Take 1 Tablet(s) Oral QD 01/06/20 024 Active 01/05/2023 PROACTIVE REFILL REQUEST FOR NEXT CYCLE PLEASE THANK YOU fluticasone propionate 50 mcg/actuation nasal spray,suspension RxNorm: 4604873 [place] 2 [place] Nasal QD - Daily both nostrils 12/20/19 No Stop Date Active nicotine 21 mg/24 hr daily transdermal patch RxNorm: 088535 Apply 1 Transdermal QD 12/02/19 23 023 Inactive nicotine 21 mg/24 hr daily transdermal patch RxNorm: 276915 Apply 1 Transdermal QD 11/29/19 23 023 Inactive loratadine 10 mg tablet RxNorm: 981148 Take 1 Tablet(s) Oral QD as needed 11/23/19 23 024 Inactive loratadine 10 mg tablet RxNorm: 692749 Take 1 Tablet(s) Oral QD as needed 11/23/19 23 023 Inactive nicotine 21 mg/24 hr daily transdermal patch RxNorm: 229727 Apply 1 Transdermal QD 11/16/19 23 023 Inactive aspirin 81 mg tablet,delayed release RxNorm: 450263 Take 1 Tablet(s) Oral QD 11/15/19 23 024 Active 2ND REQUEST 11/11/2022 NEED KIM PLEASE THANK YOU nicotine 21 mg/24 hr daily transdermal patch RxNorm: 048171 Apply 1 Transdermal QD 11/02/19 23 023 Inactive amlodipine 10 mg tablet RxNorm: 991386 Take 1 Tablet(s) Oral QD 10/20/19 23 024 Active nicotine 21 mg/24 hr daily transdermal patch RxNorm: 426641 APPLY 1 PATCH ONCE DAILY 10/18/19 23 023 Inactive Pen Needle 30 gauge x 516 RxNorm: Use 1 Unit(s) TID Use as directed to administer insulin up to 3x daily 10/12/19 024 Inactive cholecalciferol (vitamin D3) 25 mcg (1,000 unit) tablet RxNorm: 296205 TAKE 1 TABLET BY MOUTH DAILY (1,000 UNITS) 09/14/19 024 Active 09/13/2022 PROACTIVE REFILL REQUEST FOR NEXT CYCLE PLEASE THANK YOU Systane Ultra 0.4 %-0.3 % eye drops RxNorm: 900279 Instill 1 Drop(s) Both eyes QID 09/06/19 No Stop Date Active diclofenac 1 % topical gel RxNorm: 364528 Apply 4 Gram(s) Topical QID (bilateral knees or area of pain per patient's request) 09/01/19 No Stop Date Active acetaminophen 325 mg tablet RxNorm: 823825 Take 1 Tablet(s) Oral Q4H every four hours as needed 09/01/19 No Stop Date Active Aspercreme (lidocaine) 4 % topical patch RxNorm: 4911976 Apply 1 Patch Topical QD (on for 12 hours, off for 12 hours) 09/01/19 024 Inactive Lantus Solostar U-100 Insulin 100 unit/mL (3 mL) subcutaneous pen RxNorm: 816629 Inject 20 Unit(s) Subcutaneous QHS every night at bedtime 09/01/19 024 Inactive Pen Needle 30 gauge x 08/02 RxNorm: Use as directed to administer insulin up to 3x daily 09/01/19 023 Inactive Humalog KwikPen (U-100) Insulin 100 unit/mL subcutaneous RxNorm: 1091477 Unit(s) Subcutaneous Inject per sliding scale BID before lunch and dinner 09/01/19 024 Inactive melatonin 3 mg tablet RxNorm: 381406 Take 2 Tablet(s) Oral QHS every night at bedtime as needed (may repeat once) 09/01/19 023 Inactive hydrochlorothiazide 25 mg tablet RxNorm: 419276 Take 1 Tablet(s) Oral QD 07/23/19 23 024 Inactive 2nd REQUEST FOR REFILLS 07-22-2022 NEED KIM PLEASE = THANK YOU Januvia 100 mg tablet RxNorm: 051004 Take 1 Tablet(s) Oral QD 07/23/19 23 023 Inactive 2nd REQUEST FOR REFILLS 07-22-2022 NEED KIM PLEASE = THANK YOU potassium chloride ER 10 mEq capsule,extended release RxNorm: 426188 TAKE 1 CAPSULE BY MOUTH TWICE DAILY WITH MEAL(S) 07/23/19 23 023 Inactive 2nd REQUEST FOR REFILLS 07-22-2022 NEED KIM PLEASE = THANK YOU duloxetine 60 mg capsule,delayed release RxNorm: 109707 Take 2 Capsule(s) Oral QD 07/23/19 23 023 Inactive 2nd REQUEST FOR REFILLS 07-22-2022 NEED KIM PLEASE = THANK YOU pantoprazole 40 mg tablet,delayed release RxNorm: 811183 TAKE 1 TABLET BY MOUTH EVERY MORNING BEFORE BREAKFAST 07/23/19 23 023 Inactive 2nd REQUEST FOR REFILLS 07-22-2022 NEED KIM PLEASE = THANK YOU magnesium oxide 400 mg (241.3 mg magnesium) tablet RxNorm: 674105 Take 1 Tablet(s) Oral BID 07/23/19 23 023 Inactive 2nd REQUEST FOR REFILLS 07-22-2022 NEED KIM PLEASE = THANK YOU acetaminophen 500 mg tablet RxNorm: 565640 Take 2 Tablet(s) Oral TID 07/23/19 23 023 Inactive 2nd REQUEST FOR REFILLS 07-22-2022 NEED KIM PLEASE = THANK YOU risperidone 2 mg tablet RxNorm: 941384 Take 1 Tablet(s) Oral BID 07/23/19 23 023 Inactive 2nd REQUEST FOR REFILLS 07-22-2022 NEED KIM PLEASE = THANK YOU buprenorphine HCl 2 mg sublingual tablet RxNorm: 576538 Take 1 Tablet(s) Sublingual TID 07/19/19 23 023 Inactive buprenorphine HCl 2 mg sublingual tablet RxNorm: 758096 Take 1 Tablet(s) Sublingual TID 07/19/19 23 023 Inactive oxycodone 5 mg tablet RxNorm: 9504289 Take 1 Tablet(s) Oral BID x7 days then decrease to 1 tab once daily x 7 days then d/c 07/09/19 23 023 Inactive latanoprost 0.005 % eye drops RxNorm: 677466 Take 1 Drop(s) Both eyes QHS every night at bedtime 07/07/19 23 023 Inactive buprenorphine 5 mcg/hour weekly transdermal patch RxNorm: 682182 Apply 1 Transdermal once every 7 days 07/06/19 23 023 Inactive zolpidem 5 mg tablet RxNorm: 654754 Take 1 Tablet(s) Oral QHS every night at bedtime 07/06/19 23 023 Inactive buprenorphine 5 mcg/hour weekly transdermal patch RxNorm: 747765 Apply 1 Transdermal once every 7 days 07/06/19 23 023 Inactive start after stops oxycodone. belbuca film not covered famotidine 20 mg tablet RxNorm: 448502 Give 1 Tablet(s) Oral QHS every night at bedtime 07/02/19 23 024 Inactive torsemide 20 mg tablet RxNorm: 376490 Take 1 Tablet(s) Oral QAM every morning 07/02/19 23 024 Inactive dorzolamide 22.3 mg-timolol 6.8 mg/mL eye drops RxNorm: 3095886 Apply 1 Drop(s) Both eyes BID 07/02/19 23 024 Inactive acetaminophen 500 mg tablet RxNorm: 448119 Take 2 Tablet(s) Oral TID 07/02/19 23 023 Inactive amlodipine 5 mg tablet RxNorm: 557590 Take 1 Tablet(s) Oral QD 07/02/19 23 023 Inactive nicotine 21 mg/24 hr daily transdermal patch RxNorm: 654776 Apply 1 Patch Transdermal QD Remove old patch prior to placing the new one 07/02/19 23 023 Inactive gabapentin 600 mg tablet RxNorm: 645953 Take 1 Tablet(s) Oral TID 07/02/19 23 023 Inactive risperidone 2 mg tablet RxNorm: 937078 Take 1 Tablet(s) Oral BID 04 023 Inactive pantoprazole 40 mg intravenous solution RxNorm: 076551 Take 1 Tablet(s) Intravenous QAM every morning 07/02/19 023 Inactive Januvia 100 mg tablet RxNorm: 211421 Take 1 Tablet(s) Oral QD 07/02/19 023 Inactive atorvastatin 10 mg tablet RxNorm: 343148 Take 1 Tablet(s) Oral QHS every night at bedtime 07/02/19 023 Inactive potassium chloride ER 10 mEq tablet,extended release RxNorm: 563263 Take 1 Tablet(s) Oral BID 07/02/19 023 Inactive Bel[place] 75 mcg buccal film RxNorm: 3128034 Take 1/2 film (37.5mcg) (cut diagonally) BID (start AFTER stopping oxycodone) 07/02/19 023 Inactive start belbuca in 7 days AFTER patient stops oxycodone aspirin 81 mg tablet,delayed release RxNorm: 511151 Take 1 Tablet(s) Oral QD 07/02/19 023 Inactive latanoprost 0.005 % eye drops RxNorm: 570643 Take 1 Drop(s) Both eyes QHS every night at bedtime 07/02/19 023 Inactive Systane Ultra 0.4 %-0.3 % eye drops RxNorm: 397216 Apply 1 Drop(s) Both eyes QID 07/02/19 023 Inactive Lantus Solostar U-100 Insulin 100 unit/mL (3 mL) subcutaneous pen RxNorm: 651639 Take 40 Unit(s) Subcutaneous QHS every night at bedtime 07/02/19 023 Inactive oxybutynin chloride 5 mg tablet RxNorm: 711996 Administer 1 Tablet(s) Oral QHS every night at bedtime 07/02/19 023 Inactive Miralax 17 gram oral powder packet RxNorm: 304258 Take 1 Packet Oral QD 07/02/19 23 023 Inactive hydrochlorothiazide 25 mg tablet RxNorm: 463110 Take 1 Tablet(s) Oral QD 07/02/19 23 023 Inactive oxycodone 5 mg tablet RxNorm: 4471500 Take 1 Tablet(s) Oral TID then discontinue and start belbuca (d/c 10mg TID) 07/02/19 23 023 Inactive stop after 7 days duloxetine 60 mg capsule,delayed release RxNorm: 833809 Take 2 Capsule(s) Oral QD 07/02/19 23 023 Inactive Narcan 4 mg/actuation nasal spray RxNorm: 8096001 Give 1 [place] Nasal UD as directed 1 spray contents of ONE device into nostril, call 911. May repeat once with 2nd device 07/02/19 23 023 Inactive fluticasone propionate 50 mcg/actuation nasal spray,suspension RxNorm: 3647273 [place] 2 [place] Nasal QD - Daily both nostrils 07/02/19 23 023 Inactive magnesium oxide 400 mg (241.3 mg magnesium) tablet RxNorm: 210266 Give 1 Tablet(s) Oral BID 07/02/19 23 023 Inactive cholecalciferol (vitamin D3) 25 mcg (1,000 unit) tablet RxNorm: 755302 Take 1 Tablet(s) Oral QAM every morning 07/02/19 023 Inactive oxycodone 5 mg tablet RxNorm: 4594506 Take 2 Tablet(s) Oral TID PRN 06/04/19 23 023 Inactive azithromycin 250 mg tablet RxNorm: 920925 Take Tablet(s) Oral QD 2 Tablets PO QD x 1 Day - Then 1 Tablet PO QD x 4 Days 05/10/19 23 023 Inactive oxycodone 5 mg tablet RxNorm: 6638638 Take 2 Tablet(s) Oral TID /difficulty breathing 05/03/19 23 023 Inactive oxycodone 5 mg tablet RxNorm: 7716116 Take 2 Tablet(s) Oral TID /difficulty breathing 03/03/20 22 022 Inactive azithromycin 250 mg tablet RxNorm: 667845 Take Tablet(s) Oral QD 2 Tablets PO QD x 1 Day - Then 1 Tablet PO QD x 4 Days 05/10/19 23 023 Inactive zolpidem 5 mg tablet RxNorm: 465970 Take 1 Tablet(s) Oral QHS every night at bedtime as needed 03/28/19 023 Inactive Medication Administered No Medication Administered data Procedures Procedure Codes Date BEHAV CHNG SMOKING 3-[address]: 2 [id number] CPT-4: 20824 06/29/2022 Reason For Visit No Reason For Visit data Plan of Care Planned Activity Notes Codes Status Date Referral: [facility] WPtel: [id number] [facility] [id number] [place] Referral Records Received 07/18/2022 Instructions Comment Date Rena is a resident a [facility].?? Previously was seen by doctor in [place].?? First [facility] visit 03/10.?? Arthritis/pain complaints and anxiety are her biggest concerns. Johnnie (in 2020). 2 sons - son Korey visits (From[facility]).??AWV:Colonoscopy due 2024.??Labs:??- Yearly JULY (CMP, CBC with differential, A1c, Lipid panel, TSH, VitD, VitB12, urine microalbumin)- Q6mo JANUARY (BMP )- Q3mo JULY, OCT, JAN, APR, (A1c)*4.30.2023 (urine mircoalbumin creat ratio 14.94 WNL) 09/07/2023
--- OUTSIDE RECORDS SUMMARY | 2023-09-07 20:09 | XMS_ITS | CCD ---
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 Care Materials Technician Name Role Phone Eleno Justo KELLEY Primary Care Provider Nirmala vailable Unavailable Chronic Care Management Unavaila ble Summary Purpose DataExchange Insurance Providers Payer name Policy type / Coverage type Covered republican ID Effective Begin Date Effective End Date [place] Blue Cross/Blue Shield [id number] Unknown [place] Blue [place]/Blue [place] [id number] Unknown Family history Mother Diagnosis Age At Onset Glaucoma Unknown Brother Diagnosis Age At Onset Visual disturbance/blindness Unknown Glaucoma Unknown Father Diagnosis Age At Onset Stomach cancer Unknown Social History Social History Element Codes Description Effec tive Dates Tobacco history SNOMED CT: 33303289 Current every day smoker 07/01/[address]: 163958118 No Alcohol Consum ption 07/01/2022 Allergies, Adverse Reactions, Alerts Substance Reaction Codes Entered Date Inactivated Date Status Bee Sting Unknown 03/03/2022 No Inactive Date Ac tive NSAIDS Unknown 03/03/2022 No Inactive Date Ac tive PENICILLINS Unknown 03/03/2022 No Inactive Date Active losartan RxNorm: 090642 03/03/2022 No Inactive Da te Active aspirin Unknown 03/03/2022 No Inactive Date Ac tive tramadol RxNorm: 15116 03/03/2022 No Inactive Marek e Active Other: [...] Start Date Stop Date Status Fill Instructions Banophen 25 mg capsule RxNorm: 1955561 Take 1-2 Capsule(s) Oral Q8H every 8 hours as needed for Allergies 05/24/19 24 No Stop Date Active Banophen 25 mg capsule RxNorm: 3162217 Take 1-2 Capsule(s) Oral Q8H every 8 hours as needed 05/24/19 24 024 Inactive torsemide 20 mg tablet RxNorm: 218078 Take 1 Tablet(s) Oral QAM every morning 05/22/19 24 025 Active 05/22/2023 PROACTIVE REFILL REQUEST FOR NEXT CYCLE PLEASE THANK YOU RX has/will before cycle date famotidine 20 mg tablet RxNorm: 286382 Take 1 Tablet(s) Oral QHS every night at bedtime 05/22/19 24 025 Active 05/22/2023 PROACTIVE REFILL REQUEST FOR NEXT CYCLE PLEASE THANK YOU Aspercreme (lidocaine) 4 % topical patch RxNorm: 1885291 Apply 1 Patch Topical QD (on for 12 hours, off for 12 hours) 05/15/19 24 025 Active dorzolamide 22.3 mg-timolol 6.8 mg/mL eye drops RxNorm: 2789157 Apply 1 Drop(s) Both eyes BID 04/27/19 24 025 Active Humalog KwikPen (U-100) Insulin 100 unit/mL subcutaneous RxNorm: 0621829 Inject 0-7 Unit(s) Subcutaneous Inject per sliding scale BID before lunch and dinner 04/25/19 24 024 Inactive melatonin 3 mg tablet RxNorm: 523158 Take 1 Tablet(s) Oral QHS every night at bedtime 02/29/20 23 024 Active 02/28/2023 PROACTIVE REFILL REQUEST FOR NEXT CYCLE PLEASE THANK YOU potassium chloride ER 20 mEq tablet,extended release(part/cryst) RxNorm: 6214965 Take 2 Tablet(s) Oral QD 02/29/20 23 024 Active 02/28/2023 PROACTIVE REFILL REQUEST FOR NEXT CYCLE PLEASE THANK YOU atorvastatin 10 mg tablet RxNorm: 799018 Take 1 Tablet(s) Oral QD 01/06/20 23 024 Active 01/05/2023 PROACTIVE REFILL REQUEST FOR NEXT CYCLE PLEASE THANK YOU fluticasone propionate 50 mcg/actuation nasal spray,suspension RxNorm: 7197914 [place] 2 [place] Nasal QD - Daily both nostrils 12/20/19 23 No Stop Date Active nicotine 21 mg/24 hr daily transdermal patch RxNorm: 377611 Apply 1 Transdermal QD 12/02/19 23 023 Inactive nicotine 21 mg/24 hr daily transdermal patch RxNorm: 152232 Apply 1 Transdermal QD 11/29/19 023 Inactive loratadine 10 mg tablet RxNorm: 240148 Take 1 Tablet(s) Oral QD as needed 11/23/19 23 024 Inactive loratadine 10 mg tablet RxNorm: 681156 Take 1 Tablet(s) Oral QD as needed 11/23/19 023 Inactive nicotine 21 mg/24 hr daily transdermal patch RxNorm: 217968 Apply 1 Transdermal QD 11/16/19 023 Inactive aspirin 81 mg tablet,delayed release RxNorm: 075155 Take 1 Tablet(s) Oral QD 11/15/19 024 Active 2ND REQUEST 11/11/2022 NEED KIM PLEASE THANK YOU nicotine 21 mg/24 hr daily transdermal patch RxNorm: 231778 Apply 1 Transdermal QD 11/02/19 23 023 Inactive amlodipine 10 mg tablet RxNorm: 243931 Take 1 Tablet(s) Oral QD 10/20/19 23 024 Active nicotine 21 mg/24 hr daily transdermal patch RxNorm: 867788 APPLY 1 PATCH ONCE DAILY 10/18/19 023 Inactive Pen Needle 30 gauge x 5/16 RxNorm: Use 1 Unit(s) TID Use as directed to administer insulin up to 3x daily 10/12/19 024 Inactive cholecalciferol (vitamin D3) 25 mcg (1,000 unit) tablet RxNorm: 073599 TAKE 1 TABLET BY MOUTH DAILY (1,000 UNITS) 09/14/19 23 024 Active 09/13/2022 PROACTIVE REFILL REQUEST FOR NEXT CYCLE PLEASE THANK YOU Systane Ultra 0.4 %-0.3 % eye drops RxNorm: 065564 Instill 1 Drop(s) Both eyes QID 09/06/19 No Stop Date Active diclofenac 1 % topical gel RxNorm: 132971 Apply 4 Gram(s) Topical QID (bilateral knees or area of pain per patient's request) 09/01/19 No Stop Date Active acetaminophen 325 mg tablet RxNorm: 397102 Take 1 Tablet(s) Oral Q4H every four hours as needed 06/14/20 23 No Stop Date Active Lantus Solostar U-100 Insulin 100 unit/mL (3 mL) subcutaneous pen RxNorm: 823901 Inject 20 Unit(s) Subcutaneous QHS every night at bedtime 09/01/19 024 Inactive Pen Needle 30 gauge x 5/16 RxNorm: Use as directed to administer insulin up to 3x daily 09/01/19 23 023 Inactive Humalog KwikPen (U-100) Insulin 100 unit/mL subcutaneous RxNorm: 0585160 Unit(s) Subcutaneous Inject per sliding scale BID before lunch and dinner 09/01/19 024 Inactive Aspercreme (lidocaine) 4 % topical patch RxNorm: 2144198 Apply 1 Patch Topical QD (on for 12 hours, off for 12 hours) 09/01/19 024 Inactive melatonin 3 mg tablet RxNorm: 637262 Take 2 Tablet(s) Oral QHS every night at bedtime as needed (may repeat once) 09/01/19 023 Inactive hydrochlorothiazide 25 mg tablet RxNorm: 759676 Take 1 Tablet(s) Oral QD 07/23/19 23 024 Inactive 2nd REQUEST FOR REFILLS 07-22-2022 NEED KIM PLEASE = THANK YOU Januvia 100 mg tablet RxNorm: 431014 Take 1 Tablet(s) Oral QD 07/23/19 23 023 Inactive 2nd REQUEST FOR REFILLS 07-22-2022 NEED KIM PLEASE = THANK YOU potassium chloride ER 10 mEq capsule,extended release RxNorm: 578617 TAKE 1 CAPSULE BY MOUTH TWICE DAILY WITH MEAL(S) 07/23/19 23 023 Inactive 2nd REQUEST FOR REFILLS 07-22-2022 NEED KIM PLEASE = THANK YOU duloxetine 60 mg capsule,delayed release RxNorm: 781343 Take 2 Capsule(s) Oral QD 07/23/19 23 023 Inactive 2nd REQUEST FOR REFILLS 07-22-2022 NEED KIM PLEASE = THANK YOU pantoprazole 40 mg tablet,delayed release RxNorm: 276913 TAKE 1 TABLET BY MOUTH EVERY MORNING BEFORE BREAKFAST 07/23/19 23 023 Inactive 2nd REQUEST FOR REFILLS 07-22-2022 NEED KIM PLEASE = THANK YOU magnesium oxide 400 mg (241.3 mg magnesium) tablet RxNorm: 470000 Take 1 Tablet(s) Oral BID 07/23/19 23 023 Inactive 2nd REQUEST FOR REFILLS 07-22-2022 NEED KIM PLEASE = THANK YOU acetaminophen 500 mg tablet RxNorm: 630752 Take 2 Tablet(s) Oral TID 07/23/19 23 023 Inactive 2nd REQUEST FOR REFILLS 07-22-2022 NEED KIM PLEASE = THANK YOU risperidone 2 mg tablet RxNorm: 945397 Take 1 Tablet(s) Oral BID 07/23/19 23 023 Inactive 2nd REQUEST FOR REFILLS 07-22-2022 NEED KIM PLEASE = THANK YOU buprenorphine HCl 2 mg sublingual tablet RxNorm: 945207 Take 1 Tablet(s) Sublingual TID 07/19/19 23 023 Inactive buprenorphine HCl 2 mg sublingual tablet RxNorm: 300290 Take 1 Tablet(s) Sublingual TID 07/19/19 23 023 Inactive oxycodone 5 mg tablet RxNorm: 9626816 Take 1 Tablet(s) Oral BID x7 days then decrease to 1 tab once daily x 7 days then d/c 07/09/19 23 023 Inactive latanoprost 0.005 % eye drops RxNorm: 733885 Take 1 Drop(s) Both eyes QHS every night at bedtime 07/07/19 23 023 Inactive buprenorphine 5 mcg/hour weekly transdermal patch RxNorm: 195066 Apply 1 Transdermal once every 7 days 07/06/19 23 023 Inactive zolpidem 5 mg tablet RxNorm: 335749 Take 1 Tablet(s) Oral QHS every night at bedtime 07/06/19 23 023 Inactive buprenorphine 5 mcg/hour weekly transdermal patch RxNorm: 717126 Apply 1 Transdermal once every 7 days 07/06/19 23 023 Inactive start after stops oxycodone. belbuca film not covered acetaminophen 500 mg tablet RxNorm: 414384 Take 2 Tablet(s) Oral TID 07/02/19 23 023 Inactive famotidine 20 mg tablet RxNorm: 111785 Give 1 Tablet(s) Oral QHS every night at bedtime 07/02/19 024 Inactive amlodipine 5 mg tablet RxNorm: 901647 Take 1 Tablet(s) Oral QD 07/02/19 023 Inactive nicotine 21 mg/24 hr daily transdermal patch RxNorm: 766946 Apply 1 Patch Transdermal QD Remove old patch prior to placing the new one 07/02/19 023 Inactive gabapentin 600 mg tablet RxNorm: 285322 Take 1 Tablet(s) Oral TID 07/02/19 023 Inactive risperidone 2 mg tablet RxNorm: 662097 Take 1 Tablet(s) Oral BID 07/02/19 023 Inactive pantoprazole 40 mg intravenous solution RxNorm: 506129 Take 1 Tablet(s) Intravenous QAM every morning 07/02/19 023 Inactive torsemide 20 mg tablet RxNorm: 638084 Take 1 Tablet(s) Oral QAM every morning 07/02/19 024 Inactive Januvia 100 mg tablet RxNorm: 308655 Take 1 Tablet(s) Oral QD 07/02/19 023 Inactive atorvastatin 10 mg tablet RxNorm: 270611 Take 1 Tablet(s) Oral QHS every night at bedtime 07/02/19 023 Inactive potassium chloride ER 10 mEq tablet,extended release RxNorm: 183821 Take 1 Tablet(s) Oral BID 07/02/19 023 Inactive Bel[place]uca 75 mcg buccal film RxNorm: 3512372 Take 1/2 film (37.5mcg) (cut diagonally) BID (start AFTER stopping oxycodone) 07/02/19 023 Inactive start belbuca in 7 days AFTER patient stops oxycodone aspirin 81 mg tablet,delayed release RxNorm: 540391 Take 1 Tablet(s) Oral QD 07/02/19 23 023 Inactive dorzolamide 22.3 mg-timolol 6.8 mg/mL eye drops RxNorm: 7928412 Apply 1 Drop(s) Both eyes BID 07/02/19 23 024 Inactive latanoprost 0.005 % eye drops RxNorm: 614120 Take 1 Drop(s) Both eyes QHS every night at bedtime 07/02/19 023 Inactive Systane Ultra 0.4 %-0.3 % eye drops RxNorm: 662291 Apply 1 Drop(s) Both eyes QID 07/02/19 023 Inactive Lantus Solostar U-100 Insulin 100 unit/mL (3 mL) subcutaneous pen RxNorm: 549984 Take 40 Unit(s) Subcutaneous QHS every night at bedtime 07/02/19 023 Inactive oxybutynin chloride 5 mg tablet RxNorm: 968694 Administer 1 Tablet(s) Oral QHS every night at bedtime 07/02/19 023 Inactive Miralax 17 gram oral powder packet RxNorm: 246437 Take 1 Packet Oral QD 07/02/19 023 Inactive hydrochlorothiazide 25 mg tablet RxNorm: 532558 Take 1 Tablet(s) Oral QD 07/02/19 023 Inactive oxycodone 5 mg tablet RxNorm: 6141272 Take 1 Tablet(s) Oral TID then discontinue and start belbuca (d/c 10mg TID) 07/02/19 023 Inactive stop after 7 days duloxetine 60 mg capsule,delayed release RxNorm: 810812 Take 2 Capsule(s) Oral QD 07/02/19 023 Inactive Narcan 4 mg/actuation nasal spray RxNorm: 2429221 Give 1 [place] Nasal UD as directed 1 spray contents of ONE device into nostril, call 911. May repeat once with 2nd device 07/02/19 23 023 Inactive fluticasone propionate 50 mcg/actuation nasal spray,suspension RxNorm: 6679185 [place] 2 [place] Nasal QD - Daily both nostrils 07/02/19 23 023 Inactive magnesium oxide 400 mg (241.3 mg magnesium) tablet RxNorm: 450080 Give 1 Tablet(s) Oral BID 07/02/19 023 Inactive cholecalciferol (vitamin D3) 25 mcg (1,000 unit) tablet RxNorm: 095986 Take 1 Tablet(s) Oral QAM every morning 07/02/19 23 023 Inactive oxycodone 5 mg tablet RxNorm: 5939889 Take 2 Tablet(s) Oral TID PRN 06/04/19 23 023 Inactive azithromycin 250 mg tablet RxNorm: 914748 Take Tablet(s) Oral QD 2 Tablets PO QD x 1 Day - Then 1 Tablet PO QD x 4 Days 05/10/19 023 Inactive oxycodone 5 mg tablet RxNorm: 4752733 Take 2 Tablet(s) Oral TID /difficulty breathing 05/03/19 023 Inactive oxycodone 5 mg tablet RxNorm: 5553544 Take 2 Tablet(s) Oral TID /difficulty breathing 03/03/20 22 022 Inactive azithromycin 250 mg tablet RxNorm: 680102 Take Tablet(s) Oral QD 2 Tablets PO QD x 1 Day - Then 1 Tablet PO QD x 4 Days 05/10/19 023 Inactive zolpidem 5 mg tablet RxNorm: 249015 Take 1 Tablet(s) Oral QHS every night at bedtime as needed 03/28/19 023 Inactive Medication Administered No Medication Administered data Procedures Procedure Codes Date BEHAV CHNG SMOKING 3-[address]: 2 29173478 CPT-4: 02395 06/29/2022 Reason For Visit No Reason For Visit data Plan of Care Planned Activity Notes Codes Status Date Referral: [facility] WPtel: [id number] [place], [place] [id number] Referral Records Received 07/18/2022 Instructions Comment Date Rena is a resident a [facility].?? Previously was seen by doctor in [place].?? First [facility] visit 03/10.?? Arthritis/pain complaints and anxiety are her biggest concerns. Johnnie (in 2020). 2 sons - son Korey visits (From[facility]).??AWV:Colonoscopy due 2024.??Labs:??- Yearly MAY (CMP, CBC with differential, A1c, Lipid panel, TSH, VitD, VitB12, urine microalbumin)- Q6mo JANUARY (BMP )- Q3mo JULY, OCT, JAN, APR, (A1c)*4.30.2023 (urine mircoalbumin creat ratio 14.94 WNL) 09/07/2023
--- OUTSIDE RECORDS SUMMARY | 2023-09-07 20:09 | XMS_ITS | CCD ---
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 Name Role Phone Eleno Justo KELLEY Primary Care Provider Nirmala vailable Unavailable Chronic Care Management Unavaila ble Summary Purpose DataExchange Insurance Providers Payer name Policy type / Coverage type Covered constitution party ID Effective Begin Date Effective End Date [place] Blue Cross/Blue Shield [id number] [place] [id number] Unknown Family history Mother Diagnosis Age At Onset Glaucoma Unknown Brother Diagnosis Age At Onset Visual disturbance/blindness Unknown Glaucoma Unknown Father Diagnosis Age At Onset Stomach cancer Unknown Social History Social History Element Codes Description Effec tive Dates Tobacco history SNOMED CT: 45234987 Current every day smoker 07/01/[address]: 888922042 No Alcohol Consum ption 07/01/2022 Allergies, Adverse Reactions, Alerts Substance Reaction Codes Entered Date Inactivated Date Status Bee Sting Unknown 03/03/2022 No Inactive Date Ac tive NSAIDS Unknown 03/03/2022 No Inactive Date Ac tive PENICILLINS Unknown 03/03/2022 No Inactive Date Active losartan RxNorm: 549960 03/03/2022 No Inactive Da te Active aspirin Unknown 03/03/2022 No Inactive Date Ac tive tramadol RxNorm: 11215 03/03/2022 No Inactive Marek e Active Other: [...] Headache ICD-10: R51.9 ICD-9: 784.0 03/03/2022 Active retirement (current) use of insulin ICD-10: Z79.4 03/03 Active Medications Medication Codes Instructions Start Date Stop Date Status Fill Instructions Protective Underwear Ex-Large RxNorm: USE DIRECTED 06/01/19 24 024 Active Banophen 25 mg capsule RxNorm: 5709402 Take 1-2 Capsule(s) Oral Q8H every 8 hours as needed for Allergies 05/24/19 24 No Stop Date Active Banophen 25 mg capsule RxNorm: 7246054 Take 1-2 Capsule(s) Oral Q8H every 8 hours as needed 05/24/19 24 024 Inactive torsemide 20 mg tablet RxNorm: 945589 Take 1 Tablet(s) Oral QAM every morning 05/22/19 24 025 Active 05/22/2023 PROACTIVE REFILL REQUEST FOR NEXT CYCLE PLEASE THANK YOU RX has/will before cycle date famotidine 20 mg tablet RxNorm: 505528 Take 1 Tablet(s) Oral QHS every night at bedtime 05/22/19 24 025 Active 05/22/2023 PROACTIVE REFILL REQUEST FOR NEXT CYCLE PLEASE THANK YOU Aspercreme (lidocaine) 4 % topical patch RxNorm: 9080790 Apply 1 Patch Topical QD (on for 12 hours, off for 12 hours) 05/15/19 24 025 Active dorzolamide 22.3 mg-timolol 6.8 mg/mL eye drops RxNorm: 6716278 Apply 1 Drop(s) Both eyes BID 04/27/19 24 025 Active Humalog KwikPen (U-100) Insulin 100 unit/mL subcutaneous RxNorm: 3550046 Inject 0-7 Unit(s) Subcutaneous Inject per sliding scale BID before lunch and dinner 04/25/19 24 024 Inactive melatonin 3 mg tablet RxNorm: 479636 Take 1 Tablet(s) Oral QHS every night at bedtime 02/29/20 23 024 Active 02/28/2023 PROACTIVE REFILL REQUEST FOR NEXT CYCLE PLEASE THANK YOU potassium chloride ER 20 mEq tablet,extended release(part/cryst) RxNorm: 1497432 Take 2 Tablet(s) Oral QD 02/29/20 23 024 Active 02/28/2023 PROACTIVE REFILL REQUEST FOR NEXT CYCLE PLEASE THANK YOU atorvastatin 10 mg tablet RxNorm: 246961 Take 1 Tablet(s) Oral QD 01/06/20 23 024 Active 01/05/2023 PROACTIVE REFILL REQUEST FOR NEXT CYCLE PLEASE THANK YOU fluticasone propionate 50 mcg/actuation nasal spray,suspension RxNorm: 3982236 [place] 2 [place] Nasal QD - Daily both nostrils 12/20/19 No Stop Date Active nicotine 21 mg/24 hr daily transdermal patch RxNorm: Apply 1 Transdermal QD 12/02/19 023 Inactive nicotine 21 mg/24 hr daily transdermal patch RxNorm: Apply 1 Transdermal QD 11/29/19 023 Inactive loratadine 10 mg tablet RxNorm: 849862 Take 1 Tablet(s) Oral QD as needed 11/23/19 23 024 Inactive loratadine 10 mg tablet RxNorm: 123406 Take 1 Tablet(s) Oral QD as needed 11/23/19 23 023 Inactive nicotine 21 mg/24 hr daily transdermal patch RxNorm: Apply 1 Transdermal QD 11/16/19 023 Inactive aspirin 81 mg tablet,delayed release RxNorm: 161754 Take 1 Tablet(s) Oral QD 11/15/19 23 024 Active 2ND REQUEST 11/11/2022 NEED KIM PLEASE THANK YOU nicotine 21 mg/24 hr daily transdermal patch RxNorm: Apply 1 Transdermal QD 11/02/19 023 Inactive amlodipine 10 mg tablet RxNorm: 811569 Take 1 Tablet(s) Oral QD 10/20/19 23 024 Active nicotine 21 mg/24 hr daily transdermal patch RxNorm: APPLY 1 PATCH ONCE DAILY 10/18/19 023 Inactive Pen Needle 30 gauge x 5/16 RxNorm: Use 1 Unit(s) TID Use as directed to administer insulin up to 3x daily 10/12/19 23 024 Inactive cholecalciferol (vitamin D3) 25 mcg (1,000 unit) tablet RxNorm: 537057 TAKE 1 TABLET BY MOUTH DAILY (1,000 UNITS) 09/14/19 23 024 Active 09/13/2022 PROACTIVE REFILL REQUEST FOR NEXT CYCLE PLEASE THANK YOU Systane Ultra 0.4 %-0.3 % eye drops RxNorm: 479157 Instill 1 Drop(s) Both eyes QID 09/06/19 No Stop Date Active diclofenac 1 % topical gel RxNorm: 260653 Apply 4 Gram(s) Topical QID (bilateral knees or area of pain per patient's request) 09/01/19 No Stop Date Active acetaminophen 325 mg tablet RxNorm: 316293 Take 1 Tablet(s) Oral Q4H every four hours as needed 09/01/19 No Stop Date Active Lantus Solostar U-100 Insulin 100 unit/mL (3 mL) subcutaneous pen RxNorm: 510965 Inject 20 Unit(s) Subcutaneous QHS every night at bedtime 09/01/19 23 024 Inactive Pen Needle 30 gauge x 5/16 RxNorm: Use as directed to administer insulin up to 3x daily 09/01/19 23 023 Inactive Humalog KwikPen (U-100) Insulin 100 unit/mL subcutaneous RxNorm: 9333407 Unit(s) Subcutaneous Inject per sliding scale BID before lunch and dinner 09/01/19 024 Inactive Aspercreme (lidocaine) 4 % topical patch RxNorm: 3308896 Apply 1 Patch Topical QD (on for 12 hours, off for 12 hours) 09/01/19 024 Inactive melatonin 3 mg tablet RxNorm: 369452 Take 2 Tablet(s) Oral QHS every night at bedtime as needed (may repeat once) 09/01/19 023 Inactive hydrochlorothiazide 25 mg tablet RxNorm: 653471 Take 1 Tablet(s) Oral QD 07/23/19 23 024 Inactive 2nd REQUEST FOR REFILLS 07-22-2022 NEED KIM PLEASE = THANK YOU Januvia 100 mg tablet RxNorm: 387246 Take 1 Tablet(s) Oral QD 07/23/19 23 023 Inactive 2nd REQUEST FOR REFILLS 07-22-2022 NEED KIM PLEASE = THANK YOU potassium chloride ER 10 mEq capsule,extended release RxNorm: 775258 TAKE 1 CAPSULE BY MOUTH TWICE DAILY WITH MEAL(S) 07/23/19 23 023 Inactive 2nd REQUEST FOR REFILLS 07-22-2022 NEED KIM PLEASE = THANK YOU duloxetine 60 mg capsule,delayed release RxNorm: 687518 Take 2 Capsule(s) Oral QD 07/23/19 23 023 Inactive 2nd REQUEST FOR REFILLS 07-22-2022 NEED KIM PLEASE = THANK YOU pantoprazole 40 mg tablet,delayed release RxNorm: 925197 TAKE 1 TABLET BY MOUTH EVERY MORNING BEFORE BREAKFAST 07/23/19 23 023 Inactive 2nd REQUEST FOR REFILLS 07-22-2022 NEED KIM PLEASE = THANK YOU magnesium oxide 400 mg (241.3 mg magnesium) tablet RxNorm: 260385 Take 1 Tablet(s) Oral BID 07/23/19 23 023 Inactive 2nd REQUEST FOR REFILLS 07-22-2022 NEED KIM PLEASE = THANK YOU acetaminophen 500 mg tablet RxNorm: 921255 Take 2 Tablet(s) Oral TID 07/23/19 23 023 Inactive 2nd REQUEST FOR REFILLS 07-22-2022 NEED KIM PLEASE = THANK YOU risperidone 2 mg tablet RxNorm: 318380 Take 1 Tablet(s) Oral BID 07/23/19 23 023 Inactive 2nd REQUEST FOR REFILLS 07-22-2022 NEED KIM PLEASE = THANK YOU buprenorphine HCl 2 mg sublingual tablet RxNorm: 908205 Take 1 Tablet(s) Sublingual TID 07/19/19 23 023 Inactive buprenorphine HCl 2 mg sublingual tablet RxNorm: 998404 Take 1 Tablet(s) Sublingual TID 07/19/19 23 023 Inactive oxycodone 5 mg tablet RxNorm: 3442765 Take 1 Tablet(s) Oral BID x7 days then decrease to 1 tab once daily x 7 days then d/c 07/09/19 23 023 Inactive latanoprost 0.005 % eye drops RxNorm: 846941 Take 1 Drop(s) Both eyes QHS every night at bedtime 07/07/19 23 023 Inactive buprenorphine 5 mcg/hour weekly transdermal patch RxNorm: 073928 Apply 1 Transdermal once every 7 days 07/06/19 23 023 Inactive zolpidem 5 mg tablet RxNorm: 777311 Take 1 Tablet(s) Oral QHS every night at bedtime 07/06/19 23 023 Inactive buprenorphine 5 mcg/hour weekly transdermal patch RxNorm: 260474 Apply 1 Transdermal once every 7 days 07/06/19 23 023 Inactive start after stops oxycodone. belbuca film not covered acetaminophen 500 mg tablet RxNorm: 250460 Take 2 Tablet(s) Oral TID 07/02/19 023 Inactive famotidine 20 mg tablet RxNorm: 883194 Give 1 Tablet(s) Oral QHS every night at bedtime 07/02/19 024 Inactive amlodipine 5 mg tablet RxNorm: 111997 Take 1 Tablet(s) Oral QD 07/02/19 023 Inactive nicotine 21 mg/24 hr daily transdermal patch RxNorm: 675423 Apply 1 Patch Transdermal QD Remove old patch prior to placing the new one 07/02/19 023 Inactive gabapentin 600 mg tablet RxNorm: 665531 Take 1 Tablet(s) Oral TID 07/02/19 023 Inactive risperidone 2 mg tablet RxNorm: 092028 Take 1 Tablet(s) Oral BID 07/02/19 023 Inactive pantoprazole 40 mg intravenous solution RxNorm: 588387 Take 1 Tablet(s) Intravenous QAM every morning 07/02/19 023 Inactive torsemide 20 mg tablet RxNorm: 964178 Take 1 Tablet(s) Oral QAM every morning 07/02/19 024 Inactive Januvia 100 mg tablet RxNorm: 922931 Take 1 Tablet(s) Oral QD 07/02/19 023 Inactive atorvastatin 10 mg tablet RxNorm: 902198 Take 1 Tablet(s) Oral QHS every night at bedtime 07/02/19 023 Inactive potassium chloride ER 10 mEq tablet,extended release RxNorm: 664430 Take 1 Tablet(s) Oral BID 07/02/19 023 Inactive Belbuca 75 mcg buccal film RxNorm: 6416722 Take 1/2 film (37.5mcg) (cut diagonally) BID (start AFTER stopping oxycodone) 07/02/19 023 Inactive start belbuca in 7 days AFTER patient stops oxycodone aspirin 81 mg tablet,delayed release RxNorm: 648179 Take 1 Tablet(s) Oral QD 07/02/19 023 Inactive dorzolamide 22.3 mg-timolol 6.8 mg/mL eye drops RxNorm: 0391669 Apply 1 Drop(s) Both eyes BID 07/02/19 23 024 Inactive latanoprost 0.005 % eye drops RxNorm: 660409 Take 1 Drop(s) Both eyes QHS every night at bedtime 07/02/19 23 023 Inactive Systane Ultra 0.4 %-0.3 % eye drops RxNorm: 515853 Apply 1 Drop(s) Both eyes QID 07/02/19 23 023 Inactive Lantus Solostar U-100 Insulin 100 unit/mL (3 mL) subcutaneous pen RxNorm: 513979 Take 40 Unit(s) Subcutaneous QHS every night at bedtime 07/02/19 23 023 Inactive oxybutynin chloride 5 mg tablet RxNorm: 265058 Administer 1 Tablet(s) Oral QHS every night at bedtime 07/02/19 23 023 Inactive Miralax 17 gram oral powder packet RxNorm: 128324 Take 1 Packet Oral QD 07/02/19 023 Inactive hydrochlorothiazide 25 mg tablet RxNorm: 551000 Take 1 Tablet(s) Oral QD 07/02/19 23 023 Inactive oxycodone 5 mg tablet RxNorm: 7010439 Take 1 Tablet(s) Oral TID then discontinue and start belbuca (d/c 10mg TID) 07/02/19 23 023 Inactive stop after 7 days duloxetine 60 mg capsule,delayed release RxNorm: 491066 Take 2 Capsule(s) Oral QD 07/02/19 23 023 Inactive Narcan 4 mg/actuation nasal spray RxNorm: 3084792 Give 1 [place] Nasal UD as directed 1 spray contents of ONE device into nostril, call 911. May repeat once with 2nd device 07/02/19 23 023 Inactive fluticasone propionate 50 mcg/actuation nasal spray,suspension RxNorm: 9100153 [place] 2 [place] Nasal QD - Daily both nostrils 07/02/19 23 023 Inactive magnesium oxide 400 mg (241.3 mg magnesium) tablet RxNorm: 615311 Give 1 Tablet(s) Oral BID 07/02/19 023 Inactive cholecalciferol (vitamin D3) 25 mcg (1,000 unit) tablet RxNorm: 275676 Take 1 Tablet(s) Oral QAM every morning 07/02/19 023 Inactive oxycodone 5 mg tablet RxNorm: 6501132 Take 2 Tablet(s) Oral TID PRN 06/04/19 023 Inactive azithromycin 250 mg tablet RxNorm: 556929 Take Tablet(s) Oral QD 2 Tablets PO QD x 1 Day - Then 1 Tablet PO QD x 4 Days 05/10/19 023 Inactive oxycodone 5 mg tablet RxNorm: 7916736 Take 2 Tablet(s) Oral TID /difficulty breathing 05/03/19 023 Inactive oxycodone 5 mg tablet RxNorm: 6210491 Take 2 Tablet(s) Oral TID /difficulty breathing 03/03/20 022 Inactive azithromycin 250 mg tablet RxNorm: 016524 Take Tablet(s) Oral QD 2 Tablets PO QD x 1 Day - Then 1 Tablet PO QD x 4 Days 05/10/19 023 Inactive zolpidem 5 mg tablet RxNorm: 992600 Take 1 Tablet(s) Oral QHS every night at bedtime as needed 03/28/19 023 Inactive Medication Administered No Medication Administered data Procedures Procedure Codes Date BEHAV CHNG SMOKING 3-[address]: 2 43077589 CPT-4: 25927 06/29/2022 Reason For Visit No Reason For Visit data Plan of Care Planned Activity Notes Codes Status Date Referral: [facility] WPtel: [id number] [place], [place] [id number] Referral Records Received 07/18/2022 Instructions Comment Date Rena is a resident a [facility].?? Previously was seen by doctor in [place].?? First [facility] visit 03/10.?? Arthritis/pain complaints and anxiety are her biggest concerns. Johnnie (in 2020). 2 sons - son Korey visits (From[facility]).??AWV:Colonoscopy due 2024.??Labs:??- Yearly JULY (CMP, CBC with differential, A1c, Lipid panel, TSH, VitD, VitB12, urine microalbumin)- Q6mo JANUARY (BMP )- Q3mo JULY, OCT, JAN, APR, (A1c)*4.30.2023 (urine mircoalbumin creat ratio 14.94 WNL) 09/07/2023
--- OUTSIDE RECORDS SUMMARY | 2023-09-07 20:10 | XMS_ITS | CCD ---
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 Care Member Services Representative Name Role Phone Eleno Justo KELLEY Primary Care Provider Nirmala vailable Unavailable Chronic Care Management Unavaila ble Summary Purpose DataExchange Insurance Providers Payer name Policy type / Coverage type Covered green party ID Effective Begin Date Effective End Date [place] Blue Cross/Blue Shield [id number] [place] [id number] Unknown Family history Mother Diagnosis Age At Onset Glaucoma Unknown Brother Diagnosis Age At Onset Visual disturbance/blindness Unknown Glaucoma Unknown Father Diagnosis Age At Onset Stomach cancer Unknown Social History Social History Element Codes Description Effec tive Dates Tobacco history SNOMED CT: 75626627 Current every day smoker 07/01/[address]: 459051585 No Alcohol Consum ption 07/01/2022 Allergies, Adverse Reactions, Alerts Substance Reaction Codes Entered Date Inactivated Date Status Bee Sting Unknown 03/03/2022 No Inactive Date Ac tive NSAIDS Unknown 03/03/2022 No Inactive Date Ac tive PENICILLINS Unknown 03/03/2022 No Inactive Date Active losartan RxNorm: 838358 03/03/2022 No Inactive Da te Active aspirin Unknown 03/03/2022 No Inactive Date Ac tive tramadol RxNorm: 40362 03/03/2022 No Inactive Marek e Active Other: Unknown 03/03/2022 No Inactive Date Ac tive VARENICLINE Unknown 03/03/2022 No Inactive Date Active Problems Condition Codes Effective Dates Condition St atus Hypertension ICD-10: I10 ICD-9: 401.9 06/23/2023 Active Hypokalemia ICD-10: E87.6 ICD-9: 276.8 06/23/2023 Active Preventative health care ICD-10: Z00.00 ICD-9: V70.0 06/23/2023 Active Primary osteoarthritis invol ving multiple joints ICD-10: M15.9 ICD-9: 715.98 06/23/2023 Active 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, with long-term current use of insulin ICD-10: E11.59 ICD-9: 250.70 06/23/2023 Active Chronic pain ICD-10: G89.29 ICD-9: 338.29 06/14/2023 Active Disorientation, unspecified ICD-10: R41. 0 ICD-9: 780.99 06/14/2023 Active Insomnia ICD-10: G47.00 ICD-9: 780.52 06/14/2023 Active Smoking ICD-10: F17.200 ICD-9: 305.1 06/14/2023 Active Community acquired pneumonia ICD-10: J18 .9 ICD-9: 486 06/14/2023 Resolved Cough ICD-10: R05.9 ICD-9: 786.2 06/14/2023 Resolved Headache ICD-10: R51.9 ICD-9: 784.0 06/14/2023 Resolved long-term (current) use of insulin ICD-10: Z79.4 06/13 Resolved Stomach pain ICD-10: R10.9 ICD-9: 536.8 06/14/2023 Resolved Injury due to fall, subseque nt encounter ICD-10: W19.XXXD ICD-9: V58.89 09/28/2022 Active Arthritis associated with diabetes ICD-1 0: E11.618 ICD-9: 250.60 06/29/2022 Resolved Tobacco use ICD-10: Z72.0 ICD-9: 305.1 06/29/2022 Resolved Acute exacerbation of CHF (congestive heart failure) ICD-10: I50.9 ICD-9: 428.0 05/25/2022 Resolved Diabetes Unknown 03/03/2022 Active Diabetes mellitus Type 2 Unknown 03/03/2022 Act gm Medications Medication Codes Instructions Start Date Stop Date Status Fill Instructions latanoprost 0.005 % eye drops RxNorm: 939153 Take 1 Drop(s) Both eyes QHS every night at bedtime 07/13/19 24 No Stop Date Active FreeStyle Kristie 14 Day Sensor kit RxNorm: Use 1 Test Strip BIW biweekly 06/14/19 24 024 Active FreeStyle Kristie 14 Day Sensor kit RxNorm: Use 1 Test Strip BIW biweekly 06/14/19 24 024 Inactive Protective Underwear Ex-Large RxNorm: USE DIRECTED 06/01/19 24 Active Banophen 25 mg capsule RxNorm: 2716350 Take 1-2 Capsule(s) Oral Q8H every 8 hours as needed for Allergies 05/24/19 No Stop Date Active Banophen 25 mg capsule RxNorm: 2395820 Take 1-2 Capsule(s) Oral Q8H every 8 hours as needed 05/24/19 24 024 Inactive torsemide 20 mg tablet RxNorm: 813386 Take 1 Tablet(s) Oral QAM every morning 05/22/19 24 025 Active 05/22/2023 PROACTIVE REFILL REQUEST FOR NEXT CYCLE PLEASE THANK YOU RX has/will before cycle date famotidine 20 mg tablet RxNorm: 730653 Take 1 Tablet(s) Oral QHS every night at bedtime 05/22/19 24 025 Active 05/22/2023 PROACTIVE REFILL REQUEST FOR NEXT CYCLE PLEASE THANK YOU Aspercreme (lidocaine) 4 % topical patch RxNorm: 2405088 Apply 1 Patch Topical QD (on for 12 hours, off for 12 hours) 05/15/19 24 025 Active dorzolamide 22.3 mg-timolol 6.8 mg/mL eye drops RxNorm: 7383963 Apply 1 Drop(s) Both eyes BID 04/27/19 24 025 Active Humalog KwikPen (U-100) Insulin 100 unit/mL subcutaneous RxNorm: 8631829 Inject 0-7 Unit(s) Subcutaneous Inject per sliding scale BID before lunch and dinner 04/25/19 24 024 Inactive melatonin 3 mg tablet RxNorm: 461505 Take 1 Tablet(s) Oral QHS every night at bedtime 02/29/20 23 024 Active 02/28/2023 PROACTIVE REFILL REQUEST FOR NEXT CYCLE PLEASE THANK YOU potassium chloride ER 20 mEq tablet,extended release(part/cryst) RxNorm: 3244789 Take 2 Tablet(s) Oral QD 02/29/20 23 024 Active 02/28/2023 PROACTIVE REFILL REQUEST FOR NEXT CYCLE PLEASE THANK YOU atorvastatin 10 mg tablet RxNorm: 417895 Take 1 Tablet(s) Oral QD 01/06/20 23 024 Active 01/05/2023 PROACTIVE REFILL REQUEST FOR NEXT CYCLE PLEASE THANK YOU fluticasone propionate 50 mcg/actuation nasal spray,suspension RxNorm: 4135052 [place] 2 [place] Nasal QD - Daily both nostrils 12/20/19 No Stop Date Active nicotine 21 mg/24 hr daily transdermal patch RxNorm: Apply 1 Transdermal QD 12/02/19 23 023 Inactive nicotine 21 mg/24 hr daily transdermal patch RxNorm: Apply 1 Transdermal QD 11/29/19 23 023 Inactive loratadine 10 mg tablet RxNorm: 747982 Take 1 Tablet(s) Oral QD as needed 11/23/19 23 024 Inactive loratadine 10 mg tablet RxNorm: 850197 Take 1 Tablet(s) Oral QD as needed 11/23/19 23 023 Inactive nicotine 21 mg/24 hr daily transdermal patch RxNorm: Apply 1 Transdermal QD 11/16/19 23 023 Inactive aspirin 81 mg tablet,delayed release RxNorm: 743834 Take 1 Tablet(s) Oral QD 11/15/19 23 024 Active 2ND REQUEST 11/11/2022 NEED KIM PLEASE THANK YOU nicotine 21 mg/24 hr daily transdermal patch RxNorm: Apply 1 Transdermal QD 11/02/19 23 023 Inactive amlodipine 10 mg tablet RxNorm: 886120 Take 1 Tablet(s) Oral QD 10/20/19 23 024 Active nicotine 21 mg/24 hr daily transdermal patch RxNorm: APPLY 1 PATCH ONCE DAILY 10/18/19 23 023 Inactive Pen Needle 30 gauge x 16 RxNorm: Use 1 Unit(s) TID Use as directed to administer insulin up to 3x daily 10/12/19 23 024 Inactive cholecalciferol (vitamin D3) 25 mcg (1,000 unit) tablet RxNorm: 048326 TAKE 1 TABLET BY MOUTH DAILY (1,000 UNITS) 09/14/19 23 024 Active 09/13/2022 PROACTIVE REFILL REQUEST FOR NEXT CYCLE PLEASE THANK YOU Systane Ultra 0.4 %-0.3 % eye drops RxNorm: 036841 Instill 1 Drop(s) Both eyes QID 09/06/19 No Stop Date Active diclofenac 1 % topical gel RxNorm: 659585 Apply 4 Gram(s) Topical QID (bilateral knees or area of pain per patient's request) 09/01/19 No Stop Date Active acetaminophen 325 mg tablet RxNorm: 398845 Take 1 Tablet(s) Oral Q4H every four hours as needed 09/01/19 No Stop Date Active Lantus Solostar U-100 Insulin 100 unit/mL (3 mL) subcutaneous pen RxNorm: 883371 Inject 20 Unit(s) Subcutaneous QHS every night at bedtime 09/01/19 024 Inactive Pen Needle 30 gauge x 5/16 RxNorm: Use as directed to administer insulin up to 3x daily 09/01/19 23 023 Inactive Humalog KwikPen (U-100) Insulin 100 unit/mL subcutaneous RxNorm: 7769839 Unit(s) Subcutaneous Inject per sliding scale BID before lunch and dinner 09/01/19 024 Inactive Aspercreme (lidocaine) 4 % topical patch RxNorm: 3186796 Apply 1 Patch Topical QD (on for 12 hours, off for 12 hours) 09/01/19 23 024 Inactive melatonin 3 mg tablet RxNorm: 676135 Take 2 Tablet(s) Oral QHS every night at bedtime as needed (may repeat once) 09/01/19 23 023 Inactive hydrochlorothiazide 25 mg tablet RxNorm: 661885 Take 1 Tablet(s) Oral QD 07/23/19 23 024 Inactive 2nd REQUEST FOR REFILLS 07-22-2022 NEED KIM PLEASE = THANK YOU Januvia 100 mg tablet RxNorm: 161707 Take 1 Tablet(s) Oral QD 07/23/19 23 023 Inactive 2nd REQUEST FOR REFILLS 07-22-2022 NEED KIM PLEASE = THANK YOU potassium chloride ER 10 mEq capsule,extended release RxNorm: 350645 TAKE 1 CAPSULE BY MOUTH TWICE DAILY WITH MEAL(S) 07/23/19 23 023 Inactive 2nd REQUEST FOR REFILLS 07-22-2022 NEED KIM PLEASE = THANK YOU duloxetine 60 mg capsule,delayed release RxNorm: 282246 Take 2 Capsule(s) Oral QD 07/23/19 23 023 Inactive 2nd REQUEST FOR REFILLS 07-22-2022 NEED KIM PLEASE = THANK YOU pantoprazole 40 mg tablet,delayed release RxNorm: 611859 TAKE 1 TABLET BY MOUTH EVERY MORNING BEFORE BREAKFAST 07/23/19 23 023 Inactive 2nd REQUEST FOR REFILLS 07-22-2022 NEED KIM PLEASE = THANK YOU magnesium oxide 400 mg (241.3 mg magnesium) tablet RxNorm: 025174 Take 1 Tablet(s) Oral BID 07/23/19 23 023 Inactive 2nd REQUEST FOR REFILLS 07-22-2022 NEED KIM PLEASE = THANK YOU acetaminophen 500 mg tablet RxNorm: 011279 Take 2 Tablet(s) Oral TID 07/23/19 23 023 Inactive 2nd REQUEST FOR REFILLS 07-22-2022 NEED KIM PLEASE = THANK YOU risperidone 2 mg tablet RxNorm: 272231 Take 1 Tablet(s) Oral BID 07/23/19 23 023 Inactive 2nd REQUEST FOR REFILLS 07-22-2022 NEED KIM PLEASE = THANK YOU buprenorphine HCl 2 mg sublingual tablet RxNorm: 113602 Take 1 Tablet(s) Sublingual TID 07/19/19 23 023 Inactive buprenorphine HCl 2 mg sublingual tablet RxNorm: 561426 Take 1 Tablet(s) Sublingual TID 07/19/19 23 023 Inactive oxycodone 5 mg tablet RxNorm: 9077985 Take 1 Tablet(s) Oral BID x7 days then decrease to 1 tab once daily x 7 days then d/c 07/09/19 23 023 Inactive latanoprost 0.005 % eye drops RxNorm: 625012 Take 1 Drop(s) Both eyes QHS every night at bedtime 07/07/19 23 023 Inactive buprenorphine 5 mcg/hour weekly transdermal patch RxNorm: 309877 Apply 1 Transdermal once every 7 days 07/06/19 23 023 Inactive zolpidem 5 mg tablet RxNorm: 195783 Take 1 Tablet(s) Oral QHS every night at bedtime 07/06/19 023 Inactive buprenorphine 5 mcg/hour weekly transdermal patch RxNorm: 536580 Apply 1 Transdermal once every 7 days 07/06/19 023 Inactive start after stops oxycodone. bel[place]uca film not covered acetaminophen 500 mg tablet RxNorm: 717617 Take 2 Tablet(s) Oral TID 07/02/19 023 Inactive famotidine 20 mg tablet RxNorm: 694207 Give 1 Tablet(s) Oral QHS every night at bedtime 07/02/19 024 Inactive amlodipine 5 mg tablet RxNorm: 252432 Take 1 Tablet(s) Oral QD 07/02/19 023 Inactive nicotine 21 mg/24 hr daily transdermal patch RxNorm: 477555 Apply 1 Patch Transdermal QD Remove old patch prior to placing the new one 07/02/19 023 Inactive gabapentin 600 mg tablet RxNorm: 358220 Take 1 Tablet(s) Oral TID 07/02/19 023 Inactive risperidone 2 mg tablet RxNorm: 556113 Take 1 Tablet(s) Oral BID 07/02/19 023 Inactive pantoprazole 40 mg intravenous solution RxNorm: 381380 Take 1 Tablet(s) Intravenous QAM every morning 07/02/19 023 Inactive torsemide 20 mg tablet RxNorm: 111385 Take 1 Tablet(s) Oral QAM every morning 07/02/19 024 Inactive Januvia 100 mg tablet RxNorm: 769583 Take 1 Tablet(s) Oral QD 07/02/19 023 Inactive atorvastatin 10 mg tablet RxNorm: 018538 Take 1 Tablet(s) Oral QHS every night at bedtime 07/02/19 023 Inactive potassium chloride ER 10 mEq tablet,extended release RxNorm: 758836 Take 1 Tablet(s) Oral BID 07/02/19 23 023 Inactive [place] 75 mcg buccal film RxNorm: 5071187 Take 1/2 film (37.5mcg) (cut diagonally) BID (start AFTER stopping oxycodone) 07/02/19 023 Inactive start belbuca in 7 days AFTER patient stops oxycodone aspirin 81 mg tablet,delayed release RxNorm: 651487 Take 1 Tablet(s) Oral QD 07/02/19 23 023 Inactive dorzolamide 22.3 mg-timolol 6.8 mg/mL eye drops RxNorm: 7366551 Apply 1 Drop(s) Both eyes BID 07/02/19 23 024 Inactive latanoprost 0.005 % eye drops RxNorm: 626801 Take 1 Drop(s) Both eyes QHS every night at bedtime 07/02/19 023 Inactive Systane Ultra 0.4 %-0.3 % eye drops RxNorm: 179780 Apply 1 Drop(s) Both eyes QID 07/02/19 23 023 Inactive Lantus Solostar U-100 Insulin 100 unit/mL (3 mL) subcutaneous pen RxNorm: 865708 Take 40 Unit(s) Subcutaneous QHS every night at bedtime 07/02/19 23 023 Inactive oxybutynin chloride 5 mg tablet RxNorm: 727573 Administer 1 Tablet(s) Oral QHS every night at bedtime 07/02/19 23 023 Inactive Miralax 17 gram oral powder packet RxNorm: 956391 Take 1 Packet Oral QD 07/02/19 023 Inactive hydrochlorothiazide 25 mg tablet RxNorm: 147149 Take 1 Tablet(s) Oral QD 07/02/19 23 023 Inactive oxycodone 5 mg tablet RxNorm: 3182718 Take 1 Tablet(s) Oral TID then discontinue and start belbuca (d/c 10mg TID) 07/02/19 23 023 Inactive stop after 7 days duloxetine 60 mg capsule,delayed release RxNorm: 112977 Take 2 Capsule(s) Oral QD 07/02/19 23 023 Inactive Narcan 4 mg/actuation nasal spray RxNorm: 7777640 Give 1 [place] Nasal UD as directed 1 spray contents of ONE device into nostril, call 911. May repeat once with 2nd device 07/02/19 23 023 Inactive fluticasone propionate 50 mcg/actuation nasal spray,suspension RxNorm: 9338166 [place] 2 [place] Nasal QD - Daily both nostrils 07/02/19 23 023 Inactive magnesium oxide 400 mg (241.3 mg magnesium) tablet RxNorm: 586706 Give 1 Tablet(s) Oral BID 07/02/19 023 Inactive cholecalciferol (vitamin D3) 25 mcg (1,000 unit) tablet RxNorm: 238492 Take 1 Tablet(s) Oral QAM every morning 07/02/19 023 Inactive oxycodone 5 mg tablet RxNorm: 6888891 Take 2 Tablet(s) Oral TID PRN 06/04/19 23 023 Inactive azithromycin 250 mg tablet RxNorm: 133025 Take Tablet(s) Oral QD 2 Tablets PO QD x 1 Day - Then 1 Tablet PO QD x 4 Days 05/10/19 23 023 Inactive oxycodone 5 mg tablet RxNorm: 6537991 Take 2 Tablet(s) Oral TID /difficulty breathing 05/03/19 023 Inactive oxycodone 5 mg tablet RxNorm: 1468150 Take 2 Tablet(s) Oral TID /difficulty breathing 03/03/20 22 022 Inactive azithromycin 250 mg tablet RxNorm: 120965 Take Tablet(s) Oral QD 2 Tablets PO QD x 1 Day - Then 1 Tablet PO QD x 4 Days 05/10/19 23 023 Inactive zolpidem 5 mg tablet RxNorm: 000758 Take 1 Tablet(s) Oral QHS every night at bedtime as needed 03/28/19 023 Inactive Medication Administered No Medication Administered data Procedures Procedure Codes Date BEHAV CHNG SMOKING 3-[address]: 2 97930063 CPT-4: 89931 06/29/2022 Reason For Visit No Reason For Visit data Plan of Care Planned Activity Notes Codes Status Date Referral: [facility] WPtel: [phone] [facility] [address] [id number] [place] Referral Records Received 07/18/2022 Instructions Comment Date Rena is a resident a [facility].?? Previously was seen by doctor in [place].?? First [facility] visit 03/10.?? Arthritis/pain complaints and anxiety are her biggest concerns. Johnnie (in 2020). 2 sons - son Korey visits (From??[place]).??AWV:Colonoscopy due 2024.??Labs:??- Yearly JULY (CMP, CBC with differential, A1c, Lipid panel, TSH, VitD, VitB12, urine microalbumin)- Q6mo JANUARY (BMP )- Q3mo JULY, OCT, JAN, APR, (A1c)*4.30.2023 (urine mircoalbumin creat ratio 14.94 WNL) 09/07/2023
--- OUTSIDE RECORDS SUMMARY | 2023-09-07 20:10 | XMS_ITS | CCD ---
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 Name Role Phone Eleno KELLEY McKenzie Primary Care Provider Nirmala vailable Unavailable Chronic Care Management Unavaila ble Summary Purpose DataExchange Insurance Providers Payer name Policy type / Coverage type Covered green party ID Effective Begin Date Effective End Date [place] Blue [place] Medicaid Blue Cross/Blue Shield [id number] Unknown Medicaid [place] Blue Cross/Blue Shield [id number] Unknown Family history Mother Diagnosis Age At Onset Glaucoma Unknown Brother Diagnosis Age At Onset Visual disturbance/blindness Unknown Glaucoma Unknown Father Diagnosis Age At Onset Stomach cancer Unknown Social History Social History Element Codes Description Effec tive Dates Tobacco history SNOMED CT: 87435995 Current every day smoker 07/01/[address]: 776936608 No Alcohol Consum ption 07/01/2022 Allergies, Adverse Reactions, Alerts Substance Reaction Codes Entered Date Inactivated Date Status Bee Sting Unknown 03/03/2022 No Inactive Date Ac tive NSAIDS Unknown 03/03/2022 No Inactive Date Ac tive PENICILLINS Unknown 03/03/2022 No Inactive Date Active losartan RxNorm: 688436 03/03/2022 No Inactive Da te Active aspirin Unknown 03/03/2022 No Inactive Date Ac tive tramadol RxNorm: 87770 03/03/2022 No Inactive Marek e Active Other: [...] Headache ICD-10: R51.9 ICD-9: 784.0 06/14/2023 Resolved buttermaker (current) use of insulin ICD-10: Z79.4 06/13 [...] Start Date Stop Date Status Fill Instructions FreeStyle Kristie 14 Day Sensor kit RxNorm: Use 1 Test Strip BIW biweekly 06/14/19 24 024 Active FreeStyle Kristie 14 Day Sensor kit RxNorm: Use 1 Test Strip BIW biweekly 06/14/19 24 Inactive Protective Underwear Ex-Large RxNorm: USE DIRECTED 06/01/19 24 Active Banophen 25 mg capsule RxNorm: 6846268 Take 1-2 Capsule(s) Oral Q8H every 8 hours as needed for Allergies 05/24/19 No Stop Date Active Banophen 25 mg capsule RxNorm: 1792374 Take 1-2 Capsule(s) Oral Q8H every 8 hours as needed 05/24/19 24 Inactive torsemide 20 mg tablet RxNorm: 870297 Take 1 Tablet(s) Oral QAM every morning 05/22/19 24 025 Active 05/22/2023 PROACTIVE REFILL REQUEST FOR NEXT CYCLE PLEASE THANK YOU RX has/will before cycle date famotidine 20 mg tablet RxNorm: 731161 Take 1 Tablet(s) Oral QHS every night at bedtime 05/22/19 24 025 Active 05/22/2023 PROACTIVE REFILL REQUEST FOR NEXT CYCLE PLEASE THANK YOU Aspercreme (lidocaine) 4 % topical patch RxNorm: 3944236 Apply 1 Patch Topical QD (on for 12 hours, off for 12 hours) 05/15/19 24 025 Active dorzolamide 22.3 mg-timolol 6.8 mg/mL eye drops RxNorm: 8047367 Apply 1 Drop(s) Both eyes BID 04/27/19 24 025 Active Humalog KwikPen (U-100) Insulin 100 unit/mL subcutaneous RxNorm: 7551842 Inject 0-7 Unit(s) Subcutaneous Inject per sliding scale BID before lunch and dinner 04/25/19 24 024 Inactive melatonin 3 mg tablet RxNorm: 712820 Take 1 Tablet(s) Oral QHS every night at bedtime 02/29/20 23 024 Active 02/28/2023 PROACTIVE REFILL REQUEST FOR NEXT CYCLE PLEASE THANK YOU potassium chloride ER 20 mEq tablet,extended release(part/cryst) RxNorm: 1195865 Take 2 Tablet(s) Oral QD 02/29/20 23 024 Active 02/28/2023 PROACTIVE REFILL REQUEST FOR NEXT CYCLE PLEASE THANK YOU atorvastatin 10 mg tablet RxNorm: 763733 Take 1 Tablet(s) Oral QD 01/06/20 024 Active 01/05/2023 PROACTIVE REFILL REQUEST FOR NEXT CYCLE PLEASE THANK YOU fluticasone propionate 50 mcg/actuation nasal spray,suspension RxNorm: 1538357 Latexo 2 Latexo Nasal QD - Daily both nostrils 12/20/19 No Stop Date Active nicotine 21 mg/24 hr daily transdermal patch RxNorm: Apply 1 Transdermal QD 12/02/19 23 023 Inactive nicotine 21 mg/24 hr daily transdermal patch RxNorm: Apply 1 Transdermal QD 11/29/19 23 023 Inactive loratadine 10 mg tablet RxNorm: 606975 Take 1 Tablet(s) Oral QD as needed 11/23/19 23 024 Inactive loratadine 10 mg tablet RxNorm: 990059 Take 1 Tablet(s) Oral QD as needed 11/23/19 23 023 Inactive nicotine 21 mg/24 hr daily transdermal patch RxNorm: Apply 1 Transdermal QD 11/16/19 23 023 Inactive aspirin 81 mg tablet,delayed release RxNorm: 940392 Take 1 Tablet(s) Oral QD 11/15/19 23 024 Active 2ND REQUEST 11/11/2022 NEED KIM PLEASE THANK YOU nicotine 21 mg/24 hr daily transdermal patch RxNorm: Apply 1 Transdermal QD 11/02/19 23 023 Inactive amlodipine 10 mg tablet RxNorm: 502827 Take 1 Tablet(s) Oral QD 10/20/19 23 024 Active nicotine 21 mg/24 hr daily transdermal patch RxNorm: APPLY 1 PATCH ONCE DAILY 10/18/19 23 023 Inactive Pen Needle 30 gauge x 08/02 RxNorm: Use 1 Unit(s) TID Use as directed to administer insulin up to 3x daily 10/12/19 23 024 Inactive cholecalciferol (vitamin D3) 25 mcg (1,000 unit) tablet RxNorm: 455298 TAKE 1 TABLET BY MOUTH DAILY (1,000 UNITS) 09/14/19 23 024 Active 09/13/2022 PROACTIVE REFILL REQUEST FOR NEXT CYCLE PLEASE THANK YOU Systane Ultra 0.4 %-0.3 % eye drops RxNorm: 121134 Instill 1 Drop(s) Both eyes QID 09/06/19 No Stop Date Active diclofenac 1 % topical gel RxNorm: 529963 Apply 4 Gram(s) Topical QID (bilateral knees or area of pain per patient's request) 09/01/19 No Stop Date Active acetaminophen 325 mg tablet RxNorm: 205040 Take 1 Tablet(s) Oral Q4H every four hours as needed 09/01/19 No Stop Date Active Lantus Solostar U-100 Insulin 100 unit/mL (3 mL) subcutaneous pen RxNorm: 244055 Inject 20 Unit(s) Subcutaneous QHS every night at bedtime 09/01/19 024 Inactive Pen Needle 30 gauge x 5/16 RxNorm: Use as directed to administer insulin up to 3x daily 09/01/19 23 023 Inactive Humalog KwikPen (U-100) Insulin 100 unit/mL subcutaneous RxNorm: 7774293 Unit(s) Subcutaneous Inject per sliding scale BID before lunch and dinner 09/01/19 23 024 Inactive Aspercreme (lidocaine) 4 % topical patch RxNorm: 2997617 Apply 1 Patch Topical QD (on for 12 hours, off for 12 hours) 09/01/19 23 024 Inactive melatonin 3 mg tablet RxNorm: 644559 Take 2 Tablet(s) Oral QHS every night at bedtime as needed (may repeat once) 09/01/19 23 023 Inactive hydrochlorothiazide 25 mg tablet RxNorm: 967796 Take 1 Tablet(s) Oral QD 07/23/19 23 024 Inactive 2nd REQUEST FOR REFILLS 07-22-2022 NEED KIM PLEASE = THANK YOU Januvia 100 mg tablet RxNorm: 367576 Take 1 Tablet(s) Oral QD 07/23/19 23 023 Inactive 2nd REQUEST FOR REFILLS 07-22-2022 NEED KIM PLEASE = THANK YOU potassium chloride ER 10 mEq capsule,extended release RxNorm: 214743 TAKE 1 CAPSULE BY MOUTH TWICE DAILY WITH MEAL(S) 07/23/19 23 023 Inactive 2nd REQUEST FOR REFILLS 07-22-2022 NEED KIM PLEASE = THANK YOU duloxetine 60 mg capsule,delayed release RxNorm: 762258 Take 2 Capsule(s) Oral QD 07/23/19 23 023 Inactive 2nd REQUEST FOR REFILLS 07-22-2022 NEED KIM PLEASE = THANK YOU pantoprazole 40 mg tablet,delayed release RxNorm: 534781 TAKE 1 TABLET BY MOUTH EVERY MORNING BEFORE BREAKFAST 07/23/19 23 023 Inactive 2nd REQUEST FOR REFILLS 07-22-2022 NEED KIM PLEASE = THANK YOU magnesium oxide 400 mg (241.3 mg magnesium) tablet RxNorm: 446848 Take 1 Tablet(s) Oral BID 07/23/19 23 023 Inactive 2nd REQUEST FOR REFILLS 07-22-2022 NEED KIM PLEASE = THANK YOU acetaminophen 500 mg tablet RxNorm: 987480 Take 2 Tablet(s) Oral TID 07/23/19 23 023 Inactive 2nd REQUEST FOR REFILLS 07-22-2022 NEED KIM PLEASE = THANK YOU risperidone 2 mg tablet RxNorm: 982703 Take 1 Tablet(s) Oral BID 07/23/19 23 023 Inactive 2nd REQUEST FOR REFILLS 07-22-2022 NEED KIM PLEASE = THANK YOU buprenorphine HCl 2 mg sublingual tablet RxNorm: 055718 Take 1 Tablet(s) Sublingual TID 07/19/19 23 023 Inactive buprenorphine HCl 2 mg sublingual tablet RxNorm: 047872 Take 1 Tablet(s) Sublingual TID 07/19/19 23 023 Inactive oxycodone 5 mg tablet RxNorm: 9483130 Take 1 Tablet(s) Oral BID x7 days then decrease to 1 tab once daily x 7 days then d/c 07/09/19 23 023 Inactive latanoprost 0.005 % eye drops RxNorm: 886092 Take 1 Drop(s) Both eyes QHS every night at bedtime 07/07/19 23 023 Inactive buprenorphine 5 mcg/hour weekly transdermal patch RxNorm: 694978 Apply 1 Transdermal once every 7 days 07/06/19 023 Inactive zolpidem 5 mg tablet RxNorm: 857950 Take 1 Tablet(s) Oral QHS every night at bedtime 07/06/19 023 Inactive buprenorphine 5 mcg/hour weekly transdermal patch RxNorm: 870112 Apply 1 Transdermal once every 7 days 07/06/19 023 Inactive start after stops oxycodone. belbuca film not covered acetaminophen 500 mg tablet RxNorm: 557692 Take 2 Tablet(s) Oral TID 07/02/19 023 Inactive famotidine 20 mg tablet RxNorm: 829807 Give 1 Tablet(s) Oral QHS every night at bedtime 07/02/19 024 Inactive amlodipine 5 mg tablet RxNorm: 219172 Take 1 Tablet(s) Oral QD 07/02/19 023 Inactive nicotine 21 mg/24 hr daily transdermal patch RxNorm: 650897 Apply 1 Patch Transdermal QD Remove old patch prior to placing the new one 07/02/19 023 Inactive gabapentin 600 mg tablet RxNorm: 951732 Take 1 Tablet(s) Oral TID 07/02/19 023 Inactive risperidone 2 mg tablet RxNorm: 975925 Take 1 Tablet(s) Oral BID 07/02/19 023 Inactive pantoprazole 40 mg intravenous solution RxNorm: 349464 Take 1 Tablet(s) Intravenous QAM every morning 07/02/19 023 Inactive torsemide 20 mg tablet RxNorm: 914418 Take 1 Tablet(s) Oral QAM every morning 07/02/19 024 Inactive Januvia 100 mg tablet RxNorm: 540165 Take 1 Tablet(s) Oral QD 07/02/19 023 Inactive atorvastatin 10 mg tablet RxNorm: 387048 Take 1 Tablet(s) Oral QHS every night at bedtime 07/02/19 023 Inactive potassium chloride ER 10 mEq tablet,extended release RxNorm: 725137 Take 1 Tablet(s) Oral BID 07/02/19 23 023 Inactive Belbuca 75 mcg buccal film RxNorm: 3189217 Take 1/2 film (37.5mcg) (cut diagonally) BID (start AFTER stopping oxycodone) 07/02/19 023 Inactive start belbuca in 7 days AFTER patient stops oxycodone aspirin 81 mg tablet,delayed release RxNorm: 051333 Take 1 Tablet(s) Oral QD 07/02/19 023 Inactive dorzolamide 22.3 mg-timolol 6.8 mg/mL eye drops RxNorm: 8453823 Apply 1 Drop(s) Both eyes BID 07/02/19 23 024 Inactive latanoprost 0.005 % eye drops RxNorm: 573363 Take 1 Drop(s) Both eyes QHS every night at bedtime 07/02/19 023 Inactive Systane Ultra 0.4 %-0.3 % eye drops RxNorm: 694935 Apply 1 Drop(s) Both eyes QID 07/02/19 023 Inactive Lantus Solostar U-100 Insulin 100 unit/mL (3 mL) subcutaneous pen RxNorm: 201687 Take 40 Unit(s) Subcutaneous QHS every night at bedtime 07/02/19 23 023 Inactive oxybutynin chloride 5 mg tablet RxNorm: 011807 Administer 1 Tablet(s) Oral QHS every night at bedtime 07/02/19 023 Inactive Miralax 17 gram oral powder packet RxNorm: 196840 Take 1 Packet Oral QD 07/02/19 023 Inactive hydrochlorothiazide 25 mg tablet RxNorm: 233417 Take 1 Tablet(s) Oral QD 07/02/19 23 023 Inactive oxycodone 5 mg tablet RxNorm: 3850571 Take 1 Tablet(s) Oral TID then discontinue and start belbuca (d/c 10mg TID) 07/02/19 23 023 Inactive stop after 7 days duloxetine 60 mg capsule,delayed release RxNorm: 085371 Take 2 Capsule(s) Oral QD 07/02/19 23 023 Inactive Narcan 4 mg/actuation nasal spray RxNorm: 0643539 Give 1 Latexo Nasal UD as directed 1 spray contents of ONE device into nostril, call 911. May repeat once with 2nd device 07/02/19 23 023 Inactive fluticasone propionate 50 mcg/actuation nasal spray,suspension RxNorm: 8527128 Latexo 2 Latexo Nasal QD - Daily both nostrils 07/02/19 23 023 Inactive magnesium oxide 400 mg (241.3 mg magnesium) tablet RxNorm: 892032 Give 1 Tablet(s) Oral BID 07/02/19 23 023 Inactive cholecalciferol (vitamin D3) 25 mcg (1,000 unit) tablet RxNorm: 307223 Take 1 Tablet(s) Oral QAM every morning 07/02/19 023 Inactive oxycodone 5 mg tablet RxNorm: 1492294 Take 2 Tablet(s) Oral TID PRN 06/04/19 23 023 Inactive azithromycin 250 mg tablet RxNorm: 552087 Take Tablet(s) Oral QD 2 Tablets PO QD x 1 Day - Then 1 Tablet PO QD x 4 Days 05/10/19 23 023 Inactive oxycodone 5 mg tablet RxNorm: 8492175 Take 2 Tablet(s) Oral TID /difficulty breathing 05/03/19 23 023 Inactive oxycodone 5 mg tablet RxNorm: 1806845 Take 2 Tablet(s) Oral TID /difficulty breathing 03/03/20 22 022 Inactive azithromycin 250 mg tablet RxNorm: 351122 Take Tablet(s) Oral QD 2 Tablets PO QD x 1 Day - Then 1 Tablet PO QD x 4 Days 05/10/19 23 023 Inactive zolpidem 5 mg tablet RxNorm: 348698 Take 1 Tablet(s) Oral QHS every night at bedtime as needed 03/28/19 023 Inactive Medication Administered No Medication Administered data Results Observation Observation Code Item Item Code Result Date Service Location Albumin, micro/Creatinine , Urine Ratio [facility] Albumin, micro 1751-7 0.70 mg/dL 07/18/19 24 Unknown Albumin, micro/Creatinine , Urine Ratio [facility] Albumin, micro/Creatinin e, Urine Ratio 14.94 mg/gcrea 07/18/19 24 Unknown Albumin, micro/Creatinine , Urine Ratio [facility] Creatinine 2160-0 46.84 mg/dL 07/18/19 24 Unknown PDFReport PDFReport PDFReport 07/17/19 24 Unknown PDFReport PDFReport PDFReport 07/17/19 24 Unknown Procedures Procedure Codes Date BEHAV CHNG SMOKING 3-[address]: 2 29606098 CPT-4: 08615 06/29/2022 Reason For Visit No Reason For Visit data Plan of Care Planned Activity Notes Codes Status Date Patient Education: Patient M edication Summary Completed 06/23/2023 Care Plan: Complete Metaboli c Panel (CMP) Pending 06/23/2023 Care Plan: CBC with Differen tial / Platelets Pending 06/23/2023 Care Plan: Hemoglobin A1c Pending 06/23/2023 Care Plan: Lipid Panel (LP) Pending 06/23/2023 Care Plan: TSH Pending 06/23/2023 Care Plan: Vitamin D, 25-Hydroxy Pen ding 06/23/2023 Care Plan: Vitamin B12 Pending Appointment: Yesika Adams WPtel: [address] [place] [address] [id number] Telehealth- Est Pt 08/11/2022 Referral: [facility] WPtel: [phone] [facility] [id number] Referral Records Received 07/18/2022 Instructions Comment Date Rena is a resident a [facility].?? Previously was seen by doctor in [place].?? First [facility] visit 03/10.?? Arthritis/pain complaints and anxiety are her biggest concerns. Johnnie (in 2020). 2 sons - son Korey visits (From??[facility]).??AWV:Colonoscopy due 2024.??Labs:??- Yearly JULY (CMP, CBC with differential, A1c, Lipid panel, TSH, VitD, VitB12, urine microalbumin)- Q6mo JANUARY (BMP )- Q3mo JULY, OCT, JAN, FEB, (A1c)*4.30.2023 (urine mircoalbumin creat ratio 14.94 WNL) 09/07/2023
--- OUTSIDE RECORDS SUMMARY | 2023-09-07 20:10 | XMS_ITS | CCD ---
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 Name Role Phone Eleno Justo KELLEY Primary Care Provider Nirmala vailable Unavailable Chronic Care Management Unavaila ble Summary Purpose DataExchange Insurance Providers Payer name Policy type / Coverage type Covered green party ID Effective Begin Date Effective End Date [place] Blue Cross/Blue Shield [id number] 2023 Unknown [place] [id number] Unknown Family history Mother Diagnosis Age At Onset Glaucoma Unknown Brother Diagnosis Age At Onset Visual disturbance/blindness Unknown Glaucoma Unknown Father Diagnosis Age At Onset Stomach cancer Unknown Social History Social History Element Codes Description Effec tive Dates Tobacco history SNOMED CT: 96194584 Current every day smoker 07/01/[address]: 252948192 No Alcohol Consum ption 07/01/2022 Allergies, Adverse Reactions, Alerts Substance Reaction Codes Entered Date Inactivated Date Status Bee Sting Unknown 03/03/2022 No Inactive Date Ac tive NSAIDS Unknown 03/03/2022 No Inactive Date Ac tive PENICILLINS Unknown 03/03/2022 No Inactive Date Active losartan RxNorm: 470008 03/03/2022 No Inactive Da te Active aspirin Unknown 03/03/2022 No Inactive Date Ac tive tramadol RxNorm: 36705 03/03/2022 No Inactive Marek e Active Other: Unknown 03/03/2022 No Inactive Date Ac tive VARENICLINE Unknown 03/03/2022 No Inactive Date Active Problems Condition Codes Effective Dates Condition St atus Chronic pain ICD-10: G89.29 ICD-9: 338.29 06/14/2023 Active Disorientation, unspecified ICD-10: R41. 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..] Strip BIW biweekly 06/14/19 24 024 Inactive FreeStyle Kristie 14 Day Sensor kit RxNorm: Use 1 Test Strip BIW biweekly 06/14/19 24 024 Active Protective Underwear Ex-Large RxNorm: USE DIRECTED 06/01/19 Active Banophen 25 mg capsule RxNorm: 8738676 Take 1-2 Capsule(s) Oral Q8H every 8 hours as needed for Allergies 05/24/19 No Stop Date Active Banophen 25 mg capsule RxNorm: 2819969 Take 1-2 Capsule(s) Oral Q8H every 8 hours as needed 05/24/19 24 024 Inactive torsemide 20 mg tablet RxNorm: 466851 Take 1 Tablet(s) Oral QAM every morning 05/22/19 24 025 Active 05/22/2023 PROACTIVE REFILL REQUEST FOR NEXT CYCLE PLEASE THANK YOU RX has/will before cycle date famotidine 20 mg tablet RxNorm: 273379 Take 1 Tablet(s) Oral QHS every night at bedtime 05/22/19 24 025 Active 05/22/2023 PROACTIVE REFILL REQUEST FOR NEXT CYCLE PLEASE THANK YOU Aspercreme (lidocaine) 4 % topical patch RxNorm: 6858243 Apply 1 Patch Topical QD (on for 12 hours, off for 12 hours) 05/15/19 24 025 Active dorzolamide 22.3 mg-timolol 6.8 mg/mL eye drops RxNorm: 5695542 Apply 1 Drop(s) Both eyes BID 04/27/19 24 025 Active Humalog KwikPen (U-100) Insulin 100 unit/mL subcutaneous RxNorm: 1994371 Inject 0-7 Unit(s) Subcutaneous Inject per sliding scale BID before lunch and dinner 04/25/19 24 024 Inactive melatonin 3 mg tablet RxNorm: 297096 Take 1 Tablet(s) Oral QHS every night at bedtime 02/29/20 23 024 Active 02/28/2023 PROACTIVE REFILL REQUEST FOR NEXT CYCLE PLEASE THANK YOU potassium chloride ER 20 mEq tablet,extended release(part/cryst) RxNorm: 5881766 Take 2 Tablet(s) Oral QD 02/29/20 23 024 Active 02/28/2023 PROACTIVE REFILL REQUEST FOR NEXT CYCLE PLEASE THANK YOU atorvastatin 10 mg tablet RxNorm: 481561 Take 1 Tablet(s) Oral QD 01/06/20 23 024 Active 01/05/2023 PROACTIVE REFILL REQUEST FOR NEXT CYCLE PLEASE THANK YOU fluticasone propionate 50 mcg/actuation nasal spray,suspension RxNorm: 8763273 [place] 2 [place] Nasal QD - Daily both nostrils 12/20/19 No Stop Date Active nicotine 21 mg/24 hr daily transdermal patch RxNorm: Apply 1 Transdermal QD 12/02/19 23 023 Inactive nicotine 21 mg/24 hr daily transdermal patch RxNorm: Apply 1 Transdermal QD 11/29/19 23 023 Inactive loratadine 10 mg tablet RxNorm: 661612 Take 1 Tablet(s) Oral QD as needed 11/23/19 23 024 Inactive loratadine 10 mg tablet RxNorm: 597484 Take 1 Tablet(s) Oral QD as needed 11/23/19 23 023 Inactive nicotine 21 mg/24 hr daily transdermal patch RxNorm: Apply 1 Transdermal QD 11/16/19 023 Inactive aspirin 81 mg tablet,delayed release RxNorm: 564283 Take 1 Tablet(s) Oral QD 11/15/19 23 024 Active 2ND REQUEST 11/11/2022 NEED KIM PLEASE THANK YOU nicotine 21 mg/24 hr daily transdermal patch RxNorm: Apply 1 Transdermal QD 11/02/19 23 023 Inactive amlodipine 10 mg tablet RxNorm: 580744 Take 1 Tablet(s) Oral QD 10/20/19 23 024 Active nicotine 21 mg/24 hr daily transdermal patch RxNorm: APPLY 1 PATCH ONCE DAILY 10/18/19 23 023 Inactive Pen Needle 30 gauge x 08/02 RxNorm: Use 1 Unit(s) TID Use as directed to administer insulin up to 3x daily 10/12/19 23 024 Inactive cholecalciferol (vitamin D3) 25 mcg (1,000 unit) tablet RxNorm: 962161 TAKE 1 TABLET BY MOUTH DAILY (1,000 UNITS) 09/14/19 23 024 Active 09/13/2022 PROACTIVE REFILL REQUEST FOR NEXT CYCLE PLEASE THANK YOU Systane Ultra 0.4 %-0.3 % eye drops RxNorm: 321460 Instill 1 Drop(s) Both eyes QID 09/06/19 No Stop Date Active diclofenac 1 % topical gel RxNorm: 669024 Apply 4 Gram(s) Topical QID (bilateral knees or area of pain per patient's request) 09/01/19 No Stop Date Active acetaminophen 325 mg tablet RxNorm: 547793 Take 1 Tablet(s) Oral Q4H every four hours as needed 09/01/19 No Stop Date Active Lantus Solostar U-100 Insulin 100 unit/mL (3 mL) subcutaneous pen RxNorm: 865349 Inject 20 Unit(s) Subcutaneous QHS every night at bedtime 09/01/19 024 Inactive Pen Needle 30 gauge x 5/16 RxNorm: Use as directed to administer insulin up to 3x daily 09/01/19 023 Inactive Humalog KwikPen (U-100) Insulin 100 unit/mL subcutaneous RxNorm: 2939223 Unit(s) Subcutaneous Inject per sliding scale BID before lunch and dinner 09/01/19 024 Inactive Aspercreme (lidocaine) 4 % topical patch RxNorm: 1110582 Apply 1 Patch Topical QD (on for 12 hours, off for 12 hours) 09/01/19 024 Inactive melatonin 3 mg tablet RxNorm: 415304 Take 2 Tablet(s) Oral QHS every night at bedtime as needed (may repeat once) 09/01/19 023 Inactive hydrochlorothiazide 25 mg tablet RxNorm: 335228 Take 1 Tablet(s) Oral QD 07/23/19 23 024 Inactive 2nd REQUEST FOR REFILLS 07-22-2022 NEED KIM PLEASE = THANK YOU Januvia 100 mg tablet RxNorm: 154135 Take 1 Tablet(s) Oral QD 07/23/19 23 023 Inactive 2nd REQUEST FOR REFILLS 07-22-2022 NEED KIM PLEASE = THANK YOU potassium chloride ER 10 mEq capsule,extended release RxNorm: 326766 TAKE 1 CAPSULE BY MOUTH TWICE DAILY WITH MEAL(S) 07/23/19 23 023 Inactive 2nd REQUEST FOR REFILLS 07-22-2022 NEED KIM PLEASE = THANK YOU duloxetine 60 mg capsule,delayed release RxNorm: 615667 Take 2 Capsule(s) Oral QD 07/23/19 23 023 Inactive 2nd REQUEST FOR REFILLS 07-22-2022 NEED KIM PLEASE = THANK YOU pantoprazole 40 mg tablet,delayed release RxNorm: 584811 TAKE 1 TABLET BY MOUTH EVERY MORNING BEFORE BREAKFAST 07/23/19 23 023 Inactive 2nd REQUEST FOR REFILLS 07-22-2022 NEED KIM PLEASE = THANK YOU magnesium oxide 400 mg (241.3 mg magnesium) tablet RxNorm: 229025 Take 1 Tablet(s) Oral BID 07/23/19 23 023 Inactive 2nd REQUEST FOR REFILLS 07-22-2022 NEED KIM PLEASE = THANK YOU acetaminophen 500 mg tablet RxNorm: 847429 Take 2 Tablet(s) Oral TID 07/23/19 23 023 Inactive 2nd REQUEST FOR REFILLS 07-22-2022 NEED KIM PLEASE = THANK YOU risperidone 2 mg tablet RxNorm: 899213 Take 1 Tablet(s) Oral BID 07/23/19 23 023 Inactive 2nd REQUEST FOR REFILLS 07-22-2022 NEED KIM PLEASE = THANK YOU buprenorphine HCl 2 mg sublingual tablet RxNorm: 355037 Take 1 Tablet(s) Sublingual TID 07/19/19 23 023 Inactive buprenorphine HCl 2 mg sublingual tablet RxNorm: 097815 Take 1 Tablet(s) Sublingual TID 07/19/19 23 023 Inactive oxycodone 5 mg tablet RxNorm: 0477734 Take 1 Tablet(s) Oral BID x7 days then decrease to 1 tab once daily x 7 days then d/c 07/09/19 23 023 Inactive latanoprost 0.005 % eye drops RxNorm: 333596 Take 1 Drop(s) Both eyes QHS every night at bedtime 07/07/19 23 023 Inactive buprenorphine 5 mcg/hour weekly transdermal patch RxNorm: 851600 Apply 1 Transdermal once every 7 days 07/06/19 23 023 Inactive zolpidem 5 mg tablet RxNorm: 610396 Take 1 Tablet(s) Oral QHS every night at bedtime 04 023 Inactive buprenorphine 5 mcg/hour weekly transdermal patch RxNorm: 404076 Apply 1 Transdermal once every 7 days 07/06/19 023 Inactive start after stops oxycodone. belbuca film not covered acetaminophen 500 mg tablet RxNorm: 664044 Take 2 Tablet(s) Oral TID 07/02/19 023 Inactive famotidine 20 mg tablet RxNorm: 809674 Give 1 Tablet(s) Oral QHS every night at bedtime 07/02/19 024 Inactive amlodipine 5 mg tablet RxNorm: 677441 Take 1 Tablet(s) Oral QD 07/02/19 023 Inactive nicotine 21 mg/24 hr daily transdermal patch RxNorm: 027948 Apply 1 Patch Transdermal QD Remove old patch prior to placing the new one 07/02/19 023 Inactive gabapentin 600 mg tablet RxNorm: 310589 Take 1 Tablet(s) Oral TID 07/02/19 023 Inactive risperidone 2 mg tablet RxNorm: 585617 Take 1 Tablet(s) Oral BID 07/02/19 023 Inactive pantoprazole 40 mg intravenous solution RxNorm: 915618 Take 1 Tablet(s) Intravenous QAM every morning 07/02/19 023 Inactive torsemide 20 mg tablet RxNorm: 410341 Take 1 Tablet(s) Oral QAM every morning 07/02/19 024 Inactive Januvia 100 mg tablet RxNorm: 812799 Take 1 Tablet(s) Oral QD 07/02/19 023 Inactive atorvastatin 10 mg tablet RxNorm: 701804 Take 1 Tablet(s) Oral QHS every night at bedtime 07/02/19 023 Inactive potassium chloride ER 10 mEq tablet,extended release RxNorm: 882706 Take 1 Tablet(s) Oral BID 07/02/19 23 023 Inactive Belbuca 75 mcg buccal film RxNorm: 2052512 Take 1/2 film (37.5mcg) (cut diagonally) BID (start AFTER stopping oxycodone) 07/02/19 023 Inactive start belbuca in 7 days AFTER patient stops oxycodone aspirin 81 mg tablet,delayed release RxNorm: 165178 Take 1 Tablet(s) Oral QD 07/02/19 023 Inactive dorzolamide 22.3 mg-timolol 6.8 mg/mL eye drops RxNorm: 9622205 Apply 1 Drop(s) Both eyes BID 07/02/19 024 Inactive latanoprost 0.005 % eye drops RxNorm: 267335 Take 1 Drop(s) Both eyes QHS every night at bedtime 07/02/19 023 Inactive Systane Ultra 0.4 %-0.3 % eye drops RxNorm: 806382 Apply 1 Drop(s) Both eyes QID 07/02/19 023 Inactive Lantus Solostar U-100 Insulin 100 unit/mL (3 mL) subcutaneous pen RxNorm: 705675 Take 40 Unit(s) Subcutaneous QHS every night at bedtime 07/02/19 023 Inactive oxybutynin chloride 5 mg tablet RxNorm: 094245 Administer 1 Tablet(s) Oral QHS every night at bedtime 07/02/19 023 Inactive Miralax 17 gram oral powder packet RxNorm: 974578 Take 1 Packet Oral QD 07/02/19 023 Inactive hydrochlorothiazide 25 mg tablet RxNorm: 109195 Take 1 Tablet(s) Oral QD 07/02/19 023 Inactive oxycodone 5 mg tablet RxNorm: 0860138 Take 1 Tablet(s) Oral TID then discontinue and start belbuca (d/c 10mg TID) 07/02/19 23 023 Inactive stop after 7 days duloxetine 60 mg capsule,delayed release RxNorm: 546020 Take 2 Capsule(s) Oral QD 07/02/19 23 023 Inactive Narcan 4 mg/actuation nasal spray RxNorm: 9736217 Give 1 [place] Nasal UD as directed 1 spray contents of ONE device into nostril, call 911. May repeat once with 2nd device 07/02/19 23 023 Inactive fluticasone propionate 50 mcg/actuation nasal spray,suspension RxNorm: 3671085 [place] 2 [place] Nasal QD - Daily both nostrils 07/02/19 023 Inactive magnesium oxide 400 mg (241.3 mg magnesium) tablet RxNorm: 048439 Give 1 Tablet(s) Oral BID 07/02/19 023 Inactive cholecalciferol (vitamin D3) 25 mcg (1,000 unit) tablet RxNorm: 906958 Take 1 Tablet(s) Oral QAM every morning 07/02/19 023 Inactive oxycodone 5 mg tablet RxNorm: 9806637 Take 2 Tablet(s) Oral TID PRN 06/04/19 023 Inactive azithromycin 250 mg tablet RxNorm: 998684 Take Tablet(s) Oral QD 2 Tablets PO QD x 1 Day - Then 1 Tablet PO QD x 4 Days 05/10/19 023 Inactive oxycodone 5 mg tablet RxNorm: 8495219 Take 2 Tablet(s) Oral TID /difficulty breathing 05/03/19 023 Inactive oxycodone 5 mg tablet RxNorm: 5041124 Take 2 Tablet(s) Oral TID /difficulty breathing 03/03/20 022 Inactive azithromycin 250 mg tablet RxNorm: 755125 Take Tablet(s) Oral QD 2 Tablets PO QD x 1 Day - Then 1 Tablet PO QD x 4 Days 05/10/19 023 Inactive zolpidem 5 mg tablet RxNorm: 939833 Take 1 Tablet(s) Oral QHS every night at bedtime as needed 03/28/19 023 Inactive Medication Administered No Medication Administered data Procedures Procedure Codes Date BEHAV CHNG SMOKING 3-[address]: 2 36916240 CPT-4: 90315 06/29/2022 Reason For Visit No Reason For Visit data Plan of Care Planned Activity Notes Codes Status Date Referral: [facility] WPtel: [id number] [place], [place] [id number] Referral Records Received 07/18/2022 Instructions Comment Date Rena is a resident a [facility].?? Previously was seen by doctor in [place].?? First [facility] visit 03/10.?? Arthritis/pain complaints and anxiety are her biggest concerns. Johnnie (in 2020). 2 sons - son Korey visits (From[facility]).??AWV:Colonoscopy due 2024.??Labs:??- Yearly JULY (CMP, CBC with differential, A1c, Lipid panel, TSH, VitD, VitB12, urine microalbumin)- Q6mo JANUARY (BMP )- Q3mo JULY, OCT, JAN, APR, (A1c)*4.30.2023 (urine mircoalbumin creat ratio 14.94 WNL) 09/07/2023
--- OUTSIDE RECORDS SUMMARY | 2023-09-07 20:10 | XMS_ITS | CCD ---
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 Name Role Phone Eleno KELLEYChristiee Primary Care Provider Nirmala vailable Unavailable Chronic Care Management Unavaila ble Summary Purpose DataExchange Insurance Providers Payer name Policy type / Coverage type Covered republican ID Effective Begin Date Effective End Date [place] Blue [place] Medicaid Blue Cross/Blue Shield [id number] Unknown Medicaid [place] Blue Cross/Blue Shield [id number] Unknown Family history Mother Diagnosis Age At Onset Glaucoma Unknown Brother Diagnosis Age At Onset Visual disturbance/blindness Unknown Glaucoma Unknown Father Diagnosis Age At Onset Stomach cancer Unknown Social History Social History Element Codes Description Effec tive Dates Tobacco history SNOMED CT: 04341753 Current every day smoker 07/01/[address]: 134228811 No Alcohol Consum ption 07/01/2022 Allergies, Adverse Reactions, Alerts Substance Reaction Codes Entered Date Inactivated Date Status Bee Sting Unknown 03/03/2022 No Inactive Date Ac tive NSAIDS Unknown 03/03/2022 No Inactive Date Ac tive PENICILLINS Unknown 03/03/2022 No Inactive Date Active losartan RxNorm: 041518 03/03/2022 No Inactive Da te Active aspirin Unknown 03/03/2022 No Inactive Date Ac tive tramadol RxNorm: 59304 03/03/2022 No Inactive Marek e Active Other: [...] Headache ICD-10: R51.9 ICD-9: 784.0 06/14/2023 Resolved correction (current) use of insulin ICD-10: Z79.4 06/13 [...] 1 Test Strip BIW biweekly 06/14/19 24 Active Protective Underwear Ex-Large RxNorm: USE DIRECTED 06/01/19 24 Active Banophen 25 mg capsule RxNorm: 4929282 Take 1-2 Capsule(s) Oral Q8H every 8 hours as needed for Allergies 05/24/19 No Stop Date Active Banophen 25 mg capsule RxNorm: 1560333 Take 1-2 Capsule(s) Oral Q8H every 8 hours as needed 05/24/19 24 Inactive torsemide 20 mg tablet RxNorm: 599845 Take 1 Tablet(s) Oral QAM every morning 05/22/19 24 025 Active 05/22/2023 PROACTIVE REFILL REQUEST FOR NEXT CYCLE PLEASE THANK YOU RX has/will before cycle date famotidine 20 mg tablet RxNorm: 241127 Take 1 Tablet(s) Oral QHS every night at bedtime 05/22/19 24 025 Active 05/22/2023 PROACTIVE REFILL REQUEST FOR NEXT CYCLE PLEASE THANK YOU Aspercreme (lidocaine) 4 % topical patch RxNorm: 3379508 Apply 1 Patch Topical QD (on for 12 hours, off for 12 hours) 05/15/19 24 025 Active dorzolamide 22.3 mg-timolol 6.8 mg/mL eye drops RxNorm: 0777598 Apply 1 Drop(s) Both eyes BID 04/27/19 24 025 Active Humalog KwikPen (U-100) Insulin 100 unit/mL subcutaneous RxNorm: 1753974 Inject 0-7 Unit(s) Subcutaneous Inject per sliding scale BID before lunch and dinner 04/25/19 24 024 Inactive melatonin 3 mg tablet RxNorm: 409127 Take 1 Tablet(s) Oral QHS every night at bedtime 02/29/20 23 024 Active 02/28/2023 PROACTIVE REFILL REQUEST FOR NEXT CYCLE PLEASE THANK YOU potassium chloride ER 20 mEq tablet,extended release(part/cryst) RxNorm: 1048917 Take 2 Tablet(s) Oral QD 02/29/20 23 024 Active 02/28/2023 PROACTIVE REFILL REQUEST FOR NEXT CYCLE PLEASE THANK YOU atorvastatin 10 mg tablet RxNorm: 064187 Take 1 Tablet(s) Oral QD 01/06/20 024 Active 01/05/2023 PROACTIVE REFILL REQUEST FOR NEXT CYCLE PLEASE THANK YOU fluticasone propionate 50 mcg/actuation nasal spray,suspension RxNorm: 0763407 [place] 2 [place] Nasal QD - Daily both nostrils 12/20/19 No Stop Date Active nicotine 21 mg/24 hr daily transdermal patch RxNorm: Apply 1 Transdermal QD 12/02/19 23 023 Inactive nicotine 21 mg/24 hr daily transdermal patch RxNorm: Apply 1 Transdermal QD 11/29/19 23 023 Inactive loratadine 10 mg tablet RxNorm: 700962 Take 1 Tablet(s) Oral QD as needed 11/23/19 23 024 Inactive loratadine 10 mg tablet RxNorm: 889067 Take 1 Tablet(s) Oral QD as needed 11/23/19 23 023 Inactive nicotine 21 mg/24 hr daily transdermal patch RxNorm: Apply 1 Transdermal QD 11/16/19 23 023 Inactive aspirin 81 mg tablet,delayed release RxNorm: 832705 Take 1 Tablet(s) Oral QD 11/15/19 23 024 Active 2ND REQUEST 11/11/2022 NEED KIM PLEASE THANK YOU nicotine 21 mg/24 hr daily transdermal patch RxNorm: Apply 1 Transdermal QD 11/02/19 23 023 Inactive amlodipine 10 mg tablet RxNorm: 775890 Take 1 Tablet(s) Oral QD 10/20/19 23 024 Active nicotine 21 mg/24 hr daily transdermal patch RxNorm: APPLY 1 PATCH ONCE DAILY 10/18/19 23 023 Inactive Pen Needle 30 gauge x 08/02 RxNorm: Use 1 Unit(s) TID Use as directed to administer insulin up to 3x daily 10/12/19 23 024 Inactive cholecalciferol (vitamin D3) 25 mcg (1,000 unit) tablet RxNorm: 346965 TAKE 1 TABLET BY MOUTH DAILY (1,000 UNITS) 09/14/19 23 024 Active 09/13/2022 PROACTIVE REFILL REQUEST FOR NEXT CYCLE PLEASE THANK YOU Systane Ultra 0.4 %-0.3 % eye drops RxNorm: 153284 Instill 1 Drop(s) Both eyes QID 09/06/19 No Stop Date Active diclofenac 1 % topical gel RxNorm: 303926 Apply 4 Gram(s) Topical QID (bilateral knees or area of pain per patient's request) 09/01/19 No Stop Date Active acetaminophen 325 mg tablet RxNorm: 364179 Take 1 Tablet(s) Oral Q4H every four hours as needed 09/01/19 No Stop Date Active Lantus Solostar U-100 Insulin 100 unit/mL (3 mL) subcutaneous pen RxNorm: 173171 Inject 20 Unit(s) Subcutaneous QHS every night at bedtime 09/01/19 024 Inactive Pen Needle 30 gauge x 5/16 RxNorm: Use as directed to administer insulin up to 3x daily 09/01/19 23 023 Inactive Humalog KwikPen (U-100) Insulin 100 unit/mL subcutaneous RxNorm: 0186115 Unit(s) Subcutaneous Inject per sliding scale BID before lunch and dinner 09/01/19 23 024 Inactive Aspercreme (lidocaine) 4 % topical patch RxNorm: 5317244 Apply 1 Patch Topical QD (on for 12 hours, off for 12 hours) 09/01/19 23 024 Inactive melatonin 3 mg tablet RxNorm: 649890 Take 2 Tablet(s) Oral QHS every night at bedtime as needed (may repeat once) 09/01/19 23 023 Inactive hydrochlorothiazide 25 mg tablet RxNorm: 369195 Take 1 Tablet(s) Oral QD 07/23/19 23 024 Inactive 2nd REQUEST FOR REFILLS 07-22-2022 NEED KIM PLEASE = THANK YOU Januvia 100 mg tablet RxNorm: 543888 Take 1 Tablet(s) Oral QD 07/23/19 23 023 Inactive 2nd REQUEST FOR REFILLS 07-22-2022 NEED KIM PLEASE = THANK YOU potassium chloride ER 10 mEq capsule,extended release RxNorm: 054315 TAKE 1 CAPSULE BY MOUTH TWICE DAILY WITH MEAL(S) 07/23/19 23 023 Inactive 2nd REQUEST FOR REFILLS 07-22-2022 NEED KIM PLEASE = THANK YOU duloxetine 60 mg capsule,delayed release RxNorm: 378588 Take 2 Capsule(s) Oral QD 07/23/19 23 023 Inactive 2nd REQUEST FOR REFILLS 07-22-2022 NEED KIM PLEASE = THANK YOU pantoprazole 40 mg tablet,delayed release RxNorm: 696238 TAKE 1 TABLET BY MOUTH EVERY MORNING BEFORE BREAKFAST 07/23/19 23 023 Inactive 2nd REQUEST FOR REFILLS 07-22-2022 NEED KIM PLEASE = THANK YOU magnesium oxide 400 mg (241.3 mg magnesium) tablet RxNorm: 105066 Take 1 Tablet(s) Oral BID 07/23/19 23 023 Inactive 2nd REQUEST FOR REFILLS 07-22-2022 NEED KIM PLEASE = THANK YOU acetaminophen 500 mg tablet RxNorm: 685823 Take 2 Tablet(s) Oral TID 07/23/19 23 023 Inactive 2nd REQUEST FOR REFILLS 07-22-2022 NEED KIM PLEASE = THANK YOU risperidone 2 mg tablet RxNorm: 342386 Take 1 Tablet(s) Oral BID 07/23/19 23 023 Inactive 2nd REQUEST FOR REFILLS 07-22-2022 NEED KIM PLEASE = THANK YOU buprenorphine HCl 2 mg sublingual tablet RxNorm: 290305 Take 1 Tablet(s) Sublingual TID 07/19/19 23 023 Inactive buprenorphine HCl 2 mg sublingual tablet RxNorm: 841047 Take 1 Tablet(s) Sublingual TID 07/19/19 23 023 Inactive oxycodone 5 mg tablet RxNorm: 2531952 Take 1 Tablet(s) Oral BID x7 days then decrease to 1 tab once daily x 7 days then d/c 07/09/19 23 023 Inactive latanoprost 0.005 % eye drops RxNorm: 179135 Take 1 Drop(s) Both eyes QHS every night at bedtime 07/07/19 23 023 Inactive buprenorphine 5 mcg/hour weekly transdermal patch RxNorm: 807233 Apply 1 Transdermal once every 7 days 07/06/19 023 Inactive zolpidem 5 mg tablet RxNorm: 478355 Take 1 Tablet(s) Oral QHS every night at bedtime 07/06/19 023 Inactive buprenorphine 5 mcg/hour weekly transdermal patch RxNorm: 706190 Apply 1 Transdermal once every 7 days 07/06/19 023 Inactive start after stops oxycodone. belbuca film not covered acetaminophen 500 mg tablet RxNorm: 798738 Take 2 Tablet(s) Oral TID 07/02/19 023 Inactive famotidine 20 mg tablet RxNorm: 566228 Give 1 Tablet(s) Oral QHS every night at bedtime 07/02/19 024 Inactive amlodipine 5 mg tablet RxNorm: 940364 Take 1 Tablet(s) Oral QD 07/02/19 023 Inactive nicotine 21 mg/24 hr daily transdermal patch RxNorm: 861320 Apply 1 Patch Transdermal QD Remove old patch prior to placing the new one 07/02/19 023 Inactive gabapentin 600 mg tablet RxNorm: 766851 Take 1 Tablet(s) Oral TID 07/02/19 023 Inactive risperidone 2 mg tablet RxNorm: 377869 Take 1 Tablet(s) Oral BID 07/02/19 023 Inactive pantoprazole 40 mg intravenous solution RxNorm: 139022 Take 1 Tablet(s) Intravenous QAM every morning 07/02/19 023 Inactive torsemide 20 mg tablet RxNorm: 219505 Take 1 Tablet(s) Oral QAM every morning 07/02/19 024 Inactive Januvia 100 mg tablet RxNorm: 742226 Take 1 Tablet(s) Oral QD 07/02/19 023 Inactive atorvastatin 10 mg tablet RxNorm: 878401 Take 1 Tablet(s) Oral QHS every night at bedtime 07/02/19 023 Inactive potassium chloride ER 10 mEq tablet,extended release RxNorm: 911928 Take 1 Tablet(s) Oral BID 07/02/19 23 023 Inactive [place] 75 mcg buccal film RxNorm: 6742144 Take 1/2 film (37.5mcg) (cut diagonally) BID (start AFTER stopping oxycodone) 07/02/19 023 Inactive start belbuca in 7 days AFTER patient stops oxycodone aspirin 81 mg tablet,delayed release RxNorm: 282656 Take 1 Tablet(s) Oral QD 07/02/19 023 Inactive dorzolamide 22.3 mg-timolol 6.8 mg/mL eye drops RxNorm: 7235535 Apply 1 Drop(s) Both eyes BID 07/02/19 23 024 Inactive latanoprost 0.005 % eye drops RxNorm: 982357 Take 1 Drop(s) Both eyes QHS every night at bedtime 07/02/19 023 Inactive Systane Ultra 0.4 %-0.3 % eye drops RxNorm: 981915 Apply 1 Drop(s) Both eyes QID 07/02/19 023 Inactive Lantus Solostar U-100 Insulin 100 unit/mL (3 mL) subcutaneous pen RxNorm: 614919 Take 40 Unit(s) Subcutaneous QHS every night at bedtime 07/02/19 23 023 Inactive oxybutynin chloride 5 mg tablet RxNorm: 253959 Administer 1 Tablet(s) Oral QHS every night at bedtime 07/02/19 023 Inactive Miralax 17 gram oral powder packet RxNorm: 244230 Take 1 Packet Oral QD 07/02/19 023 Inactive hydrochlorothiazide 25 mg tablet RxNorm: 945060 Take 1 Tablet(s) Oral QD 07/02/19 23 023 Inactive oxycodone 5 mg tablet RxNorm: 5790185 Take 1 Tablet(s) Oral TID then discontinue and start belbuca (d/c 10mg TID) 07/02/19 23 023 Inactive stop after 7 days duloxetine 60 mg capsule,delayed release RxNorm: 522656 Take 2 Capsule(s) Oral QD 07/02/19 23 023 Inactive Narcan 4 mg/actuation nasal spray RxNorm: 9436067 Give 1 [place] Nasal UD as directed 1 spray contents of ONE device into nostril, call 911. May repeat once with 2nd device 07/02/19 23 023 Inactive fluticasone propionate 50 mcg/actuation nasal spray,suspension RxNorm: 3249168 [place] 2 [place] Nasal QD - Daily both nostrils 07/02/19 23 023 Inactive magnesium oxide 400 mg (241.3 mg magnesium) tablet RxNorm: 233559 Give 1 Tablet(s) Oral BID 07/02/19 023 Inactive cholecalciferol (vitamin D3) 25 mcg (1,000 unit) tablet RxNorm: 464896 Take 1 Tablet(s) Oral QAM every morning 07/02/19 023 Inactive oxycodone 5 mg tablet RxNorm: 8592316 Take 2 Tablet(s) Oral TID PRN 06/04/19 23 023 Inactive azithromycin 250 mg tablet RxNorm: 016177 Take Tablet(s) Oral QD 2 Tablets PO QD x 1 Day - Then 1 Tablet PO QD x 4 Days 05/10/19 23 023 Inactive oxycodone 5 mg tablet RxNorm: 0072926 Take 2 Tablet(s) Oral TID /difficulty breathing 05/03/19 023 Inactive oxycodone 5 mg tablet RxNorm: 9131862 Take 2 Tablet(s) Oral TID /difficulty breathing 03/03/20 22 022 Inactive azithromycin 250 mg tablet RxNorm: 582157 Take Tablet(s) Oral QD 2 Tablets PO QD x 1 Day - Then 1 Tablet PO QD x 4 Days 05/10/19 23 023 Inactive zolpidem 5 mg tablet RxNorm: 383696 Take 1 Tablet(s) Oral QHS every night at bedtime as needed 03/28/19 023 Inactive Medication Administered No Medication Administered data Procedures Procedure Codes Date SYST BP GE 130 - 139MM HG CPT-4: 3075F 2023 DIAST BP 80-89 MM HG CPT-4: 3079F 06/14/2023 BEHAV CHNG SMOKING 3-[address]: 2 33808906 CPT-4: 27322 06/29/2022 Vital Signs Date Vital 06/14/2023 Blood Pressure 1: 130/82 Code: 8480-6 Heart Rate 1: 97 bpm Code: 8867-4 SpO2: 99% Temperature: 36.5 (C) / 97.7 (F) Reason For Visit No Reason For Visit data Encounters Encounter Performer Location Location Address Codes Date ([address]) Home or Residence Visit Est Pt - Moderate Level, 40 mins Diagnosis: Chronic pain[ICD10: G89.29] Diagnosis: Disorientation, unspecified[ICD10: R41.0] Diagnosis: Hypertension[ICD10: I10] Diagnosis: Hypokalemia[ICD10: E87.6] Diagnosis: Insomnia[ICD10: G47.00] Diagnosis: 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] Diagnosis: Smoking[ICD10: F17.200] Diagnosis: Type 2 diabetes mellitus with other circulatory complication, with long-term current use of insulin[ICD10: E11.59] [address] [place] [address] CPT-4: 18294 4 Plan of Care Planned Activity Notes Codes Status Date Appointment: Yesika Adams WPtel: [address] [place] [address] [phone] [id number] [place] Telehealth- Est Pt 08/11/2022 Referral: [facility] WPtel: [id number] [place] [address] 100 [id number] Referral Records Received 07/18/2022 Instructions Comment Date Rena is a resident a [facility].?? Previously was seen by doctor in [place].?? First [facility] visit 03/10.?? Arthritis/pain complaints and anxiety are her biggest concerns. Johnnie (in 2020). 2 sons - son Korey visits (From??[facility]).??AWV:Colonoscopy due 2024.??Labs:??- Yearly JULY (CMP, CBC with differential, A1c, Lipid panel, TSH, VitD, VitB12, urine microalbumin)- Q6mo JANUARY (BMP )- Q3mo JULY, OCT, JAN, APR, (A1c)*4.30.2023 (urine mircoalbumin creat ratio 14.94 WNL) 09/07/2023 Primary osteoarthritis invol ving multiple joints Currently taking: Duloxetine 120 mg daily. Lidocaine patch. PRN Diclofenac gel and Tyelnol. Use to take narcotics but this was tapered off. Goal to stay off narcotics. Pain does not inhibit her abilities to walk or be active. Continue with current plan of care.?? Hypertension Currently taking:??amlodipine 10 mg QD. Hydrochlorothiazide 25 mg QD. potassium chloride 40 mEq QD. Torsemide 20 mg QD. Along with Aspirin 81 mg QD and atorvastatin 10 mg HS.?? Blood pressure today is 130/88.?? Denies side effects of medication.?? I will order labs today.?? Type 2 diabetes mellitus with other circulatory complication, with long-term current use of insulin Currently taking Januvia 100 mg QD. Staff share that she was taken off her insulin due to low blood sugars and Rena refusing to eat or drink anything during those episodes. I will order labs today to assess control.?? Hypokalemia Does take Potassium Chloride 40 mEq daily. I will order labs today to reassess this.?? Disorientation, unspecified Rena has been seen by another provider for some time now, but what I gather from staff is that Rena has good and bad days for her orientation level. Today she was oriented and able to answer all my questions. Staff share that typically she is not.?? Insomnia Currently taking Melatonin 3 mg HS. Will continue with this plan of care.?? Chronic pain Chronic back pain. Goal is to remain off opioids. Continue with lidocaine patch and diclofenc gel, along with OTC Tylenol PRN.?? Smoking She use to smoke in her room but staff had to tell her she could no longer smoke due to safety concerns of her forgetting her cigarette, leaving it burning, ashes not in an brandie tray.??. 06/14/2023
--- OUTSIDE RECORDS SUMMARY | 2023-09-07 20:11 | XMS_ITS | CCD ---
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 Artist Name Role Phone Eleno Justo KELLEY Primary Care Provider Nirmala vailable Unavailable Chronic Care Management Unavaila ble Summary Purpose DataExchange Insurance Providers Payer name Policy type / Coverage type Covered green party ID Effective Begin Date Effective End Date [place] Blue Cross/Blue Shield [id number] [place] [id number] Unknown Family history Mother Diagnosis Age At Onset Glaucoma Unknown Brother Diagnosis Age At Onset Visual disturbance/blindness Unknown Glaucoma Unknown Father Diagnosis Age At Onset Stomach cancer Unknown Social History Social History Element Codes Description Effec tive Dates Tobacco history SNOMED CT: 22749598 Current every day smoker 07/01/[address]: 355749135 No Alcohol Consum ption 07/01/2022 Allergies, Adverse Reactions, Alerts Substance Reaction Codes Entered Date Inactivated Date Status Bee Sting Unknown 03/03/2022 No Inactive Date Ac tive NSAIDS Unknown 03/03/2022 No Inactive Date Ac tive PENICILLINS Unknown 03/03/2022 No Inactive Date Active losartan RxNorm: 938509 03/03/2022 No Inactive Da te Active aspirin Unknown 03/03/2022 No Inactive Date Ac tive tramadol RxNorm: 55359 03/03/2022 No Inactive Marek e Active Other: [...] Headache ICD-10: R51.9 ICD-9: 784.0 06/14/2023 Resolved FDC (current) use of insulin ICD-10: Z79.4 06/13 [...] Start Date Stop Date Status Fill Instructions Januvia 100 mg tablet RxNorm: 301424 Take 1 Tablet(s) Oral QD 07/18/19 24 025 Active 07/18/2023 PROACTIVE REFILL REQUEST FOR NEXT CYCLE PLEASE THANK YOU RX has/will before cycle date acetaminophen 500 mg tablet RxNorm: 948200 Take 2 Tablet(s) Oral TID 07/18/19 24 025 Active 07/18/2023 PROACTIVE REFILL REQUEST FOR NEXT CYCLE PLEASE THANK YOU RX has/will before cycle date magnesium oxide 400 mg (241.3 mg magnesium) tablet RxNorm: 365073 Take 1 Tablet(s) Oral BID 07/18/19 24 025 Active 07/18/2023 PROACTIVE REFILL REQUEST FOR NEXT CYCLE PLEASE THANK YOU RX has/will before cycle date risperidone 2 mg tablet RxNorm: 047119 Take 1 Tablet(s) Oral BID 07/18/19 24 025 Active 07/18/2023 PROACTIVE REFILL REQUEST FOR NEXT CYCLE PLEASE THANK YOU RX has/will before cycle date pantoprazole 40 mg tablet,delayed release RxNorm: 330636 Take 1 Tablet(s) Oral QAM every morning BEFORE BREAKFAST 07/18/19 24 025 Active 07/18/2023 PROACTIVE REFILL REQUEST FOR NEXT CYCLE PLEASE THANK YOU RX has/will before cycle date duloxetine 60 mg capsule,delayed release RxNorm: 106599 Take 2 Capsule(s) Oral QD 07/18/19 24 025 Active 07/18/2023 PROACTIVE REFILL REQUEST FOR NEXT CYCLE PLEASE THANK YOU RX has/will before cycle date latanoprost 0.005 % eye drops RxNorm: 328712 Take 1 Drop(s) Both eyes QHS every night at bedtime 07/13/19 No Stop Date Active FreeStyle Kristie 14 Day Sensor kit RxNorm: Use 1 Test Strip BIW biweekly 06/14/19 24 024 Active FreeStyle Kristie 14 Day Sensor kit RxNorm: Use 1 Test Strip BIW biweekly 06/14/19 24 024 Inactive Protective Underwear Ex-Large RxNorm: USE DIRECTED 06/01/19 24 024 Active Banophen 25 mg capsule RxNorm: 4853309 Take 1-2 Capsule(s) Oral Q8H every 8 hours as needed for Allergies 05/24/19 24 No Stop Date Active Banophen 25 mg capsule RxNorm: 1204514 Take 1-2 Capsule(s) Oral Q8H every 8 hours as needed 05/24/19 24 024 Inactive torsemide 20 mg tablet RxNorm: 787179 Take 1 Tablet(s) Oral QAM every morning 05/22/19 24 025 Active 05/22/2023 PROACTIVE REFILL REQUEST FOR NEXT CYCLE PLEASE THANK YOU RX has/will before cycle date famotidine 20 mg tablet RxNorm: 477648 Take 1 Tablet(s) Oral QHS every night at bedtime 05/22/19 24 025 Active 05/22/2023 PROACTIVE REFILL REQUEST FOR NEXT CYCLE PLEASE THANK YOU Aspercreme (lidocaine) 4 % topical patch RxNorm: 8215807 Apply 1 Patch Topical QD (on for 12 hours, off for 12 hours) 05/15/19 24 025 Active dorzolamide 22.3 mg-timolol 6.8 mg/mL eye drops RxNorm: 7828907 Apply 1 Drop(s) Both eyes BID 04/27/19 24 025 Active Humalog KwikPen (U-100) Insulin 100 unit/mL subcutaneous RxNorm: 5353478 Inject 0-7 Unit(s) Subcutaneous Inject per sliding scale BID before lunch and dinner 04/25/19 24 024 Inactive melatonin 3 mg tablet RxNorm: 636712 Take 1 Tablet(s) Oral QHS every night at bedtime 02/29/20 23 024 Active 02/28/2023 PROACTIVE REFILL REQUEST FOR NEXT CYCLE PLEASE THANK YOU potassium chloride ER 20 mEq tablet,extended release(part/cryst) RxNorm: 4624240 Take 2 Tablet(s) Oral QD 02/29/20 23 024 Active 02/28/2023 PROACTIVE REFILL REQUEST FOR NEXT CYCLE PLEASE THANK YOU atorvastatin 10 mg tablet RxNorm: 771351 Take 1 Tablet(s) Oral QD 01/06/20 23 024 Active 01/05/2023 PROACTIVE REFILL REQUEST FOR NEXT CYCLE PLEASE THANK YOU fluticasone propionate 50 mcg/actuation nasal spray,suspension RxNorm: 5991780 [place] 2 [place] Nasal QD - Daily both nostrils 12/20/19 No Stop Date Active nicotine 21 mg/24 hr daily transdermal patch RxNorm: 703771 Apply 1 Transdermal QD 12/02/19 23 023 Inactive nicotine 21 mg/24 hr daily transdermal patch RxNorm: 808434 Apply 1 Transdermal QD 11/29/19 023 Inactive loratadine 10 mg tablet RxNorm: 634291 Take 1 Tablet(s) Oral QD as needed 11/23/19 23 024 Inactive loratadine 10 mg tablet RxNorm: 098173 Take 1 Tablet(s) Oral QD as needed 11/23/19 023 Inactive nicotine 21 mg/24 hr daily transdermal patch RxNorm: 635629 Apply 1 Transdermal QD 11/16/19 023 Inactive aspirin 81 mg tablet,delayed release RxNorm: 667321 Take 1 Tablet(s) Oral QD 11/15/19 024 Active 2ND REQUEST 11/11/2022 NEED KIM PLEASE THANK YOU nicotine 21 mg/24 hr daily transdermal patch RxNorm: 708149 Apply 1 Transdermal QD 11/02/19 023 Inactive amlodipine 10 mg tablet RxNorm: 357968 Take 1 Tablet(s) Oral QD 10/20/19 024 Active nicotine 21 mg/24 hr daily transdermal patch RxNorm: 745257 APPLY 1 PATCH ONCE DAILY 10/18/19 023 Inactive Pen Needle 30 gauge x 5/16 RxNorm: Use 1 Unit(s) TID Use as directed to administer insulin up to 3x daily 10/12/19 024 Inactive cholecalciferol (vitamin D3) 25 mcg (1,000 unit) tablet RxNorm: 400861 TAKE 1 TABLET BY MOUTH DAILY (1,000 UNITS) 09/14/19 024 Active 09/13/2022 PROACTIVE REFILL REQUEST FOR NEXT CYCLE PLEASE THANK YOU Systane Ultra 0.4 %-0.3 % eye drops RxNorm: 296622 Instill 1 Drop(s) Both eyes QID 09/06/19 No Stop Date Active diclofenac 1 % topical gel RxNorm: 274932 Apply 4 Gram(s) Topical QID (bilateral knees or area of pain per patient's request) 09/01/19 No Stop Date Active acetaminophen 325 mg tablet RxNorm: 081752 Take 1 Tablet(s) Oral Q4H every four hours as needed 09/01/19 No Stop Date Active Lantus Solostar U-100 Insulin 100 unit/mL (3 mL) subcutaneous pen RxNorm: 106768 Inject 20 Unit(s) Subcutaneous QHS every night at bedtime 09/01/19 23 024 Inactive Pen Needle 30 gauge x 5/16 RxNorm: Use as directed to administer insulin up to 3x daily 09/01/19 023 Inactive Humalog KwikPen (U-100) Insulin 100 unit/mL subcutaneous RxNorm: 7848456 Unit(s) Subcutaneous Inject per sliding scale BID before lunch and dinner 09/01/19 024 Inactive Aspercreme (lidocaine) 4 % topical patch RxNorm: 8426084 Apply 1 Patch Topical QD (on for 12 hours, off for 12 hours) 09/01/19 024 Inactive melatonin 3 mg tablet RxNorm: 368688 Take 2 Tablet(s) Oral QHS every night at bedtime as needed (may repeat once) 09/01/19 023 Inactive hydrochlorothiazide 25 mg tablet RxNorm: 417556 Take 1 Tablet(s) Oral QD 07/23/19 23 024 Inactive 2nd REQUEST FOR REFILLS 07-22-2022 NEED KIM PLEASE = THANK YOU Januvia 100 mg tablet RxNorm: 639035 Take 1 Tablet(s) Oral QD 07/23/19 23 023 Inactive 2nd REQUEST FOR REFILLS 07-22-2022 NEED KIM PLEASE = THANK YOU potassium chloride ER 10 mEq capsule,extended release RxNorm: 889706 TAKE 1 CAPSULE BY MOUTH TWICE DAILY WITH MEAL(S) 07/23/19 23 023 Inactive 2nd REQUEST FOR REFILLS 07-22-2022 NEED KIM PLEASE = THANK YOU duloxetine 60 mg capsule,delayed release RxNorm: 377983 Take 2 Capsule(s) Oral QD 07/23/19 23 023 Inactive 2nd REQUEST FOR REFILLS 07-22-2022 NEED KIM PLEASE = THANK YOU pantoprazole 40 mg tablet,delayed release RxNorm: 069830 TAKE 1 TABLET BY MOUTH EVERY MORNING BEFORE BREAKFAST 07/23/19 23 023 Inactive 2nd REQUEST FOR REFILLS 07-22-2022 NEED KIM PLEASE = THANK YOU magnesium oxide 400 mg (241.3 mg magnesium) tablet RxNorm: 639033 Take 1 Tablet(s) Oral BID 07/23/19 23 023 Inactive 2nd REQUEST FOR REFILLS 07-22-2022 NEED KIM PLEASE = THANK YOU acetaminophen 500 mg tablet RxNorm: 420266 Take 2 Tablet(s) Oral TID 07/23/19 23 023 Inactive 2nd REQUEST FOR REFILLS 07-22-2022 NEED KIM PLEASE = THANK YOU risperidone 2 mg tablet RxNorm: 048189 Take 1 Tablet(s) Oral BID 07/23/19 23 023 Inactive 2nd REQUEST FOR REFILLS 07-22-2022 NEED KIM PLEASE = THANK YOU buprenorphine HCl 2 mg sublingual tablet RxNorm: 917440 Take 1 Tablet(s) Sublingual TID 07/19/19 23 023 Inactive buprenorphine HCl 2 mg sublingual tablet RxNorm: 527292 Take 1 Tablet(s) Sublingual TID 07/19/19 23 023 Inactive oxycodone 5 mg tablet RxNorm: 8842789 Take 1 Tablet(s) Oral BID x7 days then decrease to 1 tab once daily x 7 days then d/c 07/09/19 23 023 Inactive latanoprost 0.005 % eye drops RxNorm: 900957 Take 1 Drop(s) Both eyes QHS every night at bedtime 07/07/19 23 023 Inactive buprenorphine 5 mcg/hour weekly transdermal patch RxNorm: 393230 Apply 1 Transdermal once every 7 days 07/06/19 23 023 Inactive zolpidem 5 mg tablet RxNorm: 558509 Take 1 Tablet(s) Oral QHS every night at bedtime 07/06/19 23 023 Inactive buprenorphine 5 mcg/hour weekly transdermal patch RxNorm: 585930 Apply 1 Transdermal once every 7 days 07/06/19 23 023 Inactive start after stops oxycodone. belbuca film not covered acetaminophen 500 mg tablet RxNorm: 366358 Take 2 Tablet(s) Oral TID 07/02/19 23 023 Inactive famotidine 20 mg tablet RxNorm: 919037 Give 1 Tablet(s) Oral QHS every night at bedtime 07/02/19 024 Inactive amlodipine 5 mg tablet RxNorm: 362655 Take 1 Tablet(s) Oral QD 07/02/19 023 Inactive nicotine 21 mg/24 hr daily transdermal patch RxNorm: 058841 Apply 1 Patch Transdermal QD Remove old patch prior to placing the new one 07/02/19 023 Inactive gabapentin 600 mg tablet RxNorm: 066597 Take 1 Tablet(s) Oral TID 07/02/19 023 Inactive risperidone 2 mg tablet RxNorm: 619478 Take 1 Tablet(s) Oral BID 07/02/19 023 Inactive pantoprazole 40 mg intravenous solution RxNorm: 840827 Take 1 Tablet(s) Intravenous QAM every morning 07/02/19 023 Inactive torsemide 20 mg tablet RxNorm: 274500 Take 1 Tablet(s) Oral QAM every morning 07/02/19 024 Inactive Januvia 100 mg tablet RxNorm: 471421 Take 1 Tablet(s) Oral QD 07/02/19 023 Inactive atorvastatin 10 mg tablet RxNorm: 281360 Take 1 Tablet(s) Oral QHS every night at bedtime 07/02/19 023 Inactive potassium chloride ER 10 mEq tablet,extended release RxNorm: 176761 Take 1 Tablet(s) Oral BID 07/02/19 023 Inactive [place] 75 mcg buccal film RxNorm: 8933592 Take 1/2 film (37.5mcg) (cut diagonally) BID (start AFTER stopping oxycodone) 07/02/19 023 Inactive start belbuca in 7 days AFTER patient stops oxycodone aspirin 81 mg tablet,delayed release RxNorm: 670624 Take 1 Tablet(s) Oral QD 07/02/19 023 Inactive dorzolamide 22.3 mg-timolol 6.8 mg/mL eye drops RxNorm: 2406167 Apply 1 Drop(s) Both eyes BID 07/02/19 024 Inactive latanoprost 0.005 % eye drops RxNorm: 684698 Take 1 Drop(s) Both eyes QHS every night at bedtime 07/02/19 23 023 Inactive Systane Ultra 0.4 %-0.3 % eye drops RxNorm: 978823 Apply 1 Drop(s) Both eyes QID 07/02/19 23 023 Inactive Lantus Solostar U-100 Insulin 100 unit/mL (3 mL) subcutaneous pen RxNorm: 764566 Take 40 Unit(s) Subcutaneous QHS every night at bedtime 07/02/19 23 023 Inactive oxybutynin chloride 5 mg tablet RxNorm: 914018 Administer 1 Tablet(s) Oral QHS every night at bedtime 07/02/19 23 023 Inactive Miralax 17 gram oral powder packet RxNorm: 591955 Take 1 Packet Oral QD 07/02/19 023 Inactive hydrochlorothiazide 25 mg tablet RxNorm: 959064 Take 1 Tablet(s) Oral QD 07/02/19 023 Inactive oxycodone 5 mg tablet RxNorm: 8515519 Take 1 Tablet(s) Oral TID then discontinue and start belbuca (d/c 10mg TID) 07/02/19 23 023 Inactive stop after 7 days duloxetine 60 mg capsule,delayed release RxNorm: 703533 Take 2 Capsule(s) Oral QD 07/02/19 023 Inactive Narcan 4 mg/actuation nasal spray RxNorm: 5817090 Give 1 [place] Nasal UD as directed 1 spray contents of ONE device into nostril, call 911. May repeat once with 2nd device 07/02/19 23 023 Inactive fluticasone propionate 50 mcg/actuation nasal spray,suspension RxNorm: 0693498 [place] 2 [place] Nasal QD - Daily both nostrils 07/02/19 23 023 Inactive magnesium oxide 400 mg (241.3 mg magnesium) tablet RxNorm: 812595 Give 1 Tablet(s) Oral BID 07/02/19 23 023 Inactive cholecalciferol (vitamin D3) 25 mcg (1,000 unit) tablet RxNorm: 310709 Take 1 Tablet(s) Oral QAM every morning 07/02/19 23 023 Inactive oxycodone 5 mg tablet RxNorm: 2992457 Take 2 Tablet(s) Oral TID PRN 06/04/19 23 023 Inactive azithromycin 250 mg tablet RxNorm: 058572 Take Tablet(s) Oral QD 2 Tablets PO QD x 1 Day - Then 1 Tablet PO QD x 4 Days 05/10/19 23 023 Inactive oxycodone 5 mg tablet RxNorm: 2602272 Take 2 Tablet(s) Oral TID /difficulty breathing 05/03/19 023 Inactive oxycodone 5 mg tablet RxNorm: 7217010 Take 2 Tablet(s) Oral TID /difficulty breathing 03/03/20 22 022 Inactive azithromycin 250 mg tablet RxNorm: 263995 Take Tablet(s) Oral QD 2 Tablets PO QD x 1 Day - Then 1 Tablet PO QD x 4 Days 05/10/19 23 023 Inactive zolpidem 5 mg tablet RxNorm: 359932 Take 1 Tablet(s) Oral QHS every night at bedtime as needed 03/28/19 023 Inactive Medication Administered No Medication Administered data Procedures Procedure Codes Date BEHAV CHNG SMOKING 3-[address]: 2 51536122 CPT-4: 04732 06/29/2022 Reason For Visit No Reason For Visit data Plan of Care Planned Activity Notes Codes Status Date Referral: [facility] WPtel: [id number] [place], [place] [id number] Referral Records Received 07/18/2022 Instructions Comment Date Rena is a resident a [facility].?? Previously was seen by doctor in [place].?? First [facility] visit 03/10.?? Arthritis/pain complaints and anxiety are her biggest concerns. Johnnie (in 2020). 2 sons - son Korey visits (From[facility]).??AWV:Colonoscopy due 2024.??Labs:??- Yearly MAY (CMP, CBC with differential, A1c, Lipid panel, TSH, VitD, VitB12, urine microalbumin)- Q6mo JANUARY (BMP )- Q3mo JULY, OCT, JAN, APR, (A1c)*4.30.2023 (urine mircoalbumin creat ratio 14.94 WNL) 09/07/2023
--- OUTSIDE RECORDS SUMMARY | 2023-09-07 20:11 | XMS_ITS | CCD ---
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 Care Assurance Engineer Name Role Phone Eleno Justo KELLEY Primary Care Provider Nirmala vailable Unavailable Chronic Care Management Unavaila ble Summary Purpose DataExchange Insurance Providers Payer name Policy type / Coverage type Covered libertarian ID Effective Begin Date Effective End Date [place] Blue Cross/Blue Shield [id number] Unknown [place] [id number] Unknown Family history Mother Diagnosis Age At Onset Glaucoma Unknown Brother Diagnosis Age At Onset Visual disturbance/blindness Unknown Glaucoma Unknown Father Diagnosis Age At Onset Stomach cancer Unknown Social History Social History Element Codes Description Effec tive Dates Tobacco history SNOMED CT: 43186007 Current every day smoker 07/01/[address]: 103551833 No Alcohol Consum ption 07/01/2022 Allergies, Adverse Reactions, Alerts Substance Reaction Codes Entered Date Inactivated Date Status Bee Sting Unknown 03/03/2022 No Inactive Date Ac tive NSAIDS Unknown 03/03/2022 No Inactive Date Ac tive PENICILLINS Unknown 03/03/2022 No Inactive Date Active losartan RxNorm: 565612 03/03/2022 No Inactive Da te Active aspirin Unknown 03/03/2022 No Inactive Date Ac tive tramadol RxNorm: 72105 03/03/2022 No Inactive Marek e Active Other: [...] Headache ICD-10: R51.9 ICD-9: 784.0 06/14/2023 Resolved prison (current) use of insulin ICD-10: Z79.4 06/13 [...] Fill Instructions Januvia 100 mg tablet RxNorm: 419594 Take 1 Tablet(s) Oral QD 07/18/19 24 025 Active 07/18/2023 PROACTIVE REFILL REQUEST FOR NEXT CYCLE PLEASE THANK YOU RX has/will before cycle date acetaminophen 500 mg tablet RxNorm: 793750 Take 2 Tablet(s) Oral TID 07/18/19 24 025 Active 07/18/2023 PROACTIVE REFILL REQUEST FOR NEXT CYCLE PLEASE THANK YOU RX has/will before cycle date magnesium oxide 400 mg (241.3 mg magnesium) tablet RxNorm: 727184 Take 1 Tablet(s) Oral BID 07/18/19 24 025 Active 07/18/2023 PROACTIVE REFILL REQUEST FOR NEXT CYCLE PLEASE THANK YOU RX has/will before cycle date risperidone 2 mg tablet RxNorm: 136999 Take 1 Tablet(s) Oral BID 07/18/19 24 025 Active 07/18/2023 PROACTIVE REFILL REQUEST FOR NEXT CYCLE PLEASE THANK YOU RX has/will before cycle date pantoprazole 40 mg tablet,delayed release RxNorm: 253926 Take 1 Tablet(s) Oral QAM every morning BEFORE BREAKFAST 07/18/19 24 025 Active 07/18/2023 PROACTIVE REFILL REQUEST FOR NEXT CYCLE PLEASE THANK YOU RX has/will before cycle date duloxetine 60 mg capsule,delayed release RxNorm: 783853 Take 2 Capsule(s) Oral QD 07/18/19 24 025 Active 07/18/2023 PROACTIVE REFILL REQUEST FOR NEXT CYCLE PLEASE THANK YOU RX has/will before cycle date latanoprost 0.005 % eye drops RxNorm: 041411 Take 1 Drop(s) Both eyes QHS every [...] 024 Active Banophen 25 mg capsule RxNorm: 9755205 Take 1-2 Capsule(s) Oral Q8H every 8 hours as needed for Allergies 05/24/19 24 No Stop Date Active Banophen 25 mg capsule RxNorm: 3118971 Take 1-2 Capsule(s) Oral Q8H every 8 hours as needed 05/24/19 24 024 Inactive torsemide 20 mg tablet RxNorm: 906628 Take 1 Tablet(s) Oral QAM every morning 05/22/19 24 025 Active 05/22/2023 PROACTIVE REFILL REQUEST FOR NEXT CYCLE PLEASE THANK YOU RX has/will before cycle date famotidine 20 mg tablet RxNorm: 412216 Take 1 Tablet(s) Oral QHS every night at bedtime 05/22/19 24 025 Active 05/22/2023 PROACTIVE REFILL REQUEST FOR NEXT CYCLE PLEASE THANK YOU Aspercreme (lidocaine) 4 % topical patch RxNorm: 3695463 Apply 1 Patch Topical QD (on for 12 hours, off for 12 hours) 05/15/19 24 025 Active dorzolamide 22.3 mg-timolol 6.8 mg/mL eye drops RxNorm: 7525793 Apply 1 Drop(s) Both eyes BID 04/27/19 24 025 Active Humalog KwikPen (U-100) Insulin 100 unit/mL subcutaneous RxNorm: 6449374 Inject 0-7 Unit(s) Subcutaneous Inject per sliding scale BID before lunch and dinner 04/25/19 24 024 Inactive melatonin 3 mg tablet RxNorm: 848869 Take 1 Tablet(s) Oral QHS every night at bedtime 02/29/20 23 024 Active 02/28/2023 PROACTIVE REFILL REQUEST FOR NEXT CYCLE PLEASE THANK YOU potassium chloride ER 20 mEq tablet,extended release(part/cryst) RxNorm: 7761566 Take 2 Tablet(s) Oral QD 02/29/20 23 024 Active 02/28/2023 PROACTIVE REFILL REQUEST FOR NEXT CYCLE PLEASE THANK YOU atorvastatin 10 mg tablet RxNorm: 002878 Take 1 Tablet(s) Oral QD 01/06/20 23 024 Active 01/05/2023 PROACTIVE REFILL REQUEST FOR NEXT CYCLE PLEASE THANK YOU fluticasone propionate 50 mcg/actuation nasal spray,suspension RxNorm: 4690196 [place] 2 [place] Nasal QD - Daily both nostrils 12/20/19 No Stop Date Active nicotine 21 mg/24 hr daily transdermal patch RxNorm: 201819 Apply 1 Transdermal QD 12/02/19 23 023 Inactive nicotine 21 mg/24 hr daily transdermal patch RxNorm: 894908 Apply 1 Transdermal QD 11/29/19 023 Inactive loratadine 10 mg tablet RxNorm: 077821 Take 1 Tablet(s) Oral QD as needed 11/23/19 23 024 Inactive loratadine 10 mg tablet RxNorm: 486457 Take 1 Tablet(s) Oral QD as needed 11/23/19 023 Inactive nicotine 21 mg/24 hr daily transdermal patch RxNorm: 002453 Apply 1 Transdermal QD 11/16/19 023 Inactive aspirin 81 mg tablet,delayed release RxNorm: 220103 Take 1 Tablet(s) Oral QD 11/15/19 024 Active 2ND REQUEST 11/11/2022 NEED KIM PLEASE THANK YOU nicotine 21 mg/24 hr daily transdermal patch RxNorm: 994063 Apply 1 Transdermal QD 11/02/19 023 Inactive amlodipine 10 mg tablet RxNorm: 137874 Take 1 Tablet(s) Oral QD 10/20/19 024 Active nicotine 21 mg/24 hr daily transdermal patch RxNorm: 485465 APPLY 1 PATCH ONCE DAILY 10/18/19 023 Inactive Pen Needle 30 gauge x 5/16 RxNorm: Use 1 Unit(s) TID Use as directed to administer insulin up to 3x daily 10/12/19 024 Inactive cholecalciferol (vitamin D3) 25 mcg (1,000 unit) tablet RxNorm: 875965 TAKE 1 TABLET BY MOUTH DAILY (1,000 UNITS) 09/14/19 024 Active 09/13/2022 PROACTIVE REFILL REQUEST FOR NEXT CYCLE PLEASE THANK YOU Systane Ultra 0.4 %-0.3 % eye drops RxNorm: 413178 Instill 1 Drop(s) Both eyes QID 09/06/19 No Stop Date Active diclofenac 1 % topical gel RxNorm: 285406 Apply 4 Gram(s) Topical QID (bilateral knees or area of pain per patient's request) 09/01/19 No Stop Date Active acetaminophen 325 mg tablet RxNorm: 806079 Take 1 Tablet(s) Oral Q4H every four hours as needed 09/01/19 No Stop Date Active Lantus Solostar U-100 Insulin 100 unit/mL (3 mL) subcutaneous pen RxNorm: 398879 Inject 20 Unit(s) Subcutaneous QHS every night at bedtime 09/01/19 23 024 Inactive Pen Needle 30 gauge x 5/16 RxNorm: Use as directed to administer insulin up to 3x daily 09/01/19 023 Inactive Humalog KwikPen (U-100) Insulin 100 unit/mL subcutaneous RxNorm: 9538239 Unit(s) Subcutaneous Inject per sliding scale BID before lunch and dinner 09/01/19 024 Inactive Aspercreme (lidocaine) 4 % topical patch RxNorm: 3772820 Apply 1 Patch Topical QD (on for 12 hours, off for 12 hours) 09/01/19 024 Inactive melatonin 3 mg tablet RxNorm: 884684 Take 2 Tablet(s) Oral QHS every night at bedtime as needed (may repeat once) 09/01/19 023 Inactive hydrochlorothiazide 25 mg tablet RxNorm: 157930 Take 1 Tablet(s) Oral QD 07/23/19 23 024 Inactive 2nd REQUEST FOR REFILLS 07-22-2022 NEED KIM PLEASE = THANK YOU Januvia 100 mg tablet RxNorm: 463260 Take 1 Tablet(s) Oral QD 07/23/19 23 023 Inactive 2nd REQUEST FOR REFILLS 07-22-2022 NEED KIM PLEASE = THANK YOU potassium chloride ER 10 mEq capsule,extended release RxNorm: 337809 TAKE 1 CAPSULE BY MOUTH TWICE DAILY WITH MEAL(S) 07/23/19 23 023 Inactive 2nd REQUEST FOR REFILLS 07-22-2022 NEED KIM PLEASE = THANK YOU duloxetine 60 mg capsule,delayed release RxNorm: 344975 Take 2 Capsule(s) Oral QD 07/23/19 23 023 Inactive 2nd REQUEST FOR REFILLS 07-22-2022 NEED KIM PLEASE = THANK YOU pantoprazole 40 mg tablet,delayed release RxNorm: 100279 TAKE 1 TABLET BY MOUTH EVERY MORNING BEFORE BREAKFAST 07/23/19 23 023 Inactive 2nd REQUEST FOR REFILLS 07-22-2022 NEED KIM PLEASE = THANK YOU magnesium oxide 400 mg (241.3 mg magnesium) tablet RxNorm: 577409 Take 1 Tablet(s) Oral BID 07/23/19 23 023 Inactive 2nd REQUEST FOR REFILLS 07-22-2022 NEED KIM PLEASE = THANK YOU acetaminophen 500 mg tablet RxNorm: 397668 Take 2 Tablet(s) Oral TID 07/23/19 23 023 Inactive 2nd REQUEST FOR REFILLS 07-22-2022 NEED KIM PLEASE = THANK YOU risperidone 2 mg tablet RxNorm: 640396 Take 1 Tablet(s) Oral BID 07/23/19 23 023 Inactive 2nd REQUEST FOR REFILLS 07-22-2022 NEED KIM PLEASE = THANK YOU buprenorphine HCl 2 mg sublingual tablet RxNorm: 982584 Take 1 Tablet(s) Sublingual TID 07/19/19 23 023 Inactive buprenorphine HCl 2 mg sublingual tablet RxNorm: 769546 Take 1 Tablet(s) Sublingual TID 07/19/19 23 023 Inactive oxycodone 5 mg tablet RxNorm: 9472621 Take 1 Tablet(s) Oral BID x7 days then decrease to 1 tab once daily x 7 days then d/c 07/09/19 23 023 Inactive latanoprost 0.005 % eye drops RxNorm: 147611 Take 1 Drop(s) Both eyes QHS every night at bedtime 07/07/19 23 023 Inactive buprenorphine 5 mcg/hour weekly transdermal patch RxNorm: 705401 Apply 1 Transdermal once every 7 days 07/06/19 23 023 Inactive zolpidem 5 mg tablet RxNorm: 335191 Take 1 Tablet(s) Oral QHS every night at bedtime 07/06/19 23 023 Inactive buprenorphine 5 mcg/hour weekly transdermal patch RxNorm: 987024 Apply 1 Transdermal once every 7 days 07/06/19 23 023 Inactive start after stops oxycodone. belbuca film not covered acetaminophen 500 mg tablet RxNorm: 498069 Take 2 Tablet(s) Oral TID 07/02/19 23 023 Inactive famotidine 20 mg tablet RxNorm: 779198 Give 1 Tablet(s) Oral QHS every night at bedtime 07/02/19 024 Inactive amlodipine 5 mg tablet RxNorm: 830383 Take 1 Tablet(s) Oral QD 07/02/19 023 Inactive nicotine 21 mg/24 hr daily transdermal patch RxNorm: 265741 Apply 1 Patch Transdermal QD Remove old patch prior to placing the new one 07/02/19 023 Inactive gabapentin 600 mg tablet RxNorm: 356677 Take 1 Tablet(s) Oral TID 07/02/19 023 Inactive risperidone 2 mg tablet RxNorm: 743824 Take 1 Tablet(s) Oral BID 07/02/19 023 Inactive pantoprazole 40 mg intravenous solution RxNorm: 800699 Take 1 Tablet(s) Intravenous QAM every morning 07/02/19 023 Inactive torsemide 20 mg tablet RxNorm: 962353 Take 1 Tablet(s) Oral QAM every morning 07/02/19 024 Inactive Januvia 100 mg tablet RxNorm: 695879 Take 1 Tablet(s) Oral QD 07/02/19 023 Inactive atorvastatin 10 mg tablet RxNorm: 918422 Take 1 Tablet(s) Oral QHS every night at bedtime 07/02/19 023 Inactive potassium chloride ER 10 mEq tablet,extended release RxNorm: 743900 Take 1 Tablet(s) Oral BID 07/02/19 023 Inactive Belbuca 75 mcg buccal film RxNorm: 7636706 Take 1/2 film (37.5mcg) (cut diagonally) BID (start AFTER stopping oxycodone) 07/02/19 023 Inactive start belbuca in 7 days AFTER patient stops oxycodone aspirin 81 mg tablet,delayed release RxNorm: 270909 Take 1 Tablet(s) Oral QD 07/02/19 023 Inactive dorzolamide 22.3 mg-timolol 6.8 mg/mL eye drops RxNorm: 6704101 Apply 1 Drop(s) Both eyes BID 07/02/19 024 Inactive latanoprost 0.005 % eye drops RxNorm: 375667 Take 1 Drop(s) Both eyes QHS every night at bedtime 07/02/19 23 023 Inactive Systane Ultra 0.4 %-0.3 % eye drops RxNorm: 129493 Apply 1 Drop(s) Both eyes QID 07/02/19 23 023 Inactive Lantus Solostar U-100 Insulin 100 unit/mL (3 mL) subcutaneous pen RxNorm: 588182 Take 40 Unit(s) Subcutaneous QHS every night at bedtime 07/02/19 23 023 Inactive oxybutynin chloride 5 mg tablet RxNorm: 092494 Administer 1 Tablet(s) Oral QHS every night at bedtime 07/02/19 23 023 Inactive Miralax 17 gram oral powder packet RxNorm: 623252 Take 1 Packet Oral QD 07/02/19 023 Inactive hydrochlorothiazide 25 mg tablet RxNorm: 527809 Take 1 Tablet(s) Oral QD 07/02/19 023 Inactive oxycodone 5 mg tablet RxNorm: 6102104 Take 1 Tablet(s) Oral TID then discontinue and start belbuca (d/c 10mg TID) 07/02/19 23 023 Inactive stop after 7 days duloxetine 60 mg capsule,delayed release RxNorm: 869223 Take 2 Capsule(s) Oral QD 07/02/19 023 Inactive Narcan 4 mg/actuation nasal spray RxNorm: 3624541 Give 1 [place] Nasal UD as directed 1 spray contents of ONE device into nostril, call 911. May repeat once with 2nd device 07/02/19 23 023 Inactive fluticasone propionate 50 mcg/actuation nasal spray,suspension RxNorm: 3661217 [place] 2 [place] Nasal QD - Daily both nostrils 07/02/19 23 023 Inactive magnesium oxide 400 mg (241.3 mg magnesium) tablet RxNorm: 894296 Give 1 Tablet(s) Oral BID 07/02/19 23 023 Inactive cholecalciferol (vitamin D3) 25 mcg (1,000 unit) tablet RxNorm: 188660 Take 1 Tablet(s) Oral QAM every morning 07/02/19 23 023 Inactive oxycodone 5 mg tablet RxNorm: 4603865 Take 2 Tablet(s) Oral TID PRN 06/04/19 23 023 Inactive azithromycin 250 mg tablet RxNorm: 123201 Take Tablet(s) Oral QD 2 Tablets PO QD x 1 Day - Then 1 Tablet PO QD x 4 Days 05/10/19 23 023 Inactive oxycodone 5 mg tablet RxNorm: 7951278 Take 2 Tablet(s) Oral TID /difficulty breathing 05/03/19 023 Inactive oxycodone 5 mg tablet RxNorm: 8388992 Take 2 Tablet(s) Oral TID /difficulty breathing 03/03/20 22 022 Inactive azithromycin 250 mg tablet RxNorm: 391001 Take Tablet(s) Oral QD 2 Tablets PO QD x 1 Day - Then 1 Tablet PO QD x 4 Days 05/10/19 23 023 Inactive zolpidem 5 mg tablet RxNorm: 885028 Take 1 Tablet(s) Oral QHS every night at bedtime as needed 03/28/19 023 Inactive Medication Administered No Medication Administered data Procedures Procedure Codes Date BEHAV CHNG SMOKING 3-[address]: 2 42129949 CPT-4: 13395 06/29/2022 Reason For Visit No Reason For Visit data Plan of Care Planned Activity Notes Codes Status Date Referral: [facility] WPtel: [id number] [place], [place] [id number] Referral Records Received 07/18/2022 Instructions Comment Date Rena is a resident a [facility].?? Previously was seen by doctor in [place].?? First [facility] visit 03/10.?? Arthritis/pain complaints and anxiety are her biggest concerns. Johnnie (in 2020). 2 sons - son Korey visits (From[facility]).??AWV:Colonoscopy due 2024.??Labs:??- Yearly MAY (CMP, CBC with differential, A1c, Lipid panel, TSH, VitD, VitB12, urine microalbumin)- Q6mo JANUARY (BMP )- Q3mo JULY, OCT, JAN, APR, (A1c)*4.30.2023 (urine mircoalbumin creat ratio 14.94 WNL) 09/07/2023
--- OUTSIDE RECORDS SUMMARY | 2023-09-07 20:12 | XMS_ITS | CCD ---
Author Name Mariely Hirsch Address [address] [place] [address] Phone Organization [facility] Phone Care Team Providers Care Commercial Project Manager Name Role Phone Eleno KELLEY McKenzie Primary Care Provider Nirmala vailable Unavailable Chronic Care Management Unavaila ble Summary Purpose DataExchange Insurance Providers Payer name Policy type / Coverage type Covered democrat ID Effective Begin Date Effective End Date [place] Blue [place] Medicaid Blue Cross/Blue Shield [id number] Unknown Medicaid [place] Blue Cross/Blue Shield [id number] Unknown Family history Mother Diagnosis Age At Onset Glaucoma Unknown Brother Diagnosis Age At Onset Visual disturbance/blindness Unknown Glaucoma Unknown Father Diagnosis Age At Onset Stomach cancer Unknown Social History Social History Element Codes Description Effec tive Dates Tobacco history SNOMED CT: 21095083 Current every day smoker 07/01/[address]: 243711753 No Alcohol Consum ption 07/01/2022 Allergies, Adverse Reactions, Alerts Substance Reaction Codes Entered Date Inactivated Date Status Bee Sting Unknown 03/03/2022 No Inactive Date Ac tive NSAIDS Unknown 03/03/2022 No Inactive Date Ac tive PENICILLINS Unknown 03/03/2022 No Inactive Date Active losartan RxNorm: 357910 03/03/2022 No Inactive Da te Active aspirin Unknown 03/03/2022 No Inactive Date Ac tive tramadol RxNorm: 84402 03/03/2022 No Inactive Marek e Active Other: Unknown 03/03/2022 No Inactive Date Ac tive VARENICLINE Unknown 03/03/2022 No Inactive Date Active Problems Condition Codes Effective Dates Condition St atus Dysuria ICD-10: R30.0 ICD-9: 788.1 08/03/2023 Active Hypertension ICD-10: I10 ICD-9: 401.9 06/23/2023 Active [...] Headache ICD-10: R51.9 ICD-9: 784.0 06/14/2023 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 ICD-10: Z79.4 06/13 [...] Start Date Stop Date Status Fill Instructions Macrobid 100 mg capsule RxNorm: 502267 Take 1 Capsule(s) Oral BID 07/26/19 24 024 Inactive Macrobid 100 mg capsule RxNorm: 775629 Take 1 Capsule(s) Oral BID 07/26/19 24 024 Inactive nicotine 21 mg/24 hr daily transdermal patch RxNorm: 021937 Apply 1 Transdermal QD 07/19/19 24 024 Active Januvia 100 mg tablet RxNorm: 695842 Take 1 Tablet(s) Oral QD 07/18/19 24 025 Active 07/18/2023 PROACTIVE REFILL REQUEST FOR NEXT CYCLE PLEASE THANK YOU RX has/will before cycle date acetaminophen 500 mg tablet RxNorm: 182377 Take 2 Tablet(s) Oral TID 07/18/19 24 025 Active 07/18/2023 PROACTIVE REFILL REQUEST FOR NEXT CYCLE PLEASE THANK YOU RX has/will before cycle date magnesium oxide 400 mg (241.3 mg magnesium) tablet RxNorm: 364438 Take 1 Tablet(s) Oral BID 07/18/19 24 025 Active 07/18/2023 PROACTIVE REFILL REQUEST FOR NEXT CYCLE PLEASE THANK YOU RX has/will before cycle date risperidone 2 mg tablet RxNorm: 819098 Take 1 Tablet(s) Oral BID 07/18/19 24 025 Active 07/18/2023 PROACTIVE REFILL REQUEST FOR NEXT CYCLE PLEASE THANK YOU RX has/will before cycle date pantoprazole 40 mg tablet,delayed release RxNorm: 701544 Take 1 Tablet(s) Oral QAM every morning BEFORE BREAKFAST 07/18/19 24 025 Active 07/18/2023 PROACTIVE REFILL REQUEST FOR NEXT CYCLE PLEASE THANK YOU RX has/will before cycle date duloxetine 60 mg capsule,delayed release RxNorm: 987157 Take 2 Capsule(s) Oral QD 07/18/19 24 025 Active 07/18/2023 PROACTIVE REFILL REQUEST FOR NEXT CYCLE PLEASE THANK YOU RX has/will before cycle date latanoprost 0.005 % eye drops RxNorm: 122006 Take 1 Drop(s) Both eyes QHS every [...] 024 Active Banophen 25 mg capsule RxNorm: 6402670 Take 1-2 Capsule(s) Oral Q8H every 8 hours as needed for Allergies 05/24/19 24 No Stop Date Active Banophen 25 mg capsule RxNorm: 4756347 Take 1-2 Capsule(s) Oral Q8H every 8 hours as needed 05/24/19 24 024 Inactive torsemide 20 mg tablet RxNorm: 421199 Take 1 Tablet(s) Oral QAM every morning 05/22/19 24 025 Active 05/22/2023 PROACTIVE REFILL REQUEST FOR NEXT CYCLE PLEASE THANK YOU RX has/will before cycle date famotidine 20 mg tablet RxNorm: 798464 Take 1 Tablet(s) Oral QHS every night at bedtime 05/22/19 24 025 Active 05/22/2023 PROACTIVE REFILL REQUEST FOR NEXT CYCLE PLEASE THANK YOU Aspercreme (lidocaine) 4 % topical patch RxNorm: 7695198 Apply 1 Patch Topical QD (on for 12 hours, off for 12 hours) 05/15/19 24 025 Active dorzolamide 22.3 mg-timolol 6.8 mg/mL eye drops RxNorm: 2331550 Apply 1 Drop(s) Both eyes BID 04/27/19 24 025 Active Humalog KwikPen (U-100) Insulin 100 unit/mL subcutaneous RxNorm: 7248418 Inject 0-7 Unit(s) Subcutaneous Inject per sliding scale BID before lunch and dinner 04/25/19 24 024 Inactive melatonin 3 mg tablet RxNorm: 447960 Take 1 Tablet(s) Oral QHS every night at bedtime 02/29/20 23 024 Active 02/28/2023 PROACTIVE REFILL REQUEST FOR NEXT CYCLE PLEASE THANK YOU potassium chloride ER 20 mEq tablet,extended release(part/cryst) RxNorm: 6038653 Take 2 Tablet(s) Oral QD 02/29/20 23 024 Active 02/28/2023 PROACTIVE REFILL REQUEST FOR NEXT CYCLE PLEASE THANK YOU atorvastatin 10 mg tablet RxNorm: 268852 Take 1 Tablet(s) Oral QD 01/06/20 23 024 Active 01/05/2023 PROACTIVE REFILL REQUEST FOR NEXT CYCLE PLEASE THANK YOU fluticasone propionate 50 mcg/actuation nasal spray,suspension RxNorm: 1803896 [place] 2 [place] Nasal QD - Daily both nostrils 12/20/19 No Stop Date Active nicotine 21 mg/24 hr daily transdermal patch RxNorm: Apply 1 Transdermal QD 12/02/19 23 023 Inactive nicotine 21 mg/24 hr daily transdermal patch RxNorm: Apply 1 Transdermal QD 11/29/19 23 023 Inactive loratadine 10 mg tablet RxNorm: 939181 Take 1 Tablet(s) Oral QD as needed 11/23/19 23 024 Inactive loratadine 10 mg tablet RxNorm: 453899 Take 1 Tablet(s) Oral QD as needed 11/23/19 23 023 Inactive nicotine 21 mg/24 hr daily transdermal patch RxNorm: Apply 1 Transdermal QD 11/16/19 23 023 Inactive aspirin 81 mg tablet,delayed release RxNorm: 920700 Take 1 Tablet(s) Oral QD 11/15/19 23 024 Active 2ND REQUEST 11/11/2022 NEED KIM PLEASE THANK YOU nicotine 21 mg/24 hr daily transdermal patch RxNorm: Apply 1 Transdermal QD 11/02/19 23 023 Inactive amlodipine 10 mg tablet RxNorm: 533234 Take 1 Tablet(s) Oral QD 10/20/19 23 024 Active nicotine 21 mg/24 hr daily transdermal patch RxNorm: APPLY 1 PATCH ONCE DAILY 10/18/19 23 023 Inactive Pen Needle 30 gauge x 5/16 RxNorm: Use 1 Unit(s) TID Use as directed to administer insulin up to 3x daily 10/12/19 23 024 Inactive cholecalciferol (vitamin D3) 25 mcg (1,000 unit) tablet RxNorm: 862509 TAKE 1 TABLET BY MOUTH DAILY (1,000 UNITS) 09/14/19 Active 09/13/2022 PROACTIVE REFILL REQUEST FOR NEXT CYCLE PLEASE THANK YOU Systane Ultra 0.4 %-0.3 % eye drops RxNorm: 052377 Instill 1 Drop(s) Both eyes QID 09/06/19 No Stop Date Active diclofenac 1 % topical gel RxNorm: 768246 Apply 4 Gram(s) Topical QID (bilateral knees or area of pain per patient's request) 09/01/19 No Stop Date Active acetaminophen 325 mg tablet RxNorm: 405013 Take 1 Tablet(s) Oral Q4H every four hours as needed 09/01/19 No Stop Date Active Lantus Solostar U-100 Insulin 100 unit/mL (3 mL) subcutaneous pen RxNorm: 362225 Inject 20 Unit(s) Subcutaneous QHS every night at bedtime 09/01/19 024 Inactive Pen Needle 30 gauge x 5/16 RxNorm: Use as directed to administer insulin up to 3x daily 09/01/19 23 023 Inactive Humalog KwikPen (U-100) Insulin 100 unit/mL subcutaneous RxNorm: 6948091 Unit(s) Subcutaneous Inject per sliding scale BID before lunch and dinner 09/01/19 024 Inactive Aspercreme (lidocaine) 4 % topical patch RxNorm: 4394730 Apply 1 Patch Topical QD (on for 12 hours, off for 12 hours) 09/01/19 024 Inactive melatonin 3 mg tablet RxNorm: 196412 Take 2 Tablet(s) Oral QHS every night at bedtime as needed (may repeat once) 09/01/19 023 Inactive hydrochlorothiazide 25 mg tablet RxNorm: 504846 Take 1 Tablet(s) Oral QD 07/23/19 23 024 Inactive 2nd REQUEST FOR REFILLS 07-22-2022 NEED KIM PLEASE = THANK YOU Januvia 100 mg tablet RxNorm: 919410 Take 1 Tablet(s) Oral QD 07/23/19 23 023 Inactive 2nd REQUEST FOR REFILLS 07-22-2022 NEED KIM PLEASE = THANK YOU potassium chloride ER 10 mEq capsule,extended release RxNorm: 747463 TAKE 1 CAPSULE BY MOUTH TWICE DAILY WITH MEAL(S) 07/23/19 23 023 Inactive 2nd REQUEST FOR REFILLS 07-22-2022 NEED KIM PLEASE = THANK YOU duloxetine 60 mg capsule,delayed release RxNorm: 335794 Take 2 Capsule(s) Oral QD 07/23/19 23 023 Inactive 2nd REQUEST FOR REFILLS 07-22-2022 NEED KIM PLEASE = THANK YOU pantoprazole 40 mg tablet,delayed release RxNorm: 668179 TAKE 1 TABLET BY MOUTH EVERY MORNING BEFORE BREAKFAST 07/23/19 23 023 Inactive 2nd REQUEST FOR REFILLS 07-22-2022 NEED KIM PLEASE = THANK YOU magnesium oxide 400 mg (241.3 mg magnesium) tablet RxNorm: 063774 Take 1 Tablet(s) Oral BID 07/23/19 23 023 Inactive 2nd REQUEST FOR REFILLS 07-22-2022 NEED KIM PLEASE = THANK YOU acetaminophen 500 mg tablet RxNorm: 647440 Take 2 Tablet(s) Oral TID 07/23/19 23 023 Inactive 2nd REQUEST FOR REFILLS 07-22-2022 NEED KIM PLEASE = THANK YOU risperidone 2 mg tablet RxNorm: 915394 Take 1 Tablet(s) Oral BID 07/23/19 23 023 Inactive 2nd REQUEST FOR REFILLS 07-22-2022 NEED KIM PLEASE = THANK YOU buprenorphine HCl 2 mg sublingual tablet RxNorm: 005597 Take 1 Tablet(s) Sublingual TID 07/19/19 23 023 Inactive buprenorphine HCl 2 mg sublingual tablet RxNorm: 060382 Take 1 Tablet(s) Sublingual TID 07/19/19 23 023 Inactive oxycodone 5 mg tablet RxNorm: 9266542 Take 1 Tablet(s) Oral BID x7 days then decrease to 1 tab once daily x 7 days then d/c 07/09/19 23 023 Inactive latanoprost 0.005 % eye drops RxNorm: 156210 Take 1 Drop(s) Both eyes QHS every night at bedtime 07/07/19 023 Inactive buprenorphine 5 mcg/hour weekly transdermal patch RxNorm: 957596 Apply 1 Transdermal once every 7 days 07/06/19 023 Inactive zolpidem 5 mg tablet RxNorm: 714699 Take 1 Tablet(s) Oral QHS every night at bedtime 07/06/19 023 Inactive buprenorphine 5 mcg/hour weekly transdermal patch RxNorm: 136379 Apply 1 Transdermal once every 7 days 07/06/19 023 Inactive start after stops oxycodone. belbuca film not covered acetaminophen 500 mg tablet RxNorm: 970045 Take 2 Tablet(s) Oral TID 07/02/19 023 Inactive famotidine 20 mg tablet RxNorm: 874041 Give 1 Tablet(s) Oral QHS every night at bedtime 07/02/19 024 Inactive amlodipine 5 mg tablet RxNorm: 117406 Take 1 Tablet(s) Oral QD 07/02/19 023 Inactive nicotine 21 mg/24 hr daily transdermal patch RxNorm: 150332 Apply 1 Patch Transdermal QD Remove old patch prior to placing the new one 07/02/19 023 Inactive gabapentin 600 mg tablet RxNorm: 796770 Take 1 Tablet(s) Oral TID 07/02/19 023 Inactive risperidone 2 mg tablet RxNorm: 979724 Take 1 Tablet(s) Oral BID 07/02/19 023 Inactive pantoprazole 40 mg intravenous solution RxNorm: 044360 Take 1 Tablet(s) Intravenous QAM every morning 07/02/19 023 Inactive torsemide 20 mg tablet RxNorm: 408118 Take 1 Tablet(s) Oral QAM every morning 07/02/19 024 Inactive Januvia 100 mg tablet RxNorm: 962527 Take 1 Tablet(s) Oral QD 07/02/19 023 Inactive atorvastatin 10 mg tablet RxNorm: 038991 Take 1 Tablet(s) Oral QHS every night at bedtime 07/02/19 023 Inactive potassium chloride ER 10 mEq tablet,extended release RxNorm: 607126 Take 1 Tablet(s) Oral BID 07/02/19 23 023 Inactive [place] 75 mcg buccal film RxNorm: 6820738 Take 1/2 film (37.5mcg) (cut diagonally) BID (start AFTER stopping oxycodone) 07/02/19 023 Inactive start belbuca in 7 days AFTER patient stops oxycodone aspirin 81 mg tablet,delayed release RxNorm: 385122 Take 1 Tablet(s) Oral QD 07/02/19 23 023 Inactive dorzolamide 22.3 mg-timolol 6.8 mg/mL eye drops RxNorm: 6595025 Apply 1 Drop(s) Both eyes BID 07/02/19 23 024 Inactive latanoprost 0.005 % eye drops RxNorm: 019897 Take 1 Drop(s) Both eyes QHS every night at bedtime 07/02/19 023 Inactive Systane Ultra 0.4 %-0.3 % eye drops RxNorm: 923232 Apply 1 Drop(s) Both eyes QID 07/02/19 23 023 Inactive Lantus Solostar U-100 Insulin 100 unit/mL (3 mL) subcutaneous pen RxNorm: 138918 Take 40 Unit(s) Subcutaneous QHS every night at bedtime 07/02/19 023 Inactive oxybutynin chloride 5 mg tablet RxNorm: 053669 Administer 1 Tablet(s) Oral QHS every night at bedtime 07/02/19 023 Inactive Miralax 17 gram oral powder packet RxNorm: 008758 Take 1 Packet Oral QD 07/02/19 23 023 Inactive hydrochlorothiazide 25 mg tablet RxNorm: 977101 Take 1 Tablet(s) Oral QD 07/02/19 023 Inactive oxycodone 5 mg tablet RxNorm: 2667499 Take 1 Tablet(s) Oral TID then discontinue and start belbuca (d/c 10mg TID) 07/02/19 23 023 Inactive stop after 7 days duloxetine 60 mg capsule,delayed release RxNorm: 155353 Take 2 Capsule(s) Oral QD 07/02/19 23 023 Inactive Narcan 4 mg/actuation nasal spray RxNorm: 2412059 Give 1 [place] Nasal UD as directed 1 spray contents of ONE device into nostril, call 911. May repeat once with 2nd device 07/02/19 23 023 Inactive fluticasone propionate 50 mcg/actuation nasal spray,suspension RxNorm: 8878048 [place] 2 [place] Nasal QD - Daily both nostrils 07/02/19 23 023 Inactive magnesium oxide 400 mg (241.3 mg magnesium) tablet RxNorm: 599660 Give 1 Tablet(s) Oral BID 07/02/19 023 Inactive cholecalciferol (vitamin D3) 25 mcg (1,000 unit) tablet RxNorm: 263035 Take 1 Tablet(s) Oral QAM every morning 07/02/19 023 Inactive oxycodone 5 mg tablet RxNorm: 8851328 Take 2 Tablet(s) Oral TID PRN 06/04/19 23 023 Inactive azithromycin 250 mg tablet RxNorm: 223568 Take Tablet(s) Oral QD 2 Tablets PO QD x 1 Day - Then 1 Tablet PO QD x 4 Days 05/10/19 023 Inactive oxycodone 5 mg tablet RxNorm: 9769369 Take 2 Tablet(s) Oral TID /difficulty breathing 05/03/19 23 023 Inactive oxycodone 5 mg tablet RxNorm: 9493380 Take 2 Tablet(s) Oral TID /difficulty breathing 03/03/20 22 022 Inactive azithromycin 250 mg tablet RxNorm: 882961 Take Tablet(s) Oral QD 2 Tablets PO QD x 1 Day - Then 1 Tablet PO QD x 4 Days 05/10/19 23 023 Inactive zolpidem 5 mg tablet RxNorm: 136417 Take 1 Tablet(s) Oral QHS every night at bedtime as needed 03/28/19 023 Inactive Medication Administered No Medication Administered data Results Observation Observation Code Item Item Code Result Date Service Location Urinalysis UA Bilirubin - Urinalysis NEGATIVE 08/05/19 24 Unknown Urinalysis UA Blood - Urinalysis NEGATIVE 08/05/19 24 Unknown Urinalysis UA Glucose - Urinalysis NEGATIVE 08/05/19 24 Unknown Urinalysis UA Ketone - Urinalysis NEGATIVE 08/05/19 24 Unknown Urinalysis UA Leukocytes - Urinalysis TRACE 08/05/19 24 Unknown Urinalysis UA Nitrites - Urinalysis NEGATIVE 08/05/19 24 Unknown Urinalysis UA pH - Urinalysis 7 24 Unknown Urinalysis UA Protein - Urinalysis NEGATIVE 08/05/19 24 Unknown Urinalysis UA Specific [place] - Urinalysis 1.010 08/05/19 Unknown Urinalysis UA Urobilinogen - Urinalysis 0.2 08/05/19 Unknown Culture and Sensitivity CLTSENS Growth 24 No Growth 08/05/19 Unknown Culture and Sensitivity CLTSENS Growth 48 No Growth 08/05/19 Unknown PDFReport PDFReport PDFReport 08/02/19 Unknown PDFReport PDFReport PDFReport 08/02/19 Unknown Procedures Procedure Codes Date BEHAV CHNG SMOKING 3-[address]: 2 37254028 CPT-4: 75488 06/29/2022 Reason For Visit No Reason For Visit data Plan of Care Planned Activity Notes Codes Status Date Patient Education: Patient M edication Summary Completed 08/03/2023 Appointment: Yesika Adams WPtel: [address] [place], [place] [phone] Telehealth- Est Pt 08/11/2022 Referral: [facility] WPtel: [phone] [facility] [address] [id number] Referral Records Received 07/18/2022 Instructions Comment Date Rena is a resident a [facility].?? Previously was seen by doctor in [place].?? First [facility] visit 03/10.?? Arthritis/pain complaints and anxiety are her biggest concerns. Johnnie (in 2020). 2 sons - son Korey visits (From??[facility]).??AWV:Colonoscopy due 2024.??Labs:??- Yearly MAY (CMP, CBC with differential, A1c, Lipid panel, TSH, VitD, VitB12, urine microalbumin)- Q6mo JANUARY (BMP )- Q3mo JULY, OCT, JAN, APR, (A1c)*4.30.2023 (urine mircoalbumin creat ratio 14.94 WNL) 09/07/2023
--- OUTSIDE RECORDS SUMMARY | 2023-09-07 20:12 | XMS_ITS | CCD ---
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 Role Phone Eleno Justo KELLEY Primary Care Provider Nirmala vailable Unavailable Chronic Care Management Unavaila ble Summary Purpose DataExchange Insurance Providers Payer name Policy type / Coverage type Covered constitution party ID Effective Begin Date Effective End Date [place] Blue Cross/Blue Shield [id number] Unknown [place] [id number] Unknown Family history Mother Diagnosis Age At Onset Glaucoma Unknown Brother Diagnosis Age At Onset Visual disturbance/blindness Unknown Glaucoma Unknown Father Diagnosis Age At Onset Stomach cancer Unknown Social History Social History Element Codes Description Effec tive Dates Tobacco history SNOMED CT: 45563444 Current every day smoker 07/01/[address]: 051103733 No Alcohol Consum ption 07/01/2022 Allergies, Adverse Reactions, Alerts Substance Reaction Codes Entered Date Inactivated Date Status Bee Sting Unknown 03/03/2022 No Inactive Date Ac tive NSAIDS Unknown 03/03/2022 No Inactive Date Ac tive PENICILLINS Unknown 03/03/2022 No Inactive Date Active losartan RxNorm: 536772 03/03/2022 No Inactive Da te Active aspirin Unknown 03/03/2022 No Inactive Date Ac tive tramadol RxNorm: 45258 03/03/2022 No Inactive Marek e Active Other: [...] Headache ICD-10: R51.9 ICD-9: 784.0 06/14/2023 Resolved assisted (current) use of insulin ICD-10: Z79.4 06/13 [...] Fill Instructions Macrobid 100 mg capsule RxNorm: 548026 Take 1 Capsule(s) Oral BID 07/26/19 24 024 Inactive Macrobid 100 mg capsule RxNorm: 563869 Take 1 Capsule(s) Oral BID 07/26/19 24 024 Inactive nicotine 21 mg/24 hr daily transdermal patch RxNorm: 464492 Apply 1 Transdermal QD 07/19/19 24 024 Active Januvia 100 mg tablet RxNorm: 072522 Take 1 Tablet(s) Oral QD 07/18/19 24 025 Active 07/18/2023 PROACTIVE REFILL REQUEST FOR NEXT CYCLE PLEASE THANK YOU RX has/will before cycle date acetaminophen 500 mg tablet RxNorm: 366183 Take 2 Tablet(s) Oral TID 07/18/19 24 025 Active 07/18/2023 PROACTIVE REFILL REQUEST FOR NEXT CYCLE PLEASE THANK YOU RX has/will before cycle date magnesium oxide 400 mg (241.3 mg magnesium) tablet RxNorm: 387960 Take 1 Tablet(s) Oral BID 07/18/19 24 025 Active 07/18/2023 PROACTIVE REFILL REQUEST FOR NEXT CYCLE PLEASE THANK YOU RX has/will before cycle date risperidone 2 mg tablet RxNorm: 174412 Take 1 Tablet(s) Oral BID 07/18/19 24 025 Active 07/18/2023 PROACTIVE REFILL REQUEST FOR NEXT CYCLE PLEASE THANK YOU RX has/will before cycle date pantoprazole 40 mg tablet,delayed release RxNorm: 284637 Take 1 Tablet(s) Oral QAM every morning BEFORE BREAKFAST 07/18/19 24 025 Active 07/18/2023 PROACTIVE REFILL REQUEST FOR NEXT CYCLE PLEASE THANK YOU RX has/will before cycle date duloxetine 60 mg capsule,delayed release RxNorm: 429472 Take 2 Capsule(s) Oral QD 07/18/19 24 025 Active 07/18/2023 PROACTIVE REFILL REQUEST FOR NEXT CYCLE PLEASE THANK YOU RX has/will before cycle date latanoprost 0.005 % eye drops RxNorm: 365614 Take 1 Drop(s) Both eyes QHS every [...] 24 Active Banophen 25 mg capsule RxNorm: 4557931 Take 1-2 Capsule(s) Oral Q8H every 8 hours as needed for Allergies 05/24/19 No Stop Date Active Banophen 25 mg capsule RxNorm: 3898619 Take 1-2 Capsule(s) Oral Q8H every 8 hours as needed 05/24/19 24 024 Inactive torsemide 20 mg tablet RxNorm: 442696 Take 1 Tablet(s) Oral QAM every morning 05/22/19 24 025 Active 05/22/2023 PROACTIVE REFILL REQUEST FOR NEXT CYCLE PLEASE THANK YOU RX has/will before cycle date famotidine 20 mg tablet RxNorm: 476932 Take 1 Tablet(s) Oral QHS every night at bedtime 05/22/19 24 025 Active 05/22/2023 PROACTIVE REFILL REQUEST FOR NEXT CYCLE PLEASE THANK YOU Aspercreme (lidocaine) 4 % topical patch RxNorm: 3313699 Apply 1 Patch Topical QD (on for 12 hours, off for 12 hours) 05/15/19 24 025 Active dorzolamide 22.3 mg-timolol 6.8 mg/mL eye drops RxNorm: 0378539 Apply 1 Drop(s) Both eyes BID 04/27/19 24 025 Active Humalog KwikPen (U-100) Insulin 100 unit/mL subcutaneous RxNorm: 9810291 Inject 0-7 Unit(s) Subcutaneous Inject per sliding scale BID before lunch and dinner 04/25/19 24 024 Inactive melatonin 3 mg tablet RxNorm: 807967 Take 1 Tablet(s) Oral QHS every night at bedtime 02/29/20 23 024 Active 02/28/2023 PROACTIVE REFILL REQUEST FOR NEXT CYCLE PLEASE THANK YOU potassium chloride ER 20 mEq tablet,extended release(part/cryst) RxNorm: 0202499 Take 2 Tablet(s) Oral QD 02/29/20 23 024 Active 02/28/2023 PROACTIVE REFILL REQUEST FOR NEXT CYCLE PLEASE THANK YOU atorvastatin 10 mg tablet RxNorm: 555575 Take 1 Tablet(s) Oral QD 01/06/20 23 024 Active 01/05/2023 PROACTIVE REFILL REQUEST FOR NEXT CYCLE PLEASE THANK YOU fluticasone propionate 50 mcg/actuation nasal spray,suspension RxNorm: 3060416 Cicero 2 Cicero Nasal QD - Daily both nostrils 12/20/19 No Stop Date Active nicotine 21 mg/24 hr daily transdermal patch RxNorm: Apply 1 Transdermal QD 12/02/19 023 Inactive nicotine 21 mg/24 hr daily transdermal patch RxNorm: Apply 1 Transdermal QD 11/29/19 023 Inactive loratadine 10 mg tablet RxNorm: 198842 Take 1 Tablet(s) Oral QD as needed 11/23/19 024 Inactive loratadine 10 mg tablet RxNorm: 175687 Take 1 Tablet(s) Oral QD as needed 11/23/19 023 Inactive nicotine 21 mg/24 hr daily transdermal patch RxNorm: Apply 1 Transdermal QD 11/16/19 023 Inactive aspirin 81 mg tablet,delayed release RxNorm: 372943 Take 1 Tablet(s) Oral QD 11/15/19 23 024 Active 2ND REQUEST 11/11/2022 NEED KIM PLEASE THANK YOU nicotine 21 mg/24 hr daily transdermal patch RxNorm: Apply 1 Transdermal QD 11/02/19 23 023 Inactive amlodipine 10 mg tablet RxNorm: 316734 Take 1 Tablet(s) Oral QD 10/20/19 024 Active nicotine 21 mg/24 hr daily transdermal patch RxNorm: APPLY 1 PATCH ONCE DAILY 10/18/19 23 023 Inactive Pen Needle 30 gauge x 08/02 RxNorm: Use 1 Unit(s) TID Use as directed to administer insulin up to 3x daily 10/12/19 23 024 Inactive cholecalciferol (vitamin D3) 25 mcg (1,000 unit) tablet RxNorm: 742416 TAKE 1 TABLET BY MOUTH DAILY (1,000 UNITS) 09/14/19 23 024 Active 09/13/2022 PROACTIVE REFILL REQUEST FOR NEXT CYCLE PLEASE THANK YOU Systane Ultra 0.4 %-0.3 % eye drops RxNorm: 081118 Instill 1 Drop(s) Both eyes QID 09/06/19 No Stop Date Active diclofenac 1 % topical gel RxNorm: 346108 Apply 4 Gram(s) Topical QID (bilateral knees or area of pain per patient's request) 09/01/19 No Stop Date Active acetaminophen 325 mg tablet RxNorm: 303053 Take 1 Tablet(s) Oral Q4H every four hours as needed 09/01/19 No Stop Date Active Lantus Solostar U-100 Insulin 100 unit/mL (3 mL) subcutaneous pen RxNorm: 053219 Inject 20 Unit(s) Subcutaneous QHS every night at bedtime 09/01/19 024 Inactive Pen Needle 30 gauge x 5/16 RxNorm: Use as directed to administer insulin up to 3x daily 09/01/19 023 Inactive Humalog KwikPen (U-100) Insulin 100 unit/mL subcutaneous RxNorm: 2902967 Unit(s) Subcutaneous Inject per sliding scale BID before lunch and dinner 09/01/19 024 Inactive Aspercreme (lidocaine) 4 % topical patch RxNorm: 9084732 Apply 1 Patch Topical QD (on for 12 hours, off for 12 hours) 09/01/19 024 Inactive melatonin 3 mg tablet RxNorm: 390525 Take 2 Tablet(s) Oral QHS every night at bedtime as needed (may repeat once) 09/01/19 023 Inactive hydrochlorothiazide 25 mg tablet RxNorm: 404004 Take 1 Tablet(s) Oral QD 07/23/19 23 024 Inactive 2nd REQUEST FOR REFILLS 07-22-2022 NEED KIM PLEASE = THANK YOU Januvia 100 mg tablet RxNorm: 927163 Take 1 Tablet(s) Oral QD 07/23/19 23 023 Inactive 2nd REQUEST FOR REFILLS 07-22-2022 NEED KIM PLEASE = THANK YOU potassium chloride ER 10 mEq capsule,extended release RxNorm: 113635 TAKE 1 CAPSULE BY MOUTH TWICE DAILY WITH MEAL(S) 07/23/19 23 023 Inactive 2nd REQUEST FOR REFILLS 07-22-2022 NEED KIM PLEASE = THANK YOU duloxetine 60 mg capsule,delayed release RxNorm: 728779 Take 2 Capsule(s) Oral QD 07/23/19 23 023 Inactive 2nd REQUEST FOR REFILLS 07-22-2022 NEED KIM PLEASE = THANK YOU pantoprazole 40 mg tablet,delayed release RxNorm: 941793 TAKE 1 TABLET BY MOUTH EVERY MORNING BEFORE BREAKFAST 07/23/19 23 023 Inactive 2nd REQUEST FOR REFILLS 07-22-2022 NEED KIM PLEASE = THANK YOU magnesium oxide 400 mg (241.3 mg magnesium) tablet RxNorm: 247872 Take 1 Tablet(s) Oral BID 07/23/19 23 023 Inactive 2nd REQUEST FOR REFILLS 07-22-2022 NEED KIM PLEASE = THANK YOU acetaminophen 500 mg tablet RxNorm: 974924 Take 2 Tablet(s) Oral TID 07/23/19 23 023 Inactive 2nd REQUEST FOR REFILLS 07-22-2022 NEED KIM PLEASE = THANK YOU risperidone 2 mg tablet RxNorm: 841327 Take 1 Tablet(s) Oral BID 07/23/19 23 023 Inactive 2nd REQUEST FOR REFILLS 07-22-2022 NEED KIM PLEASE = THANK YOU buprenorphine HCl 2 mg sublingual tablet RxNorm: 362277 Take 1 Tablet(s) Sublingual TID 07/19/19 23 023 Inactive buprenorphine HCl 2 mg sublingual tablet RxNorm: 223578 Take 1 Tablet(s) Sublingual TID 07/19/19 23 023 Inactive oxycodone 5 mg tablet RxNorm: 1789573 Take 1 Tablet(s) Oral BID x7 days then decrease to 1 tab once daily x 7 days then d/c 07/09/19 23 023 Inactive latanoprost 0.005 % eye drops RxNorm: 687834 Take 1 Drop(s) Both eyes QHS every night at bedtime 07/07/19 23 023 Inactive buprenorphine 5 mcg/hour weekly transdermal patch RxNorm: 990647 Apply 1 Transdermal once every 7 days 07/06/19 23 023 Inactive zolpidem 5 mg tablet RxNorm: 505943 Take 1 Tablet(s) Oral QHS every night at bedtime 07/06/19 023 Inactive buprenorphine 5 mcg/hour weekly transdermal patch RxNorm: 650274 Apply 1 Transdermal once every 7 days 07/06/19 023 Inactive start after stops oxycodone. belbuca film not covered acetaminophen 500 mg tablet RxNorm: 554577 Take 2 Tablet(s) Oral TID 07/02/19 23 023 Inactive famotidine 20 mg tablet RxNorm: 739695 Give 1 Tablet(s) Oral QHS every night at bedtime 07/02/19 024 Inactive amlodipine 5 mg tablet RxNorm: 663937 Take 1 Tablet(s) Oral QD 07/02/19 023 Inactive nicotine 21 mg/24 hr daily transdermal patch RxNorm: 023125 Apply 1 Patch Transdermal QD Remove old patch prior to placing the new one 07/02/19 023 Inactive gabapentin 600 mg tablet RxNorm: 105226 Take 1 Tablet(s) Oral TID 07/02/19 023 Inactive risperidone 2 mg tablet RxNorm: 972430 Take 1 Tablet(s) Oral BID 07/02/19 023 Inactive pantoprazole 40 mg intravenous solution RxNorm: 408818 Take 1 Tablet(s) Intravenous QAM every morning 07/02/19 23 023 Inactive torsemide 20 mg tablet RxNorm: 111713 Take 1 Tablet(s) Oral QAM every morning 07/02/19 024 Inactive Januvia 100 mg tablet RxNorm: 312841 Take 1 Tablet(s) Oral QD 07/02/19 023 Inactive atorvastatin 10 mg tablet RxNorm: 140079 Take 1 Tablet(s) Oral QHS every night at bedtime 07/02/19 023 Inactive potassium chloride ER 10 mEq tablet,extended release RxNorm: 800354 Take 1 Tablet(s) Oral BID 07/02/19 23 023 Inactive Belbuca 75 mcg buccal film RxNorm: 1473121 Take 1/2 film (37.5mcg) (cut diagonally) BID (start AFTER stopping oxycodone) 07/02/19 23 023 Inactive start belbuca in 7 days AFTER patient stops oxycodone aspirin 81 mg tablet,delayed release RxNorm: 199752 Take 1 Tablet(s) Oral QD 07/02/19 023 Inactive dorzolamide 22.3 mg-timolol 6.8 mg/mL eye drops RxNorm: 4467103 Apply 1 Drop(s) Both eyes BID 07/02/19 024 Inactive latanoprost 0.005 % eye drops RxNorm: 559725 Take 1 Drop(s) Both eyes QHS every night at bedtime 07/02/19 23 023 Inactive Systane Ultra 0.4 %-0.3 % eye drops RxNorm: 183023 Apply 1 Drop(s) Both eyes QID 07/02/19 023 Inactive Lantus Solostar U-100 Insulin 100 unit/mL (3 mL) subcutaneous pen RxNorm: 287196 Take 40 Unit(s) Subcutaneous QHS every night at bedtime 07/02/19 023 Inactive oxybutynin chloride 5 mg tablet RxNorm: 252891 Administer 1 Tablet(s) Oral QHS every night at bedtime 07/02/19 023 Inactive Miralax 17 gram oral powder packet RxNorm: 979997 Take 1 Packet Oral QD 07/02/19 023 Inactive hydrochlorothiazide 25 mg tablet RxNorm: 869585 Take 1 Tablet(s) Oral QD 07/02/19 023 Inactive oxycodone 5 mg tablet RxNorm: 5884002 Take 1 Tablet(s) Oral TID then discontinue and start belbuca (d/c 10mg TID) 07/02/19 23 023 Inactive stop after 7 days duloxetine 60 mg capsule,delayed release RxNorm: 541107 Take 2 Capsule(s) Oral QD 07/02/19 023 Inactive Narcan 4 mg/actuation nasal spray RxNorm: 5168798 Give 1 Cicero Nasal UD as directed 1 spray contents of ONE device into nostril, call 911. May repeat once with 2nd device 07/02/19 23 023 Inactive fluticasone propionate 50 mcg/actuation nasal spray,suspension RxNorm: 8588350 Cicero 2 Cicero Nasal QD - Daily both nostrils 07/02/19 23 023 Inactive magnesium oxide 400 mg (241.3 mg magnesium) tablet RxNorm: 311727 Give 1 Tablet(s) Oral BID 07/02/19 23 023 Inactive cholecalciferol (vitamin D3) 25 mcg (1,000 unit) tablet RxNorm: 151722 Take 1 Tablet(s) Oral QAM every morning 07/02/19 023 Inactive oxycodone 5 mg tablet RxNorm: 5020474 Take 2 Tablet(s) Oral TID PRN 06/04/19 023 Inactive azithromycin 250 mg tablet RxNorm: 977188 Take Tablet(s) Oral QD 2 Tablets PO QD x 1 Day - Then 1 Tablet PO QD x 4 Days 05/10/19 023 Inactive oxycodone 5 mg tablet RxNorm: 5670458 Take 2 Tablet(s) Oral TID /difficulty breathing 05/03/19 023 Inactive oxycodone 5 mg tablet RxNorm: 9560329 Take 2 Tablet(s) Oral TID /difficulty breathing 03/03/20 22 022 Inactive azithromycin 250 mg tablet RxNorm: 212696 Take Tablet(s) Oral QD 2 Tablets PO QD x 1 Day - Then 1 Tablet PO QD x 4 Days 05/10/19 23 023 Inactive zolpidem 5 mg tablet RxNorm: 297128 Take 1 Tablet(s) Oral QHS every night at bedtime as needed 03/28/19 023 Inactive Medication Administered No Medication Administered data Procedures Procedure Codes Date BEHAV CHNG SMOKING 3-[address]: 2 39611668 CPT-4: 97550 06/29/2022 Reason For Visit No Reason For Visit data Plan of Care Planned Activity Notes Codes Status Date Referral: [facility] WPtel: [id number] [place], [place] [id number] Referral Records Received 07/18/2022 Instructions Comment Date Rena is a resident a [place] [facility].?? Previously was seen by doctor in [place].?? First [facility] visit 03/10.?? Arthritis/pain complaints and anxiety are her biggest concerns. Johnnie (in 2020). 2 sons - son Korey visits (From[facility]).??AWV:Colonoscopy due 2024.??Labs:??- Yearly JULY (CMP, CBC with differential, A1c, Lipid panel, TSH, VitD, VitB12, urine microalbumin)- Q6mo JANUARY (BMP )- Q3mo JULY, OCT, JAN, APR, (A1c)*4.30.2023 (urine mircoalbumin creat ratio 14.94 WNL) 09/07/2023
--- OUTSIDE RECORDS SUMMARY | 2023-09-07 20:12 | XMS_ITS | CCD ---
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 Care Application Packaging Specialist Name Role Phone Eleno Justo KELLEY Primary Care Provider Nirmala vailable Unavailable Chronic Care Management Unavaila ble Summary Purpose DataExchange Insurance Providers Payer name Policy type / Coverage type Covered libertarian ID Effective Begin Date Effective End Date [place] Blue Cross/Blue Shield [id number] [place] [id number] Unknown Family history Mother Diagnosis Age At Onset Glaucoma Unknown Brother Diagnosis Age At Onset Visual disturbance/blindness Unknown Glaucoma Unknown Father Diagnosis Age At Onset Stomach cancer Unknown Social History Social History Element Codes Description Effec tive Dates Tobacco history SNOMED CT: 56897378 Current every day smoker 07/01/[address]: 299846606 No Alcohol Consum ption 07/01/2022 Allergies, Adverse Reactions, Alerts Substance Reaction Codes Entered Date Inactivated Date Status Bee Sting Unknown 03/03/2022 No Inactive Date Ac tive NSAIDS Unknown 03/03/2022 No Inactive Date Ac tive PENICILLINS Unknown 03/03/2022 No Inactive Date Active losartan RxNorm: 496460 03/03/2022 No Inactive Da te Active aspirin Unknown 03/03/2022 No Inactive Date Ac tive tramadol RxNorm: 57187 03/03/2022 No Inactive Marek e Active Other: [...] Headache ICD-10: R51.9 ICD-9: 784.0 06/14/2023 Resolved jail (current) use of insulin ICD-10: Z79.4 06/13 [...] 21 mg/24 hr daily transdermal patch RxNorm: 156301 Apply 1 Transdermal QD 07/19/19 24 024 Active Januvia 100 mg tablet RxNorm: 974952 Take 1 Tablet(s) Oral QD 07/18/19 24 025 Active 07/18/2023 PROACTIVE REFILL REQUEST FOR NEXT CYCLE PLEASE THANK YOU RX has/will before cycle date acetaminophen 500 mg tablet RxNorm: 442045 Take 2 Tablet(s) Oral TID 07/18/19 24 025 Active 07/18/2023 PROACTIVE REFILL REQUEST FOR NEXT CYCLE PLEASE THANK YOU RX has/will before cycle date magnesium oxide 400 mg (241.3 mg magnesium) tablet RxNorm: 800424 Take 1 Tablet(s) Oral BID 07/18/19 24 025 Active 07/18/2023 PROACTIVE REFILL REQUEST FOR NEXT CYCLE PLEASE THANK YOU RX has/will before cycle date risperidone 2 mg tablet RxNorm: 116972 Take 1 Tablet(s) Oral BID 07/18/19 24 025 Active 07/18/2023 PROACTIVE REFILL REQUEST FOR NEXT CYCLE PLEASE THANK YOU RX has/will before cycle date pantoprazole 40 mg tablet,delayed release RxNorm: 342111 Take 1 Tablet(s) Oral QAM every morning BEFORE BREAKFAST 07/18/19 24 025 Active 07/18/2023 PROACTIVE REFILL REQUEST FOR NEXT CYCLE PLEASE THANK YOU RX has/will before cycle date duloxetine 60 mg capsule,delayed release RxNorm: 129900 Take 2 Capsule(s) Oral QD 07/18/19 24 025 Active 07/18/2023 PROACTIVE REFILL REQUEST FOR NEXT CYCLE PLEASE THANK YOU RX has/will before cycle date latanoprost 0.005 % eye drops RxNorm: 705761 Take 1 Drop(s) Both eyes QHS every [...] 024 Active Banophen 25 mg capsule RxNorm: 3049422 Take 1-2 Capsule(s) Oral Q8H every 8 hours as needed for Allergies 05/24/19 24 No Stop Date Active Banophen 25 mg capsule RxNorm: 2471657 Take 1-2 Capsule(s) Oral Q8H every 8 hours as needed 05/24/19 24 024 Inactive torsemide 20 mg tablet RxNorm: 739409 Take 1 Tablet(s) Oral QAM every morning 05/22/19 24 025 Active 05/22/2023 PROACTIVE REFILL REQUEST FOR NEXT CYCLE PLEASE THANK YOU RX has/will before cycle date famotidine 20 mg tablet RxNorm: 022941 Take 1 Tablet(s) Oral QHS every night at bedtime 05/22/19 24 025 Active 05/22/2023 PROACTIVE REFILL REQUEST FOR NEXT CYCLE PLEASE THANK YOU Aspercreme (lidocaine) 4 % topical patch RxNorm: 0122405 Apply 1 Patch Topical QD (on for 12 hours, off for 12 hours) 05/15/19 24 025 Active dorzolamide 22.3 mg-timolol 6.8 mg/mL eye drops RxNorm: 1705351 Apply 1 Drop(s) Both eyes BID 04/27/19 24 025 Active Humalog KwikPen (U-100) Insulin 100 unit/mL subcutaneous RxNorm: 8887533 Inject 0-7 Unit(s) Subcutaneous Inject per sliding scale BID before lunch and dinner 04/25/19 24 024 Inactive melatonin 3 mg tablet RxNorm: 919912 Take 1 Tablet(s) Oral QHS every night at bedtime 02/29/20 23 024 Active 02/28/2023 PROACTIVE REFILL REQUEST FOR NEXT CYCLE PLEASE THANK YOU potassium chloride ER 20 mEq tablet,extended release(part/cryst) RxNorm: 4374357 Take 2 Tablet(s) Oral QD 02/29/20 23 024 Active 02/28/2023 PROACTIVE REFILL REQUEST FOR NEXT CYCLE PLEASE THANK YOU atorvastatin 10 mg tablet RxNorm: 464927 Take 1 Tablet(s) Oral QD 01/06/20 23 024 Active 01/05/2023 PROACTIVE REFILL REQUEST FOR NEXT CYCLE PLEASE THANK YOU fluticasone propionate 50 mcg/actuation nasal spray,suspension RxNorm: 2228988 [place] 2 [place] Nasal QD - Daily both nostrils 12/20/19 No Stop Date Active nicotine 21 mg/24 hr daily transdermal patch RxNorm: Apply 1 Transdermal QD 12/02/19 023 Inactive nicotine 21 mg/24 hr daily transdermal patch RxNorm: Apply 1 Transdermal QD 11/29/19 023 Inactive loratadine 10 mg tablet RxNorm: 633057 Take 1 Tablet(s) Oral QD as needed 11/23/19 23 024 Inactive loratadine 10 mg tablet RxNorm: 736643 Take 1 Tablet(s) Oral QD as needed 11/23/19 23 023 Inactive nicotine 21 mg/24 hr daily transdermal patch RxNorm: Apply 1 Transdermal QD 11/16/19 023 Inactive aspirin 81 mg tablet,delayed release RxNorm: 366059 Take 1 Tablet(s) Oral QD 11/15/19 024 Active 2ND REQUEST 11/11/2022 NEED KIM PLEASE THANK YOU nicotine 21 mg/24 hr daily transdermal patch RxNorm: Apply 1 Transdermal QD 11/02/19 023 Inactive amlodipine 10 mg tablet RxNorm: 964441 Take 1 Tablet(s) Oral QD 10/20/19 23 024 Active nicotine 21 mg/24 hr daily transdermal patch RxNorm: APPLY 1 PATCH ONCE DAILY 10/18/19 023 Inactive Pen Needle 30 gauge x 5/16 RxNorm: Use 1 Unit(s) TID Use as directed to administer insulin up to 3x daily 10/12/19 23 024 Inactive cholecalciferol (vitamin D3) 25 mcg (1,000 unit) tablet RxNorm: 112166 TAKE 1 TABLET BY MOUTH DAILY (1,000 UNITS) 09/14/19 23 024 Active 09/13/2022 PROACTIVE REFILL REQUEST FOR NEXT CYCLE PLEASE THANK YOU Systane Ultra 0.4 %-0.3 % eye drops RxNorm: 114213 Instill 1 Drop(s) Both eyes QID 09/06/19 No Stop Date Active diclofenac 1 % topical gel RxNorm: 194137 Apply 4 Gram(s) Topical QID (bilateral knees or area of pain per patient's request) 09/01/19 No Stop Date Active acetaminophen 325 mg tablet RxNorm: 994911 Take 1 Tablet(s) Oral Q4H every four hours as needed 09/01/19 No Stop Date Active Lantus Solostar U-100 Insulin 100 unit/mL (3 mL) subcutaneous pen RxNorm: 020653 Inject 20 Unit(s) Subcutaneous QHS every night at bedtime 09/01/19 024 Inactive Pen Needle 30 gauge x 5/16 RxNorm: Use as directed to administer insulin up to 3x daily 09/01/19 023 Inactive Humalog KwikPen (U-100) Insulin 100 unit/mL subcutaneous RxNorm: 0093647 Unit(s) Subcutaneous Inject per sliding scale BID before lunch and dinner 09/01/19 024 Inactive Aspercreme (lidocaine) 4 % topical patch RxNorm: 3165810 Apply 1 Patch Topical QD (on for 12 hours, off for 12 hours) 09/01/19 024 Inactive melatonin 3 mg tablet RxNorm: 321077 Take 2 Tablet(s) Oral QHS every night at bedtime as needed (may repeat once) 09/01/19 023 Inactive hydrochlorothiazide 25 mg tablet RxNorm: 443819 Take 1 Tablet(s) Oral QD 07/23/19 23 024 Inactive 2nd REQUEST FOR REFILLS 07-22-2022 NEED KIM PLEASE = THANK YOU Januvia 100 mg tablet RxNorm: 565328 Take 1 Tablet(s) Oral QD 07/23/19 23 023 Inactive 2nd REQUEST FOR REFILLS 07-22-2022 NEED KIM PLEASE = THANK YOU potassium chloride ER 10 mEq capsule,extended release RxNorm: 186255 TAKE 1 CAPSULE BY MOUTH TWICE DAILY WITH MEAL(S) 07/23/19 23 023 Inactive 2nd REQUEST FOR REFILLS 07-22-2022 NEED KIM PLEASE = THANK YOU duloxetine 60 mg capsule,delayed release RxNorm: 567359 Take 2 Capsule(s) Oral QD 07/23/19 23 023 Inactive 2nd REQUEST FOR REFILLS 07-22-2022 NEED KIM PLEASE = THANK YOU pantoprazole 40 mg tablet,delayed release RxNorm: 198900 TAKE 1 TABLET BY MOUTH EVERY MORNING BEFORE BREAKFAST 07/23/19 23 023 Inactive 2nd REQUEST FOR REFILLS 07-22-2022 NEED KIM PLEASE = THANK YOU magnesium oxide 400 mg (241.3 mg magnesium) tablet RxNorm: 404044 Take 1 Tablet(s) Oral BID 07/23/19 23 023 Inactive 2nd REQUEST FOR REFILLS 07-22-2022 NEED KIM PLEASE = THANK YOU acetaminophen 500 mg tablet RxNorm: 522516 Take 2 Tablet(s) Oral TID 07/23/19 23 023 Inactive 2nd REQUEST FOR REFILLS 07-22-2022 NEED KIM PLEASE = THANK YOU risperidone 2 mg tablet RxNorm: 054858 Take 1 Tablet(s) Oral BID 07/23/19 23 023 Inactive 2nd REQUEST FOR REFILLS 07-22-2022 NEED KIM PLEASE = THANK YOU buprenorphine HCl 2 mg sublingual tablet RxNorm: 602757 Take 1 Tablet(s) Sublingual TID 07/19/19 23 023 Inactive buprenorphine HCl 2 mg sublingual tablet RxNorm: 284414 Take 1 Tablet(s) Sublingual TID 07/19/19 23 023 Inactive oxycodone 5 mg tablet RxNorm: 4262958 Take 1 Tablet(s) Oral BID x7 days then decrease to 1 tab once daily x 7 days then d/c 07/09/19 23 023 Inactive latanoprost 0.005 % eye drops RxNorm: 914114 Take 1 Drop(s) Both eyes QHS every night at bedtime 07/07/19 23 023 Inactive buprenorphine 5 mcg/hour weekly transdermal patch RxNorm: 060146 Apply 1 Transdermal once every 7 days 07/06/19 23 023 Inactive zolpidem 5 mg tablet RxNorm: 560795 Take 1 Tablet(s) Oral QHS every night at bedtime 07/06/19 23 023 Inactive buprenorphine 5 mcg/hour weekly transdermal patch RxNorm: 452298 Apply 1 Transdermal once every 7 days 07/06/19 23 023 Inactive start after stops oxycodone. belbuca film not covered acetaminophen 500 mg tablet RxNorm: 828369 Take 2 Tablet(s) Oral TID 07/02/19 023 Inactive famotidine 20 mg tablet RxNorm: 131175 Give 1 Tablet(s) Oral QHS every night at bedtime 07/02/19 024 Inactive amlodipine 5 mg tablet RxNorm: 209843 Take 1 Tablet(s) Oral QD 07/02/19 023 Inactive nicotine 21 mg/24 hr daily transdermal patch RxNorm: 136767 Apply 1 Patch Transdermal QD Remove old patch prior to placing the new one 07/02/19 023 Inactive gabapentin 600 mg tablet RxNorm: 388585 Take 1 Tablet(s) Oral TID 07/02/19 023 Inactive risperidone 2 mg tablet RxNorm: 764214 Take 1 Tablet(s) Oral BID 07/02/19 023 Inactive pantoprazole 40 mg intravenous solution RxNorm: 745323 Take 1 Tablet(s) Intravenous QAM every morning 07/02/19 023 Inactive torsemide 20 mg tablet RxNorm: 675757 Take 1 Tablet(s) Oral QAM every morning 07/02/19 024 Inactive Januvia 100 mg tablet RxNorm: 609507 Take 1 Tablet(s) Oral QD 07/02/19 023 Inactive atorvastatin 10 mg tablet RxNorm: 035165 Take 1 Tablet(s) Oral QHS every night at bedtime 07/02/19 023 Inactive potassium chloride ER 10 mEq tablet,extended release RxNorm: 759335 Take 1 Tablet(s) Oral BID 07/02/19 023 Inactive Belbuca 75 mcg buccal film RxNorm: 5329042 Take 1/2 film (37.5mcg) (cut diagonally) BID (start AFTER stopping oxycodone) 07/02/19 023 Inactive start belbuca in 7 days AFTER patient stops oxycodone aspirin 81 mg tablet,delayed release RxNorm: 359380 Take 1 Tablet(s) Oral QD 07/02/19 023 Inactive dorzolamide 22.3 mg-timolol 6.8 mg/mL eye drops RxNorm: 9049460 Apply 1 Drop(s) Both eyes BID 07/02/19 23 024 Inactive latanoprost 0.005 % eye drops RxNorm: 391984 Take 1 Drop(s) Both eyes QHS every night at bedtime 07/02/19 23 023 Inactive Systane Ultra 0.4 %-0.3 % eye drops RxNorm: 847256 Apply 1 Drop(s) Both eyes QID 07/02/19 23 023 Inactive Lantus Solostar U-100 Insulin 100 unit/mL (3 mL) subcutaneous pen RxNorm: 812225 Take 40 Unit(s) Subcutaneous QHS every night at bedtime 07/02/19 23 023 Inactive oxybutynin chloride 5 mg tablet RxNorm: 308658 Administer 1 Tablet(s) Oral QHS every night at bedtime 07/02/19 23 023 Inactive Miralax 17 gram oral powder packet RxNorm: 515496 Take 1 Packet Oral QD 07/02/19 023 Inactive hydrochlorothiazide 25 mg tablet RxNorm: 519452 Take 1 Tablet(s) Oral QD 07/02/19 023 Inactive oxycodone 5 mg tablet RxNorm: 4438978 Take 1 Tablet(s) Oral TID then discontinue and start belbuca (d/c 10mg TID) 07/02/19 23 023 Inactive stop after 7 days duloxetine 60 mg capsule,delayed release RxNorm: 374989 Take 2 Capsule(s) Oral QD 07/02/19 23 023 Inactive Narcan 4 mg/actuation nasal spray RxNorm: 9435385 Give 1 [place] Nasal UD as directed 1 spray contents of ONE device into nostril, call 911. May repeat once with 2nd device 07/02/19 23 023 Inactive fluticasone propionate 50 mcg/actuation nasal spray,suspension RxNorm: 2291334 [place] 2 [place] Nasal QD - Daily both nostrils 07/02/19 23 023 Inactive magnesium oxide 400 mg (241.3 mg magnesium) tablet RxNorm: 672494 Give 1 Tablet(s) Oral BID 07/02/19 23 023 Inactive cholecalciferol (vitamin D3) 25 mcg (1,000 unit) tablet RxNorm: 706335 Take 1 Tablet(s) Oral QAM every morning 07/02/19 23 023 Inactive oxycodone 5 mg tablet RxNorm: 9309907 Take 2 Tablet(s) Oral TID PRN 06/04/19 023 Inactive azithromycin 250 mg tablet RxNorm: 102135 Take Tablet(s) Oral QD 2 Tablets PO QD x 1 Day - Then 1 Tablet PO QD x 4 Days 05/10/19 023 Inactive oxycodone 5 mg tablet RxNorm: 3703235 Take 2 Tablet(s) Oral TID /difficulty breathing 05/03/19 023 Inactive oxycodone 5 mg tablet RxNorm: 6651614 Take 2 Tablet(s) Oral TID /difficulty breathing 03/03/20 022 Inactive azithromycin 250 mg tablet RxNorm: 232157 Take Tablet(s) Oral QD 2 Tablets PO QD x 1 Day - Then 1 Tablet PO QD x 4 Days 05/10/19 023 Inactive zolpidem 5 mg tablet RxNorm: 919761 Take 1 Tablet(s) Oral QHS every night at bedtime as needed 03/28/19 023 Inactive Medication Administered No Medication Administered data Procedures Procedure Codes Date BEHAV CHNG SMOKING 3-[address]: 2 91410156 CPT-4: 75126 06/29/2022 Reason For Visit No Reason For Visit data Plan of Care Planned Activity Notes Codes Status Date Referral: [facility] WPtel: [id number] [place], [place] [id number] Referral Records Received 07/18/2022 Instructions Comment Date Rena is a resident a [facility].?? Previously was seen by doctor in [place].?? First [facility] visit 03/10.?? Arthritis/pain complaints and anxiety are her biggest concerns. Johnnie (in 2020). 2 sons - son Korye visits (From[facility]).??AWV:Colonoscopy due 2024.??Labs:??- Yearly JULY (CMP, CBC with differential, A1c, Lipid panel, TSH, VitD, VitB12, urine microalbumin)- Q6mo JANUARY (BMP )- Q3mo JULY, OCT, JAN, APR, (A1c)*4.30.2023 (urine mircoalbumin creat ratio 14.94 WNL) 09/07/2023
--- OUTSIDE RECORDS SUMMARY | 2023-09-07 20:13 | XMS_ITS | CCD ---
Author Name Mariely Hirsch Address [address] [facility] [address] [place] [address] Phone Organization [facility] Phone Care Team Providers Care Insole Lip Turner Name Role Phone Eleno KELLEY McKenzie Primary Care Provider Nirmala vailable Unavailable Chronic Care Management Unavaila ble Summary Purpose DataExchange Insurance Providers Payer name Policy type / Coverage type Covered alliance party ID Effective Begin Date Effective End Date [place] Blue [place] Medicaid Blue Cross/Blue Shield [id number] Unknown Medicaid [place] Blue Cross/Blue Shield [id number] Unknown Family history Mother Diagnosis Age At Onset Glaucoma Unknown Brother Diagnosis Age At Onset Visual disturbance/blindness Unknown Glaucoma Unknown Father Diagnosis Age At Onset Stomach cancer Unknown Social History Social History Element Codes Description Effec tive Dates Tobacco history SNOMED CT: 77706860 Current every day smoker 07/01/[address]: 089495585 No Alcohol Consum ption 07/01/2022 Allergies, Adverse Reactions, Alerts Substance Reaction Codes Entered Date Inactivated Date Status Bee Sting Unknown 03/03/2022 No Inactive Date Ac tive NSAIDS Unknown 03/03/2022 No Inactive Date Ac tive PENICILLINS Unknown 03/03/2022 No Inactive Date Active losartan RxNorm: 536862 03/03/2022 No Inactive Da te Active aspirin Unknown 03/03/2022 No Inactive Date Ac tive tramadol RxNorm: 71743 03/03/2022 No Inactive Marek e Active Other: Unknown 03/03/2022 No Inactive Date Ac tive VARENICLINE Unknown 03/03/2022 No Inactive Date Active Problems Condition Codes Effective Dates Condition St atus Dysuria ICD-10: R30.0 ICD-9: 788.1 08/09/2023 Active Hypertension ICD-10: I10 ICD-9: 401.9 08/09/2023 Active Hypokalemia ICD-10: E87.6 ICD-9: 276.8 08/09/2023 Active 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, with long-term current use of insulin ICD-10: E11.59 ICD-9: 250.70 08/09/2023 Active Injury due to fall, subseque nt encounter ICD-10: W19.XXXD ICD-9: V58.89 08/09/2023 Resolved Preventative health care ICD-10: Z00.00 ICD-9: V70.0 06/23/2023 Active Primary osteoarthritis invol ving multiple joints ICD-10: M15.9 ICD-9: 715.98 06/23/2023 Active Chronic pain ICD-10: G89.29 ICD-9: 338.29 06/14/2023 Active Disorientation, unspecified ICD-10: R41. 0 ICD-9: 780.99 06/14/2023 Active Insomnia ICD-10: G47.00 ICD-9: 780.52 06/14/2023 Active Smoking ICD-10: F17.200 ICD-9: 305.1 06/14/2023 Active Community acquired pneumonia ICD-10: J18 .9 ICD-9: 486 06/14/2023 Resolved Cough ICD-10: R05.9 ICD-9: 786.2 06/14/2023 Resolved Headache ICD-10: R51.9 ICD-9: 784.0 06/14/2023 Resolved shelter (current) use of insulin ICD-10: Z79.4 06/13 Resolved Stomach pain ICD-10: R10.9 ICD-9: 536.8 06/14/2023 Resolved Arthritis associated with diabetes ICD-1 0: E11.618 ICD-9: 250.60 06/29/2022 Resolved Tobacco use ICD-10: Z72.0 ICD-9: 305.1 06/29/2022 Resolved Acute exacerbation of CHF (congestive heart failure) ICD-10: I50.9 ICD-9: 428.0 05/25/2022 Resolved Diabetes Unknown 03/03/2022 Active Diabetes mellitus Type 2 Unknown 03/03/2022 Act gm Medications Medication Codes Instructions Start Date Stop Date Status Fill Instructions cranberry fruit 400 mg tablet RxNorm: Take 1 Tablet(s) Oral BID 08/09/19 24 024 Active cranberry fruit 400 mg tablet RxNorm: Take 1 Tablet(s) Oral BID 08/09/19 24 024 Inactive Macrobid 100 mg capsule RxNorm: 005618 Take 1 Capsule(s) Oral BID 07/26/19 24 024 Inactive Macrobid 100 mg capsule RxNorm: 618151 Take 1 Capsule(s) Oral BID 07/26/19 24 024 Inactive nicotine 21 mg/24 hr daily transdermal patch RxNorm: 601605 Apply 1 Transdermal QD 07/19/19 24 024 Active Januvia 100 mg tablet RxNorm: 956437 Take 1 Tablet(s) Oral QD 07/18/19 24 025 Active 07/18/2023 PROACTIVE REFILL REQUEST FOR NEXT CYCLE PLEASE THANK YOU RX has/will before cycle date acetaminophen 500 mg tablet RxNorm: 652946 Take 2 Tablet(s) Oral TID 07/18/19 24 025 Active 07/18/2023 PROACTIVE REFILL REQUEST FOR NEXT CYCLE PLEASE THANK YOU RX has/will before cycle date magnesium oxide 400 mg (241.3 mg magnesium) tablet RxNorm: 495383 Take 1 Tablet(s) Oral BID 07/18/19 24 025 Active 07/18/2023 PROACTIVE REFILL REQUEST FOR NEXT CYCLE PLEASE THANK YOU RX has/will before cycle date risperidone 2 mg tablet RxNorm: 666458 Take 1 Tablet(s) Oral BID 07/18/19 24 025 Active 07/18/2023 PROACTIVE REFILL REQUEST FOR NEXT CYCLE PLEASE THANK YOU RX has/will before cycle date pantoprazole 40 mg tablet,delayed release RxNorm: 595278 Take 1 Tablet(s) Oral QAM every morning BEFORE BREAKFAST 07/18/19 24 025 Active 07/18/2023 PROACTIVE REFILL REQUEST FOR NEXT CYCLE PLEASE THANK YOU RX has/will before cycle date duloxetine 60 mg capsule,delayed release RxNorm: 694686 Take 2 Capsule(s) Oral QD 07/18/19 24 025 Active 07/18/2023 PROACTIVE REFILL REQUEST FOR NEXT CYCLE PLEASE THANK YOU RX has/will before cycle date latanoprost 0.005 % eye drops RxNorm: 009292 Take 1 Drop(s) Both eyes QHS every night at bedtime 07/13/19 24 No Stop Date Active FreeStyle Kristie 14 Day Sensor kit RxNorm: Use 1 Test Strip BIW biweekly 06/14/19 24 024 Active FreeStyle Kirstie 14 Day Sensor kit RxNorm: Use 1 Test Strip BIW biweekly 06/14/19 24 024 Inactive Protective Underwear Ex-Large RxNorm: USE DIRECTED 06/01/19 24 024 Active Banophen 25 mg capsule RxNorm: 0990121 Take 1-2 Capsule(s) Oral Q8H every 8 hours as needed for Allergies 05/24/19 No Stop Date Active Banophen 25 mg capsule RxNorm: 9410280 Take 1-2 Capsule(s) Oral Q8H every 8 hours as needed 05/24/19 24 024 Inactive torsemide 20 mg tablet RxNorm: 619065 Take 1 Tablet(s) Oral QAM every morning 05/22/19 24 025 Active 05/22/2023 PROACTIVE REFILL REQUEST FOR NEXT CYCLE PLEASE THANK YOU RX has/will before cycle date famotidine 20 mg tablet RxNorm: 127257 Take 1 Tablet(s) Oral QHS every night at bedtime 05/22/19 24 025 Active 05/22/2023 PROACTIVE REFILL REQUEST FOR NEXT CYCLE PLEASE THANK YOU Aspercreme (lidocaine) 4 % topical patch RxNorm: 0048565 Apply 1 Patch Topical QD (on for 12 hours, off for 12 hours) 05/15/19 24 025 Active dorzolamide 22.3 mg-timolol 6.8 mg/mL eye drops RxNorm: 5597949 Apply 1 Drop(s) Both eyes BID 04/27/19 24 025 Active Humalog KwikPen (U-100) Insulin 100 unit/mL subcutaneous RxNorm: 5423973 Inject 0-7 Unit(s) Subcutaneous Inject per sliding scale BID before lunch and dinner 04/25/19 24 024 Inactive melatonin 3 mg tablet RxNorm: 125223 Take 1 Tablet(s) Oral QHS every night at bedtime 02/29/20 23 024 Active 02/28/2023 PROACTIVE REFILL REQUEST FOR NEXT CYCLE PLEASE THANK YOU potassium chloride ER 20 mEq tablet,extended release(part/cryst) RxNorm: 0587925 Take 2 Tablet(s) Oral QD 02/29/20 23 024 Active 02/28/2023 PROACTIVE REFILL REQUEST FOR NEXT CYCLE PLEASE THANK YOU atorvastatin 10 mg tablet RxNorm: 635940 Take 1 Tablet(s) Oral QD 01/06/20 024 Active 01/05/2023 PROACTIVE REFILL REQUEST FOR NEXT CYCLE PLEASE THANK YOU fluticasone propionate 50 mcg/actuation nasal spray,suspension RxNorm: 1668176 Lynch 2 Lynch Nasal QD - Daily both nostrils 12/20/19 No Stop Date Active nicotine 21 mg/24 hr daily transdermal patch RxNorm: Apply 1 Transdermal QD 12/02/19 23 023 Inactive nicotine 21 mg/24 hr daily transdermal patch RxNorm: 787317 Apply 1 Transdermal QD 11/29/19 23 023 Inactive loratadine 10 mg tablet RxNorm: 009693 Take 1 Tablet(s) Oral QD as needed 11/23/19 23 024 Inactive loratadine 10 mg tablet RxNorm: 569578 Take 1 Tablet(s) Oral QD as needed 11/23/19 23 023 Inactive nicotine 21 mg/24 hr daily transdermal patch RxNorm: Apply 1 Transdermal QD 11/16/19 23 023 Inactive aspirin 81 mg tablet,delayed release RxNorm: 706125 Take 1 Tablet(s) Oral QD 11/15/19 23 024 Active 2ND REQUEST 11/11/2022 NEED KIM PLEASE THANK YOU nicotine 21 mg/24 hr daily transdermal patch RxNorm: Apply 1 Transdermal QD 11/02/19 23 023 Inactive amlodipine 10 mg tablet RxNorm: 998485 Take 1 Tablet(s) Oral QD 10/20/19 23 024 Active nicotine 21 mg/24 hr daily transdermal patch RxNorm: APPLY 1 PATCH ONCE DAILY 10/18/19 23 023 Inactive Pen Needle 30 gauge x 516 RxNorm: Use 1 Unit(s) TID Use as directed to administer insulin up to 3x daily 10/12/19 23 024 Inactive cholecalciferol (vitamin D3) 25 mcg (1,000 unit) tablet RxNorm: 203314 TAKE 1 TABLET BY MOUTH DAILY (1,000 UNITS) 09/14/19 024 Active 09/13/2022 PROACTIVE REFILL REQUEST FOR NEXT CYCLE PLEASE THANK YOU Systane Ultra 0.4 %-0.3 % eye drops RxNorm: 535770 Instill 1 Drop(s) Both eyes QID 09/06/19 No Stop Date Active diclofenac 1 % topical gel RxNorm: 912603 Apply 4 Gram(s) Topical QID (bilateral knees or area of pain per patient's request) 09/01/19 No Stop Date Active acetaminophen 325 mg tablet RxNorm: 544049 Take 1 Tablet(s) Oral Q4H every four hours as needed 09/01/19 No Stop Date Active Lantus Solostar U-100 Insulin 100 unit/mL (3 mL) subcutaneous pen RxNorm: 203415 Inject 20 Unit(s) Subcutaneous QHS every night at bedtime 09/01/19 23 024 Inactive Pen Needle 30 gauge x 516 RxNorm: Use as directed to administer insulin up to 3x daily 09/01/19 23 023 Inactive Humalog KwikPen (U-100) Insulin 100 unit/mL subcutaneous RxNorm: 3114419 Unit(s) Subcutaneous Inject per sliding scale BID before lunch and dinner 09/01/19 024 Inactive Aspercreme (lidocaine) 4 % topical patch RxNorm: 7964917 Apply 1 Patch Topical QD (on for 12 hours, off for 12 hours) 09/01/19 024 Inactive melatonin 3 mg tablet RxNorm: 577917 Take 2 Tablet(s) Oral QHS every night at bedtime as needed (may repeat once) 09/01/19 23 023 Inactive hydrochlorothiazide 25 mg tablet RxNorm: 064115 Take 1 Tablet(s) Oral QD 07/23/19 024 Inactive 2nd REQUEST FOR REFILLS 07-22-2022 NEED KIM PLEASE = THANK YOU Januvia 100 mg tablet RxNorm: 288334 Take 1 Tablet(s) Oral QD 07/23/19 23 023 Inactive 2nd REQUEST FOR REFILLS 07-22-2022 NEED KIM PLEASE = THANK YOU potassium chloride ER 10 mEq capsule,extended release RxNorm: 644801 TAKE 1 CAPSULE BY MOUTH TWICE DAILY WITH MEAL(S) 07/23/19 23 023 Inactive 2nd REQUEST FOR REFILLS 07-22-2022 NEED KIM PLEASE = THANK YOU duloxetine 60 mg capsule,delayed release RxNorm: 251840 Take 2 Capsule(s) Oral QD 07/23/19 23 023 Inactive 2nd REQUEST FOR REFILLS 07-22-2022 NEED KIM PLEASE = THANK YOU pantoprazole 40 mg tablet,delayed release RxNorm: 396224 TAKE 1 TABLET BY MOUTH EVERY MORNING BEFORE BREAKFAST 07/23/19 23 023 Inactive 2nd REQUEST FOR REFILLS 07-22-2022 NEED KIM PLEASE = THANK YOU magnesium oxide 400 mg (241.3 mg magnesium) tablet RxNorm: 111720 Take 1 Tablet(s) Oral BID 07/23/19 23 023 Inactive 2nd REQUEST FOR REFILLS 07-22-2022 NEED KIM PLEASE = THANK YOU acetaminophen 500 mg tablet RxNorm: 032871 Take 2 Tablet(s) Oral TID 07/23/19 23 023 Inactive 2nd REQUEST FOR REFILLS 07-22-2022 NEED KIM PLEASE = THANK YOU risperidone 2 mg tablet RxNorm: 908628 Take 1 Tablet(s) Oral BID 07/23/19 23 023 Inactive 2nd REQUEST FOR REFILLS 07-22-2022 NEED KIM PLEASE = THANK YOU buprenorphine HCl 2 mg sublingual tablet RxNorm: 776397 Take 1 Tablet(s) Sublingual TID 07/19/19 23 023 Inactive buprenorphine HCl 2 mg sublingual tablet RxNorm: 287028 Take 1 Tablet(s) Sublingual TID 07/19/19 23 023 Inactive oxycodone 5 mg tablet RxNorm: 0353373 Take 1 Tablet(s) Oral BID x7 days then decrease to 1 tab once daily x 7 days then d/c 07/09/19 23 023 Inactive latanoprost 0.005 % eye drops RxNorm: 563243 Take 1 Drop(s) Both eyes QHS every night at bedtime 07/07/19 23 023 Inactive buprenorphine 5 mcg/hour weekly transdermal patch RxNorm: 896550 Apply 1 Transdermal once every 7 days 07/06/19 23 023 Inactive zolpidem 5 mg tablet RxNorm: 029726 Take 1 Tablet(s) Oral QHS every night at bedtime 07/06/19 23 023 Inactive buprenorphine 5 mcg/hour weekly transdermal patch RxNorm: 371147 Apply 1 Transdermal once every 7 days 07/06/19 23 023 Inactive start after stops oxycodone. belbuca film not covered acetaminophen 500 mg tablet RxNorm: 197774 Take 2 Tablet(s) Oral TID 07/02/19 23 023 Inactive famotidine 20 mg tablet RxNorm: 485311 Give 1 Tablet(s) Oral QHS every night at bedtime 07/02/19 23 024 Inactive amlodipine 5 mg tablet RxNorm: 901708 Take 1 Tablet(s) Oral QD 07/02/19 023 Inactive nicotine 21 mg/24 hr daily transdermal patch RxNorm: 233457 Apply 1 Patch Transdermal QD Remove old patch prior to placing the new one 07/02/19 023 Inactive gabapentin 600 mg tablet RxNorm: 032846 Take 1 Tablet(s) Oral TID 07/02/19 23 023 Inactive risperidone 2 mg tablet RxNorm: 524416 Take 1 Tablet(s) Oral BID 07/02/19 23 023 Inactive pantoprazole 40 mg intravenous solution RxNorm: 123668 Take 1 Tablet(s) Intravenous QAM every morning 07/02/19 23 023 Inactive torsemide 20 mg tablet RxNorm: 974582 Take 1 Tablet(s) Oral QAM every morning 07/02/19 23 024 Inactive Januvia 100 mg tablet RxNorm: 117281 Take 1 Tablet(s) Oral QD 07/02/19 023 Inactive atorvastatin 10 mg tablet RxNorm: 009592 Take 1 Tablet(s) Oral QHS every night at bedtime 07/02/19 023 Inactive potassium chloride ER 10 mEq tablet,extended release RxNorm: 942510 Take 1 Tablet(s) Oral BID 07/02/19 23 023 Inactive Belbuca 75 mcg buccal film RxNorm: 4717817 Take 1/2 film (37.5mcg) (cut diagonally) BID (start AFTER stopping oxycodone) 07/02/19 023 Inactive start belbuca in 7 days AFTER patient stops oxycodone aspirin 81 mg tablet,delayed release RxNorm: 791831 Take 1 Tablet(s) Oral QD 07/02/19 023 Inactive dorzolamide 22.3 mg-timolol 6.8 mg/mL eye drops RxNorm: 2991684 Apply 1 Drop(s) Both eyes BID 07/02/19 23 024 Inactive latanoprost 0.005 % eye drops RxNorm: 735264 Take 1 Drop(s) Both eyes QHS every night at bedtime 07/02/19 23 023 Inactive Systane Ultra 0.4 %-0.3 % eye drops RxNorm: 793638 Apply 1 Drop(s) Both eyes QID 07/02/19 023 Inactive Lantus Solostar U-100 Insulin 100 unit/mL (3 mL) subcutaneous pen RxNorm: 150436 Take 40 Unit(s) Subcutaneous QHS every night at bedtime 07/02/19 023 Inactive oxybutynin chloride 5 mg tablet RxNorm: 906520 Administer 1 Tablet(s) Oral QHS every night at bedtime 07/02/19 23 023 Inactive Miralax 17 gram oral powder packet RxNorm: 452057 Take 1 Packet Oral QD 07/02/19 023 Inactive hydrochlorothiazide 25 mg tablet RxNorm: 711407 Take 1 Tablet(s) Oral QD 07/02/19 23 023 Inactive oxycodone 5 mg tablet RxNorm: 9690516 Take 1 Tablet(s) Oral TID then discontinue and start belbuca (d/c 10mg TID) 07/02/19 23 023 Inactive stop after 7 days duloxetine 60 mg capsule,delayed release RxNorm: 511776 Take 2 Capsule(s) Oral QD 07/02/19 23 023 Inactive Narcan 4 mg/actuation nasal spray RxNorm: 9557616 Give 1 Lynch Nasal UD as directed 1 spray contents of ONE device into nostril, call 911. May repeat once with 2nd device 07/02/19 23 023 Inactive fluticasone propionate 50 mcg/actuation nasal spray,suspension RxNorm: 6720962 Lynch 2 Lynch Nasal QD - Daily both nostrils 07/02/19 23 023 Inactive magnesium oxide 400 mg (241.3 mg magnesium) tablet RxNorm: 708431 Give 1 Tablet(s) Oral BID 07/02/19 23 023 Inactive cholecalciferol (vitamin D3) 25 mcg (1,000 unit) tablet RxNorm: 346247 Take 1 Tablet(s) Oral QAM every morning 07/02/19 23 023 Inactive oxycodone 5 mg tablet RxNorm: 7310248 Take 2 Tablet(s) Oral TID PRN 06/04/19 23 023 Inactive azithromycin 250 mg tablet RxNorm: 482347 Take Tablet(s) Oral QD 2 Tablets PO QD x 1 Day - Then 1 Tablet PO QD x 4 Days 05/10/19 023 Inactive oxycodone 5 mg tablet RxNorm: 2613115 Take 2 Tablet(s) Oral TID /difficulty breathing 05/03/19 23 023 Inactive oxycodone 5 mg tablet RxNorm: 1457450 Take 2 Tablet(s) Oral TID /difficulty breathing 03/03/20 22 022 Inactive azithromycin 250 mg tablet RxNorm: 052506 Take Tablet(s) Oral QD 2 Tablets PO QD x 1 Day - Then 1 Tablet PO QD x 4 Days 05/10/19 23 023 Inactive zolpidem 5 mg tablet RxNorm: 414254 Take 1 Tablet(s) Oral QHS every night at bedtime as needed 03/28/19 23 023 Inactive Medication Administered No Medication Administered data Results Observation Observation Code Item Item Code Result Date Service Location CBC with Differential / Platelets CBCDIFF Baso (Absolute) 0.05 x10E3/uL 08/17/19 24 Unknown CBC with Differential / Platelets CBCDIFF Basos 0.50 % 08/17/19 24 Unknown CBC with Differential / Platelets CBCDIFF Eos 2.9 % 08/17/19 24 Unknown CBC with Differential / Platelets CBCDIFF Eos (Absolute) 0.30 x10E3/uL 08/17/19 24 Unknown CBC with Differential / Platelets CBCDIFF Hematocrit 4544-3 38.5 % 08/17/19 24 Unknown CBC with Differential / Platelets CBCDIFF Hemoglobin 718-7 11.5 g/dL 08/17/19 24 Unknown CBC with Differential / Platelets CBCDIFF LYMPHOCYTES 27.0 % 08/17/19 24 Unknown CBC with Differential / Platelets CBCDIFF Lymphocytes (Absolute) 2.80 x10E3/uL 08/17/19 24 Unknown CBC with Differential / Platelets CBCDIFF MCH 29.9 pg 08/17/19 24 Unknown CBC with Differential / Platelets CBCDIFF MCHC 29.9 g/dL 08/17/19 24 Unknown CBC with Differential / Platelets CBCDIFF MCV 787-2 100.3 % 08/17/19 24 Unknown CBC with Differential / Platelets CBCDIFF Monocytes 9.9 % 08/17/19 24 Unknown CBC with Differential / Platelets CBCDIFF Monocytes (Absolute) 1.03 x10E3/uL 08/17/19 24 Unknown CBC with Differential / Platelets CBCDIFF MPV 69923-3 11.3 fL 08/17/19 24 Unknown CBC with Differential / Platelets CBCDIFF Neutrophils 59.40 % 08/17/19 24 Unknown CBC with Differential / Platelets CBCDIFF Neutrophils (Absolute) 6.15 x10E3/uL 08/17/19 24 Unknown CBC with Differential / Platelets CBCDIFF Platelets 777-3 257 x10E3/uL 08/17/19 24 Unknown CBC with Differential / Platelets CBCDIFF RBC 3.84 x10^6/UL 08/17/19 24 Unknown CBC with Differential / Platelets CBCDIFF RDW 13.2 %binding 08/17/19 24 Unknown CBC with Differential / Platelets CBCDIFF WBC 6690-2 10.36 x10E3/uL 08/17/19 Unknown Complete Metabolic Panel (CMP) CMP A/G Ratio 1.3 08/17/19 Unknown Complete Metabolic Panel (CMP) CMP Albumin 1751-7 4.2 g/dL 08/17/19 Unknown Complete Metabolic Panel (CMP) CMP Alkaline Phosphatase 126 U/L 08/17/19 Unknown Complete Metabolic Panel (CMP) CMP ALT (SGPT) 31 U/L 08/17/19 Unknown Complete Metabolic Panel (CMP) CMP AST (SGOT) 38.0 U/L 08/17/19 Unknown Complete Metabolic Panel (CMP) CMP BILIRUBIN, TOTAL 1975-2 0.5 mg/dL 08/17/19 Unknown Complete Metabolic Panel (CMP) CMP Blood Urea Nitrogen (BUN) 17 mg/dL 08/17/19 Unknown Complete Metabolic Panel (CMP) CMP BUN/CREATININE RATIO 18.48 ratio 08/17/19 Unknown Complete Metabolic Panel (CMP) CMP Calcium (Ca) 63110-0 9.7 mg/dL 08/17/19 Unknown Complete Metabolic Panel (CMP) CMP Carbon Dioxide (ECO2) 28 mmol/L 08/17/19 Unknown Complete Metabolic Panel (CMP) CMP Chloride (Cl) 2075-0 103 mmol/L 08/17/19 Unknown Complete Metabolic Panel (CMP) CMP Creatinine 2160-0 0.92 mg/dL 08/17/19 Unknown Complete Metabolic Panel (CMP) CMP eGFR 66.57 mL/min/1.7 3m2 08/17/19 Unknown Complete Metabolic Panel (CMP) CMP Globulin, Total 3.2 08/17/19 Unknown Complete Metabolic Panel (CMP) CMP Glucose 143 mg/dL 08/17/19 Unknown Complete Metabolic Panel (CMP) CMP Potassium (K) 2823-3 3.8 mmol/L 08/17/19 Unknown Complete Metabolic Panel (CMP) CMP PROTEIN, TOTAL 2885-2 7.4 g/dL 08/17/19 Unknown Complete Metabolic Panel (CMP) CMP Sodium (Na) 2951-2 139 mmol/L 08/17/19 Unknown Vitamin D, 25-Hydroxy VITAD25 Vitamin D, 25-Hydroxy 14134-5 36 ng/mL 08/17/19 Unknown T[place] T[place] 49725-3 2.48 uIU/mL 08/17/19 Unknown Hemoglobin A1c 64412-1 Hemoglobin A1c 72030-3 6.2 %A1c 08/17/19 Unknown Vitamin B12 VITAB12 Vitamin B12 2132-9 643 pg/mL Unknown Lipid Panel (LP) LIPIDPAN CHOLESTEROL, TOTAL 37519-7 141 mg/dL 08/17/19 Unknown Lipid Panel (LP) LIPIDPAN HDL CHOLESTEROL 2085-9 58.3 mg /dL 08/17/19 Unknown Lipid Panel (LP) LIPIDPAN LDL CHOLESTEROL CALCULATED 61975-8 54 08/17/19 Unknown Lipid Panel (LP) LIPIDPAN TRIGLYCERIDES 2571-8 144 mg/dL 08/17/19 Unknown Lipid Panel (LP) LIPIDPAN VLDL Cholestero l Calculated 08/17/19 Unknown PDFReport PDFReport PDFReport 08/16/19 Unknown Procedures Procedure Codes Date SYST BP LT 130 MM HG CPT-4: 3074F 08/09/2023 DIAST BP 80-89 MM HG CPT-4: 3079F 08/09/2023 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 CPT-4: 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 2023 BEHAV CHNG SMOKING 3-[address]: 2 48801810 CPT-4: 68599 06/29/2022 Vital Signs Date Vital 08/09/2023 Blood Pressure 1: 124/82 Code: 8480-6 Heart Rate 1: 84 bpm Code: 8867-4 Respiratory Rate: 16 bpm SpO2: 97% Temperature: 36.1 (C) / 97.0 (F) Reason For Visit No Reason For Visit data Encounters Encounter Performer Location Location Address Codes Date ([address]) Home or Residence Visit Est Pt - Moderate Level, 40 mins Diagnosis: Hypertension[ICD10 : I10] Diagnosis: Hypokalemia[ICD10: E87.6] Diagnosis: Type 2 diabetes mellitus with other circulatory complication, with long-term current use of insulin[ICD10: E11.59] Diagnosis: Dysuria[ICD10: R30.0] [address] [id number] CPT-4: 82024 08/09/2023 Plan of Care Planned Activity Notes Codes Status Date Patient Education: Patient M edication Summary Completed 08/09/2023 Patient Education: Influenza Complet ed 08/09/2023 Patient Education: Smoking Cessation Completed 08/09/2023 Appointment: Yesika Adams WPtel: [phone] [facility] [address] [id number] [place] Telehealth- Est Pt 08/11/2022 Referral: [facility] WPtel: [phone] [facility] [address] [id number] Referral Records Received 07/18/2022 Instructions Comment Date Rena is a resident a [place].?? Previously was seen by doctor in [place].?? First BPS visit 03/10.?? Arthritis/pain complaints and anxiety are her biggest concerns. Johnnie (in 2020). 2 sons - son Korey visits (From??[facility]).??AWV:Colonoscopy due 2024.??Labs:??- Yearly JULY (CMP, CBC with differential, A1c, Lipid panel, TSH, VitD, VitB12, urine microalbumin)- Q6mo JANUARY (BMP )- Q3mo JULY, OCT, JAN, APR, (A1c)*4.30.2023 (urine mircoalbumin creat ratio 14.94 WNL) 09/07/2023 Hypertension Currently taking:?? Amlodipine 10 mg QD.?? Aspirin 81 mg QD.?? Atorvastatin 10 mg QD.?? Potassion chloride 40 mEq QD.?? Torsemide 20 mg QD.?? Blood pressure today: at goal. 124/82 Lab work ordered at last visit was not completed by lab company. Will place orders again.?? Denies side effects of medication. No chest pain, palpitations, shortness of breath, lower extremity edema, or falls.?? Dysuria Treated for a UTI, UA came back negative after treatment with antibiotics. Continues to have intermittent symptoms. Will trial cranberry pills and monitor for further UTI like symptoms and collect UA as needed.?? Hypokalemia Currently taking: Potassium chloride 40 mEq daily.?? I will reorder labs today for review.?? Type 2 diabetes mellitus with other circulatory complication, with long-term current use of insulin Currently taking:?? Januvia 100 mg QD.?? Insulin had been discontinued prior due to hypoglycemia and Rena refusing to eat or drinking during hypoglycemia episodes.?? I will reorder lab work today since last labs were not drawn as ordered and review A1c when resulted.?? Also taking anti-hypertensives, aspirin 81 mg daily, and a statin.?? BG today: 113 4.30.2023 urine??mircoalbumin creat ratio 14.94??. 08/09/2023
--- OUTSIDE RECORDS SUMMARY | 2023-09-07 20:13 | XMS_ITS | Clinical Summary ---
Author Organization [facility] Address [place], [place] [address] Care Team Providers Care Camper Assembler Name Role Phone Sebastian Griffiths MD Primary Care Provider Unavailab [facility] [place] Unavailable Allergies Active Allergy Reactions Criticality Noted [...] Take 5 mg by mouth once daily. Active dorzolamide-timoloL (COSOPT) 2-0.5 % ophthalmic solution Place 1 Drop into both eyes 2 times daily. Active DULoxetine (CYMBALTA) 60 mg Delayed-release capsule Take 120 mg by mouth once daily. Active fluticasone (50 mcg per actuation) nasal solution (FLONASE) Inhale 2 Sprays to both nostrils once daily. Active hydroCHLOROthiazide (HCTZ) 25 mg tablet Take 25 mg by mouth once daily. Active latanoprost (XALATAN) 0.005 % ophthalmic solution Place 1 Drop into both eyes at bedtime. 08/06/2020 Active pantoprazole (PROTONIX) 40 mg delayed-release tablet Take 40 mg by mouth once daily before a meal. 09/10/2020 Active risperiDONE (RISPERDAL) 2 mg tablet Take 2 mg by mouth two times daily. 09/10/2020 Active Januvia 100 mg tablet Take 100 mg by mouth once daily. 10/22/2020 Active aspirin (ECOTRIN) 81 mg enteric coated tablet Take 81 mg by mouth once daily with a meal. Active atorvastatin (LIPITOR) 10 mg tablet Take 10 mg by mouth once daily. Active famotidine (PEPCID) 20 mg tablet Take 20 mg by mouth at bedtime. Active insulin lispro, U-100, (HumaLOG KwikPen Insulin) 100 unit/mL inpn pen Inject 0-7 units subcutaneous two times daily before meals. Product desired: HUMALOG KWIKPEN Take based on sliding scale before lunch and supper Active magnesium oxide (MAG-OX 400) 400 mg tablet Take 400 mg by mouth two times daily. Active nicotine 21 mg/24 hr (NICODERM; HABITROL) 21 mg/24 hr patch Apply 1 Patch on dry, clean, hairless skin once daily. Active torsemide (DEMADEX) 20 mg tablet Take 20 mg by mouth once daily. Active cholecalciferol (Vitamin D) 1,000 unit tablet Take 1,000 units by mouth once daily. Active artificial tears, peg 400-propylene glycol, (Systane Ultra) 0.4-0.3 % drop ophthalmic Place 1 Drop into both eyes four times daily. Active Lantus Solostar U-100 Insulin 100 unit/mL (3 mL) penIndications:Type 2 diabetes mellitus without complication, with long-term current use of insulin (HC) Inject 20 units subcutaneous before bedtime. 15 mL 08/09/2022 Active lidocaine 4 % topical patchIndications:Chr [...] you are applying Voltaren gel. 10 Patch 08/09/2022 Active diclofenac topical (VOLTAREN) 1 % gelIndications:Chron ic pain syndrome Apply 4 g topically to affected area(s) four times daily. Apply to bilateral knees or area per patient request. However, do not apply to same area where lidocaine patch is/has been in the last 24 hrs. 20 g 08/09/2022 Active melatonin 3 mg tabletIndications:Sl eep deficient Take 2 Tablets (6 mg) by mouth at bedtime if needed, may repeat once for Sleep. 60 Tablet 08/09/2022 Active acetaminophen (TYLENOL) 325 mg tabletIndications:Ch ronic pain syndrome,Acute encephalopathy Take1 tablet by mouth every 4 hours as needed for pain. Max acetaminophen dose: 4000mg in 24 hrs. 80 Tablet 08/09/2022 Active WalkerIndications:Ch ronic pain syndrome Walker with wheels,seat,hand brakes,and basket for home use. 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 Alcohol abuse 10/16/2015 07/22/2022 Arteriosclerosis [...] [place] No Known Problems Son 2 PRIYANKA Quinn Relation Name Status Comments Brother 1 Alive [...] 11/14/2020, 08/06/2020, 07/16/2020 Influenza for age 65+ 11/19/2023 03/12/2019 , 02/01/2018, 03/07/2017, Additional history exists Tetanus booster 07/19/2026 07/19/2016, 02/17/2007 Tdap Completed 02/17/2007 Pneumococcal series for age 65+ Completed 02/17/2020, 12/24/2018, 03/07/2017, Additional history exists Advance Directives Documents on File Type Date Recorded Patient Marriage Performer Expl anation POLST 05/05/2020 * Full Code (Latest Code Status on File) Date Activated Date Inactivated Comments 08/03/2022 12:45 PM 08/09/2022 6:38 PM Question Answer Comments Code Status Discussion: Reviewed Preferences * Full Code Date Activated Date Inactivated Comments 07/22/2022 8:11 PM 08/03/2022 12:45 PM Question Answer Comments Code Status Discussion: Unable to Assess Preferences, Provider to review later Care Teams Camper Assembler Relationship Specialty Start Date End Date Sebastian Griffiths MD PCP - General 09/08/20 [facility] [address], [place] [address] 08/16/22
--- OUTSIDE RECORDS SUMMARY | 2023-09-07 20:13 | XMS_ITS | CCD ---
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 Care Partition Setter Name Role Phone Eleno Justo KELLEY Primary Care Provider Nirmala vailable Unavailable Chronic Care Management Unavaila ble Summary Purpose DataExchange Insurance Providers Payer name Policy type / Coverage type Covered republican ID Effective Begin Date Effective End Date [place] Blue [place] Medicaid Blue Cross/Blue Shield [id number] 2023 Unknown Medicaid [place] Blue Cross/Blue Shield [id number] Unknown Family history Mother Diagnosis Age At Onset Glaucoma Unknown Brother Diagnosis Age At Onset Visual disturbance/blindness Unknown Glaucoma Unknown Father Diagnosis Age At Onset Stomach cancer Unknown Social History Social History Element Codes Description Effec tive Dates Tobacco history SNOMED CT: 25828623 Current every day smoker 07/01/[address]: 647058171 No Alcohol Consum ption 07/01/2022 Allergies, Adverse Reactions, Alerts Substance Reaction Codes Entered Date Inactivated Date Status Bee Sting Unknown 03/03/2022 No Inactive Date Ac tive NSAIDS Unknown 03/03/2022 No Inactive Date Ac tive PENICILLINS Unknown 03/03/2022 No Inactive Date Active losartan RxNorm: 154545 03/03/2022 No Inactive Da te Active aspirin Unknown 03/03/2022 No Inactive Date Ac tive tramadol RxNorm: 16455 03/03/2022 No Inactive Marek e Active Other: [...] Headache ICD-10: R51.9 ICD-9: 784.0 06/14/2023 Resolved intermediate (current) use of insulin ICD-10: Z79.4 06/13 [...] 024 Inactive Macrobid 100 mg capsule RxNorm: 241398 Take 1 Capsule(s) Oral BID 07/26/19 24 024 Inactive Macrobid 100 mg capsule RxNorm: 596032 Take 1 Capsule(s) Oral BID 07/26/19 24 024 Inactive nicotine 21 mg/24 hr daily transdermal patch RxNorm: 505884 Apply 1 Transdermal QD 07/19/19 24 024 Active Januvia 100 mg tablet RxNorm: 972463 Take 1 Tablet(s) Oral QD 07/18/19 24 025 Active 07/18/2023 PROACTIVE REFILL REQUEST FOR NEXT CYCLE PLEASE THANK YOU RX has/will before cycle date acetaminophen 500 mg tablet RxNorm: 253517 Take 2 Tablet(s) Oral TID 07/18/19 24 025 Active 07/18/2023 PROACTIVE REFILL REQUEST FOR NEXT CYCLE PLEASE THANK YOU RX has/will before cycle date magnesium oxide 400 mg (241.3 mg magnesium) tablet RxNorm: 175409 Take 1 Tablet(s) Oral BID 07/18/19 24 025 Active 07/18/2023 PROACTIVE REFILL REQUEST FOR NEXT CYCLE PLEASE THANK YOU RX has/will before cycle date risperidone 2 mg tablet RxNorm: 482406 Take 1 Tablet(s) Oral BID 07/18/19 24 025 Active 07/18/2023 PROACTIVE REFILL REQUEST FOR NEXT CYCLE PLEASE THANK YOU RX has/will before cycle date pantoprazole 40 mg tablet,delayed release RxNorm: 445149 Take 1 Tablet(s) Oral QAM every morning BEFORE BREAKFAST 07/18/19 24 025 Active 07/18/2023 PROACTIVE REFILL REQUEST FOR NEXT CYCLE PLEASE THANK YOU RX has/will before cycle date duloxetine 60 mg capsule,delayed release RxNorm: 667125 Take 2 Capsule(s) Oral QD 07/18/19 24 025 Active 07/18/2023 PROACTIVE REFILL REQUEST FOR NEXT CYCLE PLEASE THANK YOU RX has/will before cycle date latanoprost 0.005 % eye drops RxNorm: 759578 Take 1 Drop(s) Both eyes QHS every [...] 024 Active Banophen 25 mg capsule RxNorm: 8095541 Take 1-2 Capsule(s) Oral Q8H every 8 hours as needed for Allergies 05/24/19 24 No Stop Date Active Banophen 25 mg capsule RxNorm: 1968646 Take 1-2 Capsule(s) Oral Q8H every 8 hours as needed 05/24/19 24 024 Inactive torsemide 20 mg tablet RxNorm: 161754 Take 1 Tablet(s) Oral QAM every morning 05/22/19 24 025 Active 05/22/2023 PROACTIVE REFILL REQUEST FOR NEXT CYCLE PLEASE THANK YOU RX has/will before cycle date famotidine 20 mg tablet RxNorm: 924446 Take 1 Tablet(s) Oral QHS every night at bedtime 05/22/19 24 025 Active 05/22/2023 PROACTIVE REFILL REQUEST FOR NEXT CYCLE PLEASE THANK YOU Aspercreme (lidocaine) 4 % topical patch RxNorm: 4766462 Apply 1 Patch Topical QD (on for 12 hours, off for 12 hours) 05/15/19 24 025 Active dorzolamide 22.3 mg-timolol 6.8 mg/mL eye drops RxNorm: 0207387 Apply 1 Drop(s) Both eyes BID 04/27/19 24 025 Active Humalog KwikPen (U-100) Insulin 100 unit/mL subcutaneous RxNorm: 0821129 Inject 0-7 Unit(s) Subcutaneous Inject per sliding scale BID before lunch and dinner 04/25/19 24 024 Inactive melatonin 3 mg tablet RxNorm: 495491 Take 1 Tablet(s) Oral QHS every night at bedtime 02/29/20 23 024 Active 02/28/2023 PROACTIVE REFILL REQUEST FOR NEXT CYCLE PLEASE THANK YOU potassium chloride ER 20 mEq tablet,extended release(part/cryst) RxNorm: 2469909 Take 2 Tablet(s) Oral QD 02/29/20 23 024 Active 02/28/2023 PROACTIVE REFILL REQUEST FOR NEXT CYCLE PLEASE THANK YOU atorvastatin 10 mg tablet RxNorm: 004541 Take 1 Tablet(s) Oral QD 01/06/20 024 Active 01/05/2023 PROACTIVE REFILL REQUEST FOR NEXT CYCLE PLEASE THANK YOU fluticasone propionate 50 mcg/actuation nasal spray,suspension RxNorm: 3639649 [place] 2 [place] Nasal QD - Daily both nostrils 12/20/19 No Stop Date Active nicotine 21 mg/24 hr daily transdermal patch RxNorm: Apply 1 Transdermal QD 12/02/19 23 023 Inactive nicotine 21 mg/24 hr daily transdermal patch RxNorm: 254019 Apply 1 Transdermal QD 11/29/19 23 023 Inactive loratadine 10 mg tablet RxNorm: 304264 Take 1 Tablet(s) Oral QD as needed 11/23/19 23 024 Inactive loratadine 10 mg tablet RxNorm: 958020 Take 1 Tablet(s) Oral QD as needed 11/23/19 23 023 Inactive nicotine 21 mg/24 hr daily transdermal patch RxNorm: Apply 1 Transdermal QD 11/16/19 23 023 Inactive aspirin 81 mg tablet,delayed release RxNorm: 995261 Take 1 Tablet(s) Oral QD 11/15/19 23 024 Active 2ND REQUEST 11/11/2022 NEED KIM PLEASE THANK YOU nicotine 21 mg/24 hr daily transdermal patch RxNorm: Apply 1 Transdermal QD 11/02/19 23 023 Inactive amlodipine 10 mg tablet RxNorm: 471474 Take 1 Tablet(s) Oral QD 10/20/19 024 Active nicotine 21 mg/24 hr daily transdermal patch RxNorm: APPLY 1 PATCH ONCE DAILY 10/18/19 23 023 Inactive Pen Needle 30 gauge x 5/16 RxNorm: Use 1 Unit(s) TID Use as directed to administer insulin up to 3x daily 10/12/19 024 Inactive cholecalciferol (vitamin D3) 25 mcg (1,000 unit) tablet RxNorm: 057620 TAKE 1 TABLET BY MOUTH DAILY (1,000 UNITS) 09/14/19 024 Active 09/13/2022 PROACTIVE REFILL REQUEST FOR NEXT CYCLE PLEASE THANK YOU Systane Ultra 0.4 %-0.3 % eye drops RxNorm: 620944 Instill 1 Drop(s) Both eyes QID 09/06/19 No Stop Date Active diclofenac 1 % topical gel RxNorm: 702713 Apply 4 Gram(s) Topical QID (bilateral knees or area of pain per patient's request) 09/01/19 No Stop Date Active acetaminophen 325 mg tablet RxNorm: 424254 Take 1 Tablet(s) Oral Q4H every four hours as needed 09/01/19 No Stop Date Active Lantus Solostar U-100 Insulin 100 unit/mL (3 mL) subcutaneous pen RxNorm: 613970 Inject 20 Unit(s) Subcutaneous QHS every night at bedtime 09/01/19 024 Inactive Pen Needle 30 gauge x 5/16 RxNorm: Use as directed to administer insulin up to 3x daily 09/01/19 023 Inactive Humalog KwikPen (U-100) Insulin 100 unit/mL subcutaneous RxNorm: 7880855 Unit(s) Subcutaneous Inject per sliding scale BID before lunch and dinner 09/01/19 024 Inactive Aspercreme (lidocaine) 4 % topical patch RxNorm: 6826737 Apply 1 Patch Topical QD (on for 12 hours, off for 12 hours) 09/01/19 024 Inactive melatonin 3 mg tablet RxNorm: 485836 Take 2 Tablet(s) Oral QHS every night at bedtime as needed (may repeat once) 09/01/19 023 Inactive hydrochlorothiazide 25 mg tablet RxNorm: 647567 Take 1 Tablet(s) Oral QD 07/23/19 024 Inactive 2nd REQUEST FOR REFILLS 07-22-2022 NEED KIM PLEASE = THANK YOU Januvia 100 mg tablet RxNorm: 884540 Take 1 Tablet(s) Oral QD 07/23/19 023 Inactive 2nd REQUEST FOR REFILLS 07-22-2022 NEED KIM PLEASE = THANK YOU potassium chloride ER 10 mEq capsule,extended release RxNorm: 149341 TAKE 1 CAPSULE BY MOUTH TWICE DAILY WITH MEAL(S) 07/23/19 23 023 Inactive 2nd REQUEST FOR REFILLS 07-22-2022 NEED KIM PLEASE = THANK YOU duloxetine 60 mg capsule,delayed release RxNorm: 182472 Take 2 Capsule(s) Oral QD 07/23/19 23 023 Inactive 2nd REQUEST FOR REFILLS 07-22-2022 NEED KIM PLEASE = THANK YOU pantoprazole 40 mg tablet,delayed release RxNorm: 518397 TAKE 1 TABLET BY MOUTH EVERY MORNING BEFORE BREAKFAST 07/23/19 23 023 Inactive 2nd REQUEST FOR REFILLS 07-22-2022 NEED KIM PLEASE = THANK YOU magnesium oxide 400 mg (241.3 mg magnesium) tablet RxNorm: 462082 Take 1 Tablet(s) Oral BID 07/23/19 23 023 Inactive 2nd REQUEST FOR REFILLS 07-22-2022 NEED KIM PLEASE = THANK YOU acetaminophen 500 mg tablet RxNorm: 279152 Take 2 Tablet(s) Oral TID 07/23/19 23 023 Inactive 2nd REQUEST FOR REFILLS 07-22-2022 NEED KIM PLEASE = THANK YOU risperidone 2 mg tablet RxNorm: 986587 Take 1 Tablet(s) Oral BID 07/23/19 23 023 Inactive 2nd REQUEST FOR REFILLS 07-22-2022 NEED KIM PLEASE = THANK YOU buprenorphine HCl 2 mg sublingual tablet RxNorm: 715722 Take 1 Tablet(s) Sublingual TID 07/19/19 23 023 Inactive buprenorphine HCl 2 mg sublingual tablet RxNorm: 263774 Take 1 Tablet(s) Sublingual TID 07/19/19 23 023 Inactive oxycodone 5 mg tablet RxNorm: 5578272 Take 1 Tablet(s) Oral BID x7 days then decrease to 1 tab once daily x 7 days then d/c 07/09/19 23 023 Inactive latanoprost 0.005 % eye drops RxNorm: 847087 Take 1 Drop(s) Both eyes QHS every night at bedtime 07/07/19 23 023 Inactive buprenorphine 5 mcg/hour weekly transdermal patch RxNorm: 208843 Apply 1 Transdermal once every 7 days 07/06/19 023 Inactive zolpidem 5 mg tablet RxNorm: 025714 Take 1 Tablet(s) Oral QHS every night at bedtime 07/06/19 023 Inactive buprenorphine 5 mcg/hour weekly transdermal patch RxNorm: 126083 Apply 1 Transdermal once every 7 days 07/06/19 023 Inactive start after stops oxycodone. belbuca film not covered acetaminophen 500 mg tablet RxNorm: 348091 Take 2 Tablet(s) Oral TID 07/02/19 023 Inactive famotidine 20 mg tablet RxNorm: 340616 Give 1 Tablet(s) Oral QHS every night at bedtime 07/02/19 024 Inactive amlodipine 5 mg tablet RxNorm: 268211 Take 1 Tablet(s) Oral QD 07/02/19 023 Inactive nicotine 21 mg/24 hr daily transdermal patch RxNorm: 676903 Apply 1 Patch Transdermal QD Remove old patch prior to placing the new one 07/02/19 023 Inactive gabapentin 600 mg tablet RxNorm: 969662 Take 1 Tablet(s) Oral TID 07/02/19 023 Inactive risperidone 2 mg tablet RxNorm: 827855 Take 1 Tablet(s) Oral BID 07/02/19 023 Inactive pantoprazole 40 mg intravenous solution RxNorm: 303043 Take 1 Tablet(s) Intravenous QAM every morning 07/02/19 23 023 Inactive torsemide 20 mg tablet RxNorm: 068554 Take 1 Tablet(s) Oral QAM every morning 07/02/19 024 Inactive Januvia 100 mg tablet RxNorm: 036254 Take 1 Tablet(s) Oral QD 07/02/19 023 Inactive atorvastatin 10 mg tablet RxNorm: 354792 Take 1 Tablet(s) Oral QHS every night at bedtime 07/02/19 023 Inactive potassium chloride ER 10 mEq tablet,extended release RxNorm: 345874 Take 1 Tablet(s) Oral BID 07/02/19 23 023 Inactive Belbuca 75 mcg buccal film RxNorm: 0858007 Take 1/2 film (37.5mcg) (cut diagonally) BID (start AFTER stopping oxycodone) 07/02/19 023 Inactive start belbuca in 7 days AFTER patient stops oxycodone aspirin 81 mg tablet,delayed release RxNorm: 719831 Take 1 Tablet(s) Oral QD 07/02/19 023 Inactive dorzolamide 22.3 mg-timolol 6.8 mg/mL eye drops RxNorm: 5748337 Apply 1 Drop(s) Both eyes BID 07/02/19 23 024 Inactive latanoprost 0.005 % eye drops RxNorm: 370050 Take 1 Drop(s) Both eyes QHS every night at bedtime 07/02/19 023 Inactive Systane Ultra 0.4 %-0.3 % eye drops RxNorm: 017264 Apply 1 Drop(s) Both eyes QID 07/02/19 23 023 Inactive Lantus Solostar U-100 Insulin 100 unit/mL (3 mL) subcutaneous pen RxNorm: 641469 Take 40 Unit(s) Subcutaneous QHS every night at bedtime 07/02/19 023 Inactive oxybutynin chloride 5 mg tablet RxNorm: 540606 Administer 1 Tablet(s) Oral QHS every night at bedtime 07/02/19 23 023 Inactive Miralax 17 gram oral powder packet RxNorm: 132033 Take 1 Packet Oral QD 07/02/19 023 Inactive hydrochlorothiazide 25 mg tablet RxNorm: 939086 Take 1 Tablet(s) Oral QD 07/02/19 23 023 Inactive oxycodone 5 mg tablet RxNorm: 6221959 Take 1 Tablet(s) Oral TID then discontinue and start belbuca (d/c 10mg TID) 07/02/19 23 023 Inactive stop after 7 days duloxetine 60 mg capsule,delayed release RxNorm: 096884 Take 2 Capsule(s) Oral QD 07/02/19 23 023 Inactive Narcan 4 mg/actuation nasal spray RxNorm: 3869375 Give 1 [place] Nasal UD as directed 1 spray contents of ONE device into nostril, call 911. May repeat once with 2nd device 07/02/19 23 023 Inactive fluticasone propionate 50 mcg/actuation nasal spray,suspension RxNorm: 6328144 [place] 2 [place] Nasal QD - Daily both nostrils 07/02/19 23 023 Inactive magnesium oxide 400 mg (241.3 mg magnesium) tablet RxNorm: 767452 Give 1 Tablet(s) Oral BID 07/02/19 023 Inactive cholecalciferol (vitamin D3) 25 mcg (1,000 unit) tablet RxNorm: 346826 Take 1 Tablet(s) Oral QAM every morning 07/02/19 23 023 Inactive oxycodone 5 mg tablet RxNorm: 1814758 Take 2 Tablet(s) Oral TID PRN 06/04/19 23 023 Inactive azithromycin 250 mg tablet RxNorm: 775577 Take Tablet(s) Oral QD 2 Tablets PO QD x 1 Day - Then 1 Tablet PO QD x 4 Days 05/10/19 23 023 Inactive oxycodone 5 mg tablet RxNorm: 7753290 Take 2 Tablet(s) Oral TID /difficulty breathing 05/03/19 23 023 Inactive oxycodone 5 mg tablet RxNorm: 2553376 Take 2 Tablet(s) Oral TID /difficulty breathing 03/03/20 22 022 Inactive azithromycin 250 mg tablet RxNorm: 931117 Take Tablet(s) Oral QD 2 Tablets PO QD x 1 Day - Then 1 Tablet PO QD x 4 Days 05/10/19 23 023 Inactive zolpidem 5 mg tablet RxNorm: 876200 Take 1 Tablet(s) Oral QHS every night at bedtime as needed 03/28/19 23 023 Inactive Medication Administered No Medication Administered data Procedures Procedure Codes Date BEHAV CHNG SMOKING 3-[address]: 2 18484981 CPT-4: 71902 06/29/2022 Reason For Visit No Reason For Visit data Plan of Care Planned Activity Notes Codes Status Date Referral: [facility] WPtel: [address] [id number] [place] Referral Records Received 07/18/2022 Instructions Comment Date Rena is a resident a [facility].?? Previously was seen by doctor in [place].?? First [facility] visit 03/10.?? Arthritis/pain complaints and anxiety are her biggest concerns. Johnnie (in 2020). 2 sons - son Korey visits (From??[place]).??AWV:Colonoscopy due 2024.??Labs:??- Yearly JULY (CMP, CBC with differential, A1c, Lipid panel, TSH, VitD, VitB12, urine microalbumin)- Q6mo JANUARY (BMP )- Q3mo JULY, OCT, JAN, APR, (A1c)*4.30.2023 (urine mircoalbumin creat ratio 14.94 WNL) 09/07/2023
[2023-09-07] MEDS: 0.9 % SODIUM CHLORIDE 1000 ml 1,000 ML IV (20:15)
[2023-09-07] MEDS: LACTATED RINGERS 1000 ML 1700 ML IV (20:15)
[2023-09-07 20:18] LABS: HCO3 VBG 24 mmol/L (21-28); Lactate Sepsis w/Reflex* 1.9 mmol/L (0.5-1.9); PCO2 VBG 37 mmHG (40-50); PO2 VBG 61.7 mmHG (25-47); pH VBG 7.432 (7.32-7.43)
[2023-09-07 20:28] LABS: Basophils Percent Auto 0.1 % (0.0-3.0); Hematocrit 38.3 % (33.0-51.0); Hemoglobin* 12.4 gm/dL (12.0-16.0); Immature Granulocytes Pct Auto 0.5 %; Lymphocytes Percent Auto 6.2 % (20-44); Mean Corpuscular HGB Conc 32 gm/dL (32-36); Mean Corpuscular Hemoglobin 29 pg (26-34); Mean Corpuscular Volume 90 fL (80-100); Monocytes Percent Auto 11.2 % (0.0-11.0); Platelet Count* 231 K/uL (140-440); RDW Coefficient of Variation % 12.1 % (11.5-15.5); Red Blood Count 4.26 m/uL (4.00-5.20); White Blood Count* 22.55 K/uL (4.50-11.00)
[2023-09-07 20:35] LABS: Appearance Urine Clear (Clear); Bilirubin Urine 1+ (Negative); Blood Urine 3+ (Negative); Color Urine Dark yellow (Yellow); Glucose Urine Negative (Negative); Ketones Urine Negative (Negative); Leukocyte Esterase Urine 1+ (Negative); Nitrite Urine Positive (Negative); Protein Urine 3+ (Negative); pH Urine 8.5 (5.0-8.5)
[2023-09-07 20:36] LABS: Chloride* 103 mmol/L (96-114); Sodium* 137 mmol/L (135-149)
[2023-09-07 20:38] LABS: Anion Gap 11 mEq/L (7-15); Aspartate Amino Transferase* 46 U/L (12-35); Bilirubin Total* 3.1 mg/dL (0.1-1.5); Carbon Dioxide* 23 mmol/L (20-32); Creatinine* 1.6 mg/dL (0.5-1.5); Estimated Glomerular Filt Rate 34 ml/min
[2023-09-07 20:39] LABS: Alanine Aminotransferase* 30 U/L (4-35); Alkaline Phosphatase* 93 U/L (40-150); Blood Urea Nitrogen* 28 mg/dL (7-30); Calcium* 9.1 mg/dL (8.4-10.6); Glucose* 237 mg/dL (60-115); Total Protein* 7.5 g/dL (6.0-8.3)
[2023-09-07 20:41] LABS: Slide Review Reflex Yes
[2023-09-07 20:43] LABS: Acetaminophen* < 10.0 ug/mL (10.0-30.0); Salicylate* < 1.0 mg/dL (1.0-10); Slide Review Acceptable Review (Acceptable)
[2023-09-07 20:44] LABS: Ethanol* < 0.01 % (0.01-0.03)
[2023-09-07 20:50] LABS: Troponin I* 0.03 ng/mL (0.01-0.04)
[2023-09-07 21:11] LABS: RBC Urine >100 (0-2); WBC Urine >100 (0-5)
[2023-09-07 21:12] LABS: Bacteria Urine Many; Squamous Epithelial Cell Urine Few (None-Few)
--- NOTE | 2023-09-09 06:02 | PC.NURSE ---
in patients chart to check critical lab result received from lab at this time.
--- NOTE | 2023-09-09 15:14 | PC.NURSE ---
Pt blood cultures returning. Report from overnight RN was was that pt is . This RN confirmed that pt is after checking [facility] chart.
== END 2023-09-07 23:40 | disposition short-term general hospital (02) ==
PROVIDERS: Emergency Provider Emergency Medicine
DX: A41.9 Sepsis, unspecified organism (principal); N39.0 Urinary tract infection, site not specified; R41.82 Altered mental status, unspecified; N20.0 Calculus of kidney
CPT/HCPCS: 36415; 70450; 71275; 74177; 80053; 80143; 80179; 81001; 82077; 82803; 83605; 84484; 85025; 87040; 87086; 87186; 93005; 94761; 99285; 99291; J0743; J3370; J7030; J7050; J7120; Q9967

== ENCOUNTER 2023-09-07 23:30 | Outpatient (CLI) | payer BC, SELFPAY ==
--- OUTSIDE RECORDS SUMMARY | 2023-09-16 03:45 | XMS_ITS | Clinical Summary ---
Author Organization [employer] [facility] & [facility] Address [place], [place] [address] Care Team Providers Care Hand Edger Name Role Phone Sebastian Griffiths MD Primary Care Provider [facility] [place] Unavailable Allergies Active Allergy Reactions Criticality Noted [...] mg by mouth two times daily. Active torsemide (DEMADEX) 20 mg tablet [...] 25 mg by mouth once daily. 09/08/19 Discontinued( Pharmacist change per medication history (E-cancel not sent)) insulin lispro, U-100, (HumaLOG KwikPen Insulin) 100 unit/mL inpn pen Inject 0-7 units subcutaneous two times daily before meals. Product desired: HUMALOG KWIKPEN Take based on sliding scale before lunch and supper 09/08/19 Discontinued( Pharmacist change per medication history (E-cancel not sent)) nicotine 14 mg/24 hr (NICODERM; HABITROL) 14 mg/24 hr patch Apply 1 Patch on dry, clean, hairless skin once daily. 4 09/13/19 Lantus Solostar U-100 Insulin 100 unit/mL (3 [...] once for Sleep. 60 Tablet 3 09/08/19 Discontinued( Pharmacist change per medication history (E-cancel not sent)) WalkerIndications: Chronic pain syndrome Walker with wheels,seat,hand brakes,and basket for home use. 1 Each 3 09/08/19 24 Discontinued( Pharmacist change per medication history (E-cancel not sent)) Active Problems Problem Noted Date Diagnosed Date IRMA (acute kidney injury) 09/09/2023 Encephalopathy 09/09/2023 Metabolic acidosis 09/09/2023 Pyelonephritis 09/09/2023 Hydronephrosis with urinary obstruction due to renal calculus 09/09/2023 Septic shock 09/08/2023 Chronic hepatitis C without [...] right shoulder injury, left knee inury, cervical BLOOD TESTER reviewed 05/14/2019 Alcohol abuse 10/16/2015 07/22/2022 Arteriosclerosis [...] 03/26/2009 023 Hypertension, essential, benign 06/05/2003 07/22/2022 Resolved Problems Problem Noted Date Diagnosed Date Resolved Date Obstructive uropathy 09/09/2023 024 Encounters Date Type Department Care Team Description 09/08/2023 12:25 AM CDT - 09/08/2023 8:25 PM CDT Hospital Encounter [facility] [address] [place] [address] Casey Hi MD Jacoby, MD Jd Chao, [...] Procedure Name Priority Date/Time Associated Diagnosis Comments SCAN-RADIOLOGY REPORT 09/11/2023 12:00 AM CDT CONTINUOUS VIDEO EEG MONITORING Routine 09/08/2023 6:05 PM CDT PATHOLOGY AUTOPSY Today 09/08/2023 6:0 1 PM CDT POTASSIUM STAT 09/08/2023 5:08 PM [...] TUBE PLACEMENT STAT 09/08/2023 4:46 AM CDT URINE CULTURE STAT 09/08/2023 4:[address] ABDOMEN PELVIS STONE PROTOCOL [...] ISTAT EC8 STAT 09/08/2023 1:26 AM CDT CWS PATH REVIEW HEMATOLOGY STAT 09/08/2023 12:56 AM CDT RED CELL MORPHOLOGY STAT 09/08/2023 [...] CDT from Last 3 Months Results * SCAN-RADIOLOGY REPORT (09/11/2023 12:00 AM CDT) Anatomical Region Laterality Modality Other Narrative 09/11/2023 12:00 AM CDT Ordered by an unspecified provider. Other Clinical Staff OTHER * CONTINUOUS VIDEO EEG MONITORING (09/08/2023 6:05 PM CDT) Narrative Ariella Wheeler MD - 09/08/2023 6:05 PM CDT Ariella Wheeler MD ? 09/08/2023 ??6:16 PM [facility] [place], [address] [place], [place] ??[address] Ph: ??[phone] SPECIAL NEURODIAGNOSTIC PROCEDURE - ELECTROENCEPHALOGRAM - EEG [...] Wheeler MD .................... ??09/08/2023 ?? 6:15 PM [facility] This continuous video EEG study was completed on 09/08/23, with a total recording duration of 9 hours and 25 minutes. Lydia Chatman MD NEUROLOGY [address] RD * (ABNORMAL) LACTATE ARTERIAL (09/08/2023 5:08 PM CDT) Only the most recent of2 resultswithin the time period is included. [facility] LACTATE,ARTERI AL 28.9(H) 0.5 - 1.6 mmol/L 09/08/2023 6:15 PM CDT [facility] Blood BLOOD SPECIMEN / Unknown Non-Lab Venipuncture / Unknown 09/08/2023 5:08 PM CDT 09/08/2023 5:18 PM CDT Saary Miles DO CHEMISTRY [facility] [address] [place] [address], * (ABNORMAL) POTASSIUM (09/08/2023 5:08 PM CDT) Only the most recent of2 resultswithin the time period is included. [facility] POTASSIUM 7.0(HH) 3.5 - 5.1 mmol/L 09/08/2023 5:57 PM CDT [facility] Blood BLOOD SPECIMEN / Unknown Non-Lab Venipuncture / Unknown 09/08/2023 5:08 PM CDT 09/08/2023 5:18 PM CDT Saray Kaye Miles DO CHEMISTRY [facility] [address] [place] [address], * (ABNORMAL) ARTERIAL BLOOD GAS (09/08/2023 5:08 PM CDT) Only the most recent of3 resultswithin the time period is included. PH, ARTERIAL 6.94(LL) 7.35 - 7.45 09/08/2023 5:24 PM CDT [facility] PCO2, ARTERIAL 24(L) 32 - 45 mmHg 09/08/2023 5:24 PM CDT [facility] PO2, ARTERIAL 86 83 - 108 mmHg 09/08/2023 5:24 PM CDT [facility] HCO3, ARTERIAL 5(LL) 21 - 28 mmol/L 09/08/2023 5:24 PM CDT [facility] BASE EXCESS, ARTERIAL -26.2(L) -2.0 - 3.0 09/08/2023 5:24 PM CDT [facility] O2 SATURATION, ARTERIAL 97 94 - 98 % 09/08/2023 5:24 PM CDT [facility] INSPIRED O2 100 09/08/2023 5:24 PM CDT [facility] Comment:Unit of Measure: Lit ers (L) if <=20; Percent (%) if >20 PATIENT TEMPERATURE 36.4 Degrees C 09/08/2023 5:24 PM CDT [facility] Blood ARTERIAL BLOOD SPECIMEN / Unknown Non-Lab Venipuncture / Unknown 09/08/2023 5:08 PM CDT 09/08/2023 5:18 PM CDT Saray Kaye Jd BLAKE CHEMISTRY [facility] [address] [place] [id number], * BEDSIDE US STUDY ARCHIVE (09/08/2023 4:43 [...] MD ?? Consent: ??Consent obtained: ??Emergent situation Protection protocol: ??Patient identity confirmed: ??Hospital-assigned identification number [...] - 145 mmol/L 09/08/2023 4:19 PM CDT [facility] POTASSIUM 4.2 3.5 - 5.1 mmol/L 09/08/2023 4:19 PM CDT [facility] CHLORIDE 102 98 - 107 mmol/L 09/08/2023 4:19 PM CDT [facility] CO2,TOTAL 12(L) 22 - 29 mmol/L 09/08/2023 4:19 PM CDT [facility] ANION GAP 33(H) 5 - 18 09/08/2023 4:19 PM CDT [facility] Blood BLOOD SPECIMEN / Unknown Non-Lab Venipuncture / Unknown 09/08/2023 2:53 PM CDT 09/08/2023 3:07 PM CDT Tayo Malloy MD CHEMISTRY [facility] [address] [place] [address], * (ABNORMAL) GLUCOSE METER (09/08/2023 2:32 PM CDT) Only the most recent of4 resultswithin the time period is included. GLUCOSE METER 124(H) 65 - 100 mg/dL 09/08/2023 2:33 PM CDT [facility] Blood BLOOD SPECIMEN / Unknown 09/08/2023 2:32 PM CDT 09/08/2023 2:33 PM CDT Saray Miles DO CHEMISTRY [facility] [address] [place] [address], * ECHO TTE COMPLETE W CONTRAST (09/08/2023 1:27 PM CDT) AORTIC VALVE MEAN PG 3 mmHg EJECTION FRACTION 27 % PEAK TR VELOCITY 2.7 m/s LVEDD 4.5 cm Anatomical Region Laterality Modality Ultrasound 09/08/2023 12:2 5 PM CDT Narrative 09/08/2023 4:32 PM CDT ECHOCARDIOGRAM RENA GALVEZ ?Accession#: ?? [id number] : ?1950 73 years Study Date: ?? 09/08/2023 12:25:14 PM Gender: F ? BP: ? 92/55 mmHg Height: 167.00 cm ? BSA: ?2.04 m? ? ? Weight: 96.00 kg ?Tech: ? BMN ?Referring MD: LYDIA CHATMAN Site: ? [facility] Reading Location: [facility]W Patient Location: Inpatient. Procedure: 2D w/ Contrast, [...] documentation: 2 ml diluted Definity, lot #[id number], [facility] 2001# [id number] was administered peripherally to enhance visualization of all left ventricular segments. . This study was interpreted by an [facility] accredited facility. ??Final ?? Procedure Note Edward Jiménez MD - 09/08/2023 ECHOCARDIOGRAM REAN GALVEZ : 1950 73 years Study Date: 09/08/2023 12:25:14 PM Gender: F BP: 92/55 mmHg Height: 167.00 cm BSA: 2.04 m? ? ? Weight: 96.00 kg Tech: SUMANTHN Referring MD: LYDIA CHATMAN Site: [facility] Reading Location: ANW Patient Location: Inpatient. Procedure: 2D w/ Contrast, [...] documentation: 2 ml diluted Definity, lot #[id number], [facility] 2001#[id number] was administered peripherally to enhance visualization of allleft ventricular segments. . This study was interpreted by an [facility] accredited facility. Final Lydia Chatman MD ECHO ORD * (ABNORMAL) MRSA/SA PCR (09/08/2023 1:00 PM CDT) MRSA DNA PCR Positive( A) Negative 09/08/2023 2:58 PM CDT [facility] STAPHYLOCOCCUS AUREUS PCR Positive( A) Negative 09/08/2023 2:58 PM CDT [facility] Other SPECIMEN FROM INTERNAL NOSE / Unknown Non-Blood / Unknown 09/08/2023 1:00 PM CDT 09/08/2023 1:11 PM CDT [facility] - 09/08/2023 2:58 PM CDT A positive test result does not necessarily indicate the presence of viable organisms. It is, however, presumptive for the presence of Methicillin Resistant Staphylococcus aureus (MRSA) or Staphylococcus aureus. Hope Ontiveros MD MICROBIOLOGY Performing Organization Address [facility] de Phone Number [facility] [address] [address], [place] * EXTRA TUBE SEVILLA (09/08/2023 1:00 PM CDT) Blood BLOOD SPECIMEN / Unknown Extra Tube / Unknown 09/08/2023 1:00 PM CDT 09/08/2023 1:13 PM CDT [facility]AT[facility] Performing Organization Address [facility] de Phone Number [facility] [address] [address], [place] * (ABNORMAL) HEMOGLOBIN (09/08/2023 1:00 PM CDT) HEMOGLOBIN 9.6(L) 12.0 - 16.0 g/dL 09/08/2023 1:27 PM CDT [facility] MCV 98 80 - 100 fL 09/08/2023 1:27 PM CDT [facility] Blood BLOOD SPECIMEN / Unknown Non-Lab Venipuncture / Unknown 09/08/2023 1:00 PM CDT 09/08/2023 1:11 PM CDT Hope Ontiveros MD HEMATOLOGY Performing Organization Address [facility] de Phone Number [facility] [address] [address], [place] * (ABNORMAL) Phosphorus CRRT (09/08/2023 1:00 PM CDT) PHOSPHORUS 4.9(H) 2.5 - 4.5 mg/dL 09/08/2023 1:56 PM CDT [facility] Blood BLOOD SPECIMEN / Unknown Non-Lab Venipuncture / Unknown 09/08/2023 1:00 PM CDT 09/08/2023 1:11 PM CDT Tayo Malloy MD CHEMISTRY Performing Organization Address City/[facility] Co de Phone Number [facility] [address] [place] [address], [place] * Magnesium CRRT (09/08/2023 1:00 PM CDT) Only the most recent of2 resultswithin the time period is included. MAGNESIUM 2.2 1.6 - 2.4 mg/dL 09/08/2023 1:56 PM CDT [facility] Blood BLOOD SPECIMEN / Unknown Non-Lab Venipuncture / Unknown 09/08/2023 1:00 PM CDT 09/08/2023 1:11 PM CDT Tayo Malloy MD CHEMISTRY Performing Organization Address [facility] Co de Phone Number [facility] [address] [place] [address], [place] * (ABNORMAL) Calcium Ionized Hospital Draw Only CRRT (09/08/2023 1:00 PM CDT) Only the most recent of2 resultswithin the time period is included. CALCIUM,IONIZE D 1.08(L) 1.15 - 1.27 mmol/L 09/08/2023 1:15 PM CDT [facility] Blood BLOOD SPECIMEN / Unknown Non-Lab Venipuncture / Unknown 09/08/2023 1:00 PM CDT 09/08/2023 1:10 PM CDT Tayo Malloy MD CHEMISTRY Performing Organization Address [facility] Co de Phone Number [facility] [address] [place] [address], * (ABNORMAL) Calcium CRRT (09/08/2023 1:00 PM CDT) CALCIUM 7.9(L) 8.8 - 10.2 mg/dL 09/08/2023 1:56 PM CDT [facility] Blood BLOOD SPECIMEN / Unknown Non-Lab Venipuncture / Unknown 09/08/2023 1:00 PM CDT 09/08/2023 1:11 PM CDT Tayo Malloy MD CHEMISTRY [facility] [address] [place] [address], * CENTRAL LINE (09/08/2023 12:22 PM CDT) Only the most recent of2 resultswithin the time period is included. Narrative Saray Miles DO - 09/08/2023 12:22 PM CDT Saray Miles, DO ? 09/08/2023 12:25 PM CENTRAL LINE Date/Time: 09/08/2023 12:22 PM Performed by: Saray Miles DO Authorized by: Saray Miles DO ?? Consent: ??Consent obtained: ??Emergent situation and verbal ??Consent given by: Sister. ??Risks discussed: ??Arterial puncture, bleeding, infection and incorrect placement ??Alternatives discussed: ??No treatment, delayed treatment and alternative treatment Protection protocol: ??Patient identity confirmed: ??Arm band Pre-procedure [...] collapse. Dictated by Mert Shultz DO @ [facility] 2023 12:03PM (Electronically Signed) [email or web address] Narrative 09/08/2023 12:03 PM CDT For Patients: [...] lungcollapse. Dictated by Mert Shultz DO @ [facility]23 12:03PM (Electronically Signed) [email or web address] Saray Miles DO GENERAL IMAGING * (ABNORMAL) LACTATE VENOUS (09/08/2023 9:04 AM CDT) Only the most recent of4 resultswithin the time period is included. Pathologist [facility] LACTATE,VENOUS 12.0(H) 0.5 - 2.0 mmol/L 09/08/2023 10:37 AM CDT [facility] Blood BLOOD SPECIMEN / Unknown Non-Lab Venipuncture / Unknown 09/08/2023 9:04 AM CDT 09/08/2023 9:14 AM CDT Saray Miles DO [facility]MISTRY [facility] [address] [place] [address], * (ABNORMAL) CBC W PLT NO DIFF (09/08/2023 9:04 AM CDT) Pathologist [facility] WHITE BLOOD COUNT 8.4 4.5 - 11.0 thou/cu mm 09/08/2023 9:31 AM CDT [facility] RED BLOOD COUNT 3.20(L) 4.00 - 5.20 mil/cu mm 09/08/2023 9:31 AM CDT [facility] HEMOGLOBIN 9.3(L) 12.0 - 16.0 g/dL 09/08/2023 9:31 AM T [facility] HEMATOCRIT 30.9(L) 33.0 - 51.0 % 09/08/2023 9:31 AM CDT [facility] MCV 97 80 - 100 fL 09/08/2023 9:31 AM T [facility] MCH 29.1 26.0 - 34.0 pg 09/08/2023 9:31 AM T [facility] MCHC 30.1(L) 32.0 - 36.0 g/dL 09/08/2023 9:31 AM [facility] LAB[facility] RDW 12.6 11.5 - 15.5 % 09/08/2023 9:31 AM T [facility] PLATELET COUNT 126(L) 140 - 440 thou/cu mm 09/08/2023 9:31 AM T [facility] MPV 11.0 6.5 - 11.0 fL 09/08/2023 9:31 AM [facility] NRBC 0.2 % 09/08/2023 9:31 AM T [facility] ABS NRBC 0.0 thou /cu mm 09/08/2023 9:31 AM T [facility] Blood BLOOD SPECIMEN / Unknown Non-Lab Venipuncture / Unknown 09/08/2023 9:04 AM CDT 09/08/2023 9:14 AM CDT Saray Miles DO HEMATOLOGY [facility] [address] [place] [address], * (ABNORMAL) BASIC METABOLIC PANEL (09/08/2023 9:04 AM CDT) SODIUM 141 136 - 145 mmol/L 09/08/2023 10:03 AM [facility] POTASSIUM 3.6 3.5 - 5.1 mmol/L 09/08/2023 10:03 AM [facility] CHLORIDE 106 98 - 107 mmol/L 09/08/2023 10:03 AM T [facility] CO2,TOTAL 13(L) 22 - 29 mmol/L 09/08/2023 10:03 AM [facility] ANION GAP 22(H) 5 - 18 09/08/2023 10:03 AM T [facility] GLUCOSE 139(H) 70 - 99 mg/dL 09/08/2023 10:03 AM [facility] CALCIUM 8.0(L) 8.8 - 10.2 mg/dL 09/08/2023 10:03 AM [facility] BUN 27(H) 8 - 23 mg/dL 09/08/2023 10:03 AM [facility] CREATININE 2.18(H) 0.50 - 0.90 mg/dL 09/08/2023 10:03 AM [facility] BUN/CREAT RATIO 12 10 - 20 4 10:03 AM [facility] eGFR 24(L) >90 mL/min/1.7 3m2 09/08/2023 10:03 AM [facility] Comment:As of 2021, eG [...] 9:14 AM CDT Saray Miles DO CHEMISTRY [facility] [address] [place] [id number], * INTUBATION (09/08/2023 9:00 AM CDT) Narrative Saray Miles DO - 09/08/2023 9:00 AM CDT Saray Miles, ? 09/08/2023 ??9:03 AM INTUBATION Date/Time: 09/08/2023 [...] Saray Miles DO RESPIRATORY CARE ORD * Blood Culture (09/08/2023 6:07 AM CDT) Only the most recent of2 resultswithin the time period is included. CULTURE No Growth. 09/12/2023 7:53 AM CDT [facility] Blood BLOOD SPECIMEN / Unknown Butterfly / Unknown 09/08/2023 6:07 AM CDT 09/08/2023 6:17 AM CDT Narrative [facility] - 09/12/2023 7:53 AM CDT Low volume blood culture received; possible false negative culture. Lydia Chatman MD MICROBIOLOG Y Performing Organization Address City/[facility]/ZIP Co de Phone Number [facility] [address] [place] [address], * (ABNORMAL) CREATININE (09/08/2023 6:07 AM CDT) Pathologist [facility] eGFR 26(L) >90 mL/min/1.7 3m2 09/08/2023 7:10 AM CDT [facility] Comment:As of 2021, eG FR is calculated by the CKD-EPI creatinine equation without race adjustment. ??eGFR can be influenced by muscle mass, exercise, and diet. ??The reported eGFR is an estimation only and is only applicable if the renal function is stable. CREATININE 2.04(H) 0.50 - 0.90 mg/dL 09/08/2023 7:10 AM CDT [facility] Blood BLOOD SPECIMEN / Unknown Butterfly / Unknown 09/08/2023 6:07 AM CDT 09/08/2023 6:17 AM CDT Lydia Chatman MD CHEMISTRY Performing Organization Address City/[facility]/ZIP Co de Phone Number [facility] [address] [place] [address], * (ABNORMAL) CK TOTAL (09/08/2023 6:07 AM CDT) CK,TOTAL 1,202(H) 26 - 192 IU/L 09/08/2023 7:10 AM CDT [facility] Blood BLOOD SPECIMEN / Unknown Butterfly / Unknown 09/08/2023 6:07 AM CDT 09/08/2023 6:17 AM CDT Lydia Chatman MD CHEMISTRY [facility] [address] [place] [address], * (ABNORMAL) Hepatic Function Panel (09/08/2023 6:07 AM CDT) ALBUMIN 3.3(L) 4.0 - 4.9 g/dL 09/08/2023 7:12 AM CDT [facility] PROTEIN,TOTAL 6.5 6.0 - 8.0 g/dL 09/08/2023 7:12 AM CDT [facility] BILIRUBIN,TOTAL 2.6(H) 0.0 - 1.2 mg/dL 09/08/2023 7:12 AM CDT [facility] BILIRUBIN,DIRECT 2.2(H) 0.0 - 0.3 mg/dL 09/08/2023 7:12 AM CDT [facility] BILIRUBIN,INDIRE CT 0.4 0.2 - 0.8 mg/dL 09/08/2023 7:12 AM CDT [facility] ALK PHOSPHATASE 157(H) 35 - 104 IU/L 09/08/2023 7:12 AM CDT [facility] ALT (SGPT) 28 10 - 35 IU/L 09/08/2023 7:12 AM CDT [facility] AST (SGOT) 68(H) 10 - 35 IU/L 09/08/2023 7:12 AM CDT [facility] Blood BLOOD SPECIMEN / Unknown Butterfly / Unknown 09/08/2023 6:07 AM CDT 09/08/2023 6:17 AM CDT Lydia Chatman MD CHEMISTRY Performing Organization Address [facility] Co de Phone Number [facility] [address] [place] [address], [place] * 12 Lead EKG (09/08/2023 6:02 AM CDT) Pathologist [facility] Interpretation Sinus tachycardia Cannot rule out Anterior infarct , age undetermined Abnormal ECG When compared with ECG of 22-JUL-2022 20:43, Vent. rate has increased BY ??65 BPM Nonspecific T wave abnormality now evident in Inferior leads BEYOND NOW Ventricular Rate 151 BPM BEYOND NOW Atrial Rate 151 BPM BEYOND NOW P-R Interval 126 ms BEYOND NOW QRS Duration 74 ms BEYOND NOW QT 256 ms BEYOND NOW QTc 405 ms BEYOND NOW P [place] 10 degrees BEYOND NOW R [place] 38 degrees BEYOND NOW T [place] 34 degrees BEYOND NOW 09/08/2023 6:02 AM CDT 09/10/2023 6:44 PM CDT Lydia Chatman MD EKG ORD Performing Organization Address [facility] Co de Phone Number BEYOND NOW [place], [place] * (ABNORMAL) CBC WITH AUTO DIFFERENTIAL (09/08/2023 5:58 AM CDT) Only the most recent of2 resultswithin the time period is included. Pathologist [facility] WHITE BLOOD COUNT 3.4(L) 4.5 - 11.0 thou/cu mm 09/08/2023 8:01 AM CDT [facility] RED BLOOD COUNT 4.05 4.00 - 5.20 mil/cu mm 09/08/2023 8:01 AM CDT [facility] HEMOGLOBIN 11.8(L) 12.0 - 16.0 g/dL 09/08/2023 8:01 AM CDT [facility] HEMATOCRIT 38.7 33.0 - 51.0 % 09/08/2023 8:01 AM CDT [facility] MCV 96 80 - 100 fL 09/08/2023 8:01 AM CDT [facility] MCH 29.1 26.0 - 34.0 pg 09/08/2023 8:01 AM CDT [facility] MCHC 30.5(L) 32.0 - 36.0 g/dL 09/08/2023 8:01 AM CDT [facility] RDW 12.4 11.5 - 15.5 % 09/08/2023 8:01 AM CDT [facility] PLATELET COUNT 133(L) 140 - 440 thou/cu mm 09/08/2023 8:01 AM CDT [facility] MPV 11.4(H) 6.5 - 11.0 fL 09/08/2023 8:01 AM CDT [facility] NRBC 1.8 % 09/08/2023 8:01 AM CDT [facility] ABS NRBC 0.1 thou /cu mm 09/08/2023 8:01 AM CDT [facility] Blood BLOOD SPECIMEN / Unknown Butterfly / Unknown 09/08/2023 5:58 AM CDT 09/08/2023 6:18 AM CDT Lydia Chatman MD HEMATOLOGY [facility] [address] [place] [address], * RED CELL MORPHOLOGY (09/08/2023 5:58 AM CDT) Only the most recent of2 resultswithin the time period is included. RBC COMMENT RBC morphology appears normal RBC morphology appears normal, RBC morphology within normal limits for newborns. 09/08/2023 8:01 AM CDT [facility] LARGE PLATELETS Present 8:01 AM CDT [facility] WBC VACUOLATED GRANULOCYTES Present 09/08/2023 8:01 AM CDT [facility] Blood BLOOD SPECIMEN / Unknown Butterfly / Unknown 09/08/2023 5:58 AM CDT 09/08/2023 6:18 AM CDT Lydia Chatman MD HEMATOLOGY Performing Organization Address City/[facility]/ZIP Co de Phone Number [facility] [address] [place] [phone], * (ABNORMAL) PLATELET ESTIMATE (09/08/2023 5:58 AM CDT) Only the most recent of2 resultswithin the time period is included. PLATELET ESTIMATE Decreased (A) Adequate, No estimate 09/08/2023 8:01 AM CDT [facility] Blood BLOOD SPECIMEN / Unknown Butterfly / Unknown 09/08/2023 5:58 AM CDT 09/08/2023 6:18 AM CDT Lydia Chatman MD HEMATOLOGY Performing Organization Address [facility] Co de Phone Number [facility] [address] [place] [id number], [place] * (ABNORMAL) MANUAL DIFFERENTIAL (09/08/2023 5:58 AM CDT) Only the most recent of2 resultswithin the time period is included. % NEUTROPHILS 70.0 % 09/08/2023 8:01 AM CDT [facility] % LYMPHOCYTES 24.0 % 09/08/2023 8:01 AM CDT [facility] % MONOCYTES 1.0 % 09/08/2023 8:01 AM CDT [facility] % EOSINOPHILS 0.0 % 09/08/2023 8:01 AM CDT [facility] % BASOPHILS 0.0 % 09/08/2023 8:01 AM CDT [facility] % METAMYELOCYTES 3.0(H) <0.1 % 09/08/19 8:01 AM CDT [facility] % MYELOCYTES 2.0(H) <0.1 % 09/08/2023 8:01 AM CDT [facility] NEUTROPHILS ABSOLUTE 2.4 1.7 - 7.0 thou/cu mm 09/08/2023 8:01 AM CDT [facility] LYMPHOCYTES ABSOLUTE 0.8(L) 0.9 - 2.9 thou/cu mm 09/08/2023 8:01 AM CDT [facility] MONOCYTES ABSOLUTE 0.0 <0.9 thou/cu mm 09/08/2023 8:01 AM CDT [facility] EOSINOPHILS ABSOLUTE 0.0 <0.5 thou/cu mm 09/08/2023 8:01 AM CDT [facility] BASOPHILS ABSOLUTE 0.0 <0.3 thou/cu mm 09/08/2023 8:01 AM CDT [facility] ABSOLUTE METAMYELOCYTES 0.1(H) <=0.0 thou/cu mm 09/08/2023 8:01 AM CDT [facility] ABSOLUTE MYELOCYTES 0.1(H) <=0.0 thou/cu mm 09/08/2023 8:01 AM CDT [facility] Blood BLOOD SPECIMEN / Unknown Butterfly / Unknown 09/08/2023 5:58 AM CDT 09/08/2023 6:18 AM CDT Lydia Chatman MD HEMATOLOGY [facility] [address] [place] [address], * (ABNORMAL) Protime - INR (09/08/2023 5:58 AM CDT) INR 1.2 <1.3 09/08/2023 6:45 AM CDT [facility] PROTIME 13.0(H) 10.3 - 12.3 sec 09/08/2023 6:45 AM CDT [facility] Blood BLOOD SPECIMEN / Unknown Butterfly / Unknown 09/08/2023 5:58 AM CDT 09/08/2023 6:18 AM CDT Narrative [facility] - 09/08/2023 6:45 AM CDT ?Therapeutic Range [...] is on UFH. Lydia Chatman MD HEMATOLOGY [facility] [address] [place] [address], [place] * IR PERCUTANEOUS TUBE PLACEMENT (09/08/2023 [...] renal pelvis. The tract was dilated. 10 Ukrainian nephrostomy catheter was inserted over the wire [...] demonstrates a dilated ??right collecting system. 10 Ukrainian nephrostomy tube was placed uneventfully. Completion antegrade nephrostogram demonstrates. Impression: Successful placement of a right 10 Ukrainian nephrostomy tube using ultrasound and fluoroscopic guidance. Please contact me with any questions. Pradeep Mcneil MD Vascular & Interventional Radiology [facility] [phone] [email or web address] Casey Hi MD IR * (ABNORMAL) URINE CULTURE (09/08/2023 4:25 AM CDT) CULTURE RESULT(A) 09/09/2023 10:01 AM CDT [facility] CULTURE >100,000 CFU/mL Proteus mirabilis 09/09/2023 10:01 AM CDT [facility] Comment:Susceptibility on re quest. Urine URINE SPECIMEN / Unknown Non-Blood / Unknown 09/08/2023 4:25 AM CDT 09/08/2023 4:59 AM CDT Pradeep Mcneil MD MICROBIOLOGY [facility] [employer] [facility] [address] [place] [address], * CT ABDOMEN PELVIS STONE PROTOCOL WO [...] 7.32 - 7.43 09/08/2023 2:29 AM CDT [facility] PCO2, VENOUS 36(L) 41 - 51 mmHg 09/08/2023 2:29 AM CDT [facility] PO2, VENOUS 59(H) 35 - 40 mmHg 09/08/2023 2:29 AM CDT [facility] HCO3,VENOUS 21(L) 22 - 29 mmol/L 09/08/2023 2:29 AM CDT [facility] BASE EXCESS, VENOUS, POCT -3.3(L) -2.0 - 3.0 09/08/2023 2:29 AM CDT [facility] O2 SATURATION, VENOUS 91(H) 70 - 75 % 09/08/2023 2:29 AM CDT [facility] PATIENT TEMPERATURE 37.0 Degrees C 09/08/2023 2:29 AM CDT [facility] Blood VENOUS BLOOD SPECIMEN / Unknown Butterfly / Unknown 09/08/2023 2:17 AM CDT 09/08/2023 2:24 AM CDT Casey Hi MD CHEMISTRY Performing Organization Address [facility] Co de Phone Number [facility] [address] [place] [address], * AMMONIA (09/08/2023 2:17 AM CDT) AMMONIA 39 16 - 60 umol/L 09/08/2023 2:55 AM CDT [facility] Blood BLOOD SPECIMEN / Unknown Butterfly / Unknown 09/08/2023 2:17 AM CDT 09/08/2023 2:24 AM CDT Narrative [facility] - 09/08/2023 2:55 AM CDT 1. ??Sulfasalazine and its metabolite Sulfapyridine at therapeutic concentrations may lead to falsely low results. 2. ??Temozolomide and its metabolite MTIC may lead to falsely elevated results, and its metabolite AIC may lead to falsely low results. Casey Hi MD CHEMISTRY Performing Organization Address [facility] de Phone Number [facility] [address] [place] [address], [place] * CT HEAD BRAIN WO (09/08/2023 [...] ISTAT W [place] (09/08/2023 1:34 AM CDT) LACTATE VENOUS SCREEN ISTAT Critical(A ) <=2.0 09/08/2023 1:38 AM CDT [facility] LACTATE SCREEN VENOUS POCT 4.0(H) <=2.0 09/08/2023 1:38 AM CDT [facility] Blood BLOOD SPECIMEN / Unknown 09/08/2023 1:34 AM CDT 09/08/2023 1:38 AM CDT Narrative [facility] - 09/08/2023 1:38 AM CDT Lactate screen results of 2.1-3.9 mmol/L are reported as Intermediate. Lactate screen results of 4.0 mmol/L or greater are reported as Critical. Elevated whole blood lactate screening results >2.0 are automatically referred for confirmatory plasma lactate quantitation. Casey Hi MD LABORATORY [facility] [address] [place] [address], * (ABNORMAL) ISTAT EC8 (09/08/2023 1:26 AM CDT) GLUCOSE, POCT 252(H) 70 - 99 mg/dL 09/08/2023 1:32 AM CDT [facility] BUN, POCT 23 8 - 25 mg/dL 09/08/2023 1:32 AM CDT [facility] SODIUM, POCT 139 135 - 145 mmol/L 09/08/2023 1:32 AM CDT [facility] POTASSIUM, POCT 4.2 3.5 - 5.0 mmol/L 09/08/2023 1:32 AM CDT [facility] CHLORIDE, POCT 105 98 - 107 mmol/L 09/08/2023 1:32 AM CDT [facility] CO2,TOTAL, POCT 24 21 - 31 mmol/L 09/08/2023 1:32 AM CDT [facility] ANION GAP, POCT 15 5 - 18 09/08/2023 1:32 AM CDT [facility] PH, VENOUS, POCT 7.30(L) 7.32 - 7.42 09/08/2023 1:32 AM CDT [facility] PCO2, VENOUS, POCT 46 41 - 51 mmHg 09/08/2023 1:32 AM CDT [facility] HCO3, VENOUS, POCT 23 22 - 30 mmol/L 09/08/2023 1:32 AM CDT [facility] BASE EXCESS, VENOUS, POCT -4.0(L) -2.0 - 3.0 09/08/2023 1:32 AM CDT [facility] HEMATOCRIT, POCT 37.0 33.0 - 51.0 % 09/08/2023 1:32 AM CDT [facility] HEMOGLOBIN, POCT 12.6 12.0 - 16.0 g/dL 09/08/2023 1:32 AM CDT [facility] Blood BLOOD SPECIMEN / Unknown 09/08/2023 1:26 AM CDT 09/08/2023 1:32 AM CDT Casey Hi MD CHEMISTRY [facility] [address] [place] [address], * CWS PATH REVIEW HEMATOLOGY (09/08/2023 12:56 AM CDT) PATH COMMENT Reviewed 09/10/2023 2:28 PM CDT [facility] Comment:Reviewed by KBL on Blood BLOOD SPECIMEN / Unknown Venipuncture / Unknown 09/08/2023 12:56 AM CDT 09/08/2023 1:20 AM CDT Casey Hi MD LABORATORY [facility] [address] [place] [id number], * EXTRA TUBE [place]A ON ICE (09/08/2023 12:56 AM CDT) Blood BLOOD SPECIMEN / Unknown Venipuncture / Unknown 09/08/2023 12:56 AM CDT 09/08/2023 1:21 AM CDT Casey Hi MD LABORATORY [facility] 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
== END 2023-09-07 23:31 | disposition home or self-care (01) ==
LOC: AMB 09-16 03:40
PROVIDERS: Visit Provider Emergency Medicine
DX: N39.0 Urinary tract infection, site not specified (principal); A49.9 Bacterial infection, unspecified; R41.82 Altered mental status, unspecified; N20.0 Calculus of kidney
CPT/HCPCS: A0425; A0427